=== PATIENT | male | born 1965 | race Caucasian/White ===

== ENCOUNTER 2019-08-13 11:27 | Outpatient (CLI) | payer BC, SELFPAY ==
[2019-08-13 12:07] LABS: Influenza Control Positive
== END 2019-08-13 11:28 | disposition home or self-care (01) ==
PROVIDERS: PCP Physician Assistant; Visit Provider Physician Assistant
DX: R68.89 Other general symptoms and signs (principal)
CPT/HCPCS: 87804

== ENCOUNTER 2019-10-12 09:08 | Outpatient (CLI) | payer BC, SELFPAY ==
--- NOTE | ~2019-10-12 | CT_ITS ---
EXAMINATION: CT abdomen w con DATE: 10/12/2019 10:16 INDICATION: Unspecified abdominal pain TECHNIQUE: Computed tomography (CT) of the abdomen and pelvis was performed with 100 mL Omnipaque-350 intravenous contrast. Automated exposure control and iterative reconstruction technique were employe d. The dose-length product was 318.52 mGy-cm. COMPARISON: 09/09/2018 FINDINGS: Discoid atelectasis in the bilateral lower lobes. Heart size is normal. No pericardial or pleural eff usion. There are few tiny calcified gallstones in the dependent aspect of the otherwise normal-appear ing gallbladder. No gallbladder wall thickening or pericholecystic inflammatory change to suggest acu te cholecystitis. Liver, spleen, bilateral adrenal glands and kidneys are normal. No intra or extrahe patic biliary ductal dilation. There are several loculated peripancreatic fluid collections along the body and tail of the pancreas, the largest measuring 7.7 x 7.2 x 7.8 cm positioned along the anterio r body of the pancreas with additional 2.5 cm diameter component of the collection extending an addit ional subcentimeter along the inferior margin of the body of the stomach. There are subtle regions of increased attenuation within the fluid collection which along with the thin peripheral wall would be most consistent with walled off necrosis. There is no significant inflammatory stranding surrounding the collection to elevate suspicion for superinfection. There is homogeneous parenchymal enhancement of the pancreas. No dilation of the main pancreatic duct. The portal, splenic and superior mesenteri c veins are patent. Circumaortic left renal veins. Visualized portions of the bowels are normal. Mode rate spondylosis at the thoracolumbar junction with mild spondylosis in the more cephalad and caudal thoracic and lumbar spine respectively. IMPRESSION: 1. Multiple organized peripancreatic fluid collections, the largest with heterogeneous internal atten uation most consistent with walled off necrosis and likely sequela of gallstone pancreatitis. Cannot exclude ongoing pancreatitis and would correlate with amylase and lipase levels. 2. Cholelithiasis. Reviewed, dictated and finalized at location A. IMPRESSION: 1. Multiple organized peripancreatic fluid collections, the largest with hetero geneous internal attenuation most consistent with walled off necrosis and likel y sequela of gallstone pancreatitis. Cannot exclude ongoing pancreatitis and wo uld correlate with amylase and lipase levels. 2. Cholelithiasis.
[2019-10-12 10:06] LABS: Estimated Glomerular Filt Rate 58
== END 2019-10-12 09:09 | disposition home or self-care (01) ==
PROVIDERS: PCP Internal Medicine; Visit Provider Physician Assistant
DX: R10.9 Unspecified abdominal pain (principal); K80.20 Calculus of gallbladder without cholecystitis without obstruction; R93.5 Abnormal findings on diagnostic imaging of other abdominal regions, including retroperitoneum
CPT/HCPCS: 36415; 74160; Q9967

== ENCOUNTER 2019-10-30 16:22 | Outpatient (CLI) | payer BC, SELFPAY ==
--- NOTE | ~2019-10-30 | XR_ITS ---
EXAMINATION: XR hip BI 2V w AP pelvis EXAM DATE: 10/30/2019 17:00 INDICATION: Bilateral hip pain. TECHNIQUE: Each hip imaged independently (separate right and also left hip) crosstable lateral and ' frog-leg' and frontal projections for interpretation. Frontal projection pelvis. There is no prior study for comparison. FINDINGS: No radiographic evidence of hip avascular necrosis. There are no acute fractures or disloc ations identified. There is no subcutaneous gas. The soft tissue is unremarkable. There is mild to moderate left hip, mild right hip primary osteoarthritis. Surgical clips from bilateral inguinal he rnia repairs. Pelvis is unremarkable. IMPRESSION: Mild to moderate left, mild right hip osteoarthritis. Reviewed, dictated and finalized at location A.
--- NOTE | ~2019-10-30 | XR_ITS ---
EXAMINATION: XR knee LT 3V EXAM DATE: 10/30/2019 17:00 INDICATION: No known recent injury provided at this time. Pain of the left knee. Polyarticular joint pain. TECHNIQUE: Three projections of the left knee. There is no prior study for comparison. FINDINGS: No evidence osteochondral defect or joint body in the left knee joint. There is mild prim jasvir osteoarthritis. There are no acute fractures or dislocations identified. There is no subcutaneou s gas. The soft tissue is unremarkable. There are no radiopaque foreign bodies. No joint effusion . IMPRESSION: Mild left knee osteoarthritis. Reviewed, dictated and finalized at location A.
--- NOTE | ~2019-10-30 | XR_ITS ---
EXAMINATION: XR shoulder LT min 2V EXAM DATE: 10/30/2019 16:59 INDICATION: Left shoulder pain when lifting. No known injury. TECHNIQUE: The following left shoulder projections obtained: frontal projection with internal rotatio n, frontal projection with external rotation, Grashey, and scapular Y view (4+ views). There is no p rior study for comparison. FINDINGS: No evidence of left shoulder rotator cuff calcific tendinosis. There is mild to moderate acromioclavicular joint primary osteoarthritis. There are no acute fractures or dislocations identifi ed. There is no subcutaneous gas. The soft tissue is unremarkable. There are no radiopaque foreig n bodies. IMPRESSION: Mild to moderate left acromioclavicular joint osteoarthritis. Reviewed, dictated and finalized at location A.
--- NOTE | ~2019-10-30 | XR_ITS ---
EXAMINATION: XR knee RT 3V EXAM DATE: 10/30/2019 17:00 INDICATION: No known recent injury provided at this time. Pain of the right knee. TECHNIQUE: Three projections of the right knee. There is no prior study for comparison. FINDINGS: No evidence osteochondral defect or joint body in the right knee joint. No more than min imal right knee primary osteoarthritis. No joint effusion. There are no acute fractures or dislocatio ns identified. There is no subcutaneous gas. The soft tissue is unremarkable. There are no radiop aque foreign bodies. IMPRESSION: Minimal right hand osteoarthritis. Reviewed, dictated and finalized at location A.
--- NOTE | ~2019-10-30 | XR_ITS ---
EXAMINATION: XR shoulder RT min 2V EXAM DATE: 10/30/2019 17:00 INDICATION: No known recent injury provided at this time. Pain of the right shoulder. TECHNIQUE: The following right shoulder projections obtained: frontal projection with internal rotati on, frontal projection with external rotation, Grashey, and scapular Y view (4+ views). Correlation i s made to contralateral shoulder same date. FINDINGS: No evidence of right shoulder rotator cuff calcific tendinosis. There is mild to moderate acromioclavicular joint primary osteoarthritis. This is symmetric to the contralateral side. There are no acute fractures or dislocations identified. There is no subcutaneous gas. The soft tissue is unremarkable. There are no radiopaque foreign bodies. Unremarkable glenohumeral joint. IMPRESSION: Mild to moderate right acromioclavicular joint osteoarthritis. Reviewed, dictated and finalized at location A.
== END 2019-10-30 16:23 | disposition home or self-care (01) ==
PROVIDERS: PCP Physician Assistant; Visit Provider Physician Assistant
DX: M25.519 Pain in unspecified shoulder (principal); M25.559 Pain in unspecified hip; M25.569 Pain in unspecified knee; M16.11 Unilateral primary osteoarthritis, right hip; M17.12 Unilateral primary osteoarthritis, left knee; M19.041 Primary osteoarthritis, right hand; M19.011 Primary osteoarthritis, right shoulder; M19.012 Primary osteoarthritis, left shoulder
CPT/HCPCS: 73030; 73521; 73562

== ENCOUNTER → 2019-12-06 11:29 | Outpatient (CLI) | payer BC, SELFPAY ==
--- NOTE | ~2019-12-06 | XR_ITS ---
EXAMINATION: HAND-DOMENICO ARTHRITIS 3+VIEWS DATE: 12/06/2019 12:09 INDICATION: Unspecified osteoarthritis TECHNIQUE: Posteroanterior, lateral, and oblique views of the left and of the right hands as well as a ballcatchers view of both hands were obtained. COMPARISON: None. FINDINGS: Alignment is normal. No fracture. Polyarticular osteoarthritis which is of moderate severity at the b ilateral first interphalangeal joints and mild at the bilateral first carpal metacarpal, bilateral se cond and third metacarpophalangeal and multiple distal interphalangeal joints. No erosions to suggest an inflammatory arthritis. Soft tissues are unremarkable. IMPRESSION: 1. Polyarticular osteoarthritis, moderate severity at the bilateral first carpometacarpal joints and otherwise mild. Reviewed, dictated and finalized at location A. IMPRESSION: 1. Polyarticular osteoarthritis, moderate severity at the bilateral first carpo metacarpal joints and otherwise mild.
--- NOTE | ~2019-12-06 | XR_ITS ---
EXAMINATION: XR knee RT 3V DATE: 12/06/2019 12:09 INDICATION: Unspecified osteoarthritis, unspecified site. TECHNIQUE: 3 views of right knee were obtained. COMPARISON: Right knee radiograph 10/30/2019 FINDINGS: Bone alignment is normal. No fracture. There is mild osteoarthritis of medial and patellofe moral compartments. No knee joint effusion. IMPRESSION: 1. Mild right knee osteoarthritis. Reviewed, dictated and finalized at location A.
--- NOTE | ~2019-12-06 | XR_ITS ---
XR foot RT standing 2V DATE: 12/06/2019 12:09 INDICATION: Osteoarthritis TECHNIQUE: Weightbearing AP and lateral views of right foot COMPARISON: None FINDINGS: There is mild periarticular spurring of the distal tibia at the tibiotalar joint. There is mild osteoarthritis at the first metatarsophalangeal joint, with mild joint space narrowing and mild spurring. No fracture or dislocation, periosteal reaction or bone destruction. IMPRESSION: Osteoarthritis at the tibiotalar and first metatarsophalangeal joints Reviewed, dictated and finalized at location B. IMPRESSION: Osteoarthritis at the tibiotalar and first metatarsophalangeal join ts
--- NOTE | ~2019-12-06 | XR_ITS ---
EXAMINATION: XR knee LT 3V DATE: 12/06/2019 12:09 INDICATION: Unspecified osteoarthritis, unspecified site. TECHNIQUE: 3 views of left knee were obtained. COMPARISON: Left knee radiographs 10/30/2019 FINDINGS: Bone alignment is normal. No fracture. There is mild tricompartmental osteoarthritis. No kn ee joint effusion. IMPRESSION: 1. Mild left knee osteoarthritis. Reviewed, dictated and finalized at location A.
--- NOTE | ~2019-12-06 | XR_ITS ---
XR foot LT standing 2V DATE: 12/06/2019 12:09 INDICATION: Osteoarthritis TECHNIQUE: AP and lateral weightbearing views COMPARISON: 08/02/2016 left foot FINDINGS: There is mild osteoarthritis at the first metatarsophalangeal joint. No fracture or dislocation, periosteal reaction or bone destruction. IMPRESSION: Mild osteoarthritis at first metatarsophalangeal joint Reviewed, dictated and finalized at location B.
--- NOTE | ~2019-12-06 | XR_ITS ---
XR hip BI 2V w AP pelvis DATE: 12/06/2019 12:09 INDICATION: Bilateral hip pain TECHNIQUE: AP pelvis. AP and lateral views of each hip COMPARISON: 10/30/2019 pelvis and bilateral hips FINDINGS: Status post bilateral inguinal hernia repair. No fracture or bone destruction of the pelvis. The pubic symphysis and sacroiliac joints are intact. There is mild osteoarthritis at the hip joints, left greater than right. IMPRESSION: Mild osteoarthritis of the hip joints, left greater than right Reviewed, dictated and finalized at location B.
== END ==
PROVIDERS: PCP Physician Assistant; Visit Provider Internal Medicine
DX: M19.041 Primary osteoarthritis, right hand (principal); M19.042 Primary osteoarthritis, left hand; M16.0 Bilateral primary osteoarthritis of hip; M19.071 Primary osteoarthritis, right ankle and foot; M19.072 Primary osteoarthritis, left ankle and foot; M17.0 Bilateral primary osteoarthritis of knee
CPT/HCPCS: 73130; 73521; 73562; 73620

== ENCOUNTER 2020-02-10 15:58 | Outpatient (CLI) | payer BC, SELFPAY ==
--- NOTE | ~2020-02-10 | MR_ITS ---
EXAMINATION: MR sacroiliac jjose j wo/w con DATE: 02/10/2020 17:36 INDICATION: Unspecified osteoarthritis, unspecified site. Low back pain. Pain in the hips. TECHNIQUE: Magnetic resonance imaging (MRI) of the sacroiliac joints was performed without and with 1 7 mL MultiHance intravenous contrast. Sequences included sagittal PD-weighted FSE, coronal oblique T1 -weighted FSE, T1-weighted FS FSE, T2-weighted FS FSE, and T2-weighted FSE, axial oblique T2-weighted FS FSE, and T1-weighted FSE, and postcontrast coronal oblique and axial oblique T1-weighted FS FSE. COMPARISON: Pelvis and hip radiographs 12/06/2019, CT abdomen 10/12/2019 FINDINGS: Bone alignment is normal. No acute fracture. There is mild lumbar spondylosis. There is a c hronic right L5 pars defect. There is mild osteoarthritis of the sacroiliac joints. The prostate is m ildly enlarged. IMPRESSION: 1. Mild osteoarthritis of the sacroiliac joints. No evidence of inflammatory arthropathy. Reviewed, dictated and finalized at location A. IMPRESSION: 1. Mild osteoarthritis of the sacroiliac joints. No evidence of inflammatory ar thropathy.
--- NOTE | ~2020-02-10 | XR_ITS ---
EXAMINATION: XR chest 2V DATE: 02/10/2020 17:28 INDICATION: Dyspnea. TECHNIQUE: Frontal and lateral views of the chest were obtained. COMPARISON: Chest 2 views 09/09/2018 FINDINGS: The chest demonstrates clear lungs without pneumonia, pleural effusion, or pneumothorax. Th e heart size is normal. There is mild chronic anterior wedging of multiple lower thoracic vertebral b odies. IMPRESSION: 1. No acute cardiopulmonary disease. Reviewed, dictated and finalized at location A.
--- NOTE | ~2020-02-10 | XR_ITS ---
EXAMINATION: XR lumbar spine 2-3V DATE: 02/10/2020 17:28 INDICATION: Low back pain. TECHNIQUE: 3 views of lumbar spine were obtained. COMPARISON: CT abdomen 10/12/2019 FINDINGS: There is 9 degrees dextrocurvature of lumbar spine. There is chronic anterior wedging of T1 1 and T12 vertebral bodies. There is mildly decreased disc height at T11-T12, severely decreased disc height at T12-L1, and mildly decreased disc height at L4-L5. There is multilevel facet joint osteoar thritis, severe on the left at L5-S1. IMPRESSION: 1. Severe thoracolumbar spondylosis. Reviewed, dictated and finalized at location A.
[2020-02-10 16:30] LABS: Estimated Glomerular Filt Rate 58
== END 2020-02-10 15:59 | disposition home or self-care (01) ==
PROVIDERS: PCP Physician Assistant; Visit Provider Internal Medicine
DX: M15.9 Polyosteoarthritis, unspecified (principal); R06.00 Dyspnea, unspecified; M47.895 Other spondylosis, thoracolumbar region; M47.898 Other spondylosis, sacral and sacrococcygeal region
CPT/HCPCS: 71046; 72100; 72197; A9577

== ENCOUNTER 2020-03-13 12:35 | Outpatient (CLI) | payer BC, SELFPAY ==
--- NOTE | ~2020-03-13 | MR_ITS ---
EXAMINATION: MR thoracic spine wo con EXAM DATE: 03/13/2020 13:48 INDICATION: Thoracic pain TECHNIQUE: Multi-sequential, multiplanar MR images of the thoracic spine were obtained without contra st. Sagittal T1, T2, T2 fat saturation, axial T2 weighted images reviewed. There is no prior study for comparison. FINDINGS: There is mildly diffusely heterogeneous bone marrow signal, with scattered hemangiomas. No appreciable thoracic scoliosis. The spinal cord signal intensity and intrinsic morphology is normal. There is mild to moderate thoracic facet arthropathy. Mild scattered thoracic disc disease with sever al small protrusions not causing appreciable central canal stenosis, central canal is widely patent. Paraspinal soft tissue is unremarkable. The following levels specifically discussed: T8-9: Moderate right neural foraminal stenosis and mild left neural foraminal stenosis. T10-11: Moderate left neural foraminal stenosis. Other neural foramen have mild or no stenosis. IMPRESSION: Mild to moderate thoracic spondylosis. Reviewed, dictated and finalized at location A.
--- NOTE | ~2020-03-13 | MR_ITS ---
EXAMINATION: MR lumbar spine wo con DATE: 03/13/2020 13:48 INDICATION: Polyarticular osteoarthritis, unspecified. Low back pain. TECHNIQUE: Magnetic resonance imaging (MRI) of the lumbar spine was performed without intravenous con trast. Sequences included sagittal T2-weighted FSE, sagittal T2-weighted FS FSE, sagittal T1-weighted FSE, and axial T2-weighted FSE. COMPARISON: None FINDINGS: There is 6 degrees dextrocurvature of lumbar spine. There is mild chronic anterior wedging of T12 and L1 vertebral bodies. There is severely decreased disc height at T12-L1 and mildly decrease d disc height at L4-L5. The distal spinal cord signal intensity is normal. The conus medullaris is at T12-L1. The following disc levels are specifically discussed: T12-L1: The disc is bulging and has an annular fissure. There is mild bilateral facet joint osteoarth ritis. There is mild bilateral neural foraminal stenosis. There is mild central canal stenosis. L1-L2: The disc is bulging. There is mild bilateral facet joint osteoarthritis. There is mild bilater al neural foraminal stenosis. There is mild central canal stenosis. L2-L3: The disc does not extend beyond the endplate margin. There is severe right and moderate left f acet joint osteoarthritis. There is no neural foraminal stenosis. There is no central canal stenosis. L3-L4: The disc is mildly bulging. There is severe right and moderate left facet joint osteoarthritis . There is mild bilateral neural foraminal stenosis. There is no central canal stenosis. L4-L5: The disc is bulging and has an annular fissure. There is mild bilateral facet joint osteoarthr itis. There is moderate right and mild left neural foraminal stenosis. There is mild central canal st enosis. L5-S1: The disc does not extend beyond the endplate margin. There is moderate right and severe left f acet joint osteoarthritis. There is mild left neural foraminal stenosis. There is no central canal st enosis. IMPRESSION: 1. Severe spondylosis at T12-L1 and mild to moderate spondylosis at other levels. Reviewed, dictated and finalized at location A. IMPRESSION: 1. Severe spondylosis at T12-L1 and mild to moderate spondylosis at other level s.
== END 2020-03-13 12:36 | disposition home or self-care (01) ==
LOC: ANHIMG 12:37
PROVIDERS: PCP Internal Medicine; Visit Provider Internal Medicine
DX: M47.815 Spondylosis without myelopathy or radiculopathy, thoracolumbar region (principal); M47.817 Spondylosis without myelopathy or radiculopathy, lumbosacral region
CPT/HCPCS: 72146; 72148

== ENCOUNTER 2020-03-23 10:37 | Outpatient (CLI) | payer BC, SELFPAY ==
--- NOTE | ~2020-03-23 | NM_ITS ---
EXAMINATION: NM bone scan whole body DATE: 03/23/2020 14:12 INDICATION: Abnormal findings diagnostic imaging. TECHNIQUE: 22.28 mCi Tc-99m HDP was administered intravenously. Delayed whole-body scintigrams were obtained. COMPARISON: Thoracic and lumbar spine MR dated 03/13/2020 and chest radiograph dated 02/10/2020 FINDINGS: Band of uptake associated with severe degenerative disc disease at T12-L1 where there is prominent fi brovascular degenerative endplate changes on prior MRI. Additional likely degenerative joint centered uptake at the bilateral acromioclavicular and sternoclavicular joints as well as bilateral facet zoran nts in the mid to upper cervical spine. Additional prominent uptake associated with severe osteoarthr itis at the left L5-S1 facet joint. Mild increased uptake associated with mild costochondral hypertro phic change at the bilateral anterior first ribs. There is mild uptake along the diaphyses of the angelo ateral femurs and tibia which could be seen with hypertrophic pulmonary osteoarthropathy. No imaging for comparison. IMPRESSION: 1. Multiple foci of likely degenerative joint and disc centered uptake as detailed above. 2. Mild increased uptake along the bilateral femoral and tibial metaphyses which could be related to hypertrophic pulmonary osteoarthropathy although prior chest radiograph appeared normal. Consider rad iographs of the femur and tibia for correlation. Reviewed, dictated and finalized at location B. IMPRESSION: 1. Multiple foci of likely degenerative joint and disc centered uptake as detai led above. 2. Mild increased uptake along the bilateral femoral and tibial metaphyses whic h could be related to hypertrophic pulmonary osteoarthropathy although prior ch est radiograph appeared normal. Consider radiographs of the femur and tibia for correlation.
== END 2020-03-23 10:38 | disposition home or self-care (01) ==
PROVIDERS: PCP Physician Assistant; Visit Provider Internal Medicine
DX: R93.7 Abnormal findings on diagnostic imaging of other parts of musculoskeletal system (principal)
CPT/HCPCS: 78306; A9561

== ENCOUNTER 2020-03-24 14:02 | Outpatient (CLI) | payer SELFPAY ==
--- NOTE | ~2020-03-24 | XR_ITS ---
EXAMINATION: XR femur LT min 2V, XR femur RT min 2V, XR tibia fibula LT 2V, XR tibia fibula RT 2V DATE: 03/24/2020 14:45 INDICATION: Abnormal uptake along the bilateral femurs and tibias on prior bone scan. TECHNIQUE: 1. AP and lateral views of the left femur were obtained on overlapping proximal and distal images. 2. AP and lateral views of the left lower leg were obtained including cone-down AP view of the ankle. 3. AP and lateral views of the right femur were obtained on overlapping proximal and distal images. 4. AP and lateral views of the right lower leg were obtained including coned-down AP view of the ankl e. COMPARISON: None. FINDINGS: Normal alignment at both lower limbs from the hips through the ankles. No fracture or suspected avasc ular necrosis. No evident periosteal reaction to suggest hypertrophic pulmonary osteoarthropathy. No other suspicious lytic or blastic bone lesions. Mild nonuniform joint space narrowing at the left hip with small marginal ossified spotty femoral head consistent with mild osteoarthritis. The right hip, bilateral knee and ankle joint spaces appear relatively preserved. No knee or ankle joint effusion o n either the left or right. Postoperative changes of bilateral inguinal hernia repairs. Phlebolith in the left hemipelvis. Soft tissues are otherwise unremarkable. IMPRESSION: 1. Mild left hip osteoarthritis. No other osseous abnormality at the bilateral upper or lower legs. S pecifically no periostitis to suggest hypertrophic pulmonary osteoarthropathy. Reviewed, dictated and finalized at location B. IMPRESSION: 1. Mild left hip osteoarthritis. No other osseous abnormality at the bilateral upper or lower legs. Specifically no periostitis to suggest hypertrophic pulmon jasvir osteoarthropathy. IMPRESSION: 1. Mild left hip osteoarthritis. No other osseous abnormality at the bilateral upper or lower legs. Specifically no periostitis to suggest hypertrophic pulmon jasvir osteoarthropathy. IMPRESSION: 1. Mild left hip osteoarthritis. No other osseous abnormality at the bilateral upper or lower legs. Specifically no periostitis to suggest hypertrophic pulmon jasvir osteoarthropathy.
== END 2020-03-24 14:03 | disposition home or self-care (01) ==
PROVIDERS: PCP Physician Assistant; Visit Provider Physician Assistant
DX: R94.8 Abnormal results of function studies of other organs and systems (principal); M16.12 Unilateral primary osteoarthritis, left hip
CPT/HCPCS: 73552; 73590

== ENCOUNTER → 2020-07-20 08:46 | Outpatient (CLI) | payer OTHER, SELFPAY ==
--- NOTE | ~2020-07-20 | MR_ITS ---
EXAMINATION: MR cervical spine wo con DATE: 07/20/2020 09:42 INDICATION: Myelopathy. Neck pain. TECHNIQUE: Magnetic resonance imaging (MRI) of the cervical spine was performed without intravenous c ontrast. Sequences included sagittal T2-weighted FSE, sagittal STIR FSE, sagittal T1-weighted FSE, ax ial MERGE, and axial T2-weighted FSE. COMPARISON: None FINDINGS: There is 4 degrees levocurvature of cervicothoracic spine. There is kyphosis of cervical sp ine. Vertebral body heights are normal. There is moderately decreased disc height at C4-C5, severely decreased disc height at C5-C6, and mildly decreased disc height at C6-C7. The spinal cord signal int ensity is normal. The following disc levels are specifically discussed: C2-C3: There is a central protrusion. There is mild bilateral uncovertebral joint osteoarthritis. The re is severe bilateral facet joint osteoarthritis. There is mild bilateral neural foraminal stenosis. There is mild central canal stenosis. C3-C4: The disc does not extend beyond the endplate margin. There is mild left uncovertebral joint os teoarthritis. There is moderate right and severe left facet joint osteoarthritis. There is moderate l eft neural foraminal stenosis. There is no central canal stenosis. C4-C5: The disc is bulging. There is severe bilateral uncovertebral joint osteoarthritis. There is se gaby bilateral facet joint osteoarthritis. There is moderate bilateral neural foraminal stenosis. The re is mild central canal stenosis with ventral indentation of spinal cord. C5-C6: The disc is bulging. There is severe bilateral uncovertebral joint osteoarthritis. There is no facet joint osteoarthritis. There is moderate bilateral neural foraminal stenosis. There is mild rashard tral canal stenosis. C6-C7: There is a central protrusion. There is mild left uncovertebral joint osteoarthritis. There is severe bilateral facet joint osteoarthritis. There is mild bilateral neural foraminal stenosis. Ther e is mild central canal stenosis. C7-T1: The disc does not extend beyond the endplate margin. There is no uncovertebral joint osteoarth ritis. There is severe bilateral facet joint osteoarthritis. There is mild right neural foraminal rodolfo nosis. There is no central canal stenosis. IMPRESSION: 1. Severe cervical spondylosis. Reviewed, dictated and finalized at location A. [employer]
== END ==
PROVIDERS: PCP Physician Assistant; Visit Provider Nurse Practitioner Acute Care
DX: G95.9 Disease of spinal cord, unspecified (principal); M47.892 Other spondylosis, cervical region
CPT/HCPCS: 72141

== ENCOUNTER → 2020-07-20 09:00 | Outpatient (CLI) | payer OTHER, SELFPAY ==
--- NOTE | ~2020-07-20 | XR_ITS ---
EXAMINATION: XR shoulder LT min 2V EXAM DATE: 07/20/2020 10:00 INDICATION: No known recent injury provided at this time. Pain of the shoulders bilaterally. TECHNIQUE: The following left shoulder projections obtained: frontal projection with internal rotatio n, frontal projection with external rotation, Grashey, and axillary (4+ views). Comparison is made to prior examination from 10/30/2019. FINDINGS: No evidence of left shoulder rotator cuff calcific tendinosis. There is moderate acromio clavicular joint primary osteoarthritis. There are no acute fractures or dislocations identified. Th ere is no subcutaneous gas. The soft tissue is unremarkable. There are no radiopaque foreign bishnu s. IMPRESSION: Moderate left acromioclavicular joint osteoarthritis. Reviewed, dictated and finalized at location B. TESTER
--- NOTE | ~2020-07-20 | XR_ITS ---
EXAMINATION: XR shoulder RT min 2V EXAM DATE: 07/20/2020 10:00 INDICATION: Bilateral shoulder pain. TECHNIQUE: The following right shoulder projections obtained: frontal projection with internal rotati on, frontal projection with external rotation, Grashey, and axillary (4+ views). Comparison is made t o prior examination from 10/30/2019. FINDINGS: No evidence of right shoulder rotator cuff calcific tendinosis. There is moderate acromi oclavicular joint primary osteoarthritis. There are no acute fractures or dislocations identified. T here is no subcutaneous gas. The soft tissue is unremarkable. There are no radiopaque foreign bodi es. IMPRESSION: Moderate right acromioclavicular joint osteoarthritis. Reviewed, dictated and finalized at location B. [employer]
== END ==
PROVIDERS: PCP Physician Assistant; Visit Provider Nurse Practitioner Adult Health
DX: M19.012 Primary osteoarthritis, left shoulder (principal); M19.011 Primary osteoarthritis, right shoulder
CPT/HCPCS: 73030

== ENCOUNTER 2021-02-09 01:18 | Day surgery (SDC) | payer OTHER, SELFPAY ==
[2021-02-03 13:58] VITALS: BMI 25.4
[2021-02-09 08:11] VITALS: BP 142/105; PULSE 115; RESP 20; TEMP 36.5; O2SAT 99; BMI 24.0
[2021-02-09] MEDS: LACTATED RINGERS 1,000 ML 150 ML IV CONT (08:14)
--- NOTE | 2021-02-09 08:35 | WPDANESEPPF ---
Anes - Initial Pre Proc Eval Procedure: Operation Date: 02/09/21 09:30 Proposed Procedures p Screening Colonoscopy - Shashank Madsen MD Date/Time: 02/09/21 08:35 Surgeon: Shashank Madsen MD Pre Op Diagnosis: neoplasm screening Z12.11 Patient Data Age: 55 Gender: M Height: 1.83 m Weight: 80.3 kg Last Vital Signs Temp 97.7 F 02/09/21 08:11 Pulse 115 H 02/09/21 08:11 Resp 20 02/09/21 08:11 BP 142/105 H 02/09/21 08:11 Pulse Ox 99 02/09/21 08:11 Allergies Allergy/AdvReac Type Severity Reaction Status Date / Time amoxicillin Allergy Intermediate rash Verified 02/09/21 08:10 Penicillins Allergy Intermediate Pruritic Verified 02/09/21 08:10 rash Home Medications Medication Instructions Recorded Confirmed Type duloxetine 30 mg capsule,delayed 30 mg PO BID #60 cap 12/24/19 02/09/21 Rx release trazodone 50 mg tablet 50 mg PO .QHS PRN #90 tablet 02/27/20 02/09/21 Rx lisinopril 10 mg tablet 10 mg PO DAILY #90 tablet 07/10/20 02/09/21 Rx pantoprazole 40 mg tablet,delayed 40 mg PO QAM #90 tablet 07/10/20 02/09/21 Rx release folic acid 1 mg tablet 1 mg PO DAILY #90 tablet 08/17/20 02/09/21 Rx thiamine HCl (vitamin B1) 100 mg 100 mg PO DAILY #90 tablet 08/17/20 02/09/21 Rx tablet tizanidine 4 mg tablet See Rx Instructions PO .COMPLEX 12/21/20 02/09/21 Rx PRN #60 tablet metoprolol tartrate 25 mg PO BID 02/03/21 02/09/21 History bb-exvk-ymntz-lycopene-ginkgo 1 tablet PO DAILY 02/03/21 02/09/21 History [Daily Multiple For Men 50+] naltrexone microspheres [Vivitrol] 380 mg IM MONTHLY 02/03/21 02/09/21 History Patient hx anesthesia problems: none Family hx anesthesia problems: none PMFSH Past Medical History Medical History Acute pulmonary embolism JOSE (acute kidney injury) Angioedema (~08/2019) Bilateral hand pain Counseling on health promotion and disease prevention Dyspnea Encounter for medication management Fracture of vertebra due to osteoporosis with routine healing Generalized osteoarthritis of multiple sites GERD (gastroesophageal reflux disease) H/O blood clots H/O: HTN (hypertension) History of GI bleed Hypercholesteremia Inflammatory arthritis (~08/2019) Pancreatitis Pneumonia PUD (peptic ulcer disease) Thrombocytopenia (~08/2019) Surgical History Surgical History History of appendectomy Family History Family History Mother Hypertension Sibling Patient's brother is in good health Father Family history of pancreatic cancer Patient's father is Social History Social History Smoking packs per day: 0.5 Smoking cigarettes per day: 10.0 Years smoked: 35 Smoking pack-years: 17.50 Smoking status: Current every day smoker Tobacco type: cigarettes Second hand tobacco smoke exposure: No Alcohol intake: current Drinks per week: 1 Alcohol use details: SHOT Substance use: current Substance use type: marijuana Other substance usage details: MEDICAL CARD-DAILY FOR BACK PAIN Living arrangements: with family Additional occupation/education comments: [employer] Gender identity (if verbalized by the patient): Male Spiritual care concerns: No Anes - Eval Final PreProcedure Day of Procedure 02/09/21 08:35 Patient weight: normal Heart: regular rate and rhythm Lungs: clear to auscultation Airway: Mallampati scale class II Neurological: alert and oriented Last oral intake: >/= 8 hours ASA classification: III Emergent: no Anesthetic plan: proceed Anesthesia type and monitoring: general GIVS and standard monitoring Informed Consent: The patient's anesthetic plan and its attendant risks and benefits were discussed with the patient/family/POA. Questions wer
--- NOTE | 2021-02-09 08:58 | PM.HPGS ---
History of Present Illness History of Present Illness Consent: Risks, benefits, and alternatives have been discussed and questions answered. Patient agrees to proceed with procedure. Chief complaint: neoplasm screening Z12.11 Narrative: Garrison Norman is a 55 year old male here for first screening colonoscopy Review of Systems Constitutional: Constitutional: Denies headache(s) and Denies weakness Eyes: Eyes: Denies blurry vision ENT: Reports Normal hearing present, Denies headache(s) and Denies neck pain Cardiovascular: Cardiovascular: Denies chest pain and Denies dyspnea Respiratory: Respiratory: Denies dyspnea Gastrointestinal: Gastrointestinal: Reports no additional gastrointestinal complaints Genitourinary: Genitourinary: Denies dysuria Musculoskeletal: Musculoskeletal: Denies neck pain Integumentary/Breasts: Skin/Breast: Denies dry skin Neurologic: Reports Normal hearing present, Denies headache(s) and Denies weakness Psychiatric: Psychiatric: Denies anxiety Endocrine: Endocrine: Denies change in body appearance Hematologic/Lymphatic: Hematologic/Lymphatic: Denies easy bleeding Allergic/Immunologic: Allergic/Immunologic: Denies urticaria PMF Past Medical History Medical History (Updated 02/09/21 @ 08:59 by Shashank Madsen MD) Acute pulmonary embolism JOSE (acute kidney injury) Angioedema (~08/2019) Bilateral hand pain Colon cancer screening Counseling on health promotion and disease prevention Dyspnea Encounter for medication management Fracture of vertebra due to osteoporosis with routine healing Generalized osteoarthritis of multiple sites GERD (gastroesophageal reflux disease) H/O blood clots H/O: HTN (hypertension) History of GI bleed Hypercholesteremia Inflammatory arthritis (~08/2019) Pancreatitis Pneumonia PUD (peptic ulcer disease) Thrombocytopenia (~08/2019) Surgical History Surgical History History of appendectomy Family History Family History Mother Hypertension Sibling Patient's brother is in good health Father Family history of pancreatic cancer Patient's father is Social History Social History Smoking packs per day: 0.5 Smoking cigarettes per day: 10.0 Years smoked: 35 Smoking pack-years: 17.50 Smoking status: Current every day smoker Tobacco type: cigarettes Second hand tobacco smoke exposure: No Alcohol intake: current Drinks per week: 1 Alcohol use details: SHOT Substance use: current Substance use type: marijuana Other substance usage details: MEDICAL CARD-DAILY FOR BACK PAIN Living arrangements: with family Additional occupation/education comments: [employer] Gender identity (if verbalized by the patient): Male Spiritual care concerns: No Meds Home Medications and Allergies Home Medications Medication Instructions Recorded Confirmed Type duloxetine 30 mg capsule,delayed 30 mg PO BID #60 cap 12/24/19 02/09/21 Rx release trazodone 50 mg tablet 50 mg PO .QHS PRN #90 tablet 02/27/20 02/09/21 Rx lisinopril 10 mg tablet 10 mg PO DAILY #90 tablet 07/10/20 02/09/21 Rx pantoprazole 40 mg tablet,delayed 40 mg PO QAM #90 tablet 07/10/20 02/09/21 Rx release folic acid 1 mg tablet 1 mg PO DAILY #90 tablet 08/17/20 02/09/21 Rx thiamine HCl (vitamin B1) 100 mg 100 mg PO DAILY #90 tablet 08/17/20 02/09/21 Rx tablet tizanidine 4 mg tablet See Rx Instructions PO .COMPLEX 12/21/20 02/09/21 Rx PRN #60 tablet metoprolol tartrate 25 mg PO BID 02/03/21 02/09/21 History xe-qpyl-eikvv-lycopene-ginkgo 1 tablet PO DAILY 02/03/21 02/09/21 History [Daily Multiple For Men 50+] naltrexone microspheres [Vivitrol] 380 mg IM MONTHLY 02/03/21 02/09/21 History Allergies Allergy/AdvReac Type Severity Reaction Status D
[2021-02-09 09:37] VITALS: BP 113/89; PULSE 91; RESP 18; O2SAT 95
[2021-02-09 09:47] VITALS: BP 116/89; PULSE 79; RESP 18; O2SAT 95
[2021-02-09 09:57] VITALS: BP 134/102; PULSE 74; RESP 15; O2SAT 99
== END 2021-02-09 10:12 | disposition home or self-care (01) ==
PROVIDERS: PCP Physician Assistant; Visit Provider Internal Medicine Gastroenterology
PROC: 0DJD8ZZ Inspection of Lower Intestinal Tract, Via Natural or Artificial Opening Endoscopic (ICD-10-PCS; CPT 45378; principal; 2021-02-09 09:30)
DX: Z12.11 Encounter for screening for malignant neoplasm of colon (principal); D12.3 Benign neoplasm of transverse colon; K63.5 Polyp of colon; K64.8 Other hemorrhoids; K21.9 Gastro-esophageal reflux disease without esophagitis; I10 Essential (primary) hypertension; M19.90 Unspecified osteoarthritis, unspecified site; E78.00 Pure hypercholesterolemia, unspecified; Z87.11 Personal history of peptic ulcer disease; Z86.711 Personal history of pulmonary embolism; D69.6 Thrombocytopenia, unspecified; Z87.448 Personal history of other diseases of urinary system; Z86.718 Personal history of other venous thrombosis and embolism; F12.90 Cannabis use, unspecified, uncomplicated; Z87.891 Personal history of nicotine dependence
CPT/HCPCS: 45385; 88305; J2704; J7120

== ENCOUNTER 2021-10-20 07:55 | Outpatient (CLI) | payer OTHER, SELFPAY | END 2021-10-20 07:56 | disposition home or self-care (01) | LOC: ANHAUDASC 08:08 | PROVIDERS: PCP Physician Assistant; Visit Provider Otolaryngology | DX: H90.3 Sensorineural hearing loss, bilateral (principal) | CPT/HCPCS: 92557; 92567 ==

== ENCOUNTER 2021-11-19 01:53 | Day surgery (SDC) | payer OTHER, SELFPAY ==
[2021-11-17 10:11] VITALS: BMI 24.4
--- NOTE | 2021-11-17 10:23 | SUR.PREOP ---
Report to the Outpatient Waiting Room, entrance under the green pavilion located off [facility], at time 0800 on date 11/19/21. OR Time: 1000. - You and your visitor will be asked a series of questions to screen for COVID 19 for your protection. - Only one visitor is allowed at this time. - The patient visitor is requested to leave or wait in car when not with patient. - A mask is required within the hospital. Patients may have clear liquids (water, carbonated beverages, clear teas, apple juice) until 3 hours prior to surgery with a maximum of 20 ounces. - No food from midnight until time of surgery no clear liquids after 0700 - Infants may have breast milk until 4 hours before surgery, infant formula 6 hours prior to surgery. - Children will be allowed to drink immediately following surgery. If applicable, please bring a bottle or sippy cup to assist with drinking. Juice, water, soda, and popsicles are readily available. For infants on formula, please bring formula the day of surgery. Pacifiers are allowed. Take the following medications with a SIP of water the morning of surgery: hold morning meds Medications to discontinue per physician DR douglas called in regards to meloxicam Date to take last dose Please no make-up, nail italian, hairspray, perfume, deodorant, or body powder the day of surgery. No jewelry (including any body piercings) or valuables the day of surgery, leave them at home. Please take a shower or bath the night before, or the morning of, surgery with an antibacterial soap. Wear comfortable, loose fitting clothing. Children are encouraged to wear pajamas. - Jewelry must be removed prior to entering the operating room. Rings and piercings that are not removed may be cut off. - The hospital will not accept responsibility for valuables. - Please leave all valuables, including medications, at home the day of surgery. If you are going home after surgery, a licensed commercial trailer truck driver must drive you home. - NO public transportation without another adult. - We recommend that an adult stay with you for 24 hours following discharge. - We also recommend that you do not drive, make important decision, drink alcoholic beverages, or take any drugs that were not prescribed by your health care provider for at least 24 hours after your discharge time. For Pediatric surgeries, we recommend two adults accompany the child home (only one inside the building at this time). Follow any additional instructions given to you from your surgeon. If you or anyone in your household have experienced Covid symptoms in the past week, please notify your surgeon or the nurse liaison at the phone number below for possible testing. Telephone instructions given to patient and pt's Doris and asked if any additional questions and then verbalized understanding. Patient advised to call surgeon office or pre surgery nurse liaison [phone] if any additional questions.
--- NOTE | 2021-11-18 17:23 | PM.IMHP ---
H&P: HPI History of Present Illness Date/Time: 11/18/21 17:23 Chief Complaint: Septal deviation nasal obstruction nasal congestion turbinate hypertrophy Narrative: patient presents for planned surgical procedure no change in symptoms no change in history Review of Systems Review of Systems: All systems reviewed & are unremarkable except as noted in HPI and below PMFSH Past Medical History Medical History Acute pulmonary embolism JOSE (acute kidney injury) Angioedema (~08/2019) Bilateral hand pain Colon cancer screening Counseling on health promotion and disease prevention Dyspnea Encounter for medication management Fracture of vertebra due to osteoporosis with routine healing Generalized osteoarthritis of multiple sites GERD (gastroesophageal reflux disease) H/O blood clots H/O: HTN (hypertension) History of GI bleed Hypercholesteremia Inflammatory arthritis (~08/2019) Pancreatitis Pneumonia PUD (peptic ulcer disease) Thrombocytopenia (~08/2019) Surgical History Surgical History History of appendectomy Family History Family History Mother Hypertension Sibling Patient's brother is in good health Father Family history of pancreatic cancer Patient's father is Social History Social History Smoking packs per day: 1 Smoking cigarettes per day: 20.0 Years smoked: 35 Smoking pack-years: 35.00 Smoking status: Current every day smoker Tobacco type: cigarettes Second hand tobacco smoke exposure: No Alcohol intake: former Drinks per week: 1 Alcohol use details: SHOT Substance use: current Substance use type: marijuana Other substance usage details: MEDICAL CARD-DAILY FOR BACK PAIN Living arrangements: with family Additional occupation/education comments: [employer] Gender identity (if verbalized by the patient): Male Spiritual care concerns: No Meds Home Medications and Allergies Home Medications Medication Instructions Recorded Confirmed Type thiamine HCl (vitamin B1) 100 mg 100 mg PO DAILY #90 tabs 08/17/20 11/17/21 Rx tablet ciotxcha-eblw-wpnzc acid 400 1 tablet PO DAILY 02/03/21 11/17/21 History mcg-lycopene 600 mcg-ginkgo 120 mg tablet naltrexone microspheres 380 mg 380 mg IM MONTHLY 02/03/21 11/17/21 History intramuscular suspension,extended release (Vivitrol) lipase 10,500-protease 1 cap PO TID #90 caps 04/27/21 11/17/21 Rx 35,500-amylase 61,500 unit capsule,delayed rel (Pancreaze) duloxetine 30 mg capsule,delayed 30 mg PO BID #60 caps 08/18/21 11/17/21 Rx release (Cymbalta) pantoprazole 40 mg tablet,delayed 40 mg PO QAM #90 tabs 09/06/21 11/17/21 Rx release trazodone 50 mg tablet 50 mg PO .QHS PRN insomnia #90 tabs 09/06/21 11/17/21 Rx fenofibric acid (choline) 135 mg 135 mg PO DAILY #90 caps 09/13/21 11/17/21 Rx capsule,delayed release lisinopril 10 mg tablet 10 mg PO DAILY #90 tabs 09/15/21 11/17/21 Rx azelastine 137 mcg (0.1 %) nasal 1 spray intranasal Q12H #30 mL 10/06/21 11/17/21 Rx spray aerosol fluticasone propionate 50 1 - 2 spray intranasal BID #16 mL 10/06/21 11/17/21 Rx mcg/actuation nasal spray,suspension (Flonase Allergy Relief) meloxicam 7.5 mg tablet 7.5 mg PO DAILY 10/06/21 11/17/21 History folic acid 1 mg tablet See Rx Instructions .Route 10/28/21 11/17/21 Rx .COMPLEX #90 tabs tizanidine 4 mg tablet See Rx Instructions PO .COMPLEX 11/01/21 11/17/21 Rx PRN muscle spasticity #60 tabs Allergies Allergy/AdvReac Type Severity Reaction Status Date / Time amoxicillin Allergy Intermediate rash Verified 11/03/21 07:37 Penicillins Allergy Intermediate Pruritic Verified 11/03/21 07:37 rash Exam Narrative: normally ENT ex
[2021-11-19] VITALS (12 sets, daily range): BP systolic 120–165; BP diastolic 84–107; PULSE 68–90; RESP 11–16; TEMP 36.1–36.2; O2SAT 95–100
--- NOTE | 2021-11-19 06:23 | ECG_ITS ---
Measurements Intervals [place] Rate: 76 P: 25 UT: 150 QRS: -22 QRSD: 91 T: 29 QT: 384 QTc: 433 Interpretive Statements SINUS RHYTHM WITH SINUS ARRHYTHMIA BORDERLINE LEFT AXIS DEVIATION [QRS AXIS < -20] COMPARED TO ECG 09/09/2018 09:01:32 HEART RATE IS REDUCED PEAK TO T-WAVE ABNORMALITY IS IMPROVED Electronically Signed On 11-19-2021 16:44:41 CDT by Jack Lopes M.D.
--- NOTE | 2021-11-19 07:22 | WPDHPUPDATE1 ---
History and Physical Update Update Date/Time: 11/19/21 07:22 History and Physical has been reviewed, including an updated exam of the patient. There are NO changes in the patient's condition. Risks, benefits, and alternatives have been discussed and questions answered. Patient agrees to proceed with procedure.
[2021-11-19] MEDS: ACETAMINOPHEN 500 MG TABLET 1000 MG PO (07:54)
[2021-11-19] MEDS: LACTATED RINGERS 1,000 ML 30 ML IV CONT ×2 (08:02→11:35)
--- NOTE | 2021-11-19 08:09 | WPDANESEPPF ---
Anes - Initial Pre Proc Eval Procedure: Operation Date: 11/19/21 09:00 Proposed Procedures p Bilateral Inferior Turbinectomy with Outfracture, - Andrade Schwarz MD s Septoplasty - Andrade Schwarz MD Date/Time: 11/19/21 08:09 Surgeon: Andrade Schwarz MD Pre Op Diagnosis: septal deviation, turbinate hypertrophy Patient Data Age: 56 Gender: M Height: 1.83 m Weight: 83.18 kg Last Vital Signs Temp 36.1 C L 11/19/21 07:25 Pulse 71 11/19/21 07:25 Resp 16 11/19/21 07:25 BP 120/84 11/19/21 07:25 Pulse Ox 100 11/19/21 07:25 O2 Del Method Room Air 11/19/21 07:25 Allergies Allergy/AdvReac Type Severity Reaction Status Date / Time amoxicillin Allergy Intermediate rash Verified 11/19/21 07:48 Penicillins Allergy Intermediate Pruritic Verified 11/19/21 07:48 rash Home Medications Medication Instructions Recorded Confirmed Type thiamine HCl (vitamin B1) 100 mg 100 mg PO DAILY #90 tabs 08/17/20 11/19/21 Rx tablet lvtlydtk-edgi-kysoj acid 400 1 tablet PO DAILY 02/03/21 11/19/21 History mcg-lycopene 600 mcg-ginkgo 120 mg tablet naltrexone microspheres 380 mg 380 mg IM MONTHLY 02/03/21 11/19/21 History intramuscular suspension,extended release (Vivitrol) lipase 10,500-protease 1 cap PO TID #90 caps 04/27/21 11/19/21 Rx 35,500-amylase 61,500 unit capsule,delayed rel (Pancreaze) duloxetine 30 mg capsule,delayed 30 mg PO BID #60 caps 08/18/21 11/19/21 Rx release (Cymbalta) pantoprazole 40 mg tablet,delayed 40 mg PO QAM #90 tabs 09/06/21 11/19/21 Rx release trazodone 50 mg tablet 50 mg PO .QHS PRN insomnia #90 tabs 09/06/21 11/19/21 Rx fenofibric acid (choline) 135 mg 135 mg PO DAILY #90 caps 09/13/21 11/19/21 Rx capsule,delayed release lisinopril 10 mg tablet 10 mg PO DAILY #90 tabs 09/15/21 11/19/21 Rx azelastine 137 mcg (0.1 %) nasal 1 spray intranasal Q12H #30 mL 10/06/21 11/19/21 Rx spray aerosol fluticasone propionate 50 1 - 2 spray intranasal BID #16 mL 10/06/21 11/19/21 Rx mcg/actuation nasal spray,suspension (Flonase Allergy Relief) meloxicam 7.5 mg tablet 7.5 mg PO DAILY 10/06/21 11/19/21 History folic acid 1 mg tablet See Rx Instructions .Route 10/28/21 11/17/21 Rx .COMPLEX #90 tabs tizanidine 4 mg tablet See Rx Instructions PO .COMPLEX 11/01/21 11/19/21 Rx PRN muscle spasticity #60 tabs Patient hx anesthesia problems: none Family hx anesthesia problems: none Results Review: All pre-operative results and documents have been reviewed as part of the pre-operative evaluation. [facility] Past Medical History Medical History Acute pulmonary embolism JOSE (acute kidney injury) Angioedema (~08/2019) Bilateral hand pain Colon cancer screening Counseling on health promotion and disease prevention Dyspnea Encounter for medication management Fracture of vertebra due to osteoporosis with routine healing Generalized osteoarthritis of multiple sites GERD (gastroesophageal reflux disease) H/O blood clots H/O: HTN (hypertension) History of GI bleed Hypercholesteremia Inflammatory arthritis (~08/2019) Pancreatitis Pneumonia PUD (peptic ulcer disease) Thrombocytopenia (~08/2019) Surgical History Surgical History History of appendectomy Family History Family History Mother Hypertension Sibling Patient's brother is in good health Father Family history of pancreatic cancer Patient's father is Social History Social History Smoking packs per day: 1 Smoking cigarettes per day: 20.0 Years smoked: 35 Smoking pack-years: 35.00 Smoking status: Current every day smoker Tobacco type: cigarettes Second hand tobacco smoke exposure: No Alcohol intake: former Drinks per week: 1 Alcohol use de
[2021-11-19] MEDS: ceFAZolin 2 GM/D5W 50 ML 2 GM/50 ML BAG IVPB (09:41)
[2021-11-19] MEDS: OXYMETAZOLINE HCL 0.05% NAS 15 ML BTL (*BKC) 1 SPRAY NASAL (09:51)
[2021-11-19] MEDS: LIDO 1%/EPINEPHRINE/PF 1:200,000 30 ML VIAL 10 ML XX (10:55)
[2021-11-19] MEDS: MUPIROCIN 2% OINT 22 GM TUBE 1 APPLIC EACH NARE (11:00)
[2021-11-19] MEDS: fentaNYL CITRATE INJ (*CRX) 100 MCG/2 ML VIAL 25 MCG IV PUSH ×8 (11:23→12:00)
[2021-11-19] MEDS: ONDANSETRON INJ 4 MG/2 ML VIAL IV PUSH (11:33)
--- NOTE | 2021-11-19 11:39 | W.PM.PROC2 ---
Procedure Note - Detailed Date of Procedure 11/19/21 Pre-op Diagnosis septal deviation, turbinate hypertrophy, nasal obstruction, nasal congestion Post-op Diagnosis Same Procedure Performed Endoscopic assisted septoplasty turbinate reduction with outfracture Surgeon Andrade Schwarz MD Anesthesia General Indications See above Findings Severely deviated leftward septum duplicated the patient still has normal cartilage following procedure. Turbinates hypertrophied largely bony outfractured mulberry tips as well burned back. Description of Procedure Patient identified consent verified. Patient brought operating room. Time-out performed. General anesthesia induced. Endotracheal tube secured and patient is very taped left lower lip. Patient prepped and draped for for mentioned procedure. Second time-out performed. Afrin-soaked pledgets placed let sit for 5 minutes then removed. 0 degree endoscope utilized tylor Naik 10 cc 1% lidocaine 1 100,000 parts epinephrine injected into the submucoperichondrial plane the bilateral septum was all anterior heads of inferior turbinates. Left-sided [place] incision made with 15 blade. Left mucoperichondrial flap septal flap elevated with 7 [place] suction. Osteotome utilized to cross over to the right side at this point was noted that the patient had [place] septum which was straight and duplicated cartilage likely from fractures deviated to the left. Duplication removed with osteotome. Nasal passage much more straight. Jimmy incision closed with 2 interrupted 5 0 fast gut sutures. Turbinates reduced in the submucoperichondrial plane bilaterally with middle microdebrider with 2 mm turbinate blade. Then outfractured with Richardson elevator. [place] tips cauterized with suction Bovie electrocautery at a setting of 10. Bilateral nasal passages suction to the posterior choana. Jesus splints placed sutured anteriorly using a 3-0 mattressed nylon suture. I performed all dictated portions of the procedure blood loss about 10 cc. No complications. Care the patient given Anesthesiology. Taken to PACU. Estimated Blood Loss 10 Drains No Packing No Pathology None sent Complications No immediate complications Condition Stable Disposition PACU
[2021-11-19] MEDS: HYDROmorphone HCL INJ (*CRX) 1 MG/ML SYR 0.5 MG IV PUSH ×4 (12:21→13:34)
== END 2021-11-19 13:50 | disposition home or self-care (01) ==
PROVIDERS: PCP Physician Assistant; Visit Provider Otolaryngology
PROC: (CPT 30520; principal; 2021-11-19 09:00)
PROC: (CPT 30520; 2021-11-19 09:00)
DX: J34.2 Deviated nasal septum (principal); J34.3 Hypertrophy of nasal turbinates; R09.81 Nasal congestion; J34.89 Other specified disorders of nose and nasal sinuses; I10 Essential (primary) hypertension; K21.9 Gastro-esophageal reflux disease without esophagitis; E78.00 Pure hypercholesterolemia, unspecified; K27.9 Peptic ulcer, site unspecified, unspecified as acute or chronic, without hemorrhage or perforation; F17.210 Nicotine dependence, cigarettes, uncomplicated; F12.90 Cannabis use, unspecified, uncomplicated
CPT/HCPCS: 30520; 30140; 93005; A9270; J0330; J0690; J1100; J1170; J2250; J2405; J2704; J3010; J7120

== ENCOUNTER 2022-05-21 12:05 | Emergency (ER) | payer OTHER, SELFPAY ==
[2022-05-21 12:13] VITALS: BP 107/74; PULSE 124; RESP 16; TEMP 36.9; O2SAT 99
--- NOTE | 2022-05-21 13:12 | ED.URI ---
HPI - URI/Sore Throat General Chief Complaint: Upper Respiratory Infection Stated Complaint: Cough/Sinus Time Seen by Provider: 05/21/22 13:12 Source: patient, RN notes reviewed and old records reviewed Mode of arrival: ambulatory Limitations: no limitations History of Present Illness HPI Narrative: 56-year-old male presents to the [facility] with complaints of cough and sinus pain and pressure for the last 2-3 weeks. Had been using Mucinex without relief. Worse over the last couple of days cough has now become productive. Denies fevers, chest pain, abdominal pain Related Data Home Medications Medication Instructions Recorded Confirmed dkptnbnp-[id number] acid 400 1 tablet PO DAILY 02/03/21 11/23/21 mcg-lycopene 600 mcg-ginkgo 120 mg tablet naltrexone microspheres 380 mg 380 mg IM MONTHLY 02/03/21 11/23/21 intramuscular suspension,extended release (Vivitrol) meloxicam 7.5 mg tablet 7.5 mg PO DAILY 10/06/21 11/23/21 Allergies Allergy/AdvReac Type Severity Reaction Status Date / Time amoxicillin Allergy Intermediate rash Verified 05/21/22 13:40 Penicillins Allergy Intermediate Pruritic Verified 05/21/22 13:40 rash Review of Systems Review of Systems: All systems reviewed & are unremarkable except as noted in HPI and below Constitutional: Constitutional: Reports no additional constitutional complaints Eyes: Eyes: Reports no additional eye complaints ENT: Reports as per HPI and Reports nasal congestion Cardiovascular: Cardiovascular: Reports no additional cardiovascular complaints, Denies chest pain and Denies dyspnea Respiratory: Respiratory: Reports as per HPI, Denies chest congestion, Reports cough and Denies dyspnea Gastrointestinal: Gastrointestinal: Reports no additional gastrointestinal complaints, Denies abdominal pain, Denies nausea and Denies vomiting Musculoskeletal: Musculoskeletal: Reports no additional musculoskeletal complaints Integumentary/Breasts: Skin/Breast: Reports system reviewed and no additional complaints, except as docu Neurologic: Reports system reviewed and no additional complaints, except as documented Psychiatric: Psychiatric: Reports no additional psychiatric complaints Allergic/Immunologic: Allergic/Immunologic: Reports no additional allergic/immunologic complaints PMFSH Past Medical History Medical History Acute pulmonary embolism JOSE (acute kidney injury) Angioedema (~08/2019) Bilateral hand pain Colon cancer screening Counseling on health promotion and disease prevention Dyspnea Encounter for medication management Fracture of vertebra due to osteoporosis with routine healing Generalized osteoarthritis of multiple sites GERD (gastroesophageal reflux disease) H/O blood clots H/O: HTN (hypertension) History of GI bleed Hypercholesteremia Inflammatory arthritis (~08/2019) Pancreatitis Pneumonia PUD (peptic ulcer disease) Thrombocytopenia (~08/2019) Surgical History Surgical History History of appendectomy Family History Family History Mother Hypertension Sibling Patient's brother is in good health Father Family history of pancreatic cancer Patient's father is Social History Social History Smoking packs per day: 1 Smoking cigarettes per day: 20.0 Years smoked: 35 Smoking pack-years: 35.00 Smoking status: Current every day smoker Tobacco type: cigarettes Second hand tobacco smoke exposure: No Alcohol intake: former Drinks per week: 1 Alcohol use details: SHOT Substance use: current Substance use type: marijuana Other substance usage details: MEDICAL CARD-DAILY FOR BACK PAIN Additional occupation/education comments: [employer] Gender identity (if verbalized by the patient)
== END 2022-05-21 13:28 | disposition home or self-care (01) ==
PROVIDERS: Emergency Provider Nurse Practitioner; PCP Physician Assistant
DX: J32.9 Chronic sinusitis, unspecified (principal); J40 Bronchitis, not specified as acute or chronic; F17.210 Nicotine dependence, cigarettes, uncomplicated; Z86.711 Personal history of pulmonary embolism; K21.9 Gastro-esophageal reflux disease without esophagitis; I10 Essential (primary) hypertension; E78.00 Pure hypercholesterolemia, unspecified; M13.80 Other specified arthritis, unspecified site; Z86.2 Personal history of diseases of the blood and blood-forming organs and certain disorders involving the immune mechanism
CPT/HCPCS: 99213; G0463

== ENCOUNTER 2022-07-13 14:29 | Outpatient (CLI) | payer OTHER, SELFPAY ==
--- NOTE | ~2022-07-13 | XR_ITS ---
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 . COMPARISON: 07/20/2020. FINDINGS: Normal mineralization. No fracture or dislocation. No lytic or blastic lesion. Moderate AC joint hypertrophy. No erosion or periosteal change. Soft tissues within normal limits. IMPRESSION: Moderate right acromioclavicular joint osteoarthritis. Reviewed, dictated and finalized at location [facility]
== END 2022-07-13 14:30 ==
LOC: MICIMG 14:31
PROVIDERS: PCP Physician Assistant; Visit Provider Physician Assistant
DX: Q74.0 Other congenital malformations of upper limb(s), including shoulder girdle (principal); M19.011 Primary osteoarthritis, right shoulder
CPT/HCPCS: 73000

== ENCOUNTER 2022-09-02 16:30 | Outpatient (CLI) | payer MEDICARE, SELFPAY ==
--- NOTE | ~2022-09-02 | MR_ITS ---
MRI of the lumbar spine Clinical History: Radiculopathy Technique: Axial T2-weighted images, and sagittal T1-weighted, T2-weighted, and T2 fat-sat images wer e acquired. Findings: No fracture or subluxation of the lumbar spine seen. Vertebral bodies maintain normal heigh t and alignment. No bone marrow signal abnormality evident. At L1-L2, there is mild facet arthropathy. No significant disc bulge or herniation. No spinal canal s tenosis or definite neural foraminal narrowing. At L2-L3, there is facet arthropathy without disc bulge or herniation. No spinal canal stenosis or ne ural foraminal narrowing. At L3-L4, there is facet arthropathy without definite disc bulge or herniation. No spinal canal steno sis. No definite neural foraminal narrowing. At L4-L5, there is minimal disc bulge with minimal facet joint degenerative change. No spinal canal s tenosis. There is moderate to advanced right neural foraminal narrowing and minimal left neural caitie inal narrowing. At L5-S1, there is facet arthropathy. No disc bulge or herniation. No spinal canal stenosis or neural foraminal narrowing. Paravertebral soft tissues are unremarkable. Impression: Mild degenerative spondylosis, as detailed above, probably worst at L4-L5. Reviewed, dictated and finalized at [facility]. Impression: Mild degenerative spondylosis, as detailed above, probably worst at L4-L5.
== END 2022-09-02 16:31 ==
LOC: MICIMG 16:31
PROVIDERS: PCP Internal Medicine; Visit Provider Nurse Practitioner Family
DX: M47.26 Other spondylosis with radiculopathy, lumbar region (principal)
CPT/HCPCS: 72148

== ENCOUNTER 2022-09-13 08:49 | Outpatient (CLI) | payer MEDICARE, SELFPAY ==
--- NOTE | ~2022-09-13 | MR_ITS ---
MRI of the cervical spine Clinical History: Cervicalgia Technique: Axial T2-weighted and gradient images, and sagittal T1-weighted, T2-weighted, and STIR olamide ges were acquired. Findings: There is reversal of the normal cervical lordosis. No fracture or subluxation evident. No s uspicious bone marrow signal abnormality seen. At C2-C3, there is minimal central disc protrusion. There is mild facet arthropathy bilaterally. No s laura canal stenosis, cord compression, or neural foraminal narrowing. At C3-C4, there is no significant disc bulge or herniation. There is facet arthropathy bilaterally, l eft worse than right. There is left neural foraminal narrowing. Right neural foramen preserved. No ce ntral canal stenosis or cord compression. At C4-C5, there is mild disc osteophyte complex. There is mild canal stenosis but no nicole cord compr ession. There is probable bilateral neural foraminal narrowing, right worse than left. At C5-C6, there is minimal disc osteophyte complex. No nicole spinal canal stenosis or cord compressio n. There is probable bilateral neural foraminal narrowing. At C6-C7, there is no disc bulge or herniation. No spinal canal stenosis, cord compression, or neural foraminal narrowing. No abnormal signal seen in the spinal cord. Paravertebral soft tissues are unremarkable. Impression: Mild degenerative spondylosis overall. There are areas of neural foraminal narrowing and mild canal s tenosis, as detailed above. Reviewed, dictated and finalized at [facility]. Impression: Mild degenerative spondylosis overall. There are areas of neural foraminal narr owing and mild canal stenosis, as detailed above.
== END 2022-09-13 08:50 ==
LOC: MICIMG 08:50
PROVIDERS: PCP Nurse Practitioner Family; Visit Provider Nurse Practitioner Family
DX: M47.892 Other spondylosis, cervical region (principal)
CPT/HCPCS: 72141

== ENCOUNTER 2022-11-09 08:28 | Outpatient (CLI) | payer MEDICARE, SELFPAY ==
--- NOTE | ~2022-11-09 | XR_ITS ---
Right Knee Technique: AP, lateral, and sunrise views were obtained. Clinical History: Pain Findings: No fracture or dislocation is seen. Osseous alignment is anatomic. Joint spaces are preserv ed without degenerative or erosive change. Soft tissues are unremarkable. No joint effusion is seen. Impression: Unremarkable right knee radiographs. Reviewed, dictated and finalized at location . Impression: Unremarkable right knee radiographs.
--- NOTE | ~2022-11-09 | XR_ITS ---
Left Knee Technique: AP, lateral, and sunrise views were obtained. Clinical History: Pain Findings: No fracture or dislocation is seen. Osseous alignment is anatomic. Joint spaces are preserv ed without degenerative or erosive change. Probable small joint effusion is seen. Impression: Probable small joint effusion. No fracture or dislocation. Reviewed, dictated and finalized at [facility]. Impression: Probable small joint effusion. No fracture or dislocation.
== END 2022-11-09 08:29 ==
LOC: MICIMG 11-10 08:31
PROVIDERS: PCP Pain Medicine Pain Medicine; Visit Provider Pain Medicine Pain Medicine
DX: M25.561 Pain in right knee (principal); M25.562 Pain in left knee
CPT/HCPCS: 73562

== ENCOUNTER 2024-06-20 20:08 | Emergency (ER) | payer MEDICARE, SELFPAY ==
--- NOTE | ~2024-06-20 | CT_ITS ---
CT of the Abdomen and Pelvis: Indication: Abdominal pain Technique: 2.5 mm axial scans were obtained through the abdomen and pelvis following intravenous adm inistration of 100 cc of Omnipaque 350. Dose reduction technique was used on this scan by utilizing a utomated exposure control and iterative reconstruction technique. The dose-length product (DLP) was 4 63.26 mGy-cm. Findings: Scans through the lung bases are unremarkable. There is minimal prominence of the central intrahepatic biliary ducts. The spleen, gallbladder, adren als and kidneys are within normal limits. There is focal coarse calcification in the pancreatic head. There is mild dilatation of the pancreatic duct of the pancreatic head and neck. No evidence of aort ic aneurysm. No lymphadenopathy. No bowel obstruction or bowel wall thickening. There is no evidence to suggest acute appendicitis. Images through the pelvis were performed. Urinary bladder unremarkable. No pelvic mass seen. No ascit es. Impression: Mild dilatation of the main pancreatic duct may be related to sequela of chronic pancreatitis. No dis tinct evidence for acute pancreatitis. Distended gallbladder without definite evidence for acute cholecystitis. Reviewed, dictated and finalized at [facility]. OGRAPHY ASSISTANT Impression: Mild dilatation of the main pancreatic duct may be related to sequela of chroni c pancreatitis. No distinct evidence for acute pancreatitis. Distended gallbladder without definite evidence for acute cholecystitis.
[2024-06-20 20:11] VITALS: BP 144/91; PULSE 86; RESP 20; TEMP 36.3; O2SAT 100
--- NOTE | 2024-06-21 00:20 | PC.NURSE ---
Patient states he drank this morning a couple 99 shooters. When asked how much he drinks in a day, patient states it's hard to tell bu too much . Patient reports frequent pancreatitis due to alcoholism. Patient states he has been hospitalized numerous times for the condition, but has been going through life stressors which he had been coping by using alcohol. Patient states his GI doctor is Dr. Loya through [facility].
[2024-06-21] MEDS: SODIUM CHLORIDE 0.9% IV 1,000 ML 999 ML IV CONT ×2 (00:54→02:13)
[2024-06-21] MEDS: THIAMINE HCL 200 MG/2 ML VIAL 100 MG IV PUSH (00:54)
[2024-06-21 01:07] LABS: Basophils Percent Auto 0.5 % (0.2-1.2); Eosinophils Percent Auto 0.2 % (0-4.4); Hematocrit 39.8 % (42.0-52.0); Hemoglobin 13.5 g/dL (14.0-18.0); Immature Granulocyte Absolute 0.14 K/mm3 (0.00-0.031); Immature Granulocyte Percent A 1.7 % (0-0.5); Lymphocytes Absolute Auto 1.35 K/mm3 (0.9-3.2); Lymphocytes Percent Auto 16.2 % (18.3-44.2); Mean Corpuscular HGB Conc 33.9 g/dl (32-36); Mean Corpuscular Hemoglobin 30.3 pg (26-34); Mean Corpuscular Volume 89.2 fl (80-100); Mean Platelet Volume 9.2 fl (7.4-10.4); Monocytes Absolute Auto 1.1 K/mm3 (0.1-0.6); Monocytes Percent Auto 12.9 % (2.6-8.5); Neutrophils Absolute Auto 5.7 K/mm3 (1.3-6.7); Neutrophils Percent Auto 68.5 % (45.5-73.1); Platelet Count Result 350 k/mm3 (150-375); Red Blood Count 4.46 M/mm3 (4.6-6.20); Red Cell Distribution Width 14.2 % (11.5-14.5); White Blood Count 8.4 K/mm3 (4.5-10.0)
[2024-06-21 01:11] LABS: Ethanol < 10 mg/dL (<10)
[2024-06-21 01:12] LABS: Alanine Aminotransferase 39 U/L (6-50); Albumin Level 4.7 g/dL (3.5-5.1); Alkaline Phosphatase 166 U/L (38-126); Anion Gap 15 mmol/L (4-12); Aspartate Amino Transferase 53 U/L (17-59); Bilirubin,Total 0.6 mg/dL (0.2-1.3); Blood Urea Nitrogen 15 mg/dL (9-20); Calcium 9.3 mg/dL (8.4-10.2); Carbon Dioxide 25 mmol/L (22-30); Chloride 102 mmol/L (98-107); Estimated CRCL calculation 121 ml/min; Estimated Glomerular Filt Rate > 60; Glucose 92 mg/dL (65-110); Lactic Acid Reflex 0.9 mmol/L (0.7-2.0); Lipase 21 U/L (23-300); Magnesium 1.9 mg/dL (1.6-2.3); Potassium 3.7 mmol/L (3.4-5.0); Sodium 142 mmol/L (137-145)
[2024-06-21 01:14] LABS: Partial Thromboplastin Time 32.6 Seconds (22.3-36.8)
--- NOTE | 2024-06-21 01:23 | ECG_ITS ---
Test Date: 2024-06-21 02:25:28 Measurements Intervals [place] Rate: 85 P: 53 VT: 155 QRS: -22 QRSD: 91 T: 16 QT: 399 QTc: 476 Interpretive Statements SINUS RHYTHM BORDERLINE LEFT AXIS DEVIATION [QRS AXIS < -20] No previous ECG available for comparison Electronically Signed On 06-21-2024 11:56:04 COST CLERK by Neyda Samuel
[2024-06-21] MEDS: MORPHINE SULFATE (*CRX) 4 MG/ML INJ IV PUSH (02:12)
[2024-06-21] MEDS: ONDANSETRON INJ 4 MG/2 ML VIAL IV PUSH (02:12)
[2024-06-21] MEDS: LORazepam INJ (*CRX) 2 MG/ML VIAL 1 MG IV PUSH (02:13)
[2024-06-21 02:15] VITALS: BP 146/102; PULSE 95; RESP 19; O2SAT 99
--- NOTE | 2024-06-21 02:49 | ED.ABDPAIN ---
HPI - Abdominal Pain General Chief Complaint: Abdominal Pain <RUSS Fam Last Filed: 06/21/24 17:06> Stated Complaint: abd pain, possible etoh withdrawl <RUSS Fam Last Filed: 06/21/24 17:06> Time Seen by Provider: 06/21/24 00:21 <RUSS Fam Last Filed: 06/21/24 17:06> Source: patient <RUSS Fam Last Filed: 06/21/24 17:06> Mode of arrival: ambulatory <RUSS Fam Last Filed: 06/21/24 17:06> Limitations: no limitations <RUSS Fam Last Filed: 06/21/24 17:06> History of Present Illness HPI narrative: Patient is a 58-year-old male who presents the ED with multiple complaints. Patient is concerned he is going through alcohol withdrawal. He does have along history of alcoholism. Reports he is currently going through a divorce and has been drinking daily over past 3 months. Typically drinks anywhere from 10-15 airplane bottles of liquor per day. Last drank 2 bottles this morning. Does admit to WD sx's when he goes w/o drinking and feels very weak and shaky currently. Also c/o CLEMENS, upper abdominal pain, nausea with dry heaving. He is concerned for pancreatitis. States he has history of chronic pancreatitis. Has not taken anything for pain today. States he has not eaten in the last 2 days. Pain does slightly radiate into his chest. Denies fevers, shortness of breath, diarrhea, constipation, urinary complaints. <RUSS Fam Last Filed: 06/21/24 17:06> Related Data Home Medications: Home Medications ?Medication ?Instructions ?Recorded ?Confirmed ?Last Taken ?Type lgjkflwr-vnfq-omloz acid 400 1 tablet PO DAILY 02/03/21 05/14/24 11/18/21 History mcg-lycopene 600 mcg-ginkgo 120 mg tablet lidocaine 5 % topical patch 1 patch topical DAILY 06/01/22 05/14/24 Unknown History melatonin 10 mg capsule 10 mg PO QHS 06/01/22 05/14/24 Unknown History potassium gluconate 595 mg (99 mg) 595 mg PO DAILY 04/25/23 05/14/24 Unknown History tablet psyllium husk 0.4 gram capsule 0.4 g PO DAILY 04/25/23 05/14/24 Unknown History (Metamucil) losartan 25 mg tablet 25 mg PO DAILY 06/28/23 05/14/24 Unknown History <Shiela Ruggiero PA-C - Last Filed: 06/21/24 17:06> Allergies/Adverse Reactions: Allergies Allergy/AdvReac Type Severity Reaction Status Date / Time amoxicillin Allergy Intermediate rash Verified 06/20/24 20:18 Penicillins Allergy Intermediate Pruritic Verified 06/20/24 20:18 rash <Shiela Ruggiero PA-C - Last Filed: 06/21/24 17:06> Review of Systems Review of Systems: All systems reviewed & are unremarkable except as noted in HPI. <Shiela Ruggiero PA-C - Last Filed: 06/21/24 17:06> All systems reviewed & are unremarkable except as noted in HPI and below <Shiela Ruggiero PA-C - Last Filed: 06/21/24 17:06> [facility] Past Medical History Medical History: Medical History Screening for prostate cancer Elevated PSA JOSE (acute kidney injury) Vomiting, unspecified Viral syndrome Plantar fasciitis of left foot Paresthesia Memory loss Gastroesophageal reflux disease without esophagitis Gastritis and duodenitis Flu-like symptoms Essential hypertension Enthesopathy of elbow Dizziness Diarrhea, unspecified Cough Alcoholism Colon cancer screening Fracture of vertebra due to osteoporosis with routine healing Bilateral hand pain Dyspnea Generalized osteoarthritis of multiple sites Encounter for medication management Counseling on health promotion and disease prevention Inflammatory arthritis (~08/2019) H/O blood clots History of pancreatitis History of pulmonary embolism (~08/2019) JOSE (acute kidney injury) Pneumonia Angioedema (~08/2019) Acute pulmonary embolism Thrombocytopenia (~08/2019) PUD (peptic ulcer disease) History of GI bleed Pancreatitis H/O: HTN (hypertension) Hypercholesteremia GERD (gastroesophageal reflux disease) <Shiela Ruggiero PA-C - Last Filed: 06/21/24 17:06> Surgical History Surgical History: Surgical History History of appendectomy <Shiela Ruggiero PA-C - Last Filed: 06/21/24 17:06> Family History Family History: Family History Mother Hypertension Sibling Patient's brother is in good health Father Family history of pancreatic cancer <Shiela Rugigero PA-C - Last Filed: 06/21/24 17:06> Social History Social History: Social History Smoking packs per day: 0.5 Smoking cigarettes per day: 10.0 Years smoked: 35 Smoking pack-years: 17.50 Smoking status: Current every day smoker Tobacco type: cigarettes Second hand tobacco smoke exposure: No Alcohol intake: current Drinks per week: 1 Alcohol use details: SHOT Substance use: current Substance use type: marijuana Other substance usage details: MEDICAL CARD-DAILY FOR BACK PAIN Do You Feel Safe in your Home?: Yes Lack of Transportation: No Lack of Food: Never True Current Housing: I Have Housing Concerned About Future Housing: No Difficulty Paying Gas/Electric Bills: No Difficulty Paying for Meds: No Currently Unemployed: Decline to Answer Education: Decline to Answer Difficulty w/ Childcare or Family Care: No Living arrangements: with family Occupation/Education: retired Additional occupation/education comments: chronic pancreatitis Gender identity (if verbalized by the patient): Male Spiritual care concerns: No <Shiela Ruggiero PA-C - Last Filed: 06/21/24 17:06> Exam Narrative: GENERAL: Mildly ill-appearing appearing, well-nourished, non-toxic, in no acute distress. HEAD: Normocephalic, atraumatic. RESPIRATORY: Airway patent, respirations nonlabored. Clear to auscultation bilaterally, no rales, rhonchi, wheezing. CARDIOVASCULAR: Regular rate and rhythm without murmurs, rubs, or gallops. ABDOMINAL: Soft, diffuse tenderness in multiple locations in abdomen, worse throughout epigastric region/upper abdomen. No rebound. Nondistended. Normoactive BS. MUSCULOSKELETAL: Moves all extremities. No gross deformities. SKIN: Warm, dry, normal color. NEURO: A&O X3. Speech clear. Cranial nerves II-XII grossly intact. Steady gait. Diffusely tremulous throughout extremities. No focal deficits. PSYCHIATRIC: Appropriate mood and affect. Normal interaction. <Shiela Ruggiero PA-C - Last Filed: 06/21/24 17:06> Course DATA MANAGEMENT/PA Physician Supervision For this patient encounter, I reviewed the DATA MANAGEMENT or PA documentation, treatment plan, and medical decision making and had [id number] time with this patient. I performed all aspects of the MDM as documented. <Minna Hampton MD - Last Filed: 06/21/24 03:42> Vital Signs Vital signs: Vital Signs Temperature 97.3 F L 06/20/24 20:11 Pulse Rate 86 06/20/24 20:11 Respiratory Rate 20 06/20/24 20:11 Blood Pressure 144/91 H 06/20/24 20:11 Pulse Oximetry 100 06/20/24 20:11 Oxygen Delivery Room Air 06/20/24 20:11 Temperature 97.3 F L 06/20/24 20:11 Pulse Rate 89 06/21/24 03:58 Respiratory Rate 06/21/24 03:58 Blood Pressure 140/82 06/21/24 03:58 Pulse Oximetry 99 06/21/24 03:58 Oxygen Delivery Room Air 06/20/24 20:11 <Shiela Ruggiero PA-C - Last Filed: 06/21/24 17:06> Vital Signs Temperature 97.3 F L 06/20/24 20:11 Pulse Rate 86 06/20/24 20:11 Respiratory Rate 20 06/20/24 20:11 Blood Pressure 144/91 H 06/20/24 20:11 Pulse Oximetry 100 06/20/24 20:11 Oxygen Delivery Room Air 06/20/24 20:11 Temperature 97.3 F L 06/20/24 20:11 Pulse Rate 89 06/21/24 03:58 Respiratory Rate 17 06/21/24 03:58 Blood Pressure 140/82 06/21/24 03:58 Pulse Oximetry 99 06/21/24 03:58 Oxygen Delivery Room Air 06/20/24 20:11 <Minna Hampton MD - Last Filed: 06/21/24 03:42> MDM - Abdominal Pain MDM Narrative Medical decision making narrative: Patient presented to ED with multiple complaints, alcohol withdrawal, headache, abdominal pain, nausea with dry heaving. Vital signs are stable upon arrival. Patient is mildly ill appearing. Initial CIWA score was 17. Given Ativan. CIWA protocol, thiamine, fluids initiated. Laboratory studies without leukocytosis. Stable H& H. CMP with anion gap of 15. Otherwise stable electrolytes. Lactic acid within normal range. Magnesium within normal range. Normal LFTs. Alk-phos is mildly elevated to 166. Lipase is normal at 21. Alcohol level here is negative. EKG is without concerning ST changes. No STEMI. Troponin undetectable. CT scan of abd/pelvis obtained and pending. Patient is feeling improved thus far with supportive therapy. Pain resolved. Shakiness significantly improved. No evidence of severe alcohol WD. Patient reports he no longer wants to drink. He has tolerated librium before. I feel comfortable prescribing short course of this for home if patient is able to be discharged. Care signed out to Dr. Hampton at shift change pending stat rad CT results. Memo: Patient was signed out to me pending CT abdomen and pelvis with IV contrast. CT was obtained revealing dilation of the pancreatic duct measuring up to 8 mm, this is noted to be new in comparison to CT from October 12, 2019. There is additional common ductal dilation measuring up to 1 cm and mild intrahepatic biliary dilation is also noted. Recommending MRCP if there is concern for obstruction. Patient's liver enzymes, biliary enzymes and lipase were all noted to be within normal limits. Patient was informed of these findings at bedside and he can follow-up with GI as an outpatient. Patient was also prescribed Librium to help with any alcohol withdrawal symptoms as he states that he no longer wants to drink alcohol. Patient was provided with strict return precautions and instructed to return to the emergency department if any new or worsening symptoms develop. He was also instructed to follow up with his primary care physician within the next 3-5 days. He was discharged in stable condition. <Shiela Ruggiero PA-C - Last Filed: 06/21/24 17:06> Patient presented to ED with multiple complaints, alcohol withdrawal, headache, abdominal pain, nausea with dry heaving. Vital signs are stable upon arrival. Patient is mildly ill appearing. Initial CIWA score was 17. Given Ativan. CIWA protocol, thiamine, fluids initiated. Laboratory studies without leukocytosis. Stable H& H. CMP with anion gap of 15. Otherwise stable electrolytes. Lactic acid within normal range. Magnesium within normal range. Normal LFTs. Alk-phos is mildly elevated to 166. Lipase is normal at 21. Alcohol level here is negative. EKG is without concerning ST changes. No STEMI. Troponin undetectable. CT scan of abd/pelvis obtained and pending. Patient is feeling improved thus far with supportive therapy. Care signed out to Dr. Hampton at shift change pending stat rad CT results. Memo: Patient was signed out to me pending CT abdomen and pelvis with IV contrast. CT was obtained revealing dilation of the pancreatic duct measuring up to 8 mm, this is noted to be new in comparison to CT from October 12, 2019. There is additional common ductal dilation measuring up to 1 cm and mild intrahepatic biliary dilation is also noted. Recommending MRCP if there is concern for obstruction. Patient's liver enzymes, biliary enzymes and lipase were all noted to be within normal limits. Patient was informed of these findings at bedside and he can follow-up with GI as an outpatient. Patient was also prescribed Librium to help with any alcohol withdrawal symptoms as he states that he no longer wants to drink alcohol. Patient was provided with strict return precautions and instructed to return to the emergency department if any new or worsening symptoms develop. He was also instructed to follow up with his primary care physician within the next 3-5 days. He was discharged in stable condition. <Minna Hampton MD - Last Filed: 06/21/24 03:42> Medical Records Attestation: I reviewed the patient's medical records. <Shiela Ruggiero PA-C - Last Filed: 06/21/24 17:06> Lab Data Attestation: I reviewed the patient's lab results. <Shiela Ruggiero PA-C - Last Filed: 06/21/24 17:06> Result diagrams: 06/21/24 00:56 06/21/24 00:56 <Shiela Ruggiero PA-C - Last Filed: 06/21/24 17:06> Labs: Lab Results 06/21/24 Range/Units 00:56 WBC 8.4 (4.5-10.0) K/mm3 RBC 4.46 L (4.6-6.20) M/mm3 Hgb 13.5 L (14.0-18.0) g/dL Hct 39.8 L (42.0-52.0) % MCV 89.2 (80-100) fl MCH 30.3 (26-34) pg MCHC 33.9 (32-36) g/dl RDW 14.2 (11.5-14.5) % Plt Count 350 (150-375) k/mm3 MPV 9.2 (7.4-10.4) fl Immature Gran % (Auto) 1.7 H (0-0.5) % Neut % (Auto) 68.5 (45.5-73.1) % Lymph % (Auto) 16.2 L (18.3-44.2) % Archule[place] % (Auto) 12.9 H (2.6-8.5) % Eos % (Auto) 0.2 (0-4.4) % Baso % (Auto) 0.5 (0.2-1.2) % Lymph # (Auto) 1.35 (0.9-3.2) K/mm3 [place] # (Auto) 1.1 H (0.1-0.6) K/mm3 Eos # (Auto) 0.0 (0-0.3) K/mm3 Baso # (Auto) 0.0 (0.0-0.1) K/mm3 Abs Immat Gran (auto) 0.14 H (0.00-0.031) K/mm3 Absolute Neuts (auto) 5.7 (1.3-6.7) K/mm3 Absolute Nucleated RBC 0.000 (0.0-0.012) K/mm3 Nucleated RBC % 0.0 (0.0-0.2) % PT 13.0 (11.1-14.7) Seconds INR 1.0 APTT 32.6 (22.3-36.8) Seconds Sodium 142 (137-145) mmol/L Potassium 3.7 (3.4-5.0) mmol/L Chloride 102 (98-107) mmol/L Carbon Dioxide 25 (22-30) mmol/L Anion Gap 15 H (4-12) mmol/L BUN 15 D (9-20) mg/dL Creatinine 0.64 L (0.7-1.3) mg/dL Estim Creat Clear Calc 121 ml/min Estimated GFR > 60 (59 - ) Glucose 92 (65-110) mg/dL Lactic Acid 0.9 (0.7-2.0) mmol/L Calcium 9.3 (8.4-10.2) mg/dL Magnesium 1.9 (1.6-2.3) mg/dL Total Bilirubin 0.6 (0.2-1.3) mg/dL AST 53 (17-59) U/L ALT 39 (6-50) U/L Alkaline Phosphatase 166 H (38-126) U/L Troponin I < 0.012 (0.000-0.034) ng/mL Total Protein 8.0 (6.3-8.2) g/dL Albumin 4.7 (3.5-5.1) g/dL Lipase 21 L (23-300) U/L Ethyl Alcohol < 10 (<10) mg/dL <Shiela Ruggiero PA-C - Last Filed: 06/21/24 17:06> Lab Results 06/21/24 Range/Units 00:56 WBC 8.4 (4.5-10.0) K/mm3 RBC 4.46 L (4.6-6.20) M/mm3 Hgb 13.5 L (14.0-18.0) g/dL Hct 39.8 L (42.0-52.0) % MCV 89.2 (80-100) fl MCH 30.3 (26-34) pg MCHC 33.9 (32-36) g/dl RDW 14.2 (11.5-14.5) % Plt Count 350 (150-375) k/mm3 MPV 9.2 (7.4-10.4) fl Immature Gran % (Auto) 1.7 H (0-0.5) % Neut % (Auto) 68.5 (45.5-73.1) % Lymph % (Auto) 16.2 L (18.3-44.2) % [place] % (Auto) 12.9 H (2.6-8.5) % Eos % (Auto) 0.2 (0-4.4) % Baso % (Auto) 0.5 (0.2-1.2) % Lymph # (Auto) 1.35 (0.9-3.2) K/mm3 [place] # (Auto) 1.1 H (0.1-0.6) K/mm3 Eos # (Auto) 0.0 (0-0.3) K/mm3 Baso # (Auto) 0.0 (0.0-0.1) K/mm3 Abs Immat Gran (auto) 0.14 H (0.00-0.031) K/mm3 Absolute Neuts (auto) 5.7 (1.3-6.7) K/mm3 Absolute Nucleated RBC 0.000 (0.0-0.012) K/mm3 Nucleated RBC % 0.0 (0.0-0.2) % PT 13.0 (11.1-14.7) Seconds INR 1.0 APTT 32.6 (22.3-36.8) Seconds Sodium 142 (137-145) mmol/L Potassium 3.7 (3.4-5.0) mmol/L Chloride 102 (98-107) mmol/L Carbon Dioxide 25 (22-30) mmol/L Anion Gap 15 H (4-12) mmol/L BUN 15 D (9-20) mg/dL Creatinine 0.64 L (0.7-1.3) mg/dL Estim Creat Clear Calc 121 ml/min Estimated GFR > 60 (59 - ) Glucose 92 (65-110) mg/dL Lactic Acid 0.9 (0.7-2.0) mmol/L Calcium 9.3 (8.4-10.2) mg/dL Magnesium 1.9 (1.6-2.3) mg/dL Total Bilirubin 0.6 (0.2-1.3) mg/dL AST 53 (17-59) U/L ALT 39 (6-50) U/L Alkaline Phosphatase 166 H (38-126) U/L Troponin I < 0.012 (0.000-0.034) ng/mL Total Protein 8.0 (6.3-8.2) g/dL Albumin 4.7 (3.5-5.1) g/dL Lipase 21 L (23-300) U/L Ethyl Alcohol < 10 (<10) mg/dL <Minna Hampton MD - Last Filed: 06/21/24 03:42> Imaging Data Attestation: I personally reviewed and interpreted this imaging study as follows: <Shiela Ruggiero PA-C - Last Filed: 06/21/24 17:06> Radiologist's impression: ITS Impressions Abdomen/Pelvis CT 06/21/24 05:32 Impression: Mild dilatation of the main pancreatic duct may be related to sequela of chronic pancreatitis. No distinct evidence for acute pancreatitis. Distended gallbladder without definite evidence for acute cholecystitis. <Shiela Ruggiero PA-C - Last Filed: 06/21/24 17:06> ITS Impressions Abdomen/Pelvis CT 06/21/24 05:32 Impression: Mild dilatation of the main pancreatic duct may be related to sequela of chronic pancreatitis. No distinct evidence for acute pancreatitis. Distended gallbladder without definite evidence for acute cholecystitis. <Minna Hampton MD - Last Filed: 06/21/24 03:42> ECG Data EKG #1: Attestation: I personally reviewed and interpreted this ECG as follows: <Shiela Ruggiero PA-C - Last Filed: 06/21/24 17:06> ECG completion date: 06/21/24 <Shiela Ruggiero PA-C - Last Filed: 06/21/24 17:06> ECG completion time: 02:25 <Shiela Ruggiero PA-C - Last Filed: 06/21/24 17:06> normal rate (85), sinus rhythm and non-specific ST changes <RUSS Fam Last Filed: 06/21/24 17:06> Discharge Plan Discharge Clinical Impression: Alcohol abuse, Intermittent upper abdominal pain Nausea and vomiting Qualifiers: Vomiting type: unspecified Qualified Code(s): R11.2 - Nausea with vomiting, unspecified <RUSS Fam Last Filed: 06/21/24 17:06> Patient Disposition: Home, Self-Care <RUSS Fam Last Filed: 06/21/24 17:06> Condition: Stable <RUSS Fam Last Filed: 06/21/24 17:06> Instructions: Antibiotic Form, Clear Liquid Diet (ED), Alcohol Withdrawal (ED), Abdominal Pain (ED) <RUSS Fam Last Filed: 06/21/24 17:06> Additional Instructions: Avoid further alcohol use. Utilize Librium as needed for alcohol withdrawal symptoms. Utilize zofran as needed for further nausea. Recommend plenty of fluid intake. Recommend electrolyte rich fluids, Gatorade/pedialyte/body armour. Recommend clear liquids or bland diet until symptoms improve. Utilize Tylenol as needed for further abdominal pain. Continue your home Protonix. Follow-up closely with your primary care doctor for further evaluation. Return to the ED if you experience worsening or severe symptoms, severe alcohol withdrawal, severe pain, unable to keep down food or drink, persistent fevers, chest pain, difficulty breathing, or any other symptoms of concern. You were provided with a GI referral as well instructed to call to set up a follow-up appointment as you CT showed some pancreatic duct dilation, however, your pancreatic enzyme your lipase was noted to be within normal limits. <RUSS Fam Last Filed: 06/21/24 17:06> Patient Language: Grenadian <RUSS Fam Last Filed: 06/21/24 17:06> Prescriptions: New ondansetron 4 mg tablet,disintegrating 4 mg PO Q8H PRN (Reason: nausea and vomiting) Qty: 15 0RF chlordiazepoxide HCl 25 mg capsule 25 mg PO TID PRN (Reason: alcohol withdrawal) Qty: 15 0RF No Action fluticasone propionate [Flonase Allergy Relief] 50 mcg/actuation spray,suspension 2 spray intranasal DAILY Qty: 16 0RF Rx Instructions: administer into each nostril fenofibrate 160 mg tablet 160 mg PO DAILY Qty: 90 1RF folic acid 1 mg tablet See Rx Instructions .ROUTE .COMPLEX Qty: 90 1RF Dose Instruction: TAKE 1 TABLET BY MOUTH DAILY Rx Instructions: TAKE 1 TABLET BY MOUTH DAILY pantoprazole 40 mg tablet,delayed release (DR/EC) See Rx Instructions .ROUTE .COMPLEX Qty: 90 1RF Dose Instruction: TAKE 1 TABLET BY MOUTH EVERY MORNING Rx Instructions: TAKE 1 TABLET BY MOUTH EVERY MORNING meloxicam 7.5 mg tablet 7.5 mg PO BID PRN (Reason: joint pain) Qty: 60 5RF duloxetine [Cymbalta] 30 mg capsule,delayed release(DR/EC) 90 mg PO .COMPLEX Qty: 90 5RF Rx Instructions: 90 mg orally Take 2 capsules in AM and then 1 capsule in the evening.; melatonin 10 mg capsule 10 mg PO QHS lidocaine 5 % adhesive patch,medicated 1 patch topical DAILY psyllium husk [Metamucil] 0.4 gram capsule 0.4 g PO DAILY potassium gluconate 595 mg (99 mg) tablet 595 mg PO DAILY ondansetron 4 mg tablet,disintegrating 4 mg PO Q8H PRN (Reason: nausea and vomiting) Qty: 30 0RF losartan 25 mg tablet 25 mg PO DAILY tobramycin 0.3 % drops 1 drp LEFT EYE Q4H Qty: 5 0RF ql-ejzd-iozgf-lycopene-ginkgo 400-600-120 mcg-mcg-mg Tablet 1 tablet PO DAILY sildenafil 100 mg tablet 100 mg PO DAILY PRN (Reason: sexual activity) Qty: 8 3RF Rx Instructions: administer 30 minutes to 4 hours before activity Creon 12,000-38,000 -60,000 unit capsule,delayed release(DR/EC) 1 cap PO TID Qty: 90 5RF Rx Instructions: administer with meals and/or snacks tadalafil 20 mg tablet See Rx Instructions .ROUTE .COMPLEX Qty: 8 4RF Dose Instruction: TAKE 1 TABLET BY MOUTH DAILY SEXUAL ACTIVITY AND 30 MINUTES BEFORE SEXUAL ACTIVITY NEEDED. DO NOT USE MORE THAN 1 DOSE PER 24 HOURS Rx Instructions: TAKE 1 TABLET BY MOUTH DAILY SEXUAL ACTIVITY AND 30 MINUTES BEFORE SEXUAL ACTIVITY NEEDED. DO NOT USE MORE THAN 1 DOSE PER 24 HOURS gabapentin 300 mg capsule 300 mg PO Q8H Qty: 270 1RF trazodone 50 mg tablet 100 mg PO .QHS PRN (Reason: insomnia) Qty: 180 1RF tizanidine 4 mg tablet See Rx Instructions .ROUTE .COMPLEX Qty: 60 2RF Dose Instruction: TAKE 1 TO 2 TABLETS BY MOUTH EVERY NIGHT AT BEDTIME NEEDED FOR MUSCLE SPASMS Rx Instructions: TAKE 1 TO 2 TABLETS BY MOUTH EVERY NIGHT AT BEDTIME NEEDED FOR MUSCLE SPASMS amlodipine 10 mg tablet 10 mg PO DAILY Qty: 90 1RF <Shiela Ruggiero PA-C - Last Filed: 06/21/24 17:06> Follow-up/Referrals: Ronnell Escobar APRN [Primary Care Provider] - 1 Week Brando Mark MD [Physician] - 3 Days <Shiela Ruggiero PA-C - Last Filed: 06/21/24 17:06> Time of Disposition: 03:40 <Shiela Ruggiero PA-C - Last Filed: 06/21/24 17:06> 03:40 <Minna Hampton MD - Last Filed: 06/21/24 03:42>
[2024-06-21 03:20] LABS: Troponin I < 0.012 ng/mL (0.000-0.034)
[2024-06-21 03:58] VITALS: BP 140/82; PULSE 89; RESP 17; O2SAT 99
== END 2024-06-21 03:59 | disposition home or self-care (01) ==
PROVIDERS: Physician Assistant; Emergency Provider Emergency Medicine; PCP Nurse Practitioner
DX: R10.10 Upper abdominal pain, unspecified (principal); F10.10 Alcohol abuse, uncomplicated; R11.2 Nausea with vomiting, unspecified; K21.9 Gastro-esophageal reflux disease without esophagitis; I10 Essential (primary) hypertension; Z86.711 Personal history of pulmonary embolism; E78.00 Pure hypercholesterolemia, unspecified; F17.210 Nicotine dependence, cigarettes, uncomplicated
CPT/HCPCS: 36415; 74177; 80053; 82077; 83605; 83690; 83735; 84484; 85025; 85610; 85730; 93005; 96361; 96374; 96375; 99284; J2060; J2270; J2405; J3411; J7030; Q9967

== ENCOUNTER 2024-06-23 07:03 | Inpatient (IN) | payer MEDICARE, SELFPAY ==
[2024-06-23] VITALS (40 sets, daily range): BP systolic 75–153; BP diastolic 44–97; PULSE 65–122; RESP 13–31; TEMP 36.3–38.3; O2SAT 92–100; BMI 24.4
--- NOTE | ~2024-06-23 | NM_ITS ---
EXAMINATION: NM hepatobiliary w pharm DATE: 06/24/2024 11:07 INDICATION: Cholecystitis COMPARISON: None. TECHNIQUE: 1.1 mCi Tc-99m mebrofenin (Choletec) was administered intravenously. Scintigraphic images of the abdomen were obtained for one hour. 2110 point 2 mg morphine was administered by slow intrave nous infusion, and imaging was continued for 30 minutes. Gallbladder ejection fraction was calculated by the technologist. FINDINGS: There is normal clearance of radiotracer from the blood pool. There is homogeneous tracer uptake by t he liver. Activity progresses to the common bile duct by 12 minutes with activity seen in the duoden um by 29 minutes with progressive accumulation and the bowels. The gallbladder is not visualized with in the initial 49 minutes of imaging but begins to fill with activity 11 minutes following morphine i njection. IMPRESSION: 1. Delayed accumulation of activity in the gallbladder likely due to the dilated state of the gallbl adder evident on prior imaging both accumulation of activity in the gallbladder following morphine ad ministration which argues against acute cholecystitis. Reviewed, dictated and finalized at location [facility]. OPE TECHNOLOGIST IMPRESSION: 1. Delayed accumulation of activity in the gallbladder likely due to the dilat ed state of the gallbladder evident on prior imaging both accumulation of activ ity in the gallbladder following morphine administration which argues against a cute cholecystitis.
--- NOTE | ~2024-06-23 | XR_ITS ---
Portable chest x-ray Comparison: 02/10/2020 Clinical History: Chest pain Findings: Lungs are clear, without focal consolidation or pleural effusion. Cardiomediastinal silho uette is stable. Bones and soft tissues are unremarkable. Impression: Normal chest. Reviewed, dictated and finalized at [facility]. MAKER Impression: Normal chest.
--- NOTE | ~2024-06-23 | CT_ITS ---
CT of the Abdomen and Pelvis: Indication: Abdominal pain Technique: 2.5 mm axial scans were obtained through the abdomen and pelvis following intravenous adm inistration of 100 cc of Omnipaque 350. Dose reduction technique was used on this scan by utilizing a utomated exposure control and iterative reconstruction technique. The dose-length product (DLP) was 3 71.85 mGy-cm. COMPARISON: 06/21/2024 Findings: Scans through the lung bases are unremarkable. The spleen, adrenals and kidneys are within normal limits. Gallbladder is distended, possible minimal wall thickening. There is minimal prominence of the central intrahepatic biliary ducts. No hepatic p arenchymal abnormality seen otherwise. There are calcifications of the pancreatic head, which could r eflect chronic pancreatitis changes versus possibly stones in the common bile duct. There is mild per ipancreatic inflammatory stranding and dilatation of the proximal main pancreatic duct up to 8 mm. No evidence of aortic aneurysm. No lymphadenopathy. No bowel obstruction or bowel wall thickening. There is no evidence to suggest acute appendicitis. Images through the pelvis were performed. Urinary bladder unremarkable. No pelvic mass seen. No ascit es. Impression: Possible calcified stone in the distal common bile duct versus sequelae of chronic pancreatitis. Cons ider MRCP to further evaluate and better confirmed common duct stone. Probable mild acute pancreatitis. Duct dilatation on an pancreatic duct, which could be related to stone disease versus sequela of global account executive rafaela pancreatitis. Distended gallbladder with possible mild wall thickening. This may be related to distal common duct s tone as noted above. Correlate clinically for acute cholecystitis. Consider HIDA scan or ultrasound a s indicated. Reviewed, dictated and finalized at [facility]. LY REQUIREMENTS OFFICER Impression: Possible calcified stone in the distal common bile duct versus sequelae of global account executive rafaela pancreatitis. Consider MRCP to further evaluate and better confirmed common duct stone. Probable mild acute pancreatitis. Duct dilatation on an pancreatic duct, which could be related to stone disease versus sequela of chronic pancreatitis. Distended gallbladder with possible mild wall thickening. This may be related t o distal common duct stone as noted above. Correlate clinically for acute ladonna cystitis. Consider HIDA scan or ultrasound as indicated.
--- NOTE | ~2024-06-23 | MR_ITS ---
EXAMINATION: MR MRCP wo/w con/w 3D wo ind DATE: 06/24/2024 09:19 INDICATION: Biliary pathology TECHNIQUE: Magnetic resonance imaging (MRI) of the abdomen was performed without and with 18 mL Multi tomasz intravenous contrast. Sequences included coronal T2-weighted SS-FSE, coronal T2-weighted FS SS- FSE, coronal T2-weighted FS FIESTA, axial T2-weighted FS FIESTA, axial T2-weighted FIESTA, sagittal T 2-weighted SS-FSE, axial T1-weighted dual-echo FSPGR, axial T2-weighted SS-FSE, axial T1-weighted LAV A, axial T2-weighted STIR FSE. Thick-slab T2-weighted FRFSE-XL images were obtained for magnetic reso nance cholangiopancreatography (MRCP). Rotating maximum intensity projection 3-D reconstructions of t he volumetric data were created by the technologist. Postcontrast sequences included a time course of axial T1-weighted LAVA. COMPARISON: None. FINDINGS: ABDOMEN MRI: Size is normal. Linear discoid atelectasis/scarring in the bilateral lower lobes. No per icardial or pleural effusion. Liver, spleen and bilateral adrenal glands are normal. Gallbladder larisa ins mildly dilated to 5 cm maximal diameter. There is however no abnormal wall thickening or perichol ecystic fluid or inflammatory stranding to suggest acute cholecystitis. There is prominent peripancre atic edema about the body and tail of the pancreas which has progressed since the prior study consist ent with progression of acute interstitial pancreatitis. There swelling and more prominent T2 hyperin tense edema at the tail of the pancreas which surrounds a 2.6 x 1.1 cm dumbbell shaped nonenhancing r egion consistent with necrosis. There are low signal intensity dystrophic calcification at the head o f the pancreas which are better appreciated on the prior CT and are consistent with sequela of chroni c pancreatitis. There is prominent dilation of the main pancreatic duct in the head and body the panc reas bladder measuring up to 9 mm in maximal diameter. There are also multiple mildly dilated pancrea tic ductal side branches. There is a 1.8 x 1.5 x 0.8 cm loculated acute peripancreatic fluid collecti on situated between the tail of the pancreas and the bifurcation of the celiac axis. Bilateral adrena l glands and kidneys are normal aside from increasing bilateral pararenal stranding likely related to the acute pancreatitis. Visualized portions of bowels are unremarkable with no obstruction. No patho logically enlarged abdominal or upper pelvic lymphadenopathy. Mild lumbar dextrocurvature with modera te spondylosis. T1 hyperintense and fat saturating T9 hemangioma. Chronic mild likely physiologic ant erior wedging at T11 and T12. Fibrofatty degenerative endplate changes at a few levels in the lumbar spine most prominent at T12-L1. ABDOMEN MRCP: No intrahepatic biliary ductal dilation. The common hepatic duct is dilated to 8 mm in maximal diameter. There is a low-lying confluence of the common hepatic and cystic ducts which occurs near the ampulla. The short common bile duct measures approximately 5 mm at the confluence of the co mmon hepatic and cystic ducts and tapers distally. There is a 3-4 mm low signal intensity likely gall stone in the common bile duct near the ampulla best appreciated on the axial and sagittal T2-weighted images. IMPRESSION: 1. Interval progression of acute on chronic, now necrotic pancreatitis with 2.6 x 1.1 cm region of ne crosis at the tail the pancreas and 1.8 x 1.5 x 0.8 cm acute peripancreatic fluid collection. 2. Dilation the gallbladder and mild dilation the common hepatic duct which could be related to appar ent 3-4 mm low signal intensity stone at the distal common bile duct. No intrahepatic biliary ductal dilation and no gallbladder wall thickening or surrounding inflammatory changes to suggest acute chol ecystitis. Reviewed, dictated and finalized at location B. GATHERER IMPRESSION: 1. Interval progression of acute on chronic, now necrotic pancreatitis with 2.6 x 1.1 cm region of necrosis at the tail the pancreas and 1.8 x 1.5 x 0.8 cm ac drake peripancreatic fluid collection. 2. Dilation the gallbladder and mild dilation the common hepatic duct which cou ld be related to apparent 3-4 mm low signal intensity stone at the distal commo n bile duct. No intrahepatic biliary ductal dilation and no gallbladder wall th ickening or surrounding inflammatory changes to suggest acute cholecystitis.
--- OUTSIDE RECORDS SUMMARY | 2024-06-23 07:06 | XMS_ITS | Encounter Summary ---
Author Organization [facility] Healthcare Address [address] [place] [id number] Care Team Providers Care Supervisor Home Economics Name Role Phone Don Walton Primary Care Provider Encounter Details Date Type Department Care Team (Late st Contact Info) Description 01/25/2022 Orders Only [facility] [address] [place] [phone] Jordana Chambers MD [address] [place] [id number] Social History Tobacco Use Types Packs/Day Years Used Date Smoking Tobacco: Every Day Cigarettes Smokeless Tobacco: Never Alcohol Use Standard Drinks/Week Comments Yes 0 (1 standard drink = 0.6 oz pur e alcohol) Social Connection and Isolat ion Panel [NHANES] Answer Date Recorded In a typical week, how many times do you talk on the phone with family, friends, or neighbors? More than three times a week 01/27/2022 How often do you get togethe r with friends or relatives? More than three times a week 01/27/2022 How often do you attend chur ch or restorationist services? 1 to 4 times per year 01/27/2022 Do you belong to any clubs o r organizations such as mosque groups, unions, fraternal or athletic groups, or school groups? No 01/27/2022 How often do you attend meet ings of the clubs or organizations you belong to? Never 01/27/2022 Are you , , di vorced, , never , or living with a partner? 01/27/2022 AUDIT-C Answer Date Recorded Q1: How often do you have a drink containing alc ohol? Never 08/30/2021 Q2: How many drinks containi ng alcohol do you have on a typical day when you are drinking? 3 or 4 08/30/2021 Q3: How often do you have six or more drinks on one occasion? Never 08/30/2021 Overall Financial Resource Strain (CARDIA) Answe r Date Recorded How hard is it for you to pa y for the very basics like food, housing, medical care, and heating? Not very hard 01/27/2022 Hunger Vital Sign Answer Date Recorded Within the past 12 months, y ou worried that your food would run out before you got the money to buy more. Never true 01/28/20 22 Within the past 12 months, t he food you bought just didn't last and you didn't have money to get more. Never true 01/27/2022 PRAPARE - Transportation Answer Date Re corded In the past 12 months, has l ack of transportation kept you from medical appointments or from getting medications? No 05/2021 In the past 12 months, has l ack of transportation kept you from meetings, work, or from getting things needed for daily living? No 01/27/2022 Housing Stability Vital Sign Answer Dangelo e Recorded In the last 12 months, was t here a time when you were not able to pay the mortgage or rent on time? No 01/27/2022 In the last 12 months, how many places have you lived? 1 01/27/2022 In the last 12 months, was t here a time when you did not have a steady place to sleep or slept in a senior living (including now)? 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 Gender Identity Not on file Sexual Orientation Not on file Occupation Industry Job Start Date Job End Date disability Not on file Not on file Not on file documented as of this encounter Plan of Treatment Not on file documented as of this encounter Visit Diagnoses Not on filedocumented in this encounter Administered Medications Active Administered Medications - up to 3 most recent administrations Medication Order MAR Action Action Date Dose Rate Site acetaminophen (TYLENOL) 32 mg/mL oral solution 650 mg 650 mg, feeding tube, Every 4 hours PRN, 1st line for pain, fever, Starting on Mon02/01/22 at 1750, Administer if patient receiving meds per tube., Indications: Fever, PainIndications:Fever,Pain acetaminophen (TYLENOL) suppository 650 mg 650 mg, rectal, Every 4 hours PRN, 1st line for pain, fever, Starting on Mon02/01/22 at 1750, Administer if patient cannot tolerate enteral route., Indications: Fever, PainIndications:Fever,Pain acetaminophen (TYLENOL) tablet 650 mg 650 mg, oral, Every 4 hours PRN, 1st line for pain, fever, Starting on Mon02/01/22 at 1750, Administer if patient can swallow tablets., Indications: Fever, PainIndications:Fever,Pain bisacodyL (DULCOLAX) suppository 10 mg 10 mg, rectal, Daily PRN, constipation, If no results 24 hours after polyethylene glycol (MIRALAX). May give bisacodyl tablet if tolerating PO., Starting on Mon02/01/22 at 1750, Indications: constipationIndications:constipation bisacodyl EC (DULCOLAX EC) tablet 10 mg 10 mg, oral, Daily PRN, constipation, If no results 24 hours after polyethylene glycol (MIRALAX). May give bisacodyl supp if not tolerating PO), Starting on Mon02/01/22 at 1750, Do not crush, chew, cut, dissolve, open or otherwise manipulate tablet/capsule., Indications: constipationIndications:constipation Carrier Fluids for Secondary Infusion - 0.9% Sodium Chloride 30 mL, intravenous, As needed, For priming tubing and/or flushing, Starting on Mon02/01/22 at 1750, 0-250 ml/hr to flush line after IV infusions when no maintenance IV ordered. Infuse 30mL at the same rate as the secondary infusion. Run as primary IV, not intended for KVO. ondansetron (ZOFRAN) injection 4 mg 4 mg, intravenous, Administer over 2 Minutes, Every 6 hours PRN, nausea, vomiting, if not tolerating PO, Starting on Mon02/01/22 at 1750, Indications: Nausea and VomitingIndications:Nausea and Vomiting ondansetron ODT (ZOFRAN-ODT) disintegrating tablet 4 mg 4 mg, oral, Every 6 hours PRN, nausea, vomiting, Starting on Mon02/01/22 at 1750, Indications: Nausea and VomitingIndications:Nausea and Vomiting polyethylene glycol (MIRALAX) packet 17 g 17 g, oral, Daily PRN, constipation, Starting on Mon02/01/22 at 1750, Indications: constipationIndications:constipation sodium chloride 0.9% flush 0.5-20 mL 0.5-20 mL, intra-catheter, Every 8 hours scheduled, First dose on Mon02/01/22 at 2200, Flush volume based on line type and size. sodium chloride 0.9% flush 0.5-20 mL 0.5-20 mL, intra-catheter, As needed, line care, Starting on Mon02/01/22 at 1750, Flush volume based on line type and size. Flush before and after each use. documented in this encounter Orders Medications Ordered That Jonathan ht Not Have Been Administered Count Last Ordered Date First Ordered Date acetaminophen (TYLENOL) 32 m g/mL oral solution 650 mg 1 02/01/2022 acetaminophen (TYLENOL) suppository 650 mg 1 02/01/2022 acetaminophen (TYLENOL) tablet 650 mg 1 10/2021 bisacodyL (DULCOLAX) suppository 10 mg 1 bisacodyl EC (DULCOLAX EC) tablet 10 mg 1 0 02/01/2022 Carrier Fluids for Secondary Infusion - 0.9% Sodium Chloride 1 02/01/2022 ondansetron (ZOFRAN) injection 4 mg 1 02/01 ondansetron ODT (ZOFRAN-ODT) disintegrating tablet 4 mg 1 02/01/2022 polyethylene glycol (MIRALAX) packet 17 g 1 02/01/2022 sodium chloride 0.9% flush 0.5-20 mL 2 10/2021 Nursing Count Last Ordered Date First Orde red Date ACTIVITY 1 02/01/2022 MAINTAIN IV ACCESS 1 02/01/2022 NOTIFY PROVIDER (SPECIFY) 1 02/01/[address] PL[address] SEQUENTIAL COMPRESSION DEVICE 1 02/01 VITAL SIGNS 1 02/01/2022 WEIGH PATIENT 1 02/01/2022 OT Count Last Ordered Date First Orde red Date OT EVALUATE AND TREAT 1 02/01/2022 PT Count Last Ordered Date First Orde red Date PT EVALUATE AND TREAT 1 02/01/2022 IV Count Last Ordered Date First Orde red Date INSERT PERIPHERAL IV 1 02/01/2022 Admission Count Last Ordered Date First Orde red Date ADMIT TO INPATIENT 1 02/01/2022 CORE MEASURES Count Last Ordered Date First Ord ered Date REASON FOR NO VTE PROPHYLAXI S - HOSPITAL ADMISSION - MEDICATIONS 1 02/01/2022 documented in this encounter Additional Health Concerns Infection Onset Date Last Indicated Resolved Time COVID: Suspected 06/06/2023 06/06/2023 06/06/2023 9:39 PM 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
--- OUTSIDE RECORDS SUMMARY | 2024-06-23 07:06 | XMS_ITS | Clinical Summary ---
Author Organization [facility] Address [address] [place] [address] Care Team Providers Care Auction Assistant Name Role Phone Don Walton Primary Care Provider Allergies Active Allergy Reactions Criticality Noted Date Comments Ciprofloxacin Hives Medium 06/02/2023 Patient stated he has previously tolerated PO. 06/02/23 had redness and hives after IV dose. Penicillins Rash Medium 05/08/2019 Vtehspeomcrb-Folnwcnzlu-Ncn trs Angioedema High 09/17/[address] (PROTONIX) 40 mg EC tabletIndications: Stress Ulcer Prophylaxis Take 1 tablet (40 mg total) by mouth daily 08/23/[address] (CYMBALTA) 30 mg capsule Take 1 capsule (30 mg total) by mouth 2 (two) times a day 03/03/20 20 Active folic acid (FOLVITE) 1 mg tablet Take 1 tablet (1,000 mcg total) by mouth daily 03/29/20 21 Active melatonin 10 mg tablet Take 1 tablet (10 mg total) by mouth nightly as needed 1st line Active senna-docusate (PERICOLACE) 8.6-50 mg Take 2 tablets by mouth 2 (two) times a day as needed for constipation 60 tablet 07/13/19 22 Active nicotine (NICODERM CQ) [address] 1 patch on the skin daily 30 patch 01/12/20 22 Active multivit zspwmrhx-lpff-IG-c alcium (THERA-M) 9 mg iron-400 mcg tabletIndications: Vitamin Deficiency Prevention Take 1 tablet by mouth daily Active aspirin 81 mg enteric coated tablet Take 1 tablet (81 mg total) by mouth daily Started at rehab Active polyethylene glycol (MIRALAX) 17 gram packetIndications: constipation Take 1 packet (17 g total) by mouth 3 (three) times a day 60 packet 02/05/20 22 Active traZODone (DESYREL) 50 mg tablet 03/14/20 22 Active gabapentin (NEURONTIN) 300 mg capsule Take by mouth 3 (three) times a day 03/21/20 22 Active Creon 12,000-38,000 -60,000 unit capsule 3 (three) times a day with meals 08/31/19 23 Active diphenhydrAMINE (BENADRYL) 50 mg capsule Take 1 capsule (50 mg total) by mouth daily Active losartan (COZAAR) 25 mg tablet Take 1 tablet (25 mg total) by mouth daily 05/11/20 23 Active tiZANidine (ZANAFLEX) 4 mg tablet TAKE 1 TO 2 TABLETS BY MOUTH EVERY NIGHT AT BEDTIME NEEDED FOR MUSCLE SPASMS 05/07/20 23 Active fenofibrate (TRIGLIDE) 160 mg tablet Take 1 tablet (160 mg total) by mouth daily Active ondansetron ODT (ZOFRAN-ODT) 4 mg disintegrating tablet Take 1 tablet (4 mg total) by mouth every 8 (eight) hours as needed for nausea or vomiting 20 tablet 06/13/19 24 Active acetaminophen (TYLENOL) 325 mg tabletIndications: Fever,Pain Take 2 tablets (650 mg total) by mouth every 4 (four) hours as needed for pain 10/01/19 24 Active amLODIPine (NORVASC) 10 mg tablet Take 1 tablet (10 mg total) by mouth daily 01/01/20 24 Active traMADoL (ULTRAM) 50 mg tablet Take 1 tablet (50 mg total) by mouth every 6 (six) hours for 10 doses 10 tablet 01/10/20 24 Active Active Problems Problem Noted Date Diagnosed Date Thrombocytosis 09/30/2023 Acute pancreatitis without n ecrosis or infection, unspecified 09/20/2023 Constipation 06/10/2023 Assessment & Plan (06/12/2023 2:18 PM TRAVEL CLERK): Patient reports feeling constipated, gassy and bloated. CT a/p on 06/10 showed similar findings as before with actue interstitial pancreatitis and severe narrowing at the protal splenic confluence and superior mesenteric vein, but noted stool throughout colon. Likely constipation contributing to pain, as patient reports that he was able to have several BM's after mag citrate and enema. -continue bowel regimen -mag citrate, enema again if needed. Hypokalemia 06/08/2023 Assessment & Plan (06/09/2023 1:55 PM TRAVEL CLERK): Resolved. 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 Increased pain following ERCP with new stents placed on Monday. Still drinking intermittently which is probably contributing as well. LFT's normal, no concern for cholangitis on imaging and no infectious symptoms so will defer antibiotics. - improved, start clears today - dec IVF to 100 cc/hr - cont pain control Chest pain 06/04/2023 Assessment & Plan (06/05/2023 12:48 PM TRAVEL CLERK): Likely from pancreatitis. Also tender to palpation initially so may be a musculoskeletal component from dry heaving. Trops negative. EKG no ischemic changes. He reports hx of MN in the past, unclear circumstances. He had an exercise stress test in spring at an outside facility that he says was normal. Cont ASA. Gram-negative bacteremia 04/11/2023 Assessment & Plan (04/13/2023 7:02 PM TRAVEL CLERK): - due to cholangitis - BCx + for E coli and K. Pneumoniae - repeat BCx drawn 04/11, ngtd - pansensitive organisms - d/c home today with flagyl/cipro Cholangitis 04/10/2023 Assessment & Plan (04/12/2023 6:21 PM TRAVEL CLERK): - Improving - 04/10 ERCP - removal of two migrates stents with biliary obstruction and replaced with 2 new stents in biliary stricture - PRN analgesics and antiemetics Assessment & Plan (04/10/2023 2:40 AM TRAVEL CLERK): -meets [place] criteria for acute cholangitis based on WBC count >10, -Tbili >2, AST/ALT/Alk phos >1.5x ULN and radiographic evidence of biliary obstruction -likely etiology of N/V, abdominal pain and low grade fever in ED -suspect related to migrated biliary stent -does not meet sepsis criteria -continue IV cipro/metronidazole -will likely need ERCP and biliary stent exchange on Mon; less likely MRCP------> GI consult ordered in Epic -NPO x sips, ice chips -IVFs overnight -PRN analgesics and antiemetics -repeat CBC, BMP, HFP in AM 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 Suspect still secondary to prior pancreatitis episode. He endorses following clear liquid diet at home and no recent alcohol use. CT noted interval worsening of acute uncomplicated interstitial pancreatitis resulting in new severe narrowing of the portosplenic confluence and the superior mesenteric vein. No evidence of fluid collection or necrosis. Unchanged pancreatitic duct stricture in the head. CXR with new linear atelectasis in left lower lobe. No consolidation, effusions, edema. Patient reported feeling better and diet was advanced. On 06/10 patient noted worsening pain with po intake. Labs with slight increase to lipase and WBC. Patient made NPO again. CT a/p was done which showed stable pancreatitis, but noted worsening constipation, likely contributing to his pain. Patient was given mag citrate and enema and he had numerous BMs, noting improvement in pain today. -Supportive care with pain control, and antiemetics. Now tolerating low fat diet - Pain control with scheduled Tylenol 1000 mg q8 hr, toradol 15 mg q6 hr, Oxycodone 10 mg q4 hr PRN. Stopped dilaudid 06/13. Patient reports that heating pads help. - tolerating low fat diet; continue Creon - continue with scheduled gasX, miralax BID and pericolace BID, hold for diarrhea. If needed can try mag citrate or enema again. 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 Ongoing issue with multiple hospitalizations and follows with Biliary here. Complicated by PD obstruction, pseudocyst. He has undergone multiple EUS and ERCPs, he actually had an ERCP planned for next week for stent exchange. He has noted biliary and pancreatic strictures. Continue mild LUQ abdominal pain, tolerated regular diet this am without n/v, non toxic appearing, vitals stable, s/p ERCP with biliary team will follow up in 3 months for repeat eval. - Pain control with po scheduled acetaminophen, prn oxycodone will need follow up with pmd for ongoing pain vs pain management referral. 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 Ongoing issue with multiple hospitalizations and follows with Biliary here. Complicated by PD obstruction, pseudocyst. He has undergone multiple EUS and ERCPs, he actually had an ERCP planned for next week for stent exchange. He has noted biliary and pancreatic strictures. Today continue mild LUQ abdominal pain, tolerated regular dietn this am without n/v, non toxic appearing, vitals stable, s/p ERCP with biliary team will follow up in 3 months for repeat eval. - Pain control with po oxycodone and ketorolac with IV dilaudid for breakthrough, need regimen planning for home. Elevated liver enzymes 01/04/2022 Overview (01/05/2022): Added automatically from request for surgery [id number] Assessment & Plan (04/11/2023 3:57 PM TRAVEL CLERK): - improving -2/2 stent migration and resultant biliary obstruction Assessment & Plan (04/10/2023 2:27 AM TRAVEL CLERK): -2/2 stent migration and resultant biliary obstruction -mgmt as above -repeat HFP in AM 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 Overview (11/30/2021): Added automatically from request for surgery [id number] Encounter for replacement of biliary stent 11/30 Overview (11/30/2021): Added automatically from request for surgery [id number] Alcohol-induced chronic pancreatitis (CMS/HCC) 0 07/26/2021 Pancreatic pseudocyst 07/26/2021 Severe sepsis 07/08/2021 Assessment & Plan (07/13/2021 9:43 AM TRAVEL CLERK): Pt elevated temp on 2 overnight 38.1 max, hypotensive with normal lactate but new JOSE, transferred to Stepdown, aggressive IVF, BCx, empirical meropenem initiated. Fluid responsive no vasopressor support needed, BCx NGTD, UA was negative on admission without urinary sx Lungs noted rales on physical exam with linear atelectasis on cxr and CT abd/pelvis CT scan abd/pelvis: No new peripancreatic fluid collections are seen. No fluid collection within the abdomen or pelvis to suggest an abscess. Sepsis resolved will finish 7 day course of Levaquin for possible GI and aspiration sources of possible infection Assessment & Plan (07/12/2021 9:40 AM TRAVEL CLERK): Pt elevated temp on 2 overnight 38.1 max, hypotensive with normal lactate but new JOSE, transferred to Stepdown, aggressive IVF, BCx, empirical meropenem initiated. Fluid responsive no vasopressor support needed, BCx NGTD, UA was negative on admission without urinary sx Lungs noted rales on physical exam with linear atelectasis on cxr and CT abd/pelvis CT scan abd/pelvis: No new peripancreatic fluid collections are seen. No fluid collection within the abdomen or pelvis to suggest an abscess. Sepsis resolved will finish 7 day course of Levaquin for possible GI and aspiration sources of possible infection Assessment & Plan (07/11/2021 10:55 AM TRAVEL CLERK): Pt elevated temp on 2 overnight 38.1 max, hypotensive with normal lactate but new JOSE, transferred to Stepdown, aggressive IVF, BCx, empirical meropenem initiated. Fluid responsive no vasopressor support needed, BCx NGTD, UA was negative on admission without urinary sx Lungs noted rales on physical exam with linear atelectasis on cxr and CT abd/pelvis CT scan abd/pelvis: No new peripancreatic fluid collections are seen. No fluid collection within the abdomen or pelvis to suggest an abscess. Sepsis resolved. Stopped IVF, transitioned IV abx to PO levaquin (coverage of abd and respiratory sources) for total 7 days course, continue IS, encourage out of bed Assessment & Plan (07/10/2021 9:10 AM TRAVEL CLERK): Pt elevated temp on 2 overnight 38.1 max, hypotensive with normal lactate but new JOSE, transferred to Stepdown, aggressive IVF, BC, empirical meropenem initiated. Fluid responsive no vasopressor support needed, BC NGTD, UA was negative on admission without urinary sx Lungs noted rales on physical exam with linear atelectasis on cxr and CT abd/pelvis CT scan abd/pelvis: No new peripancreatic fluid collections are seen. No fluid collection within the abdomen or pelvis to suggest an abscess. Sepsis resolved. Stop IVF, transition IV abx to PO levaquin (coverage of abd and respiratory sources) for total 7 days course, continue IS, encourage out of bed Cbc/bmp daily Assessment & Plan (07/09/2021 2:23 PM TRAVEL CLERK): Pt elevated temp on 2 overnight 38.1 max, hypotensive with normal lactate but new JOSE, transferred to Stepdown, aggressive IVF, BC, empirical abx initiated. Fluid responsive no further vasopressor support needed, BC NGTD, UA was negative on admission without urinary sx Lungs noted rales on physical exam with linear atelectasis on cxr and A/P CT CT scan AB/pelvis eval for loculated fluid collect, results : No new peripancreatic fluid collections are seen. No fluid collection within the abdomen or pelvis to suggest an abscess. Plan continue IVF, transition IV abx to PO abx for total 7 days course, continue IS, encourage out of bed Cbc/bmp daily Assessment & Plan (07/08/2021 1:53 PM TRAVEL CLERK): Pt elevated temp overnight 38.1 max, hypotensive with normal lactate but new JOSE, transferred to Stepdown, aggressive IVF, BC, empirical abx initiated. Fluid responsive no further vasopressor support needed Today BC NGTD, UA was negative on admission without urinary sx Lungs noted rales on physical exam with atelectasis on cxr and A/P CT CT scan AB/pelvis eval for loculated fluid collect, results : No new peripancreatic fluid collections are seen. No fluid collection within the abdomen or pelvis to suggest an abscess. Plan continue IVF, antipyretic, VSS, Stepdown status, empiric abx, start IS, CBC, BMP, Severe malnutrition 07/07/2021 Assessment & Plan (07/13/2021 9:43 AM TRAVEL CLERK): Dobbhoff placed 2/10, tube feeding to initiated Osmolite 1.5 at 55mL/hr over 24h via NJ tube continuous via pump. Flush with 150mL water q4h. Now at goal of 55cc/hr. Can cycle at home as instructed. Will continue TF until follow up with GI as outpatient Assessment & Plan (07/12/2021 9:39 AM TRAVEL CLERK): Dobbhoff placed 2/10, tube feeding to initiated Osmolite 1.5 at 55mL/hr over 24h via NJ tube continuous via pump. Flush with 150mL water q4h. Now at goal of 55cc/hr. Can cycle at home as instructed. Will continue TF until follow up with GI as outpatient Assessment & Plan (07/11/2021 10:55 AM TRAVEL CLERK): Dobbhoff placed 2/10, tube feeding to initiated TF recommendations: Goal: Osmolite 1.5 at 55mL/hr over 24h via NJ tube continuous via pump. Flush with 150mL water q4h. Initiate TF at 10mL/hr and increase by 10mL q4h until goal rate is reached Pt at goal feeding 55 ml/hr and tolerating without event Continue TF feeding Monitor BMP, Mag, Phos Assessment & Plan (07/10/2021 9:08 AM TRAVEL CLERK): Dilshaddusty placed 07/08, tube feeding to initiated TF recommendations: Goal: Osmolite 1.5 at 55mL/hr over 24h via NJ tube continuous via pump. Flush with 150mL water q4h. Initiate TF at 10mL/hr and increase by 10mL q4h until goal rate is reached Pt at goal feeding 55 ml/hr and tolerating without event Continue TF feeding Monitor BMP, Mag, Phos Assessment & Plan (07/09/2021 2:25 PM TRAVEL CLERK): Familiahoff placed 07/08, tube feeding to initiated TF recommendations: Goal: Osmolite 1.5 at 55mL/hr over 24h via NJ tube continuous via pump. Flush with 150mL water q4h. Initiate TF at 10mL/hr and increase by 10mL q4h until goal rate is reached Pt at goal feeding 55 ml/hr and tolerating without event Continue TF feeding Obtain mag and phos as they have been trending down replete prn Assessment & Plan (07/08/2021 1:11 PM TRAVEL CLERK): Cherelle placed 07/08, tube feeding to initiate TF recommendations: Goal: Osmolite 1.5 at 55mL/hr over 24h via NJ tube continuous via pump. Flush with 150mL water q4h. Initiate TF at 10mL/hr and increase by 10mL q4h until goal rate is reached Chronic pancreatitis, unspecified pancreatitis t ype 07/06/2021 Assessment & Plan (07/13/2021 9:42 AM TRAVEL CLERK): Ongoing acute episode of (developing) chronic pancreatitis. Just discharged from the hospital for the same complaints 06/29 (7 days ago). He notes being able to eat low fat solids until 3 days ago when he noted his typical abdominal pain recurred. He ran out of his oxycodone prior to admission. He stopped eating and only able to drink small amounts of clear liquids. On arrival back to the ED repeat A/P CT scan shows Slight interval improvement in acute interstitial edematous pancreatitis with persistent pancreatic ductal dilatation and small peripancreatic fluid collections. He received IV pain medications in the ED with improvement in pain. Biliary GI recs full pancreatic rest with enteral feedings. GI consult pt dilshadff placed 2/[address] c/s tube feeding plan initiated and now at goal feeding and tolerating well. Will wean from IV pain meds to oxycodone for discharge to home Assessment & Plan (07/12/2021 9:38 AM TRAVEL CLERK): Ongoing acute episode of (developing) chronic pancreatitis. Just discharged from the hospital for the same complaints 06/29 (7 days ago). He notes being able to eat low fat solids until 3 days ago when he noted his typical abdominal pain recurred. He ran out of his oxycodone prior to admission. He stopped eating and only able to drink small amounts of clear liquids. On arrival back to the ED repeat A/P CT scan shows Slight interval improvement in acute interstitial edematous pancreatitis with persistent pancreatic ductal dilatation and small peripancreatic fluid collections. He received IV pain medications in the ED with improvement in pain. Biliary GI recs full pancreatic rest with enteral feedings. GI consult pt dobbhoff placed 2/[address] c/s tube feeding plan initiated and now at goal feeding and tolerating well. Will wean from IV pain meds to oxycodone for discharge tomorrow 07/13 Assessment & Plan (07/11/2021 10:53 AM TRAVEL CLERK): Ongoing acute episode of (developing) chronic pancreatitis. Just discharged from the hospital for the same complaints 06/29 (7 days ago). He notes being able to eat low fat solids until 3 days ago when he noted his typical abdominal pain recurred. He ran out of his oxycodone prior to admission. He stopped eating and only able to drink small amounts of clear liquids. On arrival back to the ED repeat A/P CT scan shows Slight interval improvement in acute interstitial edematous pancreatitis with persistent pancreatic ductal dilatation and small peripancreatic fluid collections. He has received IV pain medications in the ED with improvement in pain. Biliary GI recs full pancreatic rest with enteral feedings. GI consult pt dobbhoff placed 2/10 for pancreatic rest. Continue conservative treatment (IVF, analgesic, antiemetics) RD c/s tube feeding plan initiated and now at goal feeding and tolerating well Goal to decrease narcotic pain med use Scheduled acetaminophen and Ketorolac CTM Likely home Monday with home tube feedings. Encouraged use of PO pain medications today in preparation for discharge Assessment & Plan (07/10/2021 9:07 AM TRAVEL CLERK): Ongoing acute episode of developing chronic pancreatitis. Just discharged from the hospital for the same complaints 06/29 (7 days ago). He notes being able to eat low fat solids until 3 days ago when he noted his typical abdominal pain recurred. He ran out of his oxycodone prior to admission. He stopped eating and only able to drink small amounts of clear liquids. On arrival back to the ED repeat A/P CT scan shows Slight interval improvement in acute interstitial edematous pancreatitis with persistent pancreatic ductal dilatation and small peripancreatic fluid collections. He has received IV pain medications in the ED with improvement in pain. In speaking with the biliary team, plans to recommend full pancreatic rest enteral feedings. GI consult pt dobbhoff placed 2/10 for pancreatic rest. Continue conservative treatment (IVF, analgesic, antiemetics) RD c/s tube feeding plan initiated and now at goal feeding and tolerating well Goal to decrease narcotic pain med use Scheduled acetaminophen and Ketorolac CTM Likely home Monday with home tube feedings Assessment & Plan (07/09/2021 2:30 PM TRAVEL CLERK): Ongoing acute episode of chronic pancreatitis. Just discharged from the hospital for the same complaints 06/29 (7 days ago). He notes being able to eat low fat solids until 3 days ago when he noted his typical abdominal pain recurred. He ran out of his oxycodone yesterday. He stopped eating and only able to drink small amounts of clear liquids. On arrival back to the ED repeat A/P CT scan shows Slight interval improvement in acute interstitial edematous pancreatitis with persistent pancreatic ductal dilatation and small peripancreatic fluid collections. He has received IV pain medications in the ED with improvement in pain. In speaking with the biliary team plans to recommend full pancreatic rest enteral feedings. GI consult pt dobbhoff placed 2/10 for pancreatic rest. Continue conservative treatment (IVF, analgesic, antiemetics) RD c/s tube feeding plan initiated and now at goal feeding and tolerating well Goal to decrease narcotic pain med use Scheduled acetaminophen and Ketorolac CTM Assessment & Plan (07/08/2021 1:49 PM TRAVEL CLERK): Ongoing acute episode of chronic pancreatitis. Just discharged from the hospital for the same complaints 06/29 (7 days ago). He notes being able to eat low fat solids until 3 days ago when he noted his typical abdominal pain recurred. He ran out of his oxycodone yesterday. He stopped eating and only able to drink small amounts of clear liquids. On arrival back to the ED repeat A/P CT scan shows Slight interval improvement in acute interstitial edematous pancreatitis with persistent pancreatic ductal dilatation and small peripancreatic fluid collections. He has received IV pain medications in the ED with improvement in pain. In speaking with the biliary team plans to recommend full pancreatic rest enteral feedings. GI consult pt cherelle mccartney 07/08 for pancreatic rest. Continue conservative treatment (IVF, analgesic, antiemetics) RD c/s for tube feeding plan Assessment & Plan (07/07/2021 11:22 AM TRAVEL CLERK): Ongoing acute episode of chronic pancreatitis. Just discharged from the hospital for the same complaints 06/29 (7 days ago). He notes being able to eat low fat solids until 3 days ago when he noted his typical abdominal pain recurred. He ran out of his oxycodone yesterday. He stopped eating and only able to drink small amounts of clear liquids. On arrival back to the ED repeat A/P CT scan shows Slight interval improvement in acute interstitial edematous pancreatitis with persistent pancreatic ductal dilatation and small peripancreatic fluid collections. He has received IV pain medications in the ED with improvement in pain. In speaking with the biliary team plans to recommend full pancreatic rest with placement of G-J tube for enteral feedings. Speaking with the patient he is not entirely sure he is on board for tube placement. Will keep NPO Formally consult GI Continue conservative treatment (IVF, analgesic, antiemetics) RD c/s for low fat diet plan Assessment & Plan (07/06/2021 5:30 PM TRAVEL CLERK): Ongoing acute episode of chronic pancreatitis. Just discharged from the hospital for the same complaints 06/29 (7 days ago). He notes being able to eat low fat solids until 3 days ago when he noted his typical abdominal pain recurred. He ran out of his oxycodone yesterday. He stopped eating and only able to drink small amounts of clear liquids. On arrival back to the ED repeat A/P CT scan shows Slight interval improvement in acute interstitial edematous pancreatitis with persistent pancreatic ductal dilatation and small peripancreatic fluid collections. He has received IV pain medications in the ED with improvement in pain. In speaking with the biliary team plans to recommend full pancreatic rest with placement of G-J tube for enteral feedings. Speaking with the patient he is not entirely sure he is on board for tube placement. Will keep NPO Formally consult GI Continue conservative treatment JOSE (acute kidney injury) 07/06/2021 Assessment & Plan (07/13/2021 9:42 AM TRAVEL CLERK): Likely ATN related to hypotensive episode. Cr peaked at Cr at 2.31, now back to baseline after aggressive IVF and now tolerating TF. Assessment & Plan (07/12/2021 9:36 AM TRAVEL CLERK): Likely ATN related to hypotensive episode. Cr peaked at Cr at 2.31, now back to baseline after aggressive IVF and now tolerating TF. Assessment & Plan (07/11/2021 10:54 AM TRAVEL CLERK): Likely ATN related to hypotensive episode. Cr peaked at Cr at 2.31, now back to baseline after aggressive IVF, continue to monitor bmp, continue fluids Assessment & Plan (07/10/2021 9:08 AM TRAVEL CLERK): Likely ATN related to hypotensive episode. Cr peaked at Cr at 2.31, now back to baseline after aggressive IVF, continue to monitor bmp, continue fluids Assessment & Plan (07/09/2021 2:29 PM TRAVEL CLERK): Cr at baseline after aggressive IVF, continue to monitor bmp, continue fluids Assessment & Plan (07/08/2021 1:10 PM TRAVEL CLERK): Cr baseline 0.8 now up to 1.3 on arrival due to po intolerance Aggressive IVF will monitor urine output Today net fluid intake 191 Cr trended up to 2.31 continue aggressive fluids Daily bmp Continue IVF Assessment & Plan (07/07/2021 11:19 AM TRAVEL CLERK): Cr baseline 0.8 now up to 1.3 on arrival due to po intolerance Aggressive IVF will monitor urine output Today net fluid intake 191 Cr 1.05 improving with fluids Daily bmp Continue IVF Assessment & Plan (07/06/2021 5:39 PM TRAVEL CLERK): Cr baseline 0.8 now up to 1.3 on arrival due to po intolerance Aggressive IVF will monitor urine output Alcohol dependence 06/25/2021 Assessment & Plan (06/07/2023 5:01 AM TRAVEL CLERK): Last drink on Grisel and he reports being motivated to remain abstinent as he knows this helps his pancreatitis Assessment & Plan (01/11/2022 11:23 AM CDT): Long history of dependence. States decreased intake since May but recent binge this past weekend after a in family. Had been on vivitrol injections outpatient. -s/p precedex gtt, now on valium 5mg po TID with taper plan, was decrease to bid 01/10. Plan to decrease daily for 2 days then stop. Pt will follow up with PCP, Psychiatry for continue management dependence, depression. Pt states he has AA resources for discharge. Assessment & Plan (01/10/2022 11:40 AM CDT): Long history of dependence. States decreased intake since May but recent binge this past weekend after a in family. Had been on vivitrol injections outpatient. -s/p precedex gtt, now on valium 5mg po TID with taper plan, will decrease to bid 01/10. -recommend outpt follow up psychiatry, AA program Assessment & Plan (07/13/2021 9:42 AM TRAVEL CLERK): Has a long history of alcohol use with dependence. He states he has not had a drink since before his ERCP 06/22/2021 and has been on Vivitrol injections. His ethanol level on arrival to the ED is negative Plan to continue EtOH cessation and support with outpatient naltrexone therapy and follow up with mental health provider for talk therapy/AA/Support Group Assessment & Plan (07/12/2021 9:36 AM TRAVEL CLERK): Has a long history of alcohol use with dependence. He states he has not had a drink since before his ERCP 06/22/2021 and has been on Vivitrol injections. His ethanol level on arrival to the ED is negative Plan to continue EtOH cessation and support with outpatient naltrexone therapy and follow up with mental health provider for talk therapy/AA/Support Group Assessment & Plan (07/11/2021 10:54 AM TRAVEL CLERK): Has a long history of alcohol use with dependence. He states he has not had a drink since before his ERCP 06/22/2021 and has been on Vivitrol injections. His ethanol level on arrival to the ED is negative Plan to continue EtOH cessation and support with outpatient naltrexone therapy and follow up with mental health provider for talk therapy/AA/Support Group Assessment & Plan (07/10/2021 9:05 AM TRAVEL CLERK): Has a long history of alcohol use with dependence. He states he has not had a drink since before his ERCP 06/22/2021 and has been on Vivitrol injections. His ethanol level on arrival to the ED is negative Plan to continue EtOH cessation and support with outpatient naltrexone therapy and follow up with mental health provider for talk therapy/AA/Support Group Assessment & Plan (07/09/2021 2:33 PM TRAVEL CLERK): Has a long history of alcohol use with dependence. He states he has not had a drink since before his ERCP 06/22/2021 and has been on Vivitrol injections. His ethanol level on arrival to the ED is negative Plan to continue EtOH cessation and support with outpatient naltrexone therapy and follow up with mental health provider for talk therapy/AA/Support Group Assessment & Plan (07/08/2021 1:06 PM TRAVEL CLERK): Has a long history of alcohol use with dependence. He states he has not had a drink since before his ERCP 06/22/2021 and has been on Vivitrol injections. His ethanol level on arrival to the ED is negative Plan to continue EtOH cessation and support with outpatient naltrexone therapy. Assessment & Plan (07/07/2021 11:13 AM TRAVEL CLERK): Has a long history of alcohol use with dependence. He states he has not had a drink since before his ERCP 06/22/2021 and has been on Vivitrol injections. His ethanol level on arrival to the ED is negative Plan to continue EtOH cessation and support with outpatient naltrexone therapy. Assessment & Plan (07/06/2021 5:22 PM TRAVEL CLERK): Has a long history of alcohol use with dependence. He states he has not had a drink since before his ERCP 06/22/2021 and has been on Vivitrol injections. His ethanol level on arrival to the ED is negative Plan to continue EtOH cessation and support with outpatient naltrexone therapy Assessment & Plan (06/28/2021 11:39 AM TRAVEL CLERK): Long standing hx of alcohol dependence with hx of short term remission. Last drink was 1/. States he usually drinks hard liquor shot. Denies hx of seizure or delirium. On vivitrol but did not receive this month's shot due to being on analgesic for post ERCP pain control. -thiamine -folate -MVI -ciwa protocol - PRN Ativan, has not needed Assessment & Plan (06/27/2021 11:47 AM TRAVEL CLERK): Long standing hx of alcohol dependence with hx of short term remission. Last drink was 1/20. States he usually drinks hard liquor shot. Denies hx of seizure or delirium. On vivitrol but did not receive this month's shot due to being on analgesic for post ERCP pain control. -thiamine -folate -MVI -ciwa protocol - PRN Ativan, has not needed Assessment & Plan (06/26/2021 11:59 AM TRAVEL CLERK): Long standing hx of alcohol dependence with hx of short term remission. Last drink was 1/20. States he usually drinks hard liquor shot. Denies hx of seizure or delirium. On vivitrol but did not receive this month's shot due to being on analgesic for post ERCP pain control. -thiamine -folate -MVI -ciwa protocol - Ativan Hypertension 06/25/2021 Assessment & Plan (06/07/2023 5:06 AM TRAVEL CLERK): Markedly hypertensive on ED arrival in the setting of pain -Continue home Amlodipine 10 mg qday and losartan 25 mg qday Assessment & Plan (06/05/2023 12:47 PM TRAVEL CLERK): Hypertensive initially from pain. Improved today. Cont home meds. Assessment & Plan (04/12/2023 6:21 PM TRAVEL CLERK): -continue norvasc Assessment & Plan (04/10/2023 2:31 AM TRAVEL CLERK): -resume norvasc in AM Assessment & Plan (01/11/2022 11:23 AM CDT): Continue norvasc Assessment & Plan (01/10/2022 11:40 AM CDT): Continue norvasc Assessment & Plan (07/13/2021 9:43 AM TRAVEL CLERK): Continue to hold home lisinopril on account of recent hypotension/JOSE. With low normotensive BP will discontinue lisinopril. Follow up with PCP in 2-4 weeks to re evaluate restarting if needed Assessment & Plan (07/12/2021 9:38 AM TRAVEL CLERK): Continue to hold home lisinopril on account of recent hypotension/JOSE. BP normal, may not require lisinopril on discharge. Assessment & Plan (07/11/2021 10:54 AM TRAVEL CLERK): Continue to hold home lisinopril on account of recent hypotension/JOSE. BP normal, may not require lisinopril on discharge. Assessment & Plan (07/10/2021 9:06 AM TRAVEL CLERK): Continue to hold home lisinopril on account of recent hypotension Assessment & Plan (07/09/2021 2:32 PM TRAVEL CLERK): Continue to hold home lisinopril until more stable BP Assessment & Plan (07/08/2021 1:06 PM TRAVEL CLERK): BP hypotensive overnight hold antihypertensives at this time. Assessment & Plan (07/07/2021 11:15 AM TRAVEL CLERK): BP on remain normotensive Continue lisinopril and pain control Assessment & Plan (07/06/2021 5:30 PM TRAVEL CLERK): BP on arrival normotensive Continue lisinopril and pain control Assessment & Plan (06/28/2021 11:39 AM TRAVEL CLERK): Continue home lisinopril 40 mg -Monitor BP -BP stable Assessment & Plan (06/27/2021 11:48 AM TRAVEL CLERK): Continue home lisinopril 40 mg -Monitor BP/Cr -BP stable Assessment & Plan (06/25/2021 4:55 PM TRAVEL CLERK): Continue home lisinopril 40 mg -Monitor BP/Cr -Daily BMP Tobacco abuse 06/25/2021 Major depressive disorder 06/25/2021 Assessment & Plan (06/07/2023 5:07 AM TRAVEL CLERK): Continue home duloxetine 30 mg BID and trazodone 50 mg qhs Assessment & Plan (06/04/2023 11:58 AM TRAVEL CLERK): Cont home meds Assessment & Plan (01/11/2022 11:23 AM CDT): Continue duloxetine scheduled and trazodone prn Assessment & Plan (01/10/2022 11:40 AM CDT): Continue duloxetine scheduled and trazodone prn Assessment & Plan (07/13/2021 9:43 AM TRAVEL CLERK): Most certainly contributing to his long standing alcohol use. Continue home meds duloxetine and trazodone Assessment & Plan (07/12/2021 9:38 AM TRAVEL CLERK): Most certainly contributing to his long standing alcohol use. Continue home meds duloxetine and trazodone Assessment & Plan (07/11/2021 10:54 AM TRAVEL CLERK): Most certainly contributing to his long standing alcohol use. Continue home meds duloxetine and trazodone Assessment & Plan (07/10/2021 9:06 AM TRAVEL CLERK): Most certainly contributing to his long standing alcohol use. Continue home meds duloxetine and trazodone Assessment & Plan (07/09/2021 2:30 PM TRAVEL CLERK): Most certainly contributing to his long standing alcohol use now with cessation Continue home meds duloxetine and trazodone Assessment & Plan (07/08/2021 1:09 PM TRAVEL CLERK): Most certainly contributing to his long standing alcohol use now with cessation Continue home meds duloxetine and trazodone Assessment & Plan (07/07/2021 11:16 AM TRAVEL CLERK): Most certainly contributing to his long standing alcohol use now with cessation Continue home meds duloxetine and trazodone Assessment & Plan (07/06/2021 5:32 PM TRAVEL CLERK): Most certainly contributing to his long standing alcohol use now with cessation Continue home meds duloxetine and trazodone Assessment & Plan (06/28/2021 11:39 AM TRAVEL CLERK): Continue home Trazodone 50 mg, Cymbalta 30 mg Resume Biofeedback at discharge Assessment & Plan (06/27/2021 11:48 AM TRAVEL CLERK): Continue home Trazodone 50 mg, Cymbalta 30 mg Resume Biofeedback at discharge Assessment & Plan (06/25/2021 4:57 PM TRAVEL CLERK): Continue home Trazodone 50 mg, Cymbalta 30 mg Resume Biofeedback at discharge Pancreatic duct obstruction 06/11/2021 Overview (06/11/2021): Added automatically from request for surgery [id number] Abdominal pain 06/11/2021 Overview (06/11/2021): Added automatically from request for surgery [id number] Necrotizing pancreatitis 10/21/2019 Therapeutic opioid induced constipation 10/21/19 20 Assessment & Plan (07/13/2021 9:44 AM TRAVEL CLERK): Continue bowel regimen Assessment & Plan (07/12/2021 9:41 AM TRAVEL CLERK): Bowel regimen ordered without BM. Will titrate bowel regimen Assessment & Plan (07/11/2021 10:58 AM TRAVEL CLERK): Bowel regimen ordered Assessment & Plan (06/28/2021 11:39 AM TRAVEL CLERK): Pt states no BM for the past week. Likely due to decrease intake and vomiting, possible contribution from opioids -daily bowel regimen, had BM Monday Assessment & Plan (06/27/2021 11:48 AM TRAVEL CLERK): Pt states no BM for the past week. Likely due to decrease intake and vomiting, possible contribution from opioids -daily bowel regimen Assessment & Plan (06/26/2021 12:00 PM TRAVEL CLERK): Pt states no BM for the past week. Likely due to decrease intake and vomiting, possibly contribution from opioids -daily bowel regimen -clear liquid diet Acute pancreatitis 05/08/2019 Assessment & Plan (06/28/2021 11:38 AM TRAVEL CLERK): Hx of chronic pancreatis starting 3 years ago, worsening over the past one year 2/2 etoh abuse/dependency. Pt is followed by GI Dr. Loya. EUS 06/18 with enlarged lymph node in gastrohepatic ligament (scant fragments of benign pancreatic parenchyma and fibrosis), mass like enlargement of the pancreatic head likely due to pancreatitis resulting in PD obstruction, suggestion of a stricture in the lower third of the main bile duct, s/p celiac plexus ran,. ERCP with pancreas divisum vs pseudo-divisum due to pancreatitis, obstruction of the dorsal PD due to pancreatitis with findings of chronic pancreatitis in the opacified area, walter moderate biliary stricture s/p biliary sphincterotomy and plastic stent placed. Lipase today 772 concerning for post-ERCP acute pancreatitis. -advance to low fat diet today -dilaudid, oxycodone prn and ketorolac scheduled for pain control - PPI -continue home compazine prn, zofran prn -If tolerating diet tomorrow consider discharge home -GI consult -Advised complete alcohol cessation. Also needs to stop smoking, but alcohol cessation should be prioritized. ?? Assessment & Plan (06/27/2021 11:46 AM TRAVEL CLERK): Hx of chronic pancreatis starting 3 years ago, worsening over the past one year 2/2 etoh abuse/dependency. Pt is followed by GI Dr. Loya. EUS 06/18 with enlarged lymph node in gastrohepatic ligament (scant fragments of benign pancreatic parenchyma and fibrosis), mass like enlargement of the pancreatic head likely due to pancreatitis resulting in PD obstruction, suggestion of a stricture in the lower third of the main bile duct, s/p celiac plexus ran,. ERCP with pancreas divisum vs pseudo-divisum due to pancreatitis, obstruction of the dorsal PD due to pancreatitis with findings of chronic pancreatitis in the opacified area, walter moderate biliary stricture s/p biliary sphincterotomy and plastic stent placed. Lipase today 772 concerning for post-ERCP acute pancreatitis. -advance to ful liquid diet -dilaudid, oxycodone prn and ketorolac scheduled for pain control - PPI -continue home compazine prn, zofran prn -reassess diet on Monday -GI consult -Advised complete alcohol cessation. Also needs to stop smoking, but alcohol cessation should be prioritized. ?? Assessment & Plan (06/26/2021 11:59 AM TRAVEL CLERK): Hx of chronic pancreatis starting 3 years ago, worsening over the past one year 2/2 etoh abuse/dependency. Pt is followed by GI Dr. Loya. EUS 06/18 with enlarged lymph node in gastrohepatic ligament (scant fragments of benign pancreatic parenchyma and fibrosis), mass like enlargement of the pancreatic head likely due to pancreatitis resulting in PD obstruction, suggestion of a stricture in the lower third of the main bile duct, s/p celiac plexus ran,. ERCP with pancreas divisum vs pseudo-divisum due to pancreatitis, obstruction of the dorsal PD due to pancreatitis with findings of chronic pancreatitis in the opacified area, walter moderate biliary stricture s/p biliary sphincterotomy and plastic stent placed. Lipase today 772 concerning for post-ERCP acute pancreatitis. -clear liquid diet -dilaudid, oxycodone prn and ketorolac scheduled for pain control - PPI -continue home compazine prn, zofran prn -reassess diet on Monday -GI consult -Advised complete alcohol cessation. Also needs to stop smoking, but alcohol cessation should be prioritized. ?? Resolved Problems Problem Noted Date Diagnosed Date Resolved Date Common bile duct obstruction secondary to biliary stent 04/09/2023 04/11/2023 Assessment & Plan (04/10/2023 2:38 AM TRAVEL CLERK): -migrated stent likely etiology of presenting symptoms and lab, CT findings -will likely need ERCP for stent exchange on Monday Metabolic acidosis, increased anion gap (IAG) 06/25/1907/09/2021 Assessment & Plan (07/09/2021 2:31 PM TRAVEL CLERK): Dobbhoff placed 07/08, to start tube feeding TF recommendations: Goal: Osmolite 1.5 at 55mL/hr over 24h via [place] tube continuous via pump. Flush with 150mL water q4h. Initiate TF at 10mL/hr and increase by 10mL q4h until goal rate is reached Assessment & Plan (07/08/2021 1:49 PM TRAVEL CLERK): Due to starvation in the setting of intolerance to PO for the last 3-4 days. Will provide aggressive IVF Dobbhoff placed 07/08, to start tube feeding TF recommendations: Goal: Osmolite 1.5 at 55mL/hr over 24h via NJ tube continuous via pump. Flush with 150mL water q4h. Initiate TF at 10mL/hr and increase by 10mL q4h until goal rate is reached Assessment & Plan (07/07/2021 11:16 AM TRAVEL CLERK): Due to starvation in the setting of intolerance to PO for the last 3-4 days. Will provide aggressive IVF Continue to discuss enteral feedings with the patient going forward, currently pt is refusing, GI will readdress with pt today with goal for placement today should pt agree. Change IVF to D5LR Assessment & Plan (07/06/2021 5:38 PM TRAVEL CLERK): Due to starvation in the setting of intolerance to PO for the last 3-4 days. Will provide aggressive IVF Continue to discuss enteral feedings with the patient going forward Assessment & Plan (06/28/2021 11:39 AM TRAVEL CLERK): Likely dehydration from pancreatitis, n/v and poor intake. Heme concentrated hgb 14.9 (baseline 8-9), wbc 14.4 no source of infection likely heme concentrated, anion gap 20, UA ketone +1. Resolved with IVF Assessment & Plan (06/27/2021 11:47 AM TRAVEL CLERK): Likely dehydration from pancreatitis, n/v and poor intake. Heme concentrated hgb 14.9 (baseline 8-9), wbc 14.4 no source of infection likely heme concentrated, anion gap 20, UA ketone +1. Resolved with IVF Assessment & Plan (06/26/2021 12:00 PM TRAVEL CLERK): Likely dehydration from pancreatitis, n/v and poor intake. Heme concentrated hgb 14.9 (baseline 8-9), wbc 14.4 no source of infection likely heme concentrated, anion gap 20, UA ketone +1 -IVF -Clear liquid diet -Daily bmp Immunizations Name Administration Dates Next Due Flucelvax Influenza Quad 03/03/2019 Influenza, Quadrivalent, Spl it, Preservative Free, Intramuscular 03/08/2021,02/05/2018 Td, adsorbed 07/01/1998 Surgical History Surgery Date Site/Laterality Comments APPENDECTOMY HERNIA REPAIR UPPER GASTROINTESTINAL ENDOSCOPY ERCP Medical History Medical History Date Comments Tobacco use Gastric reflux History of transfusion Hypertension Pulmonary embolism (HCC) 2019 Peptic ulceration Alcoholic pancreatitis 08/2019 SIRS, pne umonia, bacteremia, JOSE, intubation Recurrent pancreatitis 05/31/2021 Hyperlipidemia GERD (gastroesophageal reflux disease) Metabolic acidosis, increase d anion gap (IAG) 06/25/2021 Depression Bronchitis Anxiety Osteoarthritis Family History Medical History Relation Name Comments Cancer Father Heart disease Father Pancreatic cancer Father Heart disease Mother Colon cancer Neg Hx Relation Name Status Comments Father Mother Social History Tobacco Use Types Packs/Day Years Used Date Smoking Tobacco: Every Day Cigarettes Smokeless Tobacco: Never Tobacco Cessation:Ready to Q uit: Not Asked; Counseling Given: Not Answered Alcohol Use Standard Drinks/Week Comments Yes 0 (1 standard drink = 0.6 oz pur e alcohol) [facility] Utilities Answer Date Recorded In the past 12 months has th e [employer], gas, oil, or water [employer] threatened to shut off services in your home? No 09/21/2023 Social Connection and Isolat ion Panel [NHANES] Answer Date Recorded In a typical week, how many times do you talk on the phone with family, friends, or neighbors? More than three times a week 09/21/2023 How often do you get togethe r with friends or relatives? More than three times a week 09/21/2023 How often do you attend chur ch or druze services? 1 to 4 times per year 09/21/2023 Do you belong to any clubs o r organizations such as pentecostalism groups, unions, fraternal or athletic groups, or school groups? No 09/21/2023 How often do you attend meet ings of the clubs or organizations you belong to? Never 09/21/2023 Are you , , di vorced, , never , or living with a partner? 09/21/2023 AUDIT-C Answer Date Recorded Q1: How often do you have a drink containing alc ohol? Monthly or less 01/10/2024 Q2: How many drinks containi ng alcohol do you have on a typical day when you are drinking? 1 or 2 01/10/2024 Frequency of Binge Drinking Not on file 12/27 Overall Financial Resource Strain (CARDIA) Answe r Date Recorded How hard is it for you to pa y for the very basics like food, housing, medical care, and heating? Not very hard 09/21/2023 Hunger Vital Sign Answer Date Recorded Within the past 12 months, y ou worried that your food would run out before you got the money to buy more. Never true 09/21/19 24 Within the past 12 months, t he food you bought just didn't last and you didn't have money to get more. Never true 09/21/2023 PRAPARE - Transportation Answer Date Re corded In the past 12 months, has l ack of transportation kept you from medical appointments or from getting medications? No 08/28 In the past 12 months, has l ack of transportation kept you from meetings, work, or from getting things needed for daily living? No 09/21/2023 Housing Stability Vital Sign Answer Dangelo e Recorded In the last 12 months, was t here a time when you were not able to pay the mortgage or rent on time? No 09/21/2023 In the last 12 months, how many places have you lived? 1 09/21/2023 In the last 12 months, was t here a time when you did not have a steady place to sleep or slept in a retirement (including now)? No 09/21/2023 Personal Safety Answer Date Recorded Have you ever been in or are you currently in a harmful physical or emotional relationship or is someone making you feel afraid or unsafe? Denies 01/10/2024 Sex and Gender Information Value Date Recorded Sex Assigned at Not on file Legal Sex Male 1:58 AM TRAVEL CLERK Gender Identity Not on file Sexual Orientation Not on file Occupation Industry Job Start Date Job End Date disability Not on file Not on file Not on file Obstetrics History Last Filed Vital Signs Vital Sign Reading Time Taken Comments Blood Pressure 121/81 02/15/2024 3:03 PM CDT Pulse 87 02/15/2024 3:03 PM CDT Temperature 36.5 ??C (97.7 ??F) 01/10/2024 10:35 AM C DT Respiratory Rate 11 01/10/2024 11:55 AM CDT Oxygen Saturation 99% 02/15/2024 3:03 PM CDT Inhaled Oxygen Concentration - - Weight 87.8 kg (193 lb 9.6 oz) 02/15/2024 3:03 P M CDT Height 185.4 cm (6' 1) 02/15/2024 3:03 PM CDT Body Mass Index 25.54 02/15/2024 3:03 PM CDT Plan of Treatment Health Maintenance Due Date Last Done Comments Colon Cancer Screening-Colonoscopy 1967 Depression Screening 1967 Hepatitis C Screening 1967 Prostate Cancer Screening-PSA 1967 Pneumococcal vaccine <65 (1 of 2 - PCV) 10/16/1973 Hepatitis B Screening 10/16/1985 Regular Well Visit/Exam 18-64 10/16/1985 DTaP/Tdap/Td Vaccine (1 - Tdap) 07/02/1998 9 Zoster Vaccine (1 of 2) 10/16/2017 Covid-19 Vaccine (3 - 2023-2 5 season) 2024 08/18/2020, 07/28/2020 Influenza Vaccine (#1) 2024 , 03/03/2019, 03/03/2019, Additional history exists Medical Devices Implanted Type Area Cloth Spreader Device Identifier Shelf Expiration Date Model / Serial / Lot [employer] 8.5 Fr Nasal Biliary Catheter [id number] - [id number] Implanted:Qty: 1 on 01/26/2022 by Kenneth Loya MD at [facility] Catheter [employer] 06/22/2024 [id number] / / [id number] [employer] 10fr 5cm Biliary Double Pigtail Stent [id number] - [id number] Implanted:Qty: 1 on 09/21/2023 by Kenneth Loya MD at [facility] Stent N/A: Bile Duct [employer] 08/14/2025 [id number] / / [id number] [employer] 10fr 5cm Biliary Stent [id number] - [id number] Implanted:Qty: 1 on 09/21/2023 by Kenneth Loya MD at [facility] Stent N/A: Bile Duct [employer] 07/03/2025 [id number] / / [id number] [employer] 10fr 5cm Biliary Double Pigtail Stent [id number] - [id number] Implanted:Qty: 1 on 09/21/2023 by Kenneth Loya MD at [facility] Stent N/A: Bile Duct [employer] 08/23/2025 [id number] / / [id number] [employer] 10fr 5cm Biliary Double Pigtail Stent [id number] - [id number] Implanted:Qty: 1 on 09/21/2023 by Kenneth Loya MD at [facility] Stent N/A: Bile Duct [employer] 08/23/2025 [id number] / / [id number] [employer] 10fr 5cm Biliary Double Pigtail Stent [id number] - [id number] Implanted:Qty: 1 on 09/21/2023 by Kenneth Loya MD at [facility] Stent N/A: Bile Duct [employer] 08/14/2025 [id number] / / [id number] [employer] 10fr 7cm Biliary Stent [id number] - [id number] Implanted:Qty: 1 on 04/10/2023 by John De Anda MD at [facility] [employer] [id number] 12/13/2024 [id number] / / [id number] [employer] 10fr 7cm Biliary Stent [id number] - [id number] Implanted:Qty: 1 on 04/10/2023 by John De Anda MD at [facility] [employer] [id number] 02/07/2025 [id number] / / [id number] Explanted Type Area Cloth Spreader Device Identifier Shelf Expiration Date Model / Serial / Lot [employer] [id number] Cotton-Young 10fr 7cm Taper Tip Guidewire Proximal Distal Flap - [id number] Implanted:Qty: 1 on 08/04/2021 by Kenneth Loya MD at [facility] Explanted:Qty: 1 on 08/30/2021 at [facility] Stent N/A: Bile Duct [employer] 01/28/2024 [id number] / / [id number] Axios 10 X 10 Stent Delivery System [id number] - [id number] Implanted:Qty: 1 on 08/04/2021 by Kenneth Loya MD at [facility] Explanted:Qty: 1 on 08/30/2021 at [facility] Stent N/A: Bile Duct [employer] 10/13/2022 [id number] / / [id number] [employer] Geenen 7fr 7cm Positioning Sleeve Push Catheter Guidewire [id number] - [id number] Implanted:Qty: 1 on 08/30/2021 at [facility] Explanted:Qty: 1 on 11/01/2021 by Kenneth Loya MD at [facility] Stent N/A: Pancreas [employer] 11/06/2023 [id number] / / [id number] [employer] 10fr 5cm Biliary Stent [id number] - [id number] Implanted:Qty: 1 on 01/26/2022 by Kenneth Loya MD at [facility] Explanted:Qty: 1 on 04/06/2022 by Kenneth Loya MD at [facility] Stent [employer] 11/16/2023 [id number] / / [id number] [employer] Advanix Naviflex 7fr 9cm Radiopaque [place]ipton Endo Marker Color Coded [id number] - [id number] Implanted:Qty: 1 on 01/26/2022 by Kneneth Loya MD at [facility] Explanted:Qty: 1 on 04/06/2022 at [facility] Stent [employer] 04/16/2023 [id number] / / [id number] [employer] Advanix 8.5fr 7cm Rapid Exchange Temporary [place] Stent [id number] - [id number] Implanted:Qty: 1 on 04/06/2022 by Kenneth Loya MD at [facility] Explanted:Qty: 1 on 07/06/2022 by Kenneth Loya MD at [facility] Stent N/A: Pancreas [employer] 10/26/2023 [id number] / / [id number] [employer] Advanix 8.5fr 7cm Rapid Exchange Temporary [place] Stent [id number] - [id number] Implanted:Qty: 1 on 04/06/2022 by Kenneth Loya MD at [facility] Explanted:Qty: 1 on 07/06/2022 by Kenneth Loya MD at [facility] Stent N/A: Pancreas [employer] 10/26/2023 [id number] / / [id number] [employer] 10fr 5cm Biliary Stent [id number] - [id number] Implanted:Qty: 1 on 09/08/2022 by Kenneth Loya MD at [facility] Explanted:Qty: 1 on 11/03/2022 by Kenneth Loya MD at [facility] Stent N/A: Bile Duct [employer] 08/07/2024 [id number] / / [id number] [employer] 10fr 5cm Biliary Stent [id number] - [id number] Implanted:Qty: 1 on 09/08/2022 by Kenneth Loya MD at [facility] Explanted:Qty: 1 on 11/03/2022 by Kenneth Loya MD at [facility] Stent N/A: Bile Duct [employer] 05/04/2024 [id number] / / [id number] [employer] Cartwright Flexi-Stent 7fr 7cm Small Pigtail Flexible .035in Stent 6574 - [id number] Implanted:Qty: 1 on 09/08/2022 by Kenneth Loya MD at [facility] Explanted:Qty: 1 on 11/03/2022 by Kenneth Loya MD at [facility] Stent N/A: Bile Duct [employer] 05/28/2027 [id number] / / [id number] [employer] Geenen 8.5fr 9cm Drain Obstructed Positioning Sleeve Pushing [id number] - [id number] Implanted:Qty: 1 on 04/06/2022 by Kenneth Loya MD at [facility] Explanted:Qty: 1 on 01/05/2023 by Kenneth Loya MD at [facility] Stent N/A: Pancreas [employer] 05/03/2024 [id number] / / [id number] [facility] Cartwright Flexi-Stent 7fr 7cm Small Pigtail Flexible .035in Stent 6574 - [id number] Implanted:Qty: 1 on 11/03/2022 by Kenneth Loya MD at [facility] Explanted:Qty: 1 on 01/05/2023 by Kenneth Loya MD at [facility] Stent N/A: Pancreas [employer] 05/28/2027 6574 / / [id number] [employer] 10fr 5cm Biliary Stent [id number] - [id number] Implanted:Qty: 1 on 11/03/2022 by Kenneth Loya MD at [facility] Explanted:Qty: 1 on 01/05/2023 at [facility] Stent N/A: Bile Duct [employer] 08/15/2024 [id number] / / [id number] [employer] Cotton-Young 10fr 5cm Taper Tip Soft Proximal Distal Flap Gentle [id number] - [id number] Implanted:Qty: 1 on 11/03/2022 by Kenneth Loya MD at [facility] Explanted:Qty: 1 on 01/05/2023 by Kenneth Loya MD at [facility] Stent N/A: Bile Duct [employer] 08/10/2025 [id number] / / [id number] [facility] Cartwright Flexi-Stent 4fr 7cm Small Pigtail Flexible .025in Stent 6544 - [id number] Implanted:Qty: 1 on 01/05/2023 by Kenneth Loya MD at [facility] Explanted:Qty: 1 on 06/02/2023 at [facility] Stent N/A: Pancreas [employer] 07/27/2027 [id number] / / [id number] Description:Not present on t his procedure [employer] 10fr 7cm Biliary Stent [id number] - [id number] Implanted:Qty: 1 on 01/05/2023 by Kenneth Loya MD at [facility] Explanted:Qty: 1 on 06/02/2023 by Jero Soto MD at [facility] Stent N/A: Bile Duct [employer] 12/13/2024 [id number] / / [id number] [employer] 10fr 7cm Biliary Stent [id number] - [id number] Implanted:Qty: 1 on 01/05/2023 by Kenneth Loya MD at [facility] Explanted:Qty: 1 on 06/02/2023 by Jero Soto MD at [facility] Stent N/A: Bile Duct [employer] 12/13/2024 [id number] / / [id number] [employer] 10fr 5cm Biliary Double Pigtail Stent [id number] - [id number] Implanted:Qty: 1 on 06/02/2023 by Kenneth Loya MD at [facility] Explanted:Qty: 1 on 09/21/2023 by Kenneth Loya MD at [facility] Stent N/A: Bile Duct [employer] 04/30/2025 [id number] / / [id number] [employer] 10fr 5cm Biliary Double Pigtail Stent [id number] - [id number] Implanted:Qty: 1 on 06/02/2023 by Kenneth Loya MD at [facility] Explanted:Qty: 1 on 09/21/2023 by Kenneth Loya MD at [facility] Stent N/A: Bile Duct [employer] 04/30/2025 [id number] / / [id number] [employer] 10fr 5cm Biliary Stent [id number] - [id number] Implanted:Qty: 1 on 06/02/2023 by Kenneth Loya MD at [facility] Explanted:Qty: 1 on 09/21/2023 by Kenneth Loya MD at [facility] Stent N/A: Bile Duct [employer] 02/28/2025 [id number] / / [id number] [employer] 10fr 5cm Biliary Double Pigtail Stent [id number] - [id number] Implanted:Qty: 1 on 06/02/2023 by Kenneth Loya MD at [facility] Explanted:Qty: 1 on 09/21/2023 by Kenneth Loya MD at [facility] Stent N/A: Bile Duct [employer] 04/30/2025 [id number] / / [id number] [employer] [id number] Advanix 10fr 5cm Rapid Exchange Temporary [place] Stent - [id number] Implanted:Qty: 1 on 06/18/2021 by Kenneth Loya MD at [facility] Explanted:Qty: 1 on 08/30/2021 at [facility] [employer] 06/30/2022 [id number] / / [id number] Description:Removed prior [employer] Advanix Od10 Fr L7 Cm 1; Temporary Duodenal Bend Stent Biliary Pl [id number] - [id number] Implanted:Qty: 1 on 08/30/2021 at [facility] Explanted:Qty: 1 on 11/01/2021 by Kenneth Loya MD at [facility] N/A: Bile Duct [employer] 06/25/2022 [id number] / / [id number] [employer] Advanix Naviflex 10fr 9cm Lead Joana Radiopaque Flexible [id number] - [id number] Implanted:Qty: 1 on 11/01/2021 by Kenneth Loya MD at [facility] Explanted:Qty: 1 on 01/05/2022 by Contreras Girard MD at [facility] N/A: Pancreas [employer] 07/18/2022 [id number] / / [id number] 10fr 5cm Biliary Stent [id number] - [id number] Implanted:Qty: 1 on 11/01/2021 by Kenneth Loya MD at [facility] Explanted:Qty: 1 on 01/05/2022 at [facility] N/A: Bile Duct [employer] 08/12/2023 [id number] / / [id number] 10fr 7cm Biliary Stent [id number] - [id number] Implanted:Qty: 1 on 11/01/2021 by Kenneth Loya MD at [facility] Explanted:Qty: 1 on 01/05/2022 by Contreras Girard MD at [facility] N/A: Bile Duct [employer] 08/23/2023 [id number] / / [id number] [employer] Cotton-Young 10fr 5cm Taper Tip Soft Proximal Distal Flap Gentle [id number] - [id number] Implanted:Qty: 1 on 01/05/2022 by Contreras Girard MD at [facility] Explanted:Qty: 1 on 01/26/2022 at [facility] N/A: Bile Duct [employer] 05/07/2022 [id number] / / [id number] [employer] Advanix 7fr 7cm Lead Joana Radiopaque [place]ipton Endo Marker Drainage [id number] - [id number] Implanted:Qty: 1 on 07/06/2022 by Kenneth Loya MD at [facility] Explanted:Qty: 1 on 09/08/2022 by Kenneth Loya MD at [facility] N/A: Pancreas [employer] 05/03/2023 [id number] / / [id number] [employer] 10fr 5cm Biliary Stent [id number] - [id number] Implanted:Qty: 1 on 07/06/2022 by Kenneth Loya MD at [facility] Explanted:Qty: 1 on 09/08/2022 by Kenneth Loya MD at [facility] N/A: Bile Duct [employer] 12/24/2022 [id number] / / [id number] [employer] 10fr 5cm Biliary Stent [id number] - [id number] Implanted:Qty: 1 on 07/06/2022 by Kenneth Loya MD at [facility] Explanted:Qty: 1 on 09/08/2022 by Kenneth Loya MD at [facility] N/A: Bile Duct [employer] 11/16/2023 [id number] / / [id number] [employer] 10fr 7cm Biliary Stent [id number] - [id number] Explanted:Qty: 1 on 04/10/2023 by John De Anda MD at [facility] [employer] [id number] 12/13/2024 [id number] / / [id number] Description:Unable to place despite multiple attempts Insurance MEDICARE [facility] Address: [address] [address] [place] [address] CIGNA CIGNA MEDICARE [facility] MEDICARE Address: [facility] [address] [place] [address] Advance Directives For more information, please contact: [phone] * Full Code (Latest Code Status on File) Date Activated Date Inactivated Comments 01/10/2024 8:34 AM 01/10/2024 4:10 PM * Full Code Date Activated Date Inactivated Comments 09/20/2023 8:13 PM 10/01/2023 6:14 PM * Full Code Date Activated Date Inactivated Comments 06/07/2023 4:45 AM 06/13/2023 8:44 PM * Full Code Date Activated Date Inactivated Comments 06/04/2023 11:25 AM 06/05/2023 8:22 PM * Full Code Date Activated Date Inactivated Comments 06/02/2023 7:36 AM 06/02/2023 3:26 PM Care Teams Auction Assistant Relationship Specialty Start Date End Date Don Walton PA [address] [address] PCP - General Physician Motor Checker 12/28/21
--- OUTSIDE RECORDS SUMMARY | 2024-06-23 07:06 | XMS_ITS | Encounter Summary ---
Author Organization [facility] Address [address] [place] [address] Phone Care Team Providers Care Print Binding Worker Name Role Phone Unknown, Notinfile Primary Care Provider Unavail able Lamberto Barker MD Primary Care Provider [phone] Don Walton Primary Care Provider Encounter Details Date Type Department Care Team (Late st Contact Info) Description 12/18/2019 Orders Only [facility] Scanning, Provider Social History Tobacco Use Types Packs/Day Years Used Date Smoking Tobacco: Every Day Alcohol Use Standard Drinks/Week Comments Yes 0 (1 standard drink = 0.6 oz pur e alcohol) Sex and Gender Information Value Date Recorded Sex Assigned at Not on file 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 Gender Identity Not on file Sexual Orientation Not on file documented as of this encounter Plan of Treatment Not on file documented as of this encounter Procedures Procedure Name Priority Date/Time Associated Diagnosis Comments SCAN - LABS 12/18/2019 documented in this encounter Results * SCAN - LABS (12/18/2019) us Provider Scanning Final Result documented in this encounter Visit Diagnoses Not on filedocumented in this encounter Additional Health Concerns Infection Onset Date Last Indicated Resolved Time COVID: Suspected 06/06/2023 06/06/2023 06/06/2023 9:39 PM 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
--- OUTSIDE RECORDS SUMMARY | 2024-06-23 07:06 | XMS_ITS | Encounter Summary ---
Author Organization [facility] Address [address] [place] [address]. [place], [place] [address] [place] [address] Care Team Providers Care Family Intervention Specialist Name Role Phone Lamberto Barker MD Primary Care Provider [phone] Encounter Details Date Type Department Care Team (Late st Contact Info) Description 01/05/2021 Hospital Follow-up Call [facility] [place] [address] Heather Aadmes, RN Social History Tobacco Use Types Packs/Day Years Used Date Smoking Tobacco: Every Day Cigarettes Smokeless Tobacco: Former Alcohol Use Standard Drinks/Week Comments Yes 0 (1 standard drink = 0.6 oz pur e alcohol) WHISKEY 1/2 PINT/DAY Humiliation, Afraid, Rape, and Kick questionnair e Answer Date Recorded Within the last year, have y ou been afraid of your partner or ex-partner? No 12/25/2020 Within the last year, have y ou been humiliated or emotionally abused in other ways by your partner or ex-partner? No Within the last year, have y ou been kicked, hit, slapped, or otherwise physically hurt by your partner or ex-partner? No 12/25/2020 Within the last year, have y ou been raped or forced to have any kind of sexual activity by your partner or ex-partner? No 12/25/2020 Social Connection and Isolat ion Panel [NHANES] Answer Date Recorded In a typical week, how many times do you talk on the phone with family, friends, or neighbors? More than three times a week 12/25/2020 How often do you get togethe r with friends or relatives? More than three times a week 12/25/2020 How often do you attend chur ch or voodoo services? Never 12/25/2020 Do you belong to any clubs o r organizations such as pentecostal groups, unions, fraternal or athletic groups, or school groups? No 12/25/2020 How often do you attend meet ings of the clubs or organizations you belong to? Never 12/25/2020 Are you , , di vorced, , never , or living with a partner? 12/25/2020 AUDIT-C Answer Date Recorded Q1: How often do you have a drink containing alcohol? 4 or more times a week 12/25/2020 Q2: How many drinks containi ng alcohol do you have on a typical day when you are drinking? 5 or 6 Q3: How often do you have si x or more drinks on one occasion? Daily or almost daily 12/25/2020 Overall Financial Resource Strain (CARDIA) Answe r Date Recorded How hard is it for you to pa y for the very basics like food, housing, medical care, and heating? Not very hard 12/25/2020 PHQ-2 Answer Date Recorded PHQ-2 Score - If the patient scores above 3, please move on to questions 3-9 2 12/25/2020 [facility] - Occupational Stress Questionnaire Answer Date Recorded Do you feel stress - tense, restless, nervous, or anxious, or unable to sleep at night because your mind is troubled all the time - these days? Only a little 12/25/2020 Exercise Vital Sign Answer Date Recorde d On average, how many days pe r week do you engage in moderate to strenuous exercise (like a brisk walk)? 5 days 12/25/2020 On average, how many minutes do you engage in exercise at this level? 60 min 12/25/2020 Hunger Vital Sign Answer Date Recorded Within the past 12 months, y ou worried that your food would run out before you got the money to buy more. Never true 12/26/19 21 Within the past 12 months, t he food you bought just didn't last and you didn't have money to get more. Never true 12/25/2020 PRAPARE - Transportation Answer Date Re corded In the past 12 months, has l ack of transportation kept you from medical appointments or from getting medications? No 11/28 In the past 12 months, has l ack of transportation kept you from meetings, work, or from getting things needed for daily living? No 12/25/2020 Housing Stability Vital Sign Answer Dangelo e Recorded In the last 12 months, was t here a time when you were not able to pay the mortgage or rent on time? No 12/25/2020 In the last 12 months, how many places have you lived? 2 12/25/2020 In the last 12 months, was t here a time when you did not have a steady place to sleep or slept in a intermediate (including now)? No 12/25/2020 Sex and Gender Information Value Date Recorded Sex Assigned at Male 12/25/2020 2:35 AM CDT Legal Sex Male 7:50 PM CDT Gender Identity Male 12/25/2020 2:35 AM CDT Sexual Orientation Straight 12/25/2020 2: 35 AM CDT COVID-19 Exposure Response Date Recorded In the last month, have you been in contact with someone who was confirmed or suspected to have Coronavirus / COVID-19? No / Unsure 12/28/2020 7:06 PM CDT documented as of this encounter Functional Status * RETIRED Are you deaf or do you have serious difficulty hearing Answer Date of Assessment Author Status No 12/29/2020 4:17 PM CDT Activ e * RETIRED Are you blind or do you have serious difficulty seeing, even when wearing glasses? Answer Date of Assessment Author Status No 12/29/2020 4:17 PM CDT Activ e * Do you have serious difficulty walking or climbing stairs? Answer Date of Assessment Author Status No 12/29/2020 4:17 PM CDT Chelsey Mcdermott RN Active * Do you have difficulty dressing or bathing? Answer Date of Assessment Author Status No 12/29/2020 4:17 PM CDT Chelsey Mcdermott RN Active * Because of a physical, mental, or emotional condition, do you have difficulty doing errands alone such as visiting a doctor's office or shopping? Answer Date of Assessment Author Status No 12/29/2020 4:17 PM CDT Chelsey Mcdermott, RN Active documented as of this encounter Mental Status * Because of a physical, mental, or emotional condition, do you have serious difficulty concentrating, remembering, or making decisions? Answer Entry Date Author Status No 12/29/2020 4:17 PM CDT Chelsey Mcdermott, RN Active documented in this encounter Plan of Treatment Upcoming Encounters Date Type Department Care Team (Late st Contact Info) Description 06/26/2024 1:00 PM CRNP Office Visit [facility], [address] [place], [place] [id number] Francy Lemon FNP [address] [facility] [address] [place], [place] [id number] Matt Moore MD [facility] [address] [place], [place] [id number] documented as of this encounter Goals Goal Patient Goal Type Associated Problems Recent Progress Patient-Stated? Author Family - family caregiver with be involved in care transitions and discharge planning General No Velma Tejada, RN Monitor - able to maintain pain control General No Nancy Matthews RN Safety ? Patient/family will have appropriate support at home upon discharge General No Liliane Erwin RN Patient will return to prior living situation and remain independent in ADLs upon discharge from hospital General No Elba Chavira RN Reduce alcohol intake Lifestyle No Lali Cody RN documented as of this encounter Visit Diagnoses Not on filedocumented in this encounter Additional Health Concerns Infection Onset Date Last Indicated Resolved Time COVID-19 Rule Out 10/20/2021 10/20/2021 10/20/2021 12:56 PM CDT Assessment Noted Time PHQ-9 Depression Total Score: 5 12/26/19 21 2:18 AM CDT documented as of this encounter Care Teams Family Intervention Specialist Relationship Specialty Start Date End Date Lamberto Barker MD [address] [place] [address] [facility] [address] [place] [address] PCP - General INTERNAL MEDICINE 05/08/19 documented as of this encounter
--- OUTSIDE RECORDS SUMMARY | 2024-06-23 07:06 | XMS_ITS | Encounter Summary ---
Author Organization [facility] Address [address] [place] [address] Phone Care Team Providers Care Blasting Entry Specialist Name Role Phone Unknown, Notinfile Primary Care Provider Unavail able Lamberto Barker MD Primary Care Provider [phone] Don Walton Primary Care Provider Encounter Details Date Type Department Care Team (Late st Contact Info) Description 10/22/2019 Orders Only [facility] Scanning, Provider Social History Tobacco Use Types Packs/Day Years Used Date Smoking Tobacco: Every Day Alcohol Use Standard Drinks/Week Comments Yes 0 (1 standard drink = 0.6 oz pur e alcohol) Sex and Gender Information Value Date Recorded Sex Assigned at Not on file Legal Sex Male 1:58 AM [employer] Gender Identity Not on file Sexual Orientation Not on file documented as of this encounter Plan of Treatment Not on file documented as of this encounter Procedures Procedure Name Priority Date/Time Associated Diagnosis Comments SCAN - LABS 10/22/2019 documented in this encounter Results * SCAN - LABS (10/22/2019) us Provider Scanning Final Result documented in this encounter Visit Diagnoses Not on filedocumented in this encounter Additional Health Concerns Infection Onset Date Last Indicated Resolved Time COVID: Suspected 06/06/2023 06/06/2023 06/06/2023 9:39 PM [employer]AR[employer] D[employer] documented as of this encounter Care Teams Blasting Entry Specialist Relationship Specialty Start Date End Date Unknown, Dulce PCP - General 10/01/19 04/26/20 Lamberto Barker MD [address] [facility] [address] [place] [address] PCP - General Internal Medicine 04/27/20 12/27/21 Don Walton PA [address] [facility] [address] [place] [address] PCP - General Physician Trimmer Climber 12/28/21 documented as of this encounter
--- OUTSIDE RECORDS SUMMARY | 2024-06-23 07:06 | XMS_ITS | Referral Summary ---
Author Organization [facility] Address [address] [place] [address] Care Team Providers Care Timber Cruiser Name Role Phone Don Walton Primary Care Provider Allergies Active Allergy Reactions Criticality Noted Date Comments Ciprofloxacin Hives Medium 06/02/2023 Patient stated he has previously tolerated PO. 06/02/23 had redness and hives after IV dose. Penicillins Rash Medium 05/08/2019 Hbnaqeaqczqr-Cjxhguclmt-Meh trs Angioedema High 09/17/[address] [...] daily 30 patch 01/12/20 22 Active multivit pboxkdyr-rqal-DG-c alcium (THERA-M) 9 mg iron-400 mcg tabletIndications: [...] 06/10/2023 Assessment & Plan (06/12/2023 2:18 PM CAR KNOCKER): Patient reports feeling constipated, gassy and bloated. [...] 06/08/2023 Assessment & Plan (06/09/2023 1:55 PM CAR KNOCKER): Resolved. Acute pancreatitis, unspecif ied complication status, unspecified pancreatitis type 06/04/2023 Assessment & Plan (06/05/2023 12:45 PM CAR KNOCKER): Longstanding bouts of pancreatitis originally from EtOH [...] 06/04/2023 Assessment & Plan (06/05/2023 12:48 PM CAR KNOCKER): Likely from pancreatitis. Also tender to palpation initially so may be a musculoskeletal component from dry heaving. Trops negative. EKG no ischemic changes. He reports hx of VT in the past, unclear circumstances. He had an exercise stress test in spring at an outside facility that he says was normal. Cont ASA. Gram-negative bacteremia 04/11/2023 Assessment & Plan (04/13/2023 7:02 PM CAR KNOCKER): - due to cholangitis - BCx + for E coli and K. Pneumoniae - repeat BCx drawn 04/11, ngtd - pansensitive organisms - d/c home today with flagyl/cipro Cholangitis 04/10/2023 Assessment & Plan (04/12/2023 6:21 PM CAR KNOCKER): - Improving - 04/10 ERCP - removal of two migrates stents with biliary obstruction and replaced with 2 new stents in biliary stricture - PRN analgesics and antiemetics Assessment & Plan (04/10/2023 2:40 AM CAR KNOCKER): -meets [place] criteria for acute cholangitis based [...] 01/04/2022 Assessment & Plan (06/13/2023 2:35 PM CAR KNOCKER): Recently admitted from 06/04-06/05/23 after ERCP on [...] (01/05/2022): Added automatically from request for surgery [id number] Assessment & Plan (04/11/2023 3:57 PM CAR KNOCKER): - improving -2/2 stent migration and resultant biliary obstruction Assessment & Plan (04/10/2023 2:27 AM CAR KNOCKER): -2/2 stent migration and resultant biliary obstruction -mgmt as above -repeat HFP in AM 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 Overview (11/30/2021): Added automatically from request for surgery [id number] Encounter for replacement of biliary stent 11/30 Overview (11/30/2021): Added automatically from request for surgery [id number] Alcohol-induced chronic pancreatitis (CMS/HCC) 0 07/26/2021 Pancreatic pseudocyst 07/26/2021 Severe sepsis 07/08/2021 Assessment & Plan (07/13/2021 9:43 AM CAR KNOCKER): Pt elevated temp on 2 overnight 38.1 [...] infection Assessment & Plan (07/12/2021 9:40 AM CAR KNOCKER): Pt elevated temp on 2 overnight 38.1 [...] infection Assessment & Plan (07/11/2021 10:55 AM CAR KNOCKER): Pt elevated temp on 2 overnight 38.1 [...] bed Assessment & Plan (07/10/2021 9:10 AM CAR KNOCKER): Pt elevated temp on 2 overnight 38.1 [...] daily Assessment & Plan (07/09/2021 2:23 PM CAR KNOCKER): Pt elevated temp on 2 overnight 38.1 [...] daily Assessment & Plan (07/08/2021 1:53 PM CAR KNOCKER): Pt elevated temp overnight 38.1 max, hypotensive [...] 07/07/2021 Assessment & Plan (07/13/2021 9:43 AM CAR KNOCKER): Dobbhoff placed 2/10, tube feeding to initiated Osmolite 1.5 at 55mL/hr over 24h via [place] tube continuous via pump. Flush with 150mL water q4h. Now at goal of 55cc/hr. Can cycle at home as instructed. Will continue TF until follow up with GI as outpatient Assessment & Plan (07/12/2021 9:39 AM CAR KNOCKER): Dobbhoff placed 2/10, tube feeding to initiated Osmolite 1.5 at 55mL/hr over 24h via [place] tube continuous via pump. Flush with 150mL water q4h. Now at goal of 55cc/hr. Can cycle at home as instructed. Will continue TF until follow up with GI as outpatient Assessment & Plan (07/11/2021 10:55 AM CAR KNOCKER): Dobbhoff placed 2/10, tube feeding to initiated [...] Phos Assessment & Plan (07/10/2021 9:08 AM CAR KNOCKER): Dilshaddusty placed 07/08, tube feeding to initiated [...] Phos Assessment & Plan (07/09/2021 2:25 PM CAR KNOCKER): Familiahoff placed 07/08, tube feeding to initiated [...] prn Assessment & Plan (07/08/2021 1:11 PM CAR KNOCKER): Cherelle placed 07/08, tube feeding to initiate TF recommendations: Goal: Osmolite 1.5 at 55mL/hr over 24h via [place] tube continuous via pump. Flush with 150mL water q4h. Initiate TF at 10mL/hr and increase by 10mL q4h until goal rate is reached Chronic pancreatitis, unspecified pancreatitis t ype 07/06/2021 Assessment & Plan (07/13/2021 9:42 AM CAR KNOCKER): Ongoing acute episode of (developing) chronic pancreatitis. [...] home Assessment & Plan (07/12/2021 9:38 AM CAR KNOCKER): Ongoing acute episode of (developing) chronic pancreatitis. [...] 07/13 Assessment & Plan (07/11/2021 10:53 AM CAR KNOCKER): Ongoing acute episode of (developing) chronic pancreatitis. [...] discharge Assessment & Plan (07/10/2021 9:07 AM CAR KNOCKER): Ongoing acute episode of developing chronic pancreatitis. [...] feedings Assessment & Plan (07/09/2021 2:30 PM CAR KNOCKER): Ongoing acute episode of chronic pancreatitis. Just [...] CTM Assessment & Plan (07/08/2021 1:49 PM CAR KNOCKER): Ongoing acute episode of chronic pancreatitis. Just [...] plan Assessment & Plan (07/07/2021 11:22 AM CAR KNOCKER): Ongoing acute episode of chronic pancreatitis. Just [...] plan Assessment & Plan (07/06/2021 5:30 PM CAR KNOCKER): Ongoing acute episode of chronic pancreatitis. Just [...] 07/06/2021 Assessment & Plan (07/13/2021 9:42 AM CAR KNOCKER): Likely ATN related to hypotensive episode. Cr peaked at Cr at 2.31, now back to baseline after aggressive IVF and now tolerating TF. Assessment & Plan (07/12/2021 9:36 AM CAR KNOCKER): Likely ATN related to hypotensive episode. Cr peaked at Cr at 2.31, now back to baseline after aggressive IVF and now tolerating TF. Assessment & Plan (07/11/2021 10:54 AM CAR KNOCKER): Likely ATN related to hypotensive episode. Cr peaked at Cr at 2.31, now back to baseline after aggressive IVF, continue to monitor bmp, continue fluids Assessment & Plan (07/10/2021 9:08 AM CAR KNOCKER): Likely ATN related to hypotensive episode. Cr peaked at Cr at 2.31, now back to baseline after aggressive IVF, continue to monitor bmp, continue fluids Assessment & Plan (07/09/2021 2:29 PM CAR KNOCKER): Cr at baseline after aggressive IVF, continue to monitor bmp, continue fluids Assessment & Plan (07/08/2021 1:10 PM CAR KNOCKER): Cr baseline 0.8 now up to 1.3 on arrival due to po intolerance Aggressive IVF will monitor urine output Today net fluid intake 191 Cr trended up to 2.31 continue aggressive fluids Daily bmp Continue IVF Assessment & Plan (07/07/2021 11:19 AM CAR KNOCKER): Cr baseline 0.8 now up to 1.3 on arrival due to po intolerance Aggressive IVF will monitor urine output Today net fluid intake 191 Cr 1.05 improving with fluids Daily bmp Continue IVF Assessment & Plan (07/06/2021 5:39 PM CAR KNOCKER): Cr baseline 0.8 now up to 1.3 on arrival due to po intolerance Aggressive IVF will monitor urine output Alcohol dependence 06/25/2021 Assessment & Plan (06/07/2023 5:01 AM CAR KNOCKER): Last drink on Grisel and he reports [...] program Assessment & Plan (07/13/2021 9:42 AM CAR KNOCKER): Has a long history of alcohol use [...] Group Assessment & Plan (07/12/2021 9:36 AM CAR KNOCKER): Has a long history of alcohol use [...] Group Assessment & Plan (07/11/2021 10:54 AM CAR KNOCKER): Has a long history of alcohol use [...] Group Assessment & Plan (07/10/2021 9:05 AM CAR KNOCKER): Has a long history of alcohol use [...] Group Assessment & Plan (07/09/2021 2:33 PM CAR KNOCKER): Has a long history of alcohol use [...] Group Assessment & Plan (07/08/2021 1:06 PM CAR KNOCKER): Has a long history of alcohol use with dependence. He states he has not had a drink since before his ERCP 06/22/2021 and has been on Vivitrol injections. His ethanol level on arrival to the ED is negative Plan to continue EtOH cessation and support with outpatient naltrexone therapy. Assessment & Plan (07/07/2021 11:13 AM CAR KNOCKER): Has a long history of alcohol use with dependence. He states he has not had a drink since before his ERCP 06/22/2021 and has been on Vivitrol injections. His ethanol level on arrival to the ED is negative Plan to continue EtOH cessation and support with outpatient naltrexone therapy. Assessment & Plan (07/06/2021 5:22 PM CAR KNOCKER): Has a long history of alcohol use with dependence. He states he has not had a drink since before his ERCP 06/22/2021 and has been on Vivitrol injections. His ethanol level on arrival to the ED is negative Plan to continue EtOH cessation and support with outpatient naltrexone therapy Assessment & Plan (06/28/2021 11:39 AM CAR KNOCKER): Long standing hx of alcohol dependence with [...] needed Assessment & Plan (06/27/2021 11:47 AM CAR KNOCKER): Long standing hx of alcohol dependence with [...] needed Assessment & Plan (06/26/2021 11:59 AM CAR KNOCKER): Long standing hx of alcohol dependence with hx of short term remission. Last drink was 1/20. States he usually drinks hard liquor shot. Denies hx of seizure or delirium. On vivitrol but did not receive this month's shot due to being on analgesic for post ERCP pain control. -thiamine -folate -MVI -ciwa protocol - Ativan Hypertension 06/25/2021 Assessment & Plan (06/07/2023 5:06 AM CAR KNOCKER): Markedly hypertensive on ED arrival in the setting of pain -Continue home Amlodipine 10 mg qday and losartan 25 mg qday Assessment & Plan (06/05/2023 12:47 PM CAR KNOCKER): Hypertensive initially from pain. Improved today. Cont home meds. Assessment & Plan (04/12/2023 6:21 PM CAR KNOCKER): -continue norvasc Assessment & Plan (04/10/2023 2:31 AM CAR KNOCKER): -resume norvasc in AM Assessment & Plan (01/11/2022 11:23 AM CDT): Continue norvasc Assessment & Plan (01/10/2022 11:40 AM CDT): Continue norvasc Assessment & Plan (07/13/2021 9:43 AM CAR KNOCKER): Continue to hold home lisinopril on account of recent hypotension/JOSE. With low normotensive BP will discontinue lisinopril. Follow up with PCP in 2-4 weeks to re evaluate restarting if needed Assessment & Plan (07/12/2021 9:38 AM CAR KNOCKER): Continue to hold home lisinopril on account of recent hypotension/JOSE. BP normal, may not require lisinopril on discharge. Assessment & Plan (07/11/2021 10:54 AM CAR KNOCKER): Continue to hold home lisinopril on account of recent hypotension/JOSE. BP normal, may not require lisinopril on discharge. Assessment & Plan (07/10/2021 9:06 AM CAR KNOCKER): Continue to hold home lisinopril on account of recent hypotension Assessment & Plan (07/09/2021 2:32 PM CAR KNOCKER): Continue to hold home lisinopril until more stable BP Assessment & Plan (07/08/2021 1:06 PM CAR KNOCKER): BP hypotensive overnight hold antihypertensives at this time. Assessment & Plan (07/07/2021 11:15 AM CAR KNOCKER): BP on remain normotensive Continue lisinopril and pain control Assessment & Plan (07/06/2021 5:30 PM CAR KNOCKER): BP on arrival normotensive Continue lisinopril and pain control Assessment & Plan (06/28/2021 11:39 AM CAR KNOCKER): Continue home lisinopril 40 mg -Monitor BP -BP stable Assessment & Plan (06/27/2021 11:48 AM CAR KNOCKER): Continue home lisinopril 40 mg -Monitor BP/Cr -BP stable Assessment & Plan (06/25/2021 4:55 PM CAR KNOCKER): Continue home lisinopril 40 mg -Monitor BP/Cr -Daily BMP Tobacco abuse 06/25/2021 Major depressive disorder 06/25/2021 Assessment & Plan (06/07/2023 5:07 AM CAR KNOCKER): Continue home duloxetine 30 mg BID and trazodone 50 mg qhs Assessment & Plan (06/04/2023 11:58 AM CAR KNOCKER): Cont home meds Assessment & Plan (01/11/2022 11:23 AM CDT): Continue duloxetine scheduled and trazodone prn Assessment & Plan (01/10/2022 11:40 AM CDT): Continue duloxetine scheduled and trazodone prn Assessment & Plan (07/13/2021 9:43 AM CAR KNOCKER): Most certainly contributing to his long standing alcohol use. Continue home meds duloxetine and trazodone Assessment & Plan (07/12/2021 9:38 AM CAR KNOCKER): Most certainly contributing to his long standing alcohol use. Continue home meds duloxetine and trazodone Assessment & Plan (07/11/2021 10:54 AM CAR KNOCKER): Most certainly contributing to his long standing alcohol use. Continue home meds duloxetine and trazodone Assessment & Plan (07/10/2021 9:06 AM CAR KNOCKER): Most certainly contributing to his long standing alcohol use. Continue home meds duloxetine and trazodone Assessment & Plan (07/09/2021 2:30 PM CAR KNOCKER): Most certainly contributing to his long standing alcohol use now with cessation Continue home meds duloxetine and trazodone Assessment & Plan (07/08/2021 1:09 PM CAR KNOCKER): Most certainly contributing to his long standing alcohol use now with cessation Continue home meds duloxetine and trazodone Assessment & Plan (07/07/2021 11:16 AM CAR KNOCKER): Most certainly contributing to his long standing alcohol use now with cessation Continue home meds duloxetine and trazodone Assessment & Plan (07/06/2021 5:32 PM CAR KNOCKER): Most certainly contributing to his long standing alcohol use now with cessation Continue home meds duloxetine and trazodone Assessment & Plan (06/28/2021 11:39 AM CAR KNOCKER): Continue home Trazodone 50 mg, Cymbalta 30 mg Resume Biofeedback at discharge Assessment & Plan (06/27/2021 11:48 AM CAR KNOCKER): Continue home Trazodone 50 mg, Cymbalta 30 mg Resume Biofeedback at discharge Assessment & Plan (06/25/2021 4:57 PM CAR KNOCKER): Continue home Trazodone 50 mg, Cymbalta 30 mg Resume Biofeedback at discharge Pancreatic duct obstruction 06/11/2021 Overview (06/11/2021): Added automatically from request for surgery [id number] Abdominal pain 06/11/2021 Overview (06/11/2021): Added automatically from request for surgery [id number] Necrotizing pancreatitis 10/21/2019 Therapeutic opioid induced constipation 10/21/19 20 Assessment & Plan (07/13/2021 9:44 AM CAR KNOCKER): Continue bowel regimen Assessment & Plan (07/12/2021 9:41 AM CAR KNOCKER): Bowel regimen ordered without BM. Will titrate bowel regimen Assessment & Plan (07/11/2021 10:58 AM CAR KNOCKER): Bowel regimen ordered Assessment & Plan (06/28/2021 11:39 AM CAR KNOCKER): Pt states no BM for the past week. Likely due to decrease intake and vomiting, possible contribution from opioids -daily bowel regimen, had BM Monday Assessment & Plan (06/27/2021 11:48 AM CAR KNOCKER): Pt states no BM for the past week. Likely due to decrease intake and vomiting, possible contribution from opioids -daily bowel regimen Assessment & Plan (06/26/2021 12:00 PM CAR KNOCKER): Pt states no BM for the past week. Likely due to decrease intake and vomiting, possibly contribution from opioids -daily bowel regimen -clear liquid diet Acute pancreatitis 05/08/2019 Assessment & Plan (06/28/2021 11:38 AM CAR KNOCKER): Hx of chronic pancreatis starting 3 years [...] ?? Assessment & Plan (06/27/2021 11:46 AM CAR KNOCKER): Hx of chronic pancreatis starting 3 years [...] ?? Assessment & Plan (06/26/2021 11:59 AM CAR KNOCKER): Hx of chronic pancreatis starting 3 years [...] 04/11/2023 Assessment & Plan (04/10/2023 2:38 AM CAR KNOCKER): -migrated stent likely etiology of presenting symptoms and lab, CT findings -will likely need ERCP for stent exchange on Monday Metabolic acidosis, increased anion gap (IAG) 06/25/1907/09/2021 Assessment & Plan (07/09/2021 2:31 PM CAR KNOCKER): Dobbhoff placed 07/08, to start tube feeding TF recommendations: Goal: Osmolite 1.5 at 55mL/hr over 24h via [place] tube continuous via pump. Flush with 150mL water q4h. Initiate TF at 10mL/hr and increase by 10mL q4h until goal rate is reached Assessment & Plan (07/08/2021 1:49 PM CAR KNOCKER): Due to starvation in the setting of [...] reached Assessment & Plan (07/07/2021 11:16 AM CAR KNOCKER): Due to starvation in the setting of intolerance to PO for the last 3-4 days. Will provide aggressive IVF Continue to discuss enteral feedings with the patient going forward, currently pt is refusing, GI will readdress with pt today with goal for placement today should pt agree. Change IVF to D5LR Assessment & Plan (07/06/2021 5:38 PM CAR KNOCKER): Due to starvation in the setting of intolerance to PO for the last 3-4 days. Will provide aggressive IVF Continue to discuss enteral feedings with the patient going forward Assessment & Plan (06/28/2021 11:39 AM CAR KNOCKER): Likely dehydration from pancreatitis, n/v and poor intake. Heme concentrated hgb 14.9 (baseline 8-9), wbc 14.4 no source of infection likely heme concentrated, anion gap 20, UA ketone +1. Resolved with IVF Assessment & Plan (06/27/2021 11:47 AM CAR KNOCKER): Likely dehydration from pancreatitis, n/v and poor intake. Heme concentrated hgb 14.9 (baseline 8-9), wbc 14.4 no source of infection likely heme concentrated, anion gap 20, UA ketone +1. Resolved with IVF Assessment & Plan (06/26/2021 12:00 PM CAR KNOCKER): Likely dehydration from pancreatitis, n/v and poor intake. Heme concentrated hgb 14.9 (baseline 8-9), wbc 14.4 no source of infection likely heme concentrated, anion gap 20, UA ketone +1 -IVF -Clear liquid diet -Daily bmp Immunizations Name Administration Dates Next Due Flucelvax Influenza Quad 03/03/2019 Influenza, Quadrivalent, Spl it, Preservative Free, Intramuscular 03/08/2021,02/05/2018 Td, adsorbed 07/01/1998 Social History Tobacco Use Types Packs/Day Years Used Date Smoking Tobacco: Every Day Cigarettes Smokeless Tobacco: Never Tobacco Cessation:Ready to Q uit: Not Asked; Counseling Given: Not Answered Alcohol Use Standard Drinks/Week Comments Yes 0 (1 standard drink = 0.6 oz pur e alcohol) [facility] Utilities Answer Date Recorded In the past 12 months has th e electric, gas, oil, or water company threatened to shut off services in your [...] often do you attend chur ch or sabianist services? 1 to 4 times per year 09/21/2023 Do you belong to any clubs o r organizations such as catholic groups, unions, fraternal or athletic groups, or [...] place to sleep or slept in a mcfp (including now)? No 09/21/2023 Personal Safety Answer Date Recorded Have you ever been in or are you currently in a harmful physical or emotional relationship or is someone making you feel afraid or unsafe? Denies 01/10/2024 Sex and Gender Information Value Date Recorded Sex Assigned at Not on file Legal Sex Male 1:58 AM CAR KNOCKER Gender Identity Not on file Sexual Orientation Not on file Occupation Industry Job Start Date Job End Date disability Not on file Not on file Not on file Last Filed Vital Signs Vital Sign Reading [...] 02/15/2024 3:03 PM CDT Plan of Treatment Not on file Medical Devices Implanted Type Area Promotion Manager Device Identifier Shelf Expiration Date Model / Serial / Lot [employer] 8.5 Fr Nasal Biliary Catheter [id number] - [id number] Implanted:Qty: 1 on 01/26/2022 by Kenneth Loay MD at [facility] Catheter [employer] 06/22/2024 [id number] / / [id number] [employer] 10fr 5cm Biliary Double Pigtail Stent [id number] - [id number] Implanted:Qty: 1 on 09/21/2023 by Kenneth Loya MD at [facility] Stent N/A: Bile Duct [employer] 08/14/2025 [id number] / / [id number] [employer] 10fr 5cm Biliary Stent [id number] - [id number] Implanted:Qty: 1 on 09/21/2023 by Kenneth Loya MD at [facility] Stent N/A: Bile Duct [employer] 07/03/2025 [id number] / / [id number] [employer] 10fr 5cm Biliary Double Pigtail Stent [id number] - [id number] Implanted:Qty: 1 on 09/21/2023 by Kenneth Loya MD at [facility] Stent N/A: Bile Duct [employer] 08/23/2025 [id number] / / [id number] [employer] 10fr 5cm Biliary Double Pigtail Stent [id number] - [id number] Implanted:Qty: 1 on 09/21/2023 by Kenneth Loya MD at [facility] Stent N/A: Bile Duct [employer] 08/23/2025 [id number] / / [id number] [employer] 10fr 5cm Biliary Double Pigtail Stent [id number] - [id number] Implanted:Qty: 1 on 09/21/2023 by Kenneth Loya MD at [facility] Stent N/A: Bile Duct [employer] 08/14/2025 [id number] / / [id number] [employer] 10fr 7cm Biliary Stent [id number] - [id number] Implanted:Qty: 1 on 04/10/2023 by John De Anda MD at [facility] [employer] [id number] 12/13/2024 [id number] / / [id number] [employer] 10fr 7cm Biliary Stent [id number] - [id number] Implanted:Qty: 1 on 04/10/2023 by John De Anda MD at [facility] [employer] [id number] 02/07/2025 [id number] / / [id number] Explanted Type Area Promotion Manager Device Identifier Shelf Expiration Date Model / Serial / Lot [employer] [id number] Cotton-Young 10fr 7cm Taper Tip Guidewire Proximal Distal Flap - [id number] Implanted:Qty: 1 on 08/04/2021 by Kenneth Loya MD at [facility] Explanted:Qty: 1 on 08/30/2021 at [facility] Stent N/A: Bile Duct [employer] 01/28/2024 [id number] / / [id number] Axios 10 X 10 Stent Delivery System [id number] - [id number] Implanted:Qty: 1 on 08/04/2021 by Kenneth Loya MD at [facility] Explanted:Qty: 1 on 08/30/2021 at [facility] Stent N/A: Bile Duct [employer] 10/13/2022 [id number] / / [id number] [employer] Geenen 7fr 7cm Positioning Sleeve Push Catheter Guidewire [id number] - [id number] Implanted:Qty: 1 on 08/30/2021 at [facility] Explanted:Qty: 1 on 11/01/2021 by Kenneth Loya MD at [facility] Stent N/A: Pancreas [employer] 11/06/2023 [id number] / / [id number] [employer] 10fr 5cm Biliary Stent [id number] - [id number] Implanted:Qty: 1 on 01/26/2022 by Kenneth Loya MD at [facility] Explanted:Qty: 1 on 04/06/2022 by Kenneth Loya MD at [facility] Stent [employer] 11/16/2023 [id number] / / [id number] [employer] Advanix Naviflex 7fr 9cm Radiopaque [place] Endo Marker Color Coded [id number] - [id number] Implanted:Qty: 1 on 01/26/2022 by Kenneth Loya MD at [facility] Explanted:Qty: 1 on 04/06/2022 at [facility] Stent [employer] 04/16/2023 [id number] / / [id number] [employer] Advanix 8.5fr 7cm Rapid Exchange Temporary [place] Stent [id number] - [id number] Implanted:Qty: 1 on 04/06/2022 by Kenneth Loya MD at [facility] Explanted:Qty: 1 on 07/06/2022 by Kenneth Loya MD at [facility] Stent N/A: Pancreas [employer] 10/26/2023 [id number] / / [id number] [employer] Advanix 8.5fr 7cm Rapid Exchange Temporary [facility] Stent [id number] - [id number] Implanted:Qty: 1 on 04/06/2022 by Kenneth Loya MD at [facility] Explanted:Qty: 1 on 07/06/2022 by Kenneth Loya MD at [facility] Stent N/A: Pancreas [employer] 10/26/2023 [id number] / / [id number] [employer] 10fr 5cm Biliary Stent [id number] - [id number] Implanted:Qty: 1 on 09/08/2022 by Kenneth Loya MD at [facility] Explanted:Qty: 1 on 11/03/2022 by Kenneth Loya MD at [facility] Stent N/A: Bile Duct [employer] 08/07/2024 [id number] / / [id number] [employer] 10fr 5cm Biliary Stent [id number] - [id number] Implanted:Qty: 1 on 09/08/2022 by Kenneth Loya MD at [facility] Explanted:Qty: 1 on 11/03/2022 by Kenneth Loya MD at [facility] Stent N/A: Bile Duct [employer] 05/04/2024 [id number] / / [id number] [employer] [place] Flexi-Stent 7fr 7cm Small Pigtail Flexible .035in Stent [id number] - [id number] Implanted:Qty: 1 on 09/08/2022 by Kenneth Loya MD at [facility] [facility]:Qty: 1 on 11/03/2022 by Kenneth Loya MD at [facility] Stent N/A: Bile Duct [employer] 05/28/2027 [id number] / / [id number] [employer] Geenen 8.5fr 9cm Drain Obstructed Positioning Sleeve Pushing [id number] - [id number] Implanted:Qty: 1 on 04/06/2022 by Kenneth Loya MD at [facility] Explanted:Qty: 1 on 01/05/2023 by Kenneth Loya MD at [facility] Stent N/A: Pancreas [employer] 05/03/2024 [id number] / / [id number] [employer] Cartwright Flexi-Stent 7fr 7cm Small Pigtail Flexible .035in Stent 6574 - [id number] Implanted:Qty: 1 on 11/03/2022 by Kenneth Loya MD at [facility] Explanted:Qty: 1 on 01/05/2023 by Kenneth Loya MD at [facility] Stent N/A: Pancreas [employer] 05/28/2027 [id number] / / [id number] [employer] Kemal 10fr 5cm Biliary Stent [id number] - [id number] Implanted:Qty: 1 on 11/03/2022 by Kenneth Loya MD at [facility] Explanted:Qty: 1 on 01/05/2023 at [facility] Stent N/A: Bile Duct [employer] 08/15/2024 [id number] / / [id number] [employer] Cotton-Young 10fr 5cm Taper Tip Soft Proximal Distal Flap Gentle [id number] - [id number] Implanted:Qty: 1 on 11/03/2022 by Kenneth Loya MD at [facility] Explanted:Qty: 1 on 01/05/2023 by Kenneth Loay MD at [facility] Stent N/A: Bile Duct [employer] 08/10/2025 [id number] / / [id number] [employer] Cartwright Flexi-Stent 4fr 7cm Small Pigtail Flexible .025in Stent 6544 - [id number] Implanted:Qty: 1 on 01/05/2023 by Kenneth Loya MD at [facility] Explanted:Qty: 1 on 06/02/2023 at [facility] Stent N/A: Pancreas [employer] 07/27/2027 [id number] / / [id number] Description:Not present on t his procedure [employer] Kemal 10fr 7cm Biliary Stent [id number] - [id number] Implanted:Qty: 1 on 01/05/2023 by Kenneth Loya MD at [facility] Explanted:Qty: 1 on 06/02/2023 by Jero Soto MD at [facility] Stent N/A: Bile Duct [employer] 12/13/2024 [id number] / / [id number] [employer] 10fr 7cm Biliary Stent [id number] - [id number] Implanted:Qty: 1 on 01/05/2023 by Kenneth Loya MD at [facility] Explanted:Qty: 1 on 06/02/2023 by DhaJero lee MD at [facility] Stent N/A: Bile Duct [employer] 12/13/2024 [id number] / / [id number] [employer] 10fr 5cm Biliary Double Pigtail Stent [id number] - [id number] Implanted:Qty: 1 on 06/02/2023 by Kenneth Loya MD at [facility] Explanted:Qty: 1 on 09/21/2023 by Kenneth Loya MD at [facility] Stent N/A: Bile Duct [employer] 04/30/2025 [id number] / / [id number] [employer] 10fr 5cm Biliary Double Pigtail Stent [id number] - [id number] Implanted:Qty: 1 on 06/02/2023 by Kenneth Loya MD at [facility] Explanted:Qty: 1 on 09/21/2023 by Kenneth Loya MD at [facility] Stent N/A: Bile Duct [employer] 04/30/2025 [id number] / / [id number] [employer] 10fr 5cm Biliary Stent [id number] - [id number] Implanted:Qty: 1 on 06/02/2023 by Kenneth Loya MD at [facility] Explanted:Qty: 1 on 09/21/2023 by Kenneth Loya MD at [facility] Stent N/A: Bile Duct [employer] 02/28/2025 [id number] / / [id number] [employer] 10fr 5cm Biliary Double Pigtail Stent [id number] - [id number] Implanted:Qty: 1 on 06/02/2023 by Kenneth Loya MD at [facility] Explanted:Qty: 1 on 09/21/2023 by Kenneth Loya MD at [facility] Stent N/A: Bile Duct [employer] 04/30/2025 [id number] / / [id number] [employer] [id number] Advanix 10fr 5cm Rapid Exchange Temporary [place] Stent - [id number] Implanted:Qty: 1 on 06/18/2021 by Kenneth Loya MD at [facility] Explanted:Qty: 1 on 08/30/2021 at [facility] [employer] 06/30/2022 [id number] / / [id number] Description:Removed prior [employer] Advanix Od10 Fr L7 Cm 1; Temporary Duodenal Bend Stent Biliary Pl [id number] - [id number] Implanted:Qty: 1 on 08/30/2021 at [facility] Explanted:Qty: 1 on 11/01/2021 by Kenneth Loya MD at [facility] N/A: Bile Duct [employer] 06/25/2022 [id number] / / [id number] [employer] Advanix Naviflex 10fr 9cm Lead Joana Radiopaque Flexible [id number] - [id number] Implanted:Qty: 1 on 11/01/2021 by Kenneth Loya MD at [facility] Explanted:Qty: 1 on 01/05/2022 by Contreras Girard MD at [facility] N/A: Pancreas [employer] 07/18/2022 [id number] / / [id number] 10fr 5cm Biliary Stent [id number] - [id number] Implanted:Qty: 1 on 11/01/2021 by Kenneth Loya MD at [facility] Explanted:Qty: 1 on 01/05/2022 at [facility] N/A: Bile Duct [employer] 08/12/2023 [id number] / / [id number] 10fr 7cm Biliary Stent [id number] - [id number] Implanted:Qty: 1 on 11/01/2021 by Kenneth Loya MD at [facility] Explanted:Qty: 1 on 01/05/2022 by Contreras Girard MD at [facility] N/A: Bile Duct [employer] 08/23/2023 [id number] / / [id number] [employer] Cotton-Young 10fr 5cm Taper Tip Soft Proximal Distal Flap Gentle [id number] - [id number] Implanted:Qty: 1 on 01/05/2022 by Contreras Girard MD at [facility] Explanted:Qty: 1 on 01/26/2022 at [facility] N/A: Bile Duct [employer] 05/07/2022 [id number] / / [id number] [employer] Advanix 7fr 7cm Lead Joana Radiopaque Olney Endo Marker Drainage [id number] - [id number] Implanted:Qty: 1 on 07/06/2022 by Kenneth Loya MD at [facility] Explanted:Qty: 1 on 09/08/2022 by Kenneth Loya MD at [facility] N/A: Pancreas [employer] 05/03/2023 [id number] / / [id number] [employer] 10fr 5cm Biliary Stent [id number] - [id number] Implanted:Qty: 1 on 07/06/2022 by Kenneth Loya MD at [facility] Explanted:Qty: 1 on 09/08/2022 by Kenneth Loya MD at [facility] N/A: Bile Duct [employer] 12/24/2022 [id number] / / [id number] [employer] 10fr 5cm Biliary Stent [id number] - [id number] Implanted:Qty: 1 on 07/06/2022 by Kenneth Loya MD at [facility] Explanted:Qty: 1 on 09/08/2022 by Kenneth Loya MD at [facility] N/A: Bile Duct [employer] 11/16/2023 [id number] / / [id number] [employer] Kemal 10fr 7cm Biliary Stent [id number] - [id number] Explanted:Qty: 1 on 04/10/2023 by John De Anda MD at [facility] [employer] [id number] 12/13/2024 [id number] / / [id number] Description:Unable to place despite multiple attempts Insurance [employer] [facility] Address: [address] [address] [place] [address] [facility] [employer] Advance Directives For more information, please contact: [phone] * Full Code (Latest Code Status on [...] 7:36 AM 06/02/2023 3:26 PM Care Teams Timber Cruiser Relationship Specialty Start Date End Date Don Walton PA [address] [address] PCP - General Physician Loan Teller 12/28/21
--- OUTSIDE RECORDS SUMMARY | 2024-06-23 07:06 | XMS_ITS | Encounter Summary ---
Author Organization [facility] Address [address] [place] [address]. [place], [place] [address] [place] [address] Care Team Providers Care Puppy Sitter Name Role Phone Lamberto Braker MD Primary Care Provider [phone] Encounter Details Date Type Department Care Team (Late st Contact Info) Description 10/21/2022 LegalSherpa Message Enc [facility] [address] [address] Mychart, [facility] Provider Stress test Social History Tobacco Use Types Packs/Day Years Used Date Smoking Tobacco: Every Day Cigarettes 0.5 30 Smokeless Tobacco: Former Chew Quit: 2012 Alcohol Use Standard Drinks/Week Comments Yes 0 [...] 12/25/2020 How often do you attend chur or anglican services? Never 12/25/2020 Do you belong to any clubs o r organizations such as latter-day groups, unions, fraternal or athletic groups, or [...] move on to questions 3-9 2 12/25/2020 [facility] - Occupational Stress Questionnaire Answer Date Recorded [...] place to sleep or slept in a chcf (including now)? No 12/25/2020 Sex and Gender Information Value Date Recorded Sex Assigned at Male 12/25/2020 2:35 AM CDT Legal Sex Male 7:50 PM CDT Gender Identity Male 12/25/2020 2:35 AM CDT Sexual Orientation Straight 12/25/2020 2: 35 AM CDT COVID-19 Exposure Response Date Recorded In the last 10 days, have yo u been in contact with someone who was confirmed or suspected to have Coronavirus/COVID-19? No / Unsure 10/20/2022 7:24 AM CDT documented as of this encounter Functional Status * RETIRED Are you deaf or do you have serious difficulty hearing Answer Date of Assessment Author Status No 06/20/2021 1:29 AM ZIGZAGGER Activ e * RETIRED Are you blind or do you have serious difficulty seeing, even when wearing glasses? Answer Date of Assessment Author Status No 06/20/2021 1:29 AM ZIGZAGGER Activ e * Do you have serious difficulty walking or climbing stairs? Answer Date of Assessment Author Status No 06/20/2021 1:29 AM Keri Whaley RN Active * Do you have difficulty dressing or bathing? Answer Date of Assessment Author Status No 06/20/2021 1:29 AM Keri Whaley RN Active * Because of a physical, mental, or emotional condition, do you have difficulty doing errands alone such as visiting a doctor's office or shopping? Answer Date of Assessment Author Status No 06/20/2021 1:29 AM ZIGZAGGER Keri Schwab RN Active documented as of this encounter Mental Status * Because of a physical, mental, or emotional condition, do you have serious difficulty concentrating, remembering, or making decisions? Answer Entry Date Author Status No 06/20/2021 1:29 AM Keri Whaley RN Active documented in this encounter Plan of Treatment Upcoming Encounters Date Type Department Care Team (Late st Contact Info) Description 06/26/2024 1:00 PM ZIGZAGGER Office Visit [facility], [address] [place], [place] [id number] Francy Lemon FNP [address] [facility] [address] [place], [place] [id number] Matt Moore MD Three [facility] [address] [place], [place] [id number] documented as of this encounter Goals Goal Patient Goal Type Associated Problems Recent Progress Patient-Stated? Author Family - family caregiver with be involved in care transitions and discharge planning General No Velma Tejada, DALE Monitor - able to maintain pain control General No Nancy Matthews RN Safety ? Patient/family will have appropriate support at home upon discharge General No Liliane Erwin RN Patient will return to prior living situation and remain independent in ADLs upon discharge from hospital General No Elba Chavira RN Reduce alcohol intake Lifestyle No Lali Cody RN Reduce alcohol intake Lifestyle No Nancy Matthews, RN documented as of this encounter Visit Diagnoses Not on filedocumented in this encounter Additional Health Concerns Assessment Noted Time PHQ-9 Depression Total Score: 5 12/25/ 21 2:18 AM CDT documented as of this encounter Care Teams Puppy Sitter Relationship Specialty Start Date End Date Lamberto Barker MD [address] [place], [place] [id number] PCP - General INTERNAL MEDICINE 05/08/19 documented as of this encounter
--- OUTSIDE RECORDS SUMMARY | 2024-06-23 07:06 | XMS_ITS | Encounter Summary ---
Author Organization [facility] Address [address] [place] [address]. [place], [place] [address] [place] [address] Care Team Providers Care Costing Analyst Name Role Phone Lamberto Barker MD Primary Care Provider Encounter Details Date Type Department Care Team (Late st Contact Info) Description 11/07/2022 [place] Message Enc [facility] [address] [address] [place], [facility] Provider Echocardiogram Social History Tobacco Use Types Packs/Day Years Used Date Smoking Tobacco: Every Day Cigarettes 0.5 30 Smokeless Tobacco: Former Chew Quit: 2011 Comments:Vaping CBD/THC Alcohol Use Standard Drinks/Week Comments Yes 0 (1 standard drink = 0.6 oz pure alcohol) 5 drinks a week cut down from 1/2 pint whiskey daily Humiliation, Afraid, Rape, and Kick questionnair e [...] often do you attend chur ch or protestant services? Never 12/25/2020 Do you belong to any clubs o r organizations such as denominational groups, unions, fraternal or athletic groups, or [...] move on to questions 3-9 2 12/25/2020 [facility] - [facility]ational Stress Questionnaire Answer Date Recorded [...] place to sleep or slept in a mcc (including now)? No 12/25/2020 Sex and Gender [...] suspected to have Coronavirus/COVID-19? No / Unsure 11/04/2022 12:59 PM CDT documented as of this encounter Functional Status * RETIRED Are you deaf or do you have serious difficulty hearing Answer Date of Assessment Author Status No 06/20/2021 1:29 AM FLOORMAN Activ e * RETIRED Are you blind or do you have serious difficulty seeing, even when wearing glasses? Answer Date of Assessment Author Status No 06/20/2021 1:29 AM FLOORMAN Activ e * Do you have serious [...] Assessment Author Status No 06/20/2021 1:29 AM FLOORMAN Keri Schwab RN Active documented as of [...] st Contact Info) Description 06/26/2024 1:00 PM FLOORMAN Office Visit [facility], [address] [place], [place] [phone] Francy Lemon FNP [address] [facility] [address] [place], [place] [phone] Matt Moore MD Three [facility] [address] [place], [place] [id number] documented as of this encounter Goals Goal [...] RN Reduce alcohol intake Lifestyle No Nancy Matthews RN documented as of this encounter Visit Diagnoses Not on filedocumented in this encounter Additional Health Concerns Assessment Noted Time PHQ-9 Depression Total Score: 5 12/26/19 21 2:18 AM CDT documented as of this encounter Care Teams Costing Analyst Relationship Specialty Start Date End Date Lamberto Barker MD [address] [place] [address] PCP - General INTERNAL MEDICINE 05/08/19 documented as of this encounter
--- OUTSIDE RECORDS SUMMARY | 2024-06-23 07:06 | XMS_ITS | Continuity of Care Document ---
Author Organization [facility] Address [address] [place] [address] [address] [place] [address] Phone Care Team Providers Care Ui Programmer Name Role Phone Glenn Maciel Unavailable Unavailable Procedures Procedure Date Therapeutic Activities Manual Therapy Neuromuscular Re-Ed Therapeutic Exercise Therapeutic Activities Neuromuscular Re-Ed Manual Therapy Manual Therapy Therapeutic Activities Neuromuscular Re-Ed Therapeutic Activities Neuromuscular Re-Ed Therapeutic Exercise Manual Therapy Therapeutic Activities Neuromuscular Re-Ed Therapeutic Exercise Manual Therapy Therapeutic Activities Neuromuscular Re-Ed Therapeutic Activities Neuromuscular Re-Ed Therapeutic Exercise Manual Therapy Neuromuscular Re-Ed Therapeutic Exercise Therapeutic Activities Manual Therapy Therapeutic Activities Neuromuscular Re-Ed Therapeutic Exercise Manual Therapy Therapeutic Activities Neuromuscular Re-Ed Therapeutic Exercise Therapeutic Exercise Neuromuscular Re-Ed Therapeutic Activities Therapeutic Exercise Therapeutic Activities Neuromuscular Re-Ed Therapeutic Activities Therapeutic Exercise Neuromuscular Re-Ed Therapeutic Activities Therapeutic Exercise Neuromuscular Re-Ed Therapeutic Activities Neuromuscular Re-Ed Therapeutic Exercise Therapeutic Activities Neuromuscular Re-Ed Therapeutic Exercise Therapeutic Activities Neuromuscular Re-Ed Therapeutic Exercise Therapeutic Activities Neuromuscular Re-Ed Therapeutic Exercise Manual Therapy Therapeutic Activities Neuromuscular Re-Ed Therapeutic Exercise Manual Therapy Therapeutic Activities Therapeutic Exercise Manual Therapy Neuromuscular Re-Ed Progress Note Therapeutic Activities Neuromuscular Re-Ed Therapeutic Exercise Manual Therapy Neuromuscular Re-Ed Therapeutic Exercise Therapeutic Activities Neuromuscular Re-Ed Therapeutic Activities Therapeutic Exercise Therapeutic Activities Neuromuscular Re-Ed Therapeutic Exercise Therapeutic Activities Neuromuscular Re-Ed Therapeutic Exercise Neuromuscular Re-Ed Therapeutic Exercise Therapeutic Activities Therapeutic Exercise Neuromuscular Re-Ed Therapeutic Activities Therapeutic Activities Neuromuscular Re-Ed Therapeutic Exercise Therapeutic Activities Therapeutic Exercise Neuromuscular Re-Ed Therapeutic Activities Therapeutic Exercise Neuromuscular Re-Ed Neuromuscular Re-Ed Therapeutic Activities Therapeutic Exercise PT Re-evaluation Neuromuscular Re-Ed Therapeutic Exercise Therapeutic Activities Therapeutic Activities Therapeutic Exercise Neuromuscular Re-Ed Therapeutic Activities Neuromuscular Re-Ed Therapeutic Exercise Therapeutic Activities Neuromuscular Re-Ed Therapeutic Exercise Neuromuscular Re-Ed Therapeutic Activities Therapeutic Exercise Therapeutic Activities Neuromuscular Re-Ed Therapeutic Exercise Therapeutic Activities Therapeutic Exercise Neuromuscular Re-Ed Therapeutic Exercise Therapeutic Activities Neuromuscular Re-Ed Neuromuscular Re-Ed Therapeutic Activities Therapeutic Exercise Therapeutic Exercise Neuromuscular Re-Ed Therapeutic Activities Neuromuscular Re-Ed Therapeutic Activities Therapeutic Exercise Therapeutic Activities Neuromuscular Re-Ed Therapeutic Exercise Therapeutic Activities Neuromuscular Re-Ed Therapeutic Exercise Neuromuscular Re-Ed Therapeutic Activities Therapeutic Exercise Therapeutic Activities Therapeutic Exercise Neuromuscular Re-Ed Therapeutic Activities Therapeutic Exercise Neuromuscular Re-Ed Therapeutic Activities Therapeutic Exercise Neuromuscular Re-Ed Therapeutic Activities Therapeutic Exercise Neuromuscular Re-Ed PT Evaluation High Complexity 0 Therapeutic Activities Neuromuscular Re-Ed Therapeutic Exercise Advance Directives Directive Yes / No Effective Date File Name No Information Encounters Encounter Description Practice Location Reason(s) For Visit Diagnoses Date Provider Providers Copied on Encounter [facility], [address] [address], [place], [place], [address], [place] tel:[phone] [place] No Information Oct-0 9-202 0 Muehl Glenn. [address] [facility], [address], [place], [facility], [place]. tel:[phone] [address], [place], [place], [address], [place] tel:[phone] [place] No Information Oct-0 8-202 0 Muehl Glenn. [address] [facility], [address], [place], [facility], [place]. tel:[phone] Referring Provider: Don Walton [facility] [address] [facility] 21, [place], [place], [facility]. tel:[phone] [place] [address] [address], [place], [place], [address], tel:[phone] [place] No Information Oct-0 6-202 0 Lehnen Velma. . Referring Provider: Don Walton [address] [place] [address] 162 [facility] 21, [place], [facility]. tel:[phone], [place], [place], [address], tel:[phone] [place] No Information Oct-0 2-202 0 Lehnen Velma. . Referring Provider: Don Walton [address] [place] [address] 162 [facility] 21, [place], [facility]. tel:[phone], [place], [place], [address], [place] tel:[phone] [place] No Information Oct-0 1-202 0 Muehl Glenn. [address] [facility], [address], [place], [address], [place]. tel:[phone] Referring Provider: Don Walton [address] [place] [address] [address], [place], [facility]. tel:[phone] [address], [place], [address], [place] tel:[phone] [place] No Information Sep-2 9-202 0 Muehl Glenn. [address] [facility], [address], [place], [facility], [place]. tel:[phone] Referring Provider: Don Walton [address] [place] [address], [address]. tel:[phone], [place], [place], [address], [place] tel:[phone] [place] No Information Sep-2 - 0 Muehl Glenn. [address] [facility], [address], [place], [facility], [place]. tel:[phone] Referring Provider: Don Walton [address] [place] [address] [address], [facility]. tel:[phone] [address], [place], [place], [address], [place] tel:[phone] [place] No Information Sep-2 2- 0 Muehl Glenn. [address] [place] [address], [address], [place], [facility], [place]. tel:[phone] Referring Provider: Yeni Siegel [facility] [address], [place], [address]. tel:[phone] [address], [place], [place], [address], [place] tel:[phone] [place] No Information Sep-1 8- 0 Muehl Glenn. [address] [place] [address], [address], [place], [facility], [place]. tel:[phone] Referring Provider: Don Walton [facility] State [facility] 162 [facility] [address], [place], [address]. tel:[phone], [place], [place], [address], [place] tel:[phone] [place] No Information Sep-1 5- 0 Muehl Glenn. [address] [facility], [address], [place], [facility], [place]. tel:[phone] Referring Provider: Don Walton, [address] [place] [address] 162 [facility] 21, [place], [address]. tel:[phone] [place], [place] [address]e [address], [place], [place], [address], tel:[phone] [place] No Information Sep-1 1-202 0 Darío Cervantes. . Referring Provider: Don Walton, [address] [place] [address] 162 [facility] 21, [place], [address]. tel:[phone] [address], [place], [place], [address], [place] tel:[phone] [place] No Information Sep-1 0-202 0 Muehl Glenn. [address] [place] [address], [address], [place], [facility], . tel:[phone] Referring Provider: Don Walton [address] [place] [address], [place], [address]. tel:[phone] [place] [address] [place], [place] [address], [place], [place], [address], [place] tel:[phone] [place] No Information Sep-0 8-202 0 Muehl Glenn. [address] [place] [address], [address], [place], [facility], . tel:[phone] Referring Provider: Don Walton [address] [place] [address] 162 [facility] 21, [place], [address]. tel:[phone] [address], [place], [place], [address], [place] tel:[phone] [place] No Information Sep-0 4-202 0 Muehl Glenn. [address] [facility], [address], [place], [facility], . tel:[phone] Referring Provider: Don Walton [address] [place] [address] 162 [facility] 21, [place], [address]. tel:[phone] [facility] [address] [place], [place] [address], [place], [place], [address], tel:[phone] [place] No Information Sep-0 3-202 0 Muehl Glenn. [address] [facility], [address], [place] [address], . tel:[phone] Referring Provider: Don Walton [facility] [address], [place], [facility]. tel:[phone] [address], [place], [place], [address], tel:[phone] [place] No Information Sep-0 1-202 0 Muehl Glenn. [address] [place] [address], [address], [address] [address], . tel:[phone] Referring Provider: Don Walton [address] [place] [address] [address], [place], [facility]. tel:[phone] [place] [address] [address], [place], [place], [address], tel:[phone] [place] No Information Aug-2 8-202 0 Threlkeld Shanell. . Referring Provider: Don Walton [address] [place] [address] [address], [place], [facility]. tel:[phone] [address], [place], [place], [address], tel:[phone] [place] No Information Aug-2 7-202 0 Muehl Glenn. [address] [place] [address], [address], [place], [facility], . tel:[phone] Referring Provider: Don Walton [facility] [address], [place], [facility]. tel:[phone] [place], [place] [address], [place], [place], [address], tel:[phone] [place] No Information Aug-2 5-202 0 Muehl Glenn. [address] [place] [address], [address], [place], [facility], . tel:[phone] Referring Provider: Don Walton [address], [place], [address]. tel:[phone] [address], [place], [place], [address], tel:[phone] [place] No Information Dec-2 1- 0 Muehl Glenn. [address] [facility], [address], [place], [facility], [place]. tel:[phone] Referring Provider: Don Walton [facility] [address], [place], [address]. tel:[phone] [address], [place], [address], [place] tel:[phone] [place] No Information Dec-2 0-202 0 Muehl Glenn. [address] [facility], [address], [place], [facility], [place]. tel:[phone] Referring Provider: Don Walton [facility] [address], [place], [address]. tel:[phone] [place] [address], [address], tel:[phone] [place] No Information 8 0 Muehl Glenn. [address] [facility], [address], [place], [facility], [place]. tel:[phone] Referring Provider: Don Walton [facility] [address], [place], [address]. tel:[phone] [address], [place], [address], [place] tel:[phone] [place] No Information 3-202 0 Muehl Glenn. [address] [facility], [address], [place], [facility], [place]. tel:[phone] Referring Provider: Don Walton [facility] [address], [place], [address]. tel:[phone] [facility] [address], [place], [place], [address], [place] tel:[phone] [place] No Information 0 Donl Glenn. [address] [facility], [address], [place], [facility], [place]. tel:[phone] Referring Provider: Don Walton [facility] [address], [place], [facility]. tel:[phone] [place] [address] [address], [place], [place], [address], [place] tel:[phone] [place] No Information 0 7- 0 Niederhoffer Helen. . Referring Provider: Delvin Siegel[address] [place] [address] 162 [facility] 21, [place], [facility]. tel:[phone] [place], [place] [address], [place], [place], [address], tel:[phone] [place] No Information 0 6202 0 Niederhoffer Helen. . Referring Provider: Don Walton [address] [place] [address] 162 [facility] 21, [place], [facility]. tel:[phone] [place] [address] [place], [place] [address], [place], [place], [address], tel:[phone] [place] No Information 0 0 Jessa Carreon. . Referring Provider: Don Walton [address] [place] [address] [address], [place], [facility]. tel:[phone], [place], [place], [address], tel:[phone] [place] No Information 0 Donl Glenn. [address] [facility], [address], [place], [facility], [place]. tel:[phone] Referring Provider: Delvin Siegel [address], [place], [address]. tel:[phone] [facility] [address], [place], [place], [address], [place] tel:[phone] [place] No Information Nov-3 0-202 0 Muehl Glenn. [address] [place] [address], [address], [place], [facility], . tel:[phone] Referring Provider: Don Walton, [address] [place] [address] [address] [facility], [place], [address]. tel:[phone] [facility] [address] [facility], [place], [address], [place] tel:[phone] [place] No Information 8-202 0 Muehl Glenn. [address] [place] [address], [address], [place], [facility], [place]. tel:[phone] Referring Provider: Don Walton [address] [place] [address] [address], [place], [facility]. tel:[phone] [facility] [address] [place], [place] [address], [place], [place], [address], [place] tel:[phone] [place] No Information 4-202 0 Muehl Glenn. [address] [place] [address], [address], [place], [facility], [place]. tel:[phone] Referring Provider: Don Walton [facility] [address], [place], [address]. tel:[phone] [facility] [address] [facility], [place], [address], [place] tel:[phone] [place] No Information 3-202 0 Muehl Glenn. [address] [place] [address], [address], [place], [facility], [place]. tel:[phone] Referring Provider: Don Walton [facility] [address], [place], [address]. tel:[phone] [address], [place], [place], [address], [place] tel:[phone] [place] No Information 1-202 0 Muehl Glenn. [address] [place] [address], [address], [place], [facility], . tel:[phone] Referring Provider: Don Walton [facility] [address], [place], [address]. tel:[phone], [place], [place], [address], tel:[phone] [place] No Information 6-202 0 Muehl Glenn. [address] [place] [address], [address], [place], [facility], [place]. tel:[phone] Referring Provider: Don Walton [facility] State [facility] [address] [place] [address], [address]. tel:[phone] [address], [place], [place], [address], tel:[phone] [place] No Information 4-202 0 Muehl Glenn. [address] [place] [address], [address], [place], [facility], [place]. tel:[phone] Referring Provider: Don Walton [facility] State [facility] [address], [place], [address]. tel:[phone], [place], [place], [address], tel:[phone] [place] No Information 0-202 0 Muehl Glenn. [address] [place] [address], [address], [place], [facility], [place]. tel:[phone] Referring Provider: Don Walton [facility] [address], [address]. tel:[phone] [address], [place], [place], [address], tel:[phone] [place] No Information 0 9-202 0 Muehl Glenn. [address] [place] [address], [address], [place], [facility], . tel:[phone] Referring Provider: Don Walton [facility] [address] [facility], [place], [facility]. tel:[phone] [address], [place], [place], [address], tel:[phone] [place] No Information [place]-0 7-202 0 Muehl Glenn. [address] [place] [address], [address], [place], [facility], [place]. tel:[phone] Referring Provider: Don Walton [facility] [address], [place], [facility]. tel:[phone] [address], [place], [place], [address], tel:[phone] [place] No Information Nov-0 2-202 0 Muehl Glenn. [address] [place] [address], [address], [place], [facility], [place]. tel:[phone] Referring Provider: Delvin Siegel [facility] [address], [place], [address]. tel:[phone] [place] [address]e [address], [place], [place], [address], tel:[phone] [place] No Information Robert-3 0-202 0 Muehl Glenn. [address] [place] [address], [address], [place], [facility], [place]. tel:[phone] Referring Provider: Don Walton [facility] [address], [place], [address]. tel:[phone], [place], [address], tel:[phone] [place] No Information Robert-2 9-202 0 Muehl Glenn. [address] [place] [address], [address], [place], [facility], . tel:[phone] Referring Provider: Don Walton [facility] [address], [place], [address]. tel:[phone] [place] [address] 300, [place], [place], [address], tel:[phone] [place] No Information Robert-2 6-202 0 Muehl Glenn. [address] [facility], [address], [place], [facility], [place]. tel:[phone] Referring Provider: Don Walton, [facility] [address], [place], [address]. tel:[phone] [place] [address] 300, [place], [place], [address], tel:[phone] [place] No Information Robert-2 5-202 0 Lehnen Velma. . Referring Provider: Don Walton [address] [place] [address] 162 [facility] 21, [place], [address]. tel:[phone] [place] [address] 300, [place], [address], [place] tel:[phone] [place] No Information Robert-2 3-202 0 Muehl Glenn. [address] [facility], [address], [place], [facility], [place]. tel:[phone] Referring Provider: Don Walton [address] [place] [address] [address], [place], [address]. tel:[phone], [place], [address], [place] tel:[phone] [place] No Information Robert-1 9-202 0 Muehl Glenn. [address] [facility], [address], [place], [facility], [place]. tel:[phone] Referring Provider: Don Walton, [facility] [address], [place], [address]. tel:[phone], [place], [place], [address], [place] tel:[phone] [place] No Information Oct- 8-202 0 Muehl Glenn. [address] [place] [address], [address], [place], [facility], [place]. tel:[phone] Referring Provider: Don Walton [address] [place] [address], [address]. tel:[phone] [address], [place], [place], [address], tel:[phone] [place] No Information Oct- 6-202 0 Muehl Glenn. [address] [place] [address], [address], [place], [facility], [place]. tel:[phone] Referring Provider: Don Walton [address] [place] [address], [address]. tel:[phone], [address], tel:[phone] [place] No Information Oct- 2-202 0 Muehl Glenn. [address] [place] [address], [address], [place], [facility], [place]. tel:[phone] Referring Provider: Delvin Siegel[address] [place] [address] 162 [facility] [address], [place], [address]. tel:[phone] [address], [place], [address], [place] tel:[phone] [place] No Information Oct- 1-202 0 Muehl Glenn. [address] [place] [address], [address], [place], [address], [place]. tel:[phone] Referring Provider: Delvin Siegel [address] [facility] [address], [place], [address]. tel:[phone] [address], [place], [place], [address], tel:[phone] [place] No Information Robert-0 9-202 0 Muehl Glenn. [address] [place] [address], [address], [place], [address], . tel:[phone] Referring Provider: Don Walton [address], [place], [address]. tel:[phone] [facility], [address] [facility] 300, [place], [place], [address], [place] tel:[phone] [place] No Information Robert-0 5-202 0 Teresa Elizabeth. [address] [facility], [address], [place], [address], . tel:[phone] Referring Provider: Don Walton [address], [place], [address]. tel:[phone] Family History Family Member Type Diagnosis Age At Onset No Information Payers Payer name Insurance type Covered constitution party ID Authorboris valdivia(s) [facility] [id number] Social History Type Description Quantity Date Captured Comments Sex Male Smoking Status No Information Chief Complaint And Reason For Visit No Information Reason For Referral Reason For Referral No Information History Of Present Illness Encounter Date Complaint History Of Prese nt Illness No Information Functional Status Date Functional Assessmen t No Information Instructions Date Instruction Additional Infor mation No Information Assessments Type Assessment Date No Information Patient Care Teams Name Effective Dates (start - stop) Status Members No Information
--- OUTSIDE RECORDS SUMMARY | 2024-06-23 07:06 | XMS_ITS | Encounter Summary ---
Author Organization [facility] Address [address] [place] [address] Phone Care Team Providers Care Tank Riveter Name Role Phone Unknown, Notinfile Primary Care Provider Unavail able Lamberto Barker MD Primary Care Provider [phone] Don Walton Primary Care Provider Encounter Details Date Type Department Care Team (Late st Contact Info) Description 10/12/2019 Orders Only [facility] Scanning, Provider Social History Tobacco Use Types Packs/Day Years Used Date Smoking Tobacco: Every Day Alcohol Use Standard Drinks/Week Comments Yes 0 (1 standard drink = 0.6 oz pur e alcohol) Sex and Gender Information Value Date Recorded Sex Assigned at Not on file 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 Gender Identity Not on file Sexual Orientation Not on file documented as of this encounter Plan of Treatment Not on file documented as of this encounter Procedures Procedure Name Priority Date/Time Associated Diagnosis Comments SCAN - RADIOLOGY/IMAGING 10/12/2019 documented in this encounter Results * SCAN - RADIOLOGY/IMAGING (10/12/2019) Anatomical Region Laterality Modality Other us Provider Scanning Final Result documented in this encounter Visit Diagnoses Not on filedocumented in this encounter Additional Health Concerns Infection Onset Date Last Indicated Resolved Time COVID: Suspected 06/06/2023 06/06/2023 06/06/2023 9:39 PM 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
--- OUTSIDE RECORDS SUMMARY | 2024-06-23 07:06 | XMS_ITS | Clinical Summary ---
Author Organization [facility] Address [address] [place] [address]. [place], [place] [id number] [place] [address] Care Team Providers Care Nascar Pit Crew Person Name Role Phone Lamberto Barker MD Primary Care Provider Allergies Active Allergy Reactions Criticality Noted Date Comments Amoxicillin Unknown High 04/18/2020 Ciprofloxacin Hives Medium 06/02/2023 Patient stated he had reaction to oral cipro. 06/02/23 had redness and hives after IV dose. Penicillins Rash,Angioedema High 05/08/2019 Piperacillin Sod-Tazobactam So Angioedema High 09/17/2019 Medications DULoxetine 30 MG capsule Take 1 capsule (30 mg total) by mouth 2 (two) times daily. 04/09/20 20 Active folic acid 1 MG tablet Take 1 tablet (1 mg total) by mouth daily. Active multi vitamin/minerals tablet Take 1 tablet by mouth daily. 30 tablet 12/28/19 21 Active tiZANidine 4 MG tablet Take 1 tablet (4 mg total) by mouth every 8 (eight) hours as needed (muscle splasms). 02/17/20 21 Active pantoprazole EC 40 MG tablet Take 1 tablet (40 mg total) by mouth daily. Active traZODone 50 MG tablet Take 1-2 tablets (50-100 mg total) by mouth nightly as needed for Sleep. Active acetaminophen 500 MG tablet Take 1 tablet (500 mg total) by mouth every 6 (six) hours as needed for Pain. Active ondansetron 4 MG disintegrating tabletIndications: Acute pancreatitis (HHS/HCC) Take 1 tablet (4 mg total) by mouth every 8 (eight) hours as needed for Nausea. 20 tablet 06/23/19 Active amLODIPine (NORVASC) 10 MG tablet Take 1 tablet (10 mg total) by mouth daily. 01/13/20 22 Active gabapentin (NEURONTIN) 300 MG capsule Take 1 capsule (300 mg total) by mouth 3 (three) times daily. 03/21/20 22 Active melatonin 10 MG tablet Take 1 tablet (10 mg total) by mouth nightly as needed for Sleep. Active polyethylene glycol (GLYCOLAX) 17 GM/SCOOP powder Take 17 g by mouth as needed. 02/05/20 22 Active meloxicam (MOBIC) 7.5 MG tablet Take 1 tablet (7.5 mg total) by mouth 2 (two) times daily as needed for Pain. 08/28/19 23 Active fluticasone propionate (FLONASE) 50 MCG/ACT nasal spray 2 sprays by Each Nostril route as needed. SHAKE LIQUID 05/21/20 Active tadalafil (CIALIS) 20 MG tablet Take 1 tablet (20 mg total) by mouth daily as needed for Erectile Dysfunction . 10/21/19 23 Active fenofibrate 160 MG tablet Take 1 tablet (160 mg total) by mouth daily. 10/18/19 23 Active CREON 23330-49039 units CAPSULE ENTERIC COATED PARTICLES Take 1 capsule (12,000 units of lipase total) by mouth 3 (three) times daily with meals. 07/13/19 24 Active sildenafil (VIAGRA) 100 MG tablet TAKE 1 TABLET BY MOUTH ONCE DAILY 30 MINUTES-4 HOURS PRIOR TO SEXUAL ACTIVITY 10/25/19 24 Active losartan (COZAAR) 25 MG tablet TAKE 1 TABLET(25 MG) BY MOUTH DAILY 90 tablet 06/21/19 25 Active losartan (COZAAR) 25 MG tablet TAKE 1 TABLET(25 MG) BY MOUTH DAILY 90 tablet 1 01/05/20 24 025 Discontinued Active Problems Problem Noted Date Diagnosed Date Chest pain 06/04/2023 Overview (06/16/2023): Last Assessment & Plan: Likely from pancreatitis. Also tender to palpation initially so may be a musculoskeletal component from dry heaving. Trops negative. EKG no ischemic changes. He reports hx of MT in the past, unclear circumstances. He had an exercise stress test in spring at an outside facility that he says was normal. Cont ASA. Pancreatic pseudocyst ([facility]) 07/26/2021 Severe sepsis ([facility]) 07/08/2021 Overview (11/04/2022): Last Assessment & Plan: Pt elevated temp on 07/07 overnight 38.1 max, hypotensive with normal lactate [...] GI and aspiration sources of possible infection Alcohol dependence with unsp ecified alcohol-induced disorder ([facility]) 06/25/2021 Overview (11/04/2022): Last Assessment & Plan: Long history of dependence. States decreased intake [...] states he has AA resources for discharge. Acute pancreatitis ([facility]) 06/20/2021 Pancreatitis ([facility]) 05/08/2019 Hypertension Tobacco abuse Resolved Problems Problem Noted Date Diagnosed Date Resolved Date Acute pancreatitis ([facility]) 12/28/2020 06/01/2021 Hypokalemia 06/20/2020 12/25/2020 Acute pancreatitis ([facility]) 06/19/2020 12/25/2020 Necrotizing pancreatitis ([facility]) 10/21/2019 12/25/2020 Other constipation 10/21/2019 Immunizations Name Administration Dates Next Due Flucelvax 6 Months+ (Prefilled Syringe) 03/03/20 Fluzone 6 Months+ Quad (0.5 mL Prefilled Syringe ) 03/08/2021 Influenza Adult (Generic) 02/05/2018 PFIZER COVID-19 (ORIGINAL FO RMULATION, PURPLE CAP) mRNA, LNP-S, PF, 30 MCG/0.3 ML DOSE 08/18/2020,07/28/2020 Td (TDVAX) 07/01/1998 Family History Medical History Relation Comments Cancer Father pancreatic Heart Attack Father Open Heart Father Heart Attack Maternal Grandfather Heart Attack Mother Stent Cardiac Mother Relation Status Comments Brother Alive Father (Age 72) Maternal Grandfather (Age 59) Maternal Grandmother (Age 63) Mother Alive Paternal Grandfather (Age 93) Paternal Grandmother (Age 88) Social History Tobacco Use Types Packs/Day Years Used Date Smoking Tobacco: Every Day Cigarettes 0.5 30 Smokeless Tobacco: Former Chew Quit: 2011 Tobacco Cessation:Ready to Q uit: Not Asked; Counseling Given: Not Answered Comments:Vaping CBD/THC Alcohol Use Standard Drinks/Week Comments Yes 0 (1 standard drink = 0.6 oz pure alcohol) 1-2 drinks a month. Down from 1 pint of whiskey. states cut back intake drastically. Humiliation, Afraid, Rape, and Kick questionnair e [...] often do you attend chur ch or mormon services? Never 12/25/2020 Do you belong to any clubs o r organizations such as protestant groups, unions, fraternal or athletic groups, or [...] move on to questions 3-9 2 12/25/2020 [facility] - Occupational Stress [...] place to sleep or slept in a halfway (including now)? No 12/25/2020 Sex and Gender Information Value Date Recorded Sex Assigned at Male 12/25/2020 2:35 AM CDT Legal Sex Male 7:50 PM CDT Gender Identity Male 12/25/2020 2:35 AM CDT Sexual Orientation Straight 12/25/2020 2: 35 AM CDT Last Filed Vital Signs Vital Sign Reading Time Taken Comments Blood Pressure 104/68 12/20/2023 10:55 AM CDT Pulse 109 12/20/2023 10:55 AM CDT Temperature 35.8 ??C (96.4 ??F) 09/19/2023 6:08 PM CD T Respiratory Rate 26 09/20/2023 7:00 PM CDT Oxygen Saturation 92% 12/20/2023 10:55 AM CDT Inhaled Oxygen Concentration - - Weight 92.5 kg (204 lb) 12/20/2023 10:55 AM CDT Height 182.9 cm (6') 12/20/2023 10:55 AM CDT Body Mass Index 27.67 12/20/2023 10:55 AM CDT Plan of Treatment Upcoming Encounters Date Type Department Care Team (Late st Contact Info) Description 06/26/2024 1:00 PM CALCULATION CLERK Office Visit [facility] [place] [address] Francy Lemon, ASSISTANT MEDIA PLANNER [address] [facility] [address] [place], [place] [address] Matt Moore MD [facility] [address] [place], [place] [id number] Health Maintenance Due Date Last Done Comments Colorectal Cancer Screening Colonoscopy (10 Years) 1967 Annual Physical 10/16/1970 Pneumococcal Vaccine: Pediatrics (0 to 5 Years) and At-Risk Patients (6 to 64 Years) (1 of 2 - PCV) 10/16/1973 PHQ-2 (Physician [place]) 1979 Hepatitis C 10/16/1985 Hepatitis B Vaccines (1 of 3 - 19+ 3-dose series) 10/16/1986 DTaP, Tdap and Td Vaccines ( 1 - Tdap) 07/02/1998 07/01/1998 Zoster Vaccines (1 of 2) 10/16/2017 COVID-19 Vaccine (3 - 2023-2 5 season) 2024 08/18/2020, 07/28/2020 Influenza Adult (#1) 2024 03/08/2021, 03/03/2019, 02/05/2018 PHQ-2 (Physician [place]) 05/29/2024 Colorectal Cancer Screening FIT/FOBT (1 Year) Discontinued 09/15/2019 Meningococcal B Vaccine Aged Out No l onger eligible based on patient's age to complete this topic Meningococcal Vaccine Aged Out No ibrahima charles eligible based on patient's age to complete this topic RSV Immunizations Under 20 Months Aged Out No longer eligible based on patient's age to complete this topic Goals Goal Patient Goal Type Associated Problems Recent Progress Patient-Stated? Author Family - family caregiver with be involved in care transitions and discharge planning General No Velma Tejada RN Monitor - able to maintain pain control General No Nancy Matthews RN Safety ? Patient/family will have appropriate support at home upon discharge General No Liliane Erwin RN Patient will return to prior living situation and remain independent in ADLs upon discharge from hospital General No Elba Chavira, RN Reduce alcohol intake Lifestyle No Lali Cody RN Reduce alcohol intake Lifestyle No Nancy Matthews pet trainer Procedure Name Priority Date/Time Associated Diagnosis Comments OCCULT BLOOD, FECES Routine 09/15/2019 4 :49 PM CDT from Last 3 Months or Most Recently Relevant to Health Maintenance Results * OCCULT BLOOD, FECES (09/15/2019 4:49 PM CDT) OCCULT BLOOD FECAL NEGATIVE 09/15/2019 5:56 PM CDT [facility] STOOL SPECIMEN / Unknown 09/15/2019 4:49 PM CDT González Morataya PA-C BODY FLUIDS AND STOOLS ORDERAB LES Final Result [facility] [address] [place] [address], from Last 3 Months or Most Recently Relevant to Health Maintenance Insurance Advance Directives * Full Code (Latest Code Status on File) Date Activated Date Inactivated Comments 09/19/2023 11:57 PM 09/20/2023 9:39 PM * Full Code Date Activated Date Inactivated Comments 06/20/2021 12:25 AM 06/23/2021 2:53 PM * Full Code Date Activated Date Inactivated Comments 03/05/2021 10:33 PM 03/11/2021 1:58 PM * Full Code Date Activated Date Inactivated Comments 12/28/2020 11:59 PM 01/01/2021 3:58 PM * Full Code Date Activated Date Inactivated Comments 12/24/2020 11:31 PM 12/26/2020 7:51 PM Care Teams Nascar Pit Crew Person Relationship Specialty Start Date End Date Lamebrto Barker MD [address] [place] [address] PCP - General INTERNAL MEDICINE 05/08/19
--- NOTE | 2024-06-23 07:09 | ECG_ITS ---
Test Date: 2024-06-23 07:22:51 Measurements Intervals [place] Rate: 68 P: 57 MT: 154 QRS: -14 QRSD: 100 T: 1 QT: 456 QTc: 486 Interpretive Statements SINUS RHYTHM PROLONGED QT INTERVAL Compared to ECG 06/21/2024 02:25:28 Prolonged QT interval now present Electronically Signed On 06-23-2024 22:09:12 SNUFF CONTAINER INSPECTOR by Marques Florence M.D.
[2024-06-23 07:25] LABS: Basophils Percent Auto 0.2 % (0.2-1.2); Eosinophils Percent Auto 0.3 % (0-4.4); Hematocrit 38.1 % (42.0-52.0); Hemoglobin 12.9 g/dL (14.0-18.0); Immature Granulocyte Absolute 0.05 K/mm3 (0.00-0.031); Immature Granulocyte Percent A 0.5 % (0-0.5); Lymphocytes Absolute Auto 1.24 K/mm3 (0.9-3.2); Lymphocytes Percent Auto 11.3 % (18.3-44.2); Mean Corpuscular HGB Conc 33.9 g/dl (32-36); Mean Corpuscular Hemoglobin 30.3 pg (26-34); Mean Corpuscular Volume 89.4 fl (80-100); Mean Platelet Volume 9.4 fl (7.4-10.4); Monocytes Absolute Auto 0.7 K/mm3 (0.1-0.6); Monocytes Percent Auto 6.6 % (2.6-8.5); Neutrophils Absolute Auto 8.9 K/mm3 (1.3-6.7); Neutrophils Percent Auto 81.1 % (45.5-73.1); Platelet Count Result 356 k/mm3 (150-375); Red Blood Count 4.26 M/mm3 (4.6-6.20); Red Cell Distribution Width 13.9 % (11.5-14.5); White Blood Count 10.9 K/mm3 (4.5-10.0)
[2024-06-23] MEDS: LACTATED RINGERS 1,000 ML 999 ML IV CONT ×3 (07:28→07:29)
[2024-06-23] MEDS: FAMOTIDINE 20 MG/2 ML VIAL IV PUSH (07:42)
[2024-06-23] MEDS: MAG HYDROX/AL HYDROX/SIMETH 30 ML UDC PO (07:42)
[2024-06-23 07:45] LABS: Alanine Aminotransferase 21 U/L (6-50); Albumin Level 4.2 g/dL (3.5-5.1); Alkaline Phosphatase 121 U/L (38-126); Anion Gap 16 mmol/L (4-12); Aspartate Amino Transferase 22 U/L (17-59); Bilirubin,Total 0.5 mg/dL (0.2-1.3); Blood Urea Nitrogen 10 mg/dL (9-20); Calcium 9.3 mg/dL (8.4-10.2); Carbon Dioxide 17 mmol/L (22-30); Chloride 102 mmol/L (98-107); Estimated CRCL calculation 62 ml/min; Estimated Glomerular Filt Rate 57; Glucose 173 mg/dL (65-110); Potassium 3.2 mmol/L (3.4-5.0); Sodium 135 mmol/L (137-145)
[2024-06-23 07:47] LABS: Troponin I < 0.012 ng/mL (0.000-0.034)
[2024-06-23] MEDS: THIAMINE 500 MG/NS 100 ML 500 MG/100 ML BAG 200 MG IVPB (07:52)
[2024-06-23 08:07] LABS: Add Urine Microscopic? YES; Appearance Urine Clear (Clear); Bacteria Urine None Seen /hpf; Bilirubin Urine Negative (Negative); Blood Urine Negative (Negative); Color Urine Yellow (Yellow); Glucose Urine UA Negative (Negative); Ketones Urine Negative (Negative); Leukocyte Esterase Ur Negative LEU/UL (Negative); Need Manual Microscopic Reviewed; Nitrate Urine Negative (Negative); Protein Urine Trace mg/dL (Negative); RBC Urine 0-2 /hpf (0-2); Specific Grav Ur 1.012 (1.001-1.035); Squamous Epithelial Cell Urine None Seen /hpf (Few); Urobilinogen Urine 0.2 mg/dL (<2.0); WBC Urine 0-5 /hpf (0-3); pH Urine 5.5 (5.0-9.0)
[2024-06-23 08:07] LABS: Lipase 2106 U/L (23-300)
[2024-06-23 08:30] LABS: Ethanol 134 mg/dL (<10)
[2024-06-23] MEDS: ONDANSETRON INJ 4 MG/2 ML VIAL IV PUSH ×3 (08:32→20:58)
[2024-06-23] MEDS: HYDROmorphone HCL INJ (*CRX) 1 MG/ML SYR IV PUSH (08:32)
--- NOTE | 2024-06-23 08:41 | ED_ITS ---
HPI - General Adult General Chief complaint: Abdominal Pain Stated complaint: chest pain and abdominal pain Time Seen by Provider: 06/23/24 07:13 History of Present Illness HPI narrative: This is a 58-year-old male history of alcohol abuse presenting for nausea vomiting and abdominal pain. Patient has recently undergone a worsen drinks heavily every night. He has already been drinking this morning when he developed pain in his epigastric area chest associated with nausea vomiting. He says this feels similar to episodes of pancreatitis he has had in the past. Patient is denying fevers chills difficulty breathing or urinary symptoms. He would like to stop drinking. Related Data Home Medications ?Medication ?Instructions ?Recorded ?Confirmed ?Last Taken ?Type azaxhfbw-ngpd-tekzt acid 400 1 tablet PO DAILY 02/03/21 05/14/24 11/18/21 History mcg-lycopene 600 mcg-ginkgo 120 mg tablet lidocaine 5 % topical patch 1 patch topical DAILY 06/01/22 05/14/24 Unknown History melatonin 10 mg capsule 10 mg PO QHS 06/01/22 05/14/24 Unknown History potassium gluconate 595 mg (99 mg) 595 mg PO DAILY 04/25/23 05/14/24 Unknown History tablet psyllium husk 0.4 gram capsule 0.4 g PO DAILY 04/25/23 05/14/24 Unknown History (Metamucil) losartan 25 mg tablet 25 mg PO DAILY 06/28/23 05/14/24 Unknown History Allergies Allergy/AdvReac Type Severity Reaction Status Date / Time amoxicillin Allergy Intermediate rash Verified 06/23/24 07:16 Penicillins Allergy Intermediate Pruritic Verified 06/23/24 07:16 rash PMFSH Past Medical History Medical History Screening for prostate cancer Elevated PSA JOSE (acute kidney injury) Vomiting, unspecified Viral syndrome Plantar fasciitis of left foot Paresthesia Memory loss Gastroesophageal reflux disease without esophagitis Gastritis and duodenitis Flu-like symptoms Essential hypertension Enthesopathy of elbow Dizziness Diarrhea, unspecified Cough Alcoholism Colon cancer screening Fracture of vertebra due to osteoporosis with routine healing Bilateral hand pain Dyspnea Generalized osteoarthritis of multiple sites Encounter for medication management Counseling on health promotion and disease prevention Inflammatory arthritis (~08/2019) H/O blood clots History of pancreatitis History of pulmonary embolism (~08/2019) JOSE (acute kidney injury) Pneumonia Angioedema (~08/2019) Acute pulmonary embolism Thrombocytopenia (~08/2019) PUD (peptic ulcer disease) History of GI bleed Pancreatitis H/O: HTN (hypertension) Hypercholesteremia GERD (gastroesophageal reflux disease) Surgical History Surgical History History of appendectomy Family History Family History Mother Hypertension Sibling Patient's brother is in good health Father Family history of pancreatic cancer Social History Social History Smoking packs per day: 0.5 Smoking cigarettes per day: 10.0 Years smoked: 35 Smoking pack-years: 17.50 Smoking status: Current every day smoker Tobacco type: cigarettes Second hand tobacco smoke exposure: No Alcohol intake: current Drinks per week: 1 Alcohol use details: SHOT Substance use: current Substance use type: marijuana Other substance usage details: MEDICAL CARD-DAILY FOR BACK PAIN Do You Feel Safe in your Home?: Yes Lack of Transportation: No Lack of Food: Never True Current Housing: I Have Housing Concerned About Future Housing: No Difficulty Paying Gas/Electric Bills: No Difficulty Paying for Meds: No Currently Unemployed: Decline to Answer Education: Decline to Answer Difficulty w/ Childcare or Family Care: No Living arrangements: with family Occupation/Education: retired Additional occupation/education comments: chronic pancreatitis Gender identity (if verbalized by the patient): Male Spiritual care concerns: No Exam 2 Narrative: APPEARANCE: Patient appears older than his stated age Head: atraumatic. EYES: EOMI, NOSE: Atraumatic NECK: Trachea midline RESPIRATORY: No increased rate of breathing clear to auscultation CARDIOVASCULAR: RRR, peripheral edema ABDOMINAL: Diffusely tender in the epigastric region with voluntary guarding MUSCULOSKELETAl: No obvious deformities NEURO: Alert. Moving 4/4 extremities SKIN:: Warm, dry. Normal color PSYCHIATRIC: Normal affect Course Vital Signs Vital signs: Vital Signs Temperature 97.4 F L 06/23/24 07:04 Pulse Rate 65 06/23/24 07:04 Respiratory Rate 16 06/23/24 07:04 Blood Pressure 75/44 L 06/23/24 07:04 Pulse Oximetry 97 06/23/24 07:04 Temperature 97.4 F L 06/23/24 07:04 Pulse Rate 94 06/23/24 08:43 Respiratory Rate 17 06/23/24 08:43 Blood Pressure 121/85 06/23/24 08:43 Pulse Oximetry 100 06/23/24 08:43 Medical Decision Making MDM Narrative Medical decision making narrative: -Course: 58-year-old male alcohol use disorder presenting for epigastric pain and vomiting. Patient initially hypotensive but responded well to 3 L of lactated Ringer's. Given 500 mg thiamine, pain control, and antiemetics. Potassium repleted. Lipase elevated. CT showed calcifications in the pancreas with biliary dilation and gallbladder wall thickening. No elevations in T bili or liver enzymes. This could be due to a stone versus calcifications from chronic pancreatitis. Case was discussed with Dr. Osullivan since this time he would like an MRCP performed to further evaluate. Alcohol level 134. Patient is high risk for alcohol withdrawal. CIWA protocol placed. Patient will be admitted hospital for further management -DDX includes but is not limited to: Pancreatitis, alcoholic gastritis, alcoholic ketoacidosis, alcoholic ketoacidosis -Independent interpretation of studies: Independent EKG interpretation: Rhythm [sinus], Rate [68], [place] -[normal], [place] -[normal], QRS [narrow], QTC [normal], T waves -[negative for concerning inversions], ST Segments - [Negative for concerning elevations] Final interpretations: [Normal Sinus Rhythm] -Discussion of Management/Consultants: Clem Osullivan -Shared decision making / Disposition:admitted. Vital Signs Vital Signs: Vital Signs Temperature 97.4 F L 06/23/24 07:04 Pulse Rate 65 06/23/24 07:04 Respiratory Rate 16 06/23/24 07:04 Blood Pressure 75/44 L 06/23/24 07:04 Pulse Oximetry 97 06/23/24 07:04 Temperature 97.4 F L 06/23/24 07:04 Pulse Rate 94 06/23/24 08:43 Respiratory Rate 17 06/23/24 08:43 Blood Pressure 121/85 06/23/24 08:43 Pulse Oximetry 100 06/23/24 08:43 Lab Data 06/23/24 07:17 06/23/24 07:17 Labs: Lab Results 06/23/24 06/23/24 06/23/24 Range/Units 07:17 07:50 08:45 WBC 10.9 H (4.5-10.0) K/mm3 RBC 4.26 L (4.6-6.20) M/mm3 Hgb 12.9 L (14.0-18.0) g/dL Hct 38.1 L (42.0-52.0) % MCV 89.4 (80-100) fl MCH 30.3 (26-34) pg MCHC 33.9 (32-36) g/dl RDW 13.9 (11.5-14.5) % Plt Count 356 (150-375) k/mm3 MPV 9.4 (7.4-10.4) fl Immature Gran % (Auto) 0.5 (0-0.5) % Neut % (Auto) 81.1 H (45.5-73.1) % Lymph % (Auto) 11.3 L (18.3-44.2) % [place] % (Auto) 6.6 (2.6-8.5) % Eos % (Auto) 0.3 (0-4.4) % Baso % (Auto) 0.2 (0.2-1.2) % Lymph # (Auto) 1.24 (0.9-3.2) K/mm3 [place] # (Auto) 0.7 H (0.1-0.6) K/mm3 Eos # (Auto) 0.0 (0-0.3) K/mm3 Baso # (Auto) 0.0 (0.0-0.1) K/mm3 Abs Immat Gran (auto) 0.05 H (0.00-0.031) K/mm3 Absolute Neuts (auto) 8.9 H (1.3-6.7) K/mm3 Absolute Nucleated RBC 0.000 (0.0-0.012) K/mm3 Nucleated RBC % 0.0 (0.0-0.2) % Sodium 135 L (137-145) mmol/L Potassium 3.2 L (3.4-5.0) mmol/L Chloride 102 (98-107) mmol/L Carbon Dioxide 17 L (22-30) mmol/L Anion Gap 16 H (4-12) mmol/L BUN 10 D (9-20) mg/dL Creatinine 1.30 (0.7-1.3) mg/dL Estim Creat Clear Calc 62 ml/min Estimated GFR 57 L (59 - ) Glucose 173 H (65-110) mg/dL POC Capillary Glucose 136 H (65-105) mg/dl Calcium 9.3 (8.4-10.2) mg/dL Total Bilirubin 0.5 (0.2-1.3) mg/dL AST 22 (17-59) U/L ALT 21 (6-50) U/L Alkaline Phosphatase 121 (38-126) U/L Troponin I < 0.012 (0.000-0.034) ng/mL Total Protein 7.0 (6.3-8.2) g/dL Albumin 4.2 (3.5-5.1) g/dL Lipase 2106 H (23-300) U/L Urine Color Yellow (Yellow) Urine Appearance Clear (Clear) Urine pH 5.5 (5.0-9.0) Ur Specific [place] 1.012 (1.001-1.035) Urine Protein Trace (Negative) mg/dL Urine Glucose (UA) Negative (Negative) mg/dL Urine Ketones Negative (Negative) mg/dL Ur Blood (Man) Negative (Negative) Urine Nitrate Negative (Negative) Urine Bilirubin Negative (Negative) Urine Urobilinogen 0.2 (<2.0) mg/dL Add Ur Microanalysis Reviewed Leukocyte Esterase Rfl Negative (Negative) KRISTOFER/UL Urine RBC 0-2 (0-2) /hpf Urine WBC 0-5 (0-3) /hpf Ur Squamous Epith Cells None seen (Few) /hpf Urine Bacteria None seen /hpf Urine Casts 3-5 Urine Opiates Screen Negative (Negative) Urine Methadone Screen Negative (Negative) Ur Barbiturates Screen Negative (Negative) Ur Phencyclidine Scrn Negative (Negative) Ur Amphetamine Screen Negative (Negative) U Benzodiazepines Scrn Negative (Negative) Urine Cocaine Screen Negative (Negative) U Cannabinoids Screen Positive A (Negative) Ethyl Alcohol 134 (<10) mg/dL Critical Care Time Critical Care Time Critical Care Time: Yes Total Critical Care Time: 45 Discharge Plan Discharge Clinical Impression: Alcohol abuse, Pancreatitis, Dilation of biliary tract Instructions: Antibiotic Form Patient Language: Vietnamese Prescriptions: No Action fluticasone propionate [Flonase Allergy Relief] 50 mcg/actuation spray,suspension 2 spray intranasal DAILY Qty: 16 0RF Rx Instructions: administer into each nostril fenofibrate 160 mg tablet 160 mg PO DAILY Qty: 90 1RF folic acid 1 mg tablet See Rx Instructions .ROUTE .COMPLEX Qty: 90 1RF Dose Instruction: TAKE 1 TABLET BY MOUTH DAILY Rx Instructions: TAKE 1 TABLET BY MOUTH DAILY pantoprazole 40 mg tablet,delayed release (DR/EC) See Rx Instructions .ROUTE .COMPLEX Qty: 90 1RF Dose Instruction: TAKE 1 TABLET BY MOUTH EVERY MORNING Rx Instructions: TAKE 1 TABLET BY MOUTH EVERY MORNING meloxicam 7.5 mg tablet 7.5 mg PO BID PRN (Reason: joint pain) Qty: 60 5RF duloxetine [Cymbalta] 30 mg capsule,delayed release(DR/EC) 90 mg PO .COMPLEX Qty: 90 5RF Rx Instructions: 90 mg orally Take 2 capsules in AM and then 1 capsule in the evening.; melatonin 10 mg capsule 10 mg PO QHS lidocaine 5 % adhesive patch,medicated 1 patch topical DAILY psyllium husk [Metamucil] 0.4 gram capsule 0.4 g PO DAILY potassium gluconate 595 mg (99 mg) tablet 595 mg PO DAILY ondansetron 4 mg tablet,disintegrating 4 mg PO Q8H PRN (Reason: nausea and vomiting) Qty: 30 0RF losartan 25 mg tablet 25 mg PO DAILY tobramycin 0.3 % drops 1 drp LEFT EYE Q4H Qty: 5 0RF ondansetron 4 mg tablet,disintegrating 4 mg PO Q8H PRN (Reason: nausea and vomiting) Qty: 15 0RF chlordiazepoxide HCl 25 mg capsule 25 mg PO TID PRN (Reason: alcohol withdrawal) Qty: 15 0RF eu-vqwh-ktobp-lycopene-ginkgo 400-600-120 mcg-mcg-mg Tablet 1 tablet PO DAILY sildenafil 100 mg tablet 100 mg PO DAILY PRN (Reason: sexual activity) Qty: 8 3RF Rx Instructions: administer 30 minutes to 4 hours before activity Creon 12,000-38,000 -60,000 unit capsule,delayed release(DR/EC) 1 cap PO TID Qty: 90 5RF Rx Instructions: administer with meals and/or snacks tadalafil 20 mg tablet See Rx Instructions .ROUTE .COMPLEX Qty: 8 4RF Dose Instruction: TAKE 1 TABLET BY MOUTH DAILY SEXUAL ACTIVITY AND 30 MINUTES BEFORE SEXUAL ACTIVITY NEEDED. DO NOT USE MORE THAN 1 DOSE PER 24 HOURS Rx Instructions: TAKE 1 TABLET BY MOUTH DAILY SEXUAL ACTIVITY AND 30 MINUTES BEFORE SEXUAL ACTIVITY NEEDED. DO NOT USE MORE THAN 1 DOSE PER 24 HOURS gabapentin 300 mg capsule 300 mg PO Q8H Qty: 270 1RF trazodone 50 mg tablet 100 mg PO .QHS PRN (Reason: insomnia) Qty: 180 1RF tizanidine 4 mg tablet See Rx Instructions .ROUTE .COMPLEX Qty: 60 2RF Dose Instruction: TAKE 1 TO 2 TABLETS BY MOUTH EVERY NIGHT AT BEDTIME NEEDED FOR MUSCLE SPASMS Rx Instructions: TAKE 1 TO 2 TABLETS BY MOUTH EVERY NIGHT AT BEDTIME NEEDED FOR MUSCLE SPASMS amlodipine 10 mg tablet 10 mg PO DAILY Qty: 90 1RF Follow-up/Referrals: Ronnell Escobar APRN [Primary Care Provider] -
[2024-06-23 08:43] LABS: Amphetamine Screen Urine Negative (Negative); Barbiturate Screen Urine Negative (Negative); Benzodiazepines Screen Urine Negative (Negative); Cannabinoid Screen Urine Positive (Negative); Cocaine Screen Urine Negative (Negative); Methadone Screen Urine Negative (Negative); Opiate Screen Urine Negative (Negative); Phencyclidine Screen Urine Negative (Negative)
[2024-06-23 08:49] LABS: Glucose Point of Care 136 mg/dl (65-105)
[2024-06-23] MEDS: METOCLOPRAMIDE HCL INJ 10 MG/2 ML VIAL IV PUSH (09:24)
--- NOTE | 2024-06-23 10:00 | ECG_ITS ---
Test Date: 2024-06-23 10:04:45 Measurements Intervals [place] Rate: 87 P: 55 OR: 151 QRS: -14 QRSD: 90 T: 22 QT: 385 QTc: 466 Interpretive Statements SINUS RHYTHM Compared to ECG 06/23/2024 07:22:51 Prolonged QT interval no longer present Electronically Signed On 06-23-2024 22:05:51 BUN PANNER by Marques Florence M.D.
[2024-06-23] MEDS: POTASSIUM CHLORIDE INJ 40 MEQ in SODIUM CHLORIDE 0.9% IV 500 ML 130 MEQ IVPB (10:15)
[2024-06-23] MEDS: DEXTROSE 5%/0.45% SOD CHL 1,000 ML 125 ML IV CONT (10:27)
[2024-06-23 10:43] LABS: Troponin I < 0.012 ng/mL (0.000-0.034)
[2024-06-23] MEDS: chlordiazePOXIDE (*CRX) 25 MG CAPSULE 50 MG PO ×3 (11:31→23:06)
[2024-06-23] MEDS: LORazepam INJ (*CRX) 2 MG/ML VIAL IV PUSH ×5 (11:35→20:58)
--- NOTE | 2024-06-23 11:53 | ADMGEN ---
This patient, Garrison Norman, was admitted to [facility]. Patient/family oriented to hospital policies and general routines including ID bracelet, bed and alarms, visiting hours, pain management, procedures, bathroom and other care routines, personal items, smoking policy, room service/diet, and visiting hours. Information on how to activate the Rapid Response Team has been discussed. Patient/Family are encouraged to report perceived risks to care and to ask questions if they do not understand what they are told or what they should do.
[2024-06-23 12:05] LABS: Glucose Point of Care 156 mg/dl (65-105)
[2024-06-23] MEDS: HYDROmorphone HCL INJ (*CRX) 1 MG/ML SYR 0.5 MG IV PUSH ×3 (12:46→23:08)
--- NOTE | 2024-06-23 12:53 | P.HP_ITS ---
H&P: HPI History of Present Illness Date/Time: 06/23/24 12:53 Chief Complaint: Abdominal pain Narrative: 52 yo old male past medical history of hypertension, chronic pancreatitis who presented to the ER because of abdominal pain. Patient is a poor historian reported he has been having abdominal pain the past 3 days the per the original radiated to the back described as sharp 10/10 in intensity. prior diagnosis of chronic pancreatitis from alcohol consumption however continues drinking 12 drinks per day. Smokes about a packet daily, smokes marijuana. Otherwise denies any chest pain, shortness her breath no diarrhea no dysuria no focal symptoms. ER evaluation notable for temperature 97.4?, pulse rate 65, respiratory 16, saturating 97% on room blood pressure 75/44. Labs notable WBC 10.9, Hb 12.9, K 3.2, Cr 1.3, Lipase 2106. CT AP showed possible calcified stone in the distal common bile duct versus sequelae of chronic pancreatitis, Distended gallbladder with possible mild wall thickening. GI was consulted prior to admission. Review of Systems Review of Systems: All other systems were reviewed and negative except as noted in the HPI above [facility] Past Medical History Medical History Screening for prostate cancer Elevated PSA JOSE (acute kidney injury) Vomiting, unspecified Viral syndrome Plantar fasciitis of left foot Paresthesia Memory loss Gastroesophageal reflux disease without esophagitis Gastritis and duodenitis Flu-like symptoms Essential hypertension Enthesopathy of elbow Dizziness Diarrhea, unspecified Cough Alcoholism Colon cancer screening Fracture of vertebra due to osteoporosis with routine healing Bilateral hand pain Dyspnea Generalized osteoarthritis of multiple sites Encounter for medication management Counseling on health promotion and disease prevention Inflammatory arthritis (~08/2019) H/O blood clots History of pancreatitis History of pulmonary embolism (~08/2019) JOSE (acute kidney injury) Pneumonia Angioedema (~08/2019) Acute pulmonary embolism Thrombocytopenia (~08/2019) PUD (peptic ulcer disease) History of GI bleed Pancreatitis H/O: HTN (hypertension) Hypercholesteremia GERD (gastroesophageal reflux disease) Surgical History Surgical History History of appendectomy Family History Family History Mother Hypertension Sibling Patient's brother is in good health Father Family history of pancreatic cancer Social History Social History Smoking packs per day: 0.5 Smoking cigarettes per day: 10.0 Years smoked: 35 Smoking pack-years: 17.50 Smoking status: Current every day smoker Tobacco type: cigarettes Second hand tobacco smoke exposure: No Alcohol intake: current Drinks per week: 50 Alcohol use details: SHOT Substance use: current Substance use type: marijuana Other substance usage details: MEDICAL CARD-DAILY FOR BACK PAIN Do You Feel Safe in your Home?: Yes Lack of Transportation: No Lack of Food: Never True Current Housing: I Do Not Have Housing Concerned About Future Housing: No Difficulty Paying Gas/Electric Bills: No Difficulty Paying for Meds: No Currently Unemployed: No Education: Don't Know Difficulty w/ Childcare or Family Care: No Living arrangements: with family Occupation/Education: retired Additional occupation/education comments: chronic pancreatitis Gender identity (if verbalized by the patient): Male Spiritual care concerns: No Meds Home Medications and Allergies Home Medications ?Medication ?Instructions ?Recorded ?Confirmed ?Type livnnzso-oayt-jcuaw acid 400 1 tablet PO DAILY 02/03/21 05/14/24 History mcg-lycopene 600 mcg-ginkgo 120 mg tablet fluticasone propionate 50 2 spray intranasal DAILY #16 grams 05/21/22 05/14/24 Rx mcg/actuation nasal spray,suspension (Flonase Allergy Relief) lidocaine 5 % topical patch 1 patch topical DAILY 06/01/22 05/14/24 History melatonin 10 mg capsule 10 mg PO QHS 06/01/22 05/14/24 History sildenafil 100 mg tablet 100 mg PO DAILY PRN sexual 12/12/22 05/14/24 Rx activity #8 tabs ondansetron 4 mg disintegrating 4 mg PO Q8H PRN nausea and 04/25/23 05/14/24 Rx tablet vomiting #30 tabs potassium gluconate 595 mg (99 mg) 595 mg PO DAILY 04/25/23 05/14/24 History tablet psyllium husk 0.4 gram capsule 0.4 g PO DAILY 04/25/23 05/14/24 History (Metamucil) losartan 25 mg tablet 25 mg PO DAILY 06/28/23 05/14/24 History aemzrn-tyhhkwcp-jvbsedm 1 cap PO TID #90 caps 07/13/23 05/14/24 Rx 12,000-38,000-60,000 unit capsule,delayed rel (Creon) tadalafil 20 mg tablet See Rx Instructions .Route 12/06/23 05/14/24 Rx .COMPLEX #8 tabs fenofibrate 160 mg tablet 160 mg PO DAILY #90 tabs 01/23/24 05/14/24 Rx folic acid 1 mg tablet See Rx Instructions .Route 01/23/24 05/14/24 Rx .COMPLEX #90 tabs pantoprazole 40 mg tablet,delayed See Rx Instructions .Route 01/23/24 05/14/24 Rx release .COMPLEX #90 tabs duloxetine 30 mg capsule,delayed 90 mg (3 x 30 mg) PO .COMPLEX #90 04/02/24 05/14/24 Rx release (Cymbalta) caps meloxicam 7.5 mg tablet 7.5 mg PO BID PRN joint pain #60 04/02/24 05/14/24 Rx tabs gabapentin 300 mg capsule 300 mg PO Q8H #270 caps 05/01/24 05/14/24 Rx trazodone 50 mg tablet 100 mg (2 x 50 mg) PO .QHS PRN 05/09/24 05/14/24 Rx insomnia #180 tabs tobramycin 0.3 % eye drops 1 drp LEFT EYE Q4H #5 mL 05/14/24 05/14/24 Rx tizanidine 4 mg tablet See Rx Instructions .Route 05/17/24 Rx .COMPLEX #60 tabs amlodipine 10 mg tablet 10 mg PO DAILY #90 tabs 06/17/24 Rx chlordiazepoxide HCl 25 mg capsule 25 mg PO TID PRN alcohol 06/21/24 Rx withdrawal #15 caps ondansetron 4 mg disintegrating 4 mg PO Q8H PRN nausea and 06/21/24 Rx tablet vomiting #15 tabs Allergies Allergy/AdvReac Type Severity Reaction Status Date / Time amoxicillin Allergy Intermediate rash Verified 06/23/24 07:16 Penicillins Allergy Intermediate Pruritic Verified 06/23/24 07:16 rash Vital Signs Vital Signs - 24 hr 06/23/24 07:04 06/23/24 07:23 06/23/24 07:31 Temperature 97.4 F L Pulse Rate 65 69 69 Pulse Rate [Monitor] Respiratory Rate 16 21 H 16 Blood Pressure 75/44 L 81/55 L Pulse Oximetry 97 97 99 06/23/24 07:42 06/23/24 07:45 06/23/24 07:46 Temperature Pulse Rate 82 80 77 Pulse Rate [Monitor] Respiratory Rate 21 H 15 15 Blood Pressure 87/74 L Pulse Oximetry 94 100 100 06/23/24 08:25 06/23/24 08:27 06/23/24 08:30 Temperature Pulse Rate 96 98 102 H Pulse Rate [Monitor] Respiratory Rate 13 17 16 Blood Pressure 126/92 H Pulse Oximetry 100 100 100 06/23/24 08:43 06/23/24 08:44 06/23/24 08:45 Temperature Pulse Rate 94 94 91 Pulse Rate [Monitor] Respiratory Rate 17 15 20 Blood Pressure 121/85 121/85 Pulse Oximetry 100 100 100 06/23/24 08:46 06/23/24 09:00 06/23/24 09:15 Temperature Pulse Rate 94 86 86 Pulse Rate [Monitor] Respiratory Rate 20 17 16 Blood Pressure 129/90 Pulse Oximetry 100 100 100 06/23/24 09:30 06/23/24 09:31 06/23/24 09:58 Temperature Pulse Rate 91 85 114 H Pulse Rate [Monitor] Respiratory Rate 22 H 18 31 H Blood Pressure 129/85 Pulse Oximetry 98 98 92 06/23/24 10:00 06/23/24 10:15 06/23/24 10:18 Temperature Pulse Rate 94 94 95 Pulse Rate [Monitor] Respiratory Rate 17 22 H 16 Blood Pressure 137/97 H Pulse Oximetry 100 98 100 06/23/24 10:36 06/23/24 10:49 06/23/24 11:00 Temperature Pulse Rate 104 H 112 H 109 H Pulse Rate [Monitor] Respiratory Rate 14 21 H 25 H Blood Pressure Pulse Oximetry 100 99 99 06/23/24 11:01 06/23/24 11:53 06/23/24 11:58 Temperature 98.2 F Pulse Rate 105 H 92 Pulse Rate [Monitor] 106 H Respiratory Rate 27 H 16 Blood Pressure 143/96 H 131/77 Pulse Oximetry 97 100 06/23/24 12:10 Temperature Pulse Rate Pulse Rate [Monitor] 98 Respiratory Rate Blood Pressure Pulse Oximetry Exam Narrative: General: alert and comfortable Eyes: EOMI, PERRLA ENNT External ears normal, Neck is supple, no masses, Respiratory systems: Clear to auscultation Cardiovascular S1, S2, normal rhythm, no murmur, rub, or gallop; no thrill or palpable murmurs on palpation. Gastrointestinal: soft, epigastric tenderness, and non-distended abdomen with no masses; BS present Skin: no rash, lesions, ulcerations, subcutaneous nodules or induration Musculoskeletal: no abnormality and no tenderness, normal ROM Neurologic: Alert and oriented x3, non focal H&P: Results Labs Labs: Short CBC 06/23/24 Range/Units 07:17 WBC 10.9 H (4.5-10.0) K/mm3 Hgb 12.9 L (14.0-18.0) g/dL Hct 38.1 L (42.0-52.0) % Plt Count 356 (150-375) k/mm3 BMP 06/23/24 07:17 Sodium 135 L Potassium 3.2 L Chloride 102 Carbon Dioxide 17 L BUN 10 D Creatinine 1.30 Glucose 173 H Calcium 9.3 Cardiac Enzymes 06/23/24 06/23/24 Range/Units 07:17 10:11 Troponin I < 0.012 < 0.012 (0.000-0.034) ng/mL Liver Function 06/23/24 Range/Units 07:17 Total Bilirubin 0.5 (0.2-1.3) mg/dL AST 22 (17-59) U/L ALT 21 (6-50) U/L Alkaline Phosphatase 121 (38-126) U/L Albumin 4.2 (3.5-5.1) g/dL Urine 06/23/24 Range/Units 07:50 Urine Color Yellow (Yellow) Urine Appearance Clear (Clear) Urine pH 5.5 (5.0-9.0) Ur Specific [place] 1.012 (1.001-1.035) Urine Protein Trace (Negative) mg/dL Urine Glucose (UA) Negative (Negative) mg/dL Assessment and Plan Assessment and plan (1) Chronic pancreatitis: Qualifiers: Pancreatitis type: alcohol induced Qualified Code(s): K86.0 - Alcohol- induced chronic pancreatitis Code(s): K86.1 - Other chronic pancreatitis Status: Acute (2) Alcohol-induced pancreatitis: Qualifiers: Chronicity: acute Acute pancreatitis complication: infected necrosis Qualified Code(s): K85.22 - Alcohol induced acute pancreatitis with infected necrosis Code(s): K85.20 - Alcohol induced acute pancreatitis without necrosis or infection Status: Acute (3) Dilation of biliary tract: Code(s): K83.8 - Other specified diseases of biliary tract Status: Acute Plan Acute on chronic pancreatitis From alcoholism patient still drinking alcohol 12 drinks per day NPO, IVF, PRN pain control Lipase 2104 monitor Possible stone in distal common bile duct pancreatic duct dilation CT AP reviewed MRCP ordered GI consulted Distended gall bladder with possibel wall thickening HIDA scan ordered Blood culture and Abx monitor Alcohol abuse counseled about cessation CIWA protocol monitor Tobacco use Counseled about cessation HTN titrate home meds with clinical course DVT prophylaxis on Sq Lovenox
--- NOTE | 2024-06-23 14:06 | PC.NURSE ---
Pt transferred from to .
[2024-06-23 14:14] LABS: Troponin I < 0.012 ng/mL (0.000-0.034)
[2024-06-23] MEDS: SODIUM CHLORIDE 0.9% IV 1,000 ML 100 ML IV CONT (14:50)
[2024-06-23] MEDS: metroNIDAZOLE 500 MG/ISO 100ML 500 MG/100 ML BAG 100 MG IVPB ×2 (14:50→20:52)
[2024-06-23] MEDS: levoFLOXacin 750 MG/D5W 150 ML 750 MG/150 ML BAG 100 MG IVPB (14:51)
[2024-06-23 18:04] LABS: Glucose Point of Care 130 mg/dl (65-105)
[2024-06-23] MEDS: ACETAMINOPHEN 325 MG TABLET 650 MG PO (20:49)
[2024-06-23 23:14] LABS: Glucose Point of Care 120 mg/dl (65-105)
[2024-06-24] VITALS (17 sets, daily range): BP systolic 126–143; BP diastolic 81–90; PULSE 97–118; RESP 14–18; TEMP 36.6–38.1; O2SAT 95–100
[2024-06-24] MEDS: SODIUM CHLORIDE 0.9% IV 1,000 ML 100 ML IV CONT ×2 (01:09→14:16)
[2024-06-24] MEDS: LORazepam INJ (*CRX) 2 MG/ML VIAL IV PUSH ×5 (02:40→21:06)
[2024-06-24] MEDS: HYDROmorphone HCL INJ (*CRX) 1 MG/ML SYR 0.5 MG IV PUSH ×4 (04:08→21:05)
[2024-06-24 05:12] LABS: Lactic Acid Reflex 0.7 mmol/L (0.7-2.0)
[2024-06-24 05:18] LABS: Alanine Aminotransferase 32 U/L (6-50); Albumin Level 3.8 g/dL (3.5-5.1); Alkaline Phosphatase 122 U/L (38-126); Anion Gap 10 mmol/L (4-12); Aspartate Amino Transferase 61 U/L (17-59); Bilirubin,Total 0.6 mg/dL (0.2-1.3); Blood Urea Nitrogen 8 mg/dL (9-20); Calcium 8.6 mg/dL (8.4-10.2); Carbon Dioxide 24 mmol/L (22-30); Chloride 101 mmol/L (98-107); Estimated CRCL calculation 119 ml/min; Estimated Glomerular Filt Rate > 60; Glucose 112 mg/dL (65-110); Magnesium 1.4 mg/dL (1.6-2.3); Potassium 3.5 mmol/L (3.4-5.0); Sodium 135 mmol/L (137-145)
[2024-06-24 05:22] LABS: Basophils Percent Auto 0.2 % (0.2-1.2); Eosinophils Percent Auto 0.1 % (0-4.4); Hematocrit 37.4 % (42.0-52.0); Hemoglobin 12.6 g/dL (14.0-18.0); Immature Granulocyte Absolute 0.03 K/mm3 (0.00-0.031); Immature Granulocyte Percent A 0.2 % (0-0.5); Lymphocytes Absolute Auto 0.89 K/mm3 (0.9-3.2); Lymphocytes Percent Auto 6.6 % (18.3-44.2); Mean Corpuscular HGB Conc 33.7 g/dl (32-36); Mean Corpuscular Hemoglobin 29.8 pg (26-34); Mean Corpuscular Volume 88.4 fl (80-100); Mean Platelet Volume 9.8 fl (7.4-10.4); Monocytes Absolute Auto 1.1 K/mm3 (0.1-0.6); Monocytes Percent Auto 7.8 % (2.6-8.5); Neutrophils Absolute Auto 11.4 K/mm3 (1.3-6.7); Neutrophils Percent Auto 85.1 % (45.5-73.1); Platelet Count Result 283 k/mm3 (150-375); Red Blood Count 4.23 M/mm3 (4.6-6.20); Red Cell Distribution Width 13.8 % (11.5-14.5); White Blood Count 13.4 K/mm3 (4.5-10.0)
[2024-06-24] MEDS: metroNIDAZOLE 500 MG/ISO 100ML 500 MG/100 ML BAG 100 MG IVPB ×3 (06:07→21:03)
[2024-06-24] MEDS: chlordiazePOXIDE (*CRX) 25 MG CAPSULE 50 MG PO ×4 (06:07→23:35)
[2024-06-24] MEDS: ONDANSETRON INJ 4 MG/2 ML VIAL IV PUSH (06:12)
--- NOTE | 2024-06-24 08:58 | P.CONGI_ITS ---
<Statement entered by Shashank Madsen MD - 06/24/24 15:21> I, Shashank Madsen MD, have provided a substantive portion of the care of this patient and discussed the patient with my Nurse Practitioner. I have reviewed any new relevant radiographic and laboratory results including medications. I agree with her documentation as noted below.?I personally performed the medical decision making and much of the history and exam for this encounter. briefly, he has alcoholic chronic pancreatitis for which he underwent several ERCP with stenting by Dr Loya at [facility], apparently last time 08/2023 (noted abnormal duodenum from previous pancreatitis and mild dilated bile duct). He is still drinking alcohol, ~ 12 drinks daily and here with worsening abdominal pain, MRCP noted worsening pancreatitis with necrosis at tail of pancreas, also fluid collection 1.8cm, can not rule out small stone in bile duct. He is at risk of withdrawal and currently in CIWA protocol. Recommend to transfer to his regular GI doctor to decide if may benefit from another ERCP +/- EUS to evaluate fluid collection Assessment and Plan Assessment and plan (1) Alcohol-induced pancreatitis: Qualifiers: Acute pancreatitis complication: infected necrosis Chronicity: acute Q ualified Code(s): K85.22 - Alcohol induced acute pancreatitis with infected necrosis Code(s): K85.20 - Alcohol induced acute pancreatitis without necrosis or infection Status: Acute (2) Chronic pancreatitis: Qualifiers: Pancreatitis type: alcohol induced Qualified Code(s): K86.0 - Alcohol- induced chronic pancreatitis Code(s): K86.1 - Other chronic pancreatitis Status: Acute (3) Dilation of biliary tract: Code(s): K83.8 - Other specified diseases of biliary tract Status: Acute (4) Alcohol abuse: Code(s): F10.10 - Alcohol abuse, uncomplicated Status: Acute (5) Epigastric pain: Code(s): R10.13 - Epigastric pain Status: Acute Plan 1. Acute on chronic pancreatitis/ETOH abuse/epigastric pain: Patient with extensive history and has had multiple ERCPs since 2018 for chronic pancreatitis and history of severe necrotizing pancreatitis , multiple stenting, and multiple sphincterotomies. He presented to the emergency room on the with complaints of abdominal pain, nausea and vomiting. patient was admitted to [facility] in August of 2023 and transfer was recommended at that time to his primary GI doctor Dr. Loya at [place]. According to records the patient's last ERCP performed by Dr. Loya was done in August of 2023 and stent replacement was recommended for November of 2023, patient was unable to say if he had a known other ERCP since then but states that he does not have any stents in place. ERCP in August showed duodenal deformity secondary to recurrent pancreatitis, single mild biliary stricture found in the lower 3rd of the main bile duct which was fibrotic and dilated. Five hundred ten [place] stents were placed at that time. Patient complains of epigastric pain that has improved but not resolved since admission. He otherwise denies any other GI complaints other than constipation given his decreased p.o. intake. MRCP performed today show interval progression of acute on chronic, now necrotic pancreatitis with 2.6 x 1.1 cm region of necrosis at the tail of the pancreas and 1.8 x 1.5 x 0.8 cm acute peripancreatic fluid collection. He is also noted to have dilation of the gallbladder with mild dilation of the common hepatic duct which could be related to apparent 3-4 mm low signal intensity stone at the distal common bile duct. There was no intrahepatic biliary ductal dilation or gallbladder wall thickening to suggest acute cholecystitis. patient with a history of EtOH abuse and was previously drinking 12 drinks per day but denies any alcohol use for almost 1 week but ETOH level was 134 on admission. Labs today showed WBC 13, HGB 13, HCT 37, MCV 88, platelets 283. LFTs normal except mildly elevated AST at 61. Lactic acid 0.7, calcium 8.6, magnesium 1.4 and albumin 3.4. HIDA scan showed delayed accumulation of activity in the gallbladder likely due to the dilated state of the gallbladder. * patient with progressing pancreatitis now showing necrotic area on MRCP, recommend transfer to [place] as Dr. Loya is familiar with the patient and his extensive medical history and procedural history * it does not appear that the patient has stents in place on recent imaging but we have no endoscopy records to show that the patient followed up in December of 2023 for stent removal * continue supportive care with pain management and antiemetics * continue CIWA precautions Thank you very much for allowing me to share in the care this patient GI Consult Note Consult date/time: 06/24/24 08:58 Reason for consult: Pancreatitis HPI: This is a 58 year old male with PMSH of HTN, chronic pancreatitis secondary to ETOH, Hx of severe necrotizing pancreatitis, ETOH abuse, memory loss, GERD, Hx of PE, PUD with Hx of GI bleed and appendectomy. He presented to the ER with complaints of abdominal pain. Patient is a poor historian so obtaining subjective information was somewhat limited. The patient complains of epigastric pain that he states has improved but not resolved since admission. Patient states that his last bowel movement was last Monday and was formed. Patient states that he has been under significant stress as he is currently going through a divorce he denies any alcohol use since the day prior to his ER visit for alcohol level on admission was 134. He denies nausea, vomiting, odynophagia, dysphagia, reflux, regurgitation, appetite loss, unexplained weight loss, hematochezia or melena. Patient with a history of 12 drinks nightly but denies any alcohol use prior to admission, 1 pack per day smoker and uses marijuana regularly. Family history negative for CRC or IBD. ENDOSCOPY: ERCP: 09/21/[address] Loya for benign CBD stricture, pancreatic duct stricture and chronic pancreatitis Findings: duodenal deformity due to pancreatitis Four partially occluded stents from the biliary tree were seen in the major papilla. Removed. Prior biliary sphincterotomy appeared open A single mild biliary stricture was found in the lower 3rd of the main bile duct. The stricture was fibrotic. Improved. Dilated to 10 mm, 510 [place] stents placed Choledocholithiasis found. Complete removal was accomplished by balloon extraction 4 month stent exchange recommended ERCP: 06/02/[address] Loya for benign CBD stricture, pancreatic duct stricture and chronic pancreatitis Findings: 2 stents from the common bile duct were seen in the major papilla. These were removed. Primary biliary sphincterotomy appeared open Fibrotic distal bile duct stricture was found in the distal common bile duct with upstream dilation of the entire bile duct. Brushed for cytology. Dilated to 10 mm, 410 [place] stents placed Cells for cytology obtained with brushing of the common bile duct stricture MRCP in 2 months Repeat ERCP in 4 months for stent change Bx Results: 06/02/2023 Distal common bile duct stricture, brushing: Negative for malignancy ERCP: 01/05/[address] Loya for benign CBD stricture, pancreatic duct stricture and chronic pancreatitis Findings: Three stents were seen in the major papilla, removed Prior biliary and pancreatic sphincterotomy appeared open A single moderate biliary stricture was found in the lower 3rd of the main bile duct. The stricture was fibrotic. Improved not resolved. Two hundred ten [place]i stents were placed Chronic pancreatitis. Resolved pancreatic duct stricture. Migratory pancreatic stent placed The biliary tree was swept and sludge was found 3 month repeat recommended for stent exchange ERCP: 11/03/[address] Loya for benign CBD stricture, pancreatic duct stricture and chronic pancreatitis Findings: 3 stents were seen in the major papilla, removed Prior biliary and pancreatic sphincterotomy appeared open Prior pancreatic sphincterotomy appeared open A single moderate biliary stricture was found in the lower 3rd of the main bile duct. The stricture was fibrotic and improving. Two stents were replaced Chronic pancreatitis with resolving stricture. Stent placed The biliary tree was swept and sludge was found 2 month repeat was recommended for stent exchange ERCP: 09/08/[address] Loya for benign CBD stricture, pancreatic duct stricture and chronic pancreatitis Findings: 3 stents were seen in the major papilla. Removed Prior biliary and pancreatic sphincterotomy appeared open A single moderate biliary stricture was found in the lower 3rd of the main bile duct. The stricture was fibrotic, due to chronic pancreatitis, slowly improving. Two stents replaced A pancreatic duct stricture was found in setting of chronic pancreatitis, slowly improving. Stent replaced. The biliary tree was swept and sludge was found two-month repeat recommended for stent exchange ERCP: 07/06/[address] Loya for benign CBD stricture, pancreatic duct stricture and chronic pancreatitis Findings: Prior biliary and pancreatic sphincterotomy appeared open Prior pancreatic sphincterotomy appeared open Partially occluded prior stent removed Chronic pancreatitis, slowly improving stricture, stent replaced Improving distal biliary stricture. Two plastic stents replaced Biliary tree was swept and sludge was removed Repeat ERCP 2-3 months for stent exchange COLONOSCOPY: 02/09/[address] Osullivan for CRC screening Findings: there was 3 5 mm to 12 mm polyps observed in the ascending colon. The 2 polyps removed using cold snare polypectomies. Largest polyp removed using hot snare polypectomy. The polyps were completely excised. One resolution clip was placed to prevent bleeding There were 3 4 mm to 6 mm polyps observed in the transverse colon. Multiple cold snare polypectomies were performed. The polyps were completely excised A few small size internal hemorrhoids were seen in the rectum. The hemorrhoids were not actively bleeding LABS AND STOOL STUDIES: Labs 06/24/2024: Sodium 135, potassium 3.5, BUN 8, creatinine 0.65, GFR > 60 WBC is 13, HGB 13, HCT 37, MCV 88, platelets 283. Total bilirubin 0.6, AST 61, ALT 32, alkaline phosphatase 122, albumin 3.8 Lactic acid 0.7, calcium 8.6, magnesium 1.4, ETOH level 134 IMAGING: HIDA scan 06/24/2024 FINDINGS: There is normal clearance of radiotracer from the blood pool. There is homogeneous tracer uptake by the liver. Activity progresses to the common bile duct by 12 minutes with activity seen in the duodenum by 29 minutes with progressive accumulation and the bowels. The gallbladder is not visualized within the initial 49 minutes of imaging but begins to fill with activity 11 minutes following morphine injection. IMPRESSION: 1. Delayed accumulation of activity in the gallbladder likely due to the dilated state of the gallbladder evident on prior imaging both accumulation of activity in the gallbladder following morphine administration which argues against acute cholecystitis. MRCP 06/24/2024 FINDINGS: ABDOMEN MRI: Size is normal. Linear discoid atelectasis/scarring in the bilateral lower lobes. No pericardial or pleural effusion. Liver, spleen and bilateral adrenal glands are normal. Gallbladder remains mildly dilated to 5 cm maximal diameter. There is however no abnormal wall thickening or pericholecystic fluid or inflammatory stranding to suggest acute cholecystitis. There is prominent peripancreatic edema about the body and tail of the pancreas which has progressed since the prior study consistent with progression of acute interstitial pancreatitis. There swelling and more prominent T2 hyperintense edema at the tail of the pancreas which surrounds a 2.6 x 1.1 cm dumbbell shaped nonenhancing region consistent with necrosis. There are low signal intensity dystrophic calcification at the head of the pancreas which are better appreciated on the prior CT and are consistent with sequela of chronic pancreatitis. There is prominent dilation of the main pancreatic duct in the head and body the pancreas bladder measuring up to 9 mm in maximal diameter. There are also multiple mildly dilated pancreatic ductal side branches. There is a 1.8 x 1.5 x 0.8 cm loculated acute peripancreatic fluid collection situated between the tail of the pancreas and the bifurcation of the celiac axis. Bilateral adrenal glands and kidneys are normal aside from increasing bilateral pararenal stranding likely related to the acute pancreatitis. Visualized portions of bowels are unremarkable with no obstruction. No pathologically enlarged abdominal or upper pelvic lymphadenopathy. Mild lumbar dextrocurvature with moderate spondylosis. T1 hyperintense and fat saturating T9 hemangioma. Chronic mild likely physiologic anterior wedging at T11 and T12. Fibrofatty degenerative endplate changes at a few levels in the lumbar spine most prominent at T12-L1. ABDOMEN MRCP: No intrahepatic biliary ductal dilation. The common hepatic duct is dilated to 8 mm in maximal diameter. There is a low-lying confluence of the common hepatic and cystic ducts which occurs near the ampulla. The short common bile duct measures approximately 5 mm at the confluence of the common hepatic and cystic ducts and tapers distally. There is a 3-4 mm low signal intensity likely gallstone in the common bile duct near the ampulla best appreciated on the axial and sagittal T2-weighted images. IMPRESSION: 1. Interval progression of acute on chronic, now necrotic pancreatitis with 2.6 x 1.1 cm region of necrosis at the tail the pancreas and 1.8 x 1.5 x 0.8 cm acute peripancreatic fluid collection. 2. Dilation the gallbladder and mild dilation the common hepatic duct which could be related to apparent 3-4 mm low signal intensity stone at the distal common bile duct. No intrahepatic biliary ductal dilation and no gallbladder wall thickening or surrounding inflammatory changes to suggest acute cholecystitis. CT abd/pelvis w/contrast 06/23/2024 Impression: Possible calcified stone in the distal common bile duct versus sequelae of chronic pancreatitis. Consider MRCP to further evaluate and better confirmed common duct stone. Probable mild acute pancreatitis. Duct dilatation on an pancreatic duct, which could be related to stone disease versus sequela of chronic pancreatitis. Distended gallbladder with possible mild wall thickening. This may be related to distal common duct stone as noted above. Correlate clinically for acute cholecystitis. Consider HIDA scan or ultrasound as indicated. Chest Xray 06/23/2024: Impression: Normal chest. CT abd/pelivs w/contrst 06/21/2024 Impression: Mild dilatation of the main pancreatic duct may be related to sequela of chronic pancreatitis. No distinct evidence for acute pancreatitis. Distended gallbladder without definite evidence for acute cholecystitis. Review of Systems 2 Constitutional: Constitutional: Reports as per HPI ENT: Reports as per HPI Cardiovascular: Cardiovascular: Reports as per HPI, Denies chest pain and Denies dyspnea Respiratory: Respiratory: Denies cough and Denies dyspnea Gastrointestinal: Gastrointestinal: Reports as per HPI Musculoskeletal: Musculoskeletal: Reports as per HPI Integumentary/Breasts: Skin/Breast: Reports as per HPI Psychiatric: Psychiatric: Reports as per HPI Endocrine: Endocrine: Reports no additional endocrine complaints Hematologic/Lymphatic: Hematologic/Lymphatic: Reports no additional hematologic/lymphatic complaints [facility] Past Medical History Medical History Screening for prostate cancer Elevated PSA JOSE (acute kidney injury) Vomiting, unspecified Viral syndrome Plantar fasciitis of left foot Paresthesia Memory loss Gastroesophageal reflux disease without esophagitis Gastritis and duodenitis Flu-like symptoms Essential hypertension Enthesopathy of elbow Dizziness Diarrhea, unspecified Cough Alcoholism Colon cancer screening Fracture of vertebra due to osteoporosis with routine healing Bilateral hand pain Dyspnea Generalized osteoarthritis of multiple sites Encounter for medication management Counseling on health promotion and disease prevention Inflammatory arthritis (~08/2019) H/O blood clots History of pancreatitis History of pulmonary embolism (~08/2019) JOSE (acute kidney injury) Pneumonia Angioedema (~08/2019) Acute pulmonary embolism Thrombocytopenia (~08/2019) PUD (peptic ulcer disease) History of GI bleed Pancreatitis H/O: HTN (hypertension) Hypercholesteremia GERD (gastroesophageal reflux disease) Surgical History Surgical History History of appendectomy Family History Family History Mother Hypertension Sibling Patient's brother is in good health Father Family history of pancreatic cancer Social History Social History Smoking packs per day: 1.5 Smoking cigarettes per day: 30.0 Years smoked: 35 Smoking pack-years: 52.50 Smoking status: Current every day smoker Tobacco type: cigarettes Second hand tobacco smoke exposure: No Alcohol intake: current Drinks per week: 50 Alcohol use details: SHOT Substance use: current Substance use type: marijuana Other substance usage details: MEDICAL CARD-DAILY FOR BACK PAIN Do You Feel Safe in your Home?: Yes Lack of Transportation: No Lack of Food: Never True Current Housing: I Do Not Have Housing Concerned About Future Housing: No Difficulty Paying Gas/Electric Bills: No Difficulty Paying for Meds: No Currently Unemployed: No Education: Don't Know Difficulty w/ Childcare or Family Care: No Living arrangements: with family Occupation/Education: retired Additional occupation/education comments: chronic pancreatitis Gender identity (if verbalized by the patient): Male Spiritual care concerns: No Meds Home Medications and Allergies Home Medications ?Medication ?Instructions ?Recorded ?Confirmed ?Type gxvckxhm-ycvm-npeuf acid 400 1 tablet PO DAILY 02/03/21 06/23/24 History mcg-lycopene 600 mcg-ginkgo 120 mg tablet fluticasone propionate 50 2 spray intranasal DAILY #16 grams 05/21/22 06/23/24 Rx mcg/actuation nasal spray,suspension (Flonase Allergy Relief) lidocaine 5 % topical patch 1 patch topical DAILY 06/01/22 06/23/24 History melatonin 10 mg capsule 10 mg PO QHS 06/01/22 06/23/24 History sildenafil 100 mg tablet 100 mg PO DAILY PRN sexual 12/12/22 06/23/24 Rx activity #8 tabs ondansetron 4 mg disintegrating 4 mg PO Q8H PRN nausea and 04/25/23 06/23/24 Rx tablet vomiting #30 tabs potassium gluconate 595 mg (99 mg) 595 mg PO DAILY 04/25/23 06/23/24 History tablet psyllium husk 0.4 gram capsule 0.4 g PO DAILY 04/25/23 06/23/24 History (Metamucil) losartan 25 mg tablet 25 mg PO DAILY 06/28/23 06/23/24 History avbeuj-tuwwysrh-fdcjxsv 1 cap PO TID #90 caps 07/13/23 06/23/24 Rx 12,000-38,000-60,000 unit capsule,delayed rel (Creon) tadalafil 20 mg tablet See Rx Instructions .Route 12/06/23 06/23/24 Rx .COMPLEX #8 tabs fenofibrate 160 mg tablet 160 mg PO DAILY #90 tabs 01/23/24 06/23/24 Rx folic acid 1 mg tablet See Rx Instructions .Route 01/23/24 06/23/24 Rx .COMPLEX #90 tabs pantoprazole 40 mg tablet,delayed See Rx Instructions .Route 01/23/24 06/23/24 Rx release .COMPLEX #90 tabs duloxetine 30 mg capsule,delayed 90 mg (3 x 30 mg) PO .COMPLEX #90 04/02/24 06/23/24 Rx release (Cymbalta) caps meloxicam 7.5 mg tablet 7.5 mg PO BID PRN joint pain #60 04/02/24 06/23/24 Rx tabs gabapentin 300 mg capsule 300 mg PO Q8H #270 caps 05/01/24 06/23/24 Rx trazodone 50 mg tablet 100 mg (2 x 50 mg) PO .QHS PRN 05/09/24 06/23/24 Rx insomnia #180 tabs tobramycin 0.3 % eye drops 1 drp LEFT EYE Q4H #5 mL 05/14/24 06/23/24 Rx tizanidine 4 mg tablet See Rx Instructions .Route 05/17/24 06/23/24 Rx .COMPLEX #60 tabs amlodipine 10 mg tablet 10 mg PO DAILY #90 tabs 06/17/24 06/23/24 Rx chlordiazepoxide HCl 25 mg capsule 25 mg PO TID PRN alcohol 06/21/24 06/23/24 Rx withdrawal #15 caps ondansetron 4 mg disintegrating 4 mg PO Q8H PRN nausea and 06/21/24 06/23/24 Rx tablet vomiting #15 tabs Allergies Allergy/AdvReac Type Severity Reaction Status Date / Time amoxicillin Allergy Intermediate rash Verified 06/23/24 07:16 Penicillins Allergy Intermediate Pruritic Verified 06/23/24 07:16 rash Vital Signs Vital Signs - 24 hr 06/23/24 09:00 06/23/24 09:15 06/23/24 09:30 Temperature Pulse Rate 86 86 91 Pulse Rate [Monitor] Respiratory Rate 17 16 22 H Blood Pressure Pulse Oximetry 100 100 98 Oxygen Delivery 06/23/24 09:31 06/23/24 09:58 06/23/24 10:00 Temperature Pulse Rate 85 114 H 94 Pulse Rate [Monitor] Respiratory Rate 18 31 H 17 Blood Pressure 129/85 Pulse Oximetry 98 92 100 Oxygen Delivery 06/23/24 10:15 06/23/24 10:18 06/23/24 10:36 Temperature Pulse Rate 94 95 104 H Pulse Rate [Monitor] Respiratory Rate 22 H 16 14 Blood Pressure 137/97 H Pulse Oximetry 98 100 100 Oxygen Delivery 06/23/24 10:49 06/23/24 11:00 06/23/24 11:01 Temperature Pulse Rate 112 H 109 H 105 H Pulse Rate [Monitor] Respiratory Rate 21 H 25 H 27 H Blood Pressure 143/96 H Pulse Oximetry 99 99 97 Oxygen Delivery 06/23/24 11:53 06/23/24 11:58 06/23/24 12:00 Temperature 98.2 F Pulse Rate 92 Pulse Rate [Monitor] 106 H Respiratory Rate 16 Blood Pressure 131/77 Pulse Oximetry 100 Oxygen Delivery Room Air 06/23/24 12:00 06/23/24 12:10 06/23/24 14:00 Temperature Pulse Rate 92 104 H Pulse Rate [Monitor] 98 Respiratory Rate Blood Pressure Pulse Oximetry Oxygen Delivery 06/23/24 14:56 06/23/24 16:00 06/23/24 16:00 Temperature 98.6 F Pulse Rate 117 H 109 H Pulse Rate [Monitor] 106 H Respiratory Rate 20 Blood Pressure 153/87 H Pulse Oximetry 97 Oxygen Delivery 06/23/24 16:00 06/23/24 16:00 06/23/24 18:00 Temperature Pulse Rate 119 H Pulse Rate [Monitor] 104 H Respiratory Rate Blood Pressure Pulse Oximetry Oxygen Delivery Room Air 06/23/24 19:13 06/23/24 20:00 06/23/24 20:00 Temperature 100.9 F H Pulse Rate 119 H Pulse Rate [Monitor] 118 H Respiratory Rate 18 Blood Pressure 146/83 H Pulse Oximetry 93 Oxygen Delivery Room Air 06/23/24 20:00 06/23/24 20:49 06/23/24 20:54 Temperature 100.9 F H Pulse Rate 121 H Pulse Rate [Monitor] 120 H Respiratory Rate Blood Pressure Pulse Oximetry Oxygen Delivery 06/23/24 21:49 06/23/24 22:00 06/23/24 23:22 Temperature 100.5 F H 99.3 F Pulse Rate 121 H 122 H Pulse Rate [Monitor] Respiratory Rate 20 Blood Pressure 140/84 Pulse Oximetry 95 Oxygen Delivery 06/24/24 00:00 06/24/24 00:00 06/24/24 00:00 Temperature Pulse Rate 115 H Pulse Rate [Monitor] 115 H Respiratory Rate Blood Pressure Pulse Oximetry Oxygen Delivery Room Air 06/24/24 02:00 06/24/24 03:59 06/24/24 04:00 Temperature 100.5 F H Pulse Rate 107 H 106 H Pulse Rate [Monitor] 107 H Respiratory Rate 16 Blood Pressure 143/83 H Pulse Oximetry 97 Oxygen Delivery 06/24/24 04:00 06/24/24 04:00 06/24/24 06:00 Temperature Pulse Rate 107 H 110 H Pulse Rate [Monitor] Respiratory Rate Blood Pressure Pulse Oximetry Oxygen Delivery Room Air 06/24/24 07:46 06/24/24 08:00 Temperature 98.7 F Pulse Rate 112 H Pulse Rate [Monitor] 116 H Respiratory Rate 16 Blood Pressure 126/85 Pulse Oximetry 95 Oxygen Delivery Exam 2 Const: General: cooperative, comfortable, no acute distress and well developed Orientation/consciousness: oriented to person, oriented to place, oriented to time and patient oriented x3 HENMT: Head: normal to inspection, normocephalic and atraumatic Mouth: Yes Normal oral and palatal mucosa present and Yes moist mucous membranes Eyes: General: appearance normal, both eyes and all related structures C onjunctivae: conjunctivae normal Sclera: sclerae normal Pupils: Equal, round and reactive pupils present Neck: Neck: normal visual inspection Chest: Chest palpation & inspection: normal inspection of the chest Resp: Effort & Inspection: normal respiratory effort and able to speak in complete sentences Auscultation: clear to auscultation bilaterally Cardio: Jugular venous distension: no JVD Rate: regular rate Rhythm: r egular rhythm Heart sounds: S1 normal heart sound present and S2 normal heart sound present GI: Inspection: normal to inspection GI Palp: Yes Soft to palpation, Yes Tenderness to palpation present (GI) (epigastric ) and Yes No hepatosplenomegaly present Auscultation: normal bowel sounds Rectal Exam: deferred Skin: General skin exam: normal color and no rashes or lesions noted Neuro: General: oriented to person, oriented to place, oriented to time and patient oriented x3 Cranial nerves: Yes Equal, round and reactive pupils present Speech: normal speech Extrem: General: normal to inspection and no clubbing, cyanosis or edema Psych: Appearance: grossly normal and well kempt Affect: normal affect Results Labs 06/24/24 04:35 06/24/24 04:35 Labs: Short CBC 06/24/24 Range/Units 04:35 WBC 13.4 H (4.5-10.0) K/mm3 Hgb 12.6 L (14.0-18.0) g/dL Hct 37.4 L (42.0-52.0) % Plt Count 283 (150-375) k/mm3 BMP 06/24/24 04:35 Sodium 135 L Potassium 3.5 Chloride 101 Carbon Dioxide 24 BUN 8 L Creatinine 0.65 L Glucose 112 H Calcium 8.6 Cardiac Enzymes 06/23/24 06/23/24 Range/Units 10:11 13:30 Troponin I < 0.012 < 0.012 (0.000-0.034) ng/mL Liver Function 06/24/24 Range/Units 04:35 Total Bilirubin 0.6 (0.2-1.3) mg/dL AST 61 H (17-59) U/L ALT 32 (6-50) U/L Alkaline Phosphatase 122 (38-126) U/L Albumin 3.8 (3.5-5.1) g/dL
--- NOTE | 2024-06-24 09:26 | PC.NURSE ---
Off unit for MRI and Nuclear med scans @ 0815. Appropriate documentation sent with patient.
[2024-06-24] MEDS: MORPHINE SULFATE (*CRX) 2 MG/ML INJ IV PUSH (10:22)
[2024-06-24] MEDS: THIAMINE HCL 200 MG/2 ML VIAL 100 MG IV PUSH (11:10)
[2024-06-24] MEDS: ENOXAPARIN 40 MG/0.4 ML SYRINGE SUB-Q (11:10)
--- NOTE | 2024-06-24 11:15 | PC.NURSE ---
Returned from MRI/Nuclear Med from diagnostics @ 111. Settled into bed and meds given.
[2024-06-24 12:20] LABS: Glucose Point of Care 114 mg/dl (65-105)
[2024-06-24] MEDS: cefTRIAXone 2 GM/NS 100 ML 2 GM/100 ML BAG IVPB (13:32)
--- NOTE | 2024-06-24 14:57 | P.PNIM_ITS ---
Progress Note: A&P Assessment and Plan (1) Chronic pancreatitis: Qualifiers: Pancreatitis type: alcohol induced Qualified Code(s): K86.0 - Alcohol- induced chronic pancreatitis Code(s): K86.1 - Other chronic pancreatitis Status: Acute (2) Alcohol-induced pancreatitis: Qualifiers: Chronicity: acute Acute pancreatitis complication: infected necrosis Qualified Code(s): K85.22 - Alcohol induced acute pancreatitis with infected necrosis Code(s): K85.20 - Alcohol induced acute pancreatitis without necrosis or infection Status: Acute (3) Dilation of biliary tract: Code(s): K83.8 - Other specified diseases of biliary tract Status: Acute Plan Acute on chronic, necrotizing pancreatitis From alcoholism s/p MRCP which showed worsening acute on chronic with necrotizing pancreatitis NPO, IVF, PRN pain control Continue Rocephin and Flagyl Transfer to [facility] per GI recs for higher level of care monitor Distal common bile duct MRCP reviewed Continue transfer to [facility] for higher level of care GI following Distended gall bladder with possible wall thickening HIDA scan done ruled out Acute cholecystitis monitor Alcohol abuse counseled about cessation CIWA protocol monitor Tobacco use Counseled about cessation HTN titrate home meds with clinical course DVT prophylaxis on Sq Lovenox Initiated transfer to [facility] Subjective Date/time seen: 06/24/24 14:57 Interval history: Patient comfortable at bedside However MRCP showed worsening acte on chronic, now with necrotic pancreatitis Transfer to [facility] per GI recs Review of Systems Review of Systems: All other systems were reviewed and negative except as noted in the HPI above Exam Narrative: General: alert and comfortable Eyes: EOMI, PERRLA ENNT External ears normal, Neck is supple, no masses, Respiratory systems: Clear to auscultation Cardiovascular S1, S2, normal rhythm, no murmur, rub, or gallop; no thrill or palpable murmurs on palpation. Gastrointestinal: soft, epigastric tenderness, and non-distended abdomen with no masses; BS present Skin: no rash, lesions, ulcerations, subcutaneous nodules or induration Musculoskeletal: no abnormality and no tenderness, normal ROM Neurologic: Alert and oriented x3, non focal Objective Data Vital Signs Vital Signs: Vital Signs - 24 hr 06/23/24 16:00 06/23/24 16:00 06/23/24 16:00 Temperature 98.6 F Pulse Rate 117 H 109 H Pulse Rate [Monitor] 104 H Respiratory Rate 20 Blood Pressure 153/87 H Pulse Oximetry 97 Oxygen Delivery 06/23/24 16:00 06/23/24 18:00 06/23/24 19:13 Temperature Pulse Rate 119 H Pulse Rate [Monitor] 118 H Respiratory Rate Blood Pressure Pulse Oximetry Oxygen Delivery Room Air 06/23/24 20:00 06/23/24 20:00 06/23/24 20:00 Temperature 100.9 F H Pulse Rate 119 H 121 H Pulse Rate [Monitor] Respiratory Rate 18 Blood Pressure 146/83 H Pulse Oximetry 93 Oxygen Delivery Room Air 06/23/24 20:49 06/23/24 20:54 06/23/24 21:49 Temperature 100.9 F H 100.5 F H Pulse Rate Pulse Rate [Monitor] 120 H Respiratory Rate Blood Pressure Pulse Oximetry Oxygen Delivery 06/23/24 22:00 06/23/24 23:22 06/24/24 00:00 Temperature 99.3 F Pulse Rate 121 H 122 H Pulse Rate [Monitor] Respiratory Rate 20 Blood Pressure 140/84 Pulse Oximetry 95 Oxygen Delivery Room Air 06/24/24 00:00 06/24/24 00:00 06/24/24 02:00 Temperature Pulse Rate 115 H 107 H Pulse Rate [Monitor] 115 H Respiratory Rate Blood Pressure Pulse Oximetry Oxygen Delivery 06/24/24 03:59 06/24/24 04:00 06/24/24 04:00 Temperature 100.5 F H Pulse Rate 106 H Pulse Rate [Monitor] 107 H Respiratory Rate 16 Blood Pressure 143/83 H Pulse Oximetry 97 Oxygen Delivery Room Air 06/24/24 04:00 06/24/24 06:00 06/24/24 07:46 Temperature 98.7 F Pulse Rate 107 H 110 H 112 H Pulse Rate [Monitor] Respiratory Rate 16 Blood Pressure 126/85 Pulse Oximetry 95 Oxygen Delivery 06/24/24 08:00 06/24/24 08:00 06/24/24 11:30 Temperature Pulse Rate 116 H Pulse Rate [Monitor] 116 H 109 H Respiratory Rate Blood Pressure Pulse Oximetry Oxygen Delivery 06/24/24 11:50 Temperature 98.5 F Pulse Rate 110 H Pulse Rate [Monitor] Respiratory Rate 18 Blood Pressure 137/90 Pulse Oximetry 96 Oxygen Delivery Intake/Output Intake/Output: Intake & Output 06/21/24 06/22/24 06/23/24/27/25 23:59 23:59 23:59 23:59 Intake Total 3903.3 1325.0 Output Total 950 700 Balance 2953.3 625.0 Meds/Results Medications: Active Medications Generic Name Dose Route Start Last Admin Trade Name Freq PRN Reason Stop Dose Admin Acetaminophen 650 mg 06/23/24 20:25 06/23/24 20:49 Acetaminophen 325 Mg Tablet PO 650 mg Q4H PRN Administration Pain or Fever Chlordiazepoxide HCl 50 mg 06/23/24 12:00 06/24/24 11:10 Chlordiazepoxide (*Crx) 25 Mg Capsule PO 50 mg Q6HR DIAMOND Administration Enoxaparin Sodium 40 mg 06/24/24 09:00 06/24/24 11:10 Enoxaparin 40 Mg/0.4 Ml Syringe SUB-Q 40 mg DAILY DIAMOND Administration Hydromorphone HCl 0.5 mg 06/23/24 09:39 06/24/24 11:11 Hydromorphone Hcl Inj (*Crx) 1 Mg/Ml Syr IV PUSH 0.5 mg Q4H PRN Administration Pain Rated 7-10 Sodium Chloride 1,000 mls @ 125 mls/hr 06/23/24 12:55 06/24/24 14:16 Normal Saline Iv IV CONT 100 mls/hr .Q8H DIAMOND Administration Metronidazole 500 mg in 100 mls @ 100 mls/hr 06/23/24 14:00 06/24/24 14:16 Flagyl 500 Mg/Iso Soln 100 Ml IVPB 100 mls/hr Q8H DIAMOND Administration Ceftriaxone Sodium 2 gm in 100 mls @ 200 mls/hr 06/24/24 14:00 06/24/24 13:32 Rocephin 2 Gm/Ns 100 Ml IVPB 200 mls/hr Q24H DIAMOND Administration Lorazepam 2 mg 06/23/24 09:30 06/24/24 02:40 Lorazepam Inj (*Crx) 2 Mg/Ml Vial IV PUSH 2 mg Q2H PRN Administration CIWA > 15 Lorazepam 2 mg 06/23/24 09:30 06/24/24 11:13 Lorazepam Inj (*Crx) 2 Mg/Ml Vial IV PUSH 2 mg Q4H PRN Administration CIWA 8-15 Lorazepam 2 mg 06/23/24 12:53 Lorazepam Inj (*Crx) 2 Mg/Ml Vial IV PUSH Q2H PRN CIWA > 15 Ondansetron HCl 4 mg 06/23/24 09:30 06/24/24 06:12 Ondansetron Inj 4 Mg/2 Ml Vial IV PUSH 4 mg Q6H PRN Administration Nausea And Vomiting Thiamine HCl 100 mg 06/24/24 09:00 06/24/24 11:10 Thiamine Hcl 200 Mg/2 Ml Vial IV PUSH 100 mg QAM DIAMOND Administration Radiology Results: ITS Impressions Chest X-Ray 06/23/24 08:35 Impression: Normal chest. Abdomen/Pelvis CT 06/23/24 08:37 Impression: Possible calcified stone in the distal common bile duct versus sequelae of chronic pancreatitis. Consider MRCP to further evaluate and better confirmed common duct stone. Probable mild acute pancreatitis. Duct dilatation on an pancreatic duct, which could be related to stone disease versus sequela of chronic pancreatitis. Distended gallbladder with possible mild wall thickening. This may be related to distal common duct stone as noted above. Correlate clinically for acute cholecystitis. Consider HIDA scan or ultrasound as indicated. MRCP 06/24/24 09:29 IMPRESSION: 1. Interval progression of acute on chronic, now necrotic pancreatitis with 2.6 x 1.1 cm region of necrosis at the tail the pancreas and 1.8 x 1.5 x 0.8 cm acute peripancreatic fluid collection. 2. Dilation the gallbladder and mild dilation the common hepatic duct which could be related to apparent 3-4 mm low signal intensity stone at the distal common bile duct. No intrahepatic biliary ductal dilation and no gallbladder wall thickening or surrounding inflammatory changes to suggest acute cholecystitis. Hepatobiliary Scan Nuclear Medicine 06/24/24 11:15 IMPRESSION: 1. Delayed accumulation of activity in the gallbladder likely due to the dilated state of the gallbladder evident on prior imaging both accumulation of activity in the gallbladder following morphine administration which argues against acute cholecystitis. Labs Labs: Laboratory Results - last 24 hr 06/23/24 06/23/24 06/24/24 17:55 23:05 04:35 WBC 13.4 H RBC 4.23 L Hgb 12.6 L Hct 37.4 L MCV 88.4 MCH 29.8 MCHC 33.7 RDW 13.8 Plt Count 283 MPV 9.8 Immature Gran % (Auto) 0.2 Neut % (Auto) 85.1 H Lymph % (Auto) 6.6 L [place] % (Auto) 7.8 Eos % (Auto) 0.1 Baso % (Auto) 0.2 Lymph # (Auto) 0.89 L [place] # (Auto) 1.1 H Eos # (Auto) 0.0 Baso # (Auto) 0.0 Abs Immat Gran (auto) 0.03 Absolute Neuts (auto) 11.4 H Absolute Nucleated RBC 0.000 Nucleated RBC % 0.0 Sodium 135 L Potassium 3.5 Chloride 101 Carbon Dioxide 24 Anion Gap 10 BUN 8 L Creatinine 0.65 L Estim Creat Clear Calc 119 Estimated GFR > 60 Glucose 112 H POC Capillary Glucose 130 H 120 H Lactic Acid 0.7 Calcium 8.6 Magnesium 1.4 L Total Bilirubin 0.6 AST 61 H ALT 32 Alkaline Phosphatase 122 Total Protein 7.0 Albumin 3.8 06/24/24 11:51 WBC RBC Hgb Hct MCV MCH MCHC RDW Plt Count MPV Immature Gran % (Auto) Neut % (Auto) Lymph % (Auto) [place] % (Auto) Eos % (Auto) Baso % (Auto) Lymph # (Auto) [place] # (Auto) Eos # (Auto) Baso # (Auto) Abs Immat Gran (auto) Absolute Neuts (auto) Absolute Nucleated RBC Nucleated RBC % Sodium Potassium Chloride Carbon Dioxide Anion Gap BUN Creatinine Estim Creat Clear Calc Estimated GFR Glucose POC Capillary Glucose 114 H Lactic Acid Calcium Magnesium Total Bilirubin AST ALT Alkaline Phosphatase Total Protein Albumin
[2024-06-24 16:26] LABS: Glucose Point of Care 125 mg/dl (65-105)
--- NOTE | 2024-06-24 16:39 | PC.NURSE ---
Accepted to [facility]. Serena from [facility] transfer line updated on latest vitals and IV access. Awaiting bed assignment.
[2024-06-24 18:08] LABS: Glucose Point of Care 110 mg/dl (65-105)
[2024-06-24] MEDS: SODIUM CHLORIDE 0.9% IV 1,000 ML 150 ML IV CONT (23:34)
[2024-06-25] VITALS (19 sets, daily range): BP systolic 123–146; BP diastolic 77–95; PULSE 90–118; RESP 16–20; TEMP 36.3–37.1; O2SAT 95–98; BMI 24.6
[2024-06-25] MEDS: LORazepam INJ (*CRX) 2 MG/ML VIAL IV PUSH ×5 (00:36→20:58)
[2024-06-25 00:49] LABS: Glucose Point of Care 123 mg/dl (65-105)
[2024-06-25] MEDS: HYDROmorphone HCL INJ (*CRX) 1 MG/ML SYR 0.5 MG IV PUSH ×4 (03:18→21:00)
[2024-06-25 04:46] LABS: Basophils Percent Auto 0.1 % (0.2-1.2); Eosinophils Absolute Auto 0.1 K/mm3 (0-0.3); Eosinophils Percent Auto 0.5 % (0-4.4); Hematocrit 32.9 % (42.0-52.0); Hemoglobin 10.9 g/dL (14.0-18.0); Immature Granulocyte Absolute 0.07 K/mm3 (0.00-0.031); Immature Granulocyte Percent A 0.5 % (0-0.5); Lymphocytes Absolute Auto 1.28 K/mm3 (0.9-3.2); Lymphocytes Percent Auto 9.6 % (18.3-44.2); Mean Corpuscular HGB Conc 33.1 g/dl (32-36); Mean Corpuscular Hemoglobin 30.4 pg (26-34); Mean Corpuscular Volume 91.9 fl (80-100); Mean Platelet Volume 9.7 fl (7.4-10.4); Monocytes Absolute Auto 1.1 K/mm3 (0.1-0.6); Monocytes Percent Auto 7.9 % (2.6-8.5); Neutrophils Absolute Auto 10.9 K/mm3 (1.3-6.7); Neutrophils Percent Auto 81.4 % (45.5-73.1); Platelet Count Result 266 k/mm3 (150-375); Red Blood Count 3.58 M/mm3 (4.6-6.20); Red Cell Distribution Width 13.8 % (11.5-14.5); White Blood Count 13.3 K/mm3 (4.5-10.0)
[2024-06-25 05:01] LABS: Alanine Aminotransferase 24 U/L (6-50); Albumin Level 3.4 g/dL (3.5-5.1); Alkaline Phosphatase 111 U/L (38-126); Anion Gap 8 mmol/L (4-12); Aspartate Amino Transferase 26 U/L (17-59); Bilirubin,Total 0.7 mg/dL (0.2-1.3); Blood Urea Nitrogen 9 mg/dL (9-20); Calcium 8.6 mg/dL (8.4-10.2); Carbon Dioxide 24 mmol/L (22-30); Chloride 100 mmol/L (98-107); Estimated CRCL calculation 110 ml/min; Estimated Glomerular Filt Rate > 60; Glucose 96 mg/dL (65-110); Potassium 3.5 mmol/L (3.4-5.0); Sodium 132 mmol/L (137-145)
[2024-06-25] MEDS: metroNIDAZOLE 500 MG/ISO 100ML 500 MG/100 ML BAG 100 MG IVPB ×3 (05:59→21:00)
[2024-06-25] MEDS: chlordiazePOXIDE (*CRX) 25 MG CAPSULE 50 MG PO ×3 (06:00→17:20)
[2024-06-25] MEDS: SODIUM CHLORIDE 0.9% IV 1,000 ML 150 ML IV CONT ×3 (06:00→20:11)
--- NOTE | 2024-06-25 07:56 | PM.IMPN ---
Progress Note: A&P Assessment and Plan (1) Chronic pancreatitis: Qualifiers: Pancreatitis type: alcohol induced Qualified Code(s): K86.0 - Alcohol-induced chronic pancreatitis Code(s): K86.1 - Other chronic pancreatitis Status: Acute (2) Alcohol-induced pancreatitis: Qualifiers: Acute pancreatitis complication: infected necrosis Chronicity: acute Qualified Code(s): K85.22 - Alcohol induced acute pancreatitis with infected necrosis Code(s): K85.20 - Alcohol induced acute pancreatitis without necrosis or infection Status: Acute (3) Dilation of biliary tract: Code(s): K83.8 - Other specified diseases of biliary tract Status: Acute Plan Acute on chronic, necrotizing pancreatitis From alcoholism s/p MRCP which showed worsening acute on chronic with necrotizing pancreatitis NPO, IVF, PRN pain control Continue Rocephin and Flagyl Transfer to [facility] per GI recs for higher level of care monitor Distal common bile duct MRCP reviewed Continue transfer to [facility] for higher level of care GI following Distended gall bladder with possible wall thickening HIDA scan done ruled out Acute cholecystitis monitor Alcohol abuse counseled about cessation CIWA protocol monitor Tobacco use Counseled about cessation HTN titrate home meds with clinical course DVT prophylaxis on Sq Lovenox Initiated transfer to [facility] Subjective Date/time seen: 06/25/24 07:56 Interval history: Pending transferred to [facility] for acute on chronic pancreatitis.Patiet had liquid diet this morning and complains of mild abdominal pain Review of Systems Review of Systems: All other systems were reviewed and negative except as noted in the HPI above Exam Narrative: General: alert and comfortable Eyes: EOMI, PERRLA ENNT External ears normal, Neck is supple, no masses, Respiratory systems: Clear to auscultation Cardiovascular S1, S2, normal rhythm, no murmur, rub, or gallop; no thrill or palpable murmurs on palpation. Gastrointestinal: soft, epigastric tenderness, and non-distended abdomen with no masses; BS present Skin: no rash, lesions, ulcerations, subcutaneous nodules or induration Musculoskeletal: no abnormality and no tenderness, normal ROM Neurologic: Alert and oriented x3, non focal Objective Data Vital Signs Vital Signs: Vital Signs - 24 hr 06/24/24 08:00 06/24/24 08:00 06/24/24 10:00 Temperature Pulse Rate 116 H 101 H Pulse Rate [Bilateral Radial] Pulse Rate [Monitor] 116 H Respiratory Rate Blood Pressure Pulse Oximetry Oxygen Delivery 06/24/24 11:30 06/24/24 11:50 06/24/24 12:00 Temperature 98.5 F Pulse Rate 110 H Pulse Rate [Bilateral Radial] Pulse Rate [Monitor] 109 H Respiratory Rate 18 Blood Pressure 137/90 Pulse Oximetry 96 Oxygen Delivery Room Air 06/24/24 12:00 06/24/24 14:00 06/24/24 15:39 Temperature Pulse Rate 104 H 98 Pulse Rate [Bilateral Radial] 114 H Pulse Rate [Monitor] 114 H Respiratory Rate Blood Pressure Pulse Oximetry Oxygen Delivery 06/24/24 16:00 06/24/24 16:00 06/24/24 16:00 Temperature 97.9 F Pulse Rate 101 H 101 H Pulse Rate [Bilateral Radial] Pulse Rate [Monitor] Respiratory Rate 14 Blood Pressure 135/87 Pulse Oximetry 98 Oxygen Delivery Room Air 06/24/24 18:00 06/24/24 20:00 06/24/24 20:00 Temperature 98.0 F Pulse Rate 97 118 H Pulse Rate [Bilateral Radial] Pulse Rate [Monitor] Respiratory Rate 18 Blood Pressure 132/81 Pulse Oximetry 100 Oxygen Delivery Room Air 06/24/24 20:00 06/24/24 22:00 06/25/24 00:00 Temperature Pulse Rate 111 H 104 H Pulse Rate [Bilateral Radial] Pulse Rate [Monitor] Respiratory Rate Blood Pressure Pulse Oximetry Oxygen Delivery Room Air 06/25/24 00:00 06/25/24 00:00 06/25/24 02:00 Temperature 97.3 F L Pulse Rate 110 H 112 H 118 H Pulse Rate [Bilateral Radial] Pulse Rate [Monitor] Respiratory Rate 16 Blood Pressure 129/81 Pulse Oximetry 96 Oxygen Delivery 06/25/24 04:00 06/25/24 04:00 06/25/24 04:00 Temperature 98.7 F Pulse Rate 107 H 102 H Pulse Rate [Bilateral Radial] Pulse Rate [Monitor] Respiratory Rate 18 Blood Pressure 123/77 Pulse Oximetry 97 Oxygen Delivery Room Air 06/25/24 06:00 Temperature Pulse Rate 106 H Pulse Rate [Bilateral Radial] Pulse Rate [Monitor] Respiratory Rate Blood Pressure Pulse Oximetry Oxygen Delivery Intake/Output Intake/Output: Intake & Output 06/22/24 06/23/24 06/24/24 06/25/24 23:59 23:59 23:59 23:59 Intake Total 3903.3 2525.0 2425 Output Total 950 1575 525 Balance 2953.3 950.0 1900 Meds/Results Medications: Active Medications Generic Name Dose Route Start Last Admin Trade Name Freq PRN Reason Stop Dose Admin Acetaminophen 650 mg 06/23/24 20:25 06/23/24 20:49 Acetaminophen 325 Mg Tablet PO 650 mg Q4H PRN Administration Pain or Fever Chlordiazepoxide HCl 50 mg 06/23/24 12:00 06/25/24 06:00 Chlordiazepoxide (*Crx) 25 Mg Capsule PO 50 mg Q6HR DIAMOND Administration Enoxaparin Sodium 40 mg 06/24/24 09:00 06/24/24 11:10 Enoxaparin 40 Mg/0.4 Ml Syringe SUB-Q 40 mg DAILY DIAMOND Administration Hydromorphone HCl 0.5 mg 06/23/24 09:39 06/25/24 03:18 Hydromorphone Hcl Inj (*Crx) 1 Mg/Ml Syr IV PUSH 0.5 mg Q4H PRN Administration Pain Rated 7-10 Sodium Chloride 1,000 mls @ 150 mls/hr 06/23/24 12:55 06/25/24 06:00 Normal Saline Iv IV CONT 150 mls/hr .Q6H40M DIAMOND Administration Metronidazole 500 mg in 100 mls @ 100 mls/hr 06/23/24 14:00 06/25/24 05:59 Flagyl 500 Mg/Iso Soln 100 Ml IVPB 100 mls/hr Q8H DIAMOND Administration Ceftriaxone Sodium 2 gm in 100 mls @ 200 mls/hr 06/24/24 14:00 06/24/24 13:32 Rocephin 2 Gm/Ns 100 Ml IVPB 200 mls/hr Q24H DIAMOND Administration Lorazepam 2 mg 06/23/24 09:30 06/25/24 06:01 Lorazepam Inj (*Crx) 2 Mg/Ml Vial IV PUSH 2 mg Q2H PRN Administration CIWA > 15 Lorazepam 2 mg 06/23/24 09:30 06/25/24 00:36 Lorazepam Inj (*Crx) 2 Mg/Ml Vial IV PUSH 2 mg Q4H PRN Administration CIWA 8-15 Lorazepam 2 mg 06/23/24 12:53 Lorazepam Inj (*Crx) 2 Mg/Ml Vial IV PUSH Q2H PRN CIWA > 15 Ondansetron HCl 4 mg 06/23/24 09:30 06/24/24 06:12 Ondansetron Inj 4 Mg/2 Ml Vial IV PUSH 4 mg Q6H PRN Administration Nausea And Vomiting Thiamine HCl 100 mg 06/24/24 09:00 06/24/24 11:10 Thiamine Hcl 200 Mg/2 Ml Vial IV PUSH 100 mg QAM DIAMOND Administration Radiology Results: ITS Impressions Chest X-Ray 06/23/24 08:35 Impression: Normal chest. Abdomen/Pelvis CT 06/23/24 08:37 Impression: Possible calcified stone in the distal common bile duct versus sequelae of chronic pancreatitis. Consider MRCP to further evaluate and better confirmed common duct stone. Probable mild acute pancreatitis. Duct dilatation on an pancreatic duct, which could be related to stone disease versus sequela of chronic pancreatitis. Distended gallbladder with possible mild wall thickening. This may be related to distal common duct stone as noted above. Correlate clinically for acute cholecystitis. Consider HIDA scan or ultrasound as indicated. MRCP 06/24/24 09:29 IMPRESSION: 1. Interval progression of acute on chronic, now necrotic pancreatitis with 2.6 x 1.1 cm region of necrosis at the tail the pancreas and 1.8 x 1.5 x 0.8 cm acute peripancreatic fluid collection. 2. Dilation the gallbladder and mild dilation the common hepatic duct which could be related to apparent 3-4 mm low signal intensity stone at the distal common bile duct. No intrahepatic biliary ductal dilation and no gallbladder wall thickening or surrounding inflammatory changes to suggest acute cholecystitis. Hepatobiliary Scan Nuclear Medicine 06/24/24 11:15 IMPRESSION: 1. Delayed accumulation of activity in the gallbladder likely due to the dilated state of the gallbladder evident on prior imaging both accumulation of activity in the gallbladder following morphine administration which argues against acute cholecystitis. Labs Labs: Laboratory Results - last 24 hr 06/24/24 06/24/24 06/24/24 11:51 16:12 18:04 WBC RBC Hgb Hct MCV MCH MCHC RDW Plt Count MPV Immature Gran % (Auto) Neut % (Auto) Lymph % (Auto) [place] % (Auto) Eos % (Auto) Baso % (Auto) Lymph # (Auto) [place] # (Auto) Eos # (Auto) Baso # (Auto) Abs Immat Gran (auto) Absolute Neuts (auto) Absolute Nucleated RBC Nucleated RBC % Sodium Potassium Chloride Carbon Dioxide Anion Gap BUN Creatinine Estim Creat Clear Calc Estimated GFR Glucose POC Capillary Glucose 114 H 125 H 110 H Lactic Acid Calcium Total Bilirubin AST ALT Alkaline Phosphatase Total Protein Albumin 06/25/24 06/25/24 00:42 04:23 WBC 13.3 H RBC 3.58 L Hgb 10.9 L Hct 32.9 L MCV 91.9 MCH 30.4 MCHC 33.1 RDW 13.8 Plt Count 266 MPV 9.7 Immature Gran % (Auto) 0.5 Neut % (Auto) 81.4 H Lymph % (Auto) 9.6 L [place] % (Auto) 7.9 Eos % (Auto) 0.5 Baso % (Auto) 0.1 L Lymph # (Auto) 1.28 [place] # (Auto) 1.1 H Eos # (Auto) 0.1 Baso # (Auto) 0.0 Abs Immat Gran (auto) 0.07 H Absolute Neuts (auto) 10.9 H Absolute Nucleated RBC 0.000 Nucleated RBC % 0.0 Sodium 132 L Potassium 3.5 Chloride 100 Carbon Dioxide 24 Anion Gap 8 BUN 9 Creatinine 0.71 Estim Creat Clear Calc 110 Estimated GFR > 60 Glucose 96 POC Capillary Glucose 123 H Lactic Acid 1.0 Calcium 8.6 Total Bilirubin 0.7 AST 26 ALT 24 Alkaline Phosphatase 111 Total Protein 6.0 L Albumin 3.4 L Hospitalist MIPS Advance Care Plan I have confirmed that the patient's Advanced Care Plan is present, code status is documented, or surrogate decision maker is listed in patient medical record.: Yes Medication Reconciliation I have utilized all available resources to obtain, update and review the patients current medications (includes all prescriptions, OTC, herbals, cannabis, and nutritional supplements).: Yes
[2024-06-25] MEDS: THIAMINE HCL 200 MG/2 ML VIAL 100 MG IV PUSH (09:45)
[2024-06-25] MEDS: ENOXAPARIN 40 MG/0.4 ML SYRINGE SUB-Q (09:45)
[2024-06-25] MEDS: NICOTINE (*PBKC) 7 MG PATCH 1 PATCH TRANSDERM (10:32)
--- NOTE | 2024-06-25 11:00 | PC.NURSE ---
Updated DALE Russell from [facility] transfer center. No bed available at this time.
[2024-06-25 11:53] LABS: Glucose Point of Care 151 mg/dl (65-105)
[2024-06-25] MEDS: cefTRIAXone 2 GM/NS 100 ML 2 GM/100 ML BAG IVPB (13:31)
--- NOTE | 2024-06-25 13:49 | WPDGIPROGNO ---
Progress Note: A&P Assessment and Plan (1) Necrotizing pancreatitis: Code(s): K85.91 - Acute pancreatitis with uninfected necrosis, unspecified Status: Acute Assessment and Plan: mrcp reviewed, necrotizing pancreatitis with also fluid collection patient had multiple ERCP at another facility, given complex case and new findings in pancreas I recommend transfer to his GI physician and evaluate if would benefit from endoscopic intervention he should quit drinking alcohol altogether risk for alcohol withdrawal, he is more lethargic, sitter at bedside he is still in pain normal liver enzymes (2) Alcohol-induced pancreatitis: Qualifiers: Chronicity: acute Acute pancreatitis complication: infected necrosis Qualified Code(s): K85.22 - Alcohol induced acute pancreatitis with infected necrosis Code(s): K85.20 - Alcohol induced acute pancreatitis without necrosis or infection Status: Acute (3) Dilation of biliary tract: Code(s): K83.8 - Other specified diseases of biliary tract Status: Acute (4) Alcohol abuse: Code(s): F10.10 - Alcohol abuse, uncomplicated Status: Acute (5) Alcohol withdrawal: Code(s): F10.939 - Alcohol use, unspecified with withdrawal, unspecified Status: Acute Subjective Date/time seen: 06/25/24 13:49 Interval history: it seems confused, sitter at bedside still with upper abdominal pain Review of Systems Review of Systems: All systems reviewed & are unremarkable except as noted in HPI and below Exam Const: Other: awake but drowsy HENMT: Face/Nose/Sinus: Normal nares present Eyes: Sclera: sclerae normal Neck: Neck: supple Resp: Effort & Inspection: normal respiratory effort Cardio: Rate: regular rate GI: Inspection: distended GI Palp: Yes Soft to palpation and Yes Tenderness to palpation present (GI) (upper abdominal pain, no rebound) Skin: General skin exam: normal color Neuro: Speech: normal speech Other: confused Extrem: General: normal to inspection Psych: Affect: Anxious affect present Objective Data Vital Signs Vital Signs: Vital Signs - 24 hr 06/24/24 14:00 06/24/24 15:39 06/24/24 16:00 Temperature 97.9 F Pulse Rate 98 101 H Pulse Rate [Bilateral Radial] 114 H Pulse Rate [Monitor] 114 H Respiratory Rate 14 Blood Pressure 135/87 Pulse Oximetry 98 Oxygen Delivery 06/24/24 16:00 06/24/24 16:00 06/24/24 18:00 Temperature Pulse Rate 101 H 97 Pulse Rate [Bilateral Radial] Pulse Rate [Monitor] Respiratory Rate Blood Pressure Pulse Oximetry Oxygen Delivery Room Air 06/24/24 20:00 06/24/24 20:00 06/24/24 20:00 Temperature 98.0 F Pulse Rate 118 H 111 H Pulse Rate [Bilateral Radial] Pulse Rate [Monitor] Respiratory Rate 18 Blood Pressure 132/81 Pulse Oximetry 100 Oxygen Delivery Room Air 06/24/24 22:00 06/25/24 00:00 06/25/24 00:00 Temperature 97.3 F L Pulse Rate 104 H 110 H Pulse Rate [Bilateral Radial] Pulse Rate [Monitor] Respiratory Rate 16 Blood Pressure 129/81 Pulse Oximetry 96 Oxygen Delivery Room Air 06/25/24 00:00 06/25/24 02:00 06/25/24 04:00 Temperature Pulse Rate 112 H 118 H Pulse Rate [Bilateral Radial] Pulse Rate [Monitor] Respiratory Rate Blood Pressure Pulse Oximetry Oxygen Delivery Room Air 06/25/24 04:00 06/25/24 04:00 06/25/24 06:00 Temperature 98.7 F Pulse Rate 107 H 102 H 106 H Pulse Rate [Bilateral Radial] Pulse Rate [Monitor] Respiratory Rate 18 Blood Pressure 123/77 Pulse Oximetry 97 Oxygen Delivery 06/25/24 07:25 06/25/24 08:00 06/25/24 08:00 Temperature 98.6 F Pulse Rate 93 Pulse Rate [Bilateral Radial] Pulse Rate [Monitor] 114 H Respiratory Rate 20 Blood Pressure 133/84 Pulse Oximetry 95 Oxygen Delivery Room Air 06/25/24 08:00 06/25/24 10:00 06/25/24 11:53 Temperature 98 F Pulse Rate 91 102 H 99 Pulse Rate [Bilateral Radial] Pulse Rate [Monitor] Respiratory Rate 20 Blood Pressure 127/78 Pulse Oximetry 97 Oxygen Delivery 06/25/24 11:59 06/25/24 12:00 Temperature Pulse Rate Pulse Rate [Bilateral Radial] Pulse Rate [Monitor] 93 Respiratory Rate Blood Pressure Pulse Oximetry Oxygen Delivery Room Air Intake/Output Intake/Output: Intake & Output 06/22/24 06/23/24 06/24/24 06/25/24 23:59 23:59 23:59 23:59 Intake Total 3903.3 2625.0 3645 Output Total 950 1575 1025 Balance 2953.3 1050.0 2620 Meds/Results Medications: Active Medications Generic Name Dose Route Start Last Admin Trade Name Freq PRN Reason Stop Dose Admin Acetaminophen 650 mg 06/23/24 20:25 06/23/24 20:49 Acetaminophen 325 Mg Tablet PO 650 mg Q4H PRN Administration Pain or Fever Chlordiazepoxide HCl 50 mg 06/23/24 12:00 06/25/24 11:43 Chlordiazepoxide (*Crx) 25 Mg Capsule PO 50 mg Q6HR DIAMOND Administration Enoxaparin Sodium 40 mg 06/24/24 09:00 06/25/24 09:45 Enoxaparin 40 Mg/0.4 Ml Syringe SUB-Q 40 mg DAILY DIAMOND Administration Hydromorphone HCl 0.5 mg 06/23/24 09:39 06/25/24 10:32 Hydromorphone Hcl Inj (*Crx) 1 Mg/Ml Syr IV PUSH 0.5 mg Q4H PRN Administration Pain Rated 7-10 Sodium Chloride 1,000 mls @ 150 mls/hr 06/23/24 12:55 06/25/24 13:30 Normal Saline Iv IV CONT 150 mls/hr .Q6H40M DIAMOND Administration Metronidazole 500 mg in 100 mls @ 100 mls/hr 06/23/24 14:00 06/25/24 13:31 Flagyl 500 Mg/Iso Soln 100 Ml IVPB 100 mls/hr Q8H DIAMOND Administration Ceftriaxone Sodium 2 gm in 100 mls @ 200 mls/hr 06/24/24 14:00 06/25/24 13:31 Rocephin 2 Gm/Ns 100 Ml IVPB 200 mls/hr Q24H DIAMOND Administration Lorazepam 2 mg 06/23/24 09:30 06/25/24 06:01 Lorazepam Inj (*Crx) 2 Mg/Ml Vial IV PUSH 2 mg Q2H PRN Administration CIWA > 15 Lorazepam 2 mg 06/23/24 09:30 06/25/24 00:36 Lorazepam Inj (*Crx) 2 Mg/Ml Vial IV PUSH 2 mg Q4H PRN Administration CIWA 8-15 Lorazepam 2 mg 06/23/24 12:53 Lorazepam Inj (*Crx) 2 Mg/Ml Vial IV PUSH Q2H PRN CIWA > 15 Nicotine 1 patch 06/25/24 10:20 06/25/24 10:32 Nicotine (*Pbkc) 7 Mg Patch TRANSDERM 1 patch DAILY DIAMOND Administration Ondansetron HCl 4 mg 06/23/24 09:30 06/24/24 06:12 Ondansetron Inj 4 Mg/2 Ml Vial IV PUSH 4 mg Q6H PRN Administration Nausea And Vomiting Thiamine HCl 100 mg 06/24/24 09:00 06/25/24 09:45 Thiamine Hcl 200 Mg/2 Ml Vial IV PUSH 100 mg QAM DIAMOND Administration Radiology Results: ITS Impressions Chest X-Ray 06/23/24 08:35 Impression: Normal chest. Abdomen/Pelvis CT 06/23/24 08:37 Impression: Possible calcified stone in the distal common bile duct versus sequelae of chronic pancreatitis. Consider MRCP to further evaluate and better confirmed common duct stone. Probable mild acute pancreatitis. Duct dilatation on an pancreatic duct, which could be related to stone disease versus sequela of chronic pancreatitis. Distended gallbladder with possible mild wall thickening. This may be related to distal common duct stone as noted above. Correlate clinically for acute cholecystitis. Consider HIDA scan or ultrasound as indicated. MRCP 06/24/24 09:29 IMPRESSION: 1. Interval progression of acute on chronic, now necrotic pancreatitis with 2.6 x 1.1 cm region of necrosis at the tail the pancreas and 1.8 x 1.5 x 0.8 cm acute peripancreatic fluid collection. 2. Dilation the gallbladder and mild dilation the common hepatic duct which could be related to apparent 3-4 mm low signal intensity stone at the distal common bile duct. No intrahepatic biliary ductal dilation and no gallbladder wall thickening or surrounding inflammatory changes to suggest acute cholecystitis. Hepatobiliary Scan Nuclear Medicine 06/24/24 11:15 IMPRESSION: 1. Delayed accumulation of activity in the gallbladder likely due to the dilated state of the gallbladder evident on prior imaging both accumulation of activity in the gallbladder following morphine administration which argues against acute cholecystitis. Labs Labs: Laboratory Results - last 24 hr 06/24/24 06/24/24 06/25/24 16:12 18:04 00:42 WBC RBC Hgb Hct MCV MCH MCHC RDW Plt Count MPV Immature Gran % (Auto) Neut % (Auto) Lymph % (Auto) [place] % (Auto) Eos % (Auto) Baso % (Auto) Lymph # (Auto) [place] # (Auto) Eos # (Auto) Baso # (Auto) Abs Immat Gran (auto) Absolute Neuts (auto) Absolute Nucleated RBC Nucleated RBC % Sodium Potassium Chloride Carbon Dioxide Anion Gap BUN Creatinine Estim Creat Clear Calc Estimated GFR Glucose POC Capillary Glucose 125 H 110 H 123 H Lactic Acid Calcium Total Bilirubin AST ALT Alkaline Phosphatase Total Protein Albumin 06/25/24 06/25/24 04:23 11:49 WBC 13.3 H RBC 3.58 L Hgb 10.9 L Hct 32.9 L MCV 91.9 MCH 30.4 MCHC 33.1 RDW 13.8 Plt Count 266 MPV 9.7 Immature Gran % (Auto) 0.5 Neut % (Auto) 81.4 H Lymph % (Auto) 9.6 L [place] % (Auto) 7.9 Eos % (Auto) 0.5 Baso % (Auto) 0.1 L Lymph # (Auto) 1.28 [place] # (Auto) 1.1 H Eos # (Auto) 0.1 Baso # (Auto) 0.0 Abs Immat Gran (auto) 0.07 H Absolute Neuts (auto) 10.9 H Absolute Nucleated RBC 0.000 Nucleated RBC % 0.0 Sodium 132 L Potassium 3.5 Chloride 100 Carbon Dioxide 24 Anion Gap 8 BUN 9 Creatinine 0.71 Estim Creat Clear Calc 110 Estimated GFR > 60 Glucose 96 POC Capillary Glucose 151 H Lactic Acid 1.0 Calcium 8.6 Total Bilirubin 0.7 AST 26 ALT 24 Alkaline Phosphatase 111 Total Protein 6.0 L Albumin 3.4 L
[2024-06-25 18:44] LABS: Glucose Point of Care 150 mg/dl (65-105)
--- NOTE | 2024-06-25 23:43 | P.PNCROSS_ITS ---
Event Note Event Note Event Note: I was called to patient's room after patient threatened with leaving against me dical advise. Upon assessing patient's decision making capacity it was determined that patient has decision-making capacity. Patient stated that he just did not want to be here
--- NOTE | 2024-06-26 00:15 | PC.NURSE ---
This RN was notified by the PCT that the patient was requesting to leave AMA. This RN called the provider to come to bedside, and she verified she would come up. This RN called the son to see if he could come pickup the patient, which he was unable to due to not having a vehicle. The son was upset that the patient was requesting to leave AMA and requested to speak to the patient. This RN, Landon HUNTER, and Dr. Meredith reported to bedside. Patient was able to answer all orientation questions appropriately, and was educated on the risks of leaving. The provider deemed the patient was able to make his own decision to leave. The patient was still requesting to leave, so the AMA paperwork was signed. The IV and telemetry were removed. The patient put on clothing and was placed into a wheelchair. The patient stated I do not have a ride home, I am going to walk to the [facility] in [place]. The patient was wheeled to the ED parking lot and was let out of the wheelchair. While attempting to stand from the wheelchair the patient dropped all of his belongings and fell forward but was caught by faculty before falling. counter supervisor met this RN, PCT, and 3 security guards in the parking lot. Isaías, house father, was concerned and stated we cannot let the patient walk, because if he gets hurt it can fall back onto us. This RN then returned the patient to the building and contacted the son. The patient was left in the family services room in the ED with security waiting for the son.
== END 2024-06-25 23:40 | disposition left against medical advice (07) | DRG 440 ==
LOC: ANHED 07:34 → ANHIMU 18:44
PROVIDERS: Internal Medicine; Student in an Organized Health Care Education/Training Program; Admitting Provider Internal Medicine; Emergency Provider Emergency Medicine; PCP Nurse Practitioner; Visit Provider Internal Medicine
DX: K85.22 Alcohol induced acute pancreatitis with infected necrosis (principal); K86.0 Alcohol-induced chronic pancreatitis; F10.20 Alcohol dependence, uncomplicated; K83.8 Other specified diseases of biliary tract; K21.9 Gastro-esophageal reflux disease without esophagitis; I10 Essential (primary) hypertension; E78.00 Pure hypercholesterolemia, unspecified; M15.9 Polyosteoarthritis, unspecified; R41.3 Other amnesia; F17.210 Nicotine dependence, cigarettes, uncomplicated; F12.90 Cannabis use, unspecified, uncomplicated; Z87.11 Personal history of peptic ulcer disease; Z86.711 Personal history of pulmonary embolism
CPT/HCPCS: 36415; 71045; 74177; 74183; 76376; 78227; 80053; 80307; 81001; 82077; 82948; 83605; 83690; 83735; 84484; 85025; 85610; 85730; 87040; 93005; 96361; 96365; 96374; 96375; 96376; 99284; 99285; A9270; A9537; A9577; J0696; J1171; J1650; J1836; J1956; J2060; J2270; J2405; J2765; J3411; J3480; J7030; J7040; J7120; Q9967

== ENCOUNTER 2024-07-02 01:48 | Emergency (ER) | payer MEDICARE, SELFPAY ==
[2024-07-02 01:56] VITALS: BP 131/105; PULSE 93; RESP 19; TEMP 36.6; O2SAT 97
[2024-07-02 02:58] LABS: Basophils Absolute Auto 0.1 K/mm3 (0.0-0.1); Eosinophils Absolute Auto 0.1 K/mm3 (0-0.3); Eosinophils Percent Auto 1.2 % (0-4.4); Hematocrit 38.9 % (42.0-52.0); Hemoglobin 12.9 g/dL (14.0-18.0); Immature Granulocyte Absolute 0.05 K/mm3 (0.00-0.031); Immature Granulocyte Percent A 0.7 % (0-0.5); Lymphocytes Percent Auto 29.3 % (18.3-44.2); Mean Corpuscular HGB Conc 33.2 g/dl (32-36); Mean Corpuscular Hemoglobin 30.1 pg (26-34); Mean Corpuscular Volume 90.7 fl (80-100); Mean Platelet Volume 8.5 fl (7.4-10.4); Monocytes Absolute Auto 0.7 K/mm3 (0.1-0.6); Monocytes Percent Auto 10.8 % (2.6-8.5); Neutrophils Absolute Auto 3.9 K/mm3 (1.3-6.7); Platelet Count Result 703 k/mm3 (150-375); Red Blood Count 4.29 M/mm3 (4.6-6.20); Red Cell Distribution Width 15.2 % (11.5-14.5); White Blood Count 6.8 K/mm3 (4.5-10.0)
[2024-07-02 03:10] LABS: Alanine Aminotransferase 24 U/L (6-50); Albumin Level 4.4 g/dL (3.5-5.1); Alkaline Phosphatase 103 U/L (38-126); Anion Gap 17 mmol/L (4-12); Aspartate Amino Transferase 56 U/L (17-59); Bilirubin,Total 0.4 mg/dL (0.2-1.3); Blood Urea Nitrogen 10 mg/dL (9-20); Calcium 9.2 mg/dL (8.4-10.2); Carbon Dioxide 23 mmol/L (22-30); Chloride 111 mmol/L (98-107); Estimated CRCL calculation 111 ml/min; Estimated Glomerular Filt Rate > 60; Glucose 112 mg/dL (65-110); Potassium 3.6 mmol/L (3.4-5.0); Sodium 151 mmol/L (137-145)
--- NOTE | 2024-07-02 03:21 | ED.GENADULT ---
HPI - General Adult General Chief complaint: Alcohol Stated complaint: to drunk to stand up Time Seen by Provider: 07/02/24 02:35 History of Present Illness HPI narrative: The is a 58-year-old gentleman presents emergency department with chief complaint of alcohol intoxication. Patient was a local drinking establishment and proceeded to drink a large amount of alcohol and was unable to get up off of the chair at the [place] police were called the EMS were called and the patient was transported to the emergency department the patient has no complaints other than he is drunk and wants to go home Related Data Home Medications ?Medication ?Instructions ?Recorded ?Confirmed ?Last Taken ?Type mvejnqhy-zjhi-zukri acid 400 1 tablet PO DAILY 02/03/21 06/23/24 11/18/21 History mcg-lycopene 600 mcg-ginkgo 120 mg tablet lidocaine 5 % topical patch 1 patch topical DAILY 06/01/22 06/23/24 Unknown History melatonin 10 mg capsule 10 mg PO QHS 06/01/22 06/23/24 Unknown History potassium gluconate 595 mg (99 mg) 595 mg PO DAILY 04/25/23 06/23/24 Unknown History tablet psyllium husk 0.4 gram capsule 0.4 g PO DAILY 04/25/23 06/23/24 Unknown History (Metamucil) losartan 25 mg tablet 25 mg PO DAILY 06/28/23 06/23/24 Unknown History Allergies Allergy/AdvReac Type Severity Reaction Status Date / Time amoxicillin Allergy Intermediate rash Verified 06/23/24 07:16 Penicillins Allergy Intermediate Pruritic Verified 06/23/24 07:16 rash Review of Systems Review of Systems: A 10 system review of systems was completed on the patient and is negative except for what is stated in the HPI. Nursing and ancillary documentation was reviewed. [facility] Past Medical History Medical History Alcohol withdrawal Necrotizing pancreatitis Screening for prostate cancer Elevated PSA JOSE (acute kidney injury) Vomiting, unspecified Viral syndrome Plantar fasciitis of left foot Paresthesia Memory loss Gastroesophageal reflux disease without esophagitis Gastritis and duodenitis Flu-like symptoms Essential hypertension Enthesopathy of elbow Dizziness Diarrhea, unspecified Cough Alcoholism Colon cancer screening Fracture of vertebra due to osteoporosis with routine healing Bilateral hand pain Dyspnea Generalized osteoarthritis of multiple sites Encounter for medication management Counseling on health promotion and disease prevention Inflammatory arthritis (~08/2019) H/O blood clots History of pancreatitis History of pulmonary embolism (~08/2019) JOSE (acute kidney injury) Pneumonia Angioedema (~08/2019) Acute pulmonary embolism Thrombocytopenia (~08/2019) PUD (peptic ulcer disease) History of GI bleed Pancreatitis H/O: HTN (hypertension) Hypercholesteremia GERD (gastroesophageal reflux disease) Surgical History Surgical History History of appendectomy Family History Family History Mother Hypertension Sibling Patient's brother is in good health Father Family history of pancreatic cancer Social History Social History Smoking packs per day: 1.5 Smoking cigarettes per day: 30.0 Years smoked: 35 Smoking pack-years: 52.50 Smoking status: Current every day smoker Tobacco type: cigarettes Second hand tobacco smoke exposure: No Alcohol intake: current Drinks per week: 50 Alcohol use details: SHOT Substance use: current Substance use type: marijuana Other substance usage details: MEDICAL CARD-DAILY FOR BACK PAIN Do You Feel Safe in your Home?: Yes Lack of Transportation: No Lack of Food: Never True Current Housing: I Do Not Have Housing Concerned About Future Housing: No Difficulty Paying Gas/Electric Bills: No Difficulty Paying for Meds: No Currently Unemployed: No Education: Don't Know Difficulty w/ Childcare or Family Care: No Living arrangements: with family Occupation/Education: retired Additional occupation/education comments: chronic pancreatitis Gender identity (if verbalized by the patient): Male Spiritual care concerns: No Exam Narrative: GENERAL: Well-appearing, well-nourished, and in no acute distress. HEAD: Normocephalic, atraumatic. EYES: PERRLA and EOMI. ENT: Nares clear, no rhinorrhea or epistaxis. Mucous membranes moist. NECK: Supple. CHEST: Clear to auscultation. No respiratory distress. HEART: Regular rate and rhythm. No murmur heard. Normal peripheral pulses. ABDOMEN: Soft, nontender, nondistended, normal active bowel sounds. EXTREMITIES: Normal range of motion. No edema. SKIN: Warm, dry, no rash. NEURO: No focal deficits. Alert and oriented x3. PSYCH: Normal mood and affect. Course Vital Signs Vital signs: Vital Signs Temperature 36.6 C 07/02/24 01:56 Pulse Rate 93 07/02/24 01:56 Respiratory Rate 19 07/02/24 01:56 Blood Pressure 131/105 H 07/02/24 01:56 Pulse Oximetry 97 07/02/24 01:56 Oxygen Delivery Room Air 07/02/24 01:56 Temperature 36.6 C 07/02/24 01:56 Pulse Rate 93 07/02/24 01:56 Respiratory Rate 19 07/02/24 01:56 Blood Pressure 131/105 H 07/02/24 01:56 Pulse Oximetry 97 07/02/24 01:56 Oxygen Delivery Room Air 07/02/24 01:56 Medical Decision Making MDM Narrative Medical decision making narrative: Differential diagnosis includes alcohol intoxication, Patient was alert oriented able ambulate with a steady gait as he proceeded to walk out of the emergency department and polite is IV Vital Signs Vital Signs: Vital Signs Temperature 36.6 C 07/02/24 01:56 Pulse Rate 93 07/02/24 01:56 Respiratory Rate 19 07/02/24 01:56 Blood Pressure 131/105 H 07/02/24 01:56 Pulse Oximetry 97 07/02/24 01:56 Oxygen Delivery Room Air 07/02/24 01:56 Temperature 36.6 C 07/02/24 01:56 Pulse Rate 93 07/02/24 01:56 Respiratory Rate 19 07/02/24 01:56 Blood Pressure 131/105 H 07/02/24 01:56 Pulse Oximetry 97 07/02/24 01:56 Oxygen Delivery Room Air 07/02/24 01:56 Lab Data 07/02/24 02:53 07/02/24 02:53 Labs: Lab Results 07/02/24 Range/Units 02:53 WBC 6.8 (4.5-10.0) K/mm3 RBC 4.29 L (4.6-6.20) M/mm3 Hgb 12.9 L (14.0-18.0) g/dL Hct 38.9 L (42.0-52.0) % MCV 90.7 (80-100) fl MCH 30.1 (26-34) pg MCHC 33.2 (32-36) g/dl RDW 15.2 H (11.5-14.5) % Plt Count 703 H D (150-375) k/mm3 MPV 8.5 (7.4-10.4) fl Immature Gran % (Auto) 0.7 H (0-0.5) % Neut % (Auto) 57.0 (45.5-73.1) % Lymph % (Auto) 29.3 (18.3-44.2) % [place] % (Auto) 10.8 H (2.6-8.5) % Eos % (Auto) 1.2 (0-4.4) % Baso % (Auto) 1.0 (0.2-1.2) % Lymph # (Auto) 2.00 (0.9-3.2) K/mm3 [place] # (Auto) 0.7 H (0.1-0.6) K/mm3 Eos # (Auto) 0.1 (0-0.3) K/mm3 Baso # (Auto) 0.1 (0.0-0.1) K/mm3 Abs Immat Gran (auto) 0.05 H (0.00-0.031) K/mm3 Absolute Neuts (auto) 3.9 (1.3-6.7) K/mm3 Absolute Nucleated RBC 0.000 (0.0-0.012) K/mm3 Nucleated RBC % 0.0 (0.0-0.2) % Sodium 151 H (137-145) mmol/L Potassium 3.6 (3.4-5.0) mmol/L Chloride 111 H (98-107) mmol/L Carbon Dioxide 23 (22-30) mmol/L Anion Gap 17 H (4-12) mmol/L BUN 10 (9-20) mg/dL Creatinine 0.70 (0.7-1.3) mg/dL Estim Creat Clear Calc 111 ml/min Estimated GFR > 60 (59 - ) Glucose 112 H (65-110) mg/dL Calcium 9.2 (8.4-10.2) mg/dL Total Bilirubin 0.4 (0.2-1.3) mg/dL AST 56 (17-59) U/L ALT 24 (6-50) U/L Alkaline Phosphatase 103 (38-126) U/L Total Protein 8.0 (6.3-8.2) g/dL Albumin 4.4 (3.5-5.1) g/dL Ethyl Alcohol Pending Discharge Plan Discharge Clinical Impression: Alcohol intoxication Patient Disposition: Elopement After Seen by Prov Condition: Stable Patient Language: [place] Citizen Prescriptions: No Action fluticasone propionate [Flonase Allergy Relief] 50 mcg/actuation spray,suspension 2 spray intranasal DAILY Qty: 16 0RF Rx Instructions: administer into each nostril fenofibrate 160 mg tablet 160 mg PO DAILY Qty: 90 1RF folic acid 1 mg tablet See Rx Instructions .ROUTE .COMPLEX Qty: 90 1RF Dose Instruction: TAKE 1 TABLET BY MOUTH DAILY Rx Instructions: TAKE 1 TABLET BY MOUTH DAILY pantoprazole 40 mg tablet,delayed release (DR/EC) See Rx Instructions .ROUTE .COMPLEX Qty: 90 1RF Dose Instruction: TAKE 1 TABLET BY MOUTH EVERY MORNING Rx Instructions: TAKE 1 TABLET BY MOUTH EVERY MORNING meloxicam 7.5 mg tablet 7.5 mg PO BID PRN (Reason: joint pain) Qty: 60 5RF duloxetine [Cymbalta] 30 mg capsule,delayed release(DR/EC) 90 mg PO .COMPLEX Qty: 90 5RF Rx Instructions: 90 mg orally Take 2 capsules in AM and then 1 capsule in the evening.; melatonin 10 mg capsule 10 mg PO QHS lidocaine 5 % adhesive patch,medicated 1 patch topical DAILY Patient Comments: On right shoulder psyllium husk [Metamucil] 0.4 gram capsule 0.4 g PO DAILY potassium gluconate 595 mg (99 mg) tablet 595 mg PO DAILY ondansetron 4 mg tablet,disintegrating 4 mg PO Q8H PRN (Reason: nausea and vomiting) Qty: 30 0RF losartan 25 mg tablet 25 mg PO DAILY tobramycin 0.3 % drops 1 drp LEFT EYE Q4H Qty: 5 0RF ondansetron 4 mg tablet,disintegrating 4 mg PO Q8H PRN (Reason: nausea and vomiting) Qty: 15 0RF chlordiazepoxide HCl 25 mg capsule 25 mg PO TID PRN (Reason: alcohol withdrawal) Qty: 15 0RF dh-odin-awszd-lycopene-ginkgo 400-600-120 mcg-mcg-mg Tablet 1 tablet PO DAILY sildenafil 100 mg tablet 100 mg PO DAILY PRN (Reason: sexual activity) Qty: 8 3RF Rx Instructions: administer 30 minutes to 4 hours before activity Creon 12,000-38,000 -60,000 unit capsule,delayed release(DR/EC) 1 cap PO TID Qty: 90 5RF Rx Instructions: administer with meals and/or snacks tadalafil 20 mg tablet See Rx Instructions .ROUTE .COMPLEX Qty: 8 4RF Dose Instruction: TAKE 1 TABLET BY MOUTH DAILY SEXUAL ACTIVITY AND 30 MINUTES BEFORE SEXUAL ACTIVITY NEEDED. DO NOT USE MORE THAN 1 DOSE PER 24 HOURS Rx Instructions: TAKE 1 TABLET BY MOUTH DAILY SEXUAL ACTIVITY AND 30 MINUTES BEFORE SEXUAL ACTIVITY NEEDED. DO NOT USE MORE THAN 1 DOSE PER 24 HOURS gabapentin 300 mg capsule 300 mg PO Q8H Qty: 270 1RF trazodone 50 mg tablet 100 mg PO .QHS PRN (Reason: insomnia) Qty: 180 1RF tizanidine 4 mg tablet See Rx Instructions .ROUTE .COMPLEX Qty: 60 2RF Dose Instruction: TAKE 1 TO 2 TABLETS BY MOUTH EVERY NIGHT AT BEDTIME NEEDED FOR MUSCLE SPASMS Rx Instructions: TAKE 1 TO 2 TABLETS BY MOUTH EVERY NIGHT AT BEDTIME NEEDED FOR MUSCLE SPASMS amlodipine 10 mg tablet 10 mg PO DAILY Qty: 90 1RF Follow-up/Referrals: Ronnell Escobar APRN [Primary Care Provider] -
--- NOTE | 2024-07-02 03:22 | PC.NURSE ---
Another nurse happened to look down the hughes and found the patient out of the department through the EMS doors. Patient was oriented and adamant that he was leaving. Arms were checked to make sure he did not have an IV, which he did not, IV catheter found on counter in room. Patient would not come back inside. Had a steady gait and was oriented x4 in parking lot.
[2024-07-02 03:33] LABS: Ethanol 324 mg/dL (<10)
--- OUTSIDE RECORDS SUMMARY | 2024-07-02 03:47 | XMS_ITS | Encounter Summary ---
Author Organization [facility] Address [address] [place] [address]. [place], [place] [id number] [place] [id number] Care Team Providers Care Muff Winder Name Role Phone Lamberto Barker MD Primary Care Provider Encounter Details Date Type Department Care Team (Late st Contact Info) Description 01/05/2021 Hospital Follow-up Call [facility] [place] [address] Heather Adames, RN Social History Tobacco Use Types Packs/Day [...] move on to questions 3-9 2 12/25/2020 [facility] - Occupational Stress [...] place to sleep or slept in a custodial (including now)? No 12/25/2020 Sex and Gender [...] 4:17 PM CDT Chelsey Mcdermott RN Active documented as of this encounter Mental Status * Because of a physical, mental, or emotional condition, do you have serious difficulty concentrating, remembering, or making decisions? Answer Entry Date Author Status No 12/29/2020 4:17 PM CDT Chelsey Mcdermott RN Active documented in this encounter Plan of Treatment Not on file documented as of this encounter Goals Goal [...] documented as of this encounter Care Teams Muff Winder Relationship Specialty Start Date End Date Lamberto Barker MD [address] [place] [address] [place] [address] PCP - General INTERNAL MEDICINE 05/08/19 documented as of this encounter
--- OUTSIDE RECORDS SUMMARY | 2024-07-02 03:47 | XMS_ITS | Encounter Summary ---
Author Organization [facility] Address [address] [place] [address]. [place], [place] [address] [place] [address] Care Team Providers Care Pe Manager Name Role Phone Lamberto Barker MD Primary Care Provider [phone] Encounter Details Date Type Department Care Team (Late st Contact Info) Description 11/07/2022 MYOMO Message Enc [facility] on [address] [address] [place], [facility] Provider Echocardiogram Social History Tobacco Use Types [...] often do you attend chur ch or jew services? Never 12/25/2020 Do you belong to any clubs o r organizations such as confucianism groups, unions, fraternal or athletic groups, or [...] move on to questions 3-9 2 12/25/2020 [facility] - Occupational Stress Questionnaire Answer Date [...] place to sleep or slept in a penitentiary (including now)? 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 Answer Date of Assessment Author Status No 06/20/2021 1:29 AM RADIOISOTOPE TECHNOLOGIST Activ e * Do you have serious [...] 1:29 AM Keri Whaley RN Active documented as of this encounter [...] documented as of this encounter Care Teams Pe Manager Relationship Specialty Start Date End Date Lamberto Barker MD [address] [place] [address] PCP - General INTERNAL MEDICINE 05/08/19 documented as of this encounter
--- OUTSIDE RECORDS SUMMARY | 2024-07-02 03:47 | XMS_ITS | Encounter Summary ---
Author Organization [facility] Address [address] [place] [address]. [place], [place] [address] [place] [address] Care Team Providers Care Primer Charger Name Role Phone Lamberto Barker MD Primary Care Provider [phone] Encounter Details Date Type Department Care Team (Late st Contact Info) Description 10/21/2022 Local Voice Media Message Enc [facility] [address] [address] Mychart, [facility] Provider Stress test Social History Tobacco Use [...] How often do you attend chur or jewish services? Never 12/25/2020 Do you belong to any clubs o r organizations such as mandaeism groups, unions, fraternal or athletic groups, or [...] move on to questions 3-9 2 12/25/2020 [facility] - Occupational Stress Questionnaire Answer Date [...] slept in a retirement (including now)? No 12/25/2020 Sex and Gender [...] Assessment Author Status No 06/20/2021 1:29 AM INFORMATION TECHNOLOGY ADVISOR Activ e * RETIRED Are you blind or do you have serious difficulty seeing, even when wearing glasses? Answer Date of Assessment Author Status No 06/20/2021 1:29 AM INFORMATION TECHNOLOGY ADVISOR Activ e * Do you have serious [...] documented as of this encounter Care Teams Primer Charger Relationship Specialty Start Date End Date Lamberto Barker MD [address] [place] [address] PCP - General INTERNAL MEDICINE 05/08/19 documented as of this encounter
--- OUTSIDE RECORDS SUMMARY | 2024-07-02 03:47 | XMS_ITS | Clinical Summary ---
Author Organization [facility] Address [address] [place] [address]. [place], [place] [address] [place] [address] Care Team Providers Care Cna Caregiver Name Role Phone Lamberto Barker MD Primary Care Provider [phone] Allergies Active Allergy Reactions Criticality Noted Date [...] by mouth daily. 10/18/19 23 Active CREON 22699-52485 units CAPSULE ENTERIC COATED PARTICLES Take 1 [...] no ischemic changes. He reports hx of SD in the past, unclear circumstances. He had an exercise stress test in spring at an outside facility that he says was normal. Cont ASA. Pancreatic pseudocyst ([facility]) 07/26/2021 Severe sepsis ([facility]) 07/08/2021 Overview (11/04/2022): Last Assessment & Plan: [...] Alcohol dependence with unsp ecified alcohol-induced disorder ([facility]) 06/25/2021 Overview (11/04/2022): Last Assessment & Plan: [...] has AA resources for discharge. Acute pancreatitis ([facility]) 06/20/2021 Pancreatitis ([facility]) 05/08/2019 Hypertension Tobacco abuse Resolved Problems Problem Noted Date Diagnosed Date Resolved Date Acute pancreatitis ([facility]) 12/28/2020 06/01/2021 Hypokalemia 06/20/2020 12/25/2020 Acute pancreatitis ([facility]) 06/19/2020 12/25/2020 Necrotizing pancreatitis ([facility]) 10/21/2019 12/25/2020 Other constipation 10/21/2019 Immunizations Name [...] often do you attend chur ch or restorationism services? Never 12/25/2020 Do you belong to any clubs o r organizations such as sabianism groups, unions, fraternal or athletic groups, or [...] move on to questions 3-9 2 12/25/2020 [facility] of Occupat ional Health [...] in a senior living (including now)? No 12/25/2020 Sex and Gender [...] 12/20/2023 10:55 AM CDT Plan of Treatment Health Maintenance Due Date Last Done Comments Colorectal Cancer Screening Colonoscopy (10 Years) 1967 Annual Physical 10/16/1970 Pneumococcal Vaccine: Pediatrics (0 to 5 Years) and At-Risk Patients (6 to 64 Years) (1 of 2 - PCV) 10/16/1973 Hepatitis C 10/16/1985 Hepatitis B Vaccines (1 of 3 - 19+ 3-dose series) 10/16/1986 DTaP, Tdap and Td Vaccines ( 1 - Tdap) 07/02/1998 07/01/1998 Zoster Vaccines (1 of 2) 10/16/2017 COVID-19 Vaccine (3 - 2023-2 5 season) 2024 08/18/2020, 07/28/2020 Influenza Adult (#1) 2024 03/08/2021, 03/03/2019, 02/05/2018 PHQ-2 (Physician [place]) 05/29/2024 Colorectal Cancer Screening FIT/FOBT (1 Year) [...] alcohol intake Lifestyle No Nancy Matthews RN Procedures Procedure Name Priority Date/Time Associated Diagnosis Comments OCCULT BLOOD, FECES Routine 09/15/2019 4 :49 PM CDT from Last 3 Months or Most Recently Relevant to Health Maintenance Results * OCCULT BLOOD, FECES (09/15/2019 4:49 PM CDT) OCCULT BLOOD FECAL NEGATIVE 09/15/2019 5:56 PM CDT [facility] STOOL SPECIMEN / Unknown 09/15/2019 4:49 PM CDT us González Morataya PA-C BODY FLUIDS AND STOOLS ORDERAB LES Final Result [facility] [address] [place] [address], from Last 3 Months or Most Recently Relevant to Health Maintenance [place] [address] [place] [address] Advance Directives * Full Code (Latest Code [...] 11:31 PM 12/26/2020 7:51 PM Care Teams Cna Caregiver Relationship Specialty Start Date End Date Lamberto Barker MD [address] [place] [address] PCP - General INTERNAL MEDICINE 05/08/19
== END 2024-07-02 03:48 | disposition left against medical advice (07) ==
LOC: ANHED 03:45
PROVIDERS: Emergency Provider Emergency Medicine; PCP Nurse Practitioner
DX: F10.129 Alcohol abuse with intoxication, unspecified (principal); F17.210 Nicotine dependence, cigarettes, uncomplicated; K21.9 Gastro-esophageal reflux disease without esophagitis; I10 Essential (primary) hypertension; M19.90 Unspecified osteoarthritis, unspecified site; E78.5 Hyperlipidemia, unspecified
CPT/HCPCS: 36415; 80053; 82077; 85025; 96365; 99284

== ENCOUNTER 2024-07-22 12:33 | Emergency (ER) | payer MEDICARE, SELFPAY ==
[2024-07-22 12:41] VITALS: BP 118/76; PULSE 88; RESP 20; TEMP 36.6; O2SAT 99
--- NOTE | 2024-07-22 13:12 | ED_ITS ---
HPI - General Adult General Chief complaint: Alcohol Stated complaint: ETOH Time Seen by Provider: 07/22/24 12:45 History of Present Illness HPI narrative: Patient 58-year-old gentleman who presents emergency department with chief complaint of alcohol intoxication. Patient has prior history of alcoholism and has been in multiple emergency departments over the last several days rarely the patient called EMS today patient currently has no complaints other than Related Data Home Medications ?Medication ?Instructions ?Recorded ?Confirmed ?Last Taken ?Type ehccdadb-wqqy-ksigl acid 400 1 tablet PO DAILY 02/03/21 06/23/24 11/18/21 History mcg-lycopene 600 mcg-ginkgo 120 mg tablet lidocaine 5 % topical patch 1 patch topical DAILY 06/01/22 06/23/24 Unknown History melatonin 10 mg capsule 10 mg PO QHS 06/01/22 06/23/24 Unknown History potassium gluconate 595 mg (99 mg) 595 mg PO DAILY 04/25/23 06/23/24 Unknown History tablet psyllium husk 0.4 gram capsule 0.4 g PO DAILY 04/25/23 06/23/24 Unknown History (Metamucil) losartan 25 mg tablet 25 mg PO DAILY 06/28/23 06/23/24 Unknown History Allergies Allergy/AdvReac Type Severity Reaction Status Date / Time amoxicillin Allergy Intermediate rash Verified 06/23/24 07:16 Penicillins Allergy Intermediate Pruritic Verified 06/23/24 07:16 rash Review of Systems 2 Review of Systems: A 10 system review of systems was completed on the patient and is negative except for what is stated in the HPI. Nursing and ancillary documentation was reviewed. [facility] Past Medical History Medical History Alcohol withdrawal Necrotizing pancreatitis Screening for prostate cancer Elevated PSA JOSE (acute kidney injury) Vomiting, unspecified Viral syndrome Plantar fasciitis of left foot Paresthesia Memory loss Gastroesophageal reflux disease without esophagitis Gastritis and duodenitis Flu-like symptoms Essential hypertension Enthesopathy of elbow Dizziness Diarrhea, unspecified Cough Alcoholism Colon cancer screening Fracture of vertebra due to osteoporosis with routine healing Bilateral hand pain Dyspnea Generalized osteoarthritis of multiple sites Encounter for medication management Counseling on health promotion and disease prevention Inflammatory arthritis (~08/2019) H/O blood clots History of pancreatitis History of pulmonary embolism (~08/2019) JOSE (acute kidney injury) Pneumonia Angioedema (~08/2019) Acute pulmonary embolism Thrombocytopenia (~08/2019) PUD (peptic ulcer disease) History of GI bleed Pancreatitis H/O: HTN (hypertension) Hypercholesteremia GERD (gastroesophageal reflux disease) Surgical History Surgical History History of appendectomy Family History Family History Mother Hypertension Sibling Patient's brother is in good health Father Family history of pancreatic cancer Social History Social History Smoking packs per day: 1.5 Smoking cigarettes per day: 30.0 Years smoked: 35 Smoking pack-years: 52.50 Smoking status: Current every day smoker Tobacco type: cigarettes Second hand tobacco smoke exposure: No Alcohol intake: current Drinks per week: 50 Alcohol use details: SHOT Substance use: current Substance use type: marijuana Other substance usage details: MEDICAL CARD-DAILY FOR BACK PAIN Do You Feel Safe in your Home?: Yes Lack of Transportation: No Lack of Food: Never True Current Housing: I Do Not Have Housing Concerned About Future Housing: No Difficulty Paying Gas/Electric Bills: No Difficulty Paying for Meds: No Currently Unemployed: No Education: Don't Know Difficulty w/ Childcare or Family Care: No Living arrangements: with family Occupation/Education: retired Additional occupation/education comments: chronic pancreatitis Gender identity (if verbalized by the patient): Male Spiritual care concerns: No Exam 2 Narrative: GENERAL: Well-appearing, well-nourished, and in no acute distress. HEAD: Normocephalic, atraumatic. EYES: PERRLA and EOMI. ENT: Nares clear, no rhinorrhea or epistaxis. Mucous membranes moist. NECK: Supple. CHEST: Clear to auscultation. No respiratory distress. HEART: Regular rate and rhythm. No murmur heard. Normal peripheral pulses. ABDOMEN: Soft, nontender, nondistended, normal active bowel sounds. EXTREMITIES: Normal range of motion. No edema. SKIN: Warm, dry, no rash. NEURO: No focal deficits. Alert and oriented x3. PSYCH: Normal mood and affect. Course Vital Signs Vital signs: Vital Signs Temperature 36.6 C 07/22/24 12:41 Pulse Rate 88 07/22/24 12:41 Respiratory Rate 20 07/22/24 12:41 Blood Pressure 118/76 07/22/24 12:41 Pulse Oximetry 99 07/22/24 12:41 Oxygen Delivery Room Air 07/22/24 12:41 Temperature 36.6 C 07/22/24 12:41 Pulse Rate 76 07/22/24 14:44 Respiratory Rate 20 07/22/24 14:44 Blood Pressure 110/78 07/22/24 14:44 Pulse Oximetry 100 07/22/24 14:44 Oxygen Delivery Room Air 07/22/24 12:41 Medical Decision Making MDM Narrative Medical decision making narrative: Differential diagnosis includes alcohol intoxication, electrolyte abnormality Patient's blood alcohol level is 449 The patient was observed in the emergency department patient is now able ambulate in a steady gait the patient will over back home Patient showing no signs of acute intoxication at this point Vital Signs Vital Signs: Vital Signs Temperature 36.6 C 07/22/24 12:41 Pulse Rate 88 07/22/24 12:41 Respiratory Rate 20 07/22/24 12:41 Blood Pressure 118/76 07/22/24 12:41 Pulse Oximetry 99 07/22/24 12:41 Oxygen Delivery Room Air 07/22/24 12:41 Temperature 36.6 C 07/22/24 12:41 Pulse Rate 76 07/22/24 14:44 Respiratory Rate 20 07/22/24 14:44 Blood Pressure 110/78 07/22/24 14:44 Pulse Oximetry 100 07/22/24 14:44 Oxygen Delivery Room Air 07/22/24 12:41 Lab Data 07/22/24 13:11 07/22/24 13:11 Labs: Lab Results 07/22/24 07/22/24 Range/Units 13:10 13:11 WBC 5.1 (4.5-10.0) K/mm3 RBC 4.05 L (4.6-6.20) M/mm3 Hgb 12.4 L (14.0-18.0) g/dL Hct 36.9 L (42.0-52.0) % MCV 91.1 (80-100) fl MCH 30.6 (26-34) pg MCHC 33.6 (32-36) g/dl RDW 16.2 H (11.5-14.5) % Plt Count 421 H (150-375) k/mm3 MPV 8.9 (7.4-10.4) fl Immature Gran % (Auto) 0.4 (0-0.5) % Neut % (Auto) 49.0 (45.5-73.1) % Lymph % (Auto) 31.4 (18.3-44.2) % Villalba % (Auto) 16.6 H (2.6-8.5) % Eos % (Auto) 0.8 (0-4.4) % Baso % (Auto) 1.8 H (0.2-1.2) % Lymph # (Auto) 1.59 (0.9-3.2) K/mm3 Villalba # (Auto) 0.8 H (0.1-0.6) K/mm3 Eos # (Auto) 0.0 (0-0.3) K/mm3 Baso # (Auto) 0.1 (0.0-0.1) K/mm3 Abs Immat Gran (auto) 0.02 (0.00-0.031) K/mm3 Absolute Neuts (auto) 2.5 (1.3-6.7) K/mm3 Absolute Nucleated RBC 0.000 (0.0-0.012) K/mm3 Nucleated RBC % 0.0 (0.0-0.2) % Sodium 140 (137-145) mmol/L Potassium 3.3 L (3.4-5.0) mmol/L Chloride 103 (98-107) mmol/L Carbon Dioxide 19 L (22-30) mmol/L Anion Gap 18 H (4-12) mmol/L BUN 8 L (9-20) mg/dL Creatinine 0.58 L (0.7-1.3) mg/dL Estim Creat Clear Calc 124 ml/min Estimated GFR > 60 (59 - ) Glucose 145 H (65-110) mg/dL Calcium 8.8 (8.4-10.2) mg/dL Magnesium 2.0 (1.6-2.3) mg/dL Total Bilirubin 0.3 (0.2-1.3) mg/dL AST 92 H (17-59) U/L ALT 44 (6-50) U/L Alkaline Phosphatase 504 H (38-126) U/L Total Protein 7.0 (6.3-8.2) g/dL Albumin 3.7 (3.5-5.1) g/dL Lipase 65 (23-300) U/L Ethyl Alcohol 449 H* (<10) mg/dL Discharge Plan Discharge Clinical Impression: Alcohol abuse, Acute alcohol intoxication Patient Disposition: Home, Self-Care Condition: Stable Instructions: Antibiotic Form, Abuse of Alcohol (ED) Patient Language: Amharic Prescriptions: No Action fluticasone propionate [Flonase Allergy Relief] 50 mcg/actuation spray,suspension 2 spray intranasal DAILY Qty: 16 0RF Rx Instructions: administer into each nostril fenofibrate 160 mg tablet 160 mg PO DAILY Qty: 90 1RF folic acid 1 mg tablet See Rx Instructions .ROUTE .COMPLEX Qty: 90 1RF Dose Instruction: TAKE 1 TABLET BY MOUTH DAILY Rx Instructions: TAKE 1 TABLET BY MOUTH DAILY pantoprazole 40 mg tablet,delayed release (DR/EC) See Rx Instructions .ROUTE .COMPLEX Qty: 90 1RF Dose Instruction: TAKE 1 TABLET BY MOUTH EVERY MORNING Rx Instructions: TAKE 1 TABLET BY MOUTH EVERY MORNING meloxicam 7.5 mg tablet 7.5 mg PO BID PRN (Reason: joint pain) Qty: 60 5RF duloxetine [Cymbalta] 30 mg capsule,delayed release(DR/EC) 90 mg PO .COMPLEX Qty: 90 5RF Rx Instructions: 90 mg orally Take 2 capsules in AM and then 1 capsule in the evening.; melatonin 10 mg capsule 10 mg PO QHS lidocaine 5 % adhesive patch,medicated 1 patch topical DAILY Patient Comments: On right shoulder psyllium husk [Metamucil] 0.4 gram capsule 0.4 g PO DAILY potassium gluconate 595 mg (99 mg) tablet 595 mg PO DAILY ondansetron 4 mg tablet,disintegrating 4 mg PO Q8H PRN (Reason: nausea and vomiting) Qty: 30 0RF losartan 25 mg tablet 25 mg PO DAILY tobramycin 0.3 % drops 1 drp LEFT EYE Q4H Qty: 5 0RF ondansetron 4 mg tablet,disintegrating 4 mg PO Q8H PRN (Reason: nausea and vomiting) Qty: 15 0RF chlordiazepoxide HCl 25 mg capsule 25 mg PO TID PRN (Reason: alcohol withdrawal) Qty: 15 0RF aj-unbo-gsrfs-lycopene-ginkgo 400-600-120 mcg-mcg-mg Tablet 1 tablet PO DAILY sildenafil 100 mg tablet 100 mg PO DAILY PRN (Reason: sexual activity) Qty: 8 3RF Rx Instructions: administer 30 minutes to 4 hours before activity Creon 12,000-38,000 -60,000 unit capsule,delayed release(DR/EC) 1 cap PO TID Qty: 90 5RF Rx Instructions: administer with meals and/or snacks tadalafil 20 mg tablet See Rx Instructions .ROUTE .COMPLEX Qty: 8 4RF Dose Instruction: TAKE 1 TABLET BY MOUTH DAILY SEXUAL ACTIVITY AND 30 MINUTES BEFORE SEXUAL ACTIVITY NEEDED. DO NOT USE MORE THAN 1 DOSE PER 24 HOURS Rx Instructions: TAKE 1 TABLET BY MOUTH DAILY SEXUAL ACTIVITY AND 30 MINUTES BEFORE SEXUAL ACTIVITY NEEDED. DO NOT USE MORE THAN 1 DOSE PER 24 HOURS gabapentin 300 mg capsule 300 mg PO Q8H Qty: 270 1RF trazodone 50 mg tablet 100 mg PO .QHS PRN (Reason: insomnia) Qty: 180 1RF tizanidine 4 mg tablet See Rx Instructions .ROUTE .COMPLEX Qty: 60 2RF Dose Instruction: TAKE 1 TO 2 TABLETS BY MOUTH EVERY NIGHT AT BEDTIME NEEDED FOR MUSCLE SPASMS Rx Instructions: TAKE 1 TO 2 TABLETS BY MOUTH EVERY NIGHT AT BEDTIME NEEDED FOR MUSCLE SPASMS amlodipine 10 mg tablet 10 mg PO DAILY Qty: 90 1RF Follow-up/Referrals: Ronnell Escobar APRN [Primary Care Provider] - Time of Disposition: 16:58
[2024-07-22 13:19] LABS: Basophils Absolute Auto 0.1 K/mm3 (0.0-0.1); Basophils Percent Auto 1.8 % (0.2-1.2); Eosinophils Percent Auto 0.8 % (0-4.4); Hematocrit 36.9 % (42.0-52.0); Hemoglobin 12.4 g/dL (14.0-18.0); Immature Granulocyte Absolute 0.02 K/mm3 (0.00-0.031); Immature Granulocyte Percent A 0.4 % (0-0.5); Lymphocytes Absolute Auto 1.59 K/mm3 (0.9-3.2); Lymphocytes Percent Auto 31.4 % (18.3-44.2); Mean Corpuscular HGB Conc 33.6 g/dl (32-36); Mean Corpuscular Hemoglobin 30.6 pg (26-34); Mean Corpuscular Volume 91.1 fl (80-100); Mean Platelet Volume 8.9 fl (7.4-10.4); Monocytes Absolute Auto 0.8 K/mm3 (0.1-0.6); Monocytes Percent Auto 16.6 % (2.6-8.5); Neutrophils Absolute Auto 2.5 K/mm3 (1.3-6.7); Platelet Count Result 421 k/mm3 (150-375); Red Blood Count 4.05 M/mm3 (4.6-6.20); Red Cell Distribution Width 16.2 % (11.5-14.5); White Blood Count 5.1 K/mm3 (4.5-10.0)
[2024-07-22 13:31] LABS: Alanine Aminotransferase 44 U/L (6-50); Albumin Level 3.7 g/dL (3.5-5.1); Alkaline Phosphatase 504 U/L (38-126); Anion Gap 18 mmol/L (4-12); Aspartate Amino Transferase 92 U/L (17-59); Bilirubin,Total 0.3 mg/dL (0.2-1.3); Blood Urea Nitrogen 8 mg/dL (9-20); Calcium 8.8 mg/dL (8.4-10.2); Carbon Dioxide 19 mmol/L (22-30); Chloride 103 mmol/L (98-107); Estimated CRCL calculation 124 ml/min; Estimated Glomerular Filt Rate > 60; Glucose 145 mg/dL (65-110); Potassium 3.3 mmol/L (3.4-5.0); Sodium 140 mmol/L (137-145)
[2024-07-22] MEDS: DEXTROSE 5%/0.9% SOD CHL 1,000 ML 150 ML IV CONT (13:32)
--- OUTSIDE RECORDS SUMMARY | 2024-07-22 14:36 | XMS_ITS | Encounter Summary ---
Author Organization [facility] Address [address] [place] [address] Care Team Providers Care Health Information Administrator Name Role Phone Don Walton Primary Care Provider Encounter Details Date Type Department Care Team (Late st Contact Info) Description 01/25/2022 Orders Only [facility] [address] [place] [phone] Jordana Chambers MD [address] [place] [address] Social History Tobacco Use Types Packs/Day Years [...] often do you attend chur ch or temple services? 1 to 4 times per year [...] place to sleep or slept in a fpc (including now)? No 01/27/2022 Sex and Gender Information Value Date Recorded Sex Assigned at Not on file Legal Sex Male 1:58 AM EVALUATION ASSISTANT Gender Identity Not on file Sexual Orientation [...] COVID: Suspected 06/06/2023 06/06/2023 06/06/2023 9:39 PM EVALUATION ASSISTANT documented as of this encounter Care Teams Health Information Administrator Relationship Specialty Start Date End Date Don Walton PA [address] [facility] [address] [place] [address] PCP - General Physician Mold Worker 12/28/21 documented as of this encounter
--- OUTSIDE RECORDS SUMMARY | 2024-07-22 14:36 | XMS_ITS | Encounter Summary ---
Author Organization [facility] Address [address] [place] [address] Care Team Providers Care Business Process Lead Name Role Phone Lamberto Barker MD Primary Care Provider [phone] Encounter Details Date Type Department Care Team (Late st Contact Info) Description 10/21/2022 [employer] Message Enc [facility] [place], [address] [address] [employer], [facility] Provider Stress test Social History Tobacco Use Types Packs/Day Years Used Date Smoking Tobacco: Every Day Cigarettes 0.5 30 Smokeless Tobacco: Former Chew Quit: 2011 Alcohol Use Standard Drinks/Week Comments Yes 0 [...] often do you attend chur ch or alevism services? Never 12/25/2020 Do you belong to any clubs o r organizations such as taoist groups, unions, fraternal or athletic groups, or [...] move on to questions 3-9 2 12/25/2020 [facility] of Occupat ional Health - Occupational Stress [...] place to sleep or slept in a correction (including now)? No 12/25/2020 Sex and Gender [...] Assessment Author Status No 06/20/2021 1:29 AM CONVEYOR MAINTENANCE MECHANIC Activ e * RETIRED Are you blind or do you have serious difficulty seeing, even when wearing glasses? Answer Date of Assessment Author Status No 06/20/2021 1:29 AM CONVEYOR MAINTENANCE MECHANIC Activ e * Do you have serious [...] control General No Nancy Matthews RN Safety Patient/family will have appropriate support at home [...] documented as of this encounter Care Teams Business Process Lead Relationship Specialty Start Date End Date Lamberto Barker MD [address] [place] [address] PCP - General INTERNAL MEDICINE 05/08/19 documented as of this encounter
--- OUTSIDE RECORDS SUMMARY | 2024-07-22 14:36 | XMS_ITS | Encounter Summary ---
Author Organization [facility] Address [address] [place] [address] Care Team Providers Care Beef Skinner Name Role Phone Lamberto Barker MD Primary Care Provider [phone] Encounter Details Date Type Department Care Team (Late st Contact Info) Description 11/07/2022 [employer] Message Enc [facility] [address] [address] [place], [facility] Provider Echocardiogram Social History Tobacco Use Types [...] often do you attend chur ch or roman catholic services? Never 12/25/2020 Do you belong to any clubs o r organizations such as nondenominational groups, unions, fraternal or athletic groups, or [...] move on to questions 3-9 2 12/25/2020 [facility] of Occupat ional [facility] - Occupational Stress Questionnaire Answer Date [...] Assessment Author Status No 06/20/2021 1:29 AM BIOLOGIST AIDE Activ e * RETIRED Are you blind or do you have serious difficulty seeing, even when wearing glasses? Answer Date of Assessment Author Status No 06/20/2021 1:29 AM BIOLOGIST AIDE Activ e * Do you have serious [...] documented as of this encounter Care Teams Beef Skinner Relationship Specialty Start Date End Date Lamberto Barker MD [address] [place] [address] PCP - General INTERNAL MEDICINE 05/08/19 documented as of this encounter
--- OUTSIDE RECORDS SUMMARY | 2024-07-22 14:36 | XMS_ITS | Encounter Summary ---
Author Organization [facility] Address [address] [place] [address] Care Team Providers Care Operations Lead Name Role Phone Lamberto Barker MD Primary Care Provider [phone] Encounter Details Date Type Department Care Team (Late st Contact Info) Description 01/05/2021 Hospital Follow-up Call [facility] Tele[place] [address] Heather Adames, RN Social History Tobacco Use [...] How often do you attend chur or zoroastrian services? Never 12/25/2020 Do you belong to any clubs o r organizations such as restoration groups, unions, fraternal or athletic groups, or [...] move on to questions 3-9 2 12/25/2020 [facility] - Occupational Stress Questionnaire Answer Date [...] documented as of this encounter Care Teams Operations Lead Relationship Specialty Start Date End Date Lamberto Barker MD [address] [place] [address] PCP - General INTERNAL MEDICINE 05/08/19 documented as of this encounter
--- OUTSIDE RECORDS SUMMARY | 2024-07-22 14:36 | XMS_ITS | Encounter Summary ---
Author Organization [facility] Address [address] [place] [address] Phone Care Team Providers Care Professional Fee Coder Name Role Phone Unknown, Notinfile Primary Care Provider Unavail able Lamberto Barker MD Primary Care Provider [phone] Don Walton Primary Care Provider Encounter Details [...] on file Legal Sex Male 1:58 AM TYPE INSPECTOR Gender Identity Not on file Sexual Orientation [...] COVID: Suspected 06/06/2023 06/06/2023 06/06/2023 9:39 PM TYPE INSPECTOR documented as of this encounter Care Teams Professional Fee Coder Relationship Specialty Start Date End Date Unknown, Dulce PCP - General 10/01/19 04/26/20 Lamberto Barker MD [address] [place] [address] PCP - General Internal Medicine 04/27/20 12/27/21 Don Walton PA [address] [place] [address] PCP - General Physician School Bus Operator 12/28/21 documented as of this encounter
--- OUTSIDE RECORDS SUMMARY | 2024-07-22 14:36 | XMS_ITS | Clinical Summary ---
Author Organization [facility] Address [address], [facility] [address] [place] [address] Phone Care Team Providers Care Top Waddy Name Role Phone Lamberto Barker Nasra RUCKER Primary Care Provider [phone] Social History Tobacco Use Types Packs/Day Years Used Date Smoking Tobacco: Never Assessed Sex and Gender Information Value Date Recorded Sex Assigned at Not on file Legal Sex Male 8:46 AM CDT Gender Identity Not on file Sexual Orientation Not on file Plan of Treatment Not on file Insurance [facility] MEDICARE C [employer] Care Teams Top Waddy Relationship Specialty Start Date End Date Lamberto Barker DO [id number] [place] [address] PCP - General Internal Medicine 09/18/19
--- OUTSIDE RECORDS SUMMARY | 2024-07-22 14:36 | XMS_ITS | Referral Summary ---
Author Organization [facility] Address [address] [place] [address] Care Team Providers Care Foil Wrapper Name Role Phone Don Walton Primary Care Provider Allergies Active Allergy Reactions Criticality Noted Date Comments Ciprofloxacin Hives Medium 06/02/2023 Patient stated he has previously tolerated PO. 06/02/23 had redness and hives after IV dose. Penicillins Rash Medium 05/08/2019 Kwzqfshblzqd-Xngvhnyqif-Ynt trs Angioedema High 09/17/[address] [...] daily 30 patch 01/12/20 22 Active multivit pytpvnwi-zjqq-EY-c alcium (THERA-M) 9 mg iron-400 mcg tabletIndications: [...] 06/10/2023 Assessment & Plan (06/12/2023 2:18 PM COLLEGE PRESIDENT): Patient reports feeling constipated, gassy and bloated. [...] 06/08/2023 Assessment & Plan (06/09/2023 1:55 PM COLLEGE PRESIDENT): Resolved. Acute pancreatitis, unspecif ied complication status, unspecified pancreatitis type 06/04/2023 Assessment & Plan (06/05/2023 12:45 PM COLLEGE PRESIDENT): Longstanding bouts of pancreatitis originally from EtOH [...] 06/04/2023 Assessment & Plan (06/05/2023 12:48 PM COLLEGE PRESIDENT): Likely from pancreatitis. Also tender to palpation initially so may be a musculoskeletal component from dry heaving. Trops negative. EKG no ischemic changes. He reports hx of [place] in the past, unclear circumstances. He had an exercise stress test in spring at an outside facility that he says was normal. Cont ASA. Gram-negative bacteremia 04/11/2023 Assessment & Plan (04/13/2023 7:02 PM COLLEGE PRESIDENT): - due to cholangitis - BCx + for E coli and K. Pneumoniae - repeat BCx drawn 04/11, ngtd - pansensitive organisms - d/c home today with flagyl/cipro Cholangitis 04/10/2023 Assessment & Plan (04/12/2023 6:21 PM COLLEGE PRESIDENT): - Improving - 04/10 ERCP - removal of two migrates stents with biliary obstruction and replaced with 2 new stents in biliary stricture - PRN analgesics and antiemetics Assessment & Plan (04/10/2023 2:40 AM COLLEGE PRESIDENT): -meets [place] criteria for acute cholangitis based [...] 01/04/2022 Assessment & Plan (06/13/2023 2:35 PM COLLEGE PRESIDENT): Recently admitted from 06/04-06/05/23 after ERCP on [...] (01/05/2022): Added automatically from request for surgery [id number] Assessment & Plan (04/11/2023 3:57 PM COLLEGE PRESIDENT): - improving -2/2 stent migration and resultant biliary obstruction Assessment & Plan (04/10/2023 2:27 AM COLLEGE PRESIDENT): -2/2 stent migration and resultant biliary obstruction -mgmt as above -repeat HFP in AM 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 Overview (11/30/2021): Added automatically from request for surgery [id number] Encounter for replacement of biliary stent 11/30 Overview (11/30/2021): Added automatically from request for surgery [id number] Alcohol-induced chronic pancreatitis (CMS/HCC) 0 07/26/2021 Pancreatic pseudocyst 07/26/2021 Severe sepsis 07/08/2021 Assessment & Plan (07/13/2021 9:43 AM COLLEGE PRESIDENT): Pt elevated temp on 07/07 overnight 38.1 [...] infection Assessment & Plan (07/12/2021 9:40 AM COLLEGE PRESIDENT): Pt elevated temp on 07/07 overnight 38.1 [...] infection Assessment & Plan (07/11/2021 10:55 AM COLLEGE PRESIDENT): Pt elevated temp on 2 overnight 38.1 [...] bed Assessment & Plan (07/10/2021 9:10 AM COLLEGE PRESIDENT): Pt elevated temp on 07/07 overnight 38.1 [...] daily Assessment & Plan (07/09/2021 2:23 PM COLLEGE PRESIDENT): Pt elevated temp on 2 overnight 38.1 [...] daily Assessment & Plan (07/08/2021 1:53 PM COLLEGE PRESIDENT): Pt elevated temp overnight 38.1 max, hypotensive [...] 07/07/2021 Assessment & Plan (07/13/2021 9:43 AM COLLEGE PRESIDENT): Dobbhoff placed 2/10, tube feeding to initiated Osmolite 1.5 at 55mL/hr over 24h via [place] tube continuous via pump. Flush with 150mL water q4h. Now at goal of 55cc/hr. Can cycle at home as instructed. Will continue TF until follow up with GI as outpatient Assessment & Plan (07/12/2021 9:39 AM COLLEGE PRESIDENT): Dobbhoff placed 2/10, tube feeding to initiated Osmolite 1.5 at 55mL/hr over 24h via [place] tube continuous via pump. Flush with 150mL water q4h. Now at goal of 55cc/hr. Can cycle at home as instructed. Will continue TF until follow up with GI as outpatient Assessment & Plan (07/11/2021 10:55 AM COLLEGE PRESIDENT): Dobbhoff placed 2/10, tube feeding to initiated [...] Phos Assessment & Plan (07/10/2021 9:08 AM COLLEGE PRESIDENT): Dobbhoff placed 07/08, tube feeding to initiated TF recommendations: Goal: Osmolite 1.5 at 55mL/hr over 24h via [place] tube continuous via pump. Flush with 150mL water q4h. Initiate TF at 10mL/hr and increase by 10mL q4h until goal rate is reached Pt at goal feeding 55 ml/hr and tolerating without event Continue TF feeding Monitor BMP, Mag, Phos Assessment & Plan (07/09/2021 2:25 PM COLLEGE PRESIDENT): Dobbhoff placed 07/08, tube feeding to initiated TF [...] prn Assessment & Plan (07/08/2021 1:11 PM COLLEGE PRESIDENT): Dobbhoff placed 07/08, tube feeding to initiate TF recommendations: Goal: Osmolite 1.5 at 55mL/hr over 24h via [place] tube continuous via pump. Flush with 150mL water q4h. Initiate TF at 10mL/hr and increase by 10mL q4h until goal rate is reached Chronic pancreatitis, unspecified pancreatitis t ype 07/06/2021 Assessment & Plan (07/13/2021 9:42 AM COLLEGE PRESIDENT): Ongoing acute episode of (developing) chronic pancreatitis. [...] home Assessment & Plan (07/12/2021 9:38 AM COLLEGE PRESIDENT): Ongoing acute episode of (developing) chronic pancreatitis. [...] 07/13 Assessment & Plan (07/11/2021 10:53 AM COLLEGE PRESIDENT): Ongoing acute episode of (developing) chronic pancreatitis. [...] discharge Assessment & Plan (07/10/2021 9:07 AM COLLEGE PRESIDENT): Ongoing acute episode of developing chronic pancreatitis. [...] feedings Assessment & Plan (07/09/2021 2:30 PM COLLEGE PRESIDENT): Ongoing acute episode of chronic pancreatitis. Just [...] CTM Assessment & Plan (07/08/2021 1:49 PM COLLEGE PRESIDENT): Ongoing acute episode of chronic pancreatitis. Just [...] pancreatic rest enteral feedings. GI consult pt elida placed 07/08 for pancreatic rest. Continue conservative treatment (IVF, analgesic, antiemetics) RD c/s for tube feeding plan Assessment & Plan (07/07/2021 11:22 AM COLLEGE PRESIDENT): Ongoing acute episode of chronic pancreatitis. Just [...] plan Assessment & Plan (07/06/2021 5:30 PM COLLEGE PRESIDENT): Ongoing acute episode of chronic pancreatitis. Just [...] 07/06/2021 Assessment & Plan (07/13/2021 9:42 AM COLLEGE PRESIDENT): Likely ATN related to hypotensive episode. Cr peaked at Cr at 2.31, now back to baseline after aggressive IVF and now tolerating TF. Assessment & Plan (07/12/2021 9:36 AM COLLEGE PRESIDENT): Likely ATN related to hypotensive episode. Cr peaked at Cr at 2.31, now back to baseline after aggressive IVF and now tolerating TF. Assessment & Plan (07/11/2021 10:54 AM COLLEGE PRESIDENT): Likely ATN related to hypotensive episode. Cr peaked at Cr at 2.31, now back to baseline after aggressive IVF, continue to monitor bmp, continue fluids Assessment & Plan (07/10/2021 9:08 AM COLLEGE PRESIDENT): Likely ATN related to hypotensive episode. Cr peaked at Cr at 2.31, now back to baseline after aggressive IVF, continue to monitor bmp, continue fluids Assessment & Plan (07/09/2021 2:29 PM COLLEGE PRESIDENT): Cr at baseline after aggressive IVF, continue to monitor bmp, continue fluids Assessment & Plan (07/08/2021 1:10 PM COLLEGE PRESIDENT): Cr baseline 0.8 now up to 1.3 on arrival due to po intolerance Aggressive IVF will monitor urine output Today net fluid intake 191 Cr trended up to 2.31 continue aggressive fluids Daily bmp Continue IVF Assessment & Plan (07/07/2021 11:19 AM COLLEGE PRESIDENT): Cr baseline 0.8 now up to 1.3 on arrival due to po intolerance Aggressive IVF will monitor urine output Today net fluid intake 191 Cr 1.05 improving with fluids Daily bmp Continue IVF Assessment & Plan (07/06/2021 5:39 PM COLLEGE PRESIDENT): Cr baseline 0.8 now up to 1.3 on arrival due to po intolerance Aggressive IVF will monitor urine output Alcohol dependence 06/25/2021 Assessment & Plan (06/07/2023 5:01 AM COLLEGE PRESIDENT): Last drink on [place] and he reports being motivated to remain [...] program Assessment & Plan (07/13/2021 9:42 AM COLLEGE PRESIDENT): Has a long history of alcohol use [...] Group Assessment & Plan (07/12/2021 9:36 AM COLLEGE PRESIDENT): Has a long history of alcohol use [...] Group Assessment & Plan (07/11/2021 10:54 AM COLLEGE PRESIDENT): Has a long history of alcohol use [...] Group Assessment & Plan (07/10/2021 9:05 AM COLLEGE PRESIDENT): Has a long history of alcohol use [...] Group Assessment & Plan (07/09/2021 2:33 PM COLLEGE PRESIDENT): Has a long history of alcohol use [...] Group Assessment & Plan (07/08/2021 1:06 PM COLLEGE PRESIDENT): Has a long history of alcohol use with dependence. He states he has not had a drink since before his ERCP 06/22/2021 and has been on Vivitrol injections. His ethanol level on arrival to the ED is negative Plan to continue EtOH cessation and support with outpatient naltrexone therapy. Assessment & Plan (07/07/2021 11:13 AM COLLEGE PRESIDENT): Has a long history of alcohol use with dependence. He states he has not had a drink since before his ERCP 06/22/2021 and has been on Vivitrol injections. His ethanol level on arrival to the ED is negative Plan to continue EtOH cessation and support with outpatient naltrexone therapy. Assessment & Plan (07/06/2021 5:22 PM COLLEGE PRESIDENT): Has a long history of alcohol use with dependence. He states he has not had a drink since before his ERCP 06/22/2021 and has been on Vivitrol injections. His ethanol level on arrival to the ED is negative Plan to continue EtOH cessation and support with outpatient naltrexone therapy Assessment & Plan (06/28/2021 11:39 AM COLLEGE PRESIDENT): Long standing hx of alcohol dependence with hx of short term remission. Last drink was 06/17. States he usually drinks hard liquor shot . Denies hx of seizure or delirium. On vivitrol but did not receive this month's shot due to being on analgesic for post ERCP pain control. -thiamine -folate -MVI -ciwa protocol - PRN Ativan, has not needed Assessment & Plan (06/27/2021 11:47 AM COLLEGE PRESIDENT): Long standing hx of alcohol dependence with hx of short term remission. Last drink was 06/17. States he usually drinks hard liquor shot . Denies hx of seizure or delirium. On vivitrol but did not receive this month's shot due to being on analgesic for post ERCP pain control. -thiamine -folate -MVI -ciwa protocol - PRN Ativan, has not needed Assessment & Plan (06/26/2021 11:59 AM COLLEGE PRESIDENT): Long standing hx of alcohol dependence with hx of short term remission. Last drink was 1/20. States he usually drinks hard liquor shot . Denies hx of seizure or delirium. On vivitrol but did not receive this month's shot due to being on analgesic for post ERCP pain control. -thiamine -folate -MVI -ciwa protocol - Ativan Hypertension 06/25/2021 Assessment & Plan (06/07/2023 5:06 AM COLLEGE PRESIDENT): Markedly hypertensive on ED arrival in the setting of pain -Continue home Amlodipine 10 mg qday and losartan 25 mg qday Assessment & Plan (06/05/2023 12:47 PM COLLEGE PRESIDENT): Hypertensive initially from pain. Improved today. Cont home meds. Assessment & Plan (04/12/2023 6:21 PM COLLEGE PRESIDENT): -continue norvasc Assessment & Plan (04/10/2023 2:31 AM COLLEGE PRESIDENT): -resume norvasc in AM Assessment & Plan (01/11/2022 11:23 AM CDT): Continue norvasc Assessment & Plan (01/10/2022 11:40 AM CDT): Continue norvasc Assessment & Plan (07/13/2021 9:43 AM COLLEGE PRESIDENT): Continue to hold home lisinopril on account of recent hypotension/JOSE. With low normotensive BP will discontinue lisinopril. Follow up with PCP in 2-4 weeks to re evaluate restarting if needed Assessment & Plan (07/12/2021 9:38 AM COLLEGE PRESIDENT): Continue to hold home lisinopril on account of recent hypotension/JOSE. BP normal, may not require lisinopril on discharge. Assessment & Plan (07/11/2021 10:54 AM COLLEGE PRESIDENT): Continue to hold home lisinopril on account of recent hypotension/JOSE. BP normal, may not require lisinopril on discharge. Assessment & Plan (07/10/2021 9:06 AM COLLEGE PRESIDENT): Continue to hold home lisinopril on account of recent hypotension Assessment & Plan (07/09/2021 2:32 PM COLLEGE PRESIDENT): Continue to hold home lisinopril until more stable BP Assessment & Plan (07/08/2021 1:06 PM COLLEGE PRESIDENT): BP hypotensive overnight hold antihypertensives at this time. Assessment & Plan (07/07/2021 11:15 AM COLLEGE PRESIDENT): BP on remain normotensive Continue lisinopril and pain control Assessment & Plan (07/06/2021 5:30 PM COLLEGE PRESIDENT): BP on arrival normotensive Continue lisinopril and pain control Assessment & Plan (06/28/2021 11:39 AM COLLEGE PRESIDENT): Continue home lisinopril 40 mg -Monitor BP -BP stable Assessment & Plan (06/27/2021 11:48 AM COLLEGE PRESIDENT): Continue home lisinopril 40 mg -Monitor BP/Cr -BP stable Assessment & Plan (06/25/2021 4:55 PM COLLEGE PRESIDENT): Continue home lisinopril 40 mg -Monitor BP/Cr -Daily BMP Tobacco abuse 06/25/2021 Major depressive disorder 06/25/2021 Assessment & Plan (06/07/2023 5:07 AM COLLEGE PRESIDENT): Continue home duloxetine 30 mg BID and trazodone 50 mg qhs Assessment & Plan (06/04/2023 11:58 AM COLLEGE PRESIDENT): Cont home meds Assessment & Plan (01/11/2022 11:23 AM CDT): Continue duloxetine scheduled and trazodone prn Assessment & Plan (01/10/2022 11:40 AM CDT): Continue duloxetine scheduled and trazodone prn Assessment & Plan (07/13/2021 9:43 AM COLLEGE PRESIDENT): Most certainly contributing to his long standing alcohol use. Continue home meds duloxetine and trazodone Assessment & Plan (07/12/2021 9:38 AM COLLEGE PRESIDENT): Most certainly contributing to his long standing alcohol use. Continue home meds duloxetine and trazodone Assessment & Plan (07/11/2021 10:54 AM COLLEGE PRESIDENT): Most certainly contributing to his long standing alcohol use. Continue home meds duloxetine and trazodone Assessment & Plan (07/10/2021 9:06 AM COLLEGE PRESIDENT): Most certainly contributing to his long standing alcohol use. Continue home meds duloxetine and trazodone Assessment & Plan (07/09/2021 2:30 PM COLLEGE PRESIDENT): Most certainly contributing to his long standing alcohol use now with cessation Continue home meds duloxetine and trazodone Assessment & Plan (07/08/2021 1:09 PM COLLEGE PRESIDENT): Most certainly contributing to his long standing alcohol use now with cessation Continue home meds duloxetine and trazodone Assessment & Plan (07/07/2021 11:16 AM COLLEGE PRESIDENT): Most certainly contributing to his long standing alcohol use now with cessation Continue home meds duloxetine and trazodone Assessment & Plan (07/06/2021 5:32 PM COLLEGE PRESIDENT): Most certainly contributing to his long standing alcohol use now with cessation Continue home meds duloxetine and trazodone Assessment & Plan (06/28/2021 11:39 AM COLLEGE PRESIDENT): Continue home Trazodone 50 mg, Cymbalta 30 mg Resume Biofeedback at discharge Assessment & Plan (06/27/2021 11:48 AM COLLEGE PRESIDENT): Continue home Trazodone 50 mg, Cymbalta 30 mg Resume Biofeedback at discharge Assessment & Plan (06/25/2021 4:57 PM COLLEGE PRESIDENT): Continue home Trazodone 50 mg, Cymbalta 30 mg Resume Biofeedback at discharge Pancreatic duct obstruction 06/11/2021 Overview (06/11/2021): Added automatically from request for surgery [id number] Abdominal pain 06/11/2021 Overview (06/11/2021): Added automatically from request for surgery [id number] Necrotizing pancreatitis 10/21/2019 Therapeutic opioid induced constipation 10/21/19 20 Assessment & Plan (07/13/2021 9:44 AM COLLEGE PRESIDENT): Continue bowel regimen Assessment & Plan (07/12/2021 9:41 AM COLLEGE PRESIDENT): Bowel regimen ordered without BM. Will titrate bowel regimen Assessment & Plan (07/11/2021 10:58 AM COLLEGE PRESIDENT): Bowel regimen ordered Assessment & Plan (06/28/2021 11:39 AM COLLEGE PRESIDENT): Pt states no BM for the past week. Likely due to decrease intake and vomiting, possible contribution from opioids -daily bowel regimen, had BM Monday Assessment & Plan (06/27/2021 11:48 AM COLLEGE PRESIDENT): Pt states no BM for the past week. Likely due to decrease intake and vomiting, possible contribution from opioids -daily bowel regimen Assessment & Plan (06/26/2021 12:00 PM COLLEGE PRESIDENT): Pt states no BM for the past week. Likely due to decrease intake and vomiting, possibly contribution from opioids -daily bowel regimen -clear liquid diet Acute pancreatitis 05/08/2019 Assessment & Plan (06/28/2021 11:38 AM COLLEGE PRESIDENT): Hx of chronic pancreatis starting 3 years [...] smoking, but alcohol cessation should be prioritized. Assessment & Plan (06/27/2021 11:46 AM COLLEGE PRESIDENT): Hx of chronic pancreatis starting 3 years [...] smoking, but alcohol cessation should be prioritized. Assessment & Plan (06/26/2021 11:59 AM COLLEGE PRESIDENT): Hx of chronic pancreatis starting 3 years [...] smoking, but alcohol cessation should be prioritized. Resolved Problems Problem Noted Date Diagnosed Date Resolved Date Common bile duct obstruction secondary to biliary stent 04/09/2023 04/11/2023 Assessment & Plan (04/10/2023 2:38 AM COLLEGE PRESIDENT): -migrated stent likely etiology of presenting symptoms and lab, CT findings -will likely need ERCP for stent exchange on Monday Metabolic acidosis, increased anion gap (IAG) 06/25/1907/09/2021 Assessment & Plan (07/09/2021 2:31 PM COLLEGE PRESIDENT): Dobbhoff placed 07/08, to start tube feeding TF recommendations: Goal: Osmolite 1.5 at 55mL/hr over 24h via [place] tube continuous via pump. Flush with 150mL water q4h. Initiate TF at 10mL/hr and increase by 10mL q4h until goal rate is reached Assessment & Plan (07/08/2021 1:49 PM COLLEGE PRESIDENT): Due to starvation in the setting of [...] reached Assessment & Plan (07/07/2021 11:16 AM COLLEGE PRESIDENT): Due to starvation in the setting of intolerance to PO for the last 3-4 days. Will provide aggressive IVF Continue to discuss enteral feedings with the patient going forward, currently pt is refusing, GI will readdress with pt today with goal for placement today should pt agree. Change IVF to D5LR Assessment & Plan (07/06/2021 5:38 PM COLLEGE PRESIDENT): Due to starvation in the setting of intolerance to PO for the last 3-4 days. Will provide aggressive IVF Continue to discuss enteral feedings with the patient going forward Assessment & Plan (06/28/2021 11:39 AM COLLEGE PRESIDENT): Likely dehydration from pancreatitis, n/v and poor intake. Heme concentrated hgb 14.9 (baseline 8-9), wbc 14.4 no source of infection likely heme concentrated, anion gap 20, UA ketone +1. Resolved with IVF Assessment & Plan (06/27/2021 11:47 AM COLLEGE PRESIDENT): Likely dehydration from pancreatitis, n/v and poor intake. Heme concentrated hgb 14.9 (baseline 8-9), wbc 14.4 no source of infection likely heme concentrated, anion gap 20, UA ketone +1. Resolved with IVF Assessment & Plan (06/26/2021 12:00 PM COLLEGE PRESIDENT): Likely dehydration from pancreatitis, n/v and poor intake. Heme concentrated hgb 14.9 (baseline 8-9), wbc 14.4 no source of infection likely heme concentrated, anion gap 20, UA ketone +1 -IVF -Clear liquid diet -Daily bmp Immunizations Immunization Administration Dates Next Due Flucelvax Influenza Quad 03/03/2019 Influenza, Quadrivalent, Spl it, Preservative Free, Intramuscular 03/08/2021,02/05/2018 Td, adsorbed 07/01/1998 Social History Tobacco Use Types Packs/Day Years Used Date Smoking Tobacco: Every Day Cigarettes Smokeless Tobacco: Never Tobacco Cessation:Ready to Q uit: Not Asked; Counseling Given: Not Answered Alcohol Use Standard Drinks/Week Comments Yes 0 (1 standard drink = 0.6 oz pur e alcohol) [facility] Utilities Answer Date Recorded In the past [...] you attend chur ch or alevism services? 1 to 4 times per year [...] place to sleep or slept in a usp (including now)? No 09/21/2023 Personal Safety Answer Date Recorded Have you ever been in or are you currently in a harmful physical or emotional relationship or is someone making you feel afraid or unsafe? Denies 01/10/2024 Sex and Gender Information Value Date Recorded Sex Assigned at Not on file Legal Sex Male 1:58 AM COLLEGE PRESIDENT Gender Identity Not on file Sexual Orientation Not on file Occupation Industry Job Start Date Job End Date disability Not on file Not on file Not on file Last Filed Vital Signs Vital Sign Reading Time Taken Comments Blood Pressure 121/81 02/15/2024 3:03 PM CDT Pulse 87 02/15/2024 3:03 PM CDT Temperature 36.5 C (97.7 F) 01/10/2024 10:35 AM CDT Respiratory Rate 11 01/10/2024 11:55 AM CDT Oxygen Saturation 99% 02/15/2024 3:03 PM CDT Inhaled Oxygen Concentration - - Weight 87.8 kg (193 lb 9.6 oz) 02/15/2024 3:03 P M CDT Height 185.4 cm (6' 1 ) 02/15/2024 3:03 PM CDT Body Mass Index 25.54 02/15/2024 3:03 PM CDT Plan of Treatment Not on file Medical Devices Implanted Type Area Wet Washer Machine Device Identifier Shelf Expiration Date Model / Serial / Lot [employer] 8.5 Fr Nasal Biliary Catheter [id number] - [id number] Implanted:Qty: 1 on 01/26/2022 by Kenneth Loya MD at [facility] Catheter [employer] 06/22/2024 [id number] / / [id number] [employer] 10fr 5cm Biliary Double Pigtail Stent [id number] - [id number] Implanted:Qty: 1 on 09/21/2023 by Kenneth Loya MD at [facility] Stent N/A: Bile Duct [employer] 08/14/2025 [id number] / / [id number] [employer] 10fr 5cm Biliary Stent [id number] - [id number] Implanted:Qty: 1 on 09/21/2023 by Kenneth Loya MD at [facility] Stent N/A: Bile Duct [employer] 07/03/2025 [id number] / / [id number] [employer] 10fr 5cm Biliary Double Pigtail Stent [id number] - [id number] Implanted:Qty: 1 on 09/21/2023 by Kenneth Loya MD at [facility] Stent N/A: Bile Duct [employer] 08/23/2025 [id number] / / [id number] [employer] 10fr 5cm Biliary Double Pigtail Stent [id number] - [id number] Implanted:Qty: 1 on 09/21/2023 by Kenneth Loya MD at [facility] Stent N/A: Bile Duct [employer] 08/23/2025 [id number] / / [id number] [employer] 10fr 5cm Biliary Double Pigtail Stent [id number] - [id number] Implanted:Qty: 1 on 09/21/2023 by Kenneth Loya MD at [facility] Stent N/A: Bile Duct [employer] 08/14/2025 [id number] / / [id number] [employer] 10fr 7cm Biliary Stent [id number] - [id number] Implanted:Qty: 1 on 04/10/2023 by John De Anda MD at [facility] [employer] [id number] 12/13/2024 [id number] / / [id number] [employer] 10fr 7cm Biliary Stent [id number] - [id number] Implanted:Qty: 1 on 04/10/2023 by John De Anda MD at [facility] [employer] [id number] 02/07/2025 [id number] / / [id number] Explanted Type Area Wet Washer Machine Device Identifier Shelf Expiration Date Model / Serial / Lot [employer] [id number] [employer] 10fr 7cm Taper Tip Guidewire Proximal Distal Flap - [id number] Implanted:Qty: 1 on 08/04/2021 by Kenneth Loya MD at [facility] Explanted:Qty: 1 on 08/30/2021 at [facility] Stent N/A: Bile Duct [employer] 01/28/2024 [id number] / / [id number] [employer] 10 X 10 Stent Delivery System [id number] - [id number] Implanted:Qty: 1 on 08/04/2021 by Kenneth Loya MD at [facility] Explanted:Qty: 1 on 08/30/2021 at [facility] Stent N/A: Bile Duct [employer] 10/13/2022 [id number] / / [id number] [employer] Geenen 7fr 7cm Positioning Sleeve Push Catheter Guide[employer] [id number] - [id number] Implanted:Qty: 1 on 08/30/2021 at [facility] Explanted:Qty: 1 on 11/01/2021 by Kenneth Loya MD at [facility] Stent N/A: Pancreas [employer] 11/06/2023 [id number] / / [id number] [place] [employer] 10fr 5cm Biliary Stent [id number] - [id number] Implanted:Qty: 1 on 01/26/2022 by Kenneth Loya MD at [facility] Explanted:Qty: 1 on 04/06/2022 by Kenneth Loya MD at [facility] Stent [place] [employer] 11/16/2023 [id number] / / [id number] [place] [employer] Advanix Naviflex 7fr 9cm Radiopaque [place] Endo Marker Color Coded [id number] - [id number] Implanted:Qty: 1 on 01/26/2022 by Kenneth Loya MD at [facility] Explanted:Qty: 1 on 04/06/2022 at [facility] Stent [place] [employer] 04/16/2023 [id number] / / [id number] [place] [employer] Advanix 8.5fr 7cm Rapid Exchange Temporary [place] Stent [id number] - [id number] Implanted:Qty: 1 on 04/06/2022 by Kenneth Loya MD at [facility] Explanted:Qty: 1 on 07/06/2022 by Kenneth Loya MD at [facility] Stent N/A: Pancreas [place] [employer] 10/26/2023 [id number] / / [id number] [place] [employer] Advanix 8.5fr 7cm Rapid Exchange Temporary [place] Stent [id number] - [id number] Implanted:Qty: 1 on 04/06/2022 by Kenneth Loya MD at [facility] Explanted:Qty: 1 on 07/06/2022 by Kenneth Loya MD at [facility] Stent N/A: Pancreas [place] [employer] 10/26/2023 [id number] / / [id number] [place] [employer] 10fr 5cm Biliary Stent [id number] - [id number] Implanted:Qty: 1 on 09/08/2022 by Kenneth Loya MD at [facility] Explanted:Qty: 1 on 11/03/2022 by Kenneth Loya MD at [facility] Stent N/A: Bile Duct [place] [employer] 08/07/2024 [id number] / / [id number] [place] [employer] 10fr 5cm Biliary Stent [id number] - [id number] Implanted:Qty: 1 on 09/08/2022 by Kenneth Loya MD at [facility] Explanted:Qty: 1 on 11/03/2022 by Kenneth Loya MD at [facility] Stent N/A: Bile Duct [place] [employer] 05/04/2024 [id number] / / [id number] [employer] [place] Flexi-Stent 7fr 7cm Small Pigtail Flexible .035in Stent 6574 - [id number] Implanted:Qty: 1 on 09/08/2022 by Kenneth Loya MD at [facility] Explanted:Qty: 1 on 11/03/2022 by Kenneth Loya MD at [facility] Stent N/A: Bile Duct [employer] 05/28/2027 6574 / / [id number] [employer] [place] 8.5fr 9cm Drain Obstructed Positioning Sleeve Pushing [id number] - [id number] Implanted:Qty: 1 on 04/06/2022 by Kenneth Loya MD at [facility] Explanted:Qty: 1 on 01/05/2023 by Kenneth Loya MD at [facility] Stent N/A: Pancreas [employer] 05/03/2024 [id number] / / [id number] [employer] [place] Flexi-Stent 7fr 7cm Small Pig[place] Flexible .035in Stent 6574 - [id number] Implanted:Qty: 1 on 11/03/2022 by Kenneth Loya MD at [facility] Explanted:Qty: 1 on 01/05/2023 by Kenneth Loya MD at [facility] Stent N/A: Pancreas [employer] 05/28/2027 6574 / / [id number] [place] [employer] 10fr 5cm Biliary Stent [id number] - [id number] Implanted:Qty: 1 on 11/03/2022 by Kenneth Loya MD at [facility] Explanted:Qty: 1 on 01/05/2023 at [facility] Stent N/A: Bile Duct [place] [employer] 08/15/2024 [id number] / / [id number] [employer] Cotton-Young 10fr 5cm Taper Tip Soft Proximal Distal Flap Gentle [id number] - [id number] Implanted:Qty: 1 on 11/03/2022 by Kenneth Loya MD at [facility] Explanted:Qty: 1 on 01/05/2023 by Kenneth Loya MD at [facility] Stent N/A: Bile Duct [employer] 08/10/2025 [id number] / / [id number] [employer] [place] Flexi-Stent 4fr 7cm Small Pigtail Flexible .025in Stent 6544 - [id number] Implanted:Qty: 1 on 01/05/2023 by Kenneth Loya MD at [facility] Explanted:Qty: 1 on 06/02/[address] [facility] Stent N/A: Pancreas [employer] 07/27/2027 6544 / / [id number] Description:Not present on t his procedure [place] [employer] 10fr 7cm Biliary Stent [id number] - [id number] Implanted:Qty: 1 on 01/05/2023 by Kenneth Loya MD at [facility] Explanted:Qty: 1 on 06/02/2023 by Jero Soto MD at [facility] Stent N/A: Bile Duct [place] [employer] 12/13/2024 [id number] / / [id number] [place] [employer] 10fr 7cm Biliary Stent [id number] - [id number] Implanted:Qty: 1 on 01/05/2023 by Kenneth Loya MD at [facility] Explanted:Qty: 1 on 06/02/2023 by Jero Soto MD at [facility] Stent N/A: Bile Duct [place] [employer] 12/13/2024 [id number] / / [id number] [place] [employer] 10fr 5cm Biliary Double Pigtail Stent [id number] - [id number] Implanted:Qty: 1 on 06/02/2023 by Kenneth Loya MD at [facility] Explanted:Qty: 1 on 09/21/2023 by Kenneth Loya MD at [facility] Stent N/A: Bile Duct [place] [employer] 04/30/2025 [id number] / / [id number] [place] [employer] 10fr 5cm Biliary Double Pigtail Stent [id number] - [id number] Implanted:Qty: 1 on 06/02/2023 by Kennteh Loya MD at [facility] Explanted:Qty: 1 on 09/21/2023 by Kenneth Loya MD at [facility] Stent N/A: Bile Duct [place] [employer] 04/30/2025 [id number] / / [id number] [place] [employer] 10fr 5cm Biliary Stent [id number] - [id number] Implanted:Qty: 1 on 06/02/2023 by Kenneth Loya MD at [facility] Explanted:Qty: 1 on 09/21/2023 by Kenneth Loya MD at [facility] Stent N/A: Bile Duct [place] [employer] 02/28/2025 [id number] / / [id number] [place] [employer] 10fr 5cm Biliary Double Pigtail Stent [id number] - [id number] Implanted:Qty: 1 on 06/02/2023 by Kenneth Loya MD at [facility] Explanted:Qty: 1 on 09/21/2023 by Kenneth Loya MD at [facility] Stent N/A: Bile Duct [place] [employer] 04/30/2025 [id number] / / [id number] [place] [employer] [id number] Advanix 10fr 5cm Rapid Exchange Temporary [place] Stent - [id number] Implanted:Qty: 1 on 06/18/2021 by Kenneth Loya MD at [facility] Explanted:Qty: 1 on 08/30/2021 at [facility] [place] [employer] 06/30/2022 [id number] / / [id number] Description:Removed prior [place] [employer] Advanix Od10 Fr L7 Cm 1; Temporary [place] Stent Biliary Pl [id number] - [id number] Implanted:Qty: 1 on 08/30/2021 at [facility] Explanted:Qty: 1 on 11/01/2021 by Kenneth Loya MD at [facility] N/A: Bile Duct [place] [employer] 06/25/2022 [id number] / / [id number] [place] [employer] Advanix Naviflex 10fr 9cm Lead [place] Radiopaque Flexible [id number] - [id number] Implanted:Qty: 1 on 11/01/2021 by Kenneth Loya MD at [facility] Explanted:Qty: 1 on 01/05/2022 by Contreras Girard MD at [facility] N/A: Pancreas [place] [employer] 07/18/2022 [id number] / / [id number] 10fr 5cm Biliary Stent [id number] - [id number] Implanted:Qty: 1 on 11/01/2021 by Kenneth Loya MD at [facility] Explanted:Qty: 1 on 01/05/2022 at [facility] N/A: Bile Duct [place] [employer] 08/12/2023 [id number] / / [id number] 10fr 7cm Biliary Stent [id number] - [id number] Implanted:Qty: 1 on 11/01/2021 by Kenneth Loya MD at [facility] Explanted:Qty: 1 on 01/05/2022 by Contreras Girard MD at [facility] N/A: Bile Duct [place] [employer] 08/23/2023 [id number] / / [id number] [employer] Cotton-Young 10fr 5cm Taper Tip Soft Proximal Distal Flap Gentle P53092 - [id number] Implanted:Qty: 1 on 01/05/2022 by Contreras Girard MD at [facility] Explanted:Qty: 1 on 01/26/2022 at [facility] N/A: Bile Duct [employer] 05/07/2022 [id number] / / [id number] [place] [employer] Advanix 7fr 7cm Lead [place] Radiopaque [place] Endo Marker Drainage [id number] - [id number] Implanted:Qty: 1 on 07/06/2022 by Kenneth Loya MD at [facility] Explanted:Qty: 1 on 09/08/2022 by Kenneth Loya MD at [facility] N/A: Pancreas [place] [employer] 05/03/2023 [id number] / / 7 [id number] [place] [employer] 10fr 5cm Biliary Stent [id number] - [id number] Implanted:Qty: 1 on 07/06/2022 by Kenneth Loya MD at [facility] Explanted:Qty: 1 on 09/08/2022 by Kenneth Loya MD at [facility] N/A: Bile Duct [place] [employer] 12/24/2022 [id number] / / [id number] [place] [employer] 10fr 5cm Biliary Stent [id number] - [id number] Implanted:Qty: 1 on 07/06/2022 by Kenneth Loya MD at [facility] Explanted:Qty: 1 on 09/08/2022 by Kenneth Loya MD at [facility] N/A: Bile Duct [place] [employer] 11/16/2023 [id number] / / [id number] [place] [employer] 10fr 7cm Biliary Stent [id number] - [id number] Explanted:Qty: 1 on 04/10/2023 by John De Anda MD at [facility] CLARED [id number] 12/13/2024 [id number] / / [id number] Description:Unable to place despite multiple attempts Insurance [employer] [employer] [facility] [employer] Advance Directives For more information, please contact: [phone] * Full Code (Latest Code Status on [...] 7:36 AM 06/02/2023 3:26 PM Care Teams Foil Wrapper Relationship Specialty Start Date End Date Don Walton PA [address] [facility] [address] [place] [address] PCP - General Physician [employer] 12/28/21
--- OUTSIDE RECORDS SUMMARY | 2024-07-22 14:36 | XMS_ITS | Clinical Summary ---
Author Organization [facility] Address [address] [place] [address] Care Team Providers Care Sleeve Setter Name Role Phone Lamberto Barker MD Primary Care Provider [phone] Allergies Active Allergy Reactions Criticality Noted Date Comments Amoxicillin Unknown High 04/18/2020 Ciprofloxacin Hives Medium 06/02/2023 Patient stated he had reaction to oral cipro. 06/02/23 had redness and hives after IV dose. Penicillins Rash,Angioedema High 05/08/2019 Piperacillin Sod-Tazobactam So Angioedema High 09/17/2019 Medications DULoxetine 30 MG capsule Take 1 capsule (30 mg total) by mouth 2 (two) times daily. 0 Active folic acid 1 MG tablet Take 1 tablet (1 mg total) by mouth daily. Active multi vitamin/minerals tablet Take 1 tablet by mouth daily. 30 tablet 1 Active tiZANidine 4 MG tablet Take 1 tablet (4 mg total) by mouth every 8 (eight) hours as needed (muscle splasms). 1 Active pantoprazole EC 40 MG tablet Take 1 tablet (40 mg total) by mouth daily. Active traZODone 50 MG tablet Take 1-2 tablets (50-100 mg total) by mouth nightly as needed for Sleep. Active acetaminophen 500 MG tablet Take 1 tablet (500 mg total) by mouth every 6 (six) hours as needed for Pain. Active ondansetron 4 MG disintegrating tabletIndications:A cute pancreatitis (HHS/HCC) Take 1 tablet (4 mg total) by mouth every 8 (eight) hours as needed for Nausea. 20 tablet 2 Active amLODIPine (NORVASC) 10 MG tablet Take 1 tablet (10 mg total) by mouth daily. 2 Active gabapentin (NEURONTIN) 300 MG capsule Take 1 capsule (300 mg total) by mouth 3 (three) times daily. 2 Active melatonin 10 MG tablet Take 1 tablet (10 mg total) by mouth nightly as needed for Sleep. Active polyethylene glycol (GLYCOLAX) 17 GM/SCOOP powder Take 17 g by mouth as needed. 2 Active meloxicam (MOBIC) 7.5 MG tablet Take 1 tablet (7.5 mg total) by mouth 2 (two) times daily as needed for Pain. 3 Active fluticasone propionate (FLONASE) 50 MCG/ACT nasal spray 2 sprays by Each Nostril route as needed. SHAKE LIQUID 2 Active tadalafil (CIALIS) 20 MG tablet Take 1 tablet (20 mg total) by mouth daily as needed for Erectile Dysfunction. 3 Active fenofibrate 160 MG tablet Take 1 tablet (160 mg total) by mouth daily. 3 Active CREON 69032-11870 units CAPSULE ENTERIC COATED PARTICLES Take 1 capsule (12,000 units of lipase total) by mouth 3 (three) times daily with meals. 4 Active sildenafil (VIAGRA) 100 MG tablet TAKE 1 TABLET BY MOUTH ONCE DAILY 30 MINUTES-4 HOURS PRIOR TO SEXUAL ACTIVITY 4 Active losartan (COZAAR) 25 MG tablet TAKE 1 TABLET(25 MG) BY MOUTH DAILY 90 tablet 5 Active chlordiazePOXIDE (LIBRIUM) 5 MG capsuleIndications: Alcohol use disorder Take 1 capsule (5 mg total) by mouth 3 (three) times daily as needed (Withdrawal symptoms). 20 capsule 5 08/06/19 25 Active Active Problems Problem Noted Date Diagnosed Date Chest pain 06/04/2023 Overview (06/16/2023): Last Assessment & Plan: Likely from pancreatitis. Also tender to palpation initially so may be a musculoskeletal component from dry heaving. Trops negative. EKG no ischemic changes. He reports hx of AR in the past, unclear circumstances. He had an exercise stress test in spring at an outside facility that he says was normal. Cont ASA. Pancreatic pseudocyst ([facility]) 07/26/2021 Severe sepsis ([facility]) 07/08/2021 Overview (11/04/2022): Last Assessment & [...] Alcohol dependence with unsp ecified alcohol-induced disorder ([facility]) 06/25/2021 Overview (11/04/2022): Last Assessment & [...] has AA resources for discharge. Acute pancreatitis ([facility]) 06/20/2021 Pancreatitis ([facility]) 05/08/2019 Hypertension Tobacco abuse Resolved Problems Problem Noted Date Diagnosed Date Resolved Date Acute pancreatitis ([facility]) 12/28/2020 06/01/2021 Hypokalemia 06/20/2020 12/25/2020 Acute pancreatitis ([facility]) 06/19/2020 12/25/2020 Necrotizing pancreatitis ([facility]) 10/21/2019 12/25/2020 Other constipation 10/21/2019 Encounters Date Type Department Care Team Description 07/20/2024 2:13 PM VICE PRESIDENT OF HUMAN RESOURCES - 07/20/2024 4:18 PM [facility] Emergency [facility] [place] [address] [place] [place] [address] Lizette Shah MD Alcohol Intoxication Discharge Disposition: Left Against Medical Advice 07/20/2024 Travel 07/19/2024 11:53 AM [employer]ICE PRESIDENT [employer] HUMAN [employer]OURCES - 07/19/2024 1:27 PM [facility] Emergency [facility] [place] [place] [address] Lizette Shah MD Alcohol Intoxication Discharge Disposition: Left Against Medical Advice 07/19/2024 Travel 07/06/2024 2:36 AM [employer] - 07/06/2024 6:29 AM [facility] Emergency [facility] [place] [address] [place] [place] [address] Daniel Hitchcock MD Withdrawal- Alcohol Discharge Disposition: Home or Self Care (Routine Discharge) 07/06/2024 Travel from Last 3 Months Immunizations Name Administration Dates Next Due Flucelvax [...] drink = 0.6 oz pur e alcohol) 12 shooters a day Humiliation, Afraid, Rape, and Kick questionnair e [...] How often do you attend chur or judaism services? Never 12/25/2020 Do you belong to any clubs o r organizations such as anglican groups, unions, fraternal or athletic groups, or [...] on to questions 3-9 2 12/25/2020 [facility] - [...] place to sleep or slept in a fci (including now)? No 12/25/2020 Sex and Gender Information Value Date Recorded Sex Assigned at Male 12/25/2020 2:35 AM CDT Legal Sex Male 7:50 PM CDT Gender Identity Male 12/25/2020 2:35 AM CDT Sexual Orientation Straight 12/25/2020 2: 35 AM CDT Last Filed Vital Signs Vital Sign Reading Time Taken Comments Blood Pressure 99/62 07/20/2024 3:00 PM [employer] Pulse 98 07/20/2024 3:00 PM [employer] Temperature 37.1 C (98.8 F) 07/20/2024 2:33 PM [employer] Respiratory Rate 18 07/20/2024 3:00 PM [employer] Oxygen Saturation 93% 07/20/2024 3:00 PM [employer] Inhaled Oxygen Concentration - - Weight 79.2 kg (174 lb 9.7 oz) 07/20/2024 2:15 P M [employer] Height 182.9 cm (6') 07/20/2024 2:15 PM [employer] Body Mass Index 23.68 07/20/2024 2:15 PM [employer] Plan of Treatment Health Maintenance Due Date [...] Vaccines (1 of 2) 10/16/2017 COVID-19 Vaccine ( - 2023-2 5 season) 2024 08/18/2020, 07/28/2020 Influenza Adult (#1) 2024 03/08/2021, 03/03/2019, 02/05/2018 PHQ-2 (Physician [place]) 05/29/2024 Colorectal Cancer Screening FIT/FOBT (1 Year) [...] to maintain pain control General No Nancy Matthews, RN Safety Patient/family will have appropriate support at home upon discharge General No Liliane Erwin, RN Patient will return to prior living situation and remain independent in ADLs upon discharge from hospital General No Elba Chavira, RN Reduce alcohol intake Lifestyle No Lali Cody RN Reduce alcohol intake Lifestyle No Nancy Matthews 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 Procedure Name Priority Date/Time Associated Diagnosis Comments LIPASE STAT 07/20/2024 2:44 PM [employer]ICE [employer]IDENT [employer] MAGNESIUM STAT 07/20/2024 2:44 PM [employer]ICE [employer]IDENT [employer]OURCES COMPREHENSIVE METABOLIC PANEL STAT 07/20/2024 2:44 PM [employer] CBC W/DIFF AUTOMATED STAT 07/20/2024 2:44 PM [employer]ICE [employer]IDENT [employer]AN [employer]OURCES LIPASE STAT 07/19/2024 12:38 PM [employer]ICE [employer]AN [employer] MAGNESIUM STAT 07/19/2024 12:38 PM [employer]ICE [employer]OURCES COMPREHENSIVE METABOLIC PANEL STAT 07/19/2024 12:38 PM [employer] CBC W/DIFF AUTOMATED STAT 07/19/2024 12:38 PM VICE PRES[employer] CT HEAD WO CON STAT 07/06/2024 3:15 AM VICE PRESIDENT [employer] HUMAN [employer]OURCES LIPASE STAT 07/06/2024 3:00 AM [employer]ICE [employer] ETHANOL STAT 07/06/2024 3:00 AM [employer]ICE [employer]OURCES MAGNESIUM STAT 07/06/2024 3:00 AM [employer] TROPONIN, QUANT STAT 07/06/2024 3:00 AM [employer]ICE [employer] HUMAN [employer]OURCES COMPREHENSIVE METABOLIC PANEL STAT 07/06/2024 3:00 AM [employer] CBC W/DIFF AUTOMATED STAT 07/06/2024 3:00 AM [employer]ICE [employer]IDENT [employer] OCCULT BLOOD, FECES Routine 09/15/2019 4 :49 PM CDT from Last 3 Months or Most Recently Relevant to Health Maintenance Results * (ABNORMAL) COMPREHENSIVE METABOLIC PANEL (07/20/2024 2:44 PM [employer]ICE [employer]IDENT [employer]) Only the most recent of3 resultswithin the time period is included. [facility] Signature GLUCOSE 115(H) 70 - 99 MG/DL 07/20/2024 3:19 PM [facility] BUN 7 7 - 18 MG/DL 07/20/2024 3:19 PM [facility] CREATININE S/P/B 0.62(L) 0.7 - 1.3 MG/DL 07/20/2024 3:19 PM [facility] SODIUM S/P/B 139 136 - 145 MMOL/L 07/20/2024 3:19 PM [facility] POTASSIUM S/P/B 3.6 3.5 - 5.1 MMOL/L 07/20/2024 3:19 PM [facility] CHLORIDE S/P/B 106 97 - 115 MMOL/L 07/20/2024 3:19 PM [facility] CO2 24.0 21 - 32 MMOL/L 07/20/2024 3:19 PM [facility] CALCIUM S/P/B 8.8 8.5 - 10.1 MG/DL 07/20/2024 3:19 PM [facility] BILIRUBIN TOTAL S/P/B 0.2 0.2 - 1.2 MG/DL 07/20/2024 3:19 PM [facility] Comment: THIS ASSAY IS NOT RECOMMENDED FOR PATIENTS UNDERGOING TREATMENT WITH ELTROMBOPAG DUE TO THE POTENTIAL FOR FALSELY ELEVATED RESULTS. TOTAL PROTEIN S/P/B 6.9 6.4 - 8.2 G/DL 07/20/2024 3:19 PM [facility] ALBUMIN S/P/B 2.9(L) 3.4 - 5.0 G/DL 07/20/2024 3:19 PM [facility] AST 50(H) 15 - 37 U/L 07/20/2024 3:19 PM [facility] ALT 34 16 - 60 U/L 07/20/2024 3:19 PM [facility] ALKALINE PHOSPHATASE S/P/B 496(H) 50 - 136 U/L 07/20/2024 3:19 PM [facility] ANION GAP 9.0 2 - 10 MMOL/L 07/20/2024 3:19 PM [facility] BUN CREATININE RATIO 11.2 6 - 26 07/20/2024 3:19 PM [facility] A/G RATIO 0.7(L) 1.0 - 2.0 RATIO 07/20/2024 3:19 PM [facility] GFR ESTIMATE >90 >90 ML/MIN/1.7 3 M2 07/20/2024 3:19 PM [facility] Comment: NOTE: eGFR is not calculated for patients <18 years of age or gender unknown. This is an estimated GFR calculation using the new CKD EPI creatinine equation without race and so does not require a correction factor for race. This estimated GFR should not be used for calculating drug doses. 07/20/2024 2:44 PM [employer]ICE PRESIDENT [employer] H[employer]AN RESOURCES us Lizette Shah MD LABORATORY Final Result [facility] [address] [place] [address], [place] [phone] * (ABNORMAL) CBC W/DIFF AUTOMATED (07/20/2024 2:44 PM VICE PRESIDENT [employer] HUMAN [employer]OURCES) Only the most recent of3 resultswithin the time period is included. WBC 6.16 4.5 - 11.0 x10'3/uL 07/20/2024 2:52 PM [facility] RBC 3.76(L) 4.70 - 6.10 x10'6/uL 07/20/2024 2:52 PM [facility] HGB 11.4(L) 14.0 - 18.0 G/DL 07/20/2024 2:52 PM [facility] HCT 34.8(L) 43.0 - 54.0 % 07/20/2024 2:52 PM [facility] MCV 92.6 80.0 - 94.0 FL 07/20/2024 2:52 PM [facility] MCH 30.3 27.0 - 31.0 PG 07/20/2024 2:52 PM [facility] MCHC 32.8 32.0 - 36.0 G/DL 07/20/2024 2:52 PM [facility] RDW 16.5(H) 11.5 - 14.5 % 07/20/2024 2:52 PM [facility] PLT 433(H) 130 - 400 x10'3/uL 07/20/2024 2:52 PM [facility] MPV 8.8(L) 9.3 - 12.2 FL 07/20/2024 2:52 PM [facility] DIFFERENTIAL TYPE AUTOMATED DIFFERENTIAL 07/20/2024 2:52 PM [facility] NEUTROPHILS % 54.6 % 07/20/2024 2:52 PM [facility] LYMPHOCYTES % 31.2 % 07/20/2024 2:52 PM [facility] MONOCYTES % 12.0 % 07/20/2024 2:52 PM [facility] EOSINOPHILS 0.3 % 07/20/2024 2:52 PM [facility] BASOPHILS 1.6 % 07/20/2024 2:52 PM [facility]ICE [employer] [facility] IMMATURE GRANS % 0.3 % 07/20/19 2:52 PM [employer]ICE [employer] [facility] ABS. NEUTROPHILS 3.36 1.80 - 7.70 x10'3/uL 07/20/2024 2:52 PM [employer]ICE [employer] [facility] ABS. LYMPHOCYTES 1.92 1.00 - 4.80 x10'3/uL 07/20/2024 2:52 PM VICE PRES[employer] [facility] ABS. MONOCYTES 0.74 0.30 - 0.82 x10'3/uL 07/20/2024 2:52 PM VICE PRES[employer] [facility] ABS. EOSINOPHILS 0.02(L) 0.04 - 0.54 x10'3/uL 07/20/2024 2:52 PM VICE PRESIDENT [employer] [facility] ABS. BASOPHILS 0.10(H) 0.01 - 0.08 x10'3/uL 07/20/2024 2:52 PM VICE [employer] [facility] ABS. IMMATURE GRANULOCYTES 0.02 0.00 - 0.49 x10'3/uL 07/20/2024 2:52 PM [employer]ICE [employer] [facility] 07/20/2024 2:44 PM [employer]ICE PRES[employer]OURCES us Lizette Shah MD LABORATORY Final Result [facility] [address] [place] [address], * MAGNESIUM (07/20/2024 2:44 PM [employer]ICE [employer]) Only the most recent of3 resultswithin the time period is included. MAGNESIUM 2.2 1.8 - 2.4 MG/DL 07/20/2024 3:19 PM [employer]ICE [employer]IDENT [employer] [facility] 07/20/2024 2:44 PM [employer]ICE [employer] us Lizette Shah MD LABORATORY Final Result [facility] [address] [place] [address], [place] [phone] * LIPASE (07/20/2024 2:44 PM [employer]) Only the most recent of3 resultswithin the time period is included. LIPASE 17 13 - 75 UNITS/L 07/20/2024 3:19 PM [employer]ICE [employer] [facility] 07/20/2024 2:44 PM [employer]ICE PRES[employer] us Lizette Shah MD LABORATORY Final Result Performing Organization Address [facility] de Phone Number [facility] [address] [place] [address], [place] [phone] * CT HEAD WO CON (07/06/2024 3:15 AM VICE PRESIDENT OF HUMAN RESOURCES) Anatomical Region Laterality Modality Head Computed Tomogra phy 07/06/2024 3:13 AM [employer]ICE [employer]OURCES Impressions 07/06/2024 3:16 AM [employer]ICE [employer]IDENT [employer]AN [employer]OURCES IMPRESSION: 1. No acute intracranial abnormality. 2. Mild nonspecific chronic periventricular and deep cerebral white matter microvascular disease and bilateral deep cerebral white matter. This CT exam was performed using one or more of the following dose reduction techniques: automated exposure control, adjustment of the mA and/or kV according to patient size, and/or use of iterative reconstruction technique. Referred By: Interpreted By: Sparkle Monaco MD, 07/06/2024 3:13 AM Narrative 07/06/2024 3:16 AM [employer]ICE PRESIDENT OF HUMAN RESOURCES [facility] [address] [place], [place] [address] EXAMINATION: CT Head without Contrast, Axial Imaging with 2-D Coronal and Sagittal Reconstruction. INDICATION: Fall, detoxification from alcohol. COMPARISON: CT head without contrast 06/02/2021. FINDINGS: No mass, midline shift, intracranial hemorrhage, areas of acute macrovascular ischemia, or acute osseous abnormality. No extra-axial fluid collections. Ventricles and sulci are normal for age. Mild nonspecific patchy hypodensity in the periventricular and deep cerebral white matter in bilateral cerebral hemispheres without edema or mass effect, likely mild nonspecific chronic white matter microvascular disease. Visualized orbits are unremarkable. Anterior nasal septum is deviated to the left with narrowing of the left anterior nasal cavity. Minimal pneumatization of the left middle turbinate. Tiny osteoma in the lateral left frontal sinus and in the anterior upper right frontal sinus. No significant disease in the partially visualized paranasal sinuses or mastoid air cells. Procedure Note Sparkle Monaco MD - 07/06/2024 [facility] [address] [place] [address] EXAMINATION: CT Head without Contrast, Axial Imaging with 2-D Coronal andSagittal Reconstruction. INDICATION: Fall, detoxification from alcohol. COMPARISON: CT head without contrast 06/02/2021. FINDINGS: No mass, midline shift, intracranial hemorrhage, areas of acutemacrovascular ischemia, or acute osseous abnormality. No extra-axial fluidcollections. Ventricles and sulci are normal for age. Mild nonspecificpatchy hypodensity in the periventricular and deep cerebral white matterin bilateral cerebral hemispheres without edema or mass effect, likelymild nonspecific chronic white matter microvascular disease. Visualizedorbits are unremarkable. Anterior nasal septum is deviated to the leftwith narrowing of the left anterior nasal cavity. Minimal pneumatizationof the left middle turbinate. Tiny osteoma in the lateral left frontalsinus and in the anterior upper right frontal sinus. No significantdisease in the partially visualized paranasal sinuses or mastoid aircells. IMPRESSION: 1. No acute intracranial abnormality. 2. Mild nonspecific chronic periventricular and deep cerebral whitematter microvascular disease and bilateral deep cerebral white matter. This CT exam was performed using one or more of the following dosereduction techniques: automated exposure control, adjustment of the mAand/or kV according to patient size, and/or use of iterativereconstruction technique. Referred By: Interpreted By: Sparkle Monaco MD, 07/06/2024 3:13 AM us Daniel Hitchcock MD CT Final Resul t * TROPONIN, QUANT (07/06/2024 3:00 AM VICE PRESIDENT OF HUMAN RESOURCES) [facility] TROPONIN I HIGH SENSITIVITY 9 <79 ng/L 07/06/2024 3:58 AM [employer]ICE [employer]IDENT [employer] HUM[employer] [facility] Comment: HIGH DOSES OF BIOTIN, TROPONIN-SPECIFIC AUTOANTIBODIES, AND ANTIBODY THERAPY CONTAINING HAMA MAY INTERFERE WITH THIS TEST RESULT. CORRELATION TO CLINICAL HISTORY AND PRESENTATION RECOMMENDED. 07/06/2024 3:00 AM VICE PRESIDENT OF HUMAN RESOURCES us Daniel Hitchcock MD LABORATORY Final Resul t Performing Organization Address City/[facility]/ZIP Co de Phone Number [facility] [address] [place] [address], * (ABNORMAL) ETHANOL (07/06/2024 3:00 AM VICE PRESIDENT OF HUMAN RESOURCES) [facility] ALCOHOL S/P/B 0.158(H) <0.003 G/DL 07/06/2024 3:58 AM VICE [employer]IDENT [employer]UM[employer] [facility] 07/06/2024 3:00 AM [employer]ICE PRESIDENT [employer] HUMAN [employer]OURCES us Daniel Hitchcock MD LABORATORY Final Resul t [facility] [address] [place] [address], [place] [phone] * OCCULT BLOOD, FECES (09/15/2019 4:49 PM CDT) [facility] OCCULT BLOOD FECAL NEGATIVE 09/15/2019 5:56 PM CDT [facility] STOOL SPECIMEN / Unknown 09/15/2019 4:49 PM CDT González Morataya PA-C BODY FLUIDS AND STOOLS ORDERAB LES Final Result [facility] [address] [place] [address], from Last 3 Months or Most Recently [...] 11:31 PM 12/26/2020 7:51 PM Care Teams Sleeve Setter Relationship Specialty Start Date End Date Lamberto Barker MD [address] [place] [address] PCP - General INTERNAL MEDICINE 05/08/19
--- OUTSIDE RECORDS SUMMARY | 2024-07-22 14:36 | XMS_ITS | Encounter Summary ---
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
--- OUTSIDE RECORDS SUMMARY | 2024-07-22 14:36 | XMS_ITS | Clinical Summary ---
Author Organization [facility] Address [address] [place] [address] Care Team Providers Care Electromedical Equipment Repairer Name Role Phone Don Walton Primary Care Provider Allergies Active Allergy Reactions Criticality Noted Date Comments Ciprofloxacin Hives Medium 06/02/2023 Patient stated he has previously tolerated PO. 06/02/23 had redness and hives after IV dose. Penicillins Rash Medium 05/08/2019 Vnwpsovyqeqw-Xzijzcdiif-Shy trs Angioedema High 09/17/[address] [...] daily 30 patch 01/12/20 22 Active multivit xyuivege-fwpr-TY-c alcium (THERA-M) 9 mg iron-400 mcg tabletIndications: [...] 06/10/2023 Assessment & Plan (06/12/2023 2:18 PM LEAD CONSULTANT): Patient reports feeling constipated, gassy and bloated. [...] 06/08/2023 Assessment & Plan (06/09/2023 1:55 PM LEAD CONSULTANT): Resolved. Acute pancreatitis, unspecif ied complication status, unspecified pancreatitis type 06/04/2023 Assessment & Plan (06/05/2023 12:45 PM LEAD CONSULTANT): Longstanding bouts of pancreatitis originally from EtOH [...] 06/04/2023 Assessment & Plan (06/05/2023 12:48 PM LEAD CONSULTANT): Likely from pancreatitis. Also tender to palpation initially so may be a musculoskeletal component from dry heaving. Trops negative. EKG no ischemic changes. He reports hx of [place] in the past, unclear circumstances. He had an exercise stress test in spring at an outside facility that he says was normal. Cont ASA. Gram-negative bacteremia 04/11/2023 Assessment & Plan (04/13/2023 7:02 PM LEAD CONSULTANT): - due to cholangitis - BCx + for E coli and K. Pneumoniae - repeat BCx drawn 04/11, ngtd - pansensitive organisms - d/c home today with flagyl/cipro Cholangitis 04/10/2023 Assessment & Plan (04/12/2023 6:21 PM LEAD CONSULTANT): - Improving - 04/10 ERCP - removal of two migrates stents with biliary obstruction and replaced with 2 new stents in biliary stricture - PRN analgesics and antiemetics Assessment & Plan (04/10/2023 2:40 AM LEAD CONSULTANT): -meets [place] criteria for acute cholangitis based [...] 01/04/2022 Assessment & Plan (06/13/2023 2:35 PM LEAD CONSULTANT): Recently admitted from 06/04-06/05/23 after ERCP on [...] (01/05/2022): Added automatically from request for surgery [id number] Assessment & Plan (04/11/2023 3:57 PM LEAD CONSULTANT): - improving -2/2 stent migration and resultant biliary obstruction Assessment & Plan (04/10/2023 2:27 AM LEAD CONSULTANT): -2/2 stent migration and resultant biliary obstruction -mgmt as above -repeat HFP in AM 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 Overview (11/30/2021): Added automatically from request for surgery [id number] Encounter for replacement of biliary stent 11/30 Overview (11/30/2021): Added automatically from request for surgery [id number] Alcohol-induced chronic pancreatitis (CMS/HCC) 0 07/26/2021 Pancreatic pseudocyst 07/26/2021 Severe sepsis 07/08/2021 Assessment & Plan (07/13/2021 9:43 AM LEAD CONSULTANT): Pt elevated temp on 07/07 overnight 38.1 [...] infection Assessment & Plan (07/12/2021 9:40 AM LEAD CONSULTANT): Pt elevated temp on 07/07 overnight 38.1 [...] infection Assessment & Plan (07/11/2021 10:55 AM LEAD CONSULTANT): Pt elevated temp on 2 overnight 38.1 [...] bed Assessment & Plan (07/10/2021 9:10 AM LEAD CONSULTANT): Pt elevated temp on 07/07 overnight 38.1 [...] daily Assessment & Plan (07/09/2021 2:23 PM LEAD CONSULTANT): Pt elevated temp on 2 overnight 38.1 [...] daily Assessment & Plan (07/08/2021 1:53 PM LEAD CONSULTANT): Pt elevated temp overnight 38.1 max, hypotensive [...] 07/07/2021 Assessment & Plan (07/13/2021 9:43 AM LEAD CONSULTANT): Dobbhoff placed 2/10, tube feeding to initiated Osmolite 1.5 at 55mL/hr over 24h via [place] tube continuous via pump. Flush with 150mL water q4h. Now at goal of 55cc/hr. Can cycle at home as instructed. Will continue TF until follow up with GI as outpatient Assessment & Plan (07/12/2021 9:39 AM LEAD CONSULTANT): Dobbhoff placed 2/10, tube feeding to initiated Osmolite 1.5 at 55mL/hr over 24h via [place] tube continuous via pump. Flush with 150mL water q4h. Now at goal of 55cc/hr. Can cycle at home as instructed. Will continue TF until follow up with GI as outpatient Assessment & Plan (07/11/2021 10:55 AM LEAD CONSULTANT): Dobbhoff placed 2/10, tube feeding to initiated [...] Phos Assessment & Plan (07/10/2021 9:08 AM LEAD CONSULTANT): Dobbhoff placed 07/08, tube feeding to initiated [...] Phos Assessment & Plan (07/09/2021 2:25 PM LEAD CONSULTANT): Dobbhoff placed 07/08, tube feeding to initiated [...] prn Assessment & Plan (07/08/2021 1:11 PM LEAD CONSULTANT): Dobbhoff placed 07/08, tube feeding to initiate TF recommendations: Goal: Osmolite 1.5 at 55mL/hr over 24h via [place] tube continuous via pump. Flush with 150mL water q4h. Initiate TF at 10mL/hr and increase by 10mL q4h until goal rate is reached Chronic pancreatitis, unspecified pancreatitis t ype 07/06/2021 Assessment & Plan (07/13/2021 9:42 AM LEAD CONSULTANT): Ongoing acute episode of (developing) chronic pancreatitis. [...] home Assessment & Plan (07/12/2021 9:38 AM LEAD CONSULTANT): Ongoing acute episode of (developing) chronic pancreatitis. [...] 07/13 Assessment & Plan (07/11/2021 10:53 AM LEAD CONSULTANT): Ongoing acute episode of (developing) chronic pancreatitis. [...] discharge Assessment & Plan (07/10/2021 9:07 AM LEAD CONSULTANT): Ongoing acute episode of developing chronic pancreatitis. [...] feedings Assessment & Plan (07/09/2021 2:30 PM LEAD CONSULTANT): Ongoing acute episode of chronic pancreatitis. Just [...] CTM Assessment & Plan (07/08/2021 1:49 PM LEAD CONSULTANT): Ongoing acute episode of chronic pancreatitis. Just [...] plan Assessment & Plan (07/07/2021 11:22 AM LEAD CONSULTANT): Ongoing acute episode of chronic pancreatitis. Just [...] plan Assessment & Plan (07/06/2021 5:30 PM LEAD CONSULTANT): Ongoing acute episode of chronic pancreatitis. Just [...] 07/06/2021 Assessment & Plan (07/13/2021 9:42 AM LEAD CONSULTANT): Likely ATN related to hypotensive episode. Cr peaked at Cr at 2.31, now back to baseline after aggressive IVF and now tolerating TF. Assessment & Plan (07/12/2021 9:36 AM LEAD CONSULTANT): Likely ATN related to hypotensive episode. Cr peaked at Cr at 2.31, now back to baseline after aggressive IVF and now tolerating TF. Assessment & Plan (07/11/2021 10:54 AM LEAD CONSULTANT): Likely ATN related to hypotensive episode. Cr peaked at Cr at 2.31, now back to baseline after aggressive IVF, continue to monitor bmp, continue fluids Assessment & Plan (07/10/2021 9:08 AM LEAD CONSULTANT): Likely ATN related to hypotensive episode. Cr peaked at Cr at 2.31, now back to baseline after aggressive IVF, continue to monitor bmp, continue fluids Assessment & Plan (07/09/2021 2:29 PM LEAD CONSULTANT): Cr at baseline after aggressive IVF, continue to monitor bmp, continue fluids Assessment & Plan (07/08/2021 1:10 PM LEAD CONSULTANT): Cr baseline 0.8 now up to 1.3 on arrival due to po intolerance Aggressive IVF will monitor urine output Today net fluid intake 191 Cr trended up to 2.31 continue aggressive fluids Daily bmp Continue IVF Assessment & Plan (07/07/2021 11:19 AM LEAD CONSULTANT): Cr baseline 0.8 now up to 1.3 on arrival due to po intolerance Aggressive IVF will monitor urine output Today net fluid intake 191 Cr 1.05 improving with fluids Daily bmp Continue IVF Assessment & Plan (07/06/2021 5:39 PM LEAD CONSULTANT): Cr baseline 0.8 now up to 1.3 on arrival due to po intolerance Aggressive IVF will monitor urine output Alcohol dependence 06/25/2021 Assessment & Plan (06/07/2023 5:01 AM LEAD CONSULTANT): Last drink on [place] and he reports being motivated to remain [...] program Assessment & Plan (07/13/2021 9:42 AM LEAD CONSULTANT): Has a long history of alcohol use [...] Group Assessment & Plan (07/12/2021 9:36 AM LEAD CONSULTANT): Has a long history of alcohol use [...] Group Assessment & Plan (07/11/2021 10:54 AM LEAD CONSULTANT): Has a long history of alcohol use [...] Group Assessment & Plan (07/10/2021 9:05 AM LEAD CONSULTANT): Has a long history of alcohol use [...] Group Assessment & Plan (07/09/2021 2:33 PM LEAD CONSULTANT): Has a long history of alcohol use [...] Group Assessment & Plan (07/08/2021 1:06 PM LEAD CONSULTANT): Has a long history of alcohol use with dependence. He states he has not had a drink since before his ERCP 06/22/2021 and has been on Vivitrol injections. His ethanol level on arrival to the ED is negative Plan to continue EtOH cessation and support with outpatient naltrexone therapy. Assessment & Plan (07/07/2021 11:13 AM LEAD CONSULTANT): Has a long history of alcohol use with dependence. He states he has not had a drink since before his ERCP 06/22/2021 and has been on Vivitrol injections. His ethanol level on arrival to the ED is negative Plan to continue EtOH cessation and support with outpatient naltrexone therapy. Assessment & Plan (07/06/2021 5:22 PM LEAD CONSULTANT): Has a long history of alcohol use with dependence. He states he has not had a drink since before his ERCP 06/22/2021 and has been on Vivitrol injections. His ethanol level on arrival to the ED is negative Plan to continue EtOH cessation and support with outpatient naltrexone therapy Assessment & Plan (06/28/2021 11:39 AM LEAD CONSULTANT): Long standing hx of alcohol dependence with [...] needed Assessment & Plan (06/27/2021 11:47 AM LEAD CONSULTANT): Long standing hx of alcohol dependence with [...] needed Assessment & Plan (06/26/2021 11:59 AM LEAD CONSULTANT): Long standing hx of alcohol dependence with [...] 06/25/2021 Assessment & Plan (06/07/2023 5:06 AM LEAD CONSULTANT): Markedly hypertensive on ED arrival in the setting of pain -Continue home Amlodipine 10 mg qday and losartan 25 mg qday Assessment & Plan (06/05/2023 12:47 PM LEAD CONSULTANT): Hypertensive initially from pain. Improved today. Cont home meds. Assessment & Plan (04/12/2023 6:21 PM LEAD CONSULTANT): -continue norvasc Assessment & Plan (04/10/2023 2:31 AM LEAD CONSULTANT): -resume norvasc in AM Assessment & Plan (01/11/2022 11:23 AM CDT): Continue norvasc Assessment & Plan (01/10/2022 11:40 AM CDT): Continue norvasc Assessment & Plan (07/13/2021 9:43 AM LEAD CONSULTANT): Continue to hold home lisinopril on account of recent hypotension/JOSE. With low normotensive BP will discontinue lisinopril. Follow up with PCP in 2-4 weeks to re evaluate restarting if needed Assessment & Plan (07/12/2021 9:38 AM LEAD CONSULTANT): Continue to hold home lisinopril on account of recent hypotension/JOSE. BP normal, may not require lisinopril on discharge. Assessment & Plan (07/11/2021 10:54 AM LEAD CONSULTANT): Continue to hold home lisinopril on account of recent hypotension/JOSE. BP normal, may not require lisinopril on discharge. Assessment & Plan (07/10/2021 9:06 AM LEAD CONSULTANT): Continue to hold home lisinopril on account of recent hypotension Assessment & Plan (07/09/2021 2:32 PM LEAD CONSULTANT): Continue to hold home lisinopril until more stable BP Assessment & Plan (07/08/2021 1:06 PM LEAD CONSULTANT): BP hypotensive overnight hold antihypertensives at this time. Assessment & Plan (07/07/2021 11:15 AM LEAD CONSULTANT): BP on remain normotensive Continue lisinopril and pain control Assessment & Plan (07/06/2021 5:30 PM LEAD CONSULTANT): BP on arrival normotensive Continue lisinopril and pain control Assessment & Plan (06/28/2021 11:39 AM LEAD CONSULTANT): Continue home lisinopril 40 mg -Monitor BP -BP stable Assessment & Plan (06/27/2021 11:48 AM LEAD CONSULTANT): Continue home lisinopril 40 mg -Monitor BP/Cr -BP stable Assessment & Plan (06/25/2021 4:55 PM LEAD CONSULTANT): Continue home lisinopril 40 mg -Monitor BP/Cr -Daily BMP Tobacco abuse 06/25/2021 Major depressive disorder 06/25/2021 Assessment & Plan (06/07/2023 5:07 AM LEAD CONSULTANT): Continue home duloxetine 30 mg BID and trazodone 50 mg qhs Assessment & Plan (06/04/2023 11:58 AM LEAD CONSULTANT): Cont home meds Assessment & Plan (01/11/2022 11:23 AM CDT): Continue duloxetine scheduled and trazodone prn Assessment & Plan (01/10/2022 11:40 AM CDT): Continue duloxetine scheduled and trazodone prn Assessment & Plan (07/13/2021 9:43 AM LEAD CONSULTANT): Most certainly contributing to his long standing alcohol use. Continue home meds duloxetine and trazodone Assessment & Plan (07/12/2021 9:38 AM LEAD CONSULTANT): Most certainly contributing to his long standing alcohol use. Continue home meds duloxetine and trazodone Assessment & Plan (07/11/2021 10:54 AM LEAD CONSULTANT): Most certainly contributing to his long standing alcohol use. Continue home meds duloxetine and trazodone Assessment & Plan (07/10/2021 9:06 AM LEAD CONSULTANT): Most certainly contributing to his long standing alcohol use. Continue home meds duloxetine and trazodone Assessment & Plan (07/09/2021 2:30 PM LEAD CONSULTANT): Most certainly contributing to his long standing alcohol use now with cessation Continue home meds duloxetine and trazodone Assessment & Plan (07/08/2021 1:09 PM LEAD CONSULTANT): Most certainly contributing to his long standing alcohol use now with cessation Continue home meds duloxetine and trazodone Assessment & Plan (07/07/2021 11:16 AM LEAD CONSULTANT): Most certainly contributing to his long standing alcohol use now with cessation Continue home meds duloxetine and trazodone Assessment & Plan (07/06/2021 5:32 PM LEAD CONSULTANT): Most certainly contributing to his long standing alcohol use now with cessation Continue home meds duloxetine and trazodone Assessment & Plan (06/28/2021 11:39 AM LEAD CONSULTANT): Continue home Trazodone 50 mg, Cymbalta 30 mg Resume Biofeedback at discharge Assessment & Plan (06/27/2021 11:48 AM LEAD CONSULTANT): Continue home Trazodone 50 mg, Cymbalta 30 mg Resume Biofeedback at discharge Assessment & Plan (06/25/2021 4:57 PM LEAD CONSULTANT): Continue home Trazodone 50 mg, Cymbalta 30 mg Resume Biofeedback at discharge Pancreatic duct obstruction 06/11/2021 Overview (06/11/2021): Added automatically from request for surgery [id number] Abdominal pain 06/11/2021 Overview (06/11/2021): Added automatically from request for surgery [id number] Necrotizing pancreatitis 10/21/2019 Therapeutic opioid induced constipation 10/21/19 20 Assessment & Plan (07/13/2021 9:44 AM LEAD CONSULTANT): Continue bowel regimen Assessment & Plan (07/12/2021 9:41 AM LEAD CONSULTANT): Bowel regimen ordered without BM. Will titrate bowel regimen Assessment & Plan (07/11/2021 10:58 AM LEAD CONSULTANT): Bowel regimen ordered Assessment & Plan (06/28/2021 11:39 AM LEAD CONSULTANT): Pt states no BM for the past week. Likely due to decrease intake and vomiting, possible contribution from opioids -daily bowel regimen, had BM Monday Assessment & Plan (06/27/2021 11:48 AM LEAD CONSULTANT): Pt states no BM for the past week. Likely due to decrease intake and vomiting, possible contribution from opioids -daily bowel regimen Assessment & Plan (06/26/2021 12:00 PM LEAD CONSULTANT): Pt states no BM for the past week. Likely due to decrease intake and vomiting, possibly contribution from opioids -daily bowel regimen -clear liquid diet Acute pancreatitis 05/08/2019 Assessment & Plan (06/28/2021 11:38 AM LEAD CONSULTANT): Hx of chronic pancreatis starting 3 years [...] prioritized. Assessment & Plan (06/27/2021 11:46 AM LEAD CONSULTANT): Hx of chronic pancreatis starting 3 years [...] prioritized. Assessment & Plan (06/26/2021 11:59 AM LEAD CONSULTANT): Hx of chronic pancreatis starting 3 years [...] 04/11/2023 Assessment & Plan (04/10/2023 2:38 AM LEAD CONSULTANT): -migrated stent likely etiology of presenting symptoms and lab, CT findings -will likely need ERCP for stent exchange on Monday Metabolic acidosis, increased anion gap (IAG) 06/25/1907/09/2021 Assessment & Plan (07/09/2021 2:31 PM LEAD CONSULTANT): Dobbhoff placed 07/08, to start tube feeding TF recommendations: Goal: Osmolite 1.5 at 55mL/hr over 24h via [place] tube continuous via pump. Flush with 150mL water q4h. Initiate TF at 10mL/hr and increase by 10mL q4h until goal rate is reached Assessment & Plan (07/08/2021 1:49 PM LEAD CONSULTANT): Due to starvation in the setting of [...] reached Assessment & Plan (07/07/2021 11:16 AM LEAD CONSULTANT): Due to starvation in the setting of intolerance to PO for the last 3-4 days. Will provide aggressive IVF Continue to discuss enteral feedings with the patient going forward, currently pt is refusing, GI will readdress with pt today with goal for placement today should pt agree. Change IVF to D5LR Assessment & Plan (07/06/2021 5:38 PM LEAD CONSULTANT): Due to starvation in the setting of intolerance to PO for the last 3-4 days. Will provide aggressive IVF Continue to discuss enteral feedings with the patient going forward Assessment & Plan (06/28/2021 11:39 AM LEAD CONSULTANT): Likely dehydration from pancreatitis, n/v and poor intake. Heme concentrated hgb 14.9 (baseline 8-9), wbc 14.4 no source of infection likely heme concentrated, anion gap 20, UA ketone +1. Resolved with IVF Assessment & Plan (06/27/2021 11:47 AM LEAD CONSULTANT): Likely dehydration from pancreatitis, n/v and poor intake. Heme concentrated hgb 14.9 (baseline 8-9), wbc 14.4 no source of infection likely heme concentrated, anion gap 20, UA ketone +1. Resolved with IVF Assessment & Plan (06/26/2021 12:00 PM LEAD CONSULTANT): Likely dehydration from pancreatitis, n/v and poor [...] drink = 0.6 oz pur e alcohol) [facility] Utilities Answer Date Recorded In the past 12 months has th e [employer], gas, oil, or water [employer] threatened to shut off services in your [...] week 09/21/2023 How often do you attend [facility] or mandaen services? 1 to 4 times per year 09/21/2023 Do you belong to any clubs o r organizations such as advent groups, unions, fraternal or athletic groups, or [...] place to sleep or slept in a prison (including now)? No 09/21/2023 Personal Safety Answer Date Recorded Have you ever been in or are you currently in a harmful physical or emotional relationship or is someone making you feel afraid or unsafe? Denies 01/10/2024 Sex and Gender Information Value Date Recorded Sex Assigned at Not on file Legal Sex Male 1:58 AM LEAD CONSULTANT Gender Identity Not on file Sexual Orientation [...] C Screening 1965 Prostate Cancer Screening-PSA 1965 Hepatitis B Screening 10/16/1985 Regular Well Visit/Exam 18-64 10/16/1985 Pneumococcal vaccine <65 (1 of 2 - PCV) 10/16/1986 DTaP/Tdap/Td Vaccine (1 - Tdap) 07/02/1998 9 Zoster Vaccine (1 of 2) 10/16/2017 Covid-19 Vaccine (3 - 2023-2 5 season) 2024 08/18/2020, 07/28/2020 Influenza Vaccine (#1) 2024 , 03/03/2019, 03/03/2019, Additional history exists Medical Devices Implanted Type Area Conference Assistant Device Identifier Shelf Expiration Date Model / Serial / Lot [employer] Kemal 8.5 Fr Nasal Biliary Catheter [id number] - [id number] Implanted:Qty: 1 on 01/26/2022 by Kenneth Loya MD at [facility] Catheter [employer] Kemal 06/22/2024 [id number] / / [id number] [employer] Kemal 10fr 5cm Biliary Double Pigtail Stent [id number] - [id number] Implanted:Qty: 1 on 09/21/2023 by Kenneth Loya MD at [facility] Stent N/A: Bile Duct [employer] Kemal 08/14/2025 [id number] / / [id number] [employer] Kemal 10fr 5cm Biliary Stent [id number] - [id number] Implanted:Qty: 1 on 09/21/2023 by Kenneth Loya MD at [facility] Stent N/A: Bile Duct [employer] Kemal 07/03/2025 [id number] / / [id number] [employer] Kemal 10fr 5cm Biliary Double Pigtail Stent [id number] - [id number] Implanted:Qty: 1 on 09/21/2023 by Kenneth Loya MD at [facility] Stent N/A: Bile Duct [employer] Kemal 08/23/2025 [id number] / / [id number] [employer] Kemal 10fr 5cm Biliary Double Pigtail Stent [id number] - [id number] Implanted:Qty: 1 on 09/21/2023 by Kenneth Loya MD at [facility] Stent N/A: Bile Duct [employer] Kemal 08/23/2025 [id number] / / [id number] [employer] Kemal 10fr 5cm Biliary Double Pigtail Stent [id number] - [id number] Implanted:Qty: 1 on 09/21/2023 by Kenneth Loya MD at [facility] Stent N/A: Bile Duct [employer] Kem[employer] 08/14/2025 [id number] / / [id number] [employer] Kemal 10fr 7cm Biliary Stent [id number] - [id number] Implanted:Qty: 1 on 04/10/2023 by John De Anda MD at [facility] [employer] Kem[employer] [id number] 12/13/2024 [id number] / / [id number] [employer] Kemal 10fr 7cm Biliary Stent [id number] - [id number] Implanted:Qty: 1 on 04/10/2023 by John De Anda MD at [facility] [employer] Kemal [id number] 02/07/2025 [id number] / / [id number] Explanted Type Area Conference Assistant Device Identifier Shelf Expiration Date Model / Serial / Lot [employer] [id number] Cotton-Young 10fr 7cm Taper Tip Guidewire Proximal Distal Flap - [id number] Implanted:Qty: 1 on 08/04/2021 by Kenneth Loya MD at [facility] Explanted:Qty: 1 on 08/30/2021 at [facility] Stent N/A: Bile Duct [employer] 01/28/2024 [id number] / / [id number] Axios 10 X 10 Stent Delivery System [id number] - [id number] Implanted:Qty: 1 on 08/04/2021 by Kenneth Loya MD at [facility] Explanted:Qty: 1 on 08/30/2021 at [facility] Stent N/A: Bile Duct [employer] Kemal 10/13/2022 [id number] / / [id number] [employer] Geenen 7fr 7cm Positioning Sleeve Push Catheter Guidewire [id number] - [id number] Implanted:Qty: 1 on 08/30/2021 at [facility] Explanted:Qty: 1 on 11/01/2021 by Kenneth Loya MD at [facility] Stent N/A: Pancreas [employer] 11/06/2023 [id number] / / [id number] [employer] Kemal 10fr 5cm Biliary Stent [id number] - [id number] Implanted:Qty: 1 on 01/26/2022 by Kenneth Loya MD at [facility] Explanted:Qty: 1 on 04/06/2022 by Kenneth Loya MD at [facility] Stent [employer] 11/16/2023 [id number] / / [id number] [employer] Advanix Naviflex 7fr 9cm Radiopaque [place] Endo Marker Color Coded [id number] - [id number] Implanted:Qty: 1 on 01/26/2022 by Kenneth Loya MD at [facility] Explanted:Qty: 1 on 04/06/2022 at [facility] Stent [employer] 04/16/2023 [id number] / / [id number] [employer] Advanix 8.5fr 7cm Rapid Exchange Temporary [place] Stent [id number] - [id number] Implanted:Qty: 1 on 04/06/2022 by Kenneth Loya MD at [facility] Explanted:Qty: 1 on 07/06/2022 by Kenneth Loya MD at [facility] Stent N/A: Pancreas [employer] 10/26/2023 [id number] / / [id number] [employer] Advanix 8.5fr 7cm Rapid Exchange Temporary [place] Stent [id number] - [id number] Implanted:Qty: 1 on 04/06/2022 by Kenneth Loya MD at [facility] Explanted:Qty: 1 on 07/06/2022 by Kenneth Loya MD at [facility] Stent N/A: Pancreas [employer] 10/26/2023 [id number] / / [id number] [employer] 10fr 5cm Biliary Stent [id number] - [id number] Implanted:Qty: 1 on 09/08/2022 by Kenneth Loya MD at [facility] Explanted:Qty: 1 on 11/03/2022 by Kenneth Loya MD at [facility] Stent N/A: Bile Duct [employer] 08/07/2024 [id number] / / [id number] [employer] 10fr 5cm Biliary Stent [id number] - [id number] Implanted:Qty: 1 on 09/08/2022 by Kenneth Loya MD at [facility] Explanted:Qty: 1 on 11/03/2022 by Kenneth Loya MD at [facility] Stent N/A: Bile Duct [employer] 05/04/2024 [id number] / / [id number] [employer] [place] Flexi-Stent 7fr 7cm Small Pigtail Flexible .035in Stent [id number] - [id number] Implanted:Qty: 1 on 09/08/2022 by Kenneth Loya MD at [facility] Explanted:Qty: 1 on 11/03/2022 by Kenneth Loya MD at [facility] Stent N/A: Bile Duct [employer] 05/28/2027 [id number] / / [id number] [employer] Geenen 8.5fr 9cm Drain Obstructed Positioning Sleeve Pushing [id number] - [id number] Implanted:Qty: 1 on 04/06/2022 by Kenneth Loya MD at [facility] Explanted:Qty: 1 on 01/05/2023 by Kenneth Loya MD at [facility] Stent N/A: Pancreas [employer] 05/03/2024 [id number] / / [id number] [place] [facility] Flexi-Stent 7fr 7cm Small Pigtail Flexible .035in Stent [id number] - [id number] Implanted:Qty: 1 on 11/03/2022 by Kenneth Loya MD at [facility] Explanted:Qty: 1 on 01/05/2023 by Kenneth Loya MD at [facility] Stent N/A: Pancreas [employer] 05/28/2027 [id number] / / [id number] [employer] Kemal 10fr 5cm Biliary Stent [id number] - [id number] Implanted:Qty: 1 on 11/03/2022 by Kenneth Loya MD at [facility] Explanted:Qty: 1 on 01/05/2023 at [facility] Stent N/A: Bile Duct [employer] Kemal 08/15/2024 [id number] / / [id number] [employer] Cotton-Young 10fr 5cm Taper Tip Soft Proximal Distal Flap Gentle [id number] - [id number] Implanted:Qty: 1 on 11/03/2022 by Kenneth Loya MD at [facility] Explanted:Qty: 1 on 01/05/2023 by Kenneth Loya MD at [facility] Stent N/A: Bile Duct [employer] 08/10/2025 [id number] / / [id number] [employer] [facility] [place] Flexi-Stent 4fr 7cm Small Pigtail Flexible .025in Stent [id number] - [id number] Implanted:Qty: 1 on 01/05/2023 by Kenneth Loya MD at [facility] Explanted:Qty: 1 on 06/02/2023 at [facility] Stent N/A: Pancreas [employer] 07/27/2027 [id number] / / [id number] Description:Not present on t his procedure [employer] Kemal 10fr 7cm Biliary Stent [id number] - [id number] Implanted:Qty: 1 on 01/05/2023 by Kenneth Loya MD at [facility] Explanted:Qty: 1 on 06/02/2023 by Jero Soto MD at [facility] Stent N/A: Bile Duct [employer] 12/13/2024 [id number] / / [id number] [employer] Kemal 10fr 7cm Biliary Stent [id number] - [id number] Implanted:Qty: 1 on 01/05/2023 by Kenneth Loya MD at [facility] Explanted:Qty: 1 on 06/02/2023 by Jero Soto MD at [facility] Stent N/A: Bile Duct [employer] 12/13/2024 [id number] / / [id number] [employer] Kemal 10fr 5cm Biliary Double Pigtail Stent [id number] - [id number] Implanted:Qty: 1 on 06/02/2023 by Kenneth Loya MD at [facility] Explanted:Qty: 1 on 09/21/2023 by Kenneth Loya MD at [facility] Stent N/A: Bile Duct [employer] 04/30/2025 [id number] / / [id number] [employer] Kemal 10fr 5cm Biliary Double Pigtail Stent [id number] - [id number] Implanted:Qty: 1 on 06/02/2023 by Kenneth Loya MD at [facility] Explanted:Qty: 1 on 09/21/2023 by Kenneth Loya MD at [facility] Stent N/A: Bile Duct [employer] 04/30/2025 [id number] / / [id number] [employer] 10fr 5cm Biliary Stent [id number] - [id number] Implanted:Qty: 1 on 06/02/2023 by Kenneth Loya MD at [facility] Explanted:Qty: 1 on 09/21/2023 by Kenneth Loya MD at [facility] Stent N/A: Bile Duct [employer] 02/28/2025 [id number] / / [id number] [employer] Kem[employer] 10fr 5cm Biliary Double Pigtail Stent [id number] - [id number] Implanted:Qty: 1 on 06/02/2023 by Kenneth Loya MD at [facility] Explanted:Qty: 1 on 09/21/2023 by Kenneth Loya MD at [facility] Stent N/A: Bile Duct [employer] 04/30/2025 [id number] / / [id number] [employer] [id number] Advanix 10fr 5cm Rapid Exchange Temporary [place] Stent - [id number] Implanted:Qty: 1 on 06/18/2021 by Kenneth Loya MD at [facility] Explanted:Qty: 1 on 08/30/2021 at [facility] [employer] 06/30/2022 [id number] / / [id number] Description:Removed prior [employer] Advanix Od10 Fr L7 Cm 1; Temporary Duodenal Bend Stent Biliary Pl [id number] - [id number] Implanted:Qty: 1 on 08/30/2021 at [facility] Explanted:Qty: 1 on 11/01/2021 by Kenneth Loya MD at [facility] N/A: Bile Duct [employer] 06/25/2022 [id number] / / [id number] [employer] Advanix Naviflex 10fr 9cm Lead Joana Radiopaque Flexible [id number] - [id number] Implanted:Qty: 1 on 11/01/2021 by Kenneth Loya MD at [facility] Explanted:Qty: 1 on 01/05/2022 by Contreras Girard MD at [facility] N/A: Pancreas [employer] 07/18/2022 [id number] / / [id number] 10fr 5cm Biliary Stent [id number] - [id number] Implanted:Qty: 1 on 11/01/2021 by Kenneth Loya MD at [facility] Explanted:Qty: 1 on 01/05/2022 at [facility] N/A: Bile Duct [employer] 08/12/2023 [id number] / / [id number] 10fr 7cm Biliary Stent [id number] - [id number] Implanted:Qty: 1 on 11/01/2021 by Kenneth Loya MD at [facility] Explanted:Qty: 1 on 01/05/2022 by Contreras Girard MD at [facility] N/A: Bile Duct [employer] 08/23/2023 [id number] / / [id number] [employer] Cotton-Young 10fr 5cm Taper Tip Soft Proximal Distal Flap Gentle [id number] - [id number] Implanted:Qty: 1 on 01/05/2022 by Contreras Girard MD at [facility] Explanted:Qty: 1 on 01/26/2022 at [facility] N/A: Bile Duct [employer] 05/07/2022 [id number] / / [id number] [employer] Advanix 7fr 7cm Lead Joana Radiopaque [place] Endo Marker Drainage [id number] - [id number] Implanted:Qty: 1 on 07/06/2022 by Kenneth Loya MD at [facility] Explanted:Qty: 1 on 09/08/2022 by Kenneth Loya MD at [facility] N/A: Pancreas [employer] 05/03/2023 [id number] / / [id number] [employer] 10fr 5cm Biliary Stent [id number] - [id number] Implanted:Qty: 1 on 07/06/2022 by Kenneth Loya MD at [facility] Explanted:Qty: 1 on 09/08/2022 by Kenneth Loya MD at [facility] N/A: Bile Duct [employer] 12/24/2022 [id number] / / [id number] [employer] 10fr 5cm Biliary Stent [id number] - [id number] Implanted:Qty: 1 on 07/06/2022 by Kenneth Loya MD at [facility] Explanted:Qty: 1 on 09/08/2022 by Kenneth Loya MD at [facility] N/A: Bile Duct [employer] 11/16/2023 [id number] / / [id number] [employer] 10fr 7cm Biliary Stent [id number] - [id number] Explanted:Qty: 1 on 04/10/2023 by John De Anda MD at [facility] [employer] [id number] 12/13/2024 [id number] / / [id number] Description:Unable to place despite multiple attempts Insurance [facility] Address: [address] [address] [place] [address] [facility] [id number] Address: [address] [place] [id number] Advance Directives For more information, please contact: [phone] * Full Code (Latest Code Status on [...] 7:36 AM 06/02/2023 3:26 PM Care Teams Electromedical Equipment Repairer Relationship Specialty Start Date End Date Don Walton PA [address] [facility] [address] [place] [address] PCP - General Physician Statistical Engineer 12/28/21
--- OUTSIDE RECORDS SUMMARY | 2024-07-22 14:36 | XMS_ITS | Encounter Summary ---
Author Organization 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
[2024-07-22 14:37] LABS: Lipase 65 U/L (23-300)
[2024-07-22] MEDS: THIAMINE 500 MG/NS 100 ML 500 MG/100 ML BAG 200 MG IVPB (14:40)
[2024-07-22 14:44] VITALS: BP 110/78; PULSE 76; RESP 20; O2SAT 100
[2024-07-22 14:55] LABS: Ethanol 449 mg/dL (<10)
== END 2024-07-22 17:17 | disposition home or self-care (01) ==
PROVIDERS: Emergency Provider Emergency Medicine; PCP Nurse Practitioner
DX: F10.129 Alcohol abuse with intoxication, unspecified (principal); Y90.8 Blood alcohol level of 240 mg/100 ml or more; K21.9 Gastro-esophageal reflux disease without esophagitis; I10 Essential (primary) hypertension; Z86.711 Personal history of pulmonary embolism; E78.00 Pure hypercholesterolemia, unspecified; Z87.891 Personal history of nicotine dependence
CPT/HCPCS: 36415; 80053; 82077; 83690; 83735; 85025; 96361; 96365; 99284; J3411; J7042

== ENCOUNTER 2024-07-25 20:18 | Emergency (ER) | payer MEDICARE, SELFPAY ==
[2024-07-25 20:25] VITALS: BP 108/56; PULSE 109; RESP 20; O2SAT 100
[2024-07-25 21:00] LABS: Basophils Absolute Auto 0.1 K/mm3 (0.0-0.1); Basophils Percent Auto 1.1 % (0.2-1.2); Eosinophils Percent Auto 0.4 % (0-4.4); Hematocrit 42.1 % (42.0-52.0); Hemoglobin 14.2 g/dL (14.0-18.0); Immature Granulocyte Absolute 0.02 K/mm3 (0.00-0.031); Immature Granulocyte Percent A 0.3 % (0-0.5); Lymphocytes Absolute Auto 1.77 K/mm3 (0.9-3.2); Lymphocytes Percent Auto 25.4 % (18.3-44.2); Mean Corpuscular HGB Conc 33.7 g/dl (32-36); Mean Corpuscular Hemoglobin 30.4 pg (26-34); Mean Corpuscular Volume 90.1 fl (80-100); Mean Platelet Volume 9.1 fl (7.4-10.4); Monocytes Absolute Auto 0.6 K/mm3 (0.1-0.6); Monocytes Percent Auto 8.9 % (2.6-8.5); Neutrophils Absolute Auto 4.5 K/mm3 (1.3-6.7); Neutrophils Percent Auto 63.9 % (45.5-73.1); Platelet Count Result 415 k/mm3 (150-375); Red Blood Count 4.67 M/mm3 (4.6-6.20); Red Cell Distribution Width 16.5 % (11.5-14.5)
[2024-07-25 21:09] LABS: Alanine Aminotransferase 106 U/L (6-50); Albumin Level 4.1 g/dL (3.5-5.1); Alkaline Phosphatase 441 U/L (38-126); Anion Gap 20 mmol/L (4-12); Aspartate Amino Transferase 216 U/L (17-59); Bilirubin,Total 0.4 mg/dL (0.2-1.3); Blood Urea Nitrogen 4 mg/dL (9-20); Calcium 9.4 mg/dL (8.4-10.2); Carbon Dioxide 19 mmol/L (22-30); Chloride 103 mmol/L (98-107); Estimated CRCL calculation 118 ml/min; Estimated Glomerular Filt Rate > 60; Glucose 149 mg/dL (65-110); Lipase 42 U/L (23-300); Potassium 2.9 mmol/L (3.4-5.0); Sodium 142 mmol/L (137-145)
[2024-07-25] MEDS: SODIUM CHLORIDE 0.9% IV 1,000 ML 999 ML IV CONT (21:11)
--- NOTE | 2024-07-25 21:25 | ED.GENADULT ---
HPI - General Adult General Chief complaint: Abdominal Pain <Mert Reynoso MD - Last Filed: 07/25/24 21:27> Stated complaint: abd pain, chest pain <Mert Reynoso MD - Last Filed: 07/25/24 21:27> Time Seen by Provider: 07/25/24 20:59 <Mert Reynoso MD - Last Filed: 07/25/24 21:27> History of Present Illness HPI narrative: Patient 58-year-old gentleman who presents emergency department chief complaint of nausea abdominal pain patient has history of alcoholism and drinks around a 5th per day the patient has history of chronic pancreatitis and reports that his stomach hurts. <Mert Reynoso MD - Last Filed: 07/25/24 21:27> Related Data Home medications: Home Medications ?Medication ?Instructions ?Recorded ?Confirmed ?Last Taken ?Type fdnfqsvn-lwze-jkjhf acid 400 1 tablet PO DAILY 02/03/21 06/23/24 11/18/21 History mcg-lycopene 600 mcg-ginkgo 120 mg tablet lidocaine 5 % topical patch 1 patch topical DAILY 06/01/22 06/23/24 Unknown History melatonin 10 mg capsule 10 mg PO QHS 06/01/22 06/23/24 Unknown History potassium gluconate 595 mg (99 mg) 595 mg PO DAILY 04/25/23 06/23/24 Unknown History tablet psyllium husk 0.4 gram capsule 0.4 g PO DAILY 04/25/23 06/23/24 Unknown History (Metamucil) losartan 25 mg tablet 25 mg PO DAILY 06/28/23 06/23/24 Unknown History <Mert Reynoso MD - Last Filed: 07/25/24 21:27> Allergies/adverse reactions: Allergies Allergy/AdvReac Type Severity Reaction Status Date / Time amoxicillin Allergy Intermediate rash Verified 06/23/24 07:16 Penicillins Allergy Intermediate Pruritic Verified 06/23/24 07:16 rash <Mert Reynoso MD - Last Filed: 07/25/24 21:27> Review of Systems Review of Systems: A 10 system review of systems was completed on the patient and is negative except for what is stated in the HPI. Nursing and ancillary documentation was reviewed. <Mert Reynoso MD - Last Filed: 07/25/24 21:27> [facility] Past Medical History Medical History: Medical History Alcohol withdrawal Necrotizing pancreatitis Screening for prostate cancer Elevated PSA JOSE (acute kidney injury) Vomiting, unspecified Viral syndrome Plantar fasciitis of left foot Paresthesia Memory loss Gastroesophageal reflux disease without esophagitis Gastritis and duodenitis Flu-like symptoms Essential hypertension Enthesopathy of elbow Dizziness Diarrhea, unspecified Cough Alcoholism Colon cancer screening Fracture of vertebra due to osteoporosis with routine healing Bilateral hand pain Dyspnea Generalized osteoarthritis of multiple sites Encounter for medication management Counseling on health promotion and disease prevention Inflammatory arthritis (~08/2019) H/O blood clots History of pancreatitis History of pulmonary embolism (~08/2019) JOSE (acute kidney injury) Pneumonia Angioedema (~08/2019) Acute pulmonary embolism Thrombocytopenia (~08/2019) PUD (peptic ulcer disease) History of GI bleed Pancreatitis H/O: HTN (hypertension) Hypercholesteremia GERD (gastroesophageal reflux disease) <Mert Reynoso MD - Last Filed: 07/25/24 21:27> Surgical History Surgical History: Surgical History History of appendectomy <Mert Reynoso MD - Last Filed: 07/25/24 21:27> Family History Family History: Family History Mother Hypertension Sibling Patient's brother is in good health Father Family history of pancreatic cancer <Mert Reynoso MD - Last Filed: 07/25/24 21:27> Social History Social History: Social History Smoking packs per day: 1.5 Smoking cigarettes per day: 30.0 Years smoked: 35 Smoking pack-years: 52.50 Smoking status: Current every day smoker Tobacco type: cigarettes Second hand tobacco smoke exposure: No Alcohol intake: current Drinks per week: 50 Alcohol use details: SHOT Substance use: current Substance use type: marijuana Other substance usage details: MEDICAL CARD-DAILY FOR BACK PAIN Do You Feel Safe in your Home?: Yes Lack of Transportation: No Lack of Food: Never True Current Housing: I Do Not Have Housing Concerned About Future Housing: No Difficulty Paying Gas/Electric Bills: No Difficulty Paying for Meds: No Currently Unemployed: No Education: Don't Know Difficulty w/ Childcare or Family Care: No Living arrangements: with family Occupation/Education: retired Additional occupation/education comments: chronic pancreatitis Gender identity (if verbalized by the patient): Male Spiritual care concerns: No <Mert Reynoso MD - Last Filed: 07/25/24 21:27> Exam Narrative: GENERAL: Well-appearing, well-nourished, and in no acute distress. Appears to be acutely intoxicated HEAD: Normocephalic, atraumatic. EYES: PERRLA and EOMI. ENT: Nares clear, no rhinorrhea or epistaxis. Mucous membranes moist. NECK: Supple. CHEST: Clear to auscultation. No respiratory distress. HEART: Regular rate and rhythm. No murmur heard. Normal peripheral pulses. ABDOMEN: Soft, nontender, nondistended, normal active bowel sounds. EXTREMITIES: Normal range of motion. No edema. SKIN: Warm, dry, no rash. NEURO: No focal deficits. Alert and oriented x3. PSYCH: Normal mood and affect. <Mert Reynoso MD - Last Filed: 07/25/24 21:27> Course Course Emergency Course: Patient signed out to me by previous ED physician at 7:[address] scan of the abdomen pelvis and discharge home after completion of workup. Patient's workup reveals no leukocytosis or anemia. Normal platelet level. Negative lipase. Normal renal function, normal glucose. LFTs at similar level from prior study. CT scan shows fatty liver disease, pancreatitis. Patient has normal vital signs here, has no pain on reassessments. Patient is tolerating oral intake at bedside without any nausea, vomiting or increased pain. Given patient's hemodynamic stability, inability to tolerate oral intake, no acute concerning findings on scan he can be safely discharged home at this time with return precautions. <Deandre Matamoros MD - Last Filed: 07/26/24 01:47> Vital Signs Vital signs: Vital Signs Pulse Rate 109 H 07/25/24 20:25 Respiratory Rate 20 07/25/24 20:25 Blood Pressure 108/56 L 07/25/24 20:25 Pulse Oximetry 100 07/25/24 20:25 Pulse Rate 92 07/26/24 00:39 Respiratory Rate 15 07/26/24 00:39 Blood Pressure 110/68 07/26/24 00:39 Pulse Oximetry 98 07/26/24 00:39 <Mert Reynoso MD - Last Filed: 07/25/24 21:27> Vital Signs Pulse Rate 109 H 07/25/24 20:25 Respiratory Rate 20 07/25/24 20:25 Blood Pressure 108/56 L 07/25/24 20:25 Pulse Oximetry 100 07/25/24 20:25 Pulse Rate 92 07/26/24 00:39 Respiratory Rate 15 07/26/24 00:39 Blood Pressure 110/68 07/26/24 00:39 Pulse Oximetry 98 07/26/24 00:39 <Deandre Matamoros MD - Last Filed: 07/26/24 01:47> Medical Decision Making Vital Signs Vital Signs: Vital Signs Pulse Rate 109 H 07/25/24 20:25 Respiratory Rate 20 07/25/24 20:25 Blood Pressure 108/56 L 07/25/24 20:25 Pulse Oximetry 100 07/25/24 20:25 Pulse Rate 92 07/26/24 00:39 Respiratory Rate 15 07/26/24 00:39 Blood Pressure 110/68 07/26/24 00:39 Pulse Oximetry 98 07/26/24 00:39 <Mert Reynoso MD - Last Filed: 07/25/24 21:27> Vital Signs Pulse Rate 109 H 07/25/24 20:25 Respiratory Rate 20 07/25/24 20:25 Blood Pressure 108/56 L 07/25/24 20:25 Pulse Oximetry 100 07/25/24 20:25 Pulse Rate 92 07/26/24 00:39 Respiratory Rate 15 07/26/24 00:39 Blood Pressure 110/68 07/26/24 00:39 Pulse Oximetry 98 07/26/24 00:39 <Deandre Matamoros MD - Last Filed: 07/26/24 01:47> Lab Data Result diagrams: 07/25/24 20:54 07/25/24 20:54 <Mert Reynoso MD - Last Filed: 07/25/24 21:27> Labs: Lab Results 07/25/24 07/25/24 Range/Units 20:54 23:00 WBC 7.0 (4.5-10.0) K/mm3 RBC 4.67 (4.6-6.20) M/mm3 Hgb 14.2 (14.0-18.0) g/dL Hct 42.1 (42.0-52.0) % MCV 90.1 (80-100) fl MCH 30.4 (26-34) pg MCHC 33.7 (32-36) g/dl RDW 16.5 H (11.5-14.5) % Plt Count 415 H (150-375) k/mm3 MPV 9.1 (7.4-10.4) fl Immature Gran % (Auto) 0.3 (0-0.5) % Neut % (Auto) 63.9 (45.5-73.1) % Lymph % (Auto) 25.4 (18.3-44.2) % Bell % (Auto) 8.9 H (2.6-8.5) % Eos % (Auto) 0.4 (0-4.4) % Baso % (Auto) 1.1 (0.2-1.2) % Lymph # (Auto) 1.77 (0.9-3.2) K/mm3 Bell # (Auto) 0.6 (0.1-0.6) K/mm3 Eos # (Auto) 0.0 (0-0.3) K/mm3 Baso # (Auto) 0.1 (0.0-0.1) K/mm3 Abs Immat Gran (auto) 0.02 (0.00-0.031) K/mm3 Absolute Neuts (auto) 4.5 (1.3-6.7) K/mm3 Absolute Nucleated RBC 0.000 (0.0-0.012) K/mm3 Nucleated RBC % 0.0 (0.0-0.2) % Sodium 142 (137-145) mmol/L Potassium 2.9 L (3.4-5.0) mmol/L Chloride 103 (98-107) mmol/L Carbon Dioxide 19 L (22-30) mmol/L Anion Gap 20 H (4-12) mmol/L BUN 4 L (9-20) mg/dL Creatinine 0.66 L (0.7-1.3) mg/dL Estim Creat Clear Calc 118 ml/min Estimated GFR > 60 (59 - ) Glucose 149 H (65-110) mg/dL Calcium 9.4 (8.4-10.2) mg/dL Total Bilirubin 0.4 (0.2-1.3) mg/dL AST 216 H (17-59) U/L ALT 106 H (6-50) U/L Alkaline Phosphatase 441 H (38-126) U/L Total Protein 8.0 (6.3-8.2) g/dL Albumin 4.1 (3.5-5.1) g/dL Lipase 42 (23-300) U/L Urine Color Yellow (Yellow) Urine Appearance Clear (Clear) Urine pH 7.5 (5.0-9.0) Ur Specific [place] 1.037 H (1.001-1.035) Urine Protein Negative (Negative) mg/dL Urine Glucose (UA) Negative (Negative) mg/dL Urine Ketones Negative (Negative) mg/dL Ur Blood (Man) Negative (Negative) Urine Nitrate Negative (Negative) Urine Bilirubin Negative (Negative) Urine Urobilinogen 0.2 (<2.0) mg/dL Leukocyte Esterase Rfl Negative (Negative) KRISTOFER/UL <Mert Reynoso MD - Last Filed: 07/25/24 21:27> Lab Results 07/25/24 07/25/24 Range/Units 20:54 23:00 WBC 7.0 (4.5-10.0) K/mm3 RBC 4.67 (4.6-6.20) M/mm3 Hgb 14.2 (14.0-18.0) g/dL Hct 42.1 (42.0-52.0) % MCV 90.1 (80-100) fl MCH 30.4 (26-34) pg MCHC 33.7 (32-36) g/dl RDW 16.5 H (11.5-14.5) % Plt Count 415 H (150-375) k/mm3 MPV 9.1 (7.4-10.4) fl Immature Gran % (Auto) 0.3 (0-0.5) % Neut % (Auto) 63.9 (45.5-73.1) % Lymph % (Auto) 25.4 (18.3-44.2) % Bell % (Auto) 8.9 H (2.6-8.5) % Eos % (Auto) 0.4 (0-4.4) % Baso % (Auto) 1.1 (0.2-1.2) % Lymph # (Auto) 1.77 (0.9-3.2) K/mm3 Bell # (Auto) 0.6 (0.1-0.6) K/mm3 Eos # (Auto) 0.0 (0-0.3) K/mm3 Baso # (Auto) 0.1 (0.0-0.1) K/mm3 Abs Immat Gran (auto) 0.02 (0.00-0.031) K/mm3 Absolute Neuts (auto) 4.5 (1.3-6.7) K/mm3 Absolute Nucleated RBC 0.000 (0.0-0.012) K/mm3 Nucleated RBC % 0.0 (0.0-0.2) % Sodium 142 (137-145) mmol/L Potassium 2.9 L (3.4-5.0) mmol/L Chloride 103 (98-107) mmol/L Carbon Dioxide 19 L (22-30) mmol/L Anion Gap 20 H (4-12) mmol/L BUN 4 L (9-20) mg/dL Creatinine 0.66 L (0.7-1.3) mg/dL Estim Creat Clear Calc 118 ml/min Estimated GFR > 60 (59 - ) Glucose 149 H (65-110) mg/dL Calcium 9.4 (8.4-10.2) mg/dL Total Bilirubin 0.4 (0.2-1.3) mg/dL AST 216 H (17-59) U/L ALT 106 H (6-50) U/L Alkaline Phosphatase 441 H (38-126) U/L Total Protein 8.0 (6.3-8.2) g/dL Albumin 4.1 (3.5-5.1) g/dL Lipase 42 (23-300) U/L Urine Color Yellow (Yellow) Urine Appearance Clear (Clear) Urine pH 7.5 (5.0-9.0) Ur Specific [place] 1.037 H (1.001-1.035) Urine Protein Negative (Negative) mg/dL Urine Glucose (UA) Negative (Negative) mg/dL Urine Ketones Negative (Negative) mg/dL Ur Blood (Man) Negative (Negative) Urine Nitrate Negative (Negative) Urine Bilirubin Negative (Negative) Urine Urobilinogen 0.2 (<2.0) mg/dL Leukocyte Esterase Rfl Negative (Negative) KRISTOFER/UL <Deandre Matamoros MD - Last Filed: 07/26/24 01:47> Discharge Plan Discharge Clinical Impression: Acute on chronic pancreatitis, History of ETOH abuse <Mert Reynoso MD - Last Filed: 07/25/24 21:27> Patient Disposition: Home, Self-Care <Mert Reynoso MD - Last Filed: 07/25/24 21:27> Condition: Stable <Mert Reynoso MD - Last Filed: 07/25/24 21:27> Instructions: Antibiotic Form, Pancreatitis (ED) <Mert Reynoso MD - Last Filed: 07/25/24 21:27> Additional Instructions: Refrain from drinking alcohol, follow-up with regular doctor. If you have any worsening pain, intractable nausea vomiting, any other concerns seek medical attention or return to the ER. <Mert Reynoso MD - Last Filed: 07/25/24 21:27> Patient Language: Bahamian <Mert Reynoso MD - Last Filed: 07/25/24 21:27> Prescriptions: No Action fluticasone propionate [Flonase Allergy Relief] 50 mcg/actuation spray,suspension 2 spray intranasal DAILY Qty: 16 0RF Rx Instructions: administer into each nostril fenofibrate 160 mg tablet 160 mg PO DAILY Qty: 90 1RF folic acid 1 mg tablet See Rx Instructions .ROUTE .COMPLEX Qty: 90 1RF Dose Instruction: TAKE 1 TABLET BY MOUTH DAILY Rx Instructions: TAKE 1 TABLET BY MOUTH DAILY pantoprazole 40 mg tablet,delayed release (DR/EC) See Rx Instructions .ROUTE .COMPLEX Qty: 90 1RF Dose Instruction: TAKE 1 TABLET BY MOUTH EVERY MORNING Rx Instructions: TAKE 1 TABLET BY MOUTH EVERY MORNING meloxicam 7.5 mg tablet 7.5 mg PO BID PRN (Reason: joint pain) Qty: 60 5RF duloxetine [Cymbalta] 30 mg capsule,delayed release(DR/EC) 90 mg PO .COMPLEX Qty: 90 5RF Rx Instructions: 90 mg orally Take 2 capsules in AM and then 1 capsule in the evening.; melatonin 10 mg capsule 10 mg PO QHS lidocaine 5 % adhesive patch,medicated 1 patch topical DAILY Patient Comments: On right shoulder psyllium husk [Metamucil] 0.4 gram capsule 0.4 g PO DAILY potassium gluconate 595 mg (99 mg) tablet 595 mg PO DAILY ondansetron 4 mg tablet,disintegrating 4 mg PO Q8H PRN (Reason: nausea and vomiting) Qty: 30 0RF losartan 25 mg tablet 25 mg PO DAILY tobramycin 0.3 % drops 1 drp LEFT EYE Q4H Qty: 5 0RF ondansetron 4 mg tablet,disintegrating 4 mg PO Q8H PRN (Reason: nausea and vomiting) Qty: 15 0RF chlordiazepoxide HCl 25 mg capsule 25 mg PO TID PRN (Reason: alcohol withdrawal) Qty: 15 0RF lh-szte-snnfr-lycopene-ginkgo 400-600-120 mcg-mcg-mg Tablet 1 tablet PO DAILY sildenafil 100 mg tablet 100 mg PO DAILY PRN (Reason: sexual activity) Qty: 8 3RF Rx Instructions: administer 30 minutes to 4 hours before activity Creon 12,000-38,000 -60,000 unit capsule,delayed release(DR/EC) 1 cap PO TID Qty: 90 5RF Rx Instructions: administer with meals and/or snacks tadalafil 20 mg tablet See Rx Instructions .ROUTE .COMPLEX Qty: 8 4RF Dose Instruction: TAKE 1 TABLET BY MOUTH DAILY SEXUAL ACTIVITY AND 30 MINUTES BEFORE SEXUAL ACTIVITY NEEDED. DO NOT USE MORE THAN 1 DOSE PER 24 HOURS Rx Instructions: TAKE 1 TABLET BY MOUTH DAILY SEXUAL ACTIVITY AND 30 MINUTES BEFORE SEXUAL ACTIVITY NEEDED. DO NOT USE MORE THAN 1 DOSE PER 24 HOURS gabapentin 300 mg capsule 300 mg PO Q8H Qty: 270 1RF trazodone 50 mg tablet 100 mg PO .QHS PRN (Reason: insomnia) Qty: 180 1RF tizanidine 4 mg tablet See Rx Instructions .ROUTE .COMPLEX Qty: 60 2RF Dose Instruction: TAKE 1 TO 2 TABLETS BY MOUTH EVERY NIGHT AT BEDTIME NEEDED FOR MUSCLE SPASMS Rx Instructions: TAKE 1 TO 2 TABLETS BY MOUTH EVERY NIGHT AT BEDTIME NEEDED FOR MUSCLE SPASMS amlodipine 10 mg tablet 10 mg PO DAILY Qty: 90 1RF <Mert Reynoso MD - Last Filed: 07/25/24 21:27> Follow-up/Referrals: Ronnell Escobar, [employer]CER [Primary Care Provider] - <Mert Reynoso MD - Last Filed: 07/25/24 21:27> Time of Disposition: 01:46 <Mert Reynoso MD - Last Filed: 07/25/24 21:27> 01:46 <Deandre Matamoros MD - Last Filed: 07/26/24 01:47>
[2024-07-25] MEDS: THIAMINE 500 MG/NS 100 ML 500 MG/100 ML BAG 200 MG IVPB (21:42)
[2024-07-25] MEDS: KCL 20 MEQ/SW 100 ML 100 ML 50 MEQ IVPB (22:05)
[2024-07-25] MEDS: SODIUM CHLORIDE 0.9% IV 500 ML 999 ML (22:06)
[2024-07-25 22:29] VITALS: BP 90/53; PULSE 94; RESP 15; O2SAT 99
[2024-07-25 23:08] LABS: Add Urine Microscopic? NO; Appearance Urine Clear (Clear); Bilirubin Urine Negative (Negative); Blood Urine Negative (Negative); Color Urine Yellow (Yellow); Glucose Urine UA Negative (Negative); Ketones Urine Negative (Negative); Leukocyte Esterase Ur Negative LEU/UL (Negative); Nitrate Urine Negative (Negative); Protein Urine Negative (Negative); Specific Grav Ur 1.037 (1.001-1.035); Urobilinogen Urine 0.2 mg/dL (<2.0); pH Urine 7.5 (5.0-9.0)
[2024-07-26 00:39] VITALS: BP 110/68; PULSE 92; RESP 15; O2SAT 98
--- NOTE | 2024-07-26 02:08 | PC.NURSE ---
Patient angry with staff that he is being sent home without being admitted for alcoholism. Patient educated that the doctor does not see it necessary for him to be hospitalized and offered for the physician to come answer any more questions. Patient states fuck that. This is bullshit. Everyone doesn't understand. This RN offered to call brother or taxi cab for him. Patient adamant about the RN leaving him alone and letting him leave. Patient educated on resources for alcohol abuse; but patient refused them and his discharge paperwork. Patient ambulates to the waiting room without incident yelling fuck this place.
[2024-07-26 02:12] VITALS: BP 112/74; PULSE 89; RESP 16; O2SAT 100
== END 2024-07-26 02:13 | disposition home or self-care (01) ==
PROVIDERS: Student in an Organized Health Care Education/Training Program; Emergency Provider Emergency Medicine; PCP Nurse Practitioner
DX: K85.90 Acute pancreatitis without necrosis or infection, unspecified (principal); K86.1 Other chronic pancreatitis; I10 Essential (primary) hypertension; E78.00 Pure hypercholesterolemia, unspecified; M19.90 Unspecified osteoarthritis, unspecified site; K21.9 Gastro-esophageal reflux disease without esophagitis; F10.20 Alcohol dependence, uncomplicated; F17.210 Nicotine dependence, cigarettes, uncomplicated; Z86.711 Personal history of pulmonary embolism; Z87.01 Personal history of pneumonia (recurrent)
CPT/HCPCS: 36415; 74177; 80053; 81003; 83690; 85025; 96361; 96365; 96366; 96367; 99284; J3411; J3480; J7030; J7040; Q9967

== ENCOUNTER 2024-07-31 17:48 | Inpatient (IN) | payer MEDICARE, SELFPAY ==
[2024-07-31] VITALS (16 sets, daily range): BP systolic 101–148; BP diastolic 70–92; PULSE 89–111; RESP 16–20; TEMP 36.4; O2SAT 98–100
--- NOTE | ~2024-07-31 | CT_ITS ---
CLINICAL INDICATION: Epigastric pain with a history of pancreatitis COMPARISON: 07/25/2024. TECHNIQUE: Multiple contiguous axial images of the abdomen and pelvis were performed following the ad ministration of with 100 mL Omnipaque-350 intravenous contrast The dose-length product (DLP) was 380.01 mGy-cm. Automated exposure control and iterative reconstruction technique were employed. FINDINGS/OBSERVATIONS: Visualized lower thorax: The bilateral lung bases are clear. The heart is of normal size, without pericardial effusion. Small hiatal hernia is present. Liver: The liver demonstrates homogeneous enhancement and diffuse fatty infiltration and is enlarged measuri ng 22 cm in longitudinal dimension. Gallbladder and biliary system: The gallbladder is only minimally distended, and otherwise unremarkable. Pancreas: The pancreas is enlarged and edematous with loss of fatty infiltration. Significant surrounding inflammatory change is present. Redemonstration of multiple punctate calcifications within the head of the pancreas consistent with c hronic pancreatitis. Redemonstration of atrophy of the pancreatic tail. The main pancreatic duct is increased in size from prior measuring 10.5 mm, compared to the 8 mm on t he prior exam, performed approximately 1 week earlier. The pancreas enhances in its entirety without suggestion of necrosis. No evidence of hemorrhagic pancreatitis. Spleen: The spleen enhances homogeneously and is not enlarged measuring 9 cm in longitudinal dimension. Kidneys: The bilateral kidneys enhance symmetrically without hydronephrosis or renal calculi. Adrenal glands: Unremarkable. Gastrointestinal tract: Colonic diverticulosis without surrounding inflammatory change. Retained gastric contents within the stomach. Appendix: The appendix is not definitively visualized. However, no pericecal inflammatory change is identified suggest the presence of acute appendicitis. Vasculature: Unremarkable. Retroaortic left renal vein is incidentally noted Lymph nodes: No pathologically enlarged or morphologically suspicious lymph nodes within the retroperitoneum or at the root of the mesentery. Pelvic structures: The bladder is only minimally distended, and otherwise unremarkable. The prostate gland is not enlarged. Body wall and musculoskeletal: Small fat-containing umbilical hernia. Degenerative disease is identified at the level of T12/L1 with osteophyte formation, disc space narro wing, endplate changes and vacuum phenomena. The remainder of the lumbosacral spine is unremarkable. IMPRESSION: Acute on chronic pancreatitis, as detailed above. Reviewed, dictated and finalized at location A. ER [facility]
--- OUTSIDE RECORDS SUMMARY | 2024-07-31 18:03 | XMS_ITS | Clinical Summary ---
Author Organization [facility] Address [address] [place] [address] Care Team Providers Care Adobe Layer Helper Name Role Phone Lamberto Barker MD Primary Care Provider [phone] Allergies Active Allergy Reactions Criticality Noted Date [...] total) by mouth daily. 3 Active CREON 04896-56503 units CAPSULE ENTERIC COATED PARTICLES Take 1 [...] no ischemic changes. He reports hx of OR in the past, unclear circumstances. He had an exercise stress test in spring at an outside facility that he says was normal. Cont ASA. Pancreatic pseudocyst ([facility]) 07/26/2021 Severe sepsis ([facility]) 07/08/2021 Overview (11/04/2022): Last Assessment & Plan: [...] Alcohol dependence with unsp ecified alcohol-induced disorder ([facility]) 06/25/2021 Overview (11/04/2022): Last Assessment & Plan: [...] has AA resources for discharge. Acute pancreatitis ([facility]) 06/20/2021 Pancreatitis ([facility]) 05/08/2019 Hypertension Tobacco abuse Resolved Problems Problem Noted Date Diagnosed Date Resolved Date Acute pancreatitis ([facility]) 12/28/2020 06/01/2021 Hypokalemia 06/20/2020 12/25/2020 Acute pancreatitis ([facility]) 06/19/2020 12/25/2020 Necrotizing pancreatitis ([facility]) 10/21/2019 12/25/2020 Other constipation 10/21/2019 Encounters Date Type Department Care Team Description 07/20/2024 2:13 PM RESIZER OPERATOR - 07/20/2024 4:18 PM [facility] Emergency [facility] [place] [address] Lizette Shah MD Alcohol Intoxication Discharge Disposition: Left Against Medical Advice 07/20/2024 Travel 07/19/2024 11:53 AM RESIZER OPERATOR - 07/19/2024 1:27 PM [facility] Emergency [facility] [place] [address] Lizette Shah MD Alcohol Intoxication Discharge Disposition: Left Against Medical Advice 07/19/2024 Travel 07/06/2024 2:36 AM RESIZER OPERATOR - 07/06/2024 6:29 AM [facility] Emergency [facility] [place] [address] Daniel Hitchcock MD Withdrawal- Alcohol Discharge Disposition: [...] How often do you attend chur or lutheran services? Never 12/25/2020 Do you belong to [...] move on to questions 3-9 2 12/25/2020 [facility] - [...] Comments Blood Pressure 99/62 07/20/2024 3:00 PM RESIZER OPERATOR Pulse 98 07/20/2024 3:00 PM RESIZER OPERATOR Temperature 37.1 C (98.8 F) 07/20/2024 2:33 PM RESIZER OPERATOR Respiratory Rate 18 07/20/2024 3:00 PM RESIZER OPERATOR Oxygen Saturation 93% 07/20/2024 3:00 PM RESIZER OPERATOR Inhaled Oxygen Concentration - - Weight 79.2 kg (174 lb 9.7 oz) 07/20/2024 2:15 P M RESIZER OPERATOR Height 182.9 cm (6') 07/20/2024 2:15 PM RESIZER OPERATOR Body Mass Index 23.68 07/20/2024 2:15 PM RESIZER OPERATOR Plan of Treatment Health Maintenance Due Date [...] (#1) 2024 03/08/2021, 03/03/2019, 02/05/2018 PHQ-2 (Physician [place]) 05/29/2024 Colorectal Cancer Screening FIT/FOBT (1 Year) [...] Reduce alcohol intake Lifestyle No Nancy Matthews production quality analyst Procedure Name Priority Date/Time Associated Diagnosis Comments LIPASE STAT 07/20/2024 2:44 PM RESIZER OPERATOR MAGNESIUM STAT 07/20/2024 2:44 PM RESIZER OPERATOR COMPREHENSIVE METABOLIC PANEL STAT 07/20/2024 2:44 PM RESIZER OPERATOR CBC W/DIFF AUTOMATED STAT 07/20/2024 2:44 PM RESIZER OPERATOR LIPASE STAT 07/19/2024 12:38 PM RESIZER OPERATOR MAGNESIUM STAT 07/19/2024 12:38 PM RESIZER OPERATOR COMPREHENSIVE METABOLIC PANEL STAT 07/19/2024 12:38 PM RESIZER OPERATOR CBC W/DIFF AUTOMATED STAT 07/19/2024 12:[address] HEAD WO CON STAT 07/06/2024 3:15 AM RESIZER OPERATOR LIPASE STAT 07/06/2024 3:00 AM RESIZER OPERATOR ETHANOL STAT 07/06/2024 3:00 AM RESIZER OPERATOR MAGNESIUM STAT 07/06/2024 3:00 AM RESIZER OPERATOR TROPONIN, QUANT STAT 07/06/2024 3:00 AM RESIZER OPERATOR COMPREHENSIVE METABOLIC PANEL STAT 07/06/2024 3:00 AM RESIZER OPERATOR CBC W/DIFF AUTOMATED STAT 07/06/2024 3:00 AM RESIZER OPERATOR OCCULT BLOOD, FECES Routine 09/15/2019 4 :49 PM CDT from Last 3 Months or Most Recently Relevant to Health Maintenance Results * (ABNORMAL) COMPREHENSIVE METABOLIC PANEL (07/20/2024 2:44 PM RESIZER OPERATOR) Only the most recent of3 resultswithin the time period is included. [facility] Signature GLUCOSE 115(H) 70 - 99 MG/DL 07/20/2024 3:19 PM [facility] BUN 7 7 - 18 MG/DL 07/20/2024 3:19 PM [facility] CREATININE S/P/B 0.62(L) 0.7 - 1.3 MG/DL 07/20/2024 3:19 PM [facility] SODIUM S/P/B 139 136 - 145 MMOL/L 07/20/2024 3:19 PM [facility] POTASSIUM S/P/B 3.6 3.5 - 5.1 MMOL/L 07/20/2024 3:19 PM [facility] CHLORIDE S/P/B 106 97 - 115 MMOL/L 07/20/2024 3:19 PM [facility] CO2 24.0 21 - 32 MMOL/L 07/20/2024 3:19 PM [facility] CALCIUM S/P/B 8.8 8.5 - 10.1 MG/DL 07/20/2024 3:19 PM [facility] BILIRUBIN TOTAL S/P/B 0.2 0.2 - 1.2 MG/DL 07/20/2024 3:19 PM [facility] Comment: THIS ASSAY IS NOT RECOMMENDED FOR PATIENTS UNDERGOING TREATMENT WITH ELTROMBOPAG DUE TO THE POTENTIAL FOR FALSELY ELEVATED RESULTS. TOTAL PROTEIN S/P/B 6.9 6.4 - 8.2 G/DL 07/20/2024 3:19 PM [facility] ALBUMIN S/P/B 2.9(L) 3.4 - 5.0 G/DL 07/20/2024 3:19 PM [facility] AST 50(H) 15 - 37 U/L 07/20/2024 3:19 PM [facility] ALT 34 16 - 60 U/L 07/20/2024 3:19 PM [facility] ALKALINE PHOSPHATASE S/P/B 496(H) 50 - 136 U/L 07/20/2024 3:19 PM [facility] ANION GAP 9.0 2 - 10 MMOL/L 07/20/2024 3:19 PM [facility] BUN CREATININE RATIO 11.2 6 - 26 07/20/2024 3:19 PM [facility] A/G RATIO 0.7(L) 1.0 - 2.0 RATIO 07/20/2024 3:19 PM [facility] GFR ESTIMATE >90 >90 ML/MIN/1.7 3 M2 07/20/2024 3:19 PM [facility] Comment: NOTE: eGFR is not calculated for patients <18 years of age or gender unknown. This is an estimated GFR calculation using the new CKD EPI creatinine equation without race and so does not require a correction factor for race. This estimated GFR should not be used for calculating drug doses. 07/20/2024 2:44 PM RESIZER OPERATOR us Lizette Shah MD LABORATORY Final Result [facility] [address] [place] [address], [place] [phone] * (ABNORMAL) CBC W/DIFF AUTOMATED (07/20/2024 2:44 PM RESIZER OPERATOR) Only the most recent of3 resultswithin the time period is included. WBC 6.16 4.5 - 11.0 x10'3/uL 07/20/2024 2:52 PM [facility] RBC 3.76(L) 4.70 - 6.10 x10'6/uL 07/20/2024 2:52 PM [facility] HGB 11.4(L) 14.0 - 18.0 G/DL 07/20/2024 2:52 PM [facility] HCT 34.8(L) 43.0 - 54.0 % 07/20/2024 2:52 PM [facility] MCV 92.6 80.0 - 94.0 FL 07/20/2024 2:52 PM [facility] MCH 30.3 27.0 - 31.0 PG 07/20/2024 2:52 PM [facility] MCHC 32.8 32.0 - 36.0 G/DL 07/20/2024 2:52 PM [facility] RDW 16.5(H) 11.5 - 14.5 % 07/20/2024 2:52 PM [facility] PLT 433(H) 130 - 400 x10'3/uL 07/20/2024 2:52 PM [facility] MPV 8.8(L) 9.3 - 12.2 FL 07/20/2024 2:52 PM [facility] DIFFERENTIAL TYPE AUTOMATED DIFFERENTIAL 07/20/2024 2:52 PM [facility] NEUTROPHILS % 54.6 % 07/20/2024 2:52 PM [facility] LYMPHOCYTES % 31.2 % 07/20/2024 2:52 PM [facility] MONOCYTES % 12.0 % 07/20/2024 2:52 PM [facility] EOSINOPHILS 0.3 % 07/20/2024 2:52 PM [facility] BASOPHILS 1.6 % 07/20/2024 2:52 PM RESIZER OPERATOR [facility] IMMATURE GRANS % 0.3 % 07/20/19 2:52 PM RESIZER OPERATOR [facility] ABS. NEUTROPHILS 3.36 1.80 - 7.70 x10'3/uL 07/20/2024 2:52 PM RESIZER OPERATOR [facility] ABS. LYMPHOCYTES 1.92 1.00 - 4.80 x10'3/uL 07/20/2024 2:52 PM RESIZER OPERATOR [facility] ABS. MONOCYTES 0.74 0.30 - 0.82 x10'3/uL 07/20/2024 2:52 PM RESIZER OPERATOR [facility] ABS. EOSINOPHILS 0.02(L) 0.04 - 0.54 x10'3/uL 07/20/2024 2:52 PM RESIZER OPERATOR [facility] ABS. BASOPHILS 0.10(H) 0.01 - 0.08 x10'3/uL 07/20/2024 2:52 PM RESIZER OPERATOR [facility] ABS. IMMATURE GRANULOCYTES 0.02 0.00 - 0.49 x10'3/uL 07/20/2024 2:52 PM RESIZER OPERATOR [facility] 07/20/2024 2:44 PM RESIZER OPERATOR us Lizette Shah MD LABORATORY Final Result [facility] [address] [place] [address], * MAGNESIUM (07/20/2024 2:44 PM RESIZER OPERATOR) Only the most recent of3 resultswithin the time period is included. MAGNESIUM 2.2 1.8 - 2.4 MG/DL 07/20/2024 3:19 PM RESIZER OPERATOR [facility] 07/20/2024 2:44 PM RESIZER OPERATOR us Lizette Shah MD LABORATORY Final Result [facility] [address] [place] [address], [place] [phone] * LIPASE (07/20/2024 2:44 PM RESIZER OPERATOR) Only the most recent of3 resultswithin the time period is included. LIPASE 17 13 - 75 UNITS/L 07/20/2024 3:19 PM RESIZER OPERATOR [facility] 07/20/2024 2:44 PM RESIZER OPERATOR us Lizette Shah MD LABORATORY Final Result Performing Organization Address [facility] de Phone Number [facility] [address] [place] [address], [place] [phone] * CT HEAD WO CON (07/06/2024 3:15 AM RESIZER OPERATOR) Anatomical Region Laterality Modality Head Computed Tomogra phy 07/06/2024 3:13 AM RESIZER OPERATOR Impressions 07/06/2024 3:16 AM RESIZER OPERATOR IMPRESSION: 1. No acute intracranial abnormality. 2. [...] 07/06/2024 3:13 AM Narrative 07/06/2024 3:16 AM RESIZER OPERATOR [facility] [address] [place], [place] [address] EXAMINATION: CT Head without Contrast, Axial Imaging [...] Procedure Note Sparkle Monaco MD - 07/06/2024 [facility] [address] [place] [address] EXAMINATION: CT Head without Contrast, Axial Imaging [...] t * TROPONIN, QUANT (07/06/2024 3:00 AM RESIZER OPERATOR) [facility] TROPONIN I HIGH SENSITIVITY 9 <79 ng/L 07/06/2024 3:58 AM RESIZER OPERATOR [facility] Comment: HIGH DOSES OF BIOTIN, TROPONIN-SPECIFIC AUTOANTIBODIES, AND ANTIBODY THERAPY CONTAINING HAMA MAY INTERFERE WITH THIS TEST RESULT. CORRELATION TO CLINICAL HISTORY AND PRESENTATION RECOMMENDED. 07/06/2024 3:00 AM RESIZER OPERATOR us Daniel Hitchcock MD LABORATORY Final Resul t Performing Organization Address City/[facility]/ZIP Co de Phone Number [facility] [address] [place] [address], * (ABNORMAL) ETHANOL (07/06/2024 3:00 AM RESIZER OPERATOR) [facility] ALCOHOL S/P/B 0.158(H) <0.003 G/DL 07/06/2024 3:58 AM RESIZER OPERATOR [facility] 07/06/2024 3:00 AM RESIZER OPERATOR us Daniel Hitchcock MD LABORATORY Final Resul t [facility] [address] [place] [address], [place] [phone] * OCCULT BLOOD, FECES (09/15/2019 4:49 PM CDT) [facility] OCCULT BLOOD FECAL NEGATIVE 09/15/2019 5:56 PM CDT [facility] STOOL SPECIMEN / Unknown 09/15/2019 4:49 PM CDT González Morataya PA-C BODY FLUIDS AND STOOLS ORDERAB LES Final Result [facility] [address] [place] [address], from Last 3 Months or Most Recently [...] 11:31 PM 12/26/2020 7:51 PM Care Teams Adobe Layer Helper Relationship Specialty Start Date End Date Lamberto Barker MD [address] [place] [address] PCP - General INTERNAL MEDICINE 05/08/19
--- OUTSIDE RECORDS SUMMARY | 2024-07-31 18:03 | XMS_ITS | Encounter Summary ---
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
--- OUTSIDE RECORDS SUMMARY | 2024-07-31 18:03 | XMS_ITS | Encounter Summary ---
Author Organization [facility] Address [address] [place] [address] Care Team Providers Care Golf Course Starter Name Role Phone Don Walton Primary Care Provider Encounter Details Date Type Department Care Team (Late st Contact Info) Description 01/25/2022 Orders Only [facility] [address] [place] [phone] Jordana Chambers MD [address] [place] [address] Social History Tobacco Use Types Packs/Day Years [...] often do you attend chur ch or buddhist services? 1 to 4 times per year 01/27/2022 Do you belong to any clubs o r organizations such as roman catholic groups, unions, fraternal or athletic groups, [...] on file Legal Sex Male 1:58 AM SPECIAL EFFECTS TECHNICIAN Gender Identity Not on file Sexual Orientation [...] COVID: Suspected 06/06/2023 06/06/2023 06/06/2023 9:39 PM SPECIAL EFFECTS TECHNICIAN documented as of this encounter Care Teams Golf Course Starter Relationship Specialty Start Date End Date Don Walton PA [address] [facility] [address] [facility] [address] [place] [address] PCP - General Physician Wilton Weaver 12/28/21 documented as of this encounter
--- OUTSIDE RECORDS SUMMARY | 2024-07-31 18:03 | XMS_ITS | Clinical Summary ---
Author Organization [facility] Address [address], [facility] [address] [place] [address] Phone Care Team Providers Care Senior Oracle Database Administrator Name Role Phone Lamberto Barker Nasra RUCKER Primary Care Provider [phone] Social History Tobacco Use Types Packs/Day Years Used Date Smoking Tobacco: Never Assessed Sex and Gender Information Value Date Recorded Sex Assigned at Not on file Legal Sex Male 8:46 AM CDT Gender Identity Not on file Sexual Orientation Not on file Plan of Treatment Not on file Insurance [employer] C [employer] Care Teams Senior Oracle Database Administrator Relationship Specialty Start Date End Date Lamberto Barker DO [address] [place] [address] PCP - General Internal Medicine 09/18/19
--- OUTSIDE RECORDS SUMMARY | 2024-07-31 18:03 | XMS_ITS | Encounter Summary ---
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
--- OUTSIDE RECORDS SUMMARY | 2024-07-31 18:03 | XMS_ITS | Encounter Summary ---
Author Organization [facility] Address [address] [place] [address] Care Team Providers Care Deputy Sheriff Custody Name Role Phone Lamberto Barker MD Primary Care Provider [phone] Encounter Details Date Type Department Care Team (Late st Contact Info) Description 10/21/2022 Na[facility] Message Enc [facility], [address] [address] [employer], [facility] Provider Stress test Social History [...] often do you attend chur ch or advent services? Never 12/25/2020 Do you belong to any clubs o r organizations such as islam groups, unions, fraternal or athletic groups, or [...] to questions 3-9 2 12/25/2020 [facility] - Occupational [...] place to sleep or slept in a nursing home (including now)? No 12/25/2020 Sex and Gender [...] Assessment Author Status No 06/20/2021 1:29 AM WORKDAY SENIOR ASSOCIATE Activ e * RETIRED Are you blind or do you have serious difficulty seeing, even when wearing glasses? Answer Date of Assessment Author Status No 06/20/2021 1:29 AM WORKDAY SENIOR ASSOCIATE Activ e * Do you have serious [...] documented as of this encounter Care Teams Deputy Sheriff Custody Relationship Specialty Start Date End Date Lamberto Barker MD [address] [place] [address] [place] [address] PCP - General INTERNAL MEDICINE 05/08/19 documented as of this encounter
--- OUTSIDE RECORDS SUMMARY | 2024-07-31 18:03 | XMS_ITS | Clinical Summary ---
Author Organization [facility] the [facility] Office Center Address [address] [place] [address] Care Team Providers Care Lead Level Designer Name Role Phone Don Walton Primary Care Provider Allergies Active Allergy Reactions Criticality Noted Date Comments Ciprofloxacin Hives Medium 06/02/2023 Patient stated he has previously tolerated PO. 06/02/23 had redness and hives after IV dose. Penicillins Rash Medium 05/08/2019 Hvqfkhntmrcg-Wqxspahzbe-Ste trs Angioedema High 09/17/[address] [...] daily 30 patch 01/12/20 22 Active multivit kclbiogc-mswc-ZW-c alcium (THERA-M) 9 mg iron-400 mcg tabletIndications: [...] 06/10/2023 Assessment & Plan (06/12/2023 2:18 PM POLITICAL CONSULTANT): Patient reports feeling constipated, gassy and [...] 06/08/2023 Assessment & Plan (06/09/2023 1:55 PM POLITICAL CONSULTANT): Resolved. Acute pancreatitis, unspecif ied complication status, unspecified pancreatitis type 06/04/2023 Assessment & Plan (06/05/2023 12:45 PM POLITICAL CONSULTANT): Longstanding bouts of pancreatitis originally from [...] 06/04/2023 Assessment & Plan (06/05/2023 12:48 PM POLITICAL CONSULTANT): Likely from pancreatitis. Also tender to palpation initially so may be a musculoskeletal component from dry heaving. Trops negative. EKG no ischemic changes. He reports hx of [place] in the past, unclear circumstances. He had an exercise stress test in spring at an outside facility that he says was normal. Cont ASA. Gram-negative bacteremia 04/11/2023 Assessment & Plan (04/13/2023 7:02 PM POLITICAL CONSULTANT): - due to cholangitis - BCx + for E coli and K. Pneumoniae - repeat BCx drawn 04/11, ngtd - pansensitive organisms - d/c home today with flagyl/cipro Cholangitis 04/10/2023 Assessment & Plan (04/12/2023 6:21 PM POLITICAL CONSULTANT): - Improving - 04/10 ERCP - removal of two migrates stents with biliary obstruction and replaced with 2 new stents in biliary stricture - PRN analgesics and antiemetics Assessment & Plan (04/10/2023 2:40 AM POLITICAL CONSULTANT): -meets [place] criteria for acute cholangitis [...] 01/04/2022 Assessment & Plan (06/13/2023 2:35 PM POLITICAL CONSULTANT): Recently admitted from 06/04-06/05/23 after ERCP [...] (01/05/2022): Added automatically from request for surgery [id number] Assessment & Plan (04/11/2023 3:57 PM POLITICAL CONSULTANT): - improving -2/2 stent migration and resultant biliary obstruction Assessment & Plan (04/10/2023 2:27 AM POLITICAL CONSULTANT): -2/2 stent migration and resultant biliary obstruction -mgmt as above -repeat HFP in AM 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 Overview (11/30/2021): Added automatically from request for surgery [id number] Encounter for replacement of biliary stent 11/30 Overview (11/30/2021): Added automatically from request for surgery [id number] 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 Pancreatic pseudocyst 07/26/2021 Severe sepsis 07/08/2021 Assessment & Plan (07/13/2021 9:43 AM POLITICAL CONSULTANT): Pt elevated temp on 2 overnight [...] infection Assessment & Plan (07/12/2021 9:40 AM POLITICAL CONSULTANT): Pt elevated temp on 2 overnight [...] infection Assessment & Plan (07/11/2021 10:55 AM POLITICAL CONSULTANT): Pt elevated temp on 2 overnight [...] bed Assessment & Plan (07/10/2021 9:10 AM POLITICAL CONSULTANT): Pt elevated temp on 2 overnight 38.1 max, hypotensive with normal lactate but new JOSE, [facility] IVF, BC, empirical meropenem initiated. Fluid [...] daily Assessment & Plan (07/09/2021 2:23 PM POLITICAL CONSULTANT): Pt elevated temp on 2 overnight 38.1 max, hypotensive with normal lactate but new JOSE, [facility] aggressive IVF, BC, empirical abx initiated. Fluid [...] daily Assessment & Plan (07/08/2021 1:53 PM POLITICAL CONSULTANT): Pt elevated temp overnight 38.1 max, [...] 07/07/2021 Assessment & Plan (07/13/2021 9:43 AM POLITICAL CONSULTANT): Dobbhoff placed 2/10, tube feeding to initiated Osmolite 1.5 at 55mL/hr over 24h via [place] tube continuous via pump. Flush with 150mL water q4h. Now at goal of 55cc/hr. Can cycle at home as instructed. Will continue TF until follow up with GI as outpatient Assessment & Plan (07/12/2021 9:39 AM POLITICAL CONSULTANT): Dobbhoff placed 2/10, tube feeding to initiated Osmolite 1.5 at 55mL/hr over 24h via NJ tube continuous via pump. Flush with 150mL water q4h. Now at goal of 55cc/hr. Can cycle at home as instructed. Will continue TF until follow up with GI as outpatient Assessment & Plan (07/11/2021 10:55 AM POLITICAL CONSULTANT): Dobbhoff placed 2/10, tube feeding to [...] Phos Assessment & Plan (07/10/2021 9:08 AM POLITICAL CONSULTANT): Cherelle placed 07/08, tube feeding to initiated TF recommendations: Goal: Osmolite 1.5 at 55mL/hr over 24h via [place] tube continuous via pump. Flush with 150mL water q4h. Initiate TF at 10mL/hr and increase by 10mL q4h until goal rate is reached Pt at goal feeding 55 ml/hr and tolerating without event Continue TF feeding Monitor BMP, Mag, Phos Assessment & Plan (07/09/2021 2:25 PM POLITICAL CONSULTANT): Cherelle placed 07/08, tube feeding to initiated TF [...] prn Assessment & Plan (07/08/2021 1:11 PM POLITICAL CONSULTANT): Cherelle placed 07/08, tube feeding to initiate TF recommendations: Goal: Osmolite 1.5 at 55mL/hr over 24h via [place] tube continuous via pump. Flush with 150mL water q4h. Initiate TF at 10mL/hr and increase by 10mL q4h until goal rate is reached Chronic pancreatitis, unspecified pancreatitis t ype 07/06/2021 Assessment & Plan (07/13/2021 9:42 AM POLITICAL CONSULTANT): Ongoing acute episode of (developing) chronic [...] rest with enteral feedings. GI consult pt cherelle placed 2/[address] c/s tube feeding plan initiated and now at goal feeding and tolerating well. Will wean from IV pain meds to oxycodone for discharge to home Assessment & Plan (07/12/2021 9:38 AM POLITICAL CONSULTANT): Ongoing acute episode of (developing) chronic [...] 07/13 Assessment & Plan (07/11/2021 10:53 AM POLITICAL CONSULTANT): Ongoing acute episode of (developing) chronic [...] discharge Assessment & Plan (07/10/2021 9:07 AM POLITICAL CONSULTANT): Ongoing acute episode of developing chronic [...] feedings Assessment & Plan (07/09/2021 2:30 PM POLITICAL CONSULTANT): Ongoing acute episode of chronic pancreatitis. [...] CTM Assessment & Plan (07/08/2021 1:49 PM POLITICAL CONSULTANT): Ongoing acute episode of chronic pancreatitis. [...] plan Assessment & Plan (07/07/2021 11:22 AM POLITICAL CONSULTANT): Ongoing acute episode of chronic pancreatitis. [...] plan Assessment & Plan (07/06/2021 5:30 PM POLITICAL CONSULTANT): Ongoing acute episode of chronic pancreatitis. [...] 07/06/2021 Assessment & Plan (07/13/2021 9:42 AM POLITICAL CONSULTANT): Likely ATN related to hypotensive episode. Cr peaked at Cr at 2.31, now back to baseline after aggressive IVF and now tolerating TF. Assessment & Plan (07/12/2021 9:36 AM POLITICAL CONSULTANT): Likely ATN related to hypotensive episode. Cr peaked at Cr at 2.31, now back to baseline after aggressive IVF and now tolerating TF. Assessment & Plan (07/11/2021 10:54 AM POLITICAL CONSULTANT): Likely ATN related to hypotensive episode. Cr peaked at Cr at 2.31, now back to baseline after aggressive IVF, continue to monitor bmp, continue fluids Assessment & Plan (07/10/2021 9:08 AM POLITICAL CONSULTANT): Likely ATN related to hypotensive episode. Cr peaked at Cr at 2.31, now back to baseline after aggressive IVF, continue to monitor bmp, continue fluids Assessment & Plan (07/09/2021 2:29 PM POLITICAL CONSULTANT): Cr at baseline after aggressive IVF, continue to monitor bmp, continue fluids Assessment & Plan (07/08/2021 1:10 PM POLITICAL CONSULTANT): Cr baseline 0.8 now up to 1.3 on arrival due to po intolerance Aggressive IVF will monitor urine output Today net fluid intake 191 Cr trended up to 2.31 continue aggressive fluids Daily bmp Continue IVF Assessment & Plan (07/07/2021 11:19 AM POLITICAL CONSULTANT): Cr baseline 0.8 now up to 1.3 on arrival due to po intolerance Aggressive IVF will monitor urine output Today net fluid intake 191 Cr 1.05 improving with fluids Daily bmp Continue IVF Assessment & Plan (07/06/2021 5:39 PM POLITICAL CONSULTANT): Cr baseline 0.8 now up to 1.3 on arrival due to po intolerance Aggressive IVF will monitor urine output Alcohol dependence 06/25/2021 Assessment & Plan (06/07/2023 5:01 AM POLITICAL CONSULTANT): Last drink on [place] and he reports being motivated to remain [...] program Assessment & Plan (07/13/2021 9:42 AM POLITICAL CONSULTANT): Has a long history of alcohol [...] Group Assessment & Plan (07/12/2021 9:36 AM POLITICAL CONSULTANT): Has a long history of alcohol [...] Group Assessment & Plan (07/11/2021 10:54 AM POLITICAL CONSULTANT): Has a long history of alcohol [...] Group Assessment & Plan (07/10/2021 9:05 AM POLITICAL CONSULTANT): Has a long history of alcohol [...] Group Assessment & Plan (07/09/2021 2:33 PM POLITICAL CONSULTANT): Has a long history of alcohol [...] Group Assessment & Plan (07/08/2021 1:06 PM POLITICAL CONSULTANT): Has a long history of alcohol use with dependence. He states he has not had a drink since before his ERCP 06/22/2021 and has been on Vivitrol injections. His ethanol level on arrival to the ED is negative Plan to continue EtOH cessation and support with outpatient naltrexone therapy. Assessment & Plan (07/07/2021 11:13 AM POLITICAL CONSULTANT): Has a long history of alcohol use with dependence. He states he has not had a drink since before his ERCP 06/22/2021 and has been on Vivitrol injections. His ethanol level on arrival to the ED is negative Plan to continue EtOH cessation and support with outpatient naltrexone therapy. Assessment & Plan (07/06/2021 5:22 PM POLITICAL CONSULTANT): Has a long history of alcohol use with dependence. He states he has not had a drink since before his ERCP 06/22/2021 and has been on Vivitrol injections. His ethanol level on arrival to the ED is negative Plan to continue EtOH cessation and support with outpatient naltrexone therapy Assessment & Plan (06/28/2021 11:39 AM POLITICAL CONSULTANT): Long standing hx of alcohol dependence with hx of short term remission. Last drink was 1/. States he usually drinks hard liquor shot . Denies hx of seizure or delirium. On vivitrol but did not receive this month's shot due to being on analgesic for post ERCP pain control. -thiamine -folate -MVI -ciwa protocol - PRN Ativan, has not needed Assessment & Plan (06/27/2021 11:47 AM POLITICAL CONSULTANT): Long standing hx of alcohol dependence [...] needed Assessment & Plan (06/26/2021 11:59 AM POLITICAL CONSULTANT): Long standing hx of alcohol dependence [...] 06/25/2021 Assessment & Plan (06/07/2023 5:06 AM POLITICAL CONSULTANT): Markedly hypertensive on ED arrival in the setting of pain -Continue home Amlodipine 10 mg qday and losartan 25 mg qday Assessment & Plan (06/05/2023 12:47 PM POLITICAL CONSULTANT): Hypertensive initially from pain. Improved today. Cont home meds. Assessment & Plan (04/12/2023 6:21 PM POLITICAL CONSULTANT): -continue norvasc Assessment & Plan (04/10/2023 2:31 AM POLITICAL CONSULTANT): -resume norvasc in AM Assessment & Plan (01/11/2022 11:23 AM CDT): Continue norvasc Assessment & Plan (01/10/2022 11:40 AM CDT): Continue norvasc Assessment & Plan (07/13/2021 9:43 AM POLITICAL CONSULTANT): Continue to hold home lisinopril on account of recent hypotension/JOSE. With low normotensive BP will discontinue lisinopril. Follow up with PCP in 2-4 weeks to re evaluate restarting if needed Assessment & Plan (07/12/2021 9:38 AM POLITICAL CONSULTANT): Continue to hold home lisinopril on account of recent hypotension/JOSE. BP normal, may not require lisinopril on discharge. Assessment & Plan (07/11/2021 10:54 AM POLITICAL CONSULTANT): Continue to hold home lisinopril on account of recent hypotension/JOSE. BP normal, may not require lisinopril on discharge. Assessment & Plan (07/10/2021 9:06 AM POLITICAL CONSULTANT): Continue to hold home lisinopril on account of recent hypotension Assessment & Plan (07/09/2021 2:32 PM POLITICAL CONSULTANT): Continue to hold home lisinopril until more stable BP Assessment & Plan (07/08/2021 1:06 PM POLITICAL CONSULTANT): BP hypotensive overnight hold antihypertensives at this time. Assessment & Plan (07/07/2021 11:15 AM POLITICAL CONSULTANT): BP on remain normotensive Continue lisinopril and pain control Assessment & Plan (07/06/2021 5:30 PM POLITICAL CONSULTANT): BP on arrival normotensive Continue lisinopril and pain control Assessment & Plan (06/28/2021 11:39 AM POLITICAL CONSULTANT): Continue home lisinopril 40 mg -Monitor BP -BP stable Assessment & Plan (06/27/2021 11:48 AM POLITICAL CONSULTANT): Continue home lisinopril 40 mg -Monitor BP/Cr -BP stable Assessment & Plan (06/25/2021 4:55 PM POLITICAL CONSULTANT): Continue home lisinopril 40 mg -Monitor BP/Cr -Daily BMP Tobacco abuse 06/25/2021 Major depressive disorder 06/25/2021 Assessment & Plan (06/07/2023 5:07 AM POLITICAL CONSULTANT): Continue home duloxetine 30 mg BID and trazodone 50 mg qhs Assessment & Plan (06/04/2023 11:58 AM POLITICAL CONSULTANT): Cont home meds Assessment & Plan (01/11/2022 11:23 AM CDT): Continue duloxetine scheduled and trazodone prn Assessment & Plan (01/10/2022 11:40 AM CDT): Continue duloxetine scheduled and trazodone prn Assessment & Plan (07/13/2021 9:43 AM POLITICAL CONSULTANT): Most certainly contributing to his long standing alcohol use. Continue home meds duloxetine and trazodone Assessment & Plan (07/12/2021 9:38 AM POLITICAL CONSULTANT): Most certainly contributing to his long standing alcohol use. Continue home meds duloxetine and trazodone Assessment & Plan (07/11/2021 10:54 AM POLITICAL CONSULTANT): Most certainly contributing to his long standing alcohol use. Continue home meds duloxetine and trazodone Assessment & Plan (07/10/2021 9:06 AM POLITICAL CONSULTANT): Most certainly contributing to his long standing alcohol use. Continue home meds duloxetine and trazodone Assessment & Plan (07/09/2021 2:30 PM POLITICAL CONSULTANT): Most certainly contributing to his long standing alcohol use now with cessation Continue home meds duloxetine and trazodone Assessment & Plan (07/08/2021 1:09 PM POLITICAL CONSULTANT): Most certainly contributing to his long standing alcohol use now with cessation Continue home meds duloxetine and trazodone Assessment & Plan (07/07/2021 11:16 AM POLITICAL CONSULTANT): Most certainly contributing to his long standing alcohol use now with cessation Continue home meds duloxetine and trazodone Assessment & Plan (07/06/2021 5:32 PM POLITICAL CONSULTANT): Most certainly contributing to his long standing alcohol use now with cessation Continue home meds duloxetine and trazodone Assessment & Plan (06/28/2021 11:39 AM POLITICAL CONSULTANT): Continue home Trazodone 50 mg, Cymbalta 30 mg Resume Biofeedback at discharge Assessment & Plan (06/27/2021 11:48 AM POLITICAL CONSULTANT): Continue home Trazodone 50 mg, Cymbalta 30 mg Resume Biofeedback at discharge Assessment & Plan (06/25/2021 4:57 PM POLITICAL CONSULTANT): Continue home Trazodone 50 mg, Cymbalta 30 mg Resume Biofeedback at discharge Pancreatic duct obstruction 06/11/2021 Overview (06/11/2021): Added automatically from request for surgery [id number] Abdominal pain 06/11/2021 Overview (06/11/2021): Added automatically from request for surgery [id number] Necrotizing pancreatitis 10/21/2019 Therapeutic opioid induced constipation 10/21/19 20 Assessment & Plan (07/13/2021 9:44 AM POLITICAL CONSULTANT): Continue bowel regimen Assessment & Plan (07/12/2021 9:41 AM POLITICAL CONSULTANT): Bowel regimen ordered without BM. Will titrate bowel regimen Assessment & Plan (07/11/2021 10:58 AM POLITICAL CONSULTANT): Bowel regimen ordered Assessment & Plan (06/28/2021 11:39 AM POLITICAL CONSULTANT): Pt states no BM for the past week. Likely due to decrease intake and vomiting, possible contribution from opioids -daily bowel regimen, had BM Monday Assessment & Plan (06/27/2021 11:48 AM POLITICAL CONSULTANT): Pt states no BM for the past week. Likely due to decrease intake and vomiting, possible contribution from opioids -daily bowel regimen Assessment & Plan (06/26/2021 12:00 PM POLITICAL CONSULTANT): Pt states no BM for the past week. Likely due to decrease intake and vomiting, possibly contribution from opioids -daily bowel regimen -clear liquid diet Acute pancreatitis 05/08/2019 Assessment & Plan (06/28/2021 11:38 AM POLITICAL CONSULTANT): Hx of chronic pancreatis starting 3 [...] prioritized. Assessment & Plan (06/27/2021 11:46 AM POLITICAL CONSULTANT): Hx of chronic pancreatis starting 3 [...] prioritized. Assessment & Plan (06/26/2021 11:59 AM POLITICAL CONSULTANT): Hx of chronic pancreatis starting 3 [...] 04/11/2023 Assessment & Plan (04/10/2023 2:38 AM POLITICAL CONSULTANT): -migrated stent likely etiology of presenting symptoms and lab, CT findings -will likely need ERCP for stent exchange on Monday Metabolic acidosis, increased anion gap (IAG) 06/25/1907/09/2021 Assessment & Plan (07/09/2021 2:31 PM POLITICAL CONSULTANT): Dobbhoff placed 07/08, to start tube feeding TF recommendations: Goal: Osmolite 1.5 at 55mL/hr over 24h via [place] tube continuous via pump. Flush with 150mL water q4h. Initiate TF at 10mL/hr and increase by 10mL q4h until goal rate is reached Assessment & Plan (07/08/2021 1:49 PM POLITICAL CONSULTANT): Due to starvation in the setting [...] reached Assessment & Plan (07/07/2021 11:16 AM POLITICAL CONSULTANT): Due to starvation in the setting of intolerance to PO for the last 3-4 days. Will provide aggressive IVF Continue to discuss enteral feedings with the patient going forward, currently pt is refusing, GI will readdress with pt today with goal for placement today should pt agree. Change IVF to D5LR Assessment & Plan (07/06/2021 5:38 PM POLITICAL CONSULTANT): Due to starvation in the setting of intolerance to PO for the last 3-4 days. Will provide aggressive IVF Continue to discuss enteral feedings with the patient going forward Assessment & Plan (06/28/2021 11:39 AM POLITICAL CONSULTANT): Likely dehydration from pancreatitis, n/v and poor intake. Heme concentrated hgb 14.9 (baseline 8-9), wbc 14.4 no source of infection likely heme concentrated, anion gap 20, UA ketone +1. Resolved with IVF Assessment & Plan (06/27/2021 11:47 AM POLITICAL CONSULTANT): Likely dehydration from pancreatitis, n/v and poor intake. Heme concentrated hgb 14.9 (baseline 8-9), wbc 14.4 no source of infection likely heme concentrated, anion gap 20, UA ketone +1. Resolved with IVF Assessment & Plan (06/26/2021 12:00 PM POLITICAL CONSULTANT): Likely dehydration from pancreatitis, n/v and poor intake. Heme concentrated hgb 14.9 (baseline 8-9), wbc 14.4 no source of infection likely heme concentrated, anion gap 20, UA ketone +1 -IVF -Clear liquid diet -Daily bmp Encounters Date Type Department Care Team Description 07/23/2024 10:42 AM POLITICAL CONSULTANT - 07/23/2024 3:32 PM POLITICAL CONSULTANT Emergency [facility] Emergency Department [address] [place] [address] Discharge Disposition: Left without being seen from Last 3 Months Immunizations Immunization Administration Dates Next Due Flucelvax [...] drink = 0.6 oz pur e alcohol) [facility] [employer] Answer Date Recorded In the past 12 months has e electric, gas, oil, or water company [...] often do you attend chur ch or synagogue services? 1 to 4 times per year [...] place to sleep or slept in a group home (including now)? No 09/21/2023 Personal Safety Answer Date Recorded Have you ever been in or are you currently in a harmful physical or emotional relationship or is someone making you feel afraid or unsafe? Denies 07/23/2024 Sex and Gender Information Value Date Recorded Sex Assigned at Not on file Legal Sex Male 1:58 AM POLITICAL CONSULTANT Gender Identity Not on file Sexual Orientation Not on file Occupation Industry Job Start Date Job End Date disability Not on file Not on file Not on file Obstetrics History Last Filed Vital Signs Vital Sign Reading Time Taken Comments Blood Pressure 125/77 07/23/2024 10:51 AM POLITICAL CONSULTANT Pulse 100 07/23/2024 10:51 AM POLITICAL CONSULTANT Temperature 36.4 C (97.6 F) 07/23/2024 10:51 AM POLITICAL CONSULTANT Respiratory Rate 16 07/23/2024 10:51 AM POLITICAL CONSULTANT Oxygen Saturation 99% 07/23/2024 10:51 AM POLITICAL CONSULTANT Inhaled Oxygen Concentration - - Weight 86.2 kg (190 lb) 07/23/2024 10:51 AM POLITICAL CONSULTANT Height 182.9 cm (6') 07/23/2024 10:51 AM POLITICAL CONSULTANT Body Mass Index 25.77 07/23/2024 10:51 AM POLITICAL CONSULTANT Plan of Treatment Health Maintenance Due Date Last Done Comments Colon Cancer Screening-Colonoscopy 1967 Depression Screening 1967 Hepatitis C Screening 1967 Prostate Cancer Screening-PSA 1967 Hepatitis B Screening 10/16/1985 Regular Well Visit/Exam 18-64 10/16/1985 Pneumococcal vaccine <65 (1 of 2 - PCV) 10/16/1986 DTaP/Tdap/Td Vaccine (1 - Tdap) 07/02/1998 9 Zoster Vaccine (1 of 2) 10/16/2017 Covid-19 Vaccine (3 - 2023- season) 2024, 07/28/2020 Influenza Vaccine (#1) 2024 , 03/03/2019, 02/05/2018 Medical Devices Implanted Type Area Photovoltaic Fabrication Technician Device Identifier Shelf Expiration Date Model / Serial / Lot [employer] Kemal 8.5 Fr Nasal Biliary Catheter [id number] - [id number] Implanted:Qty: 1 on 01/26/2022 by Kenneth Loya MD at [facility] Catheter [employer] 06/22/2024 [id number] / / [id number] [employer] Kemal 10fr 5cm Biliary Double Pigtail Stent [id number] - [id number] Implanted:Qty: 1 on 09/21/2023 by Kenneth Loya MD at [facility] Stent N/A: Bile Duct [employer]al 08/14/2025 [id number] / / [id number] [employer] Kem[employer] 10fr 5cm Biliary Stent [id number] - [id number] Implanted:Qty: 1 on 09/21/2023 by Kenneth Loya MD at [facility] Stent N/A: Bile Duct [employer] Kemal 07/03/2025 [id number] / / [id number] [employer] Kemal 10fr 5cm Biliary Double Pigtail Stent [id number] - [id number] Implanted:Qty: 1 on 09/21/2023 by Kenneth Loya MD at [facility] Stent N/A: Bile Duct [employer] 08/23/2025 [id number] / / [id number] [employer] 10fr 5cm Biliary Double Pigtail Stent [id number] - [id number] Implanted:Qty: 1 on 09/21/2023 by Kenneth Loya MD at [facility] Stent N/A: Bile Duct [employer] Kemal 08/23/2025 [id number] / / [id number] [employer] Kem[employer] 10fr 5cm Biliary Double Pigtail Stent [id number] - [id number] Implanted:Qty: 1 on 09/21/2023 by Kenneth Loya MD at [facility] Stent N/A: Bile Duct [employer] 08/14/2025 [id number] / / [id number] [employer] 10fr 7cm Biliary Stent [id number] - [id number] Implanted:Qty: 1 on 04/10/2023 by John De Anda MD at [facility] [employer] [id number] 12/13/2024 [id number] / / [id number] [employer] 10fr 7cm Biliary Stent [id number] - [id number] Implanted:Qty: 1 on 04/10/2023 by John De Anda MD at [facility] [employer] [id number] 02/07/2025 [id number] / / [id number] Explanted Type Area Photovoltaic Fabrication Technician Device Identifier Shelf Expiration Date Model / Serial / Lot [employer] [id number] Cotton-Young 10fr 7cm Taper Tip Guidewire Proximal Distal Flap - [id number] Implanted:Qty: 1 on 08/04/2021 by Kenneth Loya MD at [facility] Explanted:Qty: 1 on 08/30/2021 at [facility] Stent N/A: Bile Duct [employer] 01/28/2024 [id number] / / [id number] [employer] 10 X 10 Stent Delivery System [id number] - [id number] Implanted:Qty: 1 on 08/04/2021 by Kenneth Loya MD at [facility] Explanted:Qty: 1 on 08/30/2021 at [facility] Stent N/A: Bile Duct [employer] Kem[employer] 10/13/2022 [id number] / / [id number] [employer] Geenen 7fr 7cm Positioning Sleeve Push Catheter Guidewire [id number] - [id number] Implanted:Qty: 1 on 08/30/2021 at [facility] Explanted:Qty: 1 on 11/01/2021 by Kennteh Loya MD at [facility] Stent N/A: Pancreas [employer] 11/06/2023 [id number] / / [id number] [employer] 10fr 5cm Biliary Stent [id number] - [id number] Implanted:Qty: 1 on 01/26/2022 by Kenneth Loya MD at [facility] Explanted:Qty: 1 on 04/06/2022 by Kenneth Loya MD at [facility] Stent [employer] 11/16/2023 [id number] / / [id number] [employer] Advanix Naviflex 7fr 9cm Radiopaque Corona Endo Marker Color Coded [id number] - [id number] Implanted:Qty: 1 on 01/26/2022 by Kenneth Loya MD at [facility] Explanted:Qty: 1 on 04/06/2022 at [facility] Stent [employer] 04/16/2023 [id number] / / [id number] [employer] Advanix 8.5fr 7cm Rapid Exchange Temporary [place] Stent [id number] - [id number] Implanted:Qty: 1 on 04/06/2022 by Kenneth Loya MD at [facility] Explanted:Qty: 1 on 07/06/2022 by Kenneth Loya MD at [facility] Stent N/A: Pancreas [employer] 10/26/2023 [id number] / / [id number] [employer] Advanix 8.5fr 7cm Rapid Exchange Temporary [place] Stent [id number] - [id number] Implanted:Qty: 1 on 04/06/2022 by Kenneth Loya MD at [facility] Explanted:Qty: 1 on 07/06/2022 by Kenneth Loya MD at [facility] Stent N/A: Pancreas [employer] 10/26/2023 [id number] / / [id number] [employer] 10fr 5cm Biliary Stent [id number] - [id number] Implanted:Qty: 1 on 09/08/2022 by Kenneth Loya MD at [facility] Explanted:Qty: 1 on 11/03/2022 by Kenneth Loya MD at [facility] Stent N/A: Bile Duct [employer] 08/07/2024 [id number] / / [id number] [employer] 10fr 5cm Biliary Stent [id number] - [id number] Implanted:Qty: 1 on 09/08/2022 by Kenneth Loya MD at [facility] Explanted:Qty: 1 on 11/03/2022 by Kenneth Loya MD at [facility] Stent N/A: Bile Duct [employer] 05/04/2024 [id number] / / [id number] [employer] Cartwright Flexi-Stent 7fr 7cm Small Pigtail Flexible .035in Stent 6574 - [id number] Implanted:Qty: 1 on 09/08/2022 by Kenneth Loya MD at [facility] Explanted:Qty: 1 on 11/03/2022 by Kenneth Loya MD at [facility] Stent N/A: Bile Duct [employer] 05/28/2027 [id number] / / [id number] [employer] Geenen 8.5fr 9cm Drain Obstructed Positioning Sleeve Pushing [id number] - [id number] Implanted:Qty: 1 on 04/06/2022 by Kenneth Loya MD at [facility] Explanted:Qty: 1 on 01/05/2023 by Kenneth Loya MD at [facility] Stent N/A: Pancreas [employer] 05/03/2024 [id number] / / [id number] [employer] Cartwright Flexi-Stent 7fr 7cm Small Pigtail Flexible .035in Stent 6574 - [id number] Implanted:Qty: 1 on 11/03/2022 by Kenneth Loya MD at [facility] Explanted:Qty: 1 on 01/05/2023 by Kenneth Loya MD at [facility] Stent N/A: Pancreas [employer] 05/28/2027 6574 / / [id number] [employer] 10fr 5cm Biliary Stent [id number] - [id number] Implanted:Qty: 1 on 11/03/2022 by Kenneth Loya MD at [facility] Explanted:Qty: 1 on 01/05/2023 at [facility] Stent N/A: Bile Duct [employer] 08/15/2024 [id number] / / [id number] [employer] Cotton-Young 10fr 5cm Taper Tip Soft Proximal Distal Flap Gentle [id number] - [id number] Implanted:Qty: 1 on 11/03/2022 by Kenneth Loya MD at [facility] Explanted:Qty: 1 on 01/05/2023 by Kenneth Loya MD at [facility] Stent N/A: Bile Duct [employer] 08/10/2025 [id number] / / [id number] [employer] Cartwright Flexi-Stent 4fr 7cm Small Pigtail Flexible .025in Stent 6544 - [id number] Implanted:Qty: 1 on 01/05/2023 by Kenneth Loya MD at [facility] Explanted:Qty: 1 on 06/02/2023 at [facility] Stent N/A: Pancreas [employer] 07/27/2027 [id number] / / [id number] Description:Not present on t his procedure [employer] 10fr 7cm Biliary Stent [id number] - [id number] Implanted:Qty: 1 on 01/05/2023 by Kenneth Loya MD at [facility] Explanted:Qty: 1 on 06/02/2023 by Jero Soto MD at [facility] Stent N/A: Bile Duct [employer] 12/13/2024 [id number] / / [id number] [employer] 10fr 7cm Biliary Stent [id number] - [id number] Implanted:Qty: 1 on 01/05/2023 by Kenneth Loya MD at [facility] Explanted:Qty: 1 on 06/02/2023 by Jero Soto MD at [facility] Stent N/A: Bile Duct [employer] 12/13/2024 [id number] / / [id number] [employer] 10fr 5cm Biliary Double Pigtail Stent [id number] - [id number] Implanted:Qty: 1 on 06/02/2023 by Kenneth Loya MD at [facility] Explanted:Qty: 1 on 09/21/2023 by Kenneth Loya MD at [facility] Stent N/A: Bile Duct [employer] 04/30/2025 [id number] / / [id number] [employer] 10fr 5cm Biliary Double Pigtail Stent [id number] - [id number] Implanted:Qty: 1 on 06/02/2023 by Kenneth Loya MD at [facility] Explanted:Qty: 1 on 09/21/2023 by Kenneth Loya MD at [facility] Stent N/A: Bile Duct [employer] 04/30/2025 [id number] / / [id number] [employer] 10fr 5cm Biliary Stent [id number] - [id number] Implanted:Qty: 1 on 06/02/2023 by Kenneth Loya MD at [facility] Explanted:Qty: 1 on 09/21/2023 by Kenneth Loya MD at [facility] Stent N/A: Bile Duct [employer] 02/28/2025 [id number] / / [id number] [employer] 10fr 5cm Biliary Double Pigtail Stent [id number] - [id number] Implanted:Qty: 1 on 06/02/2023 by Kenneth Loya MD at [facility] Explanted:Qty: 1 on 09/21/2023 by Kenneth Loya MD at [facility] Stent N/A: Bile Duct [employer] 04/30/2025 [id number] / / [id number] [employer] [id number] Advanix 10fr 5cm Rapid Exchange Temporary [place] Stent - [id number] Implanted:Qty: 1 on 06/18/2021 by Kenneth Loya MD at [facility] Explanted:Qty: 1 on 08/30/2021 at [facility] [employer] 06/30/2022 [id number] / / [id number] Description:Removed prior [employer] Advanix Od10 Fr L7 Cm 1; Temporary Duodenal Bend Stent Biliary Pl [id number] - [id number] Implanted:Qty: 1 on 08/30/2021 at [facility] Explanted:Qty: 1 on 11/01/2021 by Kenneth Loya MD at [facility] N/A: Bile Duct [employer] 06/25/2022 [id number] / / [id number] [employer] Advanix Naviflex 10fr 9cm Lead Joana Radiopaque Flexible [id number] - [id number] Implanted:Qty: 1 on 11/01/2021 by Kenneth Loya MD at [facility] Explanted:Qty: 1 on 01/05/2022 by Contreras Girard MD at [facility] N/A: Pancreas [employer] 07/18/2022 [id number] / / [id number] 10fr 5cm Biliary Stent [id number] - [id number] Implanted:Qty: 1 on 11/01/2021 by Kenneth Loya MD at [facility] Explanted:Qty: 1 on 01/05/2022 at [facility] N/A: Bile Duct [employer] 08/12/2023 [id number] / / [id number] 10fr 7cm Biliary Stent [id number] - [id number] Implanted:Qty: 1 on 11/01/2021 by Kenneth Loya MD at [facility] Explanted:Qty: 1 on 01/05/2022 by Contreras Girard MD at [facility] N/A: Bile Duct [employer] 08/23/2023 [id number] / / [id number] [employer] Cotton-Young 10fr 5cm Taper Tip Soft Proximal Distal Flap Gentle [id number] - [id number] Implanted:Qty: 1 on 01/05/2022 by Contreras Girard MD at [facility] Explanted:Qty: 1 on 01/26/2022 at [facility] N/A: Bile Duct [employer] 05/07/2022 [id number] / / [id number] [employer] Advanix 7fr 7cm Lead Joana Radiopaque Corona Endo Marker Drainage [id number] - [id number] Implanted:Qty: 1 on 07/06/2022 by Kenneth Loya MD at [facility] Explanted:Qty: 1 on 09/08/2022 by Kenneth Loya MD at [facility] N/A: Pancreas [employer] 05/03/2023 [id number] / / [id number] [employer] 10fr 5cm Biliary Stent [id number] - [id number] Implanted:Qty: 1 on 07/06/2022 by Kenneth Loya MD at [facility] Explanted:Qty: 1 on 09/08/2022 by Kenneth Loya MD at [facility] N/A: Bile Duct [employer] 12/24/2022 [id number] / / [id number] [employer] 10fr 5cm Biliary Stent [id number] - [id number] Implanted:Qty: 1 on 07/06/2022 by Kenneth Loya MD at [facility] Explanted:Qty: 1 on 09/08/2022 by Kenneth Loya MD at [facility] N/A: Bile Duct [employer] 11/16/2023 [id number] / / [id number] [employer] 10fr 7cm Biliary Stent [id number] - [id number] Explanted:Qty: 1 on 04/10/2023 by John De Anda MD at [facility] [employer] [id number] 12/13/2024 [id number] / / [id number] Description:Unable to place despite multiple attempts Procedures Procedure Name Priority Date/Time Associated Diagnosis Comments EGFR STAT 07/23/2024 11:01 AM POLITICAL CONSULTANT DIFFERENTIAL AUTO STAT 07/23/2024 11: 01 AM POLITICAL CONSULTANT ETHANOL STAT 07/23/2024 11:01 AM POLITICAL CONSULTANT CBC WITH AUTO DIFFERENTIAL STAT 07/23/2024 11:01 AM POLITICAL CONSULTANT COMPREHENSIVE METABOLIC PANEL STAT 07/23/2024 11:01 AM POLITICAL CONSULTANT from Last 3 Months Results * eGFR (07/23/2024 11:01 AM POLITICAL CONSULTANT) eGFR >90 >=60 mL/min/1. 73 m2 Comment: Interpretive Data Reference Interval Normal >/= 90 mL/min/1.73m2 Mildly decreased* 60 - 89 mL/min/1.73m2 Mildly to moderately decreased 45 - 59 mL/min/1.73m2 Moderately to severely decreased 30 - 44 mL/min/1.73m2 Severely decreased 15 - 29 mL/min/1.73m2 Kidney Failure < 15 mL/min/1.73m2 *Relative to young adult level Estimated glomerular filtration rate is determined by the 2020 CKD-EPI equation recommended by the National Kidney Foundation (A Unifying Approach to GFR Estimation: Recommendations of the NKF-ASK Task Force on Reassessing the Inclusion of Race in Diagnosing Kidney Disease, JASN 2020). The CKD-EPI equation should not be used for patients with unstable renal function and has not been validated in children and those over 70. Current interpretive data was last reviewed 2021. Blood 07/23/2024 11:0 1 AM POLITICAL CONSULTANT 07/23/2024 11:03 AM POLITICAL CONSULTANT Jonny Parada MD LAB BLOOD ORDERABLES Final Res ult [facility] 1 [facility] Department [place] [address] * Differential, auto (07/23/2024 11:01 AM POLITICAL CONSULTANT) Neutrophil abs 1.7 1.5 - 6.5 K/cumm Imm gran abs 0.0 0.0 - 0.1 K/cumm [facility] ([place] Lymphocyte abs 1.5 0.8 - 3.3 K/cumm [facility] ([place] Monocyte abs 0.6 0.2 - 0.8 K/cumm [facility] Eosinophil abs 0.0 0.0 - 0.5 K/cumm [facility] ([place] Basophil abs 0.1 0.0 - 0.1 K/cumm [facility] ([place] Neutrophil pct 42.8 % [facility] Comment: Interpretive Data Percent cell count reference ranges are not reported, since discordance with absolute values may lead to misinterpretation of CBC data. Current Interpretive Data was last revised on 2017. Imm gran pct 0.3 % [facility] ([place] Comment: Interpretive Data Percent cell count reference ranges are not reported, since discordance with absolute values may lead to misinterpretation of CBC data. Current Interpretive Data was last revised on 2017. Lymphocyte pct 38.1 % [facility] Comment: Interpretive Data Percent cell count reference ranges are not reported, since discordance with absolute values may lead to misinterpretation of CBC data. Current Interpretive Data was last revised on 2017. Monocyte pct 16.0 % [facility] ([place] Comment: Interpretive Data Percent cell count reference ranges are not reported, since discordance with absolute values may lead to misinterpretation of CBC data. Current Interpretive Data was last revised on 2017. Eosinophil pct 1.0 % [facility] ([place] Comment: Interpretive Data Percent cell count reference ranges are not reported, since discordance with absolute values may lead to misinterpretation of CBC data. Current Interpretive Data was last revised on 2017. Basophil pct 1.8 % [facility] ([place] Comment: Interpretive Data Percent cell count reference ranges are not reported, since discordance with absolute values may lead to misinterpretation of CBC data. Current Interpretive Data was last revised on 2017. Blood 07/23/2024 11:0 1 AM POLITICAL CONSULTANT 07/23/2024 11:03 AM POLITICAL CONSULTANT us Jonny Parada MD LAB BLOOD ORDERABLES Final Res ult [facility] 1 [facility] Department [place] [address] * (ABNORMAL) CBC with auto differential (07/23/2024 11:01 AM POLITICAL CONSULTANT) Pathologist [facility] [place] WBC 3.9 3.8 - 9.9 K/cumm Hgb 13.7 13.0 - 17.5 g/dL [facility] Hct 40.3 38.9 - 50.3 % [facility] Plt 485(H) 150 - 400 K/cumm [facility] MPV 8.8(L) 9.1 - 12.3 fL [facility] RBC 4.47 4.30 - 5.80 M/cumm [facility] MCV 90.2 81.3 - 96.4 fL [facility] MCH 30.6 27.1 - 33.3 pg [facility] MCHC 34.0 32.3 - 35.7 g/dL [facility] RDW CV 16.7(H) 11.1 - 14.9 % [facility] RDW SD 54.8(H) 35.7 - 48.1 fL [facility] NRBC abs 0.00 0.00 - 0.01 K/cumm [facility] Blood 07/23/2024 11:0 1 AM POLITICAL CONSULTANT 07/23/2024 11:03 AM POLITICAL CONSULTANT us Jonny Parada MD LAB BLOOD ORDERABLES Final Res ult [facility] ([place] 1 [facility] Department [place] [address] * (ABNORMAL) Ethanol (07/23/2024 11:01 AM POLITICAL CONSULTANT) Pathologist [facility] [place] Ethanol 314(C) <=10 mg/dL Comment: Critical Result called by [email or web address] at 2024-07-23 11:26:12. Result Read Back by Marine Quan ED Interpretive Data Legal limit of intoxication > or = 80 mg/dL Levels > or = 400 mg/dL are potentially TOXIC. Current interpretive data was last revised on 2018. Blood 07/23/2024 11:0 1 AM POLITICAL CONSULTANT 07/23/2024 11:03 AM POLITICAL CONSULTANT us Jonny Parada MD LAB BLOOD ORDERABLES Final Res ult [facility] ([place] 1 [facility] Department [place] [address] * (ABNORMAL) Comprehensive metabolic panel (07/23/2024 11:01 AM POLITICAL CONSULTANT) Sodium 144 135 - 145 mmol/L Potassium, pl 3.5 3.3 - 4.9 mmol/L [facility] Chloride 105 97 - 110 mmol/L [facility] CO2 23 22 - 32 mmol/L [facility] Anion gap 16(H) 2 - 15 mmol/L [facility] BUN 5(L) 6 - 25 mg/dL [facility] Creatinine 0.64(L) 0.80 - 1.30 mg/dL [facility] Glucose 133 70 - 199 mg/dL [facility] Comment: Interpretive Data Fasting glucose >/= 126 mg/dl is diagnostic for diabetes. Fasting is defined as no caloric intake for at least 8 hours. Fasting glucose between 100 mg/dl to 125 mg/dl is diagnostic of prediabetes. In a patient with classic symptoms of hyperglycemia or hyperglycemic crisis, a random glucose >/= 200 mg/dl is diagnostic for diabetes. In the absence of unequivocal hyperglycemia, results should be confirmed by repeat testing. The classification and Diagnosis of Diabetes Diabetes Care 202; 46: S19-S40. Current interpretive data was last revised 2022. Calcium 9.1 8.5 - 10.3 mg/dL [facility] Bilirubin, total <0.2 0.1 - 1.2 mg/dL [facility] ([place] Protein, pl 7.5 6.5 - 8.5 g/dL [facility] Albumin 4.0 3.5 - 5.0 g/dL [facility] Alk phos 558(H) 40 - 130 Units/L [facility] ALT 47 7 - 55 Units/L [facility] AST 98(H) 10 - 50 Units/L [facility] Blood 07/23/2024 11:0 1 AM POLITICAL CONSULTANT 07/23/2024 11:03 AM POLITICAL CONSULTANT Jonny Parada MD LAB BLOOD ORDERABLES Final Res ult [facility] ([place] 1 [facility] Department [place] [address] from Last 3 Months Insurance [employer] Advance Directives For more information, please contact: [phone] * Full Code (Latest Code Status on [...] 7:36 AM 06/02/2023 3:26 PM Care Teams Lead Level Designer Relationship Specialty Start Date End Date Don Walton PA [address] [address] PCP - General Physician Senior Supplier Quality Engineer 12/28/21
--- OUTSIDE RECORDS SUMMARY | 2024-07-31 18:03 | XMS_ITS | Encounter Summary ---
Author Organization [facility] Address [address] [place] [id number] Care Team Providers Care Human Development Professor Name Role Phone Lamberto Barker MD Primary Care Provider [phone] Encounter Details Date Type Department Care Team (Late st Contact Info) Description 01/05/2021 Hospital Follow-up Call [facility] [place] [address] Heather Adames, RN Social History Tobacco Use [...] any clubs o r organizations such as methodist groups, unions, fraternal or athletic groups, or [...] move on to questions 3-9 2 12/25/2020 [facility] - Occupational Stress Questionnaire Answer Date [...] place to sleep or slept in a long-term (including now)? No 12/25/2020 Sex and Gender [...] documented as of this encounter Care Teams Human Development Professor Relationship Specialty Start Date End Date Lamberto Barker MD [address] [place] [address] PCP - General INTERNAL MEDICINE 05/08/19 documented as of this encounter
--- OUTSIDE RECORDS SUMMARY | 2024-07-31 18:03 | XMS_ITS | Continuity of Care Document ---
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 Name Role Phone Glenn Maciel Unavailable Unavailable Procedures Procedure Date Therapeutic Activities Therapeutic Exercise Neuromuscular Re-Ed Manual Therapy Therapeutic Activities Neuromuscular Re-Ed Manual Therapy Manual [...] Activities Therapeutic Exercise Neuromuscular Re-Ed Therapeutic Exercise Neuromuscular Re-Ed Therapeutic Activities Therapeutic Activities Neuromuscular Re-Ed Therapeutic Exercise Therapeutic Activities Therapeutic Exercise Neuromuscular Re-Ed Therapeutic Activities Neuromuscular Re-Ed Therapeutic Exercise Neuromuscular Re-Ed Therapeutic Activities Therapeutic Exercise Therapeutic Activities Therapeutic Exercise Neuromuscular Re-Ed Therapeutic Activities Neuromuscular Re-Ed Therapeutic Exercise Manual Therapy Therapeutic Activities Neuromuscular Re-Ed Therapeutic Exercise Manual Therapy Therapeutic Activities Manual Therapy Therapeutic Exercise Neuromuscular Re-Ed Therapeutic Activities Progress Note Neuromuscular Re-Ed Therapeutic Exercise Manual Therapy Therapeutic Exercise Therapeutic Activities Neuromuscular Re-Ed Neuromuscular [...] Re-Ed Neuromuscular Re-Ed Therapeutic Activities Therapeutic Exercise Neuromuscular Re-Ed Therapeutic Activities Therapeutic Exercise Therapeutic Activities Neuromuscular Re-Ed Therapeutic Exercise Therapeutic Activities Therapeutic Exercise Neuromuscular Re-Ed Neuromuscular Re-Ed Therapeutic Exercise Therapeutic Activities Neuromuscular Re-Ed Therapeutic Activities Therapeutic Exercise Therapeutic Exercise Therapeutic Activities Neuromuscular Re-Ed Neuromuscular Re-Ed Therapeutic Activities Therapeutic Exercise Therapeutic Activities Neuromuscular Re-Ed Therapeutic Exercise Therapeutic Activities Therapeutic Exercise Neuromuscular Re-Ed Neuromuscular Re-Ed Therapeutic Activities Therapeutic Exercise Therapeutic Activities Therapeutic Exercise Neuromuscular Re-Ed Therapeutic Activities Neuromuscular Re-Ed Therapeutic Exercise Therapeutic Activities Neuromuscular Re-Ed Therapeutic Exercise Therapeutic Activities Neuromuscular Re-Ed Therapeutic Exercise PT Evaluation High Complexity 0 Therapeutic Activities Neuromuscular Re-Ed Therapeutic Exercise Advance Directives Directive Yes / No Effective Date File Name No Information Encounters Encounter Description Practice Location Reason(s) For Visit Diagnoses Date Provider Providers Copied on Encounter [facility] [place], [address] [address], [place], [place], [id number], [place] tel:[phone] [place] No Information Oct-0 9-202 0 Muehl Glenn. [address] [place] [address], [address], [place], [address], [place]. tel:[phone] [place], [place] [address], [place], [place], [address], [place] tel:[phone] [place] No Information Oct-0 8-202 0 Muehl Glenn. [address] [place] [address], [address], [place], [address], [place]. tel:[phone] [place] [address] [address], [place], [address], [place] tel:[phone] [place] No Information Oct-0 6-202 0 Lehnen Velma. . [facility] [address] [place], [place] [address], [place], [address], [place] tel:[phone] [place] No Information Oct-0 2-202 0 Lehnen Velma. . [facility] [address] [place], [place] [address], [place], [place], [address], [place] tel:[phone] [place] No Information Oct-0 1-202 0 Muehl Glenn. [address] [place] [address], [address], [place], [address], [place]. tel:[phone] [place], [place] [address], [place], [address], [place] tel:[phone] [place] No Information Sep-2 9-202 0 Muehl Glenn. [address] [place] [address], [address], [place], [address], [place]. tel:[phone] [place], [place] [address], [place], [address], [place] tel:[phone] [place] No Information Sep-2 4-202 0 Muehl Glenn. [address] [place] [address], [address], [place], [address], [place]. tel:[phone] [place], [place] [address], [place], [address], tel:[phone] [place] No Information Sep-2 2-202 0 Muehl Glenn. [address] [place] [address], [facility] [address], [place], [facility], [place]. tel:[phone] [place], [place] [address], [place], [place], [address], tel:[phone] [place] No Information Sep-1 8-202 0 Muehl Glenn. [address] [place] [address], [address], [place], [facility], [place]. tel:[phone] [place], [place] [address], [place], [place], [address], tel:[phone] [place] No Information Sep-1 5-202 0 Muehl Glenn. [address] [place] [address], [facility] [address], [place], [facility], [place]. tel:[phone] [place] [address], [place], [place], [address], [place] tel:[phone] [place] No Information Sep-1 1-202 0 Darío Cervantes. . [address], [place], [address], [place] tel:[phone] [place] No Information Sep-1 0-202 0 Muehl Glenn. [address] [place] [address], [facility] [address], [place], [facility], [place]. tel:[phone] [place], [place] [address], [place], [address], [place] tel:[phone] [place] No Information Sep-0 8-202 0 Muehl Glenn. [address] [place] [address], [facility] [address], [place], [facility], [place]. tel:[phone] [place] [address] [address], [place], [address], [place] tel:[phone] [place] No Information Sep-0 4-202 0 Muehl Glenn. [address] [place] [address] [address], [place], [address], [place]. tel:[phone] [place], [place] [address], [place], [address], [place] tel:[phone] [place] No Information Sep-0 3-202 0 Muehl Glenn. [address] [place] [address], [address], [place], [address], [place]. tel:[phone] [place], [place] [address], [place], [address], [place] tel:[phone] [place] No Information Sep-0 1-202 0 Muehl Glenn. [address] [place] [address], [address], [place], [address], [place]. tel:[phone] [place] [address] [address], [place], [place], [address], [place] tel:[phone] [place] No Information Aug-2 8-202 0 Threlkeld Shanell. . [address], [place], [address], [place] tel:[phone] [place] No Information Aug-2 7- 0 Muehl Glenn. [address] [place] [address], [address], [place], [address], [place]. tel:[phone] [place] [address] [address], [place], [place], [address], [place] tel:[phone] [place] No Information Aug-2 5-202 0 Muehl Glenn. [address] [place] [address], [address], [place], [address], [place]. tel:[phone] [place], [place] [address], [place], [address], [place] tel:[phone] [place] No Information Aug-2 1-202 0 Muehl Glenn. [address] [place] [address], [address], [place], [address], [place]. tel:[phone] [place] [address] [address], [place], [address], [place] tel:[phone] [place] No Information Aug-2 0-202 0 Muehl Glenn. [address] [place] [address], [address], [place], [place], [facility], [place]. tel:[phone] [place] [address] [place] [address], [place], [address], [place] tel:[phone] [place] No Information Aug-1 8-202 0 Muehl Glenn. [address] [place] [address], [address], [place], [address], [place]. tel:[phone] [place] [address] [address], [place], [address], [place] tel:[phone] [place] No Information Dec-1 3-202 0 Muehl Glenn. [address] [place] [address], [address], [place], [facility], [place]. tel:[phone] [place], [place] [address] [place] [address], [place], [address], [place] tel:[phone] [place] No Information Dec-1 1- 0 Muehl Glenn. [address] [place] [address], [address], [place], [facility], [place]. tel:[phone] [place], [place] [address] [place] [address], [place], [address], [place] tel:[phone] [place] No Information Aug-0 7-202 0 Niederhoffer Helen. . [facility], [place], [place], [address], [place] tel:[phone] [place] No Information Aug-0 6-202 0 Niederhoffer Helen. . [facility], [place], [place], [address], [place] tel:[phone] [place] No Information Aug-0 5-202 0 Jessa Carreon. . [facility], [place], [address], [place] tel:[phone] [place] No Information Nov-3 1-202 0 Muehl Glenn. [address] [place] [address], [address], [place], [address], [place]. tel:[phone] [place] [address] [address], [place], [place], [address], [place] tel:[phone] [place] No Information Nov-3 0-202 0 Muehl Glenn. [address] [place] [address], [address], [place], [address], [place]. tel:[phone] [place] [address] [address], [place], [address], [place] tel:[phone] [place] No Information Nov- 8-202 0 Muehl Glenn. [address] [place] [address], [address], [place], [address], [place]. tel:[phone] [place] [address] [address], [place], [address], [place] tel:[phone] [place] No Information 2 4-202 0 Muehl Glenn. [address] [place] [address], [address], [place], [address], [place]. tel:[phone] [place] [address] [address], [place], [place], [address], [place] tel:[phone] [place] No Information Nov-2 3-202 0 Muehl Glenn. [address] [place] [address], [address], [place], [address], [place]. tel:[phone] [place] [address] [address], [place], [address], [place] tel:[phone] [place] No Information Nov-2 1-202 0 Muehl Glenn. [address] [place] [address], [address], [place], [address], [place]. tel:[phone] [place] [address] [address], [place], [place], [address], [place] tel:[phone] [place] No Information Nov-1 6-202 0 Muehl Glenn. [address] [place] [address], [address], [place], [place], [facility], [place]. tel:[phone] [place] [address] [address], [place], [address], [place] tel:[phone] [place] No Information Nov-1 4-202 0 Muehl Glenn. [address] [place] [address], [address], [place], [facility], [place]. tel:[phone] [place] [address] [address], [place], [address], [place] tel:[phone] [place] No Information Nov-1 0-202 0 Muehl Glenn. [address] [place] [address], [address], [place], [place], [facility], [place]. tel:[phone] [place] [address] [address], [place], [address], [place] tel:[phone] [place] No Information Nov-0 9-202 0 Muehl Glenn. [address] [place] [address], [address], [place], [facility], [place]. tel:[phone] [place] [address] [address], [place], [place], [address], [place] tel:[phone] [place] No Information Nov-0 7-202 0 Muehl Glenn. [address] [place] [address], [address], [place], [facility], [place]. tel:[phone] [place] [address] [address], [place], [place], [address], [place] tel:[phone] [place] No Information Nov-0 2-202 0 Muehl Glenn. [address] [place] [address], [address], [place], [facility], [place]. tel:[phone] [place] [address] [address], [place], [address], [place] tel:[phone] [place] No Information Robert-3 0-202 0 Muehl Glenn. [address] [place] [address], [address], [place], [facility], [place]. tel:[phone] [place], [place] [address], [place], [address], tel:[phone] [place] No Information Robert-2 9-202 0 Muehl Glenn. [address] [place] [address], [address], [place], [facility], [place]. tel:[phone] [place], [place] [address], [place], [address], [place] tel:[phone] [place] No Information Robert-2 6-202 0 Muehl Glenn. [address] [place] [address], [address], [place], [facility], [place]. tel:[phone] [place] [address], [place], [address], [place] tel:[phone] [place] No Information Robert-2 5-202 0 Lehnen Velma. . [address], [place], [place], [address], [place] tel:[phone] [place] No Information Robert-2 3-202 0 Muehl Glenn. [address] [place] [address], [address], [place], [facility], [place]. tel:[phone] [place] [address] [address], [place], [address], [place] tel:[phone] [place] No Information Robert-1 9-202 0 Muehl Glenn. [address] [place] [address], [address], [place], [facility], [place]. tel:[phone] [place] [address] [address], [place], [place], [address], tel:[phone] [place] No Information Robert-1 8-202 0 Muehl Glenn. [address] [place] [address], [address], [place], [facility], [place]. tel:[phone] [place] [address] 300, [place], [place], [address], tel:[phone] [place] No Information Oct-1 6-202 0 Muehl Glenn. [address] [place] [address], [address], [place], [facility], . tel:[phone] [place] [address] 300, [place], [place], [address], tel:[phone] [place] No Information 1 2-202 0 Muehl Glenn. [address] [place] [address], [address], [place] [address], . tel:[phone] [place] [address] 300, [place], [place], [address], tel:[phone] [place] No Information 1-202 0 Muehl Glenn. [address] [place] [address], [address], [place], [facility], . tel:[phone] [place] [address] 300, [place], [place], [address], tel:[phone] [place] No Information Robert-0 9-202 0 Muehl Glenn. [address] [place] [address], [address], [place] [address], . tel:[phone] [place] [address], [place], [address], tel:[phone] [place] No Information Robert-0 5-202 0 Muehl Glenn. [address] [place] [address], [address] [address], . tel:[phone] Family History Family Member Type Diagnosis Age At Onset No Information Payers Payer name Insurance type Covered green party ID Authormarychuya skip(s) [facility] [id number] Social History Type Description Quantity Date Captured [...]
--- OUTSIDE RECORDS SUMMARY | 2024-07-31 18:03 | XMS_ITS | Encounter Summary ---
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
--- OUTSIDE RECORDS SUMMARY | 2024-07-31 18:03 | XMS_ITS | Referral Summary ---
Author Organization [facility] Address [address] [place] [address] Care Team Providers Care Peel Oven Tender Name Role Phone Don Walton Primary Care Provider Encounters Date Type Department Care Team Description 07/23/2024 10:42 AM PLATE GRINDER - 07/23/2024 3:32 PM [facility] Emergency [facility] Emergency Department [address] [place] [address] Discharge Disposition: Left without being seen from Last 3 Months Allergies Active Allergy Reactions Criticality Noted Date Comments Ciprofloxacin Hives Medium 06/02/2023 Patient stated he has previously tolerated PO. 06/02/23 had redness and hives after IV dose. Penicillins Rash Medium 05/08/2019 Pwqazytejqzh-Jmhsdbrggu-Vri trs Angioedema High 09/17/[address] [...] daily 30 patch 01/12/20 22 Active multivit djstutsx-fusd-HG-c alcium (THERA-M) 9 mg iron-400 mcg tabletIndications: [...] 06/10/2023 Assessment & Plan (06/12/2023 2:18 PM PLATE GRINDER): Patient reports feeling constipated, gassy and bloated. [...] 06/08/2023 Assessment & Plan (06/09/2023 1:55 PM PLATE GRINDER): Resolved. Acute pancreatitis, unspecif ied complication status, unspecified pancreatitis type 06/04/2023 Assessment & Plan (06/05/2023 12:45 PM PLATE GRINDER): Longstanding bouts of pancreatitis originally from EtOH [...] 06/04/2023 Assessment & Plan (06/05/2023 12:48 PM PLATE GRINDER): Likely from pancreatitis. Also tender to palpation initially so may be a musculoskeletal component from dry heaving. Trops negative. EKG no ischemic changes. He reports hx of DE in the past, unclear circumstances. He had an exercise stress test in spring at an outside facility that he says was normal. Cont ASA. Gram-negative bacteremia 04/11/2023 Assessment & Plan (04/13/2023 7:02 PM PLATE GRINDER): - due to cholangitis - BCx + for E coli and K. Pneumoniae - repeat BCx drawn 04/11, ngtd - pansensitive organisms - d/c home today with flagyl/cipro Cholangitis 04/10/2023 Assessment & Plan (04/12/2023 6:21 PM PLATE GRINDER): - Improving - 04/10 ERCP - removal of two migrates stents with biliary obstruction and replaced with 2 new stents in biliary stricture - PRN analgesics and antiemetics Assessment & Plan (04/10/2023 2:40 AM PLATE GRINDER): -meets [place] criteria for acute cholangitis based [...] less likely MRCP------> GI consult ordered in [facility] -NPO x sips, ice chips -IVFs overnight -PRN analgesics and antiemetics -repeat CBC, BMP, HFP in AM 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 Encounter for removal of biliary stent 3 Acute recurrent pancreatitis 01/26/2022 Post-ERCP acute pancreatitis 01/04/2022 Assessment & Plan (06/13/2023 2:35 PM PLATE GRINDER): Recently admitted from 06/04-06/05/23 after ERCP on [...] (01/05/2022): Added automatically from request for surgery [id number] Assessment & Plan (04/11/2023 3:57 PM PLATE GRINDER): - improving -2/2 stent migration and resultant biliary obstruction Assessment & Plan (04/10/2023 2:27 AM PLATE GRINDER): -2/2 stent migration and resultant biliary obstruction -mgmt as above -repeat HFP in AM 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 Overview (11/30/2021): Added automatically from request for surgery [id number] Encounter for replacement of biliary stent 11/30 Overview (11/30/2021): Added automatically from request for surgery [id number] 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 Pancreatic pseudocyst 07/26/2021 Severe sepsis 07/08/2021 Assessment & Plan (07/13/2021 9:43 AM PLATE GRINDER): Pt elevated temp on 07/07 overnight 38.1 [...] infection Assessment & Plan (07/12/2021 9:40 AM PLATE GRINDER): Pt elevated temp on 2 overnight 38.1 [...] infection Assessment & Plan (07/11/2021 10:55 AM PLATE GRINDER): Pt elevated temp on 2 overnight 38.1 [...] bed Assessment & Plan (07/10/2021 9:10 AM PLATE GRINDER): Pt elevated temp on 07/07 overnight 38.1 [...] daily Assessment & Plan (07/09/2021 2:23 PM PLATE GRINDER): Pt elevated temp on 2 overnight 38.1 [...] daily Assessment & Plan (07/08/2021 1:53 PM PLATE GRINDER): Pt elevated temp overnight 38.1 max, hypotensive [...] 07/07/2021 Assessment & Plan (07/13/2021 9:43 AM PLATE GRINDER): Dobbhoff placed 2/10, tube feeding to initiated Osmolite 1.5 at 55mL/hr over 24h via NJ tube continuous via pump. Flush with 150mL water q4h. Now at goal of 55cc/hr. Can cycle at home as instructed. Will continue TF until follow up with GI as outpatient Assessment & Plan (07/12/2021 9:39 AM PLATE GRINDER): Dobbhoff placed 2/10, tube feeding to initiated Osmolite 1.5 at 55mL/hr over 24h via NJ tube continuous via pump. Flush with 150mL water q4h. Now at goal of 55cc/hr. Can cycle at home as instructed. Will continue TF until follow up with GI as outpatient Assessment & Plan (07/11/2021 10:55 AM PLATE GRINDER): Dobbhoff placed 2/10, tube feeding to initiated [...] Phos Assessment & Plan (07/10/2021 9:08 AM PLATE GRINDER): Dobbhoff placed 07/08, tube feeding to initiated [...] Phos Assessment & Plan (07/09/2021 2:25 PM PLATE GRINDER): Dobbhoff placed 07/08, tube feeding to initiated [...] prn Assessment & Plan (07/08/2021 1:11 PM PLATE GRINDER): Dobbhoff placed 07/08, tube feeding to initiate TF recommendations: Goal: Osmolite 1.5 at 55mL/hr over 24h via NJ tube continuous via pump. Flush with 150mL water q4h. Initiate TF at 10mL/hr and increase by 10mL q4h until goal rate is reached Chronic pancreatitis, unspecified pancreatitis t ype 07/06/2021 Assessment & Plan (07/13/2021 9:42 AM PLATE GRINDER): Ongoing acute episode of (developing) chronic pancreatitis. [...] rest with enteral feedings. GI consult pt dobbdeenaff placed 2/[address] c/s tube feeding plan initiated and now at goal feeding and tolerating well. Will wean from IV pain meds to oxycodone for discharge to home Assessment & Plan (07/12/2021 9:38 AM PLATE GRINDER): Ongoing acute episode of (developing) chronic pancreatitis. [...] rest with enteral feedings. GI consult pt elida placed 2/[address] c/s tube feeding plan initiated and now at goal feeding and tolerating well. Will wean from IV pain meds to oxycodone for discharge tomorrow 07/13 Assessment & Plan (07/11/2021 10:53 AM PLATE GRINDER): Ongoing acute episode of (developing) chronic pancreatitis. [...] discharge Assessment & Plan (07/10/2021 9:07 AM PLATE GRINDER): Ongoing acute episode of developing chronic pancreatitis. [...] feedings Assessment & Plan (07/09/2021 2:30 PM PLATE GRINDER): Ongoing acute episode of chronic pancreatitis. Just [...] CTM Assessment & Plan (07/08/2021 1:49 PM PLATE GRINDER): Ongoing acute episode of chronic pancreatitis. Just [...] enteral feedings. GI consult pt dobbhoff placed 07/08 for pancreatic rest. Continue conservative treatment (IVF, analgesic, antiemetics) RD c/s for tube feeding plan Assessment & Plan (07/07/2021 11:22 AM PLATE GRINDER): Ongoing acute episode of chronic pancreatitis. Just [...] plan Assessment & Plan (07/06/2021 5:30 PM PLATE GRINDER): Ongoing acute episode of chronic pancreatitis. Just [...] 07/06/2021 Assessment & Plan (07/13/2021 9:42 AM PLATE GRINDER): Likely ATN related to hypotensive episode. Cr peaked at Cr at 2.31, now back to baseline after aggressive IVF and now tolerating TF. Assessment & Plan (07/12/2021 9:36 AM PLATE GRINDER): Likely ATN related to hypotensive episode. Cr peaked at Cr at 2.31, now back to baseline after aggressive IVF and now tolerating TF. Assessment & Plan (07/11/2021 10:54 AM PLATE GRINDER): Likely ATN related to hypotensive episode. Cr peaked at Cr at 2.31, now back to baseline after aggressive IVF, continue to monitor bmp, continue fluids Assessment & Plan (07/10/2021 9:08 AM PLATE GRINDER): Likely ATN related to hypotensive episode. Cr peaked at Cr at 2.31, now back to baseline after aggressive IVF, continue to monitor bmp, continue fluids Assessment & Plan (07/09/2021 2:29 PM PLATE GRINDER): Cr at baseline after aggressive IVF, continue to monitor bmp, continue fluids Assessment & Plan (07/08/2021 1:10 PM PLATE GRINDER): Cr baseline 0.8 now up to 1.3 on arrival due to po intolerance Aggressive IVF will monitor urine output Today net fluid intake 191 Cr trended up to 2.31 continue aggressive fluids Daily bmp Continue IVF Assessment & Plan (07/07/2021 11:19 AM PLATE GRINDER): Cr baseline 0.8 now up to 1.3 on arrival due to po intolerance Aggressive IVF will monitor urine output Today net fluid intake 191 Cr 1.05 improving with fluids Daily bmp Continue IVF Assessment & Plan (07/06/2021 5:39 PM PLATE GRINDER): Cr baseline 0.8 now up to 1.3 on arrival due to po intolerance Aggressive IVF will monitor urine output Alcohol dependence 06/25/2021 Assessment & Plan (06/07/2023 5:01 AM PLATE GRINDER): Last drink on and he reports being motivated to remain abstinent as he knows this helps his pancreatitis Assessment & Plan (01/11/2022 11:23 AM CDT): Long history of dependence. States decreased intake since May but recent binge this past weekend after a in family. Had been on vivitrol injections outpatient. -s/p precedex gtt, now on valium 5mg po TID with taper plan, was decrease to bid 8/15. Plan to decrease daily for 2 days [...] with taper plan, will decrease to bid 8/15. -recommend outpt follow up psychiatry, AA program Assessment & Plan (07/13/2021 9:42 AM PLATE GRINDER): Has a long history of alcohol use [...] Group Assessment & Plan (07/12/2021 9:36 AM PLATE GRINDER): Has a long history of alcohol use [...] Group Assessment & Plan (07/11/2021 10:54 AM PLATE GRINDER): Has a long history of alcohol use [...] Group Assessment & Plan (07/10/2021 9:05 AM PLATE GRINDER): Has a long history of alcohol use [...] Group Assessment & Plan (07/09/2021 2:33 PM PLATE GRINDER): Has a long history of alcohol use [...] Group Assessment & Plan (07/08/2021 1:06 PM PLATE GRINDER): Has a long history of alcohol use with dependence. He states he has not had a drink since before his ERCP 06/22/2021 and has been on Vivitrol injections. His ethanol level on arrival to the ED is negative Plan to continue EtOH cessation and support with outpatient naltrexone therapy. Assessment & Plan (07/07/2021 11:13 AM PLATE GRINDER): Has a long history of alcohol use with dependence. He states he has not had a drink since before his ERCP 06/22/2021 and has been on Vivitrol injections. His ethanol level on arrival to the ED is negative Plan to continue EtOH cessation and support with outpatient naltrexone therapy. Assessment & Plan (07/06/2021 5:22 PM PLATE GRINDER): Has a long history of alcohol use with dependence. He states he has not had a drink since before his ERCP 06/22/2021 and has been on Vivitrol injections. His ethanol level on arrival to the ED is negative Plan to continue EtOH cessation and support with outpatient naltrexone therapy Assessment & Plan (06/28/2021 11:39 AM PLATE GRINDER): Long standing hx of alcohol dependence with [...] needed Assessment & Plan (06/27/2021 11:47 AM PLATE GRINDER): Long standing hx of alcohol dependence with [...] needed Assessment & Plan (06/26/2021 11:59 AM PLATE GRINDER): Long standing hx of alcohol dependence with [...] 06/25/2021 Assessment & Plan (06/07/2023 5:06 AM PLATE GRINDER): Markedly hypertensive on ED arrival in the setting of pain -Continue home Amlodipine 10 mg qday and losartan 25 mg qday Assessment & Plan (06/05/2023 12:47 PM PLATE GRINDER): Hypertensive initially from pain. Improved today. Cont home meds. Assessment & Plan (04/12/2023 6:21 PM PLATE GRINDER): -continue norvasc Assessment & Plan (04/10/2023 2:31 AM PLATE GRINDER): -resume norvasc in AM Assessment & Plan (01/11/2022 11:23 AM CDT): Continue norvasc Assessment & Plan (01/10/2022 11:40 AM CDT): Continue norvasc Assessment & Plan (07/13/2021 9:43 AM PLATE GRINDER): Continue to hold home lisinopril on account of recent hypotension/JOSE. With low normotensive BP will discontinue lisinopril. Follow up with PCP in 2-4 weeks to re evaluate restarting if needed Assessment & Plan (07/12/2021 9:38 AM PLATE GRINDER): Continue to hold home lisinopril on account of recent hypotension/JOSE. BP normal, may not require lisinopril on discharge. Assessment & Plan (07/11/2021 10:54 AM PLATE GRINDER): Continue to hold home lisinopril on account of recent hypotension/JOSE. BP normal, may not require lisinopril on discharge. Assessment & Plan (07/10/2021 9:06 AM PLATE GRINDER): Continue to hold home lisinopril on account of recent hypotension Assessment & Plan (07/09/2021 2:32 PM PLATE GRINDER): Continue to hold home lisinopril until more stable BP Assessment & Plan (07/08/2021 1:06 PM PLATE GRINDER): BP hypotensive overnight hold antihypertensives at this time. Assessment & Plan (07/07/2021 11:15 AM PLATE GRINDER): BP on remain normotensive Continue lisinopril and pain control Assessment & Plan (07/06/2021 5:30 PM PLATE GRINDER): BP on arrival normotensive Continue lisinopril and pain control Assessment & Plan (06/28/2021 11:39 AM PLATE GRINDER): Continue home lisinopril 40 mg -Monitor BP -BP stable Assessment & Plan (06/27/2021 11:48 AM PLATE GRINDER): Continue home lisinopril 40 mg -Monitor BP/Cr -BP stable Assessment & Plan (06/25/2021 4:55 PM PLATE GRINDER): Continue home lisinopril 40 mg -Monitor BP/Cr -Daily BMP Tobacco abuse 06/25/2021 Major depressive disorder 06/25/2021 Assessment & Plan (06/07/2023 5:07 AM PLATE GRINDER): Continue home duloxetine 30 mg BID and trazodone 50 mg qhs Assessment & Plan (06/04/2023 11:58 AM PLATE GRINDER): Cont home meds Assessment & Plan (01/11/2022 11:23 AM CDT): Continue duloxetine scheduled and trazodone prn Assessment & Plan (01/10/2022 11:40 AM CDT): Continue duloxetine scheduled and trazodone prn Assessment & Plan (07/13/2021 9:43 AM PLATE GRINDER): Most certainly contributing to his long standing alcohol use. Continue home meds duloxetine and trazodone Assessment & Plan (07/12/2021 9:38 AM PLATE GRINDER): Most certainly contributing to his long standing alcohol use. Continue home meds duloxetine and trazodone Assessment & Plan (07/11/2021 10:54 AM PLATE GRINDER): Most certainly contributing to his long standing alcohol use. Continue home meds duloxetine and trazodone Assessment & Plan (07/10/2021 9:06 AM PLATE GRINDER): Most certainly contributing to his long standing alcohol use. Continue home meds duloxetine and trazodone Assessment & Plan (07/09/2021 2:30 PM PLATE GRINDER): Most certainly contributing to his long standing alcohol use now with cessation Continue home meds duloxetine and trazodone Assessment & Plan (07/08/2021 1:09 PM PLATE GRINDER): Most certainly contributing to his long standing alcohol use now with cessation Continue home meds duloxetine and trazodone Assessment & Plan (07/07/2021 11:16 AM PLATE GRINDER): Most certainly contributing to his long standing alcohol use now with cessation Continue home meds duloxetine and trazodone Assessment & Plan (07/06/2021 5:32 PM PLATE GRINDER): Most certainly contributing to his long standing alcohol use now with cessation Continue home meds duloxetine and trazodone Assessment & Plan (06/28/2021 11:39 AM PLATE GRINDER): Continue home Trazodone 50 mg, Cymbalta 30 mg Resume Biofeedback at discharge Assessment & Plan (06/27/2021 11:48 AM PLATE GRINDER): Continue home Trazodone 50 mg, Cymbalta 30 mg Resume Biofeedback at discharge Assessment & Plan (06/25/2021 4:57 PM PLATE GRINDER): Continue home Trazodone 50 mg, Cymbalta 30 mg Resume Biofeedback at discharge Pancreatic duct obstruction 06/11/2021 Overview (06/11/2021): Added automatically from request for surgery [id number] Abdominal pain 06/11/2021 Overview (06/11/2021): Added automatically from request for surgery [id number] Necrotizing pancreatitis 10/21/2019 Therapeutic opioid induced constipation 10/21/19 20 Assessment & Plan (07/13/2021 9:44 AM PLATE GRINDER): Continue bowel regimen Assessment & Plan (07/12/2021 9:41 AM PLATE GRINDER): Bowel regimen ordered without BM. Will titrate bowel regimen Assessment & Plan (07/11/2021 10:58 AM PLATE GRINDER): Bowel regimen ordered Assessment & Plan (06/28/2021 11:39 AM PLATE GRINDER): Pt states no BM for the past week. Likely due to decrease intake and vomiting, possible contribution from opioids -daily bowel regimen, had BM Monday Assessment & Plan (06/27/2021 11:48 AM PLATE GRINDER): Pt states no BM for the past week. Likely due to decrease intake and vomiting, possible contribution from opioids -daily bowel regimen Assessment & Plan (06/26/2021 12:00 PM PLATE GRINDER): Pt states no BM for the past week. Likely due to decrease intake and vomiting, possibly contribution from opioids -daily bowel regimen -clear liquid diet Acute pancreatitis 05/08/2019 Assessment & Plan (06/28/2021 11:38 AM PLATE GRINDER): Hx of chronic pancreatis starting 3 years [...] prioritized. Assessment & Plan (06/27/2021 11:46 AM PLATE GRINDER): Hx of chronic pancreatis starting 3 years [...] prioritized. Assessment & Plan (06/26/2021 11:59 AM PLATE GRINDER): Hx of chronic pancreatis starting 3 years [...] 04/11/2023 Assessment & Plan (04/10/2023 2:38 AM PLATE GRINDER): -migrated stent likely etiology of presenting symptoms and lab, CT findings -will likely need ERCP for stent exchange on Monday Metabolic acidosis, increased anion gap (IAG) 06/25/19 22 07/09/2021 Assessment & Plan (07/09/2021 2:31 PM PLATE GRINDER): Dobbhoff placed 07/08, to start tube feeding TF recommendations: Goal: Osmolite 1.5 at 55mL/hr over 24h via [place] tube continuous via pump. Flush with 150mL water q4h. Initiate TF at 10mL/hr and increase by 10mL q4h until goal rate is reached Assessment & Plan (07/08/2021 1:49 PM PLATE GRINDER): Due to starvation in the setting of [...] reached Assessment & Plan (07/07/2021 11:16 AM PLATE GRINDER): Due to starvation in the setting of intolerance to PO for the last 3-4 days. Will provide aggressive IVF Continue to discuss enteral feedings with the patient going forward, currently pt is refusing, GI will readdress with pt today with goal for placement today should pt agree. Change IVF to D5LR Assessment & Plan (07/06/2021 5:38 PM PLATE GRINDER): Due to starvation in the setting of intolerance to PO for the last 3-4 days. Will provide aggressive IVF Continue to discuss enteral feedings with the patient going forward Assessment & Plan (06/28/2021 11:39 AM PLATE GRINDER): Likely dehydration from pancreatitis, n/v and poor intake. Heme concentrated hgb 14.9 (baseline 8-9), wbc 14.4 no source of infection likely heme concentrated, anion gap 20, UA ketone +1. Resolved with IVF Assessment & Plan (06/27/2021 11:47 AM PLATE GRINDER): Likely dehydration from pancreatitis, n/v and poor intake. Heme concentrated hgb 14.9 (baseline 8-9), wbc 14.4 no source of infection likely heme concentrated, anion gap 20, UA ketone +1. Resolved with IVF Assessment & Plan (06/26/2021 12:00 PM PLATE GRINDER): Likely dehydration from pancreatitis, n/v and poor [...] drink = 0.6 oz pur e alcohol) [facility] Utilities Answer Date Recorded In the past [...] you attend chur ch or restorationism services? 1 to 4 times per year 09/21/2023 Do you belong to any clubs o r organizations such as alevism groups, unions, fraternal or athletic groups, or [...] on file Legal Sex Male 1:58 AM PLATE GRINDER Gender Identity Not on file Sexual Orientation Not on file Occupation Industry Job Start Date Job End Date disability Not on file Not on file Not on file Last Filed Vital Signs Vital Sign Reading Time Taken Comments Blood Pressure 125/77 07/23/2024 10:51 AM PLATE GRINDER Pulse 100 07/23/2024 10:51 AM PLATE GRINDER Temperature 36.4 C (97.6 F) 07/23/2024 10:51 AM PLATE GRINDER Respiratory Rate 16 07/23/2024 10:51 AM PLATE GRINDER Oxygen Saturation 99% 07/23/2024 10:51 AM PLATE GRINDER Inhaled Oxygen Concentration - - Weight 86.2 kg (190 lb) 07/23/2024 10:51 AM PLATE GRINDER Height 182.9 cm (6') 07/23/2024 10:51 AM PLATE GRINDER Body Mass Index 25.77 07/23/2024 10:51 AM PLATE GRINDER Plan of Treatment Not on file Medical Devices Implanted Type Area Disk Sharpener Device Identifier Shelf Expiration Date Model / Serial / Lot [employer] Kemal 8.5 Fr Nasal Biliary Catheter [id number] - [id number] Implanted:Qty: 1 on 01/26/2022 by Kenneth Loya MD at [facility] Catheter [employer] 06/22/2024 [id number] / / [id number] [employer] Kem[employer] 10fr 5cm Biliary Double Pigtail Stent [id number] - [id number] Implanted:Qty: 1 on 09/21/2023 by Kenneth Loya MD at [facility] Stent N/A: Bile Duct [employer] 08/14/2025 [id number] / / [id number] [employer] Kem[employer] 10fr 5cm Biliary Stent [id number] - [id number] Implanted:Qty: 1 on 09/21/2023 by Kenneth Loya MD at [facility] Stent N/A: Bile Duct [employer] 07/03/2025 [id number] / / [id number] [employer] 10fr 5cm Biliary Double Pigtail Stent [id number] - [id number] Implanted:Qty: 1 on 09/21/2023 by Kenneth Loya MD at [facility] Stent N/A: Bile Duct [employer] 08/23/2025 [id number] / / [id number] [employer] 10fr 5cm Biliary Double Pigtail Stent [id number] - [id number] Implanted:Qty: 1 on 09/21/2023 by Kenneth Loya MD at [facility] Stent N/A: Bile Duct [employer] 08/23/2025 [id number] / / [id number] [employer] 10fr 5cm Biliary Double Pigtail Stent [id number] - [id number] Implanted:Qty: 1 on 09/21/2023 by Kenneth Loya MD at [facility] Stent N/A: Bile Duct [employer] 08/14/2025 [id number] / / [id number] [employer] 10fr 7cm Biliary Stent [id number] - [id number] Implanted:Qty: 1 on 04/10/2023 by John De Anda MD at [facility] [employer] [id number] 12/13/2024 [id number] / / [id number] [employer] 10fr 7cm Biliary Stent [id number] - [id number] Implanted:Qty: 1 on 04/10/2023 by John De Anda MD at [facility] [employer] [id number] 02/07/2025 [id number] / / [id number] Explanted Type Area Disk Sharpener Device Identifier Shelf Expiration Date Model / Serial / Lot [employer] [id number] Cotton-Young 10fr 7cm Taper Tip Guidewire Proximal Distal Flap - [id number] Implanted:Qty: 1 on 08/04/2021 by Kenneth Loya MD at [facility] Explanted:Qty: 1 on 08/30/2021 at [facility] Stent N/A: Bile Duct [employer] 01/28/2024 [id number] / / [id number] Axios 10 X 10 Stent Delivery System [id number] - [id number] Implanted:Qty: 1 on 08/04/2021 by Kenneth Loya MD at [facility] Explanted:Qty: 1 on 08/30/2021 at [facility] Stent N/A: Bile Duct [employer] 10/13/2022 [id number] / / [id number] [employer] Geenen 7fr 7cm Positioning Sleeve Push Catheter Guidewire [id number] - [id number] Implanted:Qty: 1 on 08/30/2021 at [facility] Explanted:Qty: 1 on 11/01/2021 by Kenneth Loya MD at [facility] Stent N/A: Pancreas [employer] 11/06/2023 [id number] / / [id number] [employer] 10fr 5cm Biliary Stent [id number] - [id number] Implanted:Qty: 1 on 01/26/2022 by Kenneth Loya MD at [facility] Explanted:Qty: 1 on 04/06/2022 by Kenneth Loya MD at [facility] Stent [employer] 11/16/2023 [id number] / / [id number] [employer] Advanix Naviflex 7fr 9cm Radiopaque [place] Endo Marker Color Coded [id number] - [id number] Implanted:Qty: 1 on 01/26/2022 by Kenneth Loya MD at [facility] Explanted:Qty: 1 on 04/06/2022 at [facility] Stent [employer] 04/16/2023 [id number] / / [id number] [employer] Advanix 8.5fr 7cm Rapid Exchange Temporary [place] Stent [id number] - [id number] Implanted:Qty: 1 on 04/06/2022 by Kenneth Loya MD at [facility] Explanted:Qty: 1 on 07/06/2022 by Kenneth Loya MD at [facility] Stent N/A: Pancreas [employer] 10/26/2023 [id number] / / [id number] [employer] Advanix 8.5fr 7cm Rapid Exchange Temporary [place]ent [id number] - [id number] Implanted:Qty: 1 on 04/06/2022 by Kenneth Loya MD at [facility] Explanted:Qty: 1 on 07/06/2022 by Kenneth Loya MD at [facility] Stent N/A: Pancreas [employer] 10/26/2023 [id number] / / [id number] [employer] 10fr 5cm Biliary Stent [id number] - [id number] Implanted:Qty: 1 on 09/08/2022 by Kenneth Loya MD at [facility] Explanted:Qty: 1 on 11/03/2022 by Kenneth Loya MD at [facility] Stent N/A: Bile Duct [employer] 08/07/2024 [id number] / / [id number] [employer] 10fr 5cm Biliary Stent [id number] - [id number] Implanted:Qty: 1 on 09/08/2022 by Kenneth Loya MD at [facility] Explanted:Qty: 1 on 11/03/2022 by Kenneth Loya MD at [facility] Stent N/A: Bile Duct [employer] 05/04/2024 [id number] / / [id number] [employer] [place] Flexi-Stent 7fr 7cm Small Pigtail Flexible .035in Stent 6574 - [id number] Implanted:Qty: 1 on 09/08/2022 by Kenneth Loya MD at [facility] Explanted:Qty: 1 on 11/03/2022 by Kenneth Loya MD at [facility] Stent N/A: Bile Duct [employer] 05/28/2027 [id number] / / [id number] [employer] Geenen 8.5fr 9cm Drain Obstructed Positioning Sleeve Pushing [id number] - [id number] Implanted:Qty: 1 on 04/06/2022 by Kenneth Loya MD at [facility] Explanted:Qty: 1 on 01/05/2023 by Kenneth Loya MD at [facility] Stent N/A: Pancreas [employer] 05/03/2024 [id number] / / [id number] [employer]wright Flexi-Stent 7fr 7cm Small Pigtail Flexible .035in Stent 6574 - [id number] Implanted:Qty: 1 on 11/03/2022 by Kenneth Loya MD at [facility] Explanted:Qty: 1 on 01/05/2023 by Kenneth Loya MD at [facility] Stent N/A: Pancreas [employer] 05/28/2027 [id number] / / [id number] [employer] 10fr 5cm Biliary Stent [id number] - [id number] Implanted:Qty: 1 on 11/03/2022 by Kenneth Loya MD at [facility] Explanted:Qty: 1 on 01/05/2023 at [facility] Stent N/A: Bile Duct [employer] 08/15/2024 [id number] / / [id number] [employer] Cotton-Young 10fr 5cm Taper Tip Soft Proximal Distal Flap Gentle [id number] - [id number] Implanted:Qty: 1 on 11/03/2022 by Kenneth Loya MD at [facility] Explanted:Qty: 1 on 01/05/2023 by Kenneth Loya MD at [facility] Stent N/A: Bile Duct [employer] 08/10/2025 [id number] / / [id number] [employer] [facility] Cartwright Flexi-Stent 4fr 7cm Small Pigtail Flexible .025in Stent 6544 - [id number] Implanted:Qty: 1 on 01/05/2023 by Kenneth Loya MD at [facility] Explanted:Qty: 1 on 06/02/2023 at [facility] Stent N/A: Pancreas [employer] 07/27/2027 [id number] / / [id number] Description:Not present on t his procedure [employer] 10fr 7cm Biliary Stent [id number] - [id number] Implanted:Qty: 1 on 01/05/2023 by Kenneth Loya MD at [facility] Explanted:Qty: 1 on 06/02/2023 by Jero Soto MD at [facility] Stent N/A: Bile Duct [employer] 12/13/2024 [id number] / / [id number] [employer] 10fr 7cm Biliary Stent [id number] - [id number] Implanted:Qty: 1 on 01/05/2023 by Kenneth Loya MD at [facility] Explanted:Qty: 1 on 06/02/2023 by Jero Soto MD at [facility] Stent N/A: Bile Duct [employer] 12/13/2024 [id number] / / [id number] [employer] 10fr 5cm Biliary Double Pigtail Stent [id number] - [id number] Implanted:Qty: 1 on 06/02/2023 by Kenneht Loya MD at [facility] Explanted:Qty: 1 on 09/21/2023 by Kenneth Loya MD at [facility] Stent N/A: Bile Duct [employer] 04/30/2025 [id number] / / [id number] [employer] 10fr 5cm Biliary Double Pigtail Stent [id number] - [id number] Implanted:Qty: 1 on 06/02/2023 by Kenneth Loya MD at [facility] Explanted:Qty: 1 on 09/21/2023 by Kenneth Loya MD at [facility] Stent N/A: Bile Duct [employer] 04/30/2025 [id number] / / [id number] [employer] 10fr 5cm Biliary Stent [id number] - [id number] Implanted:Qty: 1 on 06/02/2023 by Kenneth Loya MD at [facility] Explanted:Qty: 1 on 09/21/2023 by Kenneth Loya MD at [facility] Stent N/A: Bile Duct [employer] 02/28/2025 [id number] / / [id number] [employer] 10fr 5cm Biliary Double Pigtail Stent [id number] - [id number] Implanted:Qty: 1 on 06/02/2023 by Kenneth Loya MD at [facility] Explanted:Qty: 1 on 09/21/2023 by Kenneth Loya MD at [facility] Stent N/A: Bile Duct [employer] 04/30/2025 [id number] / / [id number] [employer] [id number] Advanix 10fr 5cm Rapid Exchange Temporary [place] Stent - [id number] Implanted:Qty: 1 on 06/18/2021 by Kenneth Loya MD at [facility] Explanted:Qty: 1 on 08/30/2021 at [facility] [employer] 06/30/2022 [id number] / / [id number] Description:Removed prior [employer] Advanix Od10 Fr L7 Cm 1; Temporary Duodenal [place] Stent Biliary Pl [id number] - [id number] Implanted:Qty: 1 on 08/30/2021 at [facility] Explanted:Qty: 1 on 11/01/2021 by Kenneth Loya MD at [facility] N/A: Bile Duct [employer] 06/25/2022 [id number] / / [id number] [employer] Advanix Naviflex 10fr 9cm Lead Joana Radiopaque Flexible [id number] - [id number] Implanted:Qty: 1 on 11/01/2021 by Kenneth Loya MD at [facility] Explanted:Qty: 1 on 01/05/2022 by Contreras Girard MD at [facility] N/A: Pancreas [employer] 07/18/2022 [id number] / / [id number] 10fr 5cm Biliary Stent [id number] - [id number] Implanted:Qty: 1 on 11/01/2021 by Kenneth Loya MD at [facility] Explanted:Qty: 1 on 01/05/2022 at [facility] N/A: Bile Duct [employer] 08/12/2023 [id number] / / [id number] 10fr 7cm Biliary Stent [id number] - [id number] Implanted:Qty: 1 on 11/01/2021 by Kenneth Loya MD at [facility] Explanted:Qty: 1 on 01/05/2022 by Contreras Girard MD at [facility] N/A: Bile Duct [employer] 08/23/2023 [id number] / / [id number] [employer] Cotton-Young 10fr 5cm Taper Tip Soft Proximal Distal Flap Gentle [id number] - [id number] Implanted:Qty: 1 on 01/05/2022 by Contreras Girard MD at [facility] Explanted:Qty: 1 on 01/26/2022 at [facility] N/A: Bile Duct [employer] 05/07/2022 [id number] / / [id number] [employer] Advanix 7fr 7cm Lead Joana Radiopaque Hobart Endo Marker Drainage [id number] - [id number] Implanted:Qty: 1 on 07/06/2022 by Kenneth Loya MD at [facility] Explanted:Qty: 1 on 09/08/2022 by Kenneth Loya MD at [facility] N/A: Pancreas [employer] 05/03/2023 [id number] / / [id number] [employer] 10fr 5cm Biliary Stent [id number] - [id number] Implanted:Qty: 1 on 07/06/2022 by Kenneth Loya MD at [facility] Explanted:Qty: 1 on 09/08/2022 by Kenneth Loya MD at [facility] N/A: Bile Duct [employer] 12/24/2022 [id number] / / [id number] [employer] 10fr 5cm Biliary Stent [id number] - [id number] Implanted:Qty: 1 on 07/06/2022 by Kenneth Loya MD at [facility] Explanted:Qty: 1 on 09/08/2022 by Kenneth Loya MD at [facility] N/A: Bile Duct [employer] 11/16/2023 [id number] / / [id number] [employer] 10fr 7cm Biliary Stent [id number] - [id number] Explanted:Qty: 1 on 04/10/2023 by John De Anda MD at [facility] [employer] [id number] 12/13/2024 [id number] / / [id number] Description:Unable to place despite multiple attempts Procedures Procedure Name Priority Date/Time Associated Diagnosis Comments EGFR STAT 07/23/2024 11:01 AM PLATE GRINDER DIFFERENTIAL AUTO STAT 07/23/2024 11: 01 AM PLATE GRINDER ETHANOL STAT 07/23/2024 11:01 AM PLATE GRINDER CBC WITH AUTO DIFFERENTIAL STAT 07/23/2024 11:01 AM PLATE GRINDER COMPREHENSIVE METABOLIC PANEL STAT 07/23/2024 11:01 AM PLATE GRINDER from Last 3 Months Results * eGFR (07/23/2024 11:01 AM PLATE GRINDER) eGFR >90 >=60 mL/min/1. 73 m2 Comment: [...] reviewed 2021. Blood 07/23/2024 11:0 1 AM PLATE GRINDER 07/23/2024 11:03 AM PLATE GRINDER us Jonny Parada MD LAB BLOOD ORDERABLES Final Res ult [facility] 1 [facility] Department [place] [address] * Differential, auto (07/23/2024 11:01 AM PLATE GRINDER) Neutrophil abs 1.7 1.5 - 6.5 K/cumm Imm gran abs 0.0 0.0 - 0.1 K/cumm [facility] ([place]) Lymphocyte abs 1.5 0.8 - [...] on 2017. Blood 07/23/2024 11:0 1 AM PLATE GRINDER 07/23/2024 11:03 AM PLATE GRINDER us Jonny Parada MD LAB BLOOD ORDERABLES Final Res ult [facility] ([place]) 1 [facility] Department [place] [address] * (ABNORMAL) CBC with auto differential (07/23/2024 11:01 AM PLATE GRINDER) WBC 3.9 3.8 - 9.9 K/cumm Hgb 13.7 13.0 - 17.5 g/dL [facility] ([place]) Hct 40.3 38.9 - 50.3 [...] RDW SD 54.8(H) 35.7 - 48.1 fL [facility] ([place]) NRBC abs 0.00 0.00 - 0.01 K/cumm [facility] ([place]) Blood 07/23/2024 11:0 1 AM PLATE GRINDER 07/23/2024 11:03 AM PLATE GRINDER Jonny Parada MD LAB BLOOD ORDERABLES Final Res ult [facility] ([place]) 1 [facility] [place] [address] * (ABNORMAL) Ethanol (07/23/2024 11:01 AM PLATE GRINDER) Ethanol 314(C) <=10 mg/dL Comment: Critical Result called by [email or web address] at 2024-07-23 11:26:12. Result Read Back by Marine Quan ED Interpretive Data Legal limit of intoxication > or = 80 mg/dL Levels > or = 400 mg/dL are potentially TOXIC. Current interpretive data was last revised on 2018. Blood 07/23/2024 11:0 1 AM PLATE GRINDER 07/23/2024 11:03 AM PLATE GRINDER Jonny Parada MD LAB BLOOD ORDERABLES Final Res ult [facility] ([place]) 1 [facility] [place] [address] * (ABNORMAL) Comprehensive metabolic panel (07/23/2024 11:01 AM PLATE GRINDER) Sodium 144 135 - 145 mmol/L Potassium, pl 3.5 3.3 - 4.9 mmol/L [facility] ([place]) Chloride 105 97 - 110 mmol/L [facility] ([place]) CO2 23 22 - 32 mmol/L [facility] ([place]) Anion gap 16(H) 2 - 15 mmol/L [facility] ([place]) BUN 5(L) 6 - 25 mg/dL [facility] ([place]) Creatinine 0.64(L) 0.80 - 1.30 mg/dL [facility] ([place]) Glucose 133 70 - 199 mg/dL [facility] ([place]) Comment: Interpretive Data Fasting glucose >/= [...] classification and Diagnosis of Diabetes Diabetes Care 2021; 46: S19-S40. Current interpretive data was last [...] [facility] Blood 07/23/2024 11:0 1 AM PLATE GRINDER 07/23/2024 11:03 AM PLATE GRINDER Jonny Parada MD LAB BLOOD ORDERABLES Final Res ult [facility] ([place]) 1 [facility] Department [place] [address] from Last 3 Months Insurance [employer] [facility] [facility] Address: [address] [address] [place] [address] [facility] MEDICARE [employer] [facility] Address: [address] [address] [place] [address] Advance Directives For more information, please contact: [phone] * Full Code (Latest Code Status on [...] 7:36 AM 06/02/2023 3:26 PM Care Teams Peel Oven Tender Relationship Specialty Start Date End Date Don Walton PA [address] [address] PCP - General Physician Jewelry Manager 12/28/21
--- OUTSIDE RECORDS SUMMARY | 2024-07-31 18:03 | XMS_ITS | Encounter Summary ---
Author Organization [facility] Address [address] [place] [address] Care Team Providers Care Calliope Player Name Role Phone Lamberto Barker MD Primary Care Provider Encounter Details Date Type Department Care Team (Late st Contact Info) Description 11/07/2022 [employer] Message Enc [facility] on [address] [address] [place], [facility] Provider Echocardiogram Social History Tobacco Use Types [...] often do you attend chur ch or worship services? 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 Answer Date of Assessment Author Status No 06/20/2021 1:29 AM EXTRUDING MACHINE OPERATOR Activ e * Do you have serious [...] documented as of this encounter Care Teams Calliope Player Relationship Specialty Start Date End Date Lamberto Barker MD [address] [place] [address] PCP - General INTERNAL MEDICINE 05/08/19 documented as of this encounter
--- OUTSIDE RECORDS SUMMARY | 2024-07-31 18:32 | XMS_ITS | Encounter Summary ---
Author Organization [facility] Address [address] [place] [address] Care Team Providers Care Quantometer Operator Name Role Phone Lamberto Barker MD Primary Care Provider [phone] Encounter Details Date Type Department Care Team (Late st Contact Info) Description 01/05/2021 Hospital Follow-up Call [facility] [place] [address] Heather Adames, RN Social History Tobacco Use [...] How often do you attend chur or mu-ism services? Never 12/25/2020 Do you belong to [...] move on to questions 3-9 2 12/25/2020 [facility] - Occupational Stress Questionnaire Answer [...] documented as of this encounter Care Teams Quantometer Operator Relationship Specialty Start Date End Date Lamberto Barker MD [address] [place] [address] PCP - General INTERNAL MEDICINE 05/08/19 documented as of this encounter
--- OUTSIDE RECORDS SUMMARY | 2024-07-31 18:32 | XMS_ITS | Encounter Summary ---
Author Organization [facility] Address [address] [place] [address] Care Team Providers Care Defense Analyst Name Role Phone Lamberto Barker MD Primary Care Provider [phone] Encounter Details Date Type Department Care Team (Late st Contact Info) Description 11/07/2022 [employer] Message Enc [facility] on [address] [address] [place], [facility] Provider Echocardiogram Social History Tobacco [...] any clubs o r organizations such as confucianist groups, unions, fraternal or athletic groups, or [...] move on to questions 3-9 2 12/25/2020 [facility] of Occupat ional [facility] - Occupational Stress Questionnaire Answer [...] place to sleep or slept in a alf (including now)? 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 Answer Date of Assessment Author Status No 06/20/2021 1:29 AM STUDENT UNION CONSULTANT Activ e * Do you have serious [...] documented as of this encounter Care Teams Defense Analyst Relationship Specialty Start Date End Date Lamberto Barker MD [address] [place] [address] PCP - General INTERNAL MEDICINE 05/08/19 documented as of this encounter
--- OUTSIDE RECORDS SUMMARY | 2024-07-31 18:32 | XMS_ITS | Clinical Summary ---
Author Organization [facility] Office Center Address [address] [place] [address] Care Team Providers Care Hims Coder Name Role Phone Don Walton Primary Care Provider Allergies Active Allergy Reactions Criticality Noted Date Comments Ciprofloxacin Hives Medium 06/02/2023 Patient stated he has previously tolerated PO. 06/02/23 had redness and hives after IV dose. Penicillins Rash Medium 05/08/2019 Kfvvetrxlmqw-Ivjeznludc-Ofq trs Angioedema High 09/17/[address] [...] daily 30 patch 01/12/20 22 Active multivit ujesuvfh-qyiq-EG-c alcium (THERA-M) 9 mg iron-400 mcg tabletIndications: [...] 06/10/2023 Assessment & Plan (06/12/2023 2:18 PM JOURNEYMAN OPERATOR ASSISTANT): Patient reports feeling constipated, gassy and bloated. [...] 06/08/2023 Assessment & Plan (06/09/2023 1:55 PM JOURNEYMAN OPERATOR ASSISTANT): Resolved. Acute pancreatitis, unspecif ied complication status, unspecified pancreatitis type 06/04/2023 Assessment & Plan (06/05/2023 12:45 PM JOURNEYMAN OPERATOR ASSISTANT): Longstanding bouts of pancreatitis originally from EtOH [...] 06/04/2023 Assessment & Plan (06/05/2023 12:48 PM JOURNEYMAN OPERATOR ASSISTANT): Likely from pancreatitis. Also tender to palpation initially so may be a musculoskeletal component from dry heaving. Trops negative. EKG no ischemic changes. He reports hx of IA in the past, unclear circumstances. He had an exercise stress test in spring at an outside facility that he says was normal. Cont ASA. Gram-negative bacteremia 04/11/2023 Assessment & Plan (04/13/2023 7:02 PM JOURNEYMAN OPERATOR ASSISTANT): - due to cholangitis - BCx + for E coli and K. Pneumoniae - repeat BCx drawn 04/11, ngtd - pansensitive organisms - d/c home today with flagyl/cipro Cholangitis 04/10/2023 Assessment & Plan (04/12/2023 6:21 PM JOURNEYMAN OPERATOR ASSISTANT): - Improving - 04/10 ERCP - removal of two migrates stents with biliary obstruction and replaced with 2 new stents in biliary stricture - PRN analgesics and antiemetics Assessment & Plan (04/10/2023 2:40 AM JOURNEYMAN OPERATOR ASSISTANT): -meets [place] criteria for acute cholangitis based [...] 01/04/2022 Assessment & Plan (06/13/2023 2:35 PM JOURNEYMAN OPERATOR ASSISTANT): Recently admitted from 06/04-06/05/23 after ERCP on [...] (01/05/2022): Added automatically from request for surgery [id number] Assessment & Plan (04/11/2023 3:57 PM JOURNEYMAN OPERATOR ASSISTANT): - improving -2/2 stent migration and resultant biliary obstruction Assessment & Plan (04/10/2023 2:27 AM JOURNEYMAN OPERATOR ASSISTANT): -2/2 stent migration and resultant biliary obstruction -mgmt as above -repeat HFP in AM 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 Overview (11/30/2021): Added automatically from request for surgery [id number] Encounter for replacement of biliary stent 11/30 Overview (11/30/2021): Added automatically from request for surgery [id number] 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 Pancreatic pseudocyst 07/26/2021 Severe sepsis 07/08/2021 Assessment & Plan (07/13/2021 9:43 AM JOURNEYMAN OPERATOR ASSISTANT): Pt elevated temp on 2 overnight 38.1 [...] infection Assessment & Plan (07/12/2021 9:40 AM JOURNEYMAN OPERATOR ASSISTANT): Pt elevated temp on 2 overnight 38.1 [...] infection Assessment & Plan (07/11/2021 10:55 AM JOURNEYMAN OPERATOR ASSISTANT): Pt elevated temp on 2 overnight 38.1 [...] bed Assessment & Plan (07/10/2021 9:10 AM JOURNEYMAN OPERATOR ASSISTANT): Pt elevated temp on 2 overnight 38.1 max, hypotensive with normal lactate but new JOSE, transferred to [facility], aggressive IVF, BC, empirical meropenem initiated. Fluid [...] daily Assessment & Plan (07/09/2021 2:23 PM JOURNEYMAN OPERATOR ASSISTANT): Pt elevated temp on 2 overnight 38.1 max, hypotensive with normal lactate but new JOSE, transferred to [facility], aggressive IVF, BC, empirical abx initiated. Fluid [...] daily Assessment & Plan (07/08/2021 1:53 PM JOURNEYMAN OPERATOR ASSISTANT): Pt elevated temp overnight 38.1 max, hypotensive [...] 07/07/2021 Assessment & Plan (07/13/2021 9:43 AM JOURNEYMAN OPERATOR ASSISTANT): Dobbhoff placed 2/10, tube feeding to initiated Osmolite 1.5 at 55mL/hr over 24h via NJ tube continuous via pump. Flush with 150mL water q4h. Now at goal of 55cc/hr. Can cycle at home as instructed. Will continue TF until follow up with GI as outpatient Assessment & Plan (07/12/2021 9:39 AM JOURNEYMAN OPERATOR ASSISTANT): Dobbhoff placed 2/10, tube feeding to initiated Osmolite 1.5 at 55mL/hr over 24h via NJ tube continuous via pump. Flush with 150mL water q4h. Now at goal of 55cc/hr. Can cycle at home as instructed. Will continue TF until follow up with GI as outpatient Assessment & Plan (07/11/2021 10:55 AM JOURNEYMAN OPERATOR ASSISTANT): Dobbhoff placed 2/10, tube feeding to initiated [...] Phos Assessment & Plan (07/10/2021 9:08 AM JOURNEYMAN OPERATOR ASSISTANT): Cherelle placed 07/08, tube feeding to initiated [...] Phos Assessment & Plan (07/09/2021 2:25 PM JOURNEYMAN OPERATOR ASSISTANT): Cherelle placed 07/08, tube feeding to initiated [...] prn Assessment & Plan (07/08/2021 1:11 PM JOURNEYMAN OPERATOR ASSISTANT): Cherelle placed 07/08, tube feeding to initiate TF recommendations: Goal: Osmolite 1.5 at 55mL/hr over 24h via [place] tube continuous via pump. Flush with 150mL water q4h. Initiate TF at 10mL/hr and increase by 10mL q4h until goal rate is reached Chronic pancreatitis, unspecified pancreatitis t ype 07/06/2021 Assessment & Plan (07/13/2021 9:42 AM JOURNEYMAN OPERATOR ASSISTANT): Ongoing acute episode of (developing) chronic pancreatitis. [...] home Assessment & Plan (07/12/2021 9:38 AM JOURNEYMAN OPERATOR ASSISTANT): Ongoing acute episode of (developing) chronic pancreatitis. [...] 07/13 Assessment & Plan (07/11/2021 10:53 AM JOURNEYMAN OPERATOR ASSISTANT): Ongoing acute episode of (developing) chronic pancreatitis. [...] discharge Assessment & Plan (07/10/2021 9:07 AM JOURNEYMAN OPERATOR ASSISTANT): Ongoing acute episode of developing chronic pancreatitis. [...] feedings Assessment & Plan (07/09/2021 2:30 PM JOURNEYMAN OPERATOR ASSISTANT): Ongoing acute episode of chronic pancreatitis. Just [...] CTM Assessment & Plan (07/08/2021 1:49 PM JOURNEYMAN OPERATOR ASSISTANT): Ongoing acute episode of chronic pancreatitis. Just [...] plan Assessment & Plan (07/07/2021 11:22 AM JOURNEYMAN OPERATOR ASSISTANT): Ongoing acute episode of chronic pancreatitis. Just [...] plan Assessment & Plan (07/06/2021 5:30 PM JOURNEYMAN OPERATOR ASSISTANT): Ongoing acute episode of chronic pancreatitis. Just [...] 07/06/2021 Assessment & Plan (07/13/2021 9:42 AM JOURNEYMAN OPERATOR ASSISTANT): Likely ATN related to hypotensive episode. Cr peaked at Cr at 2.31, now back to baseline after aggressive IVF and now tolerating TF. Assessment & Plan (07/12/2021 9:36 AM JOURNEYMAN OPERATOR ASSISTANT): Likely ATN related to hypotensive episode. Cr peaked at Cr at 2.31, now back to baseline after aggressive IVF and now tolerating TF. Assessment & Plan (07/11/2021 10:54 AM JOURNEYMAN OPERATOR ASSISTANT): Likely ATN related to hypotensive episode. Cr peaked at Cr at 2.31, now back to baseline after aggressive IVF, continue to monitor bmp, continue fluids Assessment & Plan (07/10/2021 9:08 AM JOURNEYMAN OPERATOR ASSISTANT): Likely ATN related to hypotensive episode. Cr peaked at Cr at 2.31, now back to baseline after aggressive IVF, continue to monitor bmp, continue fluids Assessment & Plan (07/09/2021 2:29 PM JOURNEYMAN OPERATOR ASSISTANT): Cr at baseline after aggressive IVF, continue to monitor bmp, continue fluids Assessment & Plan (07/08/2021 1:10 PM JOURNEYMAN OPERATOR ASSISTANT): Cr baseline 0.8 now up to 1.3 on arrival due to po intolerance Aggressive IVF will monitor urine output Today net fluid intake 191 Cr trended up to 2.31 continue aggressive fluids Daily bmp Continue IVF Assessment & Plan (07/07/2021 11:19 AM JOURNEYMAN OPERATOR ASSISTANT): Cr baseline 0.8 now up to 1.3 on arrival due to po intolerance Aggressive IVF will monitor urine output Today net fluid intake 191 Cr 1.05 improving with fluids Daily bmp Continue IVF Assessment & Plan (07/06/2021 5:39 PM JOURNEYMAN OPERATOR ASSISTANT): Cr baseline 0.8 now up to 1.3 on arrival due to po intolerance Aggressive IVF will monitor urine output Alcohol dependence 06/25/2021 Assessment & Plan (06/07/2023 5:01 AM JOURNEYMAN OPERATOR ASSISTANT): Last drink on [place] and he reports being motivated to remain [...] program Assessment & Plan (07/13/2021 9:42 AM JOURNEYMAN OPERATOR ASSISTANT): Has a long history of alcohol use [...] Group Assessment & Plan (07/12/2021 9:36 AM JOURNEYMAN OPERATOR ASSISTANT): Has a long history of alcohol use [...] Group Assessment & Plan (07/11/2021 10:54 AM JOURNEYMAN OPERATOR ASSISTANT): Has a long history of alcohol use [...] Group Assessment & Plan (07/10/2021 9:05 AM JOURNEYMAN OPERATOR ASSISTANT): Has a long history of alcohol use [...] Group Assessment & Plan (07/09/2021 2:33 PM JOURNEYMAN OPERATOR ASSISTANT): Has a long history of alcohol use [...] Group Assessment & Plan (07/08/2021 1:06 PM JOURNEYMAN OPERATOR ASSISTANT): Has a long history of alcohol use with dependence. He states he has not had a drink since before his ERCP 06/22/2021 and has been on Vivitrol injections. His ethanol level on arrival to the ED is negative Plan to continue EtOH cessation and support with outpatient naltrexone therapy. Assessment & Plan (07/07/2021 11:13 AM JOURNEYMAN OPERATOR ASSISTANT): Has a long history of alcohol use with dependence. He states he has not had a drink since before his ERCP 06/22/2021 and has been on Vivitrol injections. His ethanol level on arrival to the ED is negative Plan to continue EtOH cessation and support with outpatient naltrexone therapy. Assessment & Plan (07/06/2021 5:22 PM JOURNEYMAN OPERATOR ASSISTANT): Has a long history of alcohol use with dependence. He states he has not had a drink since before his ERCP 06/22/2021 and has been on Vivitrol injections. His ethanol level on arrival to the ED is negative Plan to continue EtOH cessation and support with outpatient naltrexone therapy Assessment & Plan (06/28/2021 11:39 AM JOURNEYMAN OPERATOR ASSISTANT): Long standing hx of alcohol dependence with [...] needed Assessment & Plan (06/27/2021 11:47 AM JOURNEYMAN OPERATOR ASSISTANT): Long standing hx of alcohol dependence with [...] needed Assessment & Plan (06/26/2021 11:59 AM JOURNEYMAN OPERATOR ASSISTANT): Long standing hx of alcohol dependence with [...] 06/25/2021 Assessment & Plan (06/07/2023 5:06 AM JOURNEYMAN OPERATOR ASSISTANT): Markedly hypertensive on ED arrival in the setting of pain -Continue home Amlodipine 10 mg qday and losartan 25 mg qday Assessment & Plan (06/05/2023 12:47 PM JOURNEYMAN OPERATOR ASSISTANT): Hypertensive initially from pain. Improved today. Cont home meds. Assessment & Plan (04/12/2023 6:21 PM JOURNEYMAN OPERATOR ASSISTANT): -continue norvasc Assessment & Plan (04/10/2023 2:31 AM JOURNEYMAN OPERATOR ASSISTANT): -resume norvasc in AM Assessment & Plan (01/11/2022 11:23 AM CDT): Continue norvasc Assessment & Plan (01/10/2022 11:40 AM CDT): Continue norvasc Assessment & Plan (07/13/2021 9:43 AM JOURNEYMAN OPERATOR ASSISTANT): Continue to hold home lisinopril on account of recent hypotension/JOSE. With low normotensive BP will discontinue lisinopril. Follow up with PCP in 2-4 weeks to re evaluate restarting if needed Assessment & Plan (07/12/2021 9:38 AM JOURNEYMAN OPERATOR ASSISTANT): Continue to hold home lisinopril on account of recent hypotension/JOSE. BP normal, may not require lisinopril on discharge. Assessment & Plan (07/11/2021 10:54 AM JOURNEYMAN OPERATOR ASSISTANT): Continue to hold home lisinopril on account of recent hypotension/JOSE. BP normal, may not require lisinopril on discharge. Assessment & Plan (07/10/2021 9:06 AM JOURNEYMAN OPERATOR ASSISTANT): Continue to hold home lisinopril on account of recent hypotension Assessment & Plan (07/09/2021 2:32 PM JOURNEYMAN OPERATOR ASSISTANT): Continue to hold home lisinopril until more stable BP Assessment & Plan (07/08/2021 1:06 PM JOURNEYMAN OPERATOR ASSISTANT): BP hypotensive overnight hold antihypertensives at this time. Assessment & Plan (07/07/2021 11:15 AM JOURNEYMAN OPERATOR ASSISTANT): BP on remain normotensive Continue lisinopril and pain control Assessment & Plan (07/06/2021 5:30 PM JOURNEYMAN OPERATOR ASSISTANT): BP on arrival normotensive Continue lisinopril and pain control Assessment & Plan (06/28/2021 11:39 AM JOURNEYMAN OPERATOR ASSISTANT): Continue home lisinopril 40 mg -Monitor BP -BP stable Assessment & Plan (06/27/2021 11:48 AM JOURNEYMAN OPERATOR ASSISTANT): Continue home lisinopril 40 mg -Monitor BP/Cr -BP stable Assessment & Plan (06/25/2021 4:55 PM JOURNEYMAN OPERATOR ASSISTANT): Continue home lisinopril 40 mg -Monitor BP/Cr -Daily BMP Tobacco abuse 06/25/2021 Major depressive disorder 06/25/2021 Assessment & Plan (06/07/2023 5:07 AM JOURNEYMAN OPERATOR ASSISTANT): Continue home duloxetine 30 mg BID and trazodone 50 mg qhs Assessment & Plan (06/04/2023 11:58 AM JOURNEYMAN OPERATOR ASSISTANT): Cont home meds Assessment & Plan (01/11/2022 11:23 AM CDT): Continue duloxetine scheduled and trazodone prn Assessment & Plan (01/10/2022 11:40 AM CDT): Continue duloxetine scheduled and trazodone prn Assessment & Plan (07/13/2021 9:43 AM JOURNEYMAN OPERATOR ASSISTANT): Most certainly contributing to his long standing alcohol use. Continue home meds duloxetine and trazodone Assessment & Plan (07/12/2021 9:38 AM JOURNEYMAN OPERATOR ASSISTANT): Most certainly contributing to his long standing alcohol use. Continue home meds duloxetine and trazodone Assessment & Plan (07/11/2021 10:54 AM JOURNEYMAN OPERATOR ASSISTANT): Most certainly contributing to his long standing alcohol use. Continue home meds duloxetine and trazodone Assessment & Plan (07/10/2021 9:06 AM JOURNEYMAN OPERATOR ASSISTANT): Most certainly contributing to his long standing alcohol use. Continue home meds duloxetine and trazodone Assessment & Plan (07/09/2021 2:30 PM JOURNEYMAN OPERATOR ASSISTANT): Most certainly contributing to his long standing alcohol use now with cessation Continue home meds duloxetine and trazodone Assessment & Plan (07/08/2021 1:09 PM JOURNEYMAN OPERATOR ASSISTANT): Most certainly contributing to his long standing alcohol use now with cessation Continue home meds duloxetine and trazodone Assessment & Plan (07/07/2021 11:16 AM JOURNEYMAN OPERATOR ASSISTANT): Most certainly contributing to his long standing alcohol use now with cessation Continue home meds duloxetine and trazodone Assessment & Plan (07/06/2021 5:32 PM JOURNEYMAN OPERATOR ASSISTANT): Most certainly contributing to his long standing alcohol use now with cessation Continue home meds duloxetine and trazodone Assessment & Plan (06/28/2021 11:39 AM JOURNEYMAN OPERATOR ASSISTANT): Continue home Trazodone 50 mg, Cymbalta 30 mg Resume Biofeedback at discharge Assessment & Plan (06/27/2021 11:48 AM JOURNEYMAN OPERATOR ASSISTANT): Continue home Trazodone 50 mg, Cymbalta 30 mg Resume Biofeedback at discharge Assessment & Plan (06/25/2021 4:57 PM JOURNEYMAN OPERATOR ASSISTANT): Continue home Trazodone 50 mg, Cymbalta 30 mg Resume Biofeedback at discharge Pancreatic duct obstruction 06/11/2021 Overview (06/11/2021): Added automatically from request for surgery [id number] Abdominal pain 06/11/2021 Overview (06/11/2021): Added automatically from request for surgery [id number] Necrotizing pancreatitis 10/21/2019 Therapeutic opioid induced constipation 10/21/19 20 Assessment & Plan (07/13/2021 9:44 AM JOURNEYMAN OPERATOR ASSISTANT): Continue bowel regimen Assessment & Plan (07/12/2021 9:41 AM JOURNEYMAN OPERATOR ASSISTANT): Bowel regimen ordered without BM. Will titrate bowel regimen Assessment & Plan (07/11/2021 10:58 AM JOURNEYMAN OPERATOR ASSISTANT): Bowel regimen ordered Assessment & Plan (06/28/2021 11:39 AM JOURNEYMAN OPERATOR ASSISTANT): Pt states no BM for the past week. Likely due to decrease intake and vomiting, possible contribution from opioids -daily bowel regimen, had BM Monday Assessment & Plan (06/27/2021 11:48 AM JOURNEYMAN OPERATOR ASSISTANT): Pt states no BM for the past week. Likely due to decrease intake and vomiting, possible contribution from opioids -daily bowel regimen Assessment & Plan (06/26/2021 12:00 PM JOURNEYMAN OPERATOR ASSISTANT): Pt states no BM for the past week. Likely due to decrease intake and vomiting, possibly contribution from opioids -daily bowel regimen -clear liquid diet Acute pancreatitis 05/08/2019 Assessment & Plan (06/28/2021 11:38 AM JOURNEYMAN OPERATOR ASSISTANT): Hx of chronic pancreatis starting 3 years [...] prioritized. Assessment & Plan (06/27/2021 11:46 AM JOURNEYMAN OPERATOR ASSISTANT): Hx of chronic pancreatis starting 3 years [...] prioritized. Assessment & Plan (06/26/2021 11:59 AM JOURNEYMAN OPERATOR ASSISTANT): Hx of chronic pancreatis starting 3 years ago, worsening over the past one year 2/2 etoh abuse/dependency. Pt is followed by GI Dr. Lyoa. EUS 06/18 with enlarged lymph node in [...] 04/11/2023 Assessment & Plan (04/10/2023 2:38 AM JOURNEYMAN OPERATOR ASSISTANT): -migrated stent likely etiology of presenting symptoms and lab, CT findings -will likely need ERCP for stent exchange on Monday Metabolic acidosis, increased anion gap (IAG) 06/25/1907/09/2021 Assessment & Plan (07/09/2021 2:31 PM JOURNEYMAN OPERATOR ASSISTANT): Dobbhoff placed 07/08, to start tube feeding TF recommendations: Goal: Osmolite 1.5 at 55mL/hr over 24h via [place] tube continuous via pump. Flush with 150mL water q4h. Initiate TF at 10mL/hr and increase by 10mL q4h until goal rate is reached Assessment & Plan (07/08/2021 1:49 PM JOURNEYMAN OPERATOR ASSISTANT): Due to starvation in the setting of [...] reached Assessment & Plan (07/07/2021 11:16 AM JOURNEYMAN OPERATOR ASSISTANT): Due to starvation in the setting of intolerance to PO for the last 3-4 days. Will provide aggressive IVF Continue to discuss enteral feedings with the patient going forward, currently pt is refusing, GI will readdress with pt today with goal for placement today should pt agree. Change IVF to D5LR Assessment & Plan (07/06/2021 5:38 PM JOURNEYMAN OPERATOR ASSISTANT): Due to starvation in the setting of intolerance to PO for the last 3-4 days. Will provide aggressive IVF Continue to discuss enteral feedings with the patient going forward Assessment & Plan (06/28/2021 11:39 AM JOURNEYMAN OPERATOR ASSISTANT): Likely dehydration from pancreatitis, n/v and poor intake. Heme concentrated hgb 14.9 (baseline 8-9), wbc 14.4 no source of infection likely heme concentrated, anion gap 20, UA ketone +1. Resolved with IVF Assessment & Plan (06/27/2021 11:47 AM JOURNEYMAN OPERATOR ASSISTANT): Likely dehydration from pancreatitis, n/v and poor intake. Heme concentrated hgb 14.9 (baseline 8-9), wbc 14.4 no source of infection likely heme concentrated, anion gap 20, UA ketone +1. Resolved with IVF Assessment & Plan (06/26/2021 12:00 PM JOURNEYMAN OPERATOR ASSISTANT): Likely dehydration from pancreatitis, n/v and poor intake. Heme concentrated hgb 14.9 (baseline 8-9), wbc 14.4 no source of infection likely heme concentrated, anion gap 20, UA ketone +1 -IVF -Clear liquid diet -Daily bmp Encounters Date Type Department Care Team Description 07/23/2024 10:42 AM JOURNEYMAN OPERATOR ASSISTANT - 07/23/2024 3:32 PM JOURNEYMAN OPERATOR ASSISTANT Emergency [facility] Emergency Department [address] [place] [address] Discharge Disposition: Left without being seen from [...] drink = 0.6 oz pur e alcohol) [facility] [employer] Answer Date Recorded In the past 12 [...] often do you attend chur ch or sikh services? 1 to 4 times per year [...] slept in a alf (including now)? No 09/21/2023 Personal Safety Answer Date Recorded Have you ever been in or are you currently in a harmful physical or emotional relationship or is someone making you feel afraid or unsafe? Denies 07/23/2024 Sex and Gender Information Value Date Recorded Sex Assigned at Not on file Legal Sex Male 1:58 AM JOURNEYMAN OPERATOR ASSISTANT Gender Identity Not on file Sexual Orientation Not on file Occupation Industry Job Start Date Job End Date disability Not on file Not on file Not on file Obstetrics History Last Filed Vital Signs Vital Sign Reading Time Taken Comments Blood Pressure 125/77 07/23/2024 10:51 AM JOURNEYMAN OPERATOR ASSISTANT Pulse 100 07/23/2024 10:51 AM JOURNEYMAN OPERATOR ASSISTANT Temperature 36.4 C (97.6 F) 07/23/2024 10:51 AM JOURNEYMAN OPERATOR ASSISTANT Respiratory Rate 16 07/23/2024 10:51 AM JOURNEYMAN OPERATOR ASSISTANT Oxygen Saturation 99% 07/23/2024 10:51 AM JOURNEYMAN OPERATOR ASSISTANT Inhaled Oxygen Concentration - - Weight 86.2 kg (190 lb) 07/23/2024 10:51 AM JOURNEYMAN OPERATOR ASSISTANT Height 182.9 cm (6') 07/23/2024 10:51 AM JOURNEYMAN OPERATOR ASSISTANT Body Mass Index 25.77 07/23/2024 10:51 AM JOURNEYMAN OPERATOR ASSISTANT Plan of Treatment Health Maintenance Due Date [...] 03/03/2019, 02/05/2018 Medical Devices Implanted Type Area Forensic Anthropologist Device Identifier Shelf Expiration Date Model / Serial / Lot [employer] 8.5 Fr Nasal Biliary Catheter [id number] - [id number] Implanted:Qty: 1 on 01/26/2022 by Kenneth Loya MD at [facility] Catheter [employer] 06/22/2024 [id number] / / [id number] [employer] 10fr 5cm Biliary Double Pigtail Stent [id number] - [id number] Implanted:Qty: 1 on 09/21/2023 by Kenneth Loya MD at [facility] Stent N/A: Bile Duct [employer] 08/14/2025 [id number] / / [id number] [employer] 10fr 5cm Biliary Stent [id number] - [id number] Implanted:Qty: 1 on 09/21/2023 by Kenneth Loya MD at [facility] Stent N/A: Bile Duct [employer] 07/03/2025 [id number] / / [id number] [employer] 10fr 5cm Biliary Double Pigtail Stent [id number] - [id number] Implanted:Qty: 1 on 09/21/2023 by Kenneth Loya MD at [facility] Stent N/A: Bile Duct [employer] 08/23/2025 [id number] / / [id number] [employer] 10fr 5cm Biliary Double Pigtail Stent [id number] - [id number] Implanted:Qty: 1 on 09/21/2023 by Kenneth Loya MD at [facility] Stent N/A: Bile Duct [employer] 08/23/2025 [id number] / / [id number] [employer] 10fr 5cm Biliary Double Pigtail Stent [id number] - [id number] Implanted:Qty: 1 on 09/21/2023 by Kenneth Loya MD at [facility] Stent N/A: Bile Duct [employer] 08/14/2025 [id number] / / [id number] [employer] 10fr 7cm Biliary Stent [id number] - [id number] Implanted:Qty: 1 on 04/10/2023 by John De Anda MD at [facility] [employer] [id number] 12/13/2024 [id number] / / [id number] [employer] 10fr 7cm Biliary Stent [id number] - [id number] Implanted:Qty: 1 on 04/10/2023 by John De Anda MD at [facility] [employer] [id number] 02/07/2025 [id number] / / [id number] Explanted Type Area Forensic Anthropologist Device Identifier Shelf Expiration Date Model / Serial / Lot [employer] [id number] Cotton-Young 10fr 7cm Taper Tip Guidewire Proximal Distal Flap - [id number] Implanted:Qty: 1 on 08/04/2021 by Kenneth Loya MD at [facility] Explanted:Qty: 1 on 08/30/2021 at [facility] Stent N/A: Bile Duct [employer] 01/28/2024 [id number] / / [id number] [employer] 10 X 10 Stent Delivery System [id number] - [id number] Implanted:Qty: 1 on 08/04/2021 by Kenneth Loya MD at [facility] Explanted:Qty: 1 on 08/30/2021 at [facility] Stent N/A: Bile Duct [employer] 10/13/2022 [id number] / / [id number] [employer] Geenen 7fr 7cm Positioning Sleeve Push Catheter Guidewire [id number] - [id number] Implanted:Qty: 1 on 08/30/2021 at [facility] Explanted:Qty: 1 on 11/01/2021 by Kenneth Loya MD at [facility] Stent N/A: Pancreas [employer] 11/06/2023 [id number] / / [id number] [employer] 10fr 5cm Biliary Stent [id number] - [id number] Implanted:Qty: 1 on 01/26/2022 by Kenneth Loya MD at [facility] Explanted:Qty: 1 on 04/06/2022 by Kenneth Loya MD at [facility] Stent [employer] 11/16/2023 [id number] / / [id number] [employer] Advanix Naviflex 7fr 9cm Radiopaque Dike Endo Marker Color Coded [id number] - [id number] Implanted:Qty: 1 on 01/26/2022 by Kenneth Loya MD at [facility] Explanted:Qty: 1 on 04/06/2022 at [facility] Stent [employer] 04/16/2023 [id number] / / [id number] [employer] Advanix 8.5fr 7cm Rapid Exchange Temporary [place] Stent [id number] - [id number] Implanted:Qty: 1 on 04/06/2022 by Kenneth Loya MD at [facility] Explanted:Qty: 1 on 07/06/2022 by Kenneth Loya MD at [facility] Stent N/A: Pancreas [employer] 10/26/2023 [id number] / / [id number] [employer] Advanix 8.5fr 7cm Rapid Exchange Temporary [place] Stent [id number] - [id number] Implanted:Qty: 1 on 04/06/2022 by Kenneth Loya MD at [facility] Explanted:Qty: 1 on 07/06/2022 by Kenneth Loya MD at [facility] Stent N/A: Pancreas [employer] 10/26/2023 [id number] / / [id number] [employer] 10fr 5cm Biliary Stent [id number] - [id number] Implanted:Qty: 1 on 09/08/2022 by Kenneth Loya MD at [facility] Explanted:Qty: 1 on 11/03/2022 by Kenneth Loya MD at [facility] Stent N/A: Bile Duct [employer] 08/07/2024 [id number] / / [id number] [employer] 10fr 5cm Biliary Stent [id number] - [id number] Implanted:Qty: 1 on 09/08/2022 by Kenneth Loya MD at [facility] Explanted:Qty: 1 on 11/03/2022 by Kenneth Loya MD at [facility] Stent N/A: Bile Duct [employer] 05/04/2024 [id number] / / [id number] [employer] Cartwright Flexi-Stent 7fr 7cm Small Pigtail Flexible .035in Stent 6574 - [id number] Implanted:Qty: 1 on 09/08/2022 by Kenneth Loya MD at [facility] Explanted:Qty: 1 on 11/03/2022 by Kenneth Loya MD at [facility] Stent N/A: Bile Duct [employer] 05/28/2027 [id number] / / [id number] [employer] Geenen 8.5fr 9cm Drain Obstructed Positioning Sleeve Pushing [id number] - [id number] Implanted:Qty: 1 on 04/06/2022 by Kenneth Loya MD at [facility] Explanted:Qty: 1 on 01/05/2023 by Kenneth Loya MD at [facility] Stent N/A: Pancreas [employer] 05/03/2024 [id number] / / [id number] [employer] Cartwright Flexi-Stent 7fr 7cm Small Pigtail Flexible .035in Stent 6574 - [id number] Implanted:Qty: 1 on 11/03/2022 by Kenneth Loya MD at [facility] Explanted:Qty: 1 on 01/05/2023 by Kenneth Loya MD at [facility] Stent N/A: Pancreas [employer] 05/28/2027 6574 / / [id number] [employer] 10fr 5cm Biliary Stent [id number] - [id number] Implanted:Qty: 1 on 11/03/2022 by Kenneth Loya MD at [facility] Explanted:Qty: 1 on 01/05/2023 at [facility] Stent N/A: Bile Duct [employer] 08/15/2024 [id number] / / [id number] [employer] Cotton-Young 10fr 5cm Taper Tip Soft Proximal Distal Flap Gentle [id number] - [id number] Implanted:Qty: 1 on 11/03/2022 by Kenneth Loya MD at [facility] Explanted:Qty: 1 on 01/05/2023 by Kenneth Loya MD at [facility] Stent N/A: Bile Duct [employer] 08/10/2025 [id number] / / [id number] [employer] Cartwright Flexi-Stent 4fr 7cm Small Pigtail Flexible .025in Stent 6544 - [id number] Implanted:Qty: 1 on 01/05/2023 by Kenneth Loya MD at [facility] Explanted:Qty: 1 on 06/02/2023 at [facility] Stent N/A: Pancreas [employer] 07/27/2027 [id number] / / [id number] Description:Not present on t his procedure [employer] 10fr 7cm Biliary Stent [id number] - [id number] Implanted:Qty: 1 on 01/05/2023 by Kenneth Loya MD at [facility] Explanted:Qty: 1 on 06/02/2023 by Jero Soto MD at [facility] Stent N/A: Bile Duct [employer] 12/13/2024 [id number] / / [id number] [employer] 10fr 7cm Biliary Stent [id number] - [id number] Implanted:Qty: 1 on 01/05/2023 by Kenneth Loya MD at [facility] Explanted:Qty: 1 on 06/02/2023 by Jero Soto MD at [facility] Stent N/A: Bile Duct [employer] 12/13/2024 [id number] / / [id number] [employer] 10fr 5cm Biliary Double Pigtail Stent [id number] - [id number] Implanted:Qty: 1 on 06/02/2023 by Kenneth Loya MD at [facility] Explanted:Qty: 1 on 09/21/2023 by Kenneth Loya MD at [facility] Stent N/A: Bile Duct [employer] 04/30/2025 [id number] / / [id number] [employer] 10fr 5cm Biliary Double Pigtail Stent [id number] - [id number] Implanted:Qty: 1 on 06/02/2023 by Kenneth Loya MD at [facility] Explanted:Qty: 1 on 09/21/2023 by Kenneth Loya MD at [facility] Stent N/A: Bile Duct [employer] 04/30/2025 [id number] / / [id number] [employer] 10fr 5cm Biliary Stent [id number] - [id number] Implanted:Qty: 1 on 06/02/2023 by Kenneth Loya MD at [facility] Explanted:Qty: 1 on 09/21/2023 by Kenneth Loya MD at [facility] Stent N/A: Bile Duct [employer] 02/28/2025 [id number] / / [id number] [employer] 10fr 5cm Biliary Double Pigtail Stent [id number] - [id number] Implanted:Qty: 1 on 06/02/2023 by Kenneth Loya MD at [facility] Explanted:Qty: 1 on 09/21/2023 by Kenneth Loya MD at [facility] Stent N/A: Bile Duct [employer] 04/30/2025 [id number] / / [id number] [employer] [id number] Advanix 10fr 5cm Rapid Exchange Temporary [place] Stent - [id number] Implanted:Qty: 1 on 06/18/2021 by Kenneth Loya MD at [facility] Explanted:Qty: 1 on 08/30/2021 at [facility] [employer] 06/30/2022 [id number] / / [id number] Description:Removed prior [employer] Advanix Od10 Fr L7 Cm 1; Temporary Duodenal Bend Stent Biliary Pl [id number] - [id number] Implanted:Qty: 1 on 08/30/2021 at [facility] Explanted:Qty: 1 on 11/01/2021 by Kenneth Loya MD at [facility] N/A: Bile Duct [employer] 06/25/2022 [id number] / / [id number] [employer] Advanix Naviflex 10fr 9cm Lead Joana Radiopaque Flexible [id number] - [id number] Implanted:Qty: 1 on 11/01/2021 by Kenneth Loya MD at [facility] Explanted:Qty: 1 on 01/05/2022 by Contreras Girard MD at [facility] N/A: Pancreas [employer] 07/18/2022 [id number] / / [id number] 10fr 5cm Biliary Stent [id number] - [id number] Implanted:Qty: 1 on 11/01/2021 by Kenneth Loya MD at [facility] Explanted:Qty: 1 on 01/05/2022 at [facility] N/A: Bile Duct [employer] 08/12/2023 [id number] / / [id number] 10fr 7cm Biliary Stent [id number] - [id number] Implanted:Qty: 1 on 11/01/2021 by Kenneth Loya MD at [facility] Explanted:Qty: 1 on 01/05/2022 by Contreras Girard MD at [facility] N/A: Bile Duct [employer] 08/23/2023 [id number] / / [id number] [employer] Cotton-Young 10fr 5cm Taper Tip Soft Proximal Distal Flap Gentle [id number] - [id number] Implanted:Qty: 1 on 01/05/2022 by Contreras Girard MD at [facility] Explanted:Qty: 1 on 01/26/2022 at [facility] N/A: Bile Duct [employer] 05/07/2022 [id number] / / [id number] [employer] Advanix 7fr 7cm Lead Joana Radiopaque Dike Endo Marker Drainage [id number] - [id number] Implanted:Qty: 1 on 07/06/2022 by Kenneth Loya MD at [facility] Explanted:Qty: 1 on 09/08/2022 by Kenneth Loya MD at [facility] N/A: Pancreas [employer] 05/03/2023 [id number] / / [id number] [employer] 10fr 5cm Biliary Stent [id number] - [id number] Implanted:Qty: 1 on 07/06/2022 by Kenneth Loya MD at [facility] Explanted:Qty: 1 on 09/08/2022 by Kenneth Loya MD at [facility] N/A: Bile Duct [employer] 12/24/2022 [id number] / / [id number] [employer] 10fr 5cm Biliary Stent [id number] - [id number] Implanted:Qty: 1 on 07/06/2022 by Kenneth Loya MD at [facility] Explanted:Qty: 1 on 09/08/2022 by Kenneth oLya MD at [facility] N/A: Bile Duct [employer] 11/16/2023 [id number] / / [id number] [employer] 10fr 7cm Biliary Stent [id number] - [id number] Explanted:Qty: 1 on 04/10/2023 by John De Anda MD at [facility] [employer] [id number] 12/13/2024 [id number] / / [id number] Description:Unable to place despite multiple attempts Procedures Procedure Name Priority Date/Time Associated Diagnosis Comments EGFR STAT 07/23/2024 11:01 AM JOURNEYMAN OPERATOR ASSISTANT DIFFERENTIAL AUTO STAT 07/23/2024 11: 01 AM JOURNEYMAN OPERATOR ASSISTANT ETHANOL STAT 07/23/2024 11:01 AM JOURNEYMAN OPERATOR ASSISTANT CBC WITH AUTO DIFFERENTIAL STAT 07/23/2024 11:01 AM JOURNEYMAN OPERATOR ASSISTANT COMPREHENSIVE METABOLIC PANEL STAT 07/23/2024 11:01 AM JOURNEYMAN OPERATOR ASSISTANT from Last 3 Months Results * eGFR (07/23/2024 11:01 AM JOURNEYMAN OPERATOR ASSISTANT) eGFR >90 >=60 mL/min/1. 73 m2 Comment: [...] reviewed 2021. Blood 07/23/2024 11:0 1 AM JOURNEYMAN OPERATOR ASSISTANT 07/23/2024 11:03 AM JOURNEYMAN OPERATOR ASSISTANT Jonny Parada MD LAB BLOOD ORDERABLES Final Res ult [facility] [address] [facility] Department [place] [address] * Differential, auto (07/23/2024 11:01 AM JOURNEYMAN OPERATOR ASSISTANT) Neutrophil abs 1.7 1.5 - 6.5 K/cumm [...] on 2017. Blood 07/23/2024 11:0 1 AM JOURNEYMAN OPERATOR ASSISTANT 07/23/2024 11:03 AM JOURNEYMAN OPERATOR ASSISTANT us Jonny Parada MD LAB BLOOD ORDERABLES Final Res ult [facility] ([place] [address] [facility] Department [place] [address] * (ABNORMAL) CBC with auto differential (07/23/2024 11:01 AM JOURNEYMAN OPERATOR ASSISTANT) Pathologist [facility] WBC 3.9 3.8 - 9.9 K/cumm Hgb 13.7 13.0 - 17.5 g/dL [facility] Hct 40.3 38.9 - 50.3 [...] RDW SD 54.8(H) 35.7 - 48.1 fL [facility] NRBC abs 0.00 0.00 - 0.01 K/cumm [facility] Blood 07/23/2024 11:0 1 AM JOURNEYMAN OPERATOR ASSISTANT 07/23/2024 11:03 AM JOURNEYMAN OPERATOR ASSISTANT us Jonny Parada MD LAB BLOOD ORDERABLES Final Res ult [facility] ([place]) [address] [facility] Department [place] [address] * (ABNORMAL) Ethanol (07/23/2024 11:01 AM JOURNEYMAN OPERATOR ASSISTANT) Pathologist [facility] Ethanol 314(C) <=10 mg/dL Comment: Critical Result called by [email or web address] at 2024-07-23 11:26:12. Result Read Back by Marine Quan ED Interpretive Data Legal limit of intoxication > or = 80 mg/dL Levels > or = 400 mg/dL are potentially TOXIC. Current interpretive data was last revised on 2018. Blood 07/23/2024 11:0 1 AM JOURNEYMAN OPERATOR ASSISTANT 07/23/2024 11:03 AM JOURNEYMAN OPERATOR ASSISTANT us Jonny Parada MD LAB BLOOD ORDERABLES Final Res ult [facility] ([place] [address] [facility] Department [place] [address] * (ABNORMAL) Comprehensive metabolic panel (07/23/2024 11:01 AM JOURNEYMAN OPERATOR ASSISTANT) Sodium 144 135 - 145 mmol/L Potassium, [...] [facility]) Blood 07/23/2024 11:0 1 AM JOURNEYMAN OPERATOR ASSISTANT 07/23/2024 11:03 AM JOURNEYMAN OPERATOR ASSISTANT Jonny Parada MD LAB BLOOD ORDERABLES Final Res ult [facility] ([place] [address] [facility] [place] [address] from Last 3 Months Insurance [place] [address] [employer] Business Plan [employer] Advance Directives For more information, please contact: [phone] * Full Code (Latest Code Status on [...] 7:36 AM 06/02/2023 3:26 PM Care Teams Hims Coder Relationship Specialty Start Date End Date Don Walton PA [address] [address] PCP - General Physician Guest Relations Officer 12/28/21
--- OUTSIDE RECORDS SUMMARY | 2024-07-31 18:32 | XMS_ITS | Encounter Summary ---
Author Organization [facility] Address [address] [place] [address] Care Team Providers Care Junior High Math Teacher Name Role Phone Lamberto Barker MD Primary Care Provider [phone] Encounter Details Date Type Department Care Team (Late st Contact Info) Description 10/21/2022 [place] Message [facility], [address] [address] [facility], [facility] Provider Stress test Social History Tobacco [...] often do you attend chur ch or episcopalian services? Never 12/25/2020 Do you belong to any clubs o r organizations such as spiritism groups, unions, fraternal or athletic groups, or [...] move on to questions 3-9 2 12/25/2020 [facility] [...] Assessment Author Status No 06/20/2021 1:29 AM EDITOR HOUSE ORGAN Activ e * RETIRED Are you blind or do you have serious difficulty seeing, even when wearing glasses? Answer Date of Assessment Author Status No 06/20/2021 1:29 AM EDITOR HOUSE ORGAN Activ e * Do you have serious [...] documented as of this encounter Care Teams Junior High Math Teacher Relationship Specialty Start Date End Date Lamberto Barker MD [address] [place] [address] PCP - General INTERNAL MEDICINE 05/08/19 documented as of this encounter
--- OUTSIDE RECORDS SUMMARY | 2024-07-31 18:32 | XMS_ITS | Continuity of Care Document ---
Author Organization [employer] [place] Address [address] [place] [address] [address] [place] [address] Phone Care Team Providers Care Stores Assistant Name Role Phone Glenn Maciel Unavailable Unavailable Procedures Procedure Date Therapeutic Activities Manual Therapy Neuromuscular Re-Ed Therapeutic Exercise Therapeutic Activities Neuromuscular Re-Ed Manual Therapy Neuromuscular Re-Ed Manual Therapy Therapeutic Activities Therapeutic Activities Therapeutic Exercise Neuromuscular Re-Ed Manual Therapy Therapeutic Activities Neuromuscular Re-Ed Therapeutic Exercise Manual Therapy Therapeutic Activities Neuromuscular Re-Ed Therapeutic Activities Neuromuscular Re-Ed Therapeutic Exercise Manual Therapy Neuromuscular Re-Ed Therapeutic Exercise Therapeutic Activities Manual Therapy Therapeutic Activities Neuromuscular Re-Ed Therapeutic Exercise Manual Therapy Neuromuscular Re-Ed Therapeutic Activities Therapeutic Exercise Therapeutic [...] Activities Manual Therapy Therapeutic Exercise Neuromuscular Re-Ed Progress Note Therapeutic Activities Neuromuscular [...] Re-Ed Therapeutic Activities Neuromuscular Re-Ed Therapeutic Exercise PT Re-evaluation Therapeutic Exercise Therapeutic Activities Neuromuscular Re-Ed Therapeutic Exercise Neuromuscular Re-Ed Therapeutic Activities Therapeutic Activities Neuromuscular Re-Ed Therapeutic Exercise Therapeutic Exercise Neuromuscular Re-Ed Therapeutic Activities Therapeutic Exercise Therapeutic Activities Neuromuscular Re-Ed Therapeutic Activities Neuromuscular Re-Ed Therapeutic Exercise Therapeutic Activities Therapeutic Exercise Neuromuscular Re-Ed Therapeutic Activities Neuromuscular Re-Ed Therapeutic Exercise Neuromuscular Re-Ed Therapeutic Activities Therapeutic Exercise Therapeutic Exercise Neuromuscular Re-Ed Therapeutic Activities Therapeutic Activities Neuromuscular Re-Ed Therapeutic Exercise Neuromuscular Re-Ed Therapeutic Exercise Therapeutic Activities Therapeutic Activities Neuromuscular Re-Ed Therapeutic Exercise Neuromuscular [...] Date Provider Providers Copied on Encounter [facility] [place], [address] [address], [place], [place], [id number], [place] tel:[phone] [place] No Information Oct-0 9-202 0 Muehl Glenn. [address] [place] [address], [address], [place], [address], [place]. tel:[phone] [place], [place] [address], [place], [place], [address], [place] tel:[phone] [place] No Information Oct-0 8-202 0 Muehl Glenn. [address] [place] [address], [address], [place], [address], [place]. tel:[phone] [place] [address] [address], [place], [place], [address], [place] tel:[phone] [place] No Information Oct-0 6-202 0 Lehnen Velma. . [facility] [address] [place], [place] [address], [place], [id number], [place] tel:[phone] [place] No Information Oct-0 2-202 0 Lehnen Velma. . [facility] [address] [place], [place] [address], [place], [id number], [place] tel:[phone] [place] No Information Oct-0 1-202 0 Muehl Glenn. [address] [place] [address], [address], [place], [address], [place]. tel:[phone] [place], [place] [address], [place], [address], [place] tel:[phone] [place] No Information Sep-2 9-202 0 Muehl Glenn. [address] [place] [address], [address], [place], [address], [place]. tel:[phone] [place], [place] [address], [place], [address], [place] tel:[phone] [place] No Information Sep-2 4-202 0 Muehl Glenn. [address] [place] [address], [address], [place], [address], [place]. tel:[phone] [place], [place] [address], [place], [address], tel:[phone] [place] No Information Sep-2 2-202 0 Muehl Glenn. [address] [place] [address], [facility] [address], [place], [facility], [place]. tel:[phone] [place] [address], [place], [place], [address], tel:[phone] [place] No Information Sep-1 8-202 0 Muehl Glenn. [address] [place] [address], [address], [place], [facility], [place]. tel:[phone] [place] [address], [place], [address], tel:[phone] [place] No Information Sep-1 5-202 0 Muehl Glenn. [address] [place] [address], [facility] 105, [place], [facility], [place]. tel:[phone] [place] [address], [place], [address], [place] tel:[phone] [place] No Information Sep-1 1-202 0 Darío Cervantes. . [address], [place], [address], [place] tel:[phone] [place] No Information Sep-1 0-202 0 Muehl Glenn. [address] [place] [address], [facility] 105, [place], [facility], [place]. tel:[phone] [place] [address], [place], [address], [place] tel:[phone] [place] No Information Sep-0 8-202 0 Muehl Glenn. [address] [place] [address], [facility] 105, [place], [facility], [place]. tel:[phone] [place] [address], [place], [address], [place] tel:[phone] [place] No Information Sep-0 4-202 0 Muehl Glenn. [address] [place] [address] [address], [place], [address], [place]. tel:[phone] [place] [address], [place], [address], [place] tel:[phone] [place] No Information Sep-0 3-202 0 Muehl Glenn. [address] [place] [address], [address], [place], [address], [place]. tel:[phone] [place] [address], [place], [address], [place] tel:[phone] [place] No Information Sep-0 1-202 0 Muehl Glenn. [address] [place] [address], [address], [place], [address], [place]. tel:[phone] [place] [address], [place], [address], [place] tel:[phone] [place] No Information Aug-2 8-202 0 Threlkeld Shanell. . [address], [place], [address], [place] tel:[phone] [place] No Information Aug-2 7- 0 Muehl Glenn. [address] [place] [address], [address], [place], [address], [place]. tel:[phone] [place] [address], [place], [address], [place] tel:[phone] [place] No Information Aug-2 5-202 0 Muehl Glenn. [address] [place] [address], [address], [place], [address], [place]. tel:[phone] [place], [place] [address], [place], [address], [place] tel:[phone] [place] No Information Aug-2 1-202 0 Muehl Glenn. [address] [place] [address], [address], [place], [address], [place]. tel:[phone] [place] [address] [address], [place], [address], [place] tel:[phone] [place] No Information Aug-2 0-202 0 Muehl Glenn. [address] [place] [address], [address], [place], [facility], [place]. tel:[phone] [place] [address] [place] [address], [place], [address], [place] tel:[phone] [place] No Information Aug-1 8-202 0 Muehl Glenn. [address] [place] [address], [address], [place], [address], [place]. tel:[phone] [place] [address] [address], [place], [address], [place] tel:[phone] [place] No Information Dec-1 3-202 0 Muehl Glenn. [address] [place] [address], [address], [place], [facility], [place]. tel:[phone] [place], [place] [address] [place] [address], [place], [address], [place] tel:[phone] [place] No Information Dec-1 1- 0 Muehl Glenn. [address] [place] [address], [address], [place], [facility], [place]. tel:[phone] [place], [place] [address] [address] [address], [place], [address], [place] tel:[phone] [place] No Information Aug-0 7-202 0 Niederhoffer Helen. . [facility], [place], [address], [place] tel:[phone] [place] No Information Aug-0 6-202 0 Niederhoffer Helen. . [facility], [place], [address], [place] tel:[phone] [place] No Information Aug-0 5-202 0 Jessa Carreon. . [facility], [place], [place], [address], [place] tel:[phone] [place] No Information Nov-3 1-202 0 Muehl Glenn. [address] [place] [address], [address], [place], [address], [place]. tel:[phone] [place] [address] [address], [place], [address], [place] tel:[phone] [place] No Information Nov-3 0-202 0 Muehl Glenn. [address] [place] [address], [address], [place], [address], [place]. tel:[phone] [place] [address] [address], [place], [address], [place] tel:[phone] [place] No Information Nov- 8-202 0 Muehl Glenn. [address] [place] [address], [address], [place], [address], [place]. tel:[phone] [place] [address] [address], [place], [address], [place] tel:[phone] [place] No Information 2 4-202 0 Muehl Glenn. [address] [place] [address], [address], [place], [address], [place]. tel:[phone] [place] [address] [address], [place], [address], [place] tel:[phone] [place] No Information Nov-2 3-202 0 Muehl Glenn. [address] [place] [address], [address], [place], [address], [place]. tel:[phone] [place] [address] [address], [place], [place], [address], [place] tel:[phone] [place] No Information Nov-2 1-202 0 Muehl Glenn. [address] [place] [address], [address], [place], [address], [place]. tel:[phone] [place] [address] [address], [place], [address], [place] tel:[phone] [place] No Information Nov-1 6-202 0 Muehl Glenn. [address] [place] [address], [address], [place], [facility], [place]. tel:[phone] [place] [address] [address], [place], [address], [place] tel:[phone] [place] No Information Nov-1 4-202 0 Muehl Glenn. [address] [place] [address], [address], [place], [facility], [place]. tel:[phone] [place] [address] [address], [place], [address], [place] tel:[phone] [place] No Information Nov-1 0-202 0 Muehl Glenn. [address] [place] [address], [address], [place], [facility], [place]. tel:[phone] [place] [address] [address], [place], [address], [place] tel:[phone] [place] No Information Nov-0 9-202 0 Muehl Glenn. [address] [place] [address], [address], [place], [facility], [place]. tel:[phone] [place] [address] [address], [place], [address], [place] tel:[phone] [place] No Information Nov-0 7-202 0 Muehl Glenn. [address] [place] [address], [address], [place], [facility], [place]. tel:[phone] [place] [address] [address], [place], [address], [place] tel:[phone] [place] No Information Nov-0 2-202 0 Muehl Glenn. [address] [place] [address], [address], [place], [facility], [place]. tel:[phone] [place] [address] [address], [place], [address], [place] tel:[phone] [place] No Information Robert-3 0-202 0 Muehl Glenn. [address] [place] [address], [address], [place], [facility], [place]. tel:[phone] [place] [address], [place], [address], tel:[phone] [place] No Information Robert-2 9-202 0 Muehl Glenn. [address] [place] [address], [address], [place], [facility], [place]. tel:[phone] [place] [address], [place], [address], [place] tel:[phone] [place] No Information Robert-2 6-202 0 Muehl Glenn. [address] [place] [address], [address], [place], [facility], [place]. tel:[phone] [place] [address], [place], [address], [place] tel:[phone] [place] No Information Robert-2 5-202 0 Lehnen Velma. . [address], [place], [address], [place] tel:[phone] [place] No Information Robert-2 3-202 0 Muehl Glenn. [address] [place] [address], [address], [place], [facility], [place]. tel:[phone] [place] [address], [place], [address], [place] tel:[phone] [place] No Information Robert-1 9-202 0 Muehl Glenn. [address] [place] [address], [address], [place], [facility], [place]. tel:[phone] [place] [address] [address], [place], [address], tel:[phone] [place] No Information Robert-1 8-202 0 Muehl Glenn. [address] [place] [address], [address], [place], [facility], [place]. tel:[phone] [place] [address] 300, [place], [address], tel:[phone] [place] No Information Oct-1 6-202 0 Muehl Glenn. [address] [place] [address], [address], [place], [facility], . tel:[phone] [place] [address] 300, [place], [address], tel:[phone] [place] No Information 1 2-202 0 Muehl Glenn. [address] [place] [address], [address], [place] [address], . tel:[phone] [place] [address] 300, [place], [address], tel:[phone] [place] No Information 1-202 0 Muehl Glenn. [address] [place] [address], [address], [place], [facility], . tel:[phone] [place] [address] 300, [place], [address], tel:[phone] [place] No Information Robert-0 9-202 0 Muehl Glenn. [address] [place] [address], [address], [place] [address], . tel:[phone] [address] [place] [address], [place], [address], tel:[phone] [place] No Information Robert-0 5-202 0 Muehl Glenn. [address] [place] [address], [address] [place] [address], . tel:[phone] Family History Family Member Type Diagnosis Age At Onset No Information Payers Payer name Insurance type Covered alliance party ID [id number] skip(s) [facility] [id number] Social History Type Description Quantity Date Captured [...]
--- OUTSIDE RECORDS SUMMARY | 2024-07-31 18:32 | XMS_ITS | Encounter Summary ---
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
--- OUTSIDE RECORDS SUMMARY | 2024-07-31 18:32 | XMS_ITS | Encounter Summary ---
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
--- OUTSIDE RECORDS SUMMARY | 2024-07-31 18:32 | XMS_ITS | Encounter Summary ---
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
--- OUTSIDE RECORDS SUMMARY | 2024-07-31 18:32 | XMS_ITS | Clinical Summary ---
Author Organization [facility] Address [address] [place] [address] Care Team Providers Care Watch Dial Maker Name Role Phone Lamberto Barker MD Primary Care Provider [phone] Allergies Active Allergy Reactions Criticality Noted Date [...] total) by mouth daily. 3 Active CREON 65405-54250 units CAPSULE ENTERIC COATED PARTICLES Take 1 [...] no ischemic changes. He reports hx of [place] in the past, unclear circumstances. He had an exercise stress test in spring at an outside facility that he says was normal. Cont ASA. Pancreatic pseudocyst ([facility]) 07/26/2021 Severe sepsis ([facility]) 07/08/2021 Overview (11/04/2022): Last Assessment & [...] Alcohol dependence with unsp ecified alcohol-induced disorder ([facility]) 06/25/2021 Overview (11/04/2022): Last Assessment & [...] has AA resources for discharge. Acute pancreatitis ([facility]) 06/20/2021 Pancreatitis ([facility]) 05/08/2019 Hypertension Tobacco abuse Resolved Problems Problem Noted Date Diagnosed Date Resolved Date Acute pancreatitis ([facility]) 12/28/2020 06/01/2021 Hypokalemia 06/20/2020 12/25/2020 Acute pancreatitis ([facility]) 06/19/2020 12/25/2020 Necrotizing pancreatitis ([facility]) 10/21/2019 12/25/2020 Other constipation 10/21/2019 Encounters Date Type Department Care Team Description 07/20/2024 2:13 PM PEELED POTATO INSPECTOR - 07/20/2024 4:18 PM [facility] Emergency [facility] [place] [address] Lizette Shah MD Alcohol Intoxication Discharge Disposition: Left Against Medical Advice 07/20/2024 Travel 07/19/2024 11:53 AM PEELED POTATO INSPECTOR - 07/19/2024 1:27 PM [facility] Emergency [facility] [place] [address] Lizette Shah MD Alcohol Intoxication Discharge Disposition: Left Against Medical Advice 07/19/2024 Travel 07/06/2024 2:36 AM PEELED POTATO INSPECTOR - 07/06/2024 6:29 AM [facility] Emergency [facility] [place] [address] Daniel Hitchcock MD Withdrawal- Alcohol Discharge Disposition: [...] How often do you attend chur or confucianism services? Never 12/25/2020 Do you belong to any clubs o r organizations such as gnosticism groups, unions, fraternal or athletic groups, or [...] move on to questions 3-9 2 12/25/2020 [facility] - Occupational [...] No 12/25/2020 Housing Stability Vital Sign Answer Dangeol e Recorded In the last 12 months, [...] place to sleep or slept in a residential (including now)? No 12/25/2020 Sex and Gender Information Value Date Recorded Sex Assigned at Male 12/25/2020 2:35 AM CDT Legal Sex Male 7:50 PM CDT Gender Identity Male 12/25/2020 2:35 AM CDT Sexual Orientation Straight 12/25/2020 2: 35 AM CDT Last Filed Vital Signs Vital Sign Reading Time Taken Comments Blood Pressure 99/62 07/20/2024 3:00 PM [employer]ED POTATO INSPECTOR Pulse 98 07/20/2024 3:00 PM [employer] POTATO INSPECTOR Temperature 37.1 C (98.8 F) 07/20/2024 2:33 PM PE[employer]ED POTATO INSPECTOR Respiratory Rate 18 07/20/2024 3:00 PM PEELED POTATO INSPECTOR Oxygen Saturation 93% 07/20/2024 3:00 PM PEELED POTATO INSPECTOR Inhaled Oxygen Concentration - - Weight 79.2 kg (174 lb 9.7 oz) 07/20/2024 2:15 P M PEELED POTATO INSPECTOR Height 182.9 cm (6') 07/20/2024 2:15 PM PEELED POTATO INSPECTOR Body Mass Index 23.68 07/20/2024 2:15 PM PEELED POTATO INSPECTOR Plan of Treatment Health Maintenance Due Date [...] (#1) 2024 03/08/2021, 03/03/2019, 02/05/2018 PHQ-2 (Physician [place]) 05/29/2024 Colorectal Cancer Screening FIT/FOBT (1 Year) [...] Reduce alcohol intake Lifestyle No Nancy Matthews radiology technologist Procedure Name Priority Date/Time Associated Diagnosis Comments LIPASE STAT 07/20/2024 2:44 PM PEELED POTATO INSPECTOR MAGNESIUM STAT 07/20/2024 2:44 PM PEELED POTATO INSPECTOR COMPREHENSIVE METABOLIC PANEL STAT 07/20/2024 2:44 PM PEELED POTATO INSPECTOR CBC W/DIFF AUTOMATED STAT 07/20/2024 2:44 PM PEELED POTATO INSPECTOR LIPASE STAT 07/19/2024 12:38 PM PEELED POTATO INSPECTOR MAGNESIUM STAT 07/19/2024 12:38 PM PEELED POTATO INSPECTOR COMPREHENSIVE METABOLIC PANEL STAT 07/19/2024 12:38 PM PEELED POTATO INSPECTOR CBC W/DIFF AUTOMATED STAT 07/19/2024 12:38 PM PEELED POTATO INSPECTOR CT HEAD WO CON STAT 07/06/2024 3:15 AM PEELED POTATO INSPECTOR LIPASE STAT 07/06/2024 3:00 AM PEELED POTATO INSPECTOR ETHANOL STAT 07/06/2024 3:00 AM PEELED POTATO INSPECTOR MAGNESIUM STAT 07/06/2024 3:00 AM PEELED POTATO INSPECTOR TROPONIN, QUANT STAT 07/06/2024 3:00 AM PEELED POTATO INSPECTOR COMPREHENSIVE METABOLIC PANEL STAT 07/06/2024 3:00 AM PEELED POTATO INSPECTOR CBC W/DIFF AUTOMATED STAT 07/06/2024 3:00 AM PEELED POTATO INSPECTOR OCCULT BLOOD, FECES Routine 09/15/2019 4 :49 PM CDT from Last 3 Months or Most Recently Relevant to Health Maintenance Results * (ABNORMAL) COMPREHENSIVE METABOLIC PANEL (07/20/2024 2:44 PM PEELED POTATO INSPECTOR) Only the most recent of3 resultswithin the time period is included. [facility] Signature GLUCOSE 115(H) 70 - 99 MG/DL 07/20/2024 3:19 PM [facility] BUN 7 7 - 18 MG/DL 07/20/2024 3:19 PM [facility] CREATININE S/P/B 0.62(L) 0.7 - 1.3 MG/DL 07/20/2024 3:19 PM [facility] SODIUM S/P/B 139 136 - 145 MMOL/L 07/20/2024 3:19 PM [facility] POTASSIUM S/P/B 3.6 3.5 - 5.1 MMOL/L 07/20/2024 3:19 PM [facility] CHLORIDE S/P/B 106 97 - 115 MMOL/L 07/20/2024 3:19 PM [facility] CO2 24.0 21 - 32 MMOL/L 07/20/2024 3:19 PM [facility] CALCIUM S/P/B 8.8 8.5 - 10.1 MG/DL 07/20/2024 3:19 PM [facility] BILIRUBIN TOTAL S/P/B 0.2 0.2 - 1.2 MG/DL 07/20/2024 3:19 PM [facility] Comment: THIS ASSAY IS NOT RECOMMENDED FOR PATIENTS UNDERGOING TREATMENT WITH ELTROMBOPAG DUE TO THE POTENTIAL FOR FALSELY ELEVATED RESULTS. TOTAL PROTEIN S/P/B 6.9 6.4 - 8.2 G/DL 07/20/2024 3:19 PM [facility] ALBUMIN S/P/B 2.9(L) 3.4 - 5.0 G/DL 07/20/2024 3:19 PM [facility] AST 50(H) 15 - 37 U/L 07/20/2024 3:19 PM [facility] ALT 34 16 - 60 U/L 07/20/2024 3:19 PM [facility] ALKALINE PHOSPHATASE S/P/B 496(H) 50 - 136 U/L 07/20/2024 3:19 PM [facility] ANION GAP 9.0 2 - 10 MMOL/L 07/20/2024 3:19 PM [facility] BUN CREATININE RATIO 11.2 6 - 26 07/20/2024 3:19 PM [facility] A/G RATIO 0.7(L) 1.0 - 2.0 RATIO 07/20/2024 3:19 PM [facility] GFR ESTIMATE >90 >90 ML/MIN/1.7 3 M2 07/20/2024 3:19 PM [facility] Comment: NOTE: eGFR is not calculated for patients <18 years of age or gender unknown. This is an estimated GFR calculation using the new CKD EPI creatinine equation without race and so does not require a correction factor for race. This estimated GFR should not be used for calculating drug doses. 07/20/2024 2:44 PM PEELED POTATO INSPECTOR us Lizette Shah MD LABORATORY Final Result [facility] [address] [place] [address], [place] [phone] * (ABNORMAL) CBC W/DIFF AUTOMATED (07/20/2024 2:44 PM PEELED POTATO INSPECTOR) Only the most recent of3 resultswithin the time period is included. WBC 6.16 4.5 - 11.0 x10'3/uL 07/20/2024 2:52 PM [facility] RBC 3.76(L) 4.70 - 6.10 x10'6/uL 07/20/2024 2:52 PM [facility] HGB 11.4(L) 14.0 - 18.0 G/DL 07/20/2024 2:52 PM [facility] HCT 34.8(L) 43.0 - 54.0 % 07/20/2024 2:52 PM [facility] MCV 92.6 80.0 - 94.0 FL 07/20/2024 2:52 PM [facility] MCH 30.3 27.0 - 31.0 PG 07/20/2024 2:52 PM [facility] MCHC 32.8 32.0 - 36.0 G/DL 07/20/2024 2:52 PM [facility] RDW 16.5(H) 11.5 - 14.5 % 07/20/2024 2:52 PM [facility] PLT 433(H) 130 - 400 x10'3/uL 07/20/2024 2:52 PM [facility] MPV 8.8(L) 9.3 - 12.2 FL 07/20/2024 2:52 PM [facility] DIFFERENTIAL TYPE AUTOMATED DIFFERENTIAL 07/20/2024 2:52 PM [facility] NEUTROPHILS % 54.6 % 07/20/2024 2:52 PM [facility] LYMPHOCYTES % 31.2 % 07/20/2024 2:52 PM [facility] MONOCYTES % 12.0 % 07/20/2024 2:52 PM [facility] EOSINOPHILS 0.3 % 07/20/2024 2:52 PM [facility] BASOPHILS 1.6 % 07/20/2024 2:52 PM PEELED POTATO INSPECTOR [facility] IMMATURE GRANS % 0.3 % 07/20/19 2:52 PM PEELED POTATO INSPECTOR [facility] ABS. NEUTROPHILS 3.36 1.80 - 7.70 x10'3/uL 07/20/2024 2:52 PM PEELED POTATO INSPECTOR [facility] ABS. LYMPHOCYTES 1.92 1.00 - 4.80 x10'3/uL 07/20/2024 2:52 PM PEELED POTATO INSPECTOR [facility] ABS. MONOCYTES 0.74 0.30 - 0.82 x10'3/uL 07/20/2024 2:52 PM PEELED POTATO INSPECTOR [facility] ABS. EOSINOPHILS 0.02(L) 0.04 - 0.54 x10'3/uL 07/20/2024 2:52 PM PEELED POTATO INSPECTOR [facility] ABS. BASOPHILS 0.10(H) 0.01 - 0.08 x10'3/uL 07/20/2024 2:52 PM PEELED POTATO INSPECTOR [facility] ABS. IMMATURE GRANULOCYTES 0.02 0.00 - 0.49 x10'3/uL 07/20/2024 2:52 PM PEELED POTATO INSPECTOR [facility] 07/20/2024 2:44 PM PEELED POTATO INSPECTOR us Lizette Shah MD LABORATORY Final Result [facility] [address] [place] [address], * MAGNESIUM (07/20/2024 2:44 PM PEELED POTATO INSPECTOR) Only the most recent of3 resultswithin the time period is included. MAGNESIUM 2.2 1.8 - 2.4 MG/DL 07/20/2024 3:19 PM PEELED POTATO INSPECTOR [facility] 07/20/2024 2:44 PM PEELED POTATO INSPECTOR us Lizette Shah MD LABORATORY Final Result [facility] [address] [place] [address], [place] [phone] * LIPASE (07/20/2024 2:44 PM PEELED POTATO INSPECTOR) Only the most recent of3 resultswithin the time period is included. LIPASE 17 13 - 75 UNITS/L 07/20/2024 3:19 PM PEELED POTATO INSPECTOR [facility] 07/20/2024 2:44 PM PEELED POTATO INSPECTOR us Lizette Shah MD LABORATORY Final Result Performing Organization Address [facility] de Phone Number [facility] [address] [place] [id number], [place] [phone] * CT HEAD WO CON (07/06/2024 3:15 AM PEELED POTATO INSPECTOR) Anatomical Region Laterality Modality Head Computed Tomogra phy 07/06/2024 3:13 AM PEELED POTATO INSPECTOR Impressions 07/06/2024 3:16 AM PEELED POTATO INSPECTOR IMPRESSION: 1. No acute intracranial abnormality. 2. [...] 07/06/2024 3:13 AM Narrative 07/06/2024 3:16 AM PEELED POTATO INSPECTOR [facility] [address], [place] [address] EXAMINATION: CT Head without Contrast, Axial Imaging [...] Procedure Note Sparkle Monaco MD - 07/06/2024 [facility] [address] [place] [address] EXAMINATION: CT Head without Contrast, Axial Imaging [...] t * TROPONIN, QUANT (07/06/2024 3:00 AM PEELED POTATO INSPECTOR) [facility] TROPONIN I HIGH SENSITIVITY 9 <79 ng/L 07/06/2024 3:58 AM PEELED POTATO INSPECTOR [facility] Comment: HIGH DOSES OF BIOTIN, TROPONIN-SPECIFIC AUTOANTIBODIES, AND ANTIBODY THERAPY CONTAINING HAMA MAY INTERFERE WITH THIS TEST RESULT. CORRELATION TO CLINICAL HISTORY AND PRESENTATION RECOMMENDED. 07/06/2024 3:00 AM PEELED POTATO INSPECTOR us Daniel Hitchcock MD LABORATORY Final Resul t Performing Organization Address City/[facility]/ZIP Co de Phone Number [facility] [address] [place] [id number], * (ABNORMAL) ETHANOL (07/06/2024 3:00 AM PEELED POTATO INSPECTOR) [facility] ALCOHOL S/P/B 0.158(H) <0.003 G/DL 07/06/2024 3:58 AM PEELED POTATO INSPECTOR [facility] 07/06/2024 3:00 AM PEELED POTATO INSPECTOR us Daniel Hitchcock MD LABORATORY Final Resul t [facility] [address] [place] [id number], [place] [phone] * OCCULT BLOOD, FECES (09/15/2019 4:49 PM CDT) [facility] OCCULT BLOOD FECAL NEGATIVE 09/15/2019 5:56 PM CDT [facility] STOOL SPECIMEN / Unknown 09/15/2019 4:49 PM CDT González Morataya PA-C BODY FLUIDS AND STOOLS ORDERAB LES Final Result [facility] [address] [place] [address], from Last 3 Months or Most Recently [...] 11:31 PM 12/26/2020 7:51 PM Care Teams Watch Dial Maker Relationship Specialty Start Date End Date Lamberto Barker MD [address] [place] [address] PCP - General INTERNAL MEDICINE 05/08/19
--- OUTSIDE RECORDS SUMMARY | 2024-07-31 18:33 | XMS_ITS | Referral Summary ---
Author Organization [facility] Address [address] [place] [address] Care Team Providers Care Paper Tube Machine Operator Name Role Phone Don Walton Primary Care Provider Encounters Date Type Department Care Team Description 07/23/2024 10:42 AM CLINICAL LABORATORY DIRECTOR - 07/23/2024 3:32 PM [facility] Emergency [facility] Emergency Department [address] [place] [address] Discharge Disposition: Left without being seen from Last 3 Months Allergies Active Allergy Reactions Criticality Noted Date Comments Ciprofloxacin Hives Medium 06/02/2023 Patient stated he has previously tolerated PO. 06/02/23 had redness and hives after IV dose. Penicillins Rash Medium 05/08/2019 Kotopfaqwagi-Hnitljufig-Znq trs Angioedema High 09/17/[address] [...] daily 30 patch 01/12/20 22 Active multivit fgdwzfle-angk-CJ-c alcium (THERA-M) 9 mg iron-400 mcg tabletIndications: [...] 06/10/2023 Assessment & Plan (06/12/2023 2:18 PM CLINICAL LABORATORY DIRECTOR): Patient reports feeling constipated, gassy and bloated. [...] 06/08/2023 Assessment & Plan (06/09/2023 1:55 PM CLINICAL LABORATORY DIRECTOR): Resolved. Acute pancreatitis, unspecif ied complication status, unspecified pancreatitis type 06/04/2023 Assessment & Plan (06/05/2023 12:45 PM CLINICAL LABORATORY DIRECTOR): Longstanding bouts of pancreatitis originally from EtOH [...] 06/04/2023 Assessment & Plan (06/05/2023 12:48 PM CLINICAL LABORATORY DIRECTOR): Likely from pancreatitis. Also tender to palpation initially so may be a musculoskeletal component from dry heaving. Trops negative. EKG no ischemic changes. He reports hx of CT in the past, unclear circumstances. He had an exercise stress test in spring at an outside facility that he says was normal. Cont ASA. Gram-negative bacteremia 04/11/2023 Assessment & Plan (04/13/2023 7:02 PM CLINICAL LABORATORY DIRECTOR): - due to cholangitis - BCx + for E coli and K. Pneumoniae - repeat BCx drawn 04/11, ngtd - pansensitive organisms - d/c home today with flagyl/cipro Cholangitis 04/10/2023 Assessment & Plan (04/12/2023 6:21 PM CLINICAL LABORATORY DIRECTOR): - Improving - 04/10 ERCP - removal of two migrates stents with biliary obstruction and replaced with 2 new stents in biliary stricture - PRN analgesics and antiemetics Assessment & Plan (04/10/2023 2:40 AM CLINICAL LABORATORY DIRECTOR): -meets [place] criteria for acute cholangitis based [...] less likely MRCP------> GI consult ordered in [facility] -NPO x sips, ice chips -IVFs overnight -PRN analgesics and antiemetics -repeat CBC, BMP, HFP in AM 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 Encounter for removal of biliary stent 3 Acute recurrent pancreatitis 01/26/2022 Post-ERCP acute pancreatitis 01/04/2022 Assessment & Plan (06/13/2023 2:35 PM CLINICAL LABORATORY DIRECTOR): Recently admitted from 06/04-06/05/23 after ERCP on [...] (01/05/2022): Added automatically from request for surgery [id number] Assessment & Plan (04/11/2023 3:57 PM CLINICAL LABORATORY DIRECTOR): - improving -2/2 stent migration and resultant biliary obstruction Assessment & Plan (04/10/2023 2:27 AM CLINICAL LABORATORY DIRECTOR): -2/2 stent migration and resultant biliary obstruction -mgmt as above -repeat HFP in AM 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 Overview (11/30/2021): Added automatically from request for surgery [id number] Encounter for replacement of biliary stent 11/30 Overview (11/30/2021): Added automatically from request for surgery [id number] 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 Pancreatic pseudocyst 07/26/2021 Severe sepsis 07/08/2021 Assessment & Plan (07/13/2021 9:43 AM CLINICAL LABORATORY DIRECTOR): Pt elevated temp on 07/07 overnight 38.1 [...] infection Assessment & Plan (07/12/2021 9:40 AM CLINICAL LABORATORY DIRECTOR): Pt elevated temp on 2 overnight 38.1 max, hypotensive with normal lactate but new OJSE, transferred to Stepdown, aggressive IVF, BCx, empirical [...] infection Assessment & Plan (07/11/2021 10:55 AM CLINICAL LABORATORY DIRECTOR): Pt elevated temp on 2 overnight 38.1 [...] bed Assessment & Plan (07/10/2021 9:10 AM CLINICAL LABORATORY DIRECTOR): Pt elevated temp on 07/07 overnight 38.1 [...] daily Assessment & Plan (07/09/2021 2:23 PM CLINICAL LABORATORY DIRECTOR): Pt elevated temp on 2 overnight 38.1 [...] daily Assessment & Plan (07/08/2021 1:53 PM CLINICAL LABORATORY DIRECTOR): Pt elevated temp overnight 38.1 max, hypotensive with normal lactate but new JOES, transferred to Stepdown, aggressive IVF, BC, empirical [...] 07/07/2021 Assessment & Plan (07/13/2021 9:43 AM CLINICAL LABORATORY DIRECTOR): Dobbhoff placed 2/10, tube feeding to initiated Osmolite 1.5 at 55mL/hr over 24h via NJ tube continuous via pump. Flush with 150mL water q4h. Now at goal of 55cc/hr. Can cycle at home as instructed. Will continue TF until follow up with GI as outpatient Assessment & Plan (07/12/2021 9:39 AM CLINICAL LABORATORY DIRECTOR): Dobbhoff placed 2/10, tube feeding to initiated Osmolite 1.5 at 55mL/hr over 24h via [place] tube continuous via pump. Flush with 150mL water q4h. Now at goal of 55cc/hr. Can cycle at home as instructed. Will continue TF until follow up with GI as outpatient Assessment & Plan (07/11/2021 10:55 AM CLINICAL LABORATORY DIRECTOR): Dobbhoff placed 2/10, tube feeding to initiated [...] Phos Assessment & Plan (07/10/2021 9:08 AM CLINICAL LABORATORY DIRECTOR): Dobbhoff placed 07/08, tube feeding to initiated [...] Phos Assessment & Plan (07/09/2021 2:25 PM CLINICAL LABORATORY DIRECTOR): Dobbhoff placed 07/08, tube feeding to initiated [...] prn Assessment & Plan (07/08/2021 1:11 PM CLINICAL LABORATORY DIRECTOR): Dobbhoff placed 07/08, tube feeding to initiate TF recommendations: Goal: Osmolite 1.5 at 55mL/hr over 24h via NJ tube continuous via pump. Flush with 150mL water q4h. Initiate TF at 10mL/hr and increase by 10mL q4h until goal rate is reached Chronic pancreatitis, unspecified pancreatitis t ype 07/06/2021 Assessment & Plan (07/13/2021 9:42 AM CLINICAL LABORATORY DIRECTOR): Ongoing acute episode of (developing) chronic pancreatitis. [...] home Assessment & Plan (07/12/2021 9:38 AM CLINICAL LABORATORY DIRECTOR): Ongoing acute episode of (developing) chronic pancreatitis. [...] 07/13 Assessment & Plan (07/11/2021 10:53 AM CLINICAL LABORATORY DIRECTOR): Ongoing acute episode of (developing) chronic pancreatitis. [...] discharge Assessment & Plan (07/10/2021 9:07 AM CLINICAL LABORATORY DIRECTOR): Ongoing acute episode of developing chronic pancreatitis. [...] feedings Assessment & Plan (07/09/2021 2:30 PM CLINICAL LABORATORY DIRECTOR): Ongoing acute episode of chronic pancreatitis. Just [...] CTM Assessment & Plan (07/08/2021 1:49 PM CLINICAL LABORATORY DIRECTOR): Ongoing acute episode of chronic pancreatitis. Just [...] plan Assessment & Plan (07/07/2021 11:22 AM CLINICAL LABORATORY DIRECTOR): Ongoing acute episode of chronic pancreatitis. Just [...] plan Assessment & Plan (07/06/2021 5:30 PM CLINICAL LABORATORY DIRECTOR): Ongoing acute episode of chronic pancreatitis. Just [...] 07/06/2021 Assessment & Plan (07/13/2021 9:42 AM CLINICAL LABORATORY DIRECTOR): Likely ATN related to hypotensive episode. Cr peaked at Cr at 2.31, now back to baseline after aggressive IVF and now tolerating TF. Assessment & Plan (07/12/2021 9:36 AM CLINICAL LABORATORY DIRECTOR): Likely ATN related to hypotensive episode. Cr peaked at Cr at 2.31, now back to baseline after aggressive IVF and now tolerating TF. Assessment & Plan (07/11/2021 10:54 AM CLINICAL LABORATORY DIRECTOR): Likely ATN related to hypotensive episode. Cr peaked at Cr at 2.31, now back to baseline after aggressive IVF, continue to monitor bmp, continue fluids Assessment & Plan (07/10/2021 9:08 AM CLINICAL LABORATORY DIRECTOR): Likely ATN related to hypotensive episode. Cr peaked at Cr at 2.31, now back to baseline after aggressive IVF, continue to monitor bmp, continue fluids Assessment & Plan (07/09/2021 2:29 PM CLINICAL LABORATORY DIRECTOR): Cr at baseline after aggressive IVF, continue to monitor bmp, continue fluids Assessment & Plan (07/08/2021 1:10 PM CLINICAL LABORATORY DIRECTOR): Cr baseline 0.8 now up to 1.3 on arrival due to po intolerance Aggressive IVF will monitor urine output Today net fluid intake 191 Cr trended up to 2.31 continue aggressive fluids Daily bmp Continue IVF Assessment & Plan (07/07/2021 11:19 AM CLINICAL LABORATORY DIRECTOR): Cr baseline 0.8 now up to 1.3 on arrival due to po intolerance Aggressive IVF will monitor urine output Today net fluid intake 191 Cr 1.05 improving with fluids Daily bmp Continue IVF Assessment & Plan (07/06/2021 5:39 PM CLINICAL LABORATORY DIRECTOR): Cr baseline 0.8 now up to 1.3 on arrival due to po intolerance Aggressive IVF will monitor urine output Alcohol dependence 06/25/2021 Assessment & Plan (06/07/2023 5:01 AM CLINICAL LABORATORY DIRECTOR): Last drink on and he reports being [...] program Assessment & Plan (07/13/2021 9:42 AM CLINICAL LABORATORY DIRECTOR): Has a long history of alcohol use [...] Group Assessment & Plan (07/12/2021 9:36 AM CLINICAL LABORATORY DIRECTOR): Has a long history of alcohol use [...] Group Assessment & Plan (07/11/2021 10:54 AM CLINICAL LABORATORY DIRECTOR): Has a long history of alcohol use [...] Group Assessment & Plan (07/10/2021 9:05 AM CLINICAL LABORATORY DIRECTOR): Has a long history of alcohol use [...] Group Assessment & Plan (07/09/2021 2:33 PM CLINICAL LABORATORY DIRECTOR): Has a long history of alcohol use [...] Group Assessment & Plan (07/08/2021 1:06 PM CLINICAL LABORATORY DIRECTOR): Has a long history of alcohol use with dependence. He states he has not had a drink since before his ERCP 06/22/2021 and has been on Vivitrol injections. His ethanol level on arrival to the ED is negative Plan to continue EtOH cessation and support with outpatient naltrexone therapy. Assessment & Plan (07/07/2021 11:13 AM CLINICAL LABORATORY DIRECTOR): Has a long history of alcohol use with dependence. He states he has not had a drink since before his ERCP 06/22/2021 and has been on Vivitrol injections. His ethanol level on arrival to the ED is negative Plan to continue EtOH cessation and support with outpatient naltrexone therapy. Assessment & Plan (07/06/2021 5:22 PM CLINICAL LABORATORY DIRECTOR): Has a long history of alcohol use with dependence. He states he has not had a drink since before his ERCP 06/22/2021 and has been on Vivitrol injections. His ethanol level on arrival to the ED is negative Plan to continue EtOH cessation and support with outpatient naltrexone therapy Assessment & Plan (06/28/2021 11:39 AM CLINICAL LABORATORY DIRECTOR): Long standing hx of alcohol dependence with [...] needed Assessment & Plan (06/27/2021 11:47 AM CLINICAL LABORATORY DIRECTOR): Long standing hx of alcohol dependence with [...] needed Assessment & Plan (06/26/2021 11:59 AM CLINICAL LABORATORY DIRECTOR): Long standing hx of alcohol dependence with [...] 06/25/2021 Assessment & Plan (06/07/2023 5:06 AM CLINICAL LABORATORY DIRECTOR): Markedly hypertensive on ED arrival in the setting of pain -Continue home Amlodipine 10 mg qday and losartan 25 mg qday Assessment & Plan (06/05/2023 12:47 PM CLINICAL LABORATORY DIRECTOR): Hypertensive initially from pain. Improved today. Cont home meds. Assessment & Plan (04/12/2023 6:21 PM CLINICAL LABORATORY DIRECTOR): -continue norvasc Assessment & Plan (04/10/2023 2:31 AM CLINICAL LABORATORY DIRECTOR): -resume norvasc in AM Assessment & Plan (01/11/2022 11:23 AM CDT): Continue norvasc Assessment & Plan (01/10/2022 11:40 AM CDT): Continue norvasc Assessment & Plan (07/13/2021 9:43 AM CLINICAL LABORATORY DIRECTOR): Continue to hold home lisinopril on account of recent hypotension/JOSE. With low normotensive BP will discontinue lisinopril. Follow up with PCP in 2-4 weeks to re evaluate restarting if needed Assessment & Plan (07/12/2021 9:38 AM CLINICAL LABORATORY DIRECTOR): Continue to hold home lisinopril on account of recent hypotension/JOSE. BP normal, may not require lisinopril on discharge. Assessment & Plan (07/11/2021 10:54 AM CLINICAL LABORATORY DIRECTOR): Continue to hold home lisinopril on account of recent hypotension/JOSE. BP normal, may not require lisinopril on discharge. Assessment & Plan (07/10/2021 9:06 AM CLINICAL LABORATORY DIRECTOR): Continue to hold home lisinopril on account of recent hypotension Assessment & Plan (07/09/2021 2:32 PM CLINICAL LABORATORY DIRECTOR): Continue to hold home lisinopril until more stable BP Assessment & Plan (07/08/2021 1:06 PM CLINICAL LABORATORY DIRECTOR): BP hypotensive overnight hold antihypertensives at this time. Assessment & Plan (07/07/2021 11:15 AM CLINICAL LABORATORY DIRECTOR): BP on remain normotensive Continue lisinopril and pain control Assessment & Plan (07/06/2021 5:30 PM CLINICAL LABORATORY DIRECTOR): BP on arrival normotensive Continue lisinopril and pain control Assessment & Plan (06/28/2021 11:39 AM CLINICAL LABORATORY DIRECTOR): Continue home lisinopril 40 mg -Monitor BP -BP stable Assessment & Plan (06/27/2021 11:48 AM CLINICAL LABORATORY DIRECTOR): Continue home lisinopril 40 mg -Monitor BP/Cr -BP stable Assessment & Plan (06/25/2021 4:55 PM CLINICAL LABORATORY DIRECTOR): Continue home lisinopril 40 mg -Monitor BP/Cr -Daily BMP Tobacco abuse 06/25/2021 Major depressive disorder 06/25/2021 Assessment & Plan (06/07/2023 5:07 AM CLINICAL LABORATORY DIRECTOR): Continue home duloxetine 30 mg BID and trazodone 50 mg qhs Assessment & Plan (06/04/2023 11:58 AM CLINICAL LABORATORY DIRECTOR): Cont home meds Assessment & Plan (01/11/2022 11:23 AM CDT): Continue duloxetine scheduled and trazodone prn Assessment & Plan (01/10/2022 11:40 AM CDT): Continue duloxetine scheduled and trazodone prn Assessment & Plan (07/13/2021 9:43 AM CLINICAL LABORATORY DIRECTOR): Most certainly contributing to his long standing alcohol use. Continue home meds duloxetine and trazodone Assessment & Plan (07/12/2021 9:38 AM CLINICAL LABORATORY DIRECTOR): Most certainly contributing to his long standing alcohol use. Continue home meds duloxetine and trazodone Assessment & Plan (07/11/2021 10:54 AM CLINICAL LABORATORY DIRECTOR): Most certainly contributing to his long standing alcohol use. Continue home meds duloxetine and trazodone Assessment & Plan (07/10/2021 9:06 AM CLINICAL LABORATORY DIRECTOR): Most certainly contributing to his long standing alcohol use. Continue home meds duloxetine and trazodone Assessment & Plan (07/09/2021 2:30 PM CLINICAL LABORATORY DIRECTOR): Most certainly contributing to his long standing alcohol use now with cessation Continue home meds duloxetine and trazodone Assessment & Plan (07/08/2021 1:09 PM CLINICAL LABORATORY DIRECTOR): Most certainly contributing to his long standing alcohol use now with cessation Continue home meds duloxetine and trazodone Assessment & Plan (07/07/2021 11:16 AM CLINICAL LABORATORY DIRECTOR): Most certainly contributing to his long standing alcohol use now with cessation Continue home meds duloxetine and trazodone Assessment & Plan (07/06/2021 5:32 PM CLINICAL LABORATORY DIRECTOR): Most certainly contributing to his long standing alcohol use now with cessation Continue home meds duloxetine and trazodone Assessment & Plan (06/28/2021 11:39 AM CLINICAL LABORATORY DIRECTOR): Continue home Trazodone 50 mg, Cymbalta 30 mg Resume Biofeedback at discharge Assessment & Plan (06/27/2021 11:48 AM CLINICAL LABORATORY DIRECTOR): Continue home Trazodone 50 mg, Cymbalta 30 mg Resume Biofeedback at discharge Assessment & Plan (06/25/2021 4:57 PM CLINICAL LABORATORY DIRECTOR): Continue home Trazodone 50 mg, Cymbalta 30 mg Resume Biofeedback at discharge Pancreatic duct obstruction 06/11/2021 Overview (06/11/2021): Added automatically from request for surgery [id number] Abdominal pain 06/11/2021 Overview (06/11/2021): Added automatically from request for surgery [id number] Necrotizing pancreatitis 10/21/2019 Therapeutic opioid induced constipation 10/21/19 20 Assessment & Plan (07/13/2021 9:44 AM CLINICAL LABORATORY DIRECTOR): Continue bowel regimen Assessment & Plan (07/12/2021 9:41 AM CLINICAL LABORATORY DIRECTOR): Bowel regimen ordered without BM. Will titrate bowel regimen Assessment & Plan (07/11/2021 10:58 AM CLINICAL LABORATORY DIRECTOR): Bowel regimen ordered Assessment & Plan (06/28/2021 11:39 AM CLINICAL LABORATORY DIRECTOR): Pt states no BM for the past week. Likely due to decrease intake and vomiting, possible contribution from opioids -daily bowel regimen, had BM Monday Assessment & Plan (06/27/2021 11:48 AM CLINICAL LABORATORY DIRECTOR): Pt states no BM for the past week. Likely due to decrease intake and vomiting, possible contribution from opioids -daily bowel regimen Assessment & Plan (06/26/2021 12:00 PM CLINICAL LABORATORY DIRECTOR): Pt states no BM for the past week. Likely due to decrease intake and vomiting, possibly contribution from opioids -daily bowel regimen -clear liquid diet Acute pancreatitis 05/08/2019 Assessment & Plan (06/28/2021 11:38 AM CLINICAL LABORATORY DIRECTOR): Hx of chronic pancreatis starting 3 years [...] prioritized. Assessment & Plan (06/27/2021 11:46 AM CLINICAL LABORATORY DIRECTOR): Hx of chronic pancreatis starting 3 years [...] prioritized. Assessment & Plan (06/26/2021 11:59 AM CLINICAL LABORATORY DIRECTOR): Hx of chronic pancreatis starting 3 years [...] 04/11/2023 Assessment & Plan (04/10/2023 2:38 AM CLINICAL LABORATORY DIRECTOR): -migrated stent likely etiology of presenting symptoms and lab, CT findings -will likely need ERCP for stent exchange on Monday Metabolic acidosis, increased anion gap (IAG) 06/25/19 22 07/09/2021 Assessment & Plan (07/09/2021 2:31 PM CLINICAL LABORATORY DIRECTOR): Dobbhoff placed 07/08, to start tube feeding TF recommendations: Goal: Osmolite 1.5 at 55mL/hr over 24h via [place] tube continuous via pump. Flush with 150mL water q4h. Initiate TF at 10mL/hr and increase by 10mL q4h until goal rate is reached Assessment & Plan (07/08/2021 1:49 PM CLINICAL LABORATORY DIRECTOR): Due to starvation in the setting of [...] reached Assessment & Plan (07/07/2021 11:16 AM CLINICAL LABORATORY DIRECTOR): Due to starvation in the setting of intolerance to PO for the last 3-4 days. Will provide aggressive IVF Continue to discuss enteral feedings with the patient going forward, currently pt is refusing, GI will readdress with pt today with goal for placement today should pt agree. Change IVF to D5LR Assessment & Plan (07/06/2021 5:38 PM CLINICAL LABORATORY DIRECTOR): Due to starvation in the setting of intolerance to PO for the last 3-4 days. Will provide aggressive IVF Continue to discuss enteral feedings with the patient going forward Assessment & Plan (06/28/2021 11:39 AM CLINICAL LABORATORY DIRECTOR): Likely dehydration from pancreatitis, n/v and poor intake. Heme concentrated hgb 14.9 (baseline 8-9), wbc 14.4 no source of infection likely heme concentrated, anion gap 20, UA ketone +1. Resolved with IVF Assessment & Plan (06/27/2021 11:47 AM CLINICAL LABORATORY DIRECTOR): Likely dehydration from pancreatitis, n/v and poor intake. Heme concentrated hgb 14.9 (baseline 8-9), wbc 14.4 no source of infection likely heme concentrated, anion gap 20, UA ketone +1. Resolved with IVF Assessment & Plan (06/26/2021 12:00 PM CLINICAL LABORATORY DIRECTOR): Likely dehydration from pancreatitis, n/v and poor [...] 0.6 oz pur e alcohol) [facility] Utilities Answer Date Recorded In the [...] often do you attend chur ch or yazdanism services? 1 to 4 times per year [...] on file Legal Sex Male 1:58 AM CLINICAL LABORATORY DIRECTOR Gender Identity Not on file Sexual Orientation Not on file Occupation Industry Job Start Date Job End Date disability Not on file Not on file Not on file Last Filed Vital Signs Vital Sign Reading Time Taken Comments Blood Pressure 125/77 07/23/2024 10:51 AM CLINICAL LABORATORY DIRECTOR Pulse 100 07/23/2024 10:51 AM CLINICAL LABORATORY DIRECTOR Temperature 36.4 C (97.6 F) 07/23/2024 10:51 AM CLINICAL LABORATORY DIRECTOR Respiratory Rate 16 07/23/2024 10:51 AM CLINICAL LABORATORY DIRECTOR Oxygen Saturation 99% 07/23/2024 10:51 AM CLINICAL LABORATORY DIRECTOR Inhaled Oxygen Concentration - - Weight 86.2 kg (190 lb) 07/23/2024 10:51 AM CLINICAL LABORATORY DIRECTOR Height 182.9 cm (6') 07/23/2024 10:51 AM CLINICAL LABORATORY DIRECTOR Body Mass Index 25.77 07/23/2024 10:51 AM CLINICAL LABORATORY DIRECTOR Plan of Treatment Not on file Medical Devices Implanted Type Area Collar Folder Operator Device Identifier Shelf Expiration Date Model / Serial / Lot [employer] 8.5 Fr Nasal Biliary Catheter [id number] - [id number] Implanted:Qty: 1 on 01/26/2022 by Kenneth Loya MD at [facility] Catheter [employer] 06/22/2024 [id number] / / [id number] [employer] 10fr 5cm Biliary Double Pigtail Stent [id number] - [id number] Implanted:Qty: 1 on 09/21/2023 by Kenneth Loya MD at [facility] Stent N/A: Bile Duct [employer] 08/14/2025 [id number] / / [id number] [employer] 10fr 5cm Biliary Stent [id number] - [id number] Implanted:Qty: 1 on 09/21/2023 by Kenneth Loya MD at [facility] Stent N/A: Bile Duct [employer] 07/03/2025 [id number] / / [id number] [employer] 10fr 5cm Biliary Double Pigtail Stent [id number] - [id number] Implanted:Qty: 1 on 09/21/2023 by Kenneth Loya MD at [facility] Stent N/A: Bile Duct [employer] 08/23/2025 [id number] / / [id number] [employer] 10fr 5cm Biliary Double Pigtail Stent [id number] - [id number] Implanted:Qty: 1 on 09/21/2023 by Kenneth Loya MD at [facility] Stent N/A: Bile Duct [employer] 08/23/2025 [id number] / / [id number] [employer] 10fr 5cm Biliary Double Pigtail Stent [id number] - [id number] Implanted:Qty: 1 on 09/21/2023 by Kenneth Loya MD at [facility] Stent N/A: Bile Duct [employer] 08/14/2025 [id number] / / [id number] [employer] 10fr 7cm Biliary Stent [id number] - [id number] Implanted:Qty: 1 on 04/10/2023 by John De Anda MD at [facility] [employer] [id number] 12/13/2024 [id number] / / [id number] [employer] 10fr 7cm Biliary Stent [id number] - [id number] Implanted:Qty: 1 on 04/10/2023 by John De Anda MD at [facility] [employer] [id number] 02/07/2025 [id number] / / [id number] Explanted Type Area Collar Folder Operator Device Identifier Shelf Expiration Date Model / Serial / Lot [employer] [id number] Cotton-Young 10fr 7cm Taper Tip Guidewire Proximal Distal Flap - [id number] Implanted:Qty: 1 on 08/04/2021 by Kenneth Loya MD at [facility] Explanted:Qty: 1 on 08/30/2021 at [facility] Stent N/A: Bile Duct [employer] 01/28/2024 [id number] / / [id number] [employer] 10 X 10 Stent Delivery System [id number] - [id number] Implanted:Qty: 1 on 08/04/2021 by Kenneth Loya MD at [facility] Explanted:Qty: 1 on 08/30/2021 at [facility] Stent N/A: Bile Duct [employer] 10/13/2022 [id number] / / [id number] [employer] Geenen 7fr 7cm Positioning Sleeve Push Catheter Guidewire [id number] - [id number] Implanted:Qty: 1 on 08/30/2021 at [facility] Explanted:Qty: 1 on 11/01/2021 by Kenneth Loya MD at [facility] Stent N/A: Pancreas [employer] 11/06/2023 [id number] / / [id number] [employer] 10fr 5cm Biliary Stent [id number] - [id number] Implanted:Qty: 1 on 01/26/2022 by Kenneth Loya MD at [facility] Explanted:Qty: 1 on 04/06/2022 by Kenneth Loya MD at [facility] Stent [employer] 11/16/2023 [id number] / / [id number] [employer] Advanix Naviflex 7fr 9cm Radiopaque [place] Endo Marker Color Coded [id number] - [id number] Implanted:Qty: 1 on 01/26/2022 by Kenneth Loya MD at [facility] Explanted:Qty: 1 on 04/06/2022 at [facility] Stent [employer] [employer] 04/16/2023 [id number] / / [id number] [employer] Advanix 8.5fr 7cm Rapid Exchange Temporary [place] Stent [id number] - [id number] Implanted:Qty: 1 on 04/06/2022 by Kenneth Loya MD at [facility] Explanted:Qty: 1 on 07/06/2022 by Kenneth Loya MD at [facility] Stent N/A: Pancreas [employer] 10/26/2023 [id number] / / [id number] [employer] Advanix 8.5fr 7cm Rapid Exchange Temporary [place] Stent [id number] - [id number] Implanted:Qty: 1 on 04/06/2022 by Kenneth Loya MD at [facility] Explanted:Qty: 1 on 07/06/2022 by Kenneth Loya MD at [facility] Stent N/A: Pancreas [employer] 10/26/2023 [id number] / / [id number] [employer] 10fr 5cm Biliary Stent [id number] - [id number] Implanted:Qty: 1 on 09/08/2022 by Kenneth Loya MD at [facility] Explanted:Qty: 1 on 11/03/2022 by Kenneth Loya MD at [facility] Stent N/A: Bile Duct [employer] 08/07/2024 [id number] / / [id number] [employer] 10fr 5cm Biliary Stent [id number] - [id number] Implanted:Qty: 1 on 09/08/2022 by Kenneth Loya MD at [facility] Explanted:Qty: 1 on 11/03/2022 by Kenneth Loya MD at [facility] Stent N/A: Bile Duct [employer] 05/04/2024 [id number] / / [id number] [employer] Flexi-Stent 7fr 7cm Small Pigtail Flexible .035in Stent 6574 - [id number] Implanted:Qty: 1 on 09/08/2022 by Kenneth Loya MD at [facility] Explanted:Qty: 1 on 11/03/2022 by Kenneth Loya MD at [facility] Stent N/A: Bile Duct [employer] 05/28/2027 [id number] / / [id number] [employer] Geenen 8.5fr 9cm Drain Obstructed Positioning Sleeve Pushing [id number] - [id number] Implanted:Qty: 1 on 04/06/2022 by Kenneth Loya MD at [facility] Explanted:Qty: 1 on 01/05/2023 by Kenneth Loya MD at [facility] Stent N/A: Pancreas [employer] 05/03/2024 [id number] / / [id number] [employer] Flexi-Stent 7fr 7cm Small Pigtail Flexible .035in Stent 6574 - [id number] Implanted:Qty: 1 on 11/03/2022 by Kenneth Loya MD at [facility] Explanted:Qty: 1 on 01/05/2023 by Kenneth Loya MD at [facility] Stent N/A: Pancreas [employer] 05/28/2027 6574 / / [id number] [employer] 10fr 5cm Biliary Stent [id number] - [id number] Implanted:Qty: 1 on 11/03/2022 by Kenneth Loya MD at [facility] Explanted:Qty: 1 on 01/05/2023 at [facility] Stent N/A: Bile Duct [employer] 08/15/2024 [id number] / / [id number] [employer] Cotton-Young 10fr 5cm Taper Tip Soft Proximal Distal Flap Gentle [id number] - [id number] Implanted:Qty: 1 on 11/03/2022 by Kenneth Loya MD at [facility] Explanted:Qty: 1 on 01/05/2023 by Kenneth Loya MD at [facility] Stent N/A: Bile Duct [employer] 08/10/2025 [id number] / / [id number] [employer] [facility] Cartwright Flexi-Stent 4fr 7cm Small Pigtail Flexible .025in Stent 6544 - [id number] Implanted:Qty: 1 on 01/05/2023 by Kenneth Loya MD at [facility] Explanted:Qty: 1 on 06/02/2023 at [facility] Stent N/A: Pancreas [employer] 07/27/2027 [id number] / / [id number] Description:Not present on t his procedure [employer] 10fr 7cm Biliary Stent [id number] - [id number] Implanted:Qty: 1 on 01/05/2023 by Kenneth Loya MD at [facility] Explanted:Qty: 1 on 06/02/2023 by Jero Soto MD at [facility] Stent N/A: Bile Duct [employer] 12/13/2024 [id number] / / [id number] [employer] 10fr 7cm Biliary Stent [id number] - [id number] Implanted:Qty: 1 on 01/05/2023 by Kenneth Loya MD at [facility] Explanted:Qty: 1 on 06/02/2023 by Jero Soto MD at [facility] Stent N/A: Bile Duct [employer] 12/13/2024 [id number] / / [id number] [employer] 10fr 5cm Biliary Double Pigtail Stent [id number] - [id number] Implanted:Qty: 1 on 06/02/2023 by Kenneth Loya MD at [facility] Explanted:Qty: 1 on 09/21/2023 by Kenneth Loya MD at [facility] Stent N/A: Bile Duct [employer] 04/30/2025 [id number] / / [id number] [employer] 10fr 5cm Biliary Double Pigtail Stent [id number] - [id number] Implanted:Qty: 1 on 06/02/2023 by Kenneth Loya MD at [facility] Explanted:Qty: 1 on 09/21/2023 by Kenneth Loya MD at [facility] Stent N/A: Bile Duct [employer] 04/30/2025 [id number] / / [id number] [employer] 10fr 5cm Biliary Stent [id number] - [id number] Implanted:Qty: 1 on 06/02/2023 by Kenneth Loya MD at [facility] Explanted:Qty: 1 on 09/21/2023 by Kenneth Loya MD at [facility] Stent N/A: Bile Duct [employer] 02/28/2025 [id number] / / [id number] [employer] 10fr 5cm Biliary Double Pigtail Stent [id number] - [id number] Implanted:Qty: 1 on 06/02/2023 by Kenneth Loya MD at [facility] Explanted:Qty: 1 on 09/21/2023 by Kenneth Loya MD at [facility] Stent N/A: Bile Duct [employer] 04/30/2025 [id number] / / [id number] [employer] [id number] Advanix 10fr 5cm Rapid Exchange Temporary [place] Stent - [id number] Implanted:Qty: 1 on 06/18/2021 by Kenneth Loya MD at [facility] Explanted:Qty: 1 on 08/30/2021 at [facility] [employer] 06/30/2022 [id number] / / [id number] Description:Removed prior [employer] Advanix Od10 Fr L7 Cm 1; Temporary Duodenal Bend Stent Biliary Pl [id number] - [id number] Implanted:Qty: 1 on 08/30/2021 at [facility] Explanted:Qty: 1 on 11/01/2021 by Kenneth Loya MD at [facility] N/A: Bile Duct [employer] 06/25/2022 [id number] / / [id number] [employer] Advanix Naviflex 10fr 9cm Lead Joana Radiopaque Flexible [id number] - [id number] Implanted:Qty: 1 on 11/01/2021 by Kenneth Loya MD at [facility] Explanted:Qty: 1 on 01/05/2022 by Contreras Girard MD at [facility] N/A: Pancreas [employer] 07/18/2022 [id number] / / [id number] 10fr 5cm Biliary Stent [id number] - [id number] Implanted:Qty: 1 on 11/01/2021 by Kenneth Loya MD at [facility] Explanted:Qty: 1 on 01/05/2022 at [facility] N/A: Bile Duct [employer] 08/12/2023 [id number] / / [id number] 10fr 7cm Biliary Stent [id number] - [id number] Implanted:Qty: 1 on 11/01/2021 by Kenneth Loya MD at [facility] Explanted:Qty: 1 on 01/05/2022 by Contreras Girard MD at [facility] N/A: Bile Duct [employer] 08/23/2023 [id number] / / [id number] [employer] Cotton-Young 10fr 5cm Taper Tip Soft Proximal Distal Flap Gentle [id number] - [id number] Implanted:Qty: 1 on 01/05/2022 by Contreras Girard MD at [facility] Explanted:Qty: 1 on 01/26/2022 at [facility] N/A: Bile Duct [employer] 05/07/2022 [id number] / / [id number] [employer] Advanix 7fr 7cm Lead Joana Radiopaque Hammond Endo Marker Drainage [id number] - [id number] Implanted:Qty: 1 on 07/06/2022 by Kenneth Loya MD at [facility] Explanted:Qty: 1 on 09/08/2022 by Kenneth Loya MD at [facility] N/A: Pancreas [employer] 05/03/2023 [id number] / / [id number] [employer] 10fr 5cm Biliary Stent [id number] - [id number] Implanted:Qty: 1 on 07/06/2022 by Kenneth Loya MD at [facility] Explanted:Qty: 1 on 09/08/2022 by Kenneth Loya MD at [facility] N/A: Bile Duct [employer] 12/24/2022 [id number] / / [id number] [employer] 10fr 5cm Biliary Stent [id number] - [id number] Implanted:Qty: 1 on 07/06/2022 by Kenneth Loya MD at [facility] Explanted:Qty: 1 on 09/08/2022 by Kenneth Loya MD at [facility] N/A: Bile Duct [employer] 11/16/2023 [id number] / / [id number] [employer] 10fr 7cm Biliary Stent [id number] - [id number] Explanted:Qty: 1 on 04/10/2023 by John De Anda MD at [facility] [employer] [id number] 12/13/2024 [id number] / / [id number] Description:Unable to place despite multiple attempts Procedures Procedure Name Priority Date/Time Associated Diagnosis Comments EGFR STAT 07/23/2024 11:01 AM CLINICAL LABORATORY DIRECTOR DIFFERENTIAL AUTO STAT 07/23/2024 11: 01 AM CLINICAL LABORATORY DIRECTOR ETHANOL STAT 07/23/2024 11:01 AM CLINICAL LABORATORY DIRECTOR CBC WITH AUTO DIFFERENTIAL STAT 07/23/2024 11:01 AM CLINICAL LABORATORY DIRECTOR COMPREHENSIVE METABOLIC PANEL STAT 07/23/2024 11:01 AM CLINICAL LABORATORY DIRECTOR from Last 3 Months Results * eGFR (07/23/2024 11:01 AM CLINICAL LABORATORY DIRECTOR) eGFR >90 >=60 mL/min/1. 73 m2 Comment: [...] reviewed 2021. Blood 07/23/2024 11:0 1 AM CLINICAL LABORATORY DIRECTOR 07/23/2024 11:03 AM CLINICAL LABORATORY DIRECTOR us Jonny Parada MD LAB BLOOD ORDERABLES Final Res ult [facility] ([place]) 1 [facility] Department [place] [address] * Differential, auto (07/23/2024 11:01 AM CLINICAL LABORATORY DIRECTOR) Neutrophil abs 1.7 1.5 - 6.5 K/cumm [...] on 2017. Blood 07/23/2024 11:0 1 AM CLINICAL LABORATORY DIRECTOR 07/23/2024 11:03 AM CLINICAL LABORATORY DIRECTOR us Jonny Parada MD LAB BLOOD ORDERABLES Final Res ult [facility] ([place]) 1 [facility] Department [place] [address] * (ABNORMAL) CBC with auto differential (07/23/2024 11:01 AM CLINICAL LABORATORY DIRECTOR) WBC 3.9 3.8 - 9.9 K/cumm Hgb [...] [facility] ([place]) Blood 07/23/2024 11:0 1 AM CLINICAL LABORATORY DIRECTOR 07/23/2024 11:03 AM CLINICAL LABORATORY DIRECTOR Jonny Parada MD LAB BLOOD ORDERABLES Final Res ult [facility] ([place]) 1 [facility] [place] [address] * (ABNORMAL) Ethanol (07/23/2024 11:01 AM CLINICAL LABORATORY DIRECTOR) Ethanol 314(C) <=10 mg/dL Comment: Critical Result called by [email or web address] at 2024-07-23 11:26:12. Result Read Back by Marine Quan ED Interpretive Data Legal limit of intoxication > or = 80 mg/dL Levels > or = 400 mg/dL are potentially TOXIC. Current interpretive data was last revised on 2018. Blood 07/23/2024 11:0 1 AM CLINICAL LABORATORY DIRECTOR 07/23/2024 11:03 AM CLINICAL LABORATORY DIRECTOR Jonny Parada MD LAB BLOOD ORDERABLES Final Res ult [facility] ([place]) 1 [facility] [place] [address] * (ABNORMAL) Comprehensive metabolic panel (07/23/2024 11:01 AM CLINICAL LABORATORY DIRECTOR) Sodium 144 135 - 145 mmol/L Potassium, pl 3.5 3.3 - 4.9 mmol/L [facility] ([place]) Chloride 105 97 - 110 mmol/L [facility] ([place]) CO2 23 22 - 32 mmol/L [facility] ([place]) Anion gap 16(H) 2 - 15 mmol/L [facility] ([place]) BUN 5(L) 6 - 25 mg/dL [facility] ([place]) Creatinine 0.64(L) 0.80 - 1.30 mg/dL [facility] ([place]) Glucose 133 70 - 199 mg/dL [facility] ([place]) Comment: Interpretive Data Fasting glucose >/= [...] [facility] ([place]) Blood 07/23/2024 11:0 1 AM CLINICAL LABORATORY DIRECTOR 07/23/2024 11:03 AM CLINICAL LABORATORY DIRECTOR Jonny Parada MD LAB BLOOD ORDERABLES Final Res ult [facility] ([place]) 1 [facility] Department [place] [address] from Last 3 Months Insurance [facility]IC[facility] SOL[employer] [employer] Advance Directives For more information, please contact: [phone] * Full Code (Latest Code Status on [...] 7:36 AM 06/02/2023 3:26 PM Care Teams Paper Tube Machine Operator Relationship Specialty Start Date End Date Don Walton PA [address] [address] PCP - General Physician Loans Officer 12/28/21
--- OUTSIDE RECORDS SUMMARY | 2024-07-31 18:33 | XMS_ITS | Encounter Summary ---
Author Organization [facility] Healthcare Address [address] [place] [address] Care Team Providers Care Manager Flight Name Role Phone Don Walton Primary Care Provider Encounter Details Date Type Department Care Team (Late st Contact Info) Description 01/25/2022 Orders Only [facility] [address] [place] [id number] Jordana Chambers MD [address] [place] [id number] Social History Tobacco Use Types Packs/Day Years [...] often do you attend chur ch or jain services? 1 to 4 times per year 01/27/2022 Do you belong to any clubs o r organizations such as cheondoism groups, unions, fraternal or athletic groups, or [...] place to sleep or slept in a fdc (including now)? No 01/27/2022 Sex and Gender Information Value Date Recorded Sex Assigned at Not on file Legal Sex Male 1:58 AM RIM TURNING FINISHER Gender Identity Not on file Sexual Orientation [...] COVID: Suspected 06/06/2023 06/06/2023 06/06/2023 9:39 PM RIM TURNING FINISHER documented as of this encounter Care Teams Manager Flight Relationship Specialty Start Date End Date Don Walton PA [address] [facility] [address] [facility] [address] [place] [address] PCP - General Physician Feather Curling Machine Operator 12/28/21 documented as of this encounter
--- OUTSIDE RECORDS SUMMARY | 2024-07-31 18:33 | XMS_ITS | Clinical Summary ---
Author Organization [facility] Address [address], [facility] [address] [place] [address] Phone Care Team Providers Care Backend Python Developer Name Role Phone Lamberto Barker Nasra RUCKER Primary Care Provider [phone] Social History Tobacco Use Types Packs/Day Years Used Date Smoking Tobacco: Never Assessed Sex and Gender Information Value Date Recorded Sex Assigned at Not on file Legal Sex Male 8:46 AM CDT Gender Identity Not on file Sexual Orientation Not on file Plan of Treatment Not on file Insurance [facility] MEDICARE C [employer] Care Teams Backend Python Developer Relationship Specialty Start Date End Date Lamberto Barker DO [address] [place] [address] PCP - General Internal Medicine 09/18/19
--- NOTE | 2024-07-31 18:52 | PC.NURSE ---
asked pt if he could prove a urine sample, pt states I'll probably need a whole bag of fluids before I can do that . left urinal at bedside and informed pt to use it if he has to urinate and press his call light if he does. Mady HUNTER aware.
[2024-07-31 19:09] LABS: Basophils Percent Auto 0.2 % (0.2-1.2); Eosinophils Absolute Auto 0.1 K/mm3 (0-0.3); Eosinophils Percent Auto 0.5 % (0-4.4); Hematocrit 40.6 % (42.0-52.0); Hemoglobin 13.4 g/dL (14.0-18.0); Immature Granulocyte Absolute 0.09 K/mm3 (0.00-0.031); Immature Granulocyte Percent A 0.6 % (0-0.5); Lymphocytes Percent Auto 6.4 % (18.3-44.2); Mean Corpuscular Hemoglobin 30.6 pg (26-34); Mean Corpuscular Volume 92.7 fl (80-100); Mean Platelet Volume 10.5 fl (7.4-10.4); Monocytes Absolute Auto 0.4 K/mm3 (0.1-0.6); Monocytes Percent Auto 3.1 % (2.6-8.5); Neutrophils Absolute Auto 12.5 K/mm3 (1.3-6.7); Neutrophils Percent Auto 89.2 % (45.5-73.1); Platelet Count Result 221 k/mm3 (150-375); Red Blood Count 4.38 M/mm3 (4.6-6.20)
[2024-07-31 19:19] LABS: Alanine Aminotransferase 71 U/L (6-50); Albumin Level 3.8 g/dL (3.5-5.1); Alkaline Phosphatase 302 U/L (38-126); Anion Gap 8 mmol/L (4-12); Aspartate Amino Transferase 71 U/L (17-59); Bilirubin,Total 0.7 mg/dL (0.2-1.3); Blood Urea Nitrogen 14 mg/dL (9-20); Calcium 9.6 mg/dL (8.4-10.2); Carbon Dioxide 28 mmol/L (22-30); Chloride 98 mmol/L (98-107); Estimated CRCL calculation 92 ml/min; Estimated Glomerular Filt Rate > 60; Glucose 135 mg/dL (65-110); Sodium 134 mmol/L (137-145)
[2024-07-31 19:25] LABS: Ethanol < 10 mg/dL (<10)
--- NOTE | 2024-07-31 19:26 | ED.ABDPAIN ---
HPI - Abdominal Pain General Chief Complaint: Abdominal Pain Stated Complaint: abd pain Time Seen by Provider: 07/31/24 18:26 Source: patient Mode of arrival: ambulatory Limitations: no limitations History of Present Illness HPI narrative: This is a 58 year old male that presents to the ER for abdominal pain. Ongoing since this morning. Reports nausea, vomiting, pain radiating to the back. Reports history of alcohol abuse and pancreatitis. Related Data Home Medications ?Medication ?Instructions ?Recorded ?Confirmed ?Last Taken ?Type uhxlzwjx-lqbj-zkqsk acid 400 1 tablet PO DAILY 02/03/21 06/23/24 11/18/21 History mcg-lycopene 600 mcg-ginkgo 120 mg tablet lidocaine 5 % topical patch 1 patch topical DAILY 06/01/22 06/23/24 Unknown History melatonin 10 mg capsule 10 mg PO QHS 06/01/22 06/23/24 Unknown History potassium gluconate 595 mg (99 mg) 595 mg PO DAILY 04/25/23 06/23/24 Unknown History tablet psyllium husk 0.4 gram capsule 0.4 g PO DAILY 04/25/23 06/23/24 Unknown History (Metamucil) losartan 25 mg tablet 25 mg PO DAILY 06/28/23 06/23/24 Unknown History Allergies Allergy/AdvReac Type Severity Reaction Status Date / Time amoxicillin Allergy Intermediate rash Verified 07/31/24 18:17 Penicillins Allergy Intermediate Pruritic Verified 07/31/24 18:17 rash Review of Systems Review of Systems: CONSTITUTIONAL: Denies fever GASTROINTESTINAL: Reports abdominal pain, nausea, vomiting All systems reviewed & are unremarkable except as noted in HPI and below PMFSH Past Medical History Medical History (Updated 07/31/24 @ 23:36 by Lolis Soto PA-C) Peptic ulcer Gastroesophageal reflux disease Tobacco dependence Necrotizing pancreatitis Elevated PSA Memory loss Gastritis and duodenitis Essential hypertension Alcoholism Fracture of vertebra due to osteoporosis with routine healing Generalized osteoarthritis of multiple sites Inflammatory arthritis (08/2019) Angioedema (08/2019) Acute pulmonary embolism (08/2019) Pancreatitis Hypercholesteremia Surgical History Surgical History History of appendectomy Family History Family History Mother Hypertension Sibling Patient's brother is in good health Father Family history of pancreatic cancer Social History Social History Smoking packs per day: 1.5 Smoking cigarettes per day: 30.0 Years smoked: 35 Smoking pack-years: 52.50 Smoking status: Current every day smoker Tobacco type: cigarettes Second hand tobacco smoke exposure: No Alcohol intake: current Drinks per week: 50 Alcohol use details: SHOT Substance use: current Substance use type: marijuana Other substance usage details: MEDICAL CARD-DAILY FOR BACK PAIN Do You Feel Safe in your Home?: Yes Lack of Transportation: No Lack of Food: Never True Current Housing: I Do Not Have Housing Concerned About Future Housing: No Difficulty Paying Gas/Electric Bills: No Difficulty Paying for Meds: No Currently Unemployed: No Education: Don't Know Difficulty w/ Childcare or Family Care: No Living arrangements: with family Occupation/Education: retired Additional occupation/education comments: chronic pancreatitis Gender identity (if verbalized by the patient): Male Spiritual care concerns: No Exam Narrative: GENERAL: Well-appearing, well-nourished, and in no acute distress. HEAD: Normocephalic, atraumatic. EYES: EOMI. ENT: Nares clear, no rhinorrhea or epistaxis. Mucous membranes moist. Oropharynx without tonsillar hypertrophy exudate or other lesions. CHEST: Clear to auscultation. No respiratory distress. No wheezes rales or rhonchi HEART: Regular rate and rhythm. No murmur heard. Normal peripheral pulses. ABDOMEN: Soft, nondistended, normal active bowel sounds. Tender to palpation in the epigastrium, without guarding EXTREMITIES: Normal range of motion. No edema. SKIN: Warm, dry, no rash. NEURO: No focal deficits. Alert and oriented x3. PSYCH: Normal mood and affect Course Course Emergency Course: patient updated on his workup and agrees with plan of care Consultations Consultation #1: spoke with hospitalist about patient and workup who accepts admission Date: 07/31/24 Vital Signs Vital signs: Vital Signs Temperature 97.5 F L 07/31/24 17:49 Pulse Rate 108 H 07/31/24 17:49 Respiratory Rate 18 07/31/24 17:49 Blood Pressure 148/86 H 07/31/24 17:49 Pulse Oximetry 100 07/31/24 17:49 Temperature 97.5 F L 07/31/24 17:49 Pulse Rate 99 07/31/24 22:00 Respiratory Rate 16 07/31/24 22:00 Blood Pressure 113/81 07/31/24 22:46 Pulse Oximetry 100 07/31/24 22:46 MDM - Abdominal Pain MDM Narrative Medical decision making narrative: Patient presents the emergency department for epigastric abdominal pain. History of alcohol abuse and pancreatitis. He is afebrile and nontoxic appearing. Tachycardic upon arrival, this is IV fluids. CBC with leukocytosis to 14. Metabolic panel with mild transaminitis. Lipase is 2716. Urine without evidence of infection. CT abdomen and pelvis shows acute on chronic pancreatitis. patient updated on his workup and agrees with plan of care. spoke with hospitalist about patient and workup who accepts admission Differential Diagnosis Differential diagnosis: Likely calculus of kidney, gastroenteritis, pancreatitis and other (biliary colic) Lab Data Attestation: I reviewed the patient's lab results. 07/31/24 18:44 07/31/24 18:44 Labs: Lab Results 07/31/24 07/31/24 07/31/24 Range/Units 18:44 18:49 22:01 WBC 14.0 H (4.5-10.0) K/mm3 RBC 4.38 L (4.6-6.20) M/mm3 Hgb 13.4 L (14.0-18.0) g/dL Hct 40.6 L (42.0-52.0) % MCV 92.7 (80-100) fl MCH 30.6 (26-34) pg MCHC 33.0 (32-36) g/dl RDW 17.0 H (11.5-14.5) % Plt Count 221 (150-375) k/mm3 MPV 10.5 H (7.4-10.4) fl Immature Gran % (Auto) 0.6 H (0-0.5) % Neut % (Auto) 89.2 H (45.5-73.1) % Lymph % (Auto) 6.4 L (18.3-44.2) % [place] % (Auto) 3.1 (2.6-8.5) % Eos % (Auto) 0.5 (0-4.4) % Baso % (Auto) 0.2 (0.2-1.2) % Lymph # (Auto) 0.90 (0.9-3.2) K/mm3 [place] # (Auto) 0.4 (0.1-0.6) K/mm3 Eos # (Auto) 0.1 (0-0.3) K/mm3 Baso # (Auto) 0.0 (0.0-0.1) K/mm3 Abs Immat Gran (auto) 0.09 H (0.00-0.031) K/mm3 Absolute Neuts (auto) 12.5 H (1.3-6.7) K/mm3 Absolute Nucleated RBC 0.000 (0.0-0.012) K/mm3 Nucleated RBC % 0.0 (0.0-0.2) % PT 11.2 (11.1-14.7) Seconds INR 0.8 APTT 25.3 (22.3-36.8) Seconds Sodium 134 L (137-145) mmol/L Potassium 4.0 (3.4-5.0) mmol/L Chloride 98 (98-107) mmol/L Carbon Dioxide 28 (22-30) mmol/L Anion Gap 8 (4-12) mmol/L BUN 14 D (9-20) mg/dL Creatinine 0.72 (0.7-1.3) mg/dL Estim Creat Clear Calc 92 ml/min Estimated GFR > 60 (59 - ) Glucose 135 H (65-110) mg/dL Calcium 9.6 (8.4-10.2) mg/dL Total Bilirubin 0.7 (0.2-1.3) mg/dL AST 71 H (17-59) U/L ALT 71 H (6-50) U/L Alkaline Phosphatase 302 H (38-126) U/L Total Protein 7.0 (6.3-8.2) g/dL Albumin 3.8 (3.5-5.1) g/dL Lipase 2716 H (23-300) U/L Urine Color Yellow (Yellow) Urine Appearance Clear (Clear) Urine pH 7.5 (5.0-9.0) Ur Specific [place] > 1.045 H (1.001-1.035) Urine Protein Negative (Negative) mg/dL Urine Glucose (UA) Negative (Negative) mg/dL Urine Ketones Negative (Negative) mg/dL Ur Blood (Man) Negative (Negative) Urine Nitrate Negative (Negative) Urine Bilirubin Negative (Negative) Urine Urobilinogen 1.0 (<2.0) mg/dL Leukocyte Esterase Rfl Negative (Negative) KRISTOFER/UL Ethyl Alcohol < 10 (<10) mg/dL Imaging Data Radiologist's impression: ITS Impressions Abdomen/Pelvis CT 07/31/24 20:03 IMPRESSION: Acute on chronic pancreatitis, as detailed above. Critical Care Time Critical Care Time Critical Care Time: No Discharge Plan Discharge Clinical Impression: Pancreatitis Qualifiers: Chronicity: acute Pancreatitis type: unspecified pancreatitis type Acute pancreatitis complication: no infection or necrosis Qualified Code(s): K85.90 - Acute pancreatitis without necrosis or infection, unspecified Patient Disposition: Still a Patient Condition: Stable Instructions: Antibiotic Form Patient Language: Nigerian Prescriptions: No Action fluticasone propionate [Flonase Allergy Relief] 50 mcg/actuation spray,suspension 2 spray intranasal DAILY Qty: 16 0RF Rx Instructions: administer into each nostril fenofibrate 160 mg tablet 160 mg PO DAILY Qty: 90 1RF folic acid 1 mg tablet See Rx Instructions .ROUTE .COMPLEX Qty: 90 1RF Dose Instruction: TAKE 1 TABLET BY MOUTH DAILY Rx Instructions: TAKE 1 TABLET BY MOUTH DAILY pantoprazole 40 mg tablet,delayed release (DR/EC) See Rx Instructions .ROUTE .COMPLEX Qty: 90 1RF Dose Instruction: TAKE 1 TABLET BY MOUTH EVERY MORNING Rx Instructions: TAKE 1 TABLET BY MOUTH EVERY MORNING meloxicam 7.5 mg tablet 7.5 mg PO BID PRN (Reason: joint pain) Qty: 60 5RF duloxetine [Cymbalta] 30 mg capsule,delayed release(DR/EC) 90 mg PO .COMPLEX Qty: 90 5RF Rx Instructions: 90 mg orally Take 2 capsules in AM and then 1 capsule in the evening.; melatonin 10 mg capsule 10 mg PO QHS lidocaine 5 % adhesive patch,medicated 1 patch topical DAILY Patient Comments: On right shoulder psyllium husk [Metamucil] 0.4 gram capsule 0.4 g PO DAILY potassium gluconate 595 mg (99 mg) tablet 595 mg PO DAILY ondansetron 4 mg tablet,disintegrating 4 mg PO Q8H PRN (Reason: nausea and vomiting) Qty: 30 0RF losartan 25 mg tablet 25 mg PO DAILY tobramycin 0.3 % drops 1 drp LEFT EYE Q4H Qty: 5 0RF ondansetron 4 mg tablet,disintegrating 4 mg PO Q8H PRN (Reason: nausea and vomiting) Qty: 15 0RF chlordiazepoxide HCl 25 mg capsule 25 mg PO TID PRN (Reason: alcohol withdrawal) Qty: 15 0RF oy-legx-zhlcj-lycopene-ginkgo 400-600-120 mcg-mcg-mg Tablet 1 tablet PO DAILY sildenafil 100 mg tablet 100 mg PO DAILY PRN (Reason: sexual activity) Qty: 8 3RF Rx Instructions: administer 30 minutes to 4 hours before activity Creon 12,000-38,000 -60,000 unit capsule,delayed release(DR/EC) 1 cap PO TID Qty: 90 5RF Rx Instructions: administer with meals and/or snacks tadalafil 20 mg tablet See Rx Instructions .ROUTE .COMPLEX Qty: 8 4RF Dose Instruction: TAKE 1 TABLET BY MOUTH DAILY SEXUAL ACTIVITY AND 30 MINUTES BEFORE SEXUAL ACTIVITY NEEDED. DO NOT USE MORE THAN 1 DOSE PER 24 HOURS Rx Instructions: TAKE 1 TABLET BY MOUTH DAILY SEXUAL ACTIVITY AND 30 MINUTES BEFORE SEXUAL ACTIVITY NEEDED. DO NOT USE MORE THAN 1 DOSE PER 24 HOURS gabapentin 300 mg capsule 300 mg PO Q8H Qty: 270 1RF trazodone 50 mg tablet 100 mg PO .QHS PRN (Reason: insomnia) Qty: 180 1RF tizanidine 4 mg tablet See Rx Instructions .ROUTE .COMPLEX Qty: 60 2RF Dose Instruction: TAKE 1 TO 2 TABLETS BY MOUTH EVERY NIGHT AT BEDTIME NEEDED FOR MUSCLE SPASMS Rx Instructions: TAKE 1 TO 2 TABLETS BY MOUTH EVERY NIGHT AT BEDTIME NEEDED FOR MUSCLE SPASMS amlodipine 10 mg tablet 10 mg PO DAILY Qty: 90 1RF Follow-up/Referrals: Ronnell Escobar, [employer] [Primary Care Provider] -
[2024-07-31 19:29] LABS: Lipase 2716 U/L (23-300)
[2024-07-31 19:29] LABS: INR 0.8; Prothrombin Time 11.2 Seconds (11.1-14.7)
[2024-07-31 19:30] LABS: Partial Thromboplastin Time 25.3 Seconds (22.3-36.8)
[2024-07-31] MEDS: PANTOPRAZOLE SODIUM IV 40 MG VIAL IV PUSH (19:59)
[2024-07-31] MEDS: KETOROLAC 15 MG/ML VIAL (*BKC) IV PUSH (19:59)
[2024-07-31] MEDS: ONDANSETRON INJ 4 MG/2 ML VIAL IV PUSH (19:59)
--- NOTE | 2024-07-31 19:59 | PC.NURSE ---
As this rn is pushing Ketorolac pt verbalized ' that isnt going to do shit. The only thing that works for me is the one that starts with the José Manuel Suárez.
[2024-07-31] MEDS: SODIUM CHLORIDE 0.9% IV 1,000 ML 999 ML IV CONT ×2 (20:00→20:42)
[2024-07-31] MEDS: MORPHINE SULFATE (*CRX) 4 MG/ML INJ IV PUSH (20:42)
--- NOTE | 2024-07-31 20:45 | PC.NURSE ---
Pt continues to ask for the pain medication that starts with the D It is the only thing that works for me.
--- NOTE | 2024-07-31 21:11 | PC.NURSE ---
Elsa @ [place] [phone] with any update.
[2024-07-31] MEDS: diphenhydrAMINE HCl INJ 50 MG/ML VIAL 25 MG IV PUSH (21:29)
--- NOTE | 2024-07-31 21:29 | PC.NURSE ---
pt reporting infiltrated iv this rn to bedside and found 4 hives above iv area. EDP Charles to bedside and will plan to give benadryl and reglan.
[2024-07-31] MEDS: SODIUM CHLORIDE 0.9% IV 200 ML 100 ML (21:30)
[2024-07-31] MEDS: METOCLOPRAMIDE HCL INJ 10 MG/2 ML VIAL IV PUSH (21:30)
--- NOTE | 2024-07-31 21:33 | PC.NURSE ---
Pt again requesting Dilaudid morphine and that toradol didnt do shit for the pain. Dilaudid is the only thing that is going to work for me. EDP Notified again about pt specifically requesting Dilaudid.
--- NOTE | 2024-07-31 21:52 | PC.NURSE ---
pt currently sleeping in a ball on the bed. will hold medication currently.
[2024-07-31 22:08] LABS: Add Urine Microscopic? NO; Appearance Urine Clear (Clear); Bilirubin Urine Negative (Negative); Blood Urine Negative (Negative); Color Urine Yellow (Yellow); Glucose Urine UA Negative (Negative); Ketones Urine Negative (Negative); Leukocyte Esterase Ur Negative LEU/UL (Negative); Nitrate Urine Negative (Negative); Protein Urine Negative (Negative); Specific Grav Ur > 1.045 (1.001-1.035); pH Urine 7.5 (5.0-9.0)
--- NOTE | 2024-07-31 22:10 | PM.IMHP ---
H&P: HPI History of Present Illness Date/Time: 07/31/24 22:10 Chief Complaint: Abdominal pain. Narrative: This is a 58-year-old male smoker with history of alcohol abuse, chronic pancreatitis, and hypertension who presented to the emergency department from [facility] for evaluation. The patient provides the following history. He is currently at [facility] for detox and reports he has not had alcohol in the past 2 days in seems to be doing well in regards to that on scheduled Librium. This morning he developed severe, sharp and shooting upper abdominal pain radiating through to the back associated with nausea and nonbloody and nonbilious emesis. The symptoms are similar to those which he has experienced with prior pancreatitis. He denies fever, chest pain, shortness of breath, diarrhea, bloating, belching, melena, dysuria, hallucinations, and significant tremors. In the ED: Vital signs on arrival include a temperature of 97.5?, blood pressure 148/86, pulse 108, respiratory rate 18, SpO2 100% on room air. Labs are significant for WBC count of 14.0, hemoglobin 13.9, hematocrit 40.6%, total bilirubin 0.7, AST 71, ALT 71, alkaline phosphatase 302, lipase 2716. CT of the abdomen and pelvis shows acute on chronic pancreatitis and he is being admitted in this setting for further treatment. He was given hydromorphone, ketorolac, and ondansetron with some improvement. Review of Systems Review of Systems: 12 systems were reviewed and are negative except for as per HPI. [facility] Past Medical History Medical History Peptic ulcer Gastroesophageal reflux disease Tobacco dependence Necrotizing pancreatitis Elevated PSA Memory loss Gastritis and duodenitis Essential hypertension Alcoholism Fracture of vertebra due to osteoporosis with routine healing Generalized osteoarthritis of multiple sites Inflammatory arthritis (08/2019) Angioedema (08/2019) Acute pulmonary embolism (08/2019) Pancreatitis Hypercholesteremia Surgical History Surgical History History of appendectomy Family History Family History Mother Hypertension Sibling Patient's brother is in good health Father Family history of pancreatic cancer Social History Social History (Updated 08/01/24 @ 00:34 by Ani Rosario PA-C) Social History: Surrogate medical decision maker: Doris Norman, ex-. Code status: Full code. Smoking packs per day: 1.5 Smoking cigarettes per day: 30.0 Years smoked: 35 Smoking pack-years: 52.50 Smoking status: Current every day smoker Tobacco type: cigarettes Second hand tobacco smoke exposure: No Alcohol intake: current Drinks per week: 50 Alcohol use details: SHOT Substance use: current Substance use type: marijuana Other substance usage details: MEDICAL CARD-DAILY FOR BACK PAIN Do You Feel Safe in your Home?: Yes Lack of Transportation: No Lack of Food: Never True Current Housing: I Do Not Have Housing Concerned About Future Housing: No Difficulty Paying Gas/Electric Bills: No Difficulty Paying for Meds: No Currently Unemployed: No Education: Don't Know Difficulty w/ Childcare or Family Care: No Living arrangements: with family Occupation/Education: retired Spiritual care concerns: No Meds Home Medications and Allergies Home Medications ?Medication ?Instructions ?Recorded ?Confirmed ?Type juzhgyau-emgv-zqmhz acid 400 1 tablet PO DAILY 02/03/21 06/23/24 History mcg-lycopene 600 mcg-ginkgo 120 mg tablet fluticasone propionate 50 2 spray intranasal DAILY #16 grams 05/21/22 06/23/24 Rx mcg/actuation nasal spray,suspension (Flonase Allergy Relief) lidocaine 5 % topical patch 1 patch topical DAILY 06/01/22 06/23/24 History melatonin 10 mg capsule 10 mg PO QHS 06/01/22 06/23/24 History sildenafil 100 mg tablet 100 mg PO DAILY PRN sexual 12/12/22 06/23/24 Rx activity #8 tabs ondansetron 4 mg disintegrating 4 mg PO Q8H PRN nausea and 04/25/23 06/23/24 Rx tablet vomiting #30 tabs potassium gluconate 595 mg (99 mg) 595 mg PO DAILY 04/25/23 06/23/24 History tablet psyllium husk 0.4 gram capsule 0.4 g PO DAILY 04/25/23 06/23/24 History (Metamucil) losartan 25 mg tablet 25 mg PO DAILY 06/28/23 06/23/24 History iqkowz-hpgvzrff-gmliwge 1 cap PO TID #90 caps 07/13/23 06/23/24 Rx 12,000-38,000-60,000 unit capsule,delayed rel (Creon) tadalafil 20 mg tablet See Rx Instructions .Route 12/06/23 06/23/24 Rx .COMPLEX #8 tabs fenofibrate 160 mg tablet 160 mg PO DAILY #90 tabs 01/23/24 06/23/24 Rx folic acid 1 mg tablet See Rx Instructions .Route 01/23/24 06/23/24 Rx .COMPLEX #90 tabs pantoprazole 40 mg tablet,delayed See Rx Instructions .Route 01/23/24 06/23/24 Rx release .COMPLEX #90 tabs duloxetine 30 mg capsule,delayed 90 mg (3 x 30 mg) PO .COMPLEX #90 04/02/24 06/23/24 Rx release (Cymbalta) caps meloxicam 7.5 mg tablet 7.5 mg PO BID PRN joint pain #60 04/02/24 06/23/24 Rx tabs gabapentin 300 mg capsule 300 mg PO Q8H #270 caps 05/01/24 06/23/24 Rx trazodone 50 mg tablet 100 mg (2 x 50 mg) PO .QHS PRN 05/09/24 06/23/24 Rx insomnia #180 tabs tobramycin 0.3 % eye drops 1 drp LEFT EYE Q4H #5 mL 05/14/24 06/23/24 Rx tizanidine 4 mg tablet See Rx Instructions .Route 05/17/24 06/23/24 Rx .COMPLEX #60 tabs amlodipine 10 mg tablet 10 mg PO DAILY #90 tabs 06/17/24 06/23/24 Rx chlordiazepoxide HCl 25 mg capsule 25 mg PO TID PRN alcohol 06/21/24 06/23/24 Rx withdrawal #15 caps ondansetron 4 mg disintegrating 4 mg PO Q8H PRN nausea and 06/21/24 06/23/24 Rx tablet vomiting #15 tabs Allergies Allergy/AdvReac Type Severity Reaction Status Date / Time amoxicillin Allergy Intermediate rash Verified 07/31/24 18:17 Penicillins Allergy Intermediate Pruritic Verified 07/31/24 18:17 rash Vital Signs Vital Signs - 24 hr 07/31/24 17:49 07/31/24 18:29 Temperature 97.5 F L Pulse Rate 108 H 106 H Respiratory Rate 18 20 Blood Pressure 148/86 H 114/83 Pulse Oximetry 100 100 Exam Narrative: General: Moderately ill-appearing male in the semi-Teresa position in bed. He is in distress due to pain. Weight: 73 kg. BMI: 25.2. HEENT: Normocephalic, atraumatic. PERRL, EOMI. Sclera anicteric. Dry mucous membranes. Neck: Supple. Respiratory: Lungs are clear to auscultation bilaterally. Cardiovascular: Regular rate and rhythm with S1-S2. Gastrointestinal: Abdomen is soft and nondistended with positive bowel sounds. He is tender to palpation throughout the upper abdomen with voluntary guarding but no rebound tenderness. Skin: Warm and dry. Extremities: No cyanosis, clubbing, or edema. Radial and pedal pulses intact. Neurological: Alert. Cranial nerves 2-12 are grossly intact. Faint tremors of the hands. No gross focal deficits to casual conversation. Psychiatric: Cooperative with appropriate mood and flat affect. Slightly anxious. H&P: Results Labs Labs: Short CBC 07/31/24 Range/Units 18:44 WBC 14.0 H (4.5-10.0) K/mm3 Hgb 13.4 L (14.0-18.0) g/dL Hct 40.6 L (42.0-52.0) % Plt Count 221 (150-375) k/mm3 BMP 07/31/24 18:44 Sodium 134 L Potassium 4.0 Chloride 98 Carbon Dioxide 28 BUN 14 D Creatinine 0.72 Glucose 135 H Calcium 9.6 Liver Function 07/31/24 Range/Units 18:44 Total Bilirubin 0.7 (0.2-1.3) mg/dL AST 71 H (17-59) U/L ALT 71 H (6-50) U/L Alkaline Phosphatase 302 H (38-126) U/L Albumin 3.8 (3.5-5.1) g/dL Imaging Abdomen/Pelvis CT 07/31/24 20:03 IMPRESSION: Acute on chronic pancreatitis, as detailed above. Assessment and Plan Assessment and plan (1) Acute on chronic pancreatitis: Code(s): K85.90 - Acute pancreatitis without necrosis or infection, unspecified; K86.1 - Other chronic pancreatitis Status: Inactive (2) Alcohol withdrawal: Code(s): F10.939 - Alcohol use, unspecified with withdrawal, unspecified Status: Acute (3) Hypertension: Qualifiers: Hypertension type: primary hypertension Qualified Code(s): I10 - Essential (primary) hypertension Code(s): I10 - Essential (primary) hypertension Status: Acute (4) Tobacco dependence: Code(s): F17.200 - Nicotine dependence, unspecified, uncomplicated Status: Acute Plan The patient presented to the emergency department for evaluation of upper abdominal pain as detailed in HPI. His history and findings are consistent with acute on chronic pancreatitis. Continue supportive care including IV fluid rehydration at 1.5 mL/kg/hr and bowel rest. Antiemetics and analgesics are available as needed. Blood pressures have been running a bit high, likely due to pain, and will be monitored closely. He has not drink for 2 days and will be monitored closely for alcohol withdrawal. He has been started on scheduled Librium. Initiate CIWA protocol and start folic acid and thiamine supplementation. His home medications will be reviewed and resumed as appropriate. Findings and treatment plan were discussed with the patient. Questions were solicited and answered to satisfaction. The patient's medical management will be taken over by the hospitalist team in a.m. Quality VTE Prophylaxis VTE prophylaxis: pharmacologic ordered Hospitalist [facility] Advance Care Plan I have confirmed that the patient's Advanced Care Plan is present, code status is documented, or surrogate decision maker is listed in patient medical record.: Yes Medication Reconciliation I have utilized all available resources to obtain, update and review the patients current medications (includes all prescriptions, OTC, herbals, cannabis, and nutritional supplements).: Yes
[2024-07-31] MEDS: NICOTINE (*PBKC) 21 MG PATCH 1 PATCH TRANSDERM (22:57)
[2024-07-31] MEDS: chlordiazePOXIDE (*CRX) 25 MG CAPSULE PO (22:57)
[2024-07-31] MEDS: LACTATED RINGERS 1,000 ML 125 ML IV CONT (22:57)
[2024-07-31] MEDS: HYDROmorphone HCL INJ (*CRX) 1 MG/ML SYR 0.5 MG IV PUSH (22:58)
[2024-08-01] VITALS (13 sets, daily range): BP systolic 103–121; BP diastolic 63–82; PULSE 68–130; RESP 16–18; TEMP 36.4–36.8; O2SAT 97–99; BMI 22.7
--- NOTE | 2024-08-01 00:51 | ADMGEN ---
This patient, Garrison Norman, was admitted to Medical Room 340-01. Patient/family oriented to hospital policies and general routines including ID bracelet, bed and alarms, visiting hours, pain management, procedures, bathroom and other care routines, personal items, smoking policy, room service/diet, and visiting hours. Information on how to activate the Rapid Response Team has been discussed. Patient/Family are encouraged to report perceived risks to care and to ask questions if they do not understand what they are told or what they should do.
[2024-08-01] MEDS: LORazepam INJ (*CRX) 2 MG/ML VIAL IV PUSH (01:11)
[2024-08-01] MEDS: HYDROmorphone HCL INJ (*CRX) 1 MG/ML SYR IV PUSH ×3 (01:12→13:08)
[2024-08-01] MEDS: METOCLOPRAMIDE HCL INJ 10 MG/2 ML VIAL IV PUSH (05:16)
[2024-08-01] MEDS: chlordiazePOXIDE (*CRX) 25 MG CAPSULE PO ×3 (05:16→21:00)
[2024-08-01] MEDS: GABAPENTIN 300 MG CAPSULE PO ×3 (05:16→20:59)
[2024-08-01] MEDS: LACTATED RINGERS 1,000 ML 125 ML IV CONT ×3 (06:23→23:48)
[2024-08-01 07:09] LABS: Alanine Aminotransferase 64 U/L (6-50); Alkaline Phosphatase 213 U/L (38-126); Anion Gap 7 mmol/L (4-12); Aspartate Amino Transferase 81 U/L (17-59); Blood Urea Nitrogen 11 mg/dL (9-20); Calcium 8.4 mg/dL (8.4-10.2); Carbon Dioxide 20 mmol/L (22-30); Chloride 106 mmol/L (98-107); Estimated CRCL calculation 140 ml/min; Estimated Glomerular Filt Rate > 60; Glucose 104 mg/dL (65-110); Lipase 545 U/L (23-300); Magnesium 1.7 mg/dL (1.6-2.3); Potassium 3.8 mmol/L (3.4-5.0); Sodium 133 mmol/L (137-145); Triglycerides 53 mg/dL (<150)
[2024-08-01 07:13] LABS: Basophils Percent Auto 0.2 % (0.2-1.2); Eosinophils Percent Auto 0.4 % (0-4.4); Hematocrit 32.3 % (42.0-52.0); Hemoglobin 10.5 g/dL (14.0-18.0); Immature Granulocyte Absolute 0.05 K/mm3 (0.00-0.031); Immature Granulocyte Percent A 0.6 % (0-0.5); Lymphocytes Absolute Auto 0.99 K/mm3 (0.9-3.2); Lymphocytes Percent Auto 11.6 % (18.3-44.2); Mean Corpuscular HGB Conc 32.5 g/dl (32-36); Mean Corpuscular Hemoglobin 30.2 pg (26-34); Mean Corpuscular Volume 92.8 fl (80-100); Mean Platelet Volume 11.2 fl (7.4-10.4); Monocytes Absolute Auto 0.7 K/mm3 (0.1-0.6); Monocytes Percent Auto 7.9 % (2.6-8.5); Neutrophils Absolute Auto 6.8 K/mm3 (1.3-6.7); Neutrophils Percent Auto 79.3 % (45.5-73.1); Platelet Count Result 167 k/mm3 (150-375); Red Blood Count 3.48 M/mm3 (4.6-6.20); Red Cell Distribution Width 17.1 % (11.5-14.5); White Blood Count 8.5 K/mm3 (4.5-10.0)
--- NOTE | 2024-08-01 07:55 | P.PNIM_ITS ---
Progress Note: A&P Assessment and Plan (1) Acute on chronic pancreatitis: Code(s): K85.90 - Acute pancreatitis without necrosis or infection, unspecified; K86.1 - Other chronic pancreatitis Status: Acute (2) Alcohol withdrawal: Code(s): F10.939 - Alcohol use, unspecified with withdrawal, unspecified Status: Acute (3) Elevated LFTs: Code(s): R79.89 - Other specified abnormal findings of blood chemistry Status: Acute (4) Hypertension: Qualifiers: Hypertension type: primary hypertension Qualified Code(s): I10 - Essential (primary) hypertension Code(s): I10 - Essential (primary) hypertension Status: Acute (5) Tobacco dependence: Code(s): F17.200 - Nicotine dependence, unspecified, uncomplicated Status: Acute Plan Acute or Principle Conditions 1. Acute on Chronic Pancreatitis * From alcoholism * CT Abd/Pelvis Impression: Acute on chronic pancreatitis, without evidence of necrosis * Started on 1.5 mL/kg/hr IV fluid rehydation, continue * Antiemetics/Antipyretics as needed. Denies any nausea/vomiting today * 08/01: Lipase = 2716>545 2. ETOH Withdrawal * Day 3 * Continued Librium upon admission * [facility] protocol initiated: continue Folic acid and thiamine supplementation 3. Elevated LFTs * Alcohol induced * AST: 71>81 * ALT:71>64 * monitor Chronic Conditions 1. Essential Hypertension * Current BP: 113/79 * Continue Amlodipine and Losartan 2. Tobacco Dependence * counseled about cessation Time Spent With Patient Time: - Subjective Date/time seen: 08/01/24 07:55 Interval history: Patient is a 58 year old male with a PMHx of ETOH abuse, currently on 2 day of detox on Librium, chronic pancreatitis, and HTN who presented to the emergency department from [place] for severe upper abdominal pain and n/v. 08/01/2024 Patient states that his pain has subsided significantly since yesterday. Still endorses slight epigastric pain with generalized abdominal discomfort on palpation. He expressed desire to eat food. Will continue to monitor pain and nausea levels throughout the day and with food. Will continue to hydrate via IVF. Review of Systems Review of Systems: 12 systems were reviewed and are negativ e except for as per HPI. Exam Narrative: General: Moderately ill-appearing male in the semi-Teresa position in bed. He is in no acute distress. Weight: 73 kg. BMI: 25.2. HEENT: Normocephalic, atraumatic. PERRL, EOMI. Sclera anicteric. Moist mucous membranes. Neck: Supple. Respiratory: Lungs are clear to auscultation bilaterally. Cardiovascular: Regular rate and rhythm with S1-S2. Gastrointestinal: Abdomen is soft and nondistended with positive bowel sounds. He is tender to palpation throughout the upper abdomen with voluntary guarding but no rebound tenderness. Skin: Warm and dry. Extremities: No cyanosis, clubbing, or edema. Radial and pedal pulses intact. Neurological: Alert. Cranial nerves 2-12 are grossly intact. Faint tremors of the hands. No gross focal deficits to casual conversation. Psychiatric: Cooperative with appropriate mood and flat affect. Objective Data Vital Signs Vital Signs: Vital Signs - 24 hr 07/31/24 17:49 07/31/24 18:29 07/31/24 19:00 Temperature 97.5 F L Pulse Rate 108 H 106 H 93 Respiratory Rate 18 20 Blood Pressure 148/86 H 114/83 128/81 Pulse Oximetry 100 100 Oxygen Delivery 07/31/24 20:00 07/31/24 21:00 07/31/24 22:00 Temperature Pulse Rate 111 H 89 99 Respiratory Rate 16 16 16 Blood Pressure 125/92 H 125/87 102/70 Pulse Oximetry 100 100 99 Oxygen Delivery 07/31/24 22:29 07/31/24 22:30 07/31/24 22:31 Temperature Pulse Rate Respiratory Rate Blood Pressure 119/79 Pulse Oximetry 98 99 100 Oxygen Delivery 07/31/24 22:45 07/31/24 22:46 07/31/24 22:47 Temperature Pulse Rate Respiratory Rate Blood Pressure 113/81 Pulse Oximetry 100 100 99 Oxygen Delivery 07/31/24 23:01 07/31/24 23:16 07/31/24 23:31 Temperature Pulse Rate Respiratory Rate Blood Pressure 116/79 120/87 112/78 Pulse Oximetry 100 Oxygen Delivery 07/31/24 23:46 08/01/24 00:01 08/01/24 00:16 Temperature Pulse Rate Respiratory Rate Blood Pressure 101/78 103/78 109/78 Pulse Oximetry Oxygen Delivery 08/01/24 00:20 08/01/24 01:00 08/01/24 01:30 Temperature 97.9 F Pulse Rate 68 98 Respiratory Rate 16 18 Blood Pressure 109/78 112/82 Pulse Oximetry 98 99 Oxygen Delivery Room Air 08/01/24 04:00 08/01/24 04:00 Temperature 97.5 F L Pulse Rate 102 H 101 H Respiratory Rate 18 Blood Pressure 113/79 Pulse Oximetry 97 Oxygen Delivery Intake/Output Intake/Output: Intake & Output 07/29/24 07/30/24 07/31/24 08/01/24 23:59 23:59 23:59 23:59 Intake Total 2200 1000 Balance 2200 1000 Meds/Results Medications: Active Medications Generic Name Dose Route Start Last Admin Trade Name Freq PRN Reason Stop Dose Admin Lipase/Protease/Amylase 1 cap 08/01/24 09:00 Lipase/Amylase/Protease 12,000 Units Cap PO TID DIAMOND Carbamazepine 200 mg 08/01/24 09:00 Carbamazepine 200 Mg Tablet PO Q12HR [facility] Chlordiazepoxide HCl 25 mg 07/31/24 22:35 08/01/24 05:16 Chlordiazepoxide (*Crx) 25 Mg Capsule PO 25 mg Q8HR [facility] Administration Duloxetine HCl 60 mg 08/01/24 09:00 Duloxetine Hcl 30 Mg Capsule. PO QAM [facility] Duloxetine HCl 30 mg 08/01/24 21:00 Duloxetine Hcl 30 Mg Capsule. PO HS [facility] Enoxaparin Sodium 40 mg 08/01/24 09:00 Enoxaparin 40 Mg/0.4 Ml Syringe SUB-Q DAILY [facility] Fenofibrate 160 mg 08/01/24 09:00 Fenofibrate 160 Mg Tablet PO DAILY [facility] Folic Acid 1 mg 08/01/24 09:00 Folic Acid 1 Mg Tablet PO DAILY [facility] Gabapentin 300 mg 08/01/24 06:00 08/01/24 05:16 Gabapentin 300 Mg Capsule PO 300 mg Q8HR DIAMOND Administration Hydromorphone HCl 0.5 mg 07/31/24 22:33 Hydromorphone Hcl Inj (*Crx) 2 Mg/Ml Vial IV PUSH Q3H PRN Pain Rated 4-6 Hydromorphone HCl 1 mg 07/31/24 22:33 08/01/24 04:37 Hydromorphone Hcl Inj (*Crx) 1 Mg/Ml Syr IV PUSH 1 mg Q3H PRN Administration Pain Rated 7-10 Lactated Ringer's 1,000 mls @ 125 mls/hr 08/01/24 05:45 08/01/24 06:23 Lr - Lactated Ringers Iv IV CONT 125 mls/hr .Q8H DIAMOND Administration Lorazepam 2 mg 07/31/24 22:35 08/01/24 01:11 Lorazepam Inj (*Crx) 2 Mg/Ml Vial IV PUSH 2 mg Q2H PRN Administration CIWA 8-15 Lorazepam 4 mg 07/31/24 22:35 Lorazepam (*Crx) 1 Mg Tablet PO Q2H PRN CIWA > 15 Lorazepam 4 mg 07/31/24 22:35 Lorazepam Inj (*Crx) 2 Mg/Ml Vial IV PUSH Q2H PRN CIWA > 15 Magnesium Oxide 400 mg 08/01/24 09:00 Magnesium Oxide 400 Mg Tablet PO DAILY DIAMOND Nicotine 1 patch 07/31/24 22:35 07/31/24 22:57 Nicotine (*Pbkc) 21 Mg Patch TRANSDERM 1 patch DAILY DIAMOND Administration Pantoprazole Sodium 40 mg 08/01/24 09:00 Pantoprazole 40 Mg Tablet BY MOUTH DAILY [facility] Thiamine HCl 100 mg 08/01/24 09:00 Thiamine Hcl 200 Mg/2 Ml Vial IV PUSH QAM [facility] Radiology Results: ITS Impressions Abdomen/Pelvis CT 07/31/24 20:03 IMPRESSION: Acute on chronic pancreatitis, as detailed above. Labs Labs: Laboratory Results - last 24 hr 07/31/24 07/31/24 07/31/24 18:44 18:49 22:01 WBC 14.0 H RBC 4.38 L Hgb 13.4 L Hct 40.6 L MCV 92.7 MCH 30.6 MCHC 33.0 RDW 17.0 H Plt Count 221 MPV 10.5 H Immature Gran % (Auto) 0.6 H Neut % (Auto) 89.2 H Lymph % (Auto) 6.4 L Castro % (Auto) 3.1 Eos % (Auto) 0.5 Baso % (Auto) 0.2 Lymph # (Auto) 0.90 Castro # (Auto) 0.4 Eos # (Auto) 0.1 Baso # (Auto) 0.0 Abs Immat Gran (auto) 0.09 H Absolute Neuts (auto) 12.5 H Absolute Nucleated RBC 0.000 Nucleated RBC % 0.0 PT 11.2 INR 0.8 APTT 25.3 Sodium 134 L Potassium 4.0 Chloride 98 Carbon Dioxide 28 Anion Gap 8 BUN 14 D Creatinine 0.72 Estim Creat Clear Calc 92 Estimated GFR > 60 Glucose 135 H Calcium 9.6 Magnesium Total Bilirubin 0.7 AST 71 H ALT 71 H Alkaline Phosphatase 302 H Total Protein 7.0 Albumin 3.8 Triglycerides Lipase 2716 H Urine Color Yellow Urine Appearance Clear Urine pH 7.5 Ur Specific [place] > 1.045 H Urine Protein Negative Urine Glucose (UA) Negative Urine Ketones Negative Ur Blood (Man) Negative Urine Nitrate Negative Urine Bilirubin Negative Urine Urobilinogen 1.0 Leukocyte Esterase Rfl Negative Ethyl Alcohol < 10 08/01/24 06:16 WBC 8.5 RBC 3.48 L Hgb 10.5 L Hct 32.3 L MCV 92.8 MCH 30.2 MCHC 32.5 RDW 17.1 H Plt Count 167 MPV 11.2 H Immature Gran % (Auto) 0.6 H Neut % (Auto) 79.3 H Lymph % (Auto) 11.6 L Castro % (Auto) 7.9 Eos % (Auto) 0.4 Baso % (Auto) 0.2 Lymph # (Auto) 0.99 Castro # (Auto) 0.7 H Eos # (Auto) 0.0 Baso # (Auto) 0.0 Abs Immat Gran (auto) 0.05 H Absolute Neuts (auto) 6.8 H Absolute Nucleated RBC 0.000 Nucleated RBC % 0.0 PT INR APTT Sodium 133 L Potassium 3.8 Chloride 106 Carbon Dioxide 20 L Anion Gap 7 BUN 11 Creatinine 0.53 L Estim Creat Clear Calc 140 Estimated GFR > 60 Glucose 104 Calcium 8.4 Magnesium 1.7 Total Bilirubin 1.0 AST 81 H ALT 64 H Alkaline Phosphatase 213 H Total Protein 6.0 L Albumin 3.0 L Triglycerides 53 Lipase 545 H Urine Color Urine Appearance Urine pH Ur Specific [place] Urine Protein Urine Glucose (UA) Urine Ketones Ur Blood (Man) Urine Nitrate Urine Bilirubin Urine Urobilinogen Leukocyte Esterase Rfl Ethyl Alcohol Quality VTE Prophylaxis VTE prophylaxis: pharmacologic ordered Hospitalist MIPS Advance Care Plan I have confirmed that the patient's Advanced Care Plan is present, code status is documented, or surrogate decision maker is listed in patient medical record.: Yes Medication Reconciliation I have utilized all available resources to obtain, update and review the patients current medications (includes all prescriptions, OTC, herbals, cannabis, and nutritional supplements).: Yes
[2024-08-01] MEDS: DULoxetine HCL 30 MG CAPSULE.DR 60 MG PO (08:42)
[2024-08-01] MEDS: PANTOPRAZOLE 40 MG TABLET BY MOUTH (08:42)
[2024-08-01] MEDS: LIPASE/AMYLASE/PROTEASE 12,000 UNITS CAP 1 CAP PO ×3 (08:42→17:07)
[2024-08-01] MEDS: carBAMazepine 200 MG TABLET PO ×2 (08:43→20:59)
[2024-08-01] MEDS: FOLIC ACID 1 MG TABLET PO (08:43)
[2024-08-01] MEDS: ENOXAPARIN 40 MG/0.4 ML SYRINGE SUB-Q (08:43)
[2024-08-01] MEDS: FENOFIBRATE 160 MG TABLET PO (08:43)
[2024-08-01] MEDS: MAGNESIUM OXIDE 400 MG TABLET PO (08:43)
[2024-08-01] MEDS: NICOTINE (*PBKC) 21 MG PATCH 1 PATCH TRANSDERM (08:44)
[2024-08-01] MEDS: LOSARTAN POTASSIUM 25 MG TABLET PO (08:50)
[2024-08-01] MEDS: ASCORBIC ACID 500 MG TABLET PO (08:50)
[2024-08-01] MEDS: amLODIPine BESYLATE 10 MG TABLET PO (08:50)
[2024-08-01] MEDS: ACETAMINOPHEN 325 MG TABLET 650 MG PO ×2 (10:08→17:08)
[2024-08-01] MEDS: THIAMINE HCL 200 MG/2 ML VIAL 100 MG IV PUSH (10:08)
[2024-08-01] MEDS: MELOXICAM 7.5 MG TABLET PO (17:07)
[2024-08-01] MEDS: HYDROmorphone HCL INJ (*CRX) 2 MG/ML VIAL 0.5 MG IV PUSH (17:18)
[2024-08-01] MEDS: DULoxetine HCL 30 MG CAPSULE.DR PO (21:03)
[2024-08-01] MEDS: traZODone HCL 50 MG TABLET 100 MG PO (22:01)
[2024-08-02] VITALS: BP 119/81; PULSE 100; PULSE 109; RESP 18; TEMP 37.1; O2SAT 98
[2024-08-02] MEDS: LORazepam INJ (*CRX) 2 MG/ML VIAL IV PUSH (02:01)
[2024-08-02 04:00] VITALS: BP 126/85; PULSE 107; PULSE 93; RESP 18; TEMP 36.6; O2SAT 98
[2024-08-02] MEDS: chlordiazePOXIDE (*CRX) 25 MG CAPSULE PO (06:27)
[2024-08-02] MEDS: GABAPENTIN 300 MG CAPSULE PO ×2 (06:27→13:49)
--- NOTE | 2024-08-02 07:06 | P.CDI_ITS ---
CDI Query Clarification Request BMI: 22.7 Nutritional Diagnostic Statement: Please refer to the comprehensive nutrition assessment for further information. If you agree with diagnosis of Moderate protein calorie malnutrition related to chronic alcohol abuse as evidenced by weight loss 8%/2 months; moderate muscle wasting and fat loss. Please specify severity if known: * Mild * Moderate * Severe * Other/Unknown <Amanda Jerry RN - Last Filed: 08/02/24 07:07> Clarified Diagnosis Clarified Diagnosis: Moderate protein calorie malnutrition <Shine Johnson PA-C - Last Filed: 08/02/24 07:44>
--- NOTE | 2024-08-02 07:45 | P.PNIM_ITS ---
Progress Note: A&P Assessment and Plan (1) Acute on chronic pancreatitis: Code(s): K85.90 - Acute pancreatitis without necrosis or infection, unspecified; K86.1 - Other chronic pancreatitis Status: Acute (2) Alcohol withdrawal: Code(s): F10.939 - Alcohol use, unspecified with withdrawal, unspecified Status: Acute (3) Elevated LFTs: Code(s): R79.89 - Other specified abnormal findings of blood chemistry Status: Acute (4) Hypertension: Qualifiers: Hypertension type: primary hypertension Qualified Code(s): I10 - Essential (primary) hypertension Code(s): I10 - Essential (primary) hypertension Status: Acute (5) Tobacco dependence: Code(s): F17.200 - Nicotine dependence, unspecified, uncomplicated Status: Acute Plan Acute or Principle Conditions 1. Acute on Chronic Pancreatitis * From alcoholism * CT Abd/Pelvis Impression: Acute on chronic pancreatitis, without evidence of necrosis * Started on 1.5 mL/kg/hr IV fluid rehydation, continue * Antiemetics/Antipyretics as needed. Denies any nausea/vomiting today * 08/01: Lipase = 2716>545 2. ETOH Withdrawal * Day 4 * Continued Librium upon admission * [facility] protocol initiated: continue Folic acid and thiamine supplementation 3. Elevated LFTs * Alcohol induced * AST: 71>81 * ALT:71>64 * monitor Chronic Conditions 1. Essential Hypertension * Current BP: 126/85 * Continue Amlodipine and Losartan 2. Tobacco Dependence * counseled about cessation Subjective Date/time seen: 08/02/24 07:45 Interval history: Patient is a 58 year old male with a PMHx of ETOH abuse, currently on 2 day of detox on Librium, chronic pancreatitis, and HTN who presented to the emergency department from [place] for severe upper abdominal pain and n/v. 08/02/2024 Review of Systems Review of Systems: 12 systems were reviewed and are negativ e except for as per HPI. Exam Narrative: General: Moderately ill-appearing male in the semi-Teresa position in bed. He is in no acute distress. Weight: 73 kg. BMI: 25.2. HEENT: Normocephalic, atraumatic. PERRL, EOMI. Sclera anicteric. Moist mucous membranes. Neck: Supple. Respiratory: Lungs are clear to auscultation bilaterally. Cardiovascular: Regular rate and rhythm with S1-S2. Gastrointestinal: Abdomen is soft and nondistended with positive bowel sounds. He is tender to palpation throughout the upper abdomen with voluntary guarding but no rebound tenderness. Skin: Warm and dry. Extremities: No cyanosis, clubbing, or edema. Radial and pedal pulses intact. Neurological: Alert. Cranial nerves 2-12 are grossly intact. Faint tremors of the hands. No gross focal deficits to casual conversation. Psychiatric: Cooperative with appropriate mood and flat affect. Objective Data Vital Signs Vital Signs: Vital Signs - 24 hr 08/01/24 08:05 08/01/24 10:51 08/01/24 12:05 Temperature 98.3 F Pulse Rate 100 103 H 103 H Respiratory Rate 18 Blood Pressure 111/72 Pulse Oximetry 98 08/01/24 14:21 08/01/24 16:18 08/01/24 18:13 Temperature 98.0 F 97.9 F Pulse Rate 111 H 130 H 110 H Respiratory Rate 18 18 Blood Pressure 103/63 107/71 Pulse Oximetry 98 97 08/01/24 19:14 08/01/24 21:07 08/02/24 00:00 Temperature 97.7 F Pulse Rate 105 H 104 H 109 H Respiratory Rate 18 Blood Pressure 121/77 Pulse Oximetry 99 08/02/24 00:00 08/02/24 04:00 08/02/24 04:00 Temperature 98.7 F 97.8 F Pulse Rate 100 93 107 H Respiratory Rate 18 18 Blood Pressure 119/81 126/85 Pulse Oximetry 98 98 Intake/Output Intake/Output: Intake & Output 07/30/24 07/31/24 08/01/24 08/02/24 23:59 23:59 23:59 23:59 Intake Total 2200 4044.6 950 Output Total 400 Balance 2200 3644.6 950 Meds/Results Medications: Active Medications Generic Name Dose Route Start Last Admin Trade Name Freq PRN Reason Stop Dose Admin Acetaminophen 650 mg 08/01/24 09:32 08/01/24 17:08 Acetaminophen 325 Mg Tablet PO 650 mg Q4H PRN Administration Headache Amlodipine Besylate 10 mg 08/01/24 09:00 08/01/24 08:50 Amlodipine Besylate 10 Mg Tablet PO 10 mg DAILY DIAMOND Administration Lipase/Protease/Amylase 1 cap 08/01/24 09:00 08/01/24 17:07 Lipase/Amylase/Protease 12,000 Units Cap PO 1 cap TID DIAMOND Administration Ascorbic Acid 500 mg 08/01/24 09:00 08/01/24 08:50 Ascorbic Acid 500 Mg Tablet PO 500 mg DAILY DIAMOND Administration Carbamazepine 200 mg 08/01/24 09:00 08/01/24 20:59 Carbamazepine 200 Mg Tablet PO 200 mg Q12HR DI[facility]OND Administration Chlordiazepoxide HCl 25 mg 07/31/24 22:35 08/02/24 06:27 Chlordiazepoxide (*Crx) 25 Mg Capsule PO 25 mg Q8HR DI[facility]OND Administration Duloxetine HCl 60 mg 08/01/24 09:00 08/01/24 08:42 Duloxetine Hcl 30 Mg Capsule. PO 60 mg QAM DIAMOND Administration Duloxetine HCl 30 mg 08/01/24 21:00 08/01/24 21:03 Duloxetine Hcl 30 Mg Capsule. PO 30 mg HS DIAMOND Administration Enoxaparin Sodium 40 mg 08/01/24 09:00 08/01/24 08:43 Enoxaparin 40 Mg/0.4 Ml Syringe SUB-Q 40 mg DAILY DIAMOND Administration Fenofibrate 160 mg 08/01/24 09:00 08/01/24 08:43 Fenofibrate 160 Mg Tablet PO 160 mg DAILY DIAMOND Administration Folic Acid 1 mg 08/01/24 09:00 08/01/24 08:43 Folic Acid 1 Mg Tablet PO 1 mg DAILY DIAMOND Administration Gabapentin 300 mg 08/01/24 06:00 08/02/24 06:27 Gabapentin 300 Mg Capsule PO 300 mg Q8HR DIAMOND Administration Hydromorphone HCl 0.5 mg 07/31/24 22:33 08/01/24 17:18 Hydromorphone Hcl Inj (*Crx) 2 Mg/Ml Vial IV PUSH 0.5 mg Q3H PRN Administration Pain Rated 4-6 Hydromorphone HCl 1 mg 07/31/24 22:33 08/01/24 13:08 Hydromorphone Hcl Inj (*Crx) 1 Mg/Ml Syr IV PUSH 1 mg Q3H PRN Administration Pain Rated 7-10 Lactated Ringer's 1,000 mls @ 125 mls/hr 08/01/24 05:45 08/01/24 23:48 Lr - Lactated Ringers Iv IV CONT 125 mls/hr .Q8H DIAMOND Administration Lorazepam 2 mg 07/31/24 22:35 08/02/24 02:01 Lorazepam Inj (*Crx) 2 Mg/Ml Vial IV PUSH 2 mg Q2H PRN Administration CIWA 8-15 Lorazepam 4 mg 07/31/24 22:35 Lorazepam (*Crx) 1 Mg Tablet PO Q2H PRN CIWA > 15 Lorazepam 4 mg 07/31/24 22:35 Lorazepam Inj (*Crx) 2 Mg/Ml Vial IV PUSH Q2H PRN CIWA > 15 Losartan Potassium 25 mg 08/01/24 09:00 08/01/24 08:50 Losartan Potassium 25 Mg Tablet PO 25 mg DAILY DIAMOND Administration Magnesium Oxide 400 mg 08/01/24 09:00 08/01/24 08:43 Magnesium Oxide 400 Mg Tablet PO 400 mg DAILY DIAMOND Administration Meloxicam 7.5 mg 08/01/24 14:35 08/01/24 17:07 Meloxicam 7.5 Mg Tablet PO 7.5 mg BID PRN Administration joint pain Nicotine 1 patch 07/31/24 22:35 08/01/24 08:44 Nicotine (*Pbkc) 21 Mg Patch TRANSDERM 1 patch DAILY DIAMOND Administration Pantoprazole Sodium 40 mg 08/01/24 09:00 08/01/24 08:42 Pantoprazole 40 Mg Tablet BY MOUTH 40 mg DAILY DIAMOND Administration Thiamine HCl 100 mg 08/01/24 09:00 08/01/24 10:08 Thiamine Hcl 200 Mg/2 Ml Vial IV PUSH 100 mg QAM DIAMOND Administration Trazodone HCl 100 mg 08/01/24 08:37 08/01/24 22:01 Trazodone Hcl 50 Mg Tablet PO 100 mg QHS PRN Administration insomnia Radiology Results: ITS Impressions Abdomen/Pelvis CT 07/31/24 20:03 IMPRESSION: Acute on chronic pancreatitis, as detailed above. Quality VTE Prophylaxis VTE prophylaxis: pharmacologic ordered Hospitalist MIPS Advance Care Plan I have confirmed that the patient's Advanced Care Plan is present, code status is documented, or surrogate decision maker is listed in patient medical record.: Yes Medication Reconciliation I have utilized all available resources to obtain, update and review the patients current medications (includes all prescriptions, OTC, herbals, cannabis, and nutritional supplements).: Yes
[2024-08-02 08:00] VITALS: BP 114/77; PULSE 86; RESP 19; TEMP 36.2; O2SAT 99
[2024-08-02 08:04] VITALS: PULSE 91
[2024-08-02 08:13] LABS: Hemoglobin 9.7 g/dL (14.0-18.0); Mean Corpuscular HGB Conc 33.4 g/dl (32-36); Mean Corpuscular Hemoglobin 31.4 pg (26-34); Mean Corpuscular Volume 93.9 fl (80-100); Platelet Count Result 130 k/mm3 (150-375); Red Blood Count 3.09 M/mm3 (4.6-6.20); Red Cell Distribution Width 17.2 % (11.5-14.5); White Blood Count 6.1 K/mm3 (4.5-10.0)
[2024-08-02 08:41] LABS: Alanine Aminotransferase 44 U/L (6-50); Albumin Level 2.9 g/dL (3.5-5.1); Alkaline Phosphatase 210 U/L (38-126); Anion Gap 5 mmol/L (4-12); Aspartate Amino Transferase 41 U/L (17-59); Bilirubin,Total 0.4 mg/dL (0.2-1.3); Blood Urea Nitrogen 10 mg/dL (9-20); Calcium 8.8 mg/dL (8.4-10.2); Carbon Dioxide 25 mmol/L (22-30); Chloride 104 mmol/L (98-107); Estimated CRCL calculation 130 ml/min; Estimated Glomerular Filt Rate > 60; Glucose 117 mg/dL (65-110); Potassium 3.8 mmol/L (3.4-5.0); Sodium 134 mmol/L (137-145)
[2024-08-02] MEDS: NICOTINE (*PBKC) 21 MG PATCH 1 PATCH TRANSDERM (08:45)
[2024-08-02] MEDS: amLODIPine BESYLATE 10 MG TABLET PO (08:45)
[2024-08-02] MEDS: LOSARTAN POTASSIUM 25 MG TABLET PO (08:45)
[2024-08-02] MEDS: ASCORBIC ACID 500 MG TABLET PO (08:45)
[2024-08-02] MEDS: carBAMazepine 200 MG TABLET PO (08:45)
[2024-08-02] MEDS: PANTOPRAZOLE 40 MG TABLET BY MOUTH (08:45)
[2024-08-02] MEDS: DULoxetine HCL 30 MG CAPSULE.DR 60 MG PO (08:45)
[2024-08-02] MEDS: LIPASE/AMYLASE/PROTEASE 12,000 UNITS CAP 1 CAP PO ×2 (08:45→13:49)
[2024-08-02] MEDS: MAGNESIUM OXIDE 400 MG TABLET PO (08:45)
[2024-08-02] MEDS: FOLIC ACID 1 MG TABLET PO (08:45)
[2024-08-02] MEDS: FENOFIBRATE 160 MG TABLET PO (08:45)
[2024-08-02] MEDS: ENOXAPARIN 40 MG/0.4 ML SYRINGE SUB-Q (08:45)
--- NOTE | 2024-08-02 10:59 | PM.DS ---
DS: Admitting Diagnosis Discharge Date 08/02/2024 Admitting Diagnosis Acute on Chronic Pancreatitis ETOH Withdrawal Elevated LFTs Hypertension Tobacco Dependence DS: Discharge Diagnosis Discharge Diagnosis (1) Anemia: Code(s): D64.9 - Anemia, unspecified Status: Acute (2) Acute on chronic pancreatitis: Code(s): K85.90 - Acute pancreatitis without necrosis or infection, unspecified; K86.1 - Other chronic pancreatitis Status: Acute (3) Elevated LFTs: Code(s): R79.89 - Other specified abnormal findings of blood chemistry Status: Acute (4) Tobacco dependence: Code(s): F17.200 - Nicotine dependence, unspecified, uncomplicated Status: Acute (5) Alcohol withdrawal: Code(s): F10.939 - Alcohol use, unspecified with withdrawal, unspecified Status: Acute (6) Hypertension: Qualifiers: Hypertension type: primary hypertension Qualified Code(s): I10 - Essential (primary) hypertension Code(s): I10 - Essential (primary) hypertension Status: Acute DS: Summary Hospital Course Reason for hospitalization: Acute on Chronic Pancreatitis ETOH Withdrawal Elevated LFTs Hypertension Tobacco Dependence Hospital Course: This is a 58-year-old male smoker with history of alcohol abuse, chronic pancreatitis, and hypertension who presented to the emergency department from [facility] for evaluation. The patient provides the following history. He is currently at [facility] for detox and reports he has not had alcohol in the past 2 days in seems to be doing well in regards to that on scheduled Librium. This morning he developed severe, sharp and shooting upper abdominal pain radiating through to the back associated with nausea and nonbloody and nonbilious emesis. The symptoms are similar to those which he has experienced with prior pancreatitis. He denies fever, chest pain, shortness of breath, diarrhea, bloating, belching, melena, dysuria, hallucinations, and significant tremors. In the ED: Vital signs on arrival include a temperature of 97.5?, blood pressure 148/86, pulse 108, respiratory rate 18, SpO2 100% on room air. Labs are significant for WBC count of 14.0, hemoglobin 13.9, hematocrit 40.6%, total bilirubin 0.7, AST 71, ALT 71, alkaline phosphatase 302, lipase 2716. CT of the abdomen and pelvis shows acute on chronic pancreatitis and he is being admitted in this setting for further treatment. He was given hydromorphone, ketorolac, and ondansetron with some improvement. On 08/01, his symptoms improved greatly, although he still endorsed some mild abdominal discomfort upon palpation. He endorses some slight nausea, but denies any abdominal pain at rest, and denies any urinary or bowel changes. He was able to tolerate a clear liquid diet and attempted solid foods with minimal tolerance. Pain medication was also weaned into 08/02, with the patient continuing to endorse improvement of symptoms and ability to tolerate solid foods. On 08/02, his RBC, H/H, and Plts were found to be 3.09, 9.7/29 and 130 respectively, down from 3.48, 10.5/32.3 and 167 respectively. Iron studies were obtained, showed Iron level of 18, TIBC of 174 and % Sat of 10. Patient showed no clear signs of bleeding, still expresses interest in being discharge. Will discharge patient with Iron supplementation and a f/u CBC order to be obtained in 5 days and instructed to followup with his primary care physician. Status at Discharge Overall status at discharge: patient is back to baseline Time Spent with Patient Time attestation: Total time spent providing and/or coordinating discharge services:15- Exam Narrative: Gen - well appearing male in no acute respiratory distress who is nontoxic-appearing lying semi recumbent in bed HEENT - normocephalic. Atraumatic. Pupils equal round and reactive. Extraocular motions intact. Sclera clear and anicteric. Nares patent. Oropharynx was clear. No oral lesions. Moist mucous membranes. Tongue was midline. Palate ganesh symmetrically. No facial asymmetry. Neck - neck was supple. No dominant adenopathy, thyromegaly or masses. 2+ carotid upstrokes without bruits. Chest - lungs are clear to auscultation bilaterally. No wheezes or crackles. CV - heart was regular rate and rhythm. S1-S2. No murmurs gallops or rubs. Abd - abdomen was soft. Nontender. Nondistended. No guarding or rebound tenderness. Positive bowel sounds. No organomegaly or masses. Ext - no clubbing, cyanosis or edema. Neuro - patient is alert and oriented x4. Strength is 5/5 in both upper and lower extremities. Speech is clear. Psych - normal mood and affect. Patient is pleasant and cooperative. Skin - warm and dry. No rashes noted. DS: Data Data Completed and Pending Labs on day of discharge: Labs from last 24 hours 08/02/24 08:05 WBC 6.1 RBC 3.09 L Hgb 9.7 L Hct 29.0 L MCV 93.9 MCH 31.4 MCHC 33.4 RDW 17.2 H Plt Count 130 L MPV 11.0 H Sodium 134 L Potassium 3.8 Chloride 104 Carbon Dioxide 25 Anion Gap 5 BUN 10 Creatinine 0.58 L Estim Creat Clear Calc 130 Estimated GFR > 60 Glucose 117 H Calcium 8.8 Total Bilirubin 0.4 AST 41 ALT 44 Alkaline Phosphatase 210 H Total Protein 6.0 L Albumin 2.9 L Discharge Plan Discharge Attending physician on discharge: Shine Johnson Discharging Clinician: Shine Johnson Anticipated Discharge Date/Time: 08/02/24 10:52 Patient Disposition: Home, Self-Care Activity: may shower and as tolerated Diet: as tolerated Discharge Instructions: Per Care Coordination: Patient to return to [facility] in [place]. RN please call report to [phone] and have patient bring discharge instructions to facility nurse. Facility can provide transportation and will inform RN at time of report. Discharge disposition: Stable Take medications as prescribed Monitor blood pressures Take caution while standing, rising, or moving Change positions slowly taking a break between each position change If you standing feel dizzy sit back down and take a break Encouraged to continue with yearly vaccinations Return to the emergency department if he developed sudden shortness of breath, chest pain, nausea, vomiting, upset stomach, abdominal pain or intractable diarrhea Return to the emergency department if you develop fever greater than 101.5 You will be given Iron supplementation. Take these tablets as directed. You are also being given a laboratory order for a CBC. Please complete this in 5 days so that your Primary Care Physician can go over the results with you. Follow-up with the primary care physician within 1-2 weeks Thank you for [facility] for your healthcare needs Patient Instructions: Antibiotic Form Patient Language: Georgian Stand Alone Forms: General Discharge Information Follow-up/Referrals: Ronnell Escobar APRN [Primary Care Provider] - Discharge Medications: New ferrous sulfate 325 mg (65 mg iron) tablet 325 mg PO DAILY Qty: 5 0RF Continued fenofibrate 160 mg tablet 160 mg PO DAILY Qty: 90 1RF folic acid 1 mg tablet See Rx Instructions .ROUTE .COMPLEX Qty: 90 1RF Dose Instruction: TAKE 1 TABLET BY MOUTH DAILY Rx Instructions: TAKE 1 TABLET BY MOUTH DAILY pantoprazole 40 mg tablet,delayed release (DR/EC) See Rx Instructions .ROUTE .COMPLEX Qty: 90 1RF Dose Instruction: TAKE 1 TABLET BY MOUTH EVERY MORNING Rx Instructions: TAKE 1 TABLET BY MOUTH EVERY MORNING meloxicam 7.5 mg tablet 7.5 mg PO BID PRN (Reason: joint pain) Qty: 60 5RF potassium gluconate 595 mg (99 mg) tablet 595 mg PO DAILY losartan 25 mg tablet 25 mg PO DAILY carbamazepine 200 mg tablet 200 mg PO Q12H Patient Comments: for 5 days starting 07/30/24 biotin 5 mg capsule 5 mg PO DAILY magnesium 250 mg tablet 500 mg PO DAILY ascorbic acid (vitamin C) [Acerola C] 500 mg tablet,chewable 500 mg PO DAILY tizanidine 4 mg tablet 4 mg PO Q8H PRN (Reason: muscle spasticity) chlordiazepoxide HCl 25 mg capsule 25 mg PO TID PRN (Reason: alcohol withdrawal) Rx Instructions: CIWA scale, dose from 25mg-75mg tadalafil 20 mg tablet 5 mg PO DAILY duloxetine [Cymbalta] 30 mg capsule,delayed release(DR/EC) 90 mg PO BID Patient Comments: 2 capsules in AM, 1 at HS ju-dghi-uwsjj-lycopene-ginkgo 400-600-120 mcg-mcg-mg Tablet 1 tablet PO DAILY Creon 12,000-38,000 -60,000 unit capsule,delayed release(DR/EC) 1 cap PO TID Qty: 90 5RF Rx Instructions: administer with meals and/or snacks gabapentin 300 mg capsule 300 mg PO Q8H Qty: 270 1RF trazodone 50 mg tablet 100 mg PO .QHS PRN (Reason: insomnia) Qty: 180 1RF amlodipine 10 mg tablet 10 mg PO DAILY Qty: 90 1RF Other Ambulatory Orders: Complete Blood Count no Diff (Routine) Timeframe: 5 Days Location: Determined by Patient Ordered By: Shine Johnson Date of admission: 08/01/24 07:51 Primary Care Provider: Ronnell Escobar Admitting Provider: Mert Jones Attending physician on admission: Shine Johnson Condition: Stable Quality VTE Prophylaxis VTE prophylaxis: pharmacologic ordered
[2024-08-02 11:45] LABS: Iron 18 ug/dL (49-181)
[2024-08-02 11:56] LABS: Percent Iron Saturation 10 % (20-50)
[2024-08-02 12:00] VITALS: BP 128/68; PULSE 84; RESP 19; TEMP 36.4; O2SAT 98
[2024-08-02 12:05] VITALS: PULSE 96
== END 2024-08-02 14:05 | disposition home or self-care (01) | DRG 439 ==
LOC: ANHED 23:36 → ANH3MED 23:53
PROVIDERS: Physician Assistant; Admitting Provider Internal Medicine; Emergency Provider Physician Assistant; PCP Nurse Practitioner; Visit Provider Physician Assistant
DX: K85.90 Acute pancreatitis without necrosis or infection, unspecified (principal); E44.0 Moderate protein-calorie malnutrition; K86.1 Other chronic pancreatitis; I10 Essential (primary) hypertension; D64.9 Anemia, unspecified; E78.00 Pure hypercholesterolemia, unspecified; K21.9 Gastro-esophageal reflux disease without esophagitis; M15.9 Polyosteoarthritis, unspecified; M81.0 Age-related osteoporosis without current pathological fracture; F17.210 Nicotine dependence, cigarettes, uncomplicated; F10.10 Alcohol abuse, uncomplicated; Z87.11 Personal history of peptic ulcer disease; Z86.711 Personal history of pulmonary embolism; Z68.22 Body mass index [BMI] 22.0-22.9, adult
CPT/HCPCS: 36415; 74177; 80053; 81003; 82077; 83540; 83550; 83690; 83735; 84478; 85025; 85027; 85610; 85730; 96361; 96374; 96375; 96376; 99285; A9270; G0378; J1171; J1200; J1650; J1885; J2060; J2270; J2405; J2470; J2765; J3411; J7030; J7120; Q9967

== ENCOUNTER 2024-08-03 14:44 | Inpatient (IN) | payer MEDICARE, SELFPAY ==
--- NOTE | ~2024-08-03 | XR_ITS ---
EXAMINATION: XR foot LT min 3V DATE: 08/06/2024 13:27 INDICATION: Left foot wounds. TECHNIQUE: 3 views of left foot were obtained. COMPARISON: None. FINDINGS: Alignment is normal. No fracture. There is mild osteoarthritis of first metatarsophalangeal joint and talonavicular joint. IMPRESSION: 1. Mild polyarticular osteoarthritis. Reviewed, dictated and finalized at location B.
--- NOTE | ~2024-08-03 | MR_ITS ---
EXAMINATION: MR MRCP wo/w con/w 3D wo ind DATE: 08/09/2024 09:49 INDICATION: Pancreatitis. TECHNIQUE: Magnetic resonance imaging (MRI) of the abdomen was performed without and with 16 mL Multi Myles intravenous contrast. Sequences included coronal T2-weighted FS FSE, coronal T2-weighted FSE, a xial T1-weighted LAVA, coronal FS FIESTA, axial dual-echo T1-weighted SPGR, coronal lava-FLEX, sagitt al T2-weighted FSE, axial T2-weighted FSE, and axial DWI. Thick-slab T2-weighted FSE images were obta ined for magnetic resonance cholangiopancreatography (MRCP). Maximum intensity projection 3-D reconst ructions of the volumetric data were created by the technologist. Postcontrast sequences included cor onal LAVA-flex and time course of axial T1-weighted LAVA. COMPARISON: MRCP 06/23/2024, CT abdomen and pelvis 07/31/2024, 10/19/17, CT abdomen 10/12/19 FINDINGS: ABDOMEN MRI: There are trace pleural effusions. The liver demonstrates periportal edema. There is mil d intrahepatic biliary duct dilatation. The gallbladder is distended. The pancreatic duct is dilated to 8 mm. There is extensive fat stranding in the abdomen including around the pancreas. There is a 4. 2 x 1.6 cm rim-enhancing collection adjacent to the pancreas. There is a 2.9 x 2.0 cm rim-enhancing c ollection adjacent to the pancreas. The spleen, adrenal glands, and kidneys are normal. There is trac e ascites. ABDOMEN MRCP: The common hepatic duct measures 8 mm. The common bile duct is small in caliber. IMPRESSION: 1. 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 2. Stricture of the common bile duct secondary to pancreatitis with mild intrahepatic biliary duct di latation and gallbladder distention. Reviewed, dictated and finalized at location L. IMPRESSION: 1. Acute on chronic necrotic pancreatitis with worsened acute necrotic collecti ons. 2. Stricture of the common bile duct secondary to pancreatitis with mild intrah epatic biliary duct dilatation and gallbladder distention.
--- NOTE | ~2024-08-03 | XR_ITS ---
Portable chest x-ray Comparison: 06/23/2024 Clinical History: Chest pain Findings: There is discoid scarring or atelectasis left lung base. Lungs are otherwise clear. Cardi omediastinal silhouette is stable. Bones and soft tissues are unremarkable. Impression: Discoid atelectasis or scarring left lung base, otherwise clear lungs. Reviewed, dictated and finalized at location . Impression: Discoid atelectasis or scarring left lung base, otherwise clear lungs.
--- NOTE | ~2024-08-03 | XR_ITS ---
EXAMINATION: XR foot RT min 3V DATE: 08/06/2024 13:28 INDICATION: Right foot wounds. TECHNIQUE: 3 views of right foot were obtained. COMPARISON: None. FINDINGS: Alignment is normal. No fracture. There is mild osteoarthritis of first metatarsophalangeal joint and some of the interphalangeal joints. IMPRESSION: 1. Mild polyarticular osteoarthritis. Reviewed, dictated and finalized at location B.
--- OUTSIDE RECORDS SUMMARY | 2024-08-03 14:47 | XMS_ITS | Encounter Summary ---
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
--- OUTSIDE RECORDS SUMMARY | 2024-08-03 14:47 | XMS_ITS | Encounter Summary ---
Author Organization [facility] Address [address] [place] [address] Care Team Providers Care Bird Raiser Name Role Phone Lamberto Barker MD Primary Care Provider [phone] Encounter Details Date Type Department Care Team (Late st Contact Info) Description 11/07/2022 [place] Message Enc [facility] on [address] [address] [place], [facility] Provider Echocardiogram Social History Tobacco [...] often do you attend chur ch or mandaen services? 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
--- OUTSIDE RECORDS SUMMARY | 2024-08-03 14:47 | XMS_ITS | Encounter Summary ---
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
--- OUTSIDE RECORDS SUMMARY | 2024-08-03 14:47 | XMS_ITS | Encounter Summary ---
Author Organization [facility] Address [address] [place] [address] Care Team Providers Care Procurement Inspector Name Role Phone Lamberto Barker MD Primary Care Provider [phone] Encounter Details Date Type Department Care Team (Late st Contact Info) Description 01/05/2021 Hospital Follow-up Call [facility] [place] [address] Heather Adames, RN Social History Tobacco Use [...] How often do you attend chur or jainism services? Never 12/25/2020 Do you belong to any clubs o r organizations such as yarsani groups, unions, fraternal or athletic groups, or [...] move on to questions 3-9 2 12/25/2020 [facility] - Occupational Stress Questionnaire Answer [...] documented as of this encounter Care Teams Procurement Inspector Relationship Specialty Start Date End Date Lamberto Barker MD [address] [place] [address] PCP - General INTERNAL MEDICINE 05/08/19 documented as of this encounter
--- OUTSIDE RECORDS SUMMARY | 2024-08-03 14:47 | XMS_ITS | Clinical Summary ---
Author Organization [facility] Address [address] [place] [address] Care Team Providers Care Instructor Hairspring Name Role Phone Lamberto Barker MD Primary Care Provider [phone] Allergies Active Allergy Reactions Criticality Noted Date [...] total) by mouth daily. 3 Active CREON 17976-32384 units CAPSULE ENTERIC COATED PARTICLES Take 1 [...] says was normal. Cont ASA. Pancreatic pseudocyst ([facility]) 07/26/2021 Severe sepsis ([facility]) 07/08/2021 Overview (11/04/2022): Last Assessment & [...] Alcohol dependence with unsp ecified alcohol-induced disorder ([facility]) 06/25/2021 Overview (11/04/2022): Last Assessment & [...] has AA resources for discharge. Acute pancreatitis ([facility]) 06/20/2021 Pancreatitis ([facility]) 05/08/2019 Hypertension Tobacco abuse Resolved Problems Problem Noted Date Diagnosed Date Resolved Date Acute pancreatitis ([facility]) 12/28/2020 06/01/2021 Hypokalemia 06/20/2020 12/25/2020 Acute pancreatitis ([facility]) 06/19/2020 12/25/2020 Necrotizing pancreatitis ([facility]) 10/21/2019 12/25/2020 Other constipation 10/21/2019 Encounters Date Type Department Care Team Description 07/20/2024 2:13 PM HOISTING ENGINE OPERATOR - 07/20/2024 4:18 PM [facility] Emergency [facility] [place] [address] Lizette Shah MD Alcohol Intoxication Discharge Disposition: Left Against Medical Advice 07/20/2024 Travel 07/19/2024 11:53 AM HOISTING ENGINE OPERATOR - 07/19/2024 1:27 PM [facility] Emergency [facility] [place] [address] Lizette Shah MD Alcohol Intoxication Discharge Disposition: Left Against Medical Advice 07/19/2024 Travel 07/06/2024 2:36 AM HOISTING ENGINE OPERATOR - 07/06/2024 6:29 AM [facility] Emergency [facility] [place] [address] Daniel Hitchcock MD Withdrawal- Alcohol Discharge Disposition: [...] How often do you attend chur or mandaeism services? Never 12/25/2020 Do you belong to [...] move on to questions 3-9 2 12/25/2020 [facility] - [...] Comments Blood Pressure 99/62 07/20/2024 3:00 PM HOISTING ENGINE OPERATOR Pulse 98 07/20/2024 3:00 PM HOISTING ENGINE OPERATOR Temperature 37.1 C (98.8 F) 07/20/2024 2:33 PM HOISTING ENGINE OPERATOR Respiratory Rate 18 07/20/2024 3:00 PM HOISTING ENGINE OPERATOR Oxygen Saturation 93% 07/20/2024 3:00 PM HOISTING ENGINE OPERATOR Inhaled Oxygen Concentration - - Weight 79.2 kg (174 lb 9.7 oz) 07/20/2024 2:15 P M HOISTING ENGINE OPERATOR Height 182.9 cm (6') 07/20/2024 2:15 PM HOISTING ENGINE OPERATOR Body Mass Index 23.68 07/20/2024 2:15 PM HOISTING ENGINE OPERATOR Plan of Treatment Health Maintenance Due [...] (#1) 2024 03/08/2021, 03/03/2019, 02/05/2018 PHQ-2 (Physician [place]) 05/29/2024 Colorectal Cancer Screening FIT/FOBT (1 Year) [...] Reduce alcohol intake Lifestyle No Nancy Matthews awning hanger Procedure Name Priority Date/Time Associated Diagnosis Comments LIPASE STAT 07/20/2024 2:44 PM HOISTING ENGINE OPERATOR MAGNESIUM STAT 07/20/2024 2:44 PM HOISTING ENGINE OPERATOR COMPREHENSIVE METABOLIC PANEL STAT 07/20/2024 2:44 PM HOISTING ENGINE OPERATOR CBC W/DIFF AUTOMATED STAT 07/20/2024 2:44 PM HOISTING ENGINE OPERATOR LIPASE STAT 07/19/2024 12:38 PM HOISTING ENGINE OPERATOR MAGNESIUM STAT 07/19/2024 12:38 PM HOISTING ENGINE OPERATOR COMPREHENSIVE METABOLIC PANEL STAT 07/19/2024 12:38 PM HOISTING ENGINE OPERATOR CBC W/DIFF AUTOMATED STAT 07/19/2024 12:38 PM HOISTING ENGINE OPERATOR CT HEAD WO CON STAT 07/06/2024 3:15 AM HOISTING ENGINE OPERATOR LIPASE STAT 07/06/2024 3:00 AM HOISTING ENGINE OPERATOR ETHANOL STAT 07/06/2024 3:00 AM HOISTING ENGINE OPERATOR MAGNESIUM STAT 07/06/2024 3:00 AM HOISTING ENGINE OPERATOR TROPONIN, QUANT STAT 07/06/2024 3:00 AM HOISTING ENGINE OPERATOR COMPREHENSIVE METABOLIC PANEL STAT 07/06/2024 3:00 AM HOISTING ENGINE OPERATOR CBC W/DIFF AUTOMATED STAT 07/06/2024 3:00 AM HOISTING ENGINE OPERATOR OCCULT BLOOD, FECES Routine 09/15/2019 4 :49 PM CDT from Last 3 Months or Most Recently Relevant to Health Maintenance Results * (ABNORMAL) COMPREHENSIVE METABOLIC PANEL (07/20/2024 2:44 PM HOISTING ENGINE OPERATOR) Only the most recent of3 resultswithin the time period is included. [facility] Signature GLUCOSE 115(H) 70 - 99 MG/DL 07/20/2024 3:19 PM [facility] BUN 7 7 - 18 MG/DL 07/20/2024 3:19 PM [facility] CREATININE S/P/B 0.62(L) 0.7 - 1.3 MG/DL 07/20/2024 3:19 PM [facility] SODIUM S/P/B 139 136 - 145 MMOL/L 07/20/2024 3:19 PM [facility] POTASSIUM S/P/B 3.6 3.5 - 5.1 MMOL/L 07/20/2024 3:19 PM [facility] CHLORIDE S/P/B 106 97 - 115 MMOL/L 07/20/2024 3:19 PM [facility] CO2 24.0 21 - 32 MMOL/L 07/20/2024 3:19 PM [facility] CALCIUM S/P/B 8.8 8.5 - 10.1 MG/DL 07/20/2024 3:19 PM [facility] BILIRUBIN TOTAL S/P/B 0.2 0.2 - 1.2 MG/DL 07/20/2024 3:19 PM [facility] Comment: THIS ASSAY IS NOT RECOMMENDED FOR PATIENTS UNDERGOING TREATMENT WITH ELTROMBOPAG DUE TO THE POTENTIAL FOR FALSELY ELEVATED RESULTS. TOTAL PROTEIN S/P/B 6.9 6.4 - 8.2 G/DL 07/20/2024 3:19 PM [facility] ALBUMIN S/P/B 2.9(L) 3.4 - 5.0 G/DL 07/20/2024 3:19 PM [facility] AST 50(H) 15 - 37 U/L 07/20/2024 3:19 PM [facility] ALT 34 16 - 60 U/L 07/20/2024 3:19 PM [facility] ALKALINE PHOSPHATASE S/P/B 496(H) 50 - 136 U/L 07/20/2024 3:19 PM [facility] ANION GAP 9.0 2 - 10 MMOL/L 07/20/2024 3:19 PM [facility] BUN CREATININE RATIO 11.2 6 - 26 07/20/2024 3:19 PM [facility] A/G RATIO 0.7(L) 1.0 - 2.0 RATIO 07/20/2024 3:19 PM [facility] GFR ESTIMATE >90 >90 ML/MIN/1.7 3 M2 07/20/2024 3:19 PM [facility] Comment: NOTE: eGFR is not calculated for patients <18 years of age or gender unknown. This is an estimated GFR calculation using the new CKD EPI creatinine equation without race and so does not require a correction factor for race. This estimated GFR should not be used for calculating drug doses. 07/20/2024 2:44 PM HOISTING ENGINE OPERATOR us Lizette Shah MD LABORATORY Final Result [facility] [address] [place] [address], [place] [phone] * (ABNORMAL) CBC W/DIFF AUTOMATED (07/20/2024 2:44 PM HOISTING ENGINE OPERATOR) Only the most recent of3 resultswithin the time period is included. WBC 6.16 4.5 - 11.0 x10'3/uL 07/20/2024 2:52 PM [facility] RBC 3.76(L) 4.70 - 6.10 x10'6/uL 07/20/2024 2:52 PM [facility] HGB 11.4(L) 14.0 - 18.0 G/DL 07/20/2024 2:52 PM [facility] HCT 34.8(L) 43.0 - 54.0 % 07/20/2024 2:52 PM [facility] MCV 92.6 80.0 - 94.0 FL 07/20/2024 2:52 PM [facility] MCH 30.3 27.0 - 31.0 PG 07/20/2024 2:52 PM [facility] MCHC 32.8 32.0 - 36.0 G/DL 07/20/2024 2:52 PM [facility] RDW 16.5(H) 11.5 - 14.5 % 07/20/2024 2:52 PM [facility] PLT 433(H) 130 - 400 x10'3/uL 07/20/2024 2:52 PM [facility] MPV 8.8(L) 9.3 - 12.2 FL 07/20/2024 2:52 PM [facility] DIFFERENTIAL TYPE AUTOMATED DIFFERENTIAL 07/20/2024 2:52 PM [facility] NEUTROPHILS % 54.6 % 07/20/2024 2:52 PM [facility] LYMPHOCYTES % 31.2 % 07/20/2024 2:52 PM [facility] MONOCYTES % 12.0 % 07/20/2024 2:52 PM [facility] EOSINOPHILS 0.3 % 07/20/2024 2:52 PM [facility] BASOPHILS 1.6 % 07/20/2024 2:52 PM HOISTING ENGINE OPERATOR [facility] IMMATURE GRANS % 0.3 % 07/20/19 2:52 PM HOISTING ENGINE OPERATOR [facility] ABS. NEUTROPHILS 3.36 1.80 - 7.70 x10'3/uL 07/20/2024 2:52 PM HOISTING ENGINE OPERATOR [facility] ABS. LYMPHOCYTES 1.92 1.00 - 4.80 x10'3/uL 07/20/2024 2:52 PM HOISTING ENGINE OPERATOR [facility] ABS. MONOCYTES 0.74 0.30 - 0.82 x10'3/uL 07/20/2024 2:52 PM HOISTING ENGINE OPERATOR [facility] ABS. EOSINOPHILS 0.02(L) 0.04 - 0.54 x10'3/uL 07/20/2024 2:52 PM HOISTING ENGINE OPERATOR [facility] ABS. BASOPHILS 0.10(H) 0.01 - 0.08 x10'3/uL 07/20/2024 2:52 PM HOISTING ENGINE OPERATOR [facility] ABS. IMMATURE GRANULOCYTES 0.02 0.00 - 0.49 x10'3/uL 07/20/2024 2:52 PM HOISTING ENGINE OPERATOR [facility] 07/20/2024 2:44 PM HOISTING ENGINE OPERATOR us Lizette Shah MD LABORATORY Final Result [facility] [address] [place] [address], * MAGNESIUM (07/20/2024 2:44 PM HOISTING ENGINE OPERATOR) Only the most recent of3 resultswithin the time period is included. MAGNESIUM 2.2 1.8 - 2.4 MG/DL 07/20/2024 3:19 PM HOISTING ENGINE OPERATOR [facility] 07/20/2024 2:44 PM HOISTING ENGINE OPERATOR us Lizette Shah MD LABORATORY Final Result [facility] [address] [place] [address], [place] [phone] * LIPASE (07/20/2024 2:44 PM HOISTING ENGINE OPERATOR) Only the most recent of3 resultswithin the time period is included. LIPASE 17 13 - 75 UNITS/L 07/20/2024 3:19 PM HOISTING ENGINE OPERATOR [facility] 07/20/2024 2:44 PM HOISTING ENGINE OPERATOR us Lizette Shah MD LABORATORY Final Result Performing Organization Address [facility] de Phone Number [facility] [address] [place] [id number], [place] [phone] * CT HEAD WO CON (07/06/2024 3:15 AM HOISTING ENGINE OPERATOR) Anatomical Region Laterality Modality Head Computed Tomogra phy 07/06/2024 3:13 AM HOISTING ENGINE OPERATOR Impressions 07/06/2024 3:16 AM HOISTING ENGINE OPERATOR IMPRESSION: 1. No acute intracranial abnormality. [...] 07/06/2024 3:13 AM Narrative 07/06/2024 3:16 AM HOISTING ENGINE OPERATOR [facility] [address] [place], [place] [address] EXAMINATION: CT Head without Contrast, Axial Imaging [...] Procedure Note Sparkle Monaco MD - 07/06/2024 [facility] [address] [place] [address] EXAMINATION: CT Head without Contrast, Axial Imaging [...] t * TROPONIN, QUANT (07/06/2024 3:00 AM HOISTING ENGINE OPERATOR) [facility] TROPONIN I HIGH SENSITIVITY 9 <79 ng/L 07/06/2024 3:58 AM HOISTING ENGINE OPERATOR [facility] Comment: HIGH DOSES OF BIOTIN, TROPONIN-SPECIFIC AUTOANTIBODIES, AND ANTIBODY THERAPY CONTAINING HAMA MAY INTERFERE WITH THIS TEST RESULT. CORRELATION TO CLINICAL HISTORY AND PRESENTATION RECOMMENDED. 07/06/2024 3:00 AM HOISTING ENGINE OPERATOR us Daniel Hitchcock MD LABORATORY Final Resul t Performing Organization Address City/[facility]/ZIP Co de Phone Number [facility] [address] [place] [id number], * (ABNORMAL) ETHANOL (07/06/2024 3:00 AM HOISTING ENGINE OPERATOR) [facility] ALCOHOL S/P/B 0.158(H) <0.003 G/DL 07/06/2024 3:58 AM HOISTING ENGINE OPERATOR [facility] 07/06/2024 3:00 AM HOISTING ENGINE OPERATOR us Daniel Hitchcock MD LABORATORY Final Resul t [facility] [address] [place] [address], [place] [phone] * OCCULT BLOOD, FECES (09/15/2019 4:49 PM CDT) [facility] OCCULT BLOOD FECAL NEGATIVE 09/15/2019 5:56 PM CDT [facility] STOOL SPECIMEN / Unknown 09/15/2019 4:49 PM CDT González Morataya PA-C BODY FLUIDS AND STOOLS ORDERAB LES Final Result [facility] [address] [place] [address], from Last 3 Months or Most Recently [...] 11:31 PM 12/26/2020 7:51 PM Care Teams Instructor Hairspring Relationship Specialty Start Date End Date Lamberto Barker MD [address] [place] [address] PCP - General INTERNAL MEDICINE 05/08/19
--- OUTSIDE RECORDS SUMMARY | 2024-08-03 14:47 | XMS_ITS | Clinical Summary ---
Author Organization [facility] Address [address] [place] [address] Care Team Providers Care Running Rigger Name Role Phone Don Walton Primary Care Provider Allergies Active Allergy Reactions Criticality Noted Date Comments Ciprofloxacin Hives Medium 06/02/2023 Patient stated he has previously tolerated PO. 06/02/23 had redness and hives after IV dose. Penicillins Rash Medium 05/08/2019 Mfyrhivrtdcl-Fchoplbiek-Tnr trs Angioedema High 09/17/[address] [...] daily 30 patch 01/12/20 22 Active multivit fgmhftek-yjos-NP-c alcium (THERA-M) 9 mg iron-400 mcg tabletIndications: [...] 06/10/2023 Assessment & Plan (06/12/2023 2:18 PM MOLD SHOP SUPERVISOR): Patient reports feeling constipated, gassy and bloated. [...] 06/08/2023 Assessment & Plan (06/09/2023 1:55 PM MOLD SHOP SUPERVISOR): Resolved. Acute pancreatitis, unspecif ied complication status, unspecified pancreatitis type 06/04/2023 Assessment & Plan (06/05/2023 12:45 PM MOLD SHOP SUPERVISOR): Longstanding bouts of pancreatitis originally from EtOH [...] 06/04/2023 Assessment & Plan (06/05/2023 12:48 PM MOLD SHOP SUPERVISOR): Likely from pancreatitis. Also tender to palpation initially so may be a musculoskeletal component from dry heaving. Trops negative. EKG no ischemic changes. He reports hx of NH in the past, unclear circumstances. He had an exercise stress test in spring at an outside facility that he says was normal. Cont ASA. Gram-negative bacteremia 04/11/2023 Assessment & Plan (04/13/2023 7:02 PM MOLD SHOP SUPERVISOR): - due to cholangitis - BCx + for E coli and K. Pneumoniae - repeat BCx drawn 04/11, ngtd - pansensitive organisms - d/c home today with flagyl/cipro Cholangitis 04/10/2023 Assessment & Plan (04/12/2023 6:21 PM MOLD SHOP SUPERVISOR): - Improving - 04/10 ERCP - removal of two migrates stents with biliary obstruction and replaced with 2 new stents in biliary stricture - PRN analgesics and antiemetics Assessment & Plan (04/10/2023 2:40 AM MOLD SHOP SUPERVISOR): -meets [place] criteria for acute cholangitis based [...] 01/04/2022 Assessment & Plan (06/13/2023 2:35 PM MOLD SHOP SUPERVISOR): Recently admitted from 06/04-06/05/23 after ERCP on [...] (01/05/2022): Added automatically from request for surgery [id number] Assessment & Plan (04/11/2023 3:57 PM MOLD SHOP SUPERVISOR): - improving -2/2 stent migration and resultant biliary obstruction Assessment & Plan (04/10/2023 2:27 AM MOLD SHOP SUPERVISOR): -2/2 stent migration and resultant biliary obstruction -mgmt as above -repeat HFP in AM 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 Overview (11/30/2021): Added automatically from request for surgery [id number] Encounter for replacement of biliary stent 11/30 Overview (11/30/2021): Added automatically from request for surgery [id number] 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 Pancreatic pseudocyst 07/26/2021 Severe sepsis 07/08/2021 Assessment & Plan (07/13/2021 9:43 AM MOLD SHOP SUPERVISOR): Pt elevated temp on 2 overnight 38.1 [...] infection Assessment & Plan (07/12/2021 9:40 AM MOLD SHOP SUPERVISOR): Pt elevated temp on 2 overnight 38.1 [...] infection Assessment & Plan (07/11/2021 10:55 AM MOLD SHOP SUPERVISOR): Pt elevated temp on 2 overnight 38.1 [...] bed Assessment & Plan (07/10/2021 9:10 AM MOLD SHOP SUPERVISOR): Pt elevated temp on 2 overnight 38.1 max, hypotensive with normal lactate but new JOSE, transferred to [facility], aggressive IVF, BC, empirical meropenem initiated. Fluid [...] daily Assessment & Plan (07/09/2021 2:23 PM MOLD SHOP SUPERVISOR): Pt elevated temp on 2 overnight 38.1 max, hypotensive with normal lactate but new JOSE, transferred to [facility], aggressive IVF, BC, empirical abx initiated. Fluid [...] daily Assessment & Plan (07/08/2021 1:53 PM MOLD SHOP SUPERVISOR): Pt elevated temp overnight 38.1 max, hypotensive [...] 07/07/2021 Assessment & Plan (07/13/2021 9:43 AM MOLD SHOP SUPERVISOR): Dobbhoff placed 2/10, tube feeding to initiated Osmolite 1.5 at 55mL/hr over 24h via NJ tube continuous via pump. Flush with 150mL water q4h. Now at goal of 55cc/hr. Can cycle at home as instructed. Will continue TF until follow up with GI as outpatient Assessment & Plan (07/12/2021 9:39 AM MOLD SHOP SUPERVISOR): Dobbhoff placed 2/10, tube feeding to initiated Osmolite 1.5 at 55mL/hr over 24h via NJ tube continuous via pump. Flush with 150mL water q4h. Now at goal of 55cc/hr. Can cycle at home as instructed. Will continue TF until follow up with GI as outpatient Assessment & Plan (07/11/2021 10:55 AM MOLD SHOP SUPERVISOR): Dobbhoff placed 2/10, tube feeding to initiated [...] Phos Assessment & Plan (07/10/2021 9:08 AM MOLD SHOP SUPERVISOR): Cherelle placed 07/08, tube feeding to initiated [...] Phos Assessment & Plan (07/09/2021 2:25 PM MOLD SHOP SUPERVISOR): Cherelle placed 07/08, tube feeding to initiated [...] prn Assessment & Plan (07/08/2021 1:11 PM MOLD SHOP SUPERVISOR): Cherelle placed 07/08, tube feeding to initiate TF recommendations: Goal: Osmolite 1.5 at 55mL/hr over 24h via [place] tube continuous via pump. Flush with 150mL water q4h. Initiate TF at 10mL/hr and increase by 10mL q4h until goal rate is reached Chronic pancreatitis, unspecified pancreatitis t ype 07/06/2021 Assessment & Plan (07/13/2021 9:42 AM MOLD SHOP SUPERVISOR): Ongoing acute episode of (developing) chronic pancreatitis. [...] home Assessment & Plan (07/12/2021 9:38 AM MOLD SHOP SUPERVISOR): Ongoing acute episode of (developing) chronic pancreatitis. [...] 07/13 Assessment & Plan (07/11/2021 10:53 AM MOLD SHOP SUPERVISOR): Ongoing acute episode of (developing) chronic pancreatitis. [...] discharge Assessment & Plan (07/10/2021 9:07 AM MOLD SHOP SUPERVISOR): Ongoing acute episode of developing chronic pancreatitis. [...] feedings Assessment & Plan (07/09/2021 2:30 PM MOLD SHOP SUPERVISOR): Ongoing acute episode of chronic pancreatitis. Just [...] CTM Assessment & Plan (07/08/2021 1:49 PM MOLD SHOP SUPERVISOR): Ongoing acute episode of chronic pancreatitis. Just [...] plan Assessment & Plan (07/07/2021 11:22 AM MOLD SHOP SUPERVISOR): Ongoing acute episode of chronic pancreatitis. Just [...] plan Assessment & Plan (07/06/2021 5:30 PM MOLD SHOP SUPERVISOR): Ongoing acute episode of chronic pancreatitis. Just [...] 07/06/2021 Assessment & Plan (07/13/2021 9:42 AM MOLD SHOP SUPERVISOR): Likely ATN related to hypotensive episode. Cr peaked at Cr at 2.31, now back to baseline after aggressive IVF and now tolerating TF. Assessment & Plan (07/12/2021 9:36 AM MOLD SHOP SUPERVISOR): Likely ATN related to hypotensive episode. Cr peaked at Cr at 2.31, now back to baseline after aggressive IVF and now tolerating TF. Assessment & Plan (07/11/2021 10:54 AM MOLD SHOP SUPERVISOR): Likely ATN related to hypotensive episode. Cr peaked at Cr at 2.31, now back to baseline after aggressive IVF, continue to monitor bmp, continue fluids Assessment & Plan (07/10/2021 9:08 AM MOLD SHOP SUPERVISOR): Likely ATN related to hypotensive episode. Cr peaked at Cr at 2.31, now back to baseline after aggressive IVF, continue to monitor bmp, continue fluids Assessment & Plan (07/09/2021 2:29 PM MOLD SHOP SUPERVISOR): Cr at baseline after aggressive IVF, continue to monitor bmp, continue fluids Assessment & Plan (07/08/2021 1:10 PM MOLD SHOP SUPERVISOR): Cr baseline 0.8 now up to 1.3 on arrival due to po intolerance Aggressive IVF will monitor urine output Today net fluid intake 191 Cr trended up to 2.31 continue aggressive fluids Daily bmp Continue IVF Assessment & Plan (07/07/2021 11:19 AM MOLD SHOP SUPERVISOR): Cr baseline 0.8 now up to 1.3 on arrival due to po intolerance Aggressive IVF will monitor urine output Today net fluid intake 191 Cr 1.05 improving with fluids Daily bmp Continue IVF Assessment & Plan (07/06/2021 5:39 PM MOLD SHOP SUPERVISOR): Cr baseline 0.8 now up to 1.3 on arrival due to po intolerance Aggressive IVF will monitor urine output Alcohol dependence 06/25/2021 Assessment & Plan (06/07/2023 5:01 AM MOLD SHOP SUPERVISOR): Last drink on [place] and he reports being motivated to remain [...] program Assessment & Plan (07/13/2021 9:42 AM MOLD SHOP SUPERVISOR): Has a long history of alcohol use [...] Group Assessment & Plan (07/12/2021 9:36 AM MOLD SHOP SUPERVISOR): Has a long history of alcohol use [...] Group Assessment & Plan (07/11/2021 10:54 AM MOLD SHOP SUPERVISOR): Has a long history of alcohol use [...] Group Assessment & Plan (07/10/2021 9:05 AM MOLD SHOP SUPERVISOR): Has a long history of alcohol use [...] Group Assessment & Plan (07/09/2021 2:33 PM MOLD SHOP SUPERVISOR): Has a long history of alcohol use [...] Group Assessment & Plan (07/08/2021 1:06 PM MOLD SHOP SUPERVISOR): Has a long history of alcohol use with dependence. He states he has not had a drink since before his ERCP 06/22/2021 and has been on Vivitrol injections. His ethanol level on arrival to the ED is negative Plan to continue EtOH cessation and support with outpatient naltrexone therapy. Assessment & Plan (07/07/2021 11:13 AM MOLD SHOP SUPERVISOR): Has a long history of alcohol use with dependence. He states he has not had a drink since before his ERCP 06/22/2021 and has been on Vivitrol injections. His ethanol level on arrival to the ED is negative Plan to continue EtOH cessation and support with outpatient naltrexone therapy. Assessment & Plan (07/06/2021 5:22 PM MOLD SHOP SUPERVISOR): Has a long history of alcohol use with dependence. He states he has not had a drink since before his ERCP 06/22/2021 and has been on Vivitrol injections. His ethanol level on arrival to the ED is negative Plan to continue EtOH cessation and support with outpatient naltrexone therapy Assessment & Plan (06/28/2021 11:39 AM MOLD SHOP SUPERVISOR): Long standing hx of alcohol dependence with [...] needed Assessment & Plan (06/27/2021 11:47 AM MOLD SHOP SUPERVISOR): Long standing hx of alcohol dependence with [...] needed Assessment & Plan (06/26/2021 11:59 AM MOLD SHOP SUPERVISOR): Long standing hx of alcohol dependence with [...] 06/25/2021 Assessment & Plan (06/07/2023 5:06 AM MOLD SHOP SUPERVISOR): Markedly hypertensive on ED arrival in the setting of pain -Continue home Amlodipine 10 mg qday and losartan 25 mg qday Assessment & Plan (06/05/2023 12:47 PM MOLD SHOP SUPERVISOR): Hypertensive initially from pain. Improved today. Cont home meds. Assessment & Plan (04/12/2023 6:21 PM MOLD SHOP SUPERVISOR): -continue norvasc Assessment & Plan (04/10/2023 2:31 AM MOLD SHOP SUPERVISOR): -resume norvasc in AM Assessment & Plan (01/11/2022 11:23 AM CDT): Continue norvasc Assessment & Plan (01/10/2022 11:40 AM CDT): Continue norvasc Assessment & Plan (07/13/2021 9:43 AM MOLD SHOP SUPERVISOR): Continue to hold home lisinopril on account of recent hypotension/JOSE. With low normotensive BP will discontinue lisinopril. Follow up with PCP in 2-4 weeks to re evaluate restarting if needed Assessment & Plan (07/12/2021 9:38 AM MOLD SHOP SUPERVISOR): Continue to hold home lisinopril on account of recent hypotension/JOSE. BP normal, may not require lisinopril on discharge. Assessment & Plan (07/11/2021 10:54 AM MOLD SHOP SUPERVISOR): Continue to hold home lisinopril on account of recent hypotension/JOSE. BP normal, may not require lisinopril on discharge. Assessment & Plan (07/10/2021 9:06 AM MOLD SHOP SUPERVISOR): Continue to hold home lisinopril on account of recent hypotension Assessment & Plan (07/09/2021 2:32 PM MOLD SHOP SUPERVISOR): Continue to hold home lisinopril until more stable BP Assessment & Plan (07/08/2021 1:06 PM MOLD SHOP SUPERVISOR): BP hypotensive overnight hold antihypertensives at this time. Assessment & Plan (07/07/2021 11:15 AM MOLD SHOP SUPERVISOR): BP on remain normotensive Continue lisinopril and pain control Assessment & Plan (07/06/2021 5:30 PM MOLD SHOP SUPERVISOR): BP on arrival normotensive Continue lisinopril and pain control Assessment & Plan (06/28/2021 11:39 AM MOLD SHOP SUPERVISOR): Continue home lisinopril 40 mg -Monitor BP -BP stable Assessment & Plan (06/27/2021 11:48 AM MOLD SHOP SUPERVISOR): Continue home lisinopril 40 mg -Monitor BP/Cr -BP stable Assessment & Plan (06/25/2021 4:55 PM MOLD SHOP SUPERVISOR): Continue home lisinopril 40 mg -Monitor BP/Cr -Daily BMP Tobacco abuse 06/25/2021 Major depressive disorder 06/25/2021 Assessment & Plan (06/07/2023 5:07 AM MOLD SHOP SUPERVISOR): Continue home duloxetine 30 mg BID and trazodone 50 mg qhs Assessment & Plan (06/04/2023 11:58 AM MOLD SHOP SUPERVISOR): Cont home meds Assessment & Plan (01/11/2022 11:23 AM CDT): Continue duloxetine scheduled and trazodone prn Assessment & Plan (01/10/2022 11:40 AM CDT): Continue duloxetine scheduled and trazodone prn Assessment & Plan (07/13/2021 9:43 AM MOLD SHOP SUPERVISOR): Most certainly contributing to his long standing alcohol use. Continue home meds duloxetine and trazodone Assessment & Plan (07/12/2021 9:38 AM MOLD SHOP SUPERVISOR): Most certainly contributing to his long standing alcohol use. Continue home meds duloxetine and trazodone Assessment & Plan (07/11/2021 10:54 AM MOLD SHOP SUPERVISOR): Most certainly contributing to his long standing alcohol use. Continue home meds duloxetine and trazodone Assessment & Plan (07/10/2021 9:06 AM MOLD SHOP SUPERVISOR): Most certainly contributing to his long standing alcohol use. Continue home meds duloxetine and trazodone Assessment & Plan (07/09/2021 2:30 PM MOLD SHOP SUPERVISOR): Most certainly contributing to his long standing alcohol use now with cessation Continue home meds duloxetine and trazodone Assessment & Plan (07/08/2021 1:09 PM MOLD SHOP SUPERVISOR): Most certainly contributing to his long standing alcohol use now with cessation Continue home meds duloxetine and trazodone Assessment & Plan (07/07/2021 11:16 AM MOLD SHOP SUPERVISOR): Most certainly contributing to his long standing alcohol use now with cessation Continue home meds duloxetine and trazodone Assessment & Plan (07/06/2021 5:32 PM MOLD SHOP SUPERVISOR): Most certainly contributing to his long standing alcohol use now with cessation Continue home meds duloxetine and trazodone Assessment & Plan (06/28/2021 11:39 AM MOLD SHOP SUPERVISOR): Continue home Trazodone 50 mg, Cymbalta 30 mg Resume Biofeedback at discharge Assessment & Plan (06/27/2021 11:48 AM MOLD SHOP SUPERVISOR): Continue home Trazodone 50 mg, Cymbalta 30 mg Resume Biofeedback at discharge Assessment & Plan (06/25/2021 4:57 PM MOLD SHOP SUPERVISOR): Continue home Trazodone 50 mg, Cymbalta 30 mg Resume Biofeedback at discharge Pancreatic duct obstruction 06/11/2021 Overview (06/11/2021): Added automatically from request for surgery [id number] Abdominal pain 06/11/2021 Overview (06/11/2021): Added automatically from request for surgery [id number] Necrotizing pancreatitis 10/21/2019 Therapeutic opioid induced constipation 10/21/19 20 Assessment & Plan (07/13/2021 9:44 AM MOLD SHOP SUPERVISOR): Continue bowel regimen Assessment & Plan (07/12/2021 9:41 AM MOLD SHOP SUPERVISOR): Bowel regimen ordered without BM. Will titrate bowel regimen Assessment & Plan (07/11/2021 10:58 AM MOLD SHOP SUPERVISOR): Bowel regimen ordered Assessment & Plan (06/28/2021 11:39 AM MOLD SHOP SUPERVISOR): Pt states no BM for the past week. Likely due to decrease intake and vomiting, possible contribution from opioids -daily bowel regimen, had BM Monday Assessment & Plan (06/27/2021 11:48 AM MOLD SHOP SUPERVISOR): Pt states no BM for the past week. Likely due to decrease intake and vomiting, possible contribution from opioids -daily bowel regimen Assessment & Plan (06/26/2021 12:00 PM MOLD SHOP SUPERVISOR): Pt states no BM for the past week. Likely due to decrease intake and vomiting, possibly contribution from opioids -daily bowel regimen -clear liquid diet Acute pancreatitis 05/08/2019 Assessment & Plan (06/28/2021 11:38 AM MOLD SHOP SUPERVISOR): Hx of chronic pancreatis starting 3 years [...] prioritized. Assessment & Plan (06/27/2021 11:46 AM MOLD SHOP SUPERVISOR): Hx of chronic pancreatis starting 3 years [...] prioritized. Assessment & Plan (06/26/2021 11:59 AM MOLD SHOP SUPERVISOR): Hx of chronic pancreatis starting 3 years [...] 04/11/2023 Assessment & Plan (04/10/2023 2:38 AM MOLD SHOP SUPERVISOR): -migrated stent likely etiology of presenting symptoms and lab, CT findings -will likely need ERCP for stent exchange on Monday Metabolic acidosis, increased anion gap (IAG) 06/25/1907/09/2021 Assessment & Plan (07/09/2021 2:31 PM MOLD SHOP SUPERVISOR): Dobbhoff placed 07/08, to start tube feeding TF recommendations: Goal: Osmolite 1.5 at 55mL/hr over 24h via [place] tube continuous via pump. Flush with 150mL water q4h. Initiate TF at 10mL/hr and increase by 10mL q4h until goal rate is reached Assessment & Plan (07/08/2021 1:49 PM MOLD SHOP SUPERVISOR): Due to starvation in the setting of [...] reached Assessment & Plan (07/07/2021 11:16 AM MOLD SHOP SUPERVISOR): Due to starvation in the setting of intolerance to PO for the last 3-4 days. Will provide aggressive IVF Continue to discuss enteral feedings with the patient going forward, currently pt is refusing, GI will readdress with pt today with goal for placement today should pt agree. Change IVF to D5LR Assessment & Plan (07/06/2021 5:38 PM MOLD SHOP SUPERVISOR): Due to starvation in the setting of intolerance to PO for the last 3-4 days. Will provide aggressive IVF Continue to discuss enteral feedings with the patient going forward Assessment & Plan (06/28/2021 11:39 AM MOLD SHOP SUPERVISOR): Likely dehydration from pancreatitis, n/v and poor intake. Heme concentrated hgb 14.9 (baseline 8-9), wbc 14.4 no source of infection likely heme concentrated, anion gap 20, UA ketone +1. Resolved with IVF Assessment & Plan (06/27/2021 11:47 AM MOLD SHOP SUPERVISOR): Likely dehydration from pancreatitis, n/v and poor intake. Heme concentrated hgb 14.9 (baseline 8-9), wbc 14.4 no source of infection likely heme concentrated, anion gap 20, UA ketone +1. Resolved with IVF Assessment & Plan (06/26/2021 12:00 PM MOLD SHOP SUPERVISOR): Likely dehydration from pancreatitis, n/v and poor intake. Heme concentrated hgb 14.9 (baseline 8-9), wbc 14.4 no source of infection likely heme concentrated, anion gap 20, UA ketone +1 -IVF -Clear liquid diet -Daily bmp Encounters Date Type Department Care Team Description 07/23/2024 10:42 AM MOLD SHOP SUPERVISOR - 07/23/2024 3:32 PM MOLD SHOP SUPERVISOR [facility] Department [address] [place] [address] Discharge Disposition: Left without being seen from [...] drink = 0.6 oz pur e alcohol) [facility] Emulisities Answer Date Recorded In the past 12 [...] often do you attend chur ch or yazidi services? 1 to 4 times per year [...] slept in a custodial (including now)? No 09/21/2023 Personal Safety Answer Date Recorded Have you ever been in or are you currently in a harmful physical or emotional relationship or is someone making you feel afraid or unsafe? Denies 07/23/2024 Sex and Gender Information Value Date Recorded Sex Assigned at Not on file Legal Sex Male 1:58 AM MOLD SHOP SUPERVISOR Gender Identity Not on file Sexual Orientation Not on file Occupation Industry Job Start Date Job End Date disability Not on file Not on file Not on file Obstetrics History Last Filed Vital Signs Vital Sign Reading Time Taken Comments Blood Pressure 125/77 07/23/2024 10:51 AM MOLD SHOP SUPERVISOR Pulse 100 07/23/2024 10:51 AM MOLD SHOP SUPERVISOR Temperature 36.4 C (97.6 F) 07/23/2024 10:51 AM MOLD SHOP SUPERVISOR Respiratory Rate 16 07/23/2024 10:51 AM MOLD SHOP SUPERVISOR Oxygen Saturation 99% 07/23/2024 10:51 AM MOLD SHOP SUPERVISOR Inhaled Oxygen Concentration - - Weight 86.2 kg (190 lb) 07/23/2024 10:51 AM MOLD SHOP SUPERVISOR Height 182.9 cm (6') 07/23/2024 10:51 AM MOLD SHOP SUPERVISOR Body Mass Index 25.77 07/23/2024 10:51 AM MOLD SHOP SUPERVISOR Plan of Treatment Health Maintenance Due Date [...] 03/03/2019, 02/05/2018 Medical Devices Implanted Type Area Quality Control Chemist Device Identifier Shelf Expiration Date Model / Serial / Lot [employer] 8.5 Fr Nasal Biliary Catheter [id number] - [id number] Implanted:Qty: 1 on 01/26/2022 by Kenneth Loya MD at [facility] Catheter [employer] 06/22/2024 [id number] / / [id number] [employer] 10fr 5cm Biliary Double Pigtail Stent [id number] - [id number] Implanted:Qty: 1 on 09/21/2023 by Kenneth Loya MD at [facility] Stent N/A: Bile Duct [employer] 08/14/2025 [id number] / / [id number] [employer] 10fr 5cm Biliary Stent [id number] - [id number] Implanted:Qty: 1 on 09/21/2023 by Kenneth Loya MD at [facility] Stent N/A: Bile Duct [employer] 07/03/2025 [id number] / / [id number] [employer] 10fr 5cm Biliary Double Pigtail Stent [id number] - [id number] Implanted:Qty: 1 on 09/21/2023 by Kenneth Loya MD at [facility] Stent N/A: Bile Duct [employer] 08/23/2025 [id number] / / [id number] [employer] 10fr 5cm Biliary Double Pigtail Stent [id number] - [id number] Implanted:Qty: 1 on 09/21/2023 by Kenneth Loya MD at [facility] Stent N/A: Bile Duct [employer] 08/23/2025 [id number] / / [id number] [employer] 10fr 5cm Biliary Double Pigtail Stent [id number] - [id number] Implanted:Qty: 1 on 09/21/2023 by Kenneth Loya MD at [facility] Stent N/A: Bile Duct [employer] 08/14/2025 [id number] / / [id number] [employer] 10fr 7cm Biliary Stent [id number] - [id number] Implanted:Qty: 1 on 04/10/2023 by John De Anda MD at [facility] [employer] [id number] 12/13/2024 [id number] / / [id number] [employer] 10fr 7cm Biliary Stent [id number] - [id number] Implanted:Qty: 1 on 04/10/2023 by John De Anda MD at [facility] [employer] [id number] 02/07/2025 [id number] / / [id number] Explanted Type Area Quality Control Chemist Device Identifier Shelf Expiration Date Model / Serial / Lot [employer] [id number] Cotton-Young 10fr 7cm Taper Tip Guidewire Proximal Distal Flap - [id number] Implanted:Qty: 1 on 08/04/2021 by Kenneth Loya MD at [facility] Explanted:Qty: 1 on 08/30/2021 at [facility] Stent N/A: Bile Duct [employer] 01/28/2024 [id number] / / [id number] A[employer] 10 X 10 Stent Delivery System [id number] - [id number] Implanted:Qty: 1 on 08/04/2021 by Kenneth Loya MD at [facility] Explanted:Qty: 1 on 08/30/2021 at [facility] Stent N/A: Bile Duct [employer] 10/13/2022 [id number] / / [id number] [employer] Geenen 7fr 7cm Positioning Sleeve Push Catheter Guide[employer] [id number] - [id number] Implanted:Qty: 1 on 08/30/2021 at [facility] Explanted:Qty: 1 on 11/01/2021 by Kenneth Loya MD at [facility] Stent N/A: Pancreas [employer] 11/06/2023 [id number] / / [id number] [employer] 10fr 5cm Biliary Stent [id number] - [id number] Implanted:Qty: 1 on 01/26/2022 by Kenneth Loya MD at [facility] Explanted:Qty: 1 on 04/06/2022 by Kenneth Loya MD at [facility] Stent [employer] 11/16/2023 [id number] / / [id number] [employer] Advanix Naviflex 7fr 9cm Radiopaque Grey Eagle Endo Marker Color Coded [id number] - [id number] Implanted:Qty: 1 on 01/26/2022 by Kenneth Loya MD at [facility] Explanted:Qty: 1 on 04/06/2022 at [facility] Stent [employer] 04/16/2023 [id number] / / [id number] [employer] Advanix 8.5fr 7cm Rapid Exchange Temporary [place] Stent [id number] - [id number] Implanted:Qty: 1 on 04/06/2022 by Kenneth Loya MD at [facility] Explanted:Qty: 1 on 07/06/2022 by Kenneth Loya MD at [facility] Stent N/A: Pancreas [employer] 10/26/2023 [id number] / / [id number] [employer] Advanix 8.5fr 7cm Rapid Exchange Temporary [place] Stent [id number] - [id number] Implanted:Qty: 1 on 04/06/2022 by Kenneth Loya MD at [facility] Explanted:Qty: 1 on 07/06/2022 by Kenneth Loya MD at [facility] Stent N/A: Pancreas [employer] 10/26/2023 [id number] / / [id number] [employer] 10fr 5cm Biliary Stent [id number] - [id number] Implanted:Qty: 1 on 09/08/2022 by Kenneth Loya MD at [facility] Explanted:Qty: 1 on 11/03/2022 by Kenneth Loya MD at [facility] Stent N/A: Bile Duct [employer] 08/07/2024 [id number] / / [id number] [employer] 10fr 5cm Biliary Stent [id number] - [id number] Implanted:Qty: 1 on 09/08/2022 by Kenneth Loya MD at [facility] Explanted:Qty: 1 on 11/03/2022 by Kenneth Loya MD at [facility] Stent N/A: Bile Duct [employer] 05/04/2024 [id number] / / [id number] [employer] [place]wright Flexi-Stent 7fr 7cm Small Pigtail Flexible .035in Stent 6574 - [id number] Implanted:Qty: 1 on 09/08/2022 by Kenneth Loya MD at [facility] Explanted:Qty: 1 on 11/03/2022 by Kenneth Loya MD at [facility] Stent N/A: Bile Duct [employer] 05/28/2027 [id number] / / [id number] [employer] Geenen 8.5fr 9cm Drain Obstructed Positioning Sleeve Pushing [id number] - [id number] Implanted:Qty: 1 on 04/06/2022 by Kenneth Loya MD at [facility] Explanted:Qty: 1 on 01/05/2023 by Kenneth Loya MD at [facility] Stent N/A: Pancreas [employer] 05/03/2024 [id number] / / [id number] [employer] Cartwright Flexi-Stent 7fr 7cm Small Pigtail Flexible .035in Stent 6574 - [id number] Implanted:Qty: 1 on 11/03/2022 by Kenneth Loya MD at [facility] Explanted:Qty: 1 on 01/05/2023 by Kenneth Loya MD at [facility] Stent N/A: Pancreas [employer] 05/28/2027 6574 / / [id number] [employer] 10fr 5cm Biliary Stent [id number] - [id number] Implanted:Qty: 1 on 11/03/2022 by Kenneth Loya MD at [facility] Explanted:Qty: 1 on 01/05/2023 at [facility] Stent N/A: Bile Duct [employer] 08/15/2024 [id number] / / [id number] [employer] Cotton-Young 10fr 5cm Taper Tip Soft Proximal Distal Flap Gentle [id number] - [id number] Implanted:Qty: 1 on 11/03/2022 by Kenneth Loya MD at [facility] Explanted:Qty: 1 on 01/05/2023 by Kenneth Loya MD at [facility] Stent N/A: Bile Duct [employer] 08/10/2025 [id number] / / [id number] [employer] [place]wright Flexi-Stent 4fr 7cm Small Pigtail Flexible .025in Stent 6544 - [id number] Implanted:Qty: 1 on 01/05/2023 by Kenneth Loya MD at [facility] Explanted:Qty: 1 on 06/02/2023 at [facility] Stent N/A: Pancreas [employer] 07/27/2027 [id number] / / [id number] Description:Not present on t his procedure [employer] 10fr 7cm Biliary Stent [id number] - [id number] Implanted:Qty: 1 on 01/05/2023 by Kenneth Loya MD at [facility] Explanted:Qty: 1 on 06/02/2023 by Jero Soto MD at [facility] Stent N/A: Bile Duct [employer] 12/13/2024 [id number] / / [id number] [employer] 10fr 7cm Biliary Stent [id number] - [id number] Implanted:Qty: 1 on 01/05/2023 by Kenneth Loya MD at [facility] Explanted:Qty: 1 on 06/02/2023 by Jero Soto MD at [facility] Stent N/A: Bile Duct [employer] 12/13/2024 [id number] / / [id number] [employer] 10fr 5cm Biliary Double Pigtail Stent [id number] - [id number] Implanted:Qty: 1 on 06/02/2023 by Kenneth Loya MD at [facility] Explanted:Qty: 1 on 09/21/2023 by Kenneth Loya MD at [facility] Stent N/A: Bile Duct [employer] 04/30/2025 [id number] / / [id number] [employer] 10fr 5cm Biliary Double Pigtail Stent [id number] - [id number] Implanted:Qty: 1 on 06/02/2023 by Kenneth Loya MD at [facility] Explanted:Qty: 1 on 09/21/2023 by Kenneth Loya MD at [facility] Stent N/A: Bile Duct [employer] 04/30/2025 [id number] / / [id number] [employer] 10fr 5cm Biliary Stent [id number] - [id number] Implanted:Qty: 1 on 06/02/2023 by Kenneth Loya MD at [facility] Explanted:Qty: 1 on 09/21/2023 by Kenneth Loya MD at [facility] Stent N/A: Bile Duct [employer] 02/28/2025 [id number] / / [id number] [employer] 10fr 5cm Biliary Double Pigtail Stent [id number] - [id number] Implanted:Qty: 1 on 06/02/2023 by Kenneth Loya MD at [facility] Explanted:Qty: 1 on 09/21/2023 by Kenneth Loya MD at [facility] Stent N/A: Bile Duct [employer] 04/30/2025 [id number] / / [id number] [employer] [id number] Advanix 10fr 5cm Rapid Exchange Temporary [place] Stent - [id number] Implanted:Qty: 1 on 06/18/2021 by Kenneth Loya MD at [facility] Explanted:Qty: 1 on 08/30/2021 at [facility] [employer] 06/30/2022 [id number] / / [id number] Description:Removed prior [employer] Advanix Od10 Fr L7 Cm 1; Temporary Duodenal Bend Stent Biliary Pl [id number] - [id number] Implanted:Qty: 1 on 08/30/2021 at [facility] Explanted:Qty: 1 on 11/01/2021 by Kenneth Loya MD at [facility] N/A: Bile Duct [employer] 06/25/2022 [id number] / / [id number] [employer] Advanix Naviflex 10fr 9cm Lead Joaan Radiopaque Flexible [id number] - [id number] Implanted:Qty: 1 on 11/01/2021 by Kenneth Loya MD at [facility] Explanted:Qty: 1 on 01/05/2022 by Contreras Girard MD at [facility] N/A: Pancreas [employer] 07/18/2022 [id number] / / [id number] 10fr 5cm Biliary Stent [id number] - [id number] Implanted:Qty: 1 on 11/01/2021 by Kenneth Loya MD at [facility] Explanted:Qty: 1 on 01/05/2022 at [facility] N/A: Bile Duct [employer] 08/12/2023 [id number] / / [id number] 10fr 7cm Biliary Stent [id number] - [id number] Implanted:Qty: 1 on 11/01/2021 by Kenneth Loya MD at [facility] Explanted:Qty: 1 on 01/05/2022 by Contreras Girard MD at [facility] N/A: Bile Duct [employer] 08/23/2023 [id number] / / [id number] [employer] Cotton-Young 10fr 5cm Taper Tip Soft Proximal Distal Flap Gentle [id number] - [id number] Implanted:Qty: 1 on 01/05/2022 by Contreras Girard MD at [facility] Explanted:Qty: 1 on 01/26/2022 at [facility] N/A: Bile Duct [employer] 05/07/2022 [id number] / / [id number] [employer] Advanix 7fr 7cm Lead Joana Radiopaque [place] [employer] Marker Drainage [id number] - [id number] Implanted:Qty: 1 on 07/06/2022 by Kenneth Loya MD at [facility] Explanted:Qty: 1 on 09/08/2022 by Kenneth Loya MD at [facility] N/A: Pancreas [employer] 05/03/2023 [id number] / / [id number] [employer] 10fr 5cm Biliary Stent [id number] - [id number] Implanted:Qty: 1 on 07/06/2022 by Kenneth Loya MD at [facility] Explanted:Qty: 1 on 09/08/2022 by Kenneth Loya MD at [facility] N/A: Bile Duct [employer] 12/24/2022 [id number] / / [id number] [employer] 10fr 5cm Biliary Stent [id number] - [id number] Implanted:Qty: 1 on 07/06/2022 by Kenneth Loya MD at [facility] Explanted:Qty: 1 on 09/08/2022 by Kenneth Loya MD at [facility] N/A: Bile Duct [employer] 11/16/2023 [id number] / / [id number] [employer] 10fr 7cm Biliary Stent [id number] - [id number] Explanted:Qty: 1 on 04/10/2023 by John De Anda MD at [facility] [employer] [id number] 12/13/2024 [id number] / / [id number] Description:Unable to place despite multiple attempts Procedures Procedure Name Priority Date/Time Associated Diagnosis Comments EGFR STAT 07/23/2024 11:01 AM MOLD SHOP SUPERVISOR DIFFERENTIAL AUTO STAT 07/23/2024 11: 01 AM [employer] SUPERVISOR ETHANOL STAT 07/23/2024 11:01 AM [employer] SUPERVISOR CBC WITH AUTO DIFFERENTIAL STAT 07/23/2024 11:01 AM [employer] SUPERVISOR COMPREHENSIVE METABOLIC PANEL STAT 07/23/2024 11:01 AM MOLD SHOP SUPERVISOR from Last 3 Months Results * eGFR (07/23/2024 11:01 AM MOLD SHOP SUPERVISOR) eGFR >90 >=60 mL/min/1. 73 m2 Comment: [...] reviewed 2021. Blood 07/23/2024 11:0 1 AM MOLD SHOP SUPERVISOR 07/23/2024 11:03 AM MOLD SH[employer] SUPERVISOR Jonny Parada MD LAB BLOOD ORDERABLES Final Res ult [facility] Department [place] [address] * Differential, auto (07/23/2024 11:01 AM MOLD SHOP SUPERVISOR) Neutrophil abs 1.7 1.5 - 6.5 K/cumm [...] on 2017. Blood 07/23/2024 11:0 1 AM MOLD SHOP SUPERVISOR 07/23/2024 11:03 AM MOLD SHOP SUPERVISOR us Jonny Parada MD LAB BLOOD ORDERABLES Final Res ult [facility] ([place] Department [place] [address] * (ABNORMAL) CBC with auto differential (07/23/2024 11:01 AM MOLD SHOP SUPERVISOR) Pathologist [facility] [place] WBC 3.9 3.8 - 9.9 K/cumm Hgb 13.7 13.0 - 17.5 g/dL [facility] Hct 40.3 38.9 - 50.3 % [facility] ([place] Plt 485(H) 150 - 400 K/cumm [facility] ([place] MPV 8.8(L) 9.1 - 12.3 fL [facility] ([place] RBC 4.47 4.30 - 5.80 M/cumm [facility] ([place] MCV 90.2 81.3 - 96.4 fL [facility] ([place] MCH 30.6 27.1 - 33.3 pg [facility] ([place] MCHC 34.0 32.3 - 35.7 g/dL [facility] ([place] RDW CV 16.7(H) 11.1 - 14.9 % [facility] ([place] RDW SD 54.8(H) 35.7 - 48.1 fL [facility] NRBC abs 0.00 0.00 - 0.01 K/cumm [facility] Blood 07/23/2024 11:0 1 AM MOLD SHOP SUPERVISOR 07/23/2024 11:03 AM MOLD SHOP SUPERVISOR us Jonny Parada MD LAB BLOOD ORDERABLES Final Res ult [facility] ([place]) [facility] Department [place] [address] * (ABNORMAL) Ethanol (07/23/2024 11:01 AM MOLD SHOP SUPERVISOR) Pathologist [facility] [place] Ethanol 314(C) <=10 mg/dL Comment: Critical Result called by [id number] at 2024-07-23 11:26:12. Result Read Back by Marine Quan ED Interpretive Data Legal limit of intoxication > or = 80 mg/dL Levels > or = 400 mg/dL are potentially TOXIC. Current interpretive data was last revised on 2018. Blood 07/23/2024 11:0 1 AM MOLD SHOP SUPERVISOR 07/23/2024 11:03 AM MOLD SHOP SUPERVISOR us Jonny Parada MD LAB BLOOD ORDERABLES Final Res ult [facility] ([place]) [facility] Department [place] [address] * (ABNORMAL) Comprehensive metabolic panel (07/23/2024 11:01 AM MOLD SHOP SUPERVISOR) Sodium 144 135 - 145 mmol/L Potassium, [...] [facility] Blood 07/23/2024 11:0 1 AM MOLD SHOP SUPERVISOR 07/23/2024 11:03 AM MOLD SHOP SUPERVISOR Jonny Parada MD LAB BLOOD ORDERABLES Final Res ult [facility] ([place]) [facility] [place] [address] from Last 3 Months Insurance [employer] Advance Directives For more information, please contact: [phone] * Full Code (Latest Code Status on [...] 7:36 AM 06/02/2023 3:26 PM Care Teams Running Rigger Relationship Specialty Start Date End Date Don Walton PA [address] [address] PCP - General Physician Commercial Relationship Manager 12/28/21
--- OUTSIDE RECORDS SUMMARY | 2024-08-03 14:47 | XMS_ITS | Continuity of Care Document ---
Author Organization [facility] Address [address] [place] [address] [address] [place] [address] Phone Care Team Providers Care Roll Winder Name Role Phone Glenn Maciel Unavailable Unavailable Procedures Procedure Date Therapeutic Activities Neuromuscular Re-Ed Therapeutic Exercise Manual Therapy Therapeutic Activities Neuromuscular Re-Ed Manual Therapy Neuromuscular Re-Ed Manual Therapy Therapeutic Activities Therapeutic Activities Therapeutic Exercise Neuromuscular Re-Ed Manual Therapy Therapeutic Activities Neuromuscular Re-Ed Therapeutic Exercise Manual Therapy Therapeutic Activities Neuromuscular Re-Ed Therapeutic Activities Neuromuscular Re-Ed Therapeutic Exercise Manual Therapy Neuromuscular Re-Ed Therapeutic Exercise Therapeutic Activities Manual Therapy Therapeutic Activities Neuromuscular Re-Ed Therapeutic Exercise Manual Therapy Therapeutic Activities Neuromuscular Re-Ed Therapeutic Exercise Neuromuscular Re-Ed Therapeutic Activities Therapeutic Exercise Therapeutic Exercise Neuromuscular Re-Ed Therapeutic Activities Therapeutic Activities Therapeutic Exercise Neuromuscular Re-Ed Therapeutic Activities Therapeutic Exercise Neuromuscular Re-Ed Therapeutic Activities Neuromuscular Re-Ed Therapeutic Exercise Neuromuscular Re-Ed Therapeutic Activities Therapeutic Exercise Therapeutic Activities Therapeutic Exercise Neuromuscular Re-Ed Therapeutic Activities Neuromuscular Re-Ed Therapeutic Exercise Manual Therapy Therapeutic Activities Neuromuscular Re-Ed Therapeutic Exercise Manual Therapy Manual Therapy Therapeutic Activities Therapeutic Exercise Neuromuscular Re-Ed Therapeutic Activities Progress Note Neuromuscular Re-Ed Therapeutic Exercise Manual Therapy Neuromuscular [...] Re-Ed Therapeutic Activities Therapeutic Exercise PT Re-evaluation Therapeutic Exercise Neuromuscular Re-Ed Therapeutic Activities Therapeutic Activities Therapeutic Exercise Neuromuscular [...] Date Provider Providers Copied on Encounter [facility], [address] [address], [place], [place], [id number], [place] tel:[phone] [place] No Information Oct-0 9-202 0 Muehl Glenn. [address] [place] [address], [address], [place], [address], [place]. tel:[phone] [place], [place] [address], [place], [place], [id number], [place] tel:[phone] [place] No Information Oct-0 8-202 0 Muehl Glenn. [address] [place] [address], [address], [place], [address], [place]. tel:[phone] [place] [address] [address], [place], [place], [id number], [place] tel:[phone] [place] No Information Oct-0 6-202 0 Lehnen Velma. . [facility] [address] [place], [place] [address], [place], [place], [id number], [place] tel:[phone] [place] No Information Oct-0 2-202 0 Lehnen Velma. . [facility] [address] [place], [place] [address], [place], [place], [id number], [place] tel:[phone] [place] No Information Oct-0 1-202 0 Muehl Glenn. [address] [place] [address], [address], [place], [address], [place]. tel:[phone] [place], [place] [address], [place], [place], [address], [place] tel:[phone] [place] No Information Sep-2 9-202 0 Muehl Glenn. [address] [place] [address], [address], [place], [address], [place]. tel:[phone] [place], [place] [address], [place], [place], [address], [place] tel:[phone] [place] No Information Sep-2 4-202 0 Muehl Glenn. [address] [place] [address], [address], [place], [address], [place]. tel:[phone] [place], [place] [address], [place], [place], [address], tel:[phone] [place] No Information Sep-2 2-202 0 Muehl Glenn. [address] [place] [address], [facility] 105, [place], [place], [facility], [place]. tel:[phone] [place], [place] [address], [place], [place], [id number], tel:[phone] [place] No Information Sep-1 8-202 0 Muehl Glenn. [address] [place] [address], [address], [place], [facility], [place]. tel:[phone] [place], [place] [address], [place], [place], [address], tel:[phone] [place] No Information Sep-1 5-202 0 Muehl Glenn. [address] [place] [address], [facility] 105, [place], [facility], [place]. tel:[phone] [place], [place] [address], [place], [place], [address], [place] tel:[phone] [place] No Information Sep-1 1-202 0 Darío Cervantes. . [address], [place], [address], [place] tel:[phone] [place] No Information Sep-1 0-202 0 Muehl Glenn. [address] [place] [address], [facility] 105, [place], [facility], [place]. tel:[phone] [place] [address], [place], [address], [place] tel:[phone] [place] No Information Sep-0 8-202 0 Muehl Glenn. [address] [place] [address], [facility] 105, [place], [facility], [place]. tel:[phone] [place] [address], [place], [address], [place] tel:[phone] [place] No Information Sep-0 4-202 0 Muehl Glenn. [address] [place] [address] [address], [place], [address], [place]. tel:[phone] [place] [address], [place], [address], [place] tel:[phone] [place] No Information Sep-0 3-202 0 Muehl Glenn. [address] [place] [address], [address], [place], [address], [place]. tel:[phone] [place] [address], [place], [place], [address], [place] tel:[phone] [place] No Information Sep-0 1-202 0 Muehl Glenn. [address] [place] [address], [address], [place], [address], [place]. tel:[phone] [place] [address], [place], [place], [address], [place] tel:[phone] [place] No Information Aug-2 8-202 0 Threlkeld Shanell. . [address], [place], [address], [place] tel:[phone] [place] No Information Aug-2 7- 0 Muehl Glenn. [address] [place] [address], [address], [place], [address], [place]. tel:[phone] [place] [address], [place], [address], [place] tel:[phone] [place] No Information Aug-2 5-202 0 Muehl Glenn. [address] [place] [address], [address], [place], [address], [place]. tel:[phone] [place], [place] [address], [place], [address], [place] tel:[phone] [place] No Information Aug-2 1-202 0 Muehl Glenn. [address] [place] [address], [address], [place], [address], [place]. tel:[phone] [place] [address], [place], [address], [place] tel:[phone] [place] No Information Aug-2 0-202 0 Muehl Glenn. [address] [place] [address], [address], [place], [facility], [place]. tel:[phone] [place], [place] [address] [place] [address], [place], [place], [address], [place] tel:[phone] [place] No Information Aug-1 8-202 0 Muehl Glenn. [address] [place] [address], [address], [place], [address], [place]. tel:[phone] [place] [address] [address], [place], [place], [address], [place] tel:[phone] [place] No Information Dec-1 3-202 0 Muehl Glenn. [address] [place] [address], [address], [place], [facility], [place]. tel:[phone] [place], [place] [address] [place] [address], [place], [place], [address], [place] tel:[phone] [place] No Information Dec-1 1- 0 Muehl Glenn. [address] [place] [address], [address], [place], [facility], [place]. tel:[phone] [place], [place] [address] [place] [address], [place], [place], [address], [place] tel:[phone] [place] No Information Aug-0 7-202 0 Niederhoffer Helen. . [facility], [place], [place], [address], [place] tel:[phone] [place] No Information Aug-0 6-202 0 Niederhoffer Helen. . [facility], [place], [place], [address], [place] tel:[phone] [place] No Information Aug-0 5-202 0 Jessa Carreon. . [facility], [place], [place], [address], [place] tel:[phone] [place] No Information Nov-3 1-202 0 Muehl Glenn. [address] [place] [address], [address], [place], [address], [place]. tel:[phone] [place] [address] [address], [place], [address], [place] tel:[phone] [place] No Information Nov-3 0-202 0 Muehl Glenn. [address] [place] [address], [address], [place], [address], [place]. tel:[phone] [place] [address] [address], [place], [address], [place] tel:[phone] [place] No Information Nov- 8-202 0 Muehl Glenn. [address] [place] [address], [address], [place], [address], [place]. tel:[phone] [place] [address] [address], [place], [place], [address], [place] tel:[phone] [place] No Information 2 4-202 0 Muehl Glenn. [address] [place] [address], [address], [place], [address], [place]. tel:[phone] [place] [address] [address], [place], [address], [place] tel:[phone] [place] No Information Nov-2 3-202 0 Muehl Glenn. [address] [place] [address], [address], [place], [address], [place]. tel:[phone] [place] [address] [address], [place], [place], [address], [place] tel:[phone] [place] No Information Nov-2 1-202 0 Muehl Glenn. [address] [place] [address], [address], [place], [address], [place]. tel:[phone] [place] [address] [address], [place], [place], [address], [place] tel:[phone] [place] No Information Nov-1 6-202 0 Muehl Glenn. [address] [place] [address], [address], [place], [facility], [place]. tel:[phone] [place] [address] [address], [place], [address], [place] tel:[phone] [place] No Information Nov-1 4-202 0 Muehl Glenn. [address] [place] [address], [address], [place], [facility], [place]. tel:[phone] [place] [address] [address], [place], [place], [address], [place] tel:[phone] [place] No Information Nov-1 0-202 0 Muehl Glenn. [address] [place] [address], [address], [place], [facility], [place]. tel:[phone] [place] [address] [address], [place], [place], [address], [place] tel:[phone] [place] No Information Nov-0 9-202 0 Muehl Gelnn. [address] [place] [address], [address], [place], [facility], [place]. tel:[phone] [place] [address] [address], [place], [place], [address], [place] tel:[phone] [place] No Information Nov-0 7-202 0 Muehl Glenn. [address] [place] [address], [address], [place], [facility], [place]. tel:[phone] [place] [address] [address], [place], [place], [address], [place] tel:[phone] [place] No Information Nov-0 2-202 0 Muehl Glenn. [address] [place] [address], [address], [place], [facility], [place]. tel:[phone] [place] [address] [address], [place], [place], [address], [place] tel:[phone] [place] No Information Robert-3 0-202 0 Muehl Glenn. [address] [place] [address], [address], [place], [facility], [place]. tel:[phone] [place] [address], [place], [place], [address], tel:[phone] [place] No Information Robert-2 9-202 0 Muehl Glenn. [address] [place] [address], [address], [place], [facility], [place]. tel:[phone] [place] [address], [place], [address], [place] tel:[phone] [place] No Information Robert-2 6-202 0 Muehl Glenn. [address] [place] [address], [address], [place], [facility], [place]. tel:[phone] [place] [address], [place], [address], [place] tel:[phone] [place] No Information Robert-2 5-202 0 Lehnen Velma. . [address], [place], [place], [address], [place] tel:[phone] [place] No Information Robert-2 3-202 0 Muehl Glenn. [address] [place] [address], [address], [place], [facility], [place]. tel:[phone] [place] [address], [place], [place], [address], [place] tel:[phone] [place] No Information Robert-1 9-202 0 Muehl Glenn. [address] [place] [address], [address], [place], [facility], [place]. tel:[phone] [place] [address], [place], [place], [address], tel:[phone] [place] No Information Robert-1 8-202 0 Muehl Glenn. [address] [place] [address], [address], [place], [facility], [place]. tel:[phone] [place] [address] 300, [place], [place], [address], tel:[phone] [place] No Information Oct-1 6-202 0 Muehl Glenn. [address] [place] [address], [address], [place], [facility], . tel:[phone] [place] [address] 300, [place], [place], [address], tel:[phone] [place] No Information 1 2-202 0 Muehl Glenn. [address] [place] [address], [address], [place] [address], . tel:[phone] [place] [address] 300, [place], [address], tel:[phone] [place] No Information 1-202 0 Muehl Glenn. [address] [place] [address], [address], [place], [facility], . tel:[phone] [place] [address] 300, [place], [place], [address], tel:[phone] [place] No Information Robert-0 9-202 0 Muehl Glenn. [address] [place] [address], [address], [place] [address], . tel:[phone] [address] [place] [address], [place], [address], tel:[phone] [place] No Information Robert-0 5-202 0 Muehl Glenn. [address] [place] [address], [address] [address], . tel:[phone] Family History Family Member Type Diagnosis Age At Onset No Information Payers Payer name Insurance type Covered republican ID [id number] skip(s) [facility] [id number] Social History Type Description Quantity Date Captured [...]
--- OUTSIDE RECORDS SUMMARY | 2024-08-03 14:47 | XMS_ITS | Encounter Summary ---
Author Organization [facility] Address [address] [place] [address] Care Team Providers Care Manager Hair Name Role Phone Lamberto Barker MD Primary Care Provider [phone] Encounter Details Date Type Department Care Team (Late st Contact Info) Description 10/21/2022 [employer] Message Enc [facility], [address] [address] [facility], [facility] Provider Stress test Social History Tobacco [...] often do you attend chur ch or taoist services? 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 Answer Date of Assessment Author Status No 06/20/2021 1:29 AM CITY CONTROLLER Activ e * Do you have serious [...] as of this encounter Care Teams Manager Hair Relationship Specialty Start Date End Date Lamberto Barker MD [address] [place] [address] PCP - General INTERNAL MEDICINE 05/08/19 documented as of this encounter
--- OUTSIDE RECORDS SUMMARY | 2024-08-03 14:47 | XMS_ITS | Encounter Summary ---
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
--- NOTE | 2024-08-03 14:48 | ECG_ITS ---
Test Date: 2024-08-03 15:02:03 Measurements Intervals Sharon Rate: 106 P: 57 VT: 134 QRS: 23 QRSD: 80 T: 60 QT: 304 QTc: 405 Interpretive Statements SINUS TACHYCARDIA POSSIBLE LEFT ATRIAL ENLARGEMENT [-0.1mV P-WAVE IN V1/V2] NONSPECIFIC T-WAVE ABNORMALITY ABNORMAL RHYTHM ECG Compared to ECG 06/23/2024 10:04:45 NO SIGNIFICANT CHANGE Electronically Signed On 08-03-2024 16:07:25 TWISTING FRAME OPERATOR by Jack Lopes M.D.
--- OUTSIDE RECORDS SUMMARY | 2024-08-03 14:48 | XMS_ITS | Encounter Summary ---
Author Organization [facility] Address [address] [place] [address] Care Team Providers Care Observer Helper Name Role Phone Don Walton Primary Care Provider Encounter Details Date Type Department Care Team (Late st Contact Info) Description 01/25/2022 Orders Only [facility] [address] [place] [phone] Jordana Chambers MD [address] [place] [address] Social History Tobacco Use Types Packs/Day Years [...] often do you attend chur ch or bahai services? 1 to 4 times per year 01/27/2022 Do you belong to any clubs o r organizations such as congregation groups, unions, fraternal or athletic groups, or [...] slept in a residential (including now)? No 01/27/2022 Sex and Gender Information Value Date Recorded Sex Assigned at Not on file Legal Sex Male 1:58 AM SPOT REMOVER Gender Identity Not on file Sexual Orientation [...] COVID: Suspected 06/06/2023 06/06/2023 06/06/2023 9:39 PM SPOT REMOVER documented as of this encounter Care Teams Observer Helper Relationship Specialty Start Date End Date Don Walton PA [address] [facility] [address] [facility] [address] [place] [address] PCP - General Physician Service Tester 12/28/21 documented as of this encounter
--- OUTSIDE RECORDS SUMMARY | 2024-08-03 14:48 | XMS_ITS | Referral Summary ---
Author Organization [facility] Address [address] [place] [address] Care Team Providers Care Floor Mechanic Name Role Phone Don Walton Primary Care Provider Encounters Date Type Department Care Team Description 07/23/2024 10:42 AM MARKETING ADMIN - 07/23/2024 3:32 PM [facility] Emergency [facility] Department [address] [place] [address] Discharge Disposition: Left without being seen from Last 3 Months Allergies Active Allergy Reactions Criticality Noted Date Comments Ciprofloxacin Hives Medium 06/02/2023 Patient stated he has previously tolerated PO. 06/02/23 had redness and hives after IV dose. Penicillins Rash Medium 05/08/2019 Bhfrbebhpjmd-Hcqxygzjod-Anq trs Angioedema High 09/17/[address] [...] daily 30 patch 01/12/20 22 Active multivit ohrbrriv-pary-EA-c alcium (THERA-M) 9 mg iron-400 mcg tabletIndications: [...] 06/10/2023 Assessment & Plan (06/12/2023 2:18 PM MARKETING ADMIN): Patient reports feeling constipated, gassy and bloated. [...] 06/08/2023 Assessment & Plan (06/09/2023 1:55 PM MARKETING ADMIN): Resolved. Acute pancreatitis, unspecif ied complication status, unspecified pancreatitis type 06/04/2023 Assessment & Plan (06/05/2023 12:45 PM MARKETING ADMIN): Longstanding bouts of pancreatitis originally from EtOH [...] 06/04/2023 Assessment & Plan (06/05/2023 12:48 PM MARKETING ADMIN): Likely from pancreatitis. Also tender to palpation initially so may be a musculoskeletal component from dry heaving. Trops negative. EKG no ischemic changes. He reports hx of UT in the past, unclear circumstances. He had an exercise stress test in spring at an outside facility that he says was normal. Cont ASA. Gram-negative bacteremia 04/11/2023 Assessment & Plan (04/13/2023 7:02 PM MARKETING ADMIN): - due to cholangitis - BCx + for E coli and K. Pneumoniae - repeat BCx drawn 04/11, ngtd - pansensitive organisms - d/c home today with flagyl/cipro Cholangitis 04/10/2023 Assessment & Plan (04/12/2023 6:21 PM MARKETING ADMIN): - Improving - 04/10 ERCP - removal of two migrates stents with biliary obstruction and replaced with 2 new stents in biliary stricture - PRN analgesics and antiemetics Assessment & Plan (04/10/2023 2:40 AM MARKETING ADMIN): -meets [place] criteria for acute cholangitis based [...] less likely MRCP------> GI consult ordered in [facility] -NPO x sips, ice chips -IVFs overnight -PRN analgesics and antiemetics -repeat CBC, BMP, HFP in AM 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 Encounter for removal of biliary stent 3 Acute recurrent pancreatitis 01/26/2022 Post-ERCP acute pancreatitis 01/04/2022 Assessment & Plan (06/13/2023 2:35 PM MARKETING ADMIN): Recently admitted from 06/04-06/05/23 after ERCP on [...] (01/05/2022): Added automatically from request for surgery [id number] Assessment & Plan (04/11/2023 3:57 PM MARKETING ADMIN): - improving -2/2 stent migration and resultant biliary obstruction Assessment & Plan (04/10/2023 2:27 AM MARKETING ADMIN): -2/2 stent migration and resultant biliary obstruction -mgmt as above -repeat HFP in AM 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 Overview (11/30/2021): Added automatically from request for surgery [id number] Encounter for replacement of biliary stent 11/30 Overview (11/30/2021): Added automatically from request for surgery [id number] 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 Pancreatic pseudocyst 07/26/2021 Severe sepsis 07/08/2021 Assessment & Plan (07/13/2021 9:43 AM MARKETING ADMIN): Pt elevated temp on 07/07 overnight 38.1 [...] infection Assessment & Plan (07/12/2021 9:40 AM MARKETING ADMIN): Pt elevated temp on 2 overnight 38.1 [...] infection Assessment & Plan (07/11/2021 10:55 AM MARKETING ADMIN): Pt elevated temp on 2 overnight 38.1 [...] bed Assessment & Plan (07/10/2021 9:10 AM MARKETING ADMIN): Pt elevated temp on 07/07 overnight 38.1 [...] daily Assessment & Plan (07/09/2021 2:23 PM MARKETING ADMIN): Pt elevated temp on 2 overnight 38.1 [...] daily Assessment & Plan (07/08/2021 1:53 PM MARKETING ADMIN): Pt elevated temp overnight 38.1 max, hypotensive [...] 07/07/2021 Assessment & Plan (07/13/2021 9:43 AM MARKETING ADMIN): Dobbhoff placed 2/10, tube feeding to initiated Osmolite 1.5 at 55mL/hr over 24h via NJ tube continuous via pump. Flush with 150mL water q4h. Now at goal of 55cc/hr. Can cycle at home as instructed. Will continue TF until follow up with GI as outpatient Assessment & Plan (07/12/2021 9:39 AM MARKETING ADMIN): Dobbhoff placed 2/10, tube feeding to initiated Osmolite 1.5 at 55mL/hr over 24h via [place] tube continuous via pump. Flush with 150mL water q4h. Now at goal of 55cc/hr. Can cycle at home as instructed. Will continue TF until follow up with GI as outpatient Assessment & Plan (07/11/2021 10:55 AM MARKETING ADMIN): Dobbhoff placed 2/10, tube feeding to initiated [...] Phos Assessment & Plan (07/10/2021 9:08 AM MARKETING ADMIN): Dobbhoff placed 07/08, tube feeding to initiated [...] Phos Assessment & Plan (07/09/2021 2:25 PM MARKETING ADMIN): Dobbhoff placed 07/08, tube feeding to initiated [...] prn Assessment & Plan (07/08/2021 1:11 PM MARKETING ADMIN): Dobbhoff placed 07/08, tube feeding to initiate TF recommendations: Goal: Osmolite 1.5 at 55mL/hr over 24h via [place] tube continuous via pump. Flush with 150mL water q4h. Initiate TF at 10mL/hr and increase by 10mL q4h until goal rate is reached Chronic pancreatitis, unspecified pancreatitis t ype 07/06/2021 Assessment & Plan (07/13/2021 9:42 AM MARKETING ADMIN): Ongoing acute episode of (developing) chronic pancreatitis. [...] home Assessment & Plan (07/12/2021 9:38 AM MARKETING ADMIN): Ongoing acute episode of (developing) chronic pancreatitis. [...] 07/13 Assessment & Plan (07/11/2021 10:53 AM MARKETING ADMIN): Ongoing acute episode of (developing) chronic pancreatitis. [...] discharge Assessment & Plan (07/10/2021 9:07 AM MARKETING ADMIN): Ongoing acute episode of developing chronic pancreatitis. [...] feedings Assessment & Plan (07/09/2021 2:30 PM MARKETING ADMIN): Ongoing acute episode of chronic pancreatitis. Just [...] CTM Assessment & Plan (07/08/2021 1:49 PM MARKETING ADMIN): Ongoing acute episode of chronic pancreatitis. Just [...] plan Assessment & Plan (07/07/2021 11:22 AM MARKETING ADMIN): Ongoing acute episode of chronic pancreatitis. Just [...] plan Assessment & Plan (07/06/2021 5:30 PM MARKETING ADMIN): Ongoing acute episode of chronic pancreatitis. Just [...] 07/06/2021 Assessment & Plan (07/13/2021 9:42 AM MARKETING ADMIN): Likely ATN related to hypotensive episode. Cr peaked at Cr at 2.31, now back to baseline after aggressive IVF and now tolerating TF. Assessment & Plan (07/12/2021 9:36 AM MARKETING ADMIN): Likely ATN related to hypotensive episode. Cr peaked at Cr at 2.31, now back to baseline after aggressive IVF and now tolerating TF. Assessment & Plan (07/11/2021 10:54 AM MARKETING ADMIN): Likely ATN related to hypotensive episode. Cr peaked at Cr at 2.31, now back to baseline after aggressive IVF, continue to monitor bmp, continue fluids Assessment & Plan (07/10/2021 9:08 AM MARKETING ADMIN): Likely ATN related to hypotensive episode. Cr peaked at Cr at 2.31, now back to baseline after aggressive IVF, continue to monitor bmp, continue fluids Assessment & Plan (07/09/2021 2:29 PM MARKETING ADMIN): Cr at baseline after aggressive IVF, continue to monitor bmp, continue fluids Assessment & Plan (07/08/2021 1:10 PM MARKETING ADMIN): Cr baseline 0.8 now up to 1.3 on arrival due to po intolerance Aggressive IVF will monitor urine output Today net fluid intake 191 Cr trended up to 2.31 continue aggressive fluids Daily bmp Continue IVF Assessment & Plan (07/07/2021 11:19 AM MARKETING ADMIN): Cr baseline 0.8 now up to 1.3 on arrival due to po intolerance Aggressive IVF will monitor urine output Today net fluid intake 191 Cr 1.05 improving with fluids Daily bmp Continue IVF Assessment & Plan (07/06/2021 5:39 PM MARKETING ADMIN): Cr baseline 0.8 now up to 1.3 on arrival due to po intolerance Aggressive IVF will monitor urine output Alcohol dependence 06/25/2021 Assessment & Plan (06/07/2023 5:01 AM MARKETING ADMIN): Last drink on and he reports being [...] program Assessment & Plan (07/13/2021 9:42 AM MARKETING ADMIN): Has a long history of alcohol use [...] Group Assessment & Plan (07/12/2021 9:36 AM MARKETING ADMIN): Has a long history of alcohol use [...] Group Assessment & Plan (07/11/2021 10:54 AM MARKETING ADMIN): Has a long history of alcohol use [...] Group Assessment & Plan (07/10/2021 9:05 AM MARKETING ADMIN): Has a long history of alcohol use [...] Group Assessment & Plan (07/09/2021 2:33 PM MARKETING ADMIN): Has a long history of alcohol use [...] Group Assessment & Plan (07/08/2021 1:06 PM MARKETING ADMIN): Has a long history of alcohol use with dependence. He states he has not had a drink since before his ERCP 06/22/2021 and has been on Vivitrol injections. His ethanol level on arrival to the ED is negative Plan to continue EtOH cessation and support with outpatient naltrexone therapy. Assessment & Plan (07/07/2021 11:13 AM MARKETING ADMIN): Has a long history of alcohol use with dependence. He states he has not had a drink since before his ERCP 06/22/2021 and has been on Vivitrol injections. His ethanol level on arrival to the ED is negative Plan to continue EtOH cessation and support with outpatient naltrexone therapy. Assessment & Plan (07/06/2021 5:22 PM MARKETING ADMIN): Has a long history of alcohol use with dependence. He states he has not had a drink since before his ERCP 06/22/2021 and has been on Vivitrol injections. His ethanol level on arrival to the ED is negative Plan to continue EtOH cessation and support with outpatient naltrexone therapy Assessment & Plan (06/28/2021 11:39 AM MARKETING ADMIN): Long standing hx of alcohol dependence with [...] needed Assessment & Plan (06/27/2021 11:47 AM MARKETING ADMIN): Long standing hx of alcohol dependence with [...] needed Assessment & Plan (06/26/2021 11:59 AM MARKETING ADMIN): Long standing hx of alcohol dependence with [...] 06/25/2021 Assessment & Plan (06/07/2023 5:06 AM MARKETING ADMIN): Markedly hypertensive on ED arrival in the setting of pain -Continue home Amlodipine 10 mg qday and losartan 25 mg qday Assessment & Plan (06/05/2023 12:47 PM MARKETING ADMIN): Hypertensive initially from pain. Improved today. Cont home meds. Assessment & Plan (04/12/2023 6:21 PM MARKETING ADMIN): -continue norvasc Assessment & Plan (04/10/2023 2:31 AM MARKETING ADMIN): -resume norvasc in AM Assessment & Plan (01/11/2022 11:23 AM CDT): Continue norvasc Assessment & Plan (01/10/2022 11:40 AM CDT): Continue norvasc Assessment & Plan (07/13/2021 9:43 AM MARKETING ADMIN): Continue to hold home lisinopril on account of recent hypotension/JOSE. With low normotensive BP will discontinue lisinopril. Follow up with PCP in 2-4 weeks to re evaluate restarting if needed Assessment & Plan (07/12/2021 9:38 AM MARKETING ADMIN): Continue to hold home lisinopril on account of recent hypotension/JOSE. BP normal, may not require lisinopril on discharge. Assessment & Plan (07/11/2021 10:54 AM MARKETING ADMIN): Continue to hold home lisinopril on account of recent hypotension/JOSE. BP normal, may not require lisinopril on discharge. Assessment & Plan (07/10/2021 9:06 AM MARKETING ADMIN): Continue to hold home lisinopril on account of recent hypotension Assessment & Plan (07/09/2021 2:32 PM MARKETING ADMIN): Continue to hold home lisinopril until more stable BP Assessment & Plan (07/08/2021 1:06 PM MARKETING ADMIN): BP hypotensive overnight hold antihypertensives at this time. Assessment & Plan (07/07/2021 11:15 AM MARKETING ADMIN): BP on remain normotensive Continue lisinopril and pain control Assessment & Plan (07/06/2021 5:30 PM MARKETING ADMIN): BP on arrival normotensive Continue lisinopril and pain control Assessment & Plan (06/28/2021 11:39 AM MARKETING ADMIN): Continue home lisinopril 40 mg -Monitor BP -BP stable Assessment & Plan (06/27/2021 11:48 AM MARKETING ADMIN): Continue home lisinopril 40 mg -Monitor BP/Cr -BP stable Assessment & Plan (06/25/2021 4:55 PM MARKETING ADMIN): Continue home lisinopril 40 mg -Monitor BP/Cr -Daily BMP Tobacco abuse 06/25/2021 Major depressive disorder 06/25/2021 Assessment & Plan (06/07/2023 5:07 AM MARKETING ADMIN): Continue home duloxetine 30 mg BID and trazodone 50 mg qhs Assessment & Plan (06/04/2023 11:58 AM MARKETING ADMIN): Cont home meds Assessment & Plan (01/11/2022 11:23 AM CDT): Continue duloxetine scheduled and trazodone prn Assessment & Plan (01/10/2022 11:40 AM CDT): Continue duloxetine scheduled and trazodone prn Assessment & Plan (07/13/2021 9:43 AM MARKETING ADMIN): Most certainly contributing to his long standing alcohol use. Continue home meds duloxetine and trazodone Assessment & Plan (07/12/2021 9:38 AM MARKETING ADMIN): Most certainly contributing to his long standing alcohol use. Continue home meds duloxetine and trazodone Assessment & Plan (07/11/2021 10:54 AM MARKETING ADMIN): Most certainly contributing to his long standing alcohol use. Continue home meds duloxetine and trazodone Assessment & Plan (07/10/2021 9:06 AM MARKETING ADMIN): Most certainly contributing to his long standing alcohol use. Continue home meds duloxetine and trazodone Assessment & Plan (07/09/2021 2:30 PM MARKETING ADMIN): Most certainly contributing to his long standing alcohol use now with cessation Continue home meds duloxetine and trazodone Assessment & Plan (07/08/2021 1:09 PM MARKETING ADMIN): Most certainly contributing to his long standing alcohol use now with cessation Continue home meds duloxetine and trazodone Assessment & Plan (07/07/2021 11:16 AM MARKETING ADMIN): Most certainly contributing to his long standing alcohol use now with cessation Continue home meds duloxetine and trazodone Assessment & Plan (07/06/2021 5:32 PM MARKETING ADMIN): Most certainly contributing to his long standing alcohol use now with cessation Continue home meds duloxetine and trazodone Assessment & Plan (06/28/2021 11:39 AM MARKETING ADMIN): Continue home Trazodone 50 mg, Cymbalta 30 mg Resume Biofeedback at discharge Assessment & Plan (06/27/2021 11:48 AM MARKETING ADMIN): Continue home Trazodone 50 mg, Cymbalta 30 mg Resume Biofeedback at discharge Assessment & Plan (06/25/2021 4:57 PM MARKETING ADMIN): Continue home Trazodone 50 mg, Cymbalta 30 mg Resume Biofeedback at discharge Pancreatic duct obstruction 06/11/2021 Overview (06/11/2021): Added automatically from request for surgery [id number] Abdominal pain 06/11/2021 Overview (06/11/2021): Added automatically from request for surgery [id number] Necrotizing pancreatitis 10/21/2019 Therapeutic opioid induced constipation 10/21/19 20 Assessment & Plan (07/13/2021 9:44 AM MARKETING ADMIN): Continue bowel regimen Assessment & Plan (07/12/2021 9:41 AM MARKETING ADMIN): Bowel regimen ordered without BM. Will titrate bowel regimen Assessment & Plan (07/11/2021 10:58 AM MARKETING ADMIN): Bowel regimen ordered Assessment & Plan (06/28/2021 11:39 AM MARKETING ADMIN): Pt states no BM for the past week. Likely due to decrease intake and vomiting, possible contribution from opioids -daily bowel regimen, had BM Monday Assessment & Plan (06/27/2021 11:48 AM MARKETING ADMIN): Pt states no BM for the past week. Likely due to decrease intake and vomiting, possible contribution from opioids -daily bowel regimen Assessment & Plan (06/26/2021 12:00 PM MARKETING ADMIN): Pt states no BM for the past week. Likely due to decrease intake and vomiting, possibly contribution from opioids -daily bowel regimen -clear liquid diet Acute pancreatitis 05/08/2019 Assessment & Plan (06/28/2021 11:38 AM MARKETING ADMIN): Hx of chronic pancreatis starting 3 years [...] prioritized. Assessment & Plan (06/27/2021 11:46 AM MARKETING ADMIN): Hx of chronic pancreatis starting 3 years [...] prioritized. Assessment & Plan (06/26/2021 11:59 AM MARKETING ADMIN): Hx of chronic pancreatis starting 3 years [...] 04/11/2023 Assessment & Plan (04/10/2023 2:38 AM MARKETING ADMIN): -migrated stent likely etiology of presenting symptoms and lab, CT findings -will likely need ERCP for stent exchange on Monday Metabolic acidosis, increased anion gap (IAG) 06/25/19 22 07/09/2021 Assessment & Plan (07/09/2021 2:31 PM MARKETING ADMIN): Dobbhoff placed 07/08, to start tube feeding TF recommendations: Goal: Osmolite 1.5 at 55mL/hr over 24h via [place] tube continuous via pump. Flush with 150mL water q4h. Initiate TF at 10mL/hr and increase by 10mL q4h until goal rate is reached Assessment & Plan (07/08/2021 1:49 PM MARKETING ADMIN): Due to starvation in the setting of [...] reached Assessment & Plan (07/07/2021 11:16 AM MARKETING ADMIN): Due to starvation in the setting of intolerance to PO for the last 3-4 days. Will provide aggressive IVF Continue to discuss enteral feedings with the patient going forward, currently pt is refusing, GI will readdress with pt today with goal for placement today should pt agree. Change IVF to D5LR Assessment & Plan (07/06/2021 5:38 PM MARKETING ADMIN): Due to starvation in the setting of intolerance to PO for the last 3-4 days. Will provide aggressive IVF Continue to discuss enteral feedings with the patient going forward Assessment & Plan (06/28/2021 11:39 AM MARKETING ADMIN): Likely dehydration from pancreatitis, n/v and poor intake. Heme concentrated hgb 14.9 (baseline 8-9), wbc 14.4 no source of infection likely heme concentrated, anion gap 20, UA ketone +1. Resolved with IVF Assessment & Plan (06/27/2021 11:47 AM MARKETING ADMIN): Likely dehydration from pancreatitis, n/v and poor intake. Heme concentrated hgb 14.9 (baseline 8-9), wbc 14.4 no source of infection likely heme concentrated, anion gap 20, UA ketone +1. Resolved with IVF Assessment & Plan (06/26/2021 12:00 PM MARKETING ADMIN): Likely dehydration from pancreatitis, n/v and poor [...] drink = 0.6 oz pur e alcohol) [facility] Utilities Answer Date Recorded In the [...] any clubs o r organizations such as orthodoxy groups, unions, fraternal or athletic groups, or [...] in a nursing home (including now)? No 09/21/2023 Personal Safety Answer Date Recorded Have you ever been in or are you currently in a harmful physical or emotional relationship or is someone making you feel afraid or unsafe? Denies 07/23/2024 Sex and Gender Information Value Date Recorded Sex Assigned at Not on file Legal Sex Male 1:58 AM MARKETING ADMIN Gender Identity Not on file Sexual Orientation Not on file Occupation Industry Job Start Date Job End Date disability Not on file Not on file Not on file Last Filed Vital Signs Vital Sign Reading Time Taken Comments Blood Pressure 125/77 07/23/2024 10:51 AM MARKETING ADMIN Pulse 100 07/23/2024 10:51 AM MARKETING ADMIN Temperature 36.4 C (97.6 F) 07/23/2024 10:51 AM MARKETING ADMIN Respiratory Rate 16 07/23/2024 10:51 AM MARKETING ADMIN Oxygen Saturation 99% 07/23/2024 10:51 AM MARKETING ADMIN Inhaled Oxygen Concentration - - Weight 86.2 kg (190 lb) 07/23/2024 10:51 AM MARKETING ADMIN Height 182.9 cm (6') 07/23/2024 10:51 AM MARKETING ADMIN Body Mass Index 25.77 07/23/2024 10:51 AM MARKETING ADMIN Plan of Treatment Not on file Medical Devices Implanted Type Area [employer]or Device Identifier Shelf Expiration Date Model / Serial / Lot [employer] Kemal 8.5 Fr Nasal Biliary Catheter [id number] - [id number] Implanted:Qty: 1 on 01/26/2022 by Kenneth Loya MD at [facility] Catheter [employer] 06/22/2024 [id number] / / [id number] [employer] 10fr 5cm Biliary Double Pigtail Stent [id number] - [id number] Implanted:Qty: 1 on 09/21/2023 by Kenneth Loya MD at [facility] Stent N/A: Bile Duct [employer] 08/14/2025 [id number] / / [id number] [employer] 10fr 5cm Biliary Stent [id number] - [id number] Implanted:Qty: 1 on 09/21/2023 by Kenneth Loya MD at [facility] Stent N/A: Bile Duct [employer] 07/03/2025 [id number] / / [id number] [employer] 10fr 5cm Biliary Double Pigtail Stent [id number] - [id number] Implanted:Qty: 1 on 09/21/2023 by Kenneth Loya MD at [facility] Stent N/A: Bile Duct [employer] 08/23/2025 [id number] / / [id number] [employer] 10fr 5cm Biliary Double Pigtail Stent [id number] - [id number] Implanted:Qty: 1 on 09/21/2023 by Kenneth Loya MD at [facility] Stent N/A: Bile Duct [employer] 08/23/2025 [id number] / / [id number] [employer] 10fr 5cm Biliary Double Pigtail Stent [id number] - [id number] Implanted:Qty: 1 on 09/21/2023 by Kenneth Loya MD at [facility] Stent N/A: Bile Duct [employer] 08/14/2025 [id number] / / [id number] [employer] 10fr 7cm Biliary Stent [id number] - [id number] Implanted:Qty: 1 on 04/10/2023 by John De Anda MD at [facility] [employer] [id number] 12/13/2024 [id number] / / [id number] [employer] 10fr 7cm Biliary Stent [id number] - [id number] Implanted:Qty: 1 on 04/10/2023 by John De Anda MD at [facility] [employer] [id number] 02/07/2025 [id number] / / [id number] Explanted Type Area Masonry Contractor Device Identifier Shelf Expiration Date Model / Serial / Lot [employer] [id number] Cotton-Young 10fr 7cm Taper Tip Guidewire Proximal Distal Flap - [id number] Implanted:Qty: 1 on 08/04/2021 by Kenneth Loya MD at [facility] Explanted:Qty: 1 on 08/30/2021 at [facility] Stent N/A: Bile Duct [employer] 01/28/2024 [id number] / / [id number] A[employer] 10 X 10 Stent Delivery System [id number] - [id number] Implanted:Qty: 1 on 08/04/2021 by Kenneth Loya MD at [facility] Explanted:Qty: 1 on 08/30/2021 at [facility] Stent N/A: Bile Duct [employer] 10/13/2022 [id number] / / [id number] [employer] Geenen 7fr 7cm Positioning Sleeve Push Catheter Guidewire [id number] - [id number] Implanted:Qty: 1 on 08/30/2021 at [facility] Explanted:Qty: 1 on 11/01/2021 by Kenneth Loya MD at [facility] Stent N/A: Pancreas [employer] 11/06/2023 [id number] / / [id number] [employer] 10fr 5cm Biliary Stent [id number] - [id number] Implanted:Qty: 1 on 01/26/2022 by Kenneth Loya MD at [facility] Explanted:Qty: 1 on 04/06/2022 by Kenneth Loya MD at [facility] Stent [employer] 11/16/2023 [id number] / / [id number] [employer] Advanix Naviflex 7fr 9cm Radiopaque [place] Endo Marker Color Coded [id number] - [id number] Implanted:Qty: 1 on 01/26/2022 by Kenneth Loya MD at [facility] Explanted:Qty: 1 on 04/06/2022 at [facility] Stent [employer] 04/16/2023 [id number] / / [id number] [employer] Advanix 8.5fr 7cm Rapid Exchange Temporary [place] Stent [id number] - [id number] Implanted:Qty: 1 on 04/06/2022 by Kenneth Loya MD at [facility] Explanted:Qty: 1 on 07/06/2022 by Kenneth Loya MD at [facility] Stent N/A: Pancreas [employer] 10/26/2023 [id number] / / [id number] [employer] Advanix 8.5fr 7cm Rapid Exchange Temporary [place] Stent [id number] - [id number] Implanted:Qty: 1 on 04/06/2022 by Kenneth Loya MD at [facility] Explanted:Qty: 1 on 07/06/2022 by Kenneth Loya MD at [facility] Stent N/A: Pancreas [employer] 10/26/2023 [id number] / / [id number] [employer] 10fr 5cm Biliary Stent [id number] - [id number] Implanted:Qty: 1 on 09/08/2022 by Kenneth Loya MD at [facility] Explanted:Qty: 1 on 11/03/2022 by Kenneth Loya MD at [facility] Stent N/A: Bile Duct [employer] 08/07/2024 [id number] / / [id number] [employer] 10fr 5cm Biliary Stent [id number] - [id number] Implanted:Qty: 1 on 09/08/2022 by Kenneth Loya MD at [facility] Explanted:Qty: 1 on 11/03/2022 by Kenneth Loya MD at [facility] Stent N/A: Bile Duct [employer]al 05/04/2024 [id number] / / [id number] [employer] Cartwright Flexi-Stent 7fr 7cm Small Pigtail Flexible .035in Stent 6574 - [id number] Implanted:Qty: 1 on 09/08/2022 by Kenneth Loya MD at [facility] Explanted:Qty: 1 on 11/03/2022 by Kenneth Lyoa MD at [facility] Stent N/A: Bile Duct [employer] 05/28/2027 [id number] / / [id number] [employer] Geenen 8.5fr 9cm Drain Obstructed Positioning Sleeve Pushing [id number] - [id number] Implanted:Qty: 1 on 04/06/2022 by Kenneth Loya MD at [facility] Explanted:Qty: 1 on 01/05/2023 by Kenneth Loya MD at [facility] Stent N/A: Pancreas [employer] 05/03/2024 [id number] / / [id number] [employer]wright Flexi-Stent 7fr 7cm Small Pigtail Flexible .035in Stent 6574 - [id number] Implanted:Qty: 1 on 11/03/2022 by Kenneth Loya MD at [facility] Explanted:Qty: 1 on 01/05/2023 by Kenneth Loay MD at [facility] Stent N/A: Pancreas [employer] Inc 05/28/2027 [id number] / / [id number] [employer] Kemal 10fr 5cm Biliary Stent [id number] - [id number] Implanted:Qty: 1 on 11/03/2022 by Kenneth Loya MD at [facility] Explanted:Qty: 1 on 01/05/2023 at [facility] Stent N/A: Bile Duct [employer] Kemal 08/15/2024 [id number] / / [id number] [employer] Cotton-Young 10fr 5cm Taper Tip Soft Proximal Distal Flap Gentle [id number] - [id number] Implanted:Qty: 1 on 11/03/2022 by Kenneth Loya MD at [facility] Explanted:Qty: 1 on 01/05/2023 by Kenneth Loya MD at [facility] Stent N/A: Bile Duct [employer] 08/10/2025 [id number] / / [id number] [employer] [facility] Cartwright Flexi-Stent 4fr 7cm Small Pigtail Flexible .025in Stent 6544 - [id number] Implanted:Qty: 1 on 01/05/2023 by Kenneth Loya MD at [facility] Explanted:Qty: 1 on 06/02/2023 at [facility] Stent N/A: Pancreas [employer] 07/27/2027 [id number] / / [id number] Description:Not present on t his procedure [employer] Kemal 10fr 7cm Biliary Stent [id number] - [id number] Implanted:Qty: 1 on 01/05/2023 by Kenneth Loya MD at [facility] Explanted:Qty: 1 on 06/02/2023 by Jero Soto MD at [facility] Stent N/A: Bile Duct [employer] 12/13/2024 [id number] / / [id number] [employer] 10fr 7cm Biliary Stent [id number] - [id number] Implanted:Qty: 1 on 01/05/2023 by Kenneth Loya MD at [facility] Explanted:Qty: 1 on 06/02/2023 by Jero Soto MD at [facility] Stent N/A: Bile Duct [employer] 12/13/2024 [id number] / / [id number] [employer] 10fr 5cm Biliary Double Pigtail Stent [id number] - [id number] Implanted:Qty: 1 on 06/02/2023 by Kenneth Loya MD at [facility] Explanted:Qty: 1 on 09/21/2023 by Kenneth Loya MD at [facility] Stent N/A: Bile Duct [employer] 04/30/2025 [id number] / / [id number] [employer] 10fr 5cm Biliary Double Pigtail Stent [id number] - [id number] Implanted:Qty: 1 on 06/02/2023 by Kenneth Loya MD at [facility] Explanted:Qty: 1 on 09/21/2023 by Kenneth Loya MD at [facility] Stent N/A: Bile Duct [employer] 04/30/2025 [id number] / / [id number] [employer] 10fr 5cm Biliary Stent [id number] - [id number] Implanted:Qty: 1 on 06/02/2023 by Kenneth Loya MD at [facility] Explanted:Qty: 1 on 09/21/2023 by Kenneth Loya MD at [facility] Stent N/A: Bile Duct [employer] 02/28/2025 [id number] / / [id number] [employer] 10fr 5cm Biliary Double Pigtail Stent [id number] - [id number] Implanted:Qty: 1 on 06/02/2023 by Kenneth Loya MD at [facility] Explanted:Qty: 1 on 09/21/2023 by Kenneth Loya MD at [facility] Stent N/A: Bile Duct [employer] 04/30/2025 [id number] / / [id number] [employer] [id number] Advanix 10fr 5cm Rapid Exchange Temporary [place] Stent - [id number] Implanted:Qty: 1 on 06/18/2021 by Kenneth Loya MD at [facility] Explanted:Qty: 1 on 08/30/2021 at [facility] [employer] 06/30/2022 [id number] / / [id number] Description:Removed prior [employer] Advanix Od10 Fr L7 Cm 1; Temporary Duodenal Bend Stent Biliary Pl [id number] - [id number] Implanted:Qty: 1 on 08/30/2021 at [facility] Explanted:Qty: 1 on 11/01/2021 by Kenneth Loya MD at [facility] N/A: Bile Duct [employer] 06/25/2022 [id number] / / [id number] [employer] Advanix Naviflex 10fr 9cm Lead Joana Radiopaque Flexible [id number] - [id number] Implanted:Qty: 1 on 11/01/2021 by Kenneth Loya MD at [facility] Explanted:Qty: 1 on 01/05/2022 by Contreras Girard MD at [facility] N/A: Pancreas [employer] 07/18/2022 [id number] / / [id number] 10fr 5cm Biliary Stent [id number] - [id number] Implanted:Qty: 1 on 11/01/2021 by Kenneth Loya MD at [facility] Explanted:Qty: 1 on 01/05/2022 at [facility] N/A: Bile Duct [employer] 08/12/2023 [id number] / / [id number] 10fr 7cm Biliary Stent [id number] - [id number] Implanted:Qty: 1 on 11/01/2021 by Kenneth Loya MD at [facility] Explanted:Qty: 1 on 01/05/2022 by Contreras Girard MD at [facility] N/A: Bile Duct [employer] 08/23/2023 [id number] / / [id number] [employer] Cotton-Young 10fr 5cm Taper Tip Soft Proximal Distal Flap Gentle [id number] - [id number] Implanted:Qty: 1 on 01/05/2022 by Contreras Girard MD at [facility] Explanted:Qty: 1 on 01/26/2022 at [facility] N/A: Bile Duct [employer] 05/07/2022 [id number] / / [id number] [employer] Advanix 7fr 7cm Lead Joana Radiopaque [place] Endo Marker Drainage [id number] - [id number] Implanted:Qty: 1 on 07/06/2022 by Kenneth Loya MD at [facility] Explanted:Qty: 1 on 09/08/2022 by Kenneth Loya MD at [facility] N/A: Pancreas [employer] 05/03/2023 [id number] / / [id number] [employer] 10fr 5cm Biliary Stent [id number] - [id number] Implanted:Qty: 1 on 07/06/2022 by Kenneth Loya MD at [facility] Explanted:Qty: 1 on 09/08/2022 by Kenneth Loya MD at [facility] N/A: Bile Duct [employer] 12/24/2022 [id number] / / [id number] [employer] 10fr 5cm Biliary Stent [id number] - [id number] Implanted:Qty: 1 on 07/06/2022 by Kenneth Loya MD at [facility] Explanted:Qty: 1 on 09/08/2022 by Kenneth Loya MD at [facility] N/A: Bile Duct [employer] 11/16/2023 [id number] / / [id number] [employer] 10fr 7cm Biliary Stent [id number] - [id number] Explanted:Qty: 1 on 04/10/2023 by John De Anda MD at [facility] [employer] Kemal [id number] 12/13/2024 [id number] / / [id number] Description:Unable to place despite multiple attempts Procedures Procedure Name Priority Date/Time Associated Diagnosis Comments EGFR STAT 07/23/2024 11:01 AM MARKETING ADMIN DIFFERENTIAL AUTO STAT 07/23/2024 11: 01 AM MARKETING ADMIN ETHANOL STAT 07/23/2024 11:01 AM MARKETING ADMIN CBC WITH AUTO DIFFERENTIAL STAT 07/23/2024 11:01 AM MARKETING ADMIN COMPREHENSIVE METABOLIC PANEL STAT 07/23/2024 11:01 AM MARKETING ADMIN from Last 3 Months Results * eGFR (07/23/2024 11:01 AM MARKETING ADMIN) eGFR >90 >=60 mL/min/1. 73 m2 Comment: [...] reviewed 2021. Blood 07/23/2024 11:0 1 AM MARKETING ADMIN 07/23/2024 11:03 AM MARKETING ADMIN us Jonny Parada MD LAB BLOOD ORDERABLES Final Res ult [facility] ([place] Department [place] [address] * Differential, auto (07/23/2024 11:01 AM MARKETING ADMIN) Neutrophil abs 1.7 1.5 - 6.5 K/cumm [...] on 2017. Blood 07/23/2024 11:0 1 AM MARKETING ADMIN 07/23/2024 11:03 AM MARKETING ADMIN us Jonny Parada MD LAB BLOOD ORDERABLES Final Res ult [facility] ([place]) [facility] [place] [address] * (ABNORMAL) CBC with auto differential (07/23/2024 11:01 AM MARKETING ADMIN) WBC 3.9 3.8 - 9.9 K/cumm Hgb [...] [facility] ([place]) Blood 07/23/2024 11:0 1 AM MARKETING ADMIN 07/23/2024 11:03 AM MARKETING ADMIN Jonny Parada MD LAB BLOOD ORDERABLES Final Res ult [facility] [place] [address] * (ABNORMAL) Ethanol (07/23/2024 11:01 AM MARKETING ADMIN) Ethanol 314(C) <=10 mg/dL Comment: Critical Result called by [email or web address] at 2024-07-23 11:26:12. Result Read Back by Marine Quan ED Interpretive Data Legal limit of intoxication > or = 80 mg/dL Levels > or = 400 mg/dL are potentially TOXIC. Current interpretive data was last revised on 2018. Blood 07/23/2024 11:0 1 AM MARKETING ADMIN 07/23/2024 11:03 AM MARKETING ADMIN Jonny Parada MD LAB BLOOD ORDERABLES Final Res ult [facility] ([place] [place] [address] * (ABNORMAL) Comprehensive metabolic panel (07/23/2024 11:01 AM MARKETING ADMIN) Sodium 144 135 - 145 mmol/L Potassium, pl 3.5 3.3 - 4.9 mmol/L [facility] ([place] Chloride 105 97 - 110 mmol/L [facility] CO2 23 22 - 32 mmol/L [facility] Anion gap 16(H) 2 - 15 mmol/L [facility] BUN 5(L) 6 - 25 mg/dL [facility] Creatinine 0.64(L) 0.80 - 1.30 mg/dL [facility] Glucose 133 70 - 199 mg/dL [facility] ([place] Comment: Interpretive Data Fasting glucose >/= 126 [...] [facility] Blood 07/23/2024 11:0 1 AM MARKETING ADMIN 07/23/2024 11:03 AM MARKETING ADMIN Jonny Parada MD LAB BLOOD ORDERABLES Final Res ult [facility] ([place] Department [place] [address] from Last 3 Months Insurance MEDICARE [facility] MEDICARE Address: [address] [address] [place] [address] [facility] MEDICARE [facility] [facility] MEDIC[facility] Address: [address] [place] [address] Advance Directives For more information, please contact: [phone] * Full Code (Latest Code Status on [...] 7:36 AM 06/02/2023 3:26 PM Care Teams Floor Mechanic Relationship Specialty Start Date End Date Don Walton PA [address] [address] PCP - General Physician Laborer Cutting Tool 12/28/21
--- OUTSIDE RECORDS SUMMARY | 2024-08-03 14:48 | XMS_ITS | Clinical Summary ---
Author Organization [facility] Address [address] [place] [address] Phone Care Team Providers Care Counting Machine Operator Name Role Phone Lamberto Barker Nasra RUCKER Primary Care Provider [phone] Social History Tobacco Use Types Packs/Day Years Used Date Smoking Tobacco: Never Assessed Sex and Gender Information Value Date Recorded Sex Assigned at Not on file Legal Sex Male 8:46 AM CDT Gender Identity Not on file Sexual Orientation Not on file Plan of Treatment Not on file Insurance [facility] MEDICARE C [employer] Care Teams Counting Machine Operator Relationship Specialty Start Date End Date Lamberto Barker DO [address] [place] [address] PCP - General Internal Medicine 09/18/19
[2024-08-03 14:50] VITALS: BP 115/79; PULSE 110; RESP 16; TEMP 36.8; O2SAT 100
[2024-08-03 15:25] LABS: Basophils Percent Auto 0.3 % (0.2-1.2); Eosinophils Absolute Auto 0.1 K/mm3 (0-0.3); Hematocrit 36.5 % (42.0-52.0); Hemoglobin 11.8 g/dL (14.0-18.0); Immature Granulocyte Absolute 0.02 K/mm3 (0.00-0.031); Immature Granulocyte Percent A 0.3 % (0-0.5); Lymphocytes Absolute Auto 0.92 K/mm3 (0.9-3.2); Lymphocytes Percent Auto 11.6 % (18.3-44.2); Mean Corpuscular HGB Conc 32.3 g/dl (32-36); Mean Corpuscular Hemoglobin 30.6 pg (26-34); Mean Corpuscular Volume 94.6 fl (80-100); Mean Platelet Volume 11.2 fl (7.4-10.4); Monocytes Absolute Auto 0.9 K/mm3 (0.1-0.6); Monocytes Percent Auto 10.9 % (2.6-8.5); Neutrophils Percent Auto 75.9 % (45.5-73.1); Platelet Count Result 174 k/mm3 (150-375); Red Blood Count 3.86 M/mm3 (4.6-6.20); Red Cell Distribution Width 17.3 % (11.5-14.5)
[2024-08-03 15:34] LABS: Alanine Aminotransferase 45 U/L (6-50); Alkaline Phosphatase 245 U/L (38-126); Anion Gap 11 mmol/L (4-12); Aspartate Amino Transferase 33 U/L (17-59); Bilirubin,Total 0.5 mg/dL (0.2-1.3); Blood Urea Nitrogen 8 mg/dL (9-20); Calcium 10.1 mg/dL (8.4-10.2); Carbon Dioxide 24 mmol/L (22-30); Chloride 101 mmol/L (98-107); Estimated CRCL calculation 134 ml/min; Estimated Glomerular Filt Rate > 60; Glucose 108 mg/dL (65-110); Lipase 1662 U/L (23-300); Potassium 4.5 mmol/L (3.4-5.0); Sodium 136 mmol/L (137-145)
[2024-08-03 17:48] VITALS: BP 118/93; PULSE 105; RESP 20; O2SAT 96
--- NOTE | 2024-08-03 18:00 | ED.ABDPAIN ---
HPI - Abdominal Pain General Chief Complaint: Abdominal Pain Stated Complaint: Abdominal pain-hx Pancreatitis Time Seen by Provider: 08/03/24 17:49 Source: patient, RN notes reviewed and old records reviewed Mode of arrival: wheelchair Limitations: no limitations History of Present Illness HPI narrative: This is a 58 year old male with history alcohol abuse, chronic pancreatitis who presents for evaluation of worsening abdominal pain. He was discharged from [facility] yesterday after treatment of acute on chronic pancreatitis. He states he developed worsening pain after eating dinner yesterday at [employer]. He reports he had pork loins with gravy, mash potatoes and green beans. He reports upper abdominal pain radiating to his back. He has associated nausea and vomiting. He was discharged from [facility] today. He states he was told if he left today he would not be allowed back for 30 days. He states he has not had alcohol since Monday. Related Data Home Medications ?Medication ?Instructions ?Recorded ?Confirmed ?Last Taken ?Type yrauyvbo-txub-sgmcx acid 400 1 tablet PO DAILY 02/03/21 08/01/24 07/31/24 History mcg-lycopene 600 mcg-ginkgo 120 mg tablet potassium gluconate 595 mg (99 mg) 595 mg PO DAILY 04/25/23 08/01/24 07/31/24 History tablet losartan 25 mg tablet 25 mg PO DAILY 06/28/23 08/01/24 07/31/24 History ascorbic acid (vitamin C) 500 mg 500 mg PO DAILY 08/01/24 08/01/24 07/31/24 History chewable tablet (Acerola C) biotin 5 mg capsule 5 mg PO DAILY 08/01/24 08/01/24 07/31/24 History carbamazepine 200 mg tablet 200 mg PO Q12H 08/01/24 08/01/24 07/31/24 History chlordiazepoxide HCl 25 mg capsule 25 mg PO TID PRN alcohol withdrawal 08/01/24 08/01/24 07/31/24 15:30 History duloxetine 30 mg capsule,delayed 90 mg PO BID 08/01/24 08/01/24 07/31/24 History release (Cymbalta) magnesium 250 mg tablet 500 mg PO DAILY 08/01/24 08/01/24 07/31/24 History tadalafil 20 mg tablet 5 mg PO DAILY 08/01/24 08/01/2425 History tizanidine 4 mg tablet 4 mg PO Q8H PRN muscle spasticity 08/01/24 08/01/24 Unknown History Allergies Allergy/AdvReac Type Severity Reaction Status Date / Time amoxicillin Allergy Intermediate rash Verified 08/03/24 14:45 Penicillins Allergy Intermediate Pruritic Verified 08/03/24 14:45 rash Review of Systems Gastrointestinal: Gastrointestinal: Reports abdominal pain, Reports nausea and Reports vomiting PMFSH Past Medical History Medical History Peptic ulcer Gastroesophageal reflux disease Tobacco dependence Necrotizing pancreatitis Elevated PSA Memory loss Gastritis and duodenitis Essential hypertension Alcoholism Fracture of vertebra due to osteoporosis with routine healing Generalized osteoarthritis of multiple sites Inflammatory arthritis (08/2019) Angioedema (08/2019) Acute pulmonary embolism (08/2019) Pancreatitis Hypercholesteremia Surgical History Surgical History History of appendectomy Family History Family History Mother Hypertension Sibling Patient's brother is in good health Father Family history of pancreatic cancer Social History Social History Social History: Surrogate medical decision maker: Doris Norman, ex-. Code status: Full code. Smoking packs per day: 1.5 Smoking cigarettes per day: 30.0 Years smoked: 35 Smoking pack-years: 52.50 Smoking status: Current every day smoker Tobacco type: cigarettes Second hand tobacco smoke exposure: No Alcohol intake: current Drinks per week: 50 Alcohol use details: SHOT Substance use: current Substance use type: marijuana Other substance usage details: MEDICAL CARD-DAILY FOR BACK PAIN Last use: Monday Do You Feel Safe in your Home?: Yes Lack of Transportation: No Lack of Food: Never True Current Housing: I Do Not Have Housing Concerned About Future Housing: No Difficulty Paying Gas/Electric Bills: No Difficulty Paying for Meds: No Currently Unemployed: No Education: Don't Know Difficulty w/ Childcare or Family Care: No Living arrangements: with family Occupation/Education: retired Spiritual care concerns: No Exam Const: General: no acute distress and alert Nutritional Appearance: well nourished Orientation/consciousness: patient oriented x3 HENMT: Head: normal to inspection Chest: Chest palpation & inspection: normal inspection of the chest Resp: Effort & Inspection: normal respiratory effort Auscultation: clear to auscultation bilaterally Cardio: Rate: regular rate Rhythm: regular rhythm Heart sounds: no murmurs GI: GI Palp: Yes Soft to palpation, Yes Tenderness to palpation present (GI) (diffuse), No Guarding due to palpation present (GI) and No Rigid due to palpation Auscultation: normal bowel sounds Neuro: General: patient oriented x3 and moves all extremities Cranial nerves: Yes Nystagmus not present Psych: Mental Status: mental status grossly normal Affect: normal affect Attitude: cooperative Course Reevaluation(s) Reevaluation #1: PAtient reports he feels better but has headache. I Discussed HE will be admitted for worsening lipas Date: 08/03/24 Time: 19:38 Consultations Consultation #1: I discussed case with Ani. PAtient has worsening lipase and history of withdrawal. last alcohol 5 days. She accepts to [facility] Date: 08/03/24 Time: 19:39 Vital Signs Vital signs: Vital Signs Temperature 98.2 F 08/03/24 14:50 Pulse Rate 110 H 08/03/24 14:50 Respiratory Rate 16 08/03/24 14:50 Blood Pressure 115/79 08/03/24 14:50 Pulse Oximetry 100 08/03/24 14:50 Oxygen Delivery Room Air 08/03/24 14:50 Temperature 98.2 F 08/03/24 14:50 Pulse Rate 96 08/03/24 18:34 Respiratory Rate 16 08/03/24 18:34 Blood Pressure 122/88 08/03/24 18:34 Pulse Oximetry 99 08/03/24 18:34 Oxygen Delivery Room Air 08/03/24 14:50 MDM - Abdominal Pain MDM Narrative Medical decision making narrative: Patient presents with worsening abdominal pain after eating. He does have increase in lipase consistent with acute exacerbation of pancreatitis. GIven IV fluids, zofran and Dilaudid. He also has ciwa of 14 so librium given. Differential Diagnosis Differential diagnosis: Likely abdominal pain, gastroenteritis, pancreatitis and other (alcohol withdrawal) Medical Records Attestation: I reviewed the patient's medical records. Lab Data Attestation: I reviewed the patient's lab results. 08/03/24 15:13 08/03/24 15:13 Labs: Lab Results 08/03/24 08/03/24 08/03/24 Range/Units 15:13 18:17 18:38 WBC 8.0 (4.5-10.0) K/mm3 RBC 3.86 L (4.6-6.20) M/mm3 Hgb 11.8 L (14.0-18.0) g/dL Hct 36.5 L (42.0-52.0) % MCV 94.6 (80-100) fl MCH 30.6 (26-34) pg MCHC 32.3 (32-36) g/dl RDW 17.3 H (11.5-14.5) % Plt Count 174 (150-375) k/mm3 MPV 11.2 H (7.4-10.4) fl Immature Gran % (Auto) 0.3 (0-0.5) % Neut % (Auto) 75.9 H (45.5-73.1) % Lymph % (Auto) 11.6 L (18.3-44.2) % Barrow % (Auto) 10.9 H (2.6-8.5) % Eos % (Auto) 1.0 (0-4.4) % Baso % (Auto) 0.3 (0.2-1.2) % Lymph # (Auto) 0.92 (0.9-3.2) K/mm3 Barrow # (Auto) 0.9 H (0.1-0.6) K/mm3 Eos # (Auto) 0.1 (0-0.3) K/mm3 Baso # (Auto) 0.0 (0.0-0.1) K/mm3 Abs Immat Gran (auto) 0.02 (0.00-0.031) K/mm3 Absolute Neuts (auto) 6.0 (1.3-6.7) K/mm3 Absolute Nucleated RBC 0.000 (0.0-0.012) K/mm3 Nucleated RBC % 0.0 (0.0-0.2) % Sodium 136 L (137-145) mmol/L Potassium 4.5 (3.4-5.0) mmol/L Chloride 101 (98-107) mmol/L Carbon Dioxide 24 (22-30) mmol/L Anion Gap 11 (4-12) mmol/L BUN 8 L (9-20) mg/dL Creatinine 0.57 L (0.7-1.3) mg/dL Estim Creat Clear Calc 134 ml/min Estimated GFR > 60 (59 - ) Glucose 108 (65-110) mg/dL Calcium 10.1 (8.4-10.2) mg/dL Total Bilirubin 0.5 (0.2-1.3) mg/dL AST 33 (17-59) U/L ALT 45 (6-50) U/L Alkaline Phosphatase 245 H (38-126) U/L Total Protein 8.0 (6.3-8.2) g/dL Albumin 4.0 (3.5-5.1) g/dL Lipase 1662 H (23-300) U/L Urine Color Yellow (Yellow) Urine Appearance Clear (Clear) Urine pH 7.5 (5.0-9.0) Ur Specific Suring 1.015 (1.001-1.035) Urine Protein Negative (Negative) mg/dL Urine Glucose (UA) Negative (Negative) mg/dL Urine Ketones Negative (Negative) mg/dL Ur Blood (Man) Negative (Negative) Urine Nitrate Negative (Negative) Urine Bilirubin Negative (Negative) Urine Urobilinogen 0.2 (<2.0) mg/dL Leukocyte Esterase Rfl Negative (Negative) KRISTOFER/UL Ethyl Alcohol < 10 (<10) mg/dL Critical Care Time Critical Care Time Critical Care Time: Yes Total Critical Care Time: 35 Discharge Plan Discharge Clinical Impression: Acute on chronic pancreatitis, Alcohol withdrawal Patient Disposition: Still a Patient Condition: Stable Instructions: Antibiotic Form Patient Language: Estonian Prescriptions: No Action fenofibrate 160 mg tablet 160 mg PO DAILY Qty: 90 1RF folic acid 1 mg tablet See Rx Instructions .ROUTE .COMPLEX Qty: 90 1RF Dose Instruction: TAKE 1 TABLET BY MOUTH DAILY Rx Instructions: TAKE 1 TABLET BY MOUTH DAILY pantoprazole 40 mg tablet,delayed release (DR/EC) See Rx Instructions .ROUTE .COMPLEX Qty: 90 1RF Dose Instruction: TAKE 1 TABLET BY MOUTH EVERY MORNING Rx Instructions: TAKE 1 TABLET BY MOUTH EVERY MORNING meloxicam 7.5 mg tablet 7.5 mg PO BID PRN (Reason: joint pain) Qty: 60 5RF potassium gluconate 595 mg (99 mg) tablet 595 mg PO DAILY losartan 25 mg tablet 25 mg PO DAILY carbamazepine 200 mg tablet 200 mg PO Q12H Patient Comments: for 5 days starting 07/30/24 biotin 5 mg capsule 5 mg PO DAILY magnesium 250 mg tablet 500 mg PO DAILY ascorbic acid (vitamin C) [Acerola C] 500 mg tablet,chewable 500 mg PO DAILY tizanidine 4 mg tablet 4 mg PO Q8H PRN (Reason: muscle spasticity) chlordiazepoxide HCl 25 mg capsule 25 mg PO TID PRN (Reason: alcohol withdrawal) Rx Instructions: CIWA scale, dose from 25mg-75mg tadalafil 20 mg tablet 5 mg PO DAILY duloxetine [Cymbalta] 30 mg capsule,delayed release(DR/EC) 90 mg PO BID Patient Comments: 2 capsules in AM, 1 at HS ferrous sulfate 325 mg (65 mg iron) tablet 325 mg PO DAILY Qty: 5 0RF pt-gxyd-geuqr-lycopene-ginkgo 400-600-120 mcg-mcg-mg Tablet 1 tablet PO DAILY Creon 12,000-38,000 -60,000 unit capsule,delayed release(DR/EC) 1 cap PO TID Qty: 90 5RF Rx Instructions: administer with meals and/or snacks gabapentin 300 mg capsule 300 mg PO Q8H Qty: 270 1RF trazodone 50 mg tablet 100 mg PO .QHS PRN (Reason: insomnia) Qty: 180 1RF amlodipine 10 mg tablet 10 mg PO DAILY Qty: 90 1RF Follow-up/Referrals: Ronnell Escobar, DAMION [Primary Care Provider] -
--- OUTSIDE RECORDS SUMMARY | 2024-08-03 18:03 | XMS_ITS | Clinical Summary ---
Author Organization [facility] Address [address] [place] [address] Care Team Providers Care Merchandising Manager Name Role Phone Lamberto Barker MD Primary Care Provider [phone] Allergies Active Allergy Reactions Criticality Noted Date [...] total) by mouth daily. 3 Active CREON 12987-83572 units CAPSULE ENTERIC COATED PARTICLES Take 1 [...] no ischemic changes. He reports hx of [place] in the past, unclear circumstances. He had an exercise stress test in spring at an outside facility that he says was normal. Cont ASA. Pancreatic pseudocyst ([facility]) 07/26/2021 Severe sepsis ([facility]) 07/08/2021 Overview (11/04/2022): Last Assessment & [...] Alcohol dependence with unsp ecified alcohol-induced disorder ([facility]) 06/25/2021 Overview (11/04/2022): Last Assessment & [...] has AA resources for discharge. Acute pancreatitis ([facility]) 06/20/2021 Pancreatitis ([facility]) 05/08/2019 Hypertension Tobacco abuse Resolved Problems Problem Noted Date Diagnosed Date Resolved Date Acute pancreatitis ([facility]) 12/28/2020 06/01/2021 Hypokalemia 06/20/2020 12/25/2020 Acute pancreatitis ([facility]) 06/19/2020 12/25/2020 Necrotizing pancreatitis ([facility]) 10/21/2019 12/25/2020 Other constipation 10/21/2019 Encounters Date Type Department Care Team Description 07/20/2024 2:13 PM NAPHTHA WASHING SYSTEM OPERATOR - 07/20/2024 4:18 PM [facility] Emergency [facility] [place] [address] Lizette Shah MD Alcohol Intoxication Discharge Disposition: Left Against Medical Advice 07/20/2024 Travel 07/19/2024 11:53 AM NAPHTHA WASHING SYSTEM OPERATOR - 07/19/2024 1:27 PM [facility] Emergency [facility] [place] [address] Lizette Shah MD Alcohol Intoxication Discharge Disposition: Left Against Medical Advice 07/19/2024 Travel 07/06/2024 2:36 AM NAPHTHA WASHING SYSTEM OPERATOR - 07/06/2024 6:29 AM [facility] Emergency [facility] [place] [address] Daniel Hitchcock MD Withdrawal- Alcohol Discharge Disposition: [...] How often do you attend chur or spiritism services? Never 12/25/2020 Do you belong to any clubs o r organizations such as congregational groups, unions, fraternal or athletic groups, or [...] move on to questions 3-9 2 12/25/2020 [facility] - Occupational Stress [...] Comments Blood Pressure 99/62 07/20/2024 3:00 PM NAPHTHA WASHING SYSTEM OPERATOR Pulse 98 07/20/2024 3:00 PM NAPHTHA WASHING SYSTEM OPERATOR Temperature 37.1 C (98.8 F) 07/20/2024 2:33 PM NAPHTHA WASHING SYSTEM OPERATOR Respiratory Rate 18 07/20/2024 3:00 PM NAPHTHA WASHING SYSTEM OPERATOR Oxygen Saturation 93% 07/20/2024 3:00 PM NAPHTHA WASHING SYSTEM OPERATOR Inhaled Oxygen Concentration - - Weight 79.2 kg (174 lb 9.7 oz) 07/20/2024 2:15 P M NAPHTHA WASHING SYSTEM OPERATOR Height 182.9 cm (6') 07/20/2024 2:15 PM NAPHTHA WASHING SYSTEM OPERATOR Body Mass Index 23.68 07/20/2024 2:15 PM NAPHTHA WASHING SYSTEM OPERATOR Plan of Treatment Health Maintenance Due [...] (#1) 2024 03/08/2021, 03/03/2019, 02/05/2018 PHQ-2 (Physician [place]) 05/29/2024 Colorectal Cancer Screening FIT/FOBT (1 Year) [...] Reduce alcohol intake Lifestyle No 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 Matthews 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 Procedure Name Priority Date/Time Associated Diagnosis Comments LIPASE STAT 07/20/2024 2:44 PM NAPHTHA WASHING SYSTEM OPERATOR MAGNESIUM STAT 07/20/2024 2:44 PM NAPHTHA WASHING SYSTEM OPERATOR COMPREHENSIVE METABOLIC PANEL STAT 07/20/2024 2:44 PM NAPHTHA WASHING SYSTEM OPERATOR CBC W/DIFF AUTOMATED STAT 07/20/2024 2:44 PM NAPHTHA WASHING SYSTEM OPERATOR LIPASE STAT 07/19/2024 12:38 PM NAPHTHA WASHING SYSTEM OPERATOR MAGNESIUM STAT 07/19/2024 12:38 PM NAPHTHA WASHING SYSTEM OPERATOR COMPREHENSIVE METABOLIC PANEL STAT 07/19/2024 12:38 PM NAPHTHA WASHING SYSTEM OPERATOR CBC W/DIFF AUTOMATED STAT 07/19/2024 12:38 PM NAPHTHA WASHING SYSTEM OPERATOR CT HEAD WO CON STAT 07/06/2024 3:15 AM NAPHTHA WASHING SYSTEM OPERATOR LIPASE STAT 07/06/2024 3:00 AM NAPHTHA WASHING SYSTEM OPERATOR ETHANOL STAT 07/06/2024 3:00 AM NAPHTHA WASHING SYSTEM OPERATOR MAGNESIUM STAT 07/06/2024 3:00 AM NAPHTHA WASHING SYSTEM OPERATOR TROPONIN, QUANT STAT 07/06/2024 3:00 AM NAPHTHA WASHING SYSTEM OPERATOR COMPREHENSIVE METABOLIC PANEL STAT 07/06/2024 3:00 AM NAPHTHA WASHING SYSTEM OPERATOR CBC W/DIFF AUTOMATED STAT 07/06/2024 3:00 AM NAPHTHA WASHING SYSTEM OPERATOR OCCULT BLOOD, FECES Routine 09/15/2019 4 :49 PM CDT from Last 3 Months or Most Recently Relevant to Health Maintenance Results * (ABNORMAL) COMPREHENSIVE METABOLIC PANEL (07/20/2024 2:44 PM NAPHTHA WASHING SYSTEM OPERATOR) Only the most recent of3 resultswithin the time period is included. [facility] Signature GLUCOSE 115(H) 70 - 99 MG/DL 07/20/2024 3:[address] [facility] BUN 7 7 - 18 MG/DL 07/20/2024 3:[address] [facility] CREATININE S/P/B 0.62(L) 0.7 - 1.3 MG/DL 07/20/2024 3:[address] [facility] SODIUM S/P/B 139 136 - 145 MMOL/L 07/20/2024 3:[address] [facility] POTASSIUM S/P/B 3.6 3.5 - 5.1 MMOL/L 07/20/2024 3:[address] [facility] CHLORIDE S/P/B 106 97 - 115 MMOL/L 07/20/2024 3:[address] [facility] CO2 24.0 21 - 32 MMOL/L 07/20/2024 3:[address] [facility] CALCIUM S/P/B 8.8 8.5 - 10.1 MG/DL 07/20/2024 3:[address] [facility] BILIRUBIN TOTAL S/P/B 0.2 0.2 - 1.2 MG/DL 07/20/2024 3:[address] [facility] Comment: THIS ASSAY IS NOT RECOMMENDED FOR PATIENTS UNDERGOING TREATMENT WITH ELTROMBOPAG DUE TO THE POTENTIAL FOR FALSELY ELEVATED RESULTS. TOTAL PROTEIN S/P/B 6.9 6.4 - 8.2 G/DL 07/20/2024 3:[address] [facility] ALBUMIN S/P/B 2.9(L) 3.4 - 5.0 G/DL 07/20/2024 3:[address] [facility] AST 50(H) 15 - 37 U/L 07/20/2024 3:[address] [facility] ALT 34 16 - 60 U/L 07/20/2024 3:[address] [facility] ALKALINE PHOSPHATASE S/P/B 496(H) 50 - 136 U/L 07/20/2024 3:[address] [facility] ANION GAP 9.0 2 - 10 MMOL/L 07/20/2024 3:[address] [facility] BUN CREATININE RATIO 11.2 6 - 26 07/20/2024 3:[address] [facility] A/G RATIO 0.7(L) 1.0 - 2.0 RATIO 07/20/2024 3:[address] [facility] GFR ESTIMATE >90 >90 ML/MIN/1.7 3 M2 07/20/2024 3:[address] [facility] Comment: NOTE: eGFR is not calculated for patients <18 years of age or gender unknown. This is an estimated GFR calculation using the new CKD EPI creatinine equation without race and so does not require a correction factor for race. This estimated GFR should not be used for calculating drug doses. 07/20/2024 2:44 PM NAPHTHA WASHING SYSTEM OPERATOR us Lizette Shah MD LABORATORY Final Result [facility] [address] [place] [address], [place] [phone] * (ABNORMAL) CBC W/DIFF AUTOMATED (07/20/2024 2:44 PM NAPHTHA WASHING SYSTEM OPERATOR) Only the most recent of3 resultswithin the time period is included. WBC 6.16 4.5 - 11.0 x10'3/uL 07/20/2024 2:[address] [facility] RBC 3.76(L) 4.70 - 6.10 x10'6/uL 07/20/2024 2:[address] [facility] HGB 11.4(L) 14.0 - 18.0 G/DL 07/20/2024 2:[address] [facility] HCT 34.8(L) 43.0 - 54.0 % 07/20/2024 2:[address] [facility] MCV 92.6 80.0 - 94.0 FL 07/20/2024 2:[address] [facility] MCH 30.3 27.0 - 31.0 PG 07/20/2024 2:[address] [facility] MCHC 32.8 32.0 - 36.0 G/DL 07/20/2024 2:[address] [facility] RDW 16.5(H) 11.5 - 14.5 % 07/20/2024 2:[address] [facility] PLT 433(H) 130 - 400 x10'3/uL 07/20/2024 2:[address] [facility] MPV 8.8(L) 9.3 - 12.2 FL 07/20/2024 2:[address] [facility] DIFFERENTIAL TYPE AUTOMATED DIFFERENTIAL 07/20/2024 2:[address] [facility] NEUTROPHILS % 54.6 % 07/20/2024 2:[address] [facility] LYMPHOCYTES % 31.2 % 07/20/2024 2:[address] [facility] MONOCYTES % 12.0 % 07/20/2024 2:[address] [facility] EOSINOPHILS 0.3 % 07/20/2024 2:[address] [facility] BASOPHILS 1.6 % 07/20/2024 2:52 PM NAPHTHA WASHING SYSTEM OPERATOR [facility] IMMATURE GRANS % 0.3 % 07/20/19 2:52 PM NAPHTHA WASHING SYSTEM OPERATOR [facility] ABS. NEUTROPHILS 3.36 1.80 - 7.70 x10'3/uL 07/20/2024 2:52 PM NAPHTHA WASHING SYSTEM OPERATOR [facility] ABS. LYMPHOCYTES 1.92 1.00 - 4.80 x10'3/uL 07/20/2024 2:52 PM NAPHTHA WASHING SYSTEM OPERATOR [facility] ABS. MONOCYTES 0.74 0.30 - 0.82 x10'3/uL 07/20/2024 2:52 PM NAPHTHA WASHING SYSTEM OPERATOR [facility] ABS. EOSINOPHILS 0.02(L) 0.04 - 0.54 x10'3/uL 07/20/2024 2:52 PM NAPHTHA WASHING SYSTEM OPERATOR [facility] ABS. BASOPHILS 0.10(H) 0.01 - 0.08 x10'3/uL 07/20/2024 2:52 PM NAPHTHA WASHING SYSTEM OPERATOR [facility] ABS. IMMATURE GRANULOCYTES 0.02 0.00 - 0.49 x10'3/uL 07/20/2024 2:52 PM NAPHTHA WASHING SYSTEM OPERATOR [facility] 07/20/2024 2:44 PM NAPHTHA WASHING SYSTEM OPERATOR us Lizette Shah MD LABORATORY Final Result [facility] [address] [place] [address], * MAGNESIUM (07/20/2024 2:44 PM NAPHTHA WASHING SYSTEM OPERATOR) Only the most recent of3 resultswithin the time period is included. MAGNESIUM 2.2 1.8 - 2.4 MG/DL 07/20/2024 3:19 PM NAPHTHA WASHING SYSTEM OPERATOR [facility] 07/20/2024 2:44 PM NAPHTHA WASHING SYSTEM OPERATOR us Lizette Shah MD LABORATORY Final Result [facility] [address] [place] [address], [place] [phone] * LIPASE (07/20/2024 2:44 PM NAPHTHA WASHING SYSTEM OPERATOR) Only the most recent of3 resultswithin the time period is included. LIPASE 17 13 - 75 UNITS/L 07/20/2024 3:19 PM NAPHTHA WASHING SYSTEM OPERATOR [facility] 07/20/2024 2:44 PM NAPHTHA WASHING SYSTEM OPERATOR us Lizette Shah MD LABORATORY Final Result Performing Organization Address [facility] de Phone Number [facility] [address] [place] [address], [place] [phone] * CT HEAD WO CON (07/06/2024 3:15 AM NAPHTHA WASHING SYSTEM OPERATOR) Anatomical Region Laterality Modality Head Computed Tomogra phy 07/06/2024 3:13 AM NAPHTHA WASHING SYSTEM OPERATOR Impressions 07/06/2024 3:16 AM NAPHTHA WASHING SYSTEM OPERATOR IMPRESSION: 1. No acute intracranial abnormality. [...] 07/06/2024 3:13 AM Narrative 07/06/2024 3:16 AM NAPHTHA WASHING SYSTEM OPERATOR [facility] [address] [place], [place] [address] EXAMINATION: CT Head without Contrast, Axial Imaging [...] Procedure Note Sparkle Monaco MD - 07/06/2024 [facility] [address] [place] [address] EXAMINATION: CT Head without Contrast, Axial Imaging [...] t * TROPONIN, QUANT (07/06/2024 3:00 AM NAPHTHA WASHING SYSTEM OPERATOR) [facility] TROPONIN I HIGH SENSITIVITY 9 <79 ng/L 07/06/2024 3:58 AM NAPHTHA WASHING SYSTEM OPERATOR [facility] Comment: HIGH DOSES OF BIOTIN, TROPONIN-SPECIFIC AUTOANTIBODIES, AND ANTIBODY THERAPY CONTAINING HAMA MAY INTERFERE WITH THIS TEST RESULT. CORRELATION TO CLINICAL HISTORY AND PRESENTATION RECOMMENDED. 07/06/2024 3:00 AM NAPHTHA WASHING SYSTEM OPERATOR us Daniel Hitchcock MD LABORATORY Final Resul t Performing Organization Address City/[facility]/ZIP Co de Phone Number [facility] [address] [place] [address], * (ABNORMAL) ETHANOL (07/06/2024 3:00 AM NAPHTHA WASHING SYSTEM OPERATOR) [facility] ALCOHOL S/P/B 0.158(H) <0.003 G/DL 07/06/2024 3:58 AM NAPHTHA WASHING SYSTEM OPERATOR [facility] 07/06/2024 3:00 AM NAPHTHA WASHING SYSTEM OPERATOR us Daniel Hitchcock MD LABORATORY Final Resul t [facility] [address] [place] [address], [place] [phone] * OCCULT BLOOD, FECES (09/15/2019 4:49 PM CDT) [facility] OCCULT BLOOD FECAL NEGATIVE 09/15/2019 5:56 PM CDT [facility] STOOL SPECIMEN / Unknown 09/15/2019 4:49 PM CDT González Morataya PA-C BODY FLUIDS AND STOOLS ORDERAB LES Final Result [facility] [address] [place] [address], from Last 3 Months or Most Recently [...] 11:31 PM 12/26/2020 7:51 PM Care Teams Merchandising Manager Relationship Specialty Start Date End Date Lamberto Barker MD [address] [place] [address] PCP - General INTERNAL MEDICINE 05/08/19
--- OUTSIDE RECORDS SUMMARY | 2024-08-03 18:03 | XMS_ITS | Encounter Summary ---
Author Organization [facility] Address [address] [place] [address] Phone Care Team Providers Care Weatherization Operations Manager Name Role Phone Unknown, Notinfile Primary Care Provider Unavail able Lamberto Barker MD Primary Care Provider [phone] Don Walton Primary Care Provider Encounter Details [...] on file Legal Sex Male 1:58 AM LAND USE PLANNER Gender Identity Not on file Sexual Orientation [...] COVID: Suspected 06/06/2023 06/06/2023 06/06/2023 9:39 PM LAND USE PLANNER documented as of this encounter Care Teams Weatherization Operations Manager Relationship Specialty Start Date End Date Unknown, Dulce PCP - General 10/01/19 04/26/20 Lamberto Barker MD [address] [place] [address] PCP - General Internal Medicine 04/27/20 12/27/21 Don Walton PA [address] [place] [address] PCP - General Physician Rotary Cutter Feeder 12/28/21 documented as of this encounter
--- OUTSIDE RECORDS SUMMARY | 2024-08-03 18:03 | XMS_ITS | Encounter Summary ---
Author Organization [facility] Address [address] [place] [address] Care Team Providers Care Hatchery Helper Name Role Phone Lamberto Barker MD Primary Care Provider Encounter Details Date Type Department Care Team (Late st Contact Info) Description 10/21/2022 [employer] Message Enc [facility], [address] [address] [employer], [facility] Provider Stress test Social History Tobacco [...] move on to questions 3-9 2 12/25/2020 [facility] - Occupational [...] Assessment Author Status No 06/20/2021 1:29 AM TEACHER PRIVATE Activ e * RETIRED Are you blind or do you have serious difficulty seeing, even when wearing glasses? Answer Date of Assessment Author Status No 06/20/2021 1:29 AM TEACHER PRIVATE Activ e * Do you have serious [...] documented as of this encounter Care Teams Hatchery Helper Relationship Specialty Start Date End Date Lamberto Barker MD [address] [place] [address] PCP - General INTERNAL MEDICINE 05/08/19 documented as of this encounter
--- OUTSIDE RECORDS SUMMARY | 2024-08-03 18:04 | XMS_ITS | Encounter Summary ---
Author Organization [facility] Address [address] [place] [address] Care Team Providers Care Grief Counselor Name Role Phone Don Walton Primary Care Provider Encounter Details Date Type Department Care Team (Late st Contact Info) Description 01/25/2022 Orders Only [facility] [address] [place] [phone] Jordana Chambers MD [address] [place] [address] Social History Tobacco Use Types Packs/Day Years [...] often do you attend chur ch or faith services? 1 to 4 times per year 01/27/2022 Do you belong to any clubs o r organizations such as synagogue groups, unions, fraternal or athletic groups, or [...] slept in a usp (including now)? No 01/27/2022 Sex and Gender Information Value Date Recorded Sex Assigned at Not on file Legal Sex Male 1:58 AM PROTEIN SCIENTIST Gender Identity Not on file Sexual Orientation [...] COVID: Suspected 06/06/2023 06/06/2023 06/06/2023 9:39 PM PROTEIN SCIENTIST documented as of this encounter Care Teams Grief Counselor Relationship Specialty Start Date End Date Don Walton PA [address] [facility] [address] [facility] [address] [place] [address] PCP - General Physician Administrative Personal Assistant 12/28/21 documented as of this encounter
--- OUTSIDE RECORDS SUMMARY | 2024-08-03 18:04 | XMS_ITS | Clinical Summary ---
Author Organization [facility] at the [facility] Office Center Address [address] [place] [address] Care Team Providers Care Vision Impaired Teacher Name Role Phone Don Walton Primary Care Provider Allergies Active Allergy Reactions Criticality Noted Date Comments Ciprofloxacin Hives Medium 06/02/2023 Patient stated he has previously tolerated PO. 06/02/23 had redness and hives after IV dose. Penicillins Rash Medium 05/08/2019 Tulsxzqiuwda-Zjtbodlajz-Pva trs Angioedema High 09/17/[address] [...] daily 30 patch 01/12/20 22 Active multivit rhhspnsy-wqqp-AY-c alcium (THERA-M) 9 mg iron-400 mcg tabletIndications: [...] 06/10/2023 Assessment & Plan (06/12/2023 2:18 PM JIG BOX OPERATOR): Patient reports feeling constipated, gassy and bloated. [...] 06/08/2023 Assessment & Plan (06/09/2023 1:55 PM JIG BOX OPERATOR): Resolved. Acute pancreatitis, unspecif ied complication status, unspecified pancreatitis type 06/04/2023 Assessment & Plan (06/05/2023 12:45 PM JIG BOX OPERATOR): Longstanding bouts of pancreatitis originally from EtOH [...] 06/04/2023 Assessment & Plan (06/05/2023 12:48 PM JIG BOX OPERATOR): Likely from pancreatitis. Also tender to palpation initially so may be a musculoskeletal component from dry heaving. Trops negative. EKG no ischemic changes. He reports hx of MT in the past, unclear circumstances. He had an exercise stress test in spring at an outside facility that he says was normal. Cont ASA. Gram-negative bacteremia 04/11/2023 Assessment & Plan (04/13/2023 7:02 PM JIG BOX OPERATOR): - due to cholangitis - BCx + for E coli and K. Pneumoniae - repeat BCx drawn 04/11, ngtd - pansensitive organisms - d/c home today with flagyl/cipro Cholangitis 04/10/2023 Assessment & Plan (04/12/2023 6:21 PM JIG BOX OPERATOR): - Improving - 04/10 ERCP - removal of two migrates stents with biliary obstruction and replaced with 2 new stents in biliary stricture - PRN analgesics and antiemetics Assessment & Plan (04/10/2023 2:40 AM JIG BOX OPERATOR): -meets [place] criteria for acute cholangitis based [...] 01/04/2022 Assessment & Plan (06/13/2023 2:35 PM JIG BOX OPERATOR): Recently admitted from 06/04-06/05/23 after ERCP on [...] (01/05/2022): Added automatically from request for surgery [id number] Assessment & Plan (04/11/2023 3:57 PM JIG BOX OPERATOR): - improving -2/2 stent migration and resultant biliary obstruction Assessment & Plan (04/10/2023 2:27 AM JIG BOX OPERATOR): -2/2 stent migration and resultant biliary obstruction -mgmt as above -repeat HFP in AM 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 Overview (11/30/2021): Added automatically from request for surgery [id number] Encounter for replacement of biliary stent 11/30 Overview (11/30/2021): Added automatically from request for surgery [id number] 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 Pancreatic pseudocyst 07/26/2021 Severe sepsis 07/08/2021 Assessment & Plan (07/13/2021 9:43 AM JIG BOX OPERATOR): Pt elevated temp on 2 overnight 38.1 max, hypotensive with normal lactate but new JSOE, transferred to Stepdown, aggressive IVF, BCx, empirical [...] infection Assessment & Plan (07/12/2021 9:40 AM JIG BOX OPERATOR): Pt elevated temp on 2 overnight 38.1 [...] infection Assessment & Plan (07/11/2021 10:55 AM JIG BOX OPERATOR): Pt elevated temp on 2 overnight 38.1 [...] bed Assessment & Plan (07/10/2021 9:10 AM JIG BOX OPERATOR): Pt elevated temp on 2 overnight 38.1 max, hypotensive with normal lactate but new JOSE, transferred to [facility], aggressive IVF, BC, empirical meropenem initiated. [...] daily Assessment & Plan (07/09/2021 2:23 PM JIG BOX OPERATOR): Pt elevated temp on 2 overnight 38.1 max, hypotensive with normal lactate but new JOSE, transferred to [facility], aggressive IVF, BC, empirical abx initiated. [...] daily Assessment & Plan (07/08/2021 1:53 PM JIG BOX OPERATOR): Pt elevated temp overnight 38.1 max, hypotensive [...] 07/07/2021 Assessment & Plan (07/13/2021 9:43 AM JIG BOX OPERATOR): Dobbhoff placed 2/10, tube feeding to initiated Osmolite 1.5 at 55mL/hr over 24h via NJ tube continuous via pump. Flush with 150mL water q4h. Now at goal of 55cc/hr. Can cycle at home as instructed. Will continue TF until follow up with GI as outpatient Assessment & Plan (07/12/2021 9:39 AM JIG BOX OPERATOR): Dobbhoff placed 2/10, tube feeding to initiated Osmolite 1.5 at 55mL/hr over 24h via NJ tube continuous via pump. Flush with 150mL water q4h. Now at goal of 55cc/hr. Can cycle at home as instructed. Will continue TF until follow up with GI as outpatient Assessment & Plan (07/11/2021 10:55 AM JIG BOX OPERATOR): Dobbhoff placed 2/10, tube feeding to initiated [...] Phos Assessment & Plan (07/10/2021 9:08 AM JIG BOX OPERATOR): Cherelle placed 07/08, tube feeding to initiated [...] Phos Assessment & Plan (07/09/2021 2:25 PM JIG BOX OPERATOR): Cherelle placed 07/08, tube feeding to initiated [...] prn Assessment & Plan (07/08/2021 1:11 PM JIG BOX OPERATOR): Cherelle placed 07/08, tube feeding to initiate TF recommendations: Goal: Osmolite 1.5 at 55mL/hr over 24h via [place] tube continuous via pump. Flush with 150mL water q4h. Initiate TF at 10mL/hr and increase by 10mL q4h until goal rate is reached Chronic pancreatitis, unspecified pancreatitis t ype 07/06/2021 Assessment & Plan (07/13/2021 9:42 AM JIG BOX OPERATOR): Ongoing acute episode of (developing) chronic pancreatitis. [...] home Assessment & Plan (07/12/2021 9:38 AM JIG BOX OPERATOR): Ongoing acute episode of (developing) chronic pancreatitis. [...] 07/13 Assessment & Plan (07/11/2021 10:53 AM JIG BOX OPERATOR): Ongoing acute episode of (developing) chronic pancreatitis. [...] discharge Assessment & Plan (07/10/2021 9:07 AM JIG BOX OPERATOR): Ongoing acute episode of developing chronic pancreatitis. [...] feedings Assessment & Plan (07/09/2021 2:30 PM JIG BOX OPERATOR): Ongoing acute episode of chronic pancreatitis. Just [...] CTM Assessment & Plan (07/08/2021 1:49 PM JIG BOX OPERATOR): Ongoing acute episode of chronic pancreatitis. Just [...] plan Assessment & Plan (07/07/2021 11:22 AM JIG BOX OPERATOR): Ongoing acute episode of chronic pancreatitis. Just [...] plan Assessment & Plan (07/06/2021 5:30 PM JIG BOX OPERATOR): Ongoing acute episode of chronic pancreatitis. Just [...] 07/06/2021 Assessment & Plan (07/13/2021 9:42 AM JIG BOX OPERATOR): Likely ATN related to hypotensive episode. Cr peaked at Cr at 2.31, now back to baseline after aggressive IVF and now tolerating TF. Assessment & Plan (07/12/2021 9:36 AM JIG BOX OPERATOR): Likely ATN related to hypotensive episode. Cr peaked at Cr at 2.31, now back to baseline after aggressive IVF and now tolerating TF. Assessment & Plan (07/11/2021 10:54 AM JIG BOX OPERATOR): Likely ATN related to hypotensive episode. Cr peaked at Cr at 2.31, now back to baseline after aggressive IVF, continue to monitor bmp, continue fluids Assessment & Plan (07/10/2021 9:08 AM JIG BOX OPERATOR): Likely ATN related to hypotensive episode. Cr peaked at Cr at 2.31, now back to baseline after aggressive IVF, continue to monitor bmp, continue fluids Assessment & Plan (07/09/2021 2:29 PM JIG BOX OPERATOR): Cr at baseline after aggressive IVF, continue to monitor bmp, continue fluids Assessment & Plan (07/08/2021 1:10 PM JIG BOX OPERATOR): Cr baseline 0.8 now up to 1.3 on arrival due to po intolerance Aggressive IVF will monitor urine output Today net fluid intake 191 Cr trended up to 2.31 continue aggressive fluids Daily bmp Continue IVF Assessment & Plan (07/07/2021 11:19 AM JIG BOX OPERATOR): Cr baseline 0.8 now up to 1.3 on arrival due to po intolerance Aggressive IVF will monitor urine output Today net fluid intake 191 Cr 1.05 improving with fluids Daily bmp Continue IVF Assessment & Plan (07/06/2021 5:39 PM JIG BOX OPERATOR): Cr baseline 0.8 now up to 1.3 on arrival due to po intolerance Aggressive IVF will monitor urine output Alcohol dependence 06/25/2021 Assessment & Plan (06/07/2023 5:01 AM JIG BOX OPERATOR): Last drink on [place] and he reports being motivated to remain [...] program Assessment & Plan (07/13/2021 9:42 AM JIG BOX OPERATOR): Has a long history of alcohol use [...] Group Assessment & Plan (07/12/2021 9:36 AM JIG BOX OPERATOR): Has a long history of alcohol use [...] Group Assessment & Plan (07/11/2021 10:54 AM JIG BOX OPERATOR): Has a long history of alcohol use [...] Group Assessment & Plan (07/10/2021 9:05 AM JIG BOX OPERATOR): Has a long history of alcohol use [...] Group Assessment & Plan (07/09/2021 2:33 PM JIG BOX OPERATOR): Has a long history of alcohol use [...] Group Assessment & Plan (07/08/2021 1:06 PM JIG BOX OPERATOR): Has a long history of alcohol use with dependence. He states he has not had a drink since before his ERCP 06/22/2021 and has been on Vivitrol injections. His ethanol level on arrival to the ED is negative Plan to continue EtOH cessation and support with outpatient naltrexone therapy. Assessment & Plan (07/07/2021 11:13 AM JIG BOX OPERATOR): Has a long history of alcohol use with dependence. He states he has not had a drink since before his ERCP 06/22/2021 and has been on Vivitrol injections. His ethanol level on arrival to the ED is negative Plan to continue EtOH cessation and support with outpatient naltrexone therapy. Assessment & Plan (07/06/2021 5:22 PM JIG BOX OPERATOR): Has a long history of alcohol use with dependence. He states he has not had a drink since before his ERCP 06/22/2021 and has been on Vivitrol injections. His ethanol level on arrival to the ED is negative Plan to continue EtOH cessation and support with outpatient naltrexone therapy Assessment & Plan (06/28/2021 11:39 AM JIG BOX OPERATOR): Long standing hx of alcohol dependence with [...] needed Assessment & Plan (06/27/2021 11:47 AM JIG BOX OPERATOR): Long standing hx of alcohol dependence with [...] needed Assessment & Plan (06/26/2021 11:59 AM JIG BOX OPERATOR): Long standing hx of alcohol dependence with [...] 06/25/2021 Assessment & Plan (06/07/2023 5:06 AM JIG BOX OPERATOR): Markedly hypertensive on ED arrival in the setting of pain -Continue home Amlodipine 10 mg qday and losartan 25 mg qday Assessment & Plan (06/05/2023 12:47 PM JIG BOX OPERATOR): Hypertensive initially from pain. Improved today. Cont home meds. Assessment & Plan (04/12/2023 6:21 PM JIG BOX OPERATOR): -continue norvasc Assessment & Plan (04/10/2023 2:31 AM JIG BOX OPERATOR): -resume norvasc in AM Assessment & Plan (01/11/2022 11:23 AM CDT): Continue norvasc Assessment & Plan (01/10/2022 11:40 AM CDT): Continue norvasc Assessment & Plan (07/13/2021 9:43 AM JIG BOX OPERATOR): Continue to hold home lisinopril on account of recent hypotension/JOSE. With low normotensive BP will discontinue lisinopril. Follow up with PCP in 2-4 weeks to re evaluate restarting if needed Assessment & Plan (07/12/2021 9:38 AM JIG BOX OPERATOR): Continue to hold home lisinopril on account of recent hypotension/JOSE. BP normal, may not require lisinopril on discharge. Assessment & Plan (07/11/2021 10:54 AM JIG BOX OPERATOR): Continue to hold home lisinopril on account of recent hypotension/JOSE. BP normal, may not require lisinopril on discharge. Assessment & Plan (07/10/2021 9:06 AM JIG BOX OPERATOR): Continue to hold home lisinopril on account of recent hypotension Assessment & Plan (07/09/2021 2:32 PM JIG BOX OPERATOR): Continue to hold home lisinopril until more stable BP Assessment & Plan (07/08/2021 1:06 PM JIG BOX OPERATOR): BP hypotensive overnight hold antihypertensives at this time. Assessment & Plan (07/07/2021 11:15 AM JIG BOX OPERATOR): BP on remain normotensive Continue lisinopril and pain control Assessment & Plan (07/06/2021 5:30 PM JIG BOX OPERATOR): BP on arrival normotensive Continue lisinopril and pain control Assessment & Plan (06/28/2021 11:39 AM JIG BOX OPERATOR): Continue home lisinopril 40 mg -Monitor BP -BP stable Assessment & Plan (06/27/2021 11:48 AM JIG BOX OPERATOR): Continue home lisinopril 40 mg -Monitor BP/Cr -BP stable Assessment & Plan (06/25/2021 4:55 PM JIG BOX OPERATOR): Continue home lisinopril 40 mg -Monitor BP/Cr -Daily BMP Tobacco abuse 06/25/2021 Major depressive disorder 06/25/2021 Assessment & Plan (06/07/2023 5:07 AM JIG BOX OPERATOR): Continue home duloxetine 30 mg BID and trazodone 50 mg qhs Assessment & Plan (06/04/2023 11:58 AM JIG BOX OPERATOR): Cont home meds Assessment & Plan (01/11/2022 11:23 AM CDT): Continue duloxetine scheduled and trazodone prn Assessment & Plan (01/10/2022 11:40 AM CDT): Continue duloxetine scheduled and trazodone prn Assessment & Plan (07/13/2021 9:43 AM JIG BOX OPERATOR): Most certainly contributing to his long standing alcohol use. Continue home meds duloxetine and trazodone Assessment & Plan (07/12/2021 9:38 AM JIG BOX OPERATOR): Most certainly contributing to his long standing alcohol use. Continue home meds duloxetine and trazodone Assessment & Plan (07/11/2021 10:54 AM JIG BOX OPERATOR): Most certainly contributing to his long standing alcohol use. Continue home meds duloxetine and trazodone Assessment & Plan (07/10/2021 9:06 AM JIG BOX OPERATOR): Most certainly contributing to his long standing alcohol use. Continue home meds duloxetine and trazodone Assessment & Plan (07/09/2021 2:30 PM JIG BOX OPERATOR): Most certainly contributing to his long standing alcohol use now with cessation Continue home meds duloxetine and trazodone Assessment & Plan (07/08/2021 1:09 PM JIG BOX OPERATOR): Most certainly contributing to his long standing alcohol use now with cessation Continue home meds duloxetine and trazodone Assessment & Plan (07/07/2021 11:16 AM JIG BOX OPERATOR): Most certainly contributing to his long standing alcohol use now with cessation Continue home meds duloxetine and trazodone Assessment & Plan (07/06/2021 5:32 PM JIG BOX OPERATOR): Most certainly contributing to his long standing alcohol use now with cessation Continue home meds duloxetine and trazodone Assessment & Plan (06/28/2021 11:39 AM JIG BOX OPERATOR): Continue home Trazodone 50 mg, Cymbalta 30 mg Resume Biofeedback at discharge Assessment & Plan (06/27/2021 11:48 AM JIG BOX OPERATOR): Continue home Trazodone 50 mg, Cymbalta 30 mg Resume Biofeedback at discharge Assessment & Plan (06/25/2021 4:57 PM JIG BOX OPERATOR): Continue home Trazodone 50 mg, Cymbalta 30 mg Resume Biofeedback at discharge Pancreatic duct obstruction 06/11/2021 Overview (06/11/2021): Added automatically from request for surgery [id number] Abdominal pain 06/11/2021 Overview (06/11/2021): Added automatically from request for surgery [id number] Necrotizing pancreatitis 10/21/2019 Therapeutic opioid induced constipation 10/21/19 20 Assessment & Plan (07/13/2021 9:44 AM JIG BOX OPERATOR): Continue bowel regimen Assessment & Plan (07/12/2021 9:41 AM JIG BOX OPERATOR): Bowel regimen ordered without BM. Will titrate bowel regimen Assessment & Plan (07/11/2021 10:58 AM JIG BOX OPERATOR): Bowel regimen ordered Assessment & Plan (06/28/2021 11:39 AM JIG BOX OPERATOR): Pt states no BM for the past week. Likely due to decrease intake and vomiting, possible contribution from opioids -daily bowel regimen, had BM Monday Assessment & Plan (06/27/2021 11:48 AM JIG BOX OPERATOR): Pt states no BM for the past week. Likely due to decrease intake and vomiting, possible contribution from opioids -daily bowel regimen Assessment & Plan (06/26/2021 12:00 PM JIG BOX OPERATOR): Pt states no BM for the past week. Likely due to decrease intake and vomiting, possibly contribution from opioids -daily bowel regimen -clear liquid diet Acute pancreatitis 05/08/2019 Assessment & Plan (06/28/2021 11:38 AM JIG BOX OPERATOR): Hx of chronic pancreatis starting 3 years [...] prioritized. Assessment & Plan (06/27/2021 11:46 AM JIG BOX OPERATOR): Hx of chronic pancreatis starting 3 years [...] prioritized. Assessment & Plan (06/26/2021 11:59 AM JIG BOX OPERATOR): Hx of chronic pancreatis starting 3 years [...] 04/11/2023 Assessment & Plan (04/10/2023 2:38 AM JIG BOX OPERATOR): -migrated stent likely etiology of presenting symptoms and lab, CT findings -will likely need ERCP for stent exchange on Monday Metabolic acidosis, increased anion gap (IAG) 06/25/1907/09/2021 Assessment & Plan (07/09/2021 2:31 PM JIG BOX OPERATOR): Dobbhoff placed 07/08, to start tube feeding TF recommendations: Goal: Osmolite 1.5 at 55mL/hr over 24h via [place] tube continuous via pump. Flush with 150mL water q4h. Initiate TF at 10mL/hr and increase by 10mL q4h until goal rate is reached Assessment & Plan (07/08/2021 1:49 PM JIG BOX OPERATOR): Due to starvation in the setting of [...] reached Assessment & Plan (07/07/2021 11:16 AM JIG BOX OPERATOR): Due to starvation in the setting of intolerance to PO for the last 3-4 days. Will provide aggressive IVF Continue to discuss enteral feedings with the patient going forward, currently pt is refusing, GI will readdress with pt today with goal for placement today should pt agree. Change IVF to D5LR Assessment & Plan (07/06/2021 5:38 PM JIG BOX OPERATOR): Due to starvation in the setting of intolerance to PO for the last 3-4 days. Will provide aggressive IVF Continue to discuss enteral feedings with the patient going forward Assessment & Plan (06/28/2021 11:39 AM JIG BOX OPERATOR): Likely dehydration from pancreatitis, n/v and poor intake. Heme concentrated hgb 14.9 (baseline 8-9), wbc 14.4 no source of infection likely heme concentrated, anion gap 20, UA ketone +1. Resolved with IVF Assessment & Plan (06/27/2021 11:47 AM JIG BOX OPERATOR): Likely dehydration from pancreatitis, n/v and poor intake. Heme concentrated hgb 14.9 (baseline 8-9), wbc 14.4 no source of infection likely heme concentrated, anion gap 20, UA ketone +1. Resolved with IVF Assessment & Plan (06/26/2021 12:00 PM JIG BOX OPERATOR): Likely dehydration from pancreatitis, n/v and poor intake. Heme concentrated hgb 14.9 (baseline 8-9), wbc 14.4 no source of infection likely heme concentrated, anion gap 20, UA ketone +1 -IVF -Clear liquid diet -Daily bmp Encounters Date Type Department Care Team Description 07/23/2024 10:42 AM JIG BOX OPERATOR - 07/23/2024 3:32 PM JIG BOX OPERATOR Emergency [facility] Emergency Department [address] [place] [address] Discharge Disposition: Left without being seen from [...] 0.6 oz pur e alcohol) [facility] [employer] Answer Date Recorded In the past 12 [...] often do you attend chur ch or cheondoism services? 1 to 4 times per year [...] on file Legal Sex Male 1:58 AM JIG BOX OPERATOR Gender Identity Not on file Sexual Orientation Not on file Occupation Industry Job Start Date Job End Date disability Not on file Not on file Not on file Obstetrics History Last Filed Vital Signs Vital Sign Reading Time Taken Comments Blood Pressure 125/77 07/23/2024 10:51 AM JIG BOX OPERATOR Pulse 100 07/23/2024 10:51 AM JIG BOX OPERATOR Temperature 36.4 C (97.6 F) 07/23/2024 10:51 AM JIG BOX OPERATOR Respiratory Rate 16 07/23/2024 10:51 AM JIG BOX OPERATOR Oxygen Saturation 99% 07/23/2024 10:51 AM JIG BOX OPERATOR Inhaled Oxygen Concentration - - Weight 86.2 kg (190 lb) 07/23/2024 10:51 AM JIG BOX OPERATOR Height 182.9 cm (6') 07/23/2024 10:51 AM JIG BOX OPERATOR Body Mass Index 25.77 07/23/2024 10:51 AM JIG BOX OPERATOR Plan of Treatment Health Maintenance Due [...] 03/03/2019, 02/05/2018 Medical Devices Implanted Type Area Car Trimmer Device Identifier Shelf Expiration Date Model / Serial / Lot [employer] 8.5 Fr Nasal Biliary Catheter [id number] - [id number] Implanted:Qty: 1 on 01/26/2022 by Kenneth Loya MD at [facility] Catheter [employer] 06/22/2024 [id number] / / [id number] [employer] 10fr 5cm Biliary Double Pigtail Stent [id number] - [id number] Implanted:Qty: 1 on 09/21/2023 by Kenneth Loya MD at [facility] Stent N/A: Bile Duct [employer] 08/14/2025 [id number] / / [id number] [employer] 10fr 5cm Biliary Stent [id number] - [id number] Implanted:Qty: 1 on 09/21/2023 by Kenneth Loya MD at [facility] Stent N/A: Bile Duct [employer] 07/03/2025 [id number] / / [id number] [employer] 10fr 5cm Biliary Double Pigtail Stent [id number] - [id number] Implanted:Qty: 1 on 09/21/2023 by Kenneth Loya MD at [facility] Stent N/A: Bile Duct [employer] 08/23/2025 [id number] / / [id number] [employer] 10fr 5cm Biliary Double Pigtail Stent [id number] - [id number] Implanted:Qty: 1 on 09/21/2023 by Kenneth Loya MD at [facility] Stent N/A: Bile Duct [employer] 08/23/2025 [id number] / / [id number] [employer] 10fr 5cm Biliary Double Pigtail Stent [id number] - [id number] Implanted:Qty: 1 on 09/21/2023 by Kenneth Loya MD at [facility] Stent N/A: Bile Duct [employer] 08/14/2025 [id number] / / [id number] [employer] 10fr 7cm Biliary Stent [id number] - [id number] Implanted:Qty: 1 on 04/10/2023 by John De Anda MD at [facility] [employer] [id number] 12/13/2024 [id number] / / [id number] [employer] 10fr 7cm Biliary Stent [id number] - [id number] Implanted:Qty: 1 on 04/10/2023 by John De Anda MD at [facility] [employer] [id number] 02/07/2025 [id number] / / [id number] Explanted Type Area Car Trimmer Device Identifier Shelf Expiration Date Model / Serial / Lot [employer] [id number] Cotton-Young 10fr 7cm Taper Tip Guidewire Proximal Distal Flap - [id number] Implanted:Qty: 1 on 08/04/2021 by Kenneth Loya MD at [facility] Explanted:Qty: 1 on 08/30/2021 at [facility] Stent N/A: Bile Duct [employer] 01/28/2024 [id number] / / [id number] [employer] 10 X 10 Stent Delivery System [id number] - [id number] Implanted:Qty: 1 on 08/04/2021 by Kenneth Loya MD at [facility] Explanted:Qty: 1 on 08/30/2021 at [facility] Stent N/A: Bile Duct [employer] 10/13/2022 [id number] / / [id number] [employer] Geenen 7fr 7cm Positioning Sleeve Push Catheter Guidewire [id number] - [id number] Implanted:Qty: 1 on 08/30/2021 at [facility] Explanted:Qty: 1 on 11/01/2021 by Kenneth Loya MD at [facility] Stent N/A: Pancreas [employer] 11/06/2023 [id number] / / [id number] [employer] 10fr 5cm Biliary Stent [id number] - [id number] Implanted:Qty: 1 on 01/26/2022 by Kenneth Loya MD at [facility] Explanted:Qty: 1 on 04/06/2022 by Kenneth Loya MD at [facility] Stent [employer] 11/16/2023 [id number] / / [id number] [employer] Advanix Naviflex 7fr 9cm Radiopaque [place] Endo Marker Color Coded [id number] - [id number] Implanted:Qty: 1 on 01/26/2022 by Kenneth Loya MD at [facility] Explanted:Qty: 1 on 04/06/2022 at [facility] Stent [employer] 04/16/2023 [id number] / / [id number] [employer] Advanix 8.5fr 7cm Rapid Exchange Temporary [place] Stent [id number] - [id number] Implanted:Qty: 1 on 04/06/2022 by Kenneth Loya MD at [facility] Explanted:Qty: 1 on 07/06/2022 by Kenneth Loya MD at [facility] Stent N/A: Pancreas [employer] 10/26/2023 [id number] / / [id number] [employer] Advanix 8.5fr 7cm Rapid Exchange Temporary [place] Stent [id number] - [id number] Implanted:Qty: 1 on 04/06/2022 by Kenneth Loya MD at [facility] Explanted:Qty: 1 on 07/06/2022 by Kenneth Loya MD at [facility] Stent N/A: Pancreas [employer] 10/26/2023 [id number] / / [id number] [employer] 10fr 5cm Biliary Stent [id number] - [id number] Implanted:Qty: 1 on 09/08/2022 by Kenneth Loya MD at [facility] Explanted:Qty: 1 on 11/03/2022 by Kenneth Loya MD at [facility] Stent N/A: Bile Duct [employer] [employer] 08/07/2024 [id number] / / [id number] [place] [employer] 10fr 5cm Biliary Stent [id number] - [id number] Implanted:Qty: 1 on 09/08/2022 by Kenneth Loya MD at [facility] Explanted:Qty: 1 on 11/03/2022 by Kenneth Loya MD at [facility] Stent N/A: Bile Duct [place] [employer] 05/04/2024 [id number] / / [id number] [employer] [place] Flexi-Stent 7fr 7cm Small Pigtail Flexible .035in Stent 6574 - [id number] Implanted:Qty: 1 on 09/08/2022 by Kenneth Loya MD at [facility] Explanted:Qty: 1 on 11/03/2022 by Kenneth Loya MD at [facility] Stent N/A: Bile Duct [employer] 05/28/2027 [id number] / / [id number] [employer] Geenen 8.5fr 9cm Drain Obstructed Positioning Sleeve Pushing [id number] - [id number] Implanted:Qty: 1 on 04/06/2022 by Kenneth Loya MD at [facility] Explanted:Qty: 1 on 01/05/2023 by Kenneth Loya MD at [facility] Stent N/A: Pancreas [employer] 05/03/2024 [id number] / / [id number] [employer] [place] Flexi-Stent 7fr 7cm Small Pigtail Flexible .035in Stent 6574 - [id number] Implanted:Qty: 1 on 11/03/2022 by Kenneth Loya MD at [facility] Explanted:Qty: 1 on 01/05/2023 by Kenneth Loya MD at [facility] Stent N/A: Pancreas [employer] 05/28/2027 [id number] / / [id number] [place] [employer] 10fr 5cm Biliary Stent [id number] - [id number] Implanted:Qty: 1 on 11/03/2022 by Kenneth Loya MD at [facility] Explanted:Qty: 1 on 01/05/2023 at [facility] Stent N/A: Bile Duct [place] [employer] 08/15/2024 [id number] / / [id number] [employer] Cotton-Young 10fr 5cm Taper Tip Soft Proximal Distal Flap Gentle [id number] - [id number] Implanted:Qty: 1 on 11/03/2022 by Kenneth Loya MD at [facility] Explanted:Qty: 1 on 01/05/2023 by Kenneth Loya MD at [facility] Stent N/A: Bile Duct [employer] 08/10/2025 [id number] / / [id number] [employer] [place] Flexi-Stent 4fr 7cm Small Pigtail Flexible .025in Stent 6544 - [id number] Implanted:Qty: 1 on 01/05/2023 by Kenneth Loya MD at [facility] Explanted:Qty: 1 on 06/02/2023 at [facility] Stent N/A: Pancreas [employer] 07/27/2027 [id number] / / [id number] Description:Not present on t his procedure [place] [employer] 10fr 7cm Biliary Stent [id number] - [id number] Implanted:Qty: 1 on 01/05/2023 by Kenneth Loya MD at [facility] Explanted:Qty: 1 on 06/02/2023 by Jero Soto MD at [facility] Stent N/A: Bile Duct [place] [employer] 12/13/2024 [id number] / / [id number] [place] [employer] 10fr 7cm Biliary Stent [id number] - [id number] Implanted:Qty: 1 on 01/05/2023 by Kenneth Loya MD at [facility] Explanted:Qty: 1 on 06/02/2023 by Jero Soto MD at [facility] Stent N/A: Bile Duct [place] [employer] 12/13/2024 [id number] / / [id number] [place] [employer] 10fr 5cm Biliary Double Pigtail Stent [id number] - [id number] Implanted:Qty: 1 on 06/02/2023 by Kenneth Loya MD at [facility] Explanted:Qty: 1 on 09/21/2023 by Kenneth Loya MD at [facility] Stent N/A: Bile Duct [place] [employer] 04/30/2025 [id number] / / [id number] [place] [employer] 10fr 5cm Biliary Double Pigtail Stent [id number] - [id number] Implanted:Qty: 1 on 06/02/2023 by Kenneth Loya MD at [facility] Explanted:Qty: 1 on 09/21/2023 by Kenneth Loya MD at [facility] Stent N/A: Bile Duct [place] [employer] 04/30/2025 [id number] / / [id number] [place] [employer] 10fr 5cm Biliary Stent [id number] - [id number] Implanted:Qty: 1 on 06/02/2023 by Kenneth Loya MD at [facility] Explanted:Qty: 1 on 09/21/2023 by Kenneth Loya MD at [facility] Stent N/A: Bile Duct [place] [employer] 02/28/2025 [id number] / / [id number] [place] [employer] 10fr 5cm Biliary Double Pigtail Stent [id number] - [id number] Implanted:Qty: 1 on 06/02/2023 by Kenneth Loya MD at [facility] Explanted:Qty: 1 on 09/21/2023 by Kenneth Loya MD at [facility] Stent N/A: Bile Duct [place] [employer] 04/30/2025 [id number] / / [id number] [place] [employer] [id number] Ad[employer]ix 10fr 5cm Rapid Exchange Temporary [place] Stent - [id number] Implanted:Qty: 1 on 06/18/2021 by Kenneth Loya MD at [facility] Explanted:Qty: 1 on 08/30/2021 at [facility] [place] [employer] 06/30/2022 [id number] / / [id number] Description:Removed prior [place] [employer] Advanix Od10 Fr L7 Cm 1; Temporary Duodenal Bend Stent Biliary Pl [id number] - [id number] Implanted:Qty: 1 on 08/30/2021 at [facility] Explanted:Qty: 1 on 11/01/2021 by Kenneth Loya MD at [facility] N/A: Bile Duct [place] [employer] 06/25/2022 [id number] / / [id number] [place] [employer] Advanix Naviflex 10fr 9cm Lead Joana Radiopaque Flexible [id number] - [id number] Implanted:Qty: 1 on 11/01/2021 by Kenneth Loya MD at [facility] Explanted:Qty: 1 on 01/05/2022 by Contreras Girard MD at [facility] N/A: Pancreas [place] [employer] 07/18/2022 [id number] / / [id number] 10fr 5cm Biliary Stent [id number] - [id number] Implanted:Qty: 1 on 11/01/2021 by Kenneth Loya MD at [facility] Explanted:Qty: 1 on 01/05/2022 at [facility] N/A: Bile Duct [place] [employer] 08/12/2023 [id number] / / [id number] 10fr 7cm Biliary Stent [id number] - [id number] Implanted:Qty: 1 on 11/01/2021 by Kenneth Loya MD at [facility] Explanted:Qty: 1 on 01/05/2022 by Contreras Girard MD at [facility] N/A: Bile Duct [place] [employer] 08/23/2023 [id number] / / [id number] [employer] Cotton-Young 10fr 5cm Taper Tip Soft Proximal Distal Flap Gentle [id number] - [id number] Implanted:Qty: 1 on 01/05/2022 by Contreras Girard MD at [facility] Explanted:Qty: 1 on 01/26/2022 at [facility] N/A: Bile Duct [employer] 05/07/2022 [id number] / / [id number] [place] [employer] Advanix 7fr 7cm Lead Joana Radiopaque [place] Endo Marker Drainage [id number] - [id number] Implanted:Qty: 1 on 07/06/2022 by Kenneth Loya MD at [facility] Explanted:Qty: 1 on 09/08/2022 by Kenneth Loya MD at [facility] N/A: Pancreas [place] [employer] 05/03/2023 [id number] / / [id number] [place] [employer] 10fr 5cm Biliary Stent [id number] - [id number] Implanted:Qty: 1 on 07/06/2022 by Kenneth Loya MD at [facility] Explanted:Qty: 1 on 09/08/2022 by Kenneth Loya MD at [facility] N/A: Bile Duct [place] [employer] 12/24/2022 [id number] / / [id number] [place] [employer] 10fr 5cm Biliary Stent [id number] - [id number] Implanted:Qty: 1 on 07/06/2022 by Kenneth Loya MD at [facility] Explanted:Qty: 1 on 09/08/2022 by Kenneth Loya MD at [facility] N/A: Bile Duct [place] [employer] 11/16/2023 [id number] / / [id number] [place] [employer] 10fr 7cm Biliary Stent [id number] - [id number] Explanted:Qty: 1 on 04/10/2023 by John De Anda MD at [facility] [employer] [place] [employer] [id number] 12/13/2024 [id number] / / [id number] Description:Unable to place despite multiple attempts Procedures Procedure Name Priority Date/Time Associated Diagnosis Comments EGFR STAT 07/23/2024 11:01 AM JIG BOX OPERATOR DIFFERENTIAL AUTO STAT 07/23/2024 11: 01 AM JIG BOX OPERATOR ETHANOL STAT 07/23/2024 11:01 AM JIG BOX OPERATOR CBC WITH AUTO DIFFERENTIAL STAT 07/23/2024 11:01 AM JIG BOX OPERATOR COMPREHENSIVE METABOLIC PANEL STAT 07/23/2024 11:01 AM JIG BOX OPERATOR from Last 3 Months Results * eGFR (07/23/2024 11:01 AM JIG BOX OPERATOR) eGFR >90 >=60 mL/min/1. 73 m2 Comment: [...] reviewed 2021. Blood 07/23/2024 11:0 1 AM JIG BOX OPERATOR 07/23/2024 11:03 AM JIG BOX OPERATOR Jonny Parada MD LAB BLOOD ORDERABLES Final Res ult [facility] Department [place] [address] * Differential, auto (07/23/2024 11:01 AM JIG BOX OPERATOR) Neutrophil abs 1.7 1.5 - 6.5 K/cumm [...] on 2017. Blood 07/23/2024 11:0 1 AM JIG BOX OPERATOR 07/23/2024 11:03 AM JIG BOX OPERATOR us Jonny Parada MD LAB BLOOD ORDERABLES Final Res ult [facility] ([place] 1 [facility] Department [place] [address] * (ABNORMAL) CBC with auto differential (07/23/2024 11:01 AM JIG BOX OPERATOR) Pathologist [facility] WBC 3.9 3.8 - 9.9 K/cumm Hgb [...] [facility] ([place]) Blood 07/23/2024 11:0 1 AM JIG BOX OPERATOR 07/23/2024 11:03 AM JIG BOX OPERATOR us Jonny Parada MD LAB BLOOD ORDERABLES Final Res ult [facility] ([place]) 1 [facility] Department [place] [address] * (ABNORMAL) Ethanol (07/23/2024 11:01 AM JIG BOX OPERATOR) Pathologist [facility] Ethanol 314(C) <=10 mg/dL Comment: Critical Result called by [email or web address] at 2024-07-23 11:26:12. Result Read Back by Marine Quan ED Interpretive Data Legal limit of intoxication > or = 80 mg/dL Levels > or = 400 mg/dL are potentially TOXIC. Current interpretive data was last revised on 2018. Blood 07/23/2024 11:0 1 AM JIG BOX OPERATOR 07/23/2024 11:03 AM JIG BOX OPERATOR us Jonny Parada MD LAB BLOOD ORDERABLES Final Res ult [facility] ([place] 1 [facility] Department [place] [address] * (ABNORMAL) Comprehensive metabolic panel (07/23/2024 11:01 AM JIG BOX OPERATOR) Sodium 144 135 - 145 mmol/L Potassium, [...] [facility] Blood 07/23/2024 11:0 1 AM JIG BOX OPERATOR 07/23/2024 11:03 AM JIG BOX OPERATOR Jonny Parada MD LAB BLOOD ORDERABLES Final Res ult [facility] ([place] 1 [facility] Department [place] [address] from Last 3 Months Insurance MEDICARE [employer] Advance Directives For more information, please contact: [phone] * Full Code (Latest Code Status on [...] 7:36 AM 06/02/2023 3:26 PM Care Teams Vision Impaired Teacher Relationship Specialty Start Date End Date Don Walton PA [address] [address] PCP - General Physician Oriental Rug Stretcher 12/28/21
--- OUTSIDE RECORDS SUMMARY | 2024-08-03 18:04 | XMS_ITS | Clinical Summary ---
Author Organization [facility] Address [address], [facility] [address] [place] [address] Phone Care Team Providers Care Plastic Parts Fabricator Name Role Phone Lamberto Barker Nasra RUCKER Primary Care Provider [phone] Social History Tobacco Use Types Packs/Day Years Used Date Smoking Tobacco: Never Assessed Sex and Gender Information Value Date Recorded Sex Assigned at Not on file Legal Sex Male 8:46 AM CDT Gender Identity Not on file Sexual Orientation Not on file Plan of Treatment Not on file Insurance [facility] MEDICARE C [employer] Care Teams Plastic Parts Fabricator Relationship Specialty Start Date End Date Lamberto Barker DO [address] [place] [address] PCP - General Internal Medicine 09/18/19
--- OUTSIDE RECORDS SUMMARY | 2024-08-03 18:04 | XMS_ITS | Encounter Summary ---
Author Organization [facility] Address [address] [place] [address] Care Team Providers Care Aircraft Worker Name Role Phone Lamberto Barker MD Primary Care Provider [phone] Encounter Details Date Type Department Care Team (Late st Contact Info) Description 11/07/2022 Bar & Club Stats Message Enc [facility] on [address] [address] [place], [facility] Provider Echocardiogram Social History Tobacco Use Types [...] you attend chur ch or buddhist services? 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 Answer Date of Assessment Author Status No 06/20/2021 1:29 AM SCIENTIFIC PROGRAMMER ANALYST Activ e * Do you have serious [...] documented as of this encounter Care Teams Aircraft Worker Relationship Specialty Start Date End Date Lamberto Barker MD [address] [place] [address] PCP - General INTERNAL MEDICINE 05/08/19 documented as of this encounter
--- OUTSIDE RECORDS SUMMARY | 2024-08-03 18:04 | XMS_ITS | Referral Summary ---
Author Organization [facility] Address [address] [place] [address] Care Team Providers Care Supervisor Files Name Role Phone Don Walton Primary Care Provider Encounters Date Type Department Care Team Description 07/23/2024 10:42 AM [facility] [employer] [employer] - 07/23/2024 3:32 PM [facility] Emergency [facility] Emergency Department [address] [place] [address] Discharge Disposition: Left without being seen from Last 3 Months Allergies Active Allergy Reactions Criticality Noted Date Comments Ciprofloxacin Hives Medium 06/02/2023 Patient stated he has previously tolerated PO. 06/02/23 had redness and hives after IV dose. Penicillins Rash Medium 05/08/2019 Mdxgkhbialdi-Apkhaujzvm-Ruc trs Angioedema High 09/17/[address] [...] daily 30 patch 01/12/20 22 Active multivit lonisafa-yzyd-JQ-c alcium (THERA-M) 9 mg iron-400 mcg tabletIndications: [...] 06/10/2023 Assessment & Plan (06/12/2023 2:18 PM [facility]ICE PRESIDENT [employer]): Patient reports feeling constipated, gassy and bloated. [...] 06/08/2023 Assessment & Plan (06/09/2023 1:55 PM VICE PRESIDENT [employer]): Resolved. Acute pancreatitis, unspecif ied complication status, unspecified pancreatitis type 06/04/2023 Assessment & Plan (06/05/2023 12:45 PM [employer]ICE [employer]IDENT [employer]): Longstanding bouts of pancreatitis originally from EtOH [...] 06/04/2023 Assessment & Plan (06/05/2023 12:48 PM [employer]ICE [employer]IDENT [employer]): Likely from pancreatitis. Also tender to palpation initially so may be a musculoskeletal component from dry heaving. Trops negative. EKG no ischemic changes. He reports hx of AK in the past, unclear circumstances. He had an exercise stress test in spring at an outside facility that he says was normal. Cont ASA. Gram-negative bacteremia 04/11/2023 Assessment & Plan (04/13/2023 7:02 PM [employer]ICE [employer]IDENT [employer]): - due to cholangitis - BCx + for E coli and K. Pneumoniae - repeat BCx drawn 04/11, ngtd - pansensitive organisms - d/c home today with flagyl/cipro Cholangitis 04/10/2023 Assessment & Plan (04/12/2023 6:21 PM [employer]ICE [employer]): - Improving - 04/10 ERCP - removal of two migrates stents with biliary obstruction and replaced with 2 new stents in biliary stricture - PRN analgesics and antiemetics Assessment & Plan (04/10/2023 2:40 AM [employer]ICE PRESIDENT [employer]): -meets [place] criteria for acute cholangitis based [...] less likely MRCP------> GI consult ordered in [facility] -NPO x sips, ice chips -IVFs overnight -PRN analgesics and antiemetics -repeat CBC, BMP, HFP in AM 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 Encounter for removal of biliary stent 3 Acute recurrent pancreatitis 01/26/2022 Post-ERCP acute pancreatitis 01/04/2022 Assessment & Plan (06/13/2023 2:35 PM [employer]ICE PRESIDENT [employer]): Recently admitted from 06/04-06/05/23 after ERCP on [...] (01/05/2022): Added automatically from request for surgery [id number] Assessment & Plan (04/11/2023 3:57 PM [employer]ICE [employer]IDENT [employer]): - improving -2/2 stent migration and resultant biliary obstruction Assessment & Plan (04/10/2023 2:27 AM VICE PRESIDENT [employer]): -2/2 stent migration and resultant biliary obstruction -mgmt as above -repeat HFP in AM 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 Overview (11/30/2021): Added automatically from request for surgery [id number] Encounter for replacement of biliary stent 11/30 Overview (11/30/2021): Added automatically from request for surgery [id number] 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 Pancreatic pseudocyst 07/26/2021 Severe sepsis 07/08/2021 Assessment & Plan (07/13/2021 9:43 AM VICE PRESIDENT [employer]): Pt elevated temp on 07/07 overnight 38.1 [...] infection Assessment & Plan (07/12/2021 9:40 AM VICE PRESIDENT [employer]): Pt elevated temp on 2 overnight 38.1 [...] infection Assessment & Plan (07/11/2021 10:55 AM VICE PRESIDENT [employer]): Pt elevated temp on 2 overnight 38.1 [...] bed Assessment & Plan (07/10/2021 9:10 AM VICE PRESIDENT [employer]): Pt elevated temp on 07/07 overnight 38.1 [...] daily Assessment & Plan (07/09/2021 2:23 PM [employer]ICE [employer]IDENT [employer]): Pt elevated temp on 2 overnight 38.1 [...] daily Assessment & Plan (07/08/2021 1:53 PM [employer]ICE [employer]IDENT [employer]): Pt elevated temp overnight 38.1 max, hypotensive [...] 07/07/2021 Assessment & Plan (07/13/2021 9:43 AM VICE PRESIDENT [employer]): Dobbhoff placed 2/10, tube feeding to initiated Osmolite 1.5 at 55mL/hr over 24h via [place] tube continuous via pump. Flush with 150mL water q4h. Now at goal of 55cc/hr. Can cycle at home as instructed. Will continue TF until follow up with GI as outpatient Assessment & Plan (07/12/2021 9:39 AM [employer]ICE [employer]IDENT [employer]): Dobbhoff placed 2/10, tube feeding to initiated Osmolite 1.5 at 55mL/hr over 24h via NJ tube continuous via pump. Flush with 150mL water q4h. Now at goal of 55cc/hr. Can cycle at home as instructed. Will continue TF until follow up with GI as outpatient Assessment & Plan (07/11/2021 10:55 AM [employer]IDENT [employer]): Dobbhoff placed 2/10, tube feeding to initiated [...] Phos Assessment & Plan (07/10/2021 9:08 AM VICE PRESIDENT [employer]): Dobbhoff placed 07/08, tube feeding to initiated [...] Phos Assessment & Plan (07/09/2021 2:25 PM [employer]ICE [employer]IDENT [employer]): Dobbhoff placed 07/08, tube feeding to initiated [...] prn Assessment & Plan (07/08/2021 1:11 PM [employer]ICE [employer]IDENT [employer]): Dobbhoff placed 07/08, tube feeding to initiate TF recommendations: Goal: Osmolite 1.5 at 55mL/hr over 24h via [place] tube continuous via pump. Flush with 150mL water q4h. Initiate TF at 10mL/hr and increase by 10mL q4h until goal rate is reached Chronic pancreatitis, unspecified pancreatitis t ype 07/06/2021 Assessment & Plan (07/13/2021 9:42 AM [employer]ICE [employer]IDENT [employer]): Ongoing acute episode of (developing) chronic pancreatitis. [...] home Assessment & Plan (07/12/2021 9:38 AM [employer]ICE [employer]IDENT [employer]): Ongoing acute episode of (developing) chronic pancreatitis. [...] 07/13 Assessment & Plan (07/11/2021 10:53 AM [employer]ICE [employer]IDENT [employer]): Ongoing acute episode of (developing) chronic pancreatitis. [...] discharge Assessment & Plan (07/10/2021 9:07 AM VICE PRESIDENT [employer]): Ongoing acute episode of developing chronic pancreatitis. [...] feedings Assessment & Plan (07/09/2021 2:30 PM [employer]ICE [employer]IDENT [employer]): Ongoing acute episode of chronic pancreatitis. Just [...] CTM Assessment & Plan (07/08/2021 1:49 PM [employer]ICE [employer]IDENT [employer]): Ongoing acute episode of chronic pancreatitis. Just [...] plan Assessment & Plan (07/07/2021 11:22 AM VICE PRESIDENT [employer]): Ongoing acute episode of chronic pancreatitis. Just [...] plan Assessment & Plan (07/06/2021 5:30 PM [employer]ICE PRESIDENT [employer]): Ongoing acute episode of chronic pancreatitis. Just [...] 07/06/2021 Assessment & Plan (07/13/2021 9:42 AM VICE PRESIDENT [employer]): Likely ATN related to hypotensive episode. Cr peaked at Cr at 2.31, now back to baseline after aggressive IVF and now tolerating TF. Assessment & Plan (07/12/2021 9:36 AM VICE PRESIDENT [employer]): Likely ATN related to hypotensive episode. Cr peaked at Cr at 2.31, now back to baseline after aggressive IVF and now tolerating TF. Assessment & Plan (07/11/2021 10:54 AM VICE PRESIDENT [employer]): Likely ATN related to hypotensive episode. Cr peaked at Cr at 2.31, now back to baseline after aggressive IVF, continue to monitor bmp, continue fluids Assessment & Plan (07/10/2021 9:08 AM VICE PRESIDENT [employer]): Likely ATN related to hypotensive episode. Cr peaked at Cr at 2.31, now back to baseline after aggressive IVF, continue to monitor bmp, continue fluids Assessment & Plan (07/09/2021 2:29 PM [employer]ICE [employer]IDENT [employer]): Cr at baseline after aggressive IVF, continue to monitor bmp, continue fluids Assessment & Plan (07/08/2021 1:10 PM [employer]ICE PRESIDENT [employer]): Cr baseline 0.8 now up to 1.3 on arrival due to po intolerance Aggressive IVF will monitor urine output Today net fluid intake 191 Cr trended up to 2.31 continue aggressive fluids Daily bmp Continue IVF Assessment & Plan (07/07/2021 11:19 AM VICE PRESIDENT [employer]): Cr baseline 0.8 now up to 1.3 on arrival due to po intolerance Aggressive IVF will monitor urine output Today net fluid intake 191 Cr 1.05 improving with fluids Daily bmp Continue IVF Assessment & Plan (07/06/2021 5:39 PM VICE PRESIDENT [employer]): Cr baseline 0.8 now up to 1.3 on arrival due to po intolerance Aggressive IVF will monitor urine output Alcohol dependence 06/25/2021 Assessment & Plan (06/07/2023 5:01 AM VICE PRESIDENT [employer]): Last drink on and he reports being [...] program Assessment & Plan (07/13/2021 9:42 AM VICE PRESIDENT [employer]): Has a long history of alcohol use [...] Group Assessment & Plan (07/12/2021 9:36 AM VICE PRESIDENT [employer]): Has a long history of alcohol use [...] Group Assessment & Plan (07/11/2021 10:54 AM VICE PRESIDENT [employer]): Has a long history of alcohol use [...] Group Assessment & Plan (07/10/2021 9:05 AM VICE PRESIDENT [employer]): Has a long history of alcohol use [...] Group Assessment & Plan (07/09/2021 2:33 PM VICE PRESIDENT [employer]): Has a long history of alcohol use [...] Group Assessment & Plan (07/08/2021 1:06 PM VICE PRESIDENT [employer]): Has a long history of alcohol use with dependence. He states he has not had a drink since before his ERCP 06/22/2021 and has been on Vivitrol injections. His ethanol level on arrival to the ED is negative Plan to continue EtOH cessation and support with outpatient naltrexone therapy. Assessment & Plan (07/07/2021 11:13 AM VICE PRESIDENT [employer]): Has a long history of alcohol use with dependence. He states he has not had a drink since before his ERCP 06/22/2021 and has been on Vivitrol injections. His ethanol level on arrival to the ED is negative Plan to continue EtOH cessation and support with outpatient naltrexone therapy. Assessment & Plan (07/06/2021 5:22 PM VICE PRESIDENT [employer]): Has a long history of alcohol use with dependence. He states he has not had a drink since before his ERCP 06/22/2021 and has been on Vivitrol injections. His ethanol level on arrival to the ED is negative Plan to continue EtOH cessation and support with outpatient naltrexone therapy Assessment & Plan (06/28/2021 11:39 AM VICE PRESIDENT [employer]): Long standing hx of alcohol dependence with [...] needed Assessment & Plan (06/27/2021 11:47 AM VICE PRESIDENT [employer]): Long standing hx of alcohol dependence with [...] needed Assessment & Plan (06/26/2021 11:59 AM VICE PRESIDENT [employer]): Long standing hx of alcohol dependence with [...] 06/25/2021 Assessment & Plan (06/07/2023 5:06 AM VICE PRESIDENT [employer]): Markedly hypertensive on ED arrival in the setting of pain -Continue home Amlodipine 10 mg qday and losartan 25 mg qday Assessment & Plan (06/05/2023 12:47 PM VICE PRESIDENT [employer]): Hypertensive initially from pain. Improved today. Cont home meds. Assessment & Plan (04/12/2023 6:21 PM [employer]ICE PRESIDENT [employer]): -continue norvasc Assessment & Plan (04/10/2023 2:31 AM VICE PRESIDENT [employer]): -resume norvasc in AM Assessment & Plan (01/11/2022 11:23 AM CDT): Continue norvasc Assessment & Plan (01/10/2022 11:40 AM CDT): Continue norvasc Assessment & Plan (07/13/2021 9:43 AM VICE PRESIDENT [employer]): Continue to hold home lisinopril on account of recent hypotension/JOSE. With low normotensive BP will discontinue lisinopril. Follow up with PCP in 2-4 weeks to re evaluate restarting if needed Assessment & Plan (07/12/2021 9:38 AM VICE PRESIDENT [employer]): Continue to hold home lisinopril on account of recent hypotension/JOSE. BP normal, may not require lisinopril on discharge. Assessment & Plan (07/11/2021 10:54 AM VICE PRESIDENT [employer]): Continue to hold home lisinopril on account of recent hypotension/JOSE. BP normal, may not require lisinopril on discharge. Assessment & Plan (07/10/2021 9:06 AM VICE PRESIDENT [employer]): Continue to hold home lisinopril on account of recent hypotension Assessment & Plan (07/09/2021 2:32 PM VICE PRESIDENT [employer]): Continue to hold home lisinopril until more stable BP Assessment & Plan (07/08/2021 1:06 PM VICE PRESIDENT [employer]): BP hypotensive overnight hold antihypertensives at this time. Assessment & Plan (07/07/2021 11:15 AM VICE PRESIDENT [employer]): BP on remain normotensive Continue lisinopril and pain control Assessment & Plan (07/06/2021 5:30 PM VICE PRESIDENT [employer]): BP on arrival normotensive Continue lisinopril and pain control Assessment & Plan (06/28/2021 11:39 AM VICE PRESIDENT [employer]): Continue home lisinopril 40 mg -Monitor BP -BP stable Assessment & Plan (06/27/2021 11:48 AM VICE PRESIDENT [employer]): Continue home lisinopril 40 mg -Monitor BP/Cr -BP stable Assessment & Plan (06/25/2021 4:55 PM VICE PRESIDENT [employer]): Continue home lisinopril 40 mg -Monitor BP/Cr -Daily BMP Tobacco abuse 06/25/2021 Major depressive disorder 06/25/2021 Assessment & Plan (06/07/2023 5:07 AM VICE PRESIDENT [employer]): Continue home duloxetine 30 mg BID and trazodone 50 mg qhs Assessment & Plan (06/04/2023 11:58 AM VICE PRESIDENT [employer]): Cont home meds Assessment & Plan (01/11/2022 11:23 AM CDT): Continue duloxetine scheduled and trazodone prn Assessment & Plan (01/10/2022 11:40 AM CDT): Continue duloxetine scheduled and trazodone prn Assessment & Plan (07/13/2021 9:43 AM VICE PRESIDENT [employer]): Most certainly contributing to his long standing alcohol use. Continue home meds duloxetine and trazodone Assessment & Plan (07/12/2021 9:38 AM VICE PRESIDENT [employer]): Most certainly contributing to his long standing alcohol use. Continue home meds duloxetine and trazodone Assessment & Plan (07/11/2021 10:54 AM VICE PRESIDENT [employer]): Most certainly contributing to his long standing alcohol use. Continue home meds duloxetine and trazodone Assessment & Plan (07/10/2021 9:06 AM VICE PRESIDENT [employer]): Most certainly contributing to his long standing alcohol use. Continue home meds duloxetine and trazodone Assessment & Plan (07/09/2021 2:30 PM VICE PRESIDENT [employer]): Most certainly contributing to his long standing alcohol use now with cessation Continue home meds duloxetine and trazodone Assessment & Plan (07/08/2021 1:09 PM VICE PRESIDENT [employer]): Most certainly contributing to his long standing alcohol use now with cessation Continue home meds duloxetine and trazodone Assessment & Plan (07/07/2021 11:16 AM VICE PRESIDENT [employer]): Most certainly contributing to his long standing alcohol use now with cessation Continue home meds duloxetine and trazodone Assessment & Plan (07/06/2021 5:32 PM VICE PRESIDENT [employer]): Most certainly contributing to his long standing alcohol use now with cessation Continue home meds duloxetine and trazodone Assessment & Plan (06/28/2021 11:39 AM VICE PRESIDENT [employer]): Continue home Trazodone 50 mg, Cymbalta 30 mg Resume Biofeedback at discharge Assessment & Plan (06/27/2021 11:48 AM VICE PRESIDENT [employer]): Continue home Trazodone 50 mg, Cymbalta 30 mg Resume Biofeedback at discharge Assessment & Plan (06/25/2021 4:57 PM VICE PRESIDENT [employer]): Continue home Trazodone 50 mg, Cymbalta 30 mg Resume Biofeedback at discharge Pancreatic duct obstruction 06/11/2021 Overview (06/11/2021): Added automatically from request for surgery [id number] Abdominal pain 06/11/2021 Overview (06/11/2021): Added automatically from request for surgery [id number] Necrotizing pancreatitis 10/21/2019 Therapeutic opioid induced constipation 10/21/19 20 Assessment & Plan (07/13/2021 9:44 AM VICE PRESIDENT [employer]): Continue bowel regimen Assessment & Plan (07/12/2021 9:41 AM VICE PRESIDENT [employer]): Bowel regimen ordered without BM. Will titrate bowel regimen Assessment & Plan (07/11/2021 10:58 AM VICE PRESIDENT [employer]): Bowel regimen ordered Assessment & Plan (06/28/2021 11:39 AM VICE PRESIDENT [employer]): Pt states no BM for the past week. Likely due to decrease intake and vomiting, possible contribution from opioids -daily bowel regimen, had BM Monday Assessment & Plan (06/27/2021 11:48 AM VICE PRESIDENT [employer]): Pt states no BM for the past week. Likely due to decrease intake and vomiting, possible contribution from opioids -daily bowel regimen Assessment & Plan (06/26/2021 12:00 PM VICE PRESIDENT [employer]): Pt states no BM for the past week. Likely due to decrease intake and vomiting, possibly contribution from opioids -daily bowel regimen -clear liquid diet Acute pancreatitis 05/08/2019 Assessment & Plan (06/28/2021 11:38 AM VICE PRESIDENT [employer]): Hx of chronic pancreatis starting 3 years [...] prioritized. Assessment & Plan (06/27/2021 11:46 AM VICE PRESIDENT [employer]): Hx of chronic pancreatis starting 3 years [...] prioritized. Assessment & Plan (06/26/2021 11:59 AM VICE PRESIDENT [employer]ERS[employer]): Hx of chronic pancreatis starting 3 years [...] 04/11/2023 Assessment & Plan (04/10/2023 2:38 AM VICE PRESIDENT [employer]): -migrated stent likely etiology of presenting symptoms and lab, CT findings -will likely need ERCP for stent exchange on Monday Metabolic acidosis, increased anion gap (IAG) 06/25/19 22 07/09/2021 Assessment & Plan (07/09/2021 2:31 PM VICE PRESIDENT [employer]): Dobbhoff placed 07/08, to start tube feeding TF recommendations: Goal: Osmolite 1.5 at 55mL/hr over 24h via [place] tube continuous via pump. Flush with 150mL water q4h. Initiate TF at 10mL/hr and increase by 10mL q4h until goal rate is reached Assessment & Plan (07/08/2021 1:49 PM VICE PRESIDENT [employer]): Due to starvation in the setting of [...] reached Assessment & Plan (07/07/2021 11:16 AM VICE PRESIDENT [employer]): Due to starvation in the setting of intolerance to PO for the last 3-4 days. Will provide aggressive IVF Continue to discuss enteral feedings with the patient going forward, currently pt is refusing, GI will readdress with pt today with goal for placement today should pt agree. Change IVF to D5LR Assessment & Plan (07/06/2021 5:38 PM VICE PRESIDENT [employer]): Due to starvation in the setting of intolerance to PO for the last 3-4 days. Will provide aggressive IVF Continue to discuss enteral feedings with the patient going forward Assessment & Plan (06/28/2021 11:39 AM VICE PRESIDENT [employer]ERSITY): Likely dehydration from pancreatitis, n/v and poor intake. Heme concentrated hgb 14.9 (baseline 8-9), wbc 14.4 no source of infection likely heme concentrated, anion gap 20, UA ketone +1. Resolved with IVF Assessment & Plan (06/27/2021 11:47 AM VICE PRESIDENT [employer]ERSITY): Likely dehydration from pancreatitis, n/v and poor intake. Heme concentrated hgb 14.9 (baseline 8-9), wbc 14.4 no source of infection likely heme concentrated, anion gap 20, UA ketone +1. Resolved with IVF Assessment & Plan (06/26/2021 12:00 PM VICE PRESIDENT [employer]ERS[employer]): Likely dehydration from pancreatitis, n/v and poor [...] drink = 0.6 oz pur e alcohol) [facility] Utilities Answer Date Recorded In the past [...] often do you attend chur ch or moravian services? 1 to 4 times per year [...] slept in a correction (including now)? No 09/21/2023 Personal Safety Answer Date Recorded Have you ever been in or are you currently in a harmful physical or emotional relationship or is someone making you feel afraid or unsafe? Denies 07/23/2024 Sex and Gender Information Value Date Recorded Sex Assigned at Not on file Legal Sex Male 1:58 AM VICE PRESIDENT [employer] Gender Identity Not on file Sexual Orientation Not on file Occupation Industry Job Start Date Job End Date disability Not on file Not on file Not on file Last Filed Vital Signs Vital Sign Reading Time Taken Comments Blood Pressure 125/77 07/23/2024 10:51 AM VICE PRESIDENT [employer] Pulse 100 07/23/2024 10:51 AM [employer]ICE PRESIDENT [employer] Temperature 36.4 C (97.6 F) 07/23/2024 10:51 AM [employer] Respiratory Rate 16 07/23/2024 10:51 AM [employer]ICE PRESIDENT [employer] Oxygen Saturation 99% 07/23/2024 10:51 AM [employer]ICE PRESIDENT [employer] Inhaled Oxygen Concentration - - Weight 86.2 kg (190 lb) 07/23/2024 10:51 AM [employer]ICE PRESIDENT [employer] Height 182.9 cm (6') 07/23/2024 10:51 AM [employer]ICE PRESIDENT [employer] Body Mass Index 25.77 07/23/2024 10:51 AM VICE PRESIDENT [employer] Plan of Treatment Not on file Medical Devices Implanted Type Area Purchasing Internship Device Identifier Shelf Expiration Date Model / Serial / Lot [employer] Kemal 8.5 Fr Nasal Biliary Catheter [id number] - [id number] Implanted:Qty: 1 on 01/26/2022 by Kenneth Loya MD at [facility] Catheter [employer] 06/22/2024 [id number] / / [id number] [employer] 10fr 5cm Biliary Double Pigtail Stent [id number] - [id number] Implanted:Qty: 1 on 09/21/2023 by Kenneth Loya MD at [facility] Stent N/A: Bile Duct [employer] 08/14/2025 [id number] / / [id number] [employer] 10fr 5cm Biliary Stent [id number] - [id number] Implanted:Qty: 1 on 09/21/2023 by Kenneth Loya MD at [facility] Stent N/A: Bile Duct [employer] 07/03/2025 [id number] / / [id number] [employer] 10fr 5cm Biliary Double Pigtail Stent [id number] - [id number] Implanted:Qty: 1 on 09/21/2023 by Kenneth Loya MD at [facility] Stent N/A: Bile Duct [employer] 08/23/2025 [id number] / / [id number] [employer] 10fr 5cm Biliary Double Pigtail Stent [id number] - [id number] Implanted:Qty: 1 on 09/21/2023 by Kenneth Loya MD at [facility] Stent N/A: Bile Duct [employer] 08/23/2025 [id number] / / [id number] [employer] 10fr 5cm Biliary Double Pigtail Stent [id number] - [id number] Implanted:Qty: 1 on 09/21/2023 by Kenneth Loya MD at [facility] Stent N/A: Bile Duct [employer] 08/14/2025 [id number] / / [id number] [employer] 10fr 7cm Biliary Stent [id number] - [id number] Implanted:Qty: 1 on 04/10/2023 by John De Anda MD at [facility] [employer] [id number] 12/13/2024 [id number] / / [id number] [employer] 10fr 7cm Biliary Stent [id number] - [id number] Implanted:Qty: 1 on 04/10/2023 by John De Anda MD at [facility] [employer] [id number] 02/07/2025 [id number] / / [id number] Explanted Type Area Purchasing Internship Device Identifier Shelf Expiration Date Model / Serial / Lot [employer] [id number] Cotton-Young 10fr 7cm Taper Tip Guidewire Proximal Distal Flap - [id number] Implanted:Qty: 1 on 08/04/2021 by Kenneth Loya MD at [facility] Explanted:Qty: 1 on 08/30/2021 at [facility] Stent N/A: Bile Duct [employer] 01/28/2024 [id number] / / [id number] A[employer] 10 X 10 Stent Delivery System [id number] - [id number] Implanted:Qty: 1 on 08/04/2021 by Kenneth Loya MD at [facility] Explanted:Qty: 1 on 08/30/2021 at [facility] Stent N/A: Bile Duct [employer] 10/13/2022 [id number] / / [id number] [employer] Geenen 7fr 7cm Positioning Sleeve Push Catheter Guidewire [id number] - [id number] Implanted:Qty: 1 on 08/30/2021 at [facility] Explanted:Qty: 1 on 11/01/2021 by Kenneth Loya MD at [facility] Stent N/A: Pancreas [employer] 11/06/2023 [id number] / / [id number] [employer] 10fr 5cm Biliary Stent [id number] - [id number] Implanted:Qty: 1 on 01/26/2022 by Kenneth Loya MD at [facility] Explanted:Qty: 1 on 04/06/2022 by Kenneth Loya MD at [facility] Stent [employer] 11/16/2023 [id number] / / [id number] [employer] Advanix Naviflex 7fr 9cm Radiopaque [place] Endo Marker Color Coded [id number] - [id number] Implanted:Qty: 1 on 01/26/2022 by Kenneth Loya MD at [facility] Explanted:Qty: 1 on 04/06/2022 at [facility] Stent [employer] 04/16/2023 [id number] / / [id number] [employer] Advanix 8.5fr 7cm Rapid Exchange Temporary [place] Stent [id number] - [id number] Implanted:Qty: 1 on 04/06/2022 by Kenneth Loya MD at [facility] Explanted:Qty: 1 on 07/06/2022 by Kenneth Loya MD at [facility] Stent N/A: Pancreas [employer] 10/26/2023 [id number] / / [id number] [employer] Advanix 8.5fr 7cm Rapid Exchange Temporary [place] Stent [id number] - [id number] Implanted:Qty: 1 on 04/06/2022 by Kenneth Loya MD at [facility] Explanted:Qty: 1 on 07/06/2022 by Kenneth Loya MD at [facility] Stent N/A: Pancreas [employer] 10/26/2023 [id number] / / [id number] [employer] 10fr 5cm Biliary Stent [id number] - [id number] Implanted:Qty: 1 on 09/08/2022 by Kenneth Loya MD at [facility] Explanted:Qty: 1 on 11/03/2022 by Kenneth Loya MD at [facility] Stent N/A: Bile Duct [employer] 08/07/2024 [id number] / / [id number] [employer] Ekmal 10fr 5cm Biliary Stent [id number] - [id number] Implanted:Qty: 1 on 09/08/2022 by Kenneth Loya MD at [facility] Explanted:Qty: 1 on 11/03/2022 by Kenneth Loya MD at [facility] Stent N/A: Bile Duct [employer] 05/04/2024 [id number] / / [id number] [employer] Flexi-Stent 7fr 7cm Small Pigtail Flexible .035in Stent 6574 - [id number] Implanted:Qty: 1 on 09/08/2022 by Kenneth Loya MD at [facility] Explanted:Qty: 1 on 11/03/2022 by Kenneth Loya MD at [facility] Stent N/A: Bile Duct [employer] 05/28/2027 [id number] / / [id number] [employer] Geenen 8.5fr 9cm Drain Obstructed Positioning Sleeve Pushing [id number] - [id number] Implanted:Qty: 1 on 04/06/2022 by Kenneth Loya MD at [facility] Explanted:Qty: 1 on 01/05/2023 by Kenneth Loya MD at [facility] Stent N/A: Pancreas [employer] 05/03/2024 [id number] / / [id number] [employer] Cartwright Flexi-Stent 7fr 7cm Small Pigtail Flexible .035in Stent 6574 - [id number] Implanted:Qty: 1 on 11/03/2022 by Kenneth Loya MD at [facility] Explanted:Qty: 1 on 01/05/2023 by Kenneth Loya MD at [facility] Stent N/A: Pancreas [employer] 05/28/2027 [id number] / / [id number] [employer] 10fr 5cm Biliary Stent [id number] - [id number] Implanted:Qty: 1 on 11/03/2022 by Kenneth Loya MD at [facility] Explanted:Qty: 1 on 01/05/2023 at [facility] Stent N/A: Bile Duct [employer] 08/15/2024 [id number] / / [id number] [employer] Cotton-Young 10fr 5cm Taper Tip Soft Proximal Distal Flap Gentle [id number] - [id number] Implanted:Qty: 1 on 11/03/2022 by Kenneth Loya MD at [facility] Explanted:Qty: 1 on 01/05/2023 by Kenneth Loya MD at [facility] Stent N/A: Bile Duct [employer] 08/10/2025 [id number] / / [id number] [employer] [facility] Cartwright Flexi-Stent 4fr 7cm Small Pigtail Flexible .025in Stent 6544 - [id number] Implanted:Qty: 1 on 01/05/2023 by Kenneth Loya MD at [facility] Explanted:Qty: 1 on 06/02/2023 at [facility] Stent N/A: Pancreas [employer] 07/27/2027 [id number] / / [id number] Description:Not present on t his procedure [employer] 10fr 7cm Biliary Stent [id number] - [id number] Implanted:Qty: 1 on 01/05/2023 by Kenneth Loya MD at [facility] Explanted:Qty: 1 on 06/02/2023 by Jero Soto MD at [facility] Stent N/A: Bile Duct [employer] 12/13/2024 [id number] / / [id number] [employer] 10fr 7cm Biliary Stent [id number] - [id number] Implanted:Qty: 1 on 01/05/2023 by Kenneth Loya MD at [facility] Explanted:Qty: 1 on 06/02/2023 by Jero Soto MD at [facility] Stent N/A: Bile Duct [employer] 12/13/2024 [id number] / / [id number] [employer] 10fr 5cm Biliary Double Pigtail Stent [id number] - [id number] Implanted:Qty: 1 on 06/02/2023 by Kenneth Loya MD at [facility] Explanted:Qty: 1 on 09/21/2023 by Kenneth Loya MD at [facility] Stent N/A: Bile Duct [employer] 04/30/2025 [id number] / / [id number] [employer] 10fr 5cm Biliary Double Pigtail Stent [id number] - [id number] Implanted:Qty: 1 on 06/02/2023 by Kenneth Loya MD at [facility] Explanted:Qty: 1 on 09/21/2023 by Kenneth Loya MD at [facility] Stent N/A: Bile Duct [employer] 04/30/2025 [id number] / / [id number] [employer] 10fr 5cm Biliary Stent [id number] - [id number] Implanted:Qty: 1 on 06/02/2023 by Kenneth Loya MD at [facility] Explanted:Qty: 1 on 09/21/2023 by Kenneth Loya MD at [facility] Stent N/A: Bile Duct [employer] 02/28/2025 [id number] / / [id number] [employer] 10fr 5cm Biliary Double Pigtail Stent [id number] - [id number] Implanted:Qty: 1 on 06/02/2023 by Kenneth Loya MD at [facility] Explanted:Qty: 1 on 09/21/2023 by Kenneth Loya MD at [facility] Stent N/A: Bile Duct [employer] 04/30/2025 [id number] / / [id number] [employer] [id number] Advanix 10fr 5cm Rapid Exchange Temporary [place] Stent - [id number] Implanted:Qty: 1 on 06/18/2021 by Kenneth Loya MD at [facility] Explanted:Qty: 1 on 08/30/2021 at [facility] [employer] 06/30/2022 [id number] / / [id number] Description:Removed prior [employer] Advanix Od10 Fr L7 Cm 1; Temporary Duodenal Bend Stent Biliary Pl [id number] - [id number] Implanted:Qty: 1 on 08/30/2021 at [facility] Explanted:Qty: 1 on 11/01/2021 by Kenneth Loya MD at [facility] N/A: Bile Duct [employer] 06/25/2022 [id number] / / [id number] [employer] Advanix Naviflex 10fr 9cm Lead Joana Radiopaque Flexible [id number] - [id number] Implanted:Qty: 1 on 11/01/2021 by Kenneth Loya MD at [facility] Explanted:Qty: 1 on 01/05/2022 by Contreras Girard MD at [facility] N/A: Pancreas [employer] 07/18/2022 [id number] / / [id number] 10fr 5cm Biliary Stent [id number] - [id number] Implanted:Qty: 1 on 11/01/2021 by Kenneth Loya MD at [facility] Explanted:Qty: 1 on 01/05/2022 at [facility] N/A: Bile Duct [employer] 08/12/2023 [id number] / / [id number] 10fr 7cm Biliary Stent [id number] - [id number] Implanted:Qty: 1 on 11/01/2021 by Kenneth Loya MD at [facility] Explanted:Qty: 1 on 01/05/2022 by Contreras Girard MD at [facility] N/A: Bile Duct [employer] 08/23/2023 [id number] / / [id number] [employer] Cotton-Young 10fr 5cm Taper Tip Soft Proximal Distal Flap Gentle [id number] - [id number] Implanted:Qty: 1 on 01/05/2022 by Contreras Girard MD at [facility] Explanted:Qty: 1 on 01/26/2022 at [facility] N/A: Bile Duct [employer] 05/07/2022 [id number] / / [id number] [employer] Advanix 7fr 7cm Lead Joana Radiopaque Orlando Endo Marker Drainage [id number] - [id number] Implanted:Qty: 1 on 07/06/2022 by Kenneth Loya MD at [facility] Explanted:Qty: 1 on 09/08/2022 by Kenneth Loya MD at [facility] N/A: Pancreas [employer] 05/03/2023 [id number] / / [id number] [employer] 10fr 5cm Biliary Stent [id number] - [id number] Implanted:Qty: 1 on 07/06/2022 by Kenneth Loya MD at [facility] Explanted:Qty: 1 on 09/08/2022 by Kenneth Loya MD at [facility] N/A: Bile Duct [employer] 12/24/2022 [id number] / / [id number] [employer] 10fr 5cm Biliary Stent [id number] - [id number] Implanted:Qty: 1 on 07/06/2022 by Kenneth Loya MD at [facility] Explanted:Qty: 1 on 09/08/2022 by Kenneth Loya MD at [facility] N/A: Bile Duct [employer] 11/16/2023 [id number] / / [id number] [employer] 10fr 7cm Biliary Stent [id number] - [id number] Explanted:Qty: 1 on 04/10/2023 by John De Anda MD at [facility] [employer] [id number] 12/13/2024 [id number] / / [id number] Description:Unable to place despite multiple attempts Procedures Procedure Name Priority Date/Time Associated Diagnosis Comments EGFR STAT 07/23/2024 11:01 AM VICE PRESIDENT [employer] DIFFERENTIAL AUTO STAT 07/23/2024 11: 01 AM VICE PRESIDENT [employer]ITY ETHANOL STAT 07/23/2024 11:01 AM VICE PRESIDENT [employer]ERSITY CBC WITH AUTO DIFFERENTIAL STAT 07/23/2024 11:01 AM VICE PRESIDENT [employer]ITY COMPREHENSIVE METABOLIC PANEL STAT 07/23/2024 11:01 AM VICE PRESIDENT [employer] from Last 3 Months Results * eGFR (07/23/2024 11:01 AM VICE PRESIDENT [employer]ERS[employer]) eGFR >90 >=60 mL/min/1. 73 m2 Comment: [...] reviewed 2021. Blood 07/23/2024 11:0 1 AM VICE PRESIDENT [employer]ERSITY 07/23/2024 11:03 AM VICE PRESIDENT [employer]ERSITY us Jonny Parada MD LAB BLOOD ORDERABLES Final Res ult [facility] ([place] 1 [facility] Department [place] [address] * Differential, auto (07/23/2024 11:01 AM VICE PRESIDENT DIVERSITY) Neutrophil abs 1.7 1.5 - 6.5 K/cumm [...] on 2017. Blood 07/23/2024 11:0 1 AM VICE PRESIDENT [employer]ERSITY 07/23/2024 11:03 AM VICE PRESIDENT [employer]ERSITY us Jonny Parada MD LAB BLOOD ORDERABLES Final Res ult [facility] ([place]) 1 [facility] Department [place] [address] * (ABNORMAL) CBC with auto differential (07/23/2024 11:01 AM VICE PRESIDENT [employer]ERSITY) WBC 3.9 3.8 - 9.9 K/cumm Hgb [...] [facility] ([place]) Blood 07/23/2024 11:0 1 AM VICE PRESIDENT [employer]ERSITY 07/23/2024 11:03 AM VICE PRESIDENT [employer]ERSITY Jonny Parada MD LAB BLOOD ORDERABLES Final Res ult [facility] ([place] 1 [facility] [place] [address] * (ABNORMAL) Ethanol (07/23/2024 11:01 AM VICE PRESIDENT DIVERSITY) Ethanol 314(C) <=10 mg/dL Comment: Critical Result called by [email or web address] at 2024-07-23 11:26:12. Result Read Back by Marine Quan ED Interpretive Data Legal limit of intoxication > or = 80 mg/dL Levels > or = 400 mg/dL are potentially TOXIC. Current interpretive data was last revised on 2018. Blood 07/23/2024 11:0 1 AM VICE PRESIDENT [employer]ERSITY 07/23/2024 11:03 AM VICE PRESIDENT [employer]ERSITY Jonny Parada MD LAB BLOOD ORDERABLES Final Res ult [facility] ([place] 1 [facility] [place] [address] * (ABNORMAL) Comprehensive metabolic panel (07/23/2024 11:01 AM VICE PRESIDENT [employer]ERSITY) Sodium 144 135 - 145 mmol/L Potassium, pl 3.5 3.3 - 4.9 mmol/L [facility] ([place]) Chloride 105 97 - 110 mmol/L [facility] ([place] CO2 23 22 - 32 mmol/L [facility] ([place] Anion gap 16(H) 2 - 15 mmol/L [facility] ([place] BUN 5(L) 6 - 25 mg/dL [facility] ([place] Creatinine 0.64(L) 0.80 - 1.30 mg/dL [facility] ([place] Glucose 133 70 - 199 mg/dL [facility] ([place]) Comment: Interpretive Data Fasting glucose [...] [facility] ([place]) Blood 07/23/2024 11:0 1 AM VICE PRESIDENT [employer]ERSITY 07/23/2024 11:03 AM VICE PRESIDENT [employer]ERSITY Jonny Parada MD LAB BLOOD ORDERABLES Final Res ult [facility] ([place]) 1 [facility] Department [place] [address] from Last 3 Months Insurance [facility] [employer] [facility] MEDICARE [employer] Advance Directives For more information, please contact: [phone] * Full Code (Latest Code Status on [...] 7:36 AM 06/02/2023 3:26 PM Care Teams Supervisor Files Relationship Specialty Start Date End Date Don Walton PA [address] [address] PCP - General Physician Bridge Builder 12/28/21
--- OUTSIDE RECORDS SUMMARY | 2024-08-03 18:04 | XMS_ITS | Encounter Summary ---
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
--- OUTSIDE RECORDS SUMMARY | 2024-08-03 18:04 | XMS_ITS | Encounter Summary ---
Author Organization 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
--- OUTSIDE RECORDS SUMMARY | 2024-08-03 18:04 | XMS_ITS | Encounter Summary ---
Author Organization [facility] Address [address] [place] [address] Care Team Providers Care Sdet Name Role Phone Lamberto Barker MD Primary Care Provider [phone] Encounter Details Date Type Department Care Team (Late st Contact Info) Description 01/05/2021 Hospital Follow-up Call [facility] [place] [address] Heather Adames, RN Social History Tobacco Use [...] How often do you attend chur or baptism services? Never 12/25/2020 Do you belong to [...] 12/25/2020 [facility] - Occupational Stress Questionnaire Answer Date Recorded [...] place to sleep or slept in a snf (including now)? No 12/25/2020 Sex and Gender [...] documented as of this encounter Care Teams Sdet Relationship Specialty Start Date End Date Lamberto Barker MD [address] [place] [address] PCP - General INTERNAL MEDICINE 05/08/19 documented as of this encounter
--- OUTSIDE RECORDS SUMMARY | 2024-08-03 18:04 | XMS_ITS | Continuity of Care Document ---
Author Organization [employer] [facility] [place] Address [address] [place] [address] [address] [place] [address] Phone Care Team Providers Care Dye Expert Name Role Phone Glenn Maciel Unavailable Unavailable [...] Date Provider Providers Copied on Encounter [facility], [address] [address], [place], [place], [address], [place] tel:[phone] [place] No Information Oct-0 9-202 0 Muehl Glenn. [address] [place] [address], [address], [place], [address], [place]. tel:[phone] [place], [place] [address], [place], [place], [address], [place] tel:[phone] [place] No Information Oct-0 8-202 0 Muehl Glenn. [address] [place] [address], [address], [place], [address], [place]. tel:[phone] [place] [address] [address], [place], [place], [address], [place] tel:[phone] [place] No Information Oct-0 6-202 0 Lehnen Velma. . [facility] [address] [place], [place] [address], [place], [place], [address], [place] tel:[phone] [place] No Information Oct-0 2-202 0 Lehnen Velma. . [facility] [address] [place], [place] [address], [place], [address], [place] tel:[phone] [place] No Information Oct-0 1-202 0 Muehl Glenn. [address] [place] [address], [address], [place], [address], [place]. tel:[phone] [place], [place] [address], [place], [address], [place] tel:[phone] [place] No Information Sep-2 9-202 0 Muehl Glenn. [address] [place] [address], [address], [place], [address], [place]. tel:[phone] [place], [place] [address] [address], [place], [place], [address], [place] tel:[phone] [place] No Information Sep-2 4-202 0 Muehl Glenn. [address] [place] [address], [address], [place], [address], [place]. tel:[phone] [place], [place] [address] [address], [place], [address], tel:[phone] [place] No Information Sep-2 2-202 0 Muehl Glenn. [address] [place] [address], [facility] 105, [place], [facility], [place]. tel:[phone] [place], [place] [address] [address], [place], [address], tel:[phone] [place] No Information Sep-1 8-202 0 Muehl Glenn. [address] [place] [address], [address], [place], [facility], [place]. tel:[phone] [place], [place] [address] [address], [place], [address], tel:[phone] [place] No Information Sep-1 5-202 0 Muehl Glenn. [address] [place] [address], [facility] 105, [place], [facility], [place]. tel:[phone] [place], [place] [address], [place], [place], [address], [place] tel:[phone] [place] No Information Sep-1 1-202 0 Darío Cervantes. . [address], [place], [place], [address], [place] tel:[phone] [place] No Information Sep-1 0-202 0 Muehl Glenn. [address] [place] [address], [facility] 105, [place], [facility], [place]. tel:[phone] [place], [place] [address] [address], [place], [address], [place] tel:[phone] [place] No Information Sep-0 8-202 0 Muehl Glenn. [address] [place] [address], [facility] 105, [place], [facility], [place]. tel:[phone] [place] [address], [place], [place], [address], [place] tel:[phone] [place] No Information Sep-0 4-202 0 Muehl Glenn. [address] [place] [address] [address], [place], [address], [place]. tel:[phone] [place], [place] [address] [address], [place], [address], [place] tel:[phone] [place] No Information Sep-0 3-202 0 Muehl Glenn. [address] [place] [address], [address], [place], [address], [place]. tel:[phone] [place], [place] [address], [place], [place], [address], [place] tel:[phone] [place] No Information Sep-0 1-202 0 Muehl Glenn. [address] [place] [address], [address], [place], [address], [place]. tel:[phone] [place] [address], [place], [address], [place] tel:[phone] [place] No Information Aug-2 8-202 0 Threlkeld Shanell. . [address], [place], [place], [address], [place] tel:[phone] [place] No Information Aug-2 7- 0 Muehl Glenn. [address] [place] [address], [address], [place], [address], [place]. tel:[phone] [place] [address], [place], [address], [place] tel:[phone] [place] No Information Aug-2 5-202 0 Muehl Glenn. [address] [place] [address], [address], [place], [address], [place]. tel:[phone] [place], [place] [address], [place], [place], [address], [place] tel:[phone] [place] No Information Aug-2 1-202 0 Muehl Glenn. [address] [place] [address], [address], [place], [address], [place]. tel:[phone] [place] [address] [address], [place], [address], [place] tel:[phone] [place] No Information Aug-2 0-202 0 Muehl Glenn. [address] [place] [address], [address], [place], [facility], [place]. tel:[phone] [place], [place] [id number] [place] [address], [place], [place], [address], [place] tel:[phone] [place] No Information Aug-1 8-202 0 Muehl Glenn. [address] [place] [address], [address], [place], [address], [place]. tel:[phone] [place] [address] [address], [place], [address], [place] tel:[phone] [place] No Information Dec-1 3-202 0 Muehl Glenn. [address] [place] [address], [address], [place], [facility], [place]. tel:[phone] [place], [place] [id number] [place] [address], [place], [place], [address], [place] tel:[phone] [place] No Information Dec-1 1- 0 Muehl Glenn. [address] [place] [address], [address], [place], [facility], [place]. tel:[phone] [place] [id number] [place] [address], [place], [place], [address], [place] tel:[phone] [place] No Information Aug-0 7-202 0 Niederhoffer Helen. . [facility], [place], [place], [address], [place] tel:[phone] [place] No Information Aug-0 6-202 0 Niederhoffer Helen. . [facility], [place], [place], [address], [place] tel:[phone] [place] No Information Aug-0 5-202 0 Jessa Carreon. . [facility], [place], [place], [address], [place] tel:[phone] [place] No Information Nov-3 1-202 0 Muehl Glenn. [address] [place] [address], [address], [place], [address], [place]. tel:[phone] [place] [address] [address], [place], [place], [address], [place] tel:[phone] [place] No Information Nov-3 0-202 0 Muehl Glenn. [address] [place] [address], [address], [place], [address], [place]. tel:[phone] [place] [address] [address], [place], [place], [address], [place] tel:[phone] [place] No Information Nov- 8-202 0 Muehl Glenn. [address] [place] [address], [address], [place], [address], [place]. tel:[phone] [place] [address] [address], [place], [place], [address], [place] tel:[phone] [place] No Information 2 4-202 0 Muehl Glenn. [address] [place] [address], [address], [place], [address], [place]. tel:[phone] [place] [address] [address], [place], [place], [address], [place] tel:[phone] [place] No Information Nov-2 3-202 0 Muehl Glenn. [address] [place] [address], [address], [place], [address], [place]. tel:[phone] [place] [address] [address], [place], [place], [address], [place] tel:[phone] [place] No Information Nov-2 1-202 0 Muehl Glenn. [address] [place] [address], [address], [place], [address], [place]. tel:[phone] [place] [address] [address], [place], [place], [address], [place] tel:[phone] [place] No Information Nov-1 6-202 0 Muehl Glenn. [address] [place] [address], [address], [place], [facility], [place]. tel:[phone] [place] [address] [address], [place], [place], [address], [place] tel:[phone] [place] No Information Nov-1 4-202 0 Muehl Glenn. [address] [place] [address], [address], [place], [facility], [place]. tel:[phone] [place] [address] [address], [place], [address], [place] tel:[phone] [place] No Information Nov-1 0-202 0 Muehl Glenn. [address] [place] [address], [address], [place], [facility], [place]. tel:[phone] [place] [address] [address], [place], [address], [place] tel:[phone] [place] No Information Nov-0 9-202 0 Muehl Glenn. [address] [place] [address], [address], [place], [facility], [place]. tel:[phone] [place] [address] [address], [place], [address], [place] tel:[phone] [place] No Information Nov-0 7-202 0 Muehl Glenn. [address] [place] [address], [address], [place], [facility], [place]. tel:[phone] [place] [address] [address], [place], [place], [address], [place] tel:[phone] [place] No Information Nov-0 2-202 0 Muehl Glenn. [address] [place] [address], [address], [place], [facility], [place]. tel:[phone] [place] [address] [address], [place], [place], [address], [place] tel:[phone] [place] No Information Robert-3 0-202 0 Muehl Glenn. [address] [place] [address], [address], [place], [facility], [place]. tel:[phone] [place], [place] [address], [place], [place], [address], tel:[phone] [place] No Information Robert-2 9-202 0 Muehl Glenn. [address] [place] [address], [address], [place], [facility], [place]. tel:[phone] [place], [place] [address], [place], [address], [place] tel:[phone] [place] No Information Robert-2 6-202 0 Muehl Glenn. [address] [place] [address], [address], [place], [facility], [place]. tel:[phone] [place] [address], [place], [place], [address], [place] tel:[phone] [place] No Information Robert-2 5-202 0 Lehnen Velma. . [address], [place], [place], [address], [place] tel:[phone] [place] No Information Robert-2 3-202 0 Muehl Glenn. [address] [place] [address], [address], [place], [facility], [place]. tel:[phone] [place] [address], [place], [address], [place] tel:[phone] [place] No Information Robert-1 9-202 0 Muehl Glenn. [address] [place] [address], [address], [place], [facility], [place]. tel:[phone] [place] [address], [place], [address], tel:[phone] [place] No Information Robert-1 8-202 0 Muehl Glenn. [address] [place] [address], [address], [place], [facility], [place]. tel:[phone] [place] [address] 300, [place], [place], [address], tel:[phone] [place] No Information Oct-1 6-202 0 Muehl Glenn. [address] [place] [address], [address], [place], [facility], . tel:[phone] [place] [address] 300, [place], [address], tel:[phone] [place] No Information 1 2-202 0 Muehl Glenn. [address] [place] [address], [address], [place] [address], . tel:[phone] [place] [address] 300, [place], [address], tel:[phone] [place] No Information 1-202 0 Muehl Glenn. [address] [place] [address], [address], [place], [facility], . tel:[phone] [place] [address] 300, [place], [address], tel:[phone] [place] No Information Robert-0 9-202 0 Muehl Glenn. [address] [place] [address], [address], [place] [address], . tel:[phone] [address] [place] [address], [address], tel:[phone] [place] No Information Robert-0 5-202 0 Muehl Glenn. [address] [place] [address], [address] [address], . tel:[phone] Family History Family Member Type Diagnosis Age At Onset No Information Payers Payer name Insurance type Covered republican ID Authormarychuya skip(s) [facility] [id number] Social History Type Description Quantity Date Captured [...]
[2024-08-03] MEDS: SODIUM CHLORIDE 0.9% IV 1,000 ML 999 ML IV CONT (18:21)
[2024-08-03] MEDS: ONDANSETRON INJ 4 MG/2 ML VIAL IV PUSH (18:22)
[2024-08-03] MEDS: HYDROmorphone HCL INJ (*CRX) 1 MG/ML SYR IV PUSH (18:22)
[2024-08-03] MEDS: FAMOTIDINE 20 MG/2 ML VIAL IV PUSH (18:22)
[2024-08-03 18:34] VITALS: BP 122/88; PULSE 96; RESP 16; O2SAT 99
[2024-08-03 18:43] LABS: Ethanol < 10 mg/dL (<10)
[2024-08-03 18:44] LABS: Add Urine Microscopic? NO; Appearance Urine Clear (Clear); Bilirubin Urine Negative (Negative); Blood Urine Negative (Negative); Color Urine Yellow (Yellow); Glucose Urine UA Negative (Negative); Ketones Urine Negative (Negative); Leukocyte Esterase Ur Negative LEU/UL (Negative); Nitrate Urine Negative (Negative); Protein Urine Negative (Negative); Specific Grav Ur 1.015 (1.001-1.035); Urobilinogen Urine 0.2 mg/dL (<2.0); pH Urine 7.5 (5.0-9.0)
[2024-08-03] MEDS: chlordiazePOXIDE (*CRX) 25 MG CAPSULE PO (19:29)
[2024-08-03] MEDS: SODIUM CHLORIDE 0.9% IV 1,000 ML 125 ML IV CONT (20:34)
[2024-08-03 20:45] VITALS: BP 120/88; PULSE 83; RESP 16; O2SAT 98
--- NOTE | 2024-08-03 20:55 | PM.IMHP ---
H&P: HPI History of Present Illness Date/Time: 08/03/24 20:55 Chief Complaint: Abdominal pain. Narrative: This is a 58-year-old male smoker with history of alcohol abuse, chronic pancreatitis, and hypertension who presented to the emergency department from [place] for evaluation. The patient provides the following history. He was discharged from the hospital yesterday afternoon after a 3 day stay in which he was treated for acute on chronic pancreatitis and alcohol withdrawal. His pain had improved and he was tolerating clear liquids but is mentioned in his discharge summary that he had some difficulty with solid foods. After returning back to rehab, he ate a full dinner consisting of pork loins with mashed potatoes and gravy and green beans. Not surprisingly his abdominal pain worsened significantly with reports of severe sharp, shooting upper abdominal pain radiating through to the back associated with nausea and vomiting. He reports feeling a bit anxious but has no other withdrawal symptoms. He denies fever, chills, sweats, hematemesis, chest pain, shortness of breath, diarrhea, and dysuria. In the ED: He was in sinus tachycardia with a rate of 110 on arrival. The remainder of his vital signs were stable. Labs were significant for WBC count of 8.0, hemoglobin 11.8, sodium 136, alkaline phosphatase 245, lipase 1662. Urinalysis was unremarkable and alcohol level was undetectable. He received pain medications, antiemetics, a dose of chlordiazepoxide and he is being admitted in this setting for further treatment of acute on chronic pancreatitis. Review of Systems Review of Systems: 12 systems were reviewed and are negative except for as per HPI. [facility] Past Medical History Medical History Peptic ulcer Gastroesophageal reflux disease Tobacco dependence Necrotizing pancreatitis Elevated PSA Memory loss Gastritis and duodenitis Essential hypertension Alcoholism Fracture of vertebra due to osteoporosis with routine healing Generalized osteoarthritis of multiple sites Inflammatory arthritis (08/2019) Angioedema (08/2019) Acute pulmonary embolism (08/2019) Pancreatitis Hypercholesteremia Surgical History Surgical History History of appendectomy Family History Family History Mother Hypertension Sibling Patient's brother is in good health Father Family history of pancreatic cancer Social History Social History Social History: Surrogate medical decision maker: Doris Norman, ex-. Code status: Full code. Smoking packs per day: 1.5 Smoking cigarettes per day: 30.0 Years smoked: 35 Smoking pack-years: 52.50 Smoking status: Current every day smoker Tobacco type: cigarettes Second hand tobacco smoke exposure: No Alcohol intake: current Drinks per week: 50 Alcohol use details: SHOT Substance use: current Substance use type: marijuana Other substance usage details: MEDICAL CARD-DAILY FOR BACK PAIN Last use: Monday Do You Feel Safe in your Home?: Yes Lack of Transportation: No Lack of Food: Never True Current Housing: I Do Not Have Housing Concerned About Future Housing: No Difficulty Paying Gas/Electric Bills: No Difficulty Paying for Meds: No Currently Unemployed: No Education: Don't Know Difficulty w/ Childcare or Family Care: No Living arrangements: with family Occupation/Education: retired Spiritual care concerns: No Meds Home Medications and Allergies Home Medications ?Medication ?Instructions ?Recorded ?Confirmed ?Type dybkotkz-hzfk-tuxda acid 400 1 tablet PO DAILY 02/03/21 08/03/24 History mcg-lycopene 600 mcg-ginkgo 120 mg tablet potassium gluconate 595 mg (99 mg) 99 mg PO DAILY 04/25/23 08/03/24 History tablet losartan 25 mg tablet 25 mg PO DAILY 06/28/23 08/03/24 History jzsasc-hkjjnxnk-xphfvlb 1 cap PO TID #90 caps 07/13/23 08/03/24 Rx 12,000-38,000-60,000 unit capsule,delayed rel (Creon) fenofibrate 160 mg tablet 160 mg PO DAILY #90 tabs 01/23/24 08/03/24 Rx folic acid 1 mg tablet See Rx Instructions .Route 01/23/24 08/03/24 Rx .COMPLEX #90 tabs pantoprazole 40 mg tablet,delayed See Rx Instructions .Route 01/23/24 08/03/24 Rx release .COMPLEX #90 tabs meloxicam 7.5 mg tablet 7.5 mg PO BID PRN joint pain #60 04/02/24 08/03/24 Rx tabs gabapentin 300 mg capsule 300 mg PO Q8H #270 caps 05/01/24 08/03/24 Rx amlodipine 10 mg tablet 10 mg PO DAILY #90 tabs 06/17/24 08/03/24 Rx ascorbic acid (vitamin C) 500 mg 500 mg PO DAILY 08/01/24 08/03/24 History chewable tablet (Acerola C) biotin 5 mg capsule 5 mg PO DAILY 08/01/24 08/03/24 History carbamazepine 200 mg tablet 200 mg PO Q12H 08/01/24 08/03/24 History duloxetine 30 mg capsule,delayed 30 mg PO BID 08/01/24 08/03/24 History release (Cymbalta) magnesium 250 mg tablet 500 mg PO DAILY 08/01/24 08/03/24 History tadalafil 20 mg tablet 5 mg PO DAILY 08/01/24 08/03/24 History tizanidine 4 mg tablet 4 mg PO HS muscle spasticity 08/01/24 08/03/24 History trazodone 50 mg tablet 50 mg PO HS 08/03/24 08/03/24 History Allergies Allergy/AdvReac Type Severity Reaction Status Date / Time amoxicillin Allergy Intermediate rash Verified 08/03/24 22:28 Penicillins Allergy Intermediate Pruritic Verified 08/03/24 22:28 rash Vital Signs Vital Signs - 24 hr 08/03/24 14:50 08/03/24 17:48 08/03/24 18:34 Temperature 98.2 F Pulse Rate 110 H 105 H 96 Respiratory Rate 16 20 16 Blood Pressure 115/79 118/93 H 122/88 Pulse Oximetry 100 96 99 Oxygen Delivery Room Air 08/03/24 20:45 Temperature Pulse Rate 83 Respiratory Rate 16 Blood Pressure 120/88 Pulse Oximetry 98 Oxygen Delivery Exam Narrative: General: Nontoxic appearing male in the semi-Teresa position in bed. He has just received IV Dilaudid and is somnolent and comfortable. Weight: 77.3 kg. BMI: 23.1. HEENT: Normocephalic, atraumatic. PERRL, EOMI. Sclera anicteric. Tacky mucous membranes. Neck: Supple. Respiratory: Lungs are clear to auscultation bilaterally. Cardiovascular: Regular rate and rhythm with S1-S2. Gastrointestinal: Abdomen is soft and nondistended with positive bowel sounds. He is slightly tender to palpation throughout the upper abdomen but he has just received IV pain medications. No guarding or rebound tenderness. Skin: Warm and dry. Extremities: No cyanosis, clubbing, or edema. Radial and pedal pulses intact. Neurological: Alert. Cranial nerves 2-12 are grossly intact. No tremors. No gross focal deficits to casual conversation. Psychiatric: Somnolent after receiving IV pain medications. He arouses to name and is cooperative. H&P: Results Labs Labs: Short CBC 08/03/24 Range/Units 15:13 WBC 8.0 (4.5-10.0) K/mm3 Hgb 11.8 L (14.0-18.0) g/dL Hct 36.5 L (42.0-52.0) % Plt Count 174 (150-375) k/mm3 BMP 08/03/24 15:13 Sodium 136 L Potassium 4.5 Chloride 101 Carbon Dioxide 24 BUN 8 L Creatinine 0.57 L Glucose 108 Calcium 10.1 Liver Function 08/03/24 Range/Units 15:13 Total Bilirubin 0.5 (0.2-1.3) mg/dL AST 33 (17-59) U/L ALT 45 (6-50) U/L Alkaline Phosphatase 245 H (38-126) U/L Albumin 4.0 (3.5-5.1) g/dL Urine 08/03/24 Range/Units 18:38 Urine Color Yellow (Yellow) Urine Appearance Clear (Clear) Urine pH 7.5 (5.0-9.0) Ur Specific [place] 1.015 (1.001-1.035) Urine Protein Negative (Negative) mg/dL Urine Glucose (UA) Negative (Negative) mg/dL Assessment and Plan Assessment and plan (1) Acute on chronic pancreatitis: Code(s): K85.90 - Acute pancreatitis without necrosis or infection, unspecified; K86.1 - Other chronic pancreatitis Status: Acute (2) Hypertension: Qualifiers: Hypertension type: primary hypertension Qualified Code(s): I10 - Essential (primary) hypertension Code(s): I10 - Essential (primary) hypertension Status: Acute (3) Alcohol abuse: Code(s): F10.10 - Alcohol abuse, uncomplicated Status: Acute (4) Tobacco dependence: Code(s): F17.200 - Nicotine dependence, unspecified, uncomplicated Status: Acute Plan The patient presented to the emergency department with complaints of worsening upper abdominal pain 1 day after being discharged from the hospital acute on chronic pancreatitis as detailed in HPI. Labs, imaging, EKG, and all reports were personally reviewed. He had a large, fatty meal last evening not surprisingly his abdominal pain has intensified. He was educated on a low-fat diet via he was quite somnolent after receiving pain medications and this will need to be reiterated to him during his stay. Continue bowel rest for now with IV fluids. He can have a few ice chips and sips of water with medications. Depending on his pain he can probably try clear liquids tomorrow. Analgesics and antiemetics are available as needed. He has not had alcohol in 5 days and seems to be past the worst of his withdrawal symptoms. He seems quite somnolent on his current regimen of scheduled chlordiazepoxide 25 mg and that dose will be reduced. Blood pressures are stable. Nicotine patch ordered per patient request. His home medications will be reviewed and resumed as appropriate. Findings and treatment plan were discussed with the patient. Questions were solicited and answered to satisfaction. The patient's medical management will be taken over by the hospitalist team in a.m. Quality VTE Prophylaxis VTE prophylaxis: pharmacologic ordered The patient has been admitted under observation status. Hospitalist [facility] Advance Care Plan I have confirmed that the patient's Advanced Care Plan is present, code status is documented, or surrogate decision maker is listed in patient medical record.: Yes Medication Reconciliation I have utilized all available resources to obtain, update and review the patients current medications (includes all prescriptions, OTC, herbals, cannabis, and nutritional supplements).: Yes
[2024-08-03 22:00] VITALS: BP 139/97; PULSE 77; RESP 18; TEMP 36.6; O2SAT 98
[2024-08-03 22:42] VITALS: BMI 23.1
[2024-08-03] MEDS: GABAPENTIN 300 MG CAPSULE PO (23:50)
[2024-08-03] MEDS: chlordiazePOXIDE (*CRX) 10 MG CAPSULE PO (23:50)
[2024-08-03] MEDS: carBAMazepine 200 MG TABLET PO (23:50)
[2024-08-04] VITALS (15 sets, daily range): BP systolic 134–164; BP diastolic 92–105; PULSE 11–117; RESP 18–20; TEMP 36.4–37; O2SAT 96–99
[2024-08-04] MEDS: HYDROmorphone HCL INJ (*CRX) 1 MG/ML SYR 0.5 MG IV PUSH (00:44)
--- NOTE | 2024-08-04 03:03 | PC.NURSE ---
DUE TO TIME CHANGE THERE IS NO [id number] ON 08/04/2024
[2024-08-04] MEDS: HYDROmorphone HCL INJ (*CRX) 1 MG/ML SYR IV PUSH ×4 (03:45→20:55)
[2024-08-04] MEDS: GABAPENTIN 300 MG CAPSULE PO ×3 (05:34→20:55)
[2024-08-04 05:44] LABS: Glucose Point of Care 102 mg/dl (65-105)
[2024-08-04 06:38] LABS: Alanine Aminotransferase 35 U/L (6-50); Albumin Level 3.6 g/dL (3.5-5.1); Alkaline Phosphatase 186 U/L (38-126); Anion Gap 8 mmol/L (4-12); Aspartate Amino Transferase 25 U/L (17-59); Basophils Percent Auto 0.5 % (0.2-1.2); Bilirubin,Total 0.4 mg/dL (0.2-1.3); Blood Urea Nitrogen 5 mg/dL (9-20); Calcium 9.2 mg/dL (8.4-10.2); Carbon Dioxide 24 mmol/L (22-30); Chloride 103 mmol/L (98-107); Eosinophils Absolute Auto 0.1 K/mm3 (0-0.3); Eosinophils Percent Auto 1.1 % (0-4.4); Estimated CRCL calculation 145 ml/min; Estimated Glomerular Filt Rate > 60; Glucose 96 mg/dL (65-110); Hematocrit 31.1 % (42.0-52.0); Hemoglobin 10.2 g/dL (14.0-18.0); Immature Granulocyte Absolute 0.03 K/mm3 (0.00-0.031); Immature Granulocyte Percent A 0.5 % (0-0.5); Lipase 1104 U/L (23-300); Lymphocytes Absolute Auto 1.09 K/mm3 (0.9-3.2); Lymphocytes Percent Auto 16.4 % (18.3-44.2); Magnesium 1.8 mg/dL (1.6-2.3); Mean Corpuscular HGB Conc 32.8 g/dl (32-36); Mean Corpuscular Hemoglobin 31.4 pg (26-34); Mean Corpuscular Volume 95.7 fl (80-100); Mean Platelet Volume 10.9 fl (7.4-10.4); Monocytes Absolute Auto 0.9 K/mm3 (0.1-0.6); Monocytes Percent Auto 13.7 % (2.6-8.5); Neutrophils Absolute Auto 4.5 K/mm3 (1.3-6.7); Neutrophils Percent Auto 67.8 % (45.5-73.1); Platelet Count Result 181 k/mm3 (150-375); Red Blood Count 3.25 M/mm3 (4.6-6.20); Red Cell Distribution Width 17.2 % (11.5-14.5); Sodium 135 mmol/L (137-145); White Blood Count 6.6 K/mm3 (4.5-10.0)
[2024-08-04] MEDS: SODIUM CHLORIDE 0.9% IV 1,000 ML 125 ML IV CONT ×2 (09:33→12:47)
[2024-08-04] MEDS: chlordiazePOXIDE (*CRX) 10 MG CAPSULE PO ×3 (10:20→20:55)
[2024-08-04] MEDS: ENOXAPARIN 40 MG/0.4 ML SYRINGE SUB-Q (10:21)
[2024-08-04] MEDS: DULoxetine HCL 30 MG CAPSULE.DR PO ×2 (10:21→16:26)
[2024-08-04] MEDS: MAGNESIUM OXIDE 400 MG TABLET PO (10:21)
[2024-08-04] MEDS: FENOFIBRATE 160 MG TABLET PO (10:22)
[2024-08-04] MEDS: amLODIPine BESYLATE 10 MG TABLET PO (10:22)
[2024-08-04] MEDS: carBAMazepine 200 MG TABLET PO ×2 (10:22→20:55)
[2024-08-04] MEDS: ASCORBIC ACID 500 MG TABLET PO (10:22)
[2024-08-04] MEDS: PANTOPRAZOLE 40 MG TABLET BY MOUTH (10:22)
[2024-08-04] MEDS: LOSARTAN POTASSIUM 25 MG TABLET PO (10:22)
[2024-08-04] MEDS: POTASSIUM CHLORIDE 10 MEQ ER TABLET PO (10:22)
[2024-08-04] MEDS: FOLIC ACID 1 MG TABLET BY MOUTH (10:23)
[2024-08-04] MEDS: THIAMINE HCL 100 MG TABLET PO (10:23)
[2024-08-04 11:40] LABS: Glucose Point of Care 93 mg/dl (65-105)
[2024-08-04] MEDS: LIPASE/AMYLASE/PROTEASE 12,000 UNITS CAP 1 CAP PO ×2 (12:47→16:26)
--- NOTE | 2024-08-04 12:53 | PM.IMPN ---
Progress Note: A&P Assessment and Plan (1) Acute on chronic pancreatitis: Code(s): K85.90 - Acute pancreatitis without necrosis or infection, unspecified; K86.1 - Other chronic pancreatitis Status: Acute Assessment and Plan: continue IV morphine prn continue Npo, iv fluids watch lipase levels likely secondary to alcohol (2) Hypertension: Qualifiers: Hypertension type: primary hypertension Qualified Code(s): I10 - Essential (primary) hypertension Code(s): I10 - Essential (primary) hypertension Status: Acute Assessment and Plan: Continue blood pressure medications watch bp levels (3) Alcohol abuse: Code(s): F10.10 - Alcohol abuse, uncomplicated Status: Acute Assessment and Plan: Librium scheduled CIWA protocol Thiamine Ativan prn severe agitated (4) Tobacco dependence: Code(s): F17.200 - Nicotine dependence, unspecified, uncomplicated Status: Acute Assessment and Plan: Order nicotine patch Subjective Date/time seen: 08/04/24 12:53 Interval history: 58-year-old male smoker with history of alcohol abuse, chronic pancreatitis, and hypertension who presented to the emergency department from [place] for evaluation. The patient provides the following history. He was discharged from the hospital yesterday afternoon after a 3 day stay in which he was treated for acute on chronic pancreatitis and alcohol withdrawal. His pain had improved and he was tolerating clear liquids but is mentioned in his discharge summary that he had some difficulty with solid foods. After returning back to rehab, he ate a full dinner consisting of pork loins with mashed potatoes and gravy and green beans. Pt was in [place] clinic for alcholol with drawl Admitted here for acute on chronic pancreatitis. Pt drinks 12 Vodkas a day last drink was on Monday. Pt having high CIWAs and severe abdominal pains. Receiving IV pain medications today Review of Systems Review of Systems: Severe abdominal pains Exam Narrative: General: Chronically ill Respiratory: Lungs are clear to auscultation bilaterally. Cardiovascular: Regular rate and rhythm with S1-S2. Gastrointestinal: TTP over RUQ area Skin: Warm and dry. Extremities: No cyanosis, clubbing, or edema. Radial and pedal pulses intact. Neurological: Alert. Cranial nerves 2-12 are grossly intact. No tremors. No gross focal deficits to casual conversation. Psychiatric: Somnolent Objective Data Vital Signs Vital Signs: Vital Signs - 24 hr 08/03/24 14:50 08/03/24 17:48 08/03/24 18:34 Temperature 36.8 C Pulse Rate 110 H 105 H 96 Pulse Rate [Apical Monitor] Respiratory Rate 16 20 16 Blood Pressure 115/79 118/93 H 122/88 Pulse Oximetry 100 96 99 Oxygen Delivery Room Air 08/03/24 20:45 08/03/24 22:00 08/04/24 00:00 Temperature 36.6 C Pulse Rate 83 77 85 Pulse Rate [Apical Monitor] Respiratory Rate 16 18 Blood Pressure 120/88 139/97 H Pulse Oximetry 98 98 Oxygen Delivery 08/04/24 03:31 08/04/24 04:00 08/04/24 05:56 Temperature 36.4 C Pulse Rate 102 H 98 Pulse Rate [Apical Monitor] Respiratory Rate 18 Blood Pressure 134/92 H Pulse Oximetry 96 Oxygen Delivery Room Air 08/04/24 09:30 08/04/24 09:39 Temperature Pulse Rate Pulse Rate [Apical Monitor] 99 Respiratory Rate Blood Pressure 144/94 H Pulse Oximetry Oxygen Delivery Room Air Intake/Output Intake/Output: Intake & Output 08/01/24 08/02/24 08/03/24 08/05/24 23:59 23:59 23:59 00:59 Intake Total 1000 1404.2 Output Total 1700 Balance 1000 -295.8 Meds/Results Medications: Active Medications Generic Name Dose Route Start Last Admin Trade Name Freq PRN Reason Stop Dose Admin Amlodipine Besylate 10 mg 08/04/24 09:00 08/04/24 10:22 Amlodipine Besylate 10 Mg Tablet PO 10 mg DAILY DIAMOND Administration Lipase/Protease/Amylase 1 cap 08/04/24 08:00 08/04/24 12:47 Lipase/Amylase/Protease 12,000 Units Cap PO 1 cap TIDWM DIAMOND Administration Ascorbic Acid 500 mg 08/04/24 09:00 08/04/24 10:22 Ascorbic Acid 500 Mg Tablet PO 500 mg DAILY DIAMOND Administration Carbamazepine 200 mg 08/03/24 23:10 08/04/24 10:22 Carbamazepine 200 Mg Tablet PO 200 mg Q12HR DIAMOND Administration Chlordiazepoxide HCl 10 mg 08/03/24 23:08 08/04/24 10:20 Chlordiazepoxide (*Crx) 10 Mg Capsule PO 10 mg Q8H PRN Administration withdrawal symptoms & CIWA < 8 Duloxetine HCl 30 mg 08/04/24 09:00 08/04/24 10:21 Duloxetine Hcl 30 Mg Capsule.Dr PO 30 mg BID DIAMOND Administration Enoxaparin Sodium 40 mg 08/04/24 09:00 08/04/24 10:21 Enoxaparin 40 Mg/0.4 Ml Syringe SUB-Q 40 mg DAILY DIAMOND Administration Fenofibrate 160 mg 08/04/24 09:00 08/04/24 10:22 Fenofibrate 160 Mg Tablet PO 160 mg DAILY DIAMOND Administration Folic Acid 1 mg 08/04/24 09:00 08/04/24 10:23 Folic Acid 1 Mg Tablet BY MOUTH 1 mg DAILY DIAMOND Administration Gabapentin 300 mg 08/03/24 23:10 08/04/24 05:34 Gabapentin 300 Mg Capsule PO 300 mg Q8HR DIAMOND Administration Hydromorphone HCl 0.5 mg 08/04/24 03:34 Hydromorphone Hcl Inj (*Crx) 1 Mg/Ml Syr IV PUSH Q3H PRN Pain Rated 4-6 Hydromorphone HCl 1 mg 08/04/24 03:34 08/04/24 10:19 Hydromorphone Hcl Inj (*Crx) 1 Mg/Ml Syr IV PUSH 1 mg Q3H PRN Administration Pain Rated 7-10 Sodium Chloride 1,000 mls @ 125 mls/hr 08/03/24 19:40 08/04/24 12:47 Normal Saline Iv IV CONT 125 mls/hr .Q8H DIAMOND Administration Losartan Potassium 25 mg 08/04/24 09:00 08/04/24 10:22 Losartan Potassium 25 Mg Tablet PO 25 mg DAILY DIAMOND Administration Magnesium Oxide 400 mg 08/04/24 09:00 08/04/24 10:21 Magnesium Oxide 400 Mg Tablet PO 400 mg DAILY DIAMOND Administration Meloxicam 7.5 mg 08/03/24 23:10 Meloxicam 7.5 Mg Tablet PO BID PRN joint pain Ondansetron HCl 4 mg 08/03/24 19:36 Ondansetron Inj 4 Mg/2 Ml Vial IV PUSH Q4H PRN Nausea Pantoprazole Sodium 40 mg 08/04/24 09:00 08/04/24 10:22 Pantoprazole 40 Mg Tablet BY MOUTH 40 mg DAILY DIAMOND Administration Potassium Chloride 10 meq 08/04/24 08:00 08/04/24 10:22 Potassium Chloride 10 Meq Er Tablet PO 10 meq DAILY@0800 [facility] Administration Thiamine HCl 100 mg 08/04/24 09:00 08/04/24 10:23 Thiamine Hcl 100 Mg Tablet PO 100 mg QAM DIAMOND Administration Trazodone HCl 50 mg 08/04/24 01:05 08/04/24 03:04 Trazodone Hcl 50 Mg Tablet PO Not Given HS [facility] Labs Labs: Laboratory Results - last 24 hr 08/03/24 08/03/24 08/03/24 15:13 18:17 18:38 WBC 8.0 RBC 3.86 L Hgb 11.8 L Hct 36.5 L MCV 94.6 MCH 30.6 MCHC 32.3 RDW 17.3 H Plt Count 174 MPV 11.2 H Immature Gran % (Auto) 0.3 Neut % (Auto) 75.9 H Lymph % (Auto) 11.6 L [place] % (Auto) 10.9 H Eos % (Auto) 1.0 Baso % (Auto) 0.3 Lymph # (Auto) 0.92 [place] # (Auto) 0.9 H Eos # (Auto) 0.1 Baso # (Auto) 0.0 Abs Immat Gran (auto) 0.02 Absolute Neuts (auto) 6.0 Absolute Nucleated RBC 0.000 Nucleated RBC % 0.0 Sodium 136 L Potassium 4.5 Chloride 101 Carbon Dioxide 24 Anion Gap 11 BUN 8 L Creatinine 0.57 L Estim Creat Clear Calc 134 Estimated GFR > 60 Glucose 108 POC Capillary Glucose Calcium 10.1 Magnesium Total Bilirubin 0.5 AST 33 ALT 45 Alkaline Phosphatase 245 H Total Protein 8.0 Albumin 4.0 Lipase 1662 H Urine Color Yellow Urine Appearance Clear Urine pH 7.5 Ur Specific [place] 1.015 Urine Protein Negative Urine Glucose (UA) Negative Urine Ketones Negative Ur Blood (Man) Negative Urine Nitrate Negative Urine Bilirubin Negative Urine Urobilinogen 0.2 Leukocyte Esterase Rfl Negative Ethyl Alcohol < 10 08/04/24 08/04/24 08/04/24 05:40 05:47 11:35 WBC 6.6 RBC 3.25 L Hgb 10.2 L Hct 31.1 L MCV 95.7 MCH 31.4 MCHC 32.8 RDW 17.2 H Plt Count 181 MPV 10.9 H Immature Gran % (Auto) 0.5 Neut % (Auto) 67.8 Lymph % (Auto) 16.4 L [place] % (Auto) 13.7 H Eos % (Auto) 1.1 Baso % (Auto) 0.5 Lymph # (Auto) 1.09 [place] # (Auto) 0.9 H Eos # (Auto) 0.1 Baso # (Auto) 0.0 Abs Immat Gran (auto) 0.03 Absolute Neuts (auto) 4.5 Absolute Nucleated RBC 0.000 Nucleated RBC % 0.0 Sodium 135 L Potassium 4.0 Chloride 103 Carbon Dioxide 24 Anion Gap 8 BUN 5 L Creatinine 0.52 L Estim Creat Clear Calc 145 Estimated GFR > 60 Glucose 96 POC Capillary Glucose 102 93 Calcium 9.2 Magnesium 1.8 Total Bilirubin 0.4 AST 25 ALT 35 Alkaline Phosphatase 186 H Total Protein 7.0 Albumin 3.6 Lipase 1104 H Urine Color Urine Appearance Urine pH Ur Specific [place] Urine Protein Urine Glucose (UA) Urine Ketones Ur Blood (Man) Urine Nitrate Urine Bilirubin Urine Urobilinogen Leukocyte Esterase Rfl Ethyl Alcohol
[2024-08-04] MEDS: MULTIVITAMINS-12 INJ VIAL 1 5 ML, MULTIVITAMINS-12 INJ VIAL 2 5 ML in SODIUM CHLORIDE 0... 100 ML IV CONT (13:55)
[2024-08-04] MEDS: NICOTINE (*PBKC) 14 MG PATCH 1 PATCH TRANSDERM (14:36)
[2024-08-04] MEDS: HYDROcodone/acetaminophen (*CRX) 5-325 MG TABLET 1 TAB PO (16:26)
[2024-08-04] MEDS: ONDANSETRON INJ 4 MG/2 ML VIAL IV PUSH (17:21)
[2024-08-04] MEDS: traZODone HCL 50 MG TABLET PO (20:55)
[2024-08-04] MEDS: LORazepam INJ (*CRX) 2 MG/ML VIAL IV PUSH ×2 (21:11→23:45)
[2024-08-05] VITALS (10 sets, daily range): BP systolic 127–155; BP diastolic 66–95; PULSE 105–130; RESP 18–22; TEMP 36.6–36.8; O2SAT 92–100; BMI 23.0
[2024-08-05 00:46] LABS: Glucose Point of Care 77 mg/dl (65-105)
[2024-08-05] MEDS: HYDROmorphone HCL INJ (*CRX) 1 MG/ML SYR IV PUSH ×5 (01:23→20:16)
--- NOTE | 2024-08-05 02:13 | ECG_ITS ---
Test Date: 2024-08-05 02:37:24 Measurements Intervals [place] Rate: 121 P: 47 TN: 142 QRS: -34 QRSD: 103 T: 21 QT: 300 QTc: 426 Interpretive Statements SINUS TACHYCARDIA LEFT AXIS DEVIATION [QRS AXIS < -30] LOW QRS VOLTAGE IN PRECORDIAL LEADS [QRS DEFLECTION < 1.0 mV IN CHEST LEADS] Compared to ECG 08/03/2024 15:02:03 Left-axis deviation now present Low QRS voltage now present T-wave abnormality no longer present Electronically Signed On 08-05-2024 11:35:00 CDT by Agapito Lara M.D.
[2024-08-05] MEDS: LORazepam INJ (*CRX) 2 MG/ML VIAL IV PUSH (02:15)
[2024-08-05] MEDS: DEXTROSE 5%/0.9% SOD CHL 1,000 ML 100 ML IV CONT ×2 (02:17→11:57)
[2024-08-05 03:13] LABS: Troponin I < 0.012 ng/mL (0.000-0.034)
--- NOTE | 2024-08-05 03:20 | P.PNCROSS_ITS ---
Event Note Event Note Event Note: Patient reporting chest pain . Orders placed for chest x-ray, troponin, and EK G. Chest x-ray appears to be unchanged from previous x-rays in the past. Troponin less than 0.012. EKG showing sinus tachycardia with left axis deviation with a rate of 121, QTC 426 which appears to be unchanged from previous. Nursing called and stated that his heart rate is still in the 120s to 130s. He is on CIWA protocol and has been receiving Ativan every 2 hours. According to the nurse the patient drinks 12 double shots of hard liquor every night. We will go ahead and start him on Librium 25 mg q.6 hour as well as give him a dose of 5 mg IV push Haldol for tonight. He is already getting multi vitamin and will increase his thiamin to 300 mg daily. We will continue to monitor.
[2024-08-05] MEDS: HALOPERIDOL LACTATE 5 MG/ML VIAL IV PUSH (03:39)
[2024-08-05 04:40] LABS: Glucose Point of Care 109 mg/dl (65-105)
[2024-08-05] MEDS: GABAPENTIN 300 MG CAPSULE PO ×3 (05:00→22:09)
[2024-08-05] MEDS: chlordiazePOXIDE (*CRX) 10 MG CAPSULE PO ×3 (05:00→22:09)
[2024-08-05 06:09] LABS: Hematocrit 33.1 % (42.0-52.0); Hemoglobin 10.8 g/dL (14.0-18.0); Mean Corpuscular HGB Conc 32.6 g/dl (32-36); Mean Corpuscular Hemoglobin 30.8 pg (26-34); Mean Corpuscular Volume 94.3 fl (80-100); Mean Platelet Volume 10.1 fl (7.4-10.4); Platelet Count Result 224 k/mm3 (150-375); Red Blood Count 3.51 M/mm3 (4.6-6.20); Red Cell Distribution Width 16.7 % (11.5-14.5); White Blood Count 8.3 K/mm3 (4.5-10.0)
[2024-08-05 06:21] LABS: Anion Gap 14 mmol/L (4-12); Blood Urea Nitrogen 5 mg/dL (9-20); Carbon Dioxide 20 mmol/L (22-30); Chloride 97 mmol/L (98-107); Estimated CRCL calculation 131 ml/min; Estimated Glomerular Filt Rate > 60; Glucose 120 mg/dL (65-110); Lipase 470 U/L (23-300); Potassium 4.1 mmol/L (3.4-5.0); Sodium 131 mmol/L (137-145)
[2024-08-05 06:30] LABS: Troponin I < 0.012 ng/mL (0.000-0.034)
[2024-08-05] MEDS: MELOXICAM 7.5 MG TABLET PO (09:01)
[2024-08-05 09:02] LABS: Troponin I < 0.012 ng/mL (0.000-0.034)
[2024-08-05] MEDS: ONDANSETRON INJ 4 MG/2 ML VIAL IV PUSH ×3 (09:02→16:38)
[2024-08-05] MEDS: ENOXAPARIN 40 MG/0.4 ML SYRINGE SUB-Q (09:05)
[2024-08-05] MEDS: NICOTINE (*PBKC) 14 MG PATCH 1 PATCH TRANSDERM (09:07)
[2024-08-05] MEDS: MAGNESIUM OXIDE 400 MG TABLET PO (09:09)
[2024-08-05] MEDS: POTASSIUM CHLORIDE 10 MEQ ER TABLET PO (09:09)
[2024-08-05] MEDS: LIPASE/AMYLASE/PROTEASE 12,000 UNITS CAP 1 CAP PO ×3 (09:09→16:33)
[2024-08-05] MEDS: amLODIPine BESYLATE 10 MG TABLET PO (09:09)
[2024-08-05] MEDS: FOLIC ACID 1 MG TABLET BY MOUTH (09:09)
[2024-08-05] MEDS: FENOFIBRATE 160 MG TABLET PO (09:09)
[2024-08-05] MEDS: PANTOPRAZOLE 40 MG TABLET BY MOUTH (09:09)
[2024-08-05] MEDS: THIAMINE HCL 100 MG TABLET 300 MG PO (09:10)
[2024-08-05] MEDS: DULoxetine HCL 30 MG CAPSULE.DR PO ×2 (09:10→16:33)
[2024-08-05] MEDS: LOSARTAN POTASSIUM 25 MG TABLET PO (09:11)
[2024-08-05] MEDS: ASCORBIC ACID 500 MG TABLET PO (09:11)
[2024-08-05] MEDS: carBAMazepine 200 MG TABLET PO ×2 (09:11→20:15)
--- NOTE | 2024-08-05 11:08 | P.PNIM_ITS ---
Progress Note: A&P Assessment and Plan (1) Acute on chronic pancreatitis: Code(s): K85.90 - Acute pancreatitis without necrosis or infection, unspecified; K86.1 - Other chronic pancreatitis Status: Acute Assessment and Plan: continue IV morphine prn watch lipase levels likely secondary to alcohol advance diet as tolerated (2) Hypertension: Qualifiers: Hypertension type: primary hypertension Qualified Code(s): I10 - Essential (primary) hypertension Code(s): I10 - Essential (primary) hypertension Status: Acute Assessment and Plan: Continue blood pressure medications watch bp levels (3) Alcohol abuse: Code(s): F10.10 - Alcohol abuse, uncomplicated Status: Acute Assessment and Plan: Librium scheduled CIWA protocol Thiamine Ativan prn severe agitated librium 25 mg q6 mg started overnight (4) Tobacco dependence: Code(s): F17.200 - Nicotine dependence, unspecified, uncomplicated Status: Acute Assessment and Plan: Order nicotine patch Time Spent With Patient Time with patient: 25 - 35 minutes Subjective Date/time seen: 08/05/24 11:08 Interval history: 58-year-old male smoker with history of alcohol abuse, chronic pancreatitis, and hypertension who presented to the emergency department from [place] for evaluation. The patient provides the following history. He was discharged from the hospital yesterday afternoon after a 3 day stay in which he was treated for acute on chronic pancreatitis and alcohol withdrawal. His pain had improved and he was tolerating clear liquids but is mentioned in his discharge summary that he had some difficulty with solid foods. After returning back to rehab, he ate a full dinner consisting of pork loins with mashed potatoes and gravy and green beans. Pt was in [place] clinic for alcholol with drawl Admitted here for acute on chronic pancreatitis. Pt drinks 12 Vodkas a day last drink was on Monday. Pt having high CIWAs and severe abdominal pains. Receiving IV pain medications today 08/05- had chest pain episode overnight, [id number] xray done. see crosscover note. was started on librium 25 mg q6h, received x 1 dose haldol 5 mg iv. thiamine increased to 300 mg daily he is c/o some abd pain. IV fluids running. NO BM for two days. Review of Systems Review of Systems: Severe abdominal pains Exam Narrative: General: Chronically ill Respiratory: Lungs are clear to auscultation bilaterally. Cardiovascular: Regular rate and rhythm with S1-S2. Gastrointestinal: TTP over RUQ area Skin: Warm and dry. Extremities: No cyanosis, clubbing, or edema. Radial and pedal pulses intact. Neurological: Alert. Cranial nerves 2-12 are grossly intact. No tremors. No gross focal deficits to casual conversation. Psychiatric: Somnolent Objective Data Vital Signs Vital Signs: Vital Signs - 24 hr 08/04/24 12:03 08/04/24 14:00 08/04/24 15:22 Temperature 98.6 F Pulse Rate 110 H 104 H Pulse Rate [Apical Monitor] Respiratory Rate 20 Blood Pressure 164/105 H 150/102 H Pulse Oximetry 99 Oxygen Delivery 08/04/24 16:02 08/04/24 16:32 08/04/24 17:11 Temperature Pulse Rate 117 H Pulse Rate [Apical Monitor] 107 H 110 H Respiratory Rate Blood Pressure 147/94 H Pulse Oximetry Oxygen Delivery 08/04/24 20:00 08/04/24 20:00 08/04/24 20:46 Temperature Pulse Rate 114 H Pulse Rate [Apical Monitor] 11 L Respiratory Rate Blood Pressure Pulse Oximetry Oxygen Delivery Room Air 08/04/24 22:00 08/04/24 23:48 08/05/24 00:00 Temperature 98 F 98.1 F Pulse Rate 110 H 105 H Pulse Rate [Apical Monitor] 117 H Respiratory Rate 18 18 Blood Pressure 154/98 H 149/95 H Pulse Oximetry 97 98 Oxygen Delivery 08/05/24 02:06 08/05/24 03:43 08/05/24 03:45 Temperature Pulse Rate 127 H Pulse Rate [Apical Monitor] 127 H 127 H Respiratory Rate 18 Blood Pressure 148/91 H Pulse Oximetry 100 Oxygen Delivery 08/05/24 04:00 08/05/24 05:14 08/05/24 08:00 Temperature 98.2 F 98.2 F Pulse Rate 130 H 115 H 117 H Pulse Rate [Apical Monitor] Respiratory Rate 18 22 H Blood Pressure 155/94 H 142/93 H Pulse Oximetry 99 95 Oxygen Delivery 08/05/24 08:00 Temperature Pulse Rate 127 H Pulse Rate [Apical Monitor] Respiratory Rate Blood Pressure Pulse Oximetry Oxygen Delivery Intake/Output Intake/Output: Intake & Output 08/02/24 08/03/24 08/05/24 08/05/24 23:59 23:59 00:59 23:59 Intake Total 1000 1552.1 421.3 Output Total 2150 1100 Balance 1000 -597.9 -678.7 Meds/Results Medications: Active Medications Generic Name Dose Route Start Last Admin Trade Name Freq PRN Reason Stop Dose Admin Hydrocodone Bitart/Acetaminophen 1 tab 08/04/24 13:28 08/04/24 16:26 Hydrocodone/Acetaminophen (*Crx) 5-325 Mg Tablet PO 1 tab Q4H PRN Administration Pain Rated 4-6 Amlodipine Besylate 10 mg 08/04/24 09:00 08/05/24 09:09 Amlodipine Besylate 10 Mg Tablet PO 10 mg DAILY DIAMOND Administration Lipase/Protease/Amylase 1 cap 08/04/24 08:00 08/05/24 09:09 Lipase/Amylase/Protease 12,000 Units Cap PO 1 cap TIDWM DIAMOND Administration Ascorbic Acid 500 mg 08/04/24 09:00 08/05/24 09:11 Ascorbic Acid 500 Mg Tablet PO 500 mg DAILY DIAMOND Administration Carbamazepine 200 mg 08/03/24 23:10 08/05/24 09:11 Carbamazepine 200 Mg Tablet PO 200 mg Q12HR DIAMOND Administration Chlordiazepoxide HCl 10 mg 08/04/24 13:30 08/05/24 05:00 Chlordiazepoxide (*Crx) 10 Mg Capsule PO 10 mg Q8HR DIAMOND Administration Chlordiazepoxide HCl 25 mg 08/05/24 03:30 Chlordiazepoxide (*Crx) 25 Mg Capsule PO Q6H PRN Withdrawal Duloxetine HCl 30 mg 08/04/24 09:00 08/05/24 09:10 Duloxetine Hcl 30 Mg Capsule.Dr PO 30 mg BID DIAMOND Administration Enoxaparin Sodium 40 mg 08/04/24 09:00 08/05/24 09:05 Enoxaparin 40 Mg/0.4 Ml Syringe SUB-Q 40 mg DAILY DIAMOND Administration Fenofibrate 160 mg 08/04/24 09:00 08/05/24 09:09 Fenofibrate 160 Mg Tablet PO 160 mg DAILY DIAMOND Administration Folic Acid 1 mg 08/04/24 09:00 08/05/24 09:09 Folic Acid 1 Mg Tablet BY MOUTH 1 mg DAILY DIAMOND Administration Gabapentin 300 mg 08/03/24 23:10 08/05/24 05:00 Gabapentin 300 Mg Capsule PO 300 mg Q8HR DIAMOND Administration Hydromorphone HCl 0.5 mg 08/04/24 03:34 Hydromorphone Hcl Inj (*Crx) 1 Mg/Ml Syr IV PUSH Q3H PRN Pain Rated 4-6 Hydromorphone HCl 1 mg 08/04/24 03:34 08/05/24 09:02 Hydromorphone Hcl Inj (*Crx) 1 Mg/Ml Syr IV PUSH 1 mg Q3H PRN Administration Pain Rated 7-10 Dextrose/Sodium Chloride 1,000 mls @ 100 mls/hr 08/05/24 01:55 08/05/24 02:17 Dextrose 5% Sodium Chloride 0.9% IV CONT 100 mls/hr .Q10H DIAMOND Administration Lorazepam 2 mg 08/04/24 20:52 08/05/24 02:15 Lorazepam Inj (*Crx) 2 Mg/Ml Vial IV PUSH 2 mg Q2H PRN Administration Alcohol Withdrawal Losartan Potassium 25 mg 08/04/24 09:00 08/05/24 09:11 Losartan Potassium 25 Mg Tablet PO 25 mg DAILY DIAMOND Administration Magnesium Oxide 400 mg 08/04/24 09:00 08/05/24 09:09 Magnesium Oxide 400 Mg Tablet PO 400 mg DAILY DIAMOND Administration Meloxicam 7.5 mg 08/03/24 23:10 08/05/24 09:01 Meloxicam 7.5 Mg Tablet PO 7.5 mg BID PRN Administration joint pain Nicotine 1 patch 08/04/24 09:00 08/05/24 09:07 Nicotine (*Pbkc) 14 Mg Patch TRANSDERM 1 patch DAILY DIAMOND Administration Ondansetron HCl 4 mg 08/03/24 19:36 08/05/24 09:02 Ondansetron Inj 4 Mg/2 Ml Vial IV PUSH 4 mg Q4H PRN Administration Nausea Pantoprazole Sodium 40 mg 08/04/24 09:00 08/05/24 09:09 Pantoprazole 40 Mg Tablet BY MOUTH 40 mg DAILY DIAMOND Administration Potassium Chloride 10 meq 08/04/24 08:00 08/05/24 09:09 Potassium Chloride 10 Meq Er Tablet PO 10 meq DAILY@0800 DIAMOND Administration Thiamine HCl 300 mg 08/05/24 09:00 08/05/24 09:10 Thiamine Hcl 100 Mg Tablet PO 300 mg QAM DIAMOND Administration Trazodone HCl 50 mg 08/04/24 01:05 08/04/24 20:55 Trazodone Hcl 50 Mg Tablet PO 50 mg HS DIAMOND Administration Radiology Results: ITS Impressions Chest X-Ray 08/05/24 06:18 Impression: Discoid atelectasis or scarring left lung base, otherwise clear lungs. Labs Labs: Laboratory Results - last 24 hr 08/04/24 08/05/24 08/05/24 11:35 00:36 02:45 WBC RBC Hgb Hct MCV MCH MCHC RDW Plt Count MPV Sodium Potassium Chloride Carbon Dioxide Anion Gap BUN Creatinine Estim Creat Clear Calc Estimated GFR Glucose POC Capillary Glucose 93 77 Calcium Troponin I < 0.012 Lipase 08/05/24 08/05/24 08/05/24 04:31 05:56 08:19 WBC 8.3 RBC 3.51 L Hgb 10.8 L Hct 33.1 L MCV 94.3 MCH 30.8 MCHC 32.6 RDW 16.7 H Plt Count 224 MPV 10.1 Sodium 131 L Potassium 4.1 Chloride 97 L Carbon Dioxide 20 L Anion Gap 14 H BUN 5 L Creatinine 0.58 L Estim Creat Clear Calc 131 Estimated GFR > 60 Glucose 120 H POC Capillary Glucose 109 H Calcium 9.0 Troponin I < 0.012 < 0.012 Lipase 470 H Quality VTE Prophylaxis VTE prophylaxis: pharmacologic ordered
[2024-08-05 11:36] LABS: Glucose Point of Care 148 mg/dl (65-105)
[2024-08-05] MEDS: polyethylene glycoL 3350 17 GM POWD.PACK PO (12:53)
[2024-08-05] MEDS: HYDROcodone/acetaminophen (*CRX) 5-325 MG TABLET 1 TAB PO ×2 (12:53→16:38)
[2024-08-05 17:44] LABS: Glucose Point of Care 132 mg/dl (65-105)
[2024-08-05] MEDS: traZODone HCL 50 MG TABLET PO (20:15)
[2024-08-06] VITALS (7 sets, daily range): BP systolic 106–145; BP diastolic 67–91; PULSE 79–133; RESP 16–20; TEMP 35.9–37.7; O2SAT 90–97
[2024-08-06] MEDS: HYDROcodone/acetaminophen (*CRX) 5-325 MG TABLET 1 TAB PO ×4 (00:38→17:34)
[2024-08-06 00:42] LABS: Glucose Point of Care 144 mg/dl (65-105)
[2024-08-06] MEDS: DEXTROSE 5%/0.9% SOD CHL 1,000 ML 100 ML IV CONT ×2 (00:43→15:26)
[2024-08-06] MEDS: HYDROmorphone HCL INJ (*CRX) 1 MG/ML SYR IV PUSH (02:45)
[2024-08-06] MEDS: chlordiazePOXIDE (*CRX) 10 MG CAPSULE PO ×3 (05:50→21:00)
[2024-08-06] MEDS: GABAPENTIN 300 MG CAPSULE PO ×3 (05:50→21:01)
[2024-08-06 06:04] LABS: Glucose Point of Care 134 mg/dl (65-105)
--- NOTE | 2024-08-06 08:02 | PM.IMPN ---
Progress Note: A&P Assessment and Plan (1) Acute on chronic pancreatitis: Code(s): K85.90 - Acute pancreatitis without necrosis or infection, unspecified; K86.1 - Other chronic pancreatitis Status: Acute Assessment and Plan: ## acute on chronic exacerbation --> most likely due to alcoholism. -continue IV hydration --> IV and po analgesia ordered --> trend lipase --1104-->470-->592 advance diet as tolerated (2) Hypertension: Qualifiers: Hypertension type: primary hypertension Qualified Code(s): I10 - Essential (primary) hypertension Code(s): I10 - Essential (primary) hypertension Status: Acute Assessment and Plan: -->Continue blood pressure medications monitor vital signs (3) Alcohol abuse: Code(s): F10.10 - Alcohol abuse, uncomplicated Status: Acute Assessment and Plan: ##chronic alcoholic. -->Librium scheduled -->CIWA protocol -->Thiamine as tolerated -Ativan prn severe agitated -librium 25 mg q6 mg started overnight (4) Tobacco dependence: Code(s): F17.200 - Nicotine dependence, unspecified, uncomplicated Status: Acute Assessment and Plan: ##cigarette smoker --Order nicotine patch -- discussed smoking cessation (5) Open wound of left great toe with damage to nail: Code(s): S91.202A - Unspecified open wound of left great toe with damage to nail, initial encounter Status: Acute Assessment and Plan: ##unknown cause --> consulted wound --> will start zosyn for surrounding cellulitis - trend wbc Time Spent With Patient Time with patient: Greater than 35 minutes (50 minutes) Subjective Date/time seen: 08/06/24 08:02 Interval history: 58-year-old male smoker with history of alcohol abuse, chronic pancreatitis, and hypertension who presented to the emergency department from [facility] for evaluation. The patient provides the following history. He was discharged from the hospital yesterday afternoon after a 3 day stay in which he was treated for acute on chronic pancreatitis and alcohol withdrawal. His pain had improved and he was tolerating clear liquids but is mentioned in his discharge summary that he had some difficulty with solid foods. After returning back to rehab, he ate a full dinner consisting of pork loins with mashed potatoes and gravy and green beans. Pt was in [facility] for alcohol withdrawl, however he did sign himself out, and continue to drink. Admitted here for acute on chronic pancreatitis. Pt drinks 12 Vodkas a day last drink was on Monday. Patient having high CIWAs and severe abdominal pains. Receiving IV pain medications. 08/05- had chest pain episode overnight, [id number] xray done. see crosscover note. was started on librium 25 mg q6h, received x 1 dose haldol 5 mg iv. thiamine increased to 300 mg daily he is c/o some abd pain. IV fluids running. NO BM for two days. 08/06-patient denies any chest pain, he has continued to have symptoms of alcohol withdrawal. He is continue with Ativan and Librium. Patient does continue to have abdominal discomfort. He did report that his feet were bothering him more, on inspection did note obvious signs of wounds. States that the like this for 2 weeks. He does admit that he is still reside at [facility] inpatient [facility] however he was upset and signed himself out. Patient states he has been walking and drinking a lot since he left the inpatient rehab. Under when these blisters actually began. He denies any fever, chills he denies any nausea, vomiting or diarrhea he denies any actively distress. Review of Systems Review of Systems: Severe abdominal pains bilateral toe discomfort. Exam Const: General: cooperative, no acute distress and anxious Nutritional Appearance: average body habitus Orientation/consciousness: patient oriented x3 HENMT: Head: normal to inspection and normocephalic Eyes: General: appearance normal, both eyes and all related structures Neck: Neck: normal visual inspection, full ROM, no lymphadenopathy and supple Chest: Chest palpation & inspection: normal inspection of the chest Resp: Effort & Inspection: normal respiratory effort Auscultation: clear to auscultation bilaterally Cardio: Jugular venous distension: no JVD Rate: regular rate Rhythm: regular rhythm Heart sounds: S1 normal heart sound present and S2 normal heart sound present Peripheral pulses: Peripheral pulses 2+ throughout GI: Inspection: normal to inspection GI Palp: Yes Soft to palpation Auscultation: normal bowel sounds Skin: Wounds: wounds noted left plantar 5th toe size (Circumferential distal toe including nail and pad, black and dry), malodorous and with surrounding erythema, left plantar 4th toe size (entire base of toe deep purple and tender. ) and malodorous, left plantar 2nd toe size (blister like area on the dorsal aspect of toe, tender to touch) and with surrounding erythema, right posterior 2nd toe size (blister that forms at the distal pad of toe and extends into the pad of foot. ) and with surrounding erythema Neuro: General: patient oriented x3 and moves all extremities Psych: Appearance: grossly normal Mental Status: mental status grossly normal Speech and movement: Normal speech and movement present Affect: Anxious affect present Attitude: cooperative Thought process: Normal thought process present Thought content: Yes Normal thought content present Insight: Good insight present (Psych) Judgement: Good judgement present (Psych) Objective Data Vital Signs Vital Signs: Vital Signs - 24 hr 08/05/24 12:00 08/05/24 12:00 08/05/24 16:00 Temperature 98.1 F Pulse Rate 121 H 123 H 112 H Respiratory Rate 22 H Blood Pressure 127/74 Pulse Oximetry 95 08/05/24 16:00 08/05/24 20:00 08/05/24 20:00 Temperature 97.8 F 98.2 F Pulse Rate 117 H 123 H 113 H Respiratory Rate 20 18 Blood Pressure 128/89 145/66 H Pulse Oximetry 92 97 08/06/24 00:00 08/06/24 00:00 08/06/24 04:00 Temperature 98 F Pulse Rate 117 H 133 H 124 H Respiratory Rate 18 Blood Pressure 145/91 H Pulse Oximetry 96 08/06/24 04:00 08/06/24 08:00 Temperature 98.8 F 96.7 F L Pulse Rate 79 108 H Respiratory Rate 18 18 Blood Pressure 124/75 118/81 Pulse Oximetry 90 94 Intake/Output Intake/Output: Intake & Output 08/03/24 08/05/24 08/05/24 08/06/24 23:59 00:59 23:59 23:59 Intake Total 1000 1552.1 1388.0 1000 Output Total 2150 1100 Balance 1000 -597.9 288.0 1000 Meds/Results Medications: Active Medications Generic Name Dose Route Start Last Admin Trade Name Freq PRN Reason Stop Dose Admin Hydrocodone Bitart/Acetaminophen 1 tab 08/04/24 13:28 08/06/24 06:23 Hydrocodone/Acetaminophen (*Crx) 5-325 Mg Tablet PO 1 tab Q4H PRN Administration Pain Rated 4-6 Amlodipine Besylate 10 mg 08/04/24 09:00 08/05/24 09:09 Amlodipine Besylate 10 Mg Tablet PO 10 mg DAILY DIAMOND Administration Lipase/Protease/Amylase 1 cap 08/04/24 08:00 08/05/24 16:33 Lipase/Amylase/Protease 12,000 Units Cap PO 1 cap TIDWM DIAMOND Administration Ascorbic Acid 500 mg 08/04/24 09:00 08/05/24 09:11 Ascorbic Acid 500 Mg Tablet PO 500 mg DAILY DIAMOND Administration Carbamazepine 200 mg 08/03/24 23:10 08/05/24 20:15 Carbamazepine 200 Mg Tablet PO 200 mg Q12HR DIAMOND Administration Chlordiazepoxide HCl 10 mg 08/04/24 13:30 08/06/24 05:50 Chlordiazepoxide (*Crx) 10 Mg Capsule PO 10 mg Q8HR DIAMOND Administration Chlordiazepoxide HCl 25 mg 08/05/24 03:30 Chlordiazepoxide (*Crx) 25 Mg Capsule PO Q6H PRN Withdrawal Duloxetine HCl 30 mg 08/04/24 09:00 08/05/24 16:33 Duloxetine Hcl 30 Mg Capsule.Dr PO 30 mg BID DIAMOND Administration Enoxaparin Sodium 40 mg 08/04/24 09:00 08/05/24 09:05 Enoxaparin 40 Mg/0.4 Ml Syringe SUB-Q 40 mg DAILY DIAMOND Administration Fenofibrate 160 mg 08/04/24 09:00 08/05/24 09:09 Fenofibrate 160 Mg Tablet PO 160 mg DAILY DIAMOND Administration Folic Acid 1 mg 08/04/24 09:00 08/05/24 09:09 Folic Acid 1 Mg Tablet BY MOUTH 1 mg DAILY DIAMOND Administration Gabapentin 300 mg 08/03/24 23:10 08/06/24 05:50 Gabapentin 300 Mg Capsule PO 300 mg Q8HR DIAMOND Administration Hydromorphone HCl 0.5 mg 08/04/24 03:34 Hydromorphone Hcl Inj (*Crx) 1 Mg/Ml Syr IV PUSH Q3H PRN Pain Rated 4-6 Hydromorphone HCl 1 mg 08/04/24 03:34 08/06/24 02:45 Hydromorphone Hcl Inj (*Crx) 1 Mg/Ml Syr IV PUSH 1 mg Q3H PRN Administration Pain Rated 7-10 Dextrose/Sodium Chloride 1,000 mls @ 100 mls/hr 08/05/24 01:55 08/06/24 00:43 Dextrose 5% Sodium Chloride 0.9% IV CONT 100 mls/hr .Q10H DIAMOND Administration Lorazepam 2 mg 08/04/24 20:52 08/05/24 02:15 Lorazepam Inj (*Crx) 2 Mg/Ml Vial IV PUSH 2 mg Q2H PRN Administration Alcohol Withdrawal Losartan Potassium 25 mg 08/04/24 09:00 08/05/24 09:11 Losartan Potassium 25 Mg Tablet PO 25 mg DAILY DIAMOND Administration Magnesium Oxide 400 mg 08/04/24 09:00 08/05/24 09:09 Magnesium Oxide 400 Mg Tablet PO 400 mg DAILY DIAMOND Administration Meloxicam 7.5 mg 08/03/24 23:10 08/05/24 09:01 Meloxicam 7.5 Mg Tablet PO 7.5 mg BID PRN Administration joint pain Metoclopramide HCl 10 mg 08/05/24 12:50 Metoclopramide Hcl Inj 10 Mg/2 Ml Vial IV PUSH Q6HR PRN nausea Miscellaneous Information 1 each 08/05/24 00:01 Reglan And Zofran Both Active Prn For N/V, Please Clarify When To Give Each XX 09/04/24 00:00 CLARIFY DIAMOND Nicotine 1 patch 08/04/24 09:00 08/05/24 09:07 Nicotine (*Pbkc) 14 Mg Patch TRANSDERM 1 patch DAILY DIAMOND Administration Ondansetron HCl 4 mg 08/03/24 19:36 08/05/24 16:38 Ondansetron Inj 4 Mg/2 Ml Vial IV PUSH 4 mg Q4H PRN Administration Nausea Pantoprazole Sodium 40 mg 08/04/24 09:00 08/05/24 09:09 Pantoprazole 40 Mg Tablet BY MOUTH 40 mg DAILY DIAMOND Administration Polyethylene Glycol 17 gm 08/05/24 12:46 08/05/24 12:53 Polyethylene Glycol 3350 17 Gm Powd.Pack PO 17 gm QAM PRN Administration Constipation Potassium Chloride 10 meq 08/04/24 08:00 08/05/24 09:09 Potassium Chloride 10 Meq Er Tablet PO 10 meq DAILY@0800 DIAMOND Administration Thiamine HCl 300 mg 08/05/24 09:00 08/05/24 09:10 Thiamine Hcl 100 Mg Tablet PO 300 mg QAM DIAMOND Administration Trazodone HCl 50 mg 08/04/24 01:05 08/05/24 20:15 Trazodone Hcl 50 Mg Tablet PO 50 mg HS DIAMOND Administration Radiology Results: ITS Impressions Chest X-Ray 08/05/24 06:18 Impression: Discoid atelectasis or scarring left lung base, otherwise clear lungs. Labs Labs: Laboratory Results - last 24 hr 08/05/24 08/05/24 08/05/24 08:19 11:16 17:42 POC Capillary Glucose 148 H 132 H Troponin I < 0.012 08/06/24 08/06/24 00:32 05:59 POC Capillary Glucose 144 H 134 H Troponin I Quality VTE Prophylaxis VTE prophylaxis: pharmacologic ordered Hospitalist MIPS Advance Care Plan I have confirmed that the patient's Advanced Care Plan is present, code status is documented, or surrogate decision maker is listed in patient medical record.: Yes Medication Reconciliation I have utilized all available resources to obtain, update and review the patients current medications (includes all prescriptions, OTC, herbals, cannabis, and nutritional supplements).: Yes
[2024-08-06] MEDS: NICOTINE (*PBKC) 14 MG PATCH 1 PATCH TRANSDERM (08:06)
[2024-08-06] MEDS: ONDANSETRON INJ 4 MG/2 ML VIAL IV PUSH (08:06)
[2024-08-06] MEDS: MAGNESIUM OXIDE 400 MG TABLET PO (08:07)
[2024-08-06] MEDS: amLODIPine BESYLATE 10 MG TABLET PO (08:07)
[2024-08-06] MEDS: PANTOPRAZOLE 40 MG TABLET BY MOUTH (08:07)
[2024-08-06] MEDS: THIAMINE HCL 100 MG TABLET 300 MG PO (08:07)
[2024-08-06] MEDS: FOLIC ACID 1 MG TABLET BY MOUTH (08:07)
[2024-08-06] MEDS: ASCORBIC ACID 500 MG TABLET PO (08:07)
[2024-08-06] MEDS: LIPASE/AMYLASE/PROTEASE 12,000 UNITS CAP 1 CAP PO ×3 (08:07→17:34)
[2024-08-06] MEDS: POTASSIUM CHLORIDE 10 MEQ ER TABLET PO (08:07)
[2024-08-06] MEDS: carBAMazepine 200 MG TABLET PO ×2 (08:07→21:01)
[2024-08-06] MEDS: LOSARTAN POTASSIUM 25 MG TABLET PO (08:07)
[2024-08-06] MEDS: DULoxetine HCL 30 MG CAPSULE.DR PO ×2 (08:07→17:35)
[2024-08-06] MEDS: FENOFIBRATE 160 MG TABLET PO (08:07)
[2024-08-06] MEDS: ENOXAPARIN 40 MG/0.4 ML SYRINGE SUB-Q (08:08)
[2024-08-06] MEDS: LORazepam INJ (*CRX) 2 MG/ML VIAL IV PUSH (08:23)
[2024-08-06] MEDS: MELOXICAM 7.5 MG TABLET PO (08:39)
[2024-08-06 08:47] LABS: Basophils Percent Auto 0.4 % (0.2-1.2); Eosinophils Percent Auto 0.1 % (0-4.4); Hematocrit 31.4 % (42.0-52.0); Hemoglobin 10.3 g/dL (14.0-18.0); Immature Granulocyte Absolute 0.08 K/mm3 (0.00-0.031); Lymphocytes Absolute Auto 0.83 K/mm3 (0.9-3.2); Mean Corpuscular HGB Conc 32.8 g/dl (32-36); Mean Corpuscular Hemoglobin 30.2 pg (26-34); Mean Corpuscular Volume 92.1 fl (80-100); Mean Platelet Volume 9.2 fl (7.4-10.4); Monocytes Absolute Auto 2.2 K/mm3 (0.1-0.6); Monocytes Percent Auto 25.8 % (2.6-8.5); Neutrophils Absolute Auto 5.2 K/mm3 (1.3-6.7); Neutrophils Percent Auto 62.7 % (45.5-73.1); Platelet Count Result 252 k/mm3 (150-375); Red Blood Count 3.41 M/mm3 (4.6-6.20); Red Cell Distribution Width 16.8 % (11.5-14.5); White Blood Count 8.3 K/mm3 (4.5-10.0)
[2024-08-06 09:08] LABS: Alanine Aminotransferase 53 U/L (6-50); Albumin Level 3.5 g/dL (3.5-5.1); Alkaline Phosphatase 245 U/L (38-126); Anion Gap 9 mmol/L (4-12); Aspartate Amino Transferase 61 U/L (17-59); Bilirubin,Total 0.5 mg/dL (0.2-1.3); Blood Urea Nitrogen 5 mg/dL (9-20); Calcium 8.7 mg/dL (8.4-10.2); Carbon Dioxide 24 mmol/L (22-30); Chloride 99 mmol/L (98-107); Estimated CRCL calculation 108 ml/min; Estimated Glomerular Filt Rate > 60; Glucose 132 mg/dL (65-110); Lipase 592 U/L (23-300); Sodium 132 mmol/L (137-145)
[2024-08-06 12:01] LABS: Glucose Point of Care 124 mg/dl (65-105)
[2024-08-06] MEDS: CEFEPIME 2 GM/NS 50 ML 2 GM/50 ML BAG IVPB ×2 (13:03→23:20)
[2024-08-06] MEDS: metroNIDAZOLE 500 MG TABLET PO ×2 (13:03→21:01)
[2024-08-06 17:45] LABS: Glucose Point of Care 106 mg/dl (65-105)
[2024-08-06] MEDS: traZODone HCL 50 MG TABLET PO (21:01)
[2024-08-07] VITALS (7 sets, daily range): BP systolic 110–141; BP diastolic 70–86; PULSE 74–119; RESP 18–22; TEMP 36.2–38.6; O2SAT 96–100
[2024-08-07 00:12] LABS: Glucose Point of Care 126 mg/dl (65-105)
[2024-08-07] MEDS: HYDROcodone/acetaminophen (*CRX) 5-325 MG TABLET 1 TAB PO ×4 (00:12→20:11)
[2024-08-07] MEDS: NICOTINE (*PBKC) 4 MG GUM PO ×2 (00:14→05:53)
[2024-08-07] MEDS: GABAPENTIN 300 MG CAPSULE PO ×3 (05:48→20:11)
[2024-08-07] MEDS: chlordiazePOXIDE (*CRX) 10 MG CAPSULE PO ×3 (05:48→20:12)
[2024-08-07] MEDS: metroNIDAZOLE 500 MG TABLET PO ×3 (05:50→20:13)
[2024-08-07 07:12] LABS: Alanine Aminotransferase 33 U/L (6-50); Albumin Level 3.4 g/dL (3.5-5.1); Alkaline Phosphatase 197 U/L (38-126); Anion Gap 8 mmol/L (4-12); Aspartate Amino Transferase 20 U/L (17-59); Bilirubin,Total 0.4 mg/dL (0.2-1.3); Blood Urea Nitrogen 6 mg/dL (9-20); Calcium 8.7 mg/dL (8.4-10.2); Carbon Dioxide 23 mmol/L (22-30); Chloride 99 mmol/L (98-107); Estimated CRCL calculation 107 ml/min; Estimated Glomerular Filt Rate > 60; Glucose 124 mg/dL (65-110); Potassium 3.6 mmol/L (3.4-5.0); Sodium 130 mmol/L (137-145)
[2024-08-07 07:13] LABS: Lipase 678 U/L (23-300)
[2024-08-07] MEDS: DEXTROSE 5%/0.9% SOD CHL 1,000 ML 100 ML IV CONT ×2 (09:20→23:49)
[2024-08-07] MEDS: amLODIPine BESYLATE 10 MG TABLET PO (09:22)
[2024-08-07] MEDS: POTASSIUM CHLORIDE 10 MEQ ER TABLET PO (09:22)
[2024-08-07] MEDS: FOLIC ACID 1 MG TABLET BY MOUTH (09:22)
[2024-08-07] MEDS: LOSARTAN POTASSIUM 25 MG TABLET PO (09:22)
[2024-08-07] MEDS: THIAMINE HCL 100 MG TABLET 300 MG PO (09:22)
[2024-08-07] MEDS: carBAMazepine 200 MG TABLET PO ×2 (09:22→20:12)
[2024-08-07] MEDS: MAGNESIUM OXIDE 400 MG TABLET PO (09:23)
[2024-08-07] MEDS: ASCORBIC ACID 500 MG TABLET PO (09:23)
[2024-08-07] MEDS: MELOXICAM 7.5 MG TABLET PO (09:23)
[2024-08-07] MEDS: LIPASE/AMYLASE/PROTEASE 12,000 UNITS CAP 1 CAP PO ×3 (09:23→17:27)
[2024-08-07] MEDS: PANTOPRAZOLE 40 MG TABLET BY MOUTH (09:23)
[2024-08-07] MEDS: DULoxetine HCL 30 MG CAPSULE.DR PO ×2 (09:23→17:28)
[2024-08-07] MEDS: FENOFIBRATE 160 MG TABLET PO (09:23)
[2024-08-07] MEDS: CEFEPIME 2 GM/NS 50 ML 2 GM/50 ML BAG IVPB ×2 (09:23→20:12)
[2024-08-07] MEDS: NICOTINE (*PBKC) 14 MG PATCH 1 PATCH TRANSDERM (09:24)
[2024-08-07] MEDS: ENOXAPARIN 40 MG/0.4 ML SYRINGE SUB-Q (09:24)
[2024-08-07] MEDS: polyethylene glycoL 3350 17 GM POWD.PACK PO (10:03)
[2024-08-07] MEDS: ONDANSETRON INJ 4 MG/2 ML VIAL IV PUSH (10:04)
--- NOTE | 2024-08-07 10:40 | P.PNIM_ITS ---
Progress Note: A&P Assessment and Plan (1) Acute on chronic pancreatitis: Code(s): K85.90 - Acute pancreatitis without necrosis or infection, unspecified; K86.1 - Other chronic pancreatitis Status: Acute Assessment and Plan: ## acute on chronic exacerbation --> most likely due to alcoholism. -continue IV hydration -Cefepime 2 gram IVPB q 12. --> IV and po analgesia ordered --> trend lipase --1104-->470-->592-->678 advance diet as tolerated (2) Hypertension: Qualifiers: Hypertension type: primary hypertension Qualified Code(s): I10 - Essential (primary) hypertension Code(s): I10 - Essential (primary) hypertension Status: Acute Assessment and Plan: -->Continue blood pressure medications monitor vital signs (3) Alcohol abuse: Code(s): F10.10 - Alcohol abuse, uncomplicated Status: Acute Assessment and Plan: ##chronic alcoholic. -->Librium scheduled -->CIWA protocol -->Thiamine as tolerated -Ativan prn severe agitated -librium 10 mg q8 (4) Tobacco dependence: Code(s): F17.200 - Nicotine dependence, unspecified, uncomplicated Status: Acute Assessment and Plan: ##cigarette smoker --Order nicotine patch -- discussed smoking cessation (5) Open wound of left great toe with damage to nail: Code(s): S91.A - Unspecified open wound of left great toe with damage to nail, initial encounter Status: Acute Assessment and Plan: ##unknown cause --> Wound nurse consulted- patient has dry old blood blisters on the end of several toes on both feet. All areas are dry and easily peeled off. Skin underneath is 100% closed, healed, and faye. No wound care needed at this time . - WBC- 8.4. (6) Nausea and vomiting: Qualifiers: Vomiting type: unspecified Qualified Code(s): R11.2 - Nausea with vomiting, unspecified Code(s): R11.2 - Nausea with vomiting, unspecified Status: Inactive Assessment and Plan: * Ondansetron 4 mg IVP q 4 PRN. * Eat slowly as tolerated. * D5NS @ 100 ml/hr. (7) Constipation: Code(s): K59.00 - Constipation, unspecified Status: Acute Assessment and Plan: * Miralax 17 gram PO daily PRN. * Add Docusate 100 mg PO q12 PRN. (8) Headache: Code(s): R51.9 - Headache, unspecified Status: Acute Assessment and Plan: * Hydrocodone/Acetaminophen 5-325 mg 1 tab PO q 4 PRN. Subjective Date/time seen: 08/07/24 10:40 Interval history: Patient reports pain in abdomen is a 10 , frequent, aching, and sharp at times. Patient reports episode of nausea with vomiting this morning. Patient reports having a migraine that is a 20 , constant, and aching. Patient denies chest pain, palpitations, shortness of breath, or dizziness. Review of Systems Review of Systems: All systems reviewed & are unremarkable except as noted in HPI and below Exam Const: General: no acute distress and uncomfortable Resp: Effort & Inspection: normal respiratory effort Auscultation: clear to auscultation bilaterally Cardio: Rate: regular rate Rhythm: regular rhythm Other: Telemetry- SR 99 GI: GI Palp: Yes Soft to palpation and Yes Tenderness to palpation present (GI) Auscultation: normal bowel sounds Skin: General skin exam: no rashes or lesions noted Other: Patient has dry old blood blisters on the end of several toes on both feet. Healthy closed tissue underneath. Neuro: Speech: normal speech Extrem: General: no pedal edema Psych: Mental Status: mental status grossly normal Affect: Anxious affect present Objective Data Vital Signs Vital Signs: Vital Signs - 24 hr 08/06/24 11:56 08/06/24 12:00 08/06/24 12:00 Temperature 98.5 F Pulse Rate 104 H 111 H Pulse Rate [Apical Monitor] 108 H Respiratory Rate 18 Blood Pressure 106/67 Pulse Oximetry 94 08/06/24 16:00 08/06/24 16:00 08/06/24 16:00 Temperature 98.2 F Pulse Rate 99 111 H Pulse Rate [Apical Monitor] 104 H Respiratory Rate 16 Blood Pressure 109/76 Pulse Oximetry 95 08/06/24 20:00 08/06/24 20:00 08/06/24 20:00 Temperature 99.9 F H Pulse Rate 119 H 110 H Pulse Rate [Apical Monitor] 119 H Respiratory Rate 20 Blood Pressure 125/91 H Pulse Oximetry 97 08/07/24 00:00 08/07/24 00:00 08/07/24 00:00 Temperature 101.5 F H Pulse Rate 106 H 109 H Pulse Rate [Apical Monitor] 109 H Respiratory Rate 20 Blood Pressure 137/86 Pulse Oximetry 96 08/07/24 04:00 08/07/24 04:00 Temperature 99.4 F Pulse Rate 119 H Pulse Rate [Apical Monitor] 109 H Respiratory Rate 18 Blood Pressure 127/84 Pulse Oximetry 100 Intake/Output Intake/Output: Intake & Output 08/05/24 08/05/24 08/06/24 08/07/24 00:59 23:59 23:59 23:59 Intake Total 1552.1 1388.0 2100 1240 Output Total 2150 1100 400 350 Balance -597.9 288.0 1700 890 Meds/Results Medications: Active Medications Generic Name Dose Route Start Last Admin Trade Name Freq PRN Reason Stop Dose Admin Hydrocodone Bitart/Acetaminophen 1 tab 08/04/24 13:28 08/07/24 09:22 Hydrocodone/Acetaminophen (*Crx) 5-325 Mg Tablet PO 1 tab Q4H PRN Administration Pain Rated 4-6 Amlodipine Besylate 10 mg 08/04/24 09:00 08/07/24 09:22 Amlodipine Besylate 10 Mg Tablet PO 10 mg DAILY DIAMOND Administration Lipase/Protease/Amylase 1 cap 08/04/24 08:00 08/07/24 09:23 Lipase/Amylase/Protease 12,000 Units Cap PO 1 cap TIDWM DIAMOND Administration Ascorbic Acid 500 mg 08/04/24 09:00 08/07/24 09:23 Ascorbic Acid 500 Mg Tablet PO 500 mg DAILY DIAMOND Administration Carbamazepine 200 mg 08/03/24 23:10 08/07/24 09:22 Carbamazepine 200 Mg Tablet PO 200 mg Q12HR DIAMOND Administration Chlordiazepoxide HCl 10 mg 08/04/24 13:30 08/07/24 05:48 Chlordiazepoxide (*Crx) 10 Mg Capsule PO 10 mg Q8HR DIAMOND Administration Chlordiazepoxide HCl 25 mg 08/05/24 03:30 Chlordiazepoxide (*Crx) 25 Mg Capsule PO Q6H PRN Withdrawal Duloxetine HCl 30 mg 08/04/24 09:00 08/07/24 09:23 Duloxetine Hcl 30 Mg Capsule.Dr PO 30 mg BID DIAMOND Administration Enoxaparin Sodium 40 mg 08/04/24 09:00 08/07/24 09:24 Enoxaparin 40 Mg/0.4 Ml Syringe SUB-Q 40 mg DAILY DIAMOND Administration Fenofibrate 160 mg 08/04/24 09:00 08/07/24 09:23 Fenofibrate 160 Mg Tablet PO 160 mg DAILY DIAMOND Administration Folic Acid 1 mg 08/04/24 09:00 08/07/24 09:22 Folic Acid 1 Mg Tablet BY MOUTH 1 mg DAILY DIAMOND Administration Gabapentin 300 mg 08/03/24 23:10 08/07/24 05:48 Gabapentin 300 Mg Capsule PO 300 mg Q8HR DIAMOND Administration Hydromorphone HCl 0.5 mg 08/04/24 03:34 Hydromorphone Hcl Inj (*Crx) 1 Mg/Ml Syr IV PUSH Q3H PRN Pain Rated 4-6 Hydromorphone HCl 1 mg 08/04/24 03:34 08/06/24 02:45 Hydromorphone Hcl Inj (*Crx) 1 Mg/Ml Syr IV PUSH 1 mg Q3H PRN Administration Pain Rated 7-10 Dextrose/Sodium Chloride 1,000 mls @ 100 mls/hr 08/05/24 01:55 08/07/24 09:20 Dextrose 5% Sodium Chloride 0.9% IV CONT 100 mls/hr .Q10H DIAMOND Administration Cefepime HCl 2 gm in 50 mls @ 100 mls/hr 08/06/24 13:00 08/07/24 09:23 Maxipime 2 Gm/Ns 50 Ml IVPB 100 mls/hr Q12HR DIAMOND Administration Lorazepam 2 mg 08/04/24 20:52 08/06/24 08:23 Lorazepam Inj (*Crx) 2 Mg/Ml Vial IV PUSH 2 mg Q2H PRN Administration Alcohol Withdrawal Losartan Potassium 25 mg 08/04/24 09:00 08/07/24 09:22 Losartan Potassium 25 Mg Tablet PO 25 mg DAILY DIAMOND Administration Magnesium Oxide 400 mg 08/04/24 09:00 08/07/24 09:23 Magnesium Oxide 400 Mg Tablet PO 400 mg DAILY DIAMOND Administration Meloxicam 7.5 mg 08/03/24 23:10 08/07/24 09:23 Meloxicam 7.5 Mg Tablet PO 7.5 mg BID PRN Administration joint pain Metoclopramide HCl 10 mg 08/05/24 12:50 Metoclopramide Hcl Inj 10 Mg/2 Ml Vial IV PUSH Q6HR PRN nausea Metronidazole 500 mg 08/06/24 14:00 08/07/24 05:50 Metronidazole 500 Mg Tablet PO 500 mg Q8HR DIAMOND Administration Miscellaneous Information 1 each 08/05/24 00:01 Reglan And Zofran Both Active Prn For N/V, Please Clarify When To Give Each XX 09/04/24 00:00 CLARIFY DIAMOND Nicotine 1 patch 08/04/24 09:00 08/07/24 09:24 Nicotine (*Pbkc) 14 Mg Patch TRANSDERM 1 patch DAILY DIAMOND Administration Nicotine Polacrilex 4 mg 08/06/24 23:51 08/07/24 05:53 Nicotine (*Pbkc) 4 Mg Gum PO 4 mg PRN PRN Administration Nicotine Cravings Ondansetron HCl 4 mg 08/03/24 19:36 08/07/24 10:04 Ondansetron Inj 4 Mg/2 Ml Vial IV PUSH 4 mg Q4H PRN Administration Nausea Pantoprazole Sodium 40 mg 08/04/24 09:00 08/07/24 09:23 Pantoprazole 40 Mg Tablet BY MOUTH 40 mg DAILY DIAMOND Administration Polyethylene Glycol 17 gm 08/05/24 12:46 08/07/24 10:03 Polyethylene Glycol 3350 17 Gm Powd.Pack PO 17 gm QAM PRN Administration Constipation Potassium Chloride 10 meq 08/04/24 08:00 08/07/24 09:22 Potassium Chloride 10 Meq Er Tablet PO 10 meq DAILY@0800 DIAMOND Administration Thiamine HCl 300 mg 08/05/24 09:00 08/07/24 09:22 Thiamine Hcl 100 Mg Tablet PO 300 mg QAM DIAMOND Administration Trazodone HCl 50 mg 08/04/24 01:05 08/06/24 21:01 Trazodone Hcl 50 Mg Tablet PO 50 mg HS DIAMOND Administration Radiology Results: ITS Impressions Chest X-Ray 08/05/24 06:18 Impression: Discoid atelectasis or scarring left lung base, otherwise clear lungs. Foot X-Ray 08/06/24 13:36 IMPRESSION: 1. Mild polyarticular osteoarthritis. Labs Labs: Laboratory Results - last 24 hr 08/06/24 08/06/24 08/07/24 11:58 17:43 00:09 Sodium Potassium Chloride Carbon Dioxide Anion Gap BUN Creatinine Estim Creat Clear Calc Estimated GFR Glucose POC Capillary Glucose 124 H 106 H 126 H Calcium Total Bilirubin AST ALT Alkaline Phosphatase Total Protein Albumin Lipase 08/07/24 08/07/24 06:22 06:24 Sodium 130 L Potassium 3.6 Chloride 99 Carbon Dioxide 23 Anion Gap 8 BUN 6 L Creatinine 0.71 Estim Creat Clear Calc 107 Estimated GFR > 60 Glucose 124 H POC Capillary Glucose Calcium 8.7 Total Bilirubin 0.4 AST 20 ALT 33 Alkaline Phosphatase 197 H Total Protein 7.0 Albumin 3.4 L Lipase 678 H Quality VTE Prophylaxis VTE prophylaxis: pharmacologic ordered
[2024-08-07 11:32] LABS: Basophils Percent Auto 0.4 % (0.2-1.2); Eosinophils Percent Auto 0.5 % (0-4.4); Hematocrit 29.2 % (42.0-52.0); Hemoglobin 9.5 g/dL (14.0-18.0); Immature Granulocyte Absolute 0.03 K/mm3 (0.00-0.031); Immature Granulocyte Percent A 0.4 % (0-0.5); Lymphocytes Absolute Auto 0.71 K/mm3 (0.9-3.2); Lymphocytes Percent Auto 8.4 % (18.3-44.2); Mean Corpuscular HGB Conc 32.5 g/dl (32-36); Mean Corpuscular Hemoglobin 30.2 pg (26-34); Mean Corpuscular Volume 92.7 fl (80-100); Mean Platelet Volume 9.7 fl (7.4-10.4); Monocytes Absolute Auto 1.8 K/mm3 (0.1-0.6); Monocytes Percent Auto 21.1 % (2.6-8.5); Neutrophils Absolute Auto 5.9 K/mm3 (1.3-6.7); Neutrophils Percent Auto 69.2 % (45.5-73.1); Platelet Count Result 302 k/mm3 (150-375); Red Blood Count 3.15 M/mm3 (4.6-6.20); Red Cell Distribution Width 17.3 % (11.5-14.5); White Blood Count 8.4 K/mm3 (4.5-10.0)
[2024-08-07 11:55] LABS: Glucose Point of Care 157 mg/dl (65-105)
[2024-08-07] MEDS: LORazepam INJ (*CRX) 2 MG/ML VIAL IV PUSH (13:06)
[2024-08-07 17:52] LABS: Glucose Point of Care 110 mg/dl (65-105)
[2024-08-07] MEDS: traZODone HCL 50 MG TABLET PO (20:11)
[2024-08-08] VITALS: BP 112/79; PULSE 91; RESP 20; TEMP 36.6; O2SAT 98
[2024-08-08 00:18] LABS: Glucose Point of Care 140 mg/dl (65-105)
[2024-08-08] MEDS: HYDROcodone/acetaminophen (*CRX) 5-325 MG TABLET 1 TAB PO ×2 (02:35→06:45)
[2024-08-08] MEDS: ONDANSETRON INJ 4 MG/2 ML VIAL IV PUSH ×2 (02:36→10:24)
[2024-08-08] MEDS: polyethylene glycoL 3350 17 GM POWD.PACK PO ×2 (02:43→09:27)
[2024-08-08 04:00] VITALS: BP 114/71; PULSE 93; PULSE 95; RESP 18; TEMP 36.6; O2SAT 98
[2024-08-08] MEDS: GABAPENTIN 300 MG CAPSULE PO ×3 (05:40→21:16)
[2024-08-08] MEDS: metroNIDAZOLE 500 MG TABLET PO ×3 (05:40→21:16)
[2024-08-08] MEDS: chlordiazePOXIDE (*CRX) 10 MG CAPSULE PO ×3 (05:40→21:16)
[2024-08-08 05:41] LABS: Glucose Point of Care 96 mg/dl (65-105)
[2024-08-08 07:00] LABS: Basophils Percent Auto 0.6 % (0.2-1.2); Eosinophils Absolute Auto 0.1 K/mm3 (0-0.3); Eosinophils Percent Auto 1.6 % (0-4.4); Hematocrit 29.9 % (42.0-52.0); Hemoglobin 9.7 g/dL (14.0-18.0); Immature Granulocyte Absolute 0.02 K/mm3 (0.00-0.031); Immature Granulocyte Percent A 0.3 % (0-0.5); Lymphocytes Absolute Auto 1.15 K/mm3 (0.9-3.2); Lymphocytes Percent Auto 18.2 % (18.3-44.2); Mean Corpuscular HGB Conc 32.4 g/dl (32-36); Mean Corpuscular Hemoglobin 30.3 pg (26-34); Mean Corpuscular Volume 93.4 fl (80-100); Mean Platelet Volume 9.1 fl (7.4-10.4); Monocytes Absolute Auto 0.9 K/mm3 (0.1-0.6); Monocytes Percent Auto 14.4 % (2.6-8.5); Neutrophils Absolute Auto 4.1 K/mm3 (1.3-6.7); Neutrophils Percent Auto 64.9 % (45.5-73.1); Platelet Count Result 385 k/mm3 (150-375); Red Cell Distribution Width 17.2 % (11.5-14.5); White Blood Count 6.3 K/mm3 (4.5-10.0)
[2024-08-08 07:19] LABS: Alanine Aminotransferase 28 U/L (6-50); Albumin Level 3.5 g/dL (3.5-5.1); Alkaline Phosphatase 174 U/L (38-126); Anion Gap 10 mmol/L (4-12); Aspartate Amino Transferase 27 U/L (17-59); Bilirubin,Total 0.5 mg/dL (0.2-1.3); Blood Urea Nitrogen 7 mg/dL (9-20); Carbon Dioxide 22 mmol/L (22-30); Chloride 102 mmol/L (98-107); Estimated CRCL calculation 117 ml/min; Estimated Glomerular Filt Rate > 60; Glucose 105 mg/dL (65-110); Lipase 528 U/L (23-300); Potassium 3.9 mmol/L (3.4-5.0); Sodium 134 mmol/L (137-145)
[2024-08-08 08:00] VITALS: PULSE 93
[2024-08-08] MEDS: FENOFIBRATE 160 MG TABLET PO (09:27)
[2024-08-08] MEDS: DOCUSATE SODIUM 100 MG CAPSULE PO (09:27)
[2024-08-08] MEDS: PANTOPRAZOLE 40 MG TABLET BY MOUTH (09:27)
[2024-08-08] MEDS: THIAMINE HCL 100 MG TABLET 300 MG PO (09:27)
[2024-08-08] MEDS: ASCORBIC ACID 500 MG TABLET PO (09:27)
[2024-08-08] MEDS: carBAMazepine 200 MG TABLET PO ×2 (09:27→21:16)
[2024-08-08] MEDS: LOSARTAN POTASSIUM 25 MG TABLET PO (09:27)
[2024-08-08] MEDS: MELOXICAM 7.5 MG TABLET PO (09:27)
[2024-08-08] MEDS: LIPASE/AMYLASE/PROTEASE 12,000 UNITS CAP 1 CAP PO ×3 (09:28→16:57)
[2024-08-08] MEDS: amLODIPine BESYLATE 10 MG TABLET PO (09:28)
[2024-08-08] MEDS: FOLIC ACID 1 MG TABLET BY MOUTH (09:28)
[2024-08-08] MEDS: DULoxetine HCL 30 MG CAPSULE.DR PO ×2 (09:28→16:57)
[2024-08-08] MEDS: POTASSIUM CHLORIDE 10 MEQ ER TABLET PO (09:28)
[2024-08-08] MEDS: MAGNESIUM OXIDE 400 MG TABLET PO (09:28)
[2024-08-08] MEDS: ENOXAPARIN 40 MG/0.4 ML SYRINGE SUB-Q (09:28)
[2024-08-08] MEDS: NICOTINE (*PBKC) 14 MG PATCH 1 PATCH TRANSDERM (09:28)
[2024-08-08] MEDS: CEFEPIME 2 GM/NS 50 ML 2 GM/50 ML BAG IVPB ×2 (09:30→21:17)
--- NOTE | 2024-08-08 11:02 | P.PNIM_ITS ---
Progress Note: A&P Assessment and Plan (1) Acute on chronic pancreatitis: Code(s): K85.90 - Acute pancreatitis without necrosis or infection, unspecified; K86.1 - Other chronic pancreatitis Status: Acute Assessment and Plan: ## acute on chronic exacerbation --> most likely due to alcoholism. -continue IV hydration -Cefepime 2 gram IVPB q 12. --> IV and po analgesia ordered --> trend lipase --1104-->470-->592-->678 advance diet as tolerated 08/08/24: * Continue to trend Lipase, today is 528. * Unable to advance diet today due to pt's persistent nausea. (2) Hypertension: Qualifiers: Hypertension type: primary hypertension Qualified Code(s): I10 - Essential (primary) hypertension Code(s): I10 - Essential (primary) hypertension Status: Acute Assessment and Plan: -->Continue blood pressure medications monitor vital signs 08/08/24: * Stable, continue to monitor. (3) Alcohol abuse: Code(s): F10.10 - Alcohol abuse, uncomplicated Status: Acute Assessment and Plan: ##chronic alcoholic. -->Librium scheduled -->CIWA protocol -->Thiamine as tolerated -Ativan prn severe agitated -librium 10 mg q8 08/08/24: * CIWA today is 6 at the highest. (4) Tobacco dependence: Code(s): F17.200 - Nicotine dependence, unspecified, uncomplicated Status: Acute Assessment and Plan: ##cigarette smoker --Order nicotine patch -- discussed smoking cessation (5) Open wound of left great toe with damage to nail: Code(s): S91.A - Unspecified open wound of left great toe with damage to nail, initial encounter Status: Acute Assessment and Plan: ##unknown cause --> Wound nurse consulted- patient has dry old blood blisters on the end of several toes on both feet. All areas are dry and easily peeled off. Skin underneath is 100% closed, healed, and faye. No wound care needed at this time . - WBC- 8.4. 08/08/24: * Pt was consulted on by Wound care and no treatment recommended at this time as the appearance of the toes were blood blisters only. Skin underneath was clear. (6) Nausea and vomiting: Qualifiers: Vomiting type: unspecified Qualified Code(s): R11.2 - Nausea with vomiting, unspecified Code(s): R11.2 - Nausea with vomiting, unspecified Status: Inactive Assessment and Plan: * Ondansetron 4 mg IVP q 4 PRN. * Eat slowly as tolerated. * D5NS @ 100 ml/hr. 08/08/24: * Continue liquid diet at this time as pt is continually nauseated and we are unable to progress diet at this time. (7) Constipation: Code(s): K59.00 - Constipation, unspecified Status: Acute Assessment and Plan: * Miralax 17 gram PO daily PRN. * Add Docusate 100 mg PO q12 PRN. (8) Headache: Code(s): R51.9 - Headache, unspecified Status: Acute Assessment and Plan: * Hydrocodone/Acetaminophen 5-325 mg 1 tab PO q 4 PRN. Time Spent With Patient Time with patient: 15 - 25 minutes Subjective Date/time seen: 08/08/24 11:02 Interval history: This pt was examined today in interval assessment. He continues to complain of pain and appears to be conversing and moving very slowly and in a muted manner. He also complains of constipation and will be getting a laxative today. He has no fevers, V/D but does continue to report nausea, thereby preventing the progression of his diet as of yet. No CP, dyspnea. Review of Systems Review of Systems: All systems reviewed & are unremarkable except as noted in HPI and below Exam Narrative: General: Chronically ill Respiratory: Lungs are clear to auscultation bilaterally. Cardiovascular: Regular rate and rhythm with S1-S2. Gastrointestinal: TTP over RUQ area Skin: Warm and dry. Extremities: No cyanosis, clubbing, or edema. Radial and pedal pulses intact. Neurological: Alert. Cranial nerves 2-12 are grossly intact. No tremors. No gross focal deficits to casual conversation. Psychiatric: Somnolent Objective Data Vital Signs Vital Signs: Vital Signs - 24 hr 08/07/24 11:52 08/07/24 12:00 08/07/24 12:00 Temperature 97.1 F L Pulse Rate 96 100 Pulse Rate [Apical Monitor] 100 Respiratory Rate 22 H Blood Pressure 140/84 Pulse Oximetry 08/07/24 16:00 08/07/24 16:00 08/07/24 16:00 Temperature 97.5 F L Pulse Rate 100 74 Pulse Rate [Apical Monitor] 99 Respiratory Rate 20 Blood Pressure 130/70 Pulse Oximetry 98 08/07/24 20:00 08/07/24 20:00 08/08/24 00:00 Temperature 97.8 F 97.8 F Pulse Rate 101 H 91 Pulse Rate [Apical Monitor] 101 H Respiratory Rate 18 20 Blood Pressure 110/79 112/79 Pulse Oximetry 97 98 08/08/24 00:00 08/08/24 04:00 08/08/24 04:00 Temperature Pulse Rate 93 Pulse Rate [Apical Monitor] 91 93 Respiratory Rate Blood Pressure Pulse Oximetry 08/08/24 04:00 Temperature 97.9 F Pulse Rate 95 Pulse Rate [Apical Monitor] Respiratory Rate 18 Blood Pressure 114/71 Pulse Oximetry 98 Intake/Output Intake/Output: Intake & Output 08/05/24 08/06/24 08/07/24 08/08/24 23:59 23:59 23:59 23:59 Intake Total 1388.0 2100 3320 680 Output Total 1100 400 350 Balance 288.0 1700 2970 680 Meds/Results Medications: Active Medications Generic Name Dose Route Start Last Admin Trade Name Freq PRN Reason Stop Dose Admin Hydrocodone Bitart/Acetaminophen 1 tab 08/04/24 13:28 08/08/24 06:45 Hydrocodone/Acetaminophen (*Crx) 5-325 Mg Tablet PO 1 tab Q4H PRN Administration Pain Rated 4-6 Amlodipine Besylate 10 mg 08/04/24 09:00 08/08/24 09:28 Amlodipine Besylate 10 Mg Tablet PO 10 mg DAILY DIAMOND Administration Lipase/Protease/Amylase 1 cap 08/04/24 08:00 08/08/24 09:28 Lipase/Amylase/Protease 12,000 Units Cap PO 1 cap TIDWM DIAMOND Administration Ascorbic Acid 500 mg 08/04/24 09:00 08/08/24 09:27 Ascorbic Acid 500 Mg Tablet PO 500 mg DAILY DIAMOND Administration Carbamazepine 200 mg 08/03/24 23:10 08/08/24 09:27 Carbamazepine 200 Mg Tablet PO 200 mg Q12HR DIAMOND Administration Chlordiazepoxide HCl 10 mg 08/04/24 13:30 08/08/24 05:40 Chlordiazepoxide (*Crx) 10 Mg Capsule PO 10 mg Q8HR DIAMOND Administration Chlordiazepoxide HCl 25 mg 08/05/24 03:30 Chlordiazepoxide (*Crx) 25 Mg Capsule PO Q6H PRN Withdrawal Docusate Sodium 100 mg 08/07/24 11:10 08/08/24 09:27 Docusate Sodium 100 Mg Capsule PO 100 mg Q12H PRN Administration Constipation Duloxetine HCl 30 mg 08/04/24 09:00 08/08/24 09:28 Duloxetine Hcl 30 Mg Capsule.Dr PO 30 mg BID DIAMOND Administration Enoxaparin Sodium 40 mg 08/04/24 09:00 08/08/24 09:28 Enoxaparin 40 Mg/0.4 Ml Syringe SUB-Q 40 mg DAILY DIAMOND Administration Fenofibrate 160 mg 08/04/24 09:00 08/08/24 09:27 Fenofibrate 160 Mg Tablet PO 160 mg DAILY DIAMOND Administration Folic Acid 1 mg 08/04/24 09:00 08/08/24 09:28 Folic Acid 1 Mg Tablet BY MOUTH 1 mg DAILY DIAMOND Administration Gabapentin 300 mg 08/03/24 23:10 08/08/24 05:40 Gabapentin 300 Mg Capsule PO 300 mg Q8HR DIAMOND Administration Hydromorphone HCl 0.5 mg 08/04/24 03:34 Hydromorphone Hcl Inj (*Crx) 1 Mg/Ml Syr IV PUSH Q3H PRN Pain Rated 4-6 Hydromorphone HCl 1 mg 08/04/24 03:34 08/06/24 02:45 Hydromorphone Hcl Inj (*Crx) 1 Mg/Ml Syr IV PUSH 1 mg Q3H PRN Administration Pain Rated 7-10 Dextrose/Sodium Chloride 1,000 mls @ 100 mls/hr 08/05/24 01:55 08/07/24 23:49 Dextrose 5% Sodium Chloride 0.9% IV CONT 100 mls/hr .Q10H DIAMOND Administration Cefepime HCl 2 gm in 50 mls @ 100 mls/hr 08/06/24 13:00 08/08/24 09:30 Maxipime 2 Gm/Ns 50 Ml IVPB 100 mls/hr Q12HR DIAMOND Administration Lorazepam 2 mg 08/04/24 20:52 08/07/24 13:06 Lorazepam Inj (*Crx) 2 Mg/Ml Vial IV PUSH 2 mg Q2H PRN Administration Alcohol Withdrawal Losartan Potassium 25 mg 08/04/24 09:00 08/08/24 09:27 Losartan Potassium 25 Mg Tablet PO 25 mg DAILY DIAMOND Administration Magnesium Oxide 400 mg 08/04/24 09:00 08/08/24 09:28 Magnesium Oxide 400 Mg Tablet PO 400 mg DAILY DIAMOND Administration Meloxicam 7.5 mg 08/03/24 23:10 08/08/24 09:27 Meloxicam 7.5 Mg Tablet PO 7.5 mg BID PRN Administration joint pain Metoclopramide HCl 10 mg 08/05/24 12:50 Metoclopramide Hcl Inj 10 Mg/2 Ml Vial IV PUSH Q6HR PRN nausea Metronidazole 500 mg 08/06/24 14:00 08/08/24 05:40 Metronidazole 500 Mg Tablet PO 500 mg Q8HR DIAMOND Administration Miscellaneous Information 1 each 08/05/24 00:01 Reglan And Zofran Both Active Prn For N/V, Please Clarify When To Give Each XX 09/04/24 00:00 CLARIFY DIAMOND Nicotine 1 patch 08/04/24 09:00 08/08/24 09:28 Nicotine (*Pbkc) 14 Mg Patch TRANSDERM 1 patch DAILY DIAMOND Administration Nicotine Polacrilex 4 mg 08/06/24 23:51 08/07/24 05:53 Nicotine (*Pbkc) 4 Mg Gum PO 4 mg PRN PRN Administration Nicotine Cravings Ondansetron HCl 4 mg 08/03/24 19:36 08/08/24 10:24 Ondansetron Inj 4 Mg/2 Ml Vial IV PUSH 4 mg Q4H PRN Administration Nausea Pantoprazole Sodium 40 mg 08/04/24 09:00 08/08/24 09:27 Pantoprazole 40 Mg Tablet BY MOUTH 40 mg DAILY DIAMOND Administration Polyethylene Glycol 17 gm 08/05/24 12:46 08/08/24 09:27 Polyethylene Glycol 3350 17 Gm Powd.Pack PO 17 gm QAM PRN Administration Constipation Potassium Chloride 10 meq 08/04/24 08:00 08/08/24 09:28 Potassium Chloride 10 Meq Er Tablet PO 10 meq DAILY@0800 DIAMOND Administration Thiamine HCl 300 mg 08/05/24 09:00 08/08/24 09:27 Thiamine Hcl 100 Mg Tablet PO 300 mg QAM DIAMOND Administration Trazodone HCl 50 mg 08/04/24 01:05 08/07/24 20:11 Trazodone Hcl 50 Mg Tablet PO 50 mg HS DIAMOND Administration Radiology Results: ITS Impressions Chest X-Ray 08/05/24 06:18 Impression: Discoid atelectasis or scarring left lung base, otherwise clear lungs. Foot X-Ray 08/06/24 13:36 IMPRESSION: 1. Mild polyarticular osteoarthritis. Labs Labs: Laboratory Results - last 24 hr 08/07/24 08/07/24 08/07/24 06:22 11:51 17:49 WBC 8.4 RBC 3.15 L Hgb 9.5 L Hct 29.2 L MCV 92.7 MCH 30.2 MCHC 32.5 RDW 17.3 H Plt Count 302 MPV 9.7 Immature Gran % (Auto) 0.4 Neut % (Auto) 69.2 Lymph % (Auto) 8.4 L [place] % (Auto) 21.1 H Eos % (Auto) 0.5 Baso % (Auto) 0.4 Lymph # (Auto) 0.71 L [place] # (Auto) 1.8 H Eos # (Auto) 0.0 Baso # (Auto) 0.0 Abs Immat Gran (auto) 0.03 Absolute Neuts (auto) 5.9 Absolute Nucleated RBC 0.000 Nucleated RBC % 0.0 Sodium Potassium Chloride Carbon Dioxide Anion Gap BUN Creatinine Estim Creat Clear Calc Estimated GFR Glucose POC Capillary Glucose 157 H 110 H Calcium Total Bilirubin AST ALT Alkaline Phosphatase Total Protein Albumin Lipase 08/08/24 08/08/24 08/08/24 00:15 05:32 06:53 WBC 6.3 RBC 3.20 L Hgb 9.7 L Hct 29.9 L MCV 93.4 MCH 30.3 MCHC 32.4 RDW 17.2 H Plt Count 385 H MPV 9.1 Immature Gran % (Auto) 0.3 Neut % (Auto) 64.9 Lymph % (Auto) 18.2 L [place] % (Auto) 14.4 H Eos % (Auto) 1.6 Baso % (Auto) 0.6 Lymph # (Auto) 1.15 [place] # (Auto) 0.9 H Eos # (Auto) 0.1 Baso # (Auto) 0.0 Abs Immat Gran (auto) 0.02 Absolute Neuts (auto) 4.1 Absolute Nucleated RBC 0.000 Nucleated RBC % 0.0 Sodium 134 L Potassium 3.9 Chloride 102 Carbon Dioxide 22 Anion Gap 10 BUN 7 L Creatinine 0.65 L Estim Creat Clear Calc 117 Estimated GFR > 60 Glucose 105 POC Capillary Glucose 140 H 96 Calcium 9.0 Total Bilirubin 0.5 AST 27 ALT 28 Alkaline Phosphatase 174 H Total Protein 7.0 Albumin 3.5 Lipase 528 H Quality VTE Prophylaxis VTE prophylaxis: pharmacologic ordered
[2024-08-08 11:35] LABS: Glucose Point of Care 125 mg/dl (65-105)
[2024-08-08 12:00] VITALS: BP 106/66; PULSE 101; PULSE 105; PULSE 91; RESP 18; TEMP 36.7; O2SAT 98
--- NOTE | 2024-08-08 15:37 | PCNFU ---
Nutrition Follow-Up Complete: Moderate protein calorie malnutrition related to inadequate energy intake and alcohol consumption as evidenced by poor po in take for greater than a month, -8% wt loss x 2 months and moderate subcutaneous fat loss (cheeks) and muscle wasting (shinto, clavicle). Diet order - Advanced to clear liquids. Today is day 5 combined NPO/CL Goal: Pt current nutrition is Clear liquids. 75-100% intakes Nutrition recommendation: If not able to advance diet tomorrow, recommend TPN or PPN Last recorded weight is 76.3 kg. Bowel Motility: +2 BMs 08/12 Labs Reviewed: Hgb 9.7, Hct 29.9, NA 134, BUN 7, Cre 0.65, Glu 125, Lip 528 (decreasing) Meds Noted: mag-ox,protonix, Kcl Skin: No skin issues Additional Notes: Spoke to provider Lizette king: NPO/CL day 5. She said he will likely advance diet tomorrow so will hold off until tomorrow for parenteral nutrition recommendations. Monitor for diet orders, intake, tolerance, wt, labs. Follow up in 3 days.
[2024-08-08 16:00] VITALS: PULSE 83; PULSE 86
[2024-08-08] MEDS: DEXTROSE 5%/0.9% SOD CHL 1,000 ML 100 ML IV CONT (16:55)
[2024-08-08 20:00] VITALS: BP 107/70; PULSE 91; PULSE 94; RESP 13; TEMP 36.6; O2SAT 99
[2024-08-08] MEDS: traZODone HCL 50 MG TABLET PO (21:16)
[2024-08-08 23:46] LABS: Glucose Point of Care 123 mg/dl (65-105)
[2024-08-09] VITALS (8 sets, daily range): BP systolic 108–127; BP diastolic 75–86; PULSE 81–101; RESP 14–18; TEMP 36.3–36.9; O2SAT 96–100
[2024-08-09] MEDS: metroNIDAZOLE 500 MG TABLET PO ×3 (05:23→21:06)
[2024-08-09] MEDS: chlordiazePOXIDE (*CRX) 10 MG CAPSULE PO ×3 (05:23→21:06)
[2024-08-09] MEDS: GABAPENTIN 300 MG CAPSULE PO ×3 (05:23→21:06)
[2024-08-09 05:33] LABS: Glucose Point of Care 109 mg/dl (65-105)
[2024-08-09 06:23] LABS: Basophils Absolute Auto 0.1 K/mm3 (0.0-0.1); Basophils Percent Auto 1.2 % (0.2-1.2); Eosinophils Absolute Auto 0.1 K/mm3 (0-0.3); Eosinophils Percent Auto 2.5 % (0-4.4); Hematocrit 30.5 % (42.0-52.0); Hemoglobin 9.7 g/dL (14.0-18.0); Immature Granulocyte Absolute 0.02 K/mm3 (0.00-0.031); Immature Granulocyte Percent A 0.4 % (0-0.5); Lymphocytes Absolute Auto 1.34 K/mm3 (0.9-3.2); Lymphocytes Percent Auto 26.2 % (18.3-44.2); Mean Corpuscular HGB Conc 31.8 g/dl (32-36); Mean Corpuscular Hemoglobin 30.3 pg (26-34); Mean Corpuscular Volume 95.3 fl (80-100); Mean Platelet Volume 9.3 fl (7.4-10.4); Monocytes Absolute Auto 0.7 K/mm3 (0.1-0.6); Monocytes Percent Auto 12.9 % (2.6-8.5); Neutrophils Absolute Auto 2.9 K/mm3 (1.3-6.7); Neutrophils Percent Auto 56.8 % (45.5-73.1); Platelet Count Result 474 k/mm3 (150-375); Red Cell Distribution Width 17.5 % (11.5-14.5); White Blood Count 5.1 K/mm3 (4.5-10.0)
[2024-08-09 06:29] LABS: Alanine Aminotransferase 22 U/L (6-50); Albumin Level 3.4 g/dL (3.5-5.1); Alkaline Phosphatase 176 U/L (38-126); Anion Gap 12 mmol/L (4-12); Aspartate Amino Transferase 14 U/L (17-59); Bilirubin,Total 0.2 mg/dL (0.2-1.3); Blood Urea Nitrogen 4 mg/dL (9-20); Calcium 8.9 mg/dL (8.4-10.2); Carbon Dioxide 21 mmol/L (22-30); Chloride 101 mmol/L (98-107); Estimated CRCL calculation 123 ml/min; Estimated Glomerular Filt Rate > 60; Glucose 99 mg/dL (65-110); Lipase 294 U/L (23-300); Potassium 3.6 mmol/L (3.4-5.0); Sodium 134 mmol/L (137-145)
[2024-08-09] MEDS: DEXTROSE 5%/0.9% SOD CHL 1,000 ML 100 ML IV CONT ×2 (10:00→20:11)
[2024-08-09] MEDS: CEFEPIME 2 GM/NS 50 ML 2 GM/50 ML BAG IVPB ×2 (10:02→20:05)
[2024-08-09] MEDS: NICOTINE (*PBKC) 14 MG PATCH 1 PATCH TRANSDERM (10:03)
[2024-08-09] MEDS: LIPASE/AMYLASE/PROTEASE 12,000 UNITS CAP 1 CAP PO ×3 (10:04→16:45)
[2024-08-09] MEDS: POTASSIUM CHLORIDE 10 MEQ ER TABLET PO (10:04)
[2024-08-09] MEDS: ASCORBIC ACID 500 MG TABLET PO (10:04)
[2024-08-09] MEDS: DULoxetine HCL 30 MG CAPSULE.DR PO ×2 (10:04→16:45)
[2024-08-09] MEDS: carBAMazepine 200 MG TABLET PO ×2 (10:04→20:05)
[2024-08-09] MEDS: amLODIPine BESYLATE 10 MG TABLET PO (10:04)
[2024-08-09] MEDS: LOSARTAN POTASSIUM 25 MG TABLET PO (10:05)
[2024-08-09] MEDS: THIAMINE HCL 100 MG TABLET 300 MG PO (10:05)
[2024-08-09] MEDS: FOLIC ACID 1 MG TABLET BY MOUTH (10:05)
[2024-08-09] MEDS: MAGNESIUM OXIDE 400 MG TABLET PO (10:05)
[2024-08-09] MEDS: FENOFIBRATE 160 MG TABLET PO (10:05)
[2024-08-09] MEDS: PANTOPRAZOLE 40 MG TABLET BY MOUTH (10:05)
--- NOTE | 2024-08-09 10:08 | P.CONGI_ITS ---
<Statement entered by Shashank Madsen MD - 08/09/24 17:30> I, Shashank Madsen MD, have provided a substantive portion of the care of this patient and discussed the patient with my Nurse Practitioner. I have reviewed any new relevant radiographic and laboratory results including medications. I agree with her documentation as noted below.?I personally performed the medical decision making and much of the history and exam for this encounter. briefly, he is an alcoholic with chronic necrotizing pancreatitis who had multiple ercp with stenting at [facility] by Dr Loya here again with more abdominal pain, CT scan findings with Acute on chronic necrotic pancreatitis with worsened acute necrotic collections. Stricture of the common bile duct secondary to pancreatitis with mild intrahepatic biliary duct dilatation and gallbladder distention. He is tolerating full liquid diet and is comfortable, plan is to transfer to his GI physician at [facility]. Continue pain meds as needed, alcohol cessation. Assessment and Plan Assessment and plan (1) Dilation of biliary tract: Code(s): K83.8 - Other specified diseases of biliary tract Status: Acute (2) Necrotizing pancreatitis: Code(s): K85.91 - Acute pancreatitis with uninfected necrosis, unspecified Status: Acute (3) Acute on chronic pancreatitis: Code(s): K85.90 - Acute pancreatitis without necrosis or infection, unspecified; K86.1 - Other chronic pancreatitis Status: Acute (4) Generalized abdominal pain: Code(s): R10.84 - Generalized abdominal pain Status: Acute (5) Elevated alkaline phosphatase level: Code(s): R74.8 - Abnormal levels of other serum enzymes Status: Acute (6) Anemia of chronic disease: Code(s): D63.8 - Anemia in other chronic diseases classified elsewhere Status: Acute Plan 1. Acute on chronic pancreatitis/ETOH abuse/chronic abdominal pain/AOCD/elevated Alk Phos: Patient with a history of EtOH abuse and was previously drinking 12 drinks per day. His primary GI doctor is Dr. Loya at [place]. He has an extensive history and has had multiple ERCPs since 2018 for chronic pancreatitis and history of severe necrotizing pancreatitis , multiple stenting, and multiple sphincterotomies. Patient states that during his last visit with Dr. Loya he was told that his next course of action was likely more invasive surgery but patient was unable to say what surgery was recommended. He states that the last time he drank was MondayJuly 29. But had been on a drinking spree before that because he is under lot of stress and getting a divorce . Patient with multiple recent [facility] admission for acute on chronic pancreatitis. He was admitted for 3 days and then returned the next day (August 03) from [facility] with worsening abdominal pain. Patient has been unable to advance his diet this admission secondary to persistent nausea. CT 07/31/2024 showed the pancreas is enlarged and edematous with loss of fatty infiltration. Significant surrounding inflammatory change is present. Redemonstration of multiple punctate calcifications within the head of the pancreas consistent with chronic pancreatitis. Redemonstration of atrophy of the pancreatic tail. The main pancreatic duct is increased in size from prior measuring 10.5 mm, compared to the 8 mm on the prior exam, performed approximately 1 week earlier. MRCP today shows acute on chronic necrotic pancreatitis with worsened acute necrotic collections and stricture of the common bile duct secondary to pancreatitis with mild intrahepatic biliary duct dilatation and gallbladder distention. On admission August 03 lipase was 1662 which has trended down to 294. Labs today showed WBCs 5, HGB 10, HCT 31, platelets 474. LFTs are normal except for elevated alkaline phosphatase at 176. * Again our recommendation it to transfer to [place] as Dr. Loay is familiar with the patient and his extensive medical history and procedural history and frequent hospital admissions without improvement. Patient requires a higher level of care given that he is at high risk for complications * continue supportive care with pain management and antiemetics * continue CIWA precautions Thank you very much for allowing me to share in the care of this very complicated patient. This report may have been done utilizing a voice recognition system. Attempts have been made to correct errors. However, there may be uncorrected grammatical, spelling, and recognition errors present. GI Consult Note Consult date/time: 08/09/24 10:08 Reason for consult: Acute on chronic pancreatitis HPI: This is a 58 year old male with PMSH of HTN, chronic pancreatitis secondary to ETOH, Hx of severe necrotizing pancreatitis, ETOH abuse, memory loss, GERD, Hx of PE, PUD with Hx of GI bleed and appendectomy. He presented to the ER with complaints of abdominal pain. GI was consulted for acute on chronic pancreatitis. Patient with history of multiple recent hospitalizations for chronic pancreatitis and ETOH abuse. He was discharged August 02 back to [facility] and return the next day for worsening abdominal pain and has been here since the . He was hospitalized at the end of May for the same reason and was found to have necrotizing pancreatitis on MRCP at which time a transfer to to his regular GI provider was recommended given his extensive history. Patient states that between hospitalization he will feel fine but then his symptoms return. While on a liquid diet his nausea and abdominal pain improves but when attempts are made to advance his diet the symptoms return. Patient admits to chronic abdominal pain states that the pain has been okay for the past 2 days. Last bowel movement was today which he states was loose but he denies any hematochezia or melena. Currently denies any vomiting, bloating, odynophagia, dysphagia, reflux, regurgitation, appetite loss, unexplained weight loss, or constipation. Patient with a history of 12 drinks nightly but denies any alcohol use prior to admission, 1 pack per day smoker and uses marijuana regularly. Family history negative for CRC or IBD. ENDOSCOPY: ERCP: 09/21/[address] Loya for benign CBD stricture, pancreatic duct stricture and chronic pancreatitis Findings: duodenal deformity due to pancreatitis Four partially occluded stents from the biliary tree were seen in the major papilla. Removed. Prior biliary sphincterotomy appeared open A single mild biliary stricture was found in the lower 3rd of the main bile duct. The stricture was fibrotic. Improved. Dilated to 10 mm, 510 Slovak stents placed Choledocholithiasis found. Complete removal was accomplished by balloon extraction 4 month stent exchange recommended ERCP: 06/02/[address] Loya for benign CBD stricture, pancreatic duct stricture and chronic pancreatitis Findings: 2 stents from the common bile duct were seen in the major papilla. These were removed. Primary biliary sphincterotomy appeared open Fibrotic distal bile duct stricture was found in the distal common bile duct with upstream dilation of the entire bile duct. Brushed for cytology. Dilated to 10 mm, 410 Slovak stents placed Cells for cytology obtained with brushing of the common bile duct stricture MRCP in 2 months Repeat ERCP in 4 months for stent change Bx Results: 06/02/2023 Distal common bile duct stricture, brushing: Negative for malignancy ERCP: 01/05/[address] Loya for benign CBD stricture, pancreatic duct stricture and chronic pancreatitis Findings: Three stents were seen in the major papilla, removed Prior biliary and pancreatic sphincterotomy appeared open A single moderate biliary stricture was found in the lower 3rd of the main bile duct. The stricture was fibrotic. Improved not resolved. Two hundred ten Slovak stents were placed Chronic pancreatitis. Resolved pancreatic duct stricture. Migratory pancreatic stent placed The biliary tree was swept and sludge was found 3 month repeat recommended for stent exchange ERCP: 11/03/[address] Loya for benign CBD stricture, pancreatic duct stricture and chronic pancreatitis Findings: 3 stents were seen in the major papilla, removed Prior biliary and pancreatic sphincterotomy appeared open Prior pancreatic sphincterotomy appeared open A single moderate biliary stricture was found in the lower 3rd of the main bile duct. The stricture was fibrotic and improving. Two stents were replaced Chronic pancreatitis with resolving stricture. Stent placed The biliary tree was swept and sludge was found 2 month repeat was recommended for stent exchange ERCP: 09/08/[address] Loya for benign CBD stricture, pancreatic duct stricture and chronic pancreatitis Findings: 3 stents were seen in the major papilla. Removed Prior biliary and pancreatic sphincterotomy appeared open A single moderate biliary stricture was found in the lower 3rd of the main bile duct. The stricture was fibrotic, due to chronic pancreatitis, slowly improving. Two stents replaced A pancreatic duct stricture was found in setting of chronic pancreatitis, slowly improving. Stent replaced. The biliary tree was swept and sludge was found two-month repeat recommended for stent exchange ERCP: 07/06/[address] Loya for benign CBD stricture, pancreatic duct stricture and chronic pancreatitis Findings: Prior biliary and pancreatic sphincterotomy appeared open Prior pancreatic sphincterotomy appeared open Partially occluded prior stent removed Chronic pancreatitis, slowly improving stricture, stent replaced Improving distal biliary stricture. Two plastic stents replaced Biliary tree was swept and sludge was removed Repeat ERCP 2-3 months for stent exchange COLONOSCOPY: 02/09/[address] Osullivan for CRC screening Findings: there was 3 5 mm to 12 mm polyps observed in the ascending colon. The 2 polyps removed using cold snare polypectomies. Largest polyp removed using hot snare polypectomy. The polyps were completely excised. One resolution clip was placed to prevent bleeding There were 3 4 mm to 6 mm polyps observed in the transverse colon. Multiple cold snare polypectomies were performed. The polyps were completely excised A few small size internal hemorrhoids were seen in the rectum. The hemorrhoids were not actively bleeding LABS AND STOOL STUDIES: Labs 08/09/2024: Sodium 134, potassium 3.6, BUN 4, creatinine 0.63, GFR > 60 WBC is 5, HGB 10, HCT 31, MCV 95, platelets 474 Total bilirubin 0.2, AST 14, ALT 22, alkaline phosphatase 176, albumin 3.4, lipase 294 ( lipase on admission 1662) Labs 08/02/2024: Iron 18, TIBC 174, iron saturation 10% IMAGING: MRCP 08/09/2024: IMPRESSION: 1. 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 2. Stricture of the common bile duct secondary to pancreatitis with mild intrahepatic biliary duct dilatation and gallbladder distention. CT abd/pelvis w/contrast 07/31/2024: IMPRESSION: Acute on chronic pancreatitis, as detailed above. HIDA scan 06/24/2024 FINDINGS: There is normal clearance of radiotracer from the blood pool. There is homogeneous tracer uptake by the liver. Activity progresses to the common bile duct by 12 minutes with activity seen in the duodenum by 29 minutes with progressive accumulation and the bowels. The gallbladder is not visualized within the initial 49 minutes of imaging but begins to fill with activity 11 minutes following morphine injection. IMPRESSION: 1. Delayed accumulation of activity in the gallbladder likely due to the dilated state of the gallbladder evident on prior imaging both accumulation of activity in the gallbladder following morphine administration which argues against acute cholecystitis. MRCP 06/24/2024 FINDINGS: ABDOMEN MRI: Size is normal. Linear discoid atelectasis/scarring in the bilateral lower lobes. No pericardial or pleural effusion. Liver, spleen and bilateral adrenal glands are normal. Gallbladder remains mildly dilated to 5 cm maximal diameter. There is however no abnormal wall thickening or pericholecystic fluid or inflammatory stranding to suggest acute cholecystitis. There is prominent peripancreatic edema about the body and tail of the pancreas which has progressed since the prior study consistent with progression of acute interstitial pancreatitis. There swelling and more prominent T2 hyperintense edema at the tail of the pancreas which surrounds a 2.6 x 1.1 cm dumbbell shaped nonenhancing region consistent with necrosis. There are low signal intensity dystrophic calcification at the head of the pancreas which are better appreciated on the prior CT and are consistent with sequela of chronic pancreatitis. There is prominent dilation of the main pancreatic duct in the head and body the pancreas bladder measuring up to 9 mm in maximal diameter. There are also multiple mildly dilated pancreatic ductal side branches. There is a 1.8 x 1.5 x 0.8 cm loculated acute peripancreatic fluid collection situated between the tail of the pancreas and the bifurcation of the celiac axis. Bilateral adrenal glands and kidneys are normal aside from increasing bilateral pararenal stranding likely related to the acute pancreatitis. Visualized portions of bowels are unremarkable with no obstruction. No pathologically enlarged abdominal or upper pelvic lymphadenopathy. Mild lumbar dextrocurvature with moderate spondylosis. T1 hyperintense and fat saturating T9 hemangioma. Chronic mild likely physiologic anterior wedging at T11 and T12. Fibrofatty degenerative endplate changes at a few levels in the lumbar spine most prominent at T12-L1. ABDOMEN MRCP: No intrahepatic biliary ductal dilation. The common hepatic duct is dilated to 8 mm in maximal diameter. There is a low-lying confluence of the common hepatic and cystic ducts which occurs near the ampulla. The short common bile duct measures approximately 5 mm at the confluence of the common hepatic and cystic ducts and tapers distally. There is a 3-4 mm low signal intensity likely gallstone in the common bile duct near the ampulla best appreciated on the axial and sagittal T2-weighted images. IMPRESSION: 1. Interval progression of acute on chronic, now necrotic pancreatitis with 2.6 x 1.1 cm region of necrosis at the tail the pancreas and 1.8 x 1.5 x 0.8 cm acute peripancreatic fluid collection. 2. Dilation the gallbladder and mild dilation the common hepatic duct which could be related to apparent 3-4 mm low signal intensity stone at the distal common bile duct. No intrahepatic biliary ductal dilation and no gallbladder wall thickening or surrounding inflammatory changes to suggest acute cholecystitis. Review of Systems 2 Constitutional: Constitutional: Reports as per HPI ENT: Reports as per HPI Cardiovascular: Cardiovascular: Reports as per HPI, Denies chest pain, Denies leg edema, Denies lightheadedness, Denies palpitations and Denies dyspnea Respiratory: Respiratory: Denies cough and Denies dyspnea Gastrointestinal: Gastrointestinal: Reports as per HPI Musculoskeletal: Musculoskeletal: Reports as per HPI, Denies arthralgias and Denies joint swelling Integumentary/Breasts: Skin/Breast: Reports as per HPI Psychiatric: Psychiatric: Reports as per HPI Endocrine: Endocrine: Reports no additional endocrine complaints Hematologic/Lymphatic: Hematologic/Lymphatic: Reports no additional hematologic/lymphatic complaints [facility] Past Medical History Medical History Peptic ulcer Gastroesophageal reflux disease Tobacco dependence Necrotizing pancreatitis Elevated PSA Memory loss Gastritis and duodenitis Essential hypertension Alcoholism Fracture of vertebra due to osteoporosis with routine healing Generalized osteoarthritis of multiple sites Inflammatory arthritis (08/2019) Angioedema (08/2019) Acute pulmonary embolism (08/2019) Pancreatitis Hypercholesteremia Surgical History Surgical History History of appendectomy Family History Family History Mother Hypertension Sibling Patient's brother is in good health Father Family history of pancreatic cancer Social History Social History Social History: Surrogate medical decision maker: Doris Norman, ex-. Code status: Full code. Smoking packs per day: 1 Smoking cigarettes per day: 20.0 Years smoked: 35 Smoking pack-years: 35.00 Smoking status: Current every day smoker Tobacco type: cigarettes Second hand tobacco smoke exposure: No Alcohol intake: current Drinks per week: 100 Alcohol use details: SHOT Substance use: current Substance use type: marijuana Other substance usage details: MEDICAL CARD-DAILY FOR BACK PAIN Last use: Monday Do You Feel Safe in your Home?: Yes Lack of Transportation: No Lack of Food: Never True Current Housing: I Do Not Have Housing Concerned About Future Housing: YES Difficulty Paying Gas/Electric Bills: No Difficulty Paying for Meds: No Currently Unemployed: No Education: High School Diploma/GED Difficulty w/ Childcare or Family Care: No Living arrangements: with family Occupation/Education: retired Spiritual care concerns: No Meds Home Medications and Allergies Home Medications ?Medication ?Instructions ?Recorded ?Confirmed ?Type xewmhbza-bjki-artpo acid 400 1 tablet PO DAILY 02/03/21 08/03/24 History mcg-lycopene 600 mcg-ginkgo 120 mg tablet potassium gluconate 595 mg (99 mg) 99 mg PO DAILY 04/25/23 08/03/24 History tablet losartan 25 mg tablet 25 mg PO DAILY 06/28/23 08/03/24 History jtyqlu-qyhgbajm-tbuvkxl 1 cap PO TID #90 caps 07/13/23 08/03/24 Rx 12,000-38,000-60,000 unit capsule,delayed rel (Creon) fenofibrate 160 mg tablet 160 mg PO DAILY #90 tabs 01/23/24 08/03/24 Rx folic acid 1 mg tablet See Rx Instructions .Route 01/23/24 08/03/24 Rx .COMPLEX #90 tabs pantoprazole 40 mg tablet,delayed See Rx Instructions .Route 01/23/24 08/03/24 Rx release .COMPLEX #90 tabs meloxicam 7.5 mg tablet 7.5 mg PO BID PRN joint pain #60 04/02/24 08/03/24 Rx tabs gabapentin 300 mg capsule 300 mg PO Q8H #270 caps 05/01/24 08/03/24 Rx amlodipine 10 mg tablet 10 mg PO DAILY #90 tabs 06/17/24 08/03/24 Rx ascorbic acid (vitamin C) 500 mg 500 mg PO DAILY 08/01/24 08/03/24 History chewable tablet (Acerola C) biotin 5 mg capsule 5 mg PO DAILY 08/01/24 08/03/24 History carbamazepine 200 mg tablet 200 mg PO Q12H 08/01/24 08/03/24 History duloxetine 30 mg capsule,delayed 30 mg PO BID 08/01/24 08/03/24 History release (Cymbalta) magnesium 250 mg tablet 500 mg PO DAILY 08/01/24 08/03/24 History tadalafil 20 mg tablet 5 mg PO DAILY 08/01/24 08/03/24 History tizanidine 4 mg tablet 4 mg PO HS muscle spasticity 08/01/24 08/03/24 History trazodone 50 mg tablet 50 mg PO HS 08/03/24 08/03/24 History Allergies Allergy/AdvReac Type Severity Reaction Status Date / Time amoxicillin Allergy Intermediate rash Verified 08/09/24 09:07 Penicillins Allergy Intermediate Pruritic Verified 08/09/24 09:07 rash Vital Signs Vital Signs - 24 hr 08/08/24 12:00 08/08/24 12:00 08/08/24 12:00 Temperature 98.1 F Pulse Rate 91 101 H Pulse Rate [Apical Monitor] 105 H Respiratory Rate 18 Blood Pressure 106/66 Pulse Oximetry 98 Oxygen Delivery 08/08/24 16:00 08/08/24 16:00 08/08/24 20:00 Temperature 97.9 F Pulse Rate 86 94 Pulse Rate [Apical Monitor] 83 Respiratory Rate 13 Blood Pressure 107/70 Pulse Oximetry 99 Oxygen Delivery 08/08/24 20:00 08/08/24 20:00 08/09/24 00:00 Temperature 97.4 F L Pulse Rate 91 82 Pulse Rate [Apical Monitor] Respiratory Rate 16 Blood Pressure 113/76 Pulse Oximetry 99 Oxygen Delivery Room Air 08/09/24 00:00 08/09/24 04:00 08/09/24 04:00 Temperature 98.0 F Pulse Rate 83 87 81 Pulse Rate [Apical Monitor] Respiratory Rate 14 Blood Pressure 124/80 Pulse Oximetry 100 Oxygen Delivery 08/09/24 08:00 08/09/24 08:00 Temperature 97.5 F L Pulse Rate 86 Pulse Rate [Apical Monitor] 83 Respiratory Rate 18 Blood Pressure 127/86 127/86 Pulse Oximetry 99 Oxygen Delivery Exam 2 Const: General: cooperative, healthy appearing, comfortable, no acute distress and well developed Orientation/consciousness: oriented to person, oriented to place, oriented to time and patient oriented x3 Other: argumentative HENMT: Head: normal to inspection, normocephalic and atraumatic Mouth: Yes Normal oral and palatal mucosa present and Yes moist mucous membranes Eyes: General: appearance normal, both eyes and all related structures C onjunctivae: conjunctivae normal Sclera: sclerae normal Pupils: Equal, round and reactive pupils present Neck: Neck: normal visual inspection Chest: Chest palpation & inspection: normal inspection of the chest Resp: Effort & Inspection: normal respiratory effort and able to speak in complete sentences Auscultation: clear to auscultation bilaterally Cardio: Jugular venous distension: no JVD Rate: regular rate Rhythm: r egular rhythm Heart sounds: S1 normal heart sound present and S2 normal heart sound present GI: Inspection: non-distended GI Palp: Yes Soft to palpation, Yes Tenderness to palpation present (GI) (with palpation), No Guarding due to palpation present (GI) and Yes No hepatosplenomegaly present Auscultation: n ormal bowel sounds Rectal Exam: deferred Skin: General skin exam: normal color and no rashes or lesions noted Neuro: General: oriented to person, oriented to place, oriented to time and patient oriented x3 Cranial nerves: Yes Equal, round and reactive pupils present Speech: normal speech Extrem: General: normal to inspection and no clubbing, cyanosis or edema Psych: Appearance: grossly normal and well kempt Affect: normal affect Results Labs 08/09/24 05:43 08/09/24 05:43 Labs: Short CBC 08/09/24 Range/Units 05:43 WBC 5.1 (4.5-10.0) K/mm3 Hgb 9.7 L (14.0-18.0) g/dL Hct 30.5 L (42.0-52.0) % Plt Count 474 H (150-375) k/mm3 BMP 08/09/24 05:43 Sodium 134 L Potassium 3.6 Chloride 101 Carbon Dioxide 21 L BUN 4 L Creatinine 0.63 L Glucose 99 Calcium 8.9 Liver Function 08/09/24 Range/Units 05:43 Total Bilirubin 0.2 (0.2-1.3) mg/dL AST 14 L (17-59) U/L ALT 22 (6-50) U/L Alkaline Phosphatase 176 H (38-126) U/L Albumin 3.4 L (3.5-5.1) g/dL
[2024-08-09] MEDS: ENOXAPARIN 40 MG/0.4 ML SYRINGE SUB-Q (10:12)
[2024-08-09] MEDS: chlordiazePOXIDE (*CRX) 25 MG CAPSULE PO ×2 (10:12→16:49)
[2024-08-09 12:36] LABS: Glucose Point of Care 128 mg/dl (65-105)
[2024-08-09 15:04] LABS: Glucose Point of Care 93 mg/dl (65-105)
[2024-08-09 15:04] LABS: Glucose Point of Care 88 mg/dl (65-105)
--- NOTE | 2024-08-09 16:53 | P.PNIM_ITS ---
Progress Note: A&P Assessment and Plan (1) Acute on chronic pancreatitis: Code(s): K85.90 - Acute pancreatitis without necrosis or infection, unspecified; K86.1 - Other chronic pancreatitis Status: Acute Assessment and Plan: ## acute on chronic exacerbation --> most likely due to alcoholism. -continue IV hydration -Cefepime 2 gram IVPB q 12. --> IV and po analgesia ordered --> trend lipase --1104-->470-->592-->678 advance diet as tolerated 08/08/24: * Continue to trend Lipase, today is 528. * Unable to advance diet today due to pt's persistent nausea. 08/09: MRCP1. 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 2. Stricture of the common bile duct secondary to pancreatitis with mild intrahepatic biliary duct dilatation and gallbladder distention. Will call Dr. Loya at [place] to transfer. As per patient the patient had multiple stents that was placed by Dr. Loya and was removed. (2) Hypertension: Qualifiers: Hypertension type: primary hypertension Qualified Code(s): I10 - Essential (primary) hypertension Code(s): I10 - Essential (primary) hypertension Status: Acute Assessment and Plan: -->Continue blood pressure medications monitor vital signs 08/08/24: * Stable, continue to monitor. (3) Alcohol abuse: Code(s): F10.10 - Alcohol abuse, uncomplicated Status: Acute Assessment and Plan: ##chronic alcoholic. -->Librium scheduled -->CIWA protocol -->Thiamine as tolerated -Ativan prn severe agitated -librium 10 mg q8 08/08/24: * CIWA today is 6 at the highest. (4) Tobacco dependence: Code(s): F17.200 - Nicotine dependence, unspecified, uncomplicated Status: Acute Assessment and Plan: ##cigarette smoker --Order nicotine patch -- discussed smoking cessation (5) Open wound of left great toe with damage to nail: Code(s): S91.A - Unspecified open wound of left great toe with damage to nail, initial encounter Status: Acute Assessment and Plan: ##unknown cause --> Wound nurse consulted- patient has dry old blood blisters on the end of several toes on both feet. All areas are dry and easily peeled off. Skin underneath is 100% closed, healed, and faye. No wound care needed at this time . - WBC- 8.4. 08/08/24: * Pt was consulted on by Wound care and no treatment recommended at this time as the appearance of the toes were blood blisters only. Skin underneath was clear. (6) Nausea and vomiting: Qualifiers: Vomiting type: unspecified Qualified Code(s): R11.2 - Nausea with vomiting, unspecified Code(s): R11.2 - Nausea with vomiting, unspecified Status: Inactive Assessment and Plan: * Ondansetron 4 mg IVP q 4 PRN. * Eat slowly as tolerated. * D5NS @ 100 ml/hr. 08/08/24: * Continue liquid diet at this time as pt is continually nauseated and we are unable to progress diet at this time. (7) Constipation: Code(s): K59.00 - Constipation, unspecified Status: Acute Assessment and Plan: * Miralax 17 gram PO daily PRN. * Add Docusate 100 mg PO q12 PRN. (8) Headache: Code(s): R51.9 - Headache, unspecified Status: Acute Assessment and Plan: * Hydrocodone/Acetaminophen 5-325 mg 1 tab PO q 4 PRN. Subjective Date/time seen: 08/09/24 16:53 Interval history: Order MRCP which shows Acute on chronic necrotic pancreatitis with worsened acute necrotic collections.Will call Dr. Loya at [place] to transfer. As per patient the patient had multiple stents was placed by Dr. Loya and was removed. Review of Systems Review of Systems: Severe abdominal pains bilateral toe discomfort. All systems reviewed & are unremarkable except as noted in HPI and below Exam Narrative: General: Chronically ill Respiratory: Lungs are clear to auscultation bilaterally. Cardiovascular: Regular rate and rhythm with S1-S2. Gastrointestinal: TTP over RUQ area Skin: Warm and dry. Extremities: No cyanosis, clubbing, or edema. Radial and pedal pulses intact. Neurological: Alert. Cranial nerves 2-12 are grossly intact. No tremors. No gross focal deficits to casual conversation. Psychiatric: Somnolent Const: General: cooperative, no acute distress, anxious, uncomfortable and average body habitus Nutritional Appearance: average body habitus Orientation/consciousness: patient oriented x3 HENMT: Head: normal to inspection and normocephalic Eyes: General: appearance normal, both eyes and all related structures Neck: Neck: normal visual inspection, full ROM, no lymphadenopathy and supple Chest: Chest palpation & inspection: normal inspection of the chest Resp: Effort & Inspection: normal respiratory effort Auscultation: clear to auscultation bilaterally Cardio: Jugular venous distension: no JVD Rate: regular rate Rhythm: regular rhythm Heart sounds: S1 normal heart sound present and S2 normal heart sound present Peripheral pulses: Peripheral pulses 2+ throughout Other: Telemetry- SR 99 GI: Inspection: normal to inspection Auscultation: normal bowel sounds Skin: General skin exam: no rashes or lesions noted and wounds noted Wounds: wounds noted left plantar 5th toe size (Circumferential distal toe including nail and pad, black and dry), malodorous and with surrounding erythema, left plantar 4th toe size (entire base of toe deep purple and tender. ) and malodorous, left plantar 2nd toe size (blister like area on the dorsal aspect of toe, tender to touch) and with surrounding erythema, right posterior 2nd toe size (blister that forms at the distal pad of toe and extends into the pad of foot. ) and with surrounding erythema Other: Patient has dry old blood blisters on the end of several toes on both feet. Healthy closed tissue underneath. Neuro: General: patient oriented x3 and moves all extremities Speech: normal speech Extrem: General: no pedal edema Psych: Appearance: grossly normal Mental Status: mental status grossly normal Speech and movement: Normal speech and movement present Affect: Anxious affect present Attitude: cooperative Thought process: Normal thought process present Insight: Good insight present (Psych) Judgement: Good judgement present (Psych) Objective Data Vital Signs Vital Signs: Vital Signs - 24 hr 08/08/24 20:00 08/08/24 20:00 08/08/24 20:00 Temperature 97.9 F Pulse Rate 94 91 Pulse Rate [Apical Monitor] Respiratory Rate 13 Blood Pressure 107/70 Pulse Oximetry 99 Oxygen Delivery Room Air 08/09/24 00:00 08/09/24 00:00 08/09/24 04:00 Temperature 97.4 F L 98.0 F Pulse Rate 82 83 87 Pulse Rate [Apical Monitor] Respiratory Rate 16 14 Blood Pressure 113/76 124/80 Pulse Oximetry 99 100 Oxygen Delivery 08/09/24 04:00 08/09/24 08:00 08/09/24 08:00 Temperature 97.5 F L Pulse Rate 81 86 Pulse Rate [Apical Monitor] 83 Respiratory Rate 18 Blood Pressure 127/86 127/86 Pulse Oximetry 99 Oxygen Delivery 08/09/24 08:00 08/09/24 08:00 08/09/24 12:00 Temperature 97.8 F Pulse Rate 83 81 Pulse Rate [Apical Monitor] Respiratory Rate 18 Blood Pressure 115/78 Pulse Oximetry 99 Oxygen Delivery Room Air 08/09/24 12:00 08/09/24 16:00 Temperature Pulse Rate 101 H 81 Pulse Rate [Apical Monitor] Respiratory Rate Blood Pressure Pulse Oximetry Oxygen Delivery Intake/Output Intake/Output: Intake & Output 08/06/24 08/07/24 08/08/24 08/09/24 23:59 23:59 23:59 23:59 Intake Total 2100 3320 2420 3250 Output Total 400 350 Balance 1700 2970 2420 3250 Meds/Results Medications: Active Medications Generic Name Dose Route Start Last Admin Trade Name Freq PRN Reason Stop Dose Admin Hydrocodone Bitart/Acetaminophen 1 tab 08/04/24 13:28 08/08/24 06:45 Hydrocodone/Acetaminophen (*Crx) 5-325 Mg Tablet PO 1 tab Q4H PRN Administration Pain Rated 4-6 Amlodipine Besylate 10 mg 08/04/24 09:00 08/09/24 10:04 Amlodipine Besylate 10 Mg Tablet PO 10 mg DAILY DIAMOND Administration Lipase/Protease/Amylase 1 cap 08/04/24 08:00 08/09/24 16:45 Lipase/Amylase/Protease 12,000 Units Cap PO 1 cap TIDWM DIAMOND Administration Ascorbic Acid 500 mg 08/04/24 09:00 08/09/24 10:04 Ascorbic Acid 500 Mg Tablet PO 500 mg DAILY DIAMOND Administration Carbamazepine 200 mg 08/03/24 23:10 08/09/24 10:04 Carbamazepine 200 Mg Tablet PO 200 mg Q12HR DIAMOND Administration Chlordiazepoxide HCl 10 mg 08/04/24 13:30 08/09/24 13:52 Chlordiazepoxide (*Crx) 10 Mg Capsule PO 10 mg Q8HR DIAMOND Administration Chlordiazepoxide HCl 25 mg 08/05/24 03:30 08/09/24 16:49 Chlordiazepoxide (*Crx) 25 Mg Capsule PO 25 mg Q6H PRN Administration Withdrawal Docusate Sodium 100 mg 08/07/24 11:10 08/08/24 09:27 Docusate Sodium 100 Mg Capsule PO 100 mg Q12H PRN Administration Constipation Duloxetine HCl 30 mg 08/04/24 09:00 08/09/24 16:45 Duloxetine Hcl 30 Mg Capsule.Dr PO 30 mg BID DIAMOND Administration Enoxaparin Sodium 40 mg 08/04/24 09:00 08/09/24 10:12 Enoxaparin 40 Mg/0.4 Ml Syringe SUB-Q 40 mg DAILY DIAMOND Administration Fenofibrate 160 mg 08/04/24 09:00 08/09/24 10:05 Fenofibrate 160 Mg Tablet PO 160 mg DAILY DIAMOND Administration Folic Acid 1 mg 08/04/24 09:00 08/09/24 10:05 Folic Acid 1 Mg Tablet BY MOUTH 1 mg DAILY DIAMOND Administration Gabapentin 300 mg 08/03/24 23:10 08/09/24 13:52 Gabapentin 300 Mg Capsule PO 300 mg Q8HR DIAMOND Administration Hydromorphone HCl 0.5 mg 08/04/24 03:34 Hydromorphone Hcl Inj (*Crx) 1 Mg/Ml Syr IV PUSH Q3H PRN Pain Rated 4-6 Hydromorphone HCl 1 mg 08/04/24 03:34 08/06/24 02:45 Hydromorphone Hcl Inj (*Crx) 1 Mg/Ml Syr IV PUSH 1 mg Q3H PRN Administration Pain Rated 7-10 Dextrose/Sodium Chloride 1,000 mls @ 100 mls/hr 08/05/24 01:55 08/09/24 10:00 Dextrose 5% Sodium Chloride 0.9% IV CONT 100 mls/hr .Q10H DIAMOND Administration Cefepime HCl 2 gm in 50 mls @ 100 mls/hr 08/06/24 13:00 08/09/24 10:02 Maxipime 2 Gm/Ns 50 Ml IVPB 100 mls/hr Q12HR DIAMOND Administration Lorazepam 2 mg 08/04/24 20:52 08/07/24 13:06 Lorazepam Inj (*Crx) 2 Mg/Ml Vial IV PUSH 2 mg Q2H PRN Administration Alcohol Withdrawal Losartan Potassium 25 mg 08/04/24 09:00 08/09/24 10:05 Losartan Potassium 25 Mg Tablet PO 25 mg DAILY DIAMOND Administration Magnesium Oxide 400 mg 08/04/24 09:00 08/09/24 10:05 Magnesium Oxide 400 Mg Tablet PO 400 mg DAILY DIAMOND Administration Meloxicam 7.5 mg 08/03/24 23:10 08/08/24 09:27 Meloxicam 7.5 Mg Tablet PO 7.5 mg BID PRN Administration joint pain Metoclopramide HCl 10 mg 08/05/24 12:50 Metoclopramide Hcl Inj 10 Mg/2 Ml Vial IV PUSH Q6HR PRN nausea Metronidazole 500 mg 08/06/24 14:00 08/09/24 13:52 Metronidazole 500 Mg Tablet PO 500 mg Q8HR DIAMOND Administration Miscellaneous Information 1 each 08/05/24 00:01 Reglan And Zofran Both Active Prn For N/V, Please Clarify When To Give Each XX 09/04/24 00:00 CLARIFY DIAMOND Nicotine 1 patch 08/04/24 09:00 08/09/24 10:03 Nicotine (*Pbkc) 14 Mg Patch TRANSDERM 1 patch DAILY DIAMOND Administration Nicotine Polacrilex 4 mg 08/06/24 23:51 08/07/24 05:53 Nicotine (*Pbkc) 4 Mg Gum PO 4 mg PRN PRN Administration Nicotine Cravings Ondansetron HCl 4 mg 08/03/24 19:36 08/08/24 10:24 Ondansetron Inj 4 Mg/2 Ml Vial IV PUSH 4 mg Q4H PRN Administration Nausea Pantoprazole Sodium 40 mg 08/04/24 09:00 08/09/24 10:05 Pantoprazole 40 Mg Tablet BY MOUTH 40 mg DAILY DIAMOND Administration Polyethylene Glycol 17 gm 08/05/24 12:46 08/08/24 09:27 Polyethylene Glycol 3350 17 Gm Powd.Pack PO 17 gm QAM PRN Administration Constipation Potassium Chloride 10 meq 08/04/24 08:00 08/09/24 10:04 Potassium Chloride 10 Meq Er Tablet PO 10 meq DAILY@0800 DIAMOND Administration Thiamine HCl 300 mg 08/05/24 09:00 08/09/24 10:05 Thiamine Hcl 100 Mg Tablet PO 300 mg QAM DIAMOND Administration Trazodone HCl 50 mg 08/04/24 01:05 08/08/24 21:16 Trazodone Hcl 50 Mg Tablet PO 50 mg HS DIAMOND Administration Radiology Results: ITS Impressions Chest X-Ray 08/05/24 06:18 Impression: Discoid atelectasis or scarring left lung base, otherwise clear lungs. Foot X-Ray 08/06/24 13:36 IMPRESSION: 1. Mild polyarticular osteoarthritis. MRCP 08/09/24 09:53 IMPRESSION: 1. 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 2. Stricture of the common bile duct secondary to pancreatitis with mild intrahepatic biliary duct dilatation and gallbladder distention. Labs Labs: Laboratory Results - last 24 hr 08/04/24 08/04/24 08/08/24 00:12 18:13 23:43 WBC RBC Hgb Hct MCV MCH MCHC RDW Plt Count MPV Immature Gran % (Auto) Neut % (Auto) Lymph % (Auto) [place] % (Auto) Eos % (Auto) Baso % (Auto) Lymph # (Auto) [place] # (Auto) Eos # (Auto) Baso # (Auto) Abs Immat Gran (auto) Absolute Neuts (auto) Absolute Nucleated RBC Nucleated RBC % Sodium Potassium Chloride Carbon Dioxide Anion Gap BUN Creatinine Estim Creat Clear Calc Estimated GFR Glucose POC Capillary Glucose 93 88 123 H Calcium Total Bilirubin AST ALT Alkaline Phosphatase Total Protein Albumin Lipase 08/09/24 08/09/24 08/09/24 05:27 05:43 12:32 WBC 5.1 RBC 3.20 L Hgb 9.7 L Hct 30.5 L MCV 95.3 MCH 30.3 MCHC 31.8 L RDW 17.5 H Plt Count 474 H MPV 9.3 Immature Gran % (Auto) 0.4 Neut % (Auto) 56.8 Lymph % (Auto) 26.2 [place] % (Auto) 12.9 H Eos % (Auto) 2.5 Baso % (Auto) 1.2 Lymph # (Auto) 1.34 [place] # (Auto) 0.7 H Eos # (Auto) 0.1 Baso # (Auto) 0.1 Abs Immat Gran (auto) 0.02 Absolute Neuts (auto) 2.9 Absolute Nucleated RBC 0.000 Nucleated RBC % 0.0 Sodium 134 L Potassium 3.6 Chloride 101 Carbon Dioxide 21 L Anion Gap 12 BUN 4 L Creatinine 0.63 L Estim Creat Clear Calc 123 Estimated GFR > 60 Glucose 99 POC Capillary Glucose 109 H 128 H Calcium 8.9 Total Bilirubin 0.2 AST 14 L ALT 22 Alkaline Phosphatase 176 H Total Protein 7.0 Albumin 3.4 L Lipase 294 Quality VTE Prophylaxis VTE prophylaxis: pharmacologic ordered Hospitalist MIPS Advance Care Plan I have confirmed that the patient's Advanced Care Plan is present, code status is documented, or surrogate decision maker is listed in patient medical record.: Yes Medication Reconciliation I have utilized all available resources to obtain, update and review the patients current medications (includes all prescriptions, OTC, herbals, cannabis, and nutritional supplements).: Yes
[2024-08-09 16:58] LABS: Glucose Point of Care 125 mg/dl (65-105)
[2024-08-09] MEDS: HYDROcodone/acetaminophen (*CRX) 5-325 MG TABLET 1 TAB PO (20:05)
[2024-08-09] MEDS: traZODone HCL 50 MG TABLET PO (20:05)
[2024-08-09 20:22] LABS: MRSA (PCR) NOT DETECTED (NOT DETECTE)
[2024-08-09] MEDS: CALCIUM CARBONATE (TUMS) 500 MG (200 MG ELEMENTAL) PO (23:08)
[2024-08-10] VITALS (12 sets, daily range): BP systolic 103–137; BP diastolic 78–91; PULSE 73–921; RESP 16–18; TEMP 36.2–36.9; O2SAT 92–100
[2024-08-10 00:06] LABS: Glucose Point of Care 146 mg/dl (65-105)
[2024-08-10] MEDS: HYDROcodone/acetaminophen (*CRX) 5-325 MG TABLET 1 TAB PO ×4 (03:49→18:40)
[2024-08-10 04:59] LABS: Glucose Point of Care 103 mg/dl (65-105)
[2024-08-10] MEDS: GABAPENTIN 300 MG CAPSULE PO ×3 (05:00→22:22)
[2024-08-10] MEDS: chlordiazePOXIDE (*CRX) 10 MG CAPSULE PO ×3 (05:00→22:22)
[2024-08-10] MEDS: metroNIDAZOLE 500 MG TABLET PO ×3 (05:00→22:21)
[2024-08-10] MEDS: CALCIUM CARBONATE (TUMS) 500 MG (200 MG ELEMENTAL) PO ×2 (05:00→09:46)
[2024-08-10] MEDS: DEXTROSE 5%/0.9% SOD CHL 1,000 ML 100 ML IV CONT (05:56)
[2024-08-10 06:20] LABS: Basophils Absolute Auto 0.1 K/mm3 (0.0-0.1); Basophils Percent Auto 1.3 % (0.2-1.2); Eosinophils Absolute Auto 0.2 K/mm3 (0-0.3); Eosinophils Percent Auto 2.7 % (0-4.4); Hematocrit 29.7 % (42.0-52.0); Hemoglobin 9.3 g/dL (14.0-18.0); Immature Granulocyte Absolute 0.02 K/mm3 (0.00-0.031); Immature Granulocyte Percent A 0.3 % (0-0.5); Lymphocytes Absolute Auto 1.58 K/mm3 (0.9-3.2); Lymphocytes Percent Auto 26.6 % (18.3-44.2); Mean Corpuscular HGB Conc 31.3 g/dl (32-36); Mean Corpuscular Hemoglobin 29.5 pg (26-34); Mean Corpuscular Volume 94.3 fl (80-100); Monocytes Absolute Auto 0.8 K/mm3 (0.1-0.6); Monocytes Percent Auto 13.2 % (2.6-8.5); Neutrophils Absolute Auto 3.3 K/mm3 (1.3-6.7); Neutrophils Percent Auto 55.9 % (45.5-73.1); Platelet Count Result 560 k/mm3 (150-375); Red Blood Count 3.15 M/mm3 (4.6-6.20); Red Cell Distribution Width 17.6 % (11.5-14.5); White Blood Count 5.9 K/mm3 (4.5-10.0)
[2024-08-10 06:41] LABS: Alanine Aminotransferase 18 U/L (6-50); Albumin Level 3.3 g/dL (3.5-5.1); Alkaline Phosphatase 142 U/L (38-126); Anion Gap 8 mmol/L (4-12); Aspartate Amino Transferase 17 U/L (17-59); Bilirubin,Total 0.2 mg/dL (0.2-1.3); Blood Urea Nitrogen 2 mg/dL (9-20); Carbon Dioxide 23 mmol/L (22-30); Chloride 104 mmol/L (98-107); Estimated CRCL calculation 121 ml/min; Estimated Glomerular Filt Rate > 60; Glucose 115 mg/dL (65-110); Lipase 305 U/L (23-300); Potassium 3.9 mmol/L (3.4-5.0); Sodium 135 mmol/L (137-145)
[2024-08-10] MEDS: ASCORBIC ACID 500 MG TABLET PO (07:58)
[2024-08-10] MEDS: FOLIC ACID 1 MG TABLET BY MOUTH (07:58)
[2024-08-10] MEDS: carBAMazepine 200 MG TABLET PO ×2 (07:58→22:22)
[2024-08-10] MEDS: LOSARTAN POTASSIUM 25 MG TABLET PO (07:59)
[2024-08-10] MEDS: DULoxetine HCL 30 MG CAPSULE.DR PO ×2 (07:59→17:22)
[2024-08-10] MEDS: amLODIPine BESYLATE 10 MG TABLET PO (07:59)
[2024-08-10] MEDS: FENOFIBRATE 160 MG TABLET PO (07:59)
[2024-08-10] MEDS: POTASSIUM CHLORIDE 10 MEQ ER TABLET PO (07:59)
[2024-08-10] MEDS: LIPASE/AMYLASE/PROTEASE 12,000 UNITS CAP 1 CAP PO ×3 (07:59→17:21)
[2024-08-10] MEDS: CEFEPIME 2 GM/NS 50 ML 2 GM/50 ML BAG IVPB ×2 (07:59→22:22)
[2024-08-10] MEDS: ENOXAPARIN 40 MG/0.4 ML SYRINGE SUB-Q (08:02)
[2024-08-10] MEDS: THIAMINE HCL 100 MG TABLET 300 MG PO (08:02)
[2024-08-10] MEDS: MAGNESIUM OXIDE 400 MG TABLET PO (08:02)
[2024-08-10] MEDS: PANTOPRAZOLE 40 MG TABLET BY MOUTH (08:02)
[2024-08-10] MEDS: NICOTINE (*PBKC) 14 MG PATCH 1 PATCH TRANSDERM (08:11)
--- NOTE | 2024-08-10 09:28 | P.PNIM_ITS ---
Progress Note: A&P Assessment and Plan (1) Acute on chronic pancreatitis: Code(s): K85.90 - Acute pancreatitis without necrosis or infection, unspecified; K86.1 - Other chronic pancreatitis Status: Acute Assessment and Plan: ## acute on chronic exacerbation --> most likely due to alcoholism. -continue IV hydration -Cefepime 2 gram IVPB q 12. --> IV and po analgesia ordered --> trend lipase --1104-->470-->592-->678 advance diet as tolerated 08/08/24: * Continue to trend Lipase, today is 528. * Unable to advance diet today due to pt's persistent nausea. 08/09: MRCP1. 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 2. Stricture of the common bile duct secondary to pancreatitis with mild intrahepatic biliary duct dilatation and gallbladder distention. Will call Dr. Loya at [facility] to transfer. As per patient the patient had multiple stents that was placed by Dr. Loya and was removed. 08/10/2024:Patient is accepted at [facility]. Accepting physician is (2) Hypertension: Qualifiers: Hypertension type: primary hypertension Qualified Code(s): I10 - Essential (primary) hypertension Code(s): I10 - Essential (primary) hypertension Status: Acute Assessment and Plan: -->Continue blood pressure medications monitor vital signs 08/08/24: * Stable, continue to monitor. (3) Alcohol abuse: Code(s): F10.10 - Alcohol abuse, uncomplicated Status: Acute Assessment and Plan: ##chronic alcoholic. -->Librium scheduled -->CIWA protocol -->Thiamine as tolerated -Ativan prn severe agitated -librium 10 mg q8 (4) Tobacco dependence: Code(s): F17.200 - Nicotine dependence, unspecified, uncomplicated Status: Acute Assessment and Plan: ##cigarette smoker --Order nicotine patch -- discussed smoking cessation (5) Open wound of left great toe with damage to nail: Code(s): S91. - Unspecified open wound of left great toe with damage to nail, initial encounter Status: Acute Assessment and Plan: ##unknown cause --> Wound nurse consulted- patient has dry old blood blisters on the end of several toes on both feet. All areas are dry and easily peeled off. Skin underneath is 100% closed, healed, and faye. No wound care needed at this time . - WBC- 8.4. 08/08/24: * Pt was consulted on by Wound care and no treatment recommended at this time as the appearance of the toes were blood blisters only. Skin underneath was clear. (6) Nausea and vomiting: Qualifiers: Vomiting type: unspecified Qualified Code(s): R11.2 - Nausea with vomiting, unspecified Code(s): R11.2 - Nausea with vomiting, unspecified Status: Inactive Assessment and Plan: * Ondansetron 4 mg IVP q 4 PRN. * Eat slowly as tolerated. * D5NS @ 100 ml/hr. 08/08/24: * Continue liquid diet at this time as pt is continually nauseated and we are unable to progress diet at this time. 08/10: Able to tolerate clear liquid diet (7) Constipation: Code(s): K59.00 - Constipation, unspecified Status: Acute Assessment and Plan: * Miralax 17 gram PO daily PRN. * Add Docusate 100 mg PO q12 PRN. (8) Headache: Code(s): R51.9 - Headache, unspecified Status: Acute Assessment and Plan: * Hydrocodone/Acetaminophen 5-325 mg 1 tab PO q 4 PRN. Subjective Date/time seen: 08/10/24 09:28 Interval history: Interval Hx:58-year-old male smoker with history of alcohol abuse, chronic pancreatitis, and hypertension who presented to the emergency department from [place] for evaluation. The patient provides the following history. He was discharged from the hospital on 08/02 afternoon after a 3 day stay in which he was treated for acute on chronic pancreatitis and alcohol withdrawal. His pain had improved and he was tolerating clear liquids but is mentioned in his discharge summary that he had some difficulty with solid foods. After returning back to rehab, he ate a full dinner consisting of pork loins with mashed potatoes and gravy and green beans. Not surprisingly his abdominal pain worsened significantly with reports of severe sharp, shooting upper abdominal pain radiating through to the back associated with nausea and vomiting.He was admitted on 08/02. I assumed care on 08/09 ordered MRCP which shows worsening acute on chronic pancreatitis compared to MRCP performed on 06/24. 08/10: Able to tolerate a clear liquid diet. Patient is accepted at [facility]. Accepting physician is Review of Systems Review of Systems: Severe abdominal pains bilateral toe discomfort. All systems reviewed & are unremarkable except as noted in HPI and below Exam Narrative: General: Chronically ill Respiratory: Lungs are clear to auscultation bilaterally. Cardiovascular: Regular rate and rhythm with S1-S2. Gastrointestinal: TTP over RUQ area Skin: Warm and dry. Extremities: No cyanosis, clubbing, or edema. Radial and pedal pulses intact. Neurological: Alert. Cranial nerves 2-12 are grossly intact. No tremors. No gross focal deficits to casual conversation. Psychiatric: Somnolent Const: General: cooperative, no acute distress, anxious, uncomfortable and average body habitus Nutritional Appearance: average body habitus Orientation/consciousness: patient oriented x3 HENMT: Head: normal to inspection and normocephalic Eyes: General: appearance normal, both eyes and all related structures Neck: Neck: normal visual inspection, full ROM, no lymphadenopathy and supple Chest: Chest palpation & inspection: normal inspection of the chest Resp: Effort & Inspection: normal respiratory effort Auscultation: clear to auscultation bilaterally Cardio: Jugular venous distension: no JVD Rate: regular rate Rhythm: regular rhythm Heart sounds: S1 normal heart sound present and S2 normal heart sound present Peripheral pulses: Peripheral pulses 2+ throughout Other: Telemetry- SR 99 GI: Inspection: normal to inspection Auscultation: normal bowel sounds Skin: General skin exam: no rashes or lesions noted and wounds noted Wounds: wounds noted left plantar 5th toe size (Circumferential distal toe including nail and pad, black and dry), malodorous and with surrounding erythema, left plantar 4th toe size (entire base of toe deep purple and tender. ) and malodorous, left plantar 2nd toe size (blister like area on the dorsal aspect of toe, tender to touch) and with surrounding erythema, right posterior 2nd toe size (blister that forms at the distal pad of toe and extends into the pad of foot. ) and with surrounding erythema Other: Patient has dry old blood blisters on the end of several toes on both feet. Healthy closed tissue underneath. Neuro: General: patient oriented x3 and moves all extremities Speech: normal speech Extrem: General: no pedal edema Psych: Appearance: grossly normal Mental Status: mental status grossly normal Speech and movement: Normal speech and movement present Affect: Anxious affect present Attitude: cooperative Thought process: Normal th ought process present Insight: Good insight present (Psych) Judgement: Good judgement present (Psych) Objective Data Vital Signs Vital Signs: Vital Signs - 24 hr 08/09/24 12:00 08/09/24 12:00 08/09/24 16:00 Temperature 97.8 F Pulse Rate 81 101 H 81 Pulse Rate [Apical Monitor] Respiratory Rate 18 Blood Pressure 115/78 Pulse Oximetry 99 Oxygen Delivery 08/09/24 16:00 08/09/24 20:00 08/09/24 20:00 Temperature Pulse Rate 81 93 Pulse Rate [Apical Monitor] 83 Respiratory Rate 18 16 Blood Pressure 108/75 110/77 Pulse Oximetry 96 98 Oxygen Delivery Room Air 08/09/24 20:02 08/09/24 20:05 08/10/24 00:00 Temperature 98.4 F Pulse Rate 91 93 Pulse Rate [Apical Monitor] 91 Respiratory Rate 16 Blood Pressure 110/77 Pulse Oximetry 98 Oxygen Delivery 08/10/24 00:02 08/10/24 00:16 08/10/24 04:00 Temperature 97.9 F Pulse Rate 89 82 Pulse Rate [Apical Monitor] 88 Respiratory Rate 16 Blood Pressure 137/88 Pulse Oximetry Oxygen Delivery 08/10/24 04:02 08/10/24 04:53 08/10/24 08:00 Temperature 97.2 F L 98.4 F Pulse Rate 88 73 83 Pulse Rate [Apical Monitor] Respiratory Rate 16 18 Blood Pressure 103/78 116/83 Pulse Oximetry 97 100 Oxygen Delivery Intake/Output Intake/Output: Intake & Output 08/07/24 08/08/24 08/09/24 08/10/24 23:59 23:59 23:59 23:59 Intake Total 3320 2420 4590 1550 Output Total 350 Balance 2970 2420 4590 1550 Meds/Results Medications: Active Medications Generic Name Dose Route Start Last Admin Trade Name Freq PRN Reason Stop Dose Admin Hydrocodone Bitart/Acetaminophen 1 tab 08/04/24 13:28 08/10/24 03:49 Hydrocodone/Acetaminophen (*Crx) 5-325 Mg Tablet PO 1 tab Q4H PRN Administration Pain Rated 4-6 Amlodipine Besylate 10 mg 08/04/24 09:00 08/10/24 07:59 Amlodipine Besylate 10 Mg Tablet PO 10 mg DAILY DIAMOND Administration Lipase/Protease/Amylase 1 cap 08/04/24 08:00 08/10/24 07:59 Lipase/Amylase/Protease 12,000 Units Cap PO 1 cap TIDWM DIAMOND Administration Ascorbic Acid 500 mg 08/04/24 09:00 08/10/24 07:58 Ascorbic Acid 500 Mg Tablet PO 500 mg DAILY DIAMOND Administration Calcium Carbonate 200 mg 08/09/24 22:47 08/10/24 05:00 Calcium Carbonate (Tums) 500 Mg (200 Mg Elemental) PO 200 mg Q6H PRN Administration Indigestion Carbamazepine 200 mg 08/03/24 23:10 08/10/24 07:58 Carbamazepine 200 Mg Tablet PO 200 mg Q12HR DIAMOND Administration Chlordiazepoxide HCl 10 mg 08/04/24 13:30 08/10/24 05:00 Chlordiazepoxide (*Crx) 10 Mg Capsule PO 10 mg Q8HR DIAMOND Administration Chlordiazepoxide HCl 25 mg 08/05/24 03:30 08/09/24 16:49 Chlordiazepoxide (*Crx) 25 Mg Capsule PO 25 mg Q6H PRN Administration Withdrawal Docusate Sodium 100 mg 08/07/24 11:10 08/08/24 09:27 Docusate Sodium 100 Mg Capsule PO 100 mg Q12H PRN Administration Constipation Duloxetine HCl 30 mg 08/04/24 09:00 08/10/24 07:59 Duloxetine Hcl 30 Mg Capsule.Dr PO 30 mg BID DIAMOND Administration Enoxaparin Sodium 40 mg 08/04/24 09:00 08/10/24 08:02 Enoxaparin 40 Mg/0.4 Ml Syringe SUB-Q 40 mg DAILY DIAMOND Administration Fenofibrate 160 mg 08/04/24 09:00 08/10/24 07:59 Fenofibrate 160 Mg Tablet PO 160 mg DAILY DIAMOND Administration Folic Acid 1 mg 08/04/24 09:00 08/10/24 07:58 Folic Acid 1 Mg Tablet BY MOUTH 1 mg DAILY DIAMOND Administration Gabapentin 300 mg 08/03/24 23:10 08/10/24 05:00 Gabapentin 300 Mg Capsule PO 300 mg Q8HR DIAMOND Administration Hydromorphone HCl 0.5 mg 08/04/24 03:34 Hydromorphone Hcl Inj (*Crx) 1 Mg/Ml Syr IV PUSH Q3H PRN Pain Rated 4-6 Hydromorphone HCl 1 mg 08/04/24 03:34 08/06/24 02:45 Hydromorphone Hcl Inj (*Crx) 1 Mg/Ml Syr IV PUSH 1 mg Q3H PRN Administration Pain Rated 7-10 Dextrose/Sodium Chloride 1,000 mls @ 100 mls/hr 08/05/24 01:55 08/10/24 05:56 Dextrose 5% Sodium Chloride 0.9% IV CONT 100 mls/hr .Q10H DIAMOND Administration Cefepime HCl 2 gm in 50 mls @ 100 mls/hr 08/06/24 13:00 08/10/24 07:59 Maxipime 2 Gm/Ns 50 Ml IVPB 100 mls/hr Q12HR DIAMOND Administration Lorazepam 2 mg 08/04/24 20:52 08/07/24 13:06 Lorazepam Inj (*Crx) 2 Mg/Ml Vial IV PUSH 2 mg Q2H PRN Administration Alcohol Withdrawal Losartan Potassium 25 mg 08/04/24 09:00 08/10/24 07:59 Losartan Potassium 25 Mg Tablet PO 25 mg DAILY DIAMOND Administration Magnesium Oxide 400 mg 08/04/24 09:00 08/10/24 08:02 Magnesium Oxide 400 Mg Tablet PO 400 mg DAILY DIAMOND Administration Meloxicam 7.5 mg 08/03/24 23:10 08/08/24 09:27 Meloxicam 7.5 Mg Tablet PO 7.5 mg BID PRN Administration joint pain Metoclopramide HCl 10 mg 08/05/24 12:50 Metoclopramide Hcl Inj 10 Mg/2 Ml Vial IV PUSH Q6HR PRN nausea Metronidazole 500 mg 08/06/24 14:00 08/10/24 05:00 Metronidazole 500 Mg Tablet PO 500 mg Q8HR DIAMOND Administration Miscellaneous Information 1 each 08/05/24 00:01 Reglan And Zofran Both Active Prn For N/V, Please Clarify When To Give Each XX 09/04/24 00:00 CLARIFY DIAMOND Nicotine 1 patch 08/04/24 09:00 08/10/24 08:11 Nicotine (*Pbkc) 14 Mg Patch TRANSDERM 1 patch DAILY DIAMOND Administration Nicotine Polacrilex 4 mg 08/06/24 23:51 08/07/24 05:53 Nicotine (*Pbkc) 4 Mg Gum PO 4 mg PRN PRN Administration Nicotine Cravings Ondansetron HCl 4 mg 08/03/24 19:36 08/08/24 10:24 Ondansetron Inj 4 Mg/2 Ml Vial IV PUSH 4 mg Q4H PRN Administration Nausea Pantoprazole Sodium 40 mg 08/04/24 09:00 08/10/24 08:02 Pantoprazole 40 Mg Tablet BY MOUTH 40 mg DAILY DIAMOND Administration Polyethylene Glycol 17 gm 08/05/24 12:46 08/08/24 09:27 Polyethylene Glycol 3350 17 Gm Powd.Pack PO 17 gm QAM PRN Administration Constipation Potassium Chloride 10 meq 08/04/24 08:00 08/10/24 07:59 Potassium Chloride 10 Meq Er Tablet PO 10 meq DAILY@0800 DIAMOND Administration Thiamine HCl 300 mg 08/05/24 09:00 08/10/24 08:02 Thiamine Hcl 100 Mg Tablet PO 300 mg QAM DIAMOND Administration Trazodone HCl 50 mg 08/04/24 01:05 08/09/24 20:05 Trazodone Hcl 50 Mg Tablet PO 50 mg HS DIAMOND Administration Radiology Results: ITS Impressions Chest X-Ray 08/05/24 06:18 Impression: Discoid atelectasis or scarring left lung base, otherwise clear lungs. Foot X-Ray 08/06/24 13:36 IMPRESSION: 1. Mild polyarticular osteoarthritis. MRCP 08/09/24 09:53 IMPRESSION: 1. 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 2. Stricture of the common bile duct secondary to pancreatitis with mild intrahepatic biliary duct dilatation and gallbladder distention. Labs Labs: Laboratory Results - last 24 hr 08/04/24 08/04/24 08/09/24 00:12 18:13 12:32 WBC RBC Hgb Hct MCV MCH MCHC RDW Plt Count MPV Immature Gran % (Auto) Neut % (Auto) Lymph % (Auto) [place] % (Auto) Eos % (Auto) Baso % (Auto) Lymph # (Auto) [place] # (Auto) Eos # (Auto) Baso # (Auto) Abs Immat Gran (auto) Absolute Neuts (auto) Absolute Nucleated RBC Nucleated RBC % Sodium Potassium Chloride Carbon Dioxide Anion Gap BUN Creatinine Estim Creat Clear Calc Estimated GFR Glucose POC Capillary Glucose 93 88 128 H Calcium Total Bilirubin AST ALT Alkaline Phosphatase Total Protein Albumin Lipase Nasal MRSA (PCR) 08/09/24 08/09/24 08/09/24 16:53 18:56 23:10 WBC RBC Hgb Hct MCV MCH MCHC RDW Plt Count MPV Immature Gran % (Auto) Neut % (Auto) Lymph % (Auto) [place] % (Auto) Eos % (Auto) Baso % (Auto) Lymph # (Auto) [place] # (Auto) Eos # (Auto) Baso # (Auto) Abs Immat Gran (auto) Absolute Neuts (auto) Absolute Nucleated RBC Nucleated RBC % Sodium Potassium Chloride Carbon Dioxide Anion Gap BUN Creatinine Estim Creat Clear Calc Estimated GFR Glucose POC Capillary Glucose 125 H 146 H Calcium Total Bilirubin AST ALT Alkaline Phosphatase Total Protein Albumin Lipase Nasal MRSA (PCR) Not detected 08/10/24 08/10/24 04:55 05:57 WBC 5.9 RBC 3.15 L Hgb 9.3 L Hct 29.7 L MCV 94.3 MCH 29.5 MCHC 31.3 L RDW 17.6 H Plt Count 560 H MPV 9.0 Immature Gran % (Auto) 0.3 Neut % (Auto) 55.9 Lymph % (Auto) 26.6 [place] % (Auto) 13.2 H Eos % (Auto) 2.7 Baso % (Auto) 1.3 H Lymph # (Auto) 1.58 [place] # (Auto) 0.8 H Eos # (Auto) 0.2 Baso # (Auto) 0.1 Abs Immat Gran (auto) 0.02 Absolute Neuts (auto) 3.3 Absolute Nucleated RBC 0.000 Nucleated RBC % 0.0 Sodium 135 L Potassium 3.9 Chloride 104 Carbon Dioxide 23 Anion Gap 8 BUN 2 L Creatinine 0.64 L Estim Creat Clear Calc 121 Estimated GFR > 60 Glucose 115 H POC Capillary Glucose 103 Calcium 9.0 Total Bilirubin 0.2 AST 17 ALT 18 Alkaline Phosphatase 142 H Total Protein 6.0 L Albumin 3.3 L Lipase 305 H Nasal MRSA (PCR) Quality VTE Prophylaxis VTE prophylaxis: pharmacologic ordered Hospitalist MIPS Advance Care Plan I have confirmed that the patient's Advanced Care Plan is present, code status is documented, or surrogate decision maker is listed in patient medical record.: Yes Medication Reconciliation I have utilized all available resources to obtain, update and review the patients current medications (includes all prescriptions, OTC, herbals, cannabis, and nutritional supplements).: Yes
[2024-08-10] MEDS: chlordiazePOXIDE (*CRX) 25 MG CAPSULE PO ×2 (09:45→18:40)
[2024-08-10 12:03] LABS: Glucose Point of Care 113 mg/dl (65-105)
--- NOTE | 2024-08-10 12:26 | WPDGIPROGNO ---
Progress Note: A&P Assessment and Plan (1) Necrotizing pancreatitis: Code(s): K85.91 - Acute pancreatitis with uninfected necrosis, unspecified Status: Acute Assessment and Plan: patient had multiple ERCP at another facility, given complex case and new findings in pancreas I recommend transfer to his GI physician and evaluate if would benefit from endoscopic intervention he should quit drinking alcohol altogether he is comfortable and ciwa protocol pain right now is mostly chronic, ok to advance to low fat diet only mild elevated AP it should be ok to discontinue abx (2) Dilation of biliary tract: Code(s): K83.8 - Other specified diseases of biliary tract Status: Acute (3) Alcohol abuse: Code(s): F10.10 - Alcohol abuse, uncomplicated Status: Acute (4) Alcohol withdrawal: Code(s): F10.939 - Alcohol use, unspecified with withdrawal, unspecified Status: Acute (5) Elevated LFTs: Code(s): R79.89 - Other specified abnormal findings of blood chemistry Status: Acute (6) Epigastric pain: Code(s): R10.13 - Epigastric pain Status: Acute Subjective Date/time seen: 08/10/24 12:26 Interval history: he says that current pain is similar to his chronic daily abdominal pain, he is hungry and also would like to advance diet he is comfortable otherwise Review of Systems Review of Systems: All systems reviewed & are unremarkable except as noted in HPI and below Exam Const: General: cooperative, no acute distress, anxious, uncomfortable and average body habitus Nutritional Appearance: average body habitus Orientation/consciousness: patient oriented x3 HENMT: Head: normal to inspection and normocephalic Eyes: General: appearance normal, both eyes and all related structures Neck: Neck: supple Chest: Chest palpation & inspection: normal inspection of the chest Resp: Effort & Inspection: normal respiratory effort Auscultation: clear to auscultation bilaterally Cardio: Jugular venous distension: no JVD Rate: regular rate Rhythm: regular rhythm GI: GI Palp: Yes Soft to palpation and No Guarding due to palpation present (GI) Auscultation: normal bowel sounds Skin: General skin exam: no rashes or lesions noted and wounds noted Neuro: General: patient oriented x3 and moves all extremities Speech: normal speech Extrem: General: no pedal edema Psych: Appearance: grossly normal Mental Status: mental status grossly normal Speech and movement: Normal speech and movement present Affect: Anxious affect present Attitude: cooperative Thought process: Normal thought process present Objective Data Vital Signs Vital Signs: Vital Signs - 24 hr 08/09/24 16:00 08/09/24 16:00 08/09/24 20:00 Temperature Pulse Rate 81 81 Pulse Rate [Apical Monitor] 83 Respiratory Rate 18 Blood Pressure 108/75 110/77 Pulse Oximetry 96 Oxygen Delivery 08/09/24 20:00 08/09/24 20:02 08/09/24 20:05 Temperature 98.4 F Pulse Rate 93 91 93 Pulse Rate [Apical Monitor] Respiratory Rate 16 16 Blood Pressure 110/77 Pulse Oximetry 98 98 Oxygen Delivery Room Air 08/10/24 00:00 08/10/24 00:02 08/10/24 00:16 Temperature 97.9 F Pulse Rate 89 82 Pulse Rate [Apical Monitor] 91 Respiratory Rate 16 Blood Pressure 137/88 Pulse Oximetry Oxygen Delivery 08/10/24 04:00 08/10/24 04:02 08/10/24 04:53 Temperature 97.2 F L Pulse Rate 88 73 Pulse Rate [Apical Monitor] 88 Respiratory Rate 16 Blood Pressure 103/78 Pulse Oximetry 97 Oxygen Delivery 08/10/24 08:00 08/10/24 12:00 Temperature 98.4 F 97.7 F Pulse Rate 83 88 Pulse Rate [Apical Monitor] Respiratory Rate 18 18 Blood Pressure 116/83 118/79 Pulse Oximetry 100 98 Oxygen Delivery Intake/Output Intake/Output: Intake & Output 08/07/24 08/08/24 08/09/24 08/10/24 23:59 23:59 23:59 23:59 Intake Total 3320 2420 4590 1790 Output Total 350 Balance 2970 2420 4590 1790 Meds/Results Medications: Active Medications Generic Name Dose Route Start Last Admin Trade Name Freq PRN Reason Stop Dose Admin Hydrocodone Bitart/Acetaminophen 1 tab 08/04/24 13:28 08/10/24 09:44 Hydrocodone/Acetaminophen (*Crx) 5-325 Mg Tablet PO 1 tab Q4H PRN Administration Pain Rated 4-6 Amlodipine Besylate 10 mg 08/04/24 09:00 08/10/24 07:59 Amlodipine Besylate 10 Mg Tablet PO 10 mg DAILY DIAMOND Administration Lipase/Protease/Amylase 1 cap 08/04/24 08:00 08/10/24 07:59 Lipase/Amylase/Protease 12,000 Units Cap PO 1 cap TIDWM DIAMOND Administration Ascorbic Acid 500 mg 08/04/24 09:00 08/10/24 07:58 Ascorbic Acid 500 Mg Tablet PO 500 mg DAILY DIAMOND Administration Calcium Carbonate 200 mg 08/09/24 22:47 08/10/24 09:46 Calcium Carbonate (Tums) 500 Mg (200 Mg Elemental) PO 200 mg Q6H PRN Administration Indigestion Carbamazepine 200 mg 08/03/24 23:10 08/10/24 07:58 Carbamazepine 200 Mg Tablet PO 200 mg Q12HR DIAMOND Administration Chlordiazepoxide HCl 10 mg 08/04/24 13:30 08/10/24 05:00 Chlordiazepoxide (*Crx) 10 Mg Capsule PO 10 mg Q8HR DIAMOND Administration Chlordiazepoxide HCl 25 mg 08/05/24 03:30 08/10/24 09:45 Chlordiazepoxide (*Crx) 25 Mg Capsule PO 25 mg Q6H PRN Administration Withdrawal Docusate Sodium 100 mg 08/07/24 11:10 08/08/24 09:27 Docusate Sodium 100 Mg Capsule PO 100 mg Q12H PRN Administration Constipation Duloxetine HCl 30 mg 08/04/24 09:00 08/10/24 07:59 Duloxetine Hcl 30 Mg Capsule.Dr PO 30 mg BID DIAMOND Administration Enoxaparin Sodium 40 mg 08/04/24 09:00 08/10/24 08:02 Enoxaparin 40 Mg/0.4 Ml Syringe SUB-Q 40 mg DAILY DIAMOND Administration Fenofibrate 160 mg 08/04/24 09:00 08/10/24 07:59 Fenofibrate 160 Mg Tablet PO 160 mg DAILY DIAMOND Administration Folic Acid 1 mg 08/04/24 09:00 08/10/24 07:58 Folic Acid 1 Mg Tablet BY MOUTH 1 mg DAILY DIAMOND Administration Gabapentin 300 mg 08/03/24 23:10 08/10/24 05:00 Gabapentin 300 Mg Capsule PO 300 mg Q8HR DIAMOND Administration Hydromorphone HCl 0.5 mg 08/04/24 03:34 Hydromorphone Hcl Inj (*Crx) 1 Mg/Ml Syr IV PUSH Q3H PRN Pain Rated 4-6 Hydromorphone HCl 1 mg 08/04/24 03:34 08/06/24 02:45 Hydromorphone Hcl Inj (*Crx) 1 Mg/Ml Syr IV PUSH 1 mg Q3H PRN Administration Pain Rated 7-10 Dextrose/Sodium Chloride 1,000 mls @ 100 mls/hr 08/05/24 01:55 08/10/24 05:56 Dextrose 5% Sodium Chloride 0.9% IV CONT 100 mls/hr .Q10H DIAMOND Administration Cefepime HCl 2 gm in 50 mls @ 100 mls/hr 08/06/24 13:00 08/10/24 07:59 Maxipime 2 Gm/Ns 50 Ml IVPB 100 mls/hr Q12HR DIAMOND Administration Lorazepam 2 mg 08/04/24 20:52 08/07/24 13:06 Lorazepam Inj (*Crx) 2 Mg/Ml Vial IV PUSH 2 mg Q2H PRN Administration Alcohol Withdrawal Losartan Potassium 25 mg 08/04/24 09:00 08/10/24 07:59 Losartan Potassium 25 Mg Tablet PO 25 mg DAILY DIAMOND Administration Magnesium Oxide 400 mg 08/04/24 09:00 08/10/24 08:02 Magnesium Oxide 400 Mg Tablet PO 400 mg DAILY DIAMOND Administration Meloxicam 7.5 mg 08/03/24 23:10 08/08/24 09:27 Meloxicam 7.5 Mg Tablet PO 7.5 mg BID PRN Administration joint pain Metoclopramide HCl 10 mg 08/05/24 12:50 Metoclopramide Hcl Inj 10 Mg/2 Ml Vial IV PUSH Q6HR PRN nausea Metronidazole 500 mg 08/06/24 14:00 08/10/24 05:00 Metronidazole 500 Mg Tablet PO 500 mg Q8HR DIAMOND Administration Miscellaneous Information 1 each 08/05/24 00:01 Reglan And Zofran Both Active Prn For N/V, Please Clarify When To Give Each XX 09/04/24 00:00 CLARIFY DIAMOND Nicotine 1 patch 08/04/24 09:00 08/10/24 08:11 Nicotine (*Pbkc) 14 Mg Patch TRANSDERM 1 patch DAILY DIAMOND Administration Nicotine Polacrilex 4 mg 08/06/24 23:51 08/07/24 05:53 Nicotine (*Pbkc) 4 Mg Gum PO 4 mg PRN PRN Administration Nicotine Cravings Ondansetron HCl 4 mg 08/03/24 19:36 08/08/24 10:24 Ondansetron Inj 4 Mg/2 Ml Vial IV PUSH 4 mg Q4H PRN Administration Nausea Pantoprazole Sodium 40 mg 08/04/24 09:00 08/10/24 08:02 Pantoprazole 40 Mg Tablet BY MOUTH 40 mg DAILY DIAMOND Administration Polyethylene Glycol 17 gm 08/05/24 12:46 08/08/24 09:27 Polyethylene Glycol 3350 17 Gm Powd.Pack PO 17 gm QAM PRN Administration Constipation Potassium Chloride 10 meq 08/04/24 08:00 08/10/24 07:59 Potassium Chloride 10 Meq Er Tablet PO 10 meq DAILY@0800 DIAMOND Administration Thiamine HCl 300 mg 08/05/24 09:00 08/10/24 08:02 Thiamine Hcl 100 Mg Tablet PO 300 mg QAM DIAMOND Administration Trazodone HCl 50 mg 08/04/24 01:05 08/09/24 20:05 Trazodone Hcl 50 Mg Tablet PO 50 mg HS DIAMOND Administration Radiology Results: ITS Impressions Chest X-Ray 08/05/24 06:18 Impression: Discoid atelectasis or scarring left lung base, otherwise clear lungs. Foot X-Ray 08/06/24 13:36 IMPRESSION: 1. Mild polyarticular osteoarthritis. MRCP 08/09/24 09:53 IMPRESSION: 1. 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 2. Stricture of the common bile duct secondary to pancreatitis with mild intrahepatic biliary duct dilatation and gallbladder distention. Labs Labs: Laboratory Results - last 24 hr 08/04/24 08/04/24 08/09/24 00:12 18:13 12:32 WBC RBC Hgb Hct MCV MCH MCHC RDW Plt Count MPV Immature Gran % (Auto) Neut % (Auto) Lymph % (Auto) [place] % (Auto) Eos % (Auto) Baso % (Auto) Lymph # (Auto) [place] # (Auto) Eos # (Auto) Baso # (Auto) Abs Immat Gran (auto) Absolute Neuts (auto) Absolute Nucleated RBC Nucleated RBC % Sodium Potassium Chloride Carbon Dioxide Anion Gap BUN Creatinine Estim Creat Clear Calc Estimated GFR Glucose POC Capillary Glucose 93 88 128 H Calcium Total Bilirubin AST ALT Alkaline Phosphatase Total Protein Albumin Lipase Nasal MRSA (PCR) 08/09/24 08/09/24 08/09/24 16:53 18:56 23:10 WBC RBC Hgb Hct MCV MCH MCHC RDW Plt Count MPV Immature Gran % (Auto) Neut % (Auto) Lymph % (Auto) [place] % (Auto) Eos % (Auto) Baso % (Auto) Lymph # (Auto) [place] # (Auto) Eos # (Auto) Baso # (Auto) Abs Immat Gran (auto) Absolute Neuts (auto) Absolute Nucleated RBC Nucleated RBC % Sodium Potassium Chloride Carbon Dioxide Anion Gap BUN Creatinine Estim Creat Clear Calc Estimated GFR Glucose POC Capillary Glucose 125 H 146 H Calcium Total Bilirubin AST ALT Alkaline Phosphatase Total Protein Albumin Lipase Nasal MRSA (PCR) Not detected 08/10/24 08/10/24 08/10/24 04:55 05:57 11:59 WBC 5.9 RBC 3.15 L Hgb 9.3 L Hct 29.7 L MCV 94.3 MCH 29.5 MCHC 31.3 L RDW 17.6 H Plt Count 560 H MPV 9.0 Immature Gran % (Auto) 0.3 Neut % (Auto) 55.9 Lymph % (Auto) 26.6 [place] % (Auto) 13.2 H Eos % (Auto) 2.7 Baso % (Auto) 1.3 H Lymph # (Auto) 1.58 [place] # (Auto) 0.8 H Eos # (Auto) 0.2 Baso # (Auto) 0.1 Abs Immat Gran (auto) 0.02 Absolute Neuts (auto) 3.3 Absolute Nucleated RBC 0.000 Nucleated RBC % 0.0 Sodium 135 L Potassium 3.9 Chloride 104 Carbon Dioxide 23 Anion Gap 8 BUN 2 L Creatinine 0.64 L Estim Creat Clear Calc 121 Estimated GFR > 60 Glucose 115 H POC Capillary Glucose 103 113 H Calcium 9.0 Total Bilirubin 0.2 AST 17 ALT 18 Alkaline Phosphatase 142 H Total Protein 6.0 L Albumin 3.3 L Lipase 305 H Nasal MRSA (PCR)
[2024-08-10] MEDS: HYDROmorphone HCL INJ (*CRX) 1 MG/ML SYR IV PUSH ×2 (18:17→22:22)
[2024-08-10] MEDS: MELOXICAM 7.5 MG TABLET PO (18:17)
[2024-08-10] MEDS: METOCLOPRAMIDE HCL INJ 10 MG/2 ML VIAL IV PUSH (18:18)
[2024-08-10] MEDS: ONDANSETRON INJ 4 MG/2 ML VIAL IV PUSH ×2 (18:40→22:29)
[2024-08-10] MEDS: DOCUSATE SODIUM 100 MG CAPSULE PO (18:41)
[2024-08-10] MEDS: polyethylene glycoL 3350 17 GM POWD.PACK PO (18:41)
[2024-08-10] MEDS: traZODone HCL 50 MG TABLET PO (22:22)
[2024-08-11] VITALS (7 sets, daily range): BP systolic 109–146; BP diastolic 81–97; PULSE 84–109; RESP 14–18; TEMP 36.6–37.1; O2SAT 95–100
[2024-08-11] MEDS: chlordiazePOXIDE (*CRX) 10 MG CAPSULE PO ×3 (05:06→20:42)
[2024-08-11] MEDS: GABAPENTIN 300 MG CAPSULE PO ×3 (05:07→20:44)
[2024-08-11] MEDS: metroNIDAZOLE 500 MG TABLET PO ×3 (05:07→20:42)
[2024-08-11] MEDS: CALCIUM CARBONATE (TUMS) 500 MG (200 MG ELEMENTAL) PO ×3 (06:34→22:09)
[2024-08-11] MEDS: HYDROmorphone HCL INJ (*CRX) 1 MG/ML SYR IV PUSH ×5 (06:40→22:10)
--- NOTE | 2024-08-11 08:22 | PM.IMPN ---
Progress Note: A&P Assessment and Plan (1) Acute on chronic pancreatitis: Code(s): K85.90 - Acute pancreatitis without necrosis or infection, unspecified; K86.1 - Other chronic pancreatitis Status: Acute Assessment and Plan: ## acute on chronic exacerbation --> most likely due to alcoholism. -continue IV hydration -Cefepime 2 gram IVPB q 12. --> IV and po analgesia ordered --> trend lipase --1104-->470-->592-->678 advance diet as tolerated 08/08/24: Continue to trend Lipase, today is 528. Unable to advance diet today due to pt's persistent nausea. 08/09: MRCP1. 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 2. Stricture of the common bile duct secondary to pancreatitis with mild intrahepatic biliary duct dilatation and gallbladder distention. Will call Dr. Loya at [facility] to transfer. As per patient the patient had multiple stents that was placed by Dr. Loya and was removed. 08/10/2024:Patient is accepted at [facility]. Accepting physician is (2) Hypertension: Qualifiers: Hypertension type: primary hypertension Qualified Code(s): I10 - Essential (primary) hypertension Code(s): I10 - Essential (primary) hypertension Status: Acute Assessment and Plan: -->Continue blood pressure medications monitor vital signs 08/08/24: Stable, continue to monitor. (3) Alcohol abuse: Code(s): F10.10 - Alcohol abuse, uncomplicated Status: Acute Assessment and Plan: ##chronic alcoholic. -->Librium scheduled -->CIWA protocol -->Thiamine as tolerated -Ativan prn severe agitated -librium 10 mg q8 (4) Tobacco dependence: Code(s): F17.200 - Nicotine dependence, unspecified, uncomplicated Status: Acute Assessment and Plan: ##cigarette smoker --Order nicotine patch -- discussed smoking cessation (5) Open wound of left great toe with damage to nail: Code(s): S91.A - Unspecified open wound of left great toe with damage to nail, initial encounter Status: Acute Assessment and Plan: ##unknown cause --> Wound nurse consulted- patient has dry old blood blisters on the end of several toes on both feet. All areas are dry and easily peeled off. Skin underneath is 100% closed, healed, and faye. No wound care needed at this time . - WBC- 8.4. 08/08/24: Pt was consulted on by Wound care and no treatment recommended at this time as the appearance of the toes were blood blisters only. Skin underneath was clear. (6) Nausea and vomiting: Qualifiers: Vomiting type: unspecified Qualified Code(s): R11.2 - Nausea with vomiting, unspecified Code(s): R11.2 - Nausea with vomiting, unspecified Status: Inactive Assessment and Plan: Ondansetron 4 mg IVP q 4 PRN. Eat slowly as tolerated. D5NS @ 100 ml/hr. 08/08/24: Continue liquid diet at this time as pt is continually nauseated and we are unable to progress diet at this time. 08/10: Able to tolerate clear liquid diet (7) Constipation: Code(s): K59.00 - Constipation, unspecified Status: Acute Assessment and Plan: Miralax 17 gram PO daily PRN. Add Docusate 100 mg PO q12 PRN. (8) Headache: Code(s): R51.9 - Headache, unspecified Status: Acute Assessment and Plan: Hydrocodone/Acetaminophen 5-325 mg 1 tab PO q 4 PRN. Subjective Date/time seen: 08/11/24 08:22 Interval history: Interval Hx:58-year-old male smoker with history of alcohol abuse, chronic pancreatitis, and hypertension who presented to the emergency department from [place] for evaluation. The patient provides the following history. He was discharged from the hospital on 08/02 afternoon after a 3 day stay in which he was treated for acute on chronic pancreatitis and alcohol withdrawal. His pain had improved and he was tolerating clear liquids but is mentioned in his discharge summary that he had some difficulty with solid foods. After returning back to rehab, he ate a full dinner consisting of pork loins with mashed potatoes and gravy and green beans. Not surprisingly his abdominal pain worsened significantly with reports of severe sharp, shooting upper abdominal pain radiating through to the back associated with nausea and vomiting.He was admitted on 08/02. I assumed care on 08/09 ordered MRCP which shows worsening acute on chronic pancreatitis compared to MRCP performed on 06/24. Patient is accepted at [facility]. Accepting physician is 08/11: Patient had some episode of intolerance of food. He was given clear liquid in the morning and switched back to low-fat diet. Review of Systems Review of Systems: Severe abdominal pains bilateral toe discomfort. All systems reviewed & are unremarkable except as noted in HPI and below Exam Narrative: General: Chronically ill Respiratory: Lungs are clear to auscultation bilaterally. Cardiovascular: Regular rate and rhythm with S1-S2. Gastrointestinal: TTP over RUQ area Skin: Warm and dry. Extremities: No cyanosis, clubbing, or edema. Radial and pedal pulses intact. Neurological: Alert. Cranial nerves 2-12 are grossly intact. No tremors. No gross focal deficits to casual conversation. Psychiatric: Somnolent Const: General: cooperative, no acute distress, anxious, uncomfortable and average body habitus Nutritional Appearance: average body habitus Orientation/consciousness: patient oriented x3 HENMT: Head: normal to inspection and normocephalic Eyes: General: appearance normal, both eyes and all related structures Neck: Neck: normal visual inspection, full ROM, no lymphadenopathy and supple Chest: Chest palpation & inspection: normal inspection of the chest Resp: Effort & Inspection: normal respiratory effort Auscultation: clear to auscultation bilaterally Cardio: Jugular venous distension: no JVD Rate: regular rate Rhythm: regular rhythm Heart sounds: S1 normal heart sound present and S2 normal heart sound present Peripheral pulses: Peripheral pulses 2+ throughout Other: Telemetry- SR 99 GI: Inspection: normal to inspection Auscultation: normal bowel sounds Skin: General skin exam: no rashes or lesions noted and wounds noted Wounds: wounds noted left plantar 5th toe size (Circumferential distal toe including nail and pad, black and dry), malodorous and with surrounding erythema, left plantar 4th toe size (entire base of toe deep purple and tender. ) and malodorous, left plantar 2nd toe size (blister like area on the dorsal aspect of toe, tender to touch) and with surrounding erythema, right posterior 2nd toe size (blister that forms at the distal pad of toe and extends into the pad of foot. ) and with surrounding erythema Other: Patient has dry old blood blisters on the end of several toes on both feet. Healthy closed tissue underneath. Neuro: General: patient oriented x3 and moves all extremities Speech: normal speech Extrem: General: no pedal edema Psych: Appearance: grossly normal Mental Status: mental status grossly normal Speech and movement: Normal speech and movement present Affect: Anxious affect present Attitude: cooperative Thought process: Normal thought process present Insight: Good insight present (Psych) Judgement: Good judgement present (Psych) Objective Data Vital Signs Vital Signs: Vital Signs - 24 hr 08/10/24 12:00 08/10/24 12:00 08/10/24 12:00 Temperature 97.7 F Pulse Rate 88 98 Pulse Rate [Apical Monitor] 88 Respiratory Rate 18 Blood Pressure 118/79 118/79 Pulse Oximetry 98 Oxygen Delivery 08/10/24 15:59 08/10/24 16:00 08/10/24 16:00 Temperature 97.6 F Pulse Rate 92 921 H Pulse Rate [Apical Monitor] 88 Respiratory Rate 18 Blood Pressure 123/91 H 123/91 H Pulse Oximetry 100 Oxygen Delivery 08/10/24 19:58 08/10/24 20:00 08/10/24 20:00 Temperature 97.6 F Pulse Rate 89 107 H Pulse Rate [Apical Monitor] Respiratory Rate 16 Blood Pressure 121/90 Pulse Oximetry 92 Oxygen Delivery Room Air 08/11/24 00:00 08/11/24 00:00 08/11/24 04:00 Temperature 98.8 F Pulse Rate 96 94 87 Pulse Rate [Apical Monitor] Respiratory Rate 14 Blood Pressure 146/95 H Pulse Oximetry 95 Oxygen Delivery 08/11/24 04:47 Temperature 98.0 F Pulse Rate 88 Pulse Rate [Apical Monitor] Respiratory Rate 18 Blood Pressure 137/97 H Pulse Oximetry 98 Oxygen Delivery Intake/Output Intake/Output: Intake & Output 08/08/24 08/09/24 08/10/24 08/11/24 23:59 23:59 23:59 23:59 Intake Total 2420 4590 2080 550 Balance 2420 4590 2080 550 Meds/Results Medications: Active Medications Generic Name Dose Route Start Last Admin Trade Name Freq PRN Reason Stop Dose Admin Hydrocodone Bitart/Acetaminophen 1 tab 08/04/24 13:28 08/10/24 18:40 Hydrocodone/Acetaminophen (*Crx) 5-325 Mg Tablet PO 1 tab Q4H PRN Administration Pain Rated 4-6 Amlodipine Besylate 10 mg 08/04/24 09:00 08/10/24 07:59 Amlodipine Besylate 10 Mg Tablet PO 10 mg DAILY DI[facility]OND Administration Lipase/Protease/Amylase 1 cap 08/04/24 08:00 08/10/24 17:21 Lipase/Amylase/Protease 12,000 Units Cap PO 1 cap TIDWM DIAMOND Administration Ascorbic Acid 500 mg 08/04/24 09:00 08/10/24 07:58 Ascorbic Acid 500 Mg Tablet PO 500 mg DAILY DI[facility] Administration Calcium Carbonate 200 mg 08/09/24 22:47 08/11/24 06:34 Calcium Carbonate (Tums) 500 Mg (200 Mg Elemental) PO 200 mg Q6H PRN Administration Indigestion Carbamazepine 200 mg 08/03/24 23:10 08/10/24 22:22 Carbamazepine 200 Mg Tablet PO 200 mg Q12HR [facility] Administration Chlordiazepoxide HCl 10 mg 08/04/24 13:30 08/11/24 05:06 Chlordiazepoxide (*Crx) 10 Mg Capsule PO 10 mg Q8HR [facility] Administration Chlordiazepoxide HCl 25 mg 08/05/24 03:30 08/10/24 18:40 Chlordiazepoxide (*Crx) 25 Mg Capsule PO 25 mg Q6H PRN Administration Withdrawal Docusate Sodium 100 mg 08/07/24 11:10 08/10/24 18:41 Docusate Sodium 100 Mg Capsule PO 100 mg Q12H PRN Administration Constipation Duloxetine HCl 30 mg 08/04/24 09:00 08/10/24 17:22 Duloxetine Hcl 30 Mg Capsule.Dr PO 30 mg BID DI[facility] Administration Enoxaparin Sodium 40 mg 08/04/24 09:00 08/10/24 08:02 Enoxaparin 40 Mg/0.4 Ml Syringe SUB-Q 40 mg DAILY DI[facility]OND Administration Fenofibrate 160 mg 08/04/24 09:00 08/10/24 07:59 Fenofibrate 160 Mg Tablet PO 160 mg DAILY [facility] Administration Folic Acid 1 mg 08/04/24 09:00 08/10/24 07:58 Folic Acid 1 Mg Tablet BY MOUTH 1 mg DAILY [facility] Administration Gabapentin 300 mg 08/03/24 23:10 08/11/24 05:07 Gabapentin 300 Mg Capsule PO 300 mg Q8HR [facility] Administration Hydromorphone HCl 0.5 mg 08/04/24 03:34 Hydromorphone Hcl Inj (*Crx) 1 Mg/Ml Syr IV PUSH Q3H PRN Pain Rated 4-6 Hydromorphone HCl 1 mg 08/04/24 03:34 08/11/24 06:40 Hydromorphone Hcl Inj (*Crx) 1 Mg/Ml Syr IV PUSH 1 mg Q3H PRN Administration Pain Rated 7-10 Cefepime HCl 2 gm in 50 mls @ 100 mls/hr 08/06/24 13:00 08/10/24 22:22 Maxipime 2 Gm/Ns 50 Ml IVPB 100 mls/hr Q12HR [facility] Administration Lorazepam 2 mg 08/04/24 20:52 08/07/24 13:06 Lorazepam Inj (*Crx) 2 Mg/Ml Vial IV PUSH 2 mg Q2H PRN Administration Alcohol Withdrawal Losartan Potassium 25 mg 08/04/24 09:00 08/10/24 07:59 Losartan Potassium 25 Mg Tablet PO 25 mg DAILY [facility] Administration Magnesium Oxide 400 mg 08/04/24 09:00 08/10/24 08:02 Magnesium Oxide 400 Mg Tablet PO 400 mg DAILY [facility] Administration Meloxicam 7.5 mg 08/03/24 23:10 08/10/24 18:17 Meloxicam 7.5 Mg Tablet PO 7.5 mg BID PRN Administration joint pain Metoclopramide HCl 10 mg 08/05/24 12:50 08/10/24 18:18 Metoclopramide Hcl Inj 10 Mg/2 Ml Vial IV PUSH 10 mg Q6HR PRN Administration nausea Metronidazole 500 mg 08/06/24 14:00 08/11/24 05:07 Metronidazole 500 Mg Tablet PO 500 mg Q8HR [facility] Administration Miscellaneous Information 1 each 08/05/24 00:01 Reglan And Zofran Both Active Prn For N/V, Please Clarify When To Give Each XX 09/04/24 00:00 CLARIFY DIAMOND Nicotine 1 patch 08/04/24 09:00 08/10/24 08:11 Nicotine (*Pbkc) 14 Mg Patch TRANSDERM 1 patch DAILY [facility] Administration Nicotine Polacrilex 4 mg 08/06/24 23:51 08/07/24 05:53 Nicotine (*Pbkc) 4 Mg Gum PO 4 mg PRN PRN Administration Nicotine Cravings Ondansetron HCl 4 mg 08/03/24 19:36 08/10/24 22:29 Ondansetron Inj 4 Mg/2 Ml Vial IV PUSH 4 mg Q4H PRN Administration Nausea Pantoprazole Sodium 40 mg 08/04/24 09:00 08/10/24 08:02 Pantoprazole 40 Mg Tablet BY MOUTH 40 mg DAILY [facility] Administration Polyethylene Glycol 17 gm 08/05/24 12:46 08/10/24 18:41 Polyethylene Glycol 3350 17 Gm Powd.Pack PO 17 gm QAM PRN Administration Constipation Potassium Chloride 10 meq 08/04/24 08:00 08/10/24 07:59 Potassium Chloride 10 Meq Er Tablet PO 10 meq DAILY@0800 [facility] Administration Thiamine HCl 300 mg 08/05/24 09:00 08/10/24 08:02 Thiamine Hcl 100 Mg Tablet PO 300 mg QAM [facility] Administration Trazodone HCl 50 mg 08/04/24 01:05 08/10/24 22:22 Trazodone Hcl 50 Mg Tablet PO 50 mg HS DI[facility]OND Administration Radiology Results: ITS Impressions Chest X-Ray 08/05/24 06:18 Impression: Discoid atelectasis or scarring left lung base, otherwise clear lungs. Foot X-Ray 08/06/24 13:36 IMPRESSION: 1. Mild polyarticular osteoarthritis. MRCP 08/09/24 09:53 IMPRESSION: 1. 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 2. Stricture of the common bile duct secondary to pancreatitis with mild intrahepatic biliary duct dilatation and gallbladder distention. Labs Labs: Laboratory Results - last 24 hr 08/10/24 11:59 POC Capillary Glucose 113 H Quality VTE Prophylaxis VTE prophylaxis: pharmacologic ordered Hospitalist [facility] Advance Care Plan I have confirmed that the patient's Advanced Care Plan is present, code status is documented, or surrogate decision maker is listed in patient medical record.: Yes Medication Reconciliation I have utilized all available resources to obtain, update and review the patients current medications (includes all prescriptions, OTC, herbals, cannabis, and nutritional supplements).: Yes
[2024-08-11 08:56] LABS: Hematocrit 34.2 % (42.0-52.0); Hemoglobin 10.9 g/dL (14.0-18.0); Mean Corpuscular HGB Conc 31.9 g/dl (32-36); Mean Corpuscular Hemoglobin 30.1 pg (26-34); Mean Corpuscular Volume 94.5 fl (80-100); Mean Platelet Volume 8.8 fl (7.4-10.4); Platelet Count Result 728 k/mm3 (150-375); Red Blood Count 3.62 M/mm3 (4.6-6.20); Red Cell Distribution Width 17.4 % (11.5-14.5); White Blood Count 9.1 K/mm3 (4.5-10.0)
[2024-08-11 09:09] LABS: Phosphorus 3.6 mg/dL (2.5-4.5)
[2024-08-11] MEDS: CEFEPIME 2 GM/NS 50 ML 2 GM/50 ML BAG IVPB ×2 (09:09→20:44)
[2024-08-11] MEDS: MAGNESIUM OXIDE 400 MG TABLET PO (09:09)
[2024-08-11] MEDS: chlordiazePOXIDE (*CRX) 25 MG CAPSULE PO ×2 (09:09→16:25)
[2024-08-11] MEDS: LIPASE/AMYLASE/PROTEASE 12,000 UNITS CAP 1 CAP PO ×3 (09:09→16:25)
[2024-08-11] MEDS: THIAMINE HCL 100 MG TABLET 300 MG PO (09:09)
[2024-08-11] MEDS: ASCORBIC ACID 500 MG TABLET PO (09:10)
[2024-08-11] MEDS: FENOFIBRATE 160 MG TABLET PO (09:10)
[2024-08-11] MEDS: carBAMazepine 200 MG TABLET PO ×2 (09:10→20:41)
[2024-08-11] MEDS: DULoxetine HCL 30 MG CAPSULE.DR PO ×2 (09:10→16:25)
[2024-08-11] MEDS: DOCUSATE SODIUM 100 MG CAPSULE PO ×2 (09:10→20:42)
[2024-08-11] MEDS: PANTOPRAZOLE 40 MG TABLET BY MOUTH (09:10)
[2024-08-11] MEDS: NICOTINE (*PBKC) 14 MG PATCH 1 PATCH TRANSDERM (09:10)
[2024-08-11] MEDS: POTASSIUM CHLORIDE 10 MEQ ER TABLET PO (09:10)
[2024-08-11] MEDS: ONDANSETRON INJ 4 MG/2 ML VIAL IV PUSH (09:10)
[2024-08-11] MEDS: polyethylene glycoL 3350 17 GM POWD.PACK PO ×2 (09:10→20:43)
[2024-08-11] MEDS: FOLIC ACID 1 MG TABLET BY MOUTH (09:10)
[2024-08-11 09:11] LABS: Alanine Aminotransferase 19 U/L (6-50); Albumin Level 3.9 g/dL (3.5-5.1); Alkaline Phosphatase 166 U/L (38-126); Anion Gap 12 mmol/L (4-12); Aspartate Amino Transferase 20 U/L (17-59); Bilirubin,Total 0.3 mg/dL (0.2-1.3); Blood Urea Nitrogen 5 mg/dL (9-20); Calcium 9.9 mg/dL (8.4-10.2); Carbon Dioxide 27 mmol/L (22-30); Chloride 99 mmol/L (98-107); Estimated CRCL calculation 99 ml/min; Estimated Glomerular Filt Rate > 60; Glucose 114 mg/dL (65-110); Potassium 4.3 mmol/L (3.4-5.0); Sodium 138 mmol/L (137-145)
[2024-08-11] MEDS: MELOXICAM 7.5 MG TABLET PO ×2 (09:11→16:25)
[2024-08-11] MEDS: amLODIPine BESYLATE 10 MG TABLET PO (09:11)
[2024-08-11] MEDS: LOSARTAN POTASSIUM 25 MG TABLET PO (09:11)
[2024-08-11] MEDS: HYDROcodone/acetaminophen (*CRX) 5-325 MG TABLET 1 TAB PO (09:25)
[2024-08-11] MEDS: LORazepam INJ (*CRX) 2 MG/ML VIAL 0.5 MG IV PUSH (16:20)
--- NOTE | 2024-08-11 16:54 | WPDGIPROGNO ---
Progress Note: A&P Assessment and Plan (1) Necrotizing pancreatitis: Code(s): K85.91 - Acute pancreatitis with uninfected necrosis, unspecified Status: Acute Assessment and Plan: patient had multiple ERCP at another facility, given complex case I recommend transfer to [facility] and evaluate if would benefit from endoscopic intervention but overall he is doing better, another possibility is to go home with pain meds as needed and then he can be evaluated again by his GI doctor he should quit drinking alcohol altogether pain right now is mostly chronic and tolerating low fat diet only mild elevated AP- stable ok to discontinue abx (2) Dilation of biliary tract: Code(s): K83.8 - Other specified diseases of biliary tract Status: Acute (3) Alcohol abuse: Code(s): F10.10 - Alcohol abuse, uncomplicated Status: Acute (4) Alcohol withdrawal: Code(s): F10.939 - Alcohol use, unspecified with withdrawal, unspecified Status: Acute (5) Elevated LFTs: Code(s): R79.89 - Other specified abnormal findings of blood chemistry Status: Acute Assessment and Plan: no changes (6) Epigastric pain: Code(s): R10.13 - Epigastric pain Status: Acute Assessment and Plan: chronic Subjective Date/time seen: 08/11/24 16:54 Interval history: he is comfortable, similar abdominal pain able to tolerate diet Review of Systems Review of Systems: All systems reviewed & are unremarkable except as noted in HPI and below Exam Const: General: cooperative, no acute distress, anxious and average body habitus Nutritional Appearance: average body habitus Orientation/consciousness: patient oriented x3 HENMT: Head: normal to inspection and normocephalic Eyes: General: appearance normal, both eyes and all related structures Neck: Neck: supple Chest: Chest palpation & inspection: normal inspection of the chest Resp: Effort & Inspection: normal respiratory effort Auscultation: clear to auscultation bilaterally Cardio: Rate: regular rate Rhythm: regular rhythm GI: GI Palp: Yes Soft to palpation and No Guarding due to palpation present (GI) Auscultation: normal bowel sounds Skin: General skin exam: no rashes or lesions noted and wounds noted Neuro: General: patient oriented x3 and moves all extremities Speech: normal speech Extrem: General: no pedal edema Psych: Appearance: grossly normal Mental Status: mental status grossly normal Speech and movement: Normal speech and movement present Affect: Anxious affect present Attitude: cooperative Thought process: Normal thought process present Objective Data Vital Signs Vital Signs: Vital Signs - 24 hr 08/10/24 19:58 08/10/24 20:00 08/10/24 20:00 Temperature 97.6 F Pulse Rate 89 107 H Pulse Rate [Apical Monitor] Respiratory Rate 16 Blood Pressure 121/90 Pulse Oximetry 92 Oxygen Delivery Room Air 08/11/24 00:00 08/11/24 00:00 08/11/24 04:00 Temperature 98.8 F Pulse Rate 96 94 87 Pulse Rate [Apical Monitor] Respiratory Rate 14 Blood Pressure 146/95 H Pulse Oximetry 95 Oxygen Delivery 08/11/24 04:47 08/11/24 08:00 08/11/24 08:00 Temperature 98.0 F 97.9 F Pulse Rate 88 109 H Pulse Rate [Apical Monitor] 88 Respiratory Rate 18 18 Blood Pressure 137/97 H 120/82 136/81 Pulse Oximetry 98 99 Oxygen Delivery 08/11/24 08:00 08/11/24 08:00 08/11/24 12:00 Temperature 97.9 F Pulse Rate 93 106 H 93 Pulse Rate [Apical Monitor] Respiratory Rate 18 18 Blood Pressure 136/81 Pulse Oximetry 98 98 Oxygen Delivery Room Air 08/11/24 12:00 08/11/24 16:00 Temperature 98.6 F Pulse Rate 107 H 97 Pulse Rate [Apical Monitor] Respiratory Rate 18 Blood Pressure 109/86 Pulse Oximetry 100 Oxygen Delivery Intake/Output Intake/Output: Intake & Output 08/08/24 08/09/24 08/10/24 08/11/24 23:59 23:59 23:59 23:59 Intake Total 2420 4590 2130 1030 Balance 2420 4590 2130 1030 Meds/Results Medications: Active Medications Generic Name Dose Route Start Last Admin Trade Name Freq PRN Reason Stop Dose Admin Hydrocodone Bitart/Acetaminophen 1 tab 08/04/24 13:28 08/11/24 09:25 Hydrocodone/Acetaminophen (*Crx) 5-325 Mg Tablet PO 1 tab Q4H PRN Administration Pain Rated 4-6 Amlodipine Besylate 10 mg 08/04/24 09:00 08/11/24 09:11 Amlodipine Besylate 10 Mg Tablet PO 10 mg DAILY [facility] Administration Lipase/Protease/Amylase 1 cap 08/04/24 08:00 08/11/24 16:25 Lipase/Amylase/Protease 12,000 Units Cap PO 1 cap TIDWM DIAMOND Administration Ascorbic Acid 500 mg 08/04/24 09:00 08/11/24 09:10 Ascorbic Acid 500 Mg Tablet PO 500 mg DAILY [facility] Administration Calcium Carbonate 200 mg 08/09/24 22:47 08/11/24 11:48 Calcium Carbonate (Tums) 500 Mg (200 Mg Elemental) PO 200 mg Q6H PRN Administration Indigestion Carbamazepine 200 mg 08/03/24 23:10 08/11/24 09:10 Carbamazepine 200 Mg Tablet PO 200 mg Q12HR [facility] Administration Chlordiazepoxide HCl 10 mg 08/04/24 13:30 08/11/24 15:00 Chlordiazepoxide (*Crx) 10 Mg Capsule PO 10 mg Q8HR [facility] Administration Chlordiazepoxide HCl 25 mg 08/05/24 03:30 08/11/24 16:25 Chlordiazepoxide (*Crx) 25 Mg Capsule PO 25 mg Q6H PRN Administration Withdrawal Docusate Sodium 100 mg 08/11/24 21:00 Docusate Sodium 100 Mg Capsule PO Q12H [facility] Duloxetine HCl 30 mg 08/04/24 09:00 08/11/24 16:25 Duloxetine Hcl 30 Mg Capsule.Dr PO 30 mg BID [facility] Administration Enoxaparin Sodium 40 mg 08/04/24 09:00 08/11/24 09:11 Enoxaparin 40 Mg/0.4 Ml Syringe SUB-Q Not Given DAILY [facility] Fenofibrate 160 mg 08/04/24 09:00 08/11/24 09:10 Fenofibrate 160 Mg Tablet PO 160 mg DAILY [facility] Administration Folic Acid 1 mg 08/04/24 09:00 08/11/24 09:10 Folic Acid 1 Mg Tablet BY MOUTH 1 mg DAILY [facility] Administration Gabapentin 300 mg 08/03/24 23:10 08/11/24 15:01 Gabapentin 300 Mg Capsule PO 300 mg Q8HR [facility] Administration Hydromorphone HCl 0.5 mg 08/04/24 03:34 Hydromorphone Hcl Inj (*Crx) 1 Mg/Ml Syr IV PUSH Q3H PRN Pain Rated 4-6 Hydromorphone HCl 1 mg 08/04/24 03:34 08/11/24 15:03 Hydromorphone Hcl Inj (*Crx) 1 Mg/Ml Syr IV PUSH 1 mg Q3H PRN Administration Pain Rated 7-10 Cefepime HCl 2 gm in 50 mls @ 100 mls/hr 08/06/24 13:00 08/11/24 09:09 Maxipime 2 Gm/Ns 50 Ml IVPB 100 mls/hr Q12HR [facility] Administration Losartan Potassium 25 mg 08/04/24 09:00 08/11/24 09:11 Losartan Potassium 25 Mg Tablet PO 25 mg DAILY [facility] Administration Magnesium Oxide 400 mg 08/04/24 09:00 08/11/24 09:09 Magnesium Oxide 400 Mg Tablet PO 400 mg DAILY [facility] Administration Meloxicam 7.5 mg 08/03/24 23:10 08/11/24 16:25 Meloxicam 7.5 Mg Tablet PO 7.5 mg BID PRN Administration joint pain Metoclopramide HCl 10 mg 08/05/24 12:50 08/10/24 18:18 Metoclopramide Hcl Inj 10 Mg/2 Ml Vial IV PUSH 10 mg Q6HR PRN Administration nausea Metronidazole 500 mg 08/06/24 14:00 08/11/24 15:00 Metronidazole 500 Mg Tablet PO 500 mg Q8HR [facility] Administration Miscellaneous Information 1 each 08/05/24 00:01 Reglan And Zofran Both Active Prn For N/V, Please Clarify When To Give Each XX 09/04/24 00:00 CLARIFY DIAMOND Nicotine 1 patch 08/04/24 09:00 08/11/24 09:10 Nicotine (*Pbkc) 14 Mg Patch TRANSDERM 1 patch DAILY [facility] Administration Nicotine Polacrilex 4 mg 08/06/24 23:51 08/07/24 05:53 Nicotine (*Pbkc) 4 Mg Gum PO 4 mg PRN PRN Administration Nicotine Cravings Ondansetron HCl 4 mg 08/03/24 19:36 08/11/24 09:10 Ondansetron Inj 4 Mg/2 Ml Vial IV PUSH 4 mg Q4H PRN Administration Nausea Pantoprazole Sodium 40 mg 08/04/24 09:00 08/11/24 09:10 Pantoprazole 40 Mg Tablet BY MOUTH 40 mg DAILY [facility] Administration Polyethylene Glycol 17 gm 08/11/24 21:00 Polyethylene Glycol 3350 17 Gm Powd.Pack PO BID [facility] Potassium Chloride 10 meq 08/04/24 08:00 08/11/24 09:10 Potassium Chloride 10 Meq Er Tablet PO 10 meq DAILY@0800 [facility] Administration Senna 8.6 mg 08/11/24 16:28 Sennosides 8.6 Mg Tablet PO DAILY PRN Constipation Thiamine HCl 300 mg 08/05/24 09:00 08/11/24 09:09 Thiamine Hcl 100 Mg Tablet PO 300 mg QAM [facility] Administration Trazodone HCl 50 mg 08/04/24 01:05 08/10/24 22:22 Trazodone Hcl 50 Mg Tablet PO 50 mg HS DI[facility]OND Administration Radiology Results: ITS Impressions Chest X-Ray 08/05/24 06:18 Impression: Discoid atelectasis or scarring left lung base, otherwise clear lungs. Foot X-Ray 08/06/24 13:36 IMPRESSION: 1. Mild polyarticular osteoarthritis. MRCP 08/09/24 09:53 IMPRESSION: 1. 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 2. Stricture of the common bile duct secondary to pancreatitis with mild intrahepatic biliary duct dilatation and gallbladder distention. Labs Labs: Laboratory Results - last 24 hr 08/11/24 08:33 WBC 9.1 RBC 3.62 L Hgb 10.9 L Hct 34.2 L MCV 94.5 MCH 30.1 MCHC 31.9 L RDW 17.4 H Plt Count 728 H MPV 8.8 Sodium 138 Potassium 4.3 Chloride 99 Carbon Dioxide 27 Anion Gap 12 BUN 5 L Creatinine 0.76 Estim Creat Clear Calc 99 Estimated GFR > 60 Glucose 114 H Calcium 9.9 Phosphorus 3.6 Magnesium 2.0 Total Bilirubin 0.3 AST 20 ALT 19 Alkaline Phosphatase 166 H Total Protein 7.0 Albumin 3.9
[2024-08-11] MEDS: traZODone HCL 50 MG TABLET PO (20:42)
[2024-08-12] VITALS (8 sets, daily range): BP systolic 104–131; BP diastolic 67–95; PULSE 82–113; RESP 16–18; TEMP 36.6–36.8; O2SAT 96–100
[2024-08-12] MEDS: HYDROmorphone HCL INJ (*CRX) 1 MG/ML SYR IV PUSH ×4 (02:30→18:03)
[2024-08-12] MEDS: ONDANSETRON INJ 4 MG/2 ML VIAL IV PUSH ×3 (02:30→18:11)
[2024-08-12] MEDS: CALCIUM CARBONATE (TUMS) 500 MG (200 MG ELEMENTAL) PO ×2 (04:38→21:12)
[2024-08-12 05:36] LABS: Hematocrit 35.6 % (42.0-52.0); Mean Corpuscular HGB Conc 30.9 g/dl (32-36); Mean Corpuscular Hemoglobin 30.3 pg (26-34); Mean Corpuscular Volume 98.1 fl (80-100); Mean Platelet Volume 8.7 fl (7.4-10.4); Platelet Count Result 873 k/mm3 (150-375); Red Blood Count 3.63 M/mm3 (4.6-6.20); Red Cell Distribution Width 17.9 % (11.5-14.5); White Blood Count 11.6 K/mm3 (4.5-10.0)
[2024-08-12] MEDS: chlordiazePOXIDE (*CRX) 10 MG CAPSULE PO ×3 (05:44→21:12)
[2024-08-12] MEDS: GABAPENTIN 300 MG CAPSULE PO ×3 (05:44→21:12)
[2024-08-12] MEDS: metroNIDAZOLE 500 MG TABLET PO (05:44)
[2024-08-12 07:31] LABS: Alanine Aminotransferase 19 U/L (6-50); Alkaline Phosphatase 185 U/L (38-126); Anion Gap 12 mmol/L (4-12); Aspartate Amino Transferase 21 U/L (17-59); Bilirubin,Total 0.2 mg/dL (0.2-1.3); Blood Urea Nitrogen 8 mg/dL (9-20); Calcium 10.3 mg/dL (8.4-10.2); Carbon Dioxide 25 mmol/L (22-30); Chloride 102 mmol/L (98-107); Estimated CRCL calculation 92 ml/min; Estimated Glomerular Filt Rate > 60; Glucose 108 mg/dL (65-110); Sodium 139 mmol/L (137-145)
[2024-08-12] MEDS: LOSARTAN POTASSIUM 25 MG TABLET PO (09:10)
[2024-08-12] MEDS: MAGNESIUM OXIDE 400 MG TABLET PO (09:10)
[2024-08-12] MEDS: LIPASE/AMYLASE/PROTEASE 12,000 UNITS CAP 1 CAP PO ×3 (09:10→18:03)
[2024-08-12] MEDS: amLODIPine BESYLATE 10 MG TABLET PO (09:10)
[2024-08-12] MEDS: ASCORBIC ACID 500 MG TABLET PO (09:10)
[2024-08-12] MEDS: POTASSIUM CHLORIDE 10 MEQ ER TABLET PO (09:10)
[2024-08-12] MEDS: THIAMINE HCL 100 MG TABLET 300 MG PO (09:10)
[2024-08-12] MEDS: FENOFIBRATE 160 MG TABLET PO (09:10)
[2024-08-12] MEDS: FOLIC ACID 1 MG TABLET BY MOUTH (09:10)
[2024-08-12] MEDS: polyethylene glycoL 3350 17 GM POWD.PACK PO ×2 (09:10→18:03)
[2024-08-12] MEDS: PANTOPRAZOLE 40 MG TABLET BY MOUTH (09:10)
[2024-08-12] MEDS: DULoxetine HCL 30 MG CAPSULE.DR PO ×2 (09:10→18:03)
[2024-08-12] MEDS: carBAMazepine 200 MG TABLET PO ×2 (09:11→21:12)
[2024-08-12] MEDS: CEFEPIME 2 GM/NS 50 ML 2 GM/50 ML BAG IVPB (09:11)
[2024-08-12] MEDS: HYDROmorphone HCL INJ (*CRX) 1 MG/ML SYR 0.5 MG IV PUSH (09:11)
[2024-08-12] MEDS: DOCUSATE SODIUM 100 MG CAPSULE PO ×2 (09:11→21:11)
[2024-08-12] MEDS: ENOXAPARIN 40 MG/0.4 ML SYRINGE SUB-Q (09:16)
[2024-08-12] MEDS: NICOTINE (*PBKC) 14 MG PATCH 1 PATCH TRANSDERM (09:16)
--- NOTE | 2024-08-12 09:57 | PCNFU ---
Nutrition Follow-Up Complete: Moderate protein calorie malnutrition related to inadequate energy intake and alcohol consumption as evidenced by poor po in take for greater than a month, -8% wt loss x 2 months and moderate subcutaneous fat loss (cheeks) and muscle wasting (pentecostal, clavicle). Goal:Diet order Pt meeting goal. New goal for adequate intake to continue Pt current nutrition is Low fat diet. Nutrition recommendation: encourage po intake Last recorded weight is 74.6 kg. Bowel Motility: +BM 08/12 Labs Reviewed: BUN:8, HCT:35.4, Hgb:11 Meds Noted: protonix Skin: WNL Additional Notes: Pt advanced to a low fat diet, intake 75-100%, tolerating well. Agree with orders. Monitor for diet orders, intake, tolerance, wt, labs. Follow up in 7 days.
[2024-08-12] MEDS: SENNOSIDES 8.6 MG TABLET PO (13:45)
--- NOTE | 2024-08-12 15:54 | P.PNIM_ITS ---
Progress Note: A&P Assessment and Plan (1) Acute on chronic pancreatitis: Code(s): K85.90 - Acute pancreatitis without necrosis or infection, unspecified; K86.1 - Other chronic pancreatitis Status: Acute Assessment and Plan: ## acute on chronic exacerbation --> most likely due to alcoholism. -continue IV hydration -Cefepime 2 gram IVPB q 12. --> IV and po analgesia ordered --> trend lipase --1104-->470-->592-->678 advance diet as tolerated 08/08/24: * Continue to trend Lipase, today is 528. * Unable to advance diet today due to pt's persistent nausea. 08/09: MRCP1. 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 2. Stricture of the common bile duct secondary to pancreatitis with mild intrahepatic biliary duct dilatation and gallbladder distention. Will call Dr. Loya at [facility] to transfer. As per patient the patient had multiple stents that was placed by Dr. Loya and was removed. 08/10/2024:Patient is accepted at [facility]. Accepting physician is 08/12 awaiting bed in [place] (2) Hypertension: Qualifiers: Hypertension type: primary hypertension Qualified Code(s): I10 - Essential (primary) hypertension Code(s): I10 - Essential (primary) hypertension Status: Acute Assessment and Plan: -->Continue blood pressure medications monitor vital signs (3) Alcohol abuse: Code(s): F10.10 - Alcohol abuse, uncomplicated Status: Acute Assessment and Plan: ##chronic alcoholic. -->Librium scheduled -->CIWA protocol -->Thiamine as tolerated -Ativan prn severe agitated -librium 10 mg q8 (4) Tobacco dependence: Code(s): F17.200 - Nicotine dependence, unspecified, uncomplicated Status: Acute Assessment and Plan: ##cigarette smoker --Order nicotine patch -- discussed smoking cessation (5) Open wound of left great toe with damage to nail: Code(s): S91.A - Unspecified open wound of left great toe with damage to nail, initial encounter Status: Acute Assessment and Plan: ##unknown cause --> Wound nurse consulted- patient has dry old blood blisters on the end of several toes on both feet. All areas are dry and easily peeled off. Skin underneath is 100% closed, healed, and faye. No wound care needed at this time . - WBC- 8.4. stable wound care rounding (6) Nausea and vomiting: Qualifiers: Vomiting type: unspecified Qualified Code(s): R11.2 - Nausea with vomi ting, unspecified Code(s): R11.2 - Nausea with vomiting, unspecified Status: Inactive Assessment and Plan: * Ondansetron 4 mg IVP q 4 PRN. * Eat slowly as tolerated. * D5NS @ 100 ml/hr. some intolerance to low fat diet (7) Constipation: Code(s): K59.00 - Constipation, unspecified Status: Acute Assessment and Plan: * Miralax 17 gram PO daily PRN. * Add Docusate 100 mg PO q12 PRN. (8) Headache: Code(s): R51.9 - Headache, unspecified Status: Acute Assessment and Plan: * Hydrocodone/Acetaminophen 5-325 mg 1 tab PO q 4 PRN. Subjective Date/time seen: 08/12/24 15:54 Interval history: Interval Hx:58-year-old male smoker with history of alcohol abuse, chronic pancreatitis, and hypertension who presented to the emergency department from [facility] for evaluation. The patient provides the following history. He was dis charged from the hospital on 08/02 afternoon after a 3 day stay in which he was treated for acute on chronic pancreatitis and alcohol withdrawal. His pain had improved and he was tolerating clear liquids but is mentioned in his discharge summary that he had some difficulty with solid foods. After returning back to rehab, he ate a full dinner consisting of pork loins with mashed potatoes and gravy and green beans. Not surprisingly his abdominal pain worsened significantly with reports of severe sharp, shooting upper abdominal pain radiating through to the back associated with nausea and vomiting.He was admitted on 08/02. I assumed care on 08/09 ordered MRCP which shows worsening acute on chronic pancreatitis compared to MRCP performed on 06/24. Patient is accepted at [facility]. Accepting physician is Pt nauseated with low fat diet likely transfer when tolerating diet awaiting bed in [place] Exam Narrative: General: Chronically ill Respiratory: Lungs are clear to auscultation bilaterally. Cardiovascular: Regular rate and rhythm with S1-S2. Gastrointestinal: soft non tender Skin: Warm and dry. Extremities: No cyanosis, clubbing, or edema. Radial and pedal pulses intact. Neurological: Alert. Cranial nerves 2-12 are grossly intact. No tremors. No gross focal deficits to casual conversation. Psychiatric: Somnolent Objective Data Vital Signs Vital Signs: Vital Signs - 24 hr 08/11/24 16:00 08/11/24 16:00 08/11/24 20:00 Temperature 37.0 C 36.6 C Pulse Rate 97 97 84 Respiratory Rate 18 18 Blood Pressure 109/86 121/86 Pulse Oximetry 100 99 Oxygen Delivery 08/11/24 20:00 08/11/24 20:00 08/12/24 00:00 Temperature 36.7 C Pulse Rate 88 82 Respiratory Rate 18 Blood Pressure 122/84 Pulse Oximetry 100 Oxygen Delivery Room Air 08/12/24 00:00 08/12/24 04:00 08/12/24 04:00 Temperature 36.8 C Pulse Rate 89 87 87 Respiratory Rate 18 Blood Pressure 131/95 H Pulse Oximetry 99 Oxygen Delivery 08/12/24 07:55 08/12/24 08:00 08/12/24 09:10 Temperature 36.6 C Pulse Rate 96 102 H Respiratory Rate 16 Blood Pressure 105/79 Pulse Oximetry 96 Oxygen Delivery Room Air 08/12/24 12:00 08/12/24 12:00 Temperature 36.7 C Pulse Rate 112 H 97 Respiratory Rate 16 Blood Pressure 108/77 Pulse Oximetry 96 Oxygen Delivery Intake/Output Intake/Output: Intake & Output 08/09/24 08/10/24 08/11/24 08/12/24 23:59 23:59 23:59 23:59 Intake Total 4590 2130 1250 680 Balance 4590 2130 1250 680 Meds/Results Medications: Active Medications Generic Name Dose Route Start Last Admin Trade Name Freq PRN Reason Stop Dose Admin Hydrocodone Bitart/Acetaminophen 1 tab 08/04/24 13:28 08/11/24 09:25 Hydrocodone/Acetaminophen (*Crx) 5-325 Mg Tablet PO 1 tab Q4H PRN Administration Pain Rated 4-6 Amlodipine Besylate 10 mg 08/04/24 09:00 08/12/24 09:10 Amlodipine Besylate 10 Mg Tablet PO 10 mg DAILY DIAMOND Administration Lipase/Protease/Amylase 1 cap 08/04/24 08:00 08/12/24 12:04 Lipase/Amylase/Protease 12,000 Units Cap PO 1 cap TIDWM DIAMOND Administration Ascorbic Acid 500 mg 08/04/24 09:00 08/12/24 09:10 Ascorbic Acid 500 Mg Tablet PO 500 mg DAILY DIAMOND Administration Calcium Carbonate 200 mg 08/09/24 22:47 08/12/24 04:38 Calcium Carbonate (Tums) 500 Mg (200 Mg Elemental) PO 200 mg Q6H PRN Administration Indigestion Carbamazepine 200 mg 08/03/24 23:10 08/12/24 09:11 Carbamazepine 200 Mg Tablet PO 200 mg Q12HR DIAMOND Administration Chlordiazepoxide HCl 10 mg 08/04/24 13:30 08/12/24 13:44 Chlordiazepoxide (*Crx) 10 Mg Capsule PO 10 mg Q8HR DIAMOND Administration Chlordiazepoxide HCl 25 mg 08/05/24 03:30 08/11/24 16:25 Chlordiazepoxide (*Crx) 25 Mg Capsule PO 25 mg Q6H PRN Administration Withdrawal Docusate Sodium 100 mg 08/11/24 21:00 08/12/24 09:11 Docusate Sodium 100 Mg Capsule PO 100 mg Q12H DIAMOND Administration Duloxetine HCl 30 mg 08/04/24 09:00 08/12/24 09:10 Duloxetine Hcl 30 Mg Capsule.Dr PO 30 mg BID DIAMOND Administration Enoxaparin Sodium 40 mg 08/04/24 09:00 08/12/24 09:16 Enoxaparin 40 Mg/0.4 Ml Syringe SUB-Q 40 mg DAILY DIAMOND Administration Fenofibrate 160 mg 08/04/24 09:00 08/12/24 09:10 Fenofibrate 160 Mg Tablet PO 160 mg DAILY DIAMOND Administration Folic Acid 1 mg 08/04/24 09:00 08/12/24 09:10 Folic Acid 1 Mg Tablet BY MOUTH 1 mg DAILY DIAMOND Administration Gabapentin 300 mg 08/03/24 23:10 08/12/24 13:44 Gabapentin 300 Mg Capsule PO 300 mg Q8HR DIAMOND Administration Hydromorphone HCl 0.5 mg 08/04/24 03:34 08/12/24 09:11 Hydromorphone Hcl Inj (*Crx) 1 Mg/Ml Syr IV PUSH 0.5 mg Q3H PRN Administration Pain Rated 4-6 Hydromorphone HCl 1 mg 08/04/24 03:34 08/12/24 13:51 Hydromorphone Hcl Inj (*Crx) 1 Mg/Ml Syr IV PUSH 1 mg Q3H PRN Administration Pain Rated 7-10 Losartan Potassium 25 mg 08/04/24 09:00 08/12/24 09:10 Losartan Potassium 25 Mg Tablet PO 25 mg DAILY DIAMOND Administration Magnesium Oxide 400 mg 08/04/24 09:00 08/12/24 09:10 Magnesium Oxide 400 Mg Tablet PO 400 mg DAILY DIAMOND Administration Meloxicam 7.5 mg 08/03/24 23:10 08/11/24 16:25 Meloxicam 7.5 Mg Tablet PO 7.5 mg BID PRN Administration joint pain Metoclopramide HCl 10 mg 08/05/24 12:50 08/10/24 18:18 Metoclopramide Hcl Inj 10 Mg/2 Ml Vial IV PUSH 10 mg Q6HR PRN Administration nausea Miscellaneous Information 1 each 08/05/24 00:01 Reglan And Zofran Both Active Prn For N/V, Please Clarify When To Give Each XX 09/04/24 00:00 CLARIFY DIAMOND Nicotine 1 patch 08/04/24 09:00 08/12/24 09:16 Nicotine (*Pbkc) 14 Mg Patch TRANSDERM 1 patch DAILY DIAMOND Administration Nicotine Polacrilex 4 mg 08/06/24 23:51 08/07/24 05:53 Nicotine (*Pbkc) 4 Mg Gum PO 4 mg PRN PRN Administration Nicotine Cravings Ondansetron HCl 4 mg 08/03/24 19:36 08/12/24 09:16 Ondansetron Inj 4 Mg/2 Ml Vial IV PUSH 4 mg Q4H PRN Administration Nausea Pantoprazole Sodium 40 mg 08/04/24 09:00 08/12/24 09:10 Pantoprazole 40 Mg Tablet BY MOUTH 40 mg DAILY DIAMOND Administration Polyethylene Glycol 17 gm 08/11/24 21:00 08/12/24 09:10 Polyethylene Glycol 3350 17 Gm Powd.Pack PO 17 gm BID DIAMOND Administration Potassium Chloride 10 meq 08/04/24 08:00 08/12/24 09:10 Potassium Chloride 10 Meq Er Tablet PO 10 meq DAILY@0800 DIAMOND Administration Senna 8.6 mg 08/11/24 16:28 08/12/24 13:45 Sennosides 8.6 Mg Tablet PO 8.6 mg DAILY PRN Administration Constipation Thiamine HCl 300 mg 08/05/24 09:00 08/12/24 09:10 Thiamine Hcl 100 Mg Tablet PO 300 mg QAM DIAMOND Administration Trazodone HCl 50 mg 08/04/24 01:05 08/11/24 20:42 Trazodone Hcl 50 Mg Tablet PO 50 mg HS DIAMOND Administration Radiology Results: ITS Impressions Chest X-Ray 08/05/24 06:18 Impression: Discoid atelectasis or scarring left lung base, otherwise clear lungs. Foot X-Ray 08/06/24 13:36 IMPRESSION: 1. Mild polyarticular osteoarthritis. MRCP 08/09/24 09:53 IMPRESSION: 1. 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 2. Stricture of the common bile duct secondary to pancreatitis with mild intrahepatic biliary duct dilatation and gallbladder distention. Labs Labs: Laboratory Results - last 24 hr 08/12/24 05:28 WBC 11.6 H RBC 3.63 L Hgb 11.0 L Hct 35.6 L MCV 98.1 MCH 30.3 MCHC 30.9 L RDW 17.9 H Plt Count 873 H MPV 8.7 Sodium 139 Potassium 5.0 Chloride 102 Carbon Dioxide 25 Anion Gap 12 BUN 8 L Creatinine 0.83 Estim Creat Clear Calc 92 Estimated GFR > 60 Glucose 108 Calcium 10.3 H Total Bilirubin 0.2 AST 21 ALT 19 Alkaline Phosphatase 185 H Total Protein 7.0 Albumin 4.0
--- NOTE | 2024-08-12 16:09 | P.PNGI_ITS ---
Progress Note: A&P Assessment and Plan (1) Necrotizing pancreatitis: Code(s): K85.91 - Acute pancreatitis with uninfected necrosis, unspecified Status: Acute Assessment and Plan: patient had multiple ERCP at another facility- complex case and MRCP revieweed he is doing better with stable chronic pain and tolerating diet given improvement probably he can go home and then follow-up with his GI doctor at [facility] (he is on the transfer list but bed is not available) he should quit drinking alcohol altogether pain right now is mostly chronic and tolerating low fat diet only mild elevated AP- stable abx discontinued will follow only as needed (2) Dilation of biliary tract: Code(s): K83.8 - Other specified diseases of biliary tract Status: Acute Assessment and Plan: stable from chronic pancreatitis, had multiple ercp at [facility] (3) Alcohol abuse: Code(s): F10.10 - Alcohol abuse, uncomplicated Status: Acute (4) Alcohol withdrawal: Code(s): F10.939 - Alcohol use, unspecified with withdrawal, unspecified Status: Acute (5) Elevated LFTs: Code(s): R79.89 - Other specified abnormal findings of blood chemistry Status: Acute Assessment and Plan: no changes Subjective Date/time seen: 08/12/24 16:09 Interval history: no changes, chronic abdominal pain unchanged and tolerating diet, he is comfortable and walking around the [place] Review of Systems Review of Systems: All systems reviewed & are unremarkable except as noted in HPI and below Exam Const: General: cooperative, no acute distress, anxious and average body habitus Nutritional Appearance: average body habitus Orientation/consciousness: patient oriented x3 HENMT: Head: normal to inspection and normocephalic Eyes: General: appearance normal, both eyes and all related structures Neck: Neck: supple Chest: Chest palpation & inspection: normal inspection of the chest Resp: Effort & Inspection: normal respiratory effort Auscultation: clear to auscultation bilaterally Cardio: Rate: regular rate Rhythm: regular rhythm GI: GI Palp: Yes Soft to palpation and No Guarding due to palpation present (GI) Auscultation: normal bowel sounds Skin: General skin exam: no rashes or lesions noted and wounds noted Neuro: General: patient oriented x3 and moves all extremities Speech: normal speech Extrem: General: no pedal edema Psych: Appearance: grossly normal Mental Status: mental status grossly normal Speech and movement: Normal speech and movement present Affect: Anxious affect present Attitude: cooperative Thought process: Normal thought process present Objective Data Vital Signs Vital Signs: Vital Signs - 24 hr 08/11/24 20:00 08/11/24 20:00 08/11/24 20:00 Temperature 98 F Pulse Rate 84 88 Respiratory Rate 18 Blood Pressure 121/86 Pulse Oximetry 99 Oxygen Delivery Room Air 08/12/24 00:00 08/12/24 00:00 08/12/24 04:00 Temperature 98.1 F Pulse Rate 82 89 87 Respiratory Rate 18 Blood Pressure 122/84 Pulse Oximetry 100 Oxygen Delivery 08/12/24 04:00 08/12/24 07:55 08/12/24 08:00 Temperature 98.2 F 98 F Pulse Rate 87 96 102 H Respiratory Rate 18 16 Blood Pressure 131/95 H 105/79 Pulse Oximetry 99 96 Oxygen Delivery 08/12/24 09:10 08/12/24 12:00 08/12/24 12:00 Temperature 98.1 F Pulse Rate 112 H 97 Respiratory Rate 16 Blood Pressure 108/77 Pulse Oximetry 96 Oxygen Delivery Room Air Intake/Output Intake/Output: Intake & Output 08/09/24 08/10/24 08/11/24 08/12/24 23:59 23:59 23:59 23:59 Intake Total 4590 2130 1250 680 Balance 4590 2130 1250 680 Meds/Results Medications: Active Medications Generic Name Dose Route Start Last Admin Trade Name Freq PRN Reason Stop Dose Admin Hydrocodone Bitart/Acetaminophen 1 tab 08/04/24 13:28 08/11/24 09:25 Hydrocodone/Acetaminophen (*Crx) 5-325 Mg Tablet PO 1 tab Q4H PRN Administration Pain Rated 4-6 Amlodipine Besylate 10 mg 08/04/24 09:00 08/12/24 09:10 Amlodipine Besylate 10 Mg Tablet PO 10 mg DAILY DIAMOND Administration Lipase/Protease/Amylase 1 cap 08/04/24 08:00 08/12/24 12:04 Lipase/Amylase/Protease 12,000 Units Cap PO 1 cap TIDWM DIAMOND Administration Ascorbic Acid 500 mg 08/04/24 09:00 08/12/24 09:10 Ascorbic Acid 500 Mg Tablet PO 500 mg DAILY DIAMOND Administration Calcium Carbonate 200 mg 08/09/24 22:47 08/12/24 04:38 Calcium Carbonate (Tums) 500 Mg (200 Mg Elemental) PO 200 mg Q6H PRN Administration Indigestion Carbamazepine 200 mg 08/03/24 23:10 08/12/24 09:11 Carbamazepine 200 Mg Tablet PO 200 mg Q12HR DIAMOND Administration Chlordiazepoxide HCl 10 mg 08/04/24 13:30 08/12/24 13:44 Chlordiazepoxide (*Crx) 10 Mg Capsule PO 10 mg Q8HR DIAMOND Administration Chlordiazepoxide HCl 25 mg 08/05/24 03:30 08/11/24 16:25 Chlordiazepoxide (*Crx) 25 Mg Capsule PO 25 mg Q6H PRN Administration Withdrawal Docusate Sodium 100 mg 08/11/24 21:00 08/12/24 09:11 Docusate Sodium 100 Mg Capsule PO 100 mg Q12H DIAMOND Administration Duloxetine HCl 30 mg 08/04/24 09:00 08/12/24 09:10 Duloxetine Hcl 30 Mg Capsule.Dr PO 30 mg BID DIAMOND Administration Enoxaparin Sodium 40 mg 08/04/24 09:00 08/12/24 09:16 Enoxaparin 40 Mg/0.4 Ml Syringe SUB-Q 40 mg DAILY DIAMOND Administration Fenofibrate 160 mg 08/04/24 09:00 08/12/24 09:10 Fenofibrate 160 Mg Tablet PO 160 mg DAILY DIAMOND Administration Folic Acid 1 mg 08/04/24 09:00 08/12/24 09:10 Folic Acid 1 Mg Tablet BY MOUTH 1 mg DAILY DIAMOND Administration Gabapentin 300 mg 08/03/24 23:10 08/12/24 13:44 Gabapentin 300 Mg Capsule PO 300 mg Q8HR DIAMOND Administration Hydromorphone HCl 0.5 mg 08/04/24 03:34 08/12/24 09:11 Hydromorphone Hcl Inj (*Crx) 1 Mg/Ml Syr IV PUSH 0.5 mg Q3H PRN Administration Pain Rated 4-6 Hydromorphone HCl 1 mg 08/04/24 03:34 08/12/24 13:51 Hydromorphone Hcl Inj (*Crx) 1 Mg/Ml Syr IV PUSH 1 mg Q3H PRN Administration Pain Rated 7-10 Losartan Potassium 25 mg 08/04/24 09:00 08/12/24 09:10 Losartan Potassium 25 Mg Tablet PO 25 mg DAILY DIAMOND Administration Magnesium Oxide 400 mg 08/04/24 09:00 08/12/24 09:10 Magnesium Oxide 400 Mg Tablet PO 400 mg DAILY DIAMOND Administration Meloxicam 7.5 mg 08/03/24 23:10 08/11/24 16:25 Meloxicam 7.5 Mg Tablet PO 7.5 mg BID PRN Administration joint pain Metoclopramide HCl 10 mg 08/05/24 12:50 08/10/24 18:18 Metoclopramide Hcl Inj 10 Mg/2 Ml Vial IV PUSH 10 mg Q6HR PRN Administration nausea Miscellaneous Information 1 each 08/05/24 00:01 Reglan And Zofran Both Active Prn For N/V, Please Clarify When To Give Each XX 09/04/24 00:00 CLARIFY DIAMOND Nicotine 1 patch 08/04/24 09:00 08/12/24 09:16 Nicotine (*Pbkc) 14 Mg Patch TRANSDERM 1 patch DAILY DIAMOND Administration Nicotine Polacrilex 4 mg 08/06/24 23:51 08/07/24 05:53 Nicotine (*Pbkc) 4 Mg Gum PO 4 mg PRN PRN Administration Nicotine Cravings Ondansetron HCl 4 mg 08/03/24 19:36 08/12/24 09:16 Ondansetron Inj 4 Mg/2 Ml Vial IV PUSH 4 mg Q4H PRN Administration Nausea Pantoprazole Sodium 40 mg 08/04/24 09:00 08/12/24 09:10 Pantoprazole 40 Mg Tablet BY MOUTH 40 mg DAILY DIAMOND Administration Polyethylene Glycol 17 gm 08/11/24 21:00 08/12/24 09:10 Polyethylene Glycol 3350 17 Gm Powd.Pack PO 17 gm BID DIAMOND Administration Potassium Chloride 10 meq 08/04/24 08:00 08/12/24 09:10 Potassium Chloride 10 Meq Er Tablet PO 10 meq DAILY@0800 DIAMOND Administration Senna 8.6 mg 08/11/24 16:28 08/12/24 13:45 Sennosides 8.6 Mg Tablet PO 8.6 mg DAILY PRN Administration Constipation Thiamine HCl 300 mg 08/05/24 09:00 08/12/24 09:10 Thiamine Hcl 100 Mg Tablet PO 300 mg QAM DIAMOND Administration Trazodone HCl 50 mg 08/04/24 01:05 08/11/24 20:42 Trazodone Hcl 50 Mg Tablet PO 50 mg HS DIAMOND Administration Radiology Results: ITS Impressions Chest X-Ray 08/05/24 06:18 Impression: Discoid atelectasis or scarring left lung base, otherwise clear lungs. Foot X-Ray 08/06/24 13:36 IMPRESSION: 1. Mild polyarticular osteoarthritis. MRCP 08/09/24 09:53 IMPRESSION: 1. 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 2. Stricture of the common bile duct secondary to pancreatitis with mild intrahepatic biliary duct dilatation and gallbladder distention. Labs Labs: Laboratory Results - last 24 hr 08/12/24 05:28 WBC 11.6 H RBC 3.63 L Hgb 11.0 L Hct 35.6 L MCV 98.1 MCH 30.3 MCHC 30.9 L RDW 17.9 H Plt Count 873 H MPV 8.7 Sodium 139 Potassium 5.0 Chloride 102 Carbon Dioxide 25 Anion Gap 12 BUN 8 L Creatinine 0.83 Estim Creat Clear Calc 92 Estimated GFR > 60 Glucose 108 Calcium 10.3 H Total Bilirubin 0.2 AST 21 ALT 19 Alkaline Phosphatase 185 H Total Protein 7.0 Albumin 4.0
[2024-08-12] MEDS: MELOXICAM 7.5 MG TABLET PO (18:10)
[2024-08-12] MEDS: traZODone HCL 50 MG TABLET PO (21:12)
[2024-08-13] VITALS (10 sets, daily range): BP systolic 92–136; BP diastolic 60–81; PULSE 77–117; RESP 16–19; TEMP 36.3–36.7; O2SAT 94–99
[2024-08-13] MEDS: ONDANSETRON INJ 4 MG/2 ML VIAL IV PUSH ×4 (05:14→23:18)
[2024-08-13] MEDS: GABAPENTIN 300 MG CAPSULE PO ×3 (05:15→21:22)
[2024-08-13] MEDS: HYDROmorphone HCL INJ (*CRX) 1 MG/ML SYR IV PUSH ×5 (05:15→23:18)
[2024-08-13] MEDS: chlordiazePOXIDE (*CRX) 10 MG CAPSULE PO ×3 (05:15→23:17)
[2024-08-13] MEDS: CALCIUM CARBONATE (TUMS) 500 MG (200 MG ELEMENTAL) PO (06:17)
[2024-08-13 07:54] LABS: Lipase 1370 U/L (23-300)
[2024-08-13] MEDS: polyethylene glycoL 3350 17 GM POWD.PACK PO (09:03)
[2024-08-13] MEDS: DULoxetine HCL 30 MG CAPSULE.DR PO ×2 (09:03→18:28)
[2024-08-13] MEDS: ENOXAPARIN 40 MG/0.4 ML SYRINGE SUB-Q (09:04)
[2024-08-13] MEDS: ASCORBIC ACID 500 MG TABLET PO (09:04)
[2024-08-13] MEDS: NICOTINE (*PBKC) 14 MG PATCH 1 PATCH TRANSDERM (09:04)
[2024-08-13] MEDS: FENOFIBRATE 160 MG TABLET PO (09:04)
[2024-08-13] MEDS: PANTOPRAZOLE 40 MG TABLET BY MOUTH (09:04)
[2024-08-13] MEDS: carBAMazepine 200 MG TABLET PO ×2 (09:04→21:22)
[2024-08-13] MEDS: LIPASE/AMYLASE/PROTEASE 12,000 UNITS CAP 1 CAP PO ×3 (09:04→18:28)
[2024-08-13] MEDS: THIAMINE HCL 100 MG TABLET 300 MG PO (09:04)
[2024-08-13] MEDS: amLODIPine BESYLATE 10 MG TABLET PO (09:05)
[2024-08-13] MEDS: LOSARTAN POTASSIUM 25 MG TABLET PO (09:05)
[2024-08-13] MEDS: DOCUSATE SODIUM 100 MG CAPSULE PO ×2 (09:05→21:23)
[2024-08-13] MEDS: SENNOSIDES 8.6 MG TABLET PO (09:05)
[2024-08-13] MEDS: MAGNESIUM OXIDE 400 MG TABLET PO (09:05)
[2024-08-13] MEDS: FOLIC ACID 1 MG TABLET BY MOUTH (09:05)
[2024-08-13] MEDS: oxyCODONE HCL (*CRX) 5 MG TAB IR PO (12:07)
[2024-08-13] MEDS: busPIRone HCL 5 MG TABLET PO ×2 (12:08→21:23)
--- NOTE | 2024-08-13 14:09 | PM.IMPN ---
Progress Note: A&P Assessment and Plan (1) Acute on chronic pancreatitis: Code(s): K85.90 - Acute pancreatitis without necrosis or infection, unspecified; K86.1 - Other chronic pancreatitis Status: Acute Assessment and Plan: ## acute on chronic exacerbation --> most likely due to alcoholism. -continue IV hydration -Cefepime 2 gram IVPB q 12. --> IV and po analgesia ordered --> trend lipase --1104-->470-->592-->678 advance diet as tolerated 08/08/24: Continue to trend Lipase, today is 528. Unable to advance diet today due to pt's persistent nausea. 08/09: MRCP1. 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 2. Stricture of the common bile duct secondary to pancreatitis with mild intrahepatic biliary duct dilatation and gallbladder distention. Will call Dr. Loya at [facility] to transfer. As per patient the patient had multiple stents that was placed by Dr. Loya and was removed. 08/10/2024:Patient is accepted at [facility]. Accepting physician is 08/12 awaiting bed in [place] (2) Hypertension: Qualifiers: Hypertension type: primary hypertension Qualified Code(s): I10 - Essential (primary) hypertension Code(s): I10 - Essential (primary) hypertension Status: Acute Assessment and Plan: -->Continue blood pressure medications monitor vital signs (3) Alcohol abuse: Code(s): F10.10 - Alcohol abuse, uncomplicated Status: Acute Assessment and Plan: ##chronic alcoholic. -->Librium scheduled -->CIWA protocol -->Thiamine as tolerated -Ativan prn severe agitated -librium 10 mg q8 (4) Tobacco dependence: Code(s): F17.200 - Nicotine dependence, unspecified, uncomplicated Status: Acute Assessment and Plan: ##cigarette smoker --Order nicotine patch -- discussed smoking cessation (5) Open wound of left great toe with damage to nail: Code(s): S91. - Unspecified open wound of left great toe with damage to nail, initial encounter Status: Acute Assessment and Plan: ##unknown cause --> Wound nurse consulted- patient has dry old blood blisters on the end of several toes on both feet. All areas are dry and easily peeled off. Skin underneath is 100% closed, healed, and faye. No wound care needed at this time . - WBC- 8.4. stable wound care rounding (6) Nausea and vomiting: Qualifiers: Vomiting type: unspecified Qualified Code(s): R11.2 - Nausea with vomiting, unspecified Code(s): R11.2 - Nausea with vomiting, unspecified Status: Inactive Assessment and Plan: Ondansetron 4 mg IVP q 4 PRN. Eat slowly as tolerated. D5NS @ 100 ml/hr. some intolerance to low fat diet (7) Constipation: Code(s): K59.00 - Constipation, unspecified Status: Acute Assessment and Plan: Miralax 17 gram PO daily PRN. Add Docusate 100 mg PO q12 PRN. (8) Headache: Code(s): R51.9 - Headache, unspecified Status: Acute Assessment and Plan: Hydrocodone/Acetaminophen 5-325 mg 1 tab PO q 4 PRN. Plan Constipation Dulcolax suppository monitor Subjective Date/time seen: 08/13/24 14:09 Interval history: Comfortable at bedside noted he has not had any bowel movement since 4 days Dulcolax suppository ordered Review of Systems Review of Systems: Severe abdominal pains bilateral toe discomfort. All systems reviewed & are unremarkable except as noted in HPI and below Exam Narrative: General: Chronically ill Respiratory: Lungs are clear to auscultation bilaterally. Cardiovascular: Regular rate and rhythm with S1-S2. Gastrointestinal: soft non tender Skin: Warm and dry. Extremities: No cyanosis, clubbing, or edema. Radial and pedal pulses intact. Neurological: Alert. Cranial nerves 2-12 are grossly intact. No tremors. No gross focal deficits to casual conversation. Psychiatric: Somnolent Const: General: cooperative, no acute distress, anxious, uncomfortable and average body habitus Nutritional Appearance: average body habitus Orientation/consciousness: patient oriented x3 HENMT: Head: normal to inspection and normocephalic Eyes: General: appearance normal, both eyes and all related structures Neck: Neck: normal visual inspection, full ROM, no lymphadenopathy and supple Chest: Chest palpation & inspection: normal inspection of the chest Resp: Effort & Inspection: normal respiratory effort Auscultation: clear to auscultation bilaterally Cardio: Jugular venous distension: no JVD Rate: regular rate Rhythm: regular rhythm Heart sounds: S1 normal heart sound present and S2 normal heart sound present Peripheral pulses: Peripheral pulses 2+ throughout Other: Telemetry- SR 99 GI: Inspection: normal to inspection Auscultation: normal bowel sounds Skin: General skin exam: no rashes or lesions noted and wounds noted Wounds: wounds noted left plantar 5th toe size (Circumferential distal toe including nail and pad, black and dry), malodorous and with surrounding erythema, left plantar 4th toe size (entire base of toe deep purple and tender. ) and malodorous, left plantar 2nd toe size (blister like area on the dorsal aspect of toe, tender to touch) and with surrounding erythema, right posterior 2nd toe size (blister that forms at the distal pad of toe and extends into the pad of foot. ) and with surrounding erythema Other: Patient has dry old blood blisters on the end of several toes on both feet. Healthy closed tissue underneath. Neuro: General: patient oriented x3 and moves all extremities Speech: normal speech Extrem: General: no pedal edema Psych: Appearance: grossly normal Mental Status: mental status grossly normal Speech and movement: Normal speech and movement present Affect: Anxious affect present Attitude: cooperative Thought process: Normal thought process present Insight: Good insight present (Psych) Judgement: Good judgement present (Psych) Objective Data Vital Signs Vital Signs: Vital Signs - 24 hr 08/12/24 16:00 08/12/24 16:00 08/12/24 20:00 Temperature 98.1 F Pulse Rate 94 113 H 102 H Respiratory Rate 16 16 Blood Pressure 104/67 Pulse Oximetry 96 96 Oxygen Delivery Room Air 08/12/24 20:00 08/12/24 21:18 08/13/24 00:00 Temperature 98.0 F Pulse Rate 96 102 H 86 Respiratory Rate 16 Blood Pressure 105/75 Pulse Oximetry 96 Oxygen Delivery 08/13/24 04:00 08/13/24 05:28 08/13/24 08:39 Temperature 97.3 F L Pulse Rate 84 88 Respiratory Rate 16 Blood Pressure 112/78 Pulse Oximetry 96 99 Oxygen Delivery Room Air Intake/Output Intake/Output: Intake & Output 08/10/24 08/11/24 08/12/24 08/13/24 23:59 23:59 23:59 23:59 Intake Total 2130 1250 920 690 Balance 2130 1250 920 690 Meds/Results Medications: Active Medications Generic Name Dose Route Start Last Admin Trade Name Freq PRN Reason Stop Dose Admin Amlodipine Besylate 10 mg 08/04/24 09:00 08/13/24 09:05 Amlodipine Besylate 10 Mg Tablet PO 10 mg DAILY DIAMOND Administration Lipase/Protease/Amylase 1 cap 08/04/24 08:00 08/13/24 12:07 Lipase/Amylase/Protease 12,000 Units Cap PO 1 cap TIDWM DIAMOND Administration Ascorbic Acid 500 mg 08/04/24 09:00 08/13/24 09:04 Ascorbic Acid 500 Mg Tablet PO 500 mg DAILY DIAMOND Administration Buspirone HCl 5 mg 08/13/24 10:30 08/13/24 12:08 Buspirone Hcl 5 Mg Tablet PO 5 mg Q12HR DIAMOND Administration Calcium Carbonate 200 mg 08/09/24 22:47 08/13/24 06:17 Calcium Carbonate (Tums) 500 Mg (200 Mg Elemental) PO 200 mg Q6H PRN Administration Indigestion Carbamazepine 200 mg 08/03/24 23:10 08/13/24 09:04 Carbamazepine 200 Mg Tablet PO 200 mg Q12HR DIAMOND Administration Chlordiazepoxide HCl 10 mg 08/04/24 13:30 08/13/24 05:15 Chlordiazepoxide (*Crx) 10 Mg Capsule PO 10 mg Q8HR DIAMOND Administration Chlordiazepoxide HCl 25 mg 08/05/24 03:30 08/11/24 16:25 Chlordiazepoxide (*Crx) 25 Mg Capsule PO 25 mg Q6H PRN Administration Withdrawal Docusate Sodium 100 mg 08/11/24 21:00 08/13/24 09:05 Docusate Sodium 100 Mg Capsule PO 100 mg Q12H DIAMOND Administration Duloxetine HCl 30 mg 08/04/24 09:00 08/13/24 09:03 Duloxetine Hcl 30 Mg Capsule.Dr PO 30 mg BID DIAMOND Administration Enoxaparin Sodium 40 mg 08/04/24 09:00 08/13/24 09:04 Enoxaparin 40 Mg/0.4 Ml Syringe SUB-Q 40 mg DAILY DIAMOND Administration Fenofibrate 160 mg 08/04/24 09:00 08/13/24 09:04 Fenofibrate 160 Mg Tablet PO 160 mg DAILY DIAMOND Administration Folic Acid 1 mg 08/04/24 09:00 08/13/24 09:05 Folic Acid 1 Mg Tablet BY MOUTH 1 mg DAILY DIAMOND Administration Gabapentin 300 mg 08/03/24 23:10 08/13/24 05:15 Gabapentin 300 Mg Capsule PO 300 mg Q8HR DIAMOND Administration Hydromorphone HCl 1 mg 08/04/24 03:34 08/13/24 09:09 Hydromorphone Hcl Inj (*Crx) 1 Mg/Ml Syr IV PUSH 1 mg Q3H PRN Administration Pain Rated 7-10 Losartan Potassium 25 mg 08/04/24 09:00 08/13/24 09:05 Losartan Potassium 25 Mg Tablet PO 25 mg DAILY DIAMOND Administration Magnesium Oxide 400 mg 08/04/24 09:00 08/13/24 09:05 Magnesium Oxide 400 Mg Tablet PO 400 mg DAILY DIAMOND Administration Meloxicam 7.5 mg 08/03/24 23:10 08/12/24 18:10 Meloxicam 7.5 Mg Tablet PO 7.5 mg BID PRN Administration joint pain Metoclopramide HCl 10 mg 08/05/24 12:50 08/10/24 18:18 Metoclopramide Hcl Inj 10 Mg/2 Ml Vial IV PUSH 10 mg Q6HR PRN Administration nausea Miscellaneous Information 1 each 08/05/24 00:01 Reglan And Zofran Both Active Prn For N/V, Please Clarify When To Give Each XX 09/04/24 00:00 CLARIFY [facility] Miscellaneous Information 1 each 08/13/24 00:01 Chlorodiazepoxide Will Be Stopped 3-19 If Not Renewed XX 09/12/24 00:00 CLARIFY [facility] Nicotine 1 patch 08/04/24 09:00 08/13/24 09:04 Nicotine (*Pbkc) 14 Mg Patch TRANSDERM 1 patch DAILY DIAMOND Administration Nicotine Polacrilex 4 mg 08/06/24 23:51 08/07/24 05:53 Nicotine (*Pbkc) 4 Mg Gum PO 4 mg PRN PRN Administration Nicotine Cravings Ondansetron HCl 4 mg 08/03/24 19:36 08/13/24 09:10 Ondansetron Inj 4 Mg/2 Ml Vial IV PUSH 4 mg Q4H PRN Administration Nausea Oxycodone HCl 5 mg 08/13/24 10:29 08/13/24 12:07 Oxycodone Hcl (*Crx) 5 Mg Tab Ir PO 5 mg Q4H PRN Administration Pain Rated 4-6 Pantoprazole Sodium 40 mg 08/04/24 09:00 08/13/24 09:04 Pantoprazole 40 Mg Tablet BY MOUTH 40 mg DAILY DIAMOND Administration Polyethylene Glycol 17 gm 08/11/24 21:00 08/13/24 09:03 Polyethylene Glycol 3350 17 Gm Powd.Pack PO 17 gm BID DIAMOND Administration Potassium Chloride 10 meq 08/04/24 08:00 08/13/24 09:03 Potassium Chloride 10 Meq Er Tablet PO Not Given DAILY@0800 DIAMOND Senna 8.6 mg 08/11/24 16:28 08/13/24 09:05 Sennosides 8.6 Mg Tablet PO 8.6 mg DAILY PRN Administration Constipation Thiamine HCl 300 mg 08/05/24 09:00 08/13/24 09:04 Thiamine Hcl 100 Mg Tablet PO 300 mg QAM DIAMOND Administration Trazodone HCl 50 mg 08/04/24 01:05 08/12/24 21:12 Trazodone Hcl 50 Mg Tablet PO 50 mg HS DIAMOND Administration Radiology Results: ITS Impressions Chest X-Ray 08/05/24 06:18 Impression: Discoid atelectasis or scarring left lung base, otherwise clear lungs. Foot X-Ray 08/06/24 13:36 IMPRESSION: 1. Mild polyarticular osteoarthritis. MRCP 08/09/24 09:53 IMPRESSION: 1. 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 2. Stricture of the common bile duct secondary to pancreatitis with mild intrahepatic biliary duct dilatation and gallbladder distention. Labs Labs: Laboratory Results - last 24 hr 08/13/24 06:28 Lipase 1370 H Quality VTE Prophylaxis VTE prophylaxis: pharmacologic ordered
[2024-08-13] MEDS: BISACODYL 10 MG SUPPOSITORY RECTAL (14:19)
[2024-08-13] MEDS: METOCLOPRAMIDE HCL INJ 10 MG/2 ML VIAL IV PUSH (18:28)
[2024-08-13] MEDS: traZODone HCL 50 MG TABLET PO (21:23)
[2024-08-14] VITALS (8 sets, daily range): BP systolic 94–115; BP diastolic 58–82; PULSE 70–89; RESP 14–20; TEMP 36.3–36.6; O2SAT 96–99
[2024-08-14] MEDS: GABAPENTIN 300 MG CAPSULE PO ×3 (05:09→21:26)
[2024-08-14] MEDS: HYDROmorphone HCL INJ (*CRX) 1 MG/ML SYR IV PUSH ×5 (05:10→21:38)
[2024-08-14] MEDS: CALCIUM CARBONATE (TUMS) 500 MG (200 MG ELEMENTAL) PO ×3 (06:24→23:07)
[2024-08-14 06:36] LABS: Basophils Absolute Auto 0.1 K/mm3 (0.0-0.1); Basophils Percent Auto 1.4 % (0.2-1.2); Eosinophils Absolute Auto 0.4 K/mm3 (0-0.3); Eosinophils Percent Auto 3.9 % (0-4.4); Hematocrit 32.3 % (42.0-52.0); Hemoglobin 10.1 g/dL (14.0-18.0); Immature Granulocyte Absolute 0.14 K/mm3 (0.00-0.031); Immature Granulocyte Percent A 1.5 % (0-0.5); Lymphocytes Absolute Auto 2.46 K/mm3 (0.9-3.2); Lymphocytes Percent Auto 26.9 % (18.3-44.2); Mean Corpuscular HGB Conc 31.3 g/dl (32-36); Mean Corpuscular Hemoglobin 29.6 pg (26-34); Mean Corpuscular Volume 94.7 fl (80-100); Mean Platelet Volume 8.5 fl (7.4-10.4); Monocytes Absolute Auto 1.1 K/mm3 (0.1-0.6); Monocytes Percent Auto 11.6 % (2.6-8.5); Neutrophils Percent Auto 54.7 % (45.5-73.1); Platelet Count Result 861 k/mm3 (150-375); Red Blood Count 3.41 M/mm3 (4.6-6.20); Red Cell Distribution Width 17.9 % (11.5-14.5); White Blood Count 9.1 K/mm3 (4.5-10.0)
[2024-08-14 06:49] LABS: Alanine Aminotransferase 15 U/L (6-50); Albumin Level 3.6 g/dL (3.5-5.1); Alkaline Phosphatase 130 U/L (38-126); Anion Gap 8 mmol/L (4-12); Aspartate Amino Transferase 20 U/L (17-59); Bilirubin,Total 0.1 mg/dL (0.2-1.3); Blood Urea Nitrogen 11 mg/dL (9-20); Calcium 9.2 mg/dL (8.4-10.2); Carbon Dioxide 28 mmol/L (22-30); Chloride 97 mmol/L (98-107); Estimated CRCL calculation 65 ml/min; Estimated Glomerular Filt Rate > 60; Glucose 90 mg/dL (65-110); Magnesium 2.1 mg/dL (1.6-2.3); Potassium 4.1 mmol/L (3.4-5.0); Sodium 133 mmol/L (137-145)
[2024-08-14 08:25] LABS: Iron 30 ug/dL (49-181)
[2024-08-14 08:38] LABS: Percent Iron Saturation 13 % (20-50)
[2024-08-14] MEDS: NICOTINE (*PBKC) 14 MG PATCH 1 PATCH TRANSDERM (09:35)
[2024-08-14] MEDS: MELOXICAM 7.5 MG TABLET PO ×2 (09:35→16:47)
[2024-08-14] MEDS: ENOXAPARIN 40 MG/0.4 ML SYRINGE SUB-Q (09:35)
[2024-08-14] MEDS: LOSARTAN POTASSIUM 25 MG TABLET PO (09:36)
[2024-08-14] MEDS: amLODIPine BESYLATE 10 MG TABLET PO (09:36)
[2024-08-14] MEDS: chlordiazePOXIDE (*CRX) 10 MG CAPSULE PO ×2 (09:36→21:27)
[2024-08-14] MEDS: ASCORBIC ACID 500 MG TABLET PO (09:36)
[2024-08-14] MEDS: polyethylene glycoL 3350 17 GM POWD.PACK PO ×2 (09:36→16:46)
[2024-08-14] MEDS: DOCUSATE SODIUM 100 MG CAPSULE PO ×2 (09:38→21:26)
[2024-08-14] MEDS: DULoxetine HCL 30 MG CAPSULE.DR PO ×2 (09:38→16:47)
[2024-08-14] MEDS: busPIRone HCL 5 MG TABLET PO ×2 (09:38→21:26)
[2024-08-14] MEDS: POTASSIUM CHLORIDE 10 MEQ ER TABLET PO (09:38)
[2024-08-14] MEDS: carBAMazepine 200 MG TABLET PO ×2 (09:38→21:26)
[2024-08-14] MEDS: FENOFIBRATE 160 MG TABLET PO (09:38)
[2024-08-14] MEDS: MAGNESIUM OXIDE 400 MG TABLET PO (09:38)
[2024-08-14] MEDS: LIPASE/AMYLASE/PROTEASE 12,000 UNITS CAP 1 CAP PO ×3 (09:38→16:47)
[2024-08-14] MEDS: THIAMINE HCL 100 MG TABLET 300 MG PO (09:39)
[2024-08-14] MEDS: PANTOPRAZOLE 40 MG TABLET BY MOUTH (09:39)
[2024-08-14] MEDS: FOLIC ACID 1 MG TABLET BY MOUTH (09:39)
[2024-08-14] MEDS: ONDANSETRON INJ 4 MG/2 ML VIAL IV PUSH ×3 (09:51→21:38)
--- NOTE | 2024-08-14 10:37 | P.PNIM_ITS ---
Progress Note: A&P Assessment and Plan (1) Acute on chronic pancreatitis: Code(s): K85.90 - Acute pancreatitis without necrosis or infection, unspecified; K86.1 - Other chronic pancreatitis Status: Acute Assessment and Plan: ## acute on chronic exacerbation --> most likely due to alcoholism. -continue IV hydration -Cefepime 2 gram IVPB q 12. --> IV and po analgesia ordered --> trend lipase --1104-->470-->592-->678 advance diet as tolerated 08/08/24: * Continue to trend Lipase, today is 528. * Unable to advance diet today due to pt's persistent nausea. 08/09: MRCP1. 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 2. Stricture of the common bile duct secondary to pancreatitis with mild intrahepatic biliary duct dilatation and gallbladder distention. Will call Dr. Loya at [facility] to transfer. As per patient the patient had multiple stents that was placed by Dr. Loya and was removed. 08/10/2024:Patient is accepted at [facility]. Accepting physician is 08/12 awaiting bed in [place] (2) Hypertension: Qualifiers: Hypertension type: primary hypertension Qualified Code(s): I10 - Essential (primary) hypertension Code(s): I10 - Essential (primary) hypertension Status: Acute Assessment and Plan: -->Continue blood pressure medications monitor vital signs (3) Alcohol abuse: Code(s): F10.10 - Alcohol abuse, uncomplicated Status: Acute Assessment and Plan: ##chronic alcoholic. -->Librium scheduled -->CIWA protocol -->Thiamine as tolerated -Ativan prn severe agitated -librium 10 mg q8 (4) Tobacco dependence: Code(s): F17.200 - Nicotine dependence, unspecified, uncomplicated Status: Acute Assessment and Plan: ##cigarette smoker --Order nicotine patch -- discussed smoking cessation (5) Open wound of left great toe with damage to nail: Code(s): S91.A - Unspecified open wound of left great toe with damage to nail, initial encounter Status: Acute Assessment and Plan: ##unknown cause --> Wound nurse consulted- patient has dry old blood blisters on the end of several toes on both feet. All areas are dry and easily peeled off. Skin underneath is 100% closed, healed, and faye. No wound care needed at this time . - WBC- 8.4. stable wound care rounding (6) Nausea and vomiting: Qualifiers: Vomiting type: unspecified Qualified Code(s): R11.2 - Nausea with vomi ting, unspecified Code(s): R11.2 - Nausea with vomiting, unspecified Status: Inactive Assessment and Plan: * Ondansetron 4 mg IVP q 4 PRN. * Eat slowly as tolerated. * D5NS @ 100 ml/hr. some intolerance to low fat diet (7) Constipation: Code(s): K59.00 - Constipation, unspecified Status: Acute Assessment and Plan: * Miralax 17 gram PO daily PRN. * Add Docusate 100 mg PO q12 PRN. * s/p Dulcolax suppository (8) Headache: Code(s): R51.9 - Headache, unspecified Status: Acute Assessment and Plan: * Hydrocodone/Acetaminophen 5-325 mg 1 tab PO q 4 PRN. Plan Anemia likely Iron deficiency Hb 10.1 and iron panel pending Plts 861 monitor h and h DVT prophylaxis on Sq Lovenox Subjective Date/time seen: 08/14/24 10:37 Interval history: Comfortable at bedside Hb 10.1 adn plts 861, awaiting iron panel Review of Systems Review of Systems: Severe abdominal pains bilateral toe discomfort. All systems reviewed & are unremarkable except as noted in HPI and below Exam Narrative: General: Chronically ill Respiratory: Lungs are clear to auscultation bilaterally. Cardiovascular: Regular rate and rhythm with S1-S2. Gastrointestinal: soft non tender Skin: Warm and dry. Extremities: No cyanosis, clubbing, or edema. Radial and pedal pulses intact. Neurological: Alert. Cranial nerves 2-12 are grossly intact. No tremors. No gross focal deficits to casual conversation. Psychiatric: Somnolent Const: General: cooperative, no acute distress, anxious, uncomfortable and average body habitus Nutritional Appearance: average body habitus Orientation/consciousness: patient oriented x3 HENMT: Head: normal to inspection and normocephalic Eyes: General: appearance normal, both eyes and all related structures Neck: Neck: normal visual inspection, full ROM, no lymphadenopathy and supple Chest: Chest palpation & inspection: normal inspection of the chest Resp: Effort & Inspection: normal respiratory effort Auscultation: clear to auscultation bilaterally Cardio: Jugular venous distension: no JVD Rate: regular rate Rhythm: regular rhythm Heart sounds: S1 normal heart sound present and S2 normal heart sound present Peripheral pulses: Peripheral pulses 2+ throughout Other: Telemetry- SR 99 GI: Inspection: normal to inspection Auscultation: normal bowel sounds Skin: General skin exam: no rashes or lesions noted and wounds noted Wounds: wounds noted left plantar 5th toe size (Circumferential distal toe including nail and pad, black and dry), malodorous and with surrounding erythema, left plantar 4th toe size (entire base of toe deep purple and tender. ) and malodorous, left plantar 2nd toe size (blister like area on the dorsal aspect of toe, tender to touch) and with surrounding erythema, right posterior 2nd toe size (blister that forms at the distal pad of toe and extends into the pad of foot. ) and with surrounding erythema Other: Patient has dry old blood blisters on the end of several toes on both feet. Healthy closed tissue underneath. Neuro: General: patient oriented x3 and moves all extremities Speech: normal speech Extrem: General: no pedal edema Psych: Appearance: grossly normal Mental Status: mental status grossly normal Speech and movement: Normal speech and movement present Affect: Anxious affect present Attitude: cooperative Thought process: Normal thought process present Insight: Good insight present (Psych) Judgement: Good judgement present (Psych) Objective Data Vital Signs Vital Signs: Vital Signs - 24 hr 08/13/24 12:00 08/13/24 14:00 08/13/24 16:00 Temperature 97.6 F Pulse Rate 117 H 97 106 H Respiratory Rate 16 Blood Pressure 136/81 Pulse Oximetry 99 Oxygen Delivery 08/13/24 20:00 08/13/24 20:00 08/13/24 21:39 Temperature 98.0 F Pulse Rate 94 77 Respiratory Rate 19 Blood Pressure 92/60 L Pulse Oximetry 94 Oxygen Delivery Room Air 08/14/24 00:00 08/14/24 04:00 08/14/24 06:00 Temperature 97.4 F L Pulse Rate 86 77 88 Respiratory Rate 20 Blood Pressure 94/65 L Pulse Oximetry 96 Oxygen Delivery Intake/Output Intake/Output: Intake & Output 08/11/24 08/12/24 08/13/2425 23:59 23:59 23:59 23:59 Intake Total 1247 190 9815 1500 Balance 9148 490 3180 1500 Meds/Results Medications: Active Medications Generic Name Dose Route Start Last Admin Trade Name Freq PRN Reason Stop Dose Admin Amlodipine Besylate 10 mg 08/04/24 09:00 08/14/24 09:36 Amlodipine Besylate 10 Mg Tablet PO 10 mg DAILY DIAMOND Administration Lipase/Protease/Amylase 1 cap 08/04/24 08:00 08/14/24 09:38 Lipase/Amylase/Protease 12,000 Units Cap PO 1 cap TIDWM DIAMOND Administration Ascorbic Acid 500 mg 08/04/24 09:00 08/14/24 09:36 Ascorbic Acid 500 Mg Tablet PO 500 mg DAILY DIAMOND Administration Buspirone HCl 5 mg 08/13/24 10:30 08/14/24 09:38 Buspirone Hcl 5 Mg Tablet PO 5 mg Q12HR DIAMOND Administration Calcium Carbonate 200 mg 08/09/24 22:47 08/14/24 06:24 Calcium Carbonate (Tums) 500 Mg (200 Mg Elemental) PO 200 mg Q6H PRN Administration Indigestion Carbamazepine 200 mg 08/03/24 23:10 08/14/24 09:38 Carbamazepine 200 Mg Tablet PO 200 mg Q12HR DIAMOND Administration Chlordiazepoxide HCl 10 mg 08/14/24 00:00 08/14/24 09:36 Chlordiazepoxide (*Crx) 10 Mg Capsule PO 10 mg Q12HR DIAMOND Administration Docusate Sodium 100 mg 08/11/24 21:00 08/14/24 09:38 Docusate Sodium 100 Mg Capsule PO 100 mg Q12H DIAMOND Administration Duloxetine HCl 30 mg 08/04/24 09:00 08/14/24 09:38 Duloxetine Hcl 30 Mg Capsule.Dr PO 30 mg BID DIAMOND Administration Enoxaparin Sodium 40 mg 08/04/24 09:00 08/14/24 09:35 Enoxaparin 40 Mg/0.4 Ml Syringe SUB-Q 40 mg DAILY DIAMOND Administration Fenofibrate 160 mg 08/04/24 09:00 08/14/24 09:38 Fenofibrate 160 Mg Tablet PO 160 mg DAILY DIAMOND Administration Folic Acid 1 mg 08/04/24 09:00 08/14/24 09:39 Folic Acid 1 Mg Tablet BY MOUTH 1 mg DAILY DIAMOND Administration Gabapentin 300 mg 08/03/24 23:10 08/14/24 05:09 Gabapentin 300 Mg Capsule PO 300 mg Q8HR DIAMOND Administration Hydromorphone HCl 1 mg 08/04/24 03:34 08/14/24 09:35 Hydromorphone Hcl Inj (*Crx) 1 Mg/Ml Syr IV PUSH 1 mg Q3H PRN Administration Pain Rated 7-10 Losartan Potassium 25 mg 08/04/24 09:00 08/14/24 09:36 Losartan Potassium 25 Mg Tablet PO 25 mg DAILY DIAMOND Administration Magnesium Oxide 400 mg 08/04/24 09:00 08/14/24 09:38 Magnesium Oxide 400 Mg Tablet PO 400 mg DAILY DIAMOND Administration Meloxicam 7.5 mg 08/03/24 23:10 08/14/24 09:35 Meloxicam 7.5 Mg Tablet PO 7.5 mg BID PRN Administration joint pain Metoclopramide HCl 10 mg 08/05/24 12:50 08/13/24 18:28 Metoclopramide Hcl Inj 10 Mg/2 Ml Vial IV PUSH 10 mg Q6HR PRN Administration nausea Miscellaneous Information 1 each 08/05/24 00:01 Reglan And Zofran Both Active Prn For N/V, Please Clarify When To Give Each XX 09/04/24 00:00 CLARIFY DIAMOND Nicotine 1 patch 08/04/24 09:00 08/14/24 09:35 Nicotine (*Pbkc) 14 Mg Patch TRANSDERM 1 patch DAILY DIAMOND Administration Nicotine Polacrilex 4 mg 08/06/24 23:51 08/07/24 05:53 Nicotine (*Pbkc) 4 Mg Gum PO 4 mg PRN PRN Administration Nicotine Cravings Ondansetron HCl 4 mg 08/03/24 19:36 08/14/24 09:51 Ondansetron Inj 4 Mg/2 Ml Vial IV PUSH 4 mg Q4H PRN Administration Nausea Oxycodone HCl 5 mg 08/13/24 10:29 08/13/24 12:07 Oxycodone Hcl (*Crx) 5 Mg Tab Ir PO 5 mg Q4H PRN Administration Pain Rated 4-6 Pantoprazole Sodium 40 mg 08/04/24 09:00 08/14/24 09:39 Pantoprazole 40 Mg Tablet BY MOUTH 40 mg DAILY DIAMOND Administration Polyethylene Glycol 17 gm 08/11/24 21:00 08/14/24 09:36 Polyethylene Glycol 3350 17 Gm Powd.Pack PO 17 gm BID DIAMOND Administration Potassium Chloride 10 meq 08/04/24 08:00 08/14/24 09:38 Potassium Chloride 10 Meq Er Tablet PO 10 meq DAILY@0800 DIAMOND Administration Senna 8.6 mg 08/11/24 16:28 08/13/24 09:05 Sennosides 8.6 Mg Tablet PO 8.6 mg DAILY PRN Administration Constipation Thiamine HCl 300 mg 08/05/24 09:00 08/14/24 09:39 Thiamine Hcl 100 Mg Tablet PO 300 mg QAM DIAMOND Administration Trazodone HCl 50 mg 08/04/24 01:05 08/13/24 21:23 Trazodone Hcl 50 Mg Tablet PO 50 mg HS DIAMOND Administration Radiology Results: ITS Impressions Chest X-Ray 08/05/24 06:18 Impression: Discoid atelectasis or scarring left lung base, otherwise clear lungs. Foot X-Ray 08/06/24 13:36 IMPRESSION: 1. Mild polyarticular osteoarthritis. MRCP 08/09/24 09:53 IMPRESSION: 1. 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 2. Stricture of the common bile duct secondary to pancreatitis with mild intrahepatic biliary duct dilatation and gallbladder distention. Labs Labs: Laboratory Results - last 24 hr 08/14/24 08/14/24 06:08 06:09 WBC 9.1 RBC 3.41 L Hgb 10.1 L Hct 32.3 L MCV 94.7 MCH 29.6 MCHC 31.3 L RDW 17.9 H Plt Count 861 H MPV 8.5 Immature Gran % (Auto) 1.5 H Neut % (Auto) 54.7 Lymph % (Auto) 26.9 Dane % (Auto) 11.6 H Eos % (Auto) 3.9 Baso % (Auto) 1.4 H Lymph # (Auto) 2.46 Dane # (Auto) 1.1 H Eos # (Auto) 0.4 H Baso # (Auto) 0.1 Abs Immat Gran (auto) 0.14 H Absolute Neuts (auto) 5.0 Absolute Nucleated RBC 0.000 Nucleated RBC % 0.0 Sodium 133 L Potassium 4.1 Chloride 97 L Carbon Dioxide 28 Anion Gap 8 BUN 11 Creatinine 1.23 Estim Creat Clear Calc 65 Estimated GFR > 60 Glucose 90 Calcium 9.2 Magnesium 2.1 Iron 30 L TIBC 237 L Ferritin 128.00 Total Bilirubin 0.1 L AST 20 ALT 15 Alkaline Phosphatase 130 H Total Protein 7.0 Albumin 3.6 Quality VTE Prophylaxis VTE prophylaxis: pharmacologic ordered
[2024-08-14] MEDS: traZODone HCL 50 MG TABLET PO (21:26)
[2024-08-14] MEDS: oxyCODONE HCL (*CRX) 5 MG TAB IR PO (23:03)
[2024-08-15] VITALS (7 sets, daily range): BP systolic 103–105; BP diastolic 72–75; PULSE 92–111; RESP 16–18; TEMP 36.9–37; O2SAT 96–98
[2024-08-15] MEDS: HYDROmorphone HCL INJ (*CRX) 1 MG/ML SYR IV PUSH ×6 (01:19→20:04)
[2024-08-15] MEDS: ONDANSETRON INJ 4 MG/2 ML VIAL IV PUSH ×3 (01:26→16:50)
[2024-08-15] MEDS: METOCLOPRAMIDE HCL INJ 10 MG/2 ML VIAL IV PUSH (03:49)
[2024-08-15] MEDS: GABAPENTIN 300 MG CAPSULE PO ×3 (06:07→20:05)
[2024-08-15 06:27] LABS: Basophils Absolute Auto 0.1 K/mm3 (0.0-0.1); Basophils Percent Auto 0.7 % (0.2-1.2); Eosinophils Absolute Auto 0.2 K/mm3 (0-0.3); Eosinophils Percent Auto 1.8 % (0-4.4); Hematocrit 30.2 % (42.0-52.0); Hemoglobin 9.7 g/dL (14.0-18.0); Immature Granulocyte Absolute 0.07 K/mm3 (0.00-0.031); Immature Granulocyte Percent A 0.5 % (0-0.5); Lymphocytes Absolute Auto 0.98 K/mm3 (0.9-3.2); Lymphocytes Percent Auto 7.7 % (18.3-44.2); Mean Corpuscular HGB Conc 32.1 g/dl (32-36); Mean Corpuscular Hemoglobin 29.8 pg (26-34); Mean Corpuscular Volume 92.6 fl (80-100); Mean Platelet Volume 8.5 fl (7.4-10.4); Monocytes Absolute Auto 1.1 K/mm3 (0.1-0.6); Monocytes Percent Auto 8.8 % (2.6-8.5); Neutrophils Absolute Auto 10.3 K/mm3 (1.3-6.7); Neutrophils Percent Auto 80.5 % (45.5-73.1); Platelet Count Result 868 k/mm3 (150-375); Red Blood Count 3.26 M/mm3 (4.6-6.20); Red Cell Distribution Width 17.5 % (11.5-14.5); White Blood Count 12.8 K/mm3 (4.5-10.0)
[2024-08-15 06:32] LABS: Alanine Aminotransferase 15 U/L (6-50); Albumin Level 3.8 g/dL (3.5-5.1); Alkaline Phosphatase 138 U/L (38-126); Anion Gap 8 mmol/L (4-12); Aspartate Amino Transferase 22 U/L (17-59); Bilirubin,Total 0.1 mg/dL (0.2-1.3); Blood Urea Nitrogen 9 mg/dL (9-20); Calcium 9.2 mg/dL (8.4-10.2); Carbon Dioxide 29 mmol/L (22-30); Chloride 99 mmol/L (98-107); Estimated CRCL calculation 78 ml/min; Estimated Glomerular Filt Rate > 60; Glucose 117 mg/dL (65-110); Potassium 4.2 mmol/L (3.4-5.0); Sodium 136 mmol/L (137-145)
[2024-08-15 07:11] LABS: Lactic Acid Reflex < 0.5 mmol/L (0.7-2.0)
[2024-08-15] MEDS: MELOXICAM 7.5 MG TABLET PO ×2 (09:29→16:51)
[2024-08-15] MEDS: NICOTINE (*PBKC) 14 MG PATCH 1 PATCH TRANSDERM (09:29)
[2024-08-15] MEDS: amLODIPine BESYLATE 10 MG TABLET PO (09:30)
[2024-08-15] MEDS: DULoxetine HCL 30 MG CAPSULE.DR PO ×2 (09:30→16:51)
[2024-08-15] MEDS: ENOXAPARIN 40 MG/0.4 ML SYRINGE SUB-Q (09:30)
[2024-08-15] MEDS: LIPASE/AMYLASE/PROTEASE 12,000 UNITS CAP 1 CAP PO ×3 (09:30→16:51)
[2024-08-15] MEDS: FENOFIBRATE 160 MG TABLET PO (09:31)
[2024-08-15] MEDS: carBAMazepine 200 MG TABLET PO ×2 (09:31→20:05)
[2024-08-15] MEDS: FOLIC ACID 1 MG TABLET BY MOUTH (09:31)
[2024-08-15] MEDS: MAGNESIUM OXIDE 400 MG TABLET PO (09:31)
[2024-08-15] MEDS: POTASSIUM CHLORIDE 10 MEQ ER TABLET PO (09:31)
[2024-08-15] MEDS: PANTOPRAZOLE 40 MG TABLET BY MOUTH (09:31)
[2024-08-15] MEDS: THIAMINE HCL 100 MG TABLET 300 MG PO (09:31)
[2024-08-15] MEDS: busPIRone HCL 5 MG TABLET PO ×2 (09:31→20:05)
[2024-08-15] MEDS: chlordiazePOXIDE (*CRX) 10 MG CAPSULE PO (09:31)
[2024-08-15] MEDS: ASCORBIC ACID 500 MG TABLET PO (09:31)
[2024-08-15] MEDS: LOSARTAN POTASSIUM 25 MG TABLET PO (09:35)
[2024-08-15] MEDS: IRON SUCROSE COMPLEX 400 MG, IRON SUCROSE COMPLEX 100 MG in SODIUM CHLORIDE 0.9% IV 250 ML 78.57 MG IVPB (11:12)
[2024-08-15] MEDS: oxyCODONE HCL (*CRX) 5 MG TAB IR PO (11:22)
[2024-08-15] MEDS: CALCIUM CARBONATE (TUMS) 500 MG (200 MG ELEMENTAL) PO (16:50)
--- NOTE | 2024-08-15 16:54 | PM.IMPN ---
Progress Note: A&P Assessment and Plan (1) Acute on chronic pancreatitis: Code(s): K85.90 - Acute pancreatitis without necrosis or infection, unspecified; K86.1 - Other chronic pancreatitis Status: Acute Assessment and Plan: ## acute on chronic exacerbation --> most likely due to alcoholism. -continue IV hydration -Cefepime 2 gram IVPB q 12. --> IV and po analgesia ordered --> trend lipase --1104-->470-->592-->678 advance diet as tolerated 08/08/24: Continue to trend Lipase, today is 528. Unable to advance diet today due to pt's persistent nausea. 08/09: MRCP1. 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 2. Stricture of the common bile duct secondary to pancreatitis with mild intrahepatic biliary duct dilatation and gallbladder distention. Patient is accepted at [facility]. Accepting physician is awaiting bed in [place] (2) Hypertension: Qualifiers: Hypertension type: primary hypertension Qualified Code(s): I10 - Essential (primary) hypertension Code(s): I10 - Essential (primary) hypertension Status: Acute Assessment and Plan: -->Continue blood pressure medications monitor vital signs (3) Alcohol abuse: Code(s): F10.10 - Alcohol abuse, uncomplicated Status: Acute Assessment and Plan: ##chronic alcoholic. -->Librium scheduled -->CIWA protocol -->Thiamine as tolerated -Ativan prn severe agitated -tapering off Librium, now on daily (4) Tobacco dependence: Code(s): F17.200 - Nicotine dependence, unspecified, uncomplicated Status: Acute Assessment and Plan: ##cigarette smoker --Order nicotine patch -- discussed smoking cessation (5) Open wound of left great toe with damage to nail: Code(s): S91.202A - Unspecified open wound of left great toe with damage to nail, initial encounter Status: Acute Assessment and Plan: ##unknown cause --> Wound nurse consulted- patient has dry old blood blisters on the end of several toes on both feet. All areas are dry and easily peeled off. Skin underneath is 100% closed, healed, and faye. No wound care needed at this time . - WBC- 8.4. stable wound care rounding (6) Nausea and vomiting: Qualifiers: Vomiting type: unspecified Qualified Code(s): R11.2 - Nausea with vomiting, unspecified Code(s): R11.2 - Nausea with vomiting, unspecified Status: Inactive Assessment and Plan: Ondansetron 4 mg IVP q 4 PRN. Eat slowly as tolerated. monitor some intolerance to low fat diet (7) Constipation: Code(s): K59.00 - Constipation, unspecified Status: Acute Assessment and Plan: Miralax 17 gram PO daily PRN. Add Docusate 100 mg PO q12 PRN. s/p Dulcolax suppository (8) Headache: Code(s): R51.9 - Headache, unspecified Status: Acute Assessment and Plan: Hydrocodone/Acetaminophen 5-325 mg 1 tab PO q 4 PRN. Plan Iron deficiency anemia Hb 9.7 and Isat 13 Plts 861 IV iron 500/1000 monitor h and h DVT prophylaxis on Sq Lovenox Subjective Date/time seen: 08/15/24 16:54 Interval history: Comfortable at bedside started on IV iron Review of Systems Review of Systems: Severe abdominal pains bilateral toe discomfort. All systems reviewed & are unremarkable except as noted in HPI and below Exam Narrative: General: Chronically ill Respiratory: Lungs are clear to auscultation bilaterally. Cardiovascular: Regular rate and rhythm with S1-S2. Gastrointestinal: soft non tender Skin: Warm and dry. Extremities: No cyanosis, clubbing, or edema. Radial and pedal pulses intact. Neurological: Alert. Cranial nerves 2-12 are grossly intact. No tremors. No gross focal deficits to casual conversation. Psychiatric: Somnolent Const: General: cooperative, no acute distress, anxious, uncomfortable and average body habitus Nutritional Appearance: average body habitus Orientation/consciousness: patient oriented x3 HENMT: Head: normal to inspection and normocephalic Eyes: General: appearance normal, both eyes and all related structures Neck: Neck: normal visual inspection, full ROM, no lymphadenopathy and supple Chest: Chest palpation & inspection: normal inspection of the chest Resp: Effort & Inspection: normal respiratory effort Auscultation: clear to auscultation bilaterally Cardio: Jugular venous distension: no JVD Rate: regular rate Rhythm: regular rhythm Heart sounds: S1 normal heart sound present and S2 normal heart sound present Peripheral pulses: Peripheral pulses 2+ throughout Other: Telemetry- SR 99 GI: Inspection: normal to inspection Auscultation: normal bowel sounds Skin: General skin exam: no rashes or lesions noted and wounds noted Wounds: wounds noted left plantar 5th toe size (Circumferential distal toe including nail and pad, black and dry), malodorous and with surrounding erythema, left plantar 4th toe size (entire base of toe deep purple and tender. ) and malodorous, left plantar 2nd toe size (blister like area on the dorsal aspect of toe, tender to touch) and with surrounding erythema, right posterior 2nd toe size (blister that forms at the distal pad of toe and extends into the pad of foot. ) and with surrounding erythema Other: Patient has dry old blood blisters on the end of several toes on both feet. Healthy closed tissue underneath. Neuro: General: patient oriented x3 and moves all extremities Speech: normal speech Extrem: General: no pedal edema Psych: Appearance: grossly normal Mental Status: mental status grossly normal Speech and movement: Normal speech and movement present Affect: Anxious affect present Attitude: cooperative Thought process: Normal thought process present Insight: Good insight present (Psych) Judgement: Good judgement present (Psych) Objective Data Vital Signs Vital Signs: Vital Signs - 24 hr 08/14/24 21:11 08/14/24 21:18 08/14/24 21:48 Temperature 97.8 F Pulse Rate 83 84 Respiratory Rate 16 Blood Pressure 100/58 L Pulse Oximetry 99 Oxygen Delivery Room Air 08/15/24 00:00 08/15/24 04:00 08/15/24 04:39 Temperature 98.4 F Pulse Rate 109 H 111 H 98 Respiratory Rate 16 Blood Pressure 103/75 Pulse Oximetry 98 Oxygen Delivery 08/15/24 08:00 08/15/24 14:00 Temperature 98.6 F Pulse Rate 99 Respiratory Rate 18 Blood Pressure 105/72 Pulse Oximetry 96 Oxygen Delivery Room Air Intake/Output Intake/Output: Intake & Output 08/12/24 08/13/24 08/14/24 08/15/24 23:59 23:59 23:59 23:59 Intake Total 920 1170 1740 610 Balance 920 1170 1740 610 Meds/Results Medications: Active Medications Generic Name Dose Route Start Last Admin Trade Name Freq PRN Reason Stop Dose Admin Amlodipine Besylate 10 mg 08/04/24 09:00 08/15/24 09:30 Amlodipine Besylate 10 Mg Tablet PO 10 mg DAILY DIAMOND Administration Lipase/Protease/Amylase 1 cap 08/04/24 08:00 08/15/24 16:51 Lipase/Amylase/Protease 12,000 Units Cap PO 1 cap TIDWM DIAMOND Administration Ascorbic Acid 500 mg 08/04/24 09:00 08/15/24 09:31 Ascorbic Acid 500 Mg Tablet PO 500 mg DAILY DIAMOND Administration Buspirone HCl 5 mg 08/13/24 10:30 08/15/24 09:31 Buspirone Hcl 5 Mg Tablet PO 5 mg Q12HR DIAMOND Administration Calcium Carbonate 200 mg 08/09/24 22:47 08/15/24 16:50 Calcium Carbonate (Tums) 500 Mg (200 Mg Elemental) PO 200 mg Q6H PRN Administration Indigestion Carbamazepine 200 mg 08/03/24 23:10 08/15/24 09:31 Carbamazepine 200 Mg Tablet PO 200 mg Q12HR DIAMOND Administration Chlordiazepoxide HCl 10 mg 08/15/24 09:45 08/15/24 10:29 Chlordiazepoxide (*Crx) 10 Mg Capsule PO Not Given DAILY [facility] Docusate Sodium 100 mg 08/11/24 21:00 08/15/24 09:32 Docusate Sodium 100 Mg Capsule PO Not Given Q12H [facility] Duloxetine HCl 30 mg 08/04/24 09:00 08/15/24 16:51 Duloxetine Hcl 30 Mg Capsule.Dr PO 30 mg BID DIAMOND Administration Enoxaparin Sodium 40 mg 08/04/24 09:00 08/15/24 09:30 Enoxaparin 40 Mg/0.4 Ml Syringe SUB-Q 40 mg DAILY DIAMOND Administration Fenofibrate 160 mg 08/04/24 09:00 08/15/24 09:31 Fenofibrate 160 Mg Tablet PO 160 mg DAILY DIAMOND Administration Folic Acid 1 mg 08/04/24 09:00 08/15/24 09:31 Folic Acid 1 Mg Tablet BY MOUTH 1 mg DAILY DIAMOND Administration Gabapentin 300 mg 08/03/24 23:10 08/15/24 13:49 Gabapentin 300 Mg Capsule PO 300 mg Q8HR DIAMOND Administration Hydromorphone HCl 1 mg 08/04/24 03:34 08/15/24 16:51 Hydromorphone Hcl Inj (*Crx) 1 Mg/Ml Syr IV PUSH 1 mg Q3H PRN Administration Pain Rated 7-10 Losartan Potassium 25 mg 08/04/24 09:00 08/15/24 09:35 Losartan Potassium 25 Mg Tablet PO 25 mg DAILY DIAMOND Administration Magnesium Oxide 400 mg 08/04/24 09:00 08/15/24 09:31 Magnesium Oxide 400 Mg Tablet PO 400 mg DAILY DIAMOND Administration Meloxicam 7.5 mg 08/03/24 23:10 08/15/24 16:51 Meloxicam 7.5 Mg Tablet PO 7.5 mg BID PRN Administration joint pain Metoclopramide HCl 10 mg 08/05/24 12:50 08/15/24 03:49 Metoclopramide Hcl Inj 10 Mg/2 Ml Vial IV PUSH 10 mg Q6HR PRN Administration nausea Miscellaneous Information 1 each 08/05/24 00:01 Reglan And Zofran Both Active Prn For N/V, Please Clarify When To Give Each XX 09/04/24 00:00 CLARIFY DIAMOND Nicotine 1 patch 08/04/24 09:00 08/15/24 09:29 Nicotine (*Pbkc) 14 Mg Patch TRANSDERM 1 patch DAILY DIAMOND Administration Nicotine Polacrilex 4 mg 08/06/24 23:51 08/07/24 05:53 Nicotine (*Pbkc) 4 Mg Gum PO 4 mg PRN PRN Administration Nicotine Cravings Ondansetron HCl 4 mg 08/03/24 19:36 08/15/24 16:50 Ondansetron Inj 4 Mg/2 Ml Vial IV PUSH 4 mg Q4H PRN Administration Nausea Oxycodone HCl 5 mg 08/13/24 10:29 08/15/24 11:22 Oxycodone Hcl (*Crx) 5 Mg Tab Ir PO 5 mg Q4H PRN Administration Pain Rated 4-6 Pantoprazole Sodium 40 mg 08/04/24 09:00 08/15/24 09:31 Pantoprazole 40 Mg Tablet BY MOUTH 40 mg DAILY DIAMOND Administration Polyethylene Glycol 17 gm 08/11/24 21:00 08/15/24 16:52 Polyethylene Glycol 3350 17 Gm Powd.Pack PO Not Given BID DIAMOND Potassium Chloride 10 meq 08/04/24 08:00 08/15/24 09:31 Potassium Chloride 10 Meq Er Tablet PO 10 meq DAILY@0800 DIAMOND Administration Senna 8.6 mg 08/11/24 16:28 08/13/24 09:05 Sennosides 8.6 Mg Tablet PO 8.6 mg DAILY PRN Administration Constipation Thiamine HCl 300 mg 08/05/24 09:00 08/15/24 09:31 Thiamine Hcl 100 Mg Tablet PO 300 mg QAM DIAMOND Administration Trazodone HCl 50 mg 08/04/24 01:05 08/14/24 21:26 Trazodone Hcl 50 Mg Tablet PO 50 mg HS DIAMOND Administration Radiology Results: ITS Impressions Chest X-Ray 08/05/24 06:18 Impression: Discoid atelectasis or scarring left lung base, otherwise clear lungs. Foot X-Ray 08/06/24 13:36 IMPRESSION: 1. Mild polyarticular osteoarthritis. MRCP 08/09/24 09:53 IMPRESSION: 1. 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 2. Stricture of the common bile duct secondary to pancreatitis with mild intrahepatic biliary duct dilatation and gallbladder distention. Labs Labs: Laboratory Results - last 24 hr 08/15/24 06:04 WBC 12.8 H RBC 3.26 L Hgb 9.7 L Hct 30.2 L MCV 92.6 MCH 29.8 MCHC 32.1 RDW 17.5 H Plt Count 868 H MPV 8.5 Immature Gran % (Auto) 0.5 Neut % (Auto) 80.5 H Lymph % (Auto) 7.7 L [place] % (Auto) 8.8 H Eos % (Auto) 1.8 Baso % (Auto) 0.7 Lymph # (Auto) 0.98 [place] # (Auto) 1.1 H Eos # (Auto) 0.2 Baso # (Auto) 0.1 Abs Immat Gran (auto) 0.07 H Absolute Neuts (auto) 10.3 H Absolute Nucleated RBC 0.000 Nucleated RBC % 0.0 Sodium 136 L Potassium 4.2 Chloride 99 Carbon Dioxide 29 Anion Gap 8 BUN 9 Creatinine 1.02 Estim Creat Clear Calc 78 Estimated GFR > 60 Glucose 117 H Lactic Acid < 0.5 L Calcium 9.2 Magnesium 2.0 Total Bilirubin 0.1 L AST 22 ALT 15 Alkaline Phosphatase 138 H Total Protein 7.0 Albumin 3.8 Quality VTE Prophylaxis VTE prophylaxis: pharmacologic ordered
[2024-08-15] MEDS: traZODone HCL 50 MG TABLET PO (20:05)
--- NOTE | 2024-08-16 12:57 | P.TS_ITS ---
Transfer Discharge Sum: Prov Provider Date of admission: 08/04/24 08:06 Primary care physician: Ronnell Escobar APRN Admitting clinician: Greg Nj MD Consults: 08/06/24 Wound/ET Consult Routine Reason for Consult:: Bilateral feet, multiple toes black DS: Admitting Diagnosis Discharge Date 08/15/24 Admitting Diagnosis abd pain DS: Discharge Diagnosis Discharge Diagnosis (1) Necrotizing pancreatitis: Code(s): K85.91 - Acute pancreatitis with uninfected necrosis, unspecified Status: Acute Transfer Discharge Sum: Med Medications Active and Home Medications: Home Medications tuumkgxf-vktg-dluhs acid 400 mcg-lycopene 600 mcg-ginkgo 120 mg tablet 1 tablet PO DAILY 02/03/21 [History Confirmed 08/03/24] potassium gluconate 595 mg (99 mg) tablet 99 mg PO DAILY 04/25/23 [History Confirmed 08/03/24] losartan 25 mg tablet 25 mg PO DAILY 06/28/23 [History Confirmed 08/03/24] nayiqa-etdfjnte-kodwjjs 12,000-38,000-60,000 unit capsule,delayed rel (Creon) 1 cap PO TID #90 caps 07/13/23 [Rx Confirmed 08/03/24] fenofibrate 160 mg tablet 160 mg PO DAILY #90 tabs 01/23/24 [Rx Confirmed 08/03/24] pantoprazole 40 mg tablet,delayed release See Rx Instructions .Route .COMPLEX #90 tabs 01/23/24 [Rx Confirmed 08/03/24] meloxicam 7.5 mg tablet 7.5 mg PO BID PRN joint pain #60 tabs 04/02/24 [Rx Confirmed 08/03/24] gabapentin 300 mg capsule 300 mg PO Q8H #270 caps 05/01/24 [Rx Confirmed 08/03/24] amlodipine 10 mg tablet 10 mg PO DAILY #90 tabs 06/17/24 [Rx Confirmed 08/03/24] ascorbic acid (vitamin C) 500 mg chewable tablet (Acerola C) 500 mg PO DAILY 08/01/24 [History Confirmed 08/03/24] biotin 5 mg capsule 5 mg PO DAILY 08/01/24 [History Confirmed 08/03/24] carbamazepine 200 mg tablet 200 mg PO Q12H 08/01/24 [History Confirmed 08/03/24] duloxetine 30 mg capsule,delayed release (Cymbalta) 30 mg PO BID 08/01/24 [History Confirmed 08/03/24] magnesium 250 mg tablet 500 mg PO DAILY 08/01/24 [History Confirmed 08/03/24] tadalafil 20 mg tablet 5 mg PO DAILY 08/01/24 [History Confirmed 08/03/24] tizanidine 4 mg tablet 4 mg PO HS muscle spasticity 08/01/24 [History Confirmed 08/03/24] trazodone 50 mg tablet 50 mg PO HS 08/03/24 [History Confirmed 08/03/24] folic acid 1 mg tablet See Rx Instructions .Route .COMPLEX #90 tabs 08/15/24 [Rx] Transfer Discharge Sum: Hosp Hospital Course Hospital course: Garrison Norman is a 58-year-old male smoker with history of alcohol abuse, chronic pancreatitis, and hypertension who presented to the emergency department from [place] for evaluation. The patient provides the following history. He was discharged from the hospital yesterday afternoon after a 3 day stay in which he was treated for acute on chronic pancreatitis and alcohol withdrawal. His pain had improved and he was tolerating clear liquids but is mentioned in his discharge summary that he had some difficulty with solid foods. After returning back to rehab, he ate a full dinner consisting of pork loins with mashed potatoes and gravy and green beans. Not surprisingly his abdominal pain worsened significantly with reports of severe sharp, shooting upper abdominal pain radiating through to the back associated with nausea and vomiting. He reports feeling a bit anxious but has no other withdrawal symptoms. He denies fever, chills, sweats, hematemesis, chest pain, shortness of breath, diarrhea, and dysuria. In the ED: He was in sinus tachycardia with a rate of 110 on arrival. The remainder of his vital signs were stable. Labs were significant for WBC count of 8.0, hemoglobin 11.8, sodium 136, alkaline phosphatase 245, lipase 1662. Urinalysis was unremarkable and alcohol level was undetectable. He received pain medications, antiemetics, a dose of chlordiazepoxide and he is being admitted in this setting for further treatment of acute on chronic pancreatitis. GI was consulted adn patient was startedon Antibiotics, initially NPO, MRCP showed acute on chronic pancreatitis with worsened acute necrotic collections, stricture of the CBD noted. GI recommended transfer to higher level of care. Patient later tolerated diet althoutgh with tolerated pain and pain control. Also managed for iron deficiency anemia, received 500mg IV iron. Isat 13 and ferritin 128. Patient transferred to higher level of care to [facility]. Patient was stable on discharge Time Spent with Patient Time attestation: Total time spent providing and/or coordinating transfer services:
== END 2024-08-15 20:40 | disposition short-term general hospital (02) | DRG 439 ==
LOC: ANHED 19:41 → ANH3MEDSUR 20:25
PROVIDERS: Emergency Medicine; Family Medicine; General Practice; Internal Medicine; Nurse Practitioner Acute Care; Nurse Practitioner Family; Physician Assistant; Admitting Provider Internal Medicine; Emergency Provider General Practice; PCP Nurse Practitioner; Visit Provider Nurse Practitioner Adult Health
DX: K85.91 Acute pancreatitis with uninfected necrosis, unspecified (principal); F10.239 Alcohol dependence with withdrawal, unspecified; K86.1 Other chronic pancreatitis; Z88.0 Allergy status to penicillin; K21.9 Gastro-esophageal reflux disease without esophagitis; S90.425D Blister (nonthermal), left lesser toe(s), subsequent encounter; S90.424D Blister (nonthermal), right lesser toe(s), subsequent encounter; D63.8 Anemia in other chronic diseases classified elsewhere; E78.5 Hyperlipidemia, unspecified; F17.210 Nicotine dependence, cigarettes, uncomplicated; I10 Essential (primary) hypertension; K59.00 Constipation, unspecified; K83.8 Other specified diseases of biliary tract; M15.9 Polyosteoarthritis, unspecified; R07.9 Chest pain, unspecified; R51.9 Headache, unspecified; Z86.711 Personal history of pulmonary embolism; Z90.49 Acquired absence of other specified parts of digestive tract
CPT/HCPCS: 36415; 71045; 73630; 74183; 76376; 80048; 80053; 81003; 82077; 82728; 82948; 83540; 83550; 83605; 83690; 83735; 84100; 84484; 85025; 85027; 87641; 93005; 96361; 96374; 96375; 96376; 99285; A9270; A9577; G0378; J0692; J1171; J1630; J1650; J1756; J2060; J2405; J2765; J7030; J7042; J7050

== ENCOUNTER 2024-09-08 22:50 | Emergency (ER) | payer MEDICARE, SELFPAY ==
[2024-09-08] VITALS (7 sets, daily range): BP systolic 93–106; BP diastolic 69–80; PULSE 93–99; RESP 10–18; TEMP 36.8; O2SAT 98–100
--- NOTE | ~2024-09-08 | CT_ITS ---
CT of the Abdomen and Pelvis: Indication: Abdominal pain Technique: 2.5 mm axial scans were obtained through the abdomen and pelvis following intravenous adm inistration of 100 cc of Omnipaque 350. Dose reduction technique was used on this scan by utilizing a utomated exposure control and iterative reconstruction technique. The dose-length product (DLP) was 3 67.29 mGy-cm. COMPARISON: 07/31/2024 Findings: Scans through the lung bases are unremarkable. The liver, spleen, gallbladder, adrenals and kidneys are within normal limits. Suspected acute on chr onic pancreatitis with absence of the pancreatic tail. There is inflammatory change about the pancrea tic head extending to the aileen hepatis region. 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 No evidence of aortic aneurysm. No lymphadenopathy. No bowel obstruction or bowel wall thickening. There is no evidence to suggest acute appendicitis. Images through the pelvis were performed. Urinary bladder unremarkable. No pelvic mass seen. No pelvi c ascites. Impression: Acute on chronic pancreatitis with atrophy or absence of the pancreatic tail. 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 Reviewed, dictated and finalized at [facility]. Impression: Acute on chronic pancreatitis with atrophy or absence of the pancreatic tail. 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
[2024-09-09] VITALS (13 sets, daily range): BP systolic 104–112; BP diastolic 74–86; PULSE 88–103; RESP 9–17; O2SAT 97–100
--- OUTSIDE RECORDS SUMMARY | 2024-09-09 00:28 | XMS_ITS | Encounter Summary ---
Author Organization [facility] Address [address] [place] [id number] Care Team Providers Care Ribbon Weaver Name Role Phone Lamberto Barker MD Primary Care Provider [phone] Ronnell Escobar NP Primary Care Provider [phone] Encounter Details Date Type Department Care Team (Late st Contact Info) Description 01/05/2021 Hospital Follow-up Call [facility] [place] [address] Heather Adames RN Social History Tobacco Use Types Packs/Day [...] often do you attend chur ch or yarsani services? Never 12/25/2020 Do you belong to any clubs o r organizations such as sikh groups, unions, fraternal or athletic groups, or [...] documented as of this encounter Care Teams Ribbon Weaver Relationship Specialty Start Date End Date Lamberto Barker MD [address] [place] [address] PCP - General INTERNAL MEDICINE 05/08/19 08/28/24 Ronnell Escobar NP [address] [facility] [address] [place] [address] PCP - General NURSE PRACTITIONER 08/29/24 documented as of this encounter
--- OUTSIDE RECORDS SUMMARY | 2024-09-09 00:28 | XMS_ITS | Clinical Summary ---
Author Organization [facility] Address [address] [place] [address] Care Team Providers Care Drop Hammer Setter Up Name Role Phone Ronnell Escobar NP Primary Care Provider + [phone] Allergies Active Allergy Reactions Criticality Noted Date Comments Ciprofloxacin Hives Medium 06/02/2023 Patient stated he has previously tolerated PO. 06/02/23 had redness and hives after IV dose. Penicillins Rash Medium 05/08/2019 Zbxcxtyvjoex-Xpyapddzcm-Jyi trs Angioedema High 09/17/[address] (PROTONIX) 40 mg EC tablet Take 1 tablet (40 mg total) [...] daily 30 patch 01/12/20 22 Active multivit zpadbswz-gixb-[place] lcium (THERA-M) 9 mg iron-400 mcg tablet Take 1 tablet by mouth daily Active aspirin 81 mg enteric coated tablet Take 1 tablet (81 mg total) by mouth daily Started at rehab Active polyethylene glycol (MIRALAX) 17 gram packet Take 1 packet (17 g total) by mouth 3 (three) times a day 60 packet 02/05/20 22 Active diphenhydrAMINE (BENADRYL) 50 mg capsule Take 1 capsule (50 mg total) by mouth daily Active losartan (COZAAR) 25 mg tablet Take 1 tablet (25 mg total) by mouth daily 05/11/20 23 Active ondansetron ODT (ZOFRAN-ODT) 4 mg disintegrating tablet Take 1 tablet (4 mg total) by mouth every 8 (eight) hours as needed for nausea or vomiting 20 tablet 06/13/19 24 Active acetaminophen (TYLENOL) 325 mg tablet Take 2 tablets (650 mg total) by mouth every 4 (four) hours as needed for pain 10/01/19 24 Active amLODIPine (NORVASC) 10 mg tablet Take 1 tablet (10 mg total) by mouth daily 01/01/20 24 Active pancrelipase (Creon) 12,000 units of lipase capsule Take 1 capsule (12,000 units of lipase total) by mouth 3 (three) times a day with meals 90 capsule 2 08/22/19 25 2024 Active fenofibrate nanocrystallized (TRICOR) 145 mg tablet Take 1 tablet (145 mg total) by mouth daily 30 tablet 11 08/23/19 25 2025 Active gabapentin (NEURONTIN) 600 mg tablet Take 1 tablet (600 mg total) by mouth 3 (three) times a day 270 tablet 3 08/22/19 25 2025 Active loperamide (IMODIUM) 2 mg capsule Take 1 capsule (2 mg total) by mouth 3 (three) times a day as needed for diarrhea 30 capsule 08/22/19 25 Active tiZANidine (ZANAFLEX) 4 mg tablet Take 1 tablet (4 mg total) by mouth nightly as needed for muscle spasms 30 tablet 08/22/19 25 2024 Active traZODone (DESYREL) 50 mg tablet 03/14/20 22 2024 Discontin ued(Stop Taking at Discharge ) gabapentin (NEURONTIN) 300 mg capsule Take by mouth 3 (three) times a day 03/21/20 22 2024 Discontin ued(Stop Taking at Discharge ) Creon 12,000-38,000 -60,000 unit capsule 3 (three) times a day with meals 08/31/192024 Discontin ued(Stop Taking at Discharge ) tiZANidine (ZANAFLEX) 4 mg tablet TAKE 1 TO 2 TABLETS BY MOUTH EVERY NIGHT AT BEDTIME NEEDED FOR MUSCLE SPASMS 05/07/202024 Discontin ued(Stop Taking at Discharge ) fenofibrate (TRIGLIDE) 160 mg tablet Take 1 tablet (160 mg total) by mouth daily 2024 Discontin ued(Stop Taking at Discharge ) traMADoL (ULTRAM) 50 mg tablet Take 1 tablet (50 mg total) by mouth every 6 (six) hours for 10 doses 10 tablet 01/10/20 24 2024 Discontin ued(Stop Taking at Discharge ) oxyCODONE (ROXICODONE) 10 mg tabletIndications:P ain Take 1 tablet (10 mg total) by mouth every 6 (six) hours as needed for pain for up to 5 days 20 tablet 08/22/19 25 2024 Active Problems Problem Noted Date Diagnosed Date Moderate protein-calorie malnutrition 08/16/2024 Acute on chronic pancreatitis 08/15/2024 Thrombocytosis 09/30/2023 Acute pancreatitis without n ecrosis or infection, unspecified 09/20/2023 Constipation 06/10/2023 Assessment & Plan (06/12/2023 2:18 PM BURLING AND JOINING SUPERVISOR): Patient reports feeling constipated, gassy and [...] 06/08/2023 Assessment & Plan (06/09/2023 1:55 PM BURLING AND JOINING SUPERVISOR): Resolved. Acute pancreatitis, unspecif ied complication status, unspecified pancreatitis type 06/04/2023 Assessment & Plan (06/05/2023 12:45 PM BURLING AND JOINING SUPERVISOR): Longstanding bouts of pancreatitis originally from [...] 06/04/2023 Assessment & Plan (06/05/2023 12:48 PM BURLING AND JOINING SUPERVISOR): Likely from pancreatitis. Also tender to palpation initially so may be a musculoskeletal component from dry heaving. Trops negative. EKG no ischemic changes. He reports hx of [place] in the past, unclear circumstances. He had an exercise stress test in spring at an outside facility that he says was normal. Cont ASA. Gram-negative bacteremia 04/11/2023 Assessment & Plan (04/13/2023 7:02 PM BURLING AND JOINING SUPERVISOR): - due to cholangitis - BCx + for E coli and K. Pneumoniae - repeat BCx drawn 04/11, ngtd - pansensitive organisms - d/c home today with flagyl/cipro Cholangitis 04/10/2023 Assessment & Plan (04/12/2023 6:21 PM BURLING AND JOINING SUPERVISOR): - Improving - 04/10 ERCP - removal of two migrates stents with biliary obstruction and replaced with 2 new stents in biliary stricture - PRN analgesics and antiemetics Assessment & Plan (04/10/2023 2:40 AM BURLING AND JOINING SUPERVISOR): -meets [place] criteria for acute cholangitis [...] less likely MRCP------> GI consult ordered in [facility] -NPO x sips, ice chips -IVFs overnight -PRN analgesics and antiemetics -repeat CBC, BMP, HFP in AM 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 Encounter for removal of biliary stent 3 Acute recurrent pancreatitis 01/26/2022 Post-ERCP acute pancreatitis 01/04/2022 Assessment & Plan (06/13/2023 2:35 PM BURLING AND JOINING SUPERVISOR): Recently admitted from 06/04-06/05/23 after ERCP [...] (01/05/2022): Added automatically from request for surgery [id number] Assessment & Plan (04/11/2023 3:57 PM BURLING AND JOINING SUPERVISOR): - improving -2/2 stent migration and resultant biliary obstruction Assessment & Plan (04/10/2023 2:27 AM BURLING AND JOINING SUPERVISOR): -2/2 stent migration and resultant biliary obstruction -mgmt as above -repeat HFP in AM 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 Overview (11/30/2021): Added automatically from request for surgery [id number] Encounter for replacement of biliary stent 11/30 Overview (11/30/2021): Added automatically from request for surgery [id number] 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 Pancreatic pseudocyst 07/26/2021 Severe sepsis 07/08/2021 Assessment & Plan (07/13/2021 9:43 AM BURLING AND JOINING SUPERVISOR): Pt elevated temp on 2 overnight [...] infection Assessment & Plan (07/12/2021 9:40 AM BURLING AND JOINING SUPERVISOR): Pt elevated temp on 209 overnight 38.1 max, hypotensive with normal lactate [...] infection Assessment & Plan (07/11/2021 10:55 AM BURLING AND JOINING SUPERVISOR): Pt elevated temp on 209 overnight 38.1 max, hypotensive with normal lactate [...] bed Assessment & Plan (07/10/2021 9:10 AM BURLING AND JOINING SUPERVISOR): Pt elevated temp on 07/07 overnight 38.1 [...] daily Assessment & Plan (07/09/2021 2:23 PM BURLING AND JOINING SUPERVISOR): Pt elevated temp on 07/07 overnight 38.1 [...] daily Assessment & Plan (07/08/2021 1:53 PM BURLING AND JOINING SUPERVISOR): Pt elevated temp overnight 38.1 max, [...] 07/07/2021 Assessment & Plan (07/13/2021 9:43 AM BURLING AND JOINING SUPERVISOR): Domosesff placed 07/08, tube feeding to initiated Osmolite 1.5 at 55mL/hr over 24h via NJ tube continuous via pump. Flush with 150mL water q4h. Now at goal of 55cc/hr. Can cycle at home as instructed. Will continue TF until follow up with GI as outpatient Assessment & Plan (07/12/2021 9:39 AM BURLING AND JOINING SUPERVISOR): Doalkahoff placed 07/08, tube feeding to initiated Osmolite 1.5 at 55mL/hr over 24h via NJ tube continuous via pump. Flush with 150mL water q4h. Now at goal of 55cc/hr. Can cycle at home as instructed. Will continue TF until follow up with GI as outpatient Assessment & Plan (07/11/2021 10:55 AM BURLING AND JOINING SUPERVISOR): Dolakahodusty placed 07/08, tube feeding to initiated TF recommendations: Goal: Osmolite 1.5 at 55mL/hr over 24h via NJ tube continuous via pump. Flush with 150mL water q4h. Initiate TF at 10mL/hr and increase by 10mL q4h until goal rate is reached Pt at goal feeding 55 ml/hr and tolerating without event Continue TF feeding Monitor BMP, Mag, Phos Assessment & Plan (07/10/2021 9:08 AM BURLING AND JOINING SUPERVISOR): Familiahodusty placed 07/08, tube feeding to initiated TF recommendations: Goal: Osmolite 1.5 at 55mL/hr over 24h via NJ tube continuous via pump. Flush with 150mL water q4h. Initiate TF at 10mL/hr and increase by 10mL q4h until goal rate is reached Pt at goal feeding 55 ml/hr and tolerating without event Continue TF feeding Monitor BMP, Mag, Phos Assessment & Plan (07/09/2021 2:25 PM BURLING AND JOINING SUPERVISOR): Cherelle placed 2, tube feeding to initiated TF recommendations: Goal: [...] prn Assessment & Plan (07/08/2021 1:11 PM BURLING AND JOINING SUPERVISOR): Dobbhoff placed 07/08, tube feeding to initiate TF recommendations: Goal: Osmolite 1.5 at 55mL/hr over 24h via NJ tube continuous via pump. Flush with 150mL water q4h. Initiate TF at 10mL/hr and increase by 10mL q4h until goal rate is reached Chronic pancreatitis, unspecified pancreatitis t ype 07/06/2021 Assessment & Plan (07/13/2021 9:42 AM BURLING AND JOINING SUPERVISOR): Ongoing acute episode of (developing) chronic [...] enteral feedings. GI consult pt cherelle placed 07/[address] c/s tube feeding plan initiated and now at goal feeding and tolerating well. Will wean from IV pain meds to oxycodone for discharge to home Assessment & Plan (07/12/2021 9:38 AM BURLING AND JOINING SUPERVISOR): Ongoing acute episode of (developing) chronic [...] 07/13 Assessment & Plan (07/11/2021 10:53 AM BURLING AND JOINING SUPERVISOR): Ongoing acute episode of (developing) chronic [...] discharge Assessment & Plan (07/10/2021 9:07 AM BURLING AND JOINING SUPERVISOR): Ongoing acute episode of developing chronic [...] feedings Assessment & Plan (07/09/2021 2:30 PM BURLING AND JOINING SUPERVISOR): Ongoing acute episode of chronic pancreatitis. [...] CTM Assessment & Plan (07/08/2021 1:49 PM BURLING AND JOINING SUPERVISOR): Ongoing acute episode of chronic pancreatitis. [...] plan Assessment & Plan (07/07/2021 11:22 AM BURLING AND JOINING SUPERVISOR): Ongoing acute episode of chronic pancreatitis. [...] plan Assessment & Plan (07/06/2021 5:30 PM BURLING AND JOINING SUPERVISOR): Ongoing acute episode of chronic pancreatitis. [...] 07/06/2021 Assessment & Plan (07/13/2021 9:42 AM BURLING AND JOINING SUPERVISOR): Likely ATN related to hypotensive episode. Cr peaked at Cr at 2.31, now back to baseline after aggressive IVF and now tolerating TF. Assessment & Plan (07/12/2021 9:36 AM BURLING AND JOINING SUPERVISOR): Likely ATN related to hypotensive episode. Cr peaked at Cr at 2.31, now back to baseline after aggressive IVF and now tolerating TF. Assessment & Plan (07/11/2021 10:54 AM BURLING AND JOINING SUPERVISOR): Likely ATN related to hypotensive episode. Cr peaked at Cr at 2.31, now back to baseline after aggressive IVF, continue to monitor bmp, continue fluids Assessment & Plan (07/10/2021 9:08 AM BURLING AND JOINING SUPERVISOR): Likely ATN related to hypotensive episode. Cr peaked at Cr at 2.31, now back to baseline after aggressive IVF, continue to monitor bmp, continue fluids Assessment & Plan (07/09/2021 2:29 PM BURLING AND JOINING SUPERVISOR): Cr at baseline after aggressive IVF, continue to monitor bmp, continue fluids Assessment & Plan (07/08/2021 1:10 PM BURLING AND JOINING SUPERVISOR): Cr baseline 0.8 now up to 1.3 on arrival due to po intolerance Aggressive IVF will monitor urine output Today net fluid intake 191 Cr trended up to 2.31 continue aggressive fluids Daily bmp Continue IVF Assessment & Plan (07/07/2021 11:19 AM BURLING AND JOINING SUPERVISOR): Cr baseline 0.8 now up to 1.3 on arrival due to po intolerance Aggressive IVF will monitor urine output Today net fluid intake 191 Cr 1.05 improving with fluids Daily bmp Continue IVF Assessment & Plan (07/06/2021 5:39 PM BURLING AND JOINING SUPERVISOR): Cr baseline 0.8 now up to 1.3 on arrival due to po intolerance Aggressive IVF will monitor urine output Alcohol dependence 06/25/2021 Assessment & Plan (06/07/2023 5:01 AM BURLING AND JOINING SUPERVISOR): Last drink on Grisel and he reports [...] program Assessment & Plan (07/13/2021 9:42 AM BURLING AND JOINING SUPERVISOR): Has a long history of alcohol [...] Group Assessment & Plan (07/12/2021 9:36 AM BURLING AND JOINING SUPERVISOR): Has a long history of alcohol [...] Group Assessment & Plan (07/11/2021 10:54 AM BURLING AND JOINING SUPERVISOR): Has a long history of alcohol [...] Group Assessment & Plan (07/10/2021 9:05 AM BURLING AND JOINING SUPERVISOR): Has a long history of alcohol [...] Group Assessment & Plan (07/09/2021 2:33 PM BURLING AND JOINING SUPERVISOR): Has a long history of alcohol [...] Group Assessment & Plan (07/08/2021 1:06 PM BURLING AND JOINING SUPERVISOR): Has a long history of alcohol use with dependence. He states he has not had a drink since before his ERCP 06/22/2021 and has been on Vivitrol injections. His ethanol level on arrival to the ED is negative Plan to continue EtOH cessation and support with outpatient naltrexone therapy. Assessment & Plan (07/07/2021 11:13 AM BURLING AND JOINING SUPERVISOR): Has a long history of alcohol use with dependence. He states he has not had a drink since before his ERCP 06/22/2021 and has been on Vivitrol injections. His ethanol level on arrival to the ED is negative Plan to continue EtOH cessation and support with outpatient naltrexone therapy. Assessment & Plan (07/06/2021 5:22 PM BURLING AND JOINING SUPERVISOR): Has a long history of alcohol use with dependence. He states he has not had a drink since before his ERCP 06/22/2021 and has been on Vivitrol injections. His ethanol level on arrival to the ED is negative Plan to continue EtOH cessation and support with outpatient naltrexone therapy Assessment & Plan (06/28/2021 11:39 AM BURLING AND JOINING SUPERVISOR): Long standing hx of alcohol dependence [...] needed Assessment & Plan (06/27/2021 11:47 AM BURLING AND JOINING SUPERVISOR): Long standing hx of alcohol dependence [...] needed Assessment & Plan (06/26/2021 11:59 AM BURLING AND JOINING SUPERVISOR): Long standing hx of alcohol dependence [...] 06/25/2021 Assessment & Plan (06/07/2023 5:06 AM BURLING AND JOINING SUPERVISOR): Markedly hypertensive on ED arrival in the setting of pain -Continue home Amlodipine 10 mg qday and losartan 25 mg qday Assessment & Plan (06/05/2023 12:47 PM BURLING AND JOINING SUPERVISOR): Hypertensive initially from pain. Improved today. Cont home meds. Assessment & Plan (04/12/2023 6:21 PM BURLING AND JOINING SUPERVISOR): -continue norvasc Assessment & Plan (04/10/2023 2:31 AM BURLING AND JOINING SUPERVISOR): -resume norvasc in AM Assessment & Plan (01/11/2022 11:23 AM CDT): Continue norvasc Assessment & Plan (01/10/2022 11:40 AM CDT): Continue norvasc Assessment & Plan (07/13/2021 9:43 AM BURLING AND JOINING SUPERVISOR): Continue to hold home lisinopril on account of recent hypotension/JOSE. With low normotensive BP will discontinue lisinopril. Follow up with PCP in 2-4 weeks to re evaluate restarting if needed Assessment & Plan (07/12/2021 9:38 AM BURLING AND JOINING SUPERVISOR): Continue to hold home lisinopril on account of recent hypotension/JOSE. BP normal, may not require lisinopril on discharge. Assessment & Plan (07/11/2021 10:54 AM BURLING AND JOINING SUPERVISOR): Continue to hold home lisinopril on account of recent hypotension/JOSE. BP normal, may not require lisinopril on discharge. Assessment & Plan (07/10/2021 9:06 AM BURLING AND JOINING SUPERVISOR): Continue to hold home lisinopril on account of recent hypotension Assessment & Plan (07/09/2021 2:32 PM BURLING AND JOINING SUPERVISOR): Continue to hold home lisinopril until more stable BP Assessment & Plan (07/08/2021 1:06 PM BURLING AND JOINING SUPERVISOR): BP hypotensive overnight hold antihypertensives at this time. Assessment & Plan (07/07/2021 11:15 AM BURLING AND JOINING SUPERVISOR): BP on remain normotensive Continue lisinopril and pain control Assessment & Plan (07/06/2021 5:30 PM BURLING AND JOINING SUPERVISOR): BP on arrival normotensive Continue lisinopril and pain control Assessment & Plan (06/28/2021 11:39 AM BURLING AND JOINING SUPERVISOR): Continue home lisinopril 40 mg -Monitor BP -BP stable Assessment & Plan (06/27/2021 11:48 AM BURLING AND JOINING SUPERVISOR): Continue home lisinopril 40 mg -Monitor BP/Cr -BP stable Assessment & Plan (06/25/2021 4:55 PM BURLING AND JOINING SUPERVISOR): Continue home lisinopril 40 mg -Monitor BP/Cr -Daily BMP Tobacco abuse 06/25/2021 Major depressive disorder 06/25/2021 Assessment & Plan (06/07/2023 5:07 AM BURLING AND JOINING SUPERVISOR): Continue home duloxetine 30 mg BID and trazodone 50 mg qhs Assessment & Plan (06/04/2023 11:58 AM BURLING AND JOINING SUPERVISOR): Cont home meds Assessment & Plan (01/11/2022 11:23 AM CDT): Continue duloxetine scheduled and trazodone prn Assessment & Plan (01/10/2022 11:40 AM CDT): Continue duloxetine scheduled and trazodone prn Assessment & Plan (07/13/2021 9:43 AM BURLING AND JOINING SUPERVISOR): Most certainly contributing to his long standing alcohol use. Continue home meds duloxetine and trazodone Assessment & Plan (07/12/2021 9:38 AM BURLING AND JOINING SUPERVISOR): Most certainly contributing to his long standing alcohol use. Continue home meds duloxetine and trazodone Assessment & Plan (07/11/2021 10:54 AM BURLING AND JOINING SUPERVISOR): Most certainly contributing to his long standing alcohol use. Continue home meds duloxetine and trazodone Assessment & Plan (07/10/2021 9:06 AM BURLING AND JOINING SUPERVISOR): Most certainly contributing to his long standing alcohol use. Continue home meds duloxetine and trazodone Assessment & Plan (07/09/2021 2:30 PM BURLING AND JOINING SUPERVISOR): Most certainly contributing to his long standing alcohol use now with cessation Continue home meds duloxetine and trazodone Assessment & Plan (07/08/2021 1:09 PM BURLING AND JOINING SUPERVISOR): Most certainly contributing to his long standing alcohol use now with cessation Continue home meds duloxetine and trazodone Assessment & Plan (07/07/2021 11:16 AM BURLING AND JOINING SUPERVISOR): Most certainly contributing to his long standing alcohol use now with cessation Continue home meds duloxetine and trazodone Assessment & Plan (07/06/2021 5:32 PM BURLING AND JOINING SUPERVISOR): Most certainly contributing to his long standing alcohol use now with cessation Continue home meds duloxetine and trazodone Assessment & Plan (06/28/2021 11:39 AM BURLING AND JOINING SUPERVISOR): Continue home Trazodone 50 mg, Cymbalta 30 mg Resume Biofeedback at discharge Assessment & Plan (06/27/2021 11:48 AM BURLING AND JOINING SUPERVISOR): Continue home Trazodone 50 mg, Cymbalta 30 mg Resume Biofeedback at discharge Assessment & Plan (06/25/2021 4:57 PM BURLING AND JOINING SUPERVISOR): Continue home Trazodone 50 mg, Cymbalta 30 mg Resume Biofeedback at discharge Pancreatic duct obstruction 06/11/2021 Overview (06/11/2021): Added automatically from request for surgery [id number] Abdominal pain 06/11/2021 Overview (06/11/2021): Added automatically from request for surgery [id number] Necrotizing pancreatitis 10/21/2019 Therapeutic opioid induced constipation 10/21/19 20 Assessment & Plan (07/13/2021 9:44 AM BURLING AND JOINING SUPERVISOR): Continue bowel regimen Assessment & Plan (07/12/2021 9:41 AM BURLING AND JOINING SUPERVISOR): Bowel regimen ordered without BM. Will titrate bowel regimen Assessment & Plan (07/11/2021 10:58 AM BURLING AND JOINING SUPERVISOR): Bowel regimen ordered Assessment & Plan (06/28/2021 11:39 AM BURLING AND JOINING SUPERVISOR): Pt states no BM for the past week. Likely due to decrease intake and vomiting, possible contribution from opioids -daily bowel regimen, had BM Monday Assessment & Plan (06/27/2021 11:48 AM BURLING AND JOINING SUPERVISOR): Pt states no BM for the past week. Likely due to decrease intake and vomiting, possible contribution from opioids -daily bowel regimen Assessment & Plan (06/26/2021 12:00 PM BURLING AND JOINING SUPERVISOR): Pt states no BM for the past week. Likely due to decrease intake and vomiting, possibly contribution from opioids -daily bowel regimen -clear liquid diet Acute pancreatitis 05/08/2019 Assessment & Plan (06/28/2021 11:38 AM BURLING AND JOINING SUPERVISOR): Hx of chronic pancreatis starting 3 [...] prioritized. Assessment & Plan (06/27/2021 11:46 AM BURLING AND JOINING SUPERVISOR): Hx of chronic pancreatis starting 3 [...] prioritized. Assessment & Plan (06/26/2021 11:59 AM BURLING AND JOINING SUPERVISOR): Hx of chronic pancreatis starting 3 [...] 04/11/2023 Assessment & Plan (04/10/2023 2:38 AM BURLING AND JOINING SUPERVISOR): -migrated stent likely etiology of presenting symptoms and lab, CT findings -will likely need ERCP for stent exchange on Monday Metabolic acidosis, increased anion gap (IAG) 06/25/1907/09/2021 Assessment & Plan (07/09/2021 2:31 PM BURLING AND JOINING SUPERVISOR): Dobbhoff placed 07/08, to start tube feeding TF recommendations: Goal: Osmolite 1.5 at 55mL/hr over 24h via [place] tube continuous via pump. Flush with 150mL water q4h. Initiate TF at 10mL/hr and increase by 10mL q4h until goal rate is reached Assessment & Plan (07/08/2021 1:49 PM BURLING AND JOINING SUPERVISOR): Due to starvation in the setting [...] reached Assessment & Plan (07/07/2021 11:16 AM BURLING AND JOINING SUPERVISOR): Due to starvation in the setting of intolerance to PO for the last 3-4 days. Will provide aggressive IVF Continue to discuss enteral feedings with the patient going forward, currently pt is refusing, GI will readdress with pt today with goal for placement today should pt agree. Change IVF to D5LR Assessment & Plan (07/06/2021 5:38 PM BURLING AND JOINING SUPERVISOR): Due to starvation in the setting of intolerance to PO for the last 3-4 days. Will provide aggressive IVF Continue to discuss enteral feedings with the patient going forward Assessment & Plan (06/28/2021 11:39 AM BURLING AND JOINING SUPERVISOR): Likely dehydration from pancreatitis, n/v and poor intake. Heme concentrated hgb 14.9 (baseline 8-9), wbc 14.4 no source of infection likely heme concentrated, anion gap 20, UA ketone +1. Resolved with IVF Assessment & Plan (06/27/2021 11:47 AM BURLING AND JOINING SUPERVISOR): Likely dehydration from pancreatitis, n/v and poor intake. Heme concentrated hgb 14.9 (baseline 8-9), wbc 14.4 no source of infection likely heme concentrated, anion gap 20, UA ketone +1. Resolved with IVF Assessment & Plan (06/26/2021 12:00 PM BURLING AND JOINING SUPERVISOR): Likely dehydration from pancreatitis, n/v and poor intake. Heme concentrated hgb 14.9 (baseline 8-9), wbc 14.4 no source of infection likely heme concentrated, anion gap 20, UA ketone +1 -IVF -Clear liquid diet -Daily bmp Encounters Date Type Department Care Team Description 08/28/2024 Telephone [facility] [address] [facility] [address] [place] [address] [place] [address] Samson Esteban imaging due 08/28/2024 Orders Only [facility] [address] [facility] [address] [place] [address] [place] [id number] Kenneth Loya MD Necrotizing pancreatitis (Primary Dx) 08/26/2024 SHOP/CHAP Initial Outreach [facility] [address] [place] [address] Savanah Galvez RN 08/23/2024 SHOP/CHAP Initial Outreach [facility] [address] [place] [id number] Savanah Galvez RN 08/23/2024 Documentation [facility] [employer] [address] [place] [id number] Sadaf Yates RN GI f/u recs 08/22/2024 SHOP/CHAP Initial Outreach [facility] [address] [place] [address] Savanah Galvez RN 08/22/2024 SHOP/CHAP Initial Eligibility Review [facility] [address] [place], [place] [id number] Savanah Galvez RN 08/15/2024 9:03 PM CDT - 08/21/2024 4:12 PM CDT Hospital Encounter [facility] [address] [place] [address] John De Anda MD Thoelke, Mark S W., MD Discharge Disposition: Discharge to home or self care 07/23/2024 10:42 AM [employer]ING AND JOINING SUPERVISOR - 07/23/2024 3:32 PM [employer] AND JOINING SUPERVISOR Emergency [facility] Emergency Department [address] [place], [place] [id number] Discharge Disposition: Left without being seen from Last 3 Months Immunizations Immunization Administration Dates Next Due Flucelvax Influenza Quad 03/03/2019 Influenza, Quadrivalent, Spl it, Preservative Free, Intramuscular 03/08/2021,02/05/2018 Influenza, Trivalent, Preser vative Free, Intramuscular 08/16/2024,08/16/2024(Deferred: Other - already given.) Td, adsorbed 07/01/1998 Surgical History Surgery Date [...] Types Packs/Day Years Used Date Smoking Tobacco: Former Cigarettes Smokeless Tobacco: Never Tobacco Cessation:Counseling Given: Not Answered Alcohol Use Standard Drinks/Week Comments Yes 0 (1 standard drink = 0.6 oz pur e alcohol) [facility] Utilities Answer Date Recorded In the past 12 months has th e electric, gas, oil, or water company threatened to shut off services in your home? No 08/15/2024 Social Connection and Isolat ion Panel [NHANES] Answer Date Recorded In a typical week, how many times do you talk on the phone with family, friends, or neighbors? More than three times a week 08/15/2024 How often do you get togethe r with friends or relatives? More than three times a week 08/15/2024 How often do you attend chur ch or mu-ism services? 1 to 4 times per year 08/15/2024 Do you belong to any clubs o r organizations such as rastafari groups, unions, fraternal or athletic groups, or school groups? No 08/15/2024 How often do you attend meet ings of the clubs or organizations you belong to? Never 08/15/2024 Are you , , di vorced, , never , or living with a partner? 08/15/2024 AUDIT-C Answer Date Recorded Q1: How often [...] medical care, and heating? Not very hard 08/15/2024 [facility] - Occupational Stress Questionnaire Answer Date Recorded Do you feel stress - tense, restless, nervous, or anxious, or unable to sleep at night because your mind is troubled all the time - these days? Very much 08/15/2024 Exercise Vital Sign Answer Date Recorde d On average, how many days pe r week do you engage in moderate to strenuous exercise (like a brisk walk)? 7 days 08/15/2024 On average, how many minutes do you engage in exercise at this level? 90 min 08/15/2024 Hunger Vital Sign Answer Date Recorded Within the past 12 months, y ou worried that your food would run out before you got the money to buy more. Never true 08/16/19 Within the past 12 months, t he food you bought just didn't last and you didn't have money to get more. Never true 08/15/2024 PRAPARE - Transportation Answer Date Re corded In the past 12 months, has l ack of transportation kept you from medical appointments or from getting medications? Yes 07/28 In the past 12 months, has l ack of transportation kept you from meetings, work, or from getting things needed for daily living? No 08/15/2024 Housing Stability Vital Sign Answer Dangelo e [...] slept in a long-term (including now)? No 09/21/2023 Housing Stability Vital Sign Answer Dangelo e Recorded In the last 12 months, was t here a time when you were not able to pay the mortgage or rent on time? No 08/15/2024 In the past 12 months, how m any times have you moved where you were living? 0 08/15/2024 At any time in the past 12 m [facility], were you homeless or living in a long-term (including now)? No 08/15/2024 Personal Safety Answer Date Recorded Have you ever been in or are you currently in a harmful physical or emotional relationship or is someone making you feel afraid or unsafe? 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 Gender Identity Not on file Sexual Orientation Not on file Occupation Industry Job Start Date Job End Date disability Not on file Not on file Not on file Obstetrics History Last Filed Vital Signs Vital Sign Reading Time Taken Comments Blood Pressure 106/65 08/21/2024 2:00 PM CDT Pulse 83 08/21/2024 2:00 PM CDT Temperature 37 C (98.6 F) 08/21/2024 2:00 PM CDT Respiratory Rate 17 08/21/2024 2:00 PM CDT Oxygen Saturation 99% 08/21/2024 2:00 PM CDT Inhaled Oxygen Concentration - - Weight 75.2 kg (165 lb 12.6 oz) 08/21/2024 4:35 AM CDT Height 182.9 cm (6') 08/15/2024 9:18 PM CDT Body Mass Index 22.48 08/15/2024 9:18 PM CDT Plan of Treatment Health Maintenance Due Date Last Done Comments Colon Cancer Screening-Colonoscopy 1967 Depression Screening 1967 Prostate Cancer Screening-PSA 1967 Hepatitis B Screening 10/16/1985 Regular Well Visit/Exam 18-64 10/16/1985 DTaP/Tdap/Td Vaccine (1 - Tdap) 07/02/1998 07/01/1998 Zoster Vaccine (1 of 2) 10/16/2017 Covid-19 Vaccine (3 - season) 2024 08/18/2020, 07/28/2020 Hepatitis C Screening Completed 08/15/2024 Influenza Vaccine Completed 08/16/2024, , 03/03/2019, Additional history exists Pneumococcal vaccine <65 Aged Out No longer eligible based on patient's age to complete this topic Medical Devices Implanted Type Area Medical Doctor Nuclear Medicine Device Identifier Shelf Expiration Date Model / Serial / Lot [employer] Kemal 8.5 Fr Nasal Biliary Catheter [id number] - [id number] Implanted:Qty: 1 on 01/26/2022 by Kenneth Loya MD at [facility] Catheter [employer] 06/22/2024 [id number] / / [id number] [employer] Kem[employer] 10fr 5cm Biliary Double Pigtail Stent [id number] - [id number] Implanted:Qty: 1 on 09/21/2023 by Kenneth Loya MD at [facility] Stent N/A: Bile Duct [employer] 08/14/2025 [id number] / / [id number] [employer] 10fr 5cm Biliary Stent [id number] - [id number] Implanted:Qty: 1 on 09/21/2023 by Kenneth Loya MD at [facility] Stent N/A: Bile Duct [employer] 07/03/2025 [id number] / / [id number] [employer] 10fr 5cm Biliary Double Pigtail Stent [id number] - [id number] Implanted:Qty: 1 on 09/21/2023 by Kenneth Loya MD at [facility] Stent N/A: Bile Duct [employer] 08/23/2025 [id number] / / [id number] [employer] 10fr 5cm Biliary Double Pigtail Stent [id number] - [id number] Implanted:Qty: 1 on 09/21/2023 by Kenneth Loya MD at [facility] Stent N/A: Bile Duct [employer] 08/23/2025 [id number] / / [id number] [employer] 10fr 5cm Biliary Double Pigtail Stent [id number] - [id number] Implanted:Qty: 1 on 09/21/2023 by Kenneth Loya MD at [facility] Stent N/A: Bile Duct [employer] 08/14/2025 [id number] / / [id number] [employer] 10fr 7cm Biliary Stent [id number] - [id number] Implanted:Qty: 1 on 04/10/2023 by John De Anda MD at [facility] [employer] [id number] 12/13/2024 [id number] / / [id number] [employer] 10fr 7cm Biliary Stent [id number] - [id number] Implanted:Qty: 1 on 04/10/2023 by John De Anda MD at [facility] [employer] Kemal [id number] 02/07/2025 [id number] / / [id number] Explanted Type Area Medical Doctor Nuclear Medicine Device Identifier Shelf Expiration Date Model / Serial / Lot [employer] [id number] Cotton-Young 10fr 7cm Taper Tip Guidewire Proximal Distal Flap - [id number] Implanted:Qty: 1 on 08/04/2021 by Kenneth Loya MD at [facility] Explanted:Qty: 1 on 08/30/2021 at [facility] Stent N/A: Bile Duct [employer] 01/28/2024 [id number] / / [id number] Axios 10 X 10 Stent Delivery System [id number] - [id number] Implanted:Qty: 1 on 08/04/2021 by Kenneth Loya MD at [facility] Explanted:Qty: 1 on 08/30/2021 at [facility] Stent N/A: Bile Duct [employer] 10/13/2022 [id number] / / [id number] [employer] Geenen 7fr 7cm Positioning Sleeve Push Catheter Guidewire [id number] - [id number] Implanted:Qty: 1 on 08/30/2021 at [facility] Explanted:Qty: 1 on 11/01/2021 by Kenneth Loya MD at [facility] Stent N/A: Pancreas [employer] 11/06/2023 [id number] / / [id number] [employer] Kem[employer] 10fr 5cm Biliary Stent [id number] - [id number] Implanted:Qty: 1 on 01/26/2022 by Kenneth Loya MD at [facility] Explanted:Qty: 1 on 04/06/2022 by Kenneth Loya MD at [facility] Stent [employer] 11/16/2023 [id number] / / [id number] [employer] Advanix Naviflex 7fr 9cm Radiopaque [place] Endo Marker Color Coded [id number] - [id number] Implanted:Qty: 1 on 01/26/2022 by Kenneth Loya MD at [facility] Explanted:Qty: 1 on 04/06/2022 at [facility] Stent [employer] 04/16/2023 [id number] / / [id number] [employer] Advanix 8.5fr 7cm Rapid Exchange Temporary Center Bend Stent [id number] - [id number] Implanted:Qty: 1 on 04/06/2022 by Kenneth Loya MD at [facility] Explanted:Qty: 1 on 07/06/2022 by Kenneth Loya MD at [facility] Stent N/A: Pancreas [employer] 10/26/2023 [id number] / / [id number] [employer] Advanix 8.5fr 7cm Rapid Exchange Temporary [place] Stent [id number] - [id number] Implanted:Qty: 1 on 04/06/2022 by Kenneth Loya MD at [facility] Explanted:Qty: 1 on 07/06/2022 by Kenneth Loya MD at [facility] Stent N/A: Pancreas [employer] 10/26/2023 [id number] / / [id number] [employer] 10fr 5cm Biliary Stent [id number] - [id number] Implanted:Qty: 1 on 09/08/2022 by Kenneth Loya MD at [facility] Explanted:Qty: 1 on 11/03/2022 by Kenneth Loya MD at [facility] Stent N/A: Bile Duct [employer] 08/07/2024 [id number] / / [id number] [employer] 10fr 5cm Biliary Stent [id number] - [id number] Implanted:Qty: 1 on 09/08/2022 by Kenneth Loya MD at [facility] Explanted:Qty: 1 on 11/03/2022 by Kenneth Loya MD at [facility] Stent N/A: Bile Duct [employer] 05/04/2024 [id number] / / [id number] [employer] [facility] Cartwright Flexi-Stent 7fr 7cm Small Pigtail Flexible .035in Stent 6574 - [id number] Implanted:Qty: 1 on 09/08/2022 by Kenneth Loya MD at [facility] Explanted:Qty: 1 on 11/03/2022 by Kenneth Loya MD at [facility] Stent N/A: Bile Duct [employer] 05/28/2027 [id number] / / [id number] schoox Geenen 8.5fr 9cm Drain Obstructed Positioning Sleeve Pushing [id number] - [id number] Implanted:Qty: 1 on 04/06/2022 by Kenneth Loya MD at [facility] Explanted:Qty: 1 on 01/05/2023 by Kenneth Loya MD at [facility] Stent N/A: Pancreas schoox 05/03/2024 [id number] / / [id number] [employer] [place] Flexi-Stent 7fr 7cm Small Pigtail Flexible .035in Stent 6574 - [id number] Implanted:Qty: 1 on 11/03/2022 by Kenneth Loya MD at [facility] Explanted:Qty: 1 on 01/05/2023 by Kenneth Loya MD at [facility] Stent N/A: Pancreas [employer] 05/28/2027 [id number] / / [id number] [employer] 10fr 5cm Biliary Stent [id number] - [id number] Implanted:Qty: 1 on 11/03/2022 by Kenneth Loya MD at [facility] Explanted:Qty: 1 on 01/05/2023 at [facility] Stent N/A: Bile Duct [employer] 08/15/2024 [id number] / / [id number] [employer] Cotton-Young 10fr 5cm Taper Tip Soft Proximal Distal Flap Gentle [id number] - [id number] Implanted:Qty: 1 on 11/03/2022 by Kenneth Loya MD at [facility] Explanted:Qty: 1 on 01/05/2023 by Kenneth Loya MD at [facility] Stent N/A: Bile Duct [employer] 08/10/2025 [id number] / / [id number] [employer] [facility] Cartwright Flexi-Stent 4fr 7cm Small Pigtail Flexible .025in Stent 6544 - [id number] Implanted:Qty: 1 on 01/05/2023 by Kenneth Loya MD at [facility] Explanted:Qty: 1 on 06/02/2023 at [facility] Stent N/A: Pancreas [employer] 07/27/2027 [id number] / / [id number] Description:Not present on t his procedure [employer] 10fr 7cm Biliary Stent [id number] - [id number] Implanted:Qty: 1 on 01/05/2023 by Kenneth Loya MD at [facility] Explanted:Qty: 1 on 06/02/2023 by Jero Soto MD at [facility] Stent N/A: Bile Duct [employer] 12/13/2024 [id number] / / [id number] [employer] 10fr 7cm Biliary Stent [id number] - [id number] Implanted:Qty: 1 on 01/05/2023 by Kenneth Loya MD at [facility] Explanted:Qty: 1 on 06/02/2023 by Jero Soto MD at [facility] Stent N/A: Bile Duct [employer] 12/13/2024 [id number] / / [id number] [employer] 10fr 5cm Biliary Double Pigtail Stent [id number] - [id number] Implanted:Qty: 1 on 06/02/2023 by Kenneth Loya MD at [facility] Explanted:Qty: 1 on 09/21/2023 by Kenneth Loya MD at [facility] Stent N/A: Bile Duct [employer] 04/30/2025 [id number] / / [id number] [employer] 10fr 5cm Biliary Double Pigtail Stent [id number] - [id number] Implanted:Qty: 1 on 06/02/2023 by Kenneth Loya MD at [facility] Explanted:Qty: 1 on 09/21/2023 by Kenneth Loya MD at [facility] Stent N/A: Bile Duct [employer] 04/30/2025 [id number] / / [id number] [employer] Kemla 10fr 5cm Biliary Stent [id number] - [id number] Implanted:Qty: 1 on 06/02/2023 by Kenneth Loya MD at [facility] Explanted:Qty: 1 on 09/21/2023 by Kenneth Loya MD at [facility] Stent N/A: Bile Duct [employer] 02/28/2025 [id number] / / [id number] [employer] 10fr 5cm Biliary Double Pigtail Stent [id number] - [id number] Implanted:Qty: 1 on 06/02/2023 by Kenneth Loya MD at [facility] Explanted:Qty: 1 on 09/21/2023 by Kenneth Loya MD at [facility] Stent N/A: Bile Duct [employer] 04/30/2025 [id number] / / [id number] [employer] [id number] Advanix 10fr 5cm Rapid Exchange Temporary [place] Stent - [id number] Implanted:Qty: 1 on 06/18/2021 by Kenneth Loya MD at [facility] Explanted:Qty: 1 on 08/30/2021 at [facility] [employer] 06/30/2022 [id number] / / [id number] Description:Removed prior [employer] Advanix Od10 Fr L7 Cm 1; Temporary Duodenal Bend Stent Biliary Pl [id number] - [id number] Implanted:Qty: 1 on 08/30/2021 at [facility] Explanted:Qty: 1 on 11/01/2021 by Kenneth Loya MD at [facility] N/A: Bile Duct [employer] 06/25/2022 [id number] / / [id number] [employer] Advanix Naviflex 10fr 9cm Lead Joana Radiopaque Flexible [id number] - [id number] Implanted:Qty: 1 on 11/01/2021 by Kenneth Loya MD at [facility] Explanted:Qty: 1 on 01/05/2022 by Contreras Girard MD at [facility] N/A: Pancreas [employer] 07/18/2022 [id number] / / [id number] 10fr 5cm Biliary Stent [id number] - [id number] Implanted:Qty: 1 on 11/01/2021 by Kenneth Loya MD at [facility] Explanted:Qty: 1 on 01/05/2022 at [facility] N/A: Bile Duct [employer] 08/12/2023 [id number] / / [id number] 10fr 7cm Biliary Stent [id number] - [id number] Implanted:Qty: 1 on 11/01/2021 by Kenneth Loya MD at [facility] Explanted:Qty: 1 on 01/05/2022 by Contreras Girard MD at [facility] N/A: Bile Duct [employer] 08/23/2023 [id number] / / [id number] [employer] Cotton-Young 10fr 5cm Taper Tip Soft Proximal Distal Flap Gentle [id number] - [id number] Implanted:Qty: 1 on 01/05/2022 by Contreras Girard MD at [facility] Explanted:Qty: 1 on 01/26/2022 at [facility] N/A: Bile Duct [employer] 05/07/2022 [id number] / / [id number] [employer] Advanix 7fr 7cm Lead Joana Radiopaque [place] Endo Marker Drainage [id number] - [id number] Implanted:Qty: 1 on 07/06/2022 by Kenneth Loya MD at [facility] Explanted:Qty: 1 on 09/08/2022 by Kenneth Loya MD at [facility] N/A: Pancreas [employer] 05/03/2023 [id number] / / [id number] [employer] 10fr 5cm Biliary Stent [id number] - [id number] Implanted:Qty: 1 on 07/06/2022 by Kenneth Loya MD at [facility] Explanted:Qty: 1 on 09/08/2022 by Kenneth Loya MD at [facility] N/A: Bile Duct [employer] 12/24/2022 [id number] / / [id number] [employer] 10fr 5cm Biliary Stent [id number] - [id number] Implanted:Qty: 1 on 07/06/2022 by Kenneth Loya MD at [facility] Explanted:Qty: 1 on 09/08/2022 by Kenneth Loya MD at [facility] N/A: Bile Duct [employer] 11/16/2023 [id number] / / [id number] [employer] 10fr 7cm Biliary Stent [id number] - [id number] Explanted:Qty: 1 on 04/10/2023 by John De Anda MD at [facility] [employer] [id number] 12/13/2024 [id number] / / [id number] Description:Unable to place despite multiple attempts Procedures Procedure Name Priority Date/Time Associated Diagnosis Comments POCT GLUCOSE DEVICE Routine 08/21/2024 7 :30 AM CDT POCT GLUCOSE DEVICE Routine 08/21/2024 5 :37 AM CDT CP-CRE CULTURE, SURVEILLANCE Routine 08/21/2024 5:26 AM CDT INFECTION PREVENTION LANNY AURIS PCR, SURVEILLANCE Routine 08/21/2024 5:26 AM CDT EGFR Routine 08/21/2024 4:48 AM CDT DIFFERENTIAL AUTO Routine 08/21/2024 4:4 8 AM CDT PHOSPHORUS Routine 08/21/2024 4:48 AM CDT MAGNESIUM Routine 08/21/2024 4:48 AM CDT HEPATIC FUNCTION PANEL Routine 08/21/2024 4:48 AM CDT CBC WITH AUTO DIFFERENTIAL Routine 08/21/2024 4:48 AM CDT BASIC METABOLIC PANEL Routine 08/21/2024 4:48 AM CDT POCT GLUCOSE DEVICE Routine 08/20/2024 8 :23 PM CDT POCT GLUCOSE DEVICE Routine 08/20/2024 5 :21 PM CDT POCT GLUCOSE DEVICE Routine 08/20/2024 1 2:20 PM CDT POCT GLUCOSE DEVICE Routine 08/20/2024 7 :43 AM CDT EGFR Routine 08/20/2024 5:13 AM CDT DIFFERENTIAL AUTO Routine 08/20/2024 5:1 3 AM CDT PHOSPHORUS Routine 08/20/2024 5:13 AM CDT MAGNESIUM Routine 08/20/2024 5:13 AM CDT HEPATIC FUNCTION PANEL Routine 08/20/2024 5:13 AM CDT CBC WITH AUTO DIFFERENTIAL Routine 08/20/2024 5:13 AM CDT BASIC METABOLIC PANEL Routine 08/20/2024 5:13 AM CDT POCT GLUCOSE DEVICE Routine 08/20/2024 3 :12 AM CDT POCT GLUCOSE DEVICE Routine 08/20/2024 1 :38 AM CDT POCT GLUCOSE DEVICE Routine 08/19/2024 1 1:45 PM CDT POCT GLUCOSE DEVICE Routine 08/19/2024 1 0:24 PM CDT POCT GLUCOSE DEVICE Routine 08/19/2024 9 :55 PM CDT POCT GLUCOSE DEVICE Routine 08/19/2024 8 :07 PM CDT POCT GLUCOSE DEVICE Routine 08/19/2024 7 :24 PM CDT EGFR Routine 08/18/2024 10:25 PM CDT DIFFERENTIAL AUTO Routine 08/18/2024 10: 25 PM CDT PHOSPHORUS Routine 08/18/2024 10:25 PM CDT MAGNESIUM Routine 08/18/2024 10:25 PM CDT HEPATIC FUNCTION PANEL Routine 08/18/2024 10:25 PM CDT CBC WITH AUTO DIFFERENTIAL Routine 08/18/2024 10:25 PM CDT BASIC METABOLIC PANEL Routine 08/18/2024 10:25 PM CDT EGFR Routine 08/17/2024 8:00 PM CDT DIFFERENTIAL AUTO Routine 08/17/2024 8:0 0 PM CDT PHOSPHORUS Routine 08/17/2024 8:00 PM CDT MAGNESIUM Routine 08/17/2024 8:00 PM CDT HEPATIC FUNCTION PANEL Routine 08/17/2024 8:00 PM CDT CBC WITH AUTO DIFFERENTIAL Routine 08/17/2024 8:00 PM CDT BASIC METABOLIC PANEL Routine 08/17/2024 8:00 PM CDT BLOOD CULTURE Routine 08/17/2024 12:12 PM CDT BLOOD CULTURE STAT 08/17/2024 12:12 PM CDT C. DIFFICILE TESTING Routine 08/17/2024 10:50 AM CDT EGFR Routine 08/16/2024 11:14 PM CDT DIFFERENTIAL AUTO Routine 08/16/2024 11: 14 PM CDT PHOSPHORUS Routine 08/16/2024 11:14 PM CDT MAGNESIUM Routine 08/16/2024 11:14 PM CDT HEPATIC FUNCTION PANEL Routine 08/16/2024 11:14 PM CDT CBC WITH AUTO DIFFERENTIAL Routine 08/16/2024 11:14 PM CDT BASIC METABOLIC PANEL Routine 08/16/2024 11:14 PM CDT XR TRANSFER OF OUTSIDE FILMS Routine 08/16/2024 7:30 PM CDT MR BODY OUTSIDE CONSULT Routine 08/16/2024 6:03 PM CDT XR TRANSFER OF OUTSIDE FILMS Routine 08/16/2024 6:01 PM CDT XR TRANSFER OF OUTSIDE FILMS Routine 08/16/2024 6:[address] BODY OUTSIDE CONSULT Routine 08/16/2024 5:59 PM CDT INFECTION PREVENTION LANNY AURIS PCR, SURVEILLANCE Routine 08/16/2024 2:[address] CHEST ABDOMEN PELVIS W CONTRAST ED Urgent/IP Urgent 08/16/2024 11:53 AM CDT CALPROTECTIN, FECAL Routine 08/16/2024 1 0:31 AM CDT STOOL CULTURE Routine 08/16/2024 10:31 AM CDT NOROVIRUS PCR Routine 08/16/2024 10:31 AM CDT C. DIFFICILE TESTING Routine 08/16/2024 10:31 AM CDT INFECTION PREVENTION VRE CULTURE Routine 08/16/2024 10:27 AM CDT DIFFERENTIAL AUTO Routine 08/16/2024 5:1 6 AM CDT FERRITIN Timed 08/16/2024 5:16 AM CDT FOLATE Timed 08/16/2024 5:16 AM CDT VITAMIN B12 Timed 08/16/2024 5:16 AM CDT IRON PROFILE W/ IBC Timed 08/16/2024 5 :16 AM CDT HEPATIC FUNCTION PANEL Routine 08/16/2024 5:16 AM CDT PHOSPHORUS Routine 08/16/2024 5:16 AM CDT MAGNESIUM Routine 08/16/2024 5:16 AM CDT CBC WITH AUTO DIFFERENTIAL Routine 08/16/2024 5:16 AM CDT ECG 12-LEAD Routine 08/16/2024 1:04 AM CDT RESPIRATORY PATHOGEN PANEL Routine 08/16/2024 12:17 AM CDT URINALYSIS AND REFLEX TO MICROSCOPIC AND CULTURE Timed 08/16/2024 12:17 AM CDT EGFR STAT 08/15/2024 11:28 PM CDT DIFFERENTIAL AUTO STAT 08/15/2024 11: 28 PM CDT LIPASE Timed 08/15/2024 11:28 PM CDT THYROID FUNCTION CASCADE Timed 08/15/2024 11:28 PM CDT HEMOGLOBIN A1C Timed 08/15/2024 11:28 PM CDT APTT Timed 08/15/2024 11:28 PM CDT PROTIME-INR Timed 08/15/2024 11:28 PM CDT TYPE AND SCREEN Timed 08/15/2024 11:28 PM CDT CBC WITH AUTO DIFFERENTIAL STAT 08/15/2024 11:28 PM CDT LIPID PANEL STAT 08/15/2024 11:28 PM CDT PHOSPHORUS STAT 08/15/2024 11:28 PM CDT MAGNESIUM STAT 08/15/2024 11:28 PM CDT COMPREHENSIVE METABOLIC PANEL STAT 08/15/2024 11:28 PM CDT RPR Timed 08/15/2024 11:28 PM CDT HEPATITIS C ANTIBODY Timed 08/15/2024 11:28 PM CDT HEPATITIS B SURFACE ANTIGEN Timed 08/15/2024 11:28 PM CDT HIV 1/2 ANTIBODY PLUS P24 ANTIGEN Timed 08/15/2024 11:28 PM CDT EGFR STAT 07/23/2024 11:01 AM [employer] AND JOINING SUPERVISOR DIFFERENTIAL AUTO STAT 07/23/2024 11: 01 AM [employer]ING AND JOINING SUPERVISOR ETHANOL STAT 07/23/2024 11:01 AM [employer]ING AND JOINING SUPERVISOR CBC WITH AUTO DIFFERENTIAL STAT 07/23/2024 11:01 AM [employer]ING AND JOINING SUPERVISOR COMPREHENSIVE METABOLIC PANEL STAT 07/23/2024 11:01 AM B[employer]ING AND JOINING SUPERVISOR from Last 3 Months Results * (ABNORMAL) POCT glucose (08/21/2024 7:30 AM CDT) Glucose, POC 206(H) 70 - 199 mg/dL Blood 08/21/2024 7:30 AM CDT 08/21/2024 7:30 AM CDT us Arley Cheung MD LAB POCT ORDERABLES - DEVIC E Final Result [facility] Department [place] [address] * POCT glucose (08/21/2024 5:37 AM CDT) Glucose, POC 113 70 - 199 mg/dL Blood 08/21/2024 5:37 AM CDT 08/21/2024 5:37 AM CDT Arley Cheung MD LAB POCT ORDERABLES - DEVIC E Final Result Performing Organization Address [facility] de Phone Number [facility] Department [place] [address] * Infection Prevention Lanny auris PCR, surveillance Axilla/Groin (08/21/2024 5:26 AM CDT) Lanny auris DNA Not Detected Not Detected [facility] Comment: Interpretive Data Testing performed by [facility] Molecular Infectious Disease Laboratory using the [employer] johnny [id number] Lanny auris assay. This assay detects DNA from Lanny auris using Real-Time PCR. This assay is laboratory developed and is not cleared by the [facility] Food and Drug Administration. The performance characteristics have been verified by the [facility] Molecular Infectious Disease Laboratory. Axilla/Groin 08/21/2024 5:26 AM CDT 08/21/2024 6:32 AM CDT Michael Claudio MD LAB MICROBIOLOGY - GENERAL ORDER DELIO Final Result Performing Organization Address [facility] de Phone Number [facility] Department [place] [address] [facility] * CP-CRE culture, surveillance Rectal swab (08/21/2024 5:26 AM CDT) Report Final Report: Negative Rectal swab 08/21/2024 5:26 AM CDT 08/21/2024 6:39 AM CDT Narrative [facility] - 08/22/2024 11:59 AM CDT Interpretive Data The screening agar used for the detection of carbapenemase-producing Enterobacterales (CP-CRE) has not been approved by the Food and Drug Administration. The performance characteristics of this medium have been evaluated and verified by the [facility] Microbiology Laboratory. This media demonstrates highest sensitivity for KPC and NDM-1 producing isolates. This screening assay is exclusively intended for infection control and surveillance, not for patient diagnosis or treatment purposes. Current interpretive data was last revised on 2023. Michael Claudio MD LAB MICROBIOLOGY - GENERAL ORDER DEILO Final Result Performing Organization Address City/[facility]/ZIP Co de Phone Number [facility] [place] [address] * eGFR (08/21/2024 4:48 AM CDT) Pathologist [facility] eGFR >90 >=60 mL/min/1. 73 m2 Comment: [...] interpretive data was last reviewed 2021. Blood 08/21/2024 4:48 AM CDT 08/21/2024 5:47 AM CDT us Arley Cheung MD LAB BLOOD ORDERABLES Final Result Performing Organization Address City/[facility]/ZIP Co de Phone Number [facility] Department [place] [address] * Differential, auto (08/21/2024 4:48 AM CDT) Neutrophil abs 6.0 1.5 - 6.5 K/cumm Imm gran abs 0.0 0.0 - 0.1 K/cumm [facility] Lymphocyte abs 1.6 0.8 - 3.3 K/cumm [facility] Monocyte abs 0.7 0.2 - 0.8 K/cumm [facility] Eosinophil abs 0.3 0.0 - 0.5 K/cumm [facility] Basophil abs 0.1 0.0 - 0.1 K/cumm [facility] Neutrophil pct 68.4 % [facility] Comment: Interpretive Data Percent cell count reference ranges are not reported, since discordance with absolute values may lead to misinterpretation of CBC data. Current Interpretive Data was last revised on 2017. Imm gran pct 0.3 % [facility] Comment: Interpretive Data Percent cell count reference ranges are not reported, since discordance with absolute values may lead to misinterpretation of CBC data. Current Interpretive Data was last revised on 2017. Lymphocyte pct 18.6 % [facility] Comment: Interpretive Data Percent cell count reference ranges are not reported, since discordance with absolute values may lead to misinterpretation of CBC data. Current Interpretive Data was last revised on 2017. Monocyte pct 8.2 % [facility] Comment: Interpretive Data Percent cell count reference ranges are not reported, since discordance with absolute values may lead to misinterpretation of CBC data. Current Interpretive Data was last revised on 2017. Eosinophil pct 3.2 % [facility] Comment: Interpretive Data Percent cell count reference ranges are not reported, since discordance with absolute values may lead to misinterpretation of CBC data. Current Interpretive Data was last revised on 2017. Basophil pct 1.3 % [facility] Comment: Interpretive Data Percent cell count reference ranges are not reported, since discordance with absolute values may lead to misinterpretation of CBC data. Current Interpretive Data was last revised on 2017. Blood 08/21/2024 4:48 AM CDT 08/21/2024 5:47 AM CDT Arley Cheung MD LAB BLOOD ORDERABLES Final Result Performing Organization Address [facility] Co de Phone Number [facility] Department [place] [address] * (ABNORMAL) CBC with auto differential (08/21/2024 4:48 AM CDT) [facility] WBC 8.8 3.8 - 9.9 K/cumm Hgb 10.4(L) 13.0 - 17.5 g/dL [facility] Hct 31.8(L) 38.9 - 50.3 % [facility] Plt 609(H) 150 - 400 K/cumm [facility] MPV 9.3 9.1 - 12.3 fL [facility] RBC 3.53(L) 4.30 - 5.80 M/cumm [facility] MCV 90.1 81.3 - 96.4 fL [facility] MCH 29.5 27.1 - 33.3 pg [facility] MCHC 32.7 32.3 - 35.7 g/dL [facility] RDW CV 17.2(H) 11.1 - 14.9 % [facility] RDW SD 56.5(H) 35.7 - 48.1 fL [facility] NRBC abs 0.00 0.00 - 0.01 K/cumm [facility] Blood 08/21/2024 4:48 AM CDT 08/21/2024 5:47 AM CDT Arley Cheung MD LAB BLOOD ORDERABLES Final Result Performing Organization Address [facility] Co de Phone Number [facility] Department [place] [address] * Phosphorus (08/21/2024 4:48 AM CDT) Pathologist [facility] Phosphorus, pl 3.9 2.3 - 4.5 mg/dL Blood 08/21/2024 4:48 AM CDT 08/21/2024 5:47 AM CDT us Arley Cheung MD LAB BLOOD ORDERABLES Final Result [facility] Department [place] [address] * Magnesium (08/21/2024 4:48 AM CDT) [facility] Magnesium 1.9 1.4 - 2.5 mg/dL Blood 08/21/2024 4:48 AM CDT 08/21/2024 5:47 AM CDT Arley Cheung MD LAB BLOOD ORDERABLES Final Result Performing Organization Address [facility] Co de Phone Number [facility] [place] [address] * (ABNORMAL) Hepatic function panel (08/21/2024 4:48 AM CDT) [facility] Bilirubin, total <0.2 0.1 - 1.2 mg/dL Bilirubin, direct <0.2 0.1 - 0.3 mg/dL [facility] Protein, pl 6.2(L) 6.5 - 8.5 g/dL [facility] Albumin 3.1(L) 3.5 - 5.0 g/dL [facility] Alk phos 87 40 - 130 Units/L [facility] ALT 9 7 - 55 Units/L [facility] AST 18 10 - 50 Units/L [facility] Blood 08/21/2024 4:48 AM CDT 08/21/2024 5:47 AM CDT Arley Cheung MD LAB BLOOD ORDERABLES Final Result Performing Organization Address City/[facility]/ZIP Co de Phone Number [facility] [place] [address] * (ABNORMAL) Basic metabolic panel (08/21/2024 4:48 AM CDT) Sodium 139 135 - 145 mmol/L Potassium, pl 4.7 3.3 - 4.9 mmol/L [facility] Chloride 107 97 - 110 mmol/L [facility] CO2 26 22 - 32 mmol/L [facility] Anion gap 6 2 - 15 mmol/L [facility] BUN 5(L) 6 - 25 mg/dL [facility] Creatinine 0.73(L) 0.80 - 1.30 mg/dL [facility] Glucose 115 70 - 199 mg/dL [facility] Comment: Interpretive Data Fasting glucose >/= 126 [...] interpretive data was last revised 2022. Calcium 9.3 8.5 - 10.3 mg/dL [facility] Blood 08/21/2024 4:48 AM CDT 08/21/2024 5:47 AM CDT Arley Cheung MD LAB BLOOD ORDERABLES Final Result Performing Organization Address City/[facility]/ZIP Co de Phone Number [facility] Department [place] [address] * POCT glucose (08/20/2024 8:23 PM CDT) Glucose, POC 134 70 - 199 mg/dL Blood 08/20/2024 8:23 PM CDT 08/20/2024 8:23 PM CDT Arley Cheung MD LAB POCT ORDERABLES - DEVIC E Final Result Performing Organization Address [facility]/ZIP Co de Phone Number [facility] Department [place] [address] * POCT glucose (08/20/2024 5:21 PM CDT) Glucose, POC 165 70 - 199 mg/dL Blood 08/20/2024 5:21 PM CDT 08/20/2024 5:21 PM CDT Arley Cheung MD LAB POCT ORDERABLES - DEVIC E Final Result Performing Organization Address City/State/[facility] [place] [address] * POCT glucose (08/20/2024 12:20 PM CDT) Glucose, POC 74 70 - 199 mg/dL Blood 08/20/2024 12:2 0 PM CDT 08/20/2024 12:20 PM CDT Arley Cheung MD LAB POCT ORDERABLES - DEVIC E Final Result Performing Organization Address City/[facility] Co de Phone Number [facility] [place] [address] * POCT glucose (08/20/2024 7:43 AM CDT) Glucose, POC 97 70 - 199 mg/dL Blood 08/20/2024 7:43 AM CDT 08/20/2024 7:43 AM CDT us Arley Cheung MD LAB POCT ORDERABLES - DEVIC E Final Result Performing Organization Address City/[facility] [place] [address] * eGFR (08/20/2024 5:13 AM CDT) eGFR >90 >=60 mL/min/1. 73 m2 Comment: [...] interpretive data was last reviewed 2021. Blood 08/20/2024 5:13 AM CDT 08/20/2024 5:41 AM CDT us Arley Cheung MD LAB BLOOD ORDERABLES Final Result [facility] Department [place] [address] * (ABNORMAL) Differential, auto (08/20/2024 5:13 AM CDT) Pathologist [facility] Neutrophil abs 2.5 1.5 - 6.5 K/cumm Imm gran abs 0.0 0.0 - 0.1 K/cumm [facility] Lymphocyte abs 2.3 0.8 - 3.3 K/cumm [facility] Monocyte abs 0.6 0.2 - 0.8 K/cumm [facility] Eosinophil abs 0.3 0.0 - 0.5 K/cumm [facility] Basophil abs 0.2(H) 0.0 - 0.1 K/cumm [facility] Neutrophil pct 42.6 % [facility] Comment: Interpretive Data Percent cell count reference ranges are not reported, since discordance with absolute values may lead to misinterpretation of CBC data. Current Interpretive Data was last revised on 2017. Imm gran pct 0.3 % [facility] Comment: Interpretive Data Percent cell count reference ranges are not reported, since discordance with absolute values may lead to misinterpretation of CBC data. Current Interpretive Data was last revised on 2017. Lymphocyte pct 39.7 % [facility] Comment: Interpretive Data Percent cell count reference ranges are not reported, since discordance with absolute values may lead to misinterpretation of CBC data. Current Interpretive Data was last revised on 2017. Monocyte pct 9.7 % [facility] Comment: Interpretive Data Percent cell count reference ranges are not reported, since discordance with absolute values may lead to misinterpretation of CBC data. Current Interpretive Data was last revised on 2017. Eosinophil pct 5.1 % [facility] Comment: Interpretive Data Percent cell count reference ranges are not reported, since discordance with absolute values may lead to misinterpretation of CBC data. Current Interpretive Data was last revised on 2017. Basophil pct 2.6 % [facility] Comment: Interpretive Data Percent cell count reference ranges are not reported, since discordance with absolute values may lead to misinterpretation of CBC data. Current Interpretive Data was last revised on 2017. Blood 08/20/2024 5:13 AM CDT 08/20/2024 5:40 AM CDT us Arley Cheung MD LAB BLOOD ORDERABLES Final Result [facility] Department [place] [address] * (ABNORMAL) CBC with auto differential (08/20/2024 5:13 AM CDT) WBC 5.9 3.8 - 9.9 K/cumm Hgb 10.8(L) 13.0 - 17.5 g/dL [facility] Hct 32.6(L) 38.9 - 50.3 % [facility] Plt 628(H) 150 - 400 K/cumm [facility] MPV 8.8(L) 9.1 - 12.3 fL [facility] RBC 3.62(L) 4.30 - 5.80 M/cumm [facility] MCV 90.1 81.3 - 96.4 fL [facility] MCH 29.8 27.1 - 33.3 pg [facility] MCHC 33.1 32.3 - 35.7 g/dL [facility] RDW CV 17.2(H) 11.1 - 14.9 % [facility] RDW SD 57.0(H) 35.7 - 48.1 fL [facility] NRBC abs 0.00 0.00 - 0.01 K/cumm [facility] Blood 08/20/2024 5:13 AM CDT 08/20/2024 5:40 AM CDT us Arley Cheung MD LAB BLOOD ORDERABLES Final Result Performing Organization Address City/[facility]/ZIP Co de Phone Number [facility] Department [place] [address] * Phosphorus (08/20/2024 5:13 AM CDT) Phosphorus, pl 3.3 2.3 - 4.5 mg/dL Blood 08/20/2024 5:13 AM CDT 08/20/2024 5:41 AM CDT us Arley Cheung MD LAB BLOOD ORDERABLES Final Result [facility] Department [place] [address] * Magnesium (08/20/2024 5:13 AM CDT) Magnesium 2.0 1.4 - 2.5 mg/dL Blood 08/20/2024 5:13 AM CDT 08/20/2024 5:41 AM CDT us Arley Cheung MD LAB BLOOD ORDERABLES Final Result Performing Organization Address City/[facility] Co de Phone Number [facility] [place] [address] * (ABNORMAL) Hepatic function panel (08/20/2024 5:13 AM CDT) [facility] Bilirubin, total <0.2 0.1 - 1.2 mg/dL Bilirubin, direct <0.2 0.1 - 0.3 mg/dL [facility] Protein, pl 6.7 6.5 - 8.5 g/dL [facility] Albumin 3.4(L) 3.5 - 5.0 g/dL [facility] Alk phos 87 40 - 130 Units/L [facility] ALT 13 7 - 55 Units/L [facility] AST 17 10 - 50 Units/L [facility] Blood 08/20/2024 5:13 AM CDT 08/20/2024 5:41 AM CDT Arley Cheung MD LAB BLOOD ORDERABLES Final Result Performing Organization Address [facility] Co de Phone Number [facility] [place] [address] * (ABNORMAL) Basic metabolic panel (08/20/2024 5:13 AM CDT) Pathologist [facility] Sodium 141 135 - 145 mmol/L Potassium, pl 4.4 3.3 - 4.9 mmol/L [facility] Chloride 105 97 - 110 mmol/L [facility] CO2 26 22 - 32 mmol/L [facility] Anion gap 10 2 - 15 mmol/L [facility] BUN 4(L) 6 - 25 mg/dL [facility] Creatinine 0.80 0.80 - 1.30 mg/dL [facility] Glucose 98 70 - 199 mg/dL [facility] Comment: Interpretive Data Fasting glucose >/= 126 [...] interpretive data was last revised 2022. Calcium 9.5 8.5 - 10.3 mg/dL [facility] Blood 08/20/2024 5:13 AM CDT 08/20/2024 5:41 AM CDT us Arley Cheung MD LAB BLOOD ORDERABLES Final Result Performing Organization Address [facility] Co de Phone Number [facility] [place] [address] * POCT glucose (08/20/2024 3:12 AM CDT) Glucose, POC 110 70 - 199 mg/dL Blood 08/20/2024 3:12 AM CDT 08/20/2024 3:12 AM CDT us Arley Cheung MD LAB POCT ORDERABLES - DEVIC E Final Result Performing Organization Address City/[facility] Co de Phone Number [facility] Department [place] [address] * POCT glucose (08/20/2024 1:38 AM CDT) Glucose, POC 166 70 - 199 mg/dL Blood 08/20/2024 1:38 AM CDT 08/20/2024 1:38 AM CDT us Arley Cheung MD LAB POCT ORDERABLES - DEVIC E Final Result Performing Organization Address [facility] Co de Phone Number [facility] Department [place] [address] * (ABNORMAL) POCT glucose (08/19/2024 11:45 PM CDT) Glucose, POC 210(H) 70 - 199 mg/dL Blood 08/19/2024 11:4 5 PM CDT 08/19/2024 11:45 PM CDT Arley Cheung MD LAB POCT ORDERABLES - DEVIC E Final Result Performing Organization Address City/[facility] Co de Phone Number [facility] [place] [address] * POCT glucose (08/19/2024 10:24 PM CDT) Glucose, POC 112 70 - 199 mg/dL Blood 08/19/2024 10:2 4 PM CDT 08/19/2024 10:24 PM CDT Arley Cheung MD LAB POCT ORDERABLES - DEVIC E Final Result Performing Organization Address City/[facility] Co de Phone Number [facility] Department [place] [address] * POCT glucose (08/19/2024 9:55 PM CDT) Glucose, POC 100 70 - 199 mg/dL Blood 08/19/2024 9:55 PM CDT 08/19/2024 9:55 PM CDT us Arley Cheung MD LAB POCT ORDERABLES - DEVIC E Final Result Performing Organization Address City/[facility] Co de Phone Number [facility] [place] [address] * (ABNORMAL) POCT glucose (08/19/2024 8:07 PM CDT) Glucose, POC 376(H) 70 - 199 mg/dL Blood 08/19/2024 8:07 PM CDT 08/19/2024 8:07 PM CDT us Arley Cheung MD LAB POCT ORDERABLES - DEVIC E Final Result [facility] Department [place] [address] * (ABNORMAL) POCT glucose (08/19/2024 7:24 PM CDT) Glucose, POC 325(H) 70 - 199 mg/dL Blood 08/19/2024 7:24 PM CDT 08/19/2024 7:24 PM CDT Arley Cheung MD LAB POCT ORDERABLES - DEVIC E Final Result Performing Organization Address City/[facility] Co de Phone Number [facility] Department [place] [address] * eGFR (08/18/2024 10:25 PM CDT) eGFR >90 >=60 mL/min/1. 73 m2 Comment: [...] interpretive data was last reviewed 2021. Blood 08/18/2024 10:2 5 PM CDT 08/18/2024 10:47 PM CDT Arley Cheung MD LAB BLOOD ORDERABLES Final Result [facility] [place] [address] * (ABNORMAL) Differential, auto (08/18/2024 10:25 PM CDT) Neutrophil abs 3.7 1.5 - 6.5 K/cumm Imm gran abs 0.0 0.0 - 0.1 K/cumm [facility] Lymphocyte abs 2.0 0.8 - 3.3 K/cumm [facility] Monocyte abs 0.9(H) 0.2 - 0.8 K/cumm [facility] Eosinophil abs 0.3 0.0 - 0.5 K/cumm [facility] Basophil abs 0.1 0.0 - 0.1 K/cumm [facility] Neutrophil pct 52.6 % [facility] Comment: Interpretive Data Percent cell count reference ranges are not reported, since discordance with absolute values may lead to misinterpretation of CBC data. Current Interpretive Data was last revised on 2017. Imm gran pct 0.3 % [facility] Comment: Interpretive Data Percent cell count reference ranges are not reported, since discordance with absolute values may lead to misinterpretation of CBC data. Current Interpretive Data was last revised on 2017. Lymphocyte pct 29.0 % [facility] Comment: Interpretive Data Percent cell count reference ranges are not reported, since discordance with absolute values may lead to misinterpretation of CBC data. Current Interpretive Data was last revised on 2017. Monocyte pct 12.8 % [facility] Comment: Interpretive Data Percent cell count reference ranges are not reported, since discordance with absolute values may lead to misinterpretation of CBC data. Current Interpretive Data was last revised on 2017. Eosinophil pct 4.0 % [facility] Comment: Interpretive Data Percent cell count reference ranges are not reported, since discordance with absolute values may lead to misinterpretation of CBC data. Current Interpretive Data was last revised on 2017. Basophil pct 1.3 % [facility] Comment: Interpretive Data Percent cell count reference ranges are not reported, since discordance with absolute values may lead to misinterpretation of CBC data. Current Interpretive Data was last revised on 2017. Blood 08/18/2024 10:2 5 PM CDT 08/18/2024 10:49 PM CDT us Arley Cheung MD LAB BLOOD ORDERABLES Final Result [facility] Department [place] [address] * (ABNORMAL) CBC with auto differential (08/18/2024 10:25 PM CDT) WBC 6.9 3.8 - 9.9 K/cumm Hgb 10.6(L) 13.0 - 17.5 g/dL [facility] Hct 32.5(L) 38.9 - 50.3 % [facility] Plt 700(H) 150 - 400 K/cumm [facility] MPV 8.7(L) 9.1 - 12.3 fL [facility] RBC 3.60(L) 4.30 - 5.80 M/cumm [facility] MCV 90.3 81.3 - 96.4 fL [facility] MCH 29.4 27.1 - 33.3 pg [facility] MCHC 32.6 32.3 - 35.7 g/dL [facility] RDW CV 17.6(H) 11.1 - 14.9 % [facility] RDW SD 57.7(H) 35.7 - 48.1 fL [facility] NRBC abs 0.00 0.00 - 0.01 K/cumm [facility] Blood 08/18/2024 10:2 5 PM CDT 08/18/2024 10:49 PM CDT Arley Cheung MD LAB BLOOD ORDERABLES Final Result Performing Organization Address City/[facility] Co de Phone Number [facility] [place] [address] * Phosphorus (08/18/2024 10:25 PM CDT) Phosphorus, pl 3.3 2.3 - 4.5 mg/dL Blood 08/18/2024 10:2 5 PM CDT 08/18/2024 10:47 PM CDT Arley Cheung MD LAB BLOOD ORDERABLES Final Result Performing Organization Address [facility] Co de Phone Number [facility] [place] [address] * Magnesium (08/18/2024 10:25 PM CDT) Magnesium 1.9 1.4 - 2.5 mg/dL Blood 08/18/2024 10:2 5 PM CDT 08/18/2024 10:47 PM CDT Arley Cheung MD LAB BLOOD ORDERABLES Final Result Performing Organization Address [facility] Co de Phone Number [facility] [place] [address] * Hepatic function panel (08/18/2024 10:25 PM CDT) Bilirubin, total <0.2 0.1 - 1.2 mg/dL Bilirubin, direct <0.2 0.1 - 0.3 mg/dL [facility] Protein, pl 7.1 6.5 - 8.5 g/dL [facility] Albumin 3.5 3.5 - 5.0 g/dL [facility] Alk phos 98 40 - 130 Units/L [facility] ALT 12 7 - 55 Units/L [facility] AST 17 10 - 50 Units/L [facility] Blood 08/18/2024 10:2 5 PM CDT 08/18/2024 10:47 PM CDT Arley Cheung MD LAB BLOOD ORDERABLES Final Result [facility] Department [place] [address] * (ABNORMAL) Basic metabolic panel (08/18/2024 10:25 PM CDT) [facility] Sodium 144 135 - 145 mmol/L Potassium, pl 4.3 3.3 - 4.9 mmol/L [facility] Chloride 105 97 - 110 mmol/L [facility] CO2 30 22 - 32 mmol/L [facility] Anion gap 9 2 - 15 mmol/L [facility] BUN 3(L) 6 - 25 mg/dL [facility] Creatinine 0.72(L) 0.80 - 1.30 mg/dL [facility] Glucose 109 70 - 199 mg/dL [facility] Comment: Interpretive Data Fasting glucose >/= 126 [...] interpretive data was last revised 2022. Calcium 9.6 8.5 - 10.3 mg/dL [facility] [facility] Blood 08/18/2024 10:2 5 PM CDT 08/18/2024 10:47 PM CDT Arley Cheung MD LAB BLOOD ORDERABLES Final Result Performing Organization Address City/[facility]/ZIP Co de Phone Number [facility] [place] [address] * eGFR (08/17/2024 8:00 PM CDT) [facility] eGFR >90 >=60 mL/min/1. 73 m2 Comment: [...] interpretive data was last reviewed 2021. Blood 08/17/2024 8:00 PM CDT 08/17/2024 8:22 PM CDT Arley Cheung MD LAB BLOOD ORDERABLES Final Result [facility] [place] [address] * (ABNORMAL) Differential, auto (08/17/2024 8:00 PM CDT) Pathologist [facility] Neutrophil abs 6.5 1.5 - 6.5 K/cumm Imm gran abs 0.0 0.0 - 0.1 K/cumm [facility] Lymphocyte abs 1.3 0.8 - 3.3 K/cumm [facility] Monocyte abs 0.9(H) 0.2 - 0.8 K/cumm [facility] Eosinophil abs 0.2 0.0 - 0.5 K/cumm [facility] Basophil abs 0.1 0.0 - 0.1 K/cumm [facility] Neutrophil pct 71.5 % [facility] Comment: Interpretive Data Percent cell count reference ranges are not reported, since discordance with absolute values may lead to misinterpretation of CBC data. Current Interpretive Data was last revised on 2017. Imm gran pct 0.3 % [facility] Comment: Interpretive Data Percent cell count reference ranges are not reported, since discordance with absolute values may lead to misinterpretation of CBC data. Current Interpretive Data was last revised on 2017. Lymphocyte pct 14.5 % [facility] Comment: Interpretive Data Percent cell count reference ranges are not reported, since discordance with absolute values may lead to misinterpretation of CBC data. Current Interpretive Data was last revised on 2017. Monocyte pct 10.2 % [facility] Comment: Interpretive Data Percent cell count reference ranges are not reported, since discordance with absolute values may lead to misinterpretation of CBC data. Current Interpretive Data was last revised on 2017. Eosinophil pct 2.6 % [facility] Comment: Interpretive Data Percent cell count reference ranges are not reported, since discordance with absolute values may lead to misinterpretation of CBC data. Current Interpretive Data was last revised on 2017. Basophil pct 0.9 % [facility] Comment: Interpretive Data Percent cell count reference ranges are not reported, since discordance with absolute values may lead to misinterpretation of CBC data. Current Interpretive Data was last revised on 2017. Blood 08/17/2024 8:00 PM CDT 08/17/2024 8:22 PM CDT us Arley Cheung MD LAB BLOOD ORDERABLES Final Result [facility] [place] [address] * (ABNORMAL) CBC with auto differential (08/17/2024 8:00 PM CDT) WBC 9.1 3.8 - 9.9 K/cumm Hgb 9.8(L) 13.0 - 17.5 g/dL [facility] Hct 29.8(L) 38.9 - 50.3 % [facility] Plt 670(H) 150 - 400 K/cumm [facility] MPV 8.9(L) 9.1 - 12.3 fL [facility] RBC 3.32(L) 4.30 - 5.80 M/cumm [facility] MCV 89.8 81.3 - 96.4 fL [facility] MCH 29.5 27.1 - 33.3 pg [facility] MCHC 32.9 32.3 - 35.7 g/dL [facility] RDW CV 17.4(H) 11.1 - 14.9 % [facility] RDW SD 57.1(H) 35.7 - 48.1 fL [facility] NRBC abs 0.00 0.00 - 0.01 K/cumm [facility] Blood 08/17/2024 8:00 PM CDT 08/17/2024 8:22 PM CDT Arley Cheung MD LAB BLOOD ORDERABLES Final Result [facility] Department [place] [address] * (ABNORMAL) Phosphorus (08/17/2024 8:00 PM CDT) Pathologist [facility] Phosphorus, pl 2.2(L) 2.3 - 4.5 mg/dL Blood 08/17/2024 8:00 PM CDT 08/17/2024 8:22 PM CDT Arley Cheung MD LAB BLOOD ORDERABLES Final Result [facility] [place] [address] * Magnesium (08/17/2024 8:00 PM CDT) Magnesium 1.8 1.4 - 2.5 mg/dL Blood 08/17/2024 8:00 PM CDT 08/17/2024 8:22 PM CDT Arley Cheung MD LAB BLOOD ORDERABLES Final Result Performing Organization Address [facility] [place] [address] * (ABNORMAL) Hepatic function panel (08/17/2024 8:00 PM CDT) [facility] Bilirubin, total <0.2 0.1 - 1.2 mg/dL Bilirubin, direct <0.2 0.1 - 0.3 mg/dL [facility] Protein, pl 6.7 6.5 - 8.5 g/dL [facility] Albumin 3.3(L) 3.5 - 5.0 g/dL [facility] Alk phos 106 40 - 130 Units/L [facility] ALT 13 7 - 55 Units/L [facility] AST 17 10 - 50 Units/L [facility] Blood 08/17/2024 8:00 PM CDT 08/17/2024 8:22 PM CDT Arley Cheung MD LAB BLOOD ORDERABLES Final Result Performing Organization Address [facility] [place] [address] * (ABNORMAL) Basic metabolic panel (08/17/2024 8:00 PM CDT) [facility] Sodium 142 135 - 145 mmol/L Potassium, pl 3.7 3.3 - 4.9 mmol/L [facility] Chloride 106 97 - 110 mmol/L [facility] CO2 25 22 - 32 mmol/L [facility] Anion gap 11 2 - 15 mmol/L [facility] BUN 6 6 - 25 mg/dL [facility] Creatinine 0.74(L) 0.80 - 1.30 mg/dL [facility] Glucose 143 70 - 199 mg/dL [facility] Comment: Interpretive Data Fasting glucose >/= 126 [...] interpretive data was last revised 2022. Calcium 9.3 8.5 - 10.3 mg/dL [facility] Blood 08/17/2024 8:00 PM CDT 08/17/2024 8:22 PM CDT Arley Cheung MD LAB BLOOD ORDERABLES Final Result [facility] [place] [address] * Blood culture Blood (08/17/2024 12:12 PM CDT) Report Final Report: No growth Blood 08/17/2024 12:1 2 PM CDT 08/17/2024 12:29 PM CDT Narrative [facility] - 08/21/2024 4:00 PM CDT From a different site than #1. Collection->Peripheral 1. Blood cultures are incubated for 4 days on a continuously monitored blood culture system. The first report of a negative culture is issued within 24 hours of receipt of the specimen in the laboratory. 2. Positive culture results are reported as soon as they are detected. 3. The most important factor for detection of microbes in the setting of bloodstream infection is the volume of blood submitted for culture. Failure to collect an optimal blood volume can result in false negative blood cultures. 4. For pediatric patients, the recommended blood volume to collect follows a weight based strategy. See the electronic test catalog for collection instructions. 5. For positive blood cultures, a rapid molecular test may be performed for organism identification using the johnny ePlex blood culture identification panel for gram positive (BCID-GP) and gram negative (BCID-GN) organisms. This nucleic acid amplification test detects microbial DNA in positive blood culture broth. This assay has been cleared by the [place] Food and Drug Administration and its performance characteristics have been verified by the [facility] Microbiology Laboratory. For questions about this culture, contact the Microbiology Laboratory at [phone]. Interpretive data was last revised on 24. Melecio Michelle MD LAB MICROBIOLOGY - GEN ERAL ORDERABLES Final Result [facility] Department [place] [address] * Blood culture Blood (08/17/2024 12:12 PM CDT) Report Final Report: No growth Blood 08/17/2024 12:1 2 PM CDT 08/17/2024 12:29 PM CDT Narrative [facility] - 08/21/2024 4:00 PM CDT Collection->Peripheral 1. Blood cultures are incubated for 4 days on a continuously monitored blood culture system. The first report of a negative culture is issued within 24 hours of receipt of the specimen in the laboratory. 2. Positive culture results are reported as soon as they are detected. 3. The most important factor for detection of microbes in the setting of bloodstream infection is the volume of blood submitted for culture. Failure to collect an optimal blood volume can result in false negative blood cultures. 4. For pediatric patients, the recommended blood volume to collect follows a weight based strategy. See the electronic test catalog for collection instructions. 5. For positive blood cultures, a rapid molecular test may be performed for organism identification using the johnny ePlex blood culture identification panel for gram positive (BCID-GP) and gram negative (BCID-GN) organisms. This nucleic acid amplification test detects microbial DNA in positive blood culture broth. This assay has been cleared by the [place] Food and Drug Administration and its performance characteristics have been verified by the [facility] Microbiology Laboratory. For questions about this culture, contact the Microbiology Laboratory at [phone]. Interpretive data was last revised on 24. Melecio Michelle MD LAB MICROBIOLOGY - GEN ERAL ORDERABLES Final Result [facility] [place] [address] * C. difficile testing Stool (08/17/2024 10:50 AM CDT) [facility] Result Negative Negative Toxin Result Negative Negative [facility] C. diff result Negative, free toxin Negative, free toxin [facility] C. diff interp Negative for toxigenic Clostridioides (Clostridium) difficile. Analysis was performed using a glutamate dehydrogenase antigen detection assay combined with a C. difficile toxin detection assay. [facility] Stool 08/17/2024 10:5 0 AM CDT 08/17/2024 11:00 AM CDT Narrative [facility] - 08/17/2024 11:31 AM CDT Testing for C. difficile is not recommended within 4 days of a negative result, 10 days of a positive, or 24 hours after laxative administration. If this order is clinically indicated, contact the lab and enter the passcode to complete this order.->[id number] Arley Cheung MD LAB MICROBIOLOGY - GENERAL ORDERABLES Final Result Performing Organization Address [facility] Co de Phone Number [facility] Department [place] [address] * eGFR (08/16/2024 11:14 PM CDT) [facility] eGFR >90 >=60 mL/min/1. 73 m2 Comment: [...] interpretive data was last reviewed 2021. Blood 08/16/2024 11:1 4 PM CDT 08/17/2024 1:03 AM CDT us Arley Cheung MD LAB BLOOD ORDERABLES Final Result [facility] Department [place] [address] * Differential, auto (08/16/2024 11:14 PM CDT) Pathologist [facility] Neutrophil abs 2.8 1.5 - 6.5 K/cumm Imm gran abs 0.0 0.0 - 0.1 K/cumm [facility] Lymphocyte abs 1.1 0.8 - 3.3 K/cumm [facility] Monocyte abs 0.8 0.2 - 0.8 K/cumm [facility] Eosinophil abs 0.3 0.0 - 0.5 K/cumm [facility] Basophil abs 0.1 0.0 - 0.1 K/cumm [facility] Neutrophil pct 53.8 % [facility] Comment: Interpretive Data Percent cell count reference ranges are not reported, since discordance with absolute values may lead to misinterpretation of CBC data. Current Interpretive Data was last revised on 2017. Imm gran pct 0.4 % [facility] Comment: Interpretive Data Percent cell count reference ranges are not reported, since discordance with absolute values may lead to misinterpretation of CBC data. Current Interpretive Data was last revised on 2017. Lymphocyte pct 22.2 % [facility] Comment: Interpretive Data Percent cell count reference ranges are not reported, since discordance with absolute values may lead to misinterpretation of CBC data. Current Interpretive Data was last revised on 2017. Monocyte pct 15.7 % [facility] Comment: Interpretive Data Percent cell count reference ranges are not reported, since discordance with absolute values may lead to misinterpretation of CBC data. Current Interpretive Data was last revised on 2017. Eosinophil pct 5.9 % [facility] Comment: Interpretive Data Percent cell count reference ranges are not reported, since discordance with absolute values may lead to misinterpretation of CBC data. Current Interpretive Data was last revised on 2017. Basophil pct 2.0 % [facility] Comment: Interpretive Data Percent cell count reference ranges are not reported, since discordance with absolute values may lead to misinterpretation of CBC data. Current Interpretive Data was last revised on 2017. Blood 08/16/2024 11:1 4 PM CDT 08/17/2024 1:03 AM CDT Arley Cheung MD LAB BLOOD ORDERABLES Final Result [facility] [place] [address] * (ABNORMAL) CBC with auto differential (08/16/2024 11:14 PM CDT) WBC 5.1 3.8 - 9.9 K/cumm Hgb 10.0(L) 13.0 - 17.5 g/dL [facility] Hct 30.6(L) 38.9 - 50.3 % [facility] Plt 702(H) 150 - 400 K/cumm [facility] MPV 9.0(L) 9.1 - 12.3 fL [facility] RBC 3.36(L) 4.30 - 5.80 M/cumm [facility] MCV 91.1 81.3 - 96.4 fL [facility] MCH 29.8 27.1 - 33.3 pg [facility] MCHC 32.7 32.3 - 35.7 g/dL [facility] RDW CV 17.5(H) 11.1 - 14.9 % [facility] RDW SD 58.3(H) 35.7 - 48.1 fL [facility] NRBC abs 0.00 0.00 - 0.01 K/cumm [facility] Blood 08/16/2024 11:1 4 PM CDT 08/17/2024 1:03 AM CDT Arley Cheung MD LAB BLOOD ORDERABLES Final Result Performing Organization Address City/State/[facility] Co de Phone Number [facility] [place] [address] * Phosphorus (08/16/2024 11:14 PM CDT) Phosphorus, pl 2.5 2.3 - 4.5 mg/dL Blood 08/16/2024 11:1 4 PM CDT 08/17/2024 1:03 AM CDT Arley Cheung MD LAB BLOOD ORDERABLES Final Result Performing Organization Address City/[facility] Co de Phone Number [facility] [place] [address] * Magnesium (08/16/2024 11:14 PM CDT) Magnesium 2.0 1.4 - 2.5 mg/dL Blood 08/16/2024 11:1 4 PM CDT 08/17/2024 1:03 AM CDT Arley Cheung MD LAB BLOOD ORDERABLES Final Result Performing Organization Address City/[facility] Co de Phone Number [facility] [place] [address] * (ABNORMAL) Hepatic function panel (08/16/2024 11:14 PM CDT) Bilirubin, total <0.2 0.1 - 1.2 mg/dL Comment:Reviewed Bilirubin, direct <0.2 0.1 - 0.3 mg/dL [facility] Protein, pl 6.6 6.5 - 8.5 g/dL [facility] Albumin 3.2(L) 3.5 - 5.0 g/dL [facility] Alk phos 111 40 - 130 Units/L [facility] ALT 12 7 - 55 Units/L [facility] AST 28 10 - 50 Units/L [facility] Blood 08/16/2024 11:1 4 PM CDT 08/17/2024 1:03 AM CDT Arley Cheung MD LAB BLOOD ORDERABLES Final Result [facility] [place] [address] * Basic metabolic panel (08/16/2024 11:14 PM CDT) Pathologist [facility] Sodium 140 135 - 145 mmol/L Potassium, pl 3.8 3.3 - 4.9 mmol/L [facility] Chloride 106 97 - 110 mmol/L [facility] CO2 23 22 - 32 mmol/L [facility] Anion gap 11 2 - 15 mmol/L [facility] BUN 6 6 - 25 mg/dL [facility] Creatinine 0.81 0.80 - 1.30 mg/dL [facility] Glucose 188 70 - 199 mg/dL [facility] Comment: Interpretive Data Fasting glucose >/= 126 [...] interpretive data was last revised 2022. Calcium 8.9 8.5 - 10.3 mg/dL [facility] Blood 08/16/2024 11:1 4 PM CDT 08/17/2024 1:03 AM CDT Arley Cheung MD LAB BLOOD ORDERABLES Final Result Performing Organization Address City/[facility]/ZIP Co de Phone Number [facility] [place] [address] * XR Outside Reference (08/16/2024 7:30 PM CDT) Impressions [email or web address] - 08/16/2024 7:30 PM CDT These images are for Reference purposes only and have not been reviewed by [facility]. There will be no report generated by a [facility] Radiologist. Narrative [facility] - 08/16/2024 7:30 PM CDT EXAMINATION: Images For Reference Purposes Only Melecio Michelle MD IMG XR PROCEDURES Maisha l Result Performing Organization Address [facility] Co de Phone Number [email or web address] * MR Body Outside Consult (08/16/2024 6:03 PM CDT) Anatomical Region Laterality Modality Body N/A Magnetic Resonan ce 08/17/2024 1:27 PM CDT Impressions 08/17/2024 7:17 PM CDT 1. 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 Debris/stones are present throughout the dilated proximal pancreatic duct. 2. Narrowing of the mid to distal common bile duct likely secondary to underlying strictures with interval exaggeration secondary to adjacent fluid collections/inflammatory changes. 3. 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 The intrahepatic portal and hepatic veins are patent on this examination. The findings, conclusions and recommendations within this report do not replace the initial findings, conclusions and recommendations made at the facility where the study was performed based upon the imaging and clinical condition at that time. Comparison with the prior report and clinical history is necessary. The provided images may or may not represent the circle source data set and thus may contain changes that may lower the accuracy of this second-opinion interpretation. Dictated by: Garrison Jiang M.D. The radiology attending physician has personally reviewed this study, and had reviewed and/or edited this written report and agrees with it. Electronically signed by: Yumiko Wilson M.D. Narrative 08/17/2024 7:17 PM CDT EXAMINATION: RADIOLOGY CONSULTATION ON OUTSIDE IMAGING STUDY STUDY INITIALLY PERFORMED: 08/09/[address] [facility]. TYPE OF STUDY: Multiple MRI/MRCP images of the abdomen with and without intravenous contrast are provided at the time of this interpretation. CONTRAST ROUTE: Contrast was administered via the intravenous route. The protocol was adequate to address the clinical question. The outside final report was not available at the time of this second opinion interpretation. TYPE OF CONSULTATION: Consult on outside imaging study with images submitted through Outside Image Sharing Service DATE OF CONSULTATION: 08/17/2024 7:34 AM HISTORY: Necrotizing pancreatitis. 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 COMPARISON: None available. FINDINGS: Liver: Normal size and morphology. Mild diffuse steatosis. No abnormal iron deposition. - Bile ducts: Left greater than right intrahepatic ductal dilatation. Common bile duct is normal in caliber proximally with mid to distal narrowing, greatest involving the distal most aspect secondary to suspected underlying stricture with superimposed adjacent inflammatory changes and fluid collection mass effect. - Focal liver lesions: None. - Vasculature: Main portal vein is occluded extending to the portosplenic confluence. Findings of cavernous transformation. The superior mesenteric vein is markedly narrowed or occluded with distal reconstitution. The splenic vein is occluded proximally, and patent distally. The intrahepatic portal veins and hepatic veins are patent. Conventional hepatic anatomy. Gallbladder: Distended. Normal wall thickness. Pancreas: Diffuse parenchymal edema and soft tissue swelling. Pancreatic head is hypoenhancing and has intrinsic hypointensity. Multiple tubular T2 hyperintensities are present throughout the pancreas representing dilated ductal side branches. Pancreatic duct is dilated proximally measuring up to 8 mm. Prominent debris and/or stones present throughout the proximal to mid pancreatic duct within the head/neck. Diffuse peripancreatic soft tissue stranding. 4.5 cm complex peripancreatic fluid collection with peripheral hyperenhancement extends to the hepatic hilum, new/increased from prior. No discrete communication with the pancreatic duct. An additional fluid collection is present adjacent to the pancreatic tail measuring up to 2.4 cm with layering debris. Spleen: Normal. Adrenals: Left adrenal adenomatous hyperplasia. Right adrenal gland is normal. Kidneys: No hydronephrosis or solid renal mass. Simple subcentimeter left renal cyst. Other Findings: Left basilar atelectasis. Heart size is normal without pericardial effusion. The distal esophagus is normal. Stomach is normal. Mild soft tissue thickening of the proximal duodenum, likely reactive. Remainder of the small bowel and visualized colon is normal. A periumbilical hernia containing only fat is present. Subcentimeter retroperitoneal and periportal lymph nodes, likely reactive. Abdominal aorta is normal in caliber. Retroaortic left renal vein. Trace ascites. No acute osseous lesion. Multilevel spine degenerative changes. Minimal disc bulges, greatest at L1-L2 with mild effacement of the thecal sac. Procedure Note Yumiko Wilson MD - 08/17/2024 EXAMINATION: RADIOLOGY CONSULTATION ON OUTSIDE IMAGING STUDY STUDY INITIALLY PERFORMED: 08/09/[address] [facility]. TYPE OF STUDY: Multiple MRI/MRCP images of the abdomen with and without intravenous contrast are provided at the time of this interpretation. CONTRAST ROUTE: Contrast was administered via the intravenous route. The protocol was adequate to address the clinical question. The outside final report was not available at the time of this second opinion interpretation. TYPE OF CONSULTATION: Consult on outside imaging study with images submitted through Outside Image Sharing Service DATE OF CONSULTATION: 08/17/2024 7:34 AM HISTORY: Necrotizing pancreatitis. 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 COMPARISON: None available. FINDINGS: Liver: Normal size and morphology. Mild diffuse steatosis. No abnormal iron deposition. - Bile ducts: Left greater than right intrahepatic ductal dilatation. Common bile duct is normal in caliber proximally with mid to distal narrowing, greatest involving the distal most aspect secondary to suspected underlying stricture with superimposed adjacent inflammatory changes and fluid collection mass effect. - Focal liver lesions: None. - Vasculature: Main portal vein is occluded extending to the portosplenic confluence. Findings of cavernous transformation. The superior mesenteric vein is markedly narrowed or occluded with distal reconstitution. The splenic vein is occluded proximally, and patent distally. The intrahepatic portal veins and hepatic veins are patent. Conventional hepatic anatomy. Gallbladder: Distended. Normal wall thickness. Pancreas: Diffuse parenchymal edema and soft tissue swelling. Pancreatic head is hypoenhancing and has intrinsic hypointensity. Multiple tubular T2 hyperintensities are present throughout the pancreas representing dilated ductal side branches. Pancreatic duct is dilated proximally measuring up to 8 mm. Prominent debris and/or stones present throughout the proximal to mid pancreatic duct within the head/neck. Diffuse peripancreatic soft tissue stranding. 4.5 cm complex peripancreatic fluid collection with peripheral hyperenhancement extends to the hepatic hilum, new/increased from prior. No discrete communication with the pancreatic duct. An additional fluid collection is present adjacent to the pancreatic tail measuring up to 2.4 cm with layering debris. Spleen: Normal. Adrenals: Left adrenal adenomatous hyperplasia. Right adrenal gland is normal. Kidneys: No hydronephrosis or solid renal mass. Simple subcentimeter left renal cyst. Other Findings: Left basilar atelectasis. Heart size is normal without pericardial effusion. The distal esophagus is normal. Stomach is normal. Mild soft tissue thickening of the proximal duodenum, likely reactive. Remainder of the small bowel and visualized colon is normal. A periumbilical hernia containing only fat is present. Subcentimeter retroperitoneal and periportal lymph nodes, likely reactive. Abdominal aorta is normal in caliber. Retroaortic left renal vein. Trace ascites. No acute osseous lesion. Multilevel spine degenerative changes. Minimal disc bulges, greatest at L1-L2 with mild effacement of the thecal sac. IMPRESSION: 1. 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 Debris/stones are present throughout the dilated proximal pancreatic duct. 2. Narrowing of the mid to distal common bile duct likely secondary to underlying strictures with interval exaggeration secondary to adjacent fluid collections/inflammatory changes. 3. 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 The intrahepatic portal and hepatic veins are patent on this examination. The findings, conclusions and recommendations within this report do not replace the initial findings, conclusions and recommendations made at the facility where the study was performed based upon the imaging and clinical condition at that time. Comparison with the prior report and clinical history is necessary. The provided images may or may not represent the circle source data set and thus may contain changes that may lower the accuracy of this second-opinion interpretation. Dictated by: Garrison Jiang M.D. The radiology attending physician has personally reviewed this study, and had reviewed and/or edited this written report and agrees with it. Electronically signed by: Yumiko Wilson M.D. Melecio Michelle MD IMG MRI PROCEDURES Fin al Result * XR Outside Reference (08/16/2024 6:01 PM CDT) Impressions [facility] - 08/16/2024 6:01 PM CDT These images are for Reference purposes only and have not been reviewed by [facility]. There will be no report generated by a [facility] Radiologist. Narrative [facility] - 08/16/2024 6:01 PM CDT EXAMINATION: Images For Reference Purposes Only Melecio Michelle MD IMG XR PROCEDURES Maisha l Result Performing Organization Address [facility] de Phone Number [email or web address] * XR Outside Reference (08/16/2024 6:00 PM CDT) Impressions [facility] - 08/16/2024 6:00 PM CDT These images are for Reference purposes only and have not been reviewed by [facility]. There will be no report generated by a [facility] Radiologist. Narrative [facility] - 08/16/2024 6:00 PM CDT EXAMINATION: Images For Reference Purposes Only Melecio Michelle MD IMG XR PROCEDURES Maisha l Result Performing Organization Address [facility] Co de Phone Number [email or web address] * CT Body Outside Consult (08/16/2024 5:59 PM CDT) Anatomical Region Laterality Modality Body N/A Computed Tomogra phy 08/17/2024 7:15 AM CDT Impressions 08/17/2024 7:15 AM CDT This study was initially nominated as a consult on outside images via Outside Image Sharing Service. However, a consult was not performed because a more recent CT of the abdomen and pelvis is in the system and has been dictated. Accordingly, there will be no separate report of this study generated by a [facility] Radiologist. Electronically signed by: Evelin Cho M.D. Narrative 08/17/2024 7:15 AM CDT EXAMINATION: CHANGE CONSULT ON OUTSIDE IMAGES TO REFERENCE IMAGES Procedure Note Evelin Cho MD - 08/17/2024 EXAMINATION: CHANGE CONSULT ON OUTSIDE IMAGES TO REFERENCE IMAGES IMPRESSION: This study was initially nominated as a consult on outside images via Outside Image Sharing Service. However, a consult was not performed because a more recent CT of the abdomen and pelvis is in the system and has been dictated. Accordingly, there will be no separate report of this study generated by a [facility] Radiologist. Electronically signed by: Evelin Cho M.D. Melecio Michelle MD IMG CT PROCEDURES Maisha l Result * Infection Prevention Lanny auris PCR, surveillance Axilla/Groin (08/16/2024 2:02 PM CDT) Lanny auris DNA Not Detected Not Detected [facility] Comment: Interpretive Data Testing performed by [facility] using the [employer] johnny [id number] Lanny auris assay. This assay detects DNA from Lanny auris using Real-Time PCR. This assay is laboratory developed and is not cleared by the [place] Food and Drug Administration. The performance characteristics have been verified by the [facility]. Axilla/Groin 08/16/2024 2:02 PM CDT 08/16/2024 2:36 PM CDT Michael Claudio MD LAB MICROBIOLOGY - GENERAL ORDER DELIO Final Result [facility] Department [place] [address] [facility] * CT Chest Abdomen Pelvis W Contrast (08/16/2024 11:53 AM CDT) Anatomical Region Laterality Modality Body N/A Computed Tomogra phy 08/16/2024 1:01 PM CDT Impressions 08/16/2024 1:01 PM CDT 1. Acute on chronic pancreatitis with a fluid collection along the superior aspect of the head of the pancreas extending into the aileen hepatis which could represent necrotizing pancreatitis/peripancreatic fluid collection. No other loculated fluid collections elsewhere in the abdomen and pelvis. 2. Occlusion of the portal vein, portal confluence, splenic vein with marked narrowing of the superior mesenteric vein immediately distal to the portal confluence, all due to the extensive pancreatitis. 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 3. Distention of the gallbladder which is likely due to combination of satiety and inflammation of the common hepatic and common bile ducts in the setting of the local extensive inflammatory changes in the aileen hepatis. Also reactive gastric antritis and proximal pneumonitis secondary to adjacent pancreatitis. 4. 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 Narrative 08/16/2024 1:01 PM CDT EXAMINATION: Computed tomography of the chest, abdomen and pelvis with intravenous contrast HISTORY: 58-year-old man with history of fevers and necrotizing pancreatitis TECHNIQUE: Transaxial computed tomographic images of the chest, abdomen, and pelvis were obtained with intravenous contrast according to the standard protocol after the uneventful administration of 69 mL Opti-Ray 350 intravenous contrast. COMPARISON: Abdominal MRI of 02/15/[address] of 09/30/2023 FINDINGS: Chest: There is no lymphadenopathy in the chest. No cardiac mass or thrombus. No pleural or pericardial effusion or thickening. Linear subsegmental atelectasis or scarring in bilateral lower lobes noted. Remainder of the lungs are clear. Abdomen/Pelvis: There is extensive fat stranding surrounding the head, neck and proximal body of the pancreas representing known pancreatitis. There is a rim-enhancing fluid collection located immediately superior to the head of the pancreas extending towards the aileen hepatis (series 2 image 176). It measures 36 x 21 mm and is new since CT of 09/30/2023 and the MR of 02/15/2024. This is compatible with necrotizing pancreatitis or peripancreatic fluid collection due to acute on chronic pancreatitis. There is a linear extension medially extending into this collection which may represent a dilated pancreatic side duct communicating with this collection. No other loculated fluid collections within the pancreatic parenchyma or elsewhere in the abdomen and pelvis noted.. There are calcifications in the head of the pancreas located inferior to the aforementioned fluid collection which represents sequela of chronic pancreatitis. No obvious pancreatic head mass is seen. Unchanged dilation of the proximal aspect of the main pancreatic duct within the body of the pancreas similar to CT of 09/30/2023. This could be due to strictures of the pancreatic duct within the head of the pancreas. The upper superior mesenteric vein and main portal are newly occluded due to the surrounding inflammatory changes. The right and left portal veins are not well opacified but seems to be reconstituted by collateral veins. There is mild intrahepatic biliary dilation which is due to narrowing of the common bile duct secondary to the surrounding inflammatory changes of pancreatitis within the aileen hepatis. 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 Collateral veins along the greater curvature the stomach noted. The full extent of the collateral veins cannot be evaluated given the timing of imaging relative to the contrast bolus. The spleen is mildly enlarged has increased in size since the prior study which is likely due to congestion the setting of splenic vein occlusion. The spleen measures 13 cm in maximum diameter (series 2 image 166), previously measuring 9.5 cm on MR of 02/15/2024. There is mild wall thickening of the gastric antrum and diffuse wall thickening of the duodenum which is reactive to the adjacent inflammation. Remainder of the bowel appears normal. Multiple mildly enlarged retroperitoneal and mesenteric lymph nodes in the upper abdomen are also reactive to the local inflammation. The gallbladder is very distended which is likely due to combination of satiety and mild occlusion of the common hepatic and common bile duct secondary to inflammation in the aileen hepatis by the pancreatitis. Stable nodularity of the body of the left adrenal gland. The right renal and normal. The kidneys appear normal. No hydronephrosis or hydroureter. There is a trace amount ascites in the pelvis. The bladder, prostate and rectum appear normal. No inguinal lymphadenopathy. Bones: There are no lytic or blastic osseous lesions. Degenerative changes of the facet joints of the lumbar spine noted. Procedure Note Ever Alcala MD - 08/16/2024 EXAMINATION: Computed tomography of the chest, abdomen and pelvis with intravenous contrast HISTORY: 58-year-old man with history of fevers and necrotizing pancreatitis TECHNIQUE: Transaxial computed tomographic images of the chest, abdomen, and pelvis were obtained with intravenous contrast according to the standard protocol after the uneventful administration of 69 mL Opti-Ray 350 intravenous contrast. COMPARISON: Abdominal MRI of 02/15/[address] of 09/30/2023 FINDINGS: Chest: There is no lymphadenopathy in the chest. No cardiac mass or thrombus. No pleural or pericardial effusion or thickening. Linear subsegmental atelectasis or scarring in bilateral lower lobes noted. Remainder of the lungs are clear. Abdomen/Pelvis: There is extensive fat stranding surrounding the head, neck and proximal body of the pancreas representing known pancreatitis. There is a rim-enhancing fluid collection located immediately superior to the head of the pancreas extending towards the aileen hepatis (series 2 image 176). It measures 36 x 21 mm and is new since CT of 09/30/2023 and the MR of 02/15/2024. This is compatible with necrotizing pancreatitis or peripancreatic fluid collection due to acute on chronic pancreatitis. There is a linear extension medially extending into this collection which may represent a dilated pancreatic side duct communicating with this collection. No other loculated fluid collections within the pancreatic parenchyma or elsewhere in the abdomen and pelvis noted.. There are calcifications in the head of the pancreas located inferior to the aforementioned fluid collection which represents sequela of chronic pancreatitis. No obvious pancreatic head mass is seen. Unchanged dilation of the proximal aspect of the main pancreatic duct within the body of the pancreas similar to CT of 09/30/2023. This could be due to strictures of the pancreatic duct within the head of the pancreas. The upper superior mesenteric vein and main portal are newly occluded due to the surrounding inflammatory changes. The right and left portal veins are not well opacified but seems to be reconstituted by collateral veins. There is mild intrahepatic biliary dilation which is due to narrowing of the common bile duct secondary to the surrounding inflammatory changes of pancreatitis within the aileen hepatis. 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 Collateral veins along the greater curvature the stomach noted. The full extent of the collateral veins cannot be evaluated given the timing of imaging relative to the contrast bolus. The spleen is mildly enlarged has increased in size since the prior study which is likely due to congestion the setting of splenic vein occlusion. The spleen measures 13 cm in maximum diameter (series 2 image 166), previously measuring 9.5 cm on MR of 02/15/2024. There is mild wall thickening of the gastric antrum and diffuse wall thickening of the duodenum which is reactive to the adjacent inflammation. Remainder of the bowel appears normal. Multiple mildly enlarged retroperitoneal and mesenteric lymph nodes in the upper abdomen are also reactive to the local inflammation. The gallbladder is very distended which is likely due to combination of satiety and mild occlusion of the common hepatic and common bile duct secondary to inflammation in the aileen hepatis by the pancreatitis. Stable nodularity of the body of the left adrenal gland. The right renal and normal. The kidneys appear normal. No hydronephrosis or hydroureter. There is a trace amount ascites in the pelvis. The bladder, prostate and rectum appear normal. No inguinal lymphadenopathy. Bones: There are no lytic or blastic osseous lesions. Degenerative changes of the facet joints of the lumbar spine noted. IMPRESSION: 1. Acute on chronic pancreatitis with a fluid collection along the superior aspect of the head of the pancreas extending into the aileen hepatis which could represent necrotizing pancreatitis/peripancreatic fluid collection. No other loculated fluid collections elsewhere in the abdomen and pelvis. 2. Occlusion of the portal vein, portal confluence, splenic vein with marked narrowing of the superior mesenteric vein immediately distal to the portal confluence, all due to the extensive pancreatitis. 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 3. Distention of the gallbladder which is likely due to combination of satiety and inflammation of the common hepatic and common bile ducts in the setting of the local extensive inflammatory changes in the aileen hepatis. Also reactive gastric antritis and proximal pneumonitis secondary to adjacent pancreatitis. 4. 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 Arley Cheung MD IM CT PROCEDURES Final Res ult * C. difficile testing Stool (08/16/2024 10:31 AM CDT) Pathologist [facility] Result Negative Negative Toxin Result Negative Negative [facility] C. diff result Negative, free toxin Negative, free toxin [facility] C. diff interp Negative for toxigenic Clostridioides (Clostridium) difficile. Analysis was performed using a glutamate dehydrogenase antigen detection assay combined with a C. difficile toxin detection assay. [facility] Stool 08/16/2024 10:3 1 AM CDT 08/16/2024 12:41 PM CDT Arley Cheung MD LAB MICROBIOLOGY - GENERAL ORDERABLES Final Result Performing Organization Address [facility] de Phone Number [facility] [address] * Calprotectin, fecal (08/16/2024 10:31 AM CDT) [facility] Calprotectin, fecal <50.0 <50.0 (Normal) mcg/g [facility] Comment: Test Performed by: [facility] [address] [place] [address] Personal Care Attendant: Rubio Michel Ph.D.; CLIA# [id number] Stool 08/16/2024 10:3 1 AM CDT 08/16/2024 1:01 PM CDT Arley Cheung MD LAB BODY FLUIDS AND STOOLS ORDERABLES Final Result Performing Organization Address [facility] de Phone Number [facility] Department [place] [address] [facility] * Norovirus PCR Stool (08/16/2024 10:31 AM CDT) [facility] Norovirus GI RNA Not Detected Not Detected [facility] Norovirus GII RNA Not Detected Not Detected [facility] Comment: Interpretive data: Testing performed at the [facility] using the [employer] Xpert Norovirus Assay. This assay uses nucleic acid amplification to detect RNA from norovirus. This test is cleared by the [place] Food and Drug Administration for unformed stool specimens. The performance characteristics for unformed stool specimens have been verified by the performing laboratory. The performance characteristics of rectal swab specimens have also been validated and verified by the performing laboratory. Positive Xpert Norovirus results do not rule out other causes of infectious diarrhea. Assay interference may be observed in the presence of Barium sulfate and Benzalkonium chloride. Mutations or polymorphisms in primer or probe binding regions may affect detection of new or unknown norovirus variants resulting in a false negative result. Results from the Xpert Norovirus Assay should be interpreted in conjunction with other laboratory and clinical data available to the clinician. Current interpretive data was last revised on 2024. Stool 08/16/2024 10:3 1 AM CDT 08/16/2024 1:38 PM CDT Arley Cheung MD LAB MICROBIOLOGY - GENERAL ORDERABLES Final Result [facility] Department [place] [address] [facility] * Stool culture Stool Rectum (08/16/2024 10:31 AM CDT) Direct Specimen Exam Shiga Toxin Testing: Antigen detection assay for Shiga-toxin NEGATIVE for Shiga Toxin 1 and Shiga Toxin 2. Report Final Report: No growth of enteric bacterial pathogens [facility] Stool (Rectum) 08/16/2024 10 :31 AM CDT 08/16/2024 12:41 PM CDT Narrative [facility] - 08/20/2024 8:30 AM CDT Testing performed by [facility] ([phone]). Routine stool cultures include procedures to detect Salmonella, Shigella, Edwardsiella, Aeromonas, Pleisiomonas, Campylobacter, Yersinia, E. coli O157, and Shiga-like toxins. Vibrio is cultured only upon special request. If Vibrio is suspected, please call the laboratory at [phone]. Interpretive data was last updated October 03, 2016. us Arley Cheung MD LAB MICROBIOLOGY - GENERAL ORDERABLES Final Result Performing Organization Address City/[facility]/ZIP Co de Phone Number [facility] [place] [address] * Infection Prevention VRE Culture Stool (08/16/2024 10:27 AM CDT) Report Final Report: Negative Stool 08/16/2024 10:2 7 AM CDT 08/16/2024 2:55 PM CDT Narrative [facility] - 08/18/2024 6:13 PM CDT Surveillance culture for Infection Prevention purposes only; results indicate colonization, not infection requiring treatment. Testing performed by [facility] ([phone]). Arley Cheung MD LAB MICROBIOLOGY - GENERAL ORDERABLES Final Result Performing Organization Address [facility] Co de Phone Number [facility] Department [place] [address] * Differential, auto (08/16/2024 5:16 AM CDT) Neutrophil abs 4.5 1.5 - 6.5 K/cumm Imm gran abs 0.0 0.0 - 0.1 K/cumm [facility] Lymphocyte abs 1.1 0.8 - 3.3 K/cumm [facility] Monocyte abs 0.7 0.2 - 0.8 K/cumm [facility] Eosinophil abs 0.1 0.0 - 0.5 K/cumm [facility] Basophil abs 0.1 0.0 - 0.1 K/cumm [facility] Neutrophil pct 68.8 % [facility] Comment: Interpretive Data Percent cell count reference ranges are not reported, since discordance with absolute values may lead to misinterpretation of CBC data. Current Interpretive Data was last revised on 2017. Imm gran pct 0.5 % [facility] Comment: Interpretive Data Percent cell count reference ranges are not reported, since discordance with absolute values may lead to misinterpretation of CBC data. Current Interpretive Data was last revised on 2017. Lymphocyte pct 16.7 % [facility] Comment: Interpretive Data Percent cell count reference ranges are not reported, since discordance with absolute values may lead to misinterpretation of CBC data. Current Interpretive Data was last revised on 2017. Monocyte pct 10.5 % [facility] Comment: Interpretive Data Percent cell count reference ranges are not reported, since discordance with absolute values may lead to misinterpretation of CBC data. Current Interpretive Data was last revised on 2017. Eosinophil pct 1.7 % [facility] Comment: Interpretive Data Percent cell count reference ranges are not reported, since discordance with absolute values may lead to misinterpretation of CBC data. Current Interpretive Data was last revised on 2017. Basophil pct 1.8 % [facility] Comment: Interpretive Data Percent cell count reference ranges are not reported, since discordance with absolute values may lead to misinterpretation of CBC data. Current Interpretive Data was last revised on 2017. Blood 08/16/2024 5:16 AM CDT 08/16/2024 5:50 AM CDT us John De Anda MD LAB BLOOD ORDERABLES Final Result [facility] Department [place] [address] * (ABNORMAL) Iron profile w/ IBC (08/16/2024 5:16 AM CDT) Iron 41(L) 50 - 150 mcg/dL TIBC 152(L) 250 - 400 mcg/dL [facility] Transferrin saturation 27 20 - 50 % [facility] Blood 08/16/2024 5:16 AM CDT 08/16/2024 5:50 AM CDT us Arley Cheung MD LAB BLOOD ORDERABLES Final Result [facility] Department [place] [address] * (ABNORMAL) CBC with auto differential (08/16/2024 5:16 AM CDT) Pathologist [facility] WBC 6.6 3.8 - 9.9 K/cumm Hgb 10.1(L) 13.0 - 17.5 g/dL [facility] Hct 31.3(L) 38.9 - 50.3 % [facility] Plt 710(H) 150 - 400 K/cumm [facility] MPV 8.8(L) 9.1 - 12.3 fL [facility] RBC 3.44(L) 4.30 - 5.80 M/cumm [facility] MCV 91.0 81.3 - 96.4 fL [facility] MCH 29.4 27.1 - 33.3 pg [facility] MCHC 32.3 32.3 - 35.7 g/dL [facility] RDW CV 17.6(H) 11.1 - 14.9 % [facility] RDW SD 58.5(H) 35.7 - 48.1 fL [facility] NRBC abs 0.00 0.00 - 0.01 K/cumm [facility] Blood 08/16/2024 5:16 AM CDT 08/16/2024 5:50 AM CDT John De Anda MD LAB BLOOD ORDERABLES Final Result Performing Organization Address [facility] Co de Phone Number [facility] [place] [address] * Phosphorus (08/16/2024 5:16 AM CDT) Pathologist [facility] Phosphorus, pl 3.0 2.3 - 4.5 mg/dL Blood 08/16/2024 5:16 AM CDT 08/16/2024 5:50 AM CDT John De Anda MD LAB BLOOD ORDERABLES Final Result [facility] [place] [address] * Magnesium (08/16/2024 5:16 AM CDT) Pathologist [facility] Magnesium 2.1 1.4 - 2.5 mg/dL Blood 08/16/2024 5:16 AM CDT 08/16/2024 5:50 AM CDT John De Anda MD LAB BLOOD ORDERABLES Final Result Performing Organization Address City/[facility] Co de Phone Number [facility] [place] [address] * Folate (08/16/2024 5:16 AM CDT) [facility] Folic acid >20.0 >=5.0 ng/mL Blood 08/16/2024 5:16 AM CDT 08/16/2024 5:50 AM CDT Arley Cheung MD LAB BLOOD ORDERABLES Final Result Performing Organization Address [facility] Co de Phone Number [facility] [place] [address] * (ABNORMAL) Ferritin (08/16/2024 5:16 AM CDT) [facility] Ferritin 527(H) 30 - 400 ng/mL Blood 08/16/2024 5:16 AM CDT 08/16/2024 5:50 AM CDT Arley Cheung MD LAB BLOOD ORDERABLES Final Result Performing Organization Address City/[facility] [place] [address] * Vitamin B12 (08/16/2024 5:16 AM CDT) [facility] Vitamin B12 810 230 - 1,250 pg/mL Blood 08/16/2024 5:16 AM CDT 08/16/2024 5:50 AM CDT Arley Cheung MD LAB BLOOD ORDERABLES Final Result Performing Organization Address [facility] Co de Phone Number [facility] [place] [address] * (ABNORMAL) Hepatic function panel (08/16/2024 5:16 AM CDT) Pathologist [facility] Bilirubin, total 0.2 0.1 - 1.2 mg/dL Comment:Reviewed Bilirubin, direct <0.2 0.1 - 0.3 mg/dL [facility] Protein, pl 6.7 6.5 - 8.5 g/dL [facility] Albumin 3.4(L) 3.5 - 5.0 g/dL [facility] Alk phos 122 40 - 130 Units/L [facility] ALT 11 7 - 55 Units/L [facility] AST 20 10 - 50 Units/L [facility] Blood 08/16/2024 5:16 AM CDT 08/16/2024 5:50 AM CDT Arley Cheung MD LAB BLOOD ORDERABLES Final Result Performing Organization Address [facility] Phone Number [facility] [place] [address] * ECG 12 lead (08/16/2024 1:04 AM CDT) Ventricular Rate EKG/Min 104 BPM [facility] Atrial Rate 104 BPM [facility] [place]-Interval (MSEC) 156 ms [facility] QRS-Interval (MSEC) 86 ms [facility] QT-Interval (MSEC) 352 ms [facility] QTc 462 ms [facility] P [place] 49 degrees [facility] R [place] -23 degrees [facility] T [place] 31 degrees [facility] Diagnosis Sinus tachycardia Otherwise normal ECG When compared with ECG of 24-SEP-2019 19:36, No significant change was found Confirmed by Dakotah Khan MD ([id number]) on 08/21/2024 2:38:38 PM [facility] 08/16/2024 1:04 AM CDT 08/21/2024 2:38 PM CDT us John De Anda MD ECG ORDERABLES Final Resul t [facility] * Urinalysis reflex to microscopic and culture Urine (08/16/2024 12:17 AM CDT) Color, ur Yellow Yellow Clarity, ur Clear Clear [facility] Specific gravity, ur 1.018 1.003 - 1.030 [facility] pH, urine 7.0 [facility] Comment: Interpretive Data U rine pH is affected by diet, medications, systemic acid-base disturbances, and renal tubular function. pH may affect urinary stone formation. For example, urine pH below 6.0 may help reduce the tendency for calcium phosphate stones and pH greater than 6.0 may reduce the tendency for uric acid stone formation. Source: [facility] Current Interpretive Data was last revised on 2017 Protein, ur ql Negative Negative [facility] Glucose, ur ql Negative Negative [facility] Ketones, ur Negative Negative [facility] Bilirubin, ur Negative Negative [facility] Blood, ur Negative Negative [facility] Urobilinogen, ur <2.0 <2.0 mg/dL [facility] Nitrite, ur Negative Negative [facility] Leukocyte esterase, ur Negative Negative [facility] UA reflex comment Reflex conditions for microscopic UA and culture not met. [facility] Urine 08/16/2024 12:1 7 AM CDT 08/16/2024 1:21 AM CDT us John De Anda MD LAB MICROBIOLOGY - GENERAL ORDERABLES Final Result [facility] Department [place] [address] * Respiratory pathogen panel Nasopharyngeal (08/16/2024 12:17 AM CDT) Pathologist [facility] Influenza A RNA Not Detected Not Detected Influenza B RNA Not Detected Not Detected [facility] RSV RNA Not Detected Not Detected [facility] COVID-19 RNA Not Detected Not Detected [facility] Coronavirus 229E RNA Not Detected Not Detected [facility] Coronavirus HKU1 RNA Not Detected Not Detected [facility] Coronavirus NL63 RNA Not Detected Not Detected [facility] Coronavirus OC43 RNA Not Detected Not Detected [facility] Adenovirus DNA Not Detected Not Detected [facility] Metapneumovirus RNA Not Detected Not Detected [facility] Rhinovirus/Enterov irus RNA Not Detected Not Detected [facility] Parainfluenza 1 RNA Not Detected Not Detected [facility] Parainfluenza 2 RNA Not Detected Not Detected [facility] Parainfluenza 3 RNA Not Detected Not Detected [facility] Parainfluenza 4 RNA Not Detected Not Detected [facility] B. pertussis DNA Not Detected Not Detected [facility] B. parapertussis DNA Not Detected Not Detected [facility] C. pneumoniae DNA Not Detected Not Detected [facility] M. pneumoniae DNA Not Detected Not Detected [facility] Nasopharyngeal 08/16/2024 12 :17 AM CDT 08/16/2024 1:27 AM CDT Narrative [facility] - 08/16/2024 2:22 AM CDT Is the Patient experiencing symptoms consistent with COVID?->No Surveillance testing for transplant patient?->No Interpretive Data The [employer] FilmArray Respiratory Panel (RP2.1) assay is a multiplexed real-time PCR based nucleic acid test capable of simultaneous qualitative detection and identification of multiple respiratory viral and bacterial nucleic acids, including SARS Coronavirus 2 (the causative agent of COVID-19). The following bacteria, viruses and virus subtypes can be identified using the FilmArray RP2.1 assay: Bordetella pertussis, Bordetella parapertussis, Chlamydia pneumoniae, Mycoplasma pneumoniae, Adenovirus, SARS Coronavirus 2, seasonal coronaviruses (Coronavirus HKU1, Coronavirus NL63, Coronavirus 229E, and Coronavirus OC43), Influenza A, Influenza A subtype H1, Influenza A subtype H3, Influenza A subtype 2009 H1, Influenza B, Metapneumovirus, Parainfluenza 1, Parainfluenza 2, Parainfluenza 3, Parainfluenza 4, RSV, Rhinovirus/Enterovirus. Due to the genetic similarity between human Rhinovirus and Enterovirus, the FilmArray RP2.1 assay cannot reliably differentiate them. Coronavirus OC43 may cross-react with some isolates of Coronavirus HKU1. A dual positive result may be due to cross-reactivity or may indicate a co- infection. The detection and identification of specific viral and bacterial nucleic acids from individuals exhibiting signs and symptoms of a respiratory infection aids in the diagnosis of respiratory infection if used in conjunction with other clinical and epidemiological information. The results of this test should not be used as the sole basis for diagnosis, treatment, or other management decisions. Negative results in the setting of a respiratory illness may be due to infection with pathogens that are not detected by this test. Positive results do not rule out infection/co-infection with other organisms. The agent(s) detected by the FilmArray RP2.1 may not be the definite cause of disease. Additional testing (lab, imaging, etc.) may be necessary when evaluating a patient with possible respiratory tract infection. The FilmArray RP2.1 assay has FDA clearance for testing of PROTOCOL OFFICER swabs. The performance of additional specimen types has been assessed by the performing laboratory. The performance characteristics of this assay have been determined by [facility]. Current interpretive data was last revised on 22. Arley Cheung MD LAB MICROBIOLOGY - GENERAL ORDERABLES Final Result Performing Organization Address City/State/ZIP Co ks Phone Number [facility] [place] [address] * eGFR (08/15/2024 11:28 PM CDT) eGFR 87 >=60 mL/min/1. 73 m2 Comment: Interpretive Data [...] interpretive data was last reviewed 2021. Blood 08/15/2024 11:2 8 PM CDT 08/15/2024 11:32 PM CDT us John De Anda MD LAB BLOOD ORDERABLES Final Result [facility] [place] [address] * (ABNORMAL) Differential, auto (08/15/2024 11:28 PM CDT) Neutrophil abs 7.9(H) 1.5 - 6.5 K/cumm Imm gran abs 0.1 0.0 - 0.1 K/cumm [facility] Lymphocyte abs 0.6(L) 0.8 - 3.3 K/cumm [facility] Monocyte abs 0.7 0.2 - 0.8 K/cumm [facility] Eosinophil abs 0.1 0.0 - 0.5 K/cumm [facility] Basophil abs 0.1 0.0 - 0.1 K/cumm [facility] Neutrophil pct 84.3 % [facility] Comment: Interpretive Data Percent cell count reference ranges are not reported, since discordance with absolute values may lead to misinterpretation of CBC data. Current Interpretive Data was last revised on 2017. Imm gran pct 0.7 % [facility] Comment: Interpretive Data Percent cell count reference ranges are not reported, since discordance with absolute values may lead to misinterpretation of CBC data. Current Interpretive Data was last revised on 2017. Lymphocyte pct 6.1 % [facility] Comment: Interpretive Data Percent cell count reference ranges are not reported, since discordance with absolute values may lead to misinterpretation of CBC data. Current Interpretive Data was last revised on 2017. Monocyte pct 7.1 % [facility] Comment: Interpretive Data Percent cell count reference ranges are not reported, since discordance with absolute values may lead to misinterpretation of CBC data. Current Interpretive Data was last revised on 2017. Eosinophil pct 0.7 % [facility] Comment: Interpretive Data Percent cell count reference ranges are not reported, since discordance with absolute values may lead to misinterpretation of CBC data. Current Interpretive Data was last revised on 2017. Basophil pct 1.1 % [facility] Comment: Interpretive Data Percent cell count reference ranges are not reported, since discordance with absolute values may lead to misinterpretation of CBC data. Current Interpretive Data was last revised on 2017. Blood 08/15/2024 11:2 8 PM CDT 08/15/2024 11:31 PM CDT John De Anda MD LAB BLOOD ORDERABLES Final Result Performing Organization Address City/[facility]/ZIP Co de Phone Number [facility] Department [place] [address] * Thyroid Function [place] (08/15/2024 11:28 PM CDT) Pathologist [facility] TSH 0.72 0.30 - 4.20 mcIUnit/mL Blood 08/15/2024 11:2 8 PM CDT 08/15/2024 11:31 PM CDT John De Anda MD LAB BLOOD ORDERABLES Final Result [facility] [place] [address] * HIV 1/2 Antibody plus p24 Antigen Blood (08/15/2024 11:28 PM CDT) Pathologist [facility] HIV 1/2 ab + p24 ag Nonreactive Nonreactive Comment:Nonreactive for HIV- 1 antigen and HIV-1/HIV-2 antibodies. No laboratory evidence of HIV infection. If acute HIV infection is suspected, consider testing for HIV-1 RNA. Current interpretive data was last revised on 22. Blood 08/15/2024 11:2 8 PM CDT 08/15/2024 11:33 PM CDT John De Anda MD LAB MICROBIOLOGY - GENERAL ORDERABLES Final Result [facility] [place] [address] * (ABNORMAL) CBC with auto differential (08/15/2024 11:28 PM CDT) [facility] WBC 9.4 3.8 - 9.9 K/cumm Hgb 9.4(L) 13.0 - 17.5 g/dL [facility] Hct 28.3(L) 38.9 - 50.3 % [facility] Plt 654(H) 150 - 400 K/cumm [facility] MPV 8.8(L) 9.1 - 12.3 fL [facility] RBC 3.11(L) 4.30 - 5.80 M/cumm [facility] MCV 91.0 81.3 - 96.4 fL [facility] MCH 30.2 27.1 - 33.3 pg [facility] MCHC 33.2 32.3 - 35.7 g/dL [facility] RDW CV 17.7(H) 11.1 - 14.9 % [facility] RDW SD 59.1(H) 35.7 - 48.1 fL [facility] NRBC abs 0.00 0.00 - 0.01 K/cumm [facility] Blood 08/15/2024 11:2 8 PM CDT 08/15/2024 11:31 PM CDT us John De Anda MD LAB BLOOD [place] [address] * Hepatitis C antibody Blood (08/15/2024 11:28 PM CDT) Pathologist [facility] Hep C Ab Nonreactive Nonreactive Comment:Antibodies to HCV no t detected. Does NOT exclude the possibility of recent exposure to HCV. Current interpretive data was last revised on 22 Blood 08/15/2024 11:2 8 PM CDT 08/15/2024 11:33 PM CDT us John De Anda MD LAB MICROBIOLOGY - GENERAL ORDERABLES Final Result Performing Organization Address City/[facility] [place] [address] * RPR Blood (08/15/2024 11:28 PM CDT) Pathologist [facility] RPR Nonreactive Nonreactive Blood 08/15/2024 11:2 8 PM CDT 08/15/2024 11:31 PM CDT us John De Anda MD LAB MICROBIOLOGY - GENERAL ORDERABLES Final Result Performing Organization Address City/[facility]/ZIP Co de Phone Number [facility] [place] [address] * Hepatitis B Surface Antigen Blood (08/15/2024 11:28 PM CDT) Pathologist [facility] HepBsAg Nonreactive Nonreactive Blood 08/15/2024 11:2 8 PM CDT 08/15/2024 11:33 PM CDT John De Anda MD LAB MICROBIOLOGY - GENERAL ORDERABLES Final Result Performing Organization Address City/[facility]/ZIP Co de Phone Number [facility] [address] * aPTT (08/15/2024 11:28 PM CDT) aPTT 35 28 - 38 sec Comment: Interpretive Data Heparin therapeutic range: 66.0 - 100.0 seconds. Range based on correlation with therapeutic heparin activity range of 0.3 - 0.7 Units/mL. Current interpretive data was last revised on 2023. Blood 08/15/2024 11:2 8 PM CDT 08/15/2024 11:35 PM CDT John De Anda MD LAB BLOOD ORDERABLES Final Result Performing Organization Address [facility] Co de Phone Number [facility] [place] [place] [address] * Protime-INR (08/15/2024 11:28 PM CDT) PT 12.6 9.7 - 13.0 sec INR 1.16 0.90 - 1.20 [facility] Comment: Interpretive data Oral anticoagulant therapeutic ranges: Venous thromboembolism prophylaxis or treatment: 2.0-3.0 CARDIOLOGY Standard range: 2.0-3.0 High-intensity range: 2.5-3.5 Refer to indication-specific guidelines for appropriate target ranges for prosthetic heart valve replacement. Current interpretive data was last revised on 2019. Blood 08/15/2024 11:2 8 PM CDT 08/15/2024 11:35 PM CDT John De Anda MD LAB BLOOD ORDERABLES Final Result Performing Organization Address City/[facility] Co de Phone Number [facility] [employer] [place] [address] * Type and screen (08/15/2024 11:28 PM CDT) ABO Rh O Positive [place], indirect Negative [facility] Blood 08/15/2024 11:2 8 PM CDT 08/15/2024 11:36 PM CDT Narrative [facility] - 08/16/2024 12:23 AM CDT Has the patient had Daratumumab or Isatuximab in the past 6 months?->Unknown John De Anda MD LAB BLOOD BANK TEST ORDERAB LES Final Result Performing Organization Address [facility] Co de Phone Number [facility] [place] [address] * (ABNORMAL) Phosphorus (08/15/2024 11:28 PM CDT) Phosphorus, pl 2.0(L) 2.3 - 4.5 mg/dL Blood 08/15/2024 11:2 8 PM CDT 08/15/2024 11:32 PM CDT John De Anda MD LAB BLOOD ORDERABLES Final Result Performing Organization Address [facility] [place] [address] * Magnesium (08/15/2024 11:28 PM CDT) Magnesium 1.8 1.4 - 2.5 mg/dL Blood 08/15/2024 11:2 8 PM CDT 08/15/2024 11:32 PM CDT John De Anda MD LAB BLOOD ORDERABLES Final Result Performing Organization Address [facility] [place] [address] * Lipase (08/15/2024 11:28 PM CDT) Lipase 24 10 - 99 Units/L Blood 08/15/2024 11:2 8 PM CDT 08/15/2024 11:31 PM CDT John De Anda MD LAB BLOOD ORDERABLES Final Result Performing Organization Address [facility] Co de Phone Number [facility] [place] [address] * Hemoglobin A1c (08/15/2024 11:28 PM CDT) Hgb A1C 5.2 4.0 - 5.6 % Estimated Average Glucose 103 mg/dL [facility] Comment: The ADA recommends reporting an estimated Average Glucose (eAG) with all Hemoglobin A1c results using the equation derived from a study of 507 normal and diabetic adults. Minority populations were underrepresented and children were not included. (Diabetes Care 2020; 43(S1): S66-S76). The eAG is not equivalent to a fasting glucose. Blood 08/15/2024 11:2 8 PM CDT 08/15/2024 11:32 PM CDT John De Anda MD LAB BLOOD ORDERABLES Final Result Performing Organization Address [facility] de Phone Number [facility] [place] [address] * (ABNORMAL) Lipid panel (08/15/2024 11:28 PM CDT) Cholesterol 90 30 - 199 mg/dL Comment: Interpretive Data Ages < or = 19 years Acceptable: <170 mg/dL Borderline high: 170-199 mg/dL High: >or= 200 mg/dL Ages > or = 20 years Desirable: <200 mg/dL Borderline high: 200-239 mg/dL High: >or= 240 mg/dL Literature References: 1. Expert Panel on Integrated Guidelines for Cardiovascular Health and Risk Reduction in Children and Adolescents. Pediatrics 2011;128:S213 2. NCEP Expert Panel. Circulation 2004;110:227 Current Interpretive Data was last revised on 2018. Triglycerides 93 <=149 mg/dL [facility] Comment: Interpretive Data Ages < or = 9 years Acceptable: <75 mg/dL Borderline high: 75-99 mg/dL High: >or= 100 mg/dL Ages 10 to 20 years Acceptable: <90 mg/dL Borderline high: 90-129 mg/dL High: >or= 130 mg/dL Ages > or = 20 years Desirable: <150 mg/dL Borderline high: 150-199 mg/dL High: 200-499 mg/dL Very high: >or= 499 mg/dL Literature References: 1. Expert Panel on Integrated Guidelines for Cardiovascular Health and Risk Reduction in Children and Adolescents. Pediatrics 2011;128:S213 2. NCEP Expert Panel. Circulation 2004;110:227 Current Interpretive Data was last revised on 2018. HDL 27(L) >=40 mg/dL [facility] Comment: Interpretive Data Ages < or = 19 years Acceptable: >45 mg/dL Borderline low: 40-45 mg/dL Low: <40 mg/dL Ages > or = 20 years Desirable: >or= 60 mg/dL Low: <40 mg/dL Literature References: 1. Expert Panel on Integrated Guidelines for Cardiovascular Health and Risk Reduction in Children and Adolescents. Pediatrics 2011;128:S213 2. NCEP Expert Panel. Circulation 2004;110:227 Current Interpretive Data was last revised on 2018. LDL, calculated 45 <=129 mg/dL [facility] Comment: Interpretive Data Ages < or = 19 years Acceptable: <110 mg/dL Borderline high: 110-129 mg/dL High: >or= 130 mg/dL Ages > or = 20 years Optimal: <100 mg/dL Near optimal: 100-129 mg/dL Borderline high: 130-159 mg/dL High: >160 mg/dL Calculated using the Jani LDL-C estimating equation. This equation was implemented on 2024. Prior to this date LDL-C was estimated using the Friedewald equation. Literature References: 1. Expert Panel on Integrated Guidelines for Cardiovascular Health and Risk Reduction in Children and Adolescents. Pediatrics 2011;128:S213 2. NCEP Expert Panel. Circulation 2004;110:227 3. Jani Galeas al. STANISLAV Cardiol. 2020 September 26;5(5):540-548. doi: 10.1001/[email or web address] Current Interpretive Data was last revised on 2024. Non-HDL Cholesterol 63 mg/dL [facility] Comment: Interpretive Data Ages < or = 19 years Acceptable: <120 mg/dL Borderline high: 120-144 mg/dL High: >145 mg/dL Ages > or = 20 years When triglycerides are >200 mg/dL, Non-HDL cholesterol is a secondary target of therapy with treatment goals that are 30 mg/dL greater than the LDL cholesterol target. Literature References: 1. Expert Panel on Integrated Guidelines for Cardiovascular Health and Risk Reduction in Children and Adolescents. Pediatrics 2011;128:S213 2. NCEP Expert Panel. Circulation 2004;110:227 Current Interpretive Data was last revised on 2018. Chol/HDL ratio 3 [facility] Blood 08/15/2024 11:2 8 PM CDT 08/15/2024 11:32 PM CDT us John De Anda MD LAB BLOOD ORDERABLES Final Result [facility] [place] [address] * (ABNORMAL) Comprehensive metabolic panel (08/15/2024 11:28 PM CDT) Sodium 132(L) 135 - 145 mmol/L Potassium, pl 3.8 3.3 - 4.9 mmol/L [facility] Chloride 99 97 - 110 mmol/L [facility] CO2 24 22 - 32 mmol/L [facility] Anion gap 9 2 - 15 mmol/L [facility] BUN 7 6 - 25 mg/dL [facility] Creatinine 1.01 0.80 - 1.30 mg/dL [facility] [facility] Glucose 122 70 - 199 mg/dL [facility] Comment: Interpretive Data Fasting glucose >/= 126 [...] interpretive data was last revised 2022. Calcium 9.0 8.5 - 10.3 mg/dL [facility] Bilirubin, total <0.2 0.1 - 1.2 mg/dL [facility] Protein, pl 6.7 6.5 - 8.5 g/dL [facility] Albumin 3.2(L) 3.5 - 5.0 g/dL [facility] Alk phos 122 40 - 130 Units/L [facility] ALT 12 7 - 55 Units/L [facility] AST 19 10 - 50 Units/L [facility] Blood 08/15/2024 11:2 8 PM CDT 08/15/2024 11:32 PM CDT us John De Anda MD LAB BLOOD ORDERABLES Final Result [facility] [place] [address] * eGFR (07/23/2024 11:01 AM BURLING AND JOINING SUPERVISOR) eGFR >90 >=60 mL/min/1. 73 m2 [...] reviewed 2021. Blood 07/23/2024 11:0 1 AM BURLING AND JOINING SUPERVISOR 07/23/2024 11:03 AM BURLING AND JOINING SUPERVISOR us Jonny Parada MD LAB BLOOD ORDERABLES Final Res ult [facility] ([place] 1 [facility] Department [place] [address] * Differential, auto (07/23/2024 11:01 AM BURLING AND JOINING SUPERVISOR) Neutrophil abs 1.7 1.5 - 6.5 K/cumm Imm gran abs 0.0 0.0 - 0.1 K/cumm [facility] Lymphocyte abs 1.5 0.8 - 3.3 K/cumm [facility] ([place]) Monocyte abs 0.6 0.2 - 0.8 K/cumm [facility] ([place]) Eosinophil abs 0.0 0.0 - 0.5 K/cumm [facility] ([place]) Basophil abs 0.1 0.0 - 0.1 K/cumm [facility] ([place]) Neutrophil pct 42.8 % [facility] ([place]) Comment: Interpretive Data Percent cell count reference ranges are not reported, since discordance with absolute values may lead to misinterpretation of CBC data. Current Interpretive Data was last revised on 2017. Imm gran pct 0.3 % [facility] ([place]) Comment: Interpretive Data Percent cell count reference ranges are not reported, since discordance with absolute values may lead to misinterpretation of CBC data. Current Interpretive Data was last revised on 2017. Lymphocyte pct 38.1 % [facility] ([place]) Comment: Interpretive Data Percent cell count reference [...] on 2017. Blood 07/23/2024 11:0 1 AM BURLING AND JOINING SUPERVISOR 07/23/2024 11:03 AM BURLING AND JOINING SUPERVISOR Jonny Parada MD LAB BLOOD ORDERABLES Final Res ult [facility] ([place]) 1 [facility] Department [place] [address] * (ABNORMAL) CBC with auto differential (07/23/2024 11:01 AM BURLING AND JOINING SUPERVISOR) WBC 3.9 3.8 - 9.9 K/cumm Hgb [...] [facility] ([place]) Blood 07/23/2024 11:0 1 AM BURLING AND JOINING SUPERVISOR 07/23/2024 11:03 AM BURLING AND JOINING SUPERVISOR Jonny Parada MD LAB BLOOD ORDERABLES Final Res ult Performing Organization Address City/[facility]/ZIP Co de Phone Number [facility] ([place]) 1 [facility] [place] [address] * (ABNORMAL) Ethanol (07/23/2024 11:01 AM BURLING AND JOINING SUPERVISOR) Ethanol 314(C) <=10 mg/dL Comment: Critical Result called by [id number] at 2024-07-23 11:26:12. Result Read Back by Marine Quan ED Interpretive Data Legal limit of intoxication > or = 80 mg/dL Levels > or = 400 mg/dL are potentially TOXIC. Current interpretive data was last revised on 2018. Blood 07/23/2024 11:0 1 AM BURLING AND JOINING SUPERVISOR 07/23/2024 11:03 AM BURLING AND JOINING SUPERVISOR Jonny Parada MD LAB BLOOD ORDERABLES Final Res ult Performing Organization Address [facility]/ZIP Co de Phone Number [facility] ([place]) 1 [facility] [place] [address] * (ABNORMAL) Comprehensive metabolic panel (07/23/2024 11:01 AM BURLING AND JOINING SUPERVISOR) Pathologist [facility] Sodium 144 135 - 145 mmol/L Potassium, pl 3.5 3.3 - 4.9 mmol/L [facility] ([place]) Chloride 105 97 - 110 mmol/L [facility] ([place]) CO2 23 22 - 32 mmol/L [facility] ([place]) Anion gap 16(H) 2 - 15 mmol/L [facility] ([place]) BUN 5(L) 6 - 25 mg/dL [facility] ([place]) Creatinine 0.64(L) 0.80 - 1.30 mg/dL [facility] ([place]) Glucose 133 70 - 199 mg/dL [facility] ([place]) Comment: Interpretive Data Fasting glucose >/= [...] [facility] ([place]) Blood 07/23/2024 11:0 1 AM BURLING AND JOINING SUPERVISOR 07/23/2024 11:03 AM BURLING AND JOINING SUPERVISOR us Jonny Parada MD LAB BLOOD ORDERABLES Final Res ult [facility] ([place]) 1 [facility] Department [place] [address] from Last 3 Months Insurance [facility]IC[facility] Address: [facility] [address] [place] [address] CIGNA CIGNA MEDICARE ADVANTAGE [facility] Address: [address] [address] [place] [address] Advance Directives For more information, please contact: [phone] * Full Code (Latest Code Status on File) Date Activated Date Inactivated Comments 08/15/2024 9:08 PM 08/21/2024 8:18 PM * Full Code Date Activated Date Inactivated Comments 01/10/2024 8:34 AM 01/10/2024 4:10 PM * Full Code Date Activated Date Inactivated Comments 09/20/2023 8:13 PM 10/01/2023 6:14 PM * Full Code Date Activated Date Inactivated Comments 06/07/2023 4:45 AM 06/13/2023 8:44 PM * Full Code Date Activated Date Inactivated Comments 06/04/2023 11:25 AM 06/05/2023 8:22 PM Care Teams Drop Hammer Setter Up Relationship Specialty Start Date End Date Ronnell Escobar, NATHAN [address] [place] [address] PCP - General Nurse Practitioner 08/16/24
--- OUTSIDE RECORDS SUMMARY | 2024-09-09 00:28 | XMS_ITS | Encounter Summary ---
Author Organization [facility] Address [address] [place] [address] Phone Care Team Providers Care Accounting Office Manager Name Role Phone Unknown, Notinfile Primary Care Provider Unavail able Lamberto Barker MD Primary Care Provider [phone] Don Walton Primary Care Provider Ronnell Escobar NP Primary Care Provider [phone] Savanah Galvez RN Unavailable [phone] Encounter Details Date Type Department Care Team [...] on file Legal Sex Male 1:58 AM SEMI DRIVER Gender Identity Not on file Sexual Orientation [...] Last Indicated Resolved Time COVID: Suspected 06/06/2023 06/06/202306/0606/06/2023 9:39 PM SEMI DRIVER C. difficile suspected 08/16/2024 08/16/202408/16 2:48 PM CDT Norovirus suspected 08/16/2024 08/16/2024 08/17/19 3:27 PM CDT [facility] Surveillance Comment:This flag is used to identify patient who are in house who are being monitored by Infection Prevention. If the patient is discharged and a swab has not been collected, if patient returns to hospital within 7 days a surveillance swab is to be collected (Reach out to IP for order) Patient does NOT need isolation, patient can travel off the floor. C auris 5400 VIM 5400 08/16/2024 08/16/2024 08/22/2024 9:21 AM C DT C. difficile suspected 08/17/2024 08/17/202408/17 11:31 AM CDT documented as of this encounter Care Teams Accounting Office Manager Relationship Specialty Start Date End Date Unknown, Notinfile PCP - General 10/01/19 04/26/20 Lamberto Barker MD [address] [place] [address] PCP - General Internal Medicine 04/27/20 12/27/21 Don Walton PA [address] [place] [address] PCP - General Physician [employer] 12/28/21 08/15/24 Ronnell Escobar NP [address] [place] [address] PCP - General Nurse Practitioner 08/16/24 Savanah Galvez, RN [address] [facility] [address] [place] [address] [employer]OP Outpatient Construction Foreman 08/22/24 08/25/24 documented as of this encounter
--- OUTSIDE RECORDS SUMMARY | 2024-09-09 00:28 | XMS_ITS | Clinical Summary ---
Author Organization [facility] Address [address] [place] [id number] Care Team Providers Care Groundskeeping Maintenance Name Role Phone Ronnell Escobar NP Primary Care Provider [phone] Allergies Active Allergy Reactions Criticality Noted Date [...] tablet by mouth daily. 30 tablet 12/28/19 Active tiZANidine 4 MG tablet Take 1 tablet (4 mg total) by mouth every 8 (eight) hours as needed (muscle splasms). 02/17/20 Active pantoprazole EC 40 MG tablet Take [...] tablet (10 mg total) by mouth daily. 08/17/20 22 Active gabapentin (NEURONTIN) 300 MG capsule [...] Nostril route as needed. SHAKE LIQUID 05/21/20 22 Active tadalafil (CIALIS) 20 MG tablet Take 1 tablet (20 mg total) by mouth daily as needed for Erectile Dysfunction. 10/21/19 23 Active fenofibrate 160 MG tablet Take 1 tablet (160 mg total) by mouth daily. 10/18/19 23 Active CREON 17340-51161 units CAPSULE ENTERIC COATED PARTICLES Take 1 capsule (12,000 units of lipase total) by mouth 3 (three) times daily with meals. 07/13/19 24 Active sildenafil (VIAGRA) 100 MG tablet TAKE 1 TABLET BY MOUTH ONCE DAILY 30 MINUTES-4 HOURS PRIOR TO SEXUAL ACTIVITY 10/25/19 24 Active losartan (COZAAR) 25 MG tablet TAKE 1 TABLET(25 MG) BY MOUTH DAILY 90 tablet 06/21/19 25 Active naloxone (NARCAN) 4 MG/0.1ML nasal spray 1 spray by Nasal route as needed for Opioid reversal. may repeat every 2 to 3 minutes in alternating nostrils until medical assistance becomes available 1 each 08/30/19 25 026 Active HYDROcodone-acetam inophen (NORCO) 5-325 MG tabletIndications: Acute Pain < 3 Day Supply Take 1 tablet by mouth every 6 (six) hours as needed. Indications: Acute Pain < 3 Day Supply 10 tablet 08/30/19 25 025 chlordiazePOXIDE (LIBRIUM) 25 MG capsuleIndications :Alcohol withdrawal (CMS/HCC HHS/HCC) Take 1 capsule (25 mg total) by mouth 3 (three) times daily as needed (alcohol withdrawal). 5 capsule 08/30/19 025 Active Problems Problem Noted Date Diagnosed Date Chest pain 06/04/2023 Overview (06/16/2023): Last Assessment & Plan: Likely from pancreatitis. Also tender to palpation initially so may be a musculoskeletal component from dry heaving. Trops negative. EKG no ischemic changes. He reports hx of ND in the past, unclear circumstances. He had an exercise stress test in spring at an outside facility that he says was normal. Cont ASA. Pancreatic pseudocyst ([facility]) 07/26/2021 Severe sepsis ([facility]) 07/08/2021 Overview (11/04/2022): Last Assessment & Plan: [...] Alcohol dependence with unsp ecified alcohol-induced disorder ([facility]) 06/25/2021 Overview (11/04/2022): Last Assessment & Plan: [...] has AA resources for discharge. Acute pancreatitis ([facility]) 06/20/2021 Pancreatitis (HHS/HCC) 05/08/2019 Hypertension Tobacco abuse Resolved Problems Problem Noted Date Diagnosed Date Resolved Date Acute pancreatitis (HHS/HCC) 12/28/2020 06/01/2021 Hypokalemia 06/20/2020 12/25/2020 Acute pancreatitis (HHS/HCC) 06/19/2020 12/25/2020 Necrotizing pancreatitis (HHS/HCC) 10/21/2019 12/25/2020 Other constipation 10/21/2019 Encounters Date Type Department Care Team Description 08/29/2024 8:03 AM CDT - 08/29/2024 11:30 AM CDT Emergency [facility] [place] [address] Steven Cash MD Chest Pain; Neurologic Problem Discharge Disposition: Home or Self Care (Routine Discharge) 08/29/2024 Travel 07/20/2024 2:13 PM [employer] - 07/20/2024 4:18 PM [facility] Emergency [facility] [place] [address] Lizette Shah MD Alcohol Intoxication Discharge Disposition: Left Against Medical Advice 07/20/2024 Travel 07/19/2024 11:53 AM [employer] - 07/19/2024 1:27 PM [facility] Emergency [facility] [place] [address] Lizette Shah MD Alcohol Intoxication Discharge Disposition: Left Against Medical Advice 07/19/2024 Travel 07/06/2024 2:36 AM [employer] - 07/06/2024 6:29 AM [facility] Emergency [facility] [place] [address] Daniel Hitchcock MD Withdrawal- Alcohol Discharge Disposition: Home or Self Care (Routine Discharge) 07/06/2024 Travel from Last 3 Months Immunizations Immunization Administration Dates Next Due Flucelvax 6 Months+ (Prefilled Syringe) 03/03/20 19 Fluzone 6 Months+ Quad (0.5 mL Prefilled [...] week 12/25/2020 How often do you attend [facility] or roman catholic services? Never 12/25/2020 Do you belong to any clubs o r organizations such as lutheran groups, unions, fraternal or athletic groups, or [...] move on to questions 3-9 2 12/25/2020 [facility] - [...] slept in a fpc (including now)? No 12/25/2020 Sex and Gender Information Value Date Recorded Sex Assigned at Male 12/25/2020 2:35 AM CDT Legal Sex Male 7:50 PM CDT Gender Identity Male 12/25/2020 2:35 AM CDT Sexual Orientation Straight 12/25/2020 2: 35 AM CDT Last Filed Vital Signs Vital Sign Reading Time Taken Comments Blood Pressure 148/99 08/29/2024 11:00 AM CDT Pulse 81 08/29/2024 11:00 AM CDT Temperature 36.6 C (97.8 F) 08/29/2024 8:23 AM CDT Respiratory Rate 21 08/29/2024 11:00 AM CDT Oxygen Saturation 98% 08/29/2024 11:00 AM CDT Inhaled Oxygen Concentration - - Weight 79.4 kg (175 lb) 08/29/2024 8:45 AM CDT Height 182.9 cm (6') 08/29/2024 8:45 AM CDT Body Mass Index 23.73 08/29/2024 8:45 AM CDT Plan of Treatment Health Maintenance Due Date Last Done Comments Colorectal Cancer Screening Colonoscopy (10 Years) 1967 Annual Physical 10/16/1970 Pneumococcal Vaccine: Pediatrics (0 to 5 Years) and At-Risk Patients (6 to 49 Years) (1 of 2 - PCV) 10/16/1973 Hepatitis B Vaccines (1 of 3 - 19+ 3-dose series) 10/16/1986 DTaP, Tdap and Td Vaccines ( 1 - Tdap) 07/02/1998 07/01/1998 Zoster Vaccines (1 of 2) 10/16/2017 COVID-19 Vaccine (3 - 2023-2 5 season) 2024 08/18/2020, 07/28/2020 PHQ-2 (Physician [place]) 05/29/2024 Colorectal Cancer Screening FIT/FOBT (1 Year) Discontinued 09/15/2019 Hepatitis C Completed 08/15/2024 Meningococcal B Vaccine Aged Out No l [...] Reduce alcohol intake 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 Procedure Name Priority Date/Time Associated Diagnosis Comments CT ABD+PEL W CON STAT 08/29/2024 8:[address] HEAD WO CON STAT 08/29/2024 8:45 AM CDT XR CHEST PORTABLE STAT 08/29/2024 8:3 8 AM CDT MAGNESIUM STAT 08/29/2024 8:14 AM CDT LIPASE STAT 08/29/2024 8:14 AM CDT TROPONIN, QUANT STAT 08/29/2024 8:14 AM CDT COMPREHENSIVE METABOLIC PANEL STAT 08/29/2024 8:14 AM CDT PARTIAL THROMBOPLASTIN TIME,PTT STAT 08/29/2024 8:14 AM CDT PROTHROMBIN TIME, VENOUS STAT 08/29/2024 8:14 AM CDT CBC W/DIFF AUTOMATED STAT 08/29/2024 8:14 AM CDT POCT GLUCOSE - CHACON DOCKED DEVICE Routine 08/29/2024 8:05 AM CDT ECG 12-LEAD Routine 08/29/2024 8:03 AM CDT LIPASE STAT 07/20/2024 2:44 PM [employer] MAGNESIUM STAT 07/20/2024 2:44 PM [employer] COMPREHENSIVE METABOLIC PANEL STAT 07/20/2024 2:44 PM [employer] CBC W/DIFF AUTOMATED STAT 07/20/2024 2:44 PM [employer] LIPASE STAT 07/19/2024 12:38 PM [employer] MAGNESIUM STAT 07/19/2024 12:38 PM [employer] COMPREHENSIVE METABOLIC PANEL STAT 07/19/2024 12:38 PM [employer] CBC W/DIFF AUTOMATED STAT 07/19/2024 12:38 PM [employer] CT HEAD WO CON STAT 07/06/2024 3:15 AM [employer] LIPASE STAT 07/06/2024 3:00 AM [employer] ETHANOL STAT 07/06/2024 3:00 AM [employer] MAGNESIUM STAT 07/06/2024 3:00 AM [employer] TROPONIN, QUANT STAT 07/06/2024 3:00 AM [employer] COMPREHENSIVE METABOLIC PANEL STAT 07/06/2024 3:00 AM [employer] CBC W/DIFF AUTOMATED STAT 07/06/2024 3:00 AM [employer] OCCULT BLOOD, FECES Routine 09/15/2019 4 :49 PM CDT from Last 3 Months or Most Recently Relevant to Health Maintenance Results * CT HEAD WO CON (08/29/2024 8:45 AM CDT) Only the most recent of2 resultswithin the time period is included. Anatomical Region Laterality Modality Head Computed Tomogra phy 08/29/2024 9:22 AM CDT Impressions 08/29/2024 9:23 AM CDT IMPRESSION: No CT evidence of an acute intracranial abnormality. Ordered By: STEVEN CASH Interpreted By: Maycol Kurtz MD, 08/29/2024 9:22 AM Narrative 08/29/2024 9:23 AM CDT [address] [address] EXAMINATION: CT of the head without contrast EXAM DATE/TIME: 08/29/2024 8:37 AM REASON FOR EXAM: Numbness left side COMPARISON: CT head 07/06/2024 TECHNIQUE: Noncontrast CT examination of the head was performed with axial images obtained. Additional coronal and sagittal reformatted images were generated at a separate workstation. A dose lowering technique was used for this procedure, which may include, but is not limited to, dose reduction technique, automated exposure control, iterative reconstruction, ALARA (As Low As Reasonably Achievable), or Image Gently techniques. FINDINGS: There is no acute intracranial hemorrhage. There is no extra-axial fluid collection. Preserved virk-white matter differentiation. The ventricles are normal in size. The basal cisterns appear normal. Orbital contents appear normal. Paranasal sinuses and mastoid air cells are well aerated. There is no acute fracture nor destructive process of the visualized osseous structures. Procedure Note Maycol Kurtz MD - 08/29/[address] [address] EXAMINATION: CT of the head without contrast EXAM DATE/TIME: 08/29/2024 8:37 AM REASON FOR EXAM: Numbness left side COMPARISON: CT head 07/06/2024 TECHNIQUE: Noncontrast CT examination of the head was performed with axialimages obtained. Additional coronal and sagittal reformatted images weregenerated at a separate workstation. A dose lowering technique was usedfor this procedure, which may include, but is not limited to, dosereduction technique, automated exposure control, iterative reconstruction,ALARA (As Low As Reasonably Achievable), or Image Gently techniques. FINDINGS: There is no acute intracranial hemorrhage. There is noextra-axial fluid collection. Preserved virk-white matter differentiation.The ventricles are normal in size. The basal cisterns appear normal.Orbital contents appear normal. Paranasal sinuses and mastoid air cellsare well aerated. There is no acute fracture nor destructive process ofthe visualized osseous structures. IMPRESSION: No CT evidence of an acute intracranial abnormality. Ordered By: STEVEN CASH Interpreted By: Maycol Kurtz MD, 08/29/2024 9:22 AM us Steven Cash MD CT Final Result * CT ABD+PEL W IV CON ONLY (08/29/2024 8:45 AM CDT) Anatomical Region Laterality Modality Abdomen Computed Tomogra phy 08/29/2024 9:22 AM CDT Impressions 08/29/2024 9:39 AM CDT Impression: 1. Redemonstrated findings which can be seen with acute/active pancreatitis with a background of chronic bronchitis, as discussed above. No peripancreatic pseudocyst abscess or other drainable collection. 2. Interval removal of common bile duct stents. No common bile duct dilatation on the current study; mild intrahepatic biliary tree dilatation present less prominent compared to 09/19/2023. 3. Pancreatic neck ductal dilatation up to 7 mm decreased from 9 mm in the prior study; pancreatic body duct is normal in diameter. 4. 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 5. Small sliding hiatal hernia and probable reactive duodenitis. 6. Diffuse gastric wall thickening, nonspecific may represent gastritis underdistention. 7. Other nonemergent, incidental, stable and potential chronic findings as discussed in the report body above. Ordered By: STEVEN CASH Interpreted By: Ray Bear MD, 08/29/2024 9:22 AM Narrative 08/29/2024 9:39 AM CDT [address] [address] Examination: CT abdomen and pelvis with IV contrast. Exam Date/Time: 08/29/2024 8:37 AM Indication: 58 male. Left-sided chest pain, left-sided numbness down left leg. History of alcohol abuse and chronic pancreatitis history, acute kidney injury and other issues. Comparison: CT abdomen pelvis 09/19/2023 Technique: Computed tomography of the abdomen and pelvis performed following uneventful intravenous administration of 100 mL Isovue-370 contrast. A dose lowering technique was used for this procedure, which may include, but is not limited to, dose reduction technique, automated exposure control, the use of iterative reconstruction, and ALARA (As Low As Reasonably Achievable) / Image Gently techniques. CT Findings: LOWER CHEST Normal cardiac size. No pericardial or pleural effusion. Mild streaky subsegmental atelectasis at the lung bases. UPPER ABDOMEN Liver and bile ducts: Mild hepatomegaly, with left hepatic lobe hypertrophy, stable. Nonspecific. Normal size and contour. Minimal focal fat infiltration in the left lobe adjacent to the intersegmental fissure. Hepatic veins are patent. Main right and left portal veins are patent. There is new severe diffuse narrowing of the main portal vein and confluence including the proximal SMV and splenic vein without complete occlusion Increased periportal and additional collateral varices throughout the upper abdomen Mild intrahepatic biliary tree dilatation decreased the prior study. No common bile duct dilatation. Gallbladder: No calcific cholelithiasis or findings of acute cholecystitis. Extensive the venous collateral vessels a present surrounding the gallbladder. Pancreas: Extensive peripancreatic stranding redemonstrated in the region of the pancreatic head and body which can be seen with active pancreatitis The pancreatic distal body and tail are truncated, a chronic finding. Mild relative chronic hypoenhancement of the pancreatic head and neck. Sequela of chronic pancreatitis or pancreatic head macrocalcifications. There is pancreatic head and neck dilatation up to 7 mm decreased from 9 mm in the prior study. Interval removal of a to common bile duct stent since the prior study.. Normal diameter of the pancreatic duct in the region of the pancreatic body. Spleen: No splenomegaly or focal lesion. RETROPERITONEUM Adrenals: 1.9 cm left adrenal nodule, indeterminate on this single phase study. Right adrenal is normal. Kidneys: Bilateral normal size, contour and enhancement. No suspicious focal finding, collecting system obstruction or perinephric stranding. Lymph nodes: No lymphadenopathy in the abdomen or pelvis. BOWEL AND PERITONEUM Bowel: Small sliding hiatal hernia. Mild diffuse gastric wall thickening, which may represent gastritis or be on the basis of underdistention. There is a diffuse duodenal wall thickening which may represent reactive duodenitis in the setting of pancreatitis. Remainder of the bowel is normal in caliber and thickness.. Free air or fluid: Peripancreatic inflammatory fluid as discussed above. No stenosis, abscess or other localized drainable collection. A minimal amount of dependent pelvic ascites. No free air. VASCULATURE Abdominal aorta is unremarkable. No atherosclerosis or aneurysm Mesenteric and visceral branches are patent. New diffuse severe narrowing of the main portal vein, SMV splenic vein confluence and proximal splenic vein and SMV without total occlusion of a new increased extensive the collateral variceal formation in the upper abdomen PELVIS Prostate and seminal vesicles are normal. Unremarkable thin-walled urinary bladder. BONES/SOFT TISSUES Chronic changes of low abdominal wall hernia, possible bilateral inguinal hernia repair. No recurrent hernia. T11-T12 probably developmental anterior wedging. Multilevel disc and endplate degenerative change. No concerning focal lytic or blastic Procedure Note Ray Bear MD - 08/29/2024 [facility] [address] [place], [place] [address] Examination: CT abdomen and pelvis with IV contrast. Exam Date/Time: 08/29/2024 8:37 AM Indication: 58 male. Left-sided chest pain, left-sided numbness down leftleg. History of alcohol abuse and chronic pancreatitis history, acutekidney injury and other issues. Comparison: CT abdomen pelvis 09/19/2023 Technique: Computed tomography of the abdomen and pelvis performedfollowing uneventful intravenous administration of 100 mL Isovue-370contrast. A dose lowering technique was used for this procedure, which mayinclude, but is not limited to, dose reduction technique, automatedexposure control, the use of iterative reconstruction, and ALARA (As LowAs Reasonably Achievable) / Image Gently techniques. CT Findings: LOWER CHEST Normal cardiac size. No pericardial or pleural effusion. Mild streakysubsegmental atelectasis at the lung bases. UPPER ABDOMEN Liver and bile ducts: Mild hepatomegaly, with left hepatic lobehypertrophy, stable. Nonspecific. Normal size and contour. Minimal focalfat infiltration in the left lobe adjacent to the intersegmentalfissure. Hepatic veins are patent. Main right and left portal veins are patent.There is new severe diffuse narrowing of the main portal vein andconfluence including the proximal SMV and splenic vein without completeocclusion Increased periportal and additional collateral varices throughout theupper abdomen Mild intrahepatic biliary tree dilatation decreased the prior study. Nocommon bile duct dilatation. Gallbladder: No calcific cholelithiasis or findings of acutecholecystitis. Extensive the venous collateral vessels a presentsurrounding the gallbladder. Pancreas: Extensive peripancreatic stranding redemonstrated in the region of thepancreatic head and body which can be seen with active pancreatitis Thepancreatic distal body and tail are truncated, a chronic finding. Mildrelative chronic hypoenhancement of the pancreatic head and neck. Sequelaof chronic pancreatitis or pancreatic head macrocalcifications. There ispancreatic head and neck dilatation up to 7 mm decreased from 9 mm in theprior study. Interval removal of a to common bile duct stent since theprior study.. Normal diameter of the pancreatic duct in the region of the pancreaticbody. Spleen: No splenomegaly or focal lesion. RETROPERITONEUM Adrenals: 1.9 cm left adrenal nodule, indeterminate on this single phasestudy. Right adrenal is normal. Kidneys: Bilateral normal size, contour and enhancement. No suspiciousfocal finding, collecting system obstruction or perinephric stranding. Lymph nodes: No lymphadenopathy in the abdomen or pelvis. BOWEL AND PERITONEUM Bowel: Small sliding hiatal hernia. Mild diffuse gastric wall thickening,which may represent gastritis or be on the basis of underdistention. Thereis a diffuse duodenal wall thickening which may represent reactiveduodenitis in the setting of pancreatitis. Remainder of the bowel isnormal in caliber and thickness.. Free air or fluid: Peripancreatic inflammatory fluid as discussed above.No stenosis, abscess or other localized drainable collection. A minimalamount of dependent pelvic ascites. No free air. VASCULATURE Abdominal aorta is unremarkable. No atherosclerosis or aneurysm Mesentericand visceral branches are patent. New diffuse severe narrowing of the mainportal vein, SMV splenic vein confluence and proximal splenic vein and SMVwithout total occlusion of a new increased extensive the collateralvariceal formation in the upper abdomen PELVIS Prostate and seminal vesicles are normal. Unremarkable thin-walled urinarybladder. BONES/SOFT TISSUES Chronic changes of low abdominal wall hernia, possible bilateral inguinalhernia repair. No recurrent hernia. T11-T12 probably developmental anterior wedging. Multilevel disc andendplate degenerative change. No concerning focal lytic or blastic Impression: 1. Redemonstrated findings which can be seen with acute/activepancreatitis with a background of chronic bronchitis, as discussed above.No peripancreatic pseudocyst abscess or other drainable collection. 2. Interval removal of common bile duct stents. No common bile ductdilatation on the current study; mild intrahepatic biliary tree dilatationpresent less prominent compared to 09/19/2023. 3. Pancreatic neck ductal dilatation up to 7 mm decreased from 9 mm in theprior study; pancreatic body duct is normal in diameter. 4. Main portal vein, splenic SMV confluence and proximal SMV and splenicvein severe chronic narrowing without total occlusion, new from the priorstudy, with probably related to development of extensive bilateral varicesthroughout the upper abdomen. 5. Small sliding hiatal hernia and probable reactive duodenitis. 6. Diffuse gastric wall thickening, nonspecific may represent gastritisunderdistention. 7. Other nonemergent, incidental, stable and potential chronic findings asdiscussed in the report body above. Ordered By: STEVEN CASH Interpreted By: Ray Bear MD, 08/29/2024 9:22 AM Steven Cash MD CT Final Result * XR CHEST PORTABLE (08/29/2024 8:38 AM CDT) Anatomical Region Laterality Modality Chest Radiographic Lynette ging 08/29/2024 8:42 AM CDT Impressions 08/29/2024 8:43 AM CDT Impression: Left lower lobe mildly platelike subsegmental atelectasis; no other convincing acute, active cardiopulmonary radiographic finding. Ordered By: STEVEN CASH Interpreted By: Ray Bear MD, 08/29/2024 8:42 AM Narrative 08/29/2024 8:43 AM CDT [place] [address] Examination: Chest x-ray 1 view Exam date/time: 08/29/2024 8:20 AM Reason For Exam: 58 male. Left-sided chest pain Comparison: Chest x-ray 06/19/2021 Technique: Portable AP upright view of the chest Findings: Normal cardiac size. Normally positioned trachea. Hilar and mediastinal contours are within normal limits. Pulmonary vasculature is normal. Left lower lobe, horizontal linear opacity may represent platelike subsegmental atelectasis. The lung and pleural spaces are otherwise radiographically clear; no consolidation, effusion or pneumothorax. Unremarkable upper abdomen. Procedure Note Ray Bear MD - 08/29/[address] [address] Examination: Chest x-ray 1 view Exam date/time: 08/29/2024 8:20 AM Reason For Exam: 58 male. Left-sided chest pain Comparison: Chest x-ray 06/19/2021 Technique: Portable AP upright view of the chest Findings: Normal cardiac size. Normally positioned trachea. Hilar andmediastinal contours are within normal limits. Pulmonary vasculature isnormal. Left lower lobe, horizontal linear opacity may represent platelikesubsegmental atelectasis. The lung and pleural spaces are otherwiseradiographically clear; no consolidation, effusion or pneumothorax. Unremarkable upper abdomen. Impression: Left lower lobe mildly platelike subsegmental atelectasis; no otherconvincing acute, active cardiopulmonary radiographic finding. Ordered By: STEVEN CASH Interpreted By: Ray Bear MD, 08/29/2024 8:42 AM Steven Cash MD GENERAL IMAGING Final Result * PARTIAL THROMBOPLASTIN TIME,PTT (08/29/2024 8:14 AM CDT) PTT 31.6 25.1 - 36.5 SEC 08/29/2024 8:47 AM CDT [facility] 08/29/2024 8:14 AM CDT Steven Cash MD LABORATORY Final Result [facility] [address] [place] [address], [place] [phone] * (ABNORMAL) PROTIME/INR, VENOUS (08/29/2024 8:14 AM CDT) PROTIME 9.8(L) 10.2 - 12.9 SEC 08/29/2024 8:47 AM CDT [facility] INR 0.9 08/29/2024 8:47 AM CDT [facility] Comment: Recommended INR Therapeutic Goals: 2.0-3.0 Routine Therapy 2.5-3.5 Mechanical Prosthetic Valves (High Risk) 08/29/2024 8:14 AM CDT Steven Cash MD LABORATORY Final Result [facility] [address] [place] [address], [place] [phone] * (ABNORMAL) COMPREHENSIVE METABOLIC PANEL (08/29/2024 8:14 AM CDT) Only the most recent of4 resultswithin the time period is included. [facility] GLUCOSE 107(H) 70 - 99 MG/DL 08/29/2024 8:51 AM CDT [facility] BUN 11 7 - 18 MG/DL 08/29/2024 8:51 AM CDT [facility] CREATININE S/P/B 0.79 0.7 - 1.3 MG/DL 08/29/2024 8:51 AM CDT [facility] SODIUM S/P/B 140 136 - 145 MMOL/L 08/29/2024 8:51 AM CDT [facility] POTASSIUM S/P/B 3.9 3.5 - 5.1 MMOL/L 08/29/2024 8:51 AM CDT [facility] CHLORIDE S/P/B 110 97 - 115 MMOL/L 08/29/2024 8:51 AM CDT [facility] CO2 24.2 21 - 32 MMOL/L 08/29/2024 8:51 AM CDT [facility] CALCIUM S/P/B 9.4 8.5 - 10.1 MG/DL 08/29/2024 8:51 AM CDT [facility] BILIRUBIN TOTAL S/P/B 0.4 0.2 - 1.2 MG/DL 08/29/2024 8:51 AM CDT [facility] Comment: THIS ASSAY IS NOT RECOMMENDED FOR PATIENTS UNDERGOING TREATMENT WITH ELTROMBOPAG DUE TO THE POTENTIAL FOR FALSELY ELEVATED RESULTS. TOTAL PROTEIN S/P/B 7.4 6.4 - 8.2 G/DL 08/29/2024 8:51 AM CDT [facility] ALBUMIN S/P/B 3.5 3.4 - 5.0 G/DL 08/29/2024 8:51 AM CDT [facility] AST 41(H) 15 - 37 U/L 08/29/2024 8:51 AM CDT [facility] ALT 29 16 - 60 U/L 08/29/2024 8:51 AM CDT [facility] ALKALINE PHOSPHATASE S/P/B 100 50 - 136 U/L 08/29/2024 8:51 AM CDT [facility] ANION GAP 5.8 2 - 10 MMOL/L 08/29/2024 8:51 AM CDT [facility] BUN CREATININE RATIO 13.9 6 - 26 08/29/2024 8:51 AM T [facility] A/G RATIO 0.9(L) 1.0 - 2.0 RATIO 08/29/2024 8:51 AM T [facility] GFR ESTIMATE >90 >90 ML/MIN/1.7 3 M2 08/29/2024 8:51 AM T [facility] Comment: NOTE: eGFR is not calculated for patients <18 years of age or gender unknown. This is an estimated GFR calculation using the new CKD EPI creatinine equation without race and so does not require a correction factor for race. This estimated GFR should not be used for calculating drug doses. 08/29/2024 8:14 AM CDT Steven Cash MD LABORATORY Final Result [facility] [address] [place] [address], [place] [phone] * (ABNORMAL) CBC W/DIFF AUTOMATED (08/29/2024 8:14 AM CDT) Only the most recent of4 resultswithin the time period is included. [facility] Signature WBC 7.82 4.5 - 11.0 x10'3/uL 08/29/2024 8:25 AM CDT [facility] RBC 3.96(L) 4.70 - 6.10 x10'6/uL 08/29/2024 8:25 AM CDT [facility] HGB 11.7(L) 14.0 - 18.0 G/DL 08/29/2024 8:25 AM CDT [facility] HCT 35.2(L) 43.0 - 54.0 % 08/29/2024 8:25 AM CDT [facility] MCV 88.9 80.0 - 94.0 FL 08/29/2024 8:25 AM CDT [facility] MCH 29.5 27.0 - 31.0 PG 08/29/2024 8:25 AM CDT [facility] MCHC 33.2 32.0 - 36.0 G/DL 08/29/2024 8:25 AM CDT [facility] RDW 18.3(H) 11.5 - 14.5 % 08/29/2024 8:25 AM CDT [facility] PLT 325 130 - 400 x10'3/uL 08/29/2024 8:25 AM CDT [facility] MPV 9.1(L) 9.3 - 12.2 FL 08/29/2024 8:25 AM CDT [facility] DIFFERENTIAL TYPE AUTOMATED DIFFERENTIAL 08/29/2024 8:25 AM CDT [facility] NEUTROPHILS % 69.0 % 08/29/2024 8:25 AM CDT [facility] LYMPHOCYTES % 18.7 % 08/29/2024 8:25 AM CDT [facility] MONOCYTES % 7.7 % 08/29/2024 8:25 AM CDT [facility] EOSINOPHILS 3.3 % 08/29/2024 8:25 AM CDT [facility] BASOPHILS 1.0 % 08/29/2024 8:25 AM CDT [facility] IMMATURE GRANS % 0.3 % 08/30/19 8:25 AM CDT [facility] ABS. NEUTROPHILS 5.40 1.80 - 7.70 x10'3/uL 08/29/2024 8:25 AM CDT [facility] ABS. LYMPHOCYTES 1.46 1.00 - 4.80 x10'3/uL 08/29/2024 8:25 AM CDT [facility] ABS. MONOCYTES 0.60 0.30 - 0.82 x10'3/uL 08/29/2024 8:25 AM CDT [facility] ABS. EOSINOPHILS 0.26 0.04 - 0.54 x10'3/uL 08/29/2024 8:25 AM CDT [facility] ABS. BASOPHILS 0.08 0.01 - 0.08 x10'3/uL 08/29/2024 8:25 AM CDT [facility] ABS. IMMATURE GRANULOCYTES 0.02 0.00 - 0.49 x10'3/uL 08/29/2024 8:25 AM CDT [facility] 08/29/2024 8:14 AM CDT us Steven Cash MD LABORATORY Final Result [facility] [address] [place] [address], [place] [phone] * TROPONIN, QUANT (08/29/2024 8:14 AM CDT) Only the most recent of2 resultswithin the time period is included. TROPONIN I HIGH SENSITIVITY 10 <79 ng/L 08/29/2024 9:15 AM CDT [facility] Comment: HIGH DOSES OF BIOTIN, TROPONIN-SPECIFIC AUTOANTIBODIES, AND ANTIBODY THERAPY CONTAINING HAMA MAY INTERFERE WITH THIS TEST RESULT. CORRELATION TO CLINICAL HISTORY AND PRESENTATION RECOMMENDED. 08/29/2024 8:14 AM CDT Steven Cash MD LABORATORY Final Result [facility] [address] [place] [phone], * MAGNESIUM (08/29/2024 8:14 AM CDT) Only the most recent of4 resultswithin the time period is included. MAGNESIUM 1.9 1.8 - 2.4 MG/DL 08/29/2024 9:15 AM CDT [facility] 08/29/2024 8:14 AM CDT Steven Cash MD LABORATORY Final Result [facility] [address] [place] [phone], * LIPASE (08/29/2024 8:14 AM CDT) Only the most recent of4 resultswithin the time period is included. LIPASE 20 13 - 75 UNITS/L 08/29/2024 9:15 AM CDT [facility] 08/29/2024 8:14 AM CDT Steven Cash MD LABORATORY Final Result Performing Organization Address City/[facility]/ZIP Co de Phone Number [facility] [address] [place] [phone], * (ABNORMAL) POCT glucose (08/29/2024 8:05 AM CDT) GLUCOSE POC 101(H) 70 - 99 mg/dL 08/29/2024 8:07 AM CDT [facility] 08/29/2024 8:05 AM CDT Attending Physician Emergency MD POCT ORDERABLES - DEVICE Final Result Performing Organization Address City/[facility] Co de Phone Number [facility] [address] [place] [phone], * ECG 12 lead (08/29/2024 8:03 AM CDT) 08/29/2024 8:03 AM CDT Narrative [facility] ([facility]) RAD - 08/30/2024 7:41 AM CDT [address] Test Date: 2024-08-29 Pat Name: MINGO VALDES Department: 41 Room: Gender: Male Chha: [id number] : 1965 Requested By: STEVEN CASH Order Number: [id number] Reading MD: Mingo Garcia Measurements Intervals [place] Rate: 83 P: 71 CA: 138 QRS: -16 QRSD: 86 T: 24 QT: 381 QTc: 448 Interpretive Statements SINUS RHYTHM WITH SINUS ARRHYTHMIA Compared to ECG 09/19/2023 19:22:59 Ventricular premature complex(es) no longer present No ischemic changes Preliminary EKG Interpretation by BERNARDO Callejas Procedure Note Mingo Garcia MD - 08/30/[address] Test Date: 2024-08-29 Pat Name: MINGO VALDES Department: 41 Room: Gender: Male Chha: [id number] : 1965 Requested By: STEVEN CASH Order Number: [id number] Reading MD: Mingo Garcia Measurements Intervals [place] Rate: 83 P: 71 CA: 138 QRS: -16 QRSD: 86 T: 24 QT: 381 QTc: 448 Interpretive Statements SINUS RHYTHM WITH SINUS ARRHYTHMIA Compared to ECG 09/19/2023 19:22:59 Ventricular premature complex(es) no longer present No ischemic changes Preliminary EKG Interpretation by BERNARDO Callejas Steven Cash MD ECG ORDERABLES Final Result Performing Organization Address City/[facility]/ZIP Co de Phone Number [facility] ([place] * (ABNORMAL) ETHANOL (07/06/2024 3:00 AM SPRINKLER TRUCK DRIVER) [facility] ALCOHOL S/P/B 0.158(H) <0.003 G/DL 07/06/2024 3:58 AM SPRINKLER TRUCK DRIVER [facility] 07/06/2024 3:00 AM SPRINK[employer]ER TRUCK DRIVER Daniel Hitchcock MD LABORATORY Final Resul t [facility] [address] [place] [address], [place] [phone] * OCCULT BLOOD, FECES (09/15/2019 4:49 PM CDT) [facility] OCCULT BLOOD FECAL NEGATIVE 09/15/2019 5:56 PM CDT [facility] STOOL SPECIMEN / Unknown 09/15/2019 4:49 PM CDT González Morataya PA-C BODY FLUIDS AND STOOLS ORDERAB LES Final Result [facility] [address] [place] [address], from Last 3 Months or Most Recently Relevant to Health Maintenance Insurance [facility] Advance Directives * Full Code (Latest Code [...] 11:31 PM 12/26/2020 7:51 PM Care Teams Groundskeeping Maintenance Relationship Specialty Start Date End Date Ronnell Escobar NP [address] [facility] [address] [place] [address] PCP - General NURSE PRACTITIONER 08/29/24
--- OUTSIDE RECORDS SUMMARY | 2024-09-09 00:28 | XMS_ITS | Encounter Summary ---
Author Organization [facility] Address [address] [place] [address] Care Team Providers Care Pediatric Nurse Practitioner Name Role Phone Lamberto Barker MD Primary Care Provider [phone] Ronnell Escobar NP Primary Care Provider Encounter Details Date Type Department Care Team (Late st Contact Info) Description 10/21/2022 [facility] Message [facility] [address] [address] [place], [facility] Provider Stress test [...] often do you attend chur ch or confucianist services? Never 12/25/2020 Do you belong to any clubs o r organizations such as orthodox groups, unions, fraternal or athletic groups, or [...] move on to questions 3-9 2 12/25/2020 [facility] - Occupational [...] place to sleep or slept in a longterm (including now)? 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
--- OUTSIDE RECORDS SUMMARY | 2024-09-09 00:28 | XMS_ITS | Continuity of Care Document ---
Author Organization [employer] [place] Address [address] [place] [address] [address] [place] [address] Phone Care Team Providers Care Building Maintenance Technician Name Role Phone Glenn Maciel Unavailable Unavailable Procedures Procedure Date Therapeutic Activities Manual Therapy Neuromuscular Re-Ed Therapeutic Exercise Therapeutic Activities Neuromuscular Re-Ed Manual Therapy Therapeutic Activities Manual Therapy Neuromuscular Re-Ed Therapeutic Activities Neuromuscular Re-Ed Therapeutic Exercise Manual Therapy Therapeutic Activities Neuromuscular Re-Ed Therapeutic Exercise Manual Therapy Therapeutic Activities Neuromuscular Re-Ed Therapeutic Activities Neuromuscular Re-Ed Therapeutic Exercise Manual Therapy Neuromuscular Re-Ed Therapeutic Exercise Therapeutic Activities Manual Therapy Therapeutic Activities Neuromuscular Re-Ed Therapeutic Exercise Manual Therapy Therapeutic Activities Neuromuscular Re-Ed Therapeutic Exercise Therapeutic Exercise Therapeutic Activities Neuromuscular Re-Ed Therapeutic [...] Therapy Therapeutic Exercise Therapeutic Activities Neuromuscular Re-Ed Therapeutic [...] Activities Neuromuscular Re-Ed Therapeutic Exercise Therapeutic Exercise Therapeutic Activities Neuromuscular Re-Ed Therapeutic Activities Neuromuscular Re-Ed Therapeutic Exercise Therapeutic Activities Therapeutic Exercise Neuromuscular Re-Ed Therapeutic Exercise Therapeutic Activities Neuromuscular Re-Ed Neuromuscular Re-Ed Therapeutic Activities Therapeutic Exercise Therapeutic Exercise Neuromuscular Re-Ed Therapeutic Activities Neuromuscular Re-Ed Therapeutic Activities Therapeutic Exercise Neuromuscular Re-Ed Therapeutic Exercise Therapeutic Activities Therapeutic Activities Therapeutic Exercise Neuromuscular Re-Ed Neuromuscular [...] Date Provider Providers Copied on Encounter [facility] [place], [address] [address], [place], [place], [id number], [place] tel:[phone] [place] No Information Oct-0 9-202 0 Muehl Glenn. [address] [place] [address], [address], [place], [address], [place]. tel:[phone] [place], [place] [address], [place], [place], [address], [place] tel:[phone] [place] No Information Oct-0 8-202 0 Muehl Glenn. [address] [place] [address], [address], [place], [address], [place]. tel:[phone] [place] [address] [address], [place], [place], [address], [place] tel:[phone] [place] No Information Oct-0 6-202 0 Lehnen Velma. . [facility] [address] [place], [place] [address], [place], [place], [id number], [place] tel:[phone] [place] No Information Oct-0 2-202 0 Lehnen Velma. . [facility] [address] [place], [place] [address], [place], [place], [address], [place] tel:[phone] [place] No Information Oct-0 1-202 0 Muehl Glenn. [address] [place] [address], [address], [place], [address], [place]. tel:[phone] [place], [place] [address], [place], [place], [address], [place] tel:[phone] [place] No Information Sep-2 9-202 0 Muehl Glenn. [address] [place] [address], [address], [place], [address], [place]. tel:[phone] [place], [place] [address], [place], [place], [address], [place] tel:[phone] [place] No Information Sep-2 4-202 0 Muehl Glenn. [address] [place] [address], [address], [place], [address], [place]. tel:[phone] [place], [place] [address], [place], [place], [id number], tel:[phone] [place] No Information Sep-2 2-202 0 Muehl Glenn. [address] [place] [address], [facility] [address], [place], [place], [facility], [place]. tel:[phone] [place], [place] [address], [place], [place], [address], tel:[phone] [place] No Information Sep-1 8-202 0 Muehl Glenn. [address] [place] [address], [address], [place], [facility], [place]. tel:[phone] [place], [place] [address], [place], [place], [address], tel:[phone] [place] No Information Sep-1 5-202 0 Muehl Glenn. [address] [place] [address], [facility] 105, [place], [facility], [place]. tel:[phone] [place] [address], [place], [place], [address], [place] tel:[phone] [place] No Information Sep-1 1-202 0 Darío Cervantes. . [address], [place], [place], [address], [place] tel:[phone] [place] No Information Sep-1 0-202 0 Muehl Glenn. [address] [place] [address], [facility] 105, [place], [facility], [place]. tel:[phone] [place], [place] [address], [place], [place], [address], [place] tel:[phone] [place] No Information Sep-0 8-202 0 Muehl Glenn. [address] [place] [address], [facility] 105, [place], [facility], [place]. tel:[phone] [place] [address], [place], [place], [address], [place] tel:[phone] [place] No Information Sep-0 4-202 0 Muehl Glenn. [address] [place] [address] [address], [place], [address], [place]. tel:[phone] [place], [place] [address], [place], [place], [address], [place] tel:[phone] [place] No Information Sep-0 3-202 0 Muehl Glenn. [address] [place] [address], [address], [place], [address], [place]. tel:[phone] [place], [place] [address], [place], [place], [address], [place] tel:[phone] [place] No Information Sep-0 1-202 0 Muehl Glenn. [address] [place] [address], [address], [place], [address], [place]. tel:[phone] [place] [address], [place], [place], [address], [place] tel:[phone] [place] No Information Aug-2 8-202 0 Threlkeld Shanell. . [address], [place], [place], [address], [place] tel:[phone] [place] No Information Aug-2 7- 0 Muehl Glenn. [address] [place] [address], [address], [place], [address], [place]. tel:[phone] [place] [address] [address], [place], [place], [address], [place] tel:[phone] [place] No Information Aug-2 5-202 0 Muehl Glenn. [address] [place] [address], [address], [place], [address], [place]. tel:[phone] [place] [address], [place], [place], [address], [place] tel:[phone] [place] No Information Aug-2 1-202 0 Muehl Glenn. [address] [place] [address], [address], [place], [address], [place]. tel:[phone] [place] [address] [address], [place], [place], [address], [place] tel:[phone] [place] No Information Aug-2 0-202 0 Muehl Glenn. [address] [place] [address], [address], [place], [place], [facility], [place]. tel:[phone] [place] [address] [place] [address], [place], [place], [address], [place] tel:[phone] [place] No Information Aug-1 8-202 0 Muehl Glenn. [address] [place] [address], [address], [place], [address], [place]. tel:[phone] [place] [address] [address], [place], [place], [address], [place] tel:[phone] [place] No Information Dec-1 3-202 0 Muehl Glenn. [address] [place] [address], [address], [place], [facility], [place]. tel:[phone] [place], [place] [address] [place] [address], [place], [place], [address], [place] tel:[phone] [place] No Information Dec-1 1- 0 Muehl Glenn. [address] [place] [address], [address], [place], [facility], [place]. tel:[phone] [place], [place] [address] [place] [address], [place], [place], [address], [place] tel:[phone] [place] No Information Aug-0 7-202 0 Niederhoffer Helen. . [facility], [place], [place], [address], [place] tel:[phone] [place] No Information Aug-0 6-202 0 Niederhoffer Helen. . [facility], [place], [place], [address], [place] tel:[phone] [place] No Information Aug-0 5-202 0 Jessa Carreon. . [facility], [place], [place], [address], [place] tel:[phone] [place] No Information Nov-3 1-202 0 Muehl Glenn. [address] [place] [address], [address], [place], [address], [place]. tel:[phone] [place] [address] [address], [place], [place], [address], [place] tel:[phone] [place] No Information Nov-3 0-202 0 Muehl Glenn. [address] [place] [address], [address], [place], [address], [place]. tel:[phone] [place] [address] [address], [place], [place], [address], [place] tel:[phone] [place] No Information Nov- 8-202 0 Muehl Glenn. [address] [place] [address], [address], [place], [address], [place]. tel:[phone] [place] [address] [address], [place], [place], [address], [place] tel:[phone] [place] No Information 2 4-202 0 Muehl Glenn. [address] [place] [address], [address], [place], [address], [place]. tel:[phone] [place] [address] [address], [place], [place], [address], [place] tel:[phone] [place] No Information Nov-2 3-202 0 Muehl Glenn. [address] [place] [address], [address], [place], [address], [place]. tel:[phone] [place] [address] [address], [place], [place], [address], [place] tel:[phone] [place] No Information Nov-2 1-202 0 Muehl Glenn. [address] [place] [address], [address], [place], [address], [place]. tel:[phone] [place] [address] [address], [place], [place], [address], [place] tel:[phone] [place] No Information Nov-1 6-202 0 Muehl Glenn. [address] [place] [address], [address], [place], [facility], [place]. tel:[phone] [place] [address] [address], [place], [place], [address], [place] tel:[phone] [place] No Information Nov-1 4-202 0 Muehl Glenn. [address] [place] [address], [address], [place], [facility], [place]. tel:[phone] [place] [address] [address], [place], [place], [address], [place] tel:[phone] [place] No Information Nov-1 0-202 0 Muehl Glenn. [address] [place] [address], [address], [place], [facility], [place]. tel:[phone] [place] [address] [address], [place], [place], [address], [place] tel:[phone] [place] No Information Nov-0 9-202 0 Muehl Glenn. [address] [place] [address], [address], [place], [facility], [place]. tel:[phone] [place] [address] [address], [place], [place], [address], [place] tel:[phone] [place] No Information Nov-0 7-202 0 Muehl Glenn. [address] [place] [address], [address], [place], [facility], [place]. tel:[phone] [place] [address] [address], [place], [place], [address], [place] tel:[phone] [place] No Information Nov-0 2-202 0 Muehl Glenn. [address] [place] [address], [address], [place], [facility], [place]. tel:[phone] [place] [address] [address], [place], [place], [address], [place] tel:[phone] [place] No Information Robert-3 0-202 0 Muehl Glenn. [address] [place] [address], [address], [place], [facility], [place]. tel:[phone] [place], [place] [address], [place], [place], [address], tel:[phone] [place] No Information Robert-2 9-202 0 Muehl Glenn. [address] [place] [address], [address], [place], [facility], [place]. tel:[phone] [place], [place] [address], [place], [place], [address], [place] tel:[phone] [place] No Information Robert-2 6-202 0 Muehl Glenn. [address] [place] [address], [address], [place], [facility], [place]. tel:[phone] [place] [address], [place], [address], [place] tel:[phone] [place] No Information Robert-2 5-202 0 Lehnen Velma. . [address], [place], [place], [address], [place] tel:[phone] [place] No Information Robert-2 3-202 0 Muehl Glenn. [address] [place] [address], [address], [place], [facility], [place]. tel:[phone] [place] [address], [place], [place], [address], [place] tel:[phone] [place] No Information Robert-1 9-202 0 Muehl Glenn. [address] [place] [address], [address], [place], [facility], [place]. tel:[phone] [place] [address], [place], [place], [address], tel:[phone] [place] No Information Robert-1 8-202 0 Muehl Glenn. [address] [place] [address], [address], [place], [facility], [place]. tel:[phone] [place] [address] 300, [place], [place], [address], tel:[phone] [place] No Information Oct-1 6-202 0 Muehl Glenn. [address] [place] [address], [address], [place], [facility], . tel:[phone] [place] [address] 300, [place], [place], [address], tel:[phone] [place] No Information 1 2-202 0 Muehl Glenn. [address] [place] [address], [address], [place] [address], . tel:[phone] [place] [address] 300, [place], [place], [address], tel:[phone] [place] No Information 1-202 0 Muehl Glenn. [address] [place] [address], [address], [place], [facility], . tel:[phone] [place] [address] 300, [place], [place], [address], tel:[phone] [place] No Information Robert-0 9-202 0 Muehl Glenn. [address] [place] [address], [address], [place] [address], . tel:[phone] [address] [place] [address], [place], [address], tel:[phone] [place] No Information Robert-0 5-202 0 Muehl Glenn. [address] [place] [address], [address] [address], . tel:[phone] Family History Family Member Type Diagnosis Age At Onset No Information Payers Payer name Insurance type Covered constitution party ID Authormarychuya skip(s) [facility] [id number] Social History Type Description Quantity Date Captured [...]
--- OUTSIDE RECORDS SUMMARY | 2024-09-09 00:28 | XMS_ITS | Encounter Summary ---
Author Organization 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 difficile suspected 08/16/2024 08/16/202408/16 2:48 PM [...] documented as of this encounter Care Teams Director Retirement Relationship Specialty Start Date End Date Unknown, Notinfile PCP - General 10/01/19 04/26/20 Lamberto Barker MD [address] [place] [address] PCP - General Internal Medicine 04/27/20 12/27/21 Don Walton PA [address] [place] [address] PCP - General Physician Woolen Suiting Shrinker 12/28/21 08/15/24 Ronnell Escobar NP [address] [place] [address] PCP - General Nurse Practitioner 08/16/24 Savanah Galvez, RN [address] [facility] [address] [place] [address] SHOP Outpatient Director Of Emergency Nursing 08/22/24 08/25/24 documented as of this encounter
--- OUTSIDE RECORDS SUMMARY | 2024-09-09 00:28 | XMS_ITS | Encounter Summary ---
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 difficile suspected 08/16/2024 08/16/202408/16 2:48 PM [...] documented as of this encounter Care Teams Stone Layout Marker Relationship Specialty Start Date End Date Unknown, Notinfile PCP - General 10/01/19 04/26/20 Lamberto Barker MD [address] [place], [place] [address] PCP - General Internal Medicine 04/27/20 12/27/21 Don Walton PA [address] [place], [place] [address] PCP - General Physician Community Associate 12/28/21 08/15/24 Ronnell Escobar NP [address] [place] [address] PCP - General Nurse Practitioner 08/16/24 Savanah Galvez, RN [address] [facility] [address] [place] [address] SHOP Outpatient Psych Specialist 08/22/24 08/25/24 documented as of this encounter
--- OUTSIDE RECORDS SUMMARY | 2024-09-09 00:28 | XMS_ITS | Encounter Summary ---
Author Organization [facility] Address [address] [place] [address] Care Team Providers Care School Traffic Guard Name Role Phone Lamberto Barker MD Primary Care Provider [phone] Ronnell Escobar NP Primary Care Provider [phone] Encounter Details Date Type Department Care Team (Late st Contact Info) Description 11/07/2022 [facility] Message Enc [facility] on [address] [address] [place], [facility] Provider Echocardiogram Social History Tobacco Use [...] How often do you attend chur or jew services? Never 12/25/2020 Do you [...] on to questions 3-9 2 12/25/2020 [facility] - Occupational [...] place to sleep or slept in a jail (including now)? 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
--- OUTSIDE RECORDS SUMMARY | 2024-09-09 00:29 | XMS_ITS | Referral Summary ---
Author Organization [facility] Address [address] [place] [address] Care Team Providers Care Benefits Processor Name Role Phone Ronnell Escobar NP Primary Care Provider [phone] Encounters Date Type Department Care Team Description 08/28/2024 Telephone [facility] Gastroenterology [facility] Advanced Medicine 12th [place] [address] [place] [address] Samson Esteban imaging due 08/28/2024 Orders Only [facility] Gastroenterology [address] [facility] Medicine 12th [place] [address] [place] [address] Kenneth Loya MD Necrotizing pancreatitis (Primary Dx) 08/26/2024 SHOP/CHAP Initial Outreach [facility] [address] [place] [id number] Svaanah Galvez RN 08/23/2024 SHOP/CHAP Initial Outreach [facility] [address] [place] [id number] Savanah Galvez RN 08/23/2024 Documentation [facility] Gastroenterology [facility] [address], [address] [place] [address] Sadaf Yates RN GI f/u recs 08/22/2024 SHOP/CHAP Initial Outreach [facility] [address] [place] [address] Savanah Galvez RN 08/22/2024 SHOP/CHAP Initial Eligibility Review [facility] [address] [place] [address] Savanah Galvez RN 08/15/2024 9:03 PM CDT - 08/21/2024 4:12 PM CDT Hospital Encounter [facility] [address] [place] [address] John De Anda MD Thoelke, Mark S W., MD Discharge Disposition: Discharge to home or self care 07/23/2024 10:42 AM JUDICIAL CLERK - 07/23/2024 3:32 PM JUDICIAL CLERK Emergency [facility] Emergency Department [address] [place] [id number] Discharge Disposition: Left without being seen from Last 3 Months Allergies Active Allergy Reactions Criticality Noted Date Comments Ciprofloxacin Hives Medium 06/02/2023 Patient stated he has previously tolerated PO. 06/02/23 had redness and hives after IV dose. Penicillins Rash Medium 05/08/2019 Lkckaavstwdl-Lrtpoiddyg-Bvx trs Angioedema High 09/17/[address] [...] daily 30 patch 01/12/20 22 Active multivit dvpehhvl-dntm-ME-ca lcium (THERA-M) 9 mg iron-400 mcg tablet [...] by mouth 3 (three) times a day 03/21/202024 Discontin ued(Stop Taking at Discharge ) Creon [...] 06/10/2023 Assessment & Plan (06/12/2023 2:18 PM JUDICIAL CLERK): Patient reports feeling constipated, gassy and [...] 06/08/2023 Assessment & Plan (06/09/2023 1:55 PM JUDICIAL CLERK): Resolved. Acute pancreatitis, unspecif ied complication status, unspecified pancreatitis type 06/04/2023 Assessment & Plan (06/05/2023 12:45 PM JUDICIAL CLERK): Longstanding bouts of pancreatitis originally from [...] 06/04/2023 Assessment & Plan (06/05/2023 12:48 PM JUDICIAL CLERK): Likely from pancreatitis. Also tender to palpation initially so may be a musculoskeletal component from dry heaving. Trops negative. EKG no ischemic changes. He reports hx of IA in the past, unclear circumstances. He had an exercise stress test in spring at an outside facility that he says was normal. Cont ASA. Gram-negative bacteremia 04/11/2023 Assessment & Plan (04/13/2023 7:02 PM JUDICIAL CLERK): - due to cholangitis - BCx + for E coli and K. Pneumoniae - repeat BCx drawn 04/11, ngtd - pansensitive organisms - d/c home today with flagyl/cipro Cholangitis 04/10/2023 Assessment & Plan (04/12/2023 6:21 PM JUDICIAL CLERK): - Improving - 04/10 ERCP - removal of two migrates stents with biliary obstruction and replaced with 2 new stents in biliary stricture - PRN analgesics and antiemetics Assessment & Plan (04/10/2023 2:40 AM JUDICIAL CLERK): -meets [place] criteria for acute cholangitis [...] less likely MRCP------> GI consult ordered in [facility] -NPO x sips, ice chips -IVFs overnight -PRN analgesics and antiemetics -repeat CBC, BMP, HFP in AM 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 Encounter for removal of biliary stent 3 Acute recurrent pancreatitis 01/26/2022 Post-ERCP acute pancreatitis 01/04/2022 Assessment & Plan (06/13/2023 2:35 PM JUDICIAL CLERK): Recently admitted from 06/04-06/05/23 after ERCP [...] (01/05/2022): Added automatically from request for surgery [id number] Assessment & Plan (04/11/2023 3:57 PM JUDICIAL CLERK): - improving -2/2 stent migration and resultant biliary obstruction Assessment & Plan (04/10/2023 2:27 AM JUDICIAL CLERK): -2/2 stent migration and resultant biliary obstruction -mgmt as above -repeat HFP in AM 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 Overview (11/30/2021): Added automatically from request for surgery [id number] Encounter for replacement of biliary stent 11/30 Overview (11/30/2021): Added automatically from request for surgery [id number] 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 Pancreatic pseudocyst 07/26/2021 Severe sepsis 07/08/2021 Assessment & Plan (07/13/2021 9:43 AM JUDICIAL CLERK): Pt elevated temp on 2 overnight [...] infection Assessment & Plan (07/12/2021 9:40 AM JUDICIAL CLERK): Pt elevated temp on 2 overnight [...] infection Assessment & Plan (07/11/2021 10:55 AM JUDICIAL CLERK): Pt elevated temp on 2 overnight [...] bed Assessment & Plan (07/10/2021 9:10 AM JUDICIAL CLERK): Pt elevated temp on 07/07 overnight 38.1 [...] daily Assessment & Plan (07/09/2021 2:23 PM JUDICIAL CLERK): Pt elevated temp on 07/07 overnight 38.1 [...] daily Assessment & Plan (07/08/2021 1:53 PM JUDICIAL CLERK): Pt elevated temp overnight 38.1 max, [...] 07/07/2021 Assessment & Plan (07/13/2021 9:43 AM JUDICIAL CLERK): Dobbhoff placed 2/10, tube feeding to initiated Osmolite 1.5 at 55mL/hr over 24h via NJ tube continuous via pump. Flush with 150mL water q4h. Now at goal of 55cc/hr. Can cycle at home as instructed. Will continue TF until follow up with GI as outpatient Assessment & Plan (07/12/2021 9:39 AM JUDICIAL CLERK): Dobbhoff placed 210, tube feeding to initiated Osmolite 1.5 at 55mL/hr over 24h via NJ tube continuous via pump. Flush with 150mL water q4h. Now at goal of 55cc/hr. Can cycle at home as instructed. Will continue TF until follow up with GI as outpatient Assessment & Plan (07/11/2021 10:55 AM JUDICIAL CLERK): Dobbhoff placed 2, tube feeding to initiated TF recommendations: Goal: Osmolite 1.5 at 55mL/hr over 24h via NJ tube continuous via pump. Flush with 150mL water q4h. Initiate TF at 10mL/hr and increase by 10mL q4h until goal rate is reached Pt at goal feeding 55 ml/hr and tolerating without event Continue TF feeding Monitor BMP, Mag, Phos Assessment & Plan (07/10/2021 9:08 AM JUDICIAL CLERK): Dobbhoff placed 2/10, tube feeding to [...] Phos Assessment & Plan (07/09/2021 2:25 PM JUDICIAL CLERK): Dobbhoff placed 07/08, tube feeding to initiated [...] prn Assessment & Plan (07/08/2021 1:11 PM JUDICIAL CLERK): Dobbhoff placed 07/08, tube feeding to initiate TF recommendations: Goal: Osmolite 1.5 at 55mL/hr over 24h via NJ tube continuous via pump. Flush with 150mL water q4h. Initiate TF at 10mL/hr and increase by 10mL q4h until goal rate is reached Chronic pancreatitis, unspecified pancreatitis t ype 07/06/2021 Assessment & Plan (07/13/2021 9:42 AM JUDICIAL CLERK): Ongoing acute episode of (developing) chronic [...] pt elida placed 07/[address] c/s tube feeding plan initiated and now at goal feeding and tolerating well. Will wean from IV pain meds to oxycodone for discharge to home Assessment & Plan (07/12/2021 9:38 AM JUDICIAL CLERK): Ongoing acute episode of (developing) chronic [...] 07/13 Assessment & Plan (07/11/2021 10:53 AM JUDICIAL CLERK): Ongoing acute episode of (developing) chronic [...] discharge Assessment & Plan (07/10/2021 9:07 AM JUDICIAL CLERK): Ongoing acute episode of developing chronic [...] feedings Assessment & Plan (07/09/2021 2:30 PM JUDICIAL CLERK): Ongoing acute episode of chronic pancreatitis. [...] CTM Assessment & Plan (07/08/2021 1:49 PM JUDICIAL CLERK): Ongoing acute episode of chronic pancreatitis. [...] plan Assessment & Plan (07/07/2021 11:22 AM JUDICIAL CLERK): Ongoing acute episode of chronic pancreatitis. [...] plan Assessment & Plan (07/06/2021 5:30 PM JUDICIAL CLERK): Ongoing acute episode of chronic pancreatitis. [...] 07/06/2021 Assessment & Plan (07/13/2021 9:42 AM JUDICIAL CLERK): Likely ATN related to hypotensive episode. Cr peaked at Cr at 2.31, now back to baseline after aggressive IVF and now tolerating TF. Assessment & Plan (07/12/2021 9:36 AM JUDICIAL CLERK): Likely ATN related to hypotensive episode. Cr peaked at Cr at 2.31, now back to baseline after aggressive IVF and now tolerating TF. Assessment & Plan (07/11/2021 10:54 AM JUDICIAL CLERK): Likely ATN related to hypotensive episode. Cr peaked at Cr at 2.31, now back to baseline after aggressive IVF, continue to monitor bmp, continue fluids Assessment & Plan (07/10/2021 9:08 AM JUDICIAL CLERK): Likely ATN related to hypotensive episode. Cr peaked at Cr at 2.31, now back to baseline after aggressive IVF, continue to monitor bmp, continue fluids Assessment & Plan (07/09/2021 2:29 PM JUDICIAL CLERK): Cr at baseline after aggressive IVF, continue to monitor bmp, continue fluids Assessment & Plan (07/08/2021 1:10 PM JUDICIAL CLERK): Cr baseline 0.8 now up to 1.3 on arrival due to po intolerance Aggressive IVF will monitor urine output Today net fluid intake 191 Cr trended up to 2.31 continue aggressive fluids Daily bmp Continue IVF Assessment & Plan (07/07/2021 11:19 AM JUDICIAL CLERK): Cr baseline 0.8 now up to 1.3 on arrival due to po intolerance Aggressive IVF will monitor urine output Today net fluid intake 191 Cr 1.05 improving with fluids Daily bmp Continue IVF Assessment & Plan (07/06/2021 5:39 PM JUDICIAL CLERK): Cr baseline 0.8 now up to 1.3 on arrival due to po intolerance Aggressive IVF will monitor urine output Alcohol dependence 06/25/2021 Assessment & Plan (06/07/2023 5:01 AM JUDICIAL CLERK): Last drink on [place] and he reports being motivated to remain [...] program Assessment & Plan (07/13/2021 9:42 AM JUDICIAL CLERK): Has a long history of alcohol [...] Group Assessment & Plan (07/12/2021 9:36 AM JUDICIAL CLERK): Has a long history of alcohol [...] Group Assessment & Plan (07/11/2021 10:54 AM JUDICIAL CLERK): Has a long history of alcohol [...] Group Assessment & Plan (07/10/2021 9:05 AM JUDICIAL CLERK): Has a long history of alcohol [...] Group Assessment & Plan (07/09/2021 2:33 PM JUDICIAL CLERK): Has a long history of alcohol [...] Group Assessment & Plan (07/08/2021 1:06 PM JUDICIAL CLERK): Has a long history of alcohol use with dependence. He states he has not had a drink since before his ERCP 06/22/2021 and has been on Vivitrol injections. His ethanol level on arrival to the ED is negative Plan to continue EtOH cessation and support with outpatient naltrexone therapy. Assessment & Plan (07/07/2021 11:13 AM JUDICIAL CLERK): Has a long history of alcohol use with dependence. He states he has not had a drink since before his ERCP 06/22/2021 and has been on Vivitrol injections. His ethanol level on arrival to the ED is negative Plan to continue EtOH cessation and support with outpatient naltrexone therapy. Assessment & Plan (07/06/2021 5:22 PM JUDICIAL CLERK): Has a long history of alcohol use with dependence. He states he has not had a drink since before his ERCP 06/22/2021 and has been on Vivitrol injections. His ethanol level on arrival to the ED is negative Plan to continue EtOH cessation and support with outpatient naltrexone therapy Assessment & Plan (06/28/2021 11:39 AM JUDICIAL CLERK): Long standing hx of alcohol dependence with hx of short term remission. Last drink was /. States he usually drinks hard liquor shot . Denies hx of seizure or delirium. On vivitrol but did not receive this month's shot due to being on analgesic for post ERCP pain control. -thiamine -folate -MVI -ciwa protocol - PRN Ativan, has not needed Assessment & Plan (06/27/2021 11:47 AM JUDICIAL CLERK): Long standing hx of alcohol dependence [...] needed Assessment & Plan (06/26/2021 11:59 AM JUDICIAL CLERK): Long standing hx of alcohol dependence [...] 06/25/2021 Assessment & Plan (06/07/2023 5:06 AM JUDICIAL CLERK): Markedly hypertensive on ED arrival in the setting of pain -Continue home Amlodipine 10 mg qday and losartan 25 mg qday Assessment & Plan (06/05/2023 12:47 PM JUDICIAL CLERK): Hypertensive initially from pain. Improved today. Cont home meds. Assessment & Plan (04/12/2023 6:21 PM JUDICIAL CLERK): -continue norvasc Assessment & Plan (04/10/2023 2:31 AM JUDICIAL CLERK): -resume norvasc in AM Assessment & Plan (01/11/2022 11:23 AM CDT): Continue norvasc Assessment & Plan (01/10/2022 11:40 AM CDT): Continue norvasc Assessment & Plan (07/13/2021 9:43 AM JUDICIAL CLERK): Continue to hold home lisinopril on account of recent hypotension/JOSE. With low normotensive BP will discontinue lisinopril. Follow up with PCP in 2-4 weeks to re evaluate restarting if needed Assessment & Plan (07/12/2021 9:38 AM JUDICIAL CLERK): Continue to hold home lisinopril on account of recent hypotension/JOSE. BP normal, may not require lisinopril on discharge. Assessment & Plan (07/11/2021 10:54 AM JUDICIAL CLERK): Continue to hold home lisinopril on account of recent hypotension/JOSE. BP normal, may not require lisinopril on discharge. Assessment & Plan (07/10/2021 9:06 AM JUDICIAL CLERK): Continue to hold home lisinopril on account of recent hypotension Assessment & Plan (07/09/2021 2:32 PM JUDICIAL CLERK): Continue to hold home lisinopril until more stable BP Assessment & Plan (07/08/2021 1:06 PM JUDICIAL CLERK): BP hypotensive overnight hold antihypertensives at this time. Assessment & Plan (07/07/2021 11:15 AM JUDICIAL CLERK): BP on remain normotensive Continue lisinopril and pain control Assessment & Plan (07/06/2021 5:30 PM JUDICIAL CLERK): BP on arrival normotensive Continue lisinopril and pain control Assessment & Plan (06/28/2021 11:39 AM JUDICIAL CLERK): Continue home lisinopril 40 mg -Monitor BP -BP stable Assessment & Plan (06/27/2021 11:48 AM JUDICIAL CLERK): Continue home lisinopril 40 mg -Monitor BP/Cr -BP stable Assessment & Plan (06/25/2021 4:55 PM JUDICIAL CLERK): Continue home lisinopril 40 mg -Monitor BP/Cr -Daily BMP Tobacco abuse 06/25/2021 Major depressive disorder 06/25/2021 Assessment & Plan (06/07/2023 5:07 AM JUDICIAL CLERK): Continue home duloxetine 30 mg BID and trazodone 50 mg qhs Assessment & Plan (06/04/2023 11:58 AM JUDICIAL CLERK): Cont home meds Assessment & Plan (01/11/2022 11:23 AM CDT): Continue duloxetine scheduled and trazodone prn Assessment & Plan (01/10/2022 11:40 AM CDT): Continue duloxetine scheduled and trazodone prn Assessment & Plan (07/13/2021 9:43 AM JUDICIAL CLERK): Most certainly contributing to his long standing alcohol use. Continue home meds duloxetine and trazodone Assessment & Plan (07/12/2021 9:38 AM JUDICIAL CLERK): Most certainly contributing to his long standing alcohol use. Continue home meds duloxetine and trazodone Assessment & Plan (07/11/2021 10:54 AM JUDICIAL CLERK): Most certainly contributing to his long standing alcohol use. Continue home meds duloxetine and trazodone Assessment & Plan (07/10/2021 9:06 AM JUDICIAL CLERK): Most certainly contributing to his long standing alcohol use. Continue home meds duloxetine and trazodone Assessment & Plan (07/09/2021 2:30 PM JUDICIAL CLERK): Most certainly contributing to his long standing alcohol use now with cessation Continue home meds duloxetine and trazodone Assessment & Plan (07/08/2021 1:09 PM JUDICIAL CLERK): Most certainly contributing to his long standing alcohol use now with cessation Continue home meds duloxetine and trazodone Assessment & Plan (07/07/2021 11:16 AM JUDICIAL CLERK): Most certainly contributing to his long standing alcohol use now with cessation Continue home meds duloxetine and trazodone Assessment & Plan (07/06/2021 5:32 PM JUDICIAL CLERK): Most certainly contributing to his long standing alcohol use now with cessation Continue home meds duloxetine and trazodone Assessment & Plan (06/28/2021 11:39 AM JUDICIAL CLERK): Continue home Trazodone 50 mg, Cymbalta 30 mg Resume Biofeedback at discharge Assessment & Plan (06/27/2021 11:48 AM JUDICIAL CLERK): Continue home Trazodone 50 mg, Cymbalta 30 mg Resume Biofeedback at discharge Assessment & Plan (06/25/2021 4:57 PM JUDICIAL CLERK): Continue home Trazodone 50 mg, Cymbalta 30 mg Resume Biofeedback at discharge Pancreatic duct obstruction 06/11/2021 Overview (06/11/2021): Added automatically from request for surgery [id number] Abdominal pain 06/11/2021 Overview (06/11/2021): Added automatically from request for surgery [id number] Necrotizing pancreatitis 10/21/2019 Therapeutic opioid induced constipation 10/21/19 20 Assessment & Plan (07/13/2021 9:44 AM JUDICIAL CLERK): Continue bowel regimen Assessment & Plan (07/12/2021 9:41 AM JUDICIAL CLERK): Bowel regimen ordered without BM. Will titrate bowel regimen Assessment & Plan (07/11/2021 10:58 AM JUDICIAL CLERK): Bowel regimen ordered Assessment & Plan (06/28/2021 11:39 AM JUDICIAL CLERK): Pt states no BM for the past week. Likely due to decrease intake and vomiting, possible contribution from opioids -daily bowel regimen, had BM Monday Assessment & Plan (06/27/2021 11:48 AM JUDICIAL CLERK): Pt states no BM for the past week. Likely due to decrease intake and vomiting, possible contribution from opioids -daily bowel regimen Assessment & Plan (06/26/2021 12:00 PM JUDICIAL CLERK): Pt states no BM for the past week. Likely due to decrease intake and vomiting, possibly contribution from opioids -daily bowel regimen -clear liquid diet Acute pancreatitis 05/08/2019 Assessment & Plan (06/28/2021 11:38 AM JUDICIAL CLERK): Hx of chronic pancreatis starting 3 [...] prioritized. Assessment & Plan (06/27/2021 11:46 AM JUDICIAL CLERK): Hx of chronic pancreatis starting 3 [...] prioritized. Assessment & Plan (06/26/2021 11:59 AM JUDICIAL CLERK): Hx of chronic pancreatis starting 3 years ago, worsening over the past one year 2/2 etoh abuse/dependency. Pt is followed by TRENT Loya. EUS 06/18 with enlarged lymph node [...] 04/11/2023 Assessment & Plan (04/10/2023 2:38 AM JUDICIAL CLERK): -migrated stent likely etiology of presenting symptoms and lab, CT findings -will likely need ERCP for stent exchange on Monday Metabolic acidosis, increased anion gap (IAG) 06/25/1907/09/2021 Assessment & Plan (07/09/2021 2:31 PM JUDICIAL CLERK): Dobbhoff placed 07/08, to start tube feeding TF recommendations: Goal: Osmolite 1.5 at 55mL/hr over 24h via NJ tube continuous via pump. Flush with 150mL water q4h. Initiate TF at 10mL/hr and increase by 10mL q4h until goal rate is reached Assessment & Plan (07/08/2021 1:49 PM JUDICIAL CLERK): Due to starvation in the setting [...] reached Assessment & Plan (07/07/2021 11:16 AM JUDICIAL CLERK): Due to starvation in the setting of intolerance to PO for the last 3-4 days. Will provide aggressive IVF Continue to discuss enteral feedings with the patient going forward, currently pt is refusing, GI will readdress with pt today with goal for placement today should pt agree. Change IVF to D5LR Assessment & Plan (07/06/2021 5:38 PM JUDICIAL CLERK): Due to starvation in the setting of intolerance to PO for the last 3-4 days. Will provide aggressive IVF Continue to discuss enteral feedings with the patient going forward Assessment & Plan (06/28/2021 11:39 AM JUDICIAL CLERK): Likely dehydration from pancreatitis, n/v and poor intake. Heme concentrated hgb 14.9 (baseline 8-9), wbc 14.4 no source of infection likely heme concentrated, anion gap 20, UA ketone +1. Resolved with IVF Assessment & Plan (06/27/2021 11:47 AM JUDICIAL CLERK): Likely dehydration from pancreatitis, n/v and poor intake. Heme concentrated hgb 14.9 (baseline 8-9), wbc 14.4 no source of infection likely heme concentrated, anion gap 20, UA ketone +1. Resolved with IVF Assessment & Plan (06/26/2021 12:00 PM JUDICIAL CLERK): Likely dehydration from pancreatitis, n/v and [...] Other - already given.) Td, adsorbed 07/01/1998 Social History Tobacco Use Types Packs/Day Years Used Date Smoking Tobacco: Former Cigarettes Smokeless Tobacco: Never Tobacco Cessation:Counseling Given: Not Answered Alcohol Use Standard Drinks/Week Comments Yes 0 (1 standard drink = 0.6 oz pur e alcohol) [facility] Utilities Answer Date Recorded In the past 12 months has [employer], gas, oil, or water [employer] threatened to shut off services in your [...] any clubs o r organizations such as uatsdin groups, unions, fraternal or athletic groups, or [...] care, and heating? Not very hard 08/15/2024 [facility] - [facility] [...] money to buy more. Never true 08/16/19 25 Within the past 12 months, t he [...] any time in the past 12 m [facility], were you homeless or living in a long-term (including now)? No 08/15/2024 Personal Safety Answer Date Recorded Have you ever been in or are you currently in a harmful physical or emotional relationship or is someone making you feel afraid or unsafe? Denies 08/15/2024 Sex and Gender Information Value Date Recorded Sex Assigned at Not on file Legal Sex Male 1:58 AM JUDICIAL CLERK Gender Identity Not on file Sexual [...] 08/15/2024 9:18 PM CDT Plan of Treatment Not on file Medical Devices Implanted Type Area Soda Tester Device Identifier Shelf Expiration Date Model / Serial / Lot [employer] Kemal 8.5 Fr Nasal Biliary Catheter [id number] - [id number] Implanted:Qty: 1 on 01/26/2022 by Kenneth Loya MD at [facility] Catheter [employer] Kemal 06/22/2024 [id number] / / [id number] [employer] Kemal 10fr 5cm Biliary Double Pigtail Stent [id number] - [id number] Implanted:Qty: 1 on 09/21/2023 by Kenneth Loya MD at [facility] Stent N/A: Bile Duct [employer] Kemal 08/14/2025 [id number] / / [id number] [employer] Kemal 10fr 5cm Biliary Stent [id number] - [id number] Implanted:Qty: 1 on 09/21/2023 by Kenneth Loya MD at [facility] Stent N/A: Bile Duct [employer] Kemal 07/03/2025 [id number] / / [id number] [employer] Kemal 10fr 5cm Biliary Double Pigtail Stent [id number] - [id number] Implanted:Qty: 1 on 09/21/2023 by Kenneth Loya MD at [facility] Stent N/A: Bile Duct [employer] Kemal 08/23/2025 [id number] / / [id number] [employer] Kem[employer] 10fr 5cm Biliary Double Pigtail Stent [id number] - [id number] Implanted:Qty: 1 on 09/21/2023 by Kenneth Loya MD at [facility] Stent N/A: Bile Duct [employer] 08/23/2025 [id number] / / [id number] [employer] Kemal 10fr 5cm Biliary Double Pigtail Stent [id number] - [id number] Implanted:Qty: 1 on 09/21/2023 by Kenneth Loya MD at [facility] Stent N/A: Bile Duct [employer] Kem[employer] 08/14/2025 [id number] / / [id number] [employer] Kem[employer] 10fr 7cm Biliary Stent [id number] - [id number] Implanted:Qty: 1 on 04/10/2023 by John De Anda MD at [facility] [employer] [id number] 12/13/2024 [id number] / / [id number] [employer] Kem[employer] 10fr 7cm Biliary Stent [id number] - [id number] Implanted:Qty: 1 on 04/10/2023 by John De Anda MD at [facility] [employer] Kem[employer] [id number] 02/07/2025 [id number] / / [id number] Explanted Type Area Soda Tester Device Identifier Shelf Expiration Date Model / Serial / Lot [employer] [id number] [employer]-Young 10fr 7cm Taper Tip Guidewire Proximal Distal Flap - [id number] Implanted:Qty: 1 on 08/04/2021 by Kenneth Loya MD at [facility] Explanted:Qty: 1 on 08/30/2021 at [facility] Stent N/A: Bile Duct [employer] 01/28/2024 [id number] / / [id number] [employer] 10 X 10 Stent Delivery System [id number] - [id number] Implanted:Qty: 1 on 08/04/2021 by Kenneth Loya MD at [facility] Explanted:Qty: 1 on 08/30/2021 at [facility] Stent N/A: Bile Duct [employer] 10/13/2022 [id number] / / [id number] [employer] Geenen 7fr 7cm Positioning Sleeve Push Catheter Guidewire [id number] - [id number] Implanted:Qty: 1 on 08/30/2021 at [facility] Explanted:Qty: 1 on 11/01/2021 by Kenneth Loya MD at [facility] Stent N/A: Pancreas [employer] 11/06/2023 [id number] / / [id number] [employer] 10fr 5cm Biliary Stent [id number] - [id number] Implanted:Qty: 1 on 01/26/2022 by Kenneth Loya MD at [facility] Explanted:Qty: 1 on 04/06/2022 by Kenneth Loya MD at [facility] Stent [employer] 11/16/2023 [id number] / / [id number] [employer] Advanix Naviflex 7fr 9cm Radiopaque [place] Endo Marker Color Coded [id number] - [id number] Implanted:Qty: 1 on 01/26/2022 by Kenneth Loya MD at [facility] Explanted:Qty: 1 on 04/06/2022 at [facility] Stent [employer] 04/16/2023 [id number] / / [id number] [employer] Advanix 8.5fr 7cm Rapid Exchange Temporary [place] Stent [id number] - [id number] Implanted:Qty: 1 on 04/06/2022 by Kenneth Loya MD at [facility] Explanted:Qty: 1 on 07/06/2022 by Kenneth Loya MD at [facility] Stent N/A: Pancreas [employer] 10/26/2023 [id number] / / [id number] [employer] Advanix 8.5fr 7cm Rapid Exchange Temporary [place] Stent [id number] - [id number] Implanted:Qty: 1 on 04/06/2022 by Kenneth Loya MD at [facility] Explanted:Qty: 1 on 07/06/2022 by Kenneth Loya MD at [facility] Stent N/A: Pancreas [employer] 10/26/2023 [id number] / / [id number] [employer] 10fr 5cm Biliary Stent [id number] - [id number] Implanted:Qty: 1 on 09/08/2022 by Kenneth Loya MD at [facility] Explanted:Qty: 1 on 11/03/2022 by Kenneth Loya MD at [facility] Stent N/A: Bile Duct [employer] 08/07/2024 [id number] / / [id number] [employer] 10fr 5cm Biliary Stent [id number] - [id number] Implanted:Qty: 1 on 09/08/2022 by Kenneth Loya MD at [facility] Explanted:Qty: 1 on 11/03/2022 by Kenneth Loya MD at [facility] Stent N/A: Bile Duct [employer] 05/04/2024 [id number] / / [id number] [facility] [facility] Flexi-Stent 7fr 7cm Small Pigtail Flexible .035in Stent 6574 - [id number] Implanted:Qty: 1 on 09/08/2022 by Kenneth Loya MD at [facility] Explanted:Qty: 1 on 11/03/2022 by Kenneth Loya MD at [facility] Stent N/A: Bile Duct [employer] 05/28/2027 [id number] / / [id number] [employer] Geenen 8.5fr 9cm Drain Obstructed Positioning Sleeve Pushing [id number] - [id number] Implanted:Qty: 1 on 04/06/2022 by Kenneth Loya MD at [facility] Explanted:Qty: 1 on 01/05/2023 by Kenneth Loya MD at [facility] Stent N/A: Pancreas [employer] 05/03/2024 [id number] / / [id number] [employer] [place]wright Flexi-Stent 7fr 7cm Small Pigtail Flexible .035in Stent 6574 - [id number] Implanted:Qty: 1 on 11/03/2022 by Kenneth Loya MD at [facility] Explanted:Qty: 1 on 01/05/2023 by Kenneth Loya MD at [facility] Stent N/A: Pancreas [employer] 05/28/2027 [id number] / / [id number] [employer] 10fr 5cm Biliary Stent [id number] - [id number] Implanted:Qty: 1 on 11/03/2022 by Kenneth Loya MD at [facility] Explanted:Qty: 1 on 01/05/2023 at [facility] Stent N/A: Bile Duct [employer] 08/15/2024 [id number] / / [id number] [employer] Cotton-Young 10fr 5cm Taper Tip Soft Proximal Distal Flap Gentle [id number] - [id number] Implanted:Qty: 1 on 11/03/2022 by Kenneth Loya MD at [facility] Explanted:Qty: 1 on 01/05/2023 by Kenneth Loya MD at [facility] Stent N/A: Bile Duct [employer] 08/10/2025 [id number] / / [id number] [employer] [place] Flexi-Stent 4fr 7cm Small Pigtail Flexible .025in Stent 6544 - [id number] Implanted:Qty: 1 on 01/05/2023 by Kenneth Loya MD at [facility] Explanted:Qty: 1 on 06/02/2023 at [facility] Stent N/A: Pancreas [employer] 07/27/2027 [id number] / / [id number] Description:Not present on t his procedure [employer] 10fr 7cm Biliary Stent [id number] - [id number] Implanted:Qty: 1 on 01/05/2023 by Kenneth Loya MD at [facility] Explanted:Qty: 1 on 06/02/2023 by Jero Soto MD at [facility] Stent N/A: Bile Duct [employer] 12/13/2024 [id number] / / [id number] [employer] 10fr 7cm Biliary Stent [id number] - [id number] Implanted:Qty: 1 on 01/05/2023 by Kenneth Loya MD at [facility] Explanted:Qty: 1 on 06/02/2023 by Jero Soto MD at [facility] Stent N/A: Bile Duct [employer] 12/13/2024 [id number] / / [id number] [employer] 10fr 5cm Biliary Double Pigtail Stent [id number] - [id number] Implanted:Qty: 1 on 06/02/2023 by Kenneth Loya MD at [facility] Explanted:Qty: 1 on 09/21/2023 by Kenneth Loya MD at [facility] Stent N/A: Bile Duct [employer] 04/30/2025 [id number] / / [id number] [employer] 10fr 5cm Biliary Double Pigtail Stent [id number] - [id number] Implanted:Qty: 1 on 06/02/2023 by Kenneth Loya MD at [facility] Explanted:Qty: 1 on 09/21/2023 by Kenneth Loya MD at [facility] Stent N/A: Bile Duct [employer] 04/30/2025 [id number] / / [id number] [employer] 10fr 5cm Biliary Stent [id number] - [id number] Implanted:Qty: 1 on 06/02/2023 by Kenneth Loya MD at [facility] Explanted:Qty: 1 on 09/21/2023 by Kenneth Loya MD at [facility] Stent N/A: Bile Duct [employer] 02/28/2025 [id number] / / [id number] [employer] 10fr 5cm Biliary Double Pigtail Stent [id number] - [id number] Implanted:Qty: 1 on 06/02/2023 by Kenneth Loya MD at [facility] Explanted:Qty: 1 on 09/21/2023 by Kenneth Loya MD at [facility] Stent N/A: Bile Duct [employer] 04/30/2025 [id number] / / [id number] [employer] [id number] Advanix 10fr 5cm Rapid Exchange Temporary [place] Stent - [id number] Implanted:Qty: 1 on 06/18/2021 by Kenneth Loya MD at [facility] Explanted:Qty: 1 on 08/30/2021 at [facility] [employer] 06/30/2022 [id number] / / [id number] Description:Removed prior [employer] Advanix Od10 Fr L7 Cm 1; Temporary Duodenal Bend Stent Biliary Pl [id number] - [id number] Implanted:Qty: 1 on 08/30/2021 at [facility] Explanted:Qty: 1 on 11/01/2021 by Kenneth Loya MD at [facility] N/A: Bile Duct [employer] 06/25/2022 [id number] / / [id number] [employer] Advanix Naviflex 10fr 9cm Lead Joana Radiopaque Flexible [id number] - [id number] Implanted:Qty: 1 on 11/01/2021 by Kenneth Loya MD at [facility] Explanted:Qty: 1 on 01/05/2022 by Contreras Girard MD at [facility] N/A: Pancreas [employer] 07/18/2022 [id number] / / [id number] 10fr 5cm Biliary Stent [id number] - [id number] Implanted:Qty: 1 on 11/01/2021 by Kenneth Loya MD at [facility] Explanted:Qty: 1 on 01/05/2022 at [facility] N/A: Bile Duct [employer] 08/12/2023 [id number] / / [id number] 10fr 7cm Biliary Stent [id number] - [id number] Implanted:Qty: 1 on 11/01/2021 by Kenneth Loya MD at [facility] Explanted:Qty: 1 on 01/05/2022 by Contreras Girard MD at [facility] N/A: Bile Duct [employer] 08/23/2023 [id number] / / [id number] [employer] Cotton-Young 10fr 5cm Taper Tip Soft Proximal Distal Flap Gentle [id number] - [id number] Implanted:Qty: 1 on 01/05/2022 by Contrears Girard MD at [facility] Explanted:Qty: 1 on 01/26/2022 at [facility] N/A: Bile Duct [employer] 05/07/2022 [id number] / / [id number] [employer] Advanix 7fr 7cm Lead Joana Radiopaque [place] Endo Marker Drainage [id number] - [id number] Implanted:Qty: 1 on 07/06/2022 by Kenneth Loya MD at [facility] Explanted:Qty: 1 on 09/08/2022 by Kenneth Loya MD at [facility] N/A: Pancreas [employer] 05/03/2023 [id number] / / [id number] [employer] 10fr 5cm Biliary Stent [id number] - [id number] Implanted:Qty: 1 on 07/06/2022 by Kenneth Loya MD at [facility] Explanted:Qty: 1 on 09/08/2022 by Kenneth Loya MD at [facility] N/A: Bile Duct [employer] 12/24/2022 [id number] / / [id number] [employer] 10fr 5cm Biliary Stent [id number] - [id number] Implanted:Qty: 1 on 07/06/2022 by Kenneth Loya MD at [facility] Explanted:Qty: 1 on 09/08/2022 by Kenneth Loya MD at [facility] N/A: Bile Duct [employer] 11/16/2023 [id number] / / [id number] [employer] 10fr 7cm Biliary Stent [id number] - [id number] Explanted:Qty: 1 on 04/10/2023 by John De Anda MD at [facility] [employer] [id number] 12/13/2024 [id number] / / [id number] Description:Unable to place despite multiple attempts Procedures [...] PM CDT EGFR STAT 07/23/2024 11:01 AM JUDICIAL CLERK DIFFERENTIAL AUTO STAT 07/23/2024 11: 01 AM JUDICIAL CLERK ETHANOL STAT 07/23/2024 11:01 AM JUDICIAL CLERK CBC WITH AUTO DIFFERENTIAL STAT 07/23/2024 11:01 AM JUDICIAL CLERK COMPREHENSIVE METABOLIC PANEL STAT 07/23/2024 11:01 AM JUDICIAL CLERK from Last 3 Months Results * (ABNORMAL) POCT glucose (08/21/2024 7:30 AM CDT) Glucose, POC 206(H) 70 - 199 mg/dL Blood 08/21/2024 7:30 AM CDT 08/21/2024 7:30 AM CDT Arley Cheung MD LAB POCT ORDERABLES - DEVIC E Final Result [facility] [place] [address] * POCT glucose (08/21/2024 5:37 AM CDT) Glucose, POC 113 70 - 199 mg/dL Blood 08/21/2024 5:37 AM CDT 08/21/2024 5:37 AM CDT Result [facility] Arley Cheung MD LAB POCT ORDERABLES - DEVIC E Final Result Performing Organization Address City/[facility]/ZIP Co de Phone Number [facility] [place] [address] * Infection Prevention Lanny auris PCR, surveillance Axilla/Groin (08/21/2024 5:26 AM CDT) [facility] Lanny auris DNA Not Detected Not Detected [facility] Comment: Interpretive Data Testing performed by [facility] Molecular Infectious Disease Laboratory using the Emerson johnny 6800 Lanny auris assay. This assay detects DNA from Lanny auris using Real-Time PCR. This assay is laboratory developed and is not cleared by the [place] Food and Drug Administration. The performance characteristics have been verified by the [facility] Molecular Infectious Disease Laboratory. Axilla/Groin 08/21/2024 5:26 AM CDT 08/21/2024 6:32 AM CDT Michael Claudio MD LAB MICROBIOLOGY - GENERAL ORDER DELIO Final Result Performing Organization Address [facility] Co de Phone Number [place] [address] [facility] * CP-CRE culture, surveillance Rectal swab (08/21/2024 5:26 AM CDT) Report Final Report: Negative Rectal swab 08/21/2024 5:26 AM CDT 08/21/2024 6:39 AM CDT Narrative ELENANER [facility] - 08/22/2024 11:59 AM CDT Interpretive Data The screening agar used for the detection of carbapenemase-producing Enterobacterales (CP-CRE) has not been approved by the Food and Drug Administration. The performance characteristics of this medium have been evaluated and verified by the [facility] Microbiology Laboratory. This media demonstrates highest sensitivity for KPC and NDM-1 producing isolates. This screening assay is exclusively intended for infection control and surveillance, not for patient diagnosis or treatment purposes. Current interpretive data was last revised on 2023. Michael Claudio MD LAB MICROBIOLOGY - GENERAL ORDER DELIO Final Result Performing Organization Address [facility] de Phone Number [facility] [place] [address] * eGFR (08/21/2024 4:48 AM CDT) eGFR >90 >=60 mL/min/1. 73 [...] of Race in Diagnosing Kidney Disease, JASN 202). The CKD-EPI equation should not be used for patients with unstable renal function and has not been validated in children and those over 70. Current interpretive data was last reviewed 2021. Blood 08/21/2024 4:48 AM CDT 08/21/2024 5:47 AM CDT Arley Cheung MD LAB BLOOD ORDERABLES Final Result [facility] [place] [address] * Differential, auto (08/21/2024 4:48 AM CDT) Neutrophil abs 6.0 1.5 - 6.5 K/cumm Imm gran abs 0.0 0.0 - 0.1 K/cumm [facility] Lymphocyte abs 1.6 0.8 - 3.3 K/cumm [facility] Monocyte abs 0.7 0.2 - 0.8 K/cumm [facility] Eosinophil abs 0.3 0.0 - 0.5 K/cumm [facility] Basophil abs 0.1 0.0 - 0.1 K/cumm [facility] Neutrophil pct 68.4 % [facility] Comment: Interpretive Data Percent cell count reference ranges are not reported, since discordance with absolute values may lead to misinterpretation of CBC data. Current Interpretive Data was last revised on 2017. Imm gran pct 0.3 % [facility] Comment: Interpretive Data Percent cell count reference ranges are not reported, since discordance with absolute values may lead to misinterpretation of CBC data. Current Interpretive Data was last revised on 2017. Lymphocyte pct 18.6 % [facility] Comment: Interpretive Data Percent cell count reference ranges are not reported, since discordance with absolute values may lead to misinterpretation of CBC data. Current Interpretive Data was last revised on 2017. Monocyte pct 8.2 % [facility] Comment: Interpretive Data Percent cell count reference ranges are not reported, since discordance with absolute values may lead to misinterpretation of CBC data. Current Interpretive Data was last revised on 2017. Eosinophil pct 3.2 % [facility] Comment: Interpretive Data Percent cell count reference ranges are not reported, since discordance with absolute values may lead to misinterpretation of CBC data. Current Interpretive Data was last revised on 2017. Basophil pct 1.3 % [facility] Comment: Interpretive Data Percent cell count reference ranges are not reported, since discordance with absolute values may lead to misinterpretation of CBC data. Current Interpretive Data was last revised on 2017. Blood 08/21/2024 4:48 AM CDT 08/21/2024 5:47 AM CDT us Arley Cheung MD LAB BLOOD ORDERABLES Final Result [facility] [place] [address] * (ABNORMAL) CBC with auto differential (08/21/2024 4:48 AM CDT) WBC 8.8 3.8 - 9.9 K/cumm Hgb 10.4(L) 13.0 - 17.5 g/dL [facility] Hct 31.8(L) 38.9 - 50.3 % [facility] Plt 609(H) 150 - 400 K/cumm [facility] MPV 9.3 9.1 - 12.3 fL [facility] RBC 3.53(L) 4.30 - 5.80 M/cumm [facility] MCV 90.1 81.3 - 96.4 fL [facility] MCH 29.5 27.1 - 33.3 pg [facility] MCHC 32.7 32.3 - 35.7 g/dL [facility] RDW CV 17.2(H) 11.1 - 14.9 % [facility] RDW SD 56.5(H) 35.7 - 48.1 fL [facility] NRBC abs 0.00 0.00 - 0.01 K/cumm [facility] Blood 08/21/2024 4:48 AM CDT 08/21/2024 5:47 AM CDT us Arley Cheung MD LAB BLOOD ORDERABLES Final Result Performing Organization Address [facility] Co de Phone Number [facility] [place] [address] * Phosphorus (08/21/2024 4:48 AM CDT) Phosphorus, pl 3.9 2.3 - 4.5 mg/dL Blood 08/21/2024 4:48 AM CDT 08/21/2024 5:47 AM CDT us Arley Cheung MD LAB BLOOD ORDERABLES Final Result Performing Organization Address [facility] de Phone Number [facility] [place] [employer] [place] [address] * Magnesium (08/21/2024 4:48 AM CDT) Pathologist [facility] Magnesium 1.9 1.4 - 2.5 mg/dL Blood 08/21/2024 4:48 AM CDT 08/21/2024 5:47 AM CDT Arley Cheung MD LAB BLOOD ORDERABLES Final Result Performing Organization Address [facility] de Phone Number [facility] [employer] [address] * (ABNORMAL) Hepatic function panel (08/21/2024 4:48 AM CDT) Bilirubin, total <0.2 0.1 - 1.2 mg/dL Bilirubin, direct <0.2 0.1 - 0.3 mg/dL [facility] Protein, pl 6.2(L) 6.5 - 8.5 g/dL [facility] Albumin 3.1(L) 3.5 - 5.0 g/dL [facility] Alk phos 87 40 - 130 Units/L [facility] ALT 9 7 - 55 Units/L [facility] AST 18 10 - 50 Units/L [facility] Blood 08/21/2024 4:48 AM CDT 08/21/2024 5:47 AM CDT Arley Cheung MD LAB BLOOD ORDERABLES Final Result [facility] [place] [address] * (ABNORMAL) Basic metabolic panel (08/21/2024 4:48 AM CDT) Sodium 139 135 - 145 mmol/L Potassium, pl 4.7 3.3 - 4.9 mmol/L [facility] Chloride 107 97 - 110 mmol/L [facility] CO2 26 22 - 32 mmol/L [facility] Anion gap 6 2 - 15 mmol/L [facility] BUN 5(L) 6 - 25 mg/dL [facility] Creatinine 0.73(L) 0.80 - 1.30 mg/dL [facility] Glucose 115 70 - 199 mg/dL [facility] Comment: Interpretive Data Fasting glucose >/= 126 [...] 2022. Calcium 9.3 8.5 - 10.3 mg/dL [facility] Blood 08/21/2024 4:48 AM CDT 08/21/2024 5:47 AM CDT us Arley Cheung MD LAB BLOOD ORDERABLES Final Result Performing Organization Address [facility] Co de Phone Number [facility] [place] [address] * POCT glucose (08/20/2024 8:23 PM CDT) Glucose, POC 134 70 - 199 mg/dL Blood 08/20/2024 8:23 PM CDT 08/20/2024 8:23 PM CDT us Arley Cheung MD LAB POCT ORDERABLES - DEVIC E Final Result Performing Organization Address [facility] de Phone Number [facility] [place] [address] * POCT glucose (08/20/2024 5:21 PM CDT) Glucose, POC 165 70 - 199 mg/dL Blood 08/20/2024 5:21 PM CDT 08/20/2024 5:21 PM CDT us Arley Cheung MD LAB POCT ORDERABLES - DEVIC E Final Result Performing Organization Address [facility] Co de Phone Number [facility] [place] [address] * POCT glucose (08/20/2024 12:20 PM CDT) Glucose, POC 74 70 - 199 mg/dL Blood 08/20/2024 12:2 0 PM CDT 08/20/2024 12:20 PM CDT us Arley Cheung MD LAB POCT ORDERABLES - DEVIC E Final Result Performing Organization Address City/[facility] Co de Phone Number [facility] [place] [address] * POCT glucose (08/20/2024 7:43 AM CDT) Glucose, POC 97 70 - 199 mg/dL Blood 08/20/2024 7:43 AM CDT 08/20/2024 7:43 AM CDT Arley Cheung MD LAB POCT ORDERABLES - DEVIC E Final Result [facility] [place] [address] * eGFR (08/20/2024 5:13 AM CDT) Pathologist [facility] eGFR >90 >=60 mL/min/1. 73 m2 Comment: [...] MD LAB BLOOD ORDERABLES Final Result [facility] [place] [address] * (ABNORMAL) Differential, auto (08/20/2024 5:13 AM CDT) Neutrophil abs 2.5 1.5 - 6.5 K/cumm Imm gran abs 0.0 0.0 - 0.1 K/cumm [facility] Lymphocyte abs 2.3 0.8 - 3.3 K/cumm [facility] Monocyte abs 0.6 0.2 - 0.8 K/cumm [facility] Eosinophil abs 0.3 0.0 - 0.5 K/cumm [facility] Basophil abs 0.2(H) 0.0 - 0.1 K/cumm [facility] Neutrophil pct 42.6 % [facility] Comment: Interpretive Data Percent cell count reference ranges are not reported, since discordance with absolute values may lead to misinterpretation of CBC data. Current Interpretive Data was last revised on 2017. Imm gran pct 0.3 % [facility] Comment: Interpretive Data Percent cell count reference ranges are not reported, since discordance with absolute values may lead to misinterpretation of CBC data. Current Interpretive Data was last revised on 2017. Lymphocyte pct 39.7 % [facility] Comment: Interpretive Data Percent cell count reference ranges are not reported, since discordance with absolute values may lead to misinterpretation of CBC data. Current Interpretive Data was last revised on 2017. Monocyte pct 9.7 % [facility] Comment: Interpretive Data Percent cell count reference ranges are not reported, since discordance with absolute values may lead to misinterpretation of CBC data. Current Interpretive Data was last revised on 2017. Eosinophil pct 5.1 % [facility] Comment: Interpretive Data Percent cell count reference ranges are not reported, since discordance with absolute values may lead to misinterpretation of CBC data. Current Interpretive Data was last revised on 2017. Basophil pct 2.6 % [facility] Comment: Interpretive Data Percent cell count reference ranges are not reported, since discordance with absolute values may lead to misinterpretation of CBC data. Current Interpretive Data was last revised on 2017. Blood 08/20/2024 5:13 AM CDT 08/20/2024 5:40 AM CDT Arley Cheung MD LAB BLOOD ORDERABLES Final Result Performing Organization Address [facility] Co de Phone Number [facility] [place] [address] * (ABNORMAL) CBC with auto differential (08/20/2024 5:13 AM CDT) Pathologist [facility] WBC 5.9 3.8 - 9.9 K/cumm Hgb 10.8(L) 13.0 - 17.5 g/dL [facility] Hct 32.6(L) 38.9 - 50.3 % [facility] Plt 628(H) 150 - 400 K/cumm [facility] MPV 8.8(L) 9.1 - 12.3 fL [facility] RBC 3.62(L) 4.30 - 5.80 M/cumm [facility] MCV 90.1 81.3 - 96.4 fL [facility] MCH 29.8 27.1 - 33.3 pg [facility] MCHC 33.1 32.3 - 35.7 g/dL [facility] RDW CV 17.2(H) 11.1 - 14.9 % [facility] RDW SD 57.0(H) 35.7 - 48.1 fL [facility] NRBC abs 0.00 0.00 - 0.01 K/cumm [facility] Blood 08/20/2024 5:13 AM CDT 08/20/2024 5:40 AM CDT Arley Cheung MD LAB BLOOD ORDERABLES Final Result Performing Organization Address City/[facility]/ZIP Co de Phone Number [facility] [place] [address] * Phosphorus (08/20/2024 5:13 AM CDT) Pathologist [facility] Phosphorus, pl 3.3 2.3 - 4.5 mg/dL Blood 08/20/2024 5:13 AM CDT 08/20/2024 5:41 AM CDT us Arley Cheung MD LAB BLOOD ORDERABLES Final Result Performing Organization Address City/[facility] Co de Phone Number [facility] [place] [address] * Magnesium (08/20/2024 5:13 AM CDT) Magnesium 2.0 1.4 - 2.5 mg/dL Blood 08/20/2024 5:13 AM CDT 08/20/2024 5:41 AM CDT us Arley Cheung MD LAB BLOOD ORDERABLES Final Result Performing Organization Address [facility] de Phone Number [facility] [place] [employer] [place] [address] * (ABNORMAL) Hepatic function panel (08/20/2024 5:13 AM CDT) Bilirubin, total <0.2 0.1 - 1.2 mg/dL Bilirubin, direct <0.2 0.1 - 0.3 mg/dL [facility] Protein, pl 6.7 6.5 - 8.5 g/dL [facility] Albumin 3.4(L) 3.5 - 5.0 g/dL [facility] Alk phos 87 40 - 130 Units/L [facility] ALT 13 7 - 55 Units/L [facility] AST 17 10 - 50 Units/L [facility] Blood 08/20/2024 5:13 AM CDT 08/20/2024 5:41 AM CDT us Arley Cheung MD LAB BLOOD ORDERABLES Final Result Performing Organization Address City/[facility] Co de Phone Number [facility] [employer] [place] [address] * (ABNORMAL) Basic metabolic panel (08/20/2024 5:13 AM CDT) Sodium 141 135 - 145 mmol/L Potassium, pl 4.4 3.3 - 4.9 mmol/L [facility] Chloride 105 97 - 110 mmol/L [facility] CO2 26 22 - 32 mmol/L [facility] Anion gap 10 2 - 15 mmol/L [facility] BUN 4(L) 6 - 25 mg/dL [facility] Creatinine 0.80 0.80 - 1.30 mg/dL [facility] Glucose 98 70 - 199 mg/dL [facility] Comment: Interpretive Data Fasting glucose >/= 126 [...] 2022. Calcium 9.5 8.5 - 10.3 mg/dL [facility] Blood 08/20/2024 5:13 AM CDT 08/20/2024 5:41 AM CDT us Arley Cheung MD LAB BLOOD ORDERABLES Final Result [facility] [place] [address] * POCT glucose (08/20/2024 3:12 AM CDT) Glucose, POC 110 70 - 199 mg/dL Blood 08/20/2024 3:12 AM CDT 08/20/2024 3:12 AM CDT us Arley Cheung MD LAB POCT ORDERABLES - DEVIC E Final Result Performing Organization Address [facility] Co de Phone Number [facility] [place] [address] * POCT glucose (08/20/2024 1:38 AM CDT) Glucose, POC 166 70 - 199 mg/dL Blood 08/20/2024 1:38 AM CDT 08/20/2024 1:38 AM CDT us Arley Cheung MD LAB POCT ORDERABLES - DEVIC E Final Result Performing Organization Address [facility] de Phone Number [facility] [place] [address] * (ABNORMAL) POCT glucose (08/19/2024 11:45 PM CDT) Glucose, POC 210(H) 70 - 199 mg/dL Blood 08/19/2024 11:4 5 PM CDT 08/19/2024 11:45 PM CDT us Arley Cheung MD LAB POCT ORDERABLES - DEVIC E Final Result Performing Organization Address [facility] Co de Phone Number [facility] [place] [address] * POCT glucose (08/19/2024 10:24 PM CDT) Glucose, POC 112 70 - 199 mg/dL Blood 08/19/2024 10:2 4 PM CDT 08/19/2024 10:24 PM CDT us Arley Cheung MD LAB POCT ORDERABLES - DEVIC E Final Result Performing Organization Address [facility] [place] [address] * POCT glucose (08/19/2024 9:55 PM CDT) Glucose, POC 100 70 - 199 mg/dL Blood 08/19/2024 9:55 PM CDT 08/19/2024 9:55 PM CDT Arley Cheung MD LAB POCT ORDERABLES - DEVIC E Final Result Performing Organization Address [facility] [place] [address] * (ABNORMAL) POCT glucose (08/19/2024 8:07 PM CDT) Glucose, POC 376(H) 70 - 199 mg/dL Blood 08/19/2024 8:07 PM CDT 08/19/2024 8:07 PM CDT Arley Cheung MD LAB POCT ORDERABLES - DEVIC E Final Result Performing Organization Address [facility] [place] [address] * (ABNORMAL) POCT glucose (08/19/2024 7:24 PM CDT) Glucose, POC 325(H) 70 - 199 mg/dL Blood 08/19/2024 7:24 PM CDT 08/19/2024 7:24 PM CDT Arley Cheung MD LAB POCT ORDERABLES - DEVIC E Final Result Performing Organization Address [facility] [place] [address] * eGFR (08/18/2024 10:25 PM CDT) [facility] eGFR >90 >=60 mL/min/1. 73 m2 Comment: [...] 5 PM CDT 08/18/2024 10:47 PM CDT us Arley Cheung MD LAB BLOOD ORDERABLES Final Result [facility] [place] [address] * (ABNORMAL) Differential, auto (08/18/2024 10:25 PM CDT) [facility] Neutrophil abs 3.7 1.5 - 6.5 K/cumm Imm gran abs 0.0 0.0 - 0.1 K/cumm [facility] Lymphocyte abs 2.0 0.8 - 3.3 K/cumm [facility] Monocyte abs 0.9(H) 0.2 - 0.8 K/cumm [facility] Eosinophil abs 0.3 0.0 - 0.5 K/cumm [facility] Basophil abs 0.1 0.0 - 0.1 K/cumm [facility] Neutrophil pct 52.6 % [facility] Comment: Interpretive Data Percent cell count reference ranges are not reported, since discordance with absolute values may lead to misinterpretation of CBC data. Current Interpretive Data was last revised on 2017. Imm gran pct 0.3 % [facility] Comment: Interpretive Data Percent cell count reference ranges are not reported, since discordance with absolute values may lead to misinterpretation of CBC data. Current Interpretive Data was last revised on 2017. Lymphocyte pct 29.0 % [facility] Comment: Interpretive Data Percent cell count reference ranges are not reported, since discordance with absolute values may lead to misinterpretation of CBC data. Current Interpretive Data was last revised on 2017. Monocyte pct 12.8 % [facility] Comment: Interpretive Data Percent cell count reference ranges are not reported, since discordance with absolute values may lead to misinterpretation of CBC data. Current Interpretive Data was last revised on 2017. Eosinophil pct 4.0 % [facility] Comment: Interpretive Data Percent cell count reference ranges are not reported, since discordance with absolute values may lead to misinterpretation of CBC data. Current Interpretive Data was last revised on 2017. Basophil pct 1.3 % [facility] Comment: Interpretive Data Percent cell count reference ranges are not reported, since discordance with absolute values may lead to misinterpretation of CBC data. Current Interpretive Data was last revised on 2017. Blood 08/18/2024 10:2 5 PM CDT 08/18/2024 10:49 PM CDT Arley Cheung MD LAB BLOOD ORDERABLES Final Result [facility] [place] [address] * (ABNORMAL) CBC with auto differential (08/18/2024 10:25 PM CDT) WBC 6.9 3.8 - 9.9 K/cumm Hgb 10.6(L) 13.0 - 17.5 g/dL [facility] Hct 32.5(L) 38.9 - 50.3 % [facility] Plt 700(H) 150 - 400 K/cumm [facility] MPV 8.7(L) 9.1 - 12.3 fL [facility] RBC 3.60(L) 4.30 - 5.80 M/cumm [facility] MCV 90.3 81.3 - 96.4 fL [facility] MCH 29.4 27.1 - 33.3 pg [facility] MCHC 32.6 32.3 - 35.7 g/dL [facility] RDW CV 17.6(H) 11.1 - 14.9 % [facility] RDW SD 57.7(H) 35.7 - 48.1 fL [facility] NRBC abs 0.00 0.00 - 0.01 K/cumm [facility] Blood 08/18/2024 10:2 5 PM CDT 08/18/2024 10:49 PM CDT Arley Cheung MD LAB BLOOD ORDERABLES Final Result [facility] [place] [address] * Phosphorus (08/18/2024 10:25 PM CDT) Pathologist [facility] Phosphorus, pl 3.3 2.3 - 4.5 mg/dL Blood 08/18/2024 10:2 5 PM CDT 08/18/2024 10:47 PM CDT Arley Cheung MD LAB BLOOD ORDERABLES Final Result [facility] [place] [address] * Magnesium (08/18/2024 10:25 PM CDT) Pathologist [facility] Magnesium 1.9 1.4 - 2.5 mg/dL Blood 08/18/2024 10:2 5 PM CDT 08/18/2024 10:47 PM CDT Arley Cheung MD LAB BLOOD ORDERABLES Final Result Performing Organization Address [facility] Co de Phone Number [facility] [place] [address] * Hepatic function panel (08/18/2024 10:25 PM CDT) [facility] Bilirubin, total <0.2 0.1 - 1.2 mg/dL Bilirubin, direct <0.2 0.1 - 0.3 mg/dL [facility] Protein, pl 7.1 6.5 - 8.5 g/dL [facility] Albumin 3.5 3.5 - 5.0 g/dL [facility] Alk phos 98 40 - 130 Units/L [facility] ALT 12 7 - 55 Units/L [facility] AST 17 10 - 50 Units/L [facility] Blood 08/18/2024 10:2 5 PM CDT 08/18/2024 10:47 PM CDT Arley Cheung MD LAB BLOOD ORDERABLES Final Result Performing Organization Address [facility] Co de Phone Number [facility] Department [place] [address] * (ABNORMAL) Basic metabolic panel (08/18/2024 10:25 PM CDT) [facility] Sodium 144 135 - 145 mmol/L Potassium, pl 4.3 3.3 - 4.9 mmol/L [facility] Chloride 105 97 - 110 mmol/L [facility] CO2 30 22 - 32 mmol/L [facility] Anion gap 9 2 - 15 mmol/L [facility] BUN 3(L) 6 - 25 mg/dL [facility] Creatinine 0.72(L) 0.80 - 1.30 mg/dL [facility] Glucose 109 70 - 199 mg/dL [facility] Comment: Interpretive Data Fasting glucose >/= 126 [...] 2022. Calcium 9.6 8.5 - 10.3 mg/dL [facility] Blood 08/18/2024 10:2 5 PM CDT 08/18/2024 10:47 PM CDT us Arley Cheung MD LAB BLOOD ORDERABLES Final Result [facility] [place] [address] * eGFR (08/17/2024 8:00 PM CDT) eGFR >90 >=60 mL/min/1. 73 [...] MD LAB BLOOD ORDERABLES Final Result [facility] [place] [address] * (ABNORMAL) Differential, auto (08/17/2024 8:00 PM CDT) Neutrophil abs 6.5 1.5 - 6.5 K/cumm Imm gran abs 0.0 0.0 - 0.1 K/cumm [facility] Lymphocyte abs 1.3 0.8 - 3.3 K/cumm [facility] Monocyte abs 0.9(H) 0.2 - 0.8 K/cumm [facility] Eosinophil abs 0.2 0.0 - 0.5 K/cumm [facility] Basophil abs 0.1 0.0 - 0.1 K/cumm [facility] Neutrophil pct 71.5 % [facility] Comment: Interpretive Data Percent cell count reference ranges are not reported, since discordance with absolute values may lead to misinterpretation of CBC data. Current Interpretive Data was last revised on 2017. Imm gran pct 0.3 % [facility] Comment: Interpretive Data Percent cell count reference ranges are not reported, since discordance with absolute values may lead to misinterpretation of CBC data. Current Interpretive Data was last revised on 2017. Lymphocyte pct 14.5 % [facility] Comment: Interpretive Data Percent cell count reference ranges are not reported, since discordance with absolute values may lead to misinterpretation of CBC data. Current Interpretive Data was last revised on 2017. Monocyte pct 10.2 % [facility] Comment: Interpretive Data Percent cell count reference ranges are not reported, since discordance with absolute values may lead to misinterpretation of CBC data. Current Interpretive Data was last revised on 2017. Eosinophil pct 2.6 % [facility] Comment: Interpretive Data Percent cell count reference ranges are not reported, since discordance with absolute values may lead to misinterpretation of CBC data. Current Interpretive Data was last revised on 2017. Basophil pct 0.9 % [facility] Comment: Interpretive Data Percent cell count reference ranges are not reported, since discordance with absolute values may lead to misinterpretation of CBC data. Current Interpretive Data was last revised on 2017. Blood 08/17/2024 8:00 PM CDT 08/17/2024 8:22 PM CDT Arley Cheung MD LAB BLOOD ORDERABLES Final Result Performing Organization Address [facility] Co de Phone Number [facility] [place] [address] * (ABNORMAL) CBC with auto differential (08/17/2024 8:00 PM CDT) WBC 9.1 3.8 - 9.9 K/cumm Hgb 9.8(L) 13.0 - 17.5 g/dL [facility] Hct 29.8(L) 38.9 - 50.3 % [facility] Plt 670(H) 150 - 400 K/cumm [facility] MPV 8.9(L) 9.1 - 12.3 fL [facility] RBC 3.32(L) 4.30 - 5.80 M/cumm [facility] MCV 89.8 81.3 - 96.4 fL [facility] MCH 29.5 27.1 - 33.3 pg [facility] MCHC 32.9 32.3 - 35.7 g/dL [facility] RDW CV 17.4(H) 11.1 - 14.9 % [facility] RDW SD 57.1(H) 35.7 - 48.1 fL [facility] NRBC abs 0.00 0.00 - 0.01 K/cumm [facility] Blood 08/17/2024 8:00 PM CDT 08/17/2024 8:22 PM CDT Arley Cheung MD LAB BLOOD ORDERABLES Final Result Performing Organization Address [facility] Co de Phone Number [facility] [place] [address] * (ABNORMAL) Phosphorus (08/17/2024 8:00 PM CDT) Pathologist [facility] Phosphorus, pl 2.2(L) 2.3 - 4.5 mg/dL Blood 08/17/2024 8:00 PM CDT 08/17/2024 8:22 PM CDT Arley Cheung MD LAB [place] [address] * Magnesium (08/17/2024 8:00 PM CDT) [facility] Magnesium 1.8 1.4 - 2.5 mg/dL Blood 08/17/2024 8:00 PM CDT 08/17/2024 8:22 PM CDT Arley Cheung MD LAB BLOOD ORDERABLES Final Result Performing Organization Address [facility] Co de Phone Number [facility] [place] [address] * (ABNORMAL) Hepatic function panel (08/17/2024 8:00 PM CDT) [facility] Bilirubin, total <0.2 0.1 - 1.2 mg/dL Bilirubin, direct <0.2 0.1 - 0.3 mg/dL [facility] Protein, pl 6.7 6.5 - 8.5 g/dL [facility] Albumin 3.3(L) 3.5 - 5.0 g/dL [facility] Alk phos 106 40 - 130 Units/L [facility] ALT 13 7 - 55 Units/L [facility] AST 17 10 - 50 Units/L [facility] Blood 08/17/2024 8:00 PM CDT 08/17/2024 8:22 PM CDT Arley Cheung MD LAB BLOOD ORDERABLES Final Result [facility] [place] [address] * (ABNORMAL) Basic metabolic panel (08/17/2024 8:00 PM CDT) Sodium 142 135 - 145 mmol/L Potassium, pl 3.7 3.3 - 4.9 mmol/L [facility] Chloride 106 97 - 110 mmol/L [facility] CO2 25 22 - 32 mmol/L [facility] Anion gap 11 2 - 15 mmol/L [facility] BUN 6 6 - 25 mg/dL [facility] Creatinine 0.74(L) 0.80 - 1.30 mg/dL [facility] Glucose 143 70 - 199 mg/dL [facility] Comment: Interpretive Data Fasting glucose >/= 126 [...] 2022. Calcium 9.3 8.5 - 10.3 mg/dL [facility] Blood 08/17/2024 8:00 PM CDT 08/17/2024 8:22 PM CDT Arley Cheung MD LAB BLOOD ORDERABLES Final Result Performing Organization Address [facility]/ZIP Co de Phone Number [facility] [place] [address] * Blood culture Blood (08/17/2024 12:12 PM CDT) Report Final Report: No growth Blood 08/17/2024 12:1 2 PM CDT 08/17/2024 12:29 PM CDT Narrative [facility] - 08/21/2024 4:00 PM CDT From a [...] performance characteristics have been verified by the [facility] Microbiology Laboratory. For questions about this culture, contact the Microbiology Laboratory at [phone]. Interpretive data was last revised on 24. Melecio Michelle MD LAB MICROBIOLOGY - GEN ERAL ORDERABLES Final Result [facility] [place] [address] * Blood culture Blood (08/17/2024 12:12 PM CDT) Report Final Report: No growth Blood 08/17/2024 12:1 2 PM CDT 08/17/2024 12:29 PM CDT Narrative [facility] - 08/21/2024 4:00 PM CDT Collection->Peripheral 1. [...] performance characteristics have been verified by the [facility] Microbiology Laboratory. For questions about this culture, contact the Microbiology Laboratory at [phone]. Interpretive data was last revised on 24. Melecio Michelle MD LAB MICROBIOLOGY - GEN ERAL ORDERABLES Final Result [facility] [place] [address] * C. difficile testing Stool (08/17/2024 10:50 AM CDT) [facility] Result Negative Negative Toxin Result Negative Negative [facility] C. diff result Negative, free toxin Negative, free toxin [facility] C. diff interp Negative for toxigenic Clostridioides (Clostridium) difficile. Analysis was performed using a glutamate dehydrogenase antigen detection assay combined with a C. difficile toxin detection assay. [facility] Stool 08/17/2024 10:5 0 AM CDT 08/17/2024 11:00 AM CDT Narrative [facility] - 08/17/2024 11:31 AM CDT Testing for C. difficile is not recommended within 4 days of a negative result, 10 days of a positive, or 24 hours after laxative administration. If this order is clinically indicated, contact the lab and enter the passcode to complete this order.->[id number] Arley Cheung MD LAB MICROBIOLOGY - GENERAL ORDERABLES Final Result Performing Organization Address [facility] de Phone Number [facility] [place] [address] * eGFR (08/16/2024 11:14 PM CDT) Pathologist [facility] eGFR >90 >=60 mL/min/1. 73 m2 Comment: [...] BLOOD ORDERABLES Final Result Performing Organization Address City/[facility] Co de Phone Number [facility] [place] [address] * Differential, auto (08/16/2024 11:14 PM CDT) Pathologist [facility] Neutrophil abs 2.8 1.5 - 6.5 K/cumm Imm gran abs 0.0 0.0 - 0.1 K/cumm [facility] Lymphocyte abs 1.1 0.8 - 3.3 K/cumm [facility] Monocyte abs 0.8 0.2 - 0.8 K/cumm [facility] Eosinophil abs 0.3 0.0 - 0.5 K/cumm [facility] Basophil abs 0.1 0.0 - 0.1 K/cumm [facility] Neutrophil pct 53.8 % [facility] Comment: Interpretive Data Percent cell count reference ranges are not reported, since discordance with absolute values may lead to misinterpretation of CBC data. Current Interpretive Data was last revised on 2017. Imm gran pct 0.4 % [facility] Comment: Interpretive Data Percent cell count reference ranges are not reported, since discordance with absolute values may lead to misinterpretation of CBC data. Current Interpretive Data was last revised on 2017. Lymphocyte pct 22.2 % [facility] Comment: Interpretive Data Percent cell count reference ranges are not reported, since discordance with absolute values may lead to misinterpretation of CBC data. Current Interpretive Data was last revised on 2017. Monocyte pct 15.7 % [facility] Comment: Interpretive Data Percent cell count reference ranges are not reported, since discordance with absolute values may lead to misinterpretation of CBC data. Current Interpretive Data was last revised on 2017. Eosinophil pct 5.9 % [facility] Comment: Interpretive Data Percent cell count reference ranges are not reported, since discordance with absolute values may lead to misinterpretation of CBC data. Current Interpretive Data was last revised on 2017. Basophil pct 2.0 % [facility] Comment: Interpretive Data Percent cell count reference ranges are not reported, since discordance with absolute values may lead to misinterpretation of CBC data. Current Interpretive Data was last revised on 2017. Blood 08/16/2024 11:1 4 PM CDT 08/17/2024 1:03 AM CDT us Arley Cheung MD LAB BLOOD ORDERABLES Final Result [facility] [place] [address] * (ABNORMAL) CBC with auto differential (08/16/2024 11:14 PM CDT) Pathologist [facility] WBC 5.1 3.8 - 9.9 K/cumm Hgb 10.0(L) 13.0 - 17.5 g/dL [facility] Hct 30.6(L) 38.9 - 50.3 % [facility] Plt 702(H) 150 - 400 K/cumm [facility] MPV 9.0(L) 9.1 - 12.3 fL [facility] RBC 3.36(L) 4.30 - 5.80 M/cumm [facility] MCV 91.1 81.3 - 96.4 fL [facility] MCH 29.8 27.1 - 33.3 pg [facility] MCHC 32.7 32.3 - 35.7 g/dL [facility] RDW CV 17.5(H) 11.1 - 14.9 % [facility] RDW SD 58.3(H) 35.7 - 48.1 fL [facility] NRBC abs 0.00 0.00 - 0.01 K/cumm [facility] Blood 08/16/2024 11:1 4 PM CDT 08/17/2024 1:03 AM CDT Arley Cheung MD LAB BLOOD ORDERABLES Final Result Performing Organization Address City/[facility] Co de Phone Number [facility] [place] [employer] [place] [address] * Phosphorus (08/16/2024 11:14 PM CDT) Pathologist [facility] Phosphorus, pl 2.5 2.3 - 4.5 mg/dL Blood 08/16/2024 11:1 4 PM CDT 08/17/2024 1:03 AM CDT Arley Cheung MD LAB BLOOD ORDERABLES Final Result [facility] Department [place] [employer] [place] [address] * Magnesium (08/16/2024 11:14 PM CDT) [facility] Magnesium 2.0 1.4 - 2.5 mg/dL Blood 08/16/2024 11:1 4 PM CDT 08/17/2024 1:03 AM CDT Arley Cheung MD LAB BLOOD ORDERABLES Final Result [facility] [place] [address] * (ABNORMAL) Hepatic function panel (08/16/2024 11:14 PM CDT) [facility] Bilirubin, total <0.2 0.1 - 1.2 mg/dL Comment:Reviewed Bilirubin, direct <0.2 0.1 - 0.3 mg/dL [facility] Protein, pl 6.6 6.5 - 8.5 g/dL [facility] Albumin 3.2(L) 3.5 - 5.0 g/dL [facility] Alk phos 111 40 - 130 Units/L [facility] ALT 12 7 - 55 Units/L [facility] AST 28 10 - 50 Units/L [facility] Blood 08/16/2024 11:1 4 PM CDT 08/17/2024 1:03 AM CDT Arley Cheung MD LAB [place] [address] * Basic metabolic panel (08/16/2024 11:14 PM CDT) [facility] Sodium 140 135 - 145 mmol/L Potassium, pl 3.8 3.3 - 4.9 mmol/L [facility] Chloride 106 97 - 110 mmol/L [facility] CO2 23 22 - 32 mmol/L [facility] Anion gap 11 2 - 15 mmol/L [facility] BUN 6 6 - 25 mg/dL [facility] Creatinine 0.81 0.80 - 1.30 mg/dL [facility] Glucose 188 70 - 199 mg/dL [facility] Comment: Interpretive Data Fasting glucose >/= 126 [...] 2022. Calcium 8.9 8.5 - 10.3 mg/dL [facility] Blood 08/16/2024 11:1 4 PM CDT 08/17/2024 1:03 AM CDT us Arley Cheung MD LAB BLOOD ORDERABLES Final Result Performing Organization Address [facility]/ZIP Co de Phone Number [facility] [place] [address] * XR Outside Reference (08/16/2024 7:30 PM CDT) Impressions RAD_PAC_[facility] - 08/16/2024 7:30 PM CDT These images are for Reference purposes only and have not been reviewed by [facility] Radiology. There will be no report generated by a [facility] Radiologist. Narrative RAD_PACS_[facility] - 08/16/2024 7:30 PM CDT EXAMINATION: Images For Reference Purposes Only Melecio Michelle MD IMG XR PROCEDURES Maisha l Result Performing Organization Address City/[facility]/ZIP Co de Phone Number [email or web address] * MR [...] images may or may not represent the [place] data set and thus may contain [...] IMAGING STUDY STUDY INITIALLY PERFORMED: 08/09/2024 at [facility]. TYPE OF STUDY: Multiple MRI/MRCP [...] IMAGING STUDY STUDY INITIALLY PERFORMED: 08/09/2024 at [facility]. TYPE OF STUDY: Multiple MRI/MRCP [...] images may or may not represent the [place] source data set and thus may contain changes that may lower the accuracy of this second-opinion interpretation. Dictated by: Garrison Jiang M.D. The radiology attending physician has personally reviewed this study, and had reviewed and/or edited this written report and agrees with it. Electronically signed by: Yumiko Wilson M.D. Melecio Michelle MD [facility] [place] MRI PROCEDURES Fin al Result * XR Outside Reference (08/16/2024 6:01 PM CDT) Impressions [email or web address] - 08/16/2024 6:01 PM CDT These images are for Reference purposes only and have not been reviewed by [facility] Radiology. There will be no report generated by a [facility] Radiologist. Narrative [email or web address]_[facility] - 08/16/2024 6:01 PM CDT EXAMINATION: Images For Reference Purposes Only Melecio Michelle MD [facility] [place] XR PROCEDURES Maisha l Result [email or web address] * XR Outside Reference (08/16/2024 6:00 PM CDT) Impressions [email or web address] - 08/16/2024 6:00 PM CDT These images are for Reference purposes only and have not been reviewed by [facility] Radiology. There will be no report generated by a [facility] Radiologist. Narrative [facility]ACS[facility] - 08/16/2024 6:00 PM CDT EXAMINATION: Images For Reference Purposes Only Melecio Michelle MD IMG XR PROCEDURES Maisha l Result [facility] * CT Body Outside Consult (08/16/2024 [...] report of this study generated by a [facility] Radiologist. Electronically signed by: Evelin Cho M.D. [...] report of this study generated by a [facility] Radiologist. Electronically signed by: Evelin Cho M.D. Melecio Michelle MD IMG CT PROCEDURES Maisha l Result * Infection Prevention Lanny auris PCR, surveillance Axilla/Groin (08/16/2024 2:02 PM CDT) Lanny auris DNA Not Detected Not Detected [facility] Comment: Interpretive Data Testing performed by [facility] Molecular Infectious Disease Laboratory using the [employer] johnny [id number] Lanny auris assay. This assay detects DNA from Lanny auris using Real-Time PCR. This assay is laboratory developed and is not cleared by the [place] Food and Drug Administration. The performance characteristics have been verified by the [facility] Molecular Infectious Disease Laboratory. Axilla/Groin 08/16/2024 2:02 PM CDT 08/16/2024 2:36 PM CDT us Michael Claudio MD LAB MICROBIOLOGY - GENERAL ORDER DELIO Final Result [place] [facility] [place] [address] [facility] * CT Chest Abdomen Pelvis W Contrast [...] by: Ever Alcala M.D. Arley Cheung MD IMG CT PROCEDURES Final Res ult * C. difficile testing Stool (08/16/2024 10:31 AM CDT) Pathologist [facility] Result Negative Negative Toxin Result Negative Negative [facility] C. diff result Negative, free toxin Negative, free toxin [facility] C. diff interp Negative for toxigenic Clostridioides (Clostridium) difficile. Analysis was performed using a glutamate dehydrogenase antigen detection assay combined with a C. difficile toxin detection assay. [facility] Stool 08/16/2024 10:3 1 AM CDT 08/16/2024 12:41 PM CDT Arley Cheung MD LAB MICROBIOLOGY - GENERAL ORDERABLES Final Result [facility] [place] [address] * Calprotectin, fecal (08/16/2024 10:31 AM CDT) [facility] Calprotectin, fecal <50.0 <50.0 (Normal) mcg/g [facility] Comment: Test Performed by: Formerly Named [facility] [address] [place] [address] Eligibility Services Representative: Rubio Michel Ph.D.; CLIA# [id number] Stool 08/16/2024 10:3 1 AM CDT 08/16/2024 1:01 PM CDT Arley Cheung MD LAB BODY FLUIDS AND STOOLS ORDERABLES Final Result Performing Organization Address [facility] Co de Phone Number SANT[facility]AGO [facility] [place] [address] [facility] * Norovirus PCR Stool (08/16/2024 10:31 AM CDT) Pathologist [facility] Norovirus GI RNA Not Detected Not Detected [facility] Norovirus GII RNA Not Detected Not Detected [facility] Comment: Interpretive data: Testing performed at the [facility] Laboratory using the [employer] Xpert Norovirus Assay. This assay uses nucleic [...] LAB MICROBIOLOGY - GENERAL ORDERABLES Final Result [facility] [place] [address] [facility] * Stool culture Stool Rectum (08/16/2024 10:31 AM CDT) Pathologist [facility] Direct Specimen Exam Shiga Toxin Testing: Antigen detection assay for Shiga-toxin NEGATIVE for Shiga Toxin 1 and Shiga Toxin 2. Report Final Report: No growth of enteric bacterial pathogens [facility] Stool (Rectum) 08/16/2024 10 :31 AM CDT 08/16/2024 12:41 PM CDT Narrative [facility] - 08/20/2024 8:30 AM CDT Testing performed by [facility] Microbiology Laboratory ([phone]). Routine stool cultures include procedures to detect Salmonella, Shigella, Edwardsiella, Aeromonas, Pleisiomonas, Campylobacter, Yersinia, E. coli O157, and Shiga-like toxins. Vibrio is cultured only upon special request. If Vibrio is suspected, please call the laboratory at [phone]. Interpretive data was last updated October 03, 2016. Arley Cheung MD LAB MICROBIOLOGY - GENERAL ORDERABLES Final Result Performing Organization Address City/[facility]/ZIP Co de Phone Number [facility] Department [place] [employer] [place] [address] * Infection Prevention VRE Culture Stool (08/16/2024 10:27 AM CDT) Report Final Report: Negative Stool 08/16/2024 10:2 7 AM CDT 08/16/2024 2:55 PM CDT Narrative [facility] - 08/18/2024 6:13 PM CDT Surveillance culture for Infection Prevention purposes only; results indicate colonization, not infection requiring treatment. Testing performed by [facility] Microbiology Laboratory ([phone]). Arley Cheung MD LAB MICROBIOLOGY - GENERAL ORDERABLES Final Result [facility] Department [place] [employer] [place] [address] * Differential, auto (08/16/2024 5:16 AM CDT) Neutrophil abs 4.5 1.5 - 6.5 K/cumm Imm gran abs 0.0 0.0 - 0.1 K/cumm [facility] Lymphocyte abs 1.1 0.8 - 3.3 K/cumm [facility] Monocyte abs 0.7 0.2 - 0.8 K/cumm [facility] Eosinophil abs 0.1 0.0 - 0.5 K/cumm [facility] Basophil abs 0.1 0.0 - 0.1 K/cumm [facility] Neutrophil pct 68.8 % [facility] Comment: Interpretive Data Percent cell count reference ranges are not reported, since discordance with absolute values may lead to misinterpretation of CBC data. Current Interpretive Data was last revised on 2017. Imm gran pct 0.5 % [facility] Comment: Interpretive Data Percent cell count reference ranges are not reported, since discordance with absolute values may lead to misinterpretation of CBC data. Current Interpretive Data was last revised on 2017. Lymphocyte pct 16.7 % [facility] Comment: Interpretive Data Percent cell count reference ranges are not reported, since discordance with absolute values may lead to misinterpretation of CBC data. Current Interpretive Data was last revised on 2017. Monocyte pct 10.5 % [facility] Comment: Interpretive Data Percent cell count reference ranges are not reported, since discordance with absolute values may lead to misinterpretation of CBC data. Current Interpretive Data was last revised on 2017. Eosinophil pct 1.7 % [facility] Comment: Interpretive Data Percent cell count reference ranges are not reported, since discordance with absolute values may lead to misinterpretation of CBC data. Current Interpretive Data was last revised on 2017. Basophil pct 1.8 % [facility] Comment: Interpretive Data Percent cell count reference ranges are not reported, since discordance with absolute values may lead to misinterpretation of CBC data. Current Interpretive Data was last revised on 2017. Blood 08/16/2024 5:16 AM CDT 08/16/2024 5:50 AM CDT us John De Anda MD LAB BLOOD ORDERABLES Final Result [facility] [place] [address] * (ABNORMAL) Iron profile w/ IBC (08/16/2024 5:16 AM CDT) [facility] Iron 41(L) 50 - 150 mcg/dL TIBC 152(L) 250 - 400 mcg/dL [facility] Transferrin saturation 27 20 - 50 % [facility] Blood 08/16/2024 5:16 AM CDT 08/16/2024 5:50 AM CDT us Arley Cheung MD LAB BLOOD ORDERABLES Final Result [facility] [place] [address] * (ABNORMAL) CBC with auto differential (08/16/2024 5:16 AM CDT) [facility] WBC 6.6 3.8 - 9.9 K/cumm Hgb 10.1(L) 13.0 - 17.5 g/dL [facility] Hct 31.3(L) 38.9 - 50.3 % [facility] Plt 710(H) 150 - 400 K/cumm [facility] MPV 8.8(L) 9.1 - 12.3 fL [facility] RBC 3.44(L) 4.30 - 5.80 M/cumm [facility] MCV 91.0 81.3 - 96.4 fL [facility] MCH 29.4 27.1 - 33.3 pg [facility] MCHC 32.3 32.3 - 35.7 g/dL [facility] RDW CV 17.6(H) 11.1 - 14.9 % [facility] RDW SD 58.5(H) 35.7 - 48.1 fL [facility] NRBC abs 0.00 0.00 - 0.01 K/cumm [facility] Blood 08/16/2024 5:16 AM CDT 08/16/2024 5:50 AM CDT us John De Anda MD LAB BLOOD ORDERABLES Final Result [facility] [employer] [place] [address] * Phosphorus (08/16/2024 5:16 AM CDT) Phosphorus, pl 3.0 2.3 - 4.5 mg/dL Blood 08/16/2024 5:16 AM CDT 08/16/2024 5:50 AM CDT us John De Anda MD LAB BLOOD ORDERABLES Final Result Performing Organization Address City/[facility] Co de Phone Number [facility] [employer] [place] [address] * Magnesium (08/16/2024 5:16 AM CDT) Magnesium 2.1 1.4 - 2.5 mg/dL Blood 08/16/2024 5:16 AM CDT 08/16/2024 5:50 AM CDT John De Anda MD LAB BLOOD ORDERABLES Final Result Performing Organization Address City/[facility]/ZIP Co de Phone Number [facility] [place] [employer] [place] [address] * Folate (08/16/2024 5:16 AM CDT) Folic acid >20.0 >=5.0 ng/mL Blood 08/16/2024 5:16 AM CDT 08/16/2024 5:50 AM CDT us Arley Cheung MD LAB BLOOD ORDERABLES Final Result [facility] [place] [address] * (ABNORMAL) Ferritin (08/16/2024 5:16 AM CDT) Pathologist [facility] Ferritin 527(H) 30 - 400 ng/mL Blood 08/16/2024 5:16 AM CDT 08/16/2024 5:50 AM CDT us Arley Cheung MD LAB BLOOD ORDERABLES Final Result Performing Organization Address City/[facility]/ZIP Co de Phone Number [facility] [place] [address] * Vitamin B12 (08/16/2024 5:16 AM CDT) [facility] Vitamin B12 810 230 - 1,250 pg/mL Blood 08/16/2024 5:16 AM CDT 08/16/2024 5:50 AM CDT Arley Cheung MD LAB BLOOD ORDERABLES Final Result Performing Organization Address City/[facility] de Phone Number [facility] [place] [address] * (ABNORMAL) Hepatic function panel (08/16/2024 5:16 AM CDT) [facility] Bilirubin, total 0.2 0.1 - 1.2 mg/dL Comment:Reviewed Bilirubin, direct <0.2 0.1 - 0.3 mg/dL [facility] Protein, pl 6.7 6.5 - 8.5 g/dL [facility] Albumin 3.4(L) 3.5 - 5.0 g/dL [facility] Alk phos 122 40 - 130 Units/L [facility] ALT 11 7 - 55 Units/L [facility] AST 20 10 - 50 Units/L [facility] Blood 08/16/2024 5:16 AM CDT 08/16/2024 5:50 AM CDT Arley Cheung MD LAB BLOOD ORDERABLES Final Result [facility] [place] [address] * ECG 12 lead (08/16/2024 1:04 AM CDT) Ventricular Rate EKG/Min 104 BPM [facility] Atrial Rate 104 BPM [facility] VT-Interval (MSEC) 156 ms [facility] QRS-Interval (MSEC) 86 ms [facility] QT-Interval (MSEC) 352 ms [facility] QTc 462 ms [facility] P [address] 49 degrees [facility] R Lane -23 degrees [facility] T [address] 31 degrees [facility] Diagnosis Sinus tachycardia Otherwise normal ECG When compared with ECG of 24-SEP-2019 19:36, No significant change was found Confirmed by Dakotah Khan MD ([id number]) on 08/21/2024 2:38:38 PM [facility] 08/16/2024 1:04 AM CDT 08/21/2024 2:38 PM CDT us John De Anda MD ECG ORDERABLES Final Resul t Performing Organization Address [facility] Co de Phone Number [facility] * Urinalysis reflex to microscopic and culture Urine (08/16/2024 12:17 AM CDT) Color, ur Yellow Yellow Clarity, ur Clear Clear [facility] Specific gravity, ur 1.018 1.003 - 1.030 [facility] pH, urine 7.0 [facility] Comment: Interpretive Data U rine pH is affected by diet, medications, systemic acid-base disturbances, and renal tubular function. pH may affect urinary stone formation. For example, urine pH below 6.0 may help reduce the tendency for calcium phosphate stones and pH greater than 6.0 may reduce the tendency for uric acid stone formation. Source: [facility] [employer] Current Interpretive Data was last revised on 2017 Protein, ur ql Negative Negative [facility] Glucose, ur ql Negative Negative [facility] Ketones, ur Negative Negative [facility] Bilirubin, ur Negative Negative [facility] Blood, ur Negative Negative [facility] Urobilinogen, ur <2.0 <2.0 mg/dL [facility] Nitrite, ur Negative Negative [facility] Leukocyte esterase, ur Negative Negative [facility] UA reflex comment Reflex conditions for microscopic UA and culture not met. [facility] Urine 08/16/2024 12:1 7 AM CDT 08/16/2024 1:21 AM CDT us John De Anda MD LAB MICROBIOLOGY - GENERAL ORDERABLES Final Result [facility] [place] [address] * Respiratory pathogen panel Nasopharyngeal (08/16/2024 12:17 AM CDT) Pathologist [facility] Influenza A RNA Not Detected Not Detected Influenza B RNA Not Detected Not Detected [facility] RSV RNA Not Detected Not Detected [facility] COVID-19 RNA Not Detected Not Detected [facility] Coronavirus 229E RNA Not Detected Not Detected [facility] Coronavirus HKU1 RNA Not Detected Not Detected [facility] Coronavirus NL63 RNA Not Detected Not Detected [facility] Coronavirus OC43 RNA Not Detected Not Detected [facility] Adenovirus DNA Not Detected Not Detected [facility] Metapneumovirus RNA Not Detected Not Detected [facility] Rhinovirus/Enterov irus RNA Not Detected Not Detected [facility] Parainfluenza 1 RNA Not Detected Not Detected [facility] Parainfluenza 2 RNA Not Detected Not Detected [facility] Parainfluenza 3 RNA Not Detected Not Detected [facility] Parainfluenza 4 RNA Not Detected Not Detected [facility] B. pertussis DNA Not Detected Not Detected [facility] B. parapertussis DNA Not Detected Not Detected [facility] C. pneumoniae DNA Not Detected Not Detected [facility] M. pneumoniae DNA Not Detected Not Detected [facility] Nasopharyngeal 08/16/2024 12 :17 AM CDT 08/16/2024 1:27 AM CDT Narrative [facility] 08/16/2024 2:22 AM CDT Is the Patient experiencing symptoms consistent with COVID?->No Surveillance testing for transplant patient?->No Interpretive Data The [employer] Respiratory Panel (RP2.1) assay is a [...] assay has FDA clearance for testing of [employer] swabs. The performance of additional specimen types has been assessed by the performing laboratory. The performance characteristics of this assay have been determined by [facility] Molecular Infectious Disease Laboratory. Current interpretive data was last revised on 22. us Arley Cheung MD LAB MICROBIOLOGY - GENERAL ORDERABLES Final Result Performing Organization Address City/[facility] Co de Phone Number [facility] [place] [address] * eGFR (08/15/2024 11:28 PM CDT) Pathologist [facility] eGFR 87 >=60 mL/min/1. 73 m2 Comment: [...] BLOOD ORDERABLES Final Result Performing Organization Address City/[facility]/ZIP Co de Phone Number [facility] [place] [address] * (ABNORMAL) Differential, auto (08/15/2024 11:28 PM CDT) Pathologist [facility] Neutrophil abs 7.9(H) 1.5 - 6.5 K/cumm Imm gran abs 0.1 0.0 - 0.1 K/cumm [facility] Lymphocyte abs 0.6(L) 0.8 - 3.3 K/cumm [facility] Monocyte abs 0.7 0.2 - 0.8 K/cumm [facility] Eosinophil abs 0.1 0.0 - 0.5 K/cumm [facility] Basophil abs 0.1 0.0 - 0.1 K/cumm [facility] Neutrophil pct 84.3 % [facility] Comment: Interpretive Data Percent cell count reference ranges are not reported, since discordance with absolute values may lead to misinterpretation of CBC data. Current Interpretive Data was last revised on 2017. Imm gran pct 0.7 % [facility] Comment: Interpretive Data Percent cell count reference ranges are not reported, since discordance with absolute values may lead to misinterpretation of CBC data. Current Interpretive Data was last revised on 2017. Lymphocyte pct 6.1 % [facility] Comment: Interpretive Data Percent cell count reference ranges are not reported, since discordance with absolute values may lead to misinterpretation of CBC data. Current Interpretive Data was last revised on 2017. Monocyte pct 7.1 % [facility] Comment: Interpretive Data Percent cell count reference ranges are not reported, since discordance with absolute values may lead to misinterpretation of CBC data. Current Interpretive Data was last revised on 2017. Eosinophil pct 0.7 % [facility] Comment: Interpretive Data Percent cell count reference ranges are not reported, since discordance with absolute values may lead to misinterpretation of CBC data. Current Interpretive Data was last revised on 2017. Basophil pct 1.1 % [facility] Comment: Interpretive Data Percent cell count reference ranges are not reported, since discordance with absolute values may lead to misinterpretation of CBC data. Current Interpretive Data was last revised on 2017. Blood 08/15/2024 11:2 8 PM CDT 08/15/2024 11:31 PM CDT us John De Anda MD LAB BLOOD ORDERABLES Final Result [facility] [place] [address] * Thyroid Function Mason (08/15/2024 11:28 PM CDT) [facility] TSH 0.72 0.30 - 4.20 mcIUnit/mL Blood 08/15/2024 11:2 8 PM CDT 08/15/2024 11:31 PM CDT John De Anda MD LAB BLOOD ORDERABLES Final Result Performing Organization Address [facility] de Phone Number [facility] [place] [address] * HIV 1/2 Antibody plus p24 Antigen Blood (08/15/2024 11:28 PM CDT) [facility] HIV 1/2 ab + p24 ag Nonreactive [...] GENERAL ORDERABLES Final Result Performing Organization Address [facility] de Phone Number [facility] [place] [address] * (ABNORMAL) CBC with auto differential (08/15/2024 11:28 PM CDT) [facility] WBC 9.4 3.8 - 9.9 K/cumm Hgb 9.4(L) 13.0 - 17.5 g/dL [facility] Hct 28.3(L) 38.9 - 50.3 % [facility] Plt 654(H) 150 - 400 K/cumm [facility] MPV 8.8(L) 9.1 - 12.3 fL [facility] RBC 3.11(L) 4.30 - 5.80 M/cumm [facility] MCV 91.0 81.3 - 96.4 fL [facility] MCH 30.2 27.1 - 33.3 pg [facility] MCHC 33.2 32.3 - 35.7 g/dL [facility] RDW CV 17.7(H) 11.1 - 14.9 % [facility] RDW SD 59.1(H) 35.7 - 48.1 fL [facility] NRBC abs 0.00 0.00 - 0.01 K/cumm [facility] Blood 08/15/2024 11:2 8 PM CDT 08/15/2024 11:31 PM CDT John De Anda MD LAB BLOOD ORDERABLES Final Result Performing Organization Address [facility] Co de Phone Number [facility] Department [place] [employer] [place] [address] * Hepatitis C antibody Blood (08/15/2024 11:28 PM CDT) Pathologist [facility] Hep C Ab Nonreactive Nonreactive Comment:Antibodies to HCV no t detected. Does NOT exclude the possibility of recent exposure to HCV. Current interpretive data was last revised on 22 Blood 08/15/2024 11:2 8 PM CDT 08/15/2024 11:33 PM CDT John De Anda MD LAB MICROBIOLOGY - GENERAL ORDERABLES Final Result [facility] [place] [employer] [place] [address] * RPR Blood (08/15/2024 11:28 PM CDT) [facility] Nonreactive Nonreactive Blood 08/15/2024 11:2 8 PM CDT 08/15/2024 11:31 PM CDT John De Anda MD LAB MICROBIOLOGY - GENERAL ORDERABLES Final Result Performing Organization Address [facility] [place] [address] * Hepatitis B Surface Antigen Blood (08/15/2024 11:28 PM CDT) HepBsAg Nonreactive Nonreactive Blood 08/15/2024 11:2 8 PM CDT 08/15/2024 11:33 PM CDT John De Anda MD LAB MICROBIOLOGY - GENERAL ORDERABLES Final Result Performing Organization Address [facility] [place] [address] * aPTT (08/15/2024 11:28 PM CDT) aPTT [...] BLOOD ORDERABLES Final Result Performing Organization Address [facility] de Phone Number [facility] [place] [employer] [place] [address] * Protime-INR (08/15/2024 11:28 PM CDT) PT 12.6 9.7 - 13.0 sec INR 1.16 0.90 - 1.20 [facility] Comment: Interpretive data Oral anticoagulant therapeutic ranges: Venous thromboembolism prophylaxis or treatment: 2.0-3.0 CARDIOLOGY Standard range: 2.0-3.0 High-intensity range: 2.5-3.5 Refer to indication-specific guidelines for appropriate target ranges for prosthetic heart valve replacement. Current interpretive data was last revised on 2019. Blood 08/15/2024 11:2 8 PM CDT 08/15/2024 11:35 PM CDT John De Anda MD LAB BLOOD ORDERABLES Final Result Performing Organization Address City/[facility]/ZIP Co de Phone Number [facility] [place] [employer] [place] [address] * Type and screen (08/15/2024 11:28 PM CDT) Pathologist [facility] ABO Rh O Positive Prince, indirect Negative [facility] Blood 08/15/2024 11:2 8 PM CDT 08/15/2024 11:36 PM CDT Narrative [facility] - 08/16/2024 12:23 AM CDT Has the patient had Daratumumab or Isatuximab in the past 6 months?->Unknown John De Anda MD LAB BLOOD BANK TEST ORDERAB LES Final Result Performing Organization Address [facility] [place] [address] * (ABNORMAL) Phosphorus (08/15/2024 11:28 PM CDT) Pathologist [facility] Phosphorus, pl 2.0(L) 2.3 - 4.5 mg/dL Blood 08/15/2024 11:2 8 PM CDT 08/15/2024 11:32 PM CDT John De Anda MD LAB BLOOD ORDERABLES Final Result Performing Organization Address [facility] Co de Phone Number [facility] [place] [address] * Magnesium (08/15/2024 11:28 PM CDT) Pathologist [facility] Magnesium 1.8 1.4 - 2.5 mg/dL Blood 08/15/2024 11:2 8 PM CDT 08/15/2024 11:32 PM CDT Result [facility] John De Anda MD LAB BLOOD ORDERABLES Final Result Performing Organization Address [facility] de Phone Number [facility] [place] [employer] [place] [address] * Lipase (08/15/2024 11:28 PM CDT) [facility] Lipase 24 10 - 99 Units/L Blood 08/15/2024 11:2 8 PM CDT 08/15/2024 11:31 PM CDT Result [facility] John De Anda MD LAB BLOOD ORDERABLES Final Result Performing Organization Address [facility] de Phone Number [facility] [place] [place] [address] * Hemoglobin A1c (08/15/2024 11:28 PM CDT) [facility] Hgb A1C 5.2 4.0 - 5.6 % Estimated Average Glucose 103 mg/dL [facility] Comment: The ADA recommends reporting an estimated Average Glucose (eAG) with all Hemoglobin A1c results using the equation derived from a study of 507 normal and diabetic adults. Minority populations were underrepresented and children were not included. (Diabetes Care 2020; 43(S1): S66-S76). The eAG is not equivalent to a fasting glucose. Blood 08/15/2024 11:2 8 PM CDT 08/15/2024 11:32 PM CDT Result [facility] John De Anda MD LAB BLOOD ORDERABLES Final Result Performing Organization Address [facility] Co de Phone Number [facility] [place] [address] * (ABNORMAL) Lipid panel (08/15/2024 11:28 PM [...] revised on 2018. Triglycerides 93 <=149 mg/dL [facility] Comment: Interpretive Data Ages < or [...] Pediatrics 2011;128:S213 2. NCEP Expert Panel. Circulation 2003;110:227 Current Interpretive Data was last revised on 2018. HDL 27(L) >=40 mg/dL [facility] Comment: Interpretive Data Ages < or [...] on 2018. LDL, calculated 45 <=129 mg/dL [facility] Comment: Interpretive Data Ages < or [...] NCEP Expert Panel. Circulation 2004;110:227 3. Jani Wong et al. STANISLAV Cardiol. 2020 September 26;5(5):540-548. doi: 10.1001/jamacardio.2020.0013 Current Interpretive Data was last revised on 2024. Non-HDL Cholesterol 63 mg/dL [facility] Comment: Interpretive Data Ages < or [...] last revised on 2018. Chol/HDL ratio 3 [facility] Blood 08/15/2024 11:2 8 PM CDT 08/15/2024 11:32 PM CDT us John De Anda MD LAB BLOOD ORDERABLES Final Result [facility] Department [place] [address] * (ABNORMAL) Comprehensive metabolic panel (08/15/2024 11:28 PM CDT) Sodium 132(L) 135 - 145 mmol/L Potassium, pl 3.8 3.3 - 4.9 mmol/L [facility] Chloride 99 97 - 110 mmol/L [facility] CO2 24 22 - 32 mmol/L [facility] Anion gap 9 2 - 15 mmol/L [facility] BUN 7 6 - 25 mg/dL [facility] Creatinine 1.01 0.80 - 1.30 mg/dL [facility] Glucose 122 70 - 199 mg/dL [facility] Comment: Interpretive Data Fasting glucose >/= 126 [...] 2022. Calcium 9.0 8.5 - 10.3 mg/dL [facility] Bilirubin, total <0.2 0.1 - 1.2 mg/dL [facility] Protein, pl 6.7 6.5 - 8.5 g/dL [facility] Albumin 3.2(L) 3.5 - 5.0 g/dL [facility] Alk phos 122 40 - 130 Units/L [facility] ALT 12 7 - 55 Units/L [facility] AST 19 10 - 50 Units/L [facility] Blood 08/15/2024 11:2 8 PM CDT 08/15/2024 11:32 PM CDT us John De Anda MD LAB BLOOD ORDERABLES Final Result [facility] Department of Laboratories [place], [place] [id number] * eGFR (07/23/2024 11:01 AM JUDICIAL CLERK) eGFR >90 >=60 mL/min/1. 73 m2 Comment: [...] reviewed 2021. Blood 07/23/2024 11:0 1 AM JUDICIAL CLERK 07/23/2024 11:03 AM JUDICIAL CLERK us Jonny Parada MD LAB BLOOD ORDERABLES Final Res ult [facility] ([place] 1 [facility] Department [place] [address] * Differential, auto (07/23/2024 11:01 AM JUDICIAL CLERK) Neutrophil abs 1.7 1.5 - 6.5 K/cumm [...] revised on 2017. Lymphocyte pct 38.1 % [facility] ([place]) Comment: Interpretive Data Percent cell count reference ranges are not reported, since discordance with absolute values may lead to misinterpretation of CBC data. Current Interpretive Data was last revised on 2017. Monocyte pct 16.0 % [facility] ([place] Comment: Interpretive Data Percent cell [...] revised on 2017. Basophil pct 1.8 % [facility] ([place] Comment: Interpretive Data Percent cell count reference ranges are not reported, since discordance with absolute values may lead to misinterpretation of CBC data. Current Interpretive Data was last revised on 2017. Blood 07/23/2024 11:0 1 AM JUDICIAL CLERK 07/23/2024 11:03 AM JUDICIAL CLERK us Jonny Parada MD LAB BLOOD ORDERABLES Final Res ult [facility] ([place] 1 [facility] Department [place] [address] * (ABNORMAL) CBC with auto differential (07/23/2024 11:01 AM JUDICIAL CLERK) WBC 3.9 3.8 - 9.9 K/cumm Hgb 13.7 13.0 - 17.5 g/dL [facility] ([place]) Hct 40.3 38.9 - 50.3 % [facility] ([place]) Plt 485(H) 150 - 400 K/cumm [facility] ([place]) MPV 8.8(L) 9.1 - 12.3 fL [facility] ([place]) RBC 4.47 4.30 - 5.80 M/cumm [facility] ([place]) MCV 90.2 81.3 - 96.4 fL [facility] ([place]) MCH 30.6 27.1 - 33.3 pg [facility] ([place]) MCHC 34.0 32.3 - 35.7 g/dL [facility] ([place]) RDW CV 16.7(H) 11.1 - 14.9 % [facility] ([place]) RDW SD 54.8(H) 35.7 - 48.1 fL [facility] ([place]) NRBC abs 0.00 0.00 - 0.01 K/cumm [facility] ([place] Blood 07/23/2024 11:0 1 AM JUDICIAL CLERK 07/23/2024 11:03 AM JUDICIAL CLERK Jonny Parada MD LAB BLOOD ORDERABLES Final Res ult Performing Organization Address [facility] Co de Phone Number [facility] ([place] 1 [facility] [employer] [place] [place] [address] * (ABNORMAL) Ethanol (07/23/2024 11:01 AM JUDICIAL CLERK) Ethanol 314(C) <=10 mg/dL Comment: Critical Result called by [email or web address] at 2024-07-23 11:26:12. Result Read Back by Marine Quan ED Interpretive Data Legal limit of intoxication > or = 80 mg/dL Levels > or = 400 mg/dL are potentially TOXIC. Current interpretive data was last revised on 2018. Blood 07/23/2024 11:0 1 AM JUDICIAL CLERK 07/23/2024 11:03 AM JUDICIAL CLERK Jonny Parada MD LAB BLOOD ORDERABLES Final Res ult Performing Organization Address City/[facility]/ZIP Co de Phone Number [facility] [place] 1 [facility] Department [place] [employer] [place] [place] [address] * (ABNORMAL) Comprehensive metabolic panel (07/23/2024 11:01 AM JUDICIAL CLERK) Sodium 144 135 - 145 mmol/L Potassium, [...] [facility] ([place]) Blood 07/23/2024 11:0 1 AM JUDICIAL CLERK 07/23/2024 11:03 AM JUDICIAL CLERK us Jonny Parada MD LAB BLOOD ORDERABLES Final Res ult [facility] ([place] [address] [place] [address] from Last 3 Months Insurance [facility] MEDICARE ADVANTAGE CIGNA CIGNA [facility] MEDICARE ADVANTAGE Advance Directives For more information, please contact: [phone] * Full Code (Latest Code Status on [...] 11:25 AM 06/05/2023 8:22 PM Care Teams Benefits Processor Relationship Specialty Start Date End Date Ronnell Escobar NP [address] [place] [address] PCP - General Nurse Practitioner 08/16/24
--- OUTSIDE RECORDS SUMMARY | 2024-09-09 00:29 | XMS_ITS | Clinical Summary ---
Author Organization [facility] Address [address], [facility] [address] [place] [address] Phone Care Team Providers Care Miner Assistant Name Role Phone Lamberto Barker Nasra RUCKER Primary Care Provider [phone] Social History Tobacco Use Types Packs/Day Years Used Date Smoking Tobacco: Never Assessed Sex and Gender Information Value Date Recorded Sex Assigned at Not on file Legal Sex Male 8:46 AM CDT Gender Identity Not on file Sexual Orientation Not on file Plan of Treatment Not on file Insurance [facility] [email or web address] MEDICARE C [employer] Care Teams Miner Assistant Relationship Specialty Start Date End Date Lamberto Barker DO [address] [place] [address] PCP - General Internal Medicine 09/18/19
--- OUTSIDE RECORDS SUMMARY | 2024-09-09 00:29 | XMS_ITS | Encounter Summary ---
Author Organization [facility] Healthcare Address [address] [place] [address] Care Team Providers Care Intervention Specialist Name Role Phone Don Walton PA Primary Care Provider Ronnell Escobar NP Primary Care Provider [phone] Savanah Galvez RN Unavailable [phone] Encounter Details Date Type Department Care Team (Late st Contact Info) Description 01/25/2022 Orders Only [facility] [address] [place] [address] Jordana Chambers MD [address] [place] [address] Social History Tobacco Use Types Packs/Day Years [...] 01/27/2022 How often do you attend chur or restorationist services? 1 to 4 times per year 01/27/2022 Do you belong to any clubs o r organizations such as tenriism groups, unions, fraternal or athletic groups, or [...] slept in a correction (including now)? 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 difficile suspected 08/16/2024 08/16/202408/16 2:48 PM [...] documented as of this encounter Care Teams Intervention Specialist Relationship Specialty Start Date End Date Don Walton PA [address] [place] [address] PCP - General Physician Research Asst 12/28/21 08/15/24 Ronnell Escobar NP [address] [place] [address] PCP - General Nurse Practitioner 08/16/24 Savanah Galvez, RN [address] [facility] [address] [place] [address] SHOP Outpatient Electromechanical Engineer 08/22/24 08/25/24 documented as of this encounter
[2024-09-09 00:50] LABS: Basophils Absolute Auto 0.1 K/mm3 (0.0-0.1); Eosinophils Absolute Auto 0.1 K/mm3 (0-0.3); Eosinophils Percent Auto 1.1 % (0-4.4); Hematocrit 34.6 % (42.0-52.0); Hemoglobin 11.2 g/dL (14.0-18.0); Immature Granulocyte Absolute 0.02 K/mm3 (0.00-0.031); Immature Granulocyte Percent A 0.3 % (0-0.5); Lymphocytes Absolute Auto 2.28 K/mm3 (0.9-3.2); Lymphocytes Percent Auto 32.6 % (18.3-44.2); Mean Corpuscular HGB Conc 32.4 g/dl (32-36); Mean Corpuscular Hemoglobin 29.8 pg (26-34); Mean Platelet Volume 8.9 fl (7.4-10.4); Monocytes Absolute Auto 0.8 K/mm3 (0.1-0.6); Monocytes Percent Auto 11.3 % (2.6-8.5); Neutrophils Absolute Auto 3.8 K/mm3 (1.3-6.7); Neutrophils Percent Auto 53.7 % (45.5-73.1); Platelet Count Result 325 k/mm3 (150-375); Red Blood Count 3.76 M/mm3 (4.6-6.20); Red Cell Distribution Width 18.8 % (11.5-14.5)
[2024-09-09] MEDS: SODIUM CHLORIDE 0.9% IV 1,000 ML 999 ML IV CONT (00:54)
[2024-09-09] MEDS: MORPHINE SULFATE (*CRX) 4 MG/ML INJ 2 MG IV PUSH (00:55)
[2024-09-09] MEDS: ONDANSETRON INJ 4 MG/2 ML VIAL IV PUSH (00:55)
[2024-09-09 01:02] LABS: Ethanol 191 mg/dL (<10)
[2024-09-09 01:03] LABS: Alanine Aminotransferase 21 U/L (6-50); Albumin Level 4.6 g/dL (3.5-5.1); Alkaline Phosphatase 66 U/L (38-126); Anion Gap 18 mmol/L (4-12); Aspartate Amino Transferase 32 U/L (17-59); Bilirubin,Total 0.4 mg/dL (0.2-1.3); Blood Urea Nitrogen 17 mg/dL (9-20); Calcium 9.1 mg/dL (8.4-10.2); Carbon Dioxide 20 mmol/L (22-30); Chloride 106 mmol/L (98-107); Estimated CRCL calculation 11 ml/min; Estimated Glomerular Filt Rate > 60; Glucose 114 mg/dL (65-110); Lipase 18 U/L (23-300); Potassium 3.5 mmol/L (3.4-5.0); Sodium 144 mmol/L (137-145)
[2024-09-09] MEDS: THIAMINE 500 MG/NS 100 ML 500 MG/100 ML BAG 200 MG IVPB (01:07)
--- NOTE | 2024-09-09 01:59 | PC.NURSE ---
Patient taken to CT via stretcher at this time.
--- NOTE | 2024-09-09 03:22 | ED.GENADULT ---
HPI - General Adult General Chief complaint: Alcohol Stated complaint: ETOH Time Seen by Provider: 09/09/24 00:10 History of Present Illness HPI narrative: Patient 58-year-old gentleman who presents emergency department with chief complaint of alcohol intoxication and pancreatitis. The patient reports he has been nauseated and some dry heaves and diarrhea. Related Data Home Medications ?Medication ?Instructions ?Recorded ?Confirmed ?Last Taken ?Type jgicgucp-ybok-rubpl acid 400 1 tablet PO DAILY 02/03/21 08/03/24 07/31/24 History mcg-lycopene 600 mcg-ginkgo 120 mg tablet potassium gluconate 595 mg (99 mg) 99 mg PO DAILY 04/25/23 08/03/24 07/31/24 History tablet losartan 25 mg tablet 25 mg PO DAILY 06/28/23 08/03/24 07/31/24 History ascorbic acid (vitamin C) 500 mg 500 mg PO DAILY 08/01/24 08/03/24 07/31/24 History chewable tablet (Acerola C) biotin 5 mg capsule 5 mg PO DAILY 08/01/24 08/03/24 07/31/24 History carbamazepine 200 mg tablet 200 mg PO Q12H 08/01/24 08/03/24 07/31/24 History duloxetine 30 mg capsule,delayed 30 mg PO BID 08/01/24 08/03/24 07/31/24 History release (Cymbalta) magnesium 250 mg tablet 500 mg PO DAILY 08/01/24 08/03/24 07/31/24 History tadalafil 20 mg tablet 5 mg PO DAILY 08/01/24 08/03/24 07/31/24 History tizanidine 4 mg tablet 4 mg PO HS muscle spasticity 08/01/24 08/03/24 Unknown History trazodone 50 mg tablet 50 mg PO HS 08/03/24 08/03/24 Unknown History Allergies Allergy/AdvReac Type Severity Reaction Status Date / Time amoxicillin Allergy Intermediate rash Verified 09/08/24 22:54 Penicillins Allergy Intermediate Pruritic Verified 09/08/24 22:54 rash Review of Systems Review of Systems: A 10 system review of systems was completed on the patient and is negative except for what is stated in the HPI. Nursing and ancillary documentation was reviewed. [facility] Past Medical History Medical History Peptic ulcer Gastroesophageal reflux disease Tobacco dependence Necrotizing pancreatitis Elevated PSA Memory loss Gastritis and duodenitis Essential hypertension Alcoholism Fracture of vertebra due to osteoporosis with routine healing Generalized osteoarthritis of multiple sites Inflammatory arthritis (08/2019) Angioedema (08/2019) Acute pulmonary embolism (08/2019) Pancreatitis Hypercholesteremia Surgical History Surgical History History of appendectomy Family History Family History Mother Hypertension Sibling Patient's brother is in good health Father Family history of pancreatic cancer Social History Social History Social History: Surrogate medical decision maker: Doris Norman, ex-. Code status: Full code. Smoking packs per day: 1 Smoking cigarettes per day: 20.0 Years smoked: 35 Smoking pack-years: 35.00 Smoking status: Current every day smoker Tobacco type: cigarettes Second hand tobacco smoke exposure: No Alcohol intake: current Drinks per week: 100 Alcohol use details: SHOT Substance use: current Substance use type: marijuana Other substance usage details: MEDICAL CARD-DAILY FOR BACK PAIN Last use: Monday Do You Feel Safe in your Home?: Yes Lack of Transportation: No Lack of Food: Never True Current Housing: I Do Not Have Housing Concerned About Future Housing: YES Difficulty Paying Gas/Electric Bills: No Difficulty Paying for Meds: No Currently Unemployed: No Education: High School Diploma/GED Difficulty w/ Childcare or Family Care: No Living arrangements: with family Occupation/Education: retired Spiritual care concerns: No Exam Narrative: GENERAL: Well-appearing, well-nourished, and in no acute distress. HEAD: Normocephalic, atraumatic. EYES: PERRLA and EOMI. ENT: Nares clear, no rhinorrhea or epistaxis. Mucous membranes moist. NECK: Supple. CHEST: Clear to auscultation. No respiratory distress. HEART: Regular rate and rhythm. No murmur heard. Normal peripheral pulses. ABDOMEN: Soft, tenderness to palpation the epigastric region, nondistended, normal active bowel sounds. EXTREMITIES: Normal range of motion. No edema. SKIN: Warm, dry, no rash. NEURO: No focal deficits. Alert and oriented x3. PSYCH: Normal mood and affect. Course Vital Signs Vital signs: Vital Signs Temperature 36.8 C 09/08/24 22:46 Pulse Rate 98 09/08/24 22:46 Respiratory Rate 13 09/08/24 22:46 Blood Pressure 106/80 09/08/24 22:46 Pulse Oximetry 100 09/08/24 22:46 Oxygen Delivery Room Air 09/08/24 22:46 Temperature 36.8 C 09/08/24 22:46 Pulse Rate 89 09/09/24 01:45 Respiratory Rate 14 09/09/24 01:45 Blood Pressure 108/76 09/09/24 01:31 Pulse Oximetry 100 09/09/24 01:15 Oxygen Delivery Room Air 09/08/24 22:46 Medical Decision Making MDM Narrative Medical decision making narrative: Differential diagnosis pancreatitis chronic Laboratory studies showed CBC with white year electrolytes showed elevated gap at 18 CO2 was 20 glucose 114 Patient received IV the emergency department antiemetics and received medicines. Lipase [address] scan of the abdomen pelvis showed chronic pancreatitis Vital Signs Vital Signs: Vital Signs Temperature 36.8 C 09/08/24 22:46 Pulse Rate 98 09/08/24 22:46 Respiratory Rate 13 09/08/24 22:46 Blood Pressure 106/80 09/08/24 22:46 Pulse Oximetry 100 09/08/24 22:46 Oxygen Delivery Room Air 09/08/24 22:46 Temperature 36.8 C 09/08/24 22:46 Pulse Rate 89 09/09/24 01:45 Respiratory Rate 14 09/09/24 01:45 Blood Pressure 108/76 09/09/24 01:31 Pulse Oximetry 100 09/09/24 01:15 Oxygen Delivery Room Air 09/08/24 22:46 Lab Data 09/09/24 00:43 09/09/24 00:43 Labs: Lab Results 09/09/24 Range/Units 00:43 WBC 7.0 (4.5-10.0) K/mm3 RBC 3.76 L (4.6-6.20) M/mm3 Hgb 11.2 L (14.0-18.0) g/dL Hct 34.6 L (42.0-52.0) % MCV 92.0 (80-100) fl MCH 29.8 (26-34) pg MCHC 32.4 (32-36) g/dl RDW 18.8 H (11.5-14.5) % Plt Count 325 D (150-375) k/mm3 MPV 8.9 (7.4-10.4) fl Immature Gran % (Auto) 0.3 (0-0.5) % Neut % (Auto) 53.7 (45.5-73.1) % Lymph % (Auto) 32.6 (18.3-44.2) % Hardin % (Auto) 11.3 H (2.6-8.5) % Eos % (Auto) 1.1 (0-4.4) % Baso % (Auto) 1.0 (0.2-1.2) % Lymph # (Auto) 2.28 (0.9-3.2) K/mm3 Hardin # (Auto) 0.8 H (0.1-0.6) K/mm3 Eos # (Auto) 0.1 (0-0.3) K/mm3 Baso # (Auto) 0.1 (0.0-0.1) K/mm3 Abs Immat Gran (auto) 0.02 (0.00-0.031) K/mm3 Absolute Neuts (auto) 3.8 (1.3-6.7) K/mm3 Absolute Nucleated RBC 0.000 (0.0-0.012) K/mm3 Nucleated RBC % 0.0 (0.0-0.2) % Sodium 144 (137-145) mmol/L Potassium 3.5 (3.4-5.0) mmol/L Chloride 106 (98-107) mmol/L Carbon Dioxide 20 L (22-30) mmol/L Anion Gap 18 H (4-12) mmol/L BUN 17 (9-20) mg/dL Creatinine 0.70 (0.7-1.3) mg/dL Estim Creat Clear Calc 11 ml/min Estimated GFR > 60 (59 - ) Glucose 114 H (65-110) mg/dL Calcium 9.1 (8.4-10.2) mg/dL Total Bilirubin 0.4 (0.2-1.3) mg/dL AST 32 (17-59) U/L ALT 21 (6-50) U/L Alkaline Phosphatase 66 (38-126) U/L Total Protein 7.0 (6.3-8.2) g/dL Albumin 4.6 (3.5-5.1) g/dL Lipase 18 L (23-300) U/L Ethyl Alcohol 191 (<10) mg/dL Discharge Plan Discharge Clinical Impression: Chronic pancreatitis, Alcohol abuse Patient Disposition: Home Condition: Stable Instructions: Antibiotic Form, Pancreatitis (ED), Abuse of Alcohol (ED) Patient Language: Lithuanian Prescriptions: New ondansetron 4 mg tablet,disintegrating 4 mg PO Q8H PRN (Reason: nausea and vomiting) Qty: 10 0RF No Action fenofibrate 160 mg tablet 160 mg PO DAILY Qty: 90 1RF pantoprazole 40 mg tablet,delayed release (DR/EC) See Rx Instructions .ROUTE .COMPLEX Qty: 90 1RF Dose Instruction: TAKE 1 TABLET BY MOUTH EVERY MORNING Rx Instructions: TAKE 1 TABLET BY MOUTH EVERY MORNING meloxicam 7.5 mg tablet 7.5 mg PO BID PRN (Reason: joint pain) Qty: 60 5RF potassium gluconate 595 mg (99 mg) tablet 99 mg PO DAILY losartan 25 mg tablet 25 mg PO DAILY carbamazepine 200 mg tablet 200 mg PO Q12H Patient Comments: for 5 days starting 07/30/24 biotin 5 mg capsule 5 mg PO DAILY magnesium 250 mg tablet 500 mg PO DAILY ascorbic acid (vitamin C) [Acerola C] 500 mg tablet,chewable 500 mg PO DAILY tizanidine 4 mg tablet 4 mg PO HS tadalafil 20 mg tablet 5 mg PO DAILY duloxetine [Cymbalta] 30 mg capsule,delayed release(DR/EC) 30 mg PO BID Patient Comments: 2 capsules in AM, 1 at HS trazodone 50 mg tablet 50 mg PO HS go-nnrn-szcyn-lycopene-ginkgo 400-600-120 mcg-mcg-mg Tablet 1 tablet PO DAILY gabapentin 300 mg capsule 300 mg PO Q8H Qty: 270 1RF amlodipine 10 mg tablet 10 mg PO DAILY Qty: 90 1RF folic acid 1 mg tablet See Rx Instructions .ROUTE .COMPLEX Qty: 90 1RF Dose Instruction: TAKE 1 TABLET BY MOUTH DAILY Rx Instructions: TAKE 1 TABLET BY MOUTH DAILY Creon 12,000-38,000 -60,000 unit capsule,delayed release(DR/EC) See Rx Instructions .ROUTE .COMPLEX Qty: 100 5RF Dose Instruction: TAKE 1 CAPSULE BY MOUTH THREE TIMES DAILY WITH MEALS AND/OR SNACKS Rx Instructions: TAKE 1 CAPSULE BY MOUTH THREE TIMES DAILY WITH MEALS AND/OR SNACKS Follow-up/Referrals: [facility] [Outside] Ronnell Escobar APRN [Primary Care Provider] - Time of Disposition: 03:42
[2024-09-09] MEDS: MORPHINE SULFATE (*CRX) 4 MG/ML INJ IV PUSH (03:27)
== END 2024-09-09 04:00 | disposition home or self-care (01) ==
PROVIDERS: Emergency Provider Emergency Medicine; PCP Nurse Practitioner
DX: K86.1 Other chronic pancreatitis (principal); F10.129 Alcohol abuse with intoxication, unspecified; Y90.6 Blood alcohol level of 120-199 mg/100 ml; I10 Essential (primary) hypertension; E78.00 Pure hypercholesterolemia, unspecified; K21.9 Gastro-esophageal reflux disease without esophagitis; M19.90 Unspecified osteoarthritis, unspecified site; F17.210 Nicotine dependence, cigarettes, uncomplicated; Z86.711 Personal history of pulmonary embolism; Z87.11 Personal history of peptic ulcer disease
CPT/HCPCS: 36415; 74177; 80053; 82077; 83690; 85025; 96365; 96375; 96376; 99284; J2270; J2405; J3411; J7030; Q9967

== ENCOUNTER 2024-11-03 21:45 | Emergency (ER) | payer MEDICARE, SELFPAY ==
--- NOTE | ~2024-11-03 | CT_ITS ---
CT of the Abdomen and Pelvis: Indication: Epigastric pain Technique: 2.5 mm axial scans were obtained through the abdomen and pelvis following intravenous adm inistration of 100 cc of Omnipaque 350. Dose reduction technique was used on this scan by utilizing a utomated exposure control and iterative reconstruction technique. The dose-length product (DLP) was 4 64.42 mGy-cm. Findings: Scans through the lung bases are unremarkable. Probable diffuse hepatic steatosis. The spleen, gallbladder, adrenals and kidneys are within normal l imits. Focal pancreatic calcifications suggest chronic pancreatitis. No evidence of aortic aneurysm. No lymphadenopathy. 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 No bowel obstruction or bowel wall thickening. There is no evidence to suggest acute appendicitis. Images through the pelvis were performed. Urinary bladder unremarkable. No pelvic mass seen. No ascit es. Impression: No definite acute abnormality. Probable diffuse hepatic steatosis. 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 Chronic pancreatitis. Reviewed, dictated and finalized at location . Impression: No definite acute abnormality. Probable diffuse hepatic steatosis. 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 Chronic pancreatitis.
--- NOTE | ~2024-11-03 | XR_ITS ---
Clinical Indication: Epigastric pain PA view of the chest: Comparison: 08/05/2024 Findings: The lungs are clear, without evidence of focal consolidation or pleural effusion. Cardiome diastinal silhouette is within normal limits. Bones and soft tissues are unremarkable. Impression: Normal chest. Reviewed, dictated and finalized at location . Impression: Normal chest.
--- OUTSIDE RECORDS SUMMARY | 2024-11-03 21:47 | XMS_ITS | Encounter Summary ---
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 difficile suspected 08/16/2024 08/16/202408/16 2:48 PM [...] documented as of this encounter Care Teams Administrative Project Coordinator Relationship Specialty Start Date End Date Unknown, Notinfile PCP - General 10/01/19 04/26/20 Lamberto Barker MD [address] [place], [place] [id number] PCP - General Internal Medicine 04/27/20 12/27/21 Don Walton PA [address] [place], [place] [id number] PCP - General Physician Resource Paraprofessional 12/28/21 08/15/24 Ronnell Escobar NP [address] [place] [address] PCP - General Nurse Practitioner 08/16/24 Savanah Galvez, RN [address] [facility] [address] [place] [address] SHOP Outpatient Sole Tacker 08/22/24 08/25/24 documented as of this encounter
--- OUTSIDE RECORDS SUMMARY | 2024-11-03 21:47 | XMS_ITS | Encounter Summary ---
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 difficile suspected 08/16/2024 08/16/202408/16 2:48 PM [...] documented as of this encounter Care Teams Iso Coordinator Relationship Specialty Start Date End Date Unknown, Notinfile PCP - General 10/01/19 04/26/20 Lamberto Barker MD [address] [place] [address] PCP - General Internal Medicine 04/27/20 12/27/21 Don Walton PA [address] [place] [address] PCP - General Physician Agricultural Economics Professor 12/28/21 08/15/24 Ronnell Escobar NP [address] [place] [address] PCP - General Nurse Practitioner 08/16/24 Savanah Galvez, RN [address] [facility] [address] [place] [address] SHOP Outpatient Pediatric Np 08/22/24 08/25/24 documented as of this encounter
--- OUTSIDE RECORDS SUMMARY | 2024-11-03 21:47 | XMS_ITS | Encounter Summary ---
Author Organization 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 difficile suspected 08/16/2024 08/16/202408/16 2:48 PM [...] documented as of this encounter Care Teams Light Rail Transit Operator Relationship Specialty Start Date End Date Unknown, Notinfile PCP - General 10/01/19 04/26/20 Lamberto Barker MD [address] [place] [address] PCP - General Internal Medicine 04/27/20 12/27/21 Don Walton PA [address] [place] [address] PCP - General Physician Candy Cutter Hand 12/28/21 08/15/24 Ronnell Escobar NP [address] [place] [address] PCP - General Nurse Practitioner 08/16/24 Savanah Galvez, RN [address] [facility] [address] [place] [address] SHOP Outpatient Wad Compressor Operator Adjuster 08/22/24 08/25/24 documented as of this encounter
--- OUTSIDE RECORDS SUMMARY | 2024-11-03 21:48 | XMS_ITS | Clinical Summary ---
Author Organization [facility] Office Center Address [address] [place] [address] Care Team Providers Care World Language Teacher Name Role Phone Ronnell Escobar NP Primary Care Provider + [phone] Allergies Active Allergy Reactions Criticality Noted Date Comments Ciprofloxacin Hives Medium 06/02/2023 Patient stated he has previously tolerated PO. 06/02/23 had redness and hives after IV dose. Penicillins Rash Medium 05/08/2019 Oqznmbaitctn-Bldjnrqrtl-Bgy trs Angioedema High 09/17/[address] [...] for constipation 60 tablet 07/13/19 22 Active multivit cfbcgdug-jjom-LB-noe cium (THERA-M) 9 mg iron-400 mcg tablet Take 1 tablet by mouth daily Active aspirin 81 mg enteric coated tablet Take 1 tablet (81 mg total) by mouth daily Started at rehab Active diphenhydrAMINE (BENADRYL) 50 mg capsule Take 1 capsule (50 mg total) by mouth nightly as needed Active ondansetron ODT (ZOFRAN-ODT) 4 mg disintegrating tablet Take 1 tablet (4 mg total) by mouth every 8 (eight) hours as needed for nausea or vomiting 20 tablet 06/13/19 24 Active acetaminophen (TYLENOL) 325 mg tablet Take 2 tablets (650 mg total) by mouth every 4 (four) hours as needed for pain 10/01/19 24 Active pancrelipase (Creon) 12,000 units of lipase capsule Take 1 capsule (12,000 units of lipase total) by mouth 3 (three) times a day with meals 90 capsule 2 08/22/19 25 025 Active fenofibrate nanocrystallized (TRICOR) 145 mg tablet Take 1 tablet (145 mg total) by mouth daily 30 tablet 11 08/23/19 25 026 Active gabapentin (NEURONTIN) 600 mg tablet Take 1 tablet (600 mg total) by mouth 3 (three) times a day 270 tablet 3 08/22/19 25 026 Active loperamide (IMODIUM) 2 mg capsule Take 1 capsule (2 mg total) by mouth 3 (three) times a day as needed for diarrhea 30 capsule 08/22/19 25 Active tiZANidine (ZANAFLEX) 4 mg tablet Take 1 tablet (4 mg total) by mouth nightly as needed for muscle spasms 30 tablet 08/22/19 25 Active meloxicam (MOBIC) 7.5 mg tablet Take 1 tablet (7.5 mg total) by mouth 2 (two) times a day as needed for pain 08/24/19 25 Active tadalafiL (CIALIS) 5 mg tablet Take 1 tablet (5 mg total) by mouth daily 09/10/19 25 Active vitamin B-1 100 mg tablet Take 1 tablet (100 mg total) by mouth daily 09/11/19 25 Active polyethylene glycol (MIRALAX) 17 gram packetIndications:co nstipation Take 1 packet (17 g total) by mouth 2 (two) times a day as needed for constipation Active Active Problems Problem Noted Date Diagnosed Date Alcohol withdrawal syndrome without complication 09/13/2024 Moderate protein-calorie malnutrition 08/16/2024 Acute on chronic pancreatitis 08/15/2024 Thrombocytosis 09/30/2023 Acute pancreatitis without n ecrosis or infection, unspecified 09/20/2023 Constipation 06/10/2023 Assessment & Plan (06/12/2023 2:18 PM [employer]): Patient reports feeling constipated, gassy and bloated. [...] 06/08/2023 Assessment & Plan (06/09/2023 1:55 PM [employer]): Resolved. Acute pancreatitis, unspecif ied complication status, unspecified pancreatitis type 06/04/2023 Assessment & Plan (06/05/2023 12:45 PM [employer]): Longstanding bouts of pancreatitis originally from EtOH [...] 06/04/2023 Assessment & Plan (06/05/2023 12:48 PM [employer]): Likely from pancreatitis. Also tender to palpation initially so may be a musculoskeletal component from dry heaving. Trops negative. EKG no ischemic changes. He reports hx of [place] in the past, unclear circumstances. He had an exercise stress test in spring at an outside facility that he says was normal. Cont ASA. Gram-negative bacteremia 04/11/2023 Assessment & Plan (04/13/2023 7:02 PM [employer]): - due to cholangitis - BCx + for E coli and K. Pneumoniae - repeat BCx drawn 04/11, ngtd - pansensitive organisms - d/c home today with flagyl/cipro Cholangitis 04/10/2023 Assessment & Plan (04/12/2023 6:21 PM [employer]): - Improving - 04/10 ERCP - removal of two migrates stents with biliary obstruction and replaced with 2 new stents in biliary stricture - PRN analgesics and antiemetics Assessment & Plan (04/10/2023 2:40 AM [employer]): -meets [place] criteria for acute cholangitis based [...] less likely MRCP------> GI consult ordered in [facility] -NPO x sips, ice chips -IVFs overnight -PRN analgesics and antiemetics -repeat CBC, BMP, HFP in AM 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 Encounter for removal of biliary stent 3 Acute recurrent pancreatitis 01/26/2022 Post-ERCP acute pancreatitis 01/04/2022 Assessment & Plan (06/13/2023 2:35 PM [employer]): Recently admitted from 06/04-06/05/23 after ERCP on [...] (01/05/2022): Added automatically from request for surgery [id number] Assessment & Plan (04/11/2023 3:57 PM [employer]): - improving -2/2 stent migration and resultant biliary obstruction Assessment & Plan (04/10/2023 2:27 AM [employer]): -2/2 stent migration and resultant biliary obstruction -mgmt as above -repeat HFP in AM 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 Overview (11/30/2021): Added automatically from request for surgery [id number] Encounter for replacement of biliary stent 11/30 Overview (11/30/2021): Added automatically from request for surgery [id number] 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 Pancreatic pseudocyst 07/26/2021 Severe sepsis 07/08/2021 Assessment & Plan (07/13/2021 9:43 AM [employer]): Pt elevated temp on 07/07 overnight 38.1 [...] infection Assessment & Plan (07/12/2021 9:40 AM [employer]): Pt elevated temp on 07/07 overnight 38.1 [...] infection Assessment & Plan (07/11/2021 10:55 AM [employer]): Pt elevated temp on 2 overnight 38.1 [...] bed Assessment & Plan (07/10/2021 9:10 AM [employer]): Pt elevated temp on 2 overnight 38.1 [...] daily Assessment & Plan (07/09/2021 2:23 PM [employer]): Pt elevated temp on 209 overnight 38.1 [...] daily Assessment & Plan (07/08/2021 1:53 PM [employer]): Pt elevated temp overnight 38.1 max, hypotensive [...] 07/07/2021 Assessment & Plan (07/13/2021 9:43 AM [employer]): Dobbhoff placed 07/08, tube feeding to initiated Osmolite 1.5 at 55mL/hr over 24h via NJ tube continuous via pump. Flush with 150mL water q4h. Now at goal of 55cc/hr. Can cycle at home as instructed. Will continue TF until follow up with GI as outpatient Assessment & Plan (07/12/2021 9:39 AM [employer]): Dobbhoff placed /10, tube feeding to initiated Osmolite 1.5 at 55mL/hr over 24h via NJ tube continuous via pump. Flush with 150mL water q4h. Now at goal of 55cc/hr. Can cycle at home as instructed. Will continue TF until follow up with GI as outpatient Assessment & Plan (07/11/2021 10:55 AM [employer]): Dobbhoff placed 07/08, tube feeding to initiated [...] Phos Assessment & Plan (07/10/2021 9:08 AM [employer]): Dobbhoff placed 07/08, tube feeding to initiated [...] Phos Assessment & Plan (07/09/2021 2:25 PM [employer]): Dobbhoff placed 07/08, tube feeding to initiated [...] prn Assessment & Plan (07/08/2021 1:11 PM [employer]): Dobbhoff placed 07/08, tube feeding to initiate TF recommendations: Goal: Osmolite 1.5 at 55mL/hr over 24h via NJ tube continuous via pump. Flush with 150mL water q4h. Initiate TF at 10mL/hr and increase by 10mL q4h until goal rate is reached Chronic pancreatitis, unspecified pancreatitis t ype 07/06/2021 Assessment & Plan (07/13/2021 9:42 AM [employer]): Ongoing acute episode of (developing) chronic pancreatitis. [...] home Assessment & Plan (07/12/2021 9:38 AM [employer]): Ongoing acute episode of (developing) chronic pancreatitis. [...] 07/13 Assessment & Plan (07/11/2021 10:53 AM [employer]): Ongoing acute episode of (developing) chronic pancreatitis. [...] discharge Assessment & Plan (07/10/2021 9:07 AM [employer]): Ongoing acute episode of developing chronic pancreatitis. [...] enteral feedings. GI consult pt dobbhoff placed 10 for pancreatic rest. Continue conservative treatment (IVF, analgesic, antiemetics) RD c/s tube feeding plan initiated and now at goal feeding and tolerating well Goal to decrease narcotic pain med use Scheduled acetaminophen and Ketorolac CTM Likely home Monday with home tube feedings Assessment & Plan (07/09/2021 2:30 PM [employer]): Ongoing acute episode of chronic pancreatitis. Just [...] CTM Assessment & Plan (07/08/2021 1:49 PM [employer]): Ongoing acute episode of chronic pancreatitis. Just [...] plan Assessment & Plan (07/07/2021 11:22 AM [employer]): Ongoing acute episode of chronic pancreatitis. Just [...] plan Assessment & Plan (07/06/2021 5:30 PM [employer]): Ongoing acute episode of chronic pancreatitis. Just [...] 07/06/2021 Assessment & Plan (07/13/2021 9:42 AM [employer]): Likely ATN related to hypotensive episode. Cr peaked at Cr at 2.31, now back to baseline after aggressive IVF and now tolerating TF. Assessment & Plan (07/12/2021 9:36 AM [employer]): Likely ATN related to hypotensive episode. Cr peaked at Cr at 2.31, now back to baseline after aggressive IVF and now tolerating TF. Assessment & Plan (07/11/2021 10:54 AM [employer]): Likely ATN related to hypotensive episode. Cr peaked at Cr at 2.31, now back to baseline after aggressive IVF, continue to monitor bmp, continue fluids Assessment & Plan (07/10/2021 9:08 AM [employer]): Likely ATN related to hypotensive episode. Cr peaked at Cr at 2.31, now back to baseline after aggressive IVF, continue to monitor bmp, continue fluids Assessment & Plan (07/09/2021 2:29 PM [employer]): Cr at baseline after aggressive IVF, continue to monitor bmp, continue fluids Assessment & Plan (07/08/2021 1:10 PM [employer]): Cr baseline 0.8 now up to 1.3 on arrival due to po intolerance Aggressive IVF will monitor urine output Today net fluid intake 191 Cr trended up to 2.31 continue aggressive fluids Daily bmp Continue IVF Assessment & Plan (07/07/2021 11:19 AM [employer]): Cr baseline 0.8 now up to 1.3 on arrival due to po intolerance Aggressive IVF will monitor urine output Today net fluid intake 191 Cr 1.05 improving with fluids Daily bmp Continue IVF Assessment & Plan (07/06/2021 5:39 PM [employer]): Cr baseline 0.8 now up to 1.3 on arrival due to po intolerance Aggressive IVF will monitor urine output Alcohol dependence 06/25/2021 Assessment & Plan (06/07/2023 5:01 AM [employer]): Last drink on Grisel and he reports [...] program Assessment & Plan (07/13/2021 9:42 AM [employer]): Has a long history of alcohol use [...] Group Assessment & Plan (07/12/2021 9:36 AM [employer]): Has a long history of alcohol use [...] Group Assessment & Plan (07/11/2021 10:54 AM [employer]): Has a long history of alcohol use [...] Group Assessment & Plan (07/10/2021 9:05 AM [employer]): Has a long history of alcohol use [...] Group Assessment & Plan (07/09/2021 2:33 PM [employer]): Has a long history of alcohol use [...] Group Assessment & Plan (07/08/2021 1:06 PM [employer]): Has a long history of alcohol use with dependence. He states he has not had a drink since before his ERCP 06/22/2021 and has been on Vivitrol injections. His ethanol level on arrival to the ED is negative Plan to continue EtOH cessation and support with outpatient naltrexone therapy. Assessment & Plan (07/07/2021 11:13 AM [employer]): Has a long history of alcohol use with dependence. He states he has not had a drink since before his ERCP 06/22/2021 and has been on Vivitrol injections. His ethanol level on arrival to the ED is negative Plan to continue EtOH cessation and support with outpatient naltrexone therapy. Assessment & Plan (07/06/2021 5:22 PM [employer]): Has a long history of alcohol use with dependence. He states he has not had a drink since before his ERCP 06/22/2021 and has been on Vivitrol injections. His ethanol level on arrival to the ED is negative Plan to continue EtOH cessation and support with outpatient naltrexone therapy Assessment & Plan (06/28/2021 11:39 AM [employer]): Long standing hx of alcohol dependence with hx of short term remission. Last drink was 06/17. States he usually drinks hard liquor shot. Denies hx of seizure or delirium. On vivitrol but did not receive this month's shot due to being on analgesic for post ERCP pain control. -thiamine -folate -MVI -ciwa protocol - PRN Ativan, has not needed Assessment & Plan (06/27/2021 11:47 AM [employer]): Long standing hx of alcohol dependence with hx of short term remission. Last drink was 06/17. States he usually drinks hard liquor shot. Denies hx of seizure or delirium. On vivitrol but did not receive this month's shot due to being on analgesic for post ERCP pain control. -thiamine -folate -MVI -ciwa protocol - PRN Ativan, has not needed Assessment & Plan (06/26/2021 11:59 AM [employer]): Long standing hx of alcohol dependence with hx of short term remission. Last drink was 06/17. States he usually drinks hard liquor shot. Denies hx of seizure or delirium. On vivitrol but did not receive this month's shot due to being on analgesic for post ERCP pain control. -thiamine -folate -MVI -ciwa protocol - Ativan Hypertension 06/25/2021 Assessment & Plan (06/07/2023 5:06 AM [employer]): Markedly hypertensive on ED arrival in the setting of pain -Continue home Amlodipine 10 mg qday and losartan 25 mg qday Assessment & Plan (06/05/2023 12:47 PM [employer]): Hypertensive initially from pain. Improved today. Cont home meds. Assessment & Plan (04/12/2023 6:21 PM [employer]): -continue norvasc Assessment & Plan (04/10/2023 2:31 AM [employer]): -resume norvasc in AM Assessment & Plan (01/11/2022 11:23 AM CDT): Continue norvasc Assessment & Plan (01/10/2022 11:40 AM CDT): Continue norvasc Assessment & Plan (07/13/2021 9:43 AM [employer]): Continue to hold home lisinopril on account of recent hypotension/JOSE. With low normotensive BP will discontinue lisinopril. Follow up with PCP in 2-4 weeks to re evaluate restarting if needed Assessment & Plan (07/12/2021 9:38 AM [employer]): Continue to hold home lisinopril on account of recent hypotension/JOSE. BP normal, may not require lisinopril on discharge. Assessment & Plan (07/11/2021 10:54 AM [employer]): Continue to hold home lisinopril on account of recent hypotension/JOSE. BP normal, may not require lisinopril on discharge. Assessment & Plan (07/10/2021 9:06 AM [employer]): Continue to hold home lisinopril on account of recent hypotension Assessment & Plan (07/09/2021 2:32 PM [employer]): Continue to hold home lisinopril until more stable BP Assessment & Plan (07/08/2021 1:06 PM [employer]): BP hypotensive overnight hold antihypertensives at this time. Assessment & Plan (07/07/2021 11:15 AM [employer]): BP on remain normotensive Continue lisinopril and pain control Assessment & Plan (07/06/2021 5:30 PM [employer]): BP on arrival normotensive Continue lisinopril and pain control Assessment & Plan (06/28/2021 11:39 AM [employer]): Continue home lisinopril 40 mg -Monitor BP -BP stable Assessment & Plan (06/27/2021 11:48 AM [employer]): Continue home lisinopril 40 mg -Monitor BP/Cr -BP stable Assessment & Plan (06/25/2021 4:55 PM [employer]): Continue home lisinopril 40 mg -Monitor BP/Cr -Daily BMP Tobacco abuse 06/25/2021 Major depressive disorder 06/25/2021 Assessment & Plan (06/07/2023 5:07 AM [employer]): Continue home duloxetine 30 mg BID and trazodone 50 mg qhs Assessment & Plan (06/04/2023 11:58 AM [employer]): Cont home meds Assessment & Plan (01/11/2022 11:23 AM CDT): Continue duloxetine scheduled and trazodone prn Assessment & Plan (01/10/2022 11:40 AM CDT): Continue duloxetine scheduled and trazodone prn Assessment & Plan (07/13/2021 9:43 AM [employer]): Most certainly contributing to his long standing alcohol use. Continue home meds duloxetine and trazodone Assessment & Plan (07/12/2021 9:38 AM [employer]): Most certainly contributing to his long standing alcohol use. Continue home meds duloxetine and trazodone Assessment & Plan (07/11/2021 10:54 AM [employer]): Most certainly contributing to his long standing alcohol use. Continue home meds duloxetine and trazodone Assessment & Plan (07/10/2021 9:06 AM [employer]): Most certainly contributing to his long standing alcohol use. Continue home meds duloxetine and trazodone Assessment & Plan (07/09/2021 2:30 PM [employer]): Most certainly contributing to his long standing alcohol use now with cessation Continue home meds duloxetine and trazodone Assessment & Plan (07/08/2021 1:09 PM [employer]): Most certainly contributing to his long standing alcohol use now with cessation Continue home meds duloxetine and trazodone Assessment & Plan (07/07/2021 11:16 AM [employer]): Most certainly contributing to his long standing alcohol use now with cessation Continue home meds duloxetine and trazodone Assessment & Plan (07/06/2021 5:32 PM [employer]): Most certainly contributing to his long standing alcohol use now with cessation Continue home meds duloxetine and trazodone Assessment & Plan (06/28/2021 11:39 AM [employer]): Continue home Trazodone 50 mg, Cymbalta 30 mg Resume Biofeedback at discharge Assessment & Plan (06/27/2021 11:48 AM [employer]): Continue home Trazodone 50 mg, Cymbalta 30 mg Resume Biofeedback at discharge Assessment & Plan (06/25/2021 4:57 PM [employer]): Continue home Trazodone 50 mg, Cymbalta 30 mg Resume Biofeedback at discharge Pancreatic duct obstruction 06/11/2021 Overview (06/11/2021): Added automatically from request for surgery [id number] Abdominal pain 06/11/2021 Overview (06/11/2021): Added automatically from request for surgery [id number] Necrotizing pancreatitis 10/21/2019 Therapeutic opioid induced constipation 10/21/19 Assessment & Plan (07/13/2021 9:44 AM [employer]): Continue bowel regimen Assessment & Plan (07/12/2021 9:41 AM [employer]): Bowel regimen ordered without BM. Will titrate bowel regimen Assessment & Plan (07/11/2021 10:58 AM [employer]): Bowel regimen ordered Assessment & Plan (06/28/2021 11:39 AM [employer]): Pt states no BM for the past week. Likely due to decrease intake and vomiting, possible contribution from opioids -daily bowel regimen, had BM Monday Assessment & Plan (06/27/2021 11:48 AM [employer]): Pt states no BM for the past week. Likely due to decrease intake and vomiting, possible contribution from opioids -daily bowel regimen Assessment & Plan (06/26/2021 12:00 PM [employer]): Pt states no BM for the past week. Likely due to decrease intake and vomiting, possibly contribution from opioids -daily bowel regimen -clear liquid diet Acute pancreatitis 05/08/2019 Assessment & Plan (06/28/2021 11:38 AM [employer]): Hx of chronic pancreatis starting 3 years [...] prioritized. Assessment & Plan (06/27/2021 11:46 AM [employer]): Hx of chronic pancreatis starting 3 years [...] prioritized. Assessment & Plan (06/26/2021 11:59 AM [employer]): Hx of chronic pancreatis starting 3 years [...] 04/11/2023 Assessment & Plan (04/10/2023 2:38 AM [employer]): -migrated stent likely etiology of presenting symptoms and lab, CT findings -will likely need ERCP for stent exchange on Monday Metabolic acidosis, increased anion gap (IAG) 06/25/19 22 07/09/2021 Assessment & Plan (07/09/2021 2:31 PM [employer]): Dobbhoff placed 07/08, to start tube feeding TF recommendations: Goal: Osmolite 1.5 at 55mL/hr over 24h via [place] tube continuous via pump. Flush with 150mL water q4h. Initiate TF at 10mL/hr and increase by 10mL q4h until goal rate is reached Assessment & Plan (07/08/2021 1:49 PM [employer]): Due to starvation in the setting of [...] reached Assessment & Plan (07/07/2021 11:16 AM [employer]): Due to starvation in the setting of intolerance to PO for the last 3-4 days. Will provide aggressive IVF Continue to discuss enteral feedings with the patient going forward, currently pt is refusing, GI will readdress with pt today with goal for placement today should pt agree. Change IVF to D5LR Assessment & Plan (07/06/2021 5:38 PM [employer]): Due to starvation in the setting of intolerance to PO for the last 3-4 days. Will provide aggressive IVF Continue to discuss enteral feedings with the patient going forward Assessment & Plan (06/28/2021 11:39 AM [employer]): Likely dehydration from pancreatitis, n/v and poor intake. Heme concentrated hgb 14.9 (baseline 8-9), wbc 14.4 no source of infection likely heme concentrated, anion gap 20, UA ketone +1. Resolved with IVF Assessment & Plan (06/27/2021 11:47 AM [employer]): Likely dehydration from pancreatitis, n/v and poor intake. Heme concentrated hgb 14.9 (baseline 8-9), wbc 14.4 no source of infection likely heme concentrated, anion gap 20, UA ketone +1. Resolved with IVF Assessment & Plan (06/26/2021 12:00 PM [employer]): Likely dehydration from pancreatitis, n/v and poor intake. Heme concentrated hgb 14.9 (baseline 8-9), wbc 14.4 no source of infection likely heme concentrated, anion gap 20, UA ketone +1 -IVF -Clear liquid diet -Daily bmp Encounters Date Type Department Care Team Description 10/31/2024 Documentation [facility] Case Management [address] [place] [address] Izabella Pérez 10/15/2024 Telephone [facility] Gastroenterology [address] [facility] [address] [place] [address] [place] [address] Samson Esteban 09/30/2024 Telephone [facility] Gastroenterology [address] [facility] [address] [address] [place] [address] [place] [address] Samson Esteban Scheduling Appointments 09/13/2024 2:28 PM CDT - 09/19/2024 12:27 PM CDT Hospital Encounter [address] [address] Melyssa Pastor MD Potluri, Sobhana Krishna, MD Alcohol withdrawal syndrome without complication (HCC) (Primary Dx); Acute on chronic pancreatitis (HCC) Discharge Disposition: Discharge to an Rehab facility 08/28/2024 Telephone [facility] Gastroenterology [address] [facility] [address] [address] [place] [address] [place] [id number] Samson Esteban imaging due 08/28/2024 Orders Only [facility] Gastroenterology [address] [facility] [address] [address] [place] [address] [place] [id number] Kenneth Loya MD Necrotizing pancreatitis (Primary Dx) 08/26/2024 SHOP/CHAP Initial Outreach [facility]NA[facility]EMENT [address] [place] [address] Savanah Galvez RN 08/23/2024 SHOP/CHAP Initial Outreach [facility] [address] [place] [address] Savanah Galvez RN 08/23/2024 Documentation [facility] G[facility]enter[facility] [facility] [address] [place] [id number] Sadaf Yates RN GI f/u recs 08/22/2024 SHOP/CHAP Initial Outreach [facility] [address] [place] [id number] Savanah Galvez RN 08/22/2024 SHOP/CHAP Initial Eligibility Review [facility] OP CASE MANAGEMENT [address] [place] [address] Savanah Galvez RN 08/15/2024 9:03 PM CDT - 08/21/2024 4:12 PM CDT Hospital Encounter [facility] [address] [place] [address] John De Anda MD Thoelke, Mark S W., MD Discharge Disposition: Discharge to home or self care from Last 3 Months Immunizations Immunization Administration [...] e alcohol) [facility] Utilities Answer Date Recorded In the past 12 months has e [employer], gas, oil, or water [employer] threatened to shut off services in your home? No 09/16/2024 Social Connection and Isolation Panel [NHANES] A nswer Date Recorded In a typical week, how many times do you talk on the phone with family, friends, or neighbors? Three times a week 04/21/20 25 How often do you get togethe r with friends or relatives? Three times a week 09/16/2024 How often do you attend chur ch or mandaen services? 1 to 4 times per year 09/16/2024 Do you belong to any clubs o r organizations such as pentecostalism groups, unions, fraternal or athletic groups, or school groups? No 09/16/2024 How often do you attend meet ings of the clubs or organizations you belong to? Never 09/16/2024 Are you , , di vorced, , never , or living with a partner? 09/16/2024 AUDIT-C Answer Date Recorded Q1: How often [...] like food, housing, medical care, and heating? Hard 09/16/2024 [facility] - [...] you got the money to buy more. Sometimes true Within the past 12 months, t he food you bought just didn't last and you didn't have money to get more. Sometimes true PRAPARE - Transportation Answer Date Re corded In the past 12 months, has l ack of transportation kept you from medical appointments or from getting medications? Yes 08/28 In the past 12 months, has l ack of transportation kept you from meetings, work, or from getting things needed for daily living? Yes 09/16/2024 Housing Stability Vital Sign Answer Dangelo e [...] in a mcfp (including now)? No 09/21/2023 Housing Stability Vital Sign Answer Dangelo e Recorded In the last 12 months, was t here a time when you were not able to pay the mortgage or rent on time? No 09/16/2024 In the past 12 months, how m any times have you moved where you were living? 1 09/16/2024 At any time in the past 12 m [facility], were you homeless or living in a mcfp (including now)? Yes 09/16/2024 Personal Safety Answer Date Recorded Have you ever been in or are you currently in a harmful physical or emotional relationship or is someone making you feel afraid or unsafe? Denies 09/13/2024 Sex and Gender Information Value Date Recorded Sex Assigned at Not on file Legal Sex Male 1:58 AM [employer] Gender Identity Not on file Sexual Orientation Not on file Occupation Industry Job Start Date Job End Date disability Not on file Not on file Not on file Obstetrics History Last Filed Vital Signs Vital Sign Reading Time Taken Comments Blood Pressure 122/90 09/19/2024 7:00 AM CDT Pulse 79 09/19/2024 7:00 AM CDT Temperature 36.5 C (97.7 F) 09/19/2024 7:00 AM CDT Respiratory Rate 18 09/19/2024 7:00 AM CDT Oxygen Saturation 98% 09/19/2024 7:00 AM CDT Inhaled Oxygen Concentration - - Weight 73.8 kg (162 lb 11.2 oz) 09/13/2024 8:02 PM CDT Height 182.9 cm (6') 09/13/2024 8:02 PM CDT Body Mass Index 22.07 09/13/2024 8:02 PM CDT Plan of Treatment Health Maintenance [...] this topic Medical Devices Implanted Type Area Insulation Cupola Operator Device Identifier Shelf Expiration Date Model / Serial / Lot [employer] Kemal 8.5 Fr Nasal Biliary Catheter [id number] - [id number] Implanted:Qty: 1 on 01/26/2022 by Kenneth Loya MD at [facility] Catheter [employer] 06/22/2024 [id number] / / [id number] [employer] 10fr 5cm Biliary Double Pigtail Stent [id number] - [id number] Implanted:Qty: 1 on 09/21/2023 by Kenneth Loya MD at [facility] Stent N/A: Bile Duct [employer] 08/14/2025 [id number] / / [id number] [employer] 10fr 5cm Biliary Stent [id number] - [id number] Implanted:Qty: 1 on 09/21/2023 by Kenneth Loya MD at [facility] Stent N/A: Bile Duct [employer] 07/03/2025 [id number] / / [id number] [employer] 10fr 5cm Biliary Double Pigtail Stent [id number] - [id number] Implanted:Qty: 1 on 09/21/2023 by Kenneth Loya MD at [facility] Stent N/A: Bile Duct [employer] 08/23/2025 [id number] / / [id number] [employer] 10fr 5cm Biliary Double Pigtail Stent [id number] - [id number] Implanted:Qty: 1 on 09/21/2023 by Kenneth Loya MD at [facility] Stent N/A: Bile Duct [employer] 08/23/2025 [id number] / / [id number] [employer] 10fr 5cm Biliary Double Pigtail Stent [id number] - [id number] Implanted:Qty: 1 on 09/21/2023 by Kenneth Loya MD at [facility] Stent N/A: Bile Duct [employer] 08/14/2025 [id number] / / [id number] [employer] 10fr 7cm Biliary Stent [id number] - [id number] Implanted:Qty: 1 on 04/10/2023 by John De Anda MD at [facility] [employer] [id number] 12/13/2024 [id number] / / [id number] [employer] 10fr 7cm Biliary Stent [id number] - [id number] Implanted:Qty: 1 on 04/10/2023 by John De Anda MD at [facility] [employer] [id number] 02/07/2025 [id number] / / [id number] Explanted Type Area Insulation Cupola Operator Device Identifier Shelf Expiration Date Model / Serial / Lot [employer] [id number] Cotton-Young 10fr 7cm Taper Tip Guidewire Proximal Distal Flap - [id number] Implanted:Qty: 1 on 08/04/2021 by Kenneth Loya MD at [facility] Explanted:Qty: 1 on 08/30/2021 at [facility] Stent N/A: Bile Duct [employer] 01/28/2024 [id number] / / [id number] Axios 10 X 10 Stent Delivery System [id number] - [id number] Implanted:Qty: 1 on 08/04/2021 by Kenneth Loya MD at [facility] Explanted:Qty: 1 on 08/30/2021 at [facility] Stent N/A: Bile Duct [employer] 10/13/2022 [id number] / / [id number] [employer] Geenen 7fr 7cm Positioning Sleeve Push Catheter Guidewire [id number] - [id number] Implanted:Qty: 1 on 08/30/2021 at [facility] Explanted:Qty: 1 on 11/01/2021 by Kenneth Loya MD at [facility] Stent N/A: Pancreas [employer] 11/06/2023 [id number] / / [id number] [employer] 10fr 5cm Biliary Stent [id number] - [id number] Implanted:Qty: 1 on 01/26/2022 by Kenneth Loya MD at [facility] Explanted:Qty: 1 on 04/06/2022 by Kenneth Loya MD at [facility] Stent [employer] 11/16/2023 [id number] / / [id number] [employer] Advanix Naviflex 7fr 9cm Radiopaque [place] Endo Marker Color Coded [id number] - [id number] Implanted:Qty: 1 on 01/26/2022 by Kenneth Loya MD at [facility] Explanted:Qty: 1 on 04/06/2022 at [facility] Stent [employer] 04/16/2023 [id number] / / [id number] [employer] Advanix 8.5fr 7cm Rapid Exchange Temporary [place] Bend Stent [id number] - [id number] Implanted:Qty: 1 on 04/06/2022 by Kenneth Loya MD at [facility] Explanted:Qty: 1 on 07/06/2022 by Kenneth Loya MD at [facility] Stent N/A: Pancreas [employer] 10/26/2023 [id number] / / [id number] [employer] Advanix 8.5fr 7cm Rapid Exchange Temporary [place] Stent [id number] - [id number] Implanted:Qty: 1 on 04/06/2022 by Kenneth Loya MD at [facility] Explanted:Qty: 1 on 07/06/2022 by Kenneth Loya MD at [facility] Stent N/A: Pancreas [employer] 10/26/2023 [id number] / / [id number] [employer] 10fr 5cm Biliary Stent [id number] - [id number] Implanted:Qty: 1 on 09/08/2022 by Kenneth Loya MD at [facility] Explanted:Qty: 1 on 11/03/2022 by Kenneth Loya MD at [facility] Stent N/A: Bile Duct [employer] 08/07/2024 [id number] / / [id number] [employer] 10fr 5cm Biliary Stent [id number] - [id number] Implanted:Qty: 1 on 09/08/2022 by Kenneth Loya MD at [facility] Explanted:Qty: 1 on 11/03/2022 by Kenneth Loya MD at [facility] Stent N/A: Bile Duct [employer] 05/04/2024 [id number] / / [id number] [employer] Cartwright Flexi-Stent 7fr 7cm Small Pigtail Flexible .035in Stent 6574 - [id number] Implanted:Qty: 1 on 09/08/2022 by Kenneth Loya MD at [facility] Explanted:Qty: 1 on 11/03/2022 by Kenneth Loya MD at [facility] Stent N/A: Bile Duct [employer] 05/28/2027 [id number] / / [id number] [employer] Geenen 8.5fr 9cm Drain Obstructed Positioning Sleeve Pushing [id number] - [id number] Implanted:Qty: 1 on 04/06/2022 by Kenneth Loya MD at [facility] Explanted:Qty: 1 on 01/05/2023 by Kenneth Loya MD at [facility] Stent N/A: Pancreas [employer] 05/03/2024 [id number] / / [id number] [employer] [facility] Cartwright Flexi-Stent 7fr 7cm Small Pigtail Flexible .035in Stent 6574 - [id number] Implanted:Qty: 1 on 11/03/2022 by Kenneth Loya MD at [facility] Explanted:Qty: 1 on 01/05/2023 by Kenneth Loya MD at [facility] Stent N/A: Pancreas [employer] 05/28/2027 [id number] / / [id number] [employer] 10fr 5cm Biliary Stent [id number] - [id number] Implanted:Qty: 1 on 11/03/2022 by Kenneth Loya MD at [facility] Explanted:Qty: 1 on 01/05/2023 at [facility] Stent N/A: Bile Duct [employer] 08/15/2024 [id number] / / [id number] [employer] Cotton-Young 10fr 5cm Taper Tip Soft Proximal Distal Flap Gentle [id number] - [id number] Implanted:Qty: 1 on 11/03/2022 by Kenneth Loya MD at [facility] Explanted:Qty: 1 on 01/05/2023 by Kenneth Loya MD at [facility] Stent N/A: Bile Duct [employer] 08/10/2025 [id number] / / [id number] [employer] Cartwright Flexi-Stent 4fr 7cm Small Pigtail Flexible .025in Stent 6544 - [id number] Implanted:Qty: 1 on 01/05/2023 by Kenneth Loya MD at [facility] Explanted:Qty: 1 on 06/02/2023 at [facility] Stent N/A: Pancreas [employer] 07/27/2027 [id number] / / [id number] Description:Not present on t his procedure [employer] 10fr 7cm Biliary Stent [id number] - [id number] Implanted:Qty: 1 on 01/05/2023 by Kenneth Loya MD at [facility] Explanted:Qty: 1 on 06/02/2023 by Jreo Soto MD at [facility] Stent N/A: Bile Duct [employer] 12/13/2024 [id number] / / [id number] [employer] 10fr 7cm Biliary Stent [id number] - [id number] Implanted:Qty: 1 on 01/05/2023 by Kenneth Loya MD at [facility] Explanted:Qty: 1 on 06/02/2023 by Jero Soto MD at [facility] Stent N/A: Bile Duct [employer] 12/13/2024 [id number] / / [id number] [employer] 10fr 5cm Biliary Double Pigtail Stent [id number] - [id number] Implanted:Qty: 1 on 06/02/2023 by Kenneth Loya MD at [facility] Explanted:Qty: 1 on 09/21/2023 by Kenneth Loya MD at [facility] Stent N/A: Bile Duct [employer] 04/30/2025 [id number] / / [id number] [employer] 10fr 5cm Biliary Double Pigtail Stent [id number] - [id number] Implanted:Qty: 1 on 06/02/2023 by Kenneth Loya MD at [facility] Explanted:Qty: 1 on 09/21/2023 by Kenneth Loya MD at [facility] Stent N/A: Bile Duct [employer] 04/30/2025 [id number] / / [id number] [employer] 10fr 5cm Biliary Stent [id number] - [id number] Implanted:Qty: 1 on 06/02/2023 by Kenneth Loya MD at [facility] Explanted:Qty: 1 on 09/21/2023 by Kenneth Loya MD at [facility] Stent N/A: Bile Duct [employer] 02/28/2025 [id number] / / [id number] [employer] 10fr 5cm Biliary Double Pigtail Stent [id number] - [id number] Implanted:Qty: 1 on 06/02/2023 by Kenneth Loya MD at [facility] Explanted:Qty: 1 on 09/21/2023 by Kenneth Loya MD at [facility] Stent N/A: Bile Duct [employer] 04/30/2025 [id number] / / [id number] [employer] [id number] Advanix 10fr 5cm Rapid Exchange Temporary [place] Stent - [id number] Implanted:Qty: 1 on 06/18/2021 by Kenneth Loya MD at [facility] Explanted:Qty: 1 on 08/30/2021 at [facility] [employer] 06/30/2022 [id number] / / [id number] Description:Removed prior [employer] Advanix Od10 Fr L7 Cm 1; Temporary Duodenal Bend Stent Biliary Pl [id number] - [id number] Implanted:Qty: 1 on 08/30/2021 at [facility] Explanted:Qty: 1 on 11/01/2021 by Kenneth Loya MD at [facility] N/A: Bile Duct [employer] 06/25/2022 [id number] / / [id number] [employer] Advanix Naviflex 10fr 9cm Lead Joana Radiopaque Flexible [id number] - [id number] Implanted:Qty: 1 on 11/01/2021 by Kenneth Loya MD at [facility] Explanted:Qty: 1 on 01/05/2022 by Contreras Girard MD at [facility] N/A: Pancreas [employer] 07/18/2022 [id number] / / [id number] 10fr 5cm Biliary Stent [id number] - [id number] Implanted:Qty: 1 on 11/01/2021 by Kenneth Loya MD at [facility] Explanted:Qty: 1 on 01/05/2022 at [facility] N/A: Bile Duct [employer] 08/12/2023 [id number] / / [id number] 10fr 7cm Biliary Stent [id number] - [id number] Implanted:Qty: 1 on 11/01/2021 by Kenneth Loya MD at [facility] Explanted:Qty: 1 on 01/05/2022 by Contreras Girard MD at [facility] N/A: Bile Duct [employer] 08/23/2023 [id number] / / [id number] [employer] Cotton-Young 10fr 5cm Taper Tip Soft Proximal Distal Flap Gentle [id number] - [id number] Implanted:Qty: 1 on 01/05/2022 by Contreras Girard MD at [facility] Explanted:Qty: 1 on 01/26/2022 at [facility] N/A: Bile Duct [employer] 05/07/2022 [id number] / / [id number] [employer] Advanix 7fr 7cm Lead Joana Radiopaque [place] Endo Marker Drainage [id number] - [id number] Implanted:Qty: 1 on 07/06/2022 by Kenneth Loya MD at [facility] Explanted:Qty: 1 on 09/08/2022 by Kenneth Loya MD at [facility] N/A: Pancreas [employer] 05/03/2023 [id number] / / [id number] [employer] 10fr 5cm Biliary Stent [id number] - [id number] Implanted:Qty: 1 on 07/06/2022 by Kenneth Loya MD at [facility] Explanted:Qty: 1 on 09/08/2022 by Kenneth Loya MD at [facility] N/A: Bile Duct [employer] 12/24/2022 [id number] / / [id number] [employer] 10fr 5cm Biliary Stent [id number] - [id number] Implanted:Qty: 1 on 07/06/2022 by Kenneth Loya MD at [facility] Explanted:Qty: 1 on 09/08/2022 by Kenneth Loya MD at [facility] N/A: Bile Duct [employer] 11/16/2023 [id number] / / [id number] [employer] 10fr 7cm Biliary Stent [id number] - [id number] Explanted:Qty: 1 on 04/10/2023 by John De Anda MD at [facility] [employer] [id number] 12/13/2024 [id number] / / [id number] Description:Unable to place despite multiple attempts Procedures Procedure Name Priority Date/Time Associated Diagnosis Comments EGFR Routine 09/14/2024 7:03 AM CDT DIFFERENTIAL AUTO Routine 09/14/2024 7:0 3 AM CDT COMPREHENSIVE METABOLIC PANEL Routine 09/14/2024 7:03 AM CDT CBC WITH AUTO DIFFERENTIAL Routine 09/14/2024 7:[address] ABDOMEN PELVIS W CONTRAST ED 09/13/2024 4:05 PM CDT DRUGS OF ABUSE SCREEN, URINE WITHOUT CONFIRMATION STAT 09/13/2024 1:26 PM CDT URINALYSIS AND REFLEX TO MICROSCOPIC AND CULTURE STAT 09/13/2024 1:26 PM CDT LIPASE STAT 09/13/2024 1:24 PM CDT EGFR STAT 09/13/2024 1:24 PM CDT DIFFERENTIAL AUTO STAT 09/13/2024 1:2 4 PM CDT ETHANOL STAT 09/13/2024 1:24 PM CDT THYROID FUNCTION CASCADE STAT 09/13/2024 1:24 PM CDT COMPREHENSIVE METABOLIC PANEL STAT 09/13/2024 1:24 PM CDT CBC WITH AUTO DIFFERENTIAL STAT 09/13/2024 1:24 PM CDT COVID-19 CORONAVIRUS RNA STAT 09/13/2024 1:24 PM CDT POCT GLUCOSE DEVICE Routine 08/21/2024 7 :30 [...] P24 ANTIGEN Timed 08/15/2024 11:28 PM CDT from Last 3 Months Results * eGFR (09/14/2024 7:03 AM CDT) Pathologist [facility] eGFR >90 >=60 mL/min/1. 73 m2 [...] interpretive data was last reviewed 2021. Blood 09/14/2024 7:03 AM CDT 09/14/2024 7:07 AM CDT Melyssa Anderson MD LAB BLOOD ORDERABLES Final Result [facility] [address] [facility] Department [place] [address] * Differential, auto (09/14/2024 7:03 AM CDT) Pathologist [facility] Neutrophil abs 2.37 1.50 - 6.50 K/cumm Imm gran abs 0.01 0.00 - 0.10 K/cumm [facility] Lymphocyte abs 1.29 0.80 - 3.30 K/cumm [facility] Monocyte abs 0.44 0.20 - 0.80 K/cumm [facility] Eosinophil abs 0.23 0.00 - 0.50 K/cumm [facility] Basophil abs 0.03 0.00 - 0.10 K/cumm [facility] Neutrophil pct 54.2 % [facility] Comment: Interpretive Data Percent cell count reference ranges are not reported, since discordance with absolute values may lead to misinterpretation of CBC data. Current Interpretive Data was last revised on 2017. Imm gran pct 0.2 % [facility] Comment: Interpretive Data Percent cell count reference ranges are not reported, since discordance with absolute values may lead to misinterpretation of CBC data. Current Interpretive Data was last revised on 2017. Lymphocyte pct 29.5 % [facility] Comment: Interpretive Data Percent cell count reference ranges are not reported, since discordance with absolute values may lead to misinterpretation of CBC data. Current Interpretive Data was last revised on 2017. Monocyte pct 10.1 % [facility] Comment: Interpretive Data Percent cell count reference ranges are not reported, since discordance with absolute values may lead to misinterpretation of CBC data. Current Interpretive Data was last revised on 2017. Eosinophil pct 5.3 % [facility] Comment: Interpretive Data Percent cell count reference ranges are not reported, since discordance with absolute values may lead to misinterpretation of CBC data. Current Interpretive Data was last revised on 2017. Basophil pct 0.7 % [facility] Comment: Interpretive Data Percent cell count reference ranges are not reported, since discordance with absolute values may lead to misinterpretation of CBC data. Current Interpretive Data was last revised on 2017. Blood 09/14/2024 7:03 AM CDT 09/14/2024 7:07 AM CDT Melyssa Anderson MD LAB BLOOD ORDERABLES Final Result [facility] [address] [facility] Department [place] [address] * (ABNORMAL) CBC with auto differential (09/14/2024 7:03 AM CDT) WBC 4.37 3.80 - 9.90 K/cumm Hgb 10.8(L) 13.0 - 17.5 g/dL [facility] Hct 33.6(L) 38.9 - 50.3 % [facility] Plt 208 150 - 400 K/cumm [facility] MPV 8.9(L) 9.1 - 12.3 fL [facility] RBC 3.66(L) 4.30 - 5.80 M/cumm [facility] MCV 91.8 81.3 - 96.4 fL [facility] MCH 29.5 27.1 - 33.3 pg [facility] MCHC 32.1(L) 32.3 - 35.7 g/dL [facility] RDW CV 17.2(H) 11.1 - 14.9 % [facility] RDW SD 58.0(H) 35.7 - 48.1 fL [facility] NRBC abs 0.00 0.00 - 0.01 K/cumm [facility] Blood 09/14/2024 7:03 AM CDT 09/14/2024 7:07 AM CDT us Melyssa Anderson MD LAB BLOOD ORDERABLES Final Result Performing Organization Address City/State/[facility] Co de Phone Number [facility] [address] [facility] Department [place] [address] * (ABNORMAL) Comprehensive metabolic panel (09/14/2024 7:03 AM CDT) Sodium 138 135 - 145 mmol/L Potassium, pl 3.3 3.3 - 4.9 mmol/L [facility] Chloride 107 97 - 110 mmol/L [facility] CO2 21(L) 22 - 32 mmol/L [facility] Anion gap 10 2 - 15 mmol/L [facility] BUN 7 6 - 25 mg/dL [facility] Creatinine 0.64(L) 0.80 - 1.30 mg/dL [facility] Glucose 99 70 - 199 mg/dL [facility] Comment: Interpretive Data Fasting glucose >/= 126 [...] 2022. Calcium 9.1 8.5 - 10.3 mg/dL [facility] Bilirubin, total 0.4 0.1 - 1.2 mg/dL [facility] Protein, pl 6.3(L) 6.5 - 8.5 g/dL [facility] Albumin 3.7 3.5 - 5.0 g/dL [facility] Alk phos 71 40 - 130 Units/L [facility] ALT 15 7 - 55 Units/L [facility] AST 18 10 - 50 Units/L [facility] Blood 09/14/2024 7:03 AM CDT 09/14/2024 7:07 AM CDT us Nilupa Jono Anderson MD LAB BLOOD ORDERABLES Final Result Performing Organization Address City/State/[facility] Co de Phone Number [facility] [address] [facility] Department [place] [address] * CT Abdomen Pelvis W Contrast (09/13/2024 4:05 PM CDT) Anatomical Region Laterality Modality Body N/A Computed Tomogra phy 09/13/2024 4:33 PM CDT Narrative 09/13/2024 4:54 PM CDT EXAM DESCRIPTION: CT ABDOMEN PELVIS W CONTRAST REASON FOR STUDY: RUQ pain, LUQ pain, history of chronic pancreatitis Pt presents requesting detox program. States to daily drinker. States to drinking at least 12 shooters daily. States to no ETOH today or yesterday. Hx: HTN, hernia repair, appendectomy TECHNIQUE: CT scan of the abdomen and pelvis performed with intravenous and without oral contrast using helical scanning technique with dynamic intravenous contrast injection. Reconstructed coronal and sagittal MPR images reviewed. All images stored on PACS. Automated exposure control was used as a dose optimization technique for this examination. CONTRAST TYPE/DOSE: 100mL of IOVERSOL 350 MG IODINE/ML INTRAVENOUS SYRINGE injected via intravenous COMPARISON: 08/16/2024, 08/09/2024, 07/31/2024, 02/15/2024. FINDINGS: LOWER CHEST: The lung bases reveal scattered atelectatic changes. No pleural or pericardial effusion. LIVER: The liver is enlarged, similar to the previous examination. There is no discrete hepatic mass. GALLBLADDER: The gallbladder is distended. Mild prominence of the gallbladder wall is similar to the previous examination. BILE DUCTS: There is intrahepatic biliary dilatation, similar to the previous study. This is secondary to underlying narrowing of the common duct associated with inflammatory changes of pancreatitis at the aileen hepatis. SPLEEN: The spleen is slightly decreased in size compared to the previous examination, measuring 11.6 cm in maximum dimension on axial image 41 compared to 13.2 cm on the prior study. No discrete splenic mass. There is narrowing of the confluence of the superior mesenteric vein and the splenic vein at the portal confluence, and narrowing of the portal vein, which is best appreciated on axial images 44-55. The portal vein is opacified with contrast on this examination. PANCREAS: There is extensive fat stranding demonstrated in the peripancreatic space, most evident about the head, neck and proximal body. Overall, the location of inflammation is similar to the most recent prior study, though the stranding has improved slightly compared to the prior examination. The previously documented 3.6 x 2.1 cm collection is not well demonstrated on this examination. A more phlegmonous appearance is noted on the current study as visualized on image number 48. There are calcifications again documented at the uncinate process of the pancreas. There is pancreatic ductal dilatation, which is similar to the prior study. No new loculated collection is noted. There is diminished enhancement of the head and neck of the pancreas in comparison to the body of the pancreas compatible with a component of pancreatic necrosis. There is no definitive mass at the head of the pancreas. The superior mesenteric vein does appear to be patent, though narrowed on this examination. Overall the appearance is slightly improved compared to the previous examination. The portal veins are patent. There is dilation of the main pancreatic duct within the body of the pancreas. There may be underlying stricture in the proximal main pancreatic duct at the head of the pancreas, not well delineated on this study, similar to previous studies. There is a calcification in the region of the pancreatic duct just proximal to the area of dilation. ADRENALS: Mild nodular thickening of the adrenal glands. KIDNEYS/URINARY TRACT: The kidneys are symmetric in size. No suspicious cystic or solid mass within either kidney. No hydronephrosis or hydroureter. The urinary bladder is unremarkable. GI: The stomach is somewhat thick walled, accentuated by decompression. There is some wall thickening and stranding persisting about the gastric antrum, pylorus and duodenal, though improved compared to the prior examination. This is likely persistent though improving reactive changes from pancreatitis. Small bowel loops are normal in caliber. There is no evidence of obstruction. There is some mild increased stool burden within portions the right hemicolon. The left hemicolon is largely decompressed, limiting evaluation. PERITONEUM: There is no free intraperitoneal air. No generalized free fluid. Scattered mesenteric nodes are mildly prominent, slightly improved from prior examination. RETROPERITONEUM: Retroperitoneal nodes are decreased in size compared to the prior examination. No new adenopathy REPRODUCTIVE: The prostate gland is grossly unremarkable. VASCULATURE: The abdominal aorta is normal in caliber. There are vascular changes associated with the underlying pancreatitis described in detail above. There are vascular collaterals demonstrated within the left upper quadrant along the lesser and greater curvatures of the stomach. There are collateral vessels at the aileen hepatis. MUSCULOSKELETAL: There is no acute osseous abnormality. Lumbar and thoracic spondylosis with degenerative disc disease. OTHER: No other abnormality. IMPRESSION: 1. Redemonstration of acute on chronic pancreatitis, with some interval improvement in appearance compared to the prior study on 08/16/2024. 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 The previously documented peripancreatic fluid collection is not discretely demonstrated on this study. There is now a more phlegmonous appearance of this region, with no new loculated fluid collection. Overall, the stranding about the pancreas, distal stomach and duodenal has improved from prior study. 2. 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 On prior study occlusion of the portal vein, portal confluence and splenic vein was noted. Collaterals in the region of the aileen hepatis as well as in the left upper quadrant are again noted. 3. Gallbladder distended, similar in appearance compared to the prior examination. Some intrahepatic biliary dilatation, most likely related to a narrowing of the common bile duct at the aileen hepatis secondary to the underlying changes of pancreatitis. Appearance is similar to the previous examination. 4. Improved splenomegaly. 5. Additional findings as above THIS IS AN ELECTRONICALLY VERIFIED FINAL REPORT 09/13/2024 4:54 PM - Electronically signed by Ale Morocho M.D. TW T: Report ID: [id number] Reading Location: [id number] Procedure Note Ale Morocho MD - 09/13/2024 EXAM DESCRIPTION: CT ABDOMEN PELVIS W CONTRAST REASON FOR STUDY: RUQ pain, LUQ pain, history of chronic pancreatitis Pt presents requesting detox program. States to daily drinker. States to drinking at least 12 shooters daily. States to no ETOH today oryesterday. Hx: HTN, hernia repair, appendectomy TECHNIQUE: CT scan of the abdomen and pelvis performed with intravenousand without oral contrast using helical scanning technique with dynamic intravenous contrast injection. Reconstructed coronal and sagittal MPRimages reviewed. All images stored on PACS. Automated exposure control was usedas a dose optimization technique for this examination. CONTRAST TYPE/DOSE: 100mL of IOVERSOL 350 MG IODINE/ML INTRAVENOUSSYRINGE injected via intravenous COMPARISON: 08/16/2024, 08/09/2024, 07/31/2024, 02/15/2024. FINDINGS: LOWER CHEST: The lung bases reveal scattered atelectaticchanges. No pleural or pericardial effusion. LIVER: The liver is enlarged, similar to the previous examination.There is no discrete hepatic mass. GALLBLADDER: The gallbladder is distended. Mild prominence of the gallbladder wall is similar to the previous examination. BILE DUCTS: There is intrahepatic biliary dilatation, similar to the previous study. This is secondary to underlying narrowing of the commonduct associated with inflammatory changes of pancreatitis at the aileen hepatis. SPLEEN: The spleen is slightly decreased in size compared to theprevious examination, measuring 11.6 cm in maximum dimension on axial image 41compared to 13.2 cm on the prior study. No discrete splenic mass. There isnarrowing of the confluence of the superior mesenteric vein and the splenic vein atthe portal confluence, and narrowing of the portal vein, which is bestappreciated on axial images 44-55. The portal vein is opacified with contrast on this examination. PANCREAS: There is extensive fat stranding demonstrated in the peripancreatic space, most evident about the head, neck and proximal body. Overall, the location of inflammation is similar to the most recent prior study, though the stranding has improved slightly compared to the prior examination. The previously documented 3.6 x 2.1 cm collection is notwell demonstrated on this examination. A more phlegmonous appearance is notedon the current study as visualized on image number 48. There arecalcifications again documented at the uncinate process of the pancreas. There ispancreatic ductal dilatation, which is similar to the prior study. No new loculated collection is noted. There is diminished enhancement of the head and neck of the pancreas in comparison to the body of the pancreas compatible with a component of pancreatic necrosis. There is no definitive mass at the head of thepancreas. The superior mesenteric vein does appear to be patent, though narrowed on this examination. Overall the appearance is slightly improved compared tothe previous examination. The portal veins are patent. There is dilation ofthe main pancreatic duct within the body of the pancreas. There may beunderlying stricture in the proximal main pancreatic duct at the head of thepancreas, not well delineated on this study, similar to previous studies. There robert calcification in the region of the pancreatic duct just proximal to thearea of dilation. ADRENALS: Mild nodular thickening of the adrenal glands. KIDNEYS/URINARY TRACT: The kidneys are symmetric in size. No suspicious cystic or solid mass within either kidney. No hydronephrosis orhydroureter. The urinary bladder is unremarkable. GI: The stomach is somewhat thick walled, accentuated by decompression. There is some wall thickening and stranding persisting about the gastric antrum, pylorus and duodenal, though improved compared to the prior examination. This is likely persistent though improving reactive changesfrom pancreatitis. Small bowel loops are normal in caliber. There is noevidence of obstruction. There is some mild increased stool burden within portionsthe right hemicolon. The left hemicolon is largely decompressed, limiting evaluation. PERITONEUM: There is no free intraperitoneal air. No generalized free fluid. Scattered mesenteric nodes are mildly prominent, slightly improved from prior examination. RETROPERITONEUM: Retroperitoneal nodes are decreased in size compared tothe prior examination. No new adenopathy REPRODUCTIVE: The prostate gland is grossly unremarkable. VASCULATURE: The abdominal aorta is normal in caliber. There arevascular changes associated with the underlying pancreatitis described in detailabove. There are vascular collaterals demonstrated within the left upperquadrant along the lesser and greater curvatures of the stomach. There arecollateral vessels at the aileen hepatis. MUSCULOSKELETAL: There is no acute osseous abnormality. Lumbar andthoracic spondylosis with degenerative disc disease. OTHER: No other abnormality. IMPRESSION: 1. Redemonstration of acute on chronic pancreatitis, with some interval improvement in appearance compared to the prior study on 08/16/2024.There is a component of pancreatic necrosis suspected involving the head and neckof the pancreas. The previously documented peripancreatic fluid collectionis not discretely demonstrated on this study. There is now a morephlegmonous appearance of this region, with no new loculated fluid collection.Overall, the stranding about the pancreas, distal stomach and duodenal has improved from prior study. 2. 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 On prior study occlusion of the portal vein, portal confluence and splenic vein was noted. Collaterals in the region of theporta hepatis as well as in the left upper quadrant are again noted. 3. Gallbladder distended, similar in appearance compared to the prior examination. Some intrahepatic biliary dilatation, most likely related toa narrowing of the common bile duct at the aileen hepatis secondary to the underlying changes of pancreatitis. Appearance is similar to the previous examination. 4. Improved splenomegaly. 5. Additional findings as above THIS IS AN ELECTRONICALLY VERIFIED FINAL REPORT 09/13/2024 4:54 PM - Electronically signed by Ale Morocho M.D. TW T: Report ID: [id number] Reading Location: [place] [address] PROCEDURES Maisha l Result * (ABNORMAL) Urinalysis reflex to microscopic and culture Urine (09/13/2024 1:26 PM CDT) Color, ur Yellow Yellow Clarity, ur Clear Clear [facility] Specific gravity, ur 1.025 1.003 - 1.030 [facility] pH, urine 6.5 [facility] Comment: Interpretive Data U rine pH is affected by diet, medications, systemic acid-base disturbances, and renal tubular function. pH may affect urinary stone formation. For example, urine pH below 6.0 may help reduce the tendency for calcium phosphate stones and pH greater than 6.0 may reduce the tendency for uric acid stone formation. Source: [facility] Current Interpretive Data was last revised on 2017 Protein, ur ql Negative Negative [facility] Glucose, ur ql Negative Negative [facility] Ketones, ur Trace Negative [facility] Bilirubin, ur Negative Negative [facility] Blood, ur Negative Negative [facility] Urobilinogen, ur 2.0(A) <2.0 mg/dL [facility] Nitrite, ur Negative Negative [facility] Leukocyte esterase, ur Negative Negative [facility] UA reflex comment Reflex conditions for microscopic UA and culture not met. [facility] Urine 09/13/2024 1:26 PM CDT 09/13/2024 1:30 PM CDT Melyssa jimenez MD LAB MICROBIOLOGY - GENERAL ORDERABLES Final Result [facility] [address] [facility] Department [place] [address] * (ABNORMAL) Drugs of Abuse Screen, Urine without Confirmation (09/13/2024 1:26 PM CDT) Pathologist [facility] Amphetamine, ur Not Detected CutOff 500ng/mL Comment: Interpretive Data - Amphetamines: Samples containing greater than 500 ng/mL d-methamphetamine or other cross-reacting amphetamine compounds are reported as positive. Amphetamine immunoassays are subject to significant false positive rates due to cross-reactivity of non-amphetamine drugs. Confirmatory testing required for definitive results. Current Interpretive Data was last reviewed 2022. Barbiturates, ur Not Detected CutOff 200ng/mL [facility] Comment: Interpretive Data - Barbiturates: Samples containing greater than 200 ng/mL secobarbital or other cross-reacting barbiturate compounds are reported as positive. False positive and false negative results are possible. Confirmatory testing required for definitive results. Current Interpretive Data was last reviewed 2022. Benzodiazepines, ur Screen Positive, presumptive (A) CutOff 100ng/mL [facility] Comment: Interpretive Data - Benzodiazepines: Samples containing greater than 100 ng/mL nordiazepam or other cross-reacting compounds are reported as positive. False positive and false negative results are possible. Confirmatory testing required for definitive results. Current Interpretive Data was last reviewed 2022. Cannabinoids, ur Screen Positive, presumptive (A) CutOff 50 ng/mL [facility] Comment: Interpretive Data - Cannabinoids: Samples containing greater than 50 ng/mL delta-9 THC -COOH or other cross- reacting compounds are reported as positive. False positive and false negative results are possible. Confirmatory testing required for definitive results. Current Interpretive Data was last reviewed 2022. Cocaine, ur Not Detected CutOff 150ng/mL [facility] Comment: Interpretive Data - Cocaine: Samples containing greater than 150 ng/mL benzoylecgonine or other cross- reacting compounds are reported as positive. False positive and false negative results are possible. Confirmatory testing required for definitive results. Current Interpretive Data was last reviewed 2022. Fentanyl, Ur Not Detected CutOff 5 ng/mL [facility] Comment: Interpretive Data - Fentanyl: Samples containing greater than 5 ng/mL norfentanyl, fentanyl, or other cross-reacting fentanyl compounds are reported as positive. False positive and false negative results are possible. Confirmatory testing required for definitive results. Current Interpretive Data was last reviewed 2023. Methadone, ur Not Detected CutOff 300ng/mL [facility] Comment: Interpretive Data - Methadone: Samples containing greater than 300 ng/mL d,l-methadone or other cross-reacting compounds are reported as positive. False positive and false negative results are possible. Confirmatory testing required for definitive results. Current Interpretive Data was last reviewed 2022. Opiates, ur Not Detected CutOff 300ng/mL [facility] Comment: Interpretive Data - Opiates: Samples containing greater than 300 ng/mL morphine or other cross-reacting compounds are reported as positive. False positive and false negative results are possible. Confirmatory testing required for definitive results. Current Interpretive Data was last reviewed 2022. Oxycodone, ur Not Detected CutOff 100ng/mL [facility] Comment: Interpretive Data - Oxycodone: Samples containing greater than 100 ng/mL oxycodone or other cross-reacting compounds are reported as positive. False positive and false negative results are possible. Confirmatory testing required for definitive results. Current Interpretive Data was last reviewed 2022. Phencyclidine, ur Not Detected CutOff 25 ng/mL [facility] Comment: Interpretive Data - Phencyclidine: Samples containing greater than 25 ng/mL phencyclidine or other cross-reacting compounds are reported as positive. False positive and false negative results are possible. Confirmatory testing required for definitive results. Current Interpretive Data was last reviewed 2022. Urine Creatinine 286 mg/dL [facility] Comment: Interpretive Data Urine Creatinine: < 10 mg/dL is extremely dilute = or > 10 but < 20 mg/dL is dilute = or > 20 mg/dL is normal Current Interpretive Data was last revised on 2017. Urine 09/13/2024 1:26 PM CDT 09/13/2024 1:30 PM CDT Narrative [facility] - 09/13/2024 1:56 PM CDT Drug of Abuse screening is performed by immunoassay for medical purposes only. This is not to be used for Pain Management purposes. Melyssa Anderson MD LAB URINE ORDERABLES Final Result [facility] [address] [facility] Department [place] [address] * COVID-19 Coronavirus RNA Nasopharyngeal (09/13/2024 1:24 PM CDT) COVID-19 RNA Negative Negative Nasopharyngeal 09/13/2024 1: 24 PM CDT 09/13/2024 1:29 PM CDT Narrative [facility] - 09/13/2024 2:05 PM CDT Is the patient experiencing any symptoms consistent with COVID (eg. Fever, cough, shortness of breath)?->No What is the reason for testing?->Screening for semi-private room placement Interpretive data Testing performed by [facility]. This test is performed using the [employer] Xpert Xpress CoV-2 plus assay. This is a real-time RT-PCR test intended for the qualitative detection of nucleic acid from the SARS-CoV-2. This assay has been cleared by the [place] Food and Drug administration. The performance characteristics have been verified by the [facility]. Results must be considered in the clinical context, and a negative result does not rule out infection. Interpretive data last revised 2023. Interpretive data Testing performed by [facility]. This test is performed using the [employer] Xpert Xpress CoV-2 plus assay. This is a real-time RT-PCR test intended for the qualitative detection of nucleic acid from the SARS-CoV-2. This assay has been cleared by the [place] Food and Drug administration. The performance characteristics have been verified by the [facility]. Results must be considered in the clinical context, and a negative result does not rule out infection. Interpretive data last revised 2023. Melyssa jimenez MD LAB MICROBIOLOGY - GENERAL ORDERABLES Final Result [facility] [address] [facility] Department [place] [address] * eGFR (09/13/2024 1:24 PM CDT) eGFR >90 >=60 mL/min/1. 73 [...] interpretive data was last reviewed 2021. Blood 09/13/2024 1:24 PM CDT 09/13/2024 1:29 PM CDT Melyssa Anderson MD LAB BLOOD ORDERABLES Final Result [facility] [address] [facility] Department [place] [address] * Differential, auto (09/13/2024 1:24 PM CDT) Neutrophil abs 4.79 1.50 - 6.50 K/cumm Imm gran abs 0.01 0.00 - 0.10 K/cumm [facility] Lymphocyte abs 1.49 0.80 - 3.30 K/cumm [facility] Monocyte abs 0.69 0.20 - 0.80 K/cumm [facility] Eosinophil abs 0.12 0.00 - 0.50 K/cumm [facility] Basophil abs 0.06 0.00 - 0.10 K/cumm [facility] Neutrophil pct 67.0 % [facility] Comment: Interpretive Data Percent cell count reference ranges are not reported, since discordance with absolute values may lead to misinterpretation of CBC data. Current Interpretive Data was last revised on 2017. Imm gran pct 0.1 % [facility] Comment: Interpretive Data Percent cell count reference ranges are not reported, since discordance with absolute values may lead to misinterpretation of CBC data. Current Interpretive Data was last revised on 2017. Lymphocyte pct 20.8 % [facility] Comment: Interpretive Data Percent cell count reference ranges are not reported, since discordance with absolute values may lead to misinterpretation of CBC data. Current Interpretive Data was last revised on 2017. Monocyte pct 9.6 % [facility] Comment: Interpretive Data Percent cell count reference ranges are not reported, since discordance with absolute values may lead to misinterpretation of CBC data. Current Interpretive Data was last revised on 2017. Eosinophil pct 1.7 % [facility] Comment: Interpretive Data Percent cell count reference ranges are not reported, since discordance with absolute values may lead to misinterpretation of CBC data. Current Interpretive Data was last revised on 2017. Basophil pct 0.8 % [facility] Comment: Interpretive Data Percent cell count reference ranges are not reported, since discordance with absolute values may lead to misinterpretation of CBC data. Current Interpretive Data was last revised on 2017. Blood 09/13/2024 1:24 PM CDT 09/13/2024 1:29 PM CDT Melyssa Anderson MD LAB BLOOD ORDERABLES Final Result Performing Organization Address [facility] de Phone Number [address] [address] * Thyroid Function Evans (09/13/2024 1:24 PM CDT) [facility] TSH 1.33 0.30 - 4.20 mcIUnit/mL Blood 09/13/2024 1:24 PM CDT 09/13/2024 1:29 PM CDT Melyssa Anderson MD LAB BLOOD ORDERABLES Final Result Performing Organization Address [facility] de Phone Number [address] [address] * (ABNORMAL) CBC with auto differential (09/13/2024 1:24 PM CDT) [facility] WBC 7.16 3.80 - 9.90 K/cumm Hgb 10.9(L) 13.0 - 17.5 g/dL [facility] Hct 33.1(L) 38.9 - 50.3 % [facility] Plt 270 150 - 400 K/cumm [facility] MPV 9.4 9.1 - 12.3 fL [facility] RBC 3.65(L) 4.30 - 5.80 M/cumm [facility] MCV 90.7 81.3 - 96.4 fL [facility] MCH 29.9 27.1 - 33.3 pg [facility] MCHC 32.9 32.3 - 35.7 g/dL [facility] RDW CV 17.2(H) 11.1 - 14.9 % [facility] RDW SD 57.1(H) 35.7 - 48.1 fL [facility] NRBC abs 0.00 0.00 - 0.01 K/cumm [facility] Blood Venous blood specimen / Unknown 09/13/2024 1:24 PM CDT 09/13/2024 1:29 PM CDT Melyssa Anderson MD LAB BLOOD ORDERABLES Final Result Performing Organization Address [facility] Co de Phone Number [address] [employer] [place] [address] * Lipase (09/13/2024 1:24 PM CDT) Pathologist [facility] Lipase 16 10 - 99 Units/L Comment:Hemolyzed; result mi ght be falsely decreased Blood 09/13/2024 1:24 PM CDT 09/13/2024 1:29 PM CDT Yuridia ROCA LAB BLOOD ORDERABLES F inal Result Performing Organization Address [facility] de Phone Number [address] [address] * Ethanol (09/13/2024 1:24 PM CDT) Pathologist [facility] Ethanol <10 <=10 mg/dL Comment: Interpretive Data Legal limit of intoxication > or = 80 mg/dL Levels > or = 400 mg/dL are potentially TOXIC. Current interpretive data was last revised on 2018. Blood 09/13/2024 1:24 PM CDT 09/13/2024 1:29 PM CDT Melyssa Anderson MD LAB BLOOD ORDERABLES Final Result Performing Organization Address [facility] Co de Phone Number [address] [employer] [place] [address] * (ABNORMAL) Comprehensive metabolic panel (09/13/2024 1:24 PM CDT) Sodium 134(L) 135 - 145 mmol/L Potassium, pl 4.4 3.3 - 4.9 mmol/L [facility] Comment:Hemolyzed; Potassium value may be falsely elevated by as much as 1.0 mmol/L. Suggest redraw and reanalysis. Chloride 101 97 - 110 mmol/L [facility] CO2 19(L) 22 - 32 mmol/L [facility] Anion gap 14 2 - 15 mmol/L [facility] BUN 9 6 - 25 mg/dL [facility] Creatinine 0.68(L) 0.80 - 1.30 mg/dL [facility] Glucose 108 70 - 199 mg/dL [facility] Comment: Interpretive Data Fasting glucose >/= 126 [...] interpretive data was last revised 2022. Calcium 9.8 8.5 - 10.3 mg/dL [facility] Bilirubin, total 0.6 0.1 - 1.2 mg/dL [facility] Protein, pl 7.6 6.5 - 8.5 g/dL [facility] Albumin 4.3 3.5 - 5.0 g/dL [facility] Alk phos 83 40 - 130 Units/L [facility] ALT See Comment 7 - 55 [facility] Comment:Credited; Hemolyzed Specimen AST See Comment 10 - 50 [facility] Comment:Credited; Hemolyzed Specimen Blood 09/13/2024 1:24 PM CDT 09/13/2024 1:29 PM CDT us Melyssa Anderson MD LAB BLOOD ORDERABLES Final Result [facility] [address] [facility] Department [place] [address] * (ABNORMAL) POCT glucose (08/21/2024 7:30 AM CDT) Glucose, POC 206(H) 70 - 199 mg/dL Blood 08/21/2024 7:30 AM CDT 08/21/2024 7:30 AM CDT Arley Cheung MD LAB POCT ORDERABLES - DEVIC E Final Result [facility] [place] [address] * POCT glucose (08/21/2024 5:37 AM CDT) Pathologist [facility] Glucose, POC 113 70 - 199 mg/dL Blood 08/21/2024 5:37 AM CDT 08/21/2024 5:37 AM CDT Arley Cheung MD LAB POCT ORDERABLES - DEVIC E Final Result Performing Organization Address City/[facility]/ZIP Co de [place] [address] * Infection Prevention Lanny auris PCR, surveillance Axilla/Groin (08/21/2024 5:26 AM CDT) [facility] Lanny auris DNA Not Detected Not Detected [facility] Comment: Interpretive Data Testing performed by [facility] using the [employer] johnny [id number] Lanny auris assay. This assay detects DNA from Lanny auris using Real-Time PCR. This assay is laboratory developed and is not cleared by the [place] Food and Drug Administration. The performance characteristics have been verified by the [facility]. Axilla/Groin 08/21/2024 5:26 AM CDT 08/21/2024 6:32 AM CDT Michael Claudio MD LAB MICROBIOLOGY - GENERAL ORDER DELIO Final Result Performing Organization Address [facility] Co de Phone Number [place] [address] [facility] * CP-CRE culture, surveillance Rectal swab (08/21/2024 5:26 AM CDT) Report Final Report: Negative Rectal swab 08/21/2024 5:26 AM CDT 08/21/2024 6:39 AM CDT Narrative [facility] - 08/22/2024 11:59 AM CDT Interpretive Data The screening agar used for the detection of carbapenemase-producing Enterobacterales (CP-CRE) has not been approved by the Food and Drug Administration. The performance characteristics of this medium have been evaluated and verified by the [facility]. This media demonstrates highest sensitivity for KPC and NDM-1 producing isolates. This screening assay is exclusively intended for infection control and surveillance, not for patient diagnosis or treatment purposes. Current interpretive data was last revised on 2023. Michael Claudio MD LAB MICROBIOLOGY - GENERAL ORDER DELIO Final Result Performing Organization Address [facility] de Phone Number [place] [facility] Department [place] [address] * eGFR (08/21/2024 4:48 AM CDT) eGFR [...] Cheung MD LAB BLOOD ORDERABLES Final Result [facility] [place] [address] * Differential, auto (08/21/2024 4:48 AM CDT) Neutrophil abs 6.0 1.5 - 6.5 K/cumm Imm gran abs 0.0 0.0 - 0.1 K/cumm [facility] Lymphocyte abs 1.6 0.8 - 3.3 K/cumm [facility] Monocyte abs 0.7 0.2 - 0.8 K/cumm [facility] Eosinophil abs 0.3 0.0 - 0.5 K/cumm [facility] Basophil abs 0.1 0.0 - 0.1 K/cumm [facility] Neutrophil pct 68.4 % [facility] Comment: Interpretive Data Percent cell count reference ranges are not reported, since discordance with absolute values may lead to misinterpretation of CBC data. Current Interpretive Data was last revised on 2017. Imm gran pct 0.3 % [facility] Comment: Interpretive Data Percent cell count reference ranges are not reported, since discordance with absolute values may lead to misinterpretation of CBC data. Current Interpretive Data was last revised on 2017. Lymphocyte pct 18.6 % [facility] Comment: Interpretive Data Percent cell count reference ranges are not reported, since discordance with absolute values may lead to misinterpretation of CBC data. Current Interpretive Data was last revised on 2017. Monocyte pct 8.2 % [facility] Comment: Interpretive Data Percent cell count reference ranges are not reported, since discordance with absolute values may lead to misinterpretation of CBC data. Current Interpretive Data was last revised on 2017. Eosinophil pct 3.2 % [facility] Comment: Interpretive Data Percent cell count reference ranges are not reported, since discordance with absolute values may lead to misinterpretation of CBC data. Current Interpretive Data was last revised on 2017. Basophil pct 1.3 % [facility] Comment: Interpretive Data Percent cell count reference ranges are not reported, since discordance with absolute values may lead to misinterpretation of CBC data. Current Interpretive Data was last revised on 2017. Blood 08/21/2024 4:48 AM CDT 08/21/2024 5:47 AM CDT us Arley Cheung MD LAB BLOOD ORDERABLES Final Result [facility] Department [place] [address] * (ABNORMAL) CBC with auto differential (08/21/2024 4:48 AM CDT) WBC 8.8 3.8 - 9.9 K/cumm Hgb 10.4(L) 13.0 - 17.5 g/dL [facility] Hct 31.8(L) 38.9 - 50.3 % [facility] Plt 609(H) 150 - 400 K/cumm [facility] MPV 9.3 9.1 - 12.3 fL [facility] RBC 3.53(L) 4.30 - 5.80 M/cumm [facility] MCV 90.1 81.3 - 96.4 fL [facility] MCH 29.5 27.1 - 33.3 pg [facility] MCHC 32.7 32.3 - 35.7 g/dL [facility] RDW CV 17.2(H) 11.1 - 14.9 % [facility] RDW SD 56.5(H) 35.7 - 48.1 fL [facility] NRBC abs 0.00 0.00 - 0.01 K/cumm [facility] Blood 08/21/2024 4:48 AM CDT 08/21/2024 5:47 AM CDT us Arley Cheung MD LAB BLOOD ORDERABLES Final Result Performing Organization Address [facility] Co de Phone Number [facility] [employer] [place] [address] * Phosphorus (08/21/2024 4:48 AM CDT) Phosphorus, pl 3.9 2.3 - 4.5 mg/dL Blood 08/21/2024 4:48 AM CDT 08/21/2024 5:47 AM CDT us Arley Cheung MD LAB BLOOD ORDERABLES Final Result Performing Organization Address [facility] Co de Phone Number [facility] [place] [employer] [place] [address] * Magnesium (08/21/2024 4:48 AM CDT) Pathologist [facility] Magnesium 1.9 1.4 - 2.5 mg/dL Blood 08/21/2024 4:48 AM CDT 08/21/2024 5:47 AM CDT us Arley hCeung MD LAB BLOOD ORDERABLES Final Result Performing Organization Address City/[facility] Co de Phone Number [facility] [employer] [place] [address] * (ABNORMAL) Hepatic function panel (08/21/2024 4:48 AM CDT) Bilirubin, total <0.2 0.1 - 1.2 mg/dL Bilirubin, direct <0.2 0.1 - 0.3 mg/dL [facility] Protein, pl 6.2(L) 6.5 - 8.5 g/dL [facility] Albumin 3.1(L) 3.5 - 5.0 g/dL [facility] Alk phos 87 40 - 130 Units/L [facility] ALT 9 7 - 55 Units/L [facility] AST 18 10 - 50 Units/L [facility] Blood 08/21/2024 4:48 AM CDT 08/21/2024 5:47 AM CDT Arley Cheung MD LAB BLOOD ORDERABLES Final Result [facility] Department [place] [address] * (ABNORMAL) Basic metabolic panel (08/21/2024 4:48 AM CDT) Sodium 139 135 - 145 mmol/L Potassium, pl 4.7 3.3 - 4.9 mmol/L [facility] Chloride 107 97 - 110 mmol/L [facility] CO2 26 22 - 32 mmol/L [facility] Anion gap 6 2 - 15 mmol/L [facility] BUN 5(L) 6 - 25 mg/dL [facility] Creatinine 0.73(L) 0.80 - 1.30 mg/dL [facility] Glucose 115 70 - 199 mg/dL [facility] Comment: Interpretive Data Fasting glucose >/= 126 [...] 2022. Calcium 9.3 8.5 - 10.3 mg/dL [facility] Blood 08/21/2024 4:48 AM CDT 08/21/2024 5:47 AM CDT us Arley Cheung MD LAB BLOOD ORDERABLES Final Result Performing Organization Address [facility] Co de Phone Number [facility] [place] [address] * POCT glucose (08/20/2024 8:23 PM CDT) Glucose, POC 134 70 - 199 mg/dL Blood 08/20/2024 8:23 PM CDT 08/20/2024 8:23 PM CDT us Arley Cheung MD LAB POCT ORDERABLES - DEVIC E Final Result Performing Organization Address [facility] de Phone Number [facility] [place] [address] * POCT glucose (08/20/2024 5:21 PM CDT) Glucose, POC 165 70 - 199 mg/dL Blood 08/20/2024 5:21 PM CDT 08/20/2024 5:21 PM CDT us Arley Cheung MD LAB POCT ORDERABLES - DEVIC E Final Result Performing Organization Address [facility] de Phone Number [facility] Department [place] [address] * POCT glucose (08/20/2024 12:20 PM CDT) Glucose, POC 74 70 - 199 mg/dL Blood 08/20/2024 12:2 0 PM CDT 08/20/2024 12:20 PM CDT us Arley Cheung MD LAB POCT ORDERABLES - DEVIC E Final Result Performing Organization Address [facility] Co de Phone Number [facility]ER [facility] [place] [address] * POCT glucose (08/20/2024 7:43 AM CDT) Pathologist [facility] Glucose, POC 97 70 - 199 mg/dL Blood 08/20/2024 7:43 AM CDT 08/20/2024 7:43 AM CDT us Arley Cheung MD LAB POCT ORDERABLES - DEVIC E Final Result Performing Organization Address City/[facility]/ZIP Co de Phone Number [facility] [place] [address] * eGFR (08/20/2024 5:13 AM CDT) [facility] eGFR >90 >=60 mL/min/1. 73 m2 Comment: [...] MD LAB BLOOD ORDERABLES Final Result [facility] [place] [address] * (ABNORMAL) Differential, auto (08/20/2024 5:13 AM [...] [facility]ERNER BJ Neutrophil pct 42.6 % [facility] Comment: Interpretive Data Percent cell count reference ranges are not reported, since discordance with absolute values may lead to misinterpretation of CBC data. Current Interpretive Data was last revised on 2017. Imm gran pct 0.3 % [facility] Comment: Interpretive Data Percent cell count reference ranges are not reported, since discordance with absolute values may lead to misinterpretation of CBC data. Current Interpretive Data was last revised on 2017. Lymphocyte pct 39.7 % [facility] Comment: Interpretive Data Percent cell count reference ranges are not reported, since discordance with absolute values may lead to misinterpretation of CBC data. Current Interpretive Data was last revised on 2017. Monocyte pct 9.7 % [facility] Comment: Interpretive Data Percent cell count reference ranges are not reported, since discordance with absolute values may lead to misinterpretation of CBC data. Current Interpretive Data was last revised on 2017. Eosinophil pct 5.1 % [facility] Comment: Interpretive Data Percent cell count reference ranges are not reported, since discordance with absolute values may lead to misinterpretation of CBC data. Current Interpretive Data was last revised on 2017. Basophil pct 2.6 % [facility] Comment: Interpretive Data Percent cell count reference ranges are not reported, since discordance with absolute values may lead to misinterpretation of CBC data. Current Interpretive Data was last revised on 2017. Blood 08/20/2024 5:13 AM CDT 08/20/2024 5:40 AM CDT Arley Cheung MD LAB BLOOD ORDERABLES Final Result Performing Organization Address [facility] Co de Phone Number [facility] Department [place] [address] * (ABNORMAL) CBC with auto differential (08/20/2024 5:13 AM CDT) Pathologist [facility] WBC 5.9 3.8 - 9.9 K/cumm Hgb 10.8(L) 13.0 - 17.5 g/dL [facility] Hct 32.6(L) 38.9 - 50.3 % [facility] Plt 628(H) 150 - 400 K/cumm [facility] MPV 8.8(L) 9.1 - 12.3 fL [facility] RBC 3.62(L) 4.30 - 5.80 M/cumm [facility] MCV 90.1 81.3 - 96.4 fL [facility] MCH 29.8 27.1 - 33.3 pg [facility] MCHC 33.1 32.3 - 35.7 g/dL [facility] RDW CV 17.2(H) 11.1 - 14.9 % [facility] RDW SD 57.0(H) 35.7 - 48.1 fL [facility] NRBC abs 0.00 0.00 - 0.01 K/cumm [facility] Blood 08/20/2024 5:13 AM CDT 08/20/2024 5:40 AM CDT Arley Cheung MD LAB BLOOD ORDERABLES Final Result Performing Organization Address City/[facility]/ZIP Co de Phone Number [facility] [place] [address] * Phosphorus (08/20/2024 5:13 AM CDT) Pathologist [facility] Phosphorus, pl 3.3 2.3 - 4.5 mg/dL Blood 08/20/2024 5:13 AM CDT 08/20/2024 5:41 AM CDT us Arley Cheung MD LAB BLOOD ORDERABLES Final Result Performing Organization Address [facility] Co de Phone Number [facility] Department [place] [address] * Magnesium (08/20/2024 5:13 AM CDT) Pathologist [facility] Magnesium 2.0 1.4 - 2.5 mg/dL Blood 08/20/2024 5:13 AM CDT 08/20/2024 5:41 AM CDT us Arley Cheung MD LAB BLOOD ORDERABLES Final Result Performing Organization Address [facility] de Phone Number [facility] Department [place] [address] * (ABNORMAL) Hepatic function panel (08/20/2024 5:13 AM CDT) [facility] Bilirubin, total <0.2 0.1 - 1.2 mg/dL Bilirubin, direct <0.2 0.1 - 0.3 mg/dL [facility] Protein, pl 6.7 6.5 - 8.5 g/dL [facility] Albumin 3.4(L) 3.5 - 5.0 g/dL [facility] Alk phos 87 40 - 130 Units/L [facility] ALT 13 7 - 55 Units/L [facility] AST 17 10 - 50 Units/L [facility] Blood 08/20/2024 5:13 AM CDT 08/20/2024 5:41 AM CDT us Arley Cheung MD LAB BLOOD ORDERABLES Final Result Performing Organization Address [facility] Co de Phone Number [facility] [place] [address] * (ABNORMAL) Basic metabolic panel (08/20/2024 5:13 AM CDT) Pathologist [facility] Sodium 141 135 - 145 mmol/L Potassium, pl 4.4 3.3 - 4.9 mmol/L [facility] Chloride 105 97 - 110 mmol/L [facility] CO2 26 22 - 32 mmol/L [facility] Anion gap 10 2 - 15 mmol/L [facility] BUN 4(L) 6 - 25 mg/dL [facility] Creatinine 0.80 0.80 - 1.30 mg/dL [facility] Glucose 98 70 - 199 mg/dL [facility] Comment: Interpretive Data Fasting glucose >/= 126 [...] 2022. Calcium 9.5 8.5 - 10.3 mg/dL [facility] Blood 08/20/2024 5:13 AM CDT 08/20/2024 5:41 AM CDT Arley Cheung MD LAB BLOOD ORDERABLES Final Result [facility] [place] [address] * POCT glucose (08/20/2024 3:12 AM CDT) Pathologist [facility] Glucose, POC 110 70 - 199 mg/dL Blood 08/20/2024 3:12 AM CDT 08/20/2024 3:12 AM CDT us Arley S W. Thoelke MD LAB POCT ORDERABLES - DEVIC E Final Result Performing Organization Address City/[facility] Co de Phone Number [facility] [place] [address] * POCT glucose (08/20/2024 1:38 AM CDT) Glucose, POC 166 70 - 199 mg/dL Blood 08/20/2024 1:38 AM CDT 08/20/2024 1:38 AM CDT us Arley Cheung MD LAB POCT ORDERABLES - DEVIC E Final Result Performing Organization Address [facility] de Phone Number [facility] [place] [address] * (ABNORMAL) POCT glucose (08/19/2024 11:45 PM CDT) Glucose, POC 210(H) 70 - 199 mg/dL Blood 08/19/2024 11:4 5 PM CDT 08/19/2024 11:45 PM CDT Result Rylan Cheung MD LAB POCT ORDERABLES - DEVIC E Final Result Performing Organization Address [facility] Co de Phone Number [facility] Department [place] [address] * POCT glucose (08/19/2024 10:24 PM CDT) Glucose, POC 112 70 - 199 mg/dL Blood 08/19/2024 10:2 4 PM CDT 08/19/2024 10:24 PM CDT us Arley Cheung MD LAB POCT ORDERABLES - DEVIC E Final Result Performing Organization Address City/[facility] Co de Phone Number [facility] [place] [address] * POCT glucose (08/19/2024 9:55 PM CDT) Glucose, POC 100 70 - 199 mg/dL Blood 08/19/2024 9:55 PM CDT 08/19/2024 9:55 PM CDT us Arley Cheung MD LAB POCT ORDERABLES - DEVIC E Final Result Performing Organization Address City/[facility] [place] [address] * (ABNORMAL) POCT glucose (08/19/2024 8:07 PM CDT) Glucose, POC 376(H) 70 - 199 mg/dL Blood 08/19/2024 8:07 PM CDT 08/19/2024 8:07 PM CDT us Arley Cheung MD LAB POCT ORDERABLES - DEVIC E Final Result Performing Organization Address City/[facility] Co de Phone Number [facility] [employer] [place] [address] * (ABNORMAL) POCT glucose (08/19/2024 7:24 PM CDT) Glucose, POC 325(H) 70 - 199 mg/dL Blood 08/19/2024 7:24 PM CDT 08/19/2024 7:24 PM CDT us Arley Cheung MD LAB POCT ORDERABLES - DEVIC E Final Result Performing Organization Address City/[facility]/ZIP Co de Phone Number [facility] [place] [address] * eGFR (08/18/2024 10:25 PM CDT) [facility] eGFR >90 >=60 mL/min/1. 73 m2 Comment: [...] Cheung MD LAB BLOOD ORDERABLES Final Result [facility] [place] [address] * (ABNORMAL) Differential, auto (08/18/2024 10:25 PM CDT) [facility] Neutrophil abs 3.7 1.5 - 6.5 K/cumm Imm gran abs 0.0 0.0 - 0.1 K/cumm [facility] Lymphocyte abs 2.0 0.8 - 3.3 K/cumm [facility] Monocyte abs 0.9(H) 0.2 - 0.8 K/cumm [facility] Eosinophil abs 0.3 0.0 - 0.5 K/cumm [facility] Basophil abs 0.1 0.0 - 0.1 K/cumm [facility] Neutrophil pct 52.6 % [facility] Comment: Interpretive Data Percent cell count reference ranges are not reported, since discordance with absolute values may lead to misinterpretation of CBC data. Current Interpretive Data was last revised on 2017. Imm gran pct 0.3 % [facility] Comment: Interpretive Data Percent cell count reference ranges are not reported, since discordance with absolute values may lead to misinterpretation of CBC data. Current Interpretive Data was last revised on 2017. Lymphocyte pct 29.0 % [facility] Comment: Interpretive Data Percent cell count reference ranges are not reported, since discordance with absolute values may lead to misinterpretation of CBC data. Current Interpretive Data was last revised on 2017. Monocyte pct 12.8 % [facility] Comment: Interpretive Data Percent cell count reference ranges are not reported, since discordance with absolute values may lead to misinterpretation of CBC data. Current Interpretive Data was last revised on 2017. Eosinophil pct 4.0 % [facility] Comment: Interpretive Data Percent cell count reference ranges are not reported, since discordance with absolute values may lead to misinterpretation of CBC data. Current Interpretive Data was last revised on 2017. Basophil pct 1.3 % [facility] Comment: Interpretive Data Percent cell count reference ranges are not reported, since discordance with absolute values may lead to misinterpretation of CBC data. Current Interpretive Data was last revised on 2017. Blood 08/18/2024 10:2 5 PM CDT 08/18/2024 10:49 PM CDT us Arley Cheung MD LAB BLOOD ORDERABLES Final Result [facility] [place] [address] * (ABNORMAL) CBC with auto differential (08/18/2024 10:25 PM CDT) WBC 6.9 3.8 - 9.9 K/cumm Hgb 10.6(L) 13.0 - 17.5 g/dL [facility] Hct 32.5(L) 38.9 - 50.3 % [facility] Plt 700(H) 150 - 400 K/cumm [facility] MPV 8.7(L) 9.1 - 12.3 fL [facility] RBC 3.60(L) 4.30 - 5.80 M/cumm [facility] MCV 90.3 81.3 - 96.4 fL [facility] MCH 29.4 27.1 - 33.3 pg [facility] MCHC 32.6 32.3 - 35.7 g/dL [facility] RDW CV 17.6(H) 11.1 - 14.9 % [facility] RDW SD 57.7(H) 35.7 - 48.1 fL [facility] NRBC abs 0.00 0.00 - 0.01 K/cumm [facility] Blood 08/18/2024 10:2 5 PM CDT 08/18/2024 10:49 PM CDT Arley Cheung MD LAB BLOOD ORDERABLES Final Result [facility] Department [place] [employer] [place] [address] * Phosphorus (08/18/2024 10:25 PM CDT) Pathologist [facility] Phosphorus, pl 3.3 2.3 - 4.5 mg/dL Blood 08/18/2024 10:2 5 PM CDT 08/18/2024 10:47 PM CDT Arley Cheung MD LAB BLOOD ORDERABLES Final Result [facility] [place] [employer] [place] [address] * Magnesium (08/18/2024 10:25 PM CDT) Pathologist [facility] Magnesium 1.9 1.4 - 2.5 mg/dL Blood 08/18/2024 10:2 5 PM CDT 08/18/2024 10:47 PM CDT Arley Cheung MD LAB BLOOD ORDERABLES Final Result Performing Organization Address [facility] Co de Phone Number [facility] [place] [address] * Hepatic function panel (08/18/2024 10:25 PM CDT) [facility] Bilirubin, total <0.2 0.1 - 1.2 mg/dL Bilirubin, direct <0.2 0.1 - 0.3 mg/dL [facility] Protein, pl 7.1 6.5 - 8.5 g/dL [facility] Albumin 3.5 3.5 - 5.0 g/dL [facility] Alk phos 98 40 - 130 Units/L [facility] ALT 12 7 - 55 Units/L [facility] AST 17 10 - 50 Units/L [facility] Blood 08/18/2024 10:2 5 PM CDT 08/18/2024 10:47 PM CDT Arley Cheung MD LAB BLOOD ORDERABLES Final Result Performing Organization Address [facility] de Phone Number [facility] Department [place] [address] * (ABNORMAL) Basic metabolic panel (08/18/2024 10:25 PM CDT) [facility] Sodium 144 135 - 145 mmol/L Potassium, pl 4.3 3.3 - 4.9 mmol/L [facility] Chloride 105 97 - 110 mmol/L [facility] CO2 30 22 - 32 mmol/L [facility] Anion gap 9 2 - 15 mmol/L [facility] BUN 3(L) 6 - 25 mg/dL [facility] Creatinine 0.72(L) 0.80 - 1.30 mg/dL [facility] Glucose 109 70 - 199 mg/dL [facility] Comment: Interpretive Data Fasting glucose >/= 126 [...] 2022. Calcium 9.6 8.5 - 10.3 mg/dL [facility] Blood 08/18/2024 10:2 5 PM CDT 08/18/2024 10:47 PM CDT us Arley Cheung MD LAB BLOOD ORDERABLES Final Result [facility] [place] [address] * eGFR (08/17/2024 8:00 PM CDT) eGFR [...] Cheung MD LAB BLOOD ORDERABLES Final Result [facility] [place] [address] * (ABNORMAL) Differential, auto (08/17/2024 8:00 PM CDT) Neutrophil abs 6.5 1.5 - 6.5 K/cumm Imm gran abs 0.0 0.0 - 0.1 K/cumm [facility] Lymphocyte abs 1.3 0.8 - 3.3 K/cumm [facility] Monocyte abs 0.9(H) 0.2 - 0.8 K/cumm [facility] Eosinophil abs 0.2 0.0 - 0.5 K/cumm [facility] Basophil abs 0.1 0.0 - 0.1 K/cumm [facility] Neutrophil pct 71.5 % [facility] Comment: Interpretive Data Percent cell count reference ranges are not reported, since discordance with absolute values may lead to misinterpretation of CBC data. Current Interpretive Data was last revised on 2017. Imm gran pct 0.3 % [facility] Comment: Interpretive Data Percent cell count reference ranges are not reported, since discordance with absolute values may lead to misinterpretation of CBC data. Current Interpretive Data was last revised on 2017. Lymphocyte pct 14.5 % [facility] Comment: Interpretive Data Percent cell count reference ranges are not reported, since discordance with absolute values may lead to misinterpretation of CBC data. Current Interpretive Data was last revised on 2017. Monocyte pct 10.2 % [facility] Comment: Interpretive Data Percent cell count reference ranges are not reported, since discordance with absolute values may lead to misinterpretation of CBC data. Current Interpretive Data was last revised on 2017. Eosinophil pct 2.6 % [facility] Comment: Interpretive Data Percent cell count reference ranges are not reported, since discordance with absolute values may lead to misinterpretation of CBC data. Current Interpretive Data was last revised on 2017. Basophil pct 0.9 % [facility] Comment: Interpretive Data Percent cell count reference ranges are not reported, since discordance with absolute values may lead to misinterpretation of CBC data. Current Interpretive Data was last revised on 2017. Blood 08/17/2024 8:00 PM CDT 08/17/2024 8:22 PM CDT Arley Cheung MD LAB BLOOD ORDERABLES Final Result Performing Organization Address City/[facility] Co de Phone Number [facility] Department [place] [address] * (ABNORMAL) CBC with auto differential (08/17/2024 8:00 PM CDT) WBC 9.1 3.8 - 9.9 K/cumm Hgb 9.8(L) 13.0 - 17.5 g/dL [facility] Hct 29.8(L) 38.9 - 50.3 % [facility] Plt 670(H) 150 - 400 K/cumm [facility] MPV 8.9(L) 9.1 - 12.3 fL [facility] RBC 3.32(L) 4.30 - 5.80 M/cumm [facility] MCV 89.8 81.3 - 96.4 fL [facility] MCH 29.5 27.1 - 33.3 pg [facility] MCHC 32.9 32.3 - 35.7 g/dL [facility] RDW CV 17.4(H) 11.1 - 14.9 % [facility] RDW SD 57.1(H) 35.7 - 48.1 fL [facility] NRBC abs 0.00 0.00 - 0.01 K/cumm [facility] Blood 08/17/2024 8:00 PM CDT 08/17/2024 8:22 PM CDT Arley Cheung MD LAB BLOOD ORDERABLES Final Result Performing Organization Address [facility]/ZIP Co de Phone Number [facility] [place] [address] * (ABNORMAL) Phosphorus (08/17/2024 8:00 PM CDT) [facility] Phosphorus, pl 2.2(L) 2.3 - 4.5 mg/dL Blood 08/17/2024 8:00 PM CDT 08/17/2024 8:22 PM CDT Arley Cheung MD LAB BLOOD ORDERABLES [place] [address] * Magnesium (08/17/2024 8:00 PM CDT) [facility] Magnesium 1.8 1.4 - 2.5 mg/dL Blood 08/17/2024 8:00 PM CDT 08/17/2024 8:22 PM CDT Arley Cheung MD LAB BLOOD ORDERABLES Final Result Performing Organization Address City/[facility] [place] [address] * (ABNORMAL) Hepatic function panel (08/17/2024 8:00 PM CDT) [facility] Bilirubin, total <0.2 0.1 - 1.2 mg/dL Bilirubin, direct <0.2 0.1 - 0.3 mg/dL [facility] Protein, pl 6.7 6.5 - 8.5 g/dL [facility] Albumin 3.3(L) 3.5 - 5.0 g/dL [facility] Alk phos 106 40 - 130 Units/L [facility] ALT 13 7 - 55 Units/L [facility] AST 17 10 - 50 Units/L [facility] Blood 08/17/2024 8:00 PM CDT 08/17/2024 8:22 PM CDT Arley Cheung MD LAB BLOOD ORDERABLES Final Result [facility] [place] [address] * (ABNORMAL) Basic metabolic panel (08/17/2024 8:00 PM CDT) [facility] Sodium 142 135 - 145 mmol/L Potassium, pl 3.7 3.3 - 4.9 mmol/L [facility] Chloride 106 97 - 110 mmol/L [facility] CO2 25 22 - 32 mmol/L [facility] Anion gap 11 2 - 15 mmol/L [facility] BUN 6 6 - 25 mg/dL [facility] Creatinine 0.74(L) 0.80 - 1.30 mg/dL [facility] Glucose 143 70 - 199 mg/dL [facility] Comment: Interpretive Data Fasting glucose >/= 126 [...] 2022. Calcium 9.3 8.5 - 10.3 mg/dL [facility] Blood 08/17/2024 8:00 PM CDT 08/17/2024 8:22 PM CDT Arley Cheung MD LAB BLOOD ORDERABLES Final Result Performing Organization Address [facility]/ZIP Co de Phone Number [facility] Department [place] [address] * Blood culture Blood (08/17/2024 12:12 PM [...] performance characteristics have been verified by the [facility]. For questions about this culture, contact the Microbiology Laboratory at [phone]. Interpretive data was last revised on 24. Melecio Michelle MD LAB MICROBIOLOGY - GEN ERAL ORDERABLES Final Result [facility] [place] [address] * Blood culture Blood (08/17/2024 12:12 PM [...] performance characteristics have been verified by the [facility]. For questions about this culture, contact the Microbiology Laboratory at [phone]. Interpretive data was last revised on 24. Melecio Michelle MD LAB MICROBIOLOGY - GEN ERAL ORDERABLES Final Result [facility] Department [place] [address] * C. difficile testing Stool (08/17/2024 10:50 AM CDT) [facility] Result Negative Negative Toxin Result Negative Negative [facility] C. diff result Negative, free toxin Negative, free toxin [facility] C. diff interp Negative for toxigenic Clostridioides (Clostridium) difficile. Analysis was performed using a glutamate dehydrogenase antigen detection assay combined with a C. difficile toxin detection assay. [facility] Stool 08/17/2024 10:5 0 AM CDT 08/17/2024 11:00 AM CDT Narrative [facility] - 08/17/2024 11:31 AM CDT Testing for C. difficile is not recommended within 4 days of a negative result, 10 days of a positive, or 24 hours after laxative administration. If this order is clinically indicated, contact the lab and enter the passcode to complete this order.->[id number] Arley Cheung MD LAB MICROBIOLOGY - GENERAL ORDERABLES Final Result Performing Organization Address City/[facility] Co de Phone Number [facility] [place] [address] * eGFR (08/16/2024 11:14 PM CDT) eGFR >90 >=60 mL/min/1. 73 [...] BLOOD ORDERABLES Final Result Performing Organization Address City/[facility]/ZIP Co de Phone Number [facility] [place] [address] * Differential, auto (08/16/2024 11:14 PM CDT) Pathologist [facility] Neutrophil abs 2.8 1.5 - 6.5 K/cumm Imm gran abs 0.0 0.0 - 0.1 K/cumm [facility] Lymphocyte abs 1.1 0.8 - 3.3 K/cumm [facility] Monocyte abs 0.8 0.2 - 0.8 K/cumm [facility] Eosinophil abs 0.3 0.0 - 0.5 K/cumm [facility] Basophil abs 0.1 0.0 - 0.1 K/cumm [facility] Neutrophil pct 53.8 % [facility] Comment: Interpretive Data Percent cell count reference ranges are not reported, since discordance with absolute values may lead to misinterpretation of CBC data. Current Interpretive Data was last revised on 2017. Imm gran pct 0.4 % [facility] Comment: Interpretive Data Percent cell count reference ranges are not reported, since discordance with absolute values may lead to misinterpretation of CBC data. Current Interpretive Data was last revised on 2017. Lymphocyte pct 22.2 % [facility] Comment: Interpretive Data Percent cell count reference ranges are not reported, since discordance with absolute values may lead to misinterpretation of CBC data. Current Interpretive Data was last revised on 2017. Monocyte pct 15.7 % [facility] Comment: Interpretive Data Percent cell count reference ranges are not reported, since discordance with absolute values may lead to misinterpretation of CBC data. Current Interpretive Data was last revised on 2017. Eosinophil pct 5.9 % [facility] Comment: Interpretive Data Percent cell count reference ranges are not reported, since discordance with absolute values may lead to misinterpretation of CBC data. Current Interpretive Data was last revised on 2017. Basophil pct 2.0 % [facility] Comment: Interpretive Data Percent cell count reference ranges are not reported, since discordance with absolute values may lead to misinterpretation of CBC data. Current Interpretive Data was last revised on 2017. Blood 08/16/2024 11:1 4 PM CDT 08/17/2024 1:03 AM CDT us Arley Cheung MD LAB BLOOD ORDERABLES Final Result [facility] [place] [address] * (ABNORMAL) CBC with auto differential (08/16/2024 11:14 PM CDT) Pathologist [facility] WBC 5.1 3.8 - 9.9 K/cumm Hgb 10.0(L) 13.0 - 17.5 g/dL [facility] Hct 30.6(L) 38.9 - 50.3 % [facility] Plt 702(H) 150 - 400 K/cumm [facility] MPV 9.0(L) 9.1 - 12.3 fL [facility] RBC 3.36(L) 4.30 - 5.80 M/cumm [facility] MCV 91.1 81.3 - 96.4 fL [facility] MCH 29.8 27.1 - 33.3 pg [facility] MCHC 32.7 32.3 - 35.7 g/dL [facility] RDW CV 17.5(H) 11.1 - 14.9 % [facility] RDW SD 58.3(H) 35.7 - 48.1 fL [facility] NRBC abs 0.00 0.00 - 0.01 K/cumm [facility] Blood 08/16/2024 11:1 4 PM CDT 08/17/2024 1:03 AM CDT Arley Cheung MD LAB BLOOD ORDERABLES Final Result Performing Organization Address City/[facility] Co de Phone Number [facility] Department [place] [employer] [place] [address] * Phosphorus (08/16/2024 11:14 PM CDT) Pathologist [facility] Phosphorus, pl 2.5 2.3 - 4.5 mg/dL Blood 08/16/2024 11:1 4 PM CDT 08/17/2024 1:03 AM CDT Arley Cheung MD LAB BLOOD ORDERABLES Final Result Performing Organization Address City/[facility]/ZIP Co de Phone Number [facility] Department [place] [address] * Magnesium (08/16/2024 11:14 PM CDT) [facility] Magnesium 2.0 1.4 - 2.5 mg/dL Blood 08/16/2024 11:1 4 PM CDT 08/17/2024 1:03 AM CDT Arley Cheung MD LAB BLOOD ORDERABLES Final Result [facility] [place] [address] * (ABNORMAL) Hepatic function panel (08/16/2024 11:14 PM CDT) [facility] Bilirubin, total <0.2 0.1 - 1.2 mg/dL Comment:Reviewed Bilirubin, direct <0.2 0.1 - 0.3 mg/dL [facility] Protein, pl 6.6 6.5 - 8.5 g/dL [facility] Albumin 3.2(L) 3.5 - 5.0 g/dL [facility] Alk phos 111 40 - 130 Units/L [facility] ALT 12 7 - 55 Units/L [facility] AST 28 10 - 50 Units/L [facility] Blood 08/16/2024 11:1 4 PM CDT 08/17/2024 1:03 AM CDT Arley Cheung MD LAB BLOOD ORDERABLES Final Result [facility] [place] [address] * Basic metabolic panel (08/16/2024 11:14 PM CDT) [facility] Sodium 140 135 - 145 mmol/L Potassium, pl 3.8 3.3 - 4.9 mmol/L [facility] Chloride 106 97 - 110 mmol/L [facility] CO2 23 22 - 32 mmol/L [facility] Anion gap 11 2 - 15 mmol/L [facility] BUN 6 6 - 25 mg/dL [facility] Creatinine 0.81 0.80 - 1.30 mg/dL [facility] Glucose 188 70 - 199 mg/dL [facility] Comment: Interpretive Data Fasting glucose >/= 126 [...] 2022. Calcium 8.9 8.5 - 10.3 mg/dL [facility] Blood 08/16/2024 11:1 4 PM CDT 08/17/2024 1:03 AM CDT us Arely Cheung MD LAB BLOOD ORDERABLES Final Result Performing Organization Address [facility]/ZIP Co de Phone Number [facility] Department [place] [address] * XR Outside Reference (08/16/2024 7:30 PM CDT) Impressions [facility] - 08/16/2024 7:30 PM CDT These images are for Reference purposes only and have not been reviewed by [facility]. There will be no report generated by a [facility] Radiologist. Narrative [facility] - 08/16/2024 7:30 PM CDT EXAMINATION: Images For Reference Purposes Only us Melecio Michelle MD IMG XR PROCEDURES Maisha l Result Performing Organization Address City/[facility]/ZIP Co de Phone Number [facility] * MR [...] images may or may not represent the [place] source data set and thus may contain [...] IMAGING STUDY STUDY INITIALLY PERFORMED: 08/09/2024 at [facility]. TYPE OF STUDY: Multiple MRI/MRCP images of [...] IMAGING STUDY STUDY INITIALLY PERFORMED: 08/09/2024 at [facility]. TYPE OF STUDY: Multiple MRI/MRCP images of [...] images may or may not represent the [place] source data set and thus may contain changes that may lower the accuracy of this second-opinion interpretation. Dictated by: Garrison Jiang M.D. The radiology attending physician has personally reviewed this study, and had reviewed and/or edited this written report and agrees with it. Electronically signed by: Yumiko Wilson M.D. Melecio Michelle MD [facility] [place] PROCEDURES Fin al Result * XR Outside Reference (08/16/2024 6:01 PM CDT) Impressions [facility] - 08/16/2024 6:01 PM CDT These images are for Reference purposes only and have not been reviewed by [facility]. There will be no report generated by a [facility] Radiologist. Narrative [facility] - 08/16/2024 6:01 PM CDT EXAMINATION: Images For Reference Purposes Only Melecio Michelle MD IM XR PROCEDURES Maisha l Result [facility] * XR Outside Reference (08/16/2024 6:00 PM CDT) Impressions [facility] - 08/16/2024 6:00 PM CDT These images are for Reference purposes only and have not been reviewed by [facility]. There will be no report generated by a [facility] Radiologist. Narrative [facility] - 08/16/2024 6:00 PM [...] report of this study generated by a [facility] Radiologist. Electronically signed by: Evelin Cho M.D. [...] report of this study generated by a [facility] Radiologist. Electronically signed by: Evelin Cho M.D. us Melecio Michelle MD IMG CT PROCEDURES Maisha l Result * Infection Prevention Lanny auris PCR, surveillance Axilla/Groin (08/16/2024 2:02 PM CDT) Lanny auris DNA Not Detected Not Detected [facility] Comment: Interpretive Data Testing performed by [facility] using the [employer] johnny [id number] Lanny auris assay. This assay detects DNA from Lanny auris using Real-Time PCR. This assay is laboratory developed and is not cleared by the [place] Food and Drug Administration. The performance characteristics have been verified by the [facility]. Axilla/Groin 08/16/2024 2:02 PM CDT 08/16/2024 2:36 PM CDT us Michael Claudio MD LAB MICROBIOLOGY - GENERAL ORDER DELIO Final Result [facility] [place] [address] [facility] * CT Chest Abdomen Pelvis W [...] flow Electronically signed by: Ever Alcala M.D. us Arley Cheung MD IMG CT PROCEDURES Final Res ult * C. difficile testing Stool (08/16/2024 10:31 AM CDT) Pathologist [facility] Result Negative Negative Toxin Result Negative Negative [facility] C. diff result Negative, free toxin Negative, free toxin [facility] C. diff interp Negative for toxigenic Clostridioides (Clostridium) difficile. Analysis was performed using a glutamate dehydrogenase antigen detection assay combined with a C. difficile toxin detection assay. [facility] Stool 08/16/2024 10:3 1 AM CDT 08/16/2024 12:41 PM CDT us Arley Cheung MD LAB MICROBIOLOGY - GENERAL ORDERABLES Final Result [facility] [place] [address] * Calprotectin, fecal (08/16/2024 10:31 AM CDT) Pathologist [facility] Calprotectin, fecal <50.0 <50.0 (Normal) mcg/g [facility] ref [facility] Comment: Test Performed by: [facility] [address] [place] [id number] [employer]ine Tank Tender: Rubio Michel Ph.D.; CLIA# [id number] Stool 08/16/2024 10:3 1 AM CDT 08/16/2024 1:01 PM CDT Arley Cheung MD LAB BODY FLUIDS AND STOOLS ORDERABLES Final Result Performing Organization Address [facility] Co de Phone Number [facility] Department [place] [address] [facility] ref [facility] * Norovirus PCR Stool (08/16/2024 10:31 AM CDT) Pathologist [facility] Norovirus GI RNA Not Detected Not Detected [facility] Norovirus GII RNA Not Detected [facility]ed [facility] Comment: Interpretive data: Testing performed at the [facility] using the [employer] Xpert Norovirus Assay. This assay uses nucleic [...] MICROBIOLOGY - GENERAL ORDERABLES Final Result [facility] [place] [address] [facility] * Stool culture Stool Rectum (08/16/2024 10:31 AM CDT) Pathologist [facility] Direct Specimen Exam Shiga Toxin Testing: Antigen detection assay for Shiga-toxin NEGATIVE for Shiga Toxin 1 and Shiga Toxin 2. Report Final Report: No growth of enteric bacterial pathogens [facility] Stool (Rectum) 08/16/2024 10 :31 AM CDT 08/16/2024 12:41 PM CDT Narrative [facility] - 08/20/2024 8:30 AM CDT Testing performed by [facility] ([phone]). Routine stool cultures include procedures to detect Salmonella, Shigella, Edwardsiella, Aeromonas, Pleisiomonas, Campylobacter, Yersinia, E. coli O157, and Shiga-like toxins. Vibrio is cultured only upon special request. If Vibrio is suspected, please call the laboratory at [phone]. Interpretive data was last updated October 03, 2016. Arley Cheung MD LAB MICROBIOLOGY - GENERAL ORDERABLES Final Result Performing Organization Address City/[facility] Co de Phone Number [facility] Department [place] [employer] [address] * Infection Prevention VRE Culture Stool (08/16/2024 10:27 AM CDT) Report Final Report: Negative Stool 08/16/2024 10:2 7 AM CDT 08/16/2024 2:55 PM CDT Narrative [facility] - 08/18/2024 6:13 PM CDT Surveillance culture for Infection Prevention purposes only; results indicate colonization, not infection requiring treatment. Testing performed by [facility] ([phone]). Arley Cheung MD LAB MICROBIOLOGY - GENERAL ORDERABLES Final Result Performing Organization Address City/[facility]/ZIP Co de Phone Number [facility] Department [place] [employer] [place] [address] * Differential, auto (08/16/2024 5:16 AM CDT) Neutrophil abs 4.5 1.5 - 6.5 K/cumm Imm gran abs 0.0 0.0 - 0.1 K/cumm [facility] Lymphocyte abs 1.1 0.8 - 3.3 K/cumm [facility] Monocyte abs 0.7 0.2 - 0.8 K/cumm [facility] Eosinophil abs 0.1 0.0 - 0.5 K/cumm [facility] Basophil abs 0.1 0.0 - 0.1 K/cumm [facility] Neutrophil pct 68.8 % [facility] Comment: Interpretive Data Percent cell count reference ranges are not reported, since discordance with absolute values may lead to misinterpretation of CBC data. Current Interpretive Data was last revised on 2017. Imm gran pct 0.5 % [facility] Comment: Interpretive Data Percent cell count reference ranges are not reported, since discordance with absolute values may lead to misinterpretation of CBC data. Current Interpretive Data was last revised on 2017. Lymphocyte pct 16.7 % [facility] Comment: Interpretive Data Percent cell count reference ranges are not reported, since discordance with absolute values may lead to misinterpretation of CBC data. Current Interpretive Data was last revised on 2017. Monocyte pct 10.5 % [facility] Comment: Interpretive Data Percent cell count reference ranges are not reported, since discordance with absolute values may lead to misinterpretation of CBC data. Current Interpretive Data was last revised on 2017. Eosinophil pct 1.7 % [facility] Comment: Interpretive Data Percent cell count reference ranges are not reported, since discordance with absolute values may lead to misinterpretation of CBC data. Current Interpretive Data was last revised on 2017. Basophil pct 1.8 % [facility] Comment: Interpretive Data Percent cell count reference ranges are not reported, since discordance with absolute values may lead to misinterpretation of CBC data. Current Interpretive Data was last revised on 2017. Blood 08/16/2024 5:16 AM CDT 08/16/2024 5:50 AM CDT us John De Anda MD LAB BLOOD ORDERABLES Final Result [facility] [place] [address] * (ABNORMAL) Iron profile w/ IBC (08/16/2024 5:16 AM CDT) [facility] Iron 41(L) 50 - 150 mcg/dL TIBC 152(L) 250 - 400 mcg/dL [facility] Transferrin saturation 27 20 - 50 % [facility] Blood 08/16/2024 5:16 AM CDT 08/16/2024 5:50 AM CDT Arley Cheung MD LAB BLOOD ORDERABLES Final Result [facility] [place] [address] * (ABNORMAL) CBC with auto differential (08/16/2024 5:16 AM CDT) [facility] WBC 6.6 3.8 - 9.9 K/cumm Hgb 10.1(L) 13.0 - 17.5 g/dL [facility] Hct 31.3(L) 38.9 - 50.3 % [facility] Plt 710(H) 150 - 400 K/cumm [facility] MPV 8.8(L) 9.1 - 12.3 fL [facility] RBC 3.44(L) 4.30 - 5.80 M/cumm [facility] MCV 91.0 81.3 - 96.4 fL [facility] MCH 29.4 27.1 - 33.3 pg [facility] MCHC 32.3 32.3 - 35.7 g/dL [facility] RDW CV 17.6(H) 11.1 - 14.9 % [facility] RDW SD 58.5(H) 35.7 - 48.1 fL [facility] NRBC abs 0.00 0.00 - 0.01 K/cumm [facility] Blood 08/16/2024 5:16 AM CDT 08/16/2024 5:50 AM CDT us John De Anda MD LAB BLOOD ORDERABLES Final Result [facility] [place] [employer] [place] [address] * Phosphorus (08/16/2024 5:16 AM CDT) Phosphorus, pl 3.0 2.3 - 4.5 mg/dL Blood 08/16/2024 5:16 AM CDT 08/16/2024 5:50 AM CDT us John De Anda MD LAB BLOOD ORDERABLES Final Result Performing Organization Address [facility] [place] [address] * Magnesium (08/16/2024 5:16 AM CDT) Magnesium 2.1 1.4 - 2.5 mg/dL Blood 08/16/2024 5:16 AM CDT 08/16/2024 5:50 AM CDT us John De Anda MD LAB BLOOD ORDERABLES Final Result Performing Organization Address City/[facility] Co de Phone Number [facility] [place] [employer] [place] [address] * Folate (08/16/2024 5:16 AM CDT) Folic acid >20.0 >=5.0 ng/mL Blood 08/16/2024 5:16 AM CDT 08/16/2024 5:50 AM CDT us Arley Cheung MD LAB BLOOD ORDERABLES Final Result [facility] [place] [employer] [place] [address] * (ABNORMAL) Ferritin (08/16/2024 5:16 AM CDT) Pathologist [facility] Ferritin 527(H) 30 - 400 ng/mL Blood 08/16/2024 5:16 AM CDT 08/16/2024 5:50 AM CDT Arley Cheung MD LAB BLOOD ORDERABLES Final Result Performing Organization Address City/[facility]/ZIP [place] [address] * Vitamin B12 (08/16/2024 5:16 AM CDT) [facility] Vitamin B12 810 230 - 1,250 pg/mL Blood 08/16/2024 5:16 AM CDT 08/16/2024 5:50 AM CDT Arley Cheung MD LAB BLOOD ORDERABLES Final Result Performing Organization Address City/[facility] [place] [address] * (ABNORMAL) Hepatic function panel (08/16/2024 5:16 AM CDT) [facility] Bilirubin, total 0.2 0.1 - 1.2 mg/dL Comment:Reviewed Bilirubin, direct <0.2 0.1 - 0.3 mg/dL [facility] Protein, pl 6.7 6.5 - 8.5 g/dL [facility] Albumin 3.4(L) 3.5 - 5.0 g/dL [facility] Alk phos 122 40 - 130 Units/L [facility] ALT 11 7 - 55 Units/L [facility] AST 20 10 - 50 Units/L [facility] Blood 08/16/2024 5:16 AM CDT 08/16/2024 5:50 AM CDT us Arley Cheung MD LAB BLOOD ORDERABLES Final Result Performing Organization Address City/[facility]/ZIP Co de Phone Number [facility] [place] [address] * ECG 12 lead (08/16/2024 1:04 AM CDT) Ventricular Rate EKG/Min 104 BPM [facility] Atrial Rate 104 BPM [facility] NE-Interval (MSEC) 156 ms [facility] QRS-Interval (MSEC) 86 ms [facility] QT-Interval (MSEC) 352 ms [facility] QTc 462 ms [facility] P [place] 49 degrees [facility] R [place] -23 degrees [facility] T [place] 31 degrees [facility] Diagnosis Sinus tachycardia Otherwise normal ECG When compared with ECG of 24-SEP-2019 19:36, No significant change was found Confirmed by Dakotah Khan MD ([id number]) on 08/21/2024 2:38:38 PM [facility] 08/16/2024 1:04 AM CDT 08/21/2024 2:38 PM CDT us John De Anda MD ECG ORDERABLES Final Resul t Performing Organization Address [facility] Co de Phone Number [facility] * Urinalysis reflex to microscopic and culture Urine (08/16/2024 12:17 AM CDT) Color, ur Yellow Yellow Clarity, ur Clear Clear [facility] Specific gravity, ur 1.018 1.003 - 1.030 [facility] pH, urine 7.0 [facility] Comment: Interpretive Data U rine pH is affected by diet, medications, systemic acid-base disturbances, and renal tubular function. pH may affect urinary stone formation. For example, urine pH below 6.0 may help reduce the tendency for calcium phosphate stones and pH greater than 6.0 may reduce the tendency for uric acid stone formation. Source: [place] [employer] Current Interpretive Data was last revised on 2017 Protein, ur ql Negative Negative [facility] Glucose, ur ql Negative Negative [facility] Ketones, ur Negative Negative [facility] Bilirubin, ur Negative Negative [facility] Blood, ur Negative Negative [facility] Urobilinogen, ur <2.0 <2.0 mg/dL [facility] Nitrite, ur Negative Negative [facility] Leukocyte esterase, ur Negative Negative [facility] UA reflex comment Reflex conditions for microscopic UA and culture not met. [facility] Urine 08/16/2024 12:1 7 AM CDT 08/16/2024 1:21 AM CDT us John De Anda MD LAB MICROBIOLOGY - GENERAL ORDERABLES Final Result [facility] Department [place] [address] * Respiratory pathogen panel Nasopharyngeal (08/16/2024 12:17 AM CDT) Pathologist [facility] Influenza A RNA Not Detected Not Detected Influenza B RNA Not Detected Not Detected [facility] RSV RNA Not Detected Not Detected [facility] COVID-19 RNA Not Detected Not Detected [facility] Coronavirus 229E RNA Not Detected Not Detected [facility] Coronavirus HKU1 RNA Not Detected Not Detected [facility] Coronavirus NL63 RNA Not Detected Not Detected [facility] Coronavirus OC43 RNA Not Detected Not Detected [facility] Adenovirus DNA Not Detected Not Detected [facility] Metapneumovirus RNA Not Detected Not Detected [facility] Rhinovirus/Enterov irus RNA Not Detected Not Detected [facility] Parainfluenza 1 RNA Not Detected Not Detected [facility] Parainfluenza 2 RNA Not Detected Not Detected [facility] Parainfluenza 3 RNA Not Detected Not Detected [facility] Parainfluenza 4 RNA Not Detected Not Detected [facility] B. pertussis DNA Not Detected Not Detected [facility] B. parapertussis DNA Not Detected Not Detected [facility] C. pneumoniae DNA Not Detected Not Detected [facility] M. pneumoniae DNA Not Detected Not Detected [facility] Nasopharyngeal 08/16/2024 12 :17 AM CDT 08/16/2024 1:27 AM CDT [facility] 08/16/2024 2:22 AM CDT Is the Patient experiencing symptoms consistent with COVID?->No Surveillance testing for transplant patient?->No Interpretive Data The Mobile Pulse FilmArray Respiratory Panel (RP2.1) assay is a [...] assay has FDA clearance for testing of TRAM OPERATOR swabs. The performance of additional specimen types has been assessed by the performing laboratory. The performance characteristics of this assay have been determined by [facility]. Current interpretive data was last revised on 22. us Arley Cheung MD LAB MICROBIOLOGY - GENERAL ORDERABLES Final Result Performing Organization Address City/[facility] Co de Phone Number [facility] [place] [address] * eGFR (08/15/2024 11:28 PM CDT) Pathologist [facility] eGFR 87 >=60 mL/min/1. 73 m2 [...] BLOOD ORDERABLES Final Result Performing Organization Address City/[facility]/ZIP Co de Phone Number [facility] Department [place] [address] * (ABNORMAL) Differential, auto (08/15/2024 11:28 PM CDT) [facility] Neutrophil abs 7.9(H) 1.5 - 6.5 K/cumm Imm gran abs 0.1 0.0 - 0.1 K/cumm [facility] Lymphocyte abs 0.6(L) 0.8 - 3.3 K/cumm [facility] Monocyte abs 0.7 0.2 - 0.8 K/cumm [facility] Eosinophil abs 0.1 0.0 - 0.5 K/cumm [facility] Basophil abs 0.1 0.0 - 0.1 K/cumm [facility] Neutrophil pct 84.3 % [facility] Comment: Interpretive Data Percent cell count reference ranges are not reported, since discordance with absolute values may lead to misinterpretation of CBC data. Current Interpretive Data was last revised on 2017. Imm gran pct 0.7 % [facility] Comment: Interpretive Data Percent cell count reference ranges are not reported, since discordance with absolute values may lead to misinterpretation of CBC data. Current Interpretive Data was last revised on 2017. Lymphocyte pct 6.1 % [facility] Comment: Interpretive Data Percent cell count reference ranges are not reported, since discordance with absolute values may lead to misinterpretation of CBC data. Current Interpretive Data was last revised on 2017. Monocyte pct 7.1 % [facility] Comment: Interpretive Data Percent cell count reference ranges are not reported, since discordance with absolute values may lead to misinterpretation of CBC data. Current Interpretive Data was last revised on 2017. Eosinophil pct 0.7 % [facility] Comment: Interpretive Data Percent cell count reference ranges are not reported, since discordance with absolute values may lead to misinterpretation of CBC data. Current Interpretive Data was last revised on 2017. Basophil pct 1.1 % [facility] Comment: Interpretive Data Percent cell count reference ranges are not reported, since discordance with absolute values may lead to misinterpretation of CBC data. Current Interpretive Data was last revised on 2017. Blood 08/15/2024 11:2 8 PM CDT 08/15/2024 11:31 PM CDT us John De Anda MD LAB BLOOD ORDERABLES Final Result [facility] [place] [address] * Thyroid Function Evans (08/15/2024 11:28 PM CDT) [facility] TSH 0.72 0.30 - 4.20 mcIUnit/mL Blood 08/15/2024 11:2 8 PM CDT 08/15/2024 11:31 PM CDT John De Anda MD LAB BLOOD ORDERABLES Final Result Performing Organization Address [facility] Co de Phone Number [facility] Department [place] [address] * HIV 1/2 Antibody plus p24 Antigen Blood (08/15/2024 11:28 PM CDT) [facility] HIV 1/2 ab + p24 ag Nonreactive [...] GENERAL ORDERABLES Final Result Performing Organization Address [facility] Co de Phone Number [facility] [place] [address] * (ABNORMAL) CBC with auto differential (08/15/2024 11:28 PM CDT) [facility] WBC 9.4 3.8 - 9.9 K/cumm Hgb 9.4(L) 13.0 - 17.5 g/dL [facility] Hct 28.3(L) 38.9 - 50.3 % [facility] Plt 654(H) 150 - 400 K/cumm [facility] MPV 8.8(L) 9.1 - 12.3 fL [facility] RBC 3.11(L) 4.30 - 5.80 M/cumm [facility] MCV 91.0 81.3 - 96.4 fL [facility] MCH 30.2 27.1 - 33.3 pg [facility] MCHC 33.2 32.3 - 35.7 g/dL [facility] RDW CV 17.7(H) 11.1 - 14.9 % [facility] RDW SD 59.1(H) 35.7 - 48.1 fL [facility] NRBC abs 0.00 0.00 - 0.01 K/cumm [facility] Blood 08/15/2024 11:2 8 PM CDT 08/15/2024 11:31 PM CDT John De Anda MD LAB BLOOD ORDERABLES Final Result Performing Organization Address [facility] Co de Phone Number [facility] Department [place] [employer] [place] [address] * Hepatitis C antibody Blood (08/15/2024 11:28 PM CDT) Pathologist [facility] Hep C Ab Nonreactive Nonreactive Comment:Antibodies to HCV no t detected. Does NOT exclude the possibility of recent exposure to HCV. Current interpretive data was last revised on 22 Blood 08/15/2024 11:2 8 PM CDT 08/15/2024 11:33 PM CDT John De Anda MD LAB MICROBIOLOGY - GENERAL ORDERABLES Final Result [facility] [employer] [place] [address] * RPR Blood (08/15/2024 11:28 PM CDT) RPR Nonreactive Nonreactive Blood 08/15/2024 11:2 8 PM CDT 08/15/2024 11:31 PM CDT us John De Anda MD LAB MICROBIOLOGY - GENERAL ORDERABLES Final Result Performing Organization Address [facility] [place] [address] * Hepatitis B Surface Antigen Blood (08/15/2024 11:28 PM CDT) HepBsAg Nonreactive Nonreactive Blood 08/15/2024 11:2 8 PM CDT 08/15/2024 11:33 PM CDT John De Anda MD LAB MICROBIOLOGY - GENERAL ORDERABLES Final Result Performing Organization Address [facility] [place] [address] * aPTT (08/15/2024 11:28 PM CDT) Pathologist [facility] aPTT 35 28 - 38 sec Comment: Interpretive Data Heparin therapeutic range: 66.0 - 100.0 seconds. Range based on correlation with therapeutic heparin activity range of 0.3 - 0.7 Units/mL. Current interpretive data was last revised on 2023. Blood 08/15/2024 11:2 8 PM CDT 08/15/2024 11:35 PM CDT John De Anda MD LAB BLOOD ORDERABLES Final Result Performing Organization Address [facility] de Phone Number [facility] [employer] [place] [address] * Protime-INR (08/15/2024 11:28 PM CDT) PT 12.6 9.7 - 13.0 sec INR 1.16 0.90 - 1.20 [facility] Comment: Interpretive data Oral anticoagulant therapeutic ranges: Venous thromboembolism prophylaxis or treatment: 2.0-3.0 CARDIOLOGY Standard range: 2.0-3.0 High-intensity range: 2.5-3.5 Refer to indication-specific guidelines for appropriate target ranges for prosthetic heart valve replacement. Current interpretive data was last revised on 2019. Blood 08/15/2024 11:2 8 PM CDT 08/15/2024 11:35 PM CDT John De Anda MD LAB BLOOD ORDERABLES Final Result Performing Organization Address City/[facility]/ZIP [place] [address] * Type and screen (08/15/2024 11:28 PM CDT) ABO Rh O Positive Prince, indirect Negative [facility] Blood 08/15/2024 11:2 8 PM CDT 08/15/2024 11:36 PM CDT Narrative [facility] - 08/16/2024 12:23 AM CDT Has the patient had Daratumumab or Isatuximab in the past 6 months?->Unknown John De Anda MD LAB BLOOD BANK TEST ORDERAB LES Final Result Performing Organization Address [facility] [place] [address] * (ABNORMAL) Phosphorus (08/15/2024 11:28 PM CDT) Pathologist [facility] Phosphorus, pl 2.0(L) 2.3 - 4.5 mg/dL Blood 08/15/2024 11:2 8 PM CDT 08/15/2024 11:32 PM CDT John De Anda MD LAB BLOOD ORDERABLES Final Result Performing Organization Address [facility] [place] [address] * Magnesium (08/15/2024 11:28 PM CDT) Pathologist [facility] Magnesium 1.8 1.4 - 2.5 mg/dL Blood 08/15/2024 11:2 8 PM CDT 08/15/2024 11:32 PM CDT Result [facility] John De Anda MD LAB BLOOD ORDERABLES Final Result Performing Organization Address [facility] de Phone Number [facility] [place] [employer] [place] [address] * Lipase (08/15/2024 11:28 PM CDT) [facility] Lipase 24 10 - 99 Units/L Blood 08/15/2024 11:2 8 PM CDT 08/15/2024 11:31 PM CDT Result [facility] John De Anda MD LAB BLOOD ORDERABLES Final Result Performing Organization Address [facility] de Phone Number [facility] [employer] [place] [address] * Hemoglobin A1c (08/15/2024 11:28 PM CDT) [facility] Hgb A1C 5.2 4.0 - 5.6 % Estimated Average Glucose 103 mg/dL [facility] Comment: The ADA recommends reporting an estimated [...] BLOOD ORDERABLES Final Result Performing Organization Address [facility] Co de Phone Number [facility] [employer] [place] [address] * (ABNORMAL) Lipid panel (08/15/2024 11:28 PM [...] revised on 2018. Triglycerides 93 <=149 mg/dL [facility] Comment: Interpretive Data Ages < or [...] revised on 2018. HDL 27(L) >=40 mg/dL [facility] Comment: Interpretive Data Ages < or [...] 2018. LDL, calculated 45 <=129 mg/dL [facility] Comment: Interpretive Data Ages < or [...] on 2024. Non-HDL Cholesterol 63 mg/dL [facility] Comment: Interpretive Data Ages < or = [...] last revised on 2018. Chol/HDL ratio 3 [facility] Blood 08/15/2024 11:2 8 PM CDT 08/15/2024 11:32 PM CDT us John De Anda MD LAB BLOOD ORDERABLES Final Result [facility] Department [place] [address] * (ABNORMAL) Comprehensive metabolic panel (08/15/2024 11:28 PM CDT) Sodium 132(L) 135 - 145 mmol/L Potassium, pl 3.8 3.3 - 4.9 mmol/L [facility] Chloride 99 97 - 110 mmol/L [facility] CO2 24 22 - 32 mmol/L [facility] Anion gap 9 2 - 15 mmol/L [facility] BUN 7 6 - 25 mg/dL [facility] Creatinine 1.01 0.80 - 1.30 mg/dL [facility] Glucose 122 70 - 199 mg/dL [facility] Comment: Interpretive Data Fasting glucose >/= 126 [...] 2022. Calcium 9.0 8.5 - 10.3 mg/dL [facility] Bilirubin, total <0.2 0.1 - 1.2 mg/dL [facility] Protein, pl 6.7 6.5 - 8.5 g/dL [facility] Albumin 3.2(L) 3.5 - 5.0 g/dL [facility] Alk phos 122 40 - 130 Units/L [facility] ALT 12 7 - 55 Units/L [facility] AST 19 10 - 50 Units/L [facility] Blood 08/15/2024 11:2 8 PM CDT 08/15/2024 11:32 PM CDT us John De Anda MD LAB BLOOD ORDERABLES Final Result [facility] Department [place] [address] from Last 3 Months Insurance [facility] MED[facility] Address: [address] [address] [place] [address] [facility] MEDIC[facility] ADVANTAGE Advance Directives For more information, please contact: [phone] * Full Code (Latest Code Status on File) Date Activated Date Inactivated Comments 09/13/2024 5:18 PM 09/19/2024 4:27 PM * Full Code Date Activated Date Inactivated Comments 08/15/2024 9:08 PM 08/21/2024 8:18 PM * Full Code Date Activated Date Inactivated Comments 01/10/2024 8:34 AM 01/10/2024 4:10 PM * Full Code Date Activated Date Inactivated Comments 09/20/2023 8:13 PM 10/01/2023 6:14 PM * Full Code Date Activated Date Inactivated Comments 06/07/2023 4:45 AM 06/13/2023 8:44 PM Care Teams World Language Teacher Relationship Specialty Start Date End Date Ronnell Escobar NP [address] [place] [id number] PCP - General Nurse Practitioner 08/16/24
--- OUTSIDE RECORDS SUMMARY | 2024-11-03 21:49 | XMS_ITS | Clinical Summary ---
Author Organization [facility] Address [address], [facility] [address] [place] [address] Phone Care Team Providers Care Department Helper Name Role Phone Lamberto Barker Nasra RUCKER Primary Care Provider [phone] Social History Tobacco Use Types Packs/Day Years Used Date Smoking Tobacco: Never Assessed Sex and Gender Information Value Date Recorded Sex Assigned at Not on file Legal Sex Male 8:46 AM CDT Gender Identity Not on file Sexual Orientation Not on file Plan of Treatment Not on file Insurance [facility] [place] [address] Care Teams Department Helper Relationship Specialty Start Date End Date Lamberto Barker DO [address] [place] [address] PCP - General Internal Medicine 09/18/19
--- OUTSIDE RECORDS SUMMARY | 2024-11-03 21:49 | XMS_ITS | Continuity of Care Document ---
Author Organization [facility] Address [address] [place] [address] [address] [place] [address] Phone Care Team Providers Care Informatica Developer Name Role Phone Glenn Maciel Unavailable Unavailable Procedures Procedure Date Therapeutic Activities Neuromuscular Re-Ed Therapeutic Exercise Manual Therapy Therapeutic Activities Neuromuscular Re-Ed Manual Therapy Therapeutic Activities Manual Therapy Neuromuscular Re-Ed Therapeutic Activities Neuromuscular Re-Ed Therapeutic Exercise Manual Therapy Therapeutic Activities Neuromuscular Re-Ed Therapeutic Exercise Manual Therapy Therapeutic Activities Neuromuscular Re-Ed Therapeutic Activities Neuromuscular Re-Ed Therapeutic Exercise Manual Therapy Therapeutic Exercise Neuromuscular Re-Ed Therapeutic Activities Manual Therapy Therapeutic Activities Neuromuscular [...] Exercise Manual Therapy Therapeutic Activities Manual Therapy Neuromuscular Re-Ed Therapeutic Exercise Progress Note Therapeutic Activities Neuromuscular Re-Ed Therapeutic Exercise Manual Therapy Therapeutic Exercise Neuromuscular Re-Ed Therapeutic Activities Neuromuscular [...] Re-Ed Therapeutic Exercise Therapeutic Activities Therapeutic Exercise Therapeutic Activities Neuromuscular Re-Ed Therapeutic Activities Neuromuscular Re-Ed Therapeutic Exercise Neuromuscular Re-Ed Therapeutic Activities Therapeutic Exercise Therapeutic Activities Neuromuscular Re-Ed Therapeutic Exercise Therapeutic Activities Neuromuscular Re-Ed Therapeutic Exercise Therapeutic Activities Therapeutic Exercise Neuromuscular Re-Ed Neuromuscular Re-Ed Therapeutic Exercise Therapeutic Activities Therapeutic [...] Date Provider Providers Copied on Encounter [facility], [address] [address], [place], [place], [id number], [place] tel:[phone] [place] No Information Oct-0 9-202 0 Muehl Glenn. [address] [place] [address], [address], [place], [address], [place]. tel:[phone] [place], [place] [address], [place], [place], [address], [place] tel:[phone] [place] No Information Oct-0 8-202 0 Muehl Glenn. [address] [place] [address], [address], [place], [address], [place]. tel:[phone] [place], [place] [address], [place], [place], [id number], [place] tel:[phone] [place] No Information Oct-0 6-202 0 Lehnen Velma. . [facility] [address] [place], [place] [address], [place], [place], [id number], [place] tel:[phone] [place] No Information Oct-0 2-202 0 Lehnen Velma. . [facility] [address] [place], [place] [address], [place], [address], [place] tel:[phone] [place] No Information Oct-0 1-202 0 Muehl Glenn. [address] [place] [address], [address], [place], [address], [place]. tel:[phone] [place], [place] [address], [place], [place], [address], [place] tel:[phone] [place] No Information Sep-2 9-202 0 Muehl Glenn. [address] [place] [address], [address], [place], [address], [place]. tel:[phone] [place], [place] [address], [place], [place], [address], [place] tel:[phone] [place] No Information Sep-2 4-202 0 Muehl Glenn. [address] [place] [address], [address], [place], [address], [place]. tel:[phone] [place], [place] [address], [place], [address], [place] tel:[phone] [place] No Information Sep-2 2-202 0 Muehl Glenn. [address] [place] [address], [address], [place], [facility], [place]. tel:[phone] [place], [place] [address], [place], [address], tel:[phone] [place] No Information Sep-1 8-202 0 Muehl Glenn. [address] [place] [address], [address], [place], [facility], [place]. tel:[phone] [place] [address] [address], [place], [place], [address], tel:[phone] [place] No Information Sep-1 5-202 0 Muehl Glenn. [address] [place] [address], [address], [place], [facility], [place]. tel:[phone] [place], [place] [address], [place], [id number], tel:[phone] [place] No Information Sep-1 1-202 0 Darío Cervantes. . [address], [place], [place], [id number], tel:[phone] [place] No Information Sep-1 0-202 0 Muehl Glenn. [address] [place] [address], [facility] [address], [place], [facility], [place]. tel:[phone] [place] [address], [place], [address], [place] tel:[phone] [place] No Information Sep-0 8-202 0 Muehl Glenn. [address] [place] [address], [facility] [address], [place], [facility], [place]. tel:[phone] [place] [address], [place], [id number], tel:[phone] [place] No Information Sep-0 4-202 0 Muehl Glenn. [address] [place] [address], [address], [place], [address], [place]. tel:[phone] [place] [address], [place], [address], [place] tel:[phone] [place] No Information Sep-0 3-202 0 Muehl Glenn. [address] [place] [address], [address], [place], [address], [place]. tel:[phone] [place] [address], [place], [address], [place] tel:[phone] [place] No Information Sep-0 1-202 0 Muehl Glenn. [address] [place] [address], [address], [place], [address], [place]. tel:[phone] [place] [address], [place], [address], [place] tel:[phone] [place] No Information Aug-2 8-202 0 Threlkeld Shanell. . [address], [place], [address], [place] tel:[phone] [place] No Information Aug-2 7-202 0 Muehl Glenn. [address] [place] [address], [address], [place], [address], [place]. tel:[phone] [place] [address], [place], [address], [place] tel:[phone] [place] No Information Aug-2 5-202 0 Muehl Glenn. [address] [place] [address], [address], [place], [address], [place]. tel:[phone] [place] [address], [place], [place], [address], [place] tel:[phone] [place] No Information Aug-2 1-202 0 Muehl Glenn. [address] [place] [address], [address], [place], [address], [place]. tel:[phone] [place] [address], [place], [place], [address], [place] tel:[phone] [place] No Information Aug-2 0-202 0 Muehl Glenn. [address] [place] [address], [address], [place], [address], [place]. tel:[phone] [place], [place] [address] [address], [place], [place], [address], [place] tel:[phone] [place] No Information Aug-1 8-202 0 Muehl Glenn. [address] [place] [address], [address], [place], [address], [place]. tel:[phone] [place], [place] [address] [address], [place], [place], [address], [place] tel:[phone] [place] No Information Dec-1 3- 0 Muehl Glenn. [address] [place] [address], [address], [place], [address], [place]. tel:[phone] [place], [place] [address] [address], [place], [place], [address], [place] tel:[phone] [place] No Information Dec-1 1- 0 Muehl Glenn. [address] [place] [address], [address], [place], [address], [place]. tel:[phone] [place], [place] [address] [address], [place], [address], [place] tel:[phone] [place] No Information Aug-0 7-202 0 Niederhoffer Helen. . [facility], [place], [place], [address], [place] tel:[phone] [place] No Information Aug-0 6-202 0 Niederhoffer Helen. . [facility], [place], [place], [address], [place] tel:[phone] [place] No Information Aug-0 5-202 0 Jessa Carreon. . [facility], [place], [address], [place] tel:[phone] [place] No Information Nov- 1-202 0 Muehl Glenn. [address] [place] [address], [address], [place], [address], [place]. tel:[phone] [place] [address] [address], [place], [place], [address], [place] tel:[phone] [place] No Information Nov-3 0-202 0 Muehl Glenn. [address] [place] [address], [address], [place], [address], [place]. tel:[phone] [place] [address] [address], [place], [address], [place] tel:[phone] [place] No Information Nov- 8-202 0 Muehl Glenn. [address] [place] [address], [address], [place], [address], [place]. tel:[phone] [place] [address] [address], [place], [address], [place] tel:[phone] [place] No Information 4-202 0 Muehl Glenn. [address] [place] [address], [address], [place], [address], [place]. tel:[phone] [place] [address] [address], [place], [address], [place] tel:[phone] [place] No Information 3-202 0 Muehl Glenn. [address] [place] [address], [address], [place], [address], [place]. tel:[phone] [place] [address] [address], [place], [place], [address], [place] tel:[phone] [place] No Information 1-202 0 Muehl Glenn. [address] [place] [address], [address], [place], [address], [place]. tel:[phone] [place] [address] [address], [place], [place], [address], [place] tel:[phone] [place] No Information Nov-1 6-202 0 Muehl Glenn. [address] [place] [address], [address], [place], [address], [place]. tel:[phone] [place] [address] [address], [place], [place], [address], [place] tel:[phone] [place] No Information Nov-1 4-202 0 Muehl Glenn. [address] [place] [address], [address], [place], [address], [place]. tel:[phone] [place] [address] [address], [place], [place], [address], [place] tel:[phone] [place] No Information Nov-1 0-202 0 Muehl Glenn. [address] [place] [address], [address], [place], [address], [place]. tel:[phone] [place] [address] [address], [place], [place], [address], [place] tel:[phone] [place] No Information Nov-0 9-202 0 Muehl Glenn. [address] [place] [address], [address], [place], [address], [place]. tel:[phone] [place] [address] [address], [place], [place], [address], [place] tel:[phone] [place] No Information Nov-0 7-202 0 Muehl Glenn. [address] [place] [address], [address], [place], [address], [place]. tel:[phone] [place] [address] [address], [place], [place], [address], [place] tel:[phone] [place] No Information [place]-0 2-202 0 Muehl Glenn. [address] [place] [address], [address], [place], [address], [place]. tel:[phone] [place] [address] [address], [place], [place], [address], [place] tel:[phone] [place] No Information Robert-3 0-202 0 Muehl Glenn. [address] [place] [address], [address], [place], [facility], [place]. tel:[phone] [place], [place] [address], [place], [place], [address], tel:[phone] [place] No Information Robert-2 9-202 0 Muehl Glenn. [address] [place] [address], [address], [place], [facility], [place]. tel:[phone] [place] [address], [place], [address], [place] tel:[phone] [place] No Information Robert-2 6-202 0 Muehl Glenn. [address] [place] [address], [address], [place], [facility], [place]. tel:[phone] [address] [place] [address] 300, [place], [place], [address], [place] tel:[phone] [place] No Information Robert-2 5-202 0 Lehnen Velma. . [address], [place], [place], [address], [place] tel:[phone] [place] No Information Robert-2 3-202 0 Muehl Glenn. [address] [place] [address], [address], [place], [facility], [place]. tel:[phone] [place] [address], [place], [address], [place] tel:[phone] [place] No Information Robert-1 9-202 0 Muehl Glenn. [address] [place] [address], [address], [place], [facility], [place]. tel:[phone] [place], [place] [address], [place], [place], [address], [place] tel:[phone] [place] No Information Robert-1 8-202 0 Muehl Glenn. [address] [place] [address], [address], [place], [facility], [place]. tel:[phone] [place] [address], [place], [address], tel:[phone] [place] No Information Oct-1 6-202 0 Muehl Glenn. [address] [place] [address], [address] [address], . tel:[phone] [place] [address], [id number], tel:[phone] [place] No Information 2-202 0 Muehl Glenn. [address] [place] [address], [address], [place] [address], . tel:[phone] [place] [address], [place], [address], tel:[phone] [place] No Information 1-202 0 Muehl Glenn. [address] [place] [address], [facility] [address], [place], [facility], . tel:[phone] [address] [place] [address], [place], [address], tel:[phone] [place] No Information Robert-0 9-202 0 Muehl Glenn. [address] [place] [address], [address] [address], . tel:[phone] [address] [place] [address], [id number], tel:[phone] [place] No Information Robert-0 5-202 0 Muehl Glenn. [address] [place] [address], [address] [address], . tel:[phone] Family History Family Member Type Diagnosis Age At Onset No Information Payers Payer name Insurance type Covered republican ID Authorboris valdivia(s) [facility] [id number] Social History Type Description Quantity Date Captured [...]
--- OUTSIDE RECORDS SUMMARY | 2024-11-03 21:49 | XMS_ITS | Encounter Summary ---
Author Organization [facility] Healthcare Address [address] [place] [address] Care Team Providers Care Baseball Winder Name Role Phone Don Walton PA Primary Care Provider Ronnell Escobar NP Primary Care Provider [phone] Savanah Galvez RN Unavailable [phone] Encounter Details Date Type Department Care Team (Late st Contact Info) Description 01/25/2022 Orders Only [facility] [address] [place] [address] Jordana Chambers MD [address] [place] [address] Social History Tobacco Use Types Packs/Day Years [...] How often do you attend chur or caodaism services? 1 to 4 times per year [...] place to sleep or slept in a half-way (including now)? No 01/27/2022 Sex and Gender Information Value Date Recorded Sex Assigned at Not on file Legal Sex Male 1:58 AM [employer] DE[employer] Gender Identity Not on file Sexual Orientation [...] COVID: Suspected 06/06/2023 06/06/2023 06/06/2023 9:39 PM TRIBAL DELEGATE C. difficile suspected 08/16/2024 08/16/202408/16 2:48 PM [...] documented as of this encounter Care Teams Baseball Winder Relationship Specialty Start Date End Date Don Walton PA [address] [place] [address] PCP - General Physician Parts Consultant 12/28/21 08/15/24 Ronnell Escobar NP [address] [place] [address] PCP - General Nurse Practitioner 08/16/24 Savanah Galvez, RN [address] [facility] [address] [place] [address] SHOP Outpatient Guest Services Manager 08/22/24 08/25/24 documented as of this encounter
--- OUTSIDE RECORDS SUMMARY | 2024-11-03 21:49 | XMS_ITS | Referral Summary ---
Author Organization [facility] Address [address] [place] [address] Care Team Providers Care Personnel Associate Name Role Phone Ronnell Escobar NP Primary Care Provider Encounters Date Type Department Care Team Description 10/31/2024 Documentation [facility] Case Management [address] [place] [id number] Izabella Pérez 10/15/2024 Telephone [facility] [address] [place] [address] Advanced Medicine [facility] [place] [address] [place] [phone] Samson Esteban 09/30/2024 Telephone [facility] Advanced Medicine [facility] [place] [address] [place] [address] Samson Esteban Scheduling Appointments 09/13/2024 2:28 PM CDT - 09/19/2024 12:27 PM CDT Hospital Encounter [address] [address] Melyssa Pastor MD Potluri, Sobhana Krishna, MD Alcohol withdrawal syndrome without complication (HCC) (Primary Dx); Acute on chronic pancreatitis (HCC) Discharge Disposition: Discharge to an Rehab facility 08/28/2024 Telephone [facility]enter[facility] Advanced Medicine 12th [place] [address] [place] [phone] Carlito, Samson imaging due 08/28/2024 Orders Only [facility]enter[facility] [address] [facility] 12th [place] [address] [place] [phone] Kenneth Loya MD Necrotizing pancreatitis (Primary Dx) 08/26/2024 SHOP/CHAP Initial Outreach [facility] [address] [place] [phone] Savanah Galvez, DALE 08/23/2024 SHOP/CHAP Initial Outreach [facility] 1 [place] [phone] Savanah Galvez RN 08/23/2024 Documentation [facility] [address] [facility] [address], [address] [place] [phone] Sadaf Yates RN GI f/u recs 08/22/2024 SHOP/CHAP Initial Outreach [facility] 1 [place] [phone] Savanah Galvez RN 08/22/2024 SHOP/CHAP Initial Eligibility Review [facility] 1 [place] [phone] Savanah Galvez RN 08/15/2024 9:03 PM CDT - 08/21/2024 4:12 PM CDT Hospital Encounter [address] [phone] John De Anda MD Thoelke, Mark S W., MD Discharge Disposition: Discharge to home or self care from Last 3 Months Allergies Active Allergy Reactions Criticality Noted Date Comments Ciprofloxacin Hives Medium 06/02/2023 Patient stated he has previously tolerated PO. 06/02/23 had redness and hives after IV dose. Penicillins Rash Medium 05/08/2019 Sjitfjhzakdv-Rqzxogexyd-Ztp trs Angioedema High 09/17/[address] [...] constipation 60 tablet 07/13/19 22 Active multivit pjrtcmms-pcos-FL-noe cium (THERA-M) 9 mg iron-400 mcg tablet [...] 06/10/2023 Assessment & Plan (06/12/2023 2:18 PM FOAM MACHINE OPERATOR): Patient reports feeling constipated, gassy and [...] 06/08/2023 Assessment & Plan (06/09/2023 1:55 PM FOAM MACHINE OPERATOR): Resolved. Acute pancreatitis, unspecif ied complication status, unspecified pancreatitis type 06/04/2023 Assessment & Plan (06/05/2023 12:45 PM FOAM MACHINE OPERATOR): Longstanding bouts of pancreatitis originally from [...] 06/04/2023 Assessment & Plan (06/05/2023 12:48 PM FOAM MACHINE OPERATOR): Likely from pancreatitis. Also tender to palpation initially so may be a musculoskeletal component from dry heaving. Trops negative. EKG no ischemic changes. He reports hx of AK in the past, unclear circumstances. He had an exercise stress test in spring at an outside facility that he says was normal. Cont ASA. Gram-negative bacteremia 04/11/2023 Assessment & Plan (04/13/2023 7:02 PM FOAM MACHINE OPERATOR): - due to cholangitis - BCx + for E coli and K. Pneumoniae - repeat BCx drawn 04/11, ngtd - pansensitive organisms - d/c home today with flagyl/cipro Cholangitis 04/10/2023 Assessment & Plan (04/12/2023 6:21 PM FOAM MACHINE OPERATOR): - Improving - 04/10 ERCP - removal of two migrates stents with biliary obstruction and replaced with 2 new stents in biliary stricture - PRN analgesics and antiemetics Assessment & Plan (04/10/2023 2:40 AM FOAM MACHINE OPERATOR): -meets [place] criteria for acute cholangitis [...] 01/04/2022 Assessment & Plan (06/13/2023 2:35 PM FOAM MACHINE OPERATOR): Recently admitted from 06/04-06/05/23 after ERCP [...] (01/05/2022): Added automatically from request for surgery [id number] Assessment & Plan (04/11/2023 3:57 PM FOAM MACHINE OPERATOR): - improving -2/2 stent migration and resultant biliary obstruction Assessment & Plan (04/10/2023 2:27 AM FOAM MACHINE OPERATOR): -2/2 stent migration and resultant biliary obstruction -mgmt as above -repeat HFP in AM 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 Overview (11/30/2021): Added automatically from request for surgery [id number] Encounter for replacement of biliary stent 11/30 Overview (11/30/2021): Added automatically from request for surgery [id number] 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 Pancreatic pseudocyst 07/26/2021 Severe sepsis 07/08/2021 Assessment & Plan (07/13/2021 9:43 AM FOAM MACHINE OPERATOR): Pt elevated temp on 07/07 overnight 38.1 [...] infection Assessment & Plan (07/12/2021 9:40 AM FOAM MACHINE OPERATOR): Pt elevated temp on 2 overnight [...] infection Assessment & Plan (07/11/2021 10:55 AM FOAM MACHINE OPERATOR): Pt elevated temp on 2 overnight [...] bed Assessment & Plan (07/10/2021 9:10 AM FOAM MACHINE OPERATOR): Pt elevated temp on 209 overnight 38.1 [...] daily Assessment & Plan (07/09/2021 2:23 PM FOAM MACHINE OPERATOR): Pt elevated temp on 07/07 overnight 38.1 [...] daily Assessment & Plan (07/08/2021 1:53 PM FOAM MACHINE OPERATOR): Pt elevated temp overnight 38.1 max, [...] 07/07/2021 Assessment & Plan (07/13/2021 9:43 AM FOAM MACHINE OPERATOR): Dobbhoff placed 07/08, tube feeding to initiated Osmolite 1.5 at 55mL/hr over 24h via NJ tube continuous via pump. Flush with 150mL water q4h. Now at goal of 55cc/hr. Can cycle at home as instructed. Will continue TF until follow up with GI as outpatient Assessment & Plan (07/12/2021 9:39 AM FOAM MACHINE OPERATOR): Cherelle placed 07/08, tube feeding to initiated Osmolite 1.5 at 55mL/hr over 24h via NJ tube continuous via pump. Flush with 150mL water q4h. Now at goal of 55cc/hr. Can cycle at home as instructed. Will continue TF until follow up with GI as outpatient Assessment & Plan (07/11/2021 10:55 AM FOAM MACHINE OPERATOR): Cherelle placed 07/08, tube feeding to [...] Phos Assessment & Plan (07/10/2021 9:08 AM FOAM MACHINE OPERATOR): Cherelle placed 07/08, tube feeding to [...] Phos Assessment & Plan (07/09/2021 2:25 PM FOAM MACHINE OPERATOR): Cherelle placed 07/08, tube feeding to [...] prn Assessment & Plan (07/08/2021 1:11 PM FOAM MACHINE OPERATOR): Cherelle placed 07/08, tube feeding to initiate TF recommendations: Goal: Osmolite 1.5 at 55mL/hr over 24h via NJ tube continuous via pump. Flush with 150mL water q4h. Initiate TF at 10mL/hr and increase by 10mL q4h until goal rate is reached Chronic pancreatitis, unspecified pancreatitis t ype 07/06/2021 Assessment & Plan (07/13/2021 9:42 AM FOAM MACHINE OPERATOR): Ongoing acute episode of (developing) chronic [...] home Assessment & Plan (07/12/2021 9:38 AM FOAM MACHINE OPERATOR): Ongoing acute episode of (developing) chronic [...] rest with enteral feedings. GI consult pt bbhoff placed 2/[address] c/s tube feeding plan initiated and now at goal feeding and tolerating well. Will wean from IV pain meds to oxycodone for discharge tomorrow 07/13 Assessment & Plan (07/11/2021 10:53 AM FOAM MACHINE OPERATOR): Ongoing acute episode of (developing) chronic [...] discharge Assessment & Plan (07/10/2021 9:07 AM FOAM MACHINE OPERATOR): Ongoing acute episode of developing chronic [...] feedings Assessment & Plan (07/09/2021 2:30 PM FOAM MACHINE OPERATOR): Ongoing acute episode of chronic pancreatitis. [...] CTM Assessment & Plan (07/08/2021 1:49 PM FOAM MACHINE OPERATOR): Ongoing acute episode of chronic pancreatitis. [...] plan Assessment & Plan (07/07/2021 11:22 AM FOAM MACHINE OPERATOR): Ongoing acute episode of chronic pancreatitis. [...] plan Assessment & Plan (07/06/2021 5:30 PM FOAM MACHINE OPERATOR): Ongoing acute episode of chronic pancreatitis. [...] 07/06/2021 Assessment & Plan (07/13/2021 9:42 AM FOAM MACHINE OPERATOR): Likely ATN related to hypotensive episode. Cr peaked at Cr at 2.31, now back to baseline after aggressive IVF and now tolerating TF. Assessment & Plan (07/12/2021 9:36 AM FOAM MACHINE OPERATOR): Likely ATN related to hypotensive episode. Cr peaked at Cr at 2.31, now back to baseline after aggressive IVF and now tolerating TF. Assessment & Plan (07/11/2021 10:54 AM FOAM MACHINE OPERATOR): Likely ATN related to hypotensive episode. Cr peaked at Cr at 2.31, now back to baseline after aggressive IVF, continue to monitor bmp, continue fluids Assessment & Plan (07/10/2021 9:08 AM FOAM MACHINE OPERATOR): Likely ATN related to hypotensive episode. Cr peaked at Cr at 2.31, now back to baseline after aggressive IVF, continue to monitor bmp, continue fluids Assessment & Plan (07/09/2021 2:29 PM FOAM MACHINE OPERATOR): Cr at baseline after aggressive IVF, continue to monitor bmp, continue fluids Assessment & Plan (07/08/2021 1:10 PM FOAM MACHINE OPERATOR): Cr baseline 0.8 now up to 1.3 on arrival due to po intolerance Aggressive IVF will monitor urine output Today net fluid intake 191 Cr trended up to 2.31 continue aggressive fluids Daily bmp Continue IVF Assessment & Plan (07/07/2021 11:19 AM FOAM MACHINE OPERATOR): Cr baseline 0.8 now up to 1.3 on arrival due to po intolerance Aggressive IVF will monitor urine output Today net fluid intake 191 Cr 1.05 improving with fluids Daily bmp Continue IVF Assessment & Plan (07/06/2021 5:39 PM FOAM MACHINE OPERATOR): Cr baseline 0.8 now up to 1.3 on arrival due to po intolerance Aggressive IVF will monitor urine output Alcohol dependence 06/25/2021 Assessment & Plan (06/07/2023 5:01 AM FOAM MACHINE OPERATOR): Last drink on and he reports being [...] program Assessment & Plan (07/13/2021 9:42 AM FOAM MACHINE OPERATOR): Has a long history of alcohol [...] Group Assessment & Plan (07/12/2021 9:36 AM FOAM MACHINE OPERATOR): Has a long history of alcohol [...] Group Assessment & Plan (07/11/2021 10:54 AM FOAM MACHINE OPERATOR): Has a long history of alcohol [...] Group Assessment & Plan (07/10/2021 9:05 AM FOAM MACHINE OPERATOR): Has a long history of alcohol [...] Group Assessment & Plan (07/09/2021 2:33 PM FOAM MACHINE OPERATOR): Has a long history of alcohol [...] Group Assessment & Plan (07/08/2021 1:06 PM FOAM MACHINE OPERATOR): Has a long history of alcohol use with dependence. He states he has not had a drink since before his ERCP 06/22/2021 and has been on Vivitrol injections. His ethanol level on arrival to the ED is negative Plan to continue EtOH cessation and support with outpatient naltrexone therapy. Assessment & Plan (07/07/2021 11:13 AM FOAM MACHINE OPERATOR): Has a long history of alcohol use with dependence. He states he has not had a drink since before his ERCP 06/22/2021 and has been on Vivitrol injections. His ethanol level on arrival to the ED is negative Plan to continue EtOH cessation and support with outpatient naltrexone therapy. Assessment & Plan (07/06/2021 5:22 PM FOAM MACHINE OPERATOR): Has a long history of alcohol use with dependence. He states he has not had a drink since before his ERCP 06/22/2021 and has been on Vivitrol injections. His ethanol level on arrival to the ED is negative Plan to continue EtOH cessation and support with outpatient naltrexone therapy Assessment & Plan (06/28/2021 11:39 AM FOAM MACHINE OPERATOR): Long standing hx of alcohol dependence [...] needed Assessment & Plan (06/27/2021 11:47 AM FOAM MACHINE OPERATOR): Long standing hx of alcohol dependence [...] needed Assessment & Plan (06/26/2021 11:59 AM FOAM MACHINE OPERATOR): Long standing hx of alcohol dependence [...] 06/25/2021 Assessment & Plan (06/07/2023 5:06 AM FOAM MACHINE OPERATOR): Markedly hypertensive on ED arrival in the setting of pain -Continue home Amlodipine 10 mg qday and losartan 25 mg qday Assessment & Plan (06/05/2023 12:47 PM FOAM MACHINE OPERATOR): Hypertensive initially from pain. Improved today. Cont home meds. Assessment & Plan (04/12/2023 6:21 PM FOAM MACHINE OPERATOR): -continue norvasc Assessment & Plan (04/10/2023 2:31 AM FOAM MACHINE OPERATOR): -resume norvasc in AM Assessment & Plan (01/11/2022 11:23 AM CDT): Continue norvasc Assessment & Plan (01/10/2022 11:40 AM CDT): Continue norvasc Assessment & Plan (07/13/2021 9:43 AM FOAM MACHINE OPERATOR): Continue to hold home lisinopril on account of recent hypotension/JOSE. With low normotensive BP will discontinue lisinopril. Follow up with PCP in 2-4 weeks to re evaluate restarting if needed Assessment & Plan (07/12/2021 9:38 AM FOAM MACHINE OPERATOR): Continue to hold home lisinopril on account of recent hypotension/JOSE. BP normal, may not require lisinopril on discharge. Assessment & Plan (07/11/2021 10:54 AM FOAM MACHINE OPERATOR): Continue to hold home lisinopril on account of recent hypotension/JOSE. BP normal, may not require lisinopril on discharge. Assessment & Plan (07/10/2021 9:06 AM FOAM MACHINE OPERATOR): Continue to hold home lisinopril on account of recent hypotension Assessment & Plan (07/09/2021 2:32 PM FOAM MACHINE OPERATOR): Continue to hold home lisinopril until more stable BP Assessment & Plan (07/08/2021 1:06 PM FOAM MACHINE OPERATOR): BP hypotensive overnight hold antihypertensives at this time. Assessment & Plan (07/07/2021 11:15 AM FOAM MACHINE OPERATOR): BP on remain normotensive Continue lisinopril and pain control Assessment & Plan (07/06/2021 5:30 PM FOAM MACHINE OPERATOR): BP on arrival normotensive Continue lisinopril and pain control Assessment & Plan (06/28/2021 11:39 AM FOAM MACHINE OPERATOR): Continue home lisinopril 40 mg -Monitor BP -BP stable Assessment & Plan (06/27/2021 11:48 AM FOAM MACHINE OPERATOR): Continue home lisinopril 40 mg -Monitor BP/Cr -BP stable Assessment & Plan (06/25/2021 4:55 PM FOAM MACHINE OPERATOR): Continue home lisinopril 40 mg -Monitor BP/Cr -Daily BMP Tobacco abuse 06/25/2021 Major depressive disorder 06/25/2021 Assessment & Plan (06/07/2023 5:07 AM FOAM MACHINE OPERATOR): Continue home duloxetine 30 mg BID and trazodone 50 mg qhs Assessment & Plan (06/04/2023 11:58 AM FOAM MACHINE OPERATOR): Cont home meds Assessment & Plan (01/11/2022 11:23 AM CDT): Continue duloxetine scheduled and trazodone prn Assessment & Plan (01/10/2022 11:40 AM CDT): Continue duloxetine scheduled and trazodone prn Assessment & Plan (07/13/2021 9:43 AM FOAM MACHINE OPERATOR): Most certainly contributing to his long standing alcohol use. Continue home meds duloxetine and trazodone Assessment & Plan (07/12/2021 9:38 AM FOAM MACHINE OPERATOR): Most certainly contributing to his long standing alcohol use. Continue home meds duloxetine and trazodone Assessment & Plan (07/11/2021 10:54 AM FOAM MACHINE OPERATOR): Most certainly contributing to his long standing alcohol use. Continue home meds duloxetine and trazodone Assessment & Plan (07/10/2021 9:06 AM FOAM MACHINE OPERATOR): Most certainly contributing to his long standing alcohol use. Continue home meds duloxetine and trazodone Assessment & Plan (07/09/2021 2:30 PM FOAM MACHINE OPERATOR): Most certainly contributing to his long standing alcohol use now with cessation Continue home meds duloxetine and trazodone Assessment & Plan (07/08/2021 1:09 PM FOAM MACHINE OPERATOR): Most certainly contributing to his long standing alcohol use now with cessation Continue home meds duloxetine and trazodone Assessment & Plan (07/07/2021 11:16 AM FOAM MACHINE OPERATOR): Most certainly contributing to his long standing alcohol use now with cessation Continue home meds duloxetine and trazodone Assessment & Plan (07/06/2021 5:32 PM FOAM MACHINE OPERATOR): Most certainly contributing to his long standing alcohol use now with cessation Continue home meds duloxetine and trazodone Assessment & Plan (06/28/2021 11:39 AM FOAM MACHINE OPERATOR): Continue home Trazodone 50 mg, Cymbalta 30 mg Resume Biofeedback at discharge Assessment & Plan (06/27/2021 11:48 AM FOAM MACHINE OPERATOR): Continue home Trazodone 50 mg, Cymbalta 30 mg Resume Biofeedback at discharge Assessment & Plan (06/25/2021 4:57 PM FOAM MACHINE OPERATOR): Continue home Trazodone 50 mg, Cymbalta 30 mg Resume Biofeedback at discharge Pancreatic duct obstruction 06/11/2021 Overview (06/11/2021): Added automatically from request for surgery [id number] Abdominal pain 06/11/2021 Overview (06/11/2021): Added automatically from request for surgery [id number] Necrotizing pancreatitis 10/21/2019 Therapeutic opioid induced constipation 10/21/19 20 Assessment & Plan (07/13/2021 9:44 AM FOAM MACHINE OPERATOR): Continue bowel regimen Assessment & Plan (07/12/2021 9:41 AM FOAM MACHINE OPERATOR): Bowel regimen ordered without BM. Will titrate bowel regimen Assessment & Plan (07/11/2021 10:58 AM FOAM MACHINE OPERATOR): Bowel regimen ordered Assessment & Plan (06/28/2021 11:39 AM FOAM MACHINE OPERATOR): Pt states no BM for the past week. Likely due to decrease intake and vomiting, possible contribution from opioids -daily bowel regimen, had BM Monday Assessment & Plan (06/27/2021 11:48 AM FOAM MACHINE OPERATOR): Pt states no BM for the past week. Likely due to decrease intake and vomiting, possible contribution from opioids -daily bowel regimen Assessment & Plan (06/26/2021 12:00 PM FOAM MACHINE OPERATOR): Pt states no BM for the past week. Likely due to decrease intake and vomiting, possibly contribution from opioids -daily bowel regimen -clear liquid diet Acute pancreatitis 05/08/2019 Assessment & Plan (06/28/2021 11:38 AM FOAM MACHINE OPERATOR): Hx of chronic pancreatis starting 3 [...] prioritized. Assessment & Plan (06/27/2021 11:46 AM FOAM MACHINE OPERATOR): Hx of chronic pancreatis starting 3 [...] prioritized. Assessment & Plan (06/26/2021 11:59 AM FOAM MACHINE OPERATOR): Hx of chronic pancreatis starting 3 [...] 04/11/2023 Assessment & Plan (04/10/2023 2:38 AM FOAM MACHINE OPERATOR): -migrated stent likely etiology of presenting symptoms and lab, CT findings -will likely need ERCP for stent exchange on Monday Metabolic acidosis, increased anion gap (IAG) 06/25/19 22 07/09/2021 Assessment & Plan (07/09/2021 2:31 PM FOAM MACHINE OPERATOR): Dobbhoff placed 07/08, to start tube feeding TF recommendations: Goal: Osmolite 1.5 at 55mL/hr over 24h via [place] tube continuous via pump. Flush with 150mL water q4h. Initiate TF at 10mL/hr and increase by 10mL q4h until goal rate is reached Assessment & Plan (07/08/2021 1:49 PM FOAM MACHINE OPERATOR): Due to starvation in the setting [...] reached Assessment & Plan (07/07/2021 11:16 AM FOAM MACHINE OPERATOR): Due to starvation in the setting of intolerance to PO for the last 3-4 days. Will provide aggressive IVF Continue to discuss enteral feedings with the patient going forward, currently pt is refusing, GI will readdress with pt today with goal for placement today should pt agree. Change IVF to D5LR Assessment & Plan (07/06/2021 5:38 PM FOAM MACHINE OPERATOR): Due to starvation in the setting of intolerance to PO for the last 3-4 days. Will provide aggressive IVF Continue to discuss enteral feedings with the patient going forward Assessment & Plan (06/28/2021 11:39 AM FOAM MACHINE OPERATOR): Likely dehydration from pancreatitis, n/v and poor intake. Heme concentrated hgb 14.9 (baseline 8-9), wbc 14.4 no source of infection likely heme concentrated, anion gap 20, UA ketone +1. Resolved with IVF Assessment & Plan (06/27/2021 11:47 AM FOAM MACHINE OPERATOR): Likely dehydration from pancreatitis, n/v and poor intake. Heme concentrated hgb 14.9 (baseline 8-9), wbc 14.4 no source of infection likely heme concentrated, anion gap 20, UA ketone +1. Resolved with IVF Assessment & Plan (06/26/2021 12:00 PM FOAM MACHINE OPERATOR): Likely dehydration from pancreatitis, n/v and [...] drink = 0.6 oz pur e alcohol) [facility] Utilities Answer Date Recorded In the past 12 months has e [employer], gas, oil, or water [employer] threatened to shut off services in your home? No 09/16/2024 Social Connection and Isolation Panel [NHANES] A nswer Date Recorded In a typical week, how many times do you talk on the phone with family, friends, or neighbors? Three times a week 09/17/19 How often do you get togethe r with friends or relatives? Three times a week 09/16/2024 How often do you attend chur ch or baptism services? 1 to 4 times per year 09/16/2024 Do you belong to any clubs o r organizations such as hindu groups, unions, fraternal or athletic groups, or [...] housing, medical care, and heating? Hard 09/16/2024 [facility] of Occupat ional Health - Occupational Stress [...] slept in a snf (including now)? No 09/21/2023 Housing Stability Vital [...] were you homeless or living in a snf (including now)? Yes 09/16/2024 Personal Safety Answer Date Recorded Have you ever been in or are you currently in a harmful physical or emotional relationship or is someone making you feel afraid or unsafe? Denies 09/13/2024 Sex and Gender Information Value Date Recorded Sex Assigned at Not on file Legal Sex Male 1:58 AM FOAM MACHINE OPERATOR Gender Identity Not on file [...] 09/13/2024 8:02 PM CDT Plan of Treatment Not on file Medical Devices Implanted Type Area Fire Production Operator Device Identifier Shelf Expiration Date Model / Serial / Lot [employer] 8.5 Fr Nasal Biliary Catheter [id number] - [id number] Implanted:Qty: 1 on 01/26/2022 by Kenneth Loya MD at [facility] Catheter [employer] 06/22/2024 [id number] / / [id number] [employer] 10fr 5cm Biliary Double Pigtail Stent [id number] - [id number] Implanted:Qty: 1 on 09/21/2023 by Kenneth Loya MD at [facility] Stent N/A: Bile Duct [employer] 08/14/2025 [id number] / / [id number] [employer] 10fr 5cm Biliary Stent [id number] - [id number] Implanted:Qty: 1 on 09/21/2023 by Kenneth Loya MD at [facility] Stent N/A: Bile Duct [employer] 07/03/2025 [id number] / / [id number] [employer] 10fr 5cm Biliary Double Pigtail Stent [id number] - [id number] Implanted:Qty: 1 on 09/21/2023 by Kenneth Loya MD at [facility] Stent N/A: Bile Duct [employer] 08/23/2025 [id number] / / [id number] [employer] 10fr 5cm Biliary Double Pigtail Stent [id number] - [id number] Implanted:Qty: 1 on 09/21/2023 by Kenneth Loya MD at [facility] Stent N/A: Bile Duct [employer] 08/23/2025 [id number] / / [id number] [employer] 10fr 5cm Biliary Double Pigtail Stent [id number] - [id number] Implanted:Qty: 1 on 09/21/2023 by Kenneth Loya MD at [facility] Stent N/A: Bile Duct [employer] 08/14/2025 [id number] / / [id number] [employer] 10fr 7cm Biliary Stent [id number] - [id number] Implanted:Qty: 1 on 04/10/2023 by John De Anda MD at [facility] [employer] [id number] 12/13/2024 [id number] / / [id number] [employer] 10fr 7cm Biliary Stent [id number] - [id number] Implanted:Qty: 1 on 04/10/2023 by John De Anda MD at [facility] [employer] [id number] 02/07/2025 [id number] / / [id number] Explanted Type Area Fire Production Operator Device Identifier Shelf Expiration Date Model / Serial / Lot [employer] [id number] Cotton-Young 10fr 7cm Taper Tip Guidewire Proximal Distal Flap - [id number] Implanted:Qty: 1 on 08/04/2021 by Kenneth Loya MD at [facility] Explanted:Qty: 1 on 08/30/2021 at [facility] Stent N/A: Bile Duct [employer] 01/28/2024 [id number] / / [id number] Axios 10 X 10 Stent Delivery System [id number] - [id number] Implanted:Qty: 1 on 08/04/2021 by Kenneth Loya MD at [facility] Explanted:Qty: 1 on 08/30/2021 at [facility] Stent N/A: Bile Duct [employer] 10/13/2022 [id number] / / [id number] [employer] Geenen 7fr 7cm Positioning Sleeve Push Catheter Guidewire [id number] - [id number] Implanted:Qty: 1 on 08/30/2021 at [facility] Explanted:Qty: 1 on 11/01/2021 by Kenneth Loya MD at [facility] Stent N/A: Pancreas [employer] 11/06/2023 [id number] / / [id number] [employer] 10fr 5cm Biliary Stent [id number] - [id number] Implanted:Qty: 1 on 01/26/2022 by Kenneth Loya MD at [facility] Explanted:Qty: 1 on 04/06/2022 by Kenneth Loya MD at [facility] Stent [employer] 11/16/2023 [id number] / / [id number] [employer] Advanix Naviflex 7fr 9cm Radiopaque Vida Endo Marker Color Coded [id number] - [id number] Implanted:Qty: 1 on 01/26/2022 by Kenneth Loya MD at [facility] Explanted:Qty: 1 on 04/06/2022 at [facility] Stent [employer] 04/16/2023 [id number] / / [id number] [employer] Advanix 8.5fr 7cm Rapid Exchange Temporary [place] Stent [id number] - [id number] Implanted:Qty: 1 on 04/06/2022 by Kenneth Loya MD at [facility] Explanted:Qty: 1 on 07/06/2022 by Kenneth Loya MD at [facility] Stent N/A: Pancreas [employer] 10/26/2023 [id number] / / [id number] [employer] Advanix 8.5fr 7cm Rapid Exchange Temporary [place] Stent [id number] - [id number] Implanted:Qty: 1 on 04/06/2022 by Kenneth Loya MD at [facility] Explanted:Qty: 1 on 07/06/2022 by Kenneth Loya MD at [facility] Stent N/A: Pancreas [employer] 10/26/2023 [id number] / / [id number] [employer] 10fr 5cm Biliary Stent [id number] - [id number] Implanted:Qty: 1 on 09/08/2022 by Kenneth Loya MD at [facility] Explanted:Qty: 1 on 11/03/2022 by Kenneth Loya MD at [facility] Stent N/A: Bile Duct [employer] 08/07/2024 [id number] / / [id number] [employer] 10fr 5cm Biliary Stent [id number] - [id number] Implanted:Qty: 1 on 09/08/2022 by Kenneth Loya MD at [facility] Explanted:Qty: 1 on 11/03/2022 by Kenneth Loya MD at [facility] Stent N/A: Bile Duct [employer] 05/04/2024 [id number] / / [id number] [employer] Cartwright Flexi-Stent 7fr 7cm Small Pigtail Flexible .035in Stent 6574 - [id number] Implanted:Qty: 1 on 09/08/2022 by Kenneth Loya MD at [facility] Explanted:Qty: 1 on 11/03/2022 by Kenneth Loya MD at [facility] Stent N/A: Bile Duct [employer] 05/28/2027 [id number] / / [id number] [employer] Geenen 8.5fr 9cm Drain Obstructed Positioning Sleeve Pushing [id number] - [id number] Implanted:Qty: 1 on 04/06/2022 by Kenneth Loya MD at [facility] Explanted:Qty: 1 on 01/05/2023 by Kenneth Loya MD at [facility] Stent N/A: Pancreas [employer] 05/03/2024 [id number] / / [id number] [employer] Cartwright Flexi-Stent 7fr 7cm Small Pigtail Flexible .035in Stent 6574 - [id number] Implanted:Qty: 1 on 11/03/2022 by Kenneth Loya MD at [facility] Explanted:Qty: 1 on 01/05/2023 by Kenneth Loya MD at [facility] Stent N/A: Pancreas [employer] 05/28/2027 6574 / / [id number] [employer] 10fr 5cm Biliary Stent [id number] - [id number] Implanted:Qty: 1 on 11/03/2022 by Kenneth Loya MD at [facility] Explanted:Qty: 1 on 01/05/2023 at [facility] Stent N/A: Bile Duct [employer] 08/15/2024 [id number] / / [id number] [employer] Cotton-Young 10fr 5cm Taper Tip Soft Proximal Distal Flap Gentle [id number] - [id number] Implanted:Qty: 1 on 11/03/2022 by Kenneth Loya MD at [facility] Explanted:Qty: 1 on 01/05/2023 by Kenneth Loya MD at [facility] Stent N/A: Bile Duct [employer] 08/10/2025 [id number] / / [id number] [employer] Cartwright Flexi-Stent 4fr 7cm Small Pigtail Flexible .025in Stent 6544 - [id number] Implanted:Qty: 1 on 01/05/2023 by Kenneth Loya MD at [facility] Explanted:Qty: 1 on 06/02/2023 at [facility] Stent N/A: Pancreas [employer] 07/27/2027 [id number] / / [id number] Description:Not present on t his procedure [employer] 10fr 7cm Biliary Stent [id number] - [id number] Implanted:Qty: 1 on 01/05/2023 by Kenneth Loya MD at [facility] Explanted:Qty: 1 on 06/02/2023 by Jero Soto MD at [facility] Stent N/A: Bile Duct [employer] 12/13/2024 [id number] / / [id number] [employer] 10fr 7cm Biliary Stent [id number] - [id number] Implanted:Qty: 1 on 01/05/2023 by Kenneth Loya MD at [facility] Explanted:Qty: 1 on 06/02/2023 by Jero Soto MD at [facility] Stent N/A: Bile Duct [employer] 12/13/2024 [id number] / / [id number] [employer] 10fr 5cm Biliary Double Pigtail Stent [id number] - [id number] Implanted:Qty: 1 on 06/02/2023 by Kenneth Loya MD at [facility] Explanted:Qty: 1 on 09/21/2023 by Kenneth Loya MD at [facility] Stent N/A: Bile Duct [employer] 04/30/2025 [id number] / / [id number] [employer] 10fr 5cm Biliary Double Pigtail Stent [id number] - [id number] Implanted:Qty: 1 on 06/02/2023 by Kenneth Loya MD at [facility] Explanted:Qty: 1 on 09/21/2023 by Kenneth Loya MD at [facility] Stent N/A: Bile Duct [employer] 04/30/2025 [id number] / / [id number] [employer] 10fr 5cm Biliary Stent [id number] - [id number] Implanted:Qty: 1 on 06/02/2023 by Kenneth Loya MD at [facility] Explanted:Qty: 1 on 09/21/2023 by Kenneth Loya MD at [facility] Stent N/A: Bile Duct [employer] 02/28/2025 [id number] / / [id number] [employer] 10fr 5cm Biliary Double Pigtail Stent [id number] - [id number] Implanted:Qty: 1 on 06/02/2023 by Kenneth Loya MD at [facility] Explanted:Qty: 1 on 09/21/2023 by Kenneth Loya MD at [facility] Stent N/A: Bile Duct [employer] 04/30/2025 [id number] / / [id number] [employer] [id number] Advanix 10fr 5cm Rapid Exchange Temporary [place] Stent - [id number] Implanted:Qty: 1 on 06/18/2021 by Kenneth Loya MD at [facility] Explanted:Qty: 1 on 08/30/2021 at [facility] [employer] 06/30/2022 [id number] / / [id number] Description:Removed prior [employer] Advanix Od10 Fr L7 Cm 1; Temporary Duodenal Bend Stent Biliary Pl [id number] - [id number] Implanted:Qty: 1 on 08/30/2021 at [facility] Explanted:Qty: 1 on 11/01/2021 by Kenneth Loya MD at [facility] N/A: Bile Duct [employer] 06/25/2022 [id number] / / [id number] [employer] Advanix Naviflex 10fr 9cm Lead Joana Radiopaque Flexible [id number] - [id number] Implanted:Qty: 1 on 11/01/2021 by Kenneth Loya MD at [facility] Explanted:Qty: 1 on 01/05/2022 by Contreras Girard MD at [facility] N/A: Pancreas [employer] 07/18/2022 [id number] / / [id number] 10fr 5cm Biliary Stent [id number] - [id number] Implanted:Qty: 1 on 11/01/2021 by Kenneth Loya MD at [facility] Explanted:Qty: 1 on 01/05/2022 at [facility] N/A: Bile Duct [employer] 08/12/2023 [id number] / / [id number] 10fr 7cm Biliary Stent [id number] - [id number] Implanted:Qty: 1 on 11/01/2021 by Kenneth Loya MD at [facility] Explanted:Qty: 1 on 01/05/2022 by Contreras Girard MD at [facility] N/A: Bile Duct [employer] 08/23/2023 [id number] / / [id number] [employer] Cotton-Young 10fr 5cm Taper Tip Soft Proximal Distal Flap Gentle [id number] - [id number] Implanted:Qty: 1 on 01/05/2022 by Contreras Girard MD at [facility] Explanted:Qty: 1 on 01/26/2022 at [facility] N/A: Bile Duct [employer] 05/07/2022 [id number] / / [id number] [employer] Advanix 7fr 7cm Lead Joana Radiopaque Vida Endo Marker Drainage [id number] - [id number] Implanted:Qty: 1 on 07/06/2022 by Kenneth Loya MD at [facility] Explanted:Qty: 1 on 09/08/2022 by Kenneth Loya MD at [facility] N/A: Pancreas [employer] 05/03/2023 [id number] / / [id number] [employer] 10fr 5cm Biliary Stent [id number] - [id number] Implanted:Qty: 1 on 07/06/2022 by Kenneth Loya MD at [facility] Explanted:Qty: 1 on 09/08/2022 by Kenneth Loya MD at [facility] N/A: Bile Duct [employer] 12/24/2022 [id number] / / [id number] [employer] 10fr 5cm Biliary Stent [id number] - [id number] Implanted:Qty: 1 on 07/06/2022 by Kenneth Loya MD at [facility] Explanted:Qty: 1 on 09/08/2022 by Kenneth Loya MD at [facility] N/A: Bile Duct [employer] 11/16/2023 [id number] / / [id number] [employer] 10fr 7cm Biliary Stent [id number] - [id number] Explanted:Qty: 1 on 04/10/2023 by John De Anda MD at [facility] [employer] [id number] 12/13/2024 [id number] / / [id number] Description:Unable to place despite multiple attempts Procedures [...] Results * eGFR (09/14/2024 7:03 AM CDT) eGFR >90 >=60 mL/min/1. 73 [...] 7:03 AM CDT 09/14/2024 7:07 AM CDT Nilupdiane Anderson MD LAB BLOOD ORDERABLES Final Result [facility] [address] [facility] Department [place] [address] * Differential, auto (09/14/2024 7:03 AM CDT) Neutrophil abs 2.37 1.50 - 6.50 K/cumm Imm gran abs 0.01 0.00 - 0.10 K/cumm [facility] Lymphocyte abs 1.29 0.80 - 3.30 K/cumm [facility] Monocyte abs 0.44 0.20 - 0.80 K/cumm [facility] Eosinophil abs 0.23 0.00 - 0.50 K/cumm [facility] Basophil abs 0.03 0.00 - 0.10 K/cumm [facility] Neutrophil pct 54.2 % [facility] Comment: Interpretive Data Percent cell count reference ranges are not reported, since discordance with absolute values may lead to misinterpretation of CBC data. Current Interpretive Data was last revised on 2017. Imm gran pct 0.2 % [facility] Comment: Interpretive Data Percent cell count reference ranges are not reported, since discordance with absolute values may lead to misinterpretation of CBC data. Current Interpretive Data was last revised on 2017. Lymphocyte pct 29.5 % [facility] Comment: Interpretive Data Percent cell count reference ranges are not reported, since discordance with absolute values may lead to misinterpretation of CBC data. Current Interpretive Data was last revised on 2017. Monocyte pct 10.1 % [facility] Comment: Interpretive Data Percent cell count reference ranges are not reported, since discordance with absolute values may lead to misinterpretation of CBC data. Current Interpretive Data was last revised on 2017. Eosinophil pct 5.3 % [facility] Comment: Interpretive Data Percent cell count reference ranges are not reported, since discordance with absolute values may lead to misinterpretation of CBC data. Current Interpretive Data was last revised on 2017. Basophil pct 0.7 % [facility] Comment: Interpretive Data Percent cell count reference ranges are not reported, since discordance with absolute values may lead to misinterpretation of CBC data. Current Interpretive Data was last revised on 2017. Blood 09/14/2024 7:03 AM CDT 09/14/2024 7:07 AM CDT Melyssa Anderson MD LAB BLOOD ORDERABLES Final Result Performing Organization Address City/[facility]/ZIP Co de Phone Number [facility] [address] [address] * (ABNORMAL) CBC with auto differential (09/14/2024 7:03 AM CDT) Pathologist [facility] WBC 4.37 3.80 - 9.90 K/cumm Hgb 10.8(L) 13.0 - 17.5 g/dL [facility] Hct 33.6(L) 38.9 - 50.3 % [facility] Plt 208 150 - 400 K/cumm [facility] MPV 8.9(L) 9.1 - 12.3 fL [facility] RBC 3.66(L) 4.30 - 5.80 M/cumm [facility] MCV 91.8 81.3 - 96.4 fL [facility] MCH 29.5 27.1 - 33.3 pg [facility] MCHC 32.1(L) 32.3 - 35.7 g/dL [facility] RDW CV 17.2(H) 11.1 - 14.9 % [facility] RDW SD 58.0(H) 35.7 - 48.1 fL [facility] NRBC abs 0.00 0.00 - 0.01 K/cumm [facility] Blood 09/14/2024 7:03 AM CDT 09/14/2024 7:07 AM CDT Melyssa Anderson MD LAB BLOOD ORDERABLES Final Result [facility] [address] [place] [address] * (ABNORMAL) Comprehensive metabolic panel (09/14/2024 7:03 AM CDT) Sodium 138 135 - 145 mmol/L Potassium, pl 3.3 3.3 - 4.9 mmol/L [facility] Chloride 107 97 - 110 mmol/L [facility] CO2 21(L) 22 - 32 mmol/L [facility] Anion gap 10 2 - 15 mmol/L [facility] BUN 7 6 - 25 mg/dL [facility] Creatinine 0.64(L) 0.80 - 1.30 mg/dL [facility] Glucose 99 70 - 199 mg/dL [facility] Comment: Interpretive Data Fasting glucose >/= [...] 2022. Calcium 9.1 8.5 - 10.3 mg/dL [facility] Bilirubin, total 0.4 0.1 - 1.2 mg/dL [facility] Protein, pl 6.3(L) 6.5 - 8.5 g/dL [facility] Albumin 3.7 3.5 - 5.0 g/dL [facility] Alk phos 71 40 - 130 Units/L [facility] ALT 15 7 - 55 Units/L [facility] AST 18 10 - 50 Units/L [facility] Blood 09/14/2024 7:03 AM CDT 09/14/2024 7:07 AM CDT us Melyssa Anderson MD LAB BLOOD ORDERABLES Final Result [facility] [address] [facility] Department of Laboratories [place], [place] [id number] * CT Abdomen Pelvis W Contrast (09/13/2024 [...] Ale Morocho M.D. TW T: Report ID: [id number] Reading Location: [id number] Procedure Note Ale Morocho MD - 09/13/2024 [...] Ale Morocho M.D. TW T: Report ID: [id number] Reading Location: [id number] us Yuridia ROCA IMG CT PROCEDURES Maisha l Result * (ABNORMAL) Urinalysis reflex to microscopic and culture Urine (09/13/2024 1:26 PM CDT) Color, ur Yellow Yellow Clarity, ur Clear Clear [facility] Specific gravity, ur 1.025 1.003 - 1.030 [facility] pH, urine 6.5 [facility] Comment: Interpretive Data U rine pH is affected by diet, medications, systemic acid-base disturbances, and renal tubular function. pH may affect urinary stone formation. For example, urine pH below 6.0 may help reduce the tendency for calcium phosphate stones and pH greater than 6.0 may reduce the tendency for uric acid stone formation. Source: [facility] Current Interpretive Data was last revised on 2017 Protein, ur ql Negative Negative [facility] Glucose, ur ql Negative Negative [facility] Ketones, ur Trace Negative [facility] Bilirubin, ur Negative Negative [facility] Blood, ur Negative Negative [facility] Urobilinogen, ur 2.0(A) <2.0 mg/dL [facility] Nitrite, ur Negative Negative [facility] Leukocyte esterase, ur Negative Negative [facility] UA reflex comment Reflex conditions for microscopic UA and culture not met. [facility] Urine 09/13/2024 1:26 PM CDT 09/13/2024 1:30 PM CDT Melyssa jimenez MD LAB MICROBIOLOGY - GENERAL ORDERABLES Final Result [facility] [address] [facility] Department [place] [address] * (ABNORMAL) Drugs of Abuse Screen, Urine without Confirmation (09/13/2024 1:26 PM CDT) Amphetamine, ur Not Detected CutOff 500ng/mL Comment: Interpretive Data - Amphetamines: Samples containing greater than 500 ng/mL d-methamphetamine or other cross-reacting amphetamine compounds are reported as positive. Amphetamine immunoassays are subject to significant false positive rates due to cross-reactivity of non-amphetamine drugs. Confirmatory testing required for definitive results. Current Interpretive Data was last reviewed 2022. Barbiturates, ur Not Detected CutOff 200ng/mL [facility] Comment: Interpretive Data - Barbiturates: Samples containing greater than 200 ng/mL secobarbital or other cross-reacting barbiturate compounds are reported as positive. False positive and false negative results are possible. Confirmatory testing required for definitive results. Current Interpretive Data was last reviewed 2022. Benzodiazepines, ur Screen Positive, presumptive (A) CutOff 100ng/mL [facility] Comment: Interpretive Data - Benzodiazepines: Samples containing greater than 100 ng/mL nordiazepam or other cross-reacting compounds are reported as positive. False positive and false negative results are possible. Confirmatory testing required for definitive results. Current Interpretive Data was last reviewed 2022. Cannabinoids, ur Screen Positive, presumptive (A) CutOff 50 ng/mL [facility] Comment: Interpretive Data - Cannabinoids: Samples containing greater than 50 ng/mL delta-9 THC -COOH or other cross- reacting compounds are reported as positive. False positive and false negative results are possible. Confirmatory testing required for definitive results. Current Interpretive Data was last reviewed 2022. Cocaine, ur Not Detected CutOff 150ng/mL [facility] Comment: Interpretive Data - Cocaine: Samples containing greater than 150 ng/mL benzoylecgonine or other cross- reacting compounds are reported as positive. False positive and false negative results are possible. Confirmatory testing required for definitive results. Current Interpretive Data was last reviewed 2022. Fentanyl, Ur Not Detected CutOff 5 ng/mL [facility] Comment: Interpretive Data - Fentanyl: Samples containing greater than 5 ng/mL norfentanyl, fentanyl, or other cross-reacting fentanyl compounds are reported as positive. False positive and false negative results are possible. Confirmatory testing required for definitive results. Current Interpretive Data was last reviewed 2023. Methadone, ur Not Detected CutOff 300ng/mL [facility] Comment: Interpretive Data - Methadone: Samples containing greater than 300 ng/mL d,l-methadone or other cross-reacting compounds are reported as positive. False positive and false negative results are possible. Confirmatory testing required for definitive results. Current Interpretive Data was last reviewed 2022. Opiates, ur Not Detected CutOff 300ng/mL [facility] Comment: Interpretive Data - Opiates: Samples containing greater than 300 ng/mL morphine or other cross-reacting compounds are reported as positive. False positive and false negative results are possible. Confirmatory testing required for definitive results. Current Interpretive Data was last reviewed 2022. Oxycodone, ur Not Detected CutOff 100ng/mL [facility] Comment: Interpretive Data - Oxycodone: Samples containing greater than 100 ng/mL oxycodone or other cross-reacting compounds are reported as positive. False positive and false negative results are possible. Confirmatory testing required for definitive results. Current Interpretive Data was last reviewed 2022. Phencyclidine, ur Not Detected CutOff 25 ng/mL [facility] Comment: Interpretive Data - Phencyclidine: Samples containing greater than 25 ng/mL phencyclidine or other cross-reacting compounds are reported as positive. False positive and false negative results are possible. Confirmatory testing required for definitive results. Current Interpretive Data was last reviewed 2022. Urine Creatinine 286 mg/dL [facility] Comment: Interpretive Data Urine Creatinine: < 10 mg/dL is extremely dilute = or > 10 but < 20 mg/dL is dilute = or > 20 mg/dL is normal Current Interpretive Data was last revised on 2017. Urine 09/13/2024 1:26 PM CDT 09/13/2024 1:30 PM CDT Narrative [facility] - 09/13/2024 1:56 PM CDT Drug of Abuse screening is performed by immunoassay for medical purposes only. This is not to be used for Pain Management purposes. Melyssa Anderson MD LAB URINE ORDERABLES Final Result [facility] [address] [facility] Department [place] [address] * COVID-19 Coronavirus RNA Nasopharyngeal (09/13/2024 1:24 PM CDT) COVID-19 RNA Negative Negative Nasopharyngeal 09/13/2024 1: 24 PM CDT 09/13/2024 1:29 PM CDT Sherrell HENDERSON - 09/13/2024 2:05 PM CDT Is the patient experiencing any symptoms consistent with COVID (eg. Fever, cough, shortness of breath)?->No What is the reason for testing?->Screening for semi-private room placement Interpretive data Testing performed by [facility]. This test is performed using the [employer] Xpert Xpress CoV-2 plus assay. This is a real-time RT-PCR test intended for the qualitative detection of nucleic acid from the SARS-CoV-2. This assay has been cleared by the [place] Food and Drug administration. The performance characteristics have been verified by the [facility]. Results must be considered in the clinical context, and a negative result does not rule out infection. Interpretive data last revised 2023. Interpretive data Testing performed by [facility]. This test is performed using the [employer] Xpert Xpress CoV-2 plus assay. This is a real-time RT-PCR test intended for the qualitative detection of nucleic acid from the SARS-CoV-2. This assay has been cleared by the [place] Food and Drug administration. The performance characteristics have been verified by the [facility]. Results must be considered in the clinical context, and a negative result does not rule out infection. Interpretive data last revised 2023. Melyssa jimenez MD LAB MICROBIOLOGY - GENERAL ORDERABLES Final Result [facility] [address] [facility] Department [place] [address] * eGFR (09/13/2024 1:24 PM CDT) Pathologist [facility] eGFR >90 [...] Anderson MD LAB BLOOD ORDERABLES Final Result [facility] [address] [facility] Department [place] [address] * Differential, auto (09/13/2024 1:24 PM CDT) Pathologist [facility] Neutrophil abs 4.79 1.50 - 6.50 K/cumm Imm gran abs 0.01 0.00 - 0.10 K/cumm [facility] Lymphocyte abs 1.49 0.80 - 3.30 K/cumm [facility] Monocyte abs 0.69 0.20 - 0.80 K/cumm [facility] Eosinophil abs 0.12 0.00 - 0.50 K/cumm [facility] Basophil abs 0.06 0.00 - 0.10 K/cumm [facility] Neutrophil pct 67.0 % [facility] Comment: Interpretive Data Percent cell count reference ranges are not reported, since discordance with absolute values may lead to misinterpretation of CBC data. Current Interpretive Data was last revised on 2017. Imm gran pct 0.1 % [facility] Comment: Interpretive Data Percent cell count reference ranges are not reported, since discordance with absolute values may lead to misinterpretation of CBC data. Current Interpretive Data was last revised on 2017. Lymphocyte pct 20.8 % [facility] Comment: Interpretive Data Percent cell count reference ranges are not reported, since discordance with absolute values may lead to misinterpretation of CBC data. Current Interpretive Data was last revised on 2017. Monocyte pct 9.6 % [facility] Comment: Interpretive Data Percent cell count reference ranges are not reported, since discordance with absolute values may lead to misinterpretation of CBC data. Current Interpretive Data was last revised on 2017. Eosinophil pct 1.7 % [facility] Comment: Interpretive Data Percent cell count reference ranges are not reported, since discordance with absolute values may lead to misinterpretation of CBC data. Current Interpretive Data was last revised on 2017. Basophil pct 0.8 % [facility] Comment: Interpretive Data Percent cell count reference ranges are not reported, since discordance with absolute values may lead to misinterpretation of CBC data. Current Interpretive Data was last revised on 2017. Blood 09/13/2024 1:24 PM CDT 09/13/2024 1:29 PM CDT Melyssa Anderson MD LAB BLOOD ORDERABLES Final Result Performing Organization Address [facility] Co de Phone Number [address] [employer] [place] [address] * Thyroid Function Willis (09/13/2024 1:24 PM CDT) TSH 1.33 0.30 - 4.20 mcIUnit/mL Blood 09/13/2024 1:24 PM CDT 09/13/2024 1:29 PM CDT Melyssa Anderson MD LAB BLOOD ORDERABLES Final Result Performing Organization Address City/[facility] Co de Phone Number [address] [employer] [place] [address] * (ABNORMAL) CBC with auto differential (09/13/2024 1:24 PM CDT) [facility] WBC 7.16 3.80 - 9.90 K/cumm Hgb 10.9(L) 13.0 - 17.5 g/dL [facility] Hct 33.1(L) 38.9 - 50.3 % [facility] Plt 270 150 - 400 K/cumm [facility] MPV 9.4 9.1 - 12.3 fL [facility] RBC 3.65(L) 4.30 - 5.80 M/cumm [facility] MCV 90.7 81.3 - 96.4 fL [facility] MCH 29.9 27.1 - 33.3 pg [facility] MCHC 32.9 32.3 - 35.7 g/dL [facility] RDW CV 17.2(H) 11.1 - 14.9 % [facility] RDW SD 57.1(H) 35.7 - 48.1 fL [facility] NRBC abs 0.00 0.00 - 0.01 K/cumm [facility] Blood Venous blood specimen / Unknown 09/13/2024 1:24 PM CDT 09/13/2024 1:29 PM CDT Melyssa Anderson MD LAB BLOOD ORDERABLES Final Result Performing Organization Address City/[facility]/ZIP Co de Phone Number [address] [place] [place] [place] [address] * Lipase (09/13/2024 1:24 PM CDT) [facility] Lipase 16 10 - 99 Units/L Comment:Hemolyzed; result mi ght be falsely decreased Blood 09/13/2024 1:24 PM CDT 09/13/2024 1:29 PM CDT Yuridia ROCA LAB BLOOD ORDERABLES F inal Result [address] [place] [place] [address] * Ethanol (09/13/2024 1:24 PM CDT) Ethanol <10 <=10 mg/dL Comment: Interpretive Data Legal limit of intoxication > or = 80 mg/dL Levels > or = 400 mg/dL are potentially TOXIC. Current interpretive data was last revised on 2018. Blood 09/13/2024 1:24 PM CDT 09/13/2024 1:29 PM CDT Melyssa Anderson MD LAB BLOOD ORDERABLES Final Result [facility] [address] [facility] Department [place] [address] * (ABNORMAL) Comprehensive metabolic panel (09/13/2024 1:24 PM CDT) Sodium 134(L) 135 - 145 mmol/L Potassium, pl 4.4 3.3 - 4.9 mmol/L [facility] Comment:Hemolyzed; Potassium value may be falsely elevated by as much as 1.0 mmol/L. Suggest redraw and reanalysis. Chloride 101 97 - 110 mmol/L [facility] CO2 19(L) 22 - 32 mmol/L [facility] Anion gap 14 2 - 15 mmol/L [facility] BUN 9 6 - 25 mg/dL [facility] Creatinine 0.68(L) 0.80 - 1.30 mg/dL [facility] Glucose 108 70 - 199 mg/dL [facility] Comment: Interpretive Data Fasting glucose >/= [...] 2022. Calcium 9.8 8.5 - 10.3 mg/dL [facility] Bilirubin, total 0.6 0.1 - 1.2 mg/dL [facility] Protein, pl 7.6 6.5 - 8.5 g/dL [facility] Albumin 4.3 3.5 - 5.0 g/dL [facility] Alk phos 83 40 - 130 Units/L [facility] ALT See Comment [facility] Comment:Credited; Hemolyzed Specimen AST See Comment [facility] Comment:Credited; Hemolyzed Specimen Blood 09/13/2024 1:24 PM CDT 09/13/2024 1:29 PM CDT Melyssa Anderson MD LAB BLOOD ORDERABLES Final Result [place] [id number] [facility] Department [place] [address] * (ABNORMAL) POCT glucose (08/21/2024 7:30 AM CDT) Glucose, POC 206(H) 70 - 199 mg/dL Blood 08/21/2024 7:30 AM CDT 08/21/2024 7:30 AM CDT Arley Cheung MD LAB POCT ORDERABLES - DEVIC E Final Result Performing Organization Address City/[facility] Co de Phone Number [facility] Department [place] [address] * POCT glucose (08/21/2024 5:37 AM CDT) Glucose, POC 113 70 - 199 mg/dL Blood 08/21/2024 5:37 AM CDT 08/21/2024 5:37 AM CDT Arley Cheung MD LAB POCT ORDERABLES - DEVIC E Final Result Performing Organization Address City/[facility] Co de Phone Number [facility] Department [place] [address] * Infection Prevention Lanny auris PCR, surveillance Axilla/Groin (08/21/2024 5:26 AM CDT) Lanny auris DNA Not Detected Not Detected [facility] Comment: Interpretive Data Testing performed by [facility] using the [employer] johnny [id number] Lanny auris assay. This assay detects DNA from Lanny auris using Real-Time PCR. This assay is laboratory developed and is not cleared by the [facility] Food and Drug Administration. The performance characteristics have been verified by the [facility]. Axilla/Groin 08/21/2024 5:26 AM CDT 08/21/2024 6:32 AM CDT us Michael Claudio MD LAB MICROBIOLOGY - GENERAL ORDER DELIO Final Result Performing Organization Address City/State/[facility] Co de Phone Number SANTIAGO [facility] Department [place] [address] [facility] * CP-CRE culture, surveillance Rectal swab (08/21/2024 5:26 AM CDT) Report Final Report: Negative Rectal swab 08/21/2024 5:26 AM CDT 08/21/2024 6:39 AM CDT Narrative ELENASTAN [facility] - 08/22/2024 11:59 AM CDT Interpretive Data The screening agar used for the detection of carbapenemase-producing Enterobacterales (CP-CRE) has not been approved by the Food and Drug Administration. The performance characteristics of this medium have been evaluated and verified by the [facility]. This media demonstrates highest sensitivity for KPC and NDM-1 producing isolates. This screening assay is exclusively intended for infection control and surveillance, not for patient diagnosis or treatment purposes. Current interpretive data was last revised on 2023. us Michael Claudio MD LAB MICROBIOLOGY - GENERAL ORDER DELIO Final Result Performing Organization Address City/State/[facility] de Phone Number [facility] Department [place] [address] * eGFR (08/21/2024 4:48 AM CDT) Pathologist [...] AM CDT 08/21/2024 5:47 AM CDT Arley Chenug MD LAB BLOOD ORDERABLES Final Result Performing Organization Address [facility] Co de Phone Number S[facility]O [facility] Department [place] [address] * Differential, auto (08/21/2024 4:48 AM CDT) Pathologist [facility] Neutrophil abs 6.0 1.5 - 6.5 K/cumm Imm gran abs 0.0 0.0 - 0.1 K/cumm [facility] Lymphocyte abs 1.6 0.8 - 3.3 K/cumm [facility] Monocyte abs 0.7 0.2 - 0.8 K/cumm [facility] Eosinophil abs 0.3 0.0 - 0.5 K/cumm [facility] Basophil abs 0.1 0.0 - 0.1 K/cumm [facility] Neutrophil pct 68.4 % [facility] Comment: Interpretive Data Percent cell count reference ranges are not reported, since discordance with absolute values may lead to misinterpretation of CBC data. Current Interpretive Data was last revised on 2017. Imm gran pct 0.3 % [facility] Comment: Interpretive Data Percent cell count reference ranges are not reported, since discordance with absolute values may lead to misinterpretation of CBC data. Current Interpretive Data was last revised on 2017. Lymphocyte pct 18.6 % [facility] Comment: Interpretive Data Percent cell count reference ranges are not reported, since discordance with absolute values may lead to misinterpretation of CBC data. Current Interpretive Data was last revised on 2017. Monocyte pct 8.2 % [facility] Comment: Interpretive Data Percent cell count reference ranges are not reported, since discordance with absolute values may lead to misinterpretation of CBC data. Current Interpretive Data was last revised on 2017. Eosinophil pct 3.2 % [facility] Comment: Interpretive Data Percent cell count reference ranges are not reported, since discordance with absolute values may lead to misinterpretation of CBC data. Current Interpretive Data was last revised on 2017. Basophil pct 1.3 % [facility] Comment: Interpretive Data Percent cell count reference ranges are not reported, since discordance with absolute values may lead to misinterpretation of CBC data. Current Interpretive Data was last revised on 2017. Blood 08/21/2024 4:48 AM CDT 08/21/2024 5:47 AM CDT us Arley Cheung MD LAB BLOOD ORDERABLES Final Result [facility]O [facility] Department [place] [address] * (ABNORMAL) CBC with auto differential (08/21/2024 4:48 AM CDT) WBC 8.8 3.8 - 9.9 K/cumm Hgb 10.4(L) 13.0 - 17.5 g/dL [facility] Hct 31.8(L) 38.9 - 50.3 % [facility] Plt 609(H) 150 - 400 K/cumm [facility] MPV 9.3 9.1 - 12.3 fL [facility] RBC 3.53(L) 4.30 - 5.80 M/cumm [facility] MCV 90.1 81.3 - 96.4 fL [facility] MCH 29.5 27.1 - 33.3 pg [facility] MCHC 32.7 32.3 - 35.7 g/dL [facility] RDW CV 17.2(H) 11.1 - 14.9 % [facility] RDW SD 56.5(H) 35.7 - 48.1 fL [facility] NRBC abs 0.00 0.00 - 0.01 K/cumm [facility] Blood 08/21/2024 4:48 AM CDT 08/21/2024 5:47 AM CDT Arley Cheung MD LAB BLOOD ORDERABLES Final Result Performing Organization Address City/[facility] Co de Phone Number [facility] Department of [employer] [place] [address] * Phosphorus (08/21/2024 4:48 AM CDT) [facility] Phosphorus, pl 3.9 2.3 - 4.5 mg/dL Blood 08/21/2024 4:48 AM CDT 08/21/2024 5:47 AM CDT Arley Cheung MD LAB BLOOD ORDERABLES Final Result [facility] Department [place] [address] * Magnesium (08/21/2024 4:48 AM CDT) [facility] Magnesium 1.9 1.4 - 2.5 mg/dL Blood 08/21/2024 4:48 AM CDT 08/21/2024 5:47 AM CDT Arley Cheung MD LAB BLOOD ORDERABLES Final Result Performing Organization Address [facility] de Phone Number [facility] [place] [address] * (ABNORMAL) Hepatic function panel (08/21/2024 4:48 AM CDT) [facility] Bilirubin, total <0.2 0.1 - 1.2 mg/dL Bilirubin, direct <0.2 0.1 - 0.3 mg/dL [facility] Protein, pl 6.2(L) 6.5 - 8.5 g/dL [facility] Albumin 3.1(L) 3.5 - 5.0 g/dL [facility] Alk phos 87 40 - 130 Units/L [facility] ALT 9 7 - 55 Units/L [facility] AST 18 10 - 50 Units/L [facility] Blood 08/21/2024 4:48 AM CDT 08/21/2024 5:47 AM CDT Arley Cheung MD LAB BLOOD ORDERABLES Final Result Performing Organization Address [facility] de Phone Number [facility] [place] [address] * (ABNORMAL) Basic metabolic panel (08/21/2024 4:48 AM CDT) [facility] Sodium 139 135 - 145 mmol/L Potassium, pl 4.7 3.3 - 4.9 mmol/L [facility] Chloride 107 97 - 110 mmol/L [facility] CO2 26 22 - 32 mmol/L [facility] Anion gap 6 2 - 15 mmol/L [facility] BUN 5(L) 6 - 25 mg/dL [facility] Creatinine 0.73(L) 0.80 - 1.30 mg/dL [facility] Glucose 115 70 - 199 mg/dL [facility] Comment: Interpretive Data Fasting glucose [...] 2022. Calcium 9.3 8.5 - 10.3 mg/dL [facility] Blood 08/21/2024 4:48 AM CDT 08/21/2024 5:47 AM CDT Arley Cheung MD LAB BLOOD ORDERABLES Final Result Performing Organization Address City/[facility]/ZIP Co de Phone Number [facility] Department of [employer] [place] [address] * POCT glucose (08/20/2024 8:23 PM CDT) Glucose, POC 134 70 - 199 mg/dL Blood 08/20/2024 8:23 PM CDT 08/20/2024 8:23 PM CDT Arley Cheung MD LAB POCT ORDERABLES - DEVIC E Final Result [facility] Department of [employer] [place] [address] * POCT glucose (08/20/2024 5:21 PM CDT) Glucose, POC 165 70 - 199 mg/dL Blood 08/20/2024 5:21 PM CDT 08/20/2024 5:21 PM CDT us Arley Cheung MD LAB POCT ORDERABLES - DEVIC E Final Result Performing Organization Address City/[facility] Co de Phone Number [facility] [employer] [place] [address] * POCT glucose (08/20/2024 12:20 PM CDT) Glucose, POC 74 70 - 199 mg/dL Blood 08/20/2024 12:2 0 PM CDT 08/20/2024 12:20 PM CDT us Arley Cheung MD LAB POCT ORDERABLES - DEVIC E Final Result Performing Organization Address [facility] de Phone Number [facility] [place] [address] * POCT glucose (08/20/2024 7:43 AM CDT) Glucose, POC 97 70 - 199 mg/dL Blood 08/20/2024 7:43 AM CDT 08/20/2024 7:43 AM CDT us Arley Cheung MD LAB POCT ORDERABLES - DEVIC E Final Result Performing Organization Address [facility] Co de Phone Number [facility] [employer] [place] [address] * eGFR (08/20/2024 5:13 AM CDT) eGFR [...] Cheung MD LAB BLOOD ORDERABLES Final Result [facility] Department [place] [address] * (ABNORMAL) Differential, auto (08/20/2024 5:13 AM CDT) Neutrophil abs 2.5 1.5 - 6.5 K/cumm Imm gran abs 0.0 0.0 - 0.1 K/cumm [facility] Lymphocyte abs 2.3 0.8 - 3.3 K/cumm [facility] Monocyte abs 0.6 0.2 - 0.8 K/cumm [facility] Eosinophil abs 0.3 0.0 - 0.5 K/cumm [facility] Basophil abs 0.2(H) 0.0 - 0.1 K/cumm [facility] Neutrophil pct 42.6 % [facility] Comment: Interpretive Data Percent cell count reference ranges are not reported, since discordance with absolute values may lead to misinterpretation of CBC data. Current Interpretive Data was last revised on 2017. Imm gran pct 0.3 % [facility] Comment: Interpretive Data Percent cell count reference ranges are not reported, since discordance with absolute values may lead to misinterpretation of CBC data. Current Interpretive Data was last revised on 2017. Lymphocyte pct 39.7 % [facility] Comment: Interpretive Data Percent cell count reference ranges are not reported, since discordance with absolute values may lead to misinterpretation of CBC data. Current Interpretive Data was last revised on 2017. Monocyte pct 9.7 % [facility] Comment: Interpretive Data Percent cell count reference ranges are not reported, since discordance with absolute values may lead to misinterpretation of CBC data. Current Interpretive Data was last revised on 2017. Eosinophil pct 5.1 % [facility] Comment: Interpretive Data Percent cell count reference ranges are not reported, since discordance with absolute values may lead to misinterpretation of CBC data. Current Interpretive Data was last revised on 2017. Basophil pct 2.6 % [facility] Comment: Interpretive Data Percent cell count reference ranges are not reported, since discordance with absolute values may lead to misinterpretation of CBC data. Current Interpretive Data was last revised on 2017. Blood 08/20/2024 5:13 AM CDT 08/20/2024 5:40 AM CDT Arley Cheung MD LAB BLOOD ORDERABLES Final Result [facility] Department [place] [address] * (ABNORMAL) CBC with auto differential (08/20/2024 5:13 AM CDT) WBC 5.9 3.8 - 9.9 K/cumm Hgb 10.8(L) 13.0 - 17.5 g/dL [facility] Hct 32.6(L) 38.9 - 50.3 % [facility] Plt 628(H) 150 - 400 K/cumm [facility] MPV 8.8(L) 9.1 - 12.3 fL [facility] RBC 3.62(L) 4.30 - 5.80 M/cumm [facility] MCV 90.1 81.3 - 96.4 fL [facility] MCH 29.8 27.1 - 33.3 pg [facility] MCHC 33.1 32.3 - 35.7 g/dL [facility] RDW CV 17.2(H) 11.1 - 14.9 % [facility] RDW SD 57.0(H) 35.7 - 48.1 fL [facility] NRBC abs 0.00 0.00 - 0.01 K/cumm [facility] Blood 08/20/2024 5:13 AM CDT 08/20/2024 5:40 AM CDT Arley Cheung MD LAB BLOOD ORDERABLES Final Result Performing Organization Address City/[facility] Co de Phone Number [facility] [place] [address] * Phosphorus (08/20/2024 5:13 AM CDT) Phosphorus, pl 3.3 2.3 - 4.5 mg/dL Blood 08/20/2024 5:13 AM CDT 08/20/2024 5:41 AM CDT Arley Cheung MD LAB BLOOD ORDERABLES Final Result Performing Organization Address City/[facility] Co de Phone Number [facility] Department [place] [address] * Magnesium (08/20/2024 5:13 AM CDT) Pathologist [facility] Magnesium 2.0 1.4 - 2.5 mg/dL Blood 08/20/2024 5:13 AM CDT 08/20/2024 5:41 AM CDT us Arley Cheung MD LAB BLOOD ORDERABLES Final Result Performing Organization Address City/[facility] Co de Phone Number [facility] [place] [address] * (ABNORMAL) Hepatic function panel (08/20/2024 5:13 AM CDT) Bilirubin, total <0.2 0.1 - 1.2 mg/dL Bilirubin, direct <0.2 0.1 - 0.3 mg/dL [facility] Protein, pl 6.7 6.5 - 8.5 g/dL [facility] Albumin 3.4(L) 3.5 - 5.0 g/dL [facility] Alk phos 87 40 - 130 Units/L [facility] ALT 13 7 - 55 Units/L [facility] AST 17 10 - 50 Units/L [facility] Blood 08/20/2024 5:13 AM CDT 08/20/2024 5:41 AM CDT Arley Cheung MD LAB BLOOD ORDERABLES Final Result [facility] Department [place] [address] * (ABNORMAL) Basic metabolic panel (08/20/2024 5:13 AM CDT) [facility] Sodium 141 135 - 145 mmol/L Potassium, pl 4.4 3.3 - 4.9 mmol/L [facility] Chloride 105 97 - 110 mmol/L [facility] CO2 26 22 - 32 mmol/L [facility] Anion gap 10 2 - 15 mmol/L [facility] BUN 4(L) 6 - 25 mg/dL [facility] Creatinine 0.80 0.80 - 1.30 mg/dL [facility] Glucose 98 70 - 199 mg/dL [facility] Comment: Interpretive Data Fasting glucose [...] 2022. Calcium 9.5 8.5 - 10.3 mg/dL [facility] Blood 08/20/2024 5:13 AM CDT 08/20/2024 5:41 AM CDT us Arley Cheung MD LAB BLOOD ORDERABLES Final Result Performing Organization Address [facility] de Phone Number [facility] [employer] [place] [address] * POCT glucose (08/20/2024 3:12 AM CDT) Glucose, POC 110 70 - 199 mg/dL Blood 08/20/2024 3:12 AM CDT 08/20/2024 3:12 AM CDT us Arley Cheung MD LAB POCT ORDERABLES - DEVIC E Final Result Performing Organization Address [facility] de Phone Number [facility] [employer] [place] [address] * POCT glucose (08/20/2024 1:38 AM CDT) Glucose, POC 166 70 - 199 mg/dL Blood 08/20/2024 1:38 AM CDT 08/20/2024 1:38 AM CDT Result Rylan Cheung MD LAB POCT ORDERABLES - DEVIC E Final Result Performing Organization Address [facility] de Phone Number [facility] [employer] [place] [address] * (ABNORMAL) POCT glucose (08/19/2024 11:45 PM CDT) Glucose, POC 210(H) 70 - 199 mg/dL Blood 08/19/2024 11:4 5 PM CDT 08/19/2024 11:45 PM CDT us Arley Cheung MD LAB POCT ORDERABLES - DEVIC E Final Result Performing Organization Address [facility] de Phone Number [facility] [place] [address] * POCT glucose (08/19/2024 10:24 PM CDT) Glucose, POC 112 70 - 199 mg/dL Blood 08/19/2024 10:2 4 PM CDT 08/19/2024 10:24 PM CDT us Arley Cheung MD LAB POCT ORDERABLES - DEVIC E Final Result Performing Organization Address [facility] de Phone Number [facility] [place] [address] * POCT glucose (08/19/2024 9:55 PM CDT) Glucose, POC 100 70 - 199 mg/dL Blood 08/19/2024 9:55 PM CDT 08/19/2024 9:55 PM CDT us Arley Cheung MD LAB POCT ORDERABLES - DEVIC E Final Result Performing Organization Address [facility] de Phone Number [facility] [place] [address] * (ABNORMAL) POCT glucose (08/19/2024 8:07 PM CDT) Glucose, POC 376(H) 70 - 199 mg/dL Blood 08/19/2024 8:07 PM CDT 08/19/2024 8:07 PM CDT us Arley Cheung MD LAB POCT ORDERABLES - DEVIC E Final Result Performing Organization Address [facility]/ZIP Co de Phone Number [facility] Department [place] [address] * (ABNORMAL) POCT glucose (08/19/2024 7:24 PM CDT) Glucose, POC 325(H) 70 - 199 mg/dL Blood 08/19/2024 7:24 PM CDT 08/19/2024 7:24 PM CDT us Arley Cheung MD LAB POCT ORDERABLES - DEVIC E Final Result Performing Organization Address [facility] Co de Phone Number [facility] [facility] [place] [address] * eGFR (08/18/2024 10:25 PM CDT) [facility] eGFR >90 >=60 mL/min/1. 73 m2 [...] BLOOD ORDERABLES Final Result [place] CAN [facility] Department [place] [address] * (ABNORMAL) Differential, auto (08/18/2024 10:25 PM CDT) Neutrophil abs 3.7 1.5 - 6.5 K/cumm Imm gran abs 0.0 0.0 - 0.1 K/cumm [facility] Lymphocyte abs 2.0 0.8 - 3.3 K/cumm [facility] Monocyte abs 0.9(H) 0.2 - 0.8 K/cumm [facility] Eosinophil abs 0.3 0.0 - 0.5 K/cumm [facility] Basophil abs 0.1 0.0 - 0.1 K/cumm [facility] Neutrophil pct 52.6 % [facility] Comment: Interpretive Data Percent cell count reference ranges are not reported, since discordance with absolute values may lead to misinterpretation of CBC data. Current Interpretive Data was last revised on 2017. Imm gran pct 0.3 % [facility] Comment: Interpretive Data Percent cell count reference ranges are not reported, since discordance with absolute values may lead to misinterpretation of CBC data. Current Interpretive Data was last revised on 2017. Lymphocyte pct 29.0 % [facility] Comment: Interpretive Data Percent cell count reference ranges are not reported, since discordance with absolute values may lead to misinterpretation of CBC data. Current Interpretive Data was last revised on 2017. Monocyte pct 12.8 % [facility] Comment: Interpretive Data Percent cell count reference ranges are not reported, since discordance with absolute values may lead to misinterpretation of CBC data. Current Interpretive Data was last revised on 2017. Eosinophil pct 4.0 % [facility] Comment: Interpretive Data Percent cell count reference ranges are not reported, since discordance with absolute values may lead to misinterpretation of CBC data. Current Interpretive Data was last revised on 2017. Basophil pct 1.3 % [facility] Comment: Interpretive Data Percent cell count reference ranges are not reported, since discordance with absolute values may lead to misinterpretation of CBC data. Current Interpretive Data was last revised on 2017. Blood 08/18/2024 10:2 5 PM CDT 08/18/2024 10:49 PM CDT Arley Cheung MD LAB BLOOD ORDERABLES Final Result Performing Organization Address [facility] de Phone Number [facility] [employer] [place] [address] * (ABNORMAL) CBC with auto differential (08/18/2024 10:25 PM CDT) WBC 6.9 3.8 - 9.9 K/cumm Hgb 10.6(L) 13.0 - 17.5 g/dL [facility] Hct 32.5(L) 38.9 - 50.3 % [facility] Plt 700(H) 150 - 400 K/cumm [facility] MPV 8.7(L) 9.1 - 12.3 fL [facility] RBC 3.60(L) 4.30 - 5.80 M/cumm [facility] MCV 90.3 81.3 - 96.4 fL [facility] MCH 29.4 27.1 - 33.3 pg [facility] MCHC 32.6 32.3 - 35.7 g/dL [facility] RDW CV 17.6(H) 11.1 - 14.9 % [facility] RDW SD 57.7(H) 35.7 - 48.1 fL [facility] NRBC abs 0.00 0.00 - 0.01 K/cumm [facility] Blood 08/18/2024 10:2 5 PM CDT 08/18/2024 10:49 PM CDT Arley Cheung MD LAB BLOOD ORDERABLES Final Result Performing Organization Address [facility] Co de Phone Number [facility] [employer] [place] [address] * Phosphorus (08/18/2024 10:25 PM CDT) Pathologist [facility] Phosphorus, pl 3.3 2.3 - 4.5 mg/dL Blood 08/18/2024 10:2 5 PM CDT 08/18/2024 10:47 PM CDT Arley Cheung MD LAB BLOOD ORDERABLES Final Result Performing Organization Address City/[facility] Co de Phone Number [facility] Department [place] [address] * Magnesium (08/18/2024 10:25 PM CDT) [facility] Magnesium 1.9 1.4 - 2.5 mg/dL Blood 08/18/2024 10:2 5 PM CDT 08/18/2024 10:47 PM CDT Arley Cheung MD LAB BLOOD ORDERABLES Final Result Performing Organization Address [facility] de Phone Number [facility] [place] [address] * Hepatic function panel (08/18/2024 10:25 PM CDT) [facility] Bilirubin, total <0.2 0.1 - 1.2 mg/dL Bilirubin, direct <0.2 0.1 - 0.3 mg/dL [facility] Protein, pl 7.1 6.5 - 8.5 g/dL [facility] Albumin 3.5 3.5 - 5.0 g/dL [facility] Alk phos 98 40 - 130 Units/L [facility] ALT 12 7 - 55 Units/L [facility] AST 17 10 - 50 Units/L [facility] Blood 08/18/2024 10:2 5 PM CDT 08/18/2024 10:47 PM CDT Arley Cheung MD LAB BLOOD ORDERABLES Final Result [facility] Department [place] [address] * (ABNORMAL) Basic metabolic panel (08/18/2024 10:25 PM CDT) Pathologist [facility] Sodium 144 135 - 145 mmol/L Potassium, pl 4.3 3.3 - 4.9 mmol/L [facility] Chloride 105 97 - 110 mmol/L [facility] CO2 30 22 - 32 mmol/L [facility] Anion gap 9 2 - 15 mmol/L [facility] BUN 3(L) 6 - 25 mg/dL [facility] Creatinine 0.72(L) 0.80 - 1.30 mg/dL [facility] Glucose 109 70 - 199 mg/dL [facility] Comment: Interpretive Data Fasting glucose [...] 2022. Calcium 9.6 8.5 - 10.3 mg/dL [facility] Blood 08/18/2024 10:2 5 PM CDT 08/18/2024 10:47 PM CDT Arley Cheung MD LAB BLOOD ORDERABLES Final Result [facility] Department [place] [address] * eGFR (08/17/2024 8:00 PM CDT) [facility] eGFR >90 >=60 mL/min/1. 73 m2 [...] Cheung MD LAB BLOOD ORDERABLES Final Result [facility] Department [place] [address] * (ABNORMAL) Differential, auto (08/17/2024 8:00 PM CDT) Neutrophil abs 6.5 1.5 - 6.5 K/cumm Imm gran abs 0.0 0.0 - 0.1 K/cumm [facility] Lymphocyte abs 1.3 0.8 - 3.3 K/cumm [facility] Monocyte abs 0.9(H) 0.2 - 0.8 K/cumm [facility] Eosinophil abs 0.2 0.0 - 0.5 K/cumm [facility] Basophil abs 0.1 0.0 - 0.1 K/cumm [facility] Neutrophil pct 71.5 % [facility] Comment: Interpretive Data Percent cell count reference ranges are not reported, since discordance with absolute values may lead to misinterpretation of CBC data. Current Interpretive Data was last revised on 2017. Imm gran pct 0.3 % [facility] Comment: Interpretive Data Percent cell count reference ranges are not reported, since discordance with absolute values may lead to misinterpretation of CBC data. Current Interpretive Data was last revised on 2017. Lymphocyte pct 14.5 % [facility] Comment: Interpretive Data Percent cell count reference ranges are not reported, since discordance with absolute values may lead to misinterpretation of CBC data. Current Interpretive Data was last revised on 2017. Monocyte pct 10.2 % [facility] Comment: Interpretive Data Percent cell count reference ranges are not reported, since discordance with absolute values may lead to misinterpretation of CBC data. Current Interpretive Data was last revised on 2017. Eosinophil pct 2.6 % [facility] Comment: Interpretive Data Percent cell count reference ranges are not reported, since discordance with absolute values may lead to misinterpretation of CBC data. Current Interpretive Data was last revised on 2017. Basophil pct 0.9 % [facility] Comment: Interpretive Data Percent cell count reference ranges are not reported, since discordance with absolute values may lead to misinterpretation of CBC data. Current Interpretive Data was last revised on 2017. Blood 08/17/2024 8:00 PM CDT 08/17/2024 8:22 PM CDT Arley Cheung MD LAB BLOOD ORDERABLES Final Result [facility] Department [place] [address] * (ABNORMAL) CBC with auto differential (08/17/2024 8:00 PM CDT) WBC 9.1 3.8 - 9.9 K/cumm Hgb 9.8(L) 13.0 - 17.5 g/dL [facility] Hct 29.8(L) 38.9 - 50.3 % [facility] Plt 670(H) 150 - 400 K/cumm [facility] MPV 8.9(L) 9.1 - 12.3 fL [facility] RBC 3.32(L) 4.30 - 5.80 M/cumm [facility] MCV 89.8 81.3 - 96.4 fL [facility] MCH 29.5 27.1 - 33.3 pg [facility] MCHC 32.9 32.3 - 35.7 g/dL [facility] RDW CV 17.4(H) 11.1 - 14.9 % [facility] RDW SD 57.1(H) 35.7 - 48.1 fL [facility] NRBC abs 0.00 0.00 - 0.01 K/cumm [facility] Blood 08/17/2024 8:00 PM CDT 08/17/2024 8:22 PM CDT us Arley Cheung MD LAB BLOOD ORDERABLES Final Result Performing Organization Address [facility] Co de Phone Number [facility] Department [place] [address] * (ABNORMAL) Phosphorus (08/17/2024 8:00 PM CDT) Phosphorus, pl 2.2(L) 2.3 - 4.5 mg/dL Blood 08/17/2024 8:00 PM CDT 08/17/2024 8:22 PM CDT us Arley Cheung MD LAB BLOOD ORDERABLES Final Result Performing Organization Address [facility] Co de Phone Number [facility] Department [place] [address] * Magnesium (08/17/2024 8:00 PM CDT) Magnesium 1.8 1.4 - 2.5 mg/dL Blood 08/17/2024 8:00 PM CDT 08/17/2024 8:22 PM CDT us Arley Cheung MD LAB BLOOD ORDERABLES Final Result Performing Organization Address [facility]/ZIP Co de Phone Number [facility] Department [place] [address] * (ABNORMAL) Hepatic function panel (08/17/2024 8:00 PM CDT) [facility] Bilirubin, total <0.2 0.1 - 1.2 mg/dL Bilirubin, direct <0.2 0.1 - 0.3 mg/dL [facility] Protein, pl 6.7 6.5 - 8.5 g/dL [facility] Albumin 3.3(L) 3.5 - 5.0 g/dL [facility] Alk phos 106 40 - 130 Units/L [facility] ALT 13 7 - 55 Units/L [facility] AST 17 10 - 50 Units/L [facility] Blood 08/17/2024 8:00 PM CDT 08/17/2024 8:22 PM CDT Arley Cheung MD LAB BLOOD ORDERABLES Final Result [facility] Department [place] [address] * (ABNORMAL) Basic metabolic panel (08/17/2024 8:00 PM CDT) [facility] Sodium 142 135 - 145 mmol/L Potassium, pl 3.7 3.3 - 4.9 mmol/L [facility] Chloride 106 97 - 110 mmol/L [facility] CO2 25 22 - 32 mmol/L [facility] Anion gap 11 2 - 15 mmol/L [facility] BUN 6 6 - 25 mg/dL [facility] Creatinine 0.74(L) 0.80 - 1.30 mg/dL [facility] Glucose 143 70 - 199 mg/dL [facility] Comment: Interpretive Data Fasting glucose [...] 2022. Calcium 9.3 8.5 - 10.3 mg/dL [facility] Blood 08/17/2024 8:00 PM CDT 08/17/2024 8:22 PM CDT Arley Cheung MD LAB BLOOD ORDERABLES Final Result [facility] Department [place] [address] * Blood culture Blood (08/17/2024 12:12 PM CDT) Report Final Report: No growth Blood 08/17/2024 12:1 2 PM CDT 08/17/2024 12:29 PM CDT Narrative [facility] - 08/21/2024 4:00 PM CDT [...] performance characteristics have been verified by the [facility]. For questions about this culture, contact the Microbiology Laboratory at [phone]. Interpretive data was last revised on 24. Melecio Michelle MD LAB MICROBIOLOGY - GEN ERAL ORDERABLES Final Result Performing Organization Address City/[facility]/ZIP Co de Phone Number [facility] Department [place] [address] * Blood culture Blood (08/17/2024 12:12 PM CDT) Report Final Report: No growth Blood 08/17/2024 12:1 2 PM CDT 08/17/2024 12:29 PM CDT Narrative [facility] - 08/21/2024 4:00 PM CDT Collection->Peripheral 1. [...] performance characteristics have been verified by the [facility]. For questions about this culture, contact the Microbiology Laboratory at [phone]. Interpretive data was last revised on 24. Melecio Michelle MD LAB MICROBIOLOGY - GEN ERAL ORDERABLES Final Result Performing Organization Address City/[facility]/ZIP Co de Phone Number [facility] Department [place] [address] * C. difficile testing Stool (08/17/2024 10:50 AM CDT) [facility] Result Negative Negative Toxin Result Negative Negative [facility] C. diff result Negative, free toxin Negative, free toxin [facility] C. diff interp Negative for toxigenic Clostridioides (Clostridium) difficile. Analysis was performed using a glutamate dehydrogenase antigen detection assay combined with a C. difficile toxin detection assay. [facility] Stool 08/17/2024 10:5 0 AM CDT 08/17/2024 11:00 AM CDT Narrative [facility] - 08/17/2024 11:31 AM CDT Testing for C. difficile is not recommended within 4 days of a negative result, 10 days of a positive, or 24 hours after laxative administration. If this order is clinically indicated, contact the lab and enter the passcode to complete this order.->[id number] Arley Cheung MD LAB MICROBIOLOGY - GENERAL ORDERABLES Final Result [facility] Department [place] [address] * eGFR (08/16/2024 11:14 PM CDT) Pathologist [facility] eGFR >90 [...] Cheung MD LAB BLOOD ORDERABLES Final Result [facility] One [facility] Department [place] [address] * Differential, auto (08/16/2024 11:14 PM CDT) Neutrophil abs 2.8 1.5 - 6.5 K/cumm Imm gran abs 0.0 0.0 - 0.1 K[facility]cumm [facility] Lymphocyte abs 1.1 0.8 - 3.3 K/cumm [facility] Monocyte abs 0.8 0.2 - 0.8 K/cumm [facility] Eosinophil abs 0.3 0.0 - 0.5 K/cumm [facility] Basophil abs 0.1 0.0 - 0.1 K/cumm [facility] Neutrophil pct 53.8 % [facility] Comment: Interpretive Data Percent cell count reference ranges are not reported, since discordance with absolute values may lead to misinterpretation of CBC data. Current Interpretive Data was last revised on 2017. Imm gran pct 0.4 % [facility] Comment: Interpretive Data Percent cell count reference ranges are not reported, since discordance with absolute values may lead to misinterpretation of CBC data. Current Interpretive Data was last revised on 2017. Lymphocyte pct 22.2 % [facility] Comment: Interpretive Data Percent cell count reference ranges are not reported, since discordance with absolute values may lead to misinterpretation of CBC data. Current Interpretive Data was last revised on 2017. Monocyte pct 15.7 % [facility] Comment: Interpretive Data Percent cell count reference ranges are not reported, since discordance with absolute values may lead to misinterpretation of CBC data. Current Interpretive Data was last revised on 2017. Eosinophil pct 5.9 % [facility] Comment: Interpretive Data Percent cell count reference ranges are not reported, since discordance with absolute values may lead to misinterpretation of CBC data. Current Interpretive Data was last revised on 2017. Basophil pct 2.0 % [facility] Comment: Interpretive Data Percent cell count reference ranges are not reported, since discordance with absolute values may lead to misinterpretation of CBC data. Current Interpretive Data was last revised on 2017. Blood 08/16/2024 11:1 4 PM CDT 08/17/2024 1:03 AM CDT us Arley Cheung MD LAB BLOOD ORDERABLES Final Result [facility] One [facility] Department [place] [address] * (ABNORMAL) CBC with auto differential (08/16/2024 11:14 PM CDT) WBC 5.1 3.8 - 9.9 K/cumm Hgb 10.0(L) 13.0 - 17.5 g/dL [facility] Hct 30.6(L) 38.9 - 50.3 % [facility] Plt 702(H) 150 - 400 K/cumm [facility] MPV 9.0(L) 9.1 - 12.3 fL [facility] RBC 3.36(L) 4.30 - 5.80 M/cumm [facility] MCV 91.1 81.3 - 96.4 fL [facility] MCH 29.8 27.1 - 33.3 pg [facility] MCHC 32.7 32.3 - 35.7 g/dL [facility] RDW CV 17.5(H) 11.1 - 14.9 % [facility] RDW SD 58.3(H) 35.7 - 48.1 fL [facility] NRBC abs 0.00 0.00 - 0.01 K/cumm [facility] Blood 08/16/2024 11:1 4 PM CDT 08/17/2024 1:03 AM CDT Arley Cheung MD LAB BLOOD ORDERABLES Final Result Performing Organization Address City/[facility] Co de Phone Number [facility] [place] [address] * Phosphorus (08/16/2024 11:14 PM CDT) Pathologist [facility] Phosphorus, pl 2.5 2.3 - 4.5 mg/dL Blood 08/16/2024 11:1 4 PM CDT 08/17/2024 1:03 AM CDT Arley Cheung MD LAB BLOOD ORDERABLES Final Result Performing Organization Address [facility] Co de Phone Number [facility] [place] [address] * Magnesium (08/16/2024 11:14 PM CDT) [facility] Magnesium 2.0 1.4 - 2.5 mg/dL Blood 08/16/2024 11:1 4 PM CDT 08/17/2024 1:03 AM CDT Arley Cheung MD LAB BLOOD ORDERABLES Final Result Performing Organization Address [facility] Co de Phone Number [facility] [place] [address] * (ABNORMAL) Hepatic function panel (08/16/2024 11:14 PM CDT) Bilirubin, total <0.2 0.1 - 1.2 mg/dL Comment:Reviewed Bilirubin, direct <0.2 0.1 - 0.3 mg/dL [facility] Protein, pl 6.6 6.5 - 8.5 g/dL [facility] Albumin 3.2(L) 3.5 - 5.0 g/dL [facility] Alk phos 111 40 - 130 Units/L [facility] ALT 12 7 - 55 Units/L [facility] AST 28 10 - 50 Units/L [facility] Blood 08/16/2024 11:1 4 PM CDT 08/17/2024 1:03 AM CDT Arley Cheung MD LAB BLOOD ORDERABLES Final Result [facility] Department [place] [address] * Basic metabolic panel (08/16/2024 11:14 PM CDT) [facility] Sodium 140 135 - 145 mmol/L Potassium, pl 3.8 3.3 - 4.9 mmol/L [facility] Chloride 106 97 - 110 mmol/L [facility] CO2 23 22 - 32 mmol/L [facility] Anion gap 11 2 - 15 mmol/L [facility] BUN 6 6 - 25 mg/dL [facility] Creatinine 0.81 0.80 - 1.30 mg/dL [facility] Glucose 188 70 - 199 mg/dL [facility] Comment: Interpretive Data Fasting glucose [...] 2022. Calcium 8.9 8.5 - 10.3 mg/dL [facility] Blood 08/16/2024 11:1 4 PM CDT 08/17/2024 1:03 AM CDT Arley Cheung MD LAB BLOOD ORDERABLES Final Result Performing Organization Address City/[facility]/ZIP Co de Phone Number [facility] Department [place] [address] * XR Outside Reference (08/16/2024 7:30 PM CDT) Impressions [email or web address] - 08/16/2024 7:30 PM CDT These images are for Reference purposes only and have not been reviewed by [facility]. There will be no report generated by a [facility] Radiologist. Narrative [email or web address] - 08/16/2024 7:30 PM CDT EXAMINATION: Images For Reference Purposes Only us Melecio Michelle MD IMG XR PROCEDURES Maisha l Result [email or web address] * MR Body Outside Consult (08/16/2024 [...] images may or may not represent the pilot station source data set and thus may contain [...] IMAGING STUDY STUDY INITIALLY PERFORMED: 08/09/2024 at [facility]. TYPE OF STUDY: Multiple MRI/MRCP images of [...] IMAGING STUDY STUDY INITIALLY PERFORMED: 08/09/2024 at [facility]. TYPE OF STUDY: Multiple MRI/MRCP images of [...] images may or may not represent the pilot station source data set and thus may contain [...] and have not been reviewed by [facility]. There will be no report generated by a [facility] Radiologist. Narrative [email or web address] - 08/16/2024 6:01 PM CDT EXAMINATION: Images For Reference Purposes Only Melecio Michelle MD IMG XR PROCEDURES Maisha l Result Performing Organization Address [facility] Co de Phone Number [email or web address] * XR Outside Reference (08/16/2024 6:00 PM CDT) Impressions [email or web address] - 08/16/2024 6:00 PM CDT These images are for Reference purposes only and have not been reviewed by [facility]. There will be no report generated by a [facility] Radiologist. Narrative [email or web address] - 08/16/2024 6:00 PM CDT EXAMINATION: Images For Reference Purposes Only Melecio Michelle MD IMG XR PROCEDURES Maisha l Result Performing Organization Address [facility] Co de Phone Number [email or web address] [...] of this study generated by a [facility] Radiologist. Electronically signed by: Evelin Cho [...] of this study generated by a [facility] Radiologist. Electronically signed by: Evelin Cho M.D. Melecio Michelle MD IMG CT PROCEDURES Maisha l Result * Infection Prevention Lanny auris PCR, surveillance Axilla/Groin (08/16/2024 2:02 PM CDT) Lanny auris DNA Not Detected Not Detected [facility] Comment: Interpretive Data Testing performed by [facility] using the [employer] johnny [id number] Lanny auris assay. This assay detects DNA from Lanny auris using Real-Time PCR. This assay is laboratory developed and is not cleared by the [place] Food and Drug Administration. The performance characteristics have been verified by the [facility]. Axilla/Groin 08/16/2024 2:02 PM CDT 08/16/2024 2:36 PM CDT Michael Claudio MD LAB MICROBIOLOGY - GENERAL ORDER DELIO Final Result [facility] One [facility] Department [place] [address] [facility] * CT Chest Abdomen Pelvis W Contrast [...] by: Ever Alcala M.D. Arley Cheung MD [facility] CT PROCEDURES Final Res ult * C. difficile testing Stool (08/16/2024 10:31 AM CDT) Pathologist [facility] Result Negative Negative Toxin Result Negative Negative [facility] C. diff result Negative, free toxin Negative, free toxin [facility] C. diff interp Negative for toxigenic Clostridioides (Clostridium) difficile. Analysis was performed using a glutamate dehydrogenase antigen detection assay combined with a C. difficile toxin detection assay. [facility] Stool 08/16/2024 10:3 1 AM CDT 08/16/2024 12:41 PM CDT Arley Cheung MD LAB MICROBIOLOGY - GENERAL ORDERABLES Final Result Performing Organization Address City/[facility]/ZIP Co de Phone Number [facility] CAN Mack [facility] Department [place] [address] * Calprotectin, fecal (08/16/2024 10:31 AM CDT) [facility] Calprotectin, fecal <50.0 <50.0 (Normal) mcg/g [facility] Comment: Test Performed by: [place] [address] Agent: Rubio Michel Ph.D.; IA# [id number] Stool 08/16/2024 10:3 1 AM CDT 08/16/2024 1:01 PM CDT Arley Cheung MD LAB BODY FLUIDS AND STOOLS ORDERABLES Final Result Performing Organization Address City/[facility] Co de Phone Number S[place]O CAN Mack [facility] Department [place] [address] [facility] * Norovirus PCR Stool (08/16/2024 10:31 AM CDT) [facility] Norovirus GI RNA Not Detected Not Detected [facility] Norovirus GII RNA Not Detected Not [facility]ed [facility] Comment: Interpretive data: Testing performed at the [facility] using the Digital Karma Xpert Norovirus Assay. This assay uses nucleic [...] GENERAL ORDERABLES Final Result Performing Organization Address City/[facility] Co de Phone Number [facility] Department [place] [address] [facility] * Stool culture Stool Rectum (08/16/2024 10:31 AM CDT) Direct Specimen Exam Shiga Toxin Testing: Antigen detection assay for Shiga-toxin NEGATIVE for Shiga Toxin 1 and Shiga Toxin 2. Report Final Report: No growth of enteric bacterial pathogens [facility] Stool (Rectum) 08/16/2024 10 :31 AM CDT 08/16/2024 12:41 PM CDT Narrative [facility] - 08/20/2024 8:30 AM CDT Testing performed by [facility] ([phone]). Routine stool cultures include procedures to detect Salmonella, Shigella, Edwardsiella, Aeromonas, Pleisiomonas, Campylobacter, Yersinia, E. coli O157, and Shiga-like toxins. Vibrio is cultured only upon special request. If Vibrio is suspected, please call the laboratory at [phone]. Interpretive data was last updated October 03, 2016. Arley Cheung MD LAB MICROBIOLOGY - GENERAL ORDERABLES Final Result Performing Organization Address [facility] Co de Phone Number [facility] Department [place] [address] * Infection Prevention VRE Culture Stool (08/16/2024 10:27 AM CDT) Report Final Report: Negative Stool 08/16/2024 10:2 7 AM CDT 08/16/2024 2:55 PM CDT Narrative [facility] - 08/18/2024 6:13 PM CDT Surveillance culture for Infection Prevention purposes only; results indicate colonization, not infection requiring treatment. Testing performed by [facility] ([phone]). Arley Cheung MD LAB MICROBIOLOGY - GENERAL ORDERABLES Final Result [facility] One [facility] Department [place] [address] * Differential, auto (08/16/2024 5:16 AM CDT) Neutrophil abs 4.5 1.5 - 6.5 K/cumm Imm gran abs 0.0 0.0 - 0.1 K/cumm [facility] Lymphocyte abs 1.1 0.8 - 3.3 K/cumm [facility] Monocyte abs 0.7 0.2 - 0.8 K/cumm [facility] Eosinophil abs 0.1 0.0 - 0.5 K/cumm [facility] Basophil abs 0.1 0.0 - 0.1 K/cumm [facility] Neutrophil pct 68.8 % [facility] Comment: Interpretive Data Percent cell count reference ranges are not reported, since discordance with absolute values may lead to misinterpretation of CBC data. Current Interpretive Data was last revised on 2017. Imm gran pct 0.5 % [facility] Comment: Interpretive Data Percent cell count reference ranges are not reported, since discordance with absolute values may lead to misinterpretation of CBC data. Current Interpretive Data was last revised on 2017. Lymphocyte pct 16.7 % [facility] Comment: Interpretive Data Percent cell count reference ranges are not reported, since discordance with absolute values may lead to misinterpretation of CBC data. Current Interpretive Data was last revised on 2017. Monocyte pct 10.5 % [facility] Comment: Interpretive Data Percent cell count reference ranges are not reported, since discordance with absolute values may lead to misinterpretation of CBC data. Current Interpretive Data was last revised on 2017. Eosinophil pct 1.7 % [facility] Comment: Interpretive Data Percent cell count reference ranges are not reported, since discordance with absolute values may lead to misinterpretation of CBC data. Current Interpretive Data was last revised on 2017. Basophil pct 1.8 % [facility] Comment: Interpretive Data Percent cell count reference ranges are not reported, since discordance with absolute values may lead to misinterpretation of CBC data. Current Interpretive Data was last revised on 2017. Blood 08/16/2024 5:16 AM CDT 08/16/2024 5:50 AM CDT us John De Anda MD LAB BLOOD ORDERABLES Final Result Performing Organization Address City/[facility]/ZIP Co de Phone Number [facility] Department [place] [address] * (ABNORMAL) Iron profile w/ IBC (08/16/2024 5:16 AM CDT) Pathologist [facility] Iron 41(L) 50 - 150 mcg/dL TIBC 152(L) 250 - 400 mcg/dL [facility] Transferrin saturation 27 20 - 50 % [facility] Blood 08/16/2024 5:16 AM CDT 08/16/2024 5:50 AM CDT us Arley Cheung MD LAB BLOOD ORDERABLES Final Result [facility] Department [place] [address] * (ABNORMAL) CBC with auto differential (08/16/2024 5:16 AM CDT) WBC 6.6 3.8 - 9.9 K/cumm Hgb 10.1(L) 13.0 - 17.5 g/dL [facility] Hct 31.3(L) 38.9 - 50.3 % [facility] Plt 710(H) 150 - 400 K/cumm [facility] MPV 8.8(L) 9.1 - 12.3 fL [facility] RBC 3.44(L) 4.30 - 5.80 M/cumm [facility] MCV 91.0 81.3 - 96.4 fL [facility] MCH 29.4 27.1 - 33.3 pg [facility] MCHC 32.3 32.3 - 35.7 g/dL [facility] RDW CV 17.6(H) 11.1 - 14.9 % [facility] RDW SD 58.5(H) 35.7 - 48.1 fL [facility] NRBC abs 0.00 0.00 - 0.01 K/cumm [facility] Blood 08/16/2024 5:16 AM CDT 08/16/2024 5:50 AM CDT John De Anda MD LAB BLOOD ORDERABLES Final Result [facility] Department [place] [address] * Phosphorus (08/16/2024 5:16 AM CDT) Phosphorus, pl 3.0 2.3 - 4.5 mg/dL Blood 08/16/2024 5:16 AM CDT 08/16/2024 5:50 AM CDT John De Anda MD LAB BLOOD ORDERABLES Final Result [facility] Department [place] [address] * Magnesium (08/16/2024 5:16 AM CDT) Magnesium 2.1 1.4 - 2.5 mg/dL Blood 08/16/2024 5:16 AM CDT 08/16/2024 5:50 AM CDT John De Anda MD LAB BLOOD ORDERABLES Final Result [facility] [place] [address] * Folate (08/16/2024 5:16 AM CDT) Folic acid >20.0 >=5.0 ng/mL Blood 08/16/2024 5:16 AM CDT 08/16/2024 5:50 AM CDT Arley Cheung MD LAB BLOOD ORDERABLES Final Result Performing Organization Address [facility] [place] [address] * (ABNORMAL) Ferritin (08/16/2024 5:16 AM CDT) Pathologist [facility] Ferritin 527(H) 30 - 400 ng/mL Blood 08/16/2024 5:16 AM CDT 08/16/2024 5:50 AM CDT Arley Cheung MD LAB BLOOD ORDERABLES Final Result Performing Organization Address City/[facility] Co de Phone Number [facility] Department [place] [address] * Vitamin B12 (08/16/2024 5:16 AM CDT) Vitamin B12 810 230 - 1,250 pg/mL Blood 08/16/2024 5:16 AM CDT 08/16/2024 5:50 AM CDT Arley Cheung MD LAB BLOOD ORDERABLES Final Result Performing Organization Address City/[facility]/ZIP Co de Phone Number [facility] [place] [address] * (ABNORMAL) Hepatic function panel (08/16/2024 5:16 AM CDT) Pathologist [facility] Bilirubin, total 0.2 0.1 - 1.2 mg/dL Comment:Reviewed Bilirubin, direct <0.2 0.1 - 0.3 mg/dL [facility] Protein, pl 6.7 6.5 - 8.5 g/dL [facility] Albumin 3.4(L) 3.5 - 5.0 g/dL [facility] Alk phos 122 40 - 130 Units/L [facility] ALT 11 7 - 55 Units/L [facility] AST 20 10 - 50 Units/L [facility] Blood 08/16/2024 5:16 AM CDT 08/16/2024 5:50 AM CDT us Arley Cheung MD LAB BLOOD ORDERABLES Final Result Performing Organization Address City/State/[facility] Co de Phone Number [facility] One [facility] Department [place] [address] * ECG 12 lead (08/16/2024 1:04 AM CDT) Pathologist [facility] Ventricular Rate EKG/Min 104 BPM [facility] Atrial Rate 104 BPM [facility] MI-Interval (MSEC) 156 ms [facility] QRS-Interval (MSEC) 86 ms [facility] QT-Interval (MSEC) 352 ms [facility] QTc 462 ms [facility] P [place] 49 degrees [facility] R [place] -23 degrees [facility] T [place] 31 degrees [facility] Diagnosis Sinus tachycardia Otherwise normal ECG When compared with ECG of 24-SEP-2019 19:36, No significant change was found Confirmed by Dakotah Khan MD ([id number]) on 08/21/2024 2:38:38 PM [facility] 08/16/2024 1:04 AM CDT 08/21/2024 2:38 PM CDT us John De Anda MD ECG ORDERABLES Final Resul t Performing Organization Address City/[facility] Co de Phone Number [facility] * Urinalysis reflex to microscopic and culture Urine (08/16/2024 12:17 AM CDT) Pathologist [facility] Color, ur Yellow Yellow Clarity, ur Clear Clear [facility] Specific gravity, ur 1.018 1.003 - 1.030 [facility] pH, urine 7.0 [facility] Comment: Interpretive Data U rine pH is affected by diet, medications, systemic acid-base disturbances, and renal tubular function. pH may affect urinary stone formation. For example, urine pH below 6.0 may help reduce the tendency for calcium phosphate stones and pH greater than 6.0 may reduce the tendency for uric acid stone formation. Source: [facility] [employer] Current Interpretive Data was last revised on 2017 Protein, ur ql Negative Negative [facility] Glucose, ur ql Negative Negative [facility] Ketones, ur Negative Negative [facility] Bilirubin, ur Negative Negative [facility] Blood, ur Negative Negative [facility] Urobilinogen, ur <2.0 <2.0 mg/dL [facility] Nitrite, ur Negative Negative [facility] Leukocyte esterase, ur Negative Negative [facility] UA reflex comment Reflex conditions for microscopic UA and culture not met. [facility] Urine 08/16/2024 12:1 7 AM CDT 08/16/2024 1:21 AM CDT John De Anda MD LAB MICROBIOLOGY - GENERAL ORDERABLES Final Result Performing Organization Address [facility] Co de Phone Number [facility] One [facility] Department [place] [address] * Respiratory pathogen panel Nasopharyngeal (08/16/2024 12:17 AM CDT) [facility] Influenza A RNA Not Detected Not Detected Influenza B RNA Not Detected Not Detected [facility] RSV RNA Not Detected Not Detected [facility] COVID-19 RNA Not Detected Not Detected [facility] Coronavirus 229E RNA Not Detected Not Detected [facility] Coronavirus HKU1 RNA Not Detected Not Detected [facility] Coronavirus NL63 RNA Not Detected Not Detected [facility] Coronavirus OC43 RNA Not Detected Not Detected [facility] Adenovirus DNA Not Detected Not Detected [facility] Metapneumovirus RNA Not Detected Not Detected [facility] Rhinovirus/Enterov irus RNA Not Detected Not Detected [facility] Parainfluenza 1 RNA Not Detected Not Detected [facility] Parainfluenza 2 RNA Not Detected Not Detected [facility] Parainfluenza 3 RNA Not Detected Not Detected [facility] Parainfluenza 4 RNA Not Detected Not Detected [facility] B. pertussis DNA Not Detected Not Detected [facility] B. parapertussis DNA Not Detected Not Detected [facility] C. pneumoniae DNA Not Detected Not Detected [facility] M. pneumoniae DNA Not Detected Not Detected [facility] Nasopharyngeal 08/16/2024 12 :17 AM CDT 08/16/2024 1:27 AM CDT Narrative [facility] - 08/16/2024 2:22 AM CDT Is the Patient experiencing symptoms consistent with COVID?->No Surveillance testing for transplant patient?->No Interpretive Data The [employer] FilmArray Respiratory Panel (RP2.1) assay is a [...] assay has FDA clearance for testing of SENIOR AUDIT MANAGER swabs. The performance of additional specimen types has been assessed by the performing laboratory. The performance characteristics of this assay have been determined by [facility] Molecular Infectious Disease Laboratory. Current interpretive data was last revised on 22. Arley Cheung MD LAB MICROBIOLOGY - GENERAL ORDERABLES Final Result [facility] One [facility] Department [place] [address] * eGFR (08/15/2024 11:28 PM CDT) eGFR [...] Anda MD LAB BLOOD ORDERABLES Final Result [facility] One [facility] Department [place] [address] * (ABNORMAL) Differential, auto (08/15/2024 11:28 PM CDT) Neutrophil abs 7.9(H) 1.5 - 6.5 K/cumm Imm gran abs 0.1 0.0 - 0.1 K/cumm [facility] Lymphocyte abs 0.6(L) 0.8 - 3.3 K/cumm [facility] Monocyte abs 0.7 0.2 - 0.8 K/cumm [facility] Eosinophil abs 0.1 0.0 - 0.5 K/cumm [facility] Basophil abs 0.1 0.0 - 0.1 K/cumm [facility] Neutrophil pct 84.3 % [facility] Comment: Interpretive Data Percent cell count reference ranges are not reported, since discordance with absolute values may lead to misinterpretation of CBC data. Current Interpretive Data was last revised on 2017. Imm gran pct 0.7 % [facility] Comment: Interpretive Data Percent cell count reference ranges are not reported, since discordance with absolute values may lead to misinterpretation of CBC data. Current Interpretive Data was last revised on 2017. Lymphocyte pct 6.1 % [facility] Comment: Interpretive Data Percent cell count reference ranges are not reported, since discordance with absolute values may lead to misinterpretation of CBC data. Current Interpretive Data was last revised on 2017. Monocyte pct 7.1 % [facility] Comment: Interpretive Data Percent cell count reference ranges are not reported, since discordance with absolute values may lead to misinterpretation of CBC data. Current Interpretive Data was last revised on 2017. Eosinophil pct 0.7 % [facility] Comment: Interpretive Data Percent cell count reference ranges are not reported, since discordance with absolute values may lead to misinterpretation of CBC data. Current Interpretive Data was last revised on 2017. Basophil pct 1.1 % [facility] Comment: Interpretive Data Percent cell count reference ranges are not reported, since discordance with absolute values may lead to misinterpretation of CBC data. Current Interpretive Data was last revised on 2017. Blood 08/15/2024 11:2 8 PM CDT 08/15/2024 11:31 PM CDT John De Anda MD LAB BLOOD ORDERABLES Final Result Performing Organization Address City/[facility]/ZIP Co de Phone Number [facility] Department [place] [address] * Thyroid Function Willis (08/15/2024 11:28 PM CDT) TSH 0.72 0.30 - 4.20 mcIUnit/mL Blood 08/15/2024 11:2 8 PM CDT 08/15/2024 11:31 PM CDT John De Anda MD LAB BLOOD ORDERABLES Final Result Performing Organization Address City/[facility] Co de Phone Number [facility] Department [place] [address] * HIV 1/2 Antibody plus p24 Antigen Blood (08/15/2024 11:28 PM CDT) HIV 1/2 ab + p24 ag Nonreactive [...] GENERAL ORDERABLES Final Result Performing Organization Address City/[facility]/ZIP Co de Phone Number [facility] Department [place] [address] * (ABNORMAL) CBC with auto differential (08/15/2024 11:28 PM CDT) [facility] WBC 9.4 3.8 - 9.9 K/cumm Hgb 9.4(L) 13.0 - 17.5 g/dL [facility] Hct 28.3(L) 38.9 - 50.3 % [facility] Plt 654(H) 150 - 400 K/cumm [facility] MPV 8.8(L) 9.1 - 12.3 fL [facility] RBC 3.11(L) 4.30 - 5.80 M/cumm [facility] MCV 91.0 81.3 - 96.4 fL [facility] MCH 30.2 27.1 - 33.3 pg [facility] MCHC 33.2 32.3 - 35.7 g/dL [facility] RDW CV 17.7(H) 11.1 - 14.9 % [facility] RDW SD 59.1(H) 35.7 - 48.1 fL [facility] NRBC abs 0.00 0.00 - 0.01 K/cumm [facility] Blood 08/15/2024 11:2 8 PM CDT 08/15/2024 11:31 PM CDT us John De Anda MD LAB BLOOD ORDERABLES Final Result [facility] [employer] [place] [address] * Hepatitis C antibody Blood (08/15/2024 11:28 [...] GENERAL ORDERABLES Final Result Performing Organization Address [facility] Co de Phone Number [facility] [employer] [place] [address] * RPR Blood (08/15/2024 11:28 PM CDT) RPR Nonreactive Nonreactive Blood 08/15/2024 11:2 8 PM CDT 08/15/2024 11:31 PM CDT John De Anda MD LAB MICROBIOLOGY - GENERAL ORDERABLES Final Result Performing Organization Address [facility] de Phone Number [facility] [employer] [place] [address] * Hepatitis B Surface Antigen Blood (08/15/2024 11:28 PM CDT) Pathologist [facility] HepBsAg Nonreactive Nonreactive Blood 08/15/2024 11:2 8 PM CDT 08/15/2024 11:33 PM CDT John De Anda MD LAB MICROBIOLOGY - GENERAL ORDERABLES Final Result Performing Organization Address [facility] [place] [address] * aPTT (08/15/2024 11:28 PM CDT) Pathologist [facility] aPTT 35 28 - 38 sec Comment: Interpretive Data Heparin therapeutic range: 66.0 - 100.0 seconds. Range based on correlation with therapeutic heparin activity range of 0.3 - 0.7 Units/mL. Current interpretive data was last revised on 2023. Blood 08/15/2024 11:2 8 PM CDT 08/15/2024 11:35 PM CDT John De Anda MD LAB BLOOD ORDERABLES Final Result Performing Organization Address [facility] Co de Phone Number [facility] [place] [address] * Protime-INR (08/15/2024 11:28 PM CDT) PT 12.6 9.7 - 13.0 sec INR 1.16 0.90 - 1.20 [facility] Comment: Interpretive data Oral anticoagulant [...] BLOOD ORDERABLES Final Result Performing Organization Address [facility] Co de Phone Number [facility] [place] [address] * Type and screen (08/15/2024 11:28 PM CDT) ABO Rh O Positive Prince, indirect Negative [facility] Blood 08/15/2024 11:2 8 PM CDT 08/15/2024 11:36 PM CDT Narrative [facility] - 08/16/2024 12:23 AM CDT Has the patient had Daratumumab or Isatuximab in the past 6 months?->Unknown John De Anda MD LAB BLOOD BANK TEST ORDERAB LES Final Result Performing Organization Address City/[facility]/ZIP Co de Phone Number [facility] [place] [address] * (ABNORMAL) Phosphorus (08/15/2024 11:28 PM CDT) [facility] Phosphorus, pl 2.0(L) 2.3 - 4.5 mg/dL Blood 08/15/2024 11:2 8 PM CDT 08/15/2024 11:32 PM CDT John De Anda MD LAB BLOOD ORDERABLES Final Result Performing Organization Address City/[facility] [place] [address] * Magnesium (08/15/2024 11:28 PM CDT) [facility] Magnesium 1.8 1.4 - 2.5 mg/dL Blood 08/15/2024 11:2 8 PM CDT 08/15/2024 11:32 PM CDT John De Anda MD LAB BLOOD ORDERABLES Final Result Performing Organization Address City/[facility] Co de Phone Number [facility] [place] [address] * Lipase (08/15/2024 11:28 PM CDT) [facility] Lipase 24 10 - 99 Units/L Blood 08/15/2024 11:2 8 PM CDT 08/15/2024 11:31 PM CDT John De Anda MD LAB BLOOD ORDERABLES Final Result Performing Organization Address City/[facility] Co de Phone Number [facility] [place] [address] * Hemoglobin A1c (08/15/2024 11:28 PM CDT) [facility] Hgb A1C 5.2 4.0 - 5.6 % Estimated Average Glucose 103 mg/dL [facility] Comment: The ADA recommends reporting [...] Anda MD LAB BLOOD ORDERABLES Final Result [facility] One [facility] Department [place] [address] * (ABNORMAL) Lipid panel (08/15/2024 11:28 PM CDT) Pathologist [facility] Cholesterol 90 30 - 199 mg/dL Comment: [...] revised on 2018. Triglycerides 93 <=149 mg/dL [facility] Comment: Interpretive Data Ages < [...] revised on 2018. HDL 27(L) >=40 mg/dL [facility] Comment: Interpretive Data Ages < or = [...] 2018. LDL, calculated 45 <=129 mg/dL [facility] Comment: Interpretive Data Ages < or = [...] 3. Jani Wong et al. STANISLAV Cardiol. 2019September 26;5(5):540-548. doi: [email or web address] Current Interpretive Data was last revised on 2024. Non-HDL Cholesterol 63 mg/dL [facility] Comment: Interpretive Data Ages < or = [...] last revised on 2018. Chol/HDL ratio 3 [facility] Blood 08/15/2024 11:2 8 PM CDT 08/15/2024 11:32 PM CDT us John De Anda MD LAB BLOOD ORDERABLES Final Result [facility] One [facility] Department [place] [address] * (ABNORMAL) Comprehensive metabolic panel (08/15/2024 11:28 PM CDT) Sodium 132(L) 135 - 145 mmol/L Potassium, pl 3.8 3.3 - 4.9 mmol/L [facility] Chloride 99 97 - 110 mmol/L [facility] CO2 24 22 - 32 mmol/L [facility] Anion gap 9 2 - 15 mmol/L [facility] BUN 7 6 - 25 mg/dL [facility] Creatinine 1.01 0.80 - 1.30 mg/dL [facility] Glucose 122 70 - 199 mg/dL [facility] Comment: Interpretive Data Fasting glucose [...] 2022. Calcium 9.0 8.5 - 10.3 mg/dL [facility] Bilirubin, total <0.2 0.1 - 1.2 mg/dL [facility] Protein, pl 6.7 6.5 - 8.5 g/dL [facility] Albumin 3.2(L) 3.5 - 5.0 g/dL [facility] Alk phos 122 40 - 130 Units/L [facility] ALT 12 7 - 55 Units/L [facility] AST 19 10 - 50 Units/L [facility] Blood 08/15/2024 11:2 8 PM CDT 08/15/2024 11:32 PM CDT John De Anda MD LAB BLOOD ORDERABLES Final Result Performing Organization Address City/State/[facility] Co de Phone Number [facility] One [facility] Department [place] [address] from Last 3 Months Insurance [facility] MEDICARE ADVANTAGE [facility] Address: [address] [address] [place] [address] [facility]IG [facility] H[facility]PPO Address: [address] [place] [address] [facility] MEDICARE ADVANTAGE [facility] Address: [address] [address] [place] [address] Advance Directives For more information, please contact: [phone] * Full Code (Latest Code Status on [...] 4:45 AM 06/13/2023 8:44 PM Care Teams Personnel Associate Relationship Specialty Start Date End Date Ronnell Escobar NP [address] [place] [address] PCP - General Nurse Practitioner 08/16/24
[2024-11-03 21:58] VITALS: BP 134/89; PULSE 102; RESP 20; TEMP 37.1; O2SAT 100
--- NOTE | 2024-11-03 22:09 | ECG_ITS ---
Test Date: 2024-11-03 22:11:41 Measurements Intervals [place] Rate: 92 P: 70 FL: 156 QRS: -15 QRSD: 89 T: 53 QT: 353 QTc: 438 Interpretive Statements SINUS RHYTHM CANNOT R/O SEPTAL INFARCT, AGE INDETERMINATE PEAKED T WAVES- CONSIDER HYPERKALEMIA BASELINE ARTIFACT- I, II, III, AVR, AVL, AVF, V1-V6 ABNORMAL ECG Compared to ECG 08/05/2024 02:37:24 HEART RATE HAS DECREASED PEAKED T WAVES NOW PRESENT Electronically Signed On 11-04-2024 06:08:56 CDT by Dale Santiago D.O.
[2024-11-03 22:28] LABS: Basophils Absolute Auto 0.1 K/mm3 (0.0-0.1); Basophils Percent Auto 0.8 % (0.2-1.2); Eosinophils Percent Auto 0.1 % (0-4.4); Hematocrit 41.4 % (42.0-52.0); Hemoglobin 13.9 g/dL (14.0-18.0); Immature Granulocyte Absolute 0.03 K/mm3 (0.00-0.031); Immature Granulocyte Percent A 0.4 % (0-0.5); Lymphocytes Absolute Auto 1.89 K/mm3 (0.9-3.2); Lymphocytes Percent Auto 22.4 % (18.3-44.2); Mean Corpuscular HGB Conc 33.6 g/dl (32-36); Mean Corpuscular Hemoglobin 29.1 pg (26-34); Mean Corpuscular Volume 86.6 fl (80-100); Mean Platelet Volume 8.6 fl (7.4-10.4); Monocytes Absolute Auto 0.6 K/mm3 (0.1-0.6); Monocytes Percent Auto 6.9 % (2.6-8.5); Neutrophils Absolute Auto 5.9 K/mm3 (1.3-6.7); Neutrophils Percent Auto 69.4 % (45.5-73.1); Platelet Count Result 215 k/mm3 (150-375); Red Blood Count 4.78 M/mm3 (4.6-6.20); Red Cell Distribution Width 14.4 % (11.5-14.5); White Blood Count 8.5 K/mm3 (4.5-10.0)
[2024-11-03 22:29] LABS: Add Urine Microscopic? NO; Appearance Urine Clear (Clear); Bilirubin Urine Negative (Negative); Blood Urine Negative (Negative); Color Urine Yellow (Yellow); Glucose Urine UA Negative (Negative); Ketones Urine Negative (Negative); Leukocyte Esterase Ur Negative LEU/UL (Negative); Nitrate Urine Negative (Negative); Protein Urine Negative (Negative); Specific Grav Ur 1.006 (1.001-1.035); Urobilinogen Urine 0.2 mg/dL (<2.0)
[2024-11-03 22:37] LABS: Alanine Aminotransferase 51 U/L (6-50); Albumin Level 5.2 g/dL (3.5-5.1); Alkaline Phosphatase 87 U/L (38-126); Anion Gap 19 mmol/L (4-12); Aspartate Amino Transferase 74 U/L (17-59); Bilirubin,Total 0.5 mg/dL (0.2-1.3); Blood Urea Nitrogen 18 mg/dL (9-20); Calcium 9.2 mg/dL (8.4-10.2); Carbon Dioxide 17 mmol/L (22-30); Chloride 103 mmol/L (98-107); Estimated CRCL calculation 86 ml/min; Estimated Glomerular Filt Rate > 60; Glucose 92 mg/dL (65-110); Lipase 33 U/L (23-300); Potassium 3.8 mmol/L (3.4-5.0); Sodium 139 mmol/L (137-145); Total Protein 8.5 g/dL (6.3-8.2)
[2024-11-03 22:40] LABS: Prothrombin Time 13.2 Seconds (11.1-14.7)
[2024-11-03 22:41] LABS: Partial Thromboplastin Time 27.3 Seconds (22.3-36.8)
[2024-11-03 22:49] LABS: Troponin I < 0.012 ng/mL (0.000-0.034)
[2024-11-03 23:28] VITALS: PULSE 99; RESP 17; O2SAT 99
[2024-11-03 23:30] VITALS: PULSE 97; RESP 11; O2SAT 97
[2024-11-03 23:31] VITALS: BP 124/92; PULSE 104; RESP 18; O2SAT 98
[2024-11-03 23:45] VITALS: PULSE 105; RESP 13; O2SAT 97
[2024-11-04] VITALS (18 sets, daily range): BP systolic 125–142; BP diastolic 85–96; PULSE 95–110; RESP 11–21; O2SAT 94–100
--- OUTSIDE RECORDS SUMMARY | 2024-11-04 00:44 | XMS_ITS | Continuity of Care Document ---
Author Organization [facility] Address [address] [place] [address] [address] [place] [address] Phone Care Team Providers Care Council Member Name Role Phone Glenn Maciel Unavailable Unavailable [...] Therapeutic Exercise PT Re-evaluation Neuromuscular Re-Ed Therapeutic Activities Therapeutic Exercise Therapeutic [...] Providers Copied on Encounter [facility], [address] [address], [place], [place], [id number], [place] tel:[phone] [place] No Information Oct-0 9-202 0 Muehl Glenn. [address] [place] [address], [address], [place], [address], [place]. tel:[phone] [place], [place] [address], [place], [place], [address], [place] tel:[phone] [place] No Information Oct-0 8-202 0 Muehl Glenn. [address] [place] [address], [address], [place], [address], [place]. tel:[phone] [place], [place] [address], [place], [place], [address], [place] tel:[phone] [place] No Information Oct-0 6-202 0 Lehnen Velma. . [facility] [address] [place], [place] [address], [place], [place], [address], [place] tel:[phone] [place] No Information Oct-0 2-202 0 Lehnen Velma. . [facility] [address] [place], [place] [address], [place], [place], [address], [place] tel:[phone] [place] No Information Oct-0 1-202 0 Muehl Glenn. [address] [place] [address], [address], [place], [address], [place]. tel:[phone] [place], [place] [address], [place], [address], [place] tel:[phone] [place] No Information Sep-2 9-202 0 Muehl Glenn. [address] [place] [address], [address], [place], [address], [place]. tel:[phone] [place], [place] [address], [place], [place], [address], [place] tel:[phone] [place] No Information Sep-2 4-202 0 Muehl Glenn. [address] [place] [address], [address], [place], [address], [place]. tel:[phone] [place], [place] [address], [place], [address], [place] tel:[phone] [place] No Information Sep-2 2-202 0 Muehl Glenn. [address] [place] [address], [address], [place], [facility], [place]. tel:[phone] [place], [place] [address], [place], [address], tel:[phone] [place] No Information Sep-1 8-202 0 Muehl Glenn. [address] [place] [address], [address], [place], [facility], [place]. tel:[phone] [place] [address] [address], [place], [address], tel:[phone] [place] No Information Sep-1 5-202 0 Muehl Glenn. [address] [place] [address], [address], [place], [facility], [place]. tel:[phone] [place], [place] [address], [place], [place], [address], tel:[phone] [place] No Information Sep-1 1-202 0 Darío Cervantes. . [address], [place], [place], [address], tel:[phone] [place] No Information Sep-1 0-202 0 Muehl Glenn. [address] [place] [address], [facility], [place], [facility], [place]. tel:[phone] [place], [place] [address], [place], [address], [place] tel:[phone] [place] No Information Sep-0 8-202 0 Muehl Glenn. [address] [place] [address], [facility], [place], [facility], [place]. tel:[phone] [place], [place] [address], [place], [address], tel:[phone] [place] No Information Sep-0 4-202 0 Muehl Glenn. [address] [place] [address], [address], [place], [address], [place]. tel:[phone] [place], [place] [address], [place], [address], [place] tel:[phone] [place] No Information Sep-0 3-202 0 Muehl Glenn. [address] [place] [address], [address], [place], [address], [place]. tel:[phone] [place], [place] [address], [place], [address], [place] tel:[phone] [place] No Information Sep-0 1-202 0 Muehl Glenn. [address] [place] [address], [address], [place], [address], [place]. tel:[phone] [place] [address], [place], [place], [address], [place] tel:[phone] [place] No Information Aug-2 8-202 0 Threlkeld Shanell. . [address], [place], [place], [address], [place] tel:[phone] [place] No Information Aug-2 7-202 0 Muehl Glenn. [address] [place] [address], [address], [place], [address], [place]. tel:[phone] [place] [address], [place], [place], [address], [place] tel:[phone] [place] No Information Aug-2 5-202 0 Muehl Glenn. [address] [place] [address], [address], [place], [address], [place]. tel:[phone] [place], [place] [address], [place], [place], [address], [place] tel:[phone] [place] No Information Aug-2 1-202 0 Muehl Glenn. [address] [place] [address], [address], [place], [address], [place]. tel:[phone] [place] [address], [place], [place], [address], [place] tel:[phone] [place] No Information Aug-2 0-202 0 Muehl Glenn. [address] [place] [address], [address], [place], [address], [place]. tel:[phone] [place] [id number] [place] [address], [place], [address], [place] tel:[phone] [place] No Information Aug-1 8-202 0 Muehl Glenn. [address] [place] [address], [address], [place], [address], [place]. tel:[phone] [place] [address] [place] [address], [place], [place], [address], [place] tel:[phone] [place] No Information Dec-1 3- 0 Muehl Glenn. [address] [place] [address], [address], [place], [address], [place]. tel:[phone] [place] [address] [place] [address], [place], [address], [place] tel:[phone] [place] No Information Dec-1 1- 0 Muehl Glenn. [address] [place] [address], [address], [place], [address], [place]. tel:[phone] [place] [address] [place] [address], [place], [place], [address], [place] tel:[phone] [place] No Information Aug-0 7-202 0 Niederhoffer Helen. . [facility], [place], [place], [address], [place] tel:[phone] [place] No Information Aug-0 6-202 0 Niederhoffer Helen. . [facility], [place], [address], [place] tel:[phone] [place] No Information Aug-0 5-202 0 Jessa Carreon. . [facility], [place], [place], [address], [place] tel:[phone] [place] No Information Nov- 1-202 0 Muehl Glenn. [address] [place] [address], [address], [place], [address], [place]. tel:[phone] [place] [address] [address], [place], [place], [address], [place] tel:[phone] [place] No Information Nov-3 0-202 0 Muehl Glenn. [address] [place] [address], [address], [place], [address], [place]. tel:[phone] [place] [address] [address], [place], [place], [address], [place] tel:[phone] [place] No Information Nov- 8-202 0 Muehl Glenn. [address] [place] [address], [address], [place], [address], [place]. tel:[phone] [place] [address] [address], [place], [place], [address], [place] tel:[phone] [place] No Information 4-202 0 Muehl Glenn. [address] [place] [address], [address], [place], [address], [place]. tel:[phone] [place] [address] [address], [place], [place], [address], [place] tel:[phone] [place] No Information 3-202 0 Muehl Glenn. [address] [place] [address], [address], [place], [address], [place]. tel:[phone] [place] [address] [address], [place], [place], [address], [place] tel:[phone] [place] No Information 1-202 0 Muehl Glenn. [address] [place] [address], [address], [place], [address], [place]. tel:[phone] [place] [address] [address], [place], [place], [address], [place] tel:[phone] [place] No Information Nov-1 6-202 0 Muehl Glenn. [address] [place] [address], [address], [place], [address], [place]. tel:[phone] [place] [address] [address], [place], [place], [address], [place] tel:[phone] [place] No Information Nov-1 4-202 0 Muehl Glenn. [address] [place] [address], [address], [place], [address], [place]. tel:[phone] [place] [address] [address], [place], [place], [address], [place] tel:[phone] [place] No Information Nov-1 0-202 0 Muehl Glenn. [address] [place] [address], [address], [place], [address], [place]. tel:[phone] [place] [address] [address], [place], [place], [address], [place] tel:[phone] [place] No Information Nov-0 9-202 0 Muehl Glenn. [address] [place] [address], [address], [place], [address], [place]. tel:[phone] [place] [address] [address], [place], [place], [address], [place] tel:[phone] [place] No Information Nov-0 7-202 0 Muehl Glenn. [address] [place] [address], [address], [place], [address], [place]. tel:[phone] [place] [address] [address], [place], [place], [address], [place] tel:[phone] [place] No Information [place]-0 2-202 0 Muehl Glenn. [address] [place] [address], [address], [place], [address], [place]. tel:[phone] [place] [address] [address], [place], [place], [address], [place] tel:[phone] [place] No Information Robert-3 0-202 0 Muehl Glenn. [address] [place] [address], [address], [place], [place], [facility], [place]. tel:[phone] [place], [place] [address], [place], [place], [address], tel:[phone] [place] No Information Robert-2 9-202 0 Muehl Glenn. [address] [place] [address], [address], [place], [facility], [place]. tel:[phone] [place], [place] [address], [place], [place], [address], [place] tel:[phone] [place] No Information Robert-2 6-202 0 Muehl Glenn. [address] [place] [address], [address], [place], [facility], [place]. tel:[phone] [address] [place] [address] [address], [place], [place], [address], [place] tel:[phone] [place] No Information Robert-2 5-202 0 Lehnen Velma. . [address], [place], [place], [address], [place] tel:[phone] [place] No Information Robert-2 3-202 0 Muehl Glenn. [address] [place] [address], [address], [place], [facility], [place]. tel:[phone] [place] [address], [place], [address], [place] tel:[phone] [place] No Information Robert-1 9-202 0 Muehl Glenn. [address] [place] [address], [address], [place], [facility], [place]. tel:[phone] [place] [address], [place], [place], [address], [place] tel:[phone] [place] No Information Robert-1 8-202 0 Muehl Glenn. [address] [place] [address], [address], [place], [facility], [place]. tel:[phone] [place] [address], [place], [place], [address], tel:[phone] [place] No Information Oct-1 6-202 0 Muehl Glenn. [address] [place] [address], [address] [address], . tel:[phone] [place] [address], [address], tel:[phone] [place] No Information 2-202 0 Muehl Glenn. [address] [place] [address], [address], [address] [address], . tel:[phone] [place] [address], [place], [address], tel:[phone] [place] No Information 1-202 0 Muehl Glenn. [address] [place] [address], [facility] [address], [place], [facility], . tel:[phone] [address] [place] [address], [place], [address], tel:[phone] [place] No Information Robert-0 9-202 0 Muehl Glenn. [address] [place] [address], [address] [address], . tel:[phone] [address] [place] [address], [address], tel:[phone] [place] No Information Robert-0 5-202 0 Muehl Glenn. [address] [place] [address], [address] [address], . tel:[phone] Family History Family Member Type Diagnosis Age At Onset No Information Payers Payer name Insurance type Covered green party ID Authorboris valdivia(s) [facility] [id number] Social History Type Description Quantity Date Captured [...]
--- OUTSIDE RECORDS SUMMARY | 2024-11-04 00:44 | XMS_ITS | Encounter Summary ---
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 difficile suspected 08/16/2024 08/16/202408/16 2:48 PM [...] documented as of this encounter Care Teams Licensed Mortgage Loan Officer Relationship Specialty Start Date End Date Unknown, Notinfile PCP - General 10/01/19 04/26/20 Lamberto Barker MD [address] [place] [address] PCP - General Internal Medicine 04/27/20 12/27/21 Don Walton PA [address] [place] [address] PCP - General Physician Superintendent Container [employer] 12/28/21 08/15/24 Ronnell Escobar NP [address] [place] [address] PCP - General Nurse Practitioner 08/16/24 Savanah Galvez, RN [address] [facility] [address] [place] [address] SHOP Outpatient Parking Ramp Attendant 08/22/24 08/25/24 documented as of this encounter
--- OUTSIDE RECORDS SUMMARY | 2024-11-04 00:44 | XMS_ITS | Encounter Summary ---
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 difficile suspected 08/16/2024 08/16/202408/16 2:48 PM [...] documented as of this encounter Care Teams Jute Bag Sewer Relationship Specialty Start Date End Date Unknown, Notinfile PCP - General 10/01/19 04/26/20 Lamberto Barker MD [address] [place], [place] [id number] PCP - General Internal Medicine 04/27/20 12/27/21 Don Walton PA [address] [place], [place] [id number] PCP - General Physician Application Manager 12/28/21 08/15/24 Ronnell Escobar NP [address] [place] [address] PCP - General Nurse Practitioner 08/16/24 Savanah Galvez, RN [address] [facility] [address] [place] [address] SHOP Outpatient Line Production Cook 08/22/24 08/25/24 documented as of this encounter
--- OUTSIDE RECORDS SUMMARY | 2024-11-04 00:44 | XMS_ITS | Encounter Summary ---
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 difficile suspected 08/16/2024 08/16/202408/16 2:48 PM [...] documented as of this encounter Care Teams Package Drier Relationship Specialty Start Date End Date Unknown, Notinfile PCP - General 10/01/19 04/26/20 Lamberto Barker MD [address] [place] [address] PCP - General Internal Medicine 04/27/20 12/27/21 Don Walton PA [address] [place] [address] PCP - General Physician Quarter Backer 12/28/21 08/15/24 Ronnell Escobar NP [address] [place] [address] PCP - General Nurse Practitioner 08/16/24 Savanah Galvez, RN [address] [facility] [address] [place] [address] SHOP Outpatient Launchman 08/22/24 08/25/24 documented as of this encounter
--- OUTSIDE RECORDS SUMMARY | 2024-11-04 00:45 | XMS_ITS | Clinical Summary ---
Author Organization [facility] at the [facility] Office Center Address [address] [place] [address] Care Team Providers Care Public Relations Consultant Name Role Phone Ronnell Escobar NP Primary Care Provider + [phone] Allergies Active Allergy Reactions Criticality Noted Date Comments Ciprofloxacin Hives Medium 06/02/2023 Patient stated he has previously tolerated PO. 06/02/23 had redness and hives after IV dose. Penicillins Rash Medium 05/08/2019 Vvcwckaafjrx-Olztxjlsej-Uic trs Angioedema High 09/17/[address] [...] constipation 60 tablet 07/13/19 22 Active multivit cfkirvkf-khqa-QX-noe cium (THERA-M) 9 mg iron-400 mcg tablet [...] 06/10/2023 Assessment & Plan (06/12/2023 2:18 PM SEAMLESS TUBE DRAWER): Patient reports feeling constipated, gassy and bloated. [...] 06/08/2023 Assessment & Plan (06/09/2023 1:55 PM SEAMLESS TUBE DRAWER): Resolved. Acute pancreatitis, unspecif ied complication status, unspecified pancreatitis type 06/04/2023 Assessment & Plan (06/05/2023 12:45 PM SEAMLESS TUBE DRAWER): Longstanding bouts of pancreatitis originally from EtOH [...] 06/04/2023 Assessment & Plan (06/05/2023 12:48 PM SEAMLESS TUBE DRAWER): Likely from pancreatitis. Also tender to palpation initially so may be a musculoskeletal component from dry heaving. Trops negative. EKG no ischemic changes. He reports hx of MT in the past, unclear circumstances. He had an exercise stress test in spring at an outside facility that he says was normal. Cont ASA. Gram-negative bacteremia 04/11/2023 Assessment & Plan (04/13/2023 7:02 PM SEAMLESS TUBE DRAWER): - due to cholangitis - BCx + for E coli and K. Pneumoniae - repeat BCx drawn 04/11, ngtd - pansensitive organisms - d/c home today with flagyl/cipro Cholangitis 04/10/2023 Assessment & Plan (04/12/2023 6:21 PM SEAMLESS TUBE DRAWER): - Improving - 04/10 ERCP - removal of two migrates stents with biliary obstruction and replaced with 2 new stents in biliary stricture - PRN analgesics and antiemetics Assessment & Plan (04/10/2023 2:40 AM SEAMLESS TUBE DRAWER): -meets [place] criteria for acute cholangitis based [...] less likely MRCP------> GI consult ordered in [facility] -NPO x sips, ice chips -IVFs overnight -PRN analgesics and antiemetics -repeat CBC, BMP, HFP in AM 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 Encounter for removal of biliary stent 3 Acute recurrent pancreatitis 01/26/2022 Post-ERCP acute pancreatitis 01/04/2022 Assessment & Plan (06/13/2023 2:35 PM SEAMLESS TUBE DRAWER): Recently admitted from 06/04-06/05/23 after ERCP on [...] (01/05/2022): Added automatically from request for surgery [id number] Assessment & Plan (04/11/2023 3:57 PM SEAMLESS TUBE DRAWER): - improving -2/2 stent migration and resultant biliary obstruction Assessment & Plan (04/10/2023 2:27 AM SEAMLESS TUBE DRAWER): -2/2 stent migration and resultant biliary obstruction -mgmt as above -repeat HFP in AM 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 Overview (11/30/2021): Added automatically from request for surgery [id number] Encounter for replacement of biliary stent 11/30 Overview (11/30/2021): Added automatically from request for surgery [id number] 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 Pancreatic pseudocyst 07/26/2021 Severe sepsis 07/08/2021 Assessment & Plan (07/13/2021 9:43 AM SEAMLESS TUBE DRAWER): Pt elevated temp on 07/07 overnight 38.1 [...] infection Assessment & Plan (07/12/2021 9:40 AM SEAMLESS TUBE DRAWER): Pt elevated temp on 07/07 overnight 38.1 [...] infection Assessment & Plan (07/11/2021 10:55 AM SEAMLESS TUBE DRAWER): Pt elevated temp on 2 overnight 38.1 [...] bed Assessment & Plan (07/10/2021 9:10 AM SEAMLESS TUBE DRAWER): Pt elevated temp on 2 overnight 38.1 [...] daily Assessment & Plan (07/09/2021 2:23 PM SEAMLESS TUBE DRAWER): Pt elevated temp on 209 overnight 38.1 [...] daily Assessment & Plan (07/08/2021 1:53 PM SEAMLESS TUBE DRAWER): Pt elevated temp overnight 38.1 max, hypotensive [...] 07/07/2021 Assessment & Plan (07/13/2021 9:43 AM SEAMLESS TUBE DRAWER): Dobbhoff placed 07/08, tube feeding to initiated Osmolite 1.5 at 55mL/hr over 24h via NJ tube continuous via pump. Flush with 150mL water q4h. Now at goal of 55cc/hr. Can cycle at home as instructed. Will continue TF until follow up with GI as outpatient Assessment & Plan (07/12/2021 9:39 AM SEAMLESS TUBE DRAWER): Dobbhoff placed /10, tube feeding to initiated Osmolite 1.5 at 55mL/hr over 24h via NJ tube continuous via pump. Flush with 150mL water q4h. Now at goal of 55cc/hr. Can cycle at home as instructed. Will continue TF until follow up with GI as outpatient Assessment & Plan (07/11/2021 10:55 AM SEAMLESS TUBE DRAWER): Dobbhoff placed 07/08, tube feeding to initiated [...] Phos Assessment & Plan (07/10/2021 9:08 AM SEAMLESS TUBE DRAWER): Dobbhoff placed 07/08, tube feeding to initiated [...] Phos Assessment & Plan (07/09/2021 2:25 PM SEAMLESS TUBE DRAWER): Dobbhoff placed 07/08, tube feeding to initiated [...] prn Assessment & Plan (07/08/2021 1:11 PM SEAMLESS TUBE DRAWER): Dobbhoff placed 07/08, tube feeding to initiate TF recommendations: Goal: Osmolite 1.5 at 55mL/hr over 24h via NJ tube continuous via pump. Flush with 150mL water q4h. Initiate TF at 10mL/hr and increase by 10mL q4h until goal rate is reached Chronic pancreatitis, unspecified pancreatitis t ype 07/06/2021 Assessment & Plan (07/13/2021 9:42 AM SEAMLESS TUBE DRAWER): Ongoing acute episode of (developing) chronic pancreatitis. [...] home Assessment & Plan (07/12/2021 9:38 AM SEAMLESS TUBE DRAWER): Ongoing acute episode of (developing) chronic pancreatitis. [...] 07/13 Assessment & Plan (07/11/2021 10:53 AM SEAMLESS TUBE DRAWER): Ongoing acute episode of (developing) chronic pancreatitis. [...] discharge Assessment & Plan (07/10/2021 9:07 AM SEAMLESS TUBE DRAWER): Ongoing acute episode of developing chronic pancreatitis. [...] feedings Assessment & Plan (07/09/2021 2:30 PM SEAMLESS TUBE DRAWER): Ongoing acute episode of chronic pancreatitis. Just [...] CTM Assessment & Plan (07/08/2021 1:49 PM SEAMLESS TUBE DRAWER): Ongoing acute episode of chronic pancreatitis. Just [...] plan Assessment & Plan (07/07/2021 11:22 AM SEAMLESS TUBE DRAWER): Ongoing acute episode of chronic pancreatitis. Just [...] plan Assessment & Plan (07/06/2021 5:30 PM SEAMLESS TUBE DRAWER): Ongoing acute episode of chronic pancreatitis. Just [...] 07/06/2021 Assessment & Plan (07/13/2021 9:42 AM SEAMLESS TUBE DRAWER): Likely ATN related to hypotensive episode. Cr peaked at Cr at 2.31, now back to baseline after aggressive IVF and now tolerating TF. Assessment & Plan (07/12/2021 9:36 AM SEAMLESS TUBE DRAWER): Likely ATN related to hypotensive episode. Cr peaked at Cr at 2.31, now back to baseline after aggressive IVF and now tolerating TF. Assessment & Plan (07/11/2021 10:54 AM SEAMLESS TUBE DRAWER): Likely ATN related to hypotensive episode. Cr peaked at Cr at 2.31, now back to baseline after aggressive IVF, continue to monitor bmp, continue fluids Assessment & Plan (07/10/2021 9:08 AM SEAMLESS TUBE DRAWER): Likely ATN related to hypotensive episode. Cr peaked at Cr at 2.31, now back to baseline after aggressive IVF, continue to monitor bmp, continue fluids Assessment & Plan (07/09/2021 2:29 PM SEAMLESS TUBE DRAWER): Cr at baseline after aggressive IVF, continue to monitor bmp, continue fluids Assessment & Plan (07/08/2021 1:10 PM SEAMLESS TUBE DRAWER): Cr baseline 0.8 now up to 1.3 on arrival due to po intolerance Aggressive IVF will monitor urine output Today net fluid intake 191 Cr trended up to 2.31 continue aggressive fluids Daily bmp Continue IVF Assessment & Plan (07/07/2021 11:19 AM SEAMLESS TUBE DRAWER): Cr baseline 0.8 now up to 1.3 on arrival due to po intolerance Aggressive IVF will monitor urine output Today net fluid intake 191 Cr 1.05 improving with fluids Daily bmp Continue IVF Assessment & Plan (07/06/2021 5:39 PM SEAMLESS TUBE DRAWER): Cr baseline 0.8 now up to 1.3 on arrival due to po intolerance Aggressive IVF will monitor urine output Alcohol dependence 06/25/2021 Assessment & Plan (06/07/2023 5:01 AM SEAMLESS TUBE DRAWER): Last drink on Grisel and he reports [...] program Assessment & Plan (07/13/2021 9:42 AM SEAMLESS TUBE DRAWER): Has a long history of alcohol use [...] Group Assessment & Plan (07/12/2021 9:36 AM SEAMLESS TUBE DRAWER): Has a long history of alcohol use [...] Group Assessment & Plan (07/11/2021 10:54 AM SEAMLESS TUBE DRAWER): Has a long history of alcohol use [...] Group Assessment & Plan (07/10/2021 9:05 AM SEAMLESS TUBE DRAWER): Has a long history of alcohol use [...] Group Assessment & Plan (07/09/2021 2:33 PM SEAMLESS TUBE DRAWER): Has a long history of alcohol use [...] Group Assessment & Plan (07/08/2021 1:06 PM SEAMLESS TUBE DRAWER): Has a long history of alcohol use with dependence. He states he has not had a drink since before his ERCP 06/22/2021 and has been on Vivitrol injections. His ethanol level on arrival to the ED is negative Plan to continue EtOH cessation and support with outpatient naltrexone therapy. Assessment & Plan (07/07/2021 11:13 AM SEAMLESS TUBE DRAWER): Has a long history of alcohol use with dependence. He states he has not had a drink since before his ERCP 06/22/2021 and has been on Vivitrol injections. His ethanol level on arrival to the ED is negative Plan to continue EtOH cessation and support with outpatient naltrexone therapy. Assessment & Plan (07/06/2021 5:22 PM SEAMLESS TUBE DRAWER): Has a long history of alcohol use with dependence. He states he has not had a drink since before his ERCP 06/22/2021 and has been on Vivitrol injections. His ethanol level on arrival to the ED is negative Plan to continue EtOH cessation and support with outpatient naltrexone therapy Assessment & Plan (06/28/2021 11:39 AM SEAMLESS TUBE DRAWER): Long standing hx of alcohol dependence with [...] needed Assessment & Plan (06/27/2021 11:47 AM SEAMLESS TUBE DRAWER): Long standing hx of alcohol dependence with [...] needed Assessment & Plan (06/26/2021 11:59 AM SEAMLESS TUBE DRAWER): Long standing hx of alcohol dependence with hx of short term remission. Last drink was 06/17. States he usually drinks hard liquor shot. Denies hx of seizure or delirium. On vivitrol but did not receive this month's shot due to being on analgesic for post ERCP pain control. -thiamine -folate -MVI -ciwa protocol - Ativan Hypertension 06/25/2021 Assessment & Plan (06/07/2023 5:06 AM SEAMLESS TUBE DRAWER): Markedly hypertensive on ED arrival in the setting of pain -Continue home Amlodipine 10 mg qday and losartan 25 mg qday Assessment & Plan (06/05/2023 12:47 PM SEAMLESS TUBE DRAWER): Hypertensive initially from pain. Improved today. Cont home meds. Assessment & Plan (04/12/2023 6:21 PM SEAMLESS TUBE DRAWER): -continue norvasc Assessment & Plan (04/10/2023 2:31 AM SEAMLESS TUBE DRAWER): -resume norvasc in AM Assessment & Plan (01/11/2022 11:23 AM CDT): Continue norvasc Assessment & Plan (01/10/2022 11:40 AM CDT): Continue norvasc Assessment & Plan (07/13/2021 9:43 AM SEAMLESS TUBE DRAWER): Continue to hold home lisinopril on account of recent hypotension/JOSE. With low normotensive BP will discontinue lisinopril. Follow up with PCP in 2-4 weeks to re evaluate restarting if needed Assessment & Plan (07/12/2021 9:38 AM SEAMLESS TUBE DRAWER): Continue to hold home lisinopril on account of recent hypotension/JOSE. BP normal, may not require lisinopril on discharge. Assessment & Plan (07/11/2021 10:54 AM SEAMLESS TUBE DRAWER): Continue to hold home lisinopril on account of recent hypotension/JOSE. BP normal, may not require lisinopril on discharge. Assessment & Plan (07/10/2021 9:06 AM SEAMLESS TUBE DRAWER): Continue to hold home lisinopril on account of recent hypotension Assessment & Plan (07/09/2021 2:32 PM SEAMLESS TUBE DRAWER): Continue to hold home lisinopril until more stable BP Assessment & Plan (07/08/2021 1:06 PM SEAMLESS TUBE DRAWER): BP hypotensive overnight hold antihypertensives at this time. Assessment & Plan (07/07/2021 11:15 AM SEAMLESS TUBE DRAWER): BP on remain normotensive Continue lisinopril and pain control Assessment & Plan (07/06/2021 5:30 PM SEAMLESS TUBE DRAWER): BP on arrival normotensive Continue lisinopril and pain control Assessment & Plan (06/28/2021 11:39 AM SEAMLESS TUBE DRAWER): Continue home lisinopril 40 mg -Monitor BP -BP stable Assessment & Plan (06/27/2021 11:48 AM SEAMLESS TUBE DRAWER): Continue home lisinopril 40 mg -Monitor BP/Cr -BP stable Assessment & Plan (06/25/2021 4:55 PM SEAMLESS TUBE DRAWER): Continue home lisinopril 40 mg -Monitor BP/Cr -Daily BMP Tobacco abuse 06/25/2021 Major depressive disorder 06/25/2021 Assessment & Plan (06/07/2023 5:07 AM SEAMLESS TUBE DRAWER): Continue home duloxetine 30 mg BID and trazodone 50 mg qhs Assessment & Plan (06/04/2023 11:58 AM SEAMLESS TUBE DRAWER): Cont home meds Assessment & Plan (01/11/2022 11:23 AM CDT): Continue duloxetine scheduled and trazodone prn Assessment & Plan (01/10/2022 11:40 AM CDT): Continue duloxetine scheduled and trazodone prn Assessment & Plan (07/13/2021 9:43 AM SEAMLESS TUBE DRAWER): Most certainly contributing to his long standing alcohol use. Continue home meds duloxetine and trazodone Assessment & Plan (07/12/2021 9:38 AM SEAMLESS TUBE DRAWER): Most certainly contributing to his long standing alcohol use. Continue home meds duloxetine and trazodone Assessment & Plan (07/11/2021 10:54 AM SEAMLESS TUBE DRAWER): Most certainly contributing to his long standing alcohol use. Continue home meds duloxetine and trazodone Assessment & Plan (07/10/2021 9:06 AM SEAMLESS TUBE DRAWER): Most certainly contributing to his long standing alcohol use. Continue home meds duloxetine and trazodone Assessment & Plan (07/09/2021 2:30 PM SEAMLESS TUBE DRAWER): Most certainly contributing to his long standing alcohol use now with cessation Continue home meds duloxetine and trazodone Assessment & Plan (07/08/2021 1:09 PM SEAMLESS TUBE DRAWER): Most certainly contributing to his long standing alcohol use now with cessation Continue home meds duloxetine and trazodone Assessment & Plan (07/07/2021 11:16 AM SEAMLESS TUBE DRAWER): Most certainly contributing to his long standing alcohol use now with cessation Continue home meds duloxetine and trazodone Assessment & Plan (07/06/2021 5:32 PM SEAMLESS TUBE DRAWER): Most certainly contributing to his long standing alcohol use now with cessation Continue home meds duloxetine and trazodone Assessment & Plan (06/28/2021 11:39 AM SEAMLESS TUBE DRAWER): Continue home Trazodone 50 mg, Cymbalta 30 mg Resume Biofeedback at discharge Assessment & Plan (06/27/2021 11:48 AM SEAMLESS TUBE DRAWER): Continue home Trazodone 50 mg, Cymbalta 30 mg Resume Biofeedback at discharge Assessment & Plan (06/25/2021 4:57 PM SEAMLESS TUBE DRAWER): Continue home Trazodone 50 mg, Cymbalta 30 mg Resume Biofeedback at discharge Pancreatic duct obstruction 06/11/2021 Overview (06/11/2021): Added automatically from request for surgery [id number] Abdominal pain 06/11/2021 Overview (06/11/2021): Added automatically from request for surgery [id number] Necrotizing pancreatitis 10/21/2019 Therapeutic opioid induced constipation 10/21/19 Assessment & Plan (07/13/2021 9:44 AM SEAMLESS TUBE DRAWER): Continue bowel regimen Assessment & Plan (07/12/2021 9:41 AM SEAMLESS TUBE DRAWER): Bowel regimen ordered without BM. Will titrate bowel regimen Assessment & Plan (07/11/2021 10:58 AM SEAMLESS TUBE DRAWER): Bowel regimen ordered Assessment & Plan (06/28/2021 11:39 AM SEAMLESS TUBE DRAWER): Pt states no BM for the past week. Likely due to decrease intake and vomiting, possible contribution from opioids -daily bowel regimen, had BM Monday Assessment & Plan (06/27/2021 11:48 AM SEAMLESS TUBE DRAWER): Pt states no BM for the past week. Likely due to decrease intake and vomiting, possible contribution from opioids -daily bowel regimen Assessment & Plan (06/26/2021 12:00 PM SEAMLESS TUBE DRAWER): Pt states no BM for the past week. Likely due to decrease intake and vomiting, possibly contribution from opioids -daily bowel regimen -clear liquid diet Acute pancreatitis 05/08/2019 Assessment & Plan (06/28/2021 11:38 AM SEAMLESS TUBE DRAWER): Hx of chronic pancreatis starting 3 years [...] prioritized. Assessment & Plan (06/27/2021 11:46 AM SEAMLESS TUBE DRAWER): Hx of chronic pancreatis starting 3 years [...] prioritized. Assessment & Plan (06/26/2021 11:59 AM SEAMLESS TUBE DRAWER): Hx of chronic pancreatis starting 3 years [...] 04/11/2023 Assessment & Plan (04/10/2023 2:38 AM SEAMLESS TUBE DRAWER): -migrated stent likely etiology of presenting symptoms and lab, CT findings -will likely need ERCP for stent exchange on Monday Metabolic acidosis, increased anion gap (IAG) 06/25/19 22 07/09/2021 Assessment & Plan (07/09/2021 2:31 PM SEAMLESS TUBE DRAWER): Dobbhoff placed 07/08, to start tube feeding TF recommendations: Goal: Osmolite 1.5 at 55mL/hr over 24h via [place] tube continuous via pump. Flush with 150mL water q4h. Initiate TF at 10mL/hr and increase by 10mL q4h until goal rate is reached Assessment & Plan (07/08/2021 1:49 PM SEAMLESS TUBE DRAWER): Due to starvation in the setting of [...] reached Assessment & Plan (07/07/2021 11:16 AM SEAMLESS TUBE DRAWER): Due to starvation in the setting of intolerance to PO for the last 3-4 days. Will provide aggressive IVF Continue to discuss enteral feedings with the patient going forward, currently pt is refusing, GI will readdress with pt today with goal for placement today should pt agree. Change IVF to D5LR Assessment & Plan (07/06/2021 5:38 PM SEAMLESS TUBE DRAWER): Due to starvation in the setting of intolerance to PO for the last 3-4 days. Will provide aggressive IVF Continue to discuss enteral feedings with the patient going forward Assessment & Plan (06/28/2021 11:39 AM SEAMLESS TUBE DRAWER): Likely dehydration from pancreatitis, n/v and poor intake. Heme concentrated hgb 14.9 (baseline 8-9), wbc 14.4 no source of infection likely heme concentrated, anion gap 20, UA ketone +1. Resolved with IVF Assessment & Plan (06/27/2021 11:47 AM SEAMLESS TUBE DRAWER): Likely dehydration from pancreatitis, n/v and poor intake. Heme concentrated hgb 14.9 (baseline 8-9), wbc 14.4 no source of infection likely heme concentrated, anion gap 20, UA ketone +1. Resolved with IVF Assessment & Plan (06/26/2021 12:00 PM SEAMLESS TUBE DRAWER): Likely dehydration from pancreatitis, n/v and poor intake. Heme concentrated hgb 14.9 (baseline 8-9), wbc 14.4 no source of infection likely heme concentrated, anion gap 20, UA ketone +1 -IVF -Clear liquid diet -Daily bmp Encounters Date Type Department Care Team Description 10/31/2024 Documentation [facility] Case Management [address] [address] Izabella Pérez 10/15/2024 Telephone [facility] [address] [place] [address] [place] [address] Samson Esteban 09/30/2024 Telephone [facility]astro[facility] [address] [place] [address] [place] [address] Samson Esteban Scheduling Appointments 09/13/2024 2:28 PM CDT - 09/19/2024 12:27 PM CDT Hospital Encounter [address] [address] Melyssa Pastor MD Potluri, Sobhana Krishna, MD Alcohol withdrawal syndrome without complication (HCC) (Primary Dx); Acute on chronic pancreatitis (HCC) Discharge Disposition: Discharge to an Rehab facility 08/28/2024 Telephone [facility] [address] [place] [address] [place] [id number] Samson Esteban imaging due 08/28/2024 Orders Only [facility] [address] [place] [address] [place] [id number] Kenneth Loya MD Necrotizing pancreatitis (Primary Dx) 08/26/2024 SHOP/CHAP Initial Outreach MERGED WITH [facility]NAG[facility] [address] [place] [address] Savanah Galvez RN 08/23/2024 SHOP/CHAP Initial Outreach MERGED WITH [facility]NAG[facility] [address] [place] [address] Savanah Galvez RN 08/23/2024 Documentation [facility] [facility] [address] [place] [phone] Sadaf Yates RN GI f/u recs 08/22/2024 SHOP/CHAP Initial Outreach MERGED WITH [facility] [address] [place] [id number] Savanah Galvez RN 08/22/2024 SHOP/CHAP Initial Eligibility Review MERGED WITH [facility]NAG[facility] [address] [place] [address] Savanah Galvez RN 08/15/2024 9:03 PM CDT - 08/21/2024 4:12 PM CDT Hospital Encounter [facility] [address] [place] [address] John De Anda MD Thoelke, Mark S [...] drink = 0.6 oz pur e alcohol) [facility] Utilities Answer Date Recorded In the past 12 months has e [employer] gas, oil, or water [employer] threatened to shut off services in your [...] often do you attend chur ch or religion services? 1 to 4 times per year [...] housing, medical care, and heating? Hard 09/16/2024 [facility] - [facility] [...] slept in a residential (including now)? No 09/21/2023 Housing Stability Vital Sign Answer Dangelo e Recorded In the last 12 months, was t here a time when you were not able to pay the mortgage or rent on time? No 09/16/2024 In the past 12 months, how m any times have you moved where you were living? 1 09/16/2024 At any time in the past [address] [facility], were you homeless or living in a residential (including now)? Yes 09/16/2024 Personal Safety Answer Date Recorded Have you ever been in or are you currently in a harmful physical or emotional relationship or is someone making you feel afraid or unsafe? Denies 09/13/2024 Sex and Gender Information Value Date Recorded Sex Assigned at Not on file Legal Sex Male 1:58 AM SEAMLESS TUBE DRAWER Gender Identity Not on file Sexual Orientation [...] this topic Medical Devices Implanted Type Area Production Gear Cutter Device Identifier Shelf Expiration Date Model / Serial / Lot [employer] 8.5 Fr Nasal Biliary Catheter [id number] - [id number] Implanted:Qty: 1 on 01/26/2022 by Kenneth Loya MD at [facility] Catheter [employer] 06/22/2024 [id number] / / [id number] [employer] 10fr 5cm Biliary Double Pigtail Stent [id number] - [id number] Implanted:Qty: 1 on 09/21/2023 by Kenneth Loya MD at [facility] Stent N/A: Bile Duct [employer] 08/14/2025 [id number] / / [id number] [employer] 10fr 5cm Biliary Stent [id number] - [id number] Implanted:Qty: 1 on 09/21/2023 by Kenneth Loya MD at [facility] Stent N/A: Bile Duct [employer] 07/03/2025 [id number] / / [id number] [employer] 10fr 5cm Biliary Double Pigtail Stent [id number] - [id number] Implanted:Qty: 1 on 09/21/2023 by Kenneth Loya MD at [facility] Stent N/A: Bile Duct [employer] 08/23/2025 [id number] / / [id number] [employer] 10fr 5cm Biliary Double Pigtail Stent [id number] - [id number] Implanted:Qty: 1 on 09/21/2023 by Kenneth Loya MD at [facility] Stent N/A: Bile Duct [employer] 08/23/2025 [id number] / / [id number] [employer] 10fr 5cm Biliary Double Pigtail Stent [id number] - [id number] Implanted:Qty: 1 on 09/21/2023 by Kenneth Loya MD at [facility] Stent N/A: Bile Duct [employer] 08/14/2025 [id number] / / [id number] [employer] 10fr 7cm Biliary Stent [id number] - [id number] Implanted:Qty: 1 on 04/10/2023 by John De Anda MD at [facility] [employer] [id number] 12/13/2024 [id number] / / [id number] [employer] 10fr 7cm Biliary Stent [id number] - [id number] Implanted:Qty: 1 on 04/10/2023 by John De Anda MD at [facility] [employer] [id number] 02/07/2025 [id number] / / [id number] Explanted Type Area Production Gear Cutter Device Identifier Shelf Expiration Date Model / Serial / Lot [employer] [id number] Cotton-Young 10fr 7cm Taper Tip Guidewire Proximal Distal Flap - [id number] Implanted:Qty: 1 on 08/04/2021 by Kenneth Loya MD at [facility] Explanted:Qty: 1 on 08/30/2021 at [facility] Stent N/A: Bile Duct [employer] 01/28/2024 [id number] / / [id number] Axios 10 X 10 Stent Delivery System [id number] - [id number] Implanted:Qty: 1 on 08/04/2021 by Kenneth Loya MD at [facility] Explanted:Qty: 1 on 08/30/2021 at [facility] Stent N/A: Bile Duct [employer] Kemal 10/13/2022 [id number] / / [id number] [employer] Geenen 7fr 7cm Positioning Sleeve Push Catheter Guidewire [id number] - [id number] Implanted:Qty: 1 on 08/30/2021 at [facility] Explanted:Qty: 1 on 11/01/2021 by Kenneth Loya MD at [facility] Stent N/A: Pancreas [employer] 11/06/2023 [id number] / / [id number] [employer] Kemal 10fr 5cm Biliary Stent [id number] - [id number] Implanted:Qty: 1 on 01/26/2022 by Kenneth Loya MD at [facility] Explanted:Qty: 1 on 04/06/2022 by Kenneth Loya MD at [facility] Stent [employer] 11/16/2023 [id number] / / [id number] [employer] Advanix Naviflex 7fr 9cm Radiopaque [place] Endo Marker Color Coded [id number] - [id number] Implanted:Qty: 1 on 01/26/2022 by Kenneth Loya MD at [facility] Explanted:Qty: 1 on 04/06/2022 at [facility] Stent [employer] 04/16/2023 [id number] / / [id number] [employer] Advanix 8.5fr 7cm Rapid Exchange Temporary [place] Stent [id number] - [id number] Implanted:Qty: 1 on 04/06/2022 by Kenneth Loya MD at [facility] Explanted:Qty: 1 on 07/06/2022 by Kenneth Loya MD at [facility] Stent N/A: Pancreas [employer] 10/26/2023 [id number] / / [id number] [employer] Advanix 8.5fr 7cm Rapid Exchange Temporary [place] Stent [id number] - [id number] Implanted:Qty: 1 on 04/06/2022 by Kenneth Loya MD at [facility] Explanted:Qty: 1 on 07/06/2022 by Kennteh Loya MD at [facility] Stent N/A: Pancreas [employer] Kem[employer] 10/26/2023 [id number] / / [id number] [employer] 10fr 5cm Biliary Stent [id number] - [id number] Implanted:Qty: 1 on 09/08/2022 by Kenneth Loya MD at [facility] Explanted:Qty: 1 on 11/03/2022 by Kenneth Loya MD at [facility] Stent N/A: Bile Duct [employer] 08/07/2024 [id number] / / [id number] [employer] 10fr 5cm Biliary Stent [id number] - [id number] Implanted:Qty: 1 on 09/08/2022 by Kenneth Loya MD at [facility] Explanted:Qty: 1 on 11/03/2022 by Kenneth Loya MD at [facility] Stent N/A: Bile Duct [employer] 05/04/2024 [id number] / / [id number] [employer] Cartwright Flexi-Stent 7fr 7cm Small Pigtail Flexible .035in Stent 6574 - [id number] Implanted:Qty: 1 on 09/08/2022 by Kenneth Loya MD at [facility] Explanted:Qty: 1 on 11/03/2022 by Kenneth Loya MD at [facility] Stent N/A: Bile Duct [employer] 05/28/2027 [id number] / / [id number] [employer] Geenen 8.5fr 9cm Drain Obstructed Positioning Sleeve Pushing [id number] - [id number] Implanted:Qty: 1 on 04/06/2022 by Kenneth Loya MD at [facility] Explanted:Qty: 1 on 01/05/2023 by Kenneth Loya MD at [facility] Stent N/A: Pancreas [employer] 05/03/2024 [id number] / / [id number] [employer] [facility] Cartwright Flexi-Stent 7fr 7cm Small Pigtail Flexible .035in Stent 6574 - [id number] Implanted:Qty: 1 on 11/03/2022 by Kenneth Loya MD at [facility] Explanted:Qty: 1 on 01/05/2023 by Kenneth Loya MD at [facility] Stent N/A: Pancreas [employer] 05/28/2027 [id number] / / [id number] [employer] Kemal 10fr 5cm Biliary Stent [id number] - [id number] Implanted:Qty: 1 on 11/03/2022 by Kenneth Loya MD at [facility] Explanted:Qty: 1 on 01/05/2023 at [facility] Stent N/A: Bile Duct [employer] 08/15/2024 [id number] / / [id number] [employer] Cotton-Young 10fr 5cm Taper Tip Soft Proximal Distal Flap Gentle [id number] - [id number] Implanted:Qty: 1 on 11/03/2022 by Kenneth Loya MD at [facility] Explanted:Qty: 1 on 01/05/2023 by Kenneth Loya MD at [facility] Stent N/A: Bile Duct [employer] 08/10/2025 [id number] / / [id number] [employer] Cartwright Flexi-Stent 4fr 7cm Small Pigtail Flexible .025in Stent 6544 - [id number] Implanted:Qty: 1 on 01/05/2023 by Kenneth Loya MD at [facility] Explanted:Qty: 1 on 06/02/2023 at [facility] Stent N/A: Pancreas [employer] 07/27/2027 [id number] / / [id number] Description:Not present on t his procedure [employer] Kemal 10fr 7cm Biliary Stent [id number] - [id number] Implanted:Qty: 1 on 01/05/2023 by Kenneth Loya MD at [facility] Explanted:Qty: 1 on 06/02/2023 by Jero Soto MD at [facility] Stent N/A: Bile Duct [employer] 12/13/2024 [id number] / / [id number] [employer] 10fr 7cm Biliary Stent [id number] - [id number] Implanted:Qty: 1 on 01/05/2023 by Kenneth Loya MD at [facility] Explanted:Qty: 1 on 06/02/2023 by Jero Soto MD at [facility] Stent N/A: Bile Duct [employer] 12/13/2024 [id number] / / [id number] [employer] 10fr 5cm Biliary Double Pigtail Stent [id number] - [id number] Implanted:Qty: 1 on 06/02/2023 by Kenneth Loya MD at [facility] Explanted:Qty: 1 on 09/21/2023 by Kenneth Loya MD at [facility] Stent N/A: Bile Duct [employer] 04/30/2025 [id number] / / [id number] [employer] 10fr 5cm Biliary Double Pigtail Stent [id number] - [id number] Implanted:Qty: 1 on 06/02/2023 by Kenneth Loya MD at [facility] Explanted:Qty: 1 on 09/21/2023 by Kenneth Loya MD at [facility] Stent N/A: Bile Duct [employer] 04/30/2025 [id number] / / [id number] [employer] 10fr 5cm Biliary Stent [id number] - [id number] Implanted:Qty: 1 on 06/02/2023 by Kenneth Loya MD at [facility] Explanted:Qty: 1 on 09/21/2023 by Kenneth Loya MD at [facility] Stent N/A: Bile Duct [employer] 02/28/2025 [id number] / / [id number] [employer] 10fr 5cm Biliary Double Pigtail Stent [id number] - [id number] Implanted:Qty: 1 on 06/02/2023 by Kenneth Loya MD at [facility] Explanted:Qty: 1 on 09/21/2023 by Kenneth Loya MD at [facility] Stent N/A: Bile Duct [employer] 04/30/2025 [id number] / / [id number] [employer] [id number] Advanix 10fr 5cm Rapid Exchange Temporary [place] Stent - [id number] Implanted:Qty: 1 on 06/18/2021 by Kenneth Loya MD at [facility] Explanted:Qty: 1 on 08/30/2021 at [facility] [employer] 06/30/2022 [id number] / / [id number] Description:Removed prior [employer] Advanix Od10 Fr L7 Cm 1; Temporary Duodenal Bend Stent Biliary Pl [id number] - [id number] Implanted:Qty: 1 on 08/30/2021 at [facility] Explanted:Qty: 1 on 11/01/2021 by Kenneth Loya MD at [facility] N/A: Bile Duct [employer] 06/25/2022 [id number] / / [id number] [employer] Advanix Naviflex 10fr 9cm Lead Joana Radiopaque Flexible [id number] - [id number] Implanted:Qty: 1 on 11/01/2021 by Kenneth Loya MD at [facility] Explanted:Qty: 1 on 01/05/2022 by Contreras Girard MD at [facility] N/A: Pancreas [employer] 07/18/2022 [id number] / / [id number] 10fr 5cm Biliary Stent [id number] - [id number] Implanted:Qty: 1 on 11/01/2021 by Kenneth oLya MD at [facility] Explanted:Qty: 1 on 01/05/2022 at [facility] N/A: Bile Duct [employer] 08/12/2023 [id number] / / [id number] 10fr 7cm Biliary Stent [id number] - [id number] Implanted:Qty: 1 on 11/01/2021 by Kenneth Loya MD at [facility] Explanted:Qty: 1 on 01/05/2022 by Contreras Griard MD at [facility] N/A: Bile Duct [employer] 08/23/2023 [id number] / / [id number] [employer] Cotton-Young 10fr 5cm Taper Tip Soft Proximal Distal Flap Gentle [id number] - [id number] Implanted:Qty: 1 on 01/05/2022 by Contreras Girard MD at [facility] Explanted:Qty: 1 on 01/26/2022 at [facility] N/A: Bile Duct [employer] 05/07/2022 [id number] / / [id number] [employer] Advanix 7fr 7cm Lead Joana Radiopaque [place] Endo Marker Drainage [id number] - [id number] Implanted:Qty: 1 on 07/06/2022 by Kenneth Loya MD at [facility] Explanted:Qty: 1 on 09/08/2022 by Kenneth Loya MD at [facility] N/A: Pancreas [employer] 05/03/2023 [id number] / / [id number] [employer] 10fr 5cm Biliary Stent [id number] - [id number] Implanted:Qty: 1 on 07/06/2022 by Kenneth Loya MD at [facility] Explanted:Qty: 1 on 09/08/2022 by Kenneth Loya MD at [facility] N/A: Bile Duct [employer] 12/24/2022 [id number] / / [id number] [employer] 10fr 5cm Biliary Stent [id number] - [id number] Implanted:Qty: 1 on 07/06/2022 by Kenneth Loya MD at [facility] Explanted:Qty: 1 on 09/08/2022 by Kenneth Loya MD at [facility] N/A: Bile Duct [employer] 11/16/2023 [id number] / / [id number] [employer] 10fr 7cm Biliary Stent [id number] - [id number] Explanted:Qty: 1 on 04/10/2023 by John De Anda MD at [facility] [employer] [id number] 12/13/2024 [id number] / / [id number] Description:Unable to place despite multiple attempts Procedures [...] * eGFR (09/14/2024 7:03 AM CDT) Pathologist [facility] eGFR >90 >=60 mL/min/1. 73 m2 Comment: [...] MD LAB BLOOD ORDERABLES Final Result [facility] [address] [facility] Department [place] [address] * Differential, auto (09/14/2024 7:03 AM CDT) Pathologist [facility] Neutrophil abs 2.37 1.50 - 6.50 K/cumm Imm gran abs 0.01 0.00 - 0.10 K/cumm [facility] Lymphocyte abs 1.29 0.80 - 3.30 K/cumm [facility] Monocyte abs 0.44 0.20 - 0.80 K/cumm [facility] Eosinophil abs 0.23 0.00 - 0.50 K/cumm [facility] Basophil abs 0.03 0.00 - 0.10 K/cumm [facility] Neutrophil pct 54.2 % [facility] Comment: Interpretive Data Percent cell count reference ranges are not reported, since discordance with absolute values may lead to misinterpretation of CBC data. Current Interpretive Data was last revised on 2017. Imm gran pct 0.2 % [facility] Comment: Interpretive Data Percent cell count reference ranges are not reported, since discordance with absolute values may lead to misinterpretation of CBC data. Current Interpretive Data was last revised on 2017. Lymphocyte pct 29.5 % [facility] Comment: Interpretive Data Percent cell count reference ranges are not reported, since discordance with absolute values may lead to misinterpretation of CBC data. Current Interpretive Data was last revised on 2017. Monocyte pct 10.1 % [facility] Comment: Interpretive Data Percent cell count reference ranges are not reported, since discordance with absolute values may lead to misinterpretation of CBC data. Current Interpretive Data was last revised on 2017. Eosinophil pct 5.3 % [facility] Comment: Interpretive Data Percent cell count reference ranges are not reported, since discordance with absolute values may lead to misinterpretation of CBC data. Current Interpretive Data was last revised on 2017. Basophil pct 0.7 % [facility] Comment: Interpretive Data Percent cell count reference ranges are not reported, since discordance with absolute values may lead to misinterpretation of CBC data. Current Interpretive Data was last revised on 2017. Blood 09/14/2024 7:03 AM CDT 09/14/2024 7:07 AM CDT Melyssa Anderson MD LAB BLOOD ORDERABLES Final Result [facility] [address] [facility] Department [place] [address] * (ABNORMAL) CBC with auto differential (09/14/2024 7:03 AM CDT) WBC 4.37 3.80 - 9.90 K/cumm Hgb 10.8(L) 13.0 - 17.5 g/dL [facility] Hct 33.6(L) 38.9 - 50.3 % [facility] Plt 208 150 - 400 K/cumm [facility] MPV 8.9(L) 9.1 - 12.3 fL [facility] RBC 3.66(L) 4.30 - 5.80 M/cumm [facility] MCV 91.8 81.3 - 96.4 fL [facility] MCH 29.5 27.1 - 33.3 pg [facility] MCHC 32.1(L) 32.3 - 35.7 g/dL [facility] RDW CV 17.2(H) 11.1 - 14.9 % [facility] RDW SD 58.0(H) 35.7 - 48.1 fL [facility] NRBC abs 0.00 0.00 - 0.01 K/cumm [facility] Blood 09/14/2024 7:03 AM CDT 09/14/2024 7:07 AM CDT us Melyssa Anderson MD LAB BLOOD ORDERABLES Final Result Performing Organization Address City/State/[facility] Co de Phone Number [facility] [address] [facility] Department [place] [address] * (ABNORMAL) Comprehensive metabolic panel (09/14/2024 7:03 AM CDT) Sodium 138 135 - 145 mmol/L Potassium, pl 3.3 3.3 - 4.9 mmol/L [facility] Chloride 107 97 - 110 mmol/L [facility] CO2 21(L) 22 - 32 mmol/L [facility] Anion gap 10 2 - 15 mmol/L [facility] BUN 7 6 - 25 mg/dL [facility] Creatinine 0.64(L) 0.80 - 1.30 mg/dL [facility] Glucose 99 70 - 199 mg/dL [facility] Comment: Interpretive Data Fasting glucose >/= [...] Calcium 9.1 8.5 - 10.3 mg/dL [facility] Bilirubin, total 0.4 0.1 - 1.2 mg/dL [facility] Protein, pl 6.3(L) 6.5 - 8.5 g/dL [facility] Albumin 3.7 3.5 - 5.0 g/dL [facility] Alk phos 71 40 - 130 Units/L [facility] ALT 15 7 - 55 Units/L [facility] AST 18 10 - 50 Units/L [facility] Blood 09/14/2024 7:03 AM CDT 09/14/2024 7:07 AM CDT us Nilupa Jono Anderson MD LAB BLOOD ORDERABLES Final Result Performing Organization Address City/State/[facility] Co de Phone Number [facility] [address] [facility] Department [place] [address] * CT Abdomen Pelvis W Contrast (09/13/2024 [...] Ale Morocho M.D. TW T: Report ID: [id number] Reading Location: [id number] Procedure Note Ale Morocho MD - 09/13/2024 [...] Ale Morocho M.D. TW T: Report ID: [id number] Reading Location: [place] [address] PROCEDURES Maisha l [...] tendency for uric acid stone formation. Source: [facility] Current Interpretive Data was last revised on 2017 Protein, ur ql Negative Negative [facility] Glucose, ur ql Negative Negative [facility] Ketones, ur Trace Negative [facility] Bilirubin, ur Negative Negative [facility] Blood, ur Negative Negative [facility] Urobilinogen, ur 2.0(A) <2.0 mg/dL [facility] Nitrite, ur Negative Negative [facility] Leukocyte esterase, ur Negative Negative [facility] UA reflex comment Reflex conditions for microscopic UA and culture not met. [facility] Urine 09/13/2024 1:26 PM CDT 09/13/2024 1:30 PM CDT Melyssa jimenez MD LAB MICROBIOLOGY - GENERAL ORDERABLES Final Result [facility] [address] [facility] Department [place] [address] * (ABNORMAL) Drugs of Abuse Screen, Urine without Confirmation (09/13/2024 1:26 PM CDT) Pathologist [facility] Amphetamine, ur Not Detected CutOff 500ng/mL Comment: Interpretive Data - Amphetamines: Samples containing greater than 500 ng/mL d-methamphetamine or other cross-reacting amphetamine compounds are reported as positive. Amphetamine immunoassays are subject to significant false positive rates due to cross-reactivity of non-amphetamine drugs. Confirmatory testing required for definitive results. Current Interpretive Data was last reviewed 2022. Barbiturates, ur Not Detected CutOff 200ng/mL [facility] Comment: Interpretive Data - Barbiturates: Samples containing greater than 200 ng/mL secobarbital or other cross-reacting barbiturate compounds are reported as positive. False positive and false negative results are possible. Confirmatory testing required for definitive results. Current Interpretive Data was last reviewed 2022. Benzodiazepines, ur Screen Positive, presumptive (A) CutOff 100ng/mL [facility] Comment: Interpretive Data - Benzodiazepines: Samples containing greater than 100 ng/mL nordiazepam or other cross-reacting compounds are reported as positive. False positive and false negative results are possible. Confirmatory testing required for definitive results. Current Interpretive Data was last reviewed 2022. Cannabinoids, ur Screen Positive, presumptive (A) CutOff 50 ng/mL [facility] Comment: Interpretive Data - Cannabinoids: Samples containing greater than 50 ng/mL delta-9 THC -COOH or other cross- reacting compounds are reported as positive. False positive and false negative results are possible. Confirmatory testing required for definitive results. Current Interpretive Data was last reviewed 2022. Cocaine, ur Not Detected CutOff 150ng/mL [facility] Comment: Interpretive Data - Cocaine: Samples containing greater than 150 ng/mL benzoylecgonine or other cross- reacting compounds are reported as positive. False positive and false negative results are possible. Confirmatory testing required for definitive results. Current Interpretive Data was last reviewed 2022. Fentanyl, Ur Not Detected CutOff 5 ng/mL [facility] Comment: Interpretive Data - Fentanyl: Samples containing greater than 5 ng/mL norfentanyl, fentanyl, or other cross-reacting fentanyl compounds are reported as positive. False positive and false negative results are possible. Confirmatory testing required for definitive results. Current Interpretive Data was last reviewed 2023. Methadone, ur Not Detected CutOff 300ng/mL [facility] Comment: Interpretive Data - Methadone: Samples containing greater than 300 ng/mL d,l-methadone or other cross-reacting compounds are reported as positive. False positive and false negative results are possible. Confirmatory testing required for definitive results. Current Interpretive Data was last reviewed 2022. Opiates, ur Not Detected CutOff 300ng/mL [facility] Comment: Interpretive Data - Opiates: Samples containing greater than 300 ng/mL morphine or other cross-reacting compounds are reported as positive. False positive and false negative results are possible. Confirmatory testing required for definitive results. Current Interpretive Data was last reviewed 2022. Oxycodone, ur Not Detected CutOff 100ng/mL [facility] Comment: Interpretive Data - Oxycodone: Samples [...] MD LAB URINE ORDERABLES Final Result [facility] [address] [facility] Department [place] [address] * COVID-19 Coronavirus RNA Nasopharyngeal (09/13/2024 1:24 PM CDT) COVID-19 RNA Negative Negative Nasopharyngeal 09/13/2024 1: 24 PM CDT 09/13/2024 1:29 PM CDT Narrative [facility] - 09/13/2024 2:05 PM CDT Is the patient experiencing any symptoms consistent with COVID (eg. Fever, cough, shortness of breath)?->No What is the reason for testing?->Screening for semi-private room placement Interpretive data Testing performed by [facility]. This test is performed using the [employer] Xpert Xpress CoV-2 plus assay. This is a real-time RT-PCR test intended for the qualitative detection of nucleic acid from the SARS-CoV-2. This assay has been cleared by the [place] Food and Drug administration. The performance characteristics have been verified by the [facility]. Results must be considered in the clinical context, and a negative result does not rule out infection. Interpretive data last revised 2023. Interpretive data Testing performed by [facility]. This test is performed using the [employer] Xpert Xpress CoV-2 plus assay. This is a real-time RT-PCR test intended for the qualitative detection of nucleic acid from the SARS-CoV-2. This assay has been cleared by the [place] Food and Drug administration. The performance characteristics have been verified by the [facility]. Results must be considered in the clinical context, and a negative result does not rule out infection. Interpretive data last revised 2023. Melyssa jimenez MD LAB MICROBIOLOGY - GENERAL ORDERABLES Final Result [facility] [address] [facility] Department [place] [address] * eGFR (09/13/2024 1:24 PM CDT) eGFR [...] MD LAB BLOOD ORDERABLES Final Result [facility] [address] [facility] Department [place] [address] * Differential, auto (09/13/2024 1:24 PM CDT) Neutrophil abs 4.79 1.50 - 6.50 K/cumm Imm gran abs 0.01 0.00 - 0.10 K/cumm [facility] Lymphocyte abs 1.49 0.80 - 3.30 K/cumm [facility] Monocyte abs 0.69 0.20 - 0.80 K/cumm [facility] Eosinophil abs 0.12 0.00 - 0.50 K/cumm [facility] Basophil abs 0.06 0.00 - 0.10 K/cumm [facility] Neutrophil pct 67.0 % [facility] Comment: Interpretive Data Percent cell count reference ranges are not reported, since discordance with absolute values may lead to misinterpretation of CBC data. Current Interpretive Data was last revised on 2017. Imm gran pct 0.1 % [facility] Comment: Interpretive Data Percent cell count reference ranges are not reported, since discordance with absolute values may lead to misinterpretation of CBC data. Current Interpretive Data was last revised on 2017. Lymphocyte pct 20.8 % [facility] Comment: Interpretive Data Percent cell count reference ranges are not reported, since discordance with absolute values may lead to misinterpretation of CBC data. Current Interpretive Data was last revised on 2017. Monocyte pct 9.6 % [facility] Comment: Interpretive Data Percent cell count reference ranges are not reported, since discordance with absolute values may lead to misinterpretation of CBC data. Current Interpretive Data was last revised on 2017. Eosinophil pct 1.7 % [facility] Comment: Interpretive Data Percent cell count reference ranges are not reported, since discordance with absolute values may lead to misinterpretation of CBC data. Current Interpretive Data was last revised on 2017. Basophil pct 0.8 % [facility] Comment: Interpretive Data Percent cell count reference ranges are not reported, since discordance with absolute values may lead to misinterpretation of CBC data. Current Interpretive Data was last revised on 2017. Blood 09/13/2024 1:24 PM CDT 09/13/2024 1:29 PM CDT Melyssa Anderson MD LAB BLOOD ORDERABLES Final Result Performing Organization Address [facility] de Phone Number [address] [address] * Thyroid Function [place] (09/13/2024 1:24 PM CDT) [facility] TSH 1.33 0.30 - 4.20 mcIUnit/mL Blood 09/13/2024 1:24 PM CDT 09/13/2024 1:29 PM CDT Melyssa Anderson MD LAB BLOOD ORDERABLES Final Result Performing Organization Address [facility] de Phone Number [address] [address] * (ABNORMAL) CBC with auto differential (09/13/2024 1:24 PM CDT) [facility] WBC 7.16 3.80 - 9.90 K/cumm Hgb 10.9(L) 13.0 - 17.5 g/dL [facility] Hct 33.1(L) 38.9 - 50.3 % [facility] Plt 270 150 - 400 K/cumm [facility] MPV 9.4 9.1 - 12.3 fL [facility] RBC 3.65(L) 4.30 - 5.80 M/cumm [facility] MCV 90.7 81.3 - 96.4 fL [facility] MCH 29.9 27.1 - 33.3 pg [facility] MCHC 32.9 32.3 - 35.7 g/dL [facility] RDW CV 17.2(H) 11.1 - 14.9 % [facility] RDW SD 57.1(H) 35.7 - 48.1 fL [facility] NRBC abs 0.00 0.00 - 0.01 K/cumm [facility] Blood Venous blood specimen / Unknown 09/13/2024 1:24 PM CDT 09/13/2024 1:29 PM CDT Melyssa Anderson MD LAB BLOOD ORDERABLES Final Result Performing Organization Address City/[facility] Co de Phone Number [address] [place] [address] * Lipase (09/13/2024 1:24 PM CDT) Pathologist [facility] Lipase 16 10 - 99 Units/L Comment:Hemolyzed; result mi ght be falsely decreased Blood 09/13/2024 1:24 PM CDT 09/13/2024 1:29 PM CDT Yuridia ROCA LAB BLOOD ORDERABLES F inal Result Performing Organization Address [facility] de Phone Number [address] [address] * Ethanol (09/13/2024 1:24 PM CDT) Pathologist [facility] Ethanol <10 <=10 mg/dL Comment: Interpretive Data Legal limit of intoxication > or = 80 mg/dL Levels > or = 400 mg/dL are potentially TOXIC. Current interpretive data was last revised on 2018. Blood 09/13/2024 1:24 PM CDT 09/13/2024 1:29 PM CDT Melyssa Anderson MD LAB BLOOD ORDERABLES Final Result Performing Organization Address [facility] Co de Phone Number [address] [place] [address] * (ABNORMAL) Comprehensive metabolic panel (09/13/2024 1:24 PM CDT) Sodium 134(L) 135 - 145 mmol/L Potassium, pl 4.4 3.3 - 4.9 mmol/L [facility] Comment:Hemolyzed; Potassium value may be falsely elevated by as much as 1.0 mmol/L. Suggest redraw and reanalysis. Chloride 101 97 - 110 mmol/L [facility] CO2 19(L) 22 - 32 mmol/L [facility] Anion gap 14 2 - 15 mmol/L [facility] BUN 9 6 - 25 mg/dL [facility] Creatinine 0.68(L) 0.80 - 1.30 mg/dL [facility] Glucose 108 70 - 199 mg/dL [facility] Comment: Interpretive Data Fasting glucose >/= [...] Calcium 9.8 8.5 - 10.3 mg/dL [facility] Bilirubin, total 0.6 0.1 - 1.2 mg/dL [facility] Protein, pl 7.6 6.5 - 8.5 g/dL [facility] Albumin 4.3 3.5 - 5.0 g/dL [facility] Alk phos 83 40 - 130 Units/L [facility] ALT See Comment 7 - 55 [facility] Comment:Credited; Hemolyzed Specimen AST See Comment 10 - 50 [facility] Comment:Credited; Hemolyzed Specimen Blood 09/13/2024 1:24 PM CDT 09/13/2024 1:29 PM CDT us Melyssa Anderson MD LAB BLOOD ORDERABLES Final Result [facility] [address] [facility] Department [place] [address] * (ABNORMAL) POCT glucose (08/21/2024 7:30 AM CDT) Glucose, POC 206(H) 70 - 199 mg/dL Blood 08/21/2024 7:30 AM CDT 08/21/2024 7:30 AM CDT Arley Cheung MD LAB POCT ORDERABLES - DEVIC E Final Result [facility] [place] [address] * POCT glucose (08/21/2024 5:37 AM CDT) Pathologist [facility] Glucose, POC 113 70 - 199 mg/dL Blood 08/21/2024 5:37 AM CDT 08/21/2024 5:37 AM CDT Arley Cheung MD LAB POCT ORDERABLES - DEVIC E Final Result Performing Organization Address City/[facility]/ZIP Co [place] [address] * Infection Prevention Lanny auris PCR, surveillance Axilla/Groin (08/21/2024 5:26 AM CDT) [facility] Lanny auris DNA Not Detected Not Detected [facility] Comment: Interpretive Data Testing performed by [facility] using the [employer] [id number] [id number] Lanny auris assay. This assay detects DNA from Lanny auris using Real-Time PCR. This assay is laboratory developed and is not cleared by the [place] Food and Drug Administration. The performance characteristics have been verified by the [facility]. Axilla/Groin 08/21/2024 5:26 AM CDT 08/21/2024 6:32 AM CDT Michael Claudio MD LAB MICROBIOLOGY - GENERAL ORDER DELIO Final Result Performing Organization Address [facility] Co de Phone Number [facility] [place] [address] [facility] * CP-CRE culture, surveillance Rectal swab (08/21/2024 5:26 AM CDT) Report Final Report: Negative Rectal swab 08/21/2024 5:26 AM CDT 08/21/2024 6:39 AM CDT Narrative [facility] - 08/22/2024 11:59 AM CDT Interpretive Data The screening agar used for the detection of carbapenemase-producing Enterobacterales (CP-CRE) has not been approved by the Food and Drug Administration. The performance characteristics of this medium have been evaluated and verified by the [facility]. This media demonstrates highest sensitivity for KPC and NDM-1 producing isolates. This screening assay is exclusively intended for infection control and surveillance, not for patient diagnosis or treatment purposes. Current interpretive data was last revised on 2023. Michael Claudio MD LAB MICROBIOLOGY - GENERAL ORDER DELIO Final Result Performing Organization Address [facility] de Phone Number [facility] Department [place] [address] * eGFR (08/21/2024 4:48 AM CDT) eGFR [...] Cheung MD LAB BLOOD ORDERABLES Final Result [facility] [place] [address] * Differential, auto (08/21/2024 4:48 AM CDT) Neutrophil abs 6.0 1.5 - 6.5 K/cumm Imm gran abs 0.0 0.0 - 0.1 K/cumm [facility] Lymphocyte abs 1.6 0.8 - 3.3 K/cumm [facility] Monocyte abs 0.7 0.2 - 0.8 K/cumm [facility] Eosinophil abs 0.3 0.0 - 0.5 K/cumm [facility] Basophil abs 0.1 0.0 - 0.1 K/cumm [facility] Neutrophil pct 68.4 % [facility] Comment: Interpretive Data Percent cell count reference ranges are not reported, since discordance with absolute values may lead to misinterpretation of CBC data. Current Interpretive Data was last revised on 2017. Imm gran pct 0.3 % [facility] Comment: Interpretive Data Percent cell count reference ranges are not reported, since discordance with absolute values may lead to misinterpretation of CBC data. Current Interpretive Data was last revised on 2017. Lymphocyte pct 18.6 % [facility] Comment: Interpretive Data Percent cell count reference ranges are not reported, since discordance with absolute values may lead to misinterpretation of CBC data. Current Interpretive Data was last revised on 2017. Monocyte pct 8.2 % [facility] Comment: Interpretive Data Percent cell count reference ranges are not reported, since discordance with absolute values may lead to misinterpretation of CBC data. Current Interpretive Data was last revised on 2017. Eosinophil pct 3.2 % [facility] Comment: Interpretive Data Percent cell count reference ranges are not reported, since discordance with absolute values may lead to misinterpretation of CBC data. Current Interpretive Data was last revised on 2017. Basophil pct 1.3 % [facility] Comment: Interpretive Data Percent cell count reference ranges are not reported, since discordance with absolute values may lead to misinterpretation of CBC data. Current Interpretive Data was last revised on 2017. Blood 08/21/2024 4:48 AM CDT 08/21/2024 5:47 AM CDT us Arley Cheung MD LAB BLOOD ORDERABLES Final Result [facility] Department [place] [address] * (ABNORMAL) CBC with auto differential (08/21/2024 4:48 AM CDT) WBC 8.8 3.8 - 9.9 K/cumm Hgb 10.4(L) 13.0 - 17.5 g/dL [facility] Hct 31.8(L) 38.9 - 50.3 % [facility] Plt 609(H) 150 - 400 K/cumm [facility] MPV 9.3 9.1 - 12.3 fL [facility] RBC 3.53(L) 4.30 - 5.80 M/cumm [facility] MCV 90.1 81.3 - 96.4 fL [facility] MCH 29.5 27.1 - 33.3 pg [facility] MCHC 32.7 32.3 - 35.7 g/dL [facility] RDW CV 17.2(H) 11.1 - 14.9 % [facility] RDW SD 56.5(H) 35.7 - 48.1 fL [facility] NRBC abs 0.00 0.00 - 0.01 K/cumm [facility] Blood 08/21/2024 4:48 AM CDT 08/21/2024 5:47 AM CDT us Arley Cheung MD LAB BLOOD ORDERABLES Final Result Performing Organization Address [facility] Co de Phone Number [facility] [place] [address] * Phosphorus (08/21/2024 4:48 AM CDT) Phosphorus, pl 3.9 2.3 - 4.5 mg/dL Blood 08/21/2024 4:48 AM CDT 08/21/2024 5:47 AM CDT us Arley Cheung MD LAB BLOOD ORDERABLES Final Result Performing Organization Address [facility] Co de Phone Number [facility] [place] [address] * Magnesium (08/21/2024 4:48 AM CDT) Pathologist [facility] Magnesium 1.9 1.4 - 2.5 mg/dL Blood 08/21/2024 4:48 AM CDT 08/21/2024 5:47 AM CDT us Arley Cheung MD LAB BLOOD ORDERABLES Final Result Performing Organization Address City/[facility] Co de Phone Number [facility] [place] [address] * (ABNORMAL) Hepatic function panel (08/21/2024 4:48 AM CDT) Bilirubin, total <0.2 0.1 - 1.2 mg/dL Bilirubin, direct <0.2 0.1 - 0.3 mg/dL [facility] Protein, pl 6.2(L) 6.5 - 8.5 g/dL [facility] Albumin 3.1(L) 3.5 - 5.0 g/dL [facility] Alk phos 87 40 - 130 Units/L [facility] ALT 9 7 - 55 Units/L [facility] AST 18 10 - 50 Units/L [facility] Blood 08/21/2024 4:48 AM CDT 08/21/2024 5:47 AM CDT Arley Cheung MD LAB BLOOD ORDERABLES Final Result [facility] Department [place] [address] * (ABNORMAL) Basic metabolic panel (08/21/2024 4:48 AM CDT) Sodium 139 135 - 145 mmol/L Potassium, pl 4.7 3.3 - 4.9 mmol/L [facility] Chloride 107 97 - 110 mmol/L [facility] CO2 26 22 - 32 mmol/L [facility] Anion gap 6 2 - 15 mmol/L [facility] BUN 5(L) 6 - 25 mg/dL [facility] Creatinine 0.73(L) 0.80 - 1.30 mg/dL [facility] Glucose 115 70 - 199 mg/dL [facility] Comment: Interpretive Data Fasting glucose >/= [...] 2022. Calcium 9.3 8.5 - 10.3 mg/dL [facility] Blood 08/21/2024 4:48 AM CDT 08/21/2024 5:47 AM CDT us Arley Cheung MD LAB BLOOD ORDERABLES Final Result Performing Organization Address [facility] Co de Phone Number [facility] [place] [address] * POCT glucose (08/20/2024 8:23 PM CDT) Glucose, POC 134 70 - 199 mg/dL Blood 08/20/2024 8:23 PM CDT 08/20/2024 8:23 PM CDT us Arley Cheung MD LAB POCT ORDERABLES - DEVIC E Final Result Performing Organization Address [facility] de Phone Number [facility] [place] [address] * POCT glucose (08/20/2024 5:21 PM CDT) Glucose, POC 165 70 - 199 mg/dL Blood 08/20/2024 5:21 PM CDT 08/20/2024 5:21 PM CDT us Arley Cheung MD LAB POCT ORDERABLES - DEVIC E Final Result Performing Organization Address [facility] de Phone Number [facility] Department [place] [address] * POCT glucose (08/20/2024 12:20 PM CDT) Glucose, POC 74 70 - 199 mg/dL Blood 08/20/2024 12:2 0 PM CDT 08/20/2024 12:20 PM CDT us Arley Cheung MD LAB POCT ORDERABLES - DEVIC E Final Result Performing Organization Address [facility] Co de Phone Number [facility] [place] [address] * POCT glucose (08/20/2024 7:43 AM CDT) Pathologist [facility] Glucose, POC 97 70 - 199 mg/dL Blood 08/20/2024 7:43 AM CDT 08/20/2024 7:43 AM CDT us Arley Cheung MD LAB POCT ORDERABLES - DEVIC E Final Result Performing Organization Address City/[facility]/ZIP Co de Phone Number [facility] [place] [address] * eGFR (08/20/2024 5:13 AM CDT) [facility] eGFR >90 >=60 mL/min/1. 73 m2 Comment: [...] LAB BLOOD ORDERABLES Final Result [facility] Department [place] [address] * (ABNORMAL) Differential, auto (08/20/2024 5:13 AM [...] [facility] Neutrophil pct 42.6 % [facility] Comment: Interpretive Data Percent cell count reference ranges are not reported, since discordance with absolute values may lead to misinterpretation of CBC data. Current Interpretive Data was last revised on 2017. Imm gran pct 0.3 % [facility] Comment: Interpretive Data Percent cell count reference ranges are not reported, since discordance with absolute values may lead to misinterpretation of CBC data. Current Interpretive Data was last revised on 2017. Lymphocyte pct 39.7 % [facility] Comment: Interpretive Data Percent cell count reference ranges are not reported, since discordance with absolute values may lead to misinterpretation of CBC data. Current Interpretive Data was last revised on 2017. Monocyte pct 9.7 % [facility] Comment: Interpretive Data Percent cell count reference ranges are not reported, since discordance with absolute values may lead to misinterpretation of CBC data. Current Interpretive Data was last revised on 2017. Eosinophil pct 5.1 % [facility] Comment: Interpretive Data Percent cell count reference ranges are not reported, since discordance with absolute values may lead to misinterpretation of CBC data. Current Interpretive Data was last revised on 2017. Basophil pct 2.6 % [facility] Comment: Interpretive Data Percent cell count reference ranges are not reported, since discordance with absolute values may lead to misinterpretation of CBC data. Current Interpretive Data was last revised on 2017. Blood 08/20/2024 5:13 AM CDT 08/20/2024 5:40 AM CDT Arley Cheung MD LAB BLOOD ORDERABLES Final Result Performing Organization Address [facility] Co de Phone Number [facility] Department [place] [address] * (ABNORMAL) CBC with auto differential (08/20/2024 5:13 AM CDT) Pathologist [facility] WBC 5.9 3.8 - 9.9 K/cumm Hgb 10.8(L) 13.0 - 17.5 g/dL [facility] Hct 32.6(L) 38.9 - 50.3 % [facility] Plt 628(H) 150 - 400 K/cumm [facility] MPV 8.8(L) 9.1 - 12.3 fL [facility] RBC 3.62(L) 4.30 - 5.80 M/cumm [facility] MCV 90.1 81.3 - 96.4 fL [facility] MCH 29.8 27.1 - 33.3 pg [facility] MCHC 33.1 32.3 - 35.7 g/dL [facility] RDW CV 17.2(H) 11.1 - 14.9 % [facility] RDW SD 57.0(H) 35.7 - 48.1 fL [facility] NRBC abs 0.00 0.00 - 0.01 K/cumm [facility] Blood 08/20/2024 5:13 AM CDT 08/20/2024 5:40 AM CDT Arley Cheung MD LAB BLOOD ORDERABLES Final Result Performing Organization Address City/[facility]/ZIP Co de Phone Number [facility] [place] [address] * Phosphorus (08/20/2024 5:13 AM CDT) Pathologist [facility] Phosphorus, pl 3.3 2.3 - 4.5 mg/dL Blood 08/20/2024 5:13 AM CDT 08/20/2024 5:41 AM CDT us Arley Cheung MD LAB BLOOD ORDERABLES Final Result Performing Organization Address [facility] Co de Phone Number [facility] Department [place] [address] * Magnesium (08/20/2024 5:13 AM CDT) Pathologist [facility] Magnesium 2.0 1.4 - 2.5 mg/dL Blood 08/20/2024 5:13 AM CDT 08/20/2024 5:41 AM CDT us Arley Cheung MD LAB BLOOD ORDERABLES Final Result Performing Organization Address [facility] de Phone Number [facility] Department [place] [address] * (ABNORMAL) Hepatic function panel (08/20/2024 5:13 AM CDT) [facility] Bilirubin, total <0.2 0.1 - 1.2 mg/dL Bilirubin, direct <0.2 0.1 - 0.3 mg/dL [facility] Protein, pl 6.7 6.5 - 8.5 g/dL [facility] Albumin 3.4(L) 3.5 - 5.0 g/dL [facility] Alk phos 87 40 - 130 Units/L [facility] ALT 13 7 - 55 Units/L [facility] AST 17 10 - 50 Units/L [facility] Blood 08/20/2024 5:13 AM CDT 08/20/2024 5:41 AM CDT us Arley Cheung MD LAB BLOOD ORDERABLES Final Result Performing Organization Address [facility] Co de Phone Number [facility] [place] [address] * (ABNORMAL) Basic metabolic panel (08/20/2024 5:13 AM CDT) Pathologist [facility] Sodium 141 135 - 145 mmol/L Potassium, pl 4.4 3.3 - 4.9 mmol/L [facility] Chloride 105 97 - 110 mmol/L [facility] CO2 26 22 - 32 mmol/L [facility] Anion gap 10 2 - 15 mmol/L [facility] BUN 4(L) 6 - 25 mg/dL [facility] Creatinine 0.80 0.80 - 1.30 mg/dL [facility] Glucose 98 70 - 199 mg/dL [facility] Comment: Interpretive Data Fasting glucose >/= [...] 2022. Calcium 9.5 8.5 - 10.3 mg/dL [facility] Blood 08/20/2024 5:13 AM CDT 08/20/2024 5:41 AM CDT Arley Cheung MD LAB BLOOD ORDERABLES Final Result [facility] [place] [address] * POCT glucose (08/20/2024 3:12 AM CDT) Pathologist [facility] Glucose, POC 110 70 - 199 mg/dL Blood 08/20/2024 3:12 AM CDT 08/20/2024 3:12 AM CDT us Arley S W. Thoelke MD LAB POCT ORDERABLES - DEVIC E Final Result Performing Organization Address City/[facility] Co de Phone Number [facility] [place] [address] * POCT glucose (08/20/2024 1:38 AM CDT) Glucose, POC 166 70 - 199 mg/dL Blood 08/20/2024 1:38 AM CDT 08/20/2024 1:38 AM CDT us Arley Cheung MD LAB POCT ORDERABLES - DEVIC E Final Result Performing Organization Address [facility] de Phone Number [facility] [place] [address] * (ABNORMAL) POCT glucose (08/19/2024 11:45 PM CDT) Glucose, POC 210(H) 70 - 199 mg/dL Blood 08/19/2024 11:4 5 PM CDT 08/19/2024 11:45 PM CDT Result Rylan Cheung MD LAB POCT ORDERABLES - DEVIC E Final Result Performing Organization Address [facility] Co de Phone Number [facility] Department [place] [address] * POCT glucose (08/19/2024 10:24 PM CDT) Glucose, POC 112 70 - 199 mg/dL Blood 08/19/2024 10:2 4 PM CDT 08/19/2024 10:24 PM CDT us Arley Cheung MD LAB POCT ORDERABLES - DEVIC E Final Result Performing Organization Address City/[facility] Co de Phone Number [facility] [place] [address] * POCT glucose (08/19/2024 9:55 PM CDT) Glucose, POC 100 70 - 199 mg/dL Blood 08/19/2024 9:55 PM CDT 08/19/2024 9:55 PM CDT us Arley Cheung MD LAB POCT ORDERABLES - DEVIC E Final Result Performing Organization Address City/[facility] [place] [place] [address] * (ABNORMAL) POCT glucose (08/19/2024 8:07 PM CDT) Glucose, POC 376(H) 70 - 199 mg/dL Blood 08/19/2024 8:07 PM CDT 08/19/2024 8:07 PM CDT us Arley Cheung MD LAB POCT ORDERABLES - DEVIC E Final Result Performing Organization Address City/[facility] Co de Phone Number [facility] [place] [address] * (ABNORMAL) POCT glucose (08/19/2024 7:24 PM CDT) Glucose, POC 325(H) 70 - 199 mg/dL Blood 08/19/2024 7:24 PM CDT 08/19/2024 7:24 PM CDT us Arley Cheung MD LAB POCT ORDERABLES - DEVIC E Final Result Performing Organization Address City/[facility]/ZIP Co de Phone Number [facility] [place] [address] * eGFR (08/18/2024 10:25 PM CDT) [facility] eGFR >90 >=60 mL/min/1. 73 m2 Comment: [...] Cheung MD LAB BLOOD ORDERABLES Final Result [facility] Department [place] [address] * (ABNORMAL) Differential, auto (08/18/2024 10:25 PM CDT) [facility] Neutrophil abs 3.7 1.5 - 6.5 K/cumm Imm gran abs 0.0 0.0 - 0.1 K/cumm [facility] Lymphocyte abs 2.0 0.8 - 3.3 K/cumm [facility] Monocyte abs 0.9(H) 0.2 - 0.8 K/cumm [facility] Eosinophil abs 0.3 0.0 - 0.5 K/cumm [facility] Basophil abs 0.1 0.0 - 0.1 K/cumm [facility] Neutrophil pct 52.6 % [facility] Comment: Interpretive Data Percent cell count reference ranges are not reported, since discordance with absolute values may lead to misinterpretation of CBC data. Current Interpretive Data was last revised on 2017. Imm gran pct 0.3 % [facility] Comment: Interpretive Data Percent cell count reference ranges are not reported, since discordance with absolute values may lead to misinterpretation of CBC data. Current Interpretive Data was last revised on 2017. Lymphocyte pct 29.0 % [facility] Comment: Interpretive Data Percent cell count reference ranges are not reported, since discordance with absolute values may lead to misinterpretation of CBC data. Current Interpretive Data was last revised on 2017. Monocyte pct 12.8 % [facility] Comment: Interpretive Data Percent cell count reference ranges are not reported, since discordance with absolute values may lead to misinterpretation of CBC data. Current Interpretive Data was last revised on 2017. Eosinophil pct 4.0 % [facility] Comment: Interpretive Data Percent cell count reference ranges are not reported, since discordance with absolute values may lead to misinterpretation of CBC data. Current Interpretive Data was last revised on 2017. Basophil pct 1.3 % [facility] Comment: Interpretive Data Percent cell count reference ranges are not reported, since discordance with absolute values may lead to misinterpretation of CBC data. Current Interpretive Data was last revised on 2017. Blood 08/18/2024 10:2 5 PM CDT 08/18/2024 10:49 PM CDT us Arley Cheung MD LAB BLOOD ORDERABLES Final Result [facility] [place] [address] * (ABNORMAL) CBC with auto differential (08/18/2024 10:25 PM CDT) WBC 6.9 3.8 - 9.9 K/cumm Hgb 10.6(L) 13.0 - 17.5 g/dL [facility] Hct 32.5(L) 38.9 - 50.3 % [facility] Plt 700(H) 150 - 400 K/cumm [facility] MPV 8.7(L) 9.1 - 12.3 fL [facility] RBC 3.60(L) 4.30 - 5.80 M/cumm [facility] [facility] MCV 90.3 81.3 - 96.4 fL [facility] MCH 29.4 27.1 - 33.3 pg [facility] MCHC 32.6 32.3 - 35.7 g/dL [facility] RDW CV 17.6(H) 11.1 - 14.9 % [facility] RDW SD 57.7(H) 35.7 - 48.1 fL [facility] NRBC abs 0.00 0.00 - 0.01 K/cumm [facility] Blood 08/18/2024 10:2 5 PM CDT 08/18/2024 10:49 PM CDT Arley Cheung MD LAB BLOOD ORDERABLES Final Result [facility] [place] [address] * Phosphorus (08/18/2024 10:25 PM CDT) Pathologist [facility] Phosphorus, pl 3.3 2.3 - 4.5 mg/dL Blood 08/18/2024 10:2 5 PM CDT 08/18/2024 10:47 PM CDT Arley Cheung MD LAB BLOOD ORDERABLES Final Result [facility] [place] [address] * Magnesium (08/18/2024 10:25 PM CDT) Pathologist [facility] Magnesium 1.9 1.4 - 2.5 mg/dL Blood 08/18/2024 10:2 5 PM CDT 08/18/2024 10:47 PM CDT Arley Cheung MD LAB BLOOD ORDERABLES Final Result Performing Organization Address [facility] Co de Phone Number [facility] [place] [address] * Hepatic function panel (08/18/2024 10:25 PM CDT) [facility] Bilirubin, total <0.2 0.1 - 1.2 mg/dL Bilirubin, direct <0.2 0.1 - 0.3 mg/dL [facility] Protein, pl 7.1 6.5 - 8.5 g/dL [facility] Albumin 3.5 3.5 - 5.0 g/dL [facility] Alk phos 98 40 - 130 Units/L [facility] ALT 12 7 - 55 Units/L [facility] AST 17 10 - 50 Units/L [facility] Blood 08/18/2024 10:2 5 PM CDT 08/18/2024 10:47 PM CDT Arley Cheung MD LAB BLOOD ORDERABLES Final Result Performing Organization Address [facility] de Phone Number [facility] Department [place] [address] * (ABNORMAL) Basic metabolic panel (08/18/2024 10:25 PM CDT) [facility] Sodium 144 135 - 145 mmol/L Potassium, pl 4.3 3.3 - 4.9 mmol/L [facility] Chloride 105 97 - 110 mmol/L [facility] CO2 30 22 - 32 mmol/L [facility] Anion gap 9 2 - 15 mmol/L [facility] BUN 3(L) 6 - 25 mg/dL [facility] Creatinine 0.72(L) 0.80 - 1.30 mg/dL [facility] Glucose 109 70 - 199 mg/dL [facility] Comment: Interpretive Data Fasting glucose >/= [...] 2022. Calcium 9.6 8.5 - 10.3 mg/dL [facility] Blood 08/18/2024 10:2 5 PM CDT 08/18/2024 10:47 PM CDT us Arley Cheung MD LAB BLOOD ORDERABLES Final Result [facility] [place] [address] * eGFR (08/17/2024 8:00 PM CDT) eGFR [...] Cheung MD LAB BLOOD ORDERABLES Final Result [facility] [place] [address] * (ABNORMAL) Differential, auto (08/17/2024 8:00 PM CDT) Neutrophil abs 6.5 1.5 - 6.5 K/cumm Imm gran abs 0.0 0.0 - 0.1 K/cumm [facility] Lymphocyte abs 1.3 0.8 - 3.3 K/cumm [facility] Monocyte abs 0.9(H) 0.2 - 0.8 K/cumm [facility] Eosinophil abs 0.2 0.0 - 0.5 K/cumm [facility] Basophil abs 0.1 0.0 - 0.1 K/cumm [facility] Neutrophil pct 71.5 % [facility] Comment: Interpretive Data Percent cell count reference ranges are not reported, since discordance with absolute values may lead to misinterpretation of CBC data. Current Interpretive Data was last revised on 2017. Imm gran pct 0.3 % [facility] Comment: Interpretive Data Percent cell count reference ranges are not reported, since discordance with absolute values may lead to misinterpretation of CBC data. Current Interpretive Data was last revised on 2017. Lymphocyte pct 14.5 % [facility] Comment: Interpretive Data Percent cell count reference ranges are not reported, since discordance with absolute values may lead to misinterpretation of CBC data. Current Interpretive Data was last revised on 2017. Monocyte pct 10.2 % [facility] Comment: Interpretive Data Percent cell count reference ranges are not reported, since discordance with absolute values may lead to misinterpretation of CBC data. Current Interpretive Data was last revised on 2017. Eosinophil pct 2.6 % [facility] Comment: Interpretive Data Percent cell count reference ranges are not reported, since discordance with absolute values may lead to misinterpretation of CBC data. Current Interpretive Data was last revised on 2017. Basophil pct 0.9 % [facility] Comment: Interpretive Data Percent cell count reference ranges are not reported, since discordance with absolute values may lead to misinterpretation of CBC data. Current Interpretive Data was last revised on 2017. Blood 08/17/2024 8:00 PM CDT 08/17/2024 8:22 PM CDT Arley Cheung MD LAB BLOOD ORDERABLES Final Result Performing Organization Address [facility] Co de Phone Number [facility] Department [place] [address] * (ABNORMAL) CBC with auto differential (08/17/2024 8:00 PM CDT) WBC 9.1 3.8 - 9.9 K/cumm Hgb 9.8(L) 13.0 - 17.5 g/dL [facility] Hct 29.8(L) 38.9 - 50.3 % [facility] Plt 670(H) 150 - 400 K/cumm [facility] MPV 8.9(L) 9.1 - 12.3 fL [facility] RBC 3.32(L) 4.30 - 5.80 M/cumm [facility] MCV 89.8 81.3 - 96.4 fL [facility] MCH 29.5 27.1 - 33.3 pg [facility] MCHC 32.9 32.3 - 35.7 g/dL [facility] RDW CV 17.4(H) 11.1 - 14.9 % [facility] RDW SD 57.1(H) 35.7 - 48.1 fL [facility] NRBC abs 0.00 0.00 - 0.01 K/cumm [facility] Blood 08/17/2024 8:00 PM CDT 08/17/2024 8:22 PM CDT Arley Cheung MD LAB BLOOD ORDERABLES Final Result Performing Organization Address [facility]/ZIP Co de Phone Number [facility] [place] [address] * (ABNORMAL) Phosphorus (08/17/2024 8:00 PM CDT) [facility] Phosphorus, pl 2.2(L) 2.3 - 4.5 mg/dL Blood 08/17/2024 8:00 PM CDT 08/17/2024 8:22 PM CDT Arley Cheung MD LAB [place] [address] * Magnesium (08/17/2024 8:00 PM CDT) [facility] Magnesium 1.8 1.4 - 2.5 mg/dL Blood 08/17/2024 8:00 PM CDT 08/17/2024 8:22 PM CDT Arley Cheung MD LAB BLOOD ORDERABLES Final Result Performing Organization Address City/[facility] [place] [address] * (ABNORMAL) Hepatic function panel (08/17/2024 8:00 PM CDT) [facility] Bilirubin, total <0.2 0.1 - 1.2 mg/dL Bilirubin, direct <0.2 0.1 - 0.3 mg/dL [facility] Protein, pl 6.7 6.5 - 8.5 g/dL [facility] Albumin 3.3(L) 3.5 - 5.0 g/dL [facility] Alk phos 106 40 - 130 Units/L [facility] ALT 13 7 - 55 Units/L [facility] AST 17 10 - 50 Units/L [facility] Blood 08/17/2024 8:00 PM CDT 08/17/2024 8:22 PM CDT Arley Cheung MD LAB BLOOD ORDERABLES Final Result [facility] Department [place] [address] * (ABNORMAL) Basic metabolic panel (08/17/2024 8:00 PM CDT) [facility] Sodium 142 135 - 145 mmol/L Potassium, pl 3.7 3.3 - 4.9 mmol/L [facility] Chloride 106 97 - 110 mmol/L [facility] CO2 25 22 - 32 mmol/L [facility] Anion gap 11 2 - 15 mmol/L [facility] BUN 6 6 - 25 mg/dL [facility] Creatinine 0.74(L) 0.80 - 1.30 mg/dL [facility] Glucose 143 70 - 199 mg/dL [facility] Comment: Interpretive Data Fasting glucose >/= [...] 2022. Calcium 9.3 8.5 - 10.3 mg/dL [facility] Blood 08/17/2024 8:00 PM CDT 08/17/2024 8:22 PM CDT Arley Cheung MD LAB BLOOD ORDERABLES Final Result Performing Organization Address [facility]/ZIP Co de Phone Number [facility] Department [place] [address] * Blood culture Blood (08/17/2024 12:12 PM [...] performance characteristics have been verified by the [facility]. For questions about this culture, contact the Microbiology Laboratory at [phone]. Interpretive data was last revised on 24. Melecio Michelle MD LAB MICROBIOLOGY - GEN ERAL ORDERABLES Final Result [facility] [place] [address] * Blood culture Blood (08/17/2024 12:12 PM [...] be performed for organism identification using the johnyn ePlex blood culture identification panel for gram positive (BCID-GP) and gram negative (BCID-GN) organisms. This nucleic acid amplification test detects microbial DNA in positive blood culture broth. This assay has been cleared by the [place] Food and Drug Administration and its performance characteristics have been verified by the [facility]. For questions about this culture, contact the Microbiology Laboratory at [phone]. Interpretive data was last revised on 24. Melecio Michelle MD LAB MICROBIOLOGY - GEN ERAL ORDERABLES Final Result [facility] Department [place] [address] * C. difficile testing Stool (08/17/2024 10:50 AM CDT) [facility] Result Negative Negative Toxin Result Negative Negative [facility] C. diff result Negative, free toxin Negative, free toxin [facility] C. diff interp Negative for toxigenic Clostridioides (Clostridium) difficile. Analysis was performed using a glutamate dehydrogenase antigen detection assay combined with a C. difficile toxin detection assay. [facility] Stool 08/17/2024 10:5 0 AM CDT 08/17/2024 11:00 AM CDT Narrative [facility] - 08/17/2024 11:31 AM CDT Testing for C. difficile is not recommended within 4 days of a negative result, 10 days of a positive, or 24 hours after laxative administration. If this order is clinically indicated, contact the lab and enter the passcode to complete this order.->[id number] Arley Cheung MD LAB MICROBIOLOGY - GENERAL ORDERABLES Final Result Performing Organization Address [facility] Co de Phone Number [facility] Department [place] [address] * eGFR (08/16/2024 11:14 PM CDT) eGFR [...] BLOOD ORDERABLES Final Result Performing Organization Address City/[facility]/ZIP Co de Phone Number [facility] Department [place] [address] * Differential, auto (08/16/2024 11:14 PM CDT) Pathologist [facility] Neutrophil abs 2.8 1.5 - 6.5 K/cumm Imm gran abs 0.0 0.0 - 0.1 K/cumm [facility] Lymphocyte abs 1.1 0.8 - 3.3 K/cumm [facility] Monocyte abs 0.8 0.2 - 0.8 K/cumm [facility] Eosinophil abs 0.3 0.0 - 0.5 K/cumm [facility] Basophil abs 0.1 0.0 - 0.1 K/cumm [facility] Neutrophil pct 53.8 % [facility] Comment: Interpretive Data Percent cell count reference ranges are not reported, since discordance with absolute values may lead to misinterpretation of CBC data. Current Interpretive Data was last revised on 2017. Imm gran pct 0.4 % [facility] Comment: Interpretive Data Percent cell count reference ranges are not reported, since discordance with absolute values may lead to misinterpretation of CBC data. Current Interpretive Data was last revised on 2017. Lymphocyte pct 22.2 % [facility] Comment: Interpretive Data Percent cell count reference ranges are not reported, since discordance with absolute values may lead to misinterpretation of CBC data. Current Interpretive Data was last revised on 2017. Monocyte pct 15.7 % [facility] Comment: Interpretive Data Percent cell count reference ranges are not reported, since discordance with absolute values may lead to misinterpretation of CBC data. Current Interpretive Data was last revised on 2017. Eosinophil pct 5.9 % [facility] Comment: Interpretive Data Percent cell count reference ranges are not reported, since discordance with absolute values may lead to misinterpretation of CBC data. Current Interpretive Data was last revised on 2017. Basophil pct 2.0 % [facility] Comment: Interpretive Data Percent cell count reference ranges are not reported, since discordance with absolute values may lead to misinterpretation of CBC data. Current Interpretive Data was last revised on 2017. Blood 08/16/2024 11:1 4 PM CDT 08/17/2024 1:03 AM CDT us Arley Cheung MD LAB BLOOD ORDERABLES Final Result [facility] Department [place] [address] * (ABNORMAL) CBC with auto differential (08/16/2024 11:14 PM CDT) Pathologist [facility] WBC 5.1 3.8 - 9.9 K/cumm Hgb 10.0(L) 13.0 - 17.5 g/dL [facility] Hct 30.6(L) 38.9 - 50.3 % [facility] Plt 702(H) 150 - 400 K/cumm [facility] MPV 9.0(L) 9.1 - 12.3 fL [facility] RBC 3.36(L) 4.30 - 5.80 M/cumm [facility] MCV 91.1 81.3 - 96.4 fL [facility] MCH 29.8 27.1 - 33.3 pg [facility] MCHC 32.7 32.3 - 35.7 g/dL [facility] RDW CV 17.5(H) 11.1 - 14.9 % [facility] RDW SD 58.3(H) 35.7 - 48.1 fL [facility] NRBC abs 0.00 0.00 - 0.01 K/cumm [facility] Blood 08/16/2024 11:1 4 PM CDT 08/17/2024 1:03 AM CDT Arley Cheung MD LAB BLOOD ORDERABLES Final Result Performing Organization Address [facility] Co de Phone Number [facility] [place] [address] * Phosphorus (08/16/2024 11:14 PM CDT) Pathologist [facility] Phosphorus, pl 2.5 2.3 - 4.5 mg/dL Blood 08/16/2024 11:1 4 PM CDT 08/17/2024 1:03 AM CDT Arley Cheung MD LAB BLOOD ORDERABLES Final Result Performing Organization Address City/[facility]/ZIP Co de Phone Number [facility] Department [place] [address] * Magnesium (08/16/2024 11:14 PM CDT) [facility] Magnesium 2.0 1.4 - 2.5 mg/dL Blood 08/16/2024 11:1 4 PM CDT 08/17/2024 1:03 AM CDT Arley Cheung MD LAB BLOOD ORDERABLES Final Result [facility] [place] [address] * (ABNORMAL) Hepatic function panel (08/16/2024 11:14 PM CDT) [facility] Bilirubin, total <0.2 0.1 - 1.2 mg/dL Comment:Reviewed Bilirubin, direct <0.2 0.1 - 0.3 mg/dL [facility] Protein, pl 6.6 6.5 - 8.5 g/dL [facility] Albumin 3.2(L) 3.5 - 5.0 g/dL [facility] Alk phos 111 40 - 130 Units/L [facility] ALT 12 7 - 55 Units/L [facility] AST 28 10 - 50 Units/L [facility] Blood 08/16/2024 11:1 4 PM CDT 08/17/2024 1:03 AM CDT Arley Cheung MD LAB BLOOD ORDERABLES Final Result [facility] [place] [address] * Basic metabolic panel (08/16/2024 11:14 PM CDT) [facility] Sodium 140 135 - 145 mmol/L Potassium, pl 3.8 3.3 - 4.9 mmol/L [facility] Chloride 106 97 - 110 mmol/L [facility] CO2 23 22 - 32 mmol/L [facility] Anion gap 11 2 - 15 mmol/L [facility] BUN 6 6 - 25 mg/dL [facility] Creatinine 0.81 0.80 - 1.30 mg/dL [facility] Glucose 188 70 - 199 mg/dL [facility] Comment: Interpretive Data Fasting glucose >/= [...] 2022. Calcium 8.9 8.5 - 10.3 mg/dL [facility] Blood 08/16/2024 11:1 4 PM CDT 08/17/2024 1:03 AM CDT us Arley Cheung MD LAB BLOOD ORDERABLES Final Result Performing Organization Address [facility]/ZIP Co de Phone Number [facility] [place] [address] * XR Outside Reference (08/16/2024 7:30 PM CDT) Impressions [facility] - 08/16/2024 7:30 PM CDT These images are for Reference purposes only and have not been reviewed by [facility]. There will be no report generated by a [facility] Radiologist. Narrative [facility] - 08/16/2024 7:30 PM CDT EXAMINATION: Images For Reference Purposes Only us Melecio Michelle MD IMG XR PROCEDURES Maisha l Result Performing Organization Address City/[facility]/ZIP Co de Phone Number [facility] * [...] images may or may not represent the [place] source data set and thus may contain [...] STUDY INITIALLY PERFORMED: 08/09/2024 at [facility]. TYPE OF STUDY: Multiple MRI/MRCP images of [...] STUDY INITIALLY PERFORMED: 08/09/2024 at [facility]. TYPE OF STUDY: Multiple MRI/MRCP images of [...] images may or may not represent the [place] source data set and thus may contain changes that may lower the accuracy of this second-opinion interpretation. Dictated by: Garrison Jiang M.D. The radiology attending physician has personally reviewed this study, and had reviewed and/or edited this written report and agrees with it. Electronically signed by: Yumiko Wilson M.D. Melecio Michelle MD [facility] [place] PROCEDURES Fin al Result * XR Outside Reference (08/16/2024 6:01 PM CDT) Impressions [facility] - 08/16/2024 6:01 PM CDT These images are for Reference purposes only and have not been reviewed by [facility]. There will be no report generated by a [facility] Radiologist. Narrative [facility] - 08/16/2024 6:01 PM CDT EXAMINATION: Images For Reference Purposes Only Melecio Michelle MD IM XR PROCEDURES Maisha l Result [facility] * XR Outside Reference (08/16/2024 6:00 PM CDT) Impressions [facility] - 08/16/2024 6:00 PM CDT These images are for Reference purposes only and have not been reviewed by [facility]. There will be no report generated by a [facility] Radiologist. Narrative [facility] - 08/16/2024 6:00 PM [...] report of this study generated by a [facility] Radiologist. Electronically signed by: Evelin Cho M.D. [...] report of this study generated by a [facility] Radiologist. Electronically signed by: Evelin Cho M.D. us Melecio Michelle MD IMG CT PROCEDURES Maisha l Result * Infection Prevention Lanny auris PCR, surveillance Axilla/Groin (08/16/2024 2:02 PM CDT) Lanny auris DNA Not Detected Not Detected [facility] Comment: Interpretive Data Testing performed by [facility] using the [employer] johnny 6800 Lanny auris assay. This assay detects DNA from Lanny auris using Real-Time PCR. This assay is laboratory developed and is not cleared by the [place] Food and Drug Administration. The performance characteristics have been verified by the [facility]. Axilla/Groin 08/16/2024 2:02 PM CDT 08/16/2024 2:36 PM CDT us Michael Claudio MD LAB MICROBIOLOGY - GENERAL ORDER DELIO Final Result [facility] [place] [address] [facility] * CT Chest Abdomen Pelvis W [...] testing Stool (08/16/2024 10:31 AM CDT) Pathologist [facility] Result Negative Negative Toxin Result Negative Negative [facility] C. diff result Negative, free toxin Negative, free toxin [facility] C. diff interp Negative for toxigenic Clostridioides (Clostridium) difficile. Analysis was performed using a glutamate dehydrogenase antigen detection assay combined with a C. difficile toxin detection assay. [facility] Stool 08/16/2024 10:3 1 AM CDT 08/16/2024 12:41 PM CDT us Arley Cheung MD LAB MICROBIOLOGY - GENERAL ORDERABLES Final Result [facility] [place] [address] * Calprotectin, fecal (08/16/2024 10:31 AM CDT) Pathologist [facility] Calprotectin, fecal <50.0 <50.0 (Normal) mcg/g [facility] Comment: Test Performed by: [facility] [address] [place] [id number] Calender Machine Operator: Rubio Michel Ph.D.; CLIA# [id number] Stool 08/16/2024 10:3 1 AM CDT 08/16/2024 1:01 PM CDT Arley Cheung MD LAB BODY FLUIDS AND STOOLS ORDERABLES Final Result Performing Organization Address [facility] Co de Phone Number [facility] Department [place] [address] [facility] * Norovirus PCR Stool (08/16/2024 10:31 AM CDT) Pathologist [facility] Norovirus GI RNA Not Detected Not Detected [facility] Norovirus GII RNA Not Detected [facility]ed [facility] Comment: Interpretive data: Testing performed at the [facility] using the [employer] Xpert Norovirus Assay. This assay uses nucleic [...] - GENERAL ORDERABLES Final Result [facility] [place] [address] [facility] * Stool culture Stool Rectum (08/16/2024 10:31 AM CDT) Pathologist [facility] Direct Specimen Exam Shiga Toxin Testing: Antigen detection assay for Shiga-toxin NEGATIVE for Shiga Toxin 1 and Shiga Toxin 2. Report Final Report: No growth of enteric bacterial pathogens [facility] Stool (Rectum) 08/16/2024 10 :31 AM CDT 08/16/2024 12:41 PM CDT Narrative [facility] - 08/20/2024 8:30 AM CDT Testing performed by [facility] ([phone]). Routine stool cultures include procedures to detect Salmonella, Shigella, Edwardsiella, Aeromonas, Pleisiomonas, Campylobacter, Yersinia, E. coli O157, and Shiga-like toxins. Vibrio is cultured only upon special request. If Vibrio is suspected, please call the laboratory at [phone]. Interpretive data was last updated October 03, 2016. Arley Cheung MD LAB MICROBIOLOGY - GENERAL ORDERABLES Final Result Performing Organization Address City/[facility] Co de Phone Number [facility] [place] [address] * Infection Prevention VRE Culture Stool (08/16/2024 10:27 AM CDT) Report Final Report: Negative Stool 08/16/2024 10:2 7 AM CDT 08/16/2024 2:55 PM CDT Narrative [facility] - 08/18/2024 6:13 PM CDT Surveillance culture for Infection Prevention purposes only; results indicate colonization, not infection requiring treatment. Testing performed by [facility] ([phone]). Arley Cheung MD LAB MICROBIOLOGY - GENERAL ORDERABLES Final Result Performing Organization Address City/[facility]/ZIP Co de Phone Number [facility] [place] [address] * Differential, auto (08/16/2024 5:16 AM CDT) Neutrophil abs 4.5 1.5 - 6.5 K/cumm Imm gran abs 0.0 0.0 - 0.1 K/cumm [facility] Lymphocyte abs 1.1 0.8 - 3.3 K/cumm [facility] Monocyte abs 0.7 0.2 - 0.8 K/cumm [facility] Eosinophil abs 0.1 0.0 - 0.5 K/cumm [facility] Basophil abs 0.1 0.0 - 0.1 K/cumm [facility] Neutrophil pct 68.8 % [facility] Comment: Interpretive Data Percent cell count reference ranges are not reported, since discordance with absolute values may lead to misinterpretation of CBC data. Current Interpretive Data was last revised on 2017. Imm gran pct 0.5 % [facility] Comment: Interpretive Data Percent cell count reference ranges are not reported, since discordance with absolute values may lead to misinterpretation of CBC data. Current Interpretive Data was last revised on 2017. Lymphocyte pct 16.7 % [facility] Comment: Interpretive Data Percent cell count reference ranges are not reported, since discordance with absolute values may lead to misinterpretation of CBC data. Current Interpretive Data was last revised on 2017. Monocyte pct 10.5 % [facility] Comment: Interpretive Data Percent cell count reference ranges are not reported, since discordance with absolute values may lead to misinterpretation of CBC data. Current Interpretive Data was last revised on 2017. Eosinophil pct 1.7 % [facility] Comment: Interpretive Data Percent cell count reference ranges are not reported, since discordance with absolute values may lead to misinterpretation of CBC data. Current Interpretive Data was last revised on 2017. Basophil pct 1.8 % [facility] Comment: Interpretive Data Percent cell count reference ranges are not reported, since discordance with absolute values may lead to misinterpretation of CBC data. Current Interpretive Data was last revised on 2017. Blood 08/16/2024 5:16 AM CDT 08/16/2024 5:50 AM CDT us John De Anda MD LAB BLOOD ORDERABLES Final Result [facility] [place] [address] * (ABNORMAL) Iron profile w/ IBC (08/16/2024 5:16 AM CDT) [facility] Iron 41(L) 50 - 150 mcg/dL TIBC 152(L) 250 - 400 mcg/dL [facility] Transferrin saturation 27 20 - 50 % [facility] Blood 08/16/2024 5:16 AM CDT 08/16/2024 5:50 AM CDT Arley Cheung MD LAB BLOOD ORDERABLES Final Result [facility] [place] [address] * (ABNORMAL) CBC with auto differential (08/16/2024 5:16 AM CDT) [facility] WBC 6.6 3.8 - 9.9 K/cumm Hgb 10.1(L) 13.0 - 17.5 g/dL [facility] Hct 31.3(L) 38.9 - 50.3 % [facility] Plt 710(H) 150 - 400 K/cumm [facility] MPV 8.8(L) 9.1 - 12.3 fL [facility] RBC 3.44(L) 4.30 - 5.80 M/cumm [facility] MCV 91.0 81.3 - 96.4 fL [facility] MCH 29.4 27.1 - 33.3 pg [facility] MCHC 32.3 32.3 - 35.7 g/dL [facility] RDW CV 17.6(H) 11.1 - 14.9 % [facility] RDW SD 58.5(H) 35.7 - 48.1 fL [facility] NRBC abs 0.00 0.00 - 0.01 K/cumm [facility] Blood 08/16/2024 5:16 AM CDT 08/16/2024 5:50 AM CDT us John De Anda MD LAB BLOOD ORDERABLES Final Result [facility] [place] [address] * Phosphorus (08/16/2024 5:16 AM CDT) Phosphorus, pl 3.0 2.3 - 4.5 mg/dL Blood 08/16/2024 5:16 AM CDT 08/16/2024 5:50 AM CDT us John De Anda MD LAB BLOOD ORDERABLES Final Result Performing Organization Address [facility] [place] [place] [address] * Magnesium (08/16/2024 5:16 AM CDT) Magnesium 2.1 1.4 - 2.5 mg/dL Blood 08/16/2024 5:16 AM CDT 08/16/2024 5:50 AM CDT us John De Anda MD LAB BLOOD ORDERABLES Final Result Performing Organization Address City/[facility] Co de Phone Number [facility] [place] [address] * Folate (08/16/2024 5:16 AM CDT) Folic acid >20.0 >=5.0 ng/mL Blood 08/16/2024 5:16 AM CDT 08/16/2024 5:50 AM CDT us Arley Cheung MD LAB BLOOD ORDERABLES Final Result [facility] [place] [address] * (ABNORMAL) Ferritin (08/16/2024 5:16 AM CDT) Pathologist [facility] Ferritin 527(H) 30 - 400 ng/mL Blood 08/16/2024 5:16 AM CDT 08/16/2024 5:50 AM CDT Arley Cheung MD LAB BLOOD ORDERABLES Final Result Performing Organization Address City/[facility]/[place] [address] * Vitamin B12 (08/16/2024 5:16 AM CDT) [facility] Vitamin B12 810 230 - 1,250 pg/mL Blood 08/16/2024 5:16 AM CDT 08/16/2024 5:50 AM CDT Arley Cheung MD LAB BLOOD ORDERABLES Final Result Performing Organization Address [facility] [place] [place] [address] * (ABNORMAL) Hepatic function panel (08/16/2024 5:16 AM CDT) [facility] Bilirubin, total 0.2 0.1 - 1.2 mg/dL Comment:Reviewed Bilirubin, direct <0.2 0.1 - 0.3 mg/dL [facility] Protein, pl 6.7 6.5 - 8.5 g/dL [facility] Albumin 3.4(L) 3.5 - 5.0 g/dL [facility] Alk phos 122 40 - 130 Units/L [facility] ALT 11 7 - 55 Units/L [facility] AST 20 10 - 50 Units/L [facility] Blood 08/16/2024 5:16 AM CDT 08/16/2024 5:50 AM CDT us Arley Cheung MD LAB BLOOD ORDERABLES Final Result Performing Organization Address City/[facility]/ZIP Co de Phone Number [facility] Department [place] [address] * ECG 12 lead (08/16/2024 1:04 AM CDT) Ventricular Rate EKG/Min [address] [facility] Atrial Rate 104 BPM [facility] MN-Interval (MSEC) [address] [facility] QRS-Interval (MSEC) [address] [facility] QT-Interval (MSEC) 352 ms [facility] QTc 462 ms [facility] P [place] 49 degrees [facility] R [place] -23 degrees [facility] T [place] 31 degrees [facility] Diagnosis Sinus tachycardia Otherwise normal ECG When compared with ECG of 24-SEP-2019 19:36, No significant change was found Confirmed by Dakotah Khan MD ([id number]) on 08/21/2024 2:38:38 PM [facility] 08/16/2024 1:04 AM CDT 08/21/2024 2:38 PM CDT us John De Anda MD ECG ORDERABLES Final Resul t Performing Organization Address [facility] Co de Phone Number [facility] * Urinalysis reflex to microscopic and culture Urine (08/16/2024 12:17 AM CDT) Color, ur Yellow Yellow Clarity, ur Clear Clear [facility] Specific gravity, ur 1.018 1.003 - 1.030 [facility] pH, urine 7.0 [facility] Comment: Interpretive Data U rine pH is affected by diet, medications, systemic acid-base disturbances, and renal tubular function. pH may affect urinary stone formation. For example, urine pH below 6.0 may help reduce the tendency for calcium phosphate stones and pH greater than 6.0 may reduce the tendency for uric acid stone formation. Source: [employer] Current Interpretive Data was last revised on 2017 Protein, ur ql Negative Negative [facility] Glucose, ur ql Negative Negative [facility] Ketones, ur Negative Negative [facility] Bilirubin, ur Negative Negative [facility] Blood, ur Negative Negative [facility] Urobilinogen, ur <2.0 <2.0 mg/dL [facility] Nitrite, ur Negative Negative [facility] Leukocyte esterase, ur Negative Negative [facility] UA reflex comment Reflex conditions for microscopic UA and culture not met. [facility] Urine 08/16/2024 12:1 7 AM CDT 08/16/2024 1:21 AM CDT us John De Anda MD LAB MICROBIOLOGY - GENERAL ORDERABLES Final Result [facility] Department [place] [address] * Respiratory pathogen panel Nasopharyngeal (08/16/2024 12:17 AM CDT) Pathologist [facility] Influenza A RNA Not Detected Not Detected Influenza B RNA Not Detected Not Detected [facility] RSV RNA Not Detected Not Detected [facility] COVID-19 RNA Not Detected Not Detected [facility] Coronavirus 229E RNA Not Detected Not Detected [facility] Coronavirus HKU1 RNA Not Detected Not Detected [facility] Coronavirus NL63 RNA Not Detected Not Detected [facility] Coronavirus OC43 RNA Not Detected Not Detected [facility] Adenovirus DNA Not Detected Not Detected [facility] Metapneumovirus RNA Not Detected Not Detected [facility] Rhinovirus/Enterov irus RNA Not Detected Not Detected [facility] Parainfluenza 1 RNA Not Detected Not Detected [facility] Parainfluenza 2 RNA Not Detected Not Detected [facility] Parainfluenza 3 RNA Not Detected Not Detected [facility] Parainfluenza 4 RNA Not Detected Not Detected [facility] B. pertussis DNA Not Detected Not Detected [facility] B. parapertussis DNA Not Detected Not Detected [facility] C. pneumoniae DNA Not Detected Not Detected [facility] M. pneumoniae DNA Not Detected Not Detected [facility] Nasopharyngeal 08/16/2024 12 :17 AM CDT 08/16/2024 1:27 AM CDT [facility] - 08/16/2024 2:22 AM CDT Is the Patient experiencing symptoms consistent with COVID?->No Surveillance testing for transplant patient?->No Interpretive Data The food[employer]de FilmArray Respiratory Panel (RP2.1) assay is a [...] assay has FDA clearance for testing of COTTON BU[employer]ER swabs. The performance of additional specimen types has been assessed by the performing laboratory. The performance characteristics of this assay have been determined by [facility]. Current interpretive data was last revised on 22. us Arley Cheung MD LAB MICROBIOLOGY - GENERAL ORDERABLES Final Result Performing Organization Address [facility] Co de Phone Number [facility] Department [place] [address] * eGFR (08/15/2024 11:28 PM CDT) Pathologist [facility] eGFR 87 >=60 mL/min/1. 73 m2 Comment: [...] BLOOD ORDERABLES Final Result Performing Organization Address [facility]/ZIP Co de Phone Number [facility] Department [place] [address] * (ABNORMAL) Differential, auto (08/15/2024 11:28 PM CDT) [facility] Neutrophil abs 7.9(H) 1.5 - 6.5 K/cumm Imm gran abs 0.1 0.0 - 0.1 K/cumm [facility] Lymphocyte abs 0.6(L) 0.8 - 3.3 K/cumm [facility] Monocyte abs 0.7 0.2 - 0.8 K/cumm [facility] Eosinophil abs 0.1 0.0 - 0.5 K/cumm [facility] Basophil abs 0.1 0.0 - 0.1 K/cumm [facility] Neutrophil pct 84.3 % [facility] Comment: Interpretive Data Percent cell count reference ranges are not reported, since discordance with absolute values may lead to misinterpretation of CBC data. Current Interpretive Data was last revised on 2017. Imm gran pct 0.7 % [facility] Comment: Interpretive Data Percent cell count reference ranges are not reported, since discordance with absolute values may lead to misinterpretation of CBC data. Current Interpretive Data was last revised on 2017. Lymphocyte pct 6.1 % [facility] Comment: Interpretive Data Percent cell count reference ranges are not reported, since discordance with absolute values may lead to misinterpretation of CBC data. Current Interpretive Data was last revised on 2017. Monocyte pct 7.1 % [facility] Comment: Interpretive Data Percent cell count reference ranges are not reported, since discordance with absolute values may lead to misinterpretation of CBC data. Current Interpretive Data was last revised on 2017. Eosinophil pct 0.7 % [facility] Comment: Interpretive Data Percent cell count reference ranges are not reported, since discordance with absolute values may lead to misinterpretation of CBC data. Current Interpretive Data was last revised on 2017. Basophil pct 1.1 % [facility] Comment: Interpretive Data Percent cell count reference ranges are not reported, since discordance with absolute values may lead to misinterpretation of CBC data. Current Interpretive Data was last revised on 2017. Blood 08/15/2024 11:2 8 PM CDT 08/15/2024 11:31 PM CDT us John De Anda MD LAB BLOOD ORDERABLES Final Result [facility] [place] [address] * Thyroid Function [place] (08/15/2024 11:28 PM CDT) [facility] TSH 0.72 0.30 - 4.20 mcIUnit/mL Blood 08/15/2024 11:2 8 PM CDT 08/15/2024 11:31 PM CDT John De Anda MD LAB BLOOD ORDERABLES Final Result Performing Organization Address [facility] Co de Phone Number [facility] Department [place] [address] * HIV 1/2 Antibody plus p24 Antigen Blood (08/15/2024 11:28 PM CDT) [facility] HIV 1/2 ab + p24 ag Nonreactive [...] GENERAL ORDERABLES Final Result Performing Organization Address [facility] Co de Phone Number [facility] [place] [address] * (ABNORMAL) CBC with auto differential (08/15/2024 11:28 PM CDT) [facility] WBC 9.4 3.8 - 9.9 K/cumm Hgb 9.4(L) 13.0 - 17.5 g/dL [facility] Hct 28.3(L) 38.9 - 50.3 % [facility] Plt 654(H) 150 - 400 K/cumm [facility] MPV 8.8(L) 9.1 - 12.3 fL [facility] RBC 3.11(L) 4.30 - 5.80 M/cumm [facility] MCV 91.0 81.3 - 96.4 fL [facility] MCH 30.2 27.1 - 33.3 pg [facility] MCHC 33.2 32.3 - 35.7 g/dL [facility] RDW CV 17.7(H) 11.1 - 14.9 % [facility] RDW SD 59.1(H) 35.7 - 48.1 fL [facility] NRBC abs 0.00 0.00 - 0.01 K/cumm [facility] Blood 08/15/2024 11:2 8 PM CDT 08/15/2024 11:31 PM CDT John De Anda MD LAB BLOOD ORDERABLES Final Result Performing Organization Address [facility] Co de Phone Number [facility] [place] [address] * Hepatitis C antibody Blood (08/15/2024 11:28 PM CDT) Pathologist [facility] Hep C Ab Nonreactive Nonreactive Comment:Antibodies to HCV no t detected. Does NOT exclude the possibility of recent exposure to HCV. Current interpretive data was last revised on 22 Blood 08/15/2024 11:2 8 PM CDT 08/15/2024 11:33 PM CDT John De Anda MD LAB MICROBIOLOGY - GENERAL ORDERABLES Final Result [facility] [place] [address] * RPR Blood (08/15/2024 11:28 PM CDT) RPR Nonreactive Nonreactive Blood 08/15/2024 11:2 8 PM CDT 08/15/2024 11:31 PM CDT us John De Anda MD LAB MICROBIOLOGY - GENERAL ORDERABLES Final Result Performing Organization Address [facility] [place] [place] [address] * Hepatitis B Surface Antigen Blood (08/15/2024 11:28 PM CDT) HepBsAg Nonreactive Nonreactive Blood 08/15/2024 11:2 8 PM CDT 08/15/2024 11:33 PM CDT John De Anda MD LAB MICROBIOLOGY - GENERAL ORDERABLES Final Result Performing Organization Address [facility] [place] [address] * aPTT (08/15/2024 11:28 PM CDT) Pathologist [facility] aPTT 35 28 - 38 sec Comment: Interpretive Data Heparin therapeutic range: 66.0 - 100.0 seconds. Range based on correlation with therapeutic heparin activity range of 0.3 - 0.7 Units/mL. Current interpretive data was last revised on 2023. Blood 08/15/2024 11:2 8 PM CDT 08/15/2024 11:35 PM CDT John De Anda MD LAB BLOOD ORDERABLES Final Result Performing Organization Address [facility] de Phone Number [facility] [place] [address] * Protime-INR (08/15/2024 11:28 PM CDT) PT 12.6 9.7 - 13.0 sec INR 1.16 0.90 - 1.20 [facility] Comment: Interpretive data Oral anticoagulant therapeutic [...] BLOOD ORDERABLES Final Result Performing Organization Address City/[facility]/[place] [address] * Type and screen (08/15/2024 11:28 PM CDT) ABO Rh O Positive [place], indirect Negative [facility] Blood 08/15/2024 11:2 8 PM CDT 08/15/2024 11:36 PM CDT Narrative [facility] - 08/16/2024 12:23 AM CDT Has the patient had Daratumumab or Isatuximab in the past 6 months?->Unknown John De Anda MD LAB BLOOD BANK TEST ORDERAB LES Final Result Performing Organization Address [facility] [place] [address] * (ABNORMAL) Phosphorus (08/15/2024 11:28 PM CDT) Pathologist [facility] Phosphorus, pl 2.0(L) 2.3 - 4.5 mg/dL Blood 08/15/2024 11:2 8 PM CDT 08/15/2024 11:32 PM CDT John De Anda MD LAB BLOOD ORDERABLES Final Result Performing Organization Address [facility] [place] [place] [address] * Magnesium (08/15/2024 11:28 PM CDT) Pathologist [facility] Magnesium 1.8 1.4 - 2.5 mg/dL Blood 08/15/2024 11:2 8 PM CDT 08/15/2024 11:32 PM CDT Result [facility] John De Anda MD LAB BLOOD ORDERABLES Final Result Performing Organization Address [facility] de Phone Number [facility] [place] [address] * Lipase (08/15/2024 11:28 PM CDT) [facility] Lipase 24 10 - 99 Units/L Blood 08/15/2024 11:2 8 PM CDT 08/15/2024 11:31 PM CDT Result [facility] John De Anda MD LAB BLOOD ORDERABLES Final Result Performing Organization Address [facility] de Phone Number [facility] [place] [address] * Hemoglobin A1c (08/15/2024 11:28 PM CDT) [facility] Hgb A1C 5.2 4.0 - 5.6 % Estimated Average Glucose 103 mg/dL [facility] Comment: The ADA recommends reporting an [...] BLOOD ORDERABLES Final Result Performing Organization Address [facility] Co de Phone Number [facility] [place] [address] * (ABNORMAL) Lipid panel (08/15/2024 11:28 PM [...] revised on 2018. Triglycerides 93 <=149 mg/dL [facility] Comment: Interpretive Data Ages < or [...] revised on 2018. HDL 27(L) >=40 mg/dL [facility] Comment: Interpretive Data Ages < or [...] 2018. LDL, calculated 45 <=129 mg/dL [facility] Comment: Interpretive Data Ages < or [...] BLOOD ORDERABLES Final Result [facility] [place] [address] * (ABNORMAL) Comprehensive metabolic panel (08/15/2024 11:28 PM CDT) Sodium 132(L) 135 - 145 mmol/L Potassium, pl 3.8 3.3 - 4.9 mmol/L [facility] Chloride 99 97 - 110 mmol/L [facility] CO2 24 22 - 32 mmol/L [facility] Anion gap 9 2 - 15 mmol/L [facility] BUN 7 6 - 25 mg/dL [facility] Creatinine 1.01 0.80 - 1.30 mg/dL [facility] Glucose 122 70 - 199 mg/dL [facility] Comment: Interpretive Data Fasting glucose >/= [...] 2022. Calcium 9.0 8.5 - 10.3 mg/dL [facility] Bilirubin, total <0.2 0.1 - 1.2 mg/dL [facility] Protein, pl 6.7 6.5 - 8.5 g/dL [facility] Albumin 3.2(L) 3.5 - 5.0 g/dL [facility] Alk phos 122 40 - 130 Units/L [facility] ALT 12 7 - 55 Units/L [facility] AST 19 10 - 50 Units/L [facility] Blood 08/15/2024 11:2 8 PM CDT 08/15/2024 11:32 PM CDT us John De Anda MD LAB BLOOD ORDERABLES Final Result [facility] [place] [address] from Last 3 Months Insurance [facility] Address: [address] [address] [place] [address] [facility] MEDIC[facility] ADVANTAGE Advance Directives For more information, please contact: [phone] * Full Code (Latest Code Status on [...] 4:45 AM 06/13/2023 8:44 PM Care Teams Public Relations Consultant Relationship Specialty Start Date End Date Ronnell Escobar NP [address] [place] [id number] PCP - General Nurse Practitioner 08/16/24
--- OUTSIDE RECORDS SUMMARY | 2024-11-04 00:45 | XMS_ITS | Encounter Summary ---
Author Organization [facility] Healthcare Address [address] [place] [address] Care Team Providers Care Data Specialist Name Role Phone Don Walton PA Primary Care Provider Ronnell Escobar NP Primary Care Provider [phone] Savanah Galvez RN Unavailable [phone] Encounter Details Date Type Department Care Team (Late st Contact Info) Description 01/25/2022 Orders Only [facility] [address] [place] [address] Jordana Chambers MD [address] [place] [id number] Social History Tobacco Use Types Packs/Day Years [...] How often do you attend chur or religion services? 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 difficile suspected 08/16/2024 08/16/202408/16 2:48 PM [...] documented as of this encounter Care Teams Data Specialist Relationship Specialty Start Date End Date Don Walton PA [address] [place] [address] PCP - General Physician Photographer'S Assistant 12/28/21 08/15/24 Ronnell Escobar NP [address] [place] [address] PCP - General Nurse Practitioner 08/16/24 Savanah Galvez, RN [address] [facility] [address] [place] [address] SHOP Outpatient Machine Fastener 08/22/24 08/25/24 documented as of this encounter
--- OUTSIDE RECORDS SUMMARY | 2024-11-04 00:45 | XMS_ITS | Clinical Summary ---
Author Organization [facility] Address [address] [facility] [address] [place] [address] Phone Care Team Providers Care Glazier Artist Name Role Phone Lamberto Barker Nasra RUCKER Primary Care Provider [phone] Social History Tobacco Use Types Packs/Day Years Used Date Smoking Tobacco: Never Assessed Sex and Gender Information Value Date Recorded Sex Assigned at Not on file Legal Sex Male 8:46 AM CDT Gender Identity Not on file Sexual Orientation Not on file Plan of Treatment Not on file Insurance [facility] MEDICARE C [employer] Care Teams Glazier Artist Relationship Specialty Start Date End Date Lamberto Barker DO [address] [place] [address] PCP - General Internal Medicine 09/18/19
--- OUTSIDE RECORDS SUMMARY | 2024-11-04 00:45 | XMS_ITS | Referral Summary ---
Author Organization [facility] Address [address] [place] [address] Care Team Providers Care Slide Fasteners Inspector Name Role Phone Ronnell Escobar NP Primary Care Provider [phone] Encounters Date Type Department Care Team Description 10/31/2024 Documentation [facility] Case Management [address] [place] [id number] Izabella Pérez 10/15/2024 Telephone [facility] [address] [place] [address] Advanced Medicine [facility] [place] [address] [place] [phone] Samson Esteban 09/30/2024 Telephone [facility] Advanced Medicine [facility] [place] [address] [place] [address] Samson sEteban Scheduling Appointments 09/13/2024 2:28 PM CDT - 09/19/2024 12:27 PM CDT Hospital Encounter [address] [address] Melyssa Pastor MD Potluri, Sobhana Krishna, MD Alcohol withdrawal syndrome without complication (HCC) (Primary Dx); Acute on chronic pancreatitis (HCC) Discharge Disposition: Discharge to an Rehab facility 08/28/2024 Telephone [facility] Advanced Medicine 12th [place] [address] [place] [phone] Carlito, Samson imaging due 08/28/2024 Orders Only [facility] [address] [facility] 12th [place] [address] [place] [phone] Kenneth Loya MD Necrotizing pancreatitis (Primary Dx) 08/26/2024 SHOP/CHAP Initial Outreach [facility] [address] [place] [phone] Savanah Galvez, DALE 08/23/2024 SHOP/CHAP Initial Outreach [facility] [address] [place] [phone] Savanah Galvez RN 08/23/2024 Documentation [facility] [address] [facility] [address], [address] [place] [phone] Sadaf Yates RN GI f/u recs 08/22/2024 SHOP/CHAP Initial Outreach [facility] [address] [place] [phone] Savanah Galvez RN 08/22/2024 SHOP/CHAP Initial Eligibility Review [facility] [address] [place] [phone] Savanah Galvez RN 08/15/2024 9:03 PM CDT - 08/21/2024 4:12 PM CDT Hospital Encounter [address] [phone] John De Anda MD Thoelke, Mark S W., MD Discharge Disposition: Discharge to home or self care from Last 3 Months Allergies Active Allergy Reactions Criticality Noted Date Comments Ciprofloxacin Hives Medium 06/02/2023 Patient stated he has previously tolerated PO. 06/02/23 had redness and hives after IV dose. Penicillins Rash Medium 05/08/2019 Ibyobopqgxqo-Anmavvkmeg-Iqq trs Angioedema High 09/17/[address] [...] constipation 60 tablet 07/13/19 22 Active multivit mprrvrbi-tgex-SA-noe cium (THERA-M) 9 mg iron-400 mcg tablet [...] 06/10/2023 Assessment & Plan (06/12/2023 2:18 PM STAGECRAFT PROFESSOR): Patient reports feeling constipated, gassy and bloated. [...] 06/08/2023 Assessment & Plan (06/09/2023 1:55 PM STAGECRAFT PROFESSOR): Resolved. Acute pancreatitis, unspecif ied complication status, unspecified pancreatitis type 06/04/2023 Assessment & Plan (06/05/2023 12:45 PM STAGECRAFT PROFESSOR): Longstanding bouts of pancreatitis originally from EtOH [...] 06/04/2023 Assessment & Plan (06/05/2023 12:48 PM STAGECRAFT PROFESSOR): Likely from pancreatitis. Also tender to palpation initially so may be a musculoskeletal component from dry heaving. Trops negative. EKG no ischemic changes. He reports hx of FL in the past, unclear circumstances. He had an exercise stress test in spring at an outside facility that he says was normal. Cont ASA. Gram-negative bacteremia 04/11/2023 Assessment & Plan (04/13/2023 7:02 PM STAGECRAFT PROFESSOR): - due to cholangitis - BCx + for E coli and K. Pneumoniae - repeat BCx drawn 04/11, ngtd - pansensitive organisms - d/c home today with flagyl/cipro Cholangitis 04/10/2023 Assessment & Plan (04/12/2023 6:21 PM STAGECRAFT PROFESSOR): - Improving - 04/10 ERCP - removal of two migrates stents with biliary obstruction and replaced with 2 new stents in biliary stricture - PRN analgesics and antiemetics Assessment & Plan (04/10/2023 2:40 AM STAGECRAFT PROFESSOR): -meets [place] criteria for acute cholangitis based [...] 01/04/2022 Assessment & Plan (06/13/2023 2:35 PM STAGECRAFT PROFESSOR): Recently admitted from 06/04-06/05/23 after ERCP on [...] (01/05/2022): Added automatically from request for surgery [id number] Assessment & Plan (04/11/2023 3:57 PM STAGECRAFT PROFESSOR): - improving -2/2 stent migration and resultant biliary obstruction Assessment & Plan (04/10/2023 2:27 AM STAGECRAFT PROFESSOR): -2/2 stent migration and resultant biliary obstruction -mgmt as above -repeat HFP in AM 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 Overview (11/30/2021): Added automatically from request for surgery [id number] Encounter for replacement of biliary stent 11/30 Overview (11/30/2021): Added automatically from request for surgery [id number] 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 Pancreatic pseudocyst 07/26/2021 Severe sepsis 07/08/2021 Assessment & Plan (07/13/2021 9:43 AM STAGECRAFT PROFESSOR): Pt elevated temp on 07/07 overnight 38.1 [...] infection Assessment & Plan (07/12/2021 9:40 AM STAGECRAFT PROFESSOR): Pt elevated temp on 2 overnight 38.1 [...] infection Assessment & Plan (07/11/2021 10:55 AM STAGECRAFT PROFESSOR): Pt elevated temp on 2 overnight 38.1 [...] bed Assessment & Plan (07/10/2021 9:10 AM STAGECRAFT PROFESSOR): Pt elevated temp on 209 overnight 38.1 [...] daily Assessment & Plan (07/09/2021 2:23 PM STAGECRAFT PROFESSOR): Pt elevated temp on 07/07 overnight 38.1 [...] daily Assessment & Plan (07/08/2021 1:53 PM STAGECRAFT PROFESSOR): Pt elevated temp overnight 38.1 max, hypotensive [...] 07/07/2021 Assessment & Plan (07/13/2021 9:43 AM STAGECRAFT PROFESSOR): Dobbhoff placed 07/08, tube feeding to initiated Osmolite 1.5 at 55mL/hr over 24h via NJ tube continuous via pump. Flush with 150mL water q4h. Now at goal of 55cc/hr. Can cycle at home as instructed. Will continue TF until follow up with GI as outpatient Assessment & Plan (07/12/2021 9:39 AM STAGECRAFT PROFESSOR): Cherelle placed 07/08, tube feeding to initiated Osmolite 1.5 at 55mL/hr over 24h via NJ tube continuous via pump. Flush with 150mL water q4h. Now at goal of 55cc/hr. Can cycle at home as instructed. Will continue TF until follow up with GI as outpatient Assessment & Plan (07/11/2021 10:55 AM STAGECRAFT PROFESSOR): Cherelle placed 07/08, tube feeding to initiated [...] Phos Assessment & Plan (07/10/2021 9:08 AM STAGECRAFT PROFESSOR): Cherelle placed 07/08, tube feeding to initiated [...] Phos Assessment & Plan (07/09/2021 2:25 PM STAGECRAFT PROFESSOR): Cherelle placed 07/08, tube feeding to initiated [...] prn Assessment & Plan (07/08/2021 1:11 PM STAGECRAFT PROFESSOR): Cherelle placed 07/08, tube feeding to initiate TF recommendations: Goal: Osmolite 1.5 at 55mL/hr over 24h via NJ tube continuous via pump. Flush with 150mL water q4h. Initiate TF at 10mL/hr and increase by 10mL q4h until goal rate is reached Chronic pancreatitis, unspecified pancreatitis t ype 07/06/2021 Assessment & Plan (07/13/2021 9:42 AM STAGECRAFT PROFESSOR): Ongoing acute episode of (developing) chronic pancreatitis. [...] home Assessment & Plan (07/12/2021 9:38 AM STAGECRAFT PROFESSOR): Ongoing acute episode of (developing) chronic pancreatitis. [...] 07/13 Assessment & Plan (07/11/2021 10:53 AM STAGECRAFT PROFESSOR): Ongoing acute episode of (developing) chronic pancreatitis. [...] discharge Assessment & Plan (07/10/2021 9:07 AM STAGECRAFT PROFESSOR): Ongoing acute episode of developing chronic pancreatitis. [...] feedings Assessment & Plan (07/09/2021 2:30 PM STAGECRAFT PROFESSOR): Ongoing acute episode of chronic pancreatitis. Just [...] CTM Assessment & Plan (07/08/2021 1:49 PM STAGECRAFT PROFESSOR): Ongoing acute episode of chronic pancreatitis. Just [...] plan Assessment & Plan (07/07/2021 11:22 AM STAGECRAFT PROFESSOR): Ongoing acute episode of chronic pancreatitis. Just [...] plan Assessment & Plan (07/06/2021 5:30 PM STAGECRAFT PROFESSOR): Ongoing acute episode of chronic pancreatitis. Just [...] 07/06/2021 Assessment & Plan (07/13/2021 9:42 AM STAGECRAFT PROFESSOR): Likely ATN related to hypotensive episode. Cr peaked at Cr at 2.31, now back to baseline after aggressive IVF and now tolerating TF. Assessment & Plan (07/12/2021 9:36 AM STAGECRAFT PROFESSOR): Likely ATN related to hypotensive episode. Cr peaked at Cr at 2.31, now back to baseline after aggressive IVF and now tolerating TF. Assessment & Plan (07/11/2021 10:54 AM STAGECRAFT PROFESSOR): Likely ATN related to hypotensive episode. Cr peaked at Cr at 2.31, now back to baseline after aggressive IVF, continue to monitor bmp, continue fluids Assessment & Plan (07/10/2021 9:08 AM STAGECRAFT PROFESSOR): Likely ATN related to hypotensive episode. Cr peaked at Cr at 2.31, now back to baseline after aggressive IVF, continue to monitor bmp, continue fluids Assessment & Plan (07/09/2021 2:29 PM STAGECRAFT PROFESSOR): Cr at baseline after aggressive IVF, continue to monitor bmp, continue fluids Assessment & Plan (07/08/2021 1:10 PM STAGECRAFT PROFESSOR): Cr baseline 0.8 now up to 1.3 on arrival due to po intolerance Aggressive IVF will monitor urine output Today net fluid intake 191 Cr trended up to 2.31 continue aggressive fluids Daily bmp Continue IVF Assessment & Plan (07/07/2021 11:19 AM STAGECRAFT PROFESSOR): Cr baseline 0.8 now up to 1.3 on arrival due to po intolerance Aggressive IVF will monitor urine output Today net fluid intake 191 Cr 1.05 improving with fluids Daily bmp Continue IVF Assessment & Plan (07/06/2021 5:39 PM STAGECRAFT PROFESSOR): Cr baseline 0.8 now up to 1.3 on arrival due to po intolerance Aggressive IVF will monitor urine output Alcohol dependence 06/25/2021 Assessment & Plan (06/07/2023 5:01 AM STAGECRAFT PROFESSOR): Last drink on and he reports being [...] program Assessment & Plan (07/13/2021 9:42 AM STAGECRAFT PROFESSOR): Has a long history of alcohol use [...] Group Assessment & Plan (07/12/2021 9:36 AM STAGECRAFT PROFESSOR): Has a long history of alcohol use [...] Group Assessment & Plan (07/11/2021 10:54 AM STAGECRAFT PROFESSOR): Has a long history of alcohol use [...] Group Assessment & Plan (07/10/2021 9:05 AM STAGECRAFT PROFESSOR): Has a long history of alcohol use [...] Group Assessment & Plan (07/09/2021 2:33 PM STAGECRAFT PROFESSOR): Has a long history of alcohol use [...] Group Assessment & Plan (07/08/2021 1:06 PM STAGECRAFT PROFESSOR): Has a long history of alcohol use with dependence. He states he has not had a drink since before his ERCP 06/22/2021 and has been on Vivitrol injections. His ethanol level on arrival to the ED is negative Plan to continue EtOH cessation and support with outpatient naltrexone therapy. Assessment & Plan (07/07/2021 11:13 AM STAGECRAFT PROFESSOR): Has a long history of alcohol use with dependence. He states he has not had a drink since before his ERCP 06/22/2021 and has been on Vivitrol injections. His ethanol level on arrival to the ED is negative Plan to continue EtOH cessation and support with outpatient naltrexone therapy. Assessment & Plan (07/06/2021 5:22 PM STAGECRAFT PROFESSOR): Has a long history of alcohol use with dependence. He states he has not had a drink since before his ERCP 06/22/2021 and has been on Vivitrol injections. His ethanol level on arrival to the ED is negative Plan to continue EtOH cessation and support with outpatient naltrexone therapy Assessment & Plan (06/28/2021 11:39 AM STAGECRAFT PROFESSOR): Long standing hx of alcohol dependence with [...] needed Assessment & Plan (06/27/2021 11:47 AM STAGECRAFT PROFESSOR): Long standing hx of alcohol dependence with [...] needed Assessment & Plan (06/26/2021 11:59 AM STAGECRAFT PROFESSOR): Long standing hx of alcohol dependence with hx of short term remission. Last drink was 06/17. States he usually drinks hard liquor shot. Denies hx of seizure or delirium. On vivitrol but did not receive this month's shot due to being on analgesic for post ERCP pain control. -thiamine -folate -MVI -ciwa protocol - Ativan Hypertension 06/25/2021 Assessment & Plan (06/07/2023 5:06 AM STAGECRAFT PROFESSOR): Markedly hypertensive on ED arrival in the setting of pain -Continue home Amlodipine 10 mg qday and losartan 25 mg qday Assessment & Plan (06/05/2023 12:47 PM STAGECRAFT PROFESSOR): Hypertensive initially from pain. Improved today. Cont home meds. Assessment & Plan (04/12/2023 6:21 PM STAGECRAFT PROFESSOR): -continue norvasc Assessment & Plan (04/10/2023 2:31 AM STAGECRAFT PROFESSOR): -resume norvasc in AM Assessment & Plan (01/11/2022 11:23 AM CDT): Continue norvasc Assessment & Plan (01/10/2022 11:40 AM CDT): Continue norvasc Assessment & Plan (07/13/2021 9:43 AM STAGECRAFT PROFESSOR): Continue to hold home lisinopril on account of recent hypotension/JOSE. With low normotensive BP will discontinue lisinopril. Follow up with PCP in 2-4 weeks to re evaluate restarting if needed Assessment & Plan (07/12/2021 9:38 AM STAGECRAFT PROFESSOR): Continue to hold home lisinopril on account of recent hypotension/JOSE. BP normal, may not require lisinopril on discharge. Assessment & Plan (07/11/2021 10:54 AM STAGECRAFT PROFESSOR): Continue to hold home lisinopril on account of recent hypotension/JOSE. BP normal, may not require lisinopril on discharge. Assessment & Plan (07/10/2021 9:06 AM STAGECRAFT PROFESSOR): Continue to hold home lisinopril on account of recent hypotension Assessment & Plan (07/09/2021 2:32 PM STAGECRAFT PROFESSOR): Continue to hold home lisinopril until more stable BP Assessment & Plan (07/08/2021 1:06 PM STAGECRAFT PROFESSOR): BP hypotensive overnight hold antihypertensives at this time. Assessment & Plan (07/07/2021 11:15 AM STAGECRAFT PROFESSOR): BP on remain normotensive Continue lisinopril and pain control Assessment & Plan (07/06/2021 5:30 PM STAGECRAFT PROFESSOR): BP on arrival normotensive Continue lisinopril and pain control Assessment & Plan (06/28/2021 11:39 AM STAGECRAFT PROFESSOR): Continue home lisinopril 40 mg -Monitor BP -BP stable Assessment & Plan (06/27/2021 11:48 AM STAGECRAFT PROFESSOR): Continue home lisinopril 40 mg -Monitor BP/Cr -BP stable Assessment & Plan (06/25/2021 4:55 PM STAGECRAFT PROFESSOR): Continue home lisinopril 40 mg -Monitor BP/Cr -Daily BMP Tobacco abuse 06/25/2021 Major depressive disorder 06/25/2021 Assessment & Plan (06/07/2023 5:07 AM STAGECRAFT PROFESSOR): Continue home duloxetine 30 mg BID and trazodone 50 mg qhs Assessment & Plan (06/04/2023 11:58 AM STAGECRAFT PROFESSOR): Cont home meds Assessment & Plan (01/11/2022 11:23 AM CDT): Continue duloxetine scheduled and trazodone prn Assessment & Plan (01/10/2022 11:40 AM CDT): Continue duloxetine scheduled and trazodone prn Assessment & Plan (07/13/2021 9:43 AM STAGECRAFT PROFESSOR): Most certainly contributing to his long standing alcohol use. Continue home meds duloxetine and trazodone Assessment & Plan (07/12/2021 9:38 AM STAGECRAFT PROFESSOR): Most certainly contributing to his long standing alcohol use. Continue home meds duloxetine and trazodone Assessment & Plan (07/11/2021 10:54 AM STAGECRAFT PROFESSOR): Most certainly contributing to his long standing alcohol use. Continue home meds duloxetine and trazodone Assessment & Plan (07/10/2021 9:06 AM STAGECRAFT PROFESSOR): Most certainly contributing to his long standing alcohol use. Continue home meds duloxetine and trazodone Assessment & Plan (07/09/2021 2:30 PM STAGECRAFT PROFESSOR): Most certainly contributing to his long standing alcohol use now with cessation Continue home meds duloxetine and trazodone Assessment & Plan (07/08/2021 1:09 PM STAGECRAFT PROFESSOR): Most certainly contributing to his long standing alcohol use now with cessation Continue home meds duloxetine and trazodone Assessment & Plan (07/07/2021 11:16 AM STAGECRAFT PROFESSOR): Most certainly contributing to his long standing alcohol use now with cessation Continue home meds duloxetine and trazodone Assessment & Plan (07/06/2021 5:32 PM STAGECRAFT PROFESSOR): Most certainly contributing to his long standing alcohol use now with cessation Continue home meds duloxetine and trazodone Assessment & Plan (06/28/2021 11:39 AM STAGECRAFT PROFESSOR): Continue home Trazodone 50 mg, Cymbalta 30 mg Resume Biofeedback at discharge Assessment & Plan (06/27/2021 11:48 AM STAGECRAFT PROFESSOR): Continue home Trazodone 50 mg, Cymbalta 30 mg Resume Biofeedback at discharge Assessment & Plan (06/25/2021 4:57 PM STAGECRAFT PROFESSOR): Continue home Trazodone 50 mg, Cymbalta 30 mg Resume Biofeedback at discharge Pancreatic duct obstruction 06/11/2021 Overview (06/11/2021): Added automatically from request for surgery [id number] Abdominal pain 06/11/2021 Overview (06/11/2021): Added automatically from request for surgery [id number] Necrotizing pancreatitis 10/21/2019 Therapeutic opioid induced constipation 10/21/19 20 Assessment & Plan (07/13/2021 9:44 AM STAGECRAFT PROFESSOR): Continue bowel regimen Assessment & Plan (07/12/2021 9:41 AM STAGECRAFT PROFESSOR): Bowel regimen ordered without BM. Will titrate bowel regimen Assessment & Plan (07/11/2021 10:58 AM STAGECRAFT PROFESSOR): Bowel regimen ordered Assessment & Plan (06/28/2021 11:39 AM STAGECRAFT PROFESSOR): Pt states no BM for the past week. Likely due to decrease intake and vomiting, possible contribution from opioids -daily bowel regimen, had BM Monday Assessment & Plan (06/27/2021 11:48 AM STAGECRAFT PROFESSOR): Pt states no BM for the past week. Likely due to decrease intake and vomiting, possible contribution from opioids -daily bowel regimen Assessment & Plan (06/26/2021 12:00 PM STAGECRAFT PROFESSOR): Pt states no BM for the past week. Likely due to decrease intake and vomiting, possibly contribution from opioids -daily bowel regimen -clear liquid diet Acute pancreatitis 05/08/2019 Assessment & Plan (06/28/2021 11:38 AM STAGECRAFT PROFESSOR): Hx of chronic pancreatis starting 3 years [...] prioritized. Assessment & Plan (06/27/2021 11:46 AM STAGECRAFT PROFESSOR): Hx of chronic pancreatis starting 3 years [...] prioritized. Assessment & Plan (06/26/2021 11:59 AM STAGECRAFT PROFESSOR): Hx of chronic pancreatis starting 3 years [...] 04/11/2023 Assessment & Plan (04/10/2023 2:38 AM STAGECRAFT PROFESSOR): -migrated stent likely etiology of presenting symptoms and lab, CT findings -will likely need ERCP for stent exchange on Monday Metabolic acidosis, increased anion gap (IAG) 06/25/19 22 07/09/2021 Assessment & Plan (07/09/2021 2:31 PM STAGECRAFT PROFESSOR): Dobbhoff placed 07/08, to start tube feeding TF recommendations: Goal: Osmolite 1.5 at 55mL/hr over 24h via [place] tube continuous via pump. Flush with 150mL water q4h. Initiate TF at 10mL/hr and increase by 10mL q4h until goal rate is reached Assessment & Plan (07/08/2021 1:49 PM STAGECRAFT PROFESSOR): Due to starvation in the setting of [...] reached Assessment & Plan (07/07/2021 11:16 AM STAGECRAFT PROFESSOR): Due to starvation in the setting of intolerance to PO for the last 3-4 days. Will provide aggressive IVF Continue to discuss enteral feedings with the patient going forward, currently pt is refusing, GI will readdress with pt today with goal for placement today should pt agree. Change IVF to D5LR Assessment & Plan (07/06/2021 5:38 PM STAGECRAFT PROFESSOR): Due to starvation in the setting of intolerance to PO for the last 3-4 days. Will provide aggressive IVF Continue to discuss enteral feedings with the patient going forward Assessment & Plan (06/28/2021 11:39 AM STAGECRAFT PROFESSOR): Likely dehydration from pancreatitis, n/v and poor intake. Heme concentrated hgb 14.9 (baseline 8-9), wbc 14.4 no source of infection likely heme concentrated, anion gap 20, UA ketone +1. Resolved with IVF Assessment & Plan (06/27/2021 11:47 AM STAGECRAFT PROFESSOR): Likely dehydration from pancreatitis, n/v and poor intake. Heme concentrated hgb 14.9 (baseline 8-9), wbc 14.4 no source of infection likely heme concentrated, anion gap 20, UA ketone +1. Resolved with IVF Assessment & Plan (06/26/2021 12:00 PM STAGECRAFT PROFESSOR): Likely dehydration from pancreatitis, n/v and poor [...] drink = 0.6 oz pur e alcohol) [facility] Utilities Answer Date Recorded In the past 12 months has e [employer], gas, oil, or water [employer] threatened to shut off services in your [...] often do you attend chur ch or latter day services? 1 to 4 times per year [...] housing, medical care, and heating? Hard 09/16/2024 [facility] - Occupational Stress [...] in a senior living (including now)? No 09/21/2023 Housing Stability Vital Sign Answer Dangelo e Recorded In the last 12 months, was t here a time when you were not able to pay the mortgage or rent on time? No 09/16/2024 In the past 12 months, how m any times have you moved where you were living? 1 09/16/2024 At any time in the past 12 m [facility], were you homeless or living in a senior living (including now)? Yes 09/16/2024 Personal Safety Answer Date Recorded Have you ever been in or are you currently in a harmful physical or emotional relationship or is someone making you feel afraid or unsafe? Denies 09/13/2024 Sex and Gender Information Value Date Recorded Sex Assigned at Not on file Legal Sex Male 1:58 AM STAGECRAFT PROFESSOR Gender Identity Not on file Sexual Orientation [...] on file Medical Devices Implanted Type Area Distillery Laborer Device Identifier Shelf Expiration Date Model / Serial / Lot [employer] Kemal 8.5 Fr Nasal Biliary Catheter [id number] - [id number] Implanted:Qty: 1 on 01/26/2022 by Kenneth Loya MD at [facility] Catheter [employer] Kemal 06/22/2024 [id number] / / [id number] [employer] Kemal 10fr 5cm Biliary Double Pigtail Stent [id number] - [id number] Implanted:Qty: 1 on 09/21/2023 by Kenneth Loya MD at [facility] Stent N/A: Bile Duct [employer] Kemal 08/14/2025 [id number] / / [id number] [employer] Kem[employer] 10fr 5cm Biliary Stent [id number] - [id number] Implanted:Qty: 1 on 09/21/2023 by Kenneth Loya MD at [facility] Stent N/A: Bile Duct [employer] Kemal 07/03/2025 [id number] / / [id number] [employer] Kemal 10fr 5cm Biliary Double Pigtail Stent [id number] - [id number] Implanted:Qty: 1 on 09/21/2023 by Kenneth Loya MD at [facility] Stent N/A: Bile Duct [employer] Kemal 08/23/2025 [id number] / / [id number] [employer] Kemal 10fr 5cm Biliary Double Pigtail Stent [id number] - [id number] Implanted:Qty: 1 on 09/21/2023 by Kenneth Loya MD at [facility] Stent N/A: Bile Duct [employer] 08/23/2025 [id number] / / [id number] [employer] Kem[employer] 10fr 5cm Biliary Double Pigtail Stent [id number] - [id number] Implanted:Qty: 1 on 09/21/2023 by Kenneth Loya MD at [facility] Stent N/A: Bile Duct [employer] 08/14/2025 [id number] / / [id number] [employer] 10fr 7cm Biliary Stent [id number] - [id number] Implanted:Qty: 1 on 04/10/2023 by John De Anda MD at [facility] [employer] Kem[employer] [id number] 12/13/2024 [id number] / / [id number] [employer] Kemal 10fr 7cm Biliary Stent [id number] - [id number] Implanted:Qty: 1 on 04/10/2023 by John De Anda MD at [facility] [employer] Kemal [id number] 02/07/2025 [id number] / / [id number] Explanted Type Area Distillery Laborer Device Identifier Shelf Expiration Date Model / Serial / Lot [employer] [id number] Cotton-Young 10fr 7cm Taper Tip Guidewire Proximal Distal Flap - [id number] Implanted:Qty: 1 on 08/04/2021 by Kenneth Loya MD at [facility] Explanted:Qty: 1 on 08/30/2021 at [facility] Stent N/A: Bile Duct [employer] 01/28/2024 [id number] / / [id number] Axios 10 X 10 Stent Delivery System [id number] - [id number] Implanted:Qty: 1 on 08/04/2021 by Kenneth Loya MD at [facility] Explanted:Qty: 1 on 08/30/2021 at [facility] Stent N/A: Bile Duct [employer]al 10/13/2022 [id number] / / [id number] [employer] Geenen 7fr 7cm Positioning Sleeve Push Catheter Guidewire [id number] - [id number] Implanted:Qty: 1 on 08/30/2021 at [facility] Explanted:Qty: 1 on 11/01/2021 by Kenneth Loya MD at [facility] Stent N/A: Pancreas [employer] 11/06/2023 [id number] / / [id number] [employer] Kemal 10fr 5cm Biliary Stent [id number] - [id number] Implanted:Qty: 1 on 01/26/2022 by Kenneth Loya MD at [facility] Explanted:Qty: 1 on 04/06/2022 by Kenneth Loya MD at [facility] Stent [employer] 11/16/2023 [id number] / / [id number] [employer] Advanix Naviflex 7fr 9cm Radiopaque [place] Endo Marker Color Coded [id number] - [id number] Implanted:Qty: 1 on 01/26/2022 by Kenneth Loya MD at [facility] Explanted:Qty: 1 on 04/06/2022 at [facility] Stent [employer] 04/16/2023 [id number] / / [id number] [employer] Advanix 8.5fr 7cm Rapid Exchange Temporary [place] Stent [id number] - [id number] Implanted:Qty: 1 on 04/06/2022 by Kenneth Loya MD at [facility] Explanted:Qty: 1 on 07/06/2022 by Kenneth Loya MD at [facility] Stent N/A: Pancreas [employer] 10/26/2023 [id number] / / [id number] [employer] Advanix 8.5fr 7cm Rapid Exchange Temporary [place] Stent [id number] - [id number] Implanted:Qty: 1 on 04/06/2022 by Kenneth Loya MD at [facility] Explanted:Qty: 1 on 07/06/2022 by Kenneth Loya MD at [facility] Stent N/A: Pancreas [employer] 10/26/2023 [id number] / / [id number] [employer] 10fr 5cm Biliary Stent [id number] - [id number] Implanted:Qty: 1 on 09/08/2022 by Kenneth Loya MD at [facility] Explanted:Qty: 1 on 11/03/2022 by Kenneth Loya MD at [facility] Stent N/A: Bile Duct [employer] 08/07/2024 [id number] / / [id number] [employer] 10fr 5cm Biliary Stent [id number] - [id number] Implanted:Qty: 1 on 09/08/2022 by Kenneth Loya MD at [facility] Explanted:Qty: 1 on 11/03/2022 by Kenneth Loya MD at [facility] Stent N/A: Bile Duct [employer] 05/04/2024 [id number] / / [id number] [employer] Cartwright Flexi-Stent 7fr 7cm Small Pigtail Flexible .035in Stent 6574 - [id number] Implanted:Qty: 1 on 09/08/2022 by Kenneth Loya MD at [facility] Explanted:Qty: 1 on 11/03/2022 by Kenneth Loya MD at [facility] Stent N/A: Bile Duct [employer] 05/28/2027 [id number] / / [id number] [employer] Geenen 8.5fr 9cm Drain Obstructed Positioning Sleeve Pushing [id number] - [id number] Implanted:Qty: 1 on 04/06/2022 by Kenneth Loya MD at [facility] Explanted:Qty: 1 on 01/05/2023 by Kenneth Loya MD at [facility] Stent N/A: Pancreas [employer] 05/03/2024 [id number] / / [id number] [employer] Cartwright Flexi-Stent 7fr 7cm Small Pigtail Flexible .035in Stent 6574 - [id number] Implanted:Qty: 1 on 11/03/2022 by Kenneth Loya MD at [facility] Explanted:Qty: 1 on 01/05/2023 by Kenneth Loya MD at [facility] Stent N/A: Pancreas [employer] 05/28/2027 [id number] / / [id number] [employer] Kem[employer] 10fr 5cm Biliary Stent [id number] - [id number] Implanted:Qty: 1 on 11/03/2022 by Kenneth Loya MD at [facility] Explanted:Qty: 1 on 01/05/2023 at [facility] Stent N/A: Bile Duct [employer] 08/15/2024 [id number] / / [id number] [employer] Cotton-Young 10fr 5cm Taper Tip Soft Proximal Distal Flap Gentle [id number] - [id number] Implanted:Qty: 1 on 11/03/2022 by Kenneth Loya MD at [facility] Explanted:Qty: 1 on 01/05/2023 by Kenneth Loya MD at [facility] Stent N/A: Bile Duct [employer] 08/10/2025 [id number] / / [id number] [employer] Cartwright Flexi-Stent 4fr 7cm Small Pigtail Flexible .025in Stent 6544 - [id number] Implanted:Qty: 1 on 01/05/2023 by Kenneth Loya MD at [facility] Explanted:Qty: 1 on 06/02/2023 at [facility] Stent N/A: Pancreas [employer] 07/27/2027 [id number] / / [id number] Description:Not present on t his procedure [employer] 10fr 7cm Biliary Stent [id number] - [id number] Implanted:Qty: 1 on 01/05/2023 by Kenneth Loya MD at [facility] Explanted:Qty: 1 on 06/02/2023 by Jero Soto MD at [facility] Stent N/A: Bile Duct [employer] 12/13/2024 [id number] / / [id number] [employer] 10fr 7cm Biliary Stent [id number] - [id number] Implanted:Qty: 1 on 01/05/2023 by Kenneth Loya MD at [facility] Explanted:Qty: 1 on 06/02/2023 by Jero Soto MD at [facility] Stent N/A: Bile Duct [employer] 12/13/2024 [id number] / / [id number] [employer] 10fr 5cm Biliary Double Pigtail Stent [id number] - [id number] Implanted:Qty: 1 on 06/02/2023 by Kenneth Loya MD at [facility] Explanted:Qty: 1 on 09/21/2023 by Kenneth Loya MD at [facility] Stent N/A: Bile Duct [employer] 04/30/2025 [id number] / / [id number] [employer] 10fr 5cm Biliary Double Pigtail Stent [id number] - [id number] Implanted:Qty: 1 on 06/02/2023 by Kenneth Loya MD at [facility] Explanted:Qty: 1 on 09/21/2023 by Kenneth Loya MD at [facility] Stent N/A: Bile Duct [employer] 04/30/2025 [id number] / / [id number] [employer] 10fr 5cm Biliary Stent [id number] - [id number] Implanted:Qty: 1 on 06/02/2023 by Kenneth Loya MD at [facility] Explanted:Qty: 1 on 09/21/2023 by Kenneth Loya MD at [facility] Stent N/A: Bile Duct [employer] 02/28/2025 [id number] / / [id number] [employer] 10fr 5cm Biliary Double Pigtail Stent [id number] - [id number] Implanted:Qty: 1 on 06/02/2023 by Kenneth Loya MD at [facility] Explanted:Qty: 1 on 09/21/2023 by Kenneth Loya MD at [facility] Stent N/A: Bile Duct [employer] 04/30/2025 [id number] / / [id number] [employer] [id number] Advanix 10fr 5cm Rapid Exchange Temporary [place] Stent - [id number] Implanted:Qty: 1 on 06/18/2021 by Kenneth Loya MD at [facility] Explanted:Qty: 1 on 08/30/2021 at [facility] [employer] 06/30/2022 [id number] / / [id number] Description:Removed prior [employer] Advanix Od10 Fr L7 Cm 1; Temporary Duodenal Bend Stent Biliary Pl [id number] - [id number] Implanted:Qty: 1 on 08/30/2021 at [facility] Explanted:Qty: 1 on 11/01/2021 by Kenneth Loya MD at [facility] N/A: Bile Duct [employer] 06/25/2022 [id number] / / [id number] [employer] Advanix Naviflex 10fr 9cm Lead Joana Radiopaque Flexible [id number] - [id number] Implanted:Qty: 1 on 11/01/2021 by Kenneth Loya MD at [facility] Explanted:Qty: 1 on 01/05/2022 by Contreras Girard MD at [facility] N/A: Pancreas [employer] 07/18/2022 [id number] / / [id number] 10fr 5cm Biliary Stent [id number] - [id number] Implanted:Qty: 1 on 11/01/2021 by Kenneth Loya MD at [facility] Explanted:Qty: 1 on 01/05/2022 at [facility] N/A: Bile Duct [employer] 08/12/2023 [id number] / / [id number] 10fr 7cm Biliary Stent [id number] - [id number] Implanted:Qty: 1 on 11/01/2021 by Kenneth Loya MD at [facility] Explanted:Qty: 1 on 01/05/2022 by Contreras Girard MD at [facility] N/A: Bile Duct [employer] 08/23/2023 [id number] / / [id number] [employer] Cotton-Young 10fr 5cm Taper Tip Soft Proximal Distal Flap Gentle [id number] - [id number] Implanted:Qty: 1 on 01/05/2022 by Contreras Girard MD at [facility] Explanted:Qty: 1 on 01/26/2022 at [facility] N/A: Bile Duct [employer] 05/07/2022 [id number] / / [id number] [employer] Advanix 7fr 7cm Lead Joana Radiopaque [place] Endo Marker Drainage [id number] - [id number] Implanted:Qty: 1 on 07/06/2022 by Kenneth Loya MD at [facility] Explanted:Qty: 1 on 09/08/2022 by Kenneth Loya MD at [facility] N/A: Pancreas [employer] 05/03/2023 [id number] / / [id number] [employer] 10fr 5cm Biliary Stent [id number] - [id number] Implanted:Qty: 1 on 07/06/2022 by Kenneth Loya MD at [facility] Explanted:Qty: 1 on 09/08/2022 by Kenneth Loya MD at [facility] N/A: Bile Duct [employer] 12/24/2022 [id number] / / [id number] [employer] 10fr 5cm Biliary Stent [id number] - [id number] Implanted:Qty: 1 on 07/06/2022 by Kenneth Loya MD at [facility] Explanted:Qty: 1 on 09/08/2022 by Kenneth Loya MD at [facility] N/A: Bile Duct [employer] 11/16/2023 [id number] / / [id number] [employer] 10fr 7cm Biliary Stent [id number] - [id number] Explanted:Qty: 1 on 04/10/2023 by John De Anda MD at [facility] [employer] [id number] 12/13/2024 [id number] / / [id number] Description:Unable to place despite multiple attempts Procedures [...] MD LAB BLOOD ORDERABLES Final Result [facility] [address] [facility] Department [place] [address] * Differential, auto (09/14/2024 7:03 AM CDT) Neutrophil abs 2.37 1.50 - 6.50 K/cumm Imm gran abs 0.01 0.00 - 0.10 K/cumm [facility] Lymphocyte abs 1.29 0.80 - 3.30 K/cumm [facility] Monocyte abs 0.44 0.20 - 0.80 K/cumm [facility] Eosinophil abs 0.23 0.00 - 0.50 K/cumm [facility] Basophil abs 0.03 0.00 - 0.10 K/cumm [facility] Neutrophil pct 54.2 % [facility] Comment: Interpretive Data Percent cell count reference ranges are not reported, since discordance with absolute values may lead to misinterpretation of CBC data. Current Interpretive Data was last revised on 2017. Imm gran pct 0.2 % [facility] Comment: Interpretive Data Percent cell count reference ranges are not reported, since discordance with absolute values may lead to misinterpretation of CBC data. Current Interpretive Data was last revised on 2017. Lymphocyte pct 29.5 % [facility] Comment: Interpretive Data Percent cell count reference ranges are not reported, since discordance with absolute values may lead to misinterpretation of CBC data. Current Interpretive Data was last revised on 2017. Monocyte pct 10.1 % [facility] Comment: Interpretive Data Percent cell count reference ranges are not reported, since discordance with absolute values may lead to misinterpretation of CBC data. Current Interpretive Data was last revised on 2017. Eosinophil pct 5.3 % [facility] Comment: Interpretive Data Percent cell count reference ranges are not reported, since discordance with absolute values may lead to misinterpretation of CBC data. Current Interpretive Data was last revised on 2017. Basophil pct 0.7 % [facility] Comment: Interpretive Data Percent cell count reference ranges are not reported, since discordance with absolute values may lead to misinterpretation of CBC data. Current Interpretive Data was last revised on 2017. Blood 09/14/2024 7:03 AM CDT 09/14/2024 7:07 AM CDT Melyssa Anderson MD LAB BLOOD ORDERABLES Final Result Performing Organization Address City/[facility]/ZIP Co de Phone Number [facility] [address] [address] * (ABNORMAL) CBC with auto differential (09/14/2024 7:03 AM CDT) Pathologist [facility] WBC 4.37 3.80 - 9.90 K/cumm Hgb 10.8(L) 13.0 - 17.5 g/dL [facility] Hct 33.6(L) 38.9 - 50.3 % [facility] Plt 208 150 - 400 K/cumm [facility] MPV 8.9(L) 9.1 - 12.3 fL [facility] RBC 3.66(L) 4.30 - 5.80 M/cumm [facility] MCV 91.8 81.3 - 96.4 fL [facility] MCH 29.5 27.1 - 33.3 pg [facility] MCHC 32.1(L) 32.3 - 35.7 g/dL [facility] RDW CV 17.2(H) 11.1 - 14.9 % [facility] RDW SD 58.0(H) 35.7 - 48.1 fL [facility] NRBC abs 0.00 0.00 - 0.01 K/cumm [facility] Blood 09/14/2024 7:03 AM CDT 09/14/2024 7:07 AM CDT Melyssa Anderson MD LAB BLOOD ORDERABLES Final Result [facility] [address] [place] [address] * (ABNORMAL) Comprehensive metabolic panel (09/14/2024 7:03 AM CDT) Sodium 138 135 - 145 mmol/L Potassium, pl 3.3 3.3 - 4.9 mmol/L [facility] Chloride 107 97 - 110 mmol/L [facility] CO2 21(L) 22 - 32 mmol/L [facility] Anion gap 10 2 - 15 mmol/L [facility] BUN 7 6 - 25 mg/dL [facility] Creatinine 0.64(L) 0.80 - 1.30 mg/dL [facility] Glucose 99 70 - 199 mg/dL [facility] Comment: Interpretive Data Fasting glucose [...] 2022. Calcium 9.1 8.5 - 10.3 mg/dL [facility] Bilirubin, total 0.4 0.1 - 1.2 mg/dL [facility] Protein, pl 6.3(L) 6.5 - 8.5 g/dL [facility] Albumin 3.7 3.5 - 5.0 g/dL [facility] Alk phos 71 40 - 130 Units/L [facility] ALT 15 7 - 55 Units/L [facility] AST 18 10 - 50 Units/L [facility] Blood 09/14/2024 7:03 AM CDT 09/14/2024 7:07 AM CDT us Melyssa Anderson MD LAB BLOOD ORDERABLES Final Result [facility] [address] [facility] Department of Laboratories [place], [place] [id number] * CT Abdomen Pelvis W Contrast (09/13/2024 [...] Ale Morocho M.D. TW T: Report ID: [id number] Reading Location: [id number] Procedure Note Ale Morocho MD - 09/13/2024 [...] Ale Morocho M.D. TW T: Report ID: [id number] Reading Location: [id number] us Yuridia ROCA IMG CT PROCEDURES Maisha l Result * (ABNORMAL) Urinalysis reflex to microscopic and culture Urine (09/13/2024 1:26 PM CDT) Color, ur Yellow Yellow Clarity, ur Clear Clear [facility] Specific gravity, ur 1.025 1.003 - 1.030 [facility] pH, urine 6.5 [facility] Comment: Interpretive Data U rine pH is affected by diet, medications, systemic acid-base disturbances, and renal tubular function. pH may affect urinary stone formation. For example, urine pH below 6.0 may help reduce the tendency for calcium phosphate stones and pH greater than 6.0 may reduce the tendency for uric acid stone formation. Source: [facility] Current Interpretive Data was last revised on 2017 Protein, ur ql Negative Negative [facility] Glucose, ur ql Negative Negative [facility] Ketones, ur Trace Negative [facility] Bilirubin, ur Negative Negative [facility] Blood, ur Negative Negative [facility] Urobilinogen, ur 2.0(A) <2.0 mg/dL [facility] Nitrite, ur Negative Negative [facility] Leukocyte esterase, ur Negative Negative [facility] UA reflex comment Reflex conditions for microscopic UA and culture not met. [facility] Urine 09/13/2024 1:26 PM CDT 09/13/2024 1:30 PM CDT Melyssa jimenez MD LAB MICROBIOLOGY - GENERAL ORDERABLES Final Result [facility] [address] [facility] Department [place] [address] * (ABNORMAL) Drugs of Abuse [...] 2022. Barbiturates, ur Not Detected CutOff 200ng/mL [facility] Comment: Interpretive Data - Barbiturates: Samples containing greater than 200 ng/mL secobarbital or other cross-reacting barbiturate compounds are reported as positive. False positive and false negative results are possible. Confirmatory testing required for definitive results. Current Interpretive Data was last reviewed 2022. Benzodiazepines, ur Screen Positive, presumptive (A) CutOff 100ng/mL [facility] Comment: Interpretive Data - Benzodiazepines: Samples containing greater than 100 ng/mL nordiazepam or other cross-reacting compounds are reported as positive. False positive and false negative results are possible. Confirmatory testing required for definitive results. Current Interpretive Data was last reviewed 2022. Cannabinoids, ur Screen Positive, presumptive (A) CutOff 50 ng/mL [facility] Comment: Interpretive Data - Cannabinoids: Samples containing greater than 50 ng/mL delta-9 THC -COOH or other cross- reacting compounds are reported as positive. False positive and false negative results are possible. Confirmatory testing required for definitive results. Current Interpretive Data was last reviewed 2022. Cocaine, ur Not Detected CutOff 150ng/mL [facility] Comment: Interpretive Data - Cocaine: Samples containing greater than 150 ng/mL benzoylecgonine or other cross- reacting compounds are reported as positive. False positive and false negative results are possible. Confirmatory testing required for definitive results. Current Interpretive Data was last reviewed 2022. Fentanyl, Ur Not Detected CutOff 5 ng/mL [facility] Comment: Interpretive Data - Fentanyl: Samples containing greater than 5 ng/mL norfentanyl, fentanyl, or other cross-reacting fentanyl compounds are reported as positive. False positive and false negative results are possible. Confirmatory testing required for definitive results. Current Interpretive Data was last reviewed 2023. Methadone, ur Not Detected CutOff 300ng/mL [facility] Comment: Interpretive Data - Methadone: Samples containing greater than 300 ng/mL d,l-methadone or other cross-reacting compounds are reported as positive. False positive and false negative results are possible. Confirmatory testing required for definitive results. Current Interpretive Data was last reviewed 2022. Opiates, ur Not Detected CutOff 300ng/mL [facility] Comment: Interpretive Data - Opiates: Samples containing greater than 300 ng/mL morphine or other cross-reacting compounds are reported as positive. False positive and false negative results are possible. Confirmatory testing required for definitive results. Current Interpretive Data was last reviewed 2022. Oxycodone, ur Not Detected CutOff 100ng/mL [facility] Comment: Interpretive Data - Oxycodone: Samples containing greater than 100 ng/mL oxycodone or other cross-reacting compounds are reported as positive. False positive and false negative results are possible. Confirmatory testing required for definitive results. Current Interpretive Data was last reviewed 2022. Phencyclidine, ur Not Detected CutOff 25 ng/mL [facility] Comment: Interpretive Data - Phencyclidine: Samples containing greater than 25 ng/mL phencyclidine or other cross-reacting compounds are reported as positive. False positive and false negative results are possible. Confirmatory testing required for definitive results. Current Interpretive Data was last reviewed 2022. Urine Creatinine 286 mg/dL [facility] Comment: Interpretive Data Urine Creatinine: < 10 mg/dL is extremely dilute = or > 10 but < 20 mg/dL is dilute = or > 20 mg/dL is normal Current Interpretive Data was last revised on 2017. Urine 09/13/2024 1:26 PM CDT 09/13/2024 1:30 PM CDT Narrative [facility] - 09/13/2024 1:56 PM CDT Drug of Abuse screening is performed by immunoassay for medical purposes only. This is not to be used for Pain Management purposes. Melyssa Anderson MD LAB URINE ORDERABLES Final Result [facility] [address] [facility] Department [place] [address] * COVID-19 Coronavirus RNA Nasopharyngeal (09/13/2024 1:24 PM CDT) COVID-19 RNA Negative Negative Nasopharyngeal 09/13/2024 1: 24 PM CDT 09/13/2024 1:29 PM CDT Sherrell HENDERSON - 09/13/2024 2:05 PM CDT Is the patient experiencing any symptoms consistent with COVID (eg. Fever, cough, shortness of breath)?->No What is the reason for testing?->Screening for semi-private room placement Interpretive data Testing performed by [facility]. This test is performed using the [employer] Xpert Xpress CoV-2 plus assay. This is a real-time RT-PCR test intended for the qualitative detection of nucleic acid from the SARS-CoV-2. This assay has been cleared by the [place] Food and Drug administration. The performance characteristics have been verified by the [facility]. Results must be considered in the clinical context, and a negative result does not rule out infection. Interpretive data last revised 2023. Interpretive data Testing performed by [facility]. This test is performed using the [employer] Xpert Xpress CoV-2 plus assay. This is a real-time RT-PCR test intended for the qualitative detection of nucleic acid from the SARS-CoV-2. This assay has been cleared by the [place] Food and Drug administration. The performance characteristics have been verified by the [facility]. Results must be considered in the clinical context, and a negative result does not rule out infection. Interpretive data last revised 2023. Melyssa jimenez MD LAB MICROBIOLOGY - GENERAL ORDERABLES Final Result [facility] [address] [facility] Department [place] [address] * eGFR (09/13/2024 1:24 PM CDT) Pathologist [facility] eGFR >90 >=60 mL/min/1. 73 m2 [...] Anderson MD LAB BLOOD ORDERABLES Final Result [facility] [address] [facility] Department [place] [address] * Differential, auto (09/13/2024 1:24 PM CDT) Pathologist [facility] Neutrophil abs 4.79 1.50 - 6.50 K/cumm Imm gran abs 0.01 0.00 - 0.10 K/cumm [facility] Lymphocyte abs 1.49 0.80 - 3.30 K/cumm [facility] Monocyte abs 0.69 0.20 - 0.80 K/cumm [facility] Eosinophil abs 0.12 0.00 - 0.50 K/cumm [facility] Basophil abs 0.06 0.00 - 0.10 K/cumm [facility] Neutrophil pct 67.0 % [facility] Comment: Interpretive Data Percent cell count reference ranges are not reported, since discordance with absolute values may lead to misinterpretation of CBC data. Current Interpretive Data was last revised on 2017. Imm gran pct 0.1 % [facility] Comment: Interpretive Data Percent cell count reference ranges are not reported, since discordance with absolute values may lead to misinterpretation of CBC data. Current Interpretive Data was last revised on 2017. Lymphocyte pct 20.8 % [facility] Comment: Interpretive Data Percent cell count reference ranges are not reported, since discordance with absolute values may lead to misinterpretation of CBC data. Current Interpretive Data was last revised on 2017. Monocyte pct 9.6 % [facility] Comment: Interpretive Data Percent cell count reference ranges are not reported, since discordance with absolute values may lead to misinterpretation of CBC data. Current Interpretive Data was last revised on 2017. Eosinophil pct 1.7 % [facility] Comment: Interpretive Data Percent cell count reference ranges are not reported, since discordance with absolute values may lead to misinterpretation of CBC data. Current Interpretive Data was last revised on 2017. Basophil pct 0.8 % [facility] Comment: Interpretive Data Percent cell count reference ranges are not reported, since discordance with absolute values may lead to misinterpretation of CBC data. Current Interpretive Data was last revised on 2017. Blood 09/13/2024 1:24 PM CDT 09/13/2024 1:29 PM CDT Melyssa Anderson MD LAB BLOOD ORDERABLES Final Result Performing Organization Address [facility] Co de Phone Number [address] [place] [address] * Thyroid Function [place] (09/13/2024 1:24 PM CDT) TSH 1.33 0.30 - 4.20 mcIUnit/mL Blood 09/13/2024 1:24 PM CDT 09/13/2024 1:29 PM CDT Melyssa Anderson MD LAB BLOOD ORDERABLES Final Result Performing Organization Address City/[facility] Co de Phone Number [address] [place] [address] * (ABNORMAL) CBC with auto differential (09/13/2024 1:24 PM CDT) [facility] WBC 7.16 3.80 - 9.90 K/cumm Hgb 10.9(L) 13.0 - 17.5 g/dL [facility] Hct 33.1(L) 38.9 - 50.3 % [facility] Plt 270 150 - 400 K/cumm [facility] MPV 9.4 9.1 - 12.3 fL [facility] RBC 3.65(L) 4.30 - 5.80 M/cumm [facility] MCV 90.7 81.3 - 96.4 fL [facility] MCH 29.9 27.1 - 33.3 pg [facility] MCHC 32.9 32.3 - 35.7 g/dL [facility] RDW CV 17.2(H) 11.1 - 14.9 % [facility] RDW SD 57.1(H) 35.7 - 48.1 fL [facility] NRBC abs 0.00 0.00 - 0.01 K/cumm [facility] Blood Venous blood specimen / Unknown 09/13/2024 1:24 PM CDT 09/13/2024 1:29 PM CDT Melyssa Anderson MD LAB BLOOD ORDERABLES Final Result Performing Organization Address City/[facility]/ZIP Co de Phone Number [address] [place] [employer] [place] [address] * Lipase (09/13/2024 1:24 PM CDT) [facility] Lipase 16 10 - 99 Units/L Comment:Hemolyzed; result mi ght be falsely decreased Blood 09/13/2024 1:24 PM CDT 09/13/2024 1:29 PM CDT Yuridia ROCA LAB BLOOD ORDERABLES F inal Result [address] [place] [address] * Ethanol (09/13/2024 1:24 PM CDT) Ethanol <10 <=10 mg/dL Comment: Interpretive Data Legal limit of intoxication > or = 80 mg/dL Levels > or = 400 mg/dL are potentially TOXIC. Current interpretive data was last revised on 2018. Blood 09/13/2024 1:24 PM CDT 09/13/2024 1:29 PM CDT Melyssa Anderson MD LAB BLOOD ORDERABLES Final Result [facility] [address] [facility] Department [place] [address] * (ABNORMAL) Comprehensive metabolic panel (09/13/2024 1:24 PM CDT) Sodium 134(L) 135 - 145 mmol/L Potassium, pl 4.4 3.3 - 4.9 mmol/L [facility] Comment:Hemolyzed; Potassium value may be falsely elevated by as much as 1.0 mmol/L. Suggest redraw and reanalysis. Chloride 101 97 - 110 mmol/L [facility] CO2 19(L) 22 - 32 mmol/L [facility] Anion gap 14 2 - 15 mmol/L [facility] BUN 9 6 - 25 mg/dL [facility] Creatinine 0.68(L) 0.80 - 1.30 mg/dL [facility] Glucose 108 70 - 199 mg/dL [facility] Comment: Interpretive Data Fasting glucose [...] 2022. Calcium 9.8 8.5 - 10.3 mg/dL [facility] Bilirubin, total 0.6 0.1 - 1.2 mg/dL [facility] Protein, pl 7.6 6.5 - 8.5 g/dL [facility] Albumin 4.3 3.5 - 5.0 g/dL [facility] Alk phos 83 40 - 130 Units/L [facility] ALT See Comment [facility] Comment:Credited; Hemolyzed Specimen AST See Comment [facility] Comment:Credited; Hemolyzed Specimen Blood 09/13/2024 1:24 PM CDT 09/13/2024 1:29 PM CDT Melyssa Anderson MD LAB BLOOD ORDERABLES Final Result [place] [id number] [facility] Department [place] [address] * (ABNORMAL) POCT glucose (08/21/2024 7:30 AM CDT) Glucose, POC 206(H) 70 - 199 mg/dL Blood 08/21/2024 7:30 AM CDT 08/21/2024 7:30 AM CDT Arley Cheung MD LAB POCT ORDERABLES - DEVIC E Final Result Performing Organization Address City/[facility] Co de Phone Number [facility] Department [place] [address] * POCT glucose (08/21/2024 5:37 AM CDT) Glucose, POC 113 70 - 199 mg/dL Blood 08/21/2024 5:37 AM CDT 08/21/2024 5:37 AM CDT Arley Cheung MD LAB POCT ORDERABLES - DEVIC E Final Result Performing Organization Address City/[facility] Co de Phone Number [facility] [place] [address] * Infection Prevention Lanny auris PCR, surveillance Axilla/Groin (08/21/2024 5:26 AM CDT) Lanny auris DNA Not Detected Not Detected [facility] Comment: Interpretive Data Testing performed by [facility] using the [employer] johnny [id number] Lanny auris assay. This assay detects DNA from Lanny auris using Real-Time PCR. This assay is laboratory developed and is not cleared by the [facility] Food and Drug Administration. The performance characteristics have been verified by the [facility]. Axilla/Groin 08/21/2024 5:26 AM CDT 08/21/2024 6:32 AM CDT us Michael Claudio MD LAB MICROBIOLOGY - GENERAL ORDER DELIO Final Result Performing Organization Address City/State/[facility] Co de Phone Number SANTIAGO [facility] [place] [address] [facility] * CP-CRE culture, surveillance Rectal swab (08/21/2024 5:26 AM CDT) Report Final Report: Negative Rectal swab 08/21/2024 5:26 AM CDT 08/21/2024 6:39 AM CDT Narrative ELENASTAN [facility] - 08/22/2024 11:59 AM CDT Interpretive Data The screening agar used for the detection of carbapenemase-producing Enterobacterales (CP-CRE) has not been approved by the Food and Drug Administration. The performance characteristics of this medium have been evaluated and verified by the [facility]. This media demonstrates highest sensitivity for KPC and NDM-1 producing isolates. This screening assay is exclusively intended for infection control and surveillance, not for patient diagnosis or treatment purposes. Current interpretive data was last revised on 2023. us Michael Claudio MD LAB MICROBIOLOGY - GENERAL ORDER DELIO Final Result Performing Organization Address City/State/[facility] de Phone Number [facility] [place] [address] * eGFR (08/21/2024 4:48 AM CDT) Pathologist [facility] eGFR >90 >=60 mL/min/1. 73 m2 [...] ORDERABLES Final Result Performing Organization Address [facility] Co de Phone Number SANTIAGO [facility] [place] [address] * Differential, auto (08/21/2024 4:48 AM CDT) Pathologist [facility] Neutrophil abs 6.0 1.5 - 6.5 K/cumm Imm gran abs 0.0 0.0 - 0.1 K/cumm [facility] Lymphocyte abs 1.6 0.8 - 3.3 K/cumm [facility] Monocyte abs 0.7 0.2 - 0.8 K/cumm [facility] Eosinophil abs 0.3 0.0 - 0.5 K/cumm [facility] Basophil abs 0.1 0.0 - 0.1 K/cumm [facility] Neutrophil pct 68.4 % [facility] Comment: Interpretive Data Percent cell count reference ranges are not reported, since discordance with absolute values may lead to misinterpretation of CBC data. Current Interpretive Data was last revised on 2017. Imm gran pct 0.3 % [facility] Comment: Interpretive Data Percent cell count reference ranges are not reported, since discordance with absolute values may lead to misinterpretation of CBC data. Current Interpretive Data was last revised on 2017. Lymphocyte pct 18.6 % [facility] Comment: Interpretive Data Percent cell count reference ranges are not reported, since discordance with absolute values may lead to misinterpretation of CBC data. Current Interpretive Data was last revised on 2017. Monocyte pct 8.2 % [facility] Comment: Interpretive Data Percent cell count reference ranges are not reported, since discordance with absolute values may lead to misinterpretation of CBC data. Current Interpretive Data was last revised on 2017. Eosinophil pct 3.2 % [facility] Comment: Interpretive Data Percent cell count reference ranges are not reported, since discordance with absolute values may lead to misinterpretation of CBC data. Current Interpretive Data was last revised on 2017. Basophil pct 1.3 % [facility] Comment: Interpretive Data Percent cell count reference ranges are not reported, since discordance with absolute values may lead to misinterpretation of CBC data. Current Interpretive Data was last revised on 2017. Blood 08/21/2024 4:48 AM CDT 08/21/2024 5:47 AM CDT us Arley Cheung MD LAB BLOOD ORDERABLES Final Result [facility] Department [place] [address] * (ABNORMAL) CBC with auto differential (08/21/2024 4:48 AM CDT) WBC 8.8 3.8 - 9.9 K/cumm Hgb 10.4(L) 13.0 - 17.5 g/dL [facility] Hct 31.8(L) 38.9 - 50.3 % [facility] Plt 609(H) 150 - 400 K/cumm [facility] MPV 9.3 9.1 - 12.3 fL [facility] RBC 3.53(L) 4.30 - 5.80 M/cumm [facility] MCV 90.1 81.3 - 96.4 fL [facility] MCH 29.5 27.1 - 33.3 pg [facility] MCHC 32.7 32.3 - 35.7 g/dL [facility] RDW CV 17.2(H) 11.1 - 14.9 % [facility] RDW SD 56.5(H) 35.7 - 48.1 fL [facility] NRBC abs 0.00 0.00 - 0.01 K/cumm [facility] Blood 08/21/2024 4:48 AM CDT 08/21/2024 5:47 AM CDT Arley Cheung MD LAB BLOOD ORDERABLES Final Result Performing Organization Address City/[facility] Co de Phone Number [facility] Department [place] [address] * Phosphorus (08/21/2024 4:48 AM CDT) [facility] Phosphorus, pl 3.9 2.3 - 4.5 mg/dL Blood 08/21/2024 4:48 AM CDT 08/21/2024 5:47 AM CDT Arley Cheung MD LAB BLOOD ORDERABLES Final Result [facility] Department [place] [address] * Magnesium (08/21/2024 4:48 AM CDT) [facility] Magnesium 1.9 1.4 - 2.5 mg/dL Blood 08/21/2024 4:48 AM CDT 08/21/2024 5:47 AM CDT Arley Cheung MD LAB BLOOD ORDERABLES Final Result Performing Organization Address [facility] de Phone Number [facility] [place] [address] * (ABNORMAL) Hepatic function panel (08/21/2024 4:48 AM CDT) [facility] Bilirubin, total <0.2 0.1 - 1.2 mg/dL Bilirubin, direct <0.2 0.1 - 0.3 mg/dL [facility] Protein, pl 6.2(L) 6.5 - 8.5 g/dL [facility] Albumin 3.1(L) 3.5 - 5.0 g/dL [facility] Alk phos 87 40 - 130 Units/L [facility] ALT 9 7 - 55 Units/L [facility] AST 18 10 - 50 Units/L [facility] Blood 08/21/2024 4:48 AM CDT 08/21/2024 5:47 AM CDT Arley Cheung MD LAB BLOOD ORDERABLES Final Result Performing Organization Address [facility] de Phone Number [facility] [place] [address] * (ABNORMAL) Basic metabolic panel (08/21/2024 4:48 AM CDT) [facility] Sodium 139 135 - 145 mmol/L Potassium, pl 4.7 3.3 - 4.9 mmol/L [facility] Chloride 107 97 - 110 mmol/L [facility] CO2 26 22 - 32 mmol/L [facility] Anion gap 6 2 - 15 mmol/L [facility] BUN 5(L) 6 - 25 mg/dL [facility] Creatinine 0.73(L) 0.80 - 1.30 mg/dL [facility] Glucose 115 70 - 199 mg/dL [facility] Comment: Interpretive Data Fasting glucose >/= 126 [...] 2022. Calcium 9.3 8.5 - 10.3 mg/dL [facility] Blood 08/21/2024 4:48 AM CDT 08/21/2024 5:47 AM CDT Arley Cheung MD LAB BLOOD ORDERABLES Final Result Performing Organization Address City/[facility]/ZIP Co de Phone Number [facility] Department [place] [address] * POCT glucose (08/20/2024 8:23 PM CDT) Glucose, POC 134 70 - 199 mg/dL Blood 08/20/2024 8:23 PM CDT 08/20/2024 8:23 PM CDT Arley Cheung MD LAB POCT ORDERABLES - DEVIC E Final Result [facility] Department [place] [address] * POCT glucose (08/20/2024 5:21 PM CDT) Glucose, POC 165 70 - 199 mg/dL Blood 08/20/2024 5:21 PM CDT 08/20/2024 5:21 PM CDT us Arley Cheung MD LAB POCT ORDERABLES - DEVIC E Final Result Performing Organization Address City/[facility] Co de Phone Number [facility] [place] [address] * POCT glucose (08/20/2024 12:20 PM CDT) Glucose, POC 74 70 - 199 mg/dL Blood 08/20/2024 12:2 0 PM CDT 08/20/2024 12:20 PM CDT us Arley Cheung MD LAB POCT ORDERABLES - DEVIC E Final Result Performing Organization Address [facility] de Phone Number [facility] [place] [address] * POCT glucose (08/20/2024 7:43 AM CDT) Glucose, POC 97 70 - 199 mg/dL Blood 08/20/2024 7:43 AM CDT 08/20/2024 7:43 AM CDT us Arley Cheung MD LAB POCT ORDERABLES - DEVIC E Final Result Performing Organization Address [facility] Co de Phone Number [facility] [place] [address] * eGFR (08/20/2024 5:13 AM CDT) eGFR [...] Cheung MD LAB BLOOD ORDERABLES Final Result [facility] [place] [address] * (ABNORMAL) Differential, auto (08/20/2024 5:13 AM CDT) Neutrophil abs 2.5 1.5 - 6.5 K/cumm Imm gran abs 0.0 0.0 - 0.1 K/cumm [facility] Lymphocyte abs 2.3 0.8 - 3.3 K/cumm [facility] Monocyte abs 0.6 0.2 - 0.8 K/cumm [facility] Eosinophil abs 0.3 0.0 - 0.5 K/cumm [facility] Basophil abs 0.2(H) 0.0 - 0.1 K/cumm [facility] Neutrophil pct 42.6 % [facility] Comment: Interpretive Data Percent cell count reference ranges are not reported, since discordance with absolute values may lead to misinterpretation of CBC data. Current Interpretive Data was last revised on 2017. Imm gran pct 0.3 % [facility] Comment: Interpretive Data Percent cell count reference ranges are not reported, since discordance with absolute values may lead to misinterpretation of CBC data. Current Interpretive Data was last revised on 2017. Lymphocyte pct 39.7 % [facility] Comment: Interpretive Data Percent cell count reference ranges are not reported, since discordance with absolute values may lead to misinterpretation of CBC data. Current Interpretive Data was last revised on 2017. Monocyte pct 9.7 % [facility] Comment: Interpretive Data Percent cell count reference ranges are not reported, since discordance with absolute values may lead to misinterpretation of CBC data. Current Interpretive Data was last revised on 2017. Eosinophil pct 5.1 % [facility] Comment: Interpretive Data Percent cell count reference ranges are not reported, since discordance with absolute values may lead to misinterpretation of CBC data. Current Interpretive Data was last revised on 2017. Basophil pct 2.6 % [facility] Comment: Interpretive Data Percent cell count reference ranges are not reported, since discordance with absolute values may lead to misinterpretation of CBC data. Current Interpretive Data was last revised on 2017. Blood 08/20/2024 5:13 AM CDT 08/20/2024 5:40 AM CDT Arley Cheung MD LAB BLOOD ORDERABLES Final Result [facility] Department [place] [address] * (ABNORMAL) CBC with auto differential (08/20/2024 5:13 AM CDT) WBC 5.9 3.8 - 9.9 K/cumm Hgb 10.8(L) 13.0 - 17.5 g/dL [facility] Hct 32.6(L) 38.9 - 50.3 % [facility] Plt 628(H) 150 - 400 K/cumm [facility] MPV 8.8(L) 9.1 - 12.3 fL [facility] RBC 3.62(L) 4.30 - 5.80 M/cumm [facility] MCV 90.1 81.3 - 96.4 fL [facility] MCH 29.8 27.1 - 33.3 pg [facility] MCHC 33.1 32.3 - 35.7 g/dL [facility] RDW CV 17.2(H) 11.1 - 14.9 % [facility] RDW SD 57.0(H) 35.7 - 48.1 fL [facility] NRBC abs 0.00 0.00 - 0.01 K/cumm [facility] Blood 08/20/2024 5:13 AM CDT 08/20/2024 5:40 AM CDT Arley Cheung MD LAB BLOOD ORDERABLES Final Result Performing Organization Address City/[facility] Co de Phone Number [facility] [place] [address] * Phosphorus (08/20/2024 5:13 AM CDT) Phosphorus, pl 3.3 2.3 - 4.5 mg/dL Blood 08/20/2024 5:13 AM CDT 08/20/2024 5:41 AM CDT Arley Cheung MD LAB BLOOD ORDERABLES Final Result Performing Organization Address City/[facility] Co de Phone Number [facility] Department [place] [address] * Magnesium (08/20/2024 5:13 AM CDT) Pathologist [facility] Magnesium 2.0 1.4 - 2.5 mg/dL Blood 08/20/2024 5:13 AM CDT 08/20/2024 5:41 AM CDT us Arley Cheung MD LAB BLOOD ORDERABLES Final Result Performing Organization Address City/[facility] Co de Phone Number [facility] [place] [address] * (ABNORMAL) Hepatic function panel (08/20/2024 5:13 AM CDT) Bilirubin, total <0.2 0.1 - 1.2 mg/dL Bilirubin, direct <0.2 0.1 - 0.3 mg/dL [facility] Protein, pl 6.7 6.5 - 8.5 g/dL [facility] Albumin 3.4(L) 3.5 - 5.0 g/dL [facility] Alk phos 87 40 - 130 Units/L [facility] ALT 13 7 - 55 Units/L [facility] AST 17 10 - 50 Units/L [facility] Blood 08/20/2024 5:13 AM CDT 08/20/2024 5:41 AM CDT Arley Cheung MD LAB BLOOD ORDERABLES Final Result [facility] [place] [address] * (ABNORMAL) Basic metabolic panel (08/20/2024 5:13 AM CDT) [facility] Sodium 141 135 - 145 mmol/L Potassium, pl 4.4 3.3 - 4.9 mmol/L [facility] Chloride 105 97 - 110 mmol/L [facility] CO2 26 22 - 32 mmol/L [facility] Anion gap 10 2 - 15 mmol/L [facility] BUN 4(L) 6 - 25 mg/dL [facility] Creatinine 0.80 0.80 - 1.30 mg/dL [facility] Glucose 98 70 - 199 mg/dL [facility] Comment: Interpretive Data Fasting glucose >/= 126 [...] 2022. Calcium 9.5 8.5 - 10.3 mg/dL [facility] Blood 08/20/2024 5:13 AM CDT 08/20/2024 5:41 AM CDT us Arley Cheung MD LAB BLOOD ORDERABLES Final Result Performing Organization Address [facility] de Phone Number [facility] [place] [address] * POCT glucose (08/20/2024 3:12 AM CDT) Glucose, POC 110 70 - 199 mg/dL Blood 08/20/2024 3:12 AM CDT 08/20/2024 3:12 AM CDT us Arley Cheung MD LAB POCT ORDERABLES - DEVIC E Final Result Performing Organization Address [facility] de Phone Number [facility] [place] [address] * POCT glucose (08/20/2024 1:38 AM CDT) Glucose, POC 166 70 - 199 mg/dL Blood 08/20/2024 1:38 AM CDT 08/20/2024 1:38 AM CDT Result Rylan Cheung MD LAB POCT ORDERABLES - DEVIC E Final Result Performing Organization Address [facility] de Phone Number [facility] [place] [address] * (ABNORMAL) POCT glucose (08/19/2024 11:45 PM CDT) Glucose, POC 210(H) 70 - 199 mg/dL Blood 08/19/2024 11:4 5 PM CDT 08/19/2024 11:45 PM CDT us Arley Cheung MD LAB POCT ORDERABLES - DEVIC E Final Result Performing Organization Address [facility] de Phone Number [facility] [place] [address] * POCT glucose (08/19/2024 10:24 PM CDT) Glucose, POC 112 70 - 199 mg/dL Blood 08/19/2024 10:2 4 PM CDT 08/19/2024 10:24 PM CDT us Arley Cheung MD LAB POCT ORDERABLES - DEVIC E Final Result Performing Organization Address [facility] de Phone Number [facility] [place] [address] * POCT glucose (08/19/2024 9:55 PM CDT) Glucose, POC 100 70 - 199 mg/dL Blood 08/19/2024 9:55 PM CDT 08/19/2024 9:55 PM CDT us Arley Cheung MD LAB POCT ORDERABLES - DEVIC E Final Result Performing Organization Address [facility] de Phone Number [facility] [place] [address] * (ABNORMAL) POCT glucose (08/19/2024 8:07 PM CDT) Glucose, POC 376(H) 70 - 199 mg/dL Blood 08/19/2024 8:07 PM CDT 08/19/2024 8:07 PM CDT us Arley Cheung MD LAB POCT ORDERABLES - DEVIC E Final Result Performing Organization Address [facility]/ZIP Co de Phone Number [facility] [place] [address] * (ABNORMAL) POCT glucose (08/19/2024 7:24 PM CDT) Glucose, POC 325(H) 70 - 199 mg/dL Blood 08/19/2024 7:24 PM CDT 08/19/2024 7:24 PM CDT us Arley Cheung MD LAB POCT ORDERABLES - DEVIC E Final Result Performing Organization Address [facility] Co de Phone Number S[facility]O [facility] [place] [address] * eGFR (08/18/2024 10:25 PM CDT) [facility] eGFR >90 >=60 mL/min/1. 73 m2 [...] BLOOD ORDERABLES Final Result [facility] CAN [facility] [place] [address] * (ABNORMAL) Differential, auto (08/18/2024 10:25 PM CDT) Neutrophil abs 3.7 1.5 - 6.5 K/cumm Imm gran abs 0.0 0.0 - 0.1 K/cumm [facility] Lymphocyte abs 2.0 0.8 - 3.3 K/cumm [facility] Monocyte abs 0.9(H) 0.2 - 0.8 K/cumm [facility] Eosinophil abs 0.3 0.0 - 0.5 K/cumm [facility] Basophil abs 0.1 0.0 - 0.1 K/cumm [facility] Neutrophil pct 52.6 % [facility] Comment: Interpretive Data Percent cell count reference ranges are not reported, since discordance with absolute values may lead to misinterpretation of CBC data. Current Interpretive Data was last revised on 2017. Imm gran pct 0.3 % [facility] Comment: Interpretive Data Percent cell count reference ranges are not reported, since discordance with absolute values may lead to misinterpretation of CBC data. Current Interpretive Data was last revised on 2017. Lymphocyte pct 29.0 % [facility] Comment: Interpretive Data Percent cell count reference ranges are not reported, since discordance with absolute values may lead to misinterpretation of CBC data. Current Interpretive Data was last revised on 2017. Monocyte pct 12.8 % [facility] Comment: Interpretive Data Percent cell count reference ranges are not reported, since discordance with absolute values may lead to misinterpretation of CBC data. Current Interpretive Data was last revised on 2017. Eosinophil pct 4.0 % [facility] Comment: Interpretive Data Percent cell count reference ranges are not reported, since discordance with absolute values may lead to misinterpretation of CBC data. Current Interpretive Data was last revised on 2017. Basophil pct 1.3 % [facility] Comment: Interpretive Data Percent cell count reference ranges are not reported, since discordance with absolute values may lead to misinterpretation of CBC data. Current Interpretive Data was last revised on 2017. Blood 08/18/2024 10:2 5 PM CDT 08/18/2024 10:49 PM CDT Arley Cheung MD LAB BLOOD ORDERABLES Final Result Performing Organization Address [facility] de Phone Number [facility] [place] [address] * (ABNORMAL) CBC with auto differential (08/18/2024 10:25 PM CDT) WBC 6.9 3.8 - 9.9 K/cumm Hgb 10.6(L) 13.0 - 17.5 g/dL [facility] Hct 32.5(L) 38.9 - 50.3 % [facility] Plt 700(H) 150 - 400 K/cumm [facility] MPV 8.7(L) 9.1 - 12.3 fL [facility] RBC 3.60(L) 4.30 - 5.80 M/cumm [facility] MCV 90.3 81.3 - 96.4 fL [facility] MCH 29.4 27.1 - 33.3 pg [facility] MCHC 32.6 32.3 - 35.7 g/dL [facility] RDW CV 17.6(H) 11.1 - 14.9 % [facility] RDW SD 57.7(H) 35.7 - 48.1 fL [facility] NRBC abs 0.00 0.00 - 0.01 K/cumm [facility] Blood 08/18/2024 10:2 5 PM CDT 08/18/2024 10:49 PM CDT Arley Cheung MD LAB BLOOD ORDERABLES Final Result Performing Organization Address [facility] Co de Phone Number [facility] [place] [address] * Phosphorus (08/18/2024 10:25 PM CDT) Pathologist [facility] Phosphorus, pl 3.3 2.3 - 4.5 mg/dL Blood 08/18/2024 10:2 5 PM CDT 08/18/2024 10:47 PM CDT Arley Cheung MD LAB BLOOD ORDERABLES Final Result Performing Organization Address City/[facility] Co de Phone Number [facility] [place] [address] * Magnesium (08/18/2024 10:25 PM CDT) [facility] Magnesium 1.9 1.4 - 2.5 mg/dL Blood 08/18/2024 10:2 5 PM CDT 08/18/2024 10:47 PM CDT Arley Cheung MD LAB BLOOD ORDERABLES Final Result Performing Organization Address [facility] de Phone Number [facility] [place] [address] * Hepatic function panel (08/18/2024 10:25 PM CDT) [facility] Bilirubin, total <0.2 0.1 - 1.2 mg/dL Bilirubin, direct <0.2 0.1 - 0.3 mg/dL [facility] Protein, pl 7.1 6.5 - 8.5 g/dL [facility] Albumin 3.5 3.5 - 5.0 g/dL [facility] Alk phos 98 40 - 130 Units/L [facility] ALT 12 7 - 55 Units/L [facility] AST 17 10 - 50 Units/L [facility] Blood 08/18/2024 10:2 5 PM CDT 08/18/2024 10:47 PM CDT Arley Cheung MD LAB BLOOD ORDERABLES Final Result [facility] [place] [address] * (ABNORMAL) Basic metabolic panel (08/18/2024 10:25 PM CDT) Pathologist [facility] Sodium 144 135 - 145 mmol/L Potassium, pl 4.3 3.3 - 4.9 mmol/L [facility] Chloride 105 97 - 110 mmol/L [facility] CO2 30 22 - 32 mmol/L [facility] Anion gap 9 2 - 15 mmol/L [facility] BUN 3(L) 6 - 25 mg/dL [facility] Creatinine 0.72(L) 0.80 - 1.30 mg/dL [facility] Glucose 109 70 - 199 mg/dL [facility] Comment: Interpretive Data Fasting glucose >/= 126 [...] 2022. Calcium 9.6 8.5 - 10.3 mg/dL [facility] Blood 08/18/2024 10:2 5 PM CDT 08/18/2024 10:47 PM CDT Arley Cheung MD LAB BLOOD ORDERABLES Final Result [facility] [place] [address] * eGFR (08/17/2024 8:00 PM CDT) [facility] eGFR >90 >=60 mL/min/1. 73 m2 [...] Cheung MD LAB BLOOD ORDERABLES Final Result [facility] [place] [address] * (ABNORMAL) Differential, auto (08/17/2024 8:00 PM CDT) Neutrophil abs 6.5 1.5 - 6.5 K/cumm Imm gran abs 0.0 0.0 - 0.1 K/cumm [facility] Lymphocyte abs 1.3 0.8 - 3.3 K/cumm [facility] Monocyte abs 0.9(H) 0.2 - 0.8 K/cumm [facility] Eosinophil abs 0.2 0.0 - 0.5 K/cumm [facility] Basophil abs 0.1 0.0 - 0.1 K/cumm [facility] Neutrophil pct 71.5 % [facility] Comment: Interpretive Data Percent cell count reference ranges are not reported, since discordance with absolute values may lead to misinterpretation of CBC data. Current Interpretive Data was last revised on 2017. Imm gran pct 0.3 % [facility] Comment: Interpretive Data Percent cell count reference ranges are not reported, since discordance with absolute values may lead to misinterpretation of CBC data. Current Interpretive Data was last revised on 2017. Lymphocyte pct 14.5 % [facility] Comment: Interpretive Data Percent cell count reference ranges are not reported, since discordance with absolute values may lead to misinterpretation of CBC data. Current Interpretive Data was last revised on 2017. Monocyte pct 10.2 % [facility] Comment: Interpretive Data Percent cell count reference ranges are not reported, since discordance with absolute values may lead to misinterpretation of CBC data. Current Interpretive Data was last revised on 2017. Eosinophil pct 2.6 % [facility] Comment: Interpretive Data Percent cell count reference ranges are not reported, since discordance with absolute values may lead to misinterpretation of CBC data. Current Interpretive Data was last revised on 2017. Basophil pct 0.9 % [facility] Comment: Interpretive Data Percent cell count reference ranges are not reported, since discordance with absolute values may lead to misinterpretation of CBC data. Current Interpretive Data was last revised on 2017. Blood 08/17/2024 8:00 PM CDT 08/17/2024 8:22 PM CDT Arley Cheung MD LAB BLOOD ORDERABLES Final Result [facility] [place] [address] * (ABNORMAL) CBC with auto differential (08/17/2024 8:00 PM CDT) WBC 9.1 3.8 - 9.9 K/cumm Hgb 9.8(L) 13.0 - 17.5 g/dL [facility] Hct 29.8(L) 38.9 - 50.3 % [facility] Plt 670(H) 150 - 400 K/cumm [facility] MPV 8.9(L) 9.1 - 12.3 fL [facility] RBC 3.32(L) 4.30 - 5.80 M/cumm [facility] MCV 89.8 81.3 - 96.4 fL [facility] MCH 29.5 27.1 - 33.3 pg [facility] MCHC 32.9 32.3 - 35.7 g/dL [facility] RDW CV 17.4(H) 11.1 - 14.9 % [facility] RDW SD 57.1(H) 35.7 - 48.1 fL [facility] NRBC abs 0.00 0.00 - 0.01 K/cumm [facility] Blood 08/17/2024 8:00 PM CDT 08/17/2024 8:22 PM CDT us Arley Cheung MD LAB BLOOD ORDERABLES Final Result Performing Organization Address [facility] Co de Phone Number [facility] [place] [address] * (ABNORMAL) Phosphorus (08/17/2024 8:00 PM CDT) Phosphorus, pl 2.2(L) 2.3 - 4.5 mg/dL Blood 08/17/2024 8:00 PM CDT 08/17/2024 8:22 PM CDT us Arley Cheung MD LAB BLOOD ORDERABLES Final Result Performing Organization Address [facility] Co de Phone Number [facility] [place] [address] * Magnesium (08/17/2024 8:00 PM CDT) Magnesium 1.8 1.4 - 2.5 mg/dL Blood 08/17/2024 8:00 PM CDT 08/17/2024 8:22 PM CDT us Arley Cheung MD LAB BLOOD ORDERABLES Final Result Performing Organization Address [facility]/ZIP Co de Phone Number [facility] [place] [address] * (ABNORMAL) Hepatic function panel (08/17/2024 8:00 PM CDT) [facility] Bilirubin, total <0.2 0.1 - 1.2 mg/dL Bilirubin, direct <0.2 0.1 - 0.3 mg/dL [facility] Protein, pl 6.7 6.5 - 8.5 g/dL [facility] Albumin 3.3(L) 3.5 - 5.0 g/dL [facility] Alk phos 106 40 - 130 Units/L [facility] ALT 13 7 - 55 Units/L [facility] AST 17 10 - 50 Units/L [facility] Blood 08/17/2024 8:00 PM CDT 08/17/2024 8:22 PM CDT Arley Cheung MD LAB BLOOD ORDERABLES Final Result [facility] [place] [address] * (ABNORMAL) Basic metabolic panel (08/17/2024 8:00 PM CDT) [facility] Sodium 142 135 - 145 mmol/L Potassium, pl 3.7 3.3 - 4.9 mmol/L [facility] Chloride 106 97 - 110 mmol/L [facility] CO2 25 22 - 32 mmol/L [facility] Anion gap 11 2 - 15 mmol/L [facility] BUN 6 6 - 25 mg/dL [facility] Creatinine 0.74(L) 0.80 - 1.30 mg/dL [facility] Glucose 143 70 - 199 mg/dL [facility] Comment: Interpretive Data Fasting glucose >/= 126 [...] Calcium 9.3 8.5 - 10.3 mg/dL [facility] Blood 08/17/2024 8:00 PM CDT 08/17/2024 8:22 PM CDT Arley Cheung MD LAB BLOOD ORDERABLES Final Result [facility] [place] [address] * Blood culture Blood (08/17/2024 12:12 PM CDT) Report Final Report: No growth Blood 08/17/2024 12:1 2 PM CDT 08/17/2024 12:29 PM CDT Narrative [facility] - 08/21/2024 4:00 PM CDT From a [...] performance characteristics have been verified by the [facility]. For questions about this culture, contact the Microbiology Laboratory at [phone]. Interpretive data was last revised on 24. Melecio Michelle MD LAB MICROBIOLOGY - GEN ERAL ORDERABLES Final Result Performing Organization Address City/[facility]/ZIP Co de Phone Number [facility] [place] [address] * Blood culture Blood (08/17/2024 12:12 PM CDT) Report Final Report: No growth Blood 08/17/2024 12:1 2 PM CDT 08/17/2024 12:29 PM CDT Narrative [facility] - 08/21/2024 4:00 PM CDT Collection->Peripheral 1. [...] performance characteristics have been verified by the [facility]. For questions about this culture, contact the Microbiology Laboratory at [phone]. Interpretive data was last revised on 24. Melecio Michelle MD LAB MICROBIOLOGY - GEN ERAL ORDERABLES Final Result Performing Organization Address City/[facility]/ZIP Co de Phone Number [facility] [place] [address] * C. difficile testing Stool (08/17/2024 10:50 AM CDT) [facility] Result Negative Negative Toxin Result Negative Negative [facility] C. diff result Negative, free toxin Negative, free toxin [facility] C. diff interp Negative for toxigenic Clostridioides (Clostridium) difficile. Analysis was performed using a glutamate dehydrogenase antigen detection assay combined with a C. difficile toxin detection assay. [facility] Stool 08/17/2024 10:5 0 AM CDT 08/17/2024 11:00 AM CDT Narrative [facility] - 08/17/2024 11:31 AM CDT Testing for C. difficile is not recommended within 4 days of a negative result, 10 days of a positive, or 24 hours after laxative administration. If this order is clinically indicated, contact the lab and enter the passcode to complete this order.->[id number] Arley Cheung MD LAB MICROBIOLOGY - GENERAL ORDERABLES Final Result [facility] [place] [address] * eGFR (08/16/2024 11:14 PM CDT) Pathologist [facility] eGFR >90 >=60 mL/min/1. 73 m2 [...] Cheung MD LAB BLOOD ORDERABLES Final Result [facility] [place] [address] * Differential, auto (08/16/2024 11:14 PM CDT) Neutrophil abs 2.8 1.5 - 6.5 K/cumm Imm gran abs 0.0 0.0 - 0.1 K/cumm [facility] Lymphocyte abs 1.1 0.8 - 3.3 K/cumm [facility] Monocyte abs 0.8 0.2 - 0.8 K/cumm [facility] Eosinophil abs 0.3 0.0 - 0.5 K/cumm [facility] Basophil abs 0.1 0.0 - 0.1 K/cumm [facility] Neutrophil pct 53.8 % [facility] Comment: Interpretive Data Percent cell count reference ranges are not reported, since discordance with absolute values may lead to misinterpretation of CBC data. Current Interpretive Data was last revised on 2017. Imm gran pct 0.4 % [facility] Comment: Interpretive Data Percent cell count reference ranges are not reported, since discordance with absolute values may lead to misinterpretation of CBC data. Current Interpretive Data was last revised on 2017. Lymphocyte pct 22.2 % [facility] Comment: Interpretive Data Percent cell count reference ranges are not reported, since discordance with absolute values may lead to misinterpretation of CBC data. Current Interpretive Data was last revised on 2017. Monocyte pct 15.7 % [facility] Comment: Interpretive Data Percent cell count reference ranges are not reported, since discordance with absolute values may lead to misinterpretation of CBC data. Current Interpretive Data was last revised on 2017. Eosinophil pct 5.9 % [facility] Comment: Interpretive Data Percent cell count reference ranges are not reported, since discordance with absolute values may lead to misinterpretation of CBC data. Current Interpretive Data was last revised on 2017. Basophil pct 2.0 % [facility] Comment: Interpretive Data Percent cell count reference ranges are not reported, since discordance with absolute values may lead to misinterpretation of CBC data. Current Interpretive Data was last revised on 2017. Blood 08/16/2024 11:1 4 PM CDT 08/17/2024 1:03 AM CDT us Arley Cheung MD LAB BLOOD ORDERABLES Final Result [facility] [place] [address] * (ABNORMAL) CBC with auto differential (08/16/2024 11:14 PM CDT) WBC 5.1 3.8 - 9.9 K/cumm Hgb 10.0(L) 13.0 - 17.5 g/dL [facility] Hct 30.6(L) 38.9 - 50.3 % [facility] Plt 702(H) 150 - 400 K/cumm [facility] MPV 9.0(L) 9.1 - 12.3 fL [facility] RBC 3.36(L) 4.30 - 5.80 M/cumm [facility] MCV 91.1 81.3 - 96.4 fL [facility] MCH 29.8 27.1 - 33.3 pg [facility] MCHC 32.7 32.3 - 35.7 g/dL [facility] RDW CV 17.5(H) 11.1 - 14.9 % [facility] RDW SD 58.3(H) 35.7 - 48.1 fL [facility] NRBC abs 0.00 0.00 - 0.01 K/cumm [facility] Blood 08/16/2024 11:1 4 PM CDT 08/17/2024 1:03 AM CDT Arley Cheung MD LAB BLOOD ORDERABLES Final Result Performing Organization Address City/[facility] Co de Phone Number [facility] [place] [address] * Phosphorus (08/16/2024 11:14 PM CDT) Pathologist [facility] Phosphorus, pl 2.5 2.3 - 4.5 mg/dL Blood 08/16/2024 11:1 4 PM CDT 08/17/2024 1:03 AM CDT Arley Cheung MD LAB BLOOD ORDERABLES Final Result Performing Organization Address [facility] Co de Phone Number [facility] [place] [address] * Magnesium (08/16/2024 11:14 PM CDT) [facility] Magnesium 2.0 1.4 - 2.5 mg/dL Blood 08/16/2024 11:1 4 PM CDT 08/17/2024 1:03 AM CDT Arley Cheung MD LAB BLOOD ORDERABLES Final Result Performing Organization Address [facility] Co de Phone Number [facility] [place] [address] * (ABNORMAL) Hepatic function panel (08/16/2024 11:14 PM CDT) Bilirubin, total <0.2 0.1 - 1.2 mg/dL Comment:Reviewed Bilirubin, direct <0.2 0.1 - 0.3 mg/dL [facility] Protein, pl 6.6 6.5 - 8.5 g/dL [facility] Albumin 3.2(L) 3.5 - 5.0 g/dL [facility] Alk phos 111 40 - 130 Units/L [facility] ALT 12 7 - 55 Units/L [facility] AST 28 10 - 50 Units/L [facility] Blood 08/16/2024 11:1 4 PM CDT 08/17/2024 1:03 AM CDT Arley Cheung MD LAB BLOOD ORDERABLES Final Result [facility] [place] [address] * Basic metabolic panel (08/16/2024 11:14 PM CDT) [facility] Sodium 140 135 - 145 mmol/L Potassium, pl 3.8 3.3 - 4.9 mmol/L [facility] Chloride 106 97 - 110 mmol/L [facility] CO2 23 22 - 32 mmol/L [facility] Anion gap 11 2 - 15 mmol/L [facility] BUN 6 6 - 25 mg/dL [facility] Creatinine 0.81 0.80 - 1.30 mg/dL [facility] Glucose 188 70 - 199 mg/dL [facility] Comment: Interpretive Data Fasting glucose >/= 126 [...] 2022. Calcium 8.9 8.5 - 10.3 mg/dL [facility] Blood 08/16/2024 11:1 4 PM CDT 08/17/2024 1:03 AM CDT Arley Cheung MD LAB BLOOD ORDERABLES Final Result Performing Organization Address City/[facility]/ZIP Co de Phone Number [facility] [place] [address] * XR Outside Reference (08/16/2024 7:30 PM CDT) Impressions [email or web address] - 08/16/2024 7:30 PM CDT These images are for Reference purposes only and have not been reviewed by [facility]. There will be no report generated by a [facility] Radiologist. Narrative [email or web address] - 08/16/2024 7:30 PM [...] images may or may not represent the lummi source data set and thus may contain [...] IMAGING STUDY STUDY INITIALLY PERFORMED: 08/09/2024 at [facility]. TYPE OF STUDY: Multiple MRI/MRCP [...] IMAGING STUDY STUDY INITIALLY PERFORMED: 08/09/2024 at [facility]. TYPE OF STUDY: Multiple MRI/MRCP [...] images may or may not represent the lummi source data set and thus may contain [...] only and have not been reviewed by [facility]. There will be no report generated by a [facility] Radiologist. Narrative [email or web address] - 08/16/2024 6:01 PM CDT EXAMINATION: Images For Reference Purposes Only Melecio Michelle MD IMG XR PROCEDURES Maisha l Result Performing Organization Address [facility] Co de Phone Number [email or web address] * XR Outside Reference (08/16/2024 6:00 PM CDT) Impressions [email or web address] - 08/16/2024 6:00 PM CDT These images are for Reference purposes only and have not been reviewed by [facility]. There will be no report generated by a [facility] Radiologist. Narrative [email or web address] - 08/16/2024 6:00 PM CDT EXAMINATION: Images For Reference Purposes Only Melecio Michelle MD IMG XR PROCEDURES Maisha l Result Performing Organization Address [facility] Co de Phone Number [email or web address] * CT [...] report of this study generated by a [facility] Radiologist. Electronically signed by: Evelin Cho [...] report of this study generated by a [facility] Radiologist. Electronically signed by: Evelin Cho M.D. Melecio Michelle MD IMG CT PROCEDURES Maisha l Result * Infection Prevention Lanny auris PCR, surveillance Axilla/Groin (08/16/2024 2:02 PM CDT) Lanny auris DNA Not Detected Not Detected [facility] Comment: Interpretive Data Testing performed by [facility] using the [employer] [id number] [id number] Lanny auris assay. This assay detects DNA from Lanny auris using Real-Time PCR. This assay is laboratory developed and is not cleared by the [place] Food and Drug Administration. The performance characteristics have been verified by the [facility]. Axilla/Groin 08/16/2024 2:02 PM CDT 08/16/2024 2:36 PM CDT Michael Claudio MD LAB MICROBIOLOGY - GENERAL ORDER DELIO Final Result [facility] [place] [address] [facility] * CT Chest Abdomen Pelvis W Contrast [...] testing Stool (08/16/2024 10:31 AM CDT) Pathologist Count includes the [facility] Result Negative Negative Toxin Result Negative Negative [facility] C. diff result Negative, free toxin Negative, free toxin [facility] C. diff interp Negative for toxigenic Clostridioides (Clostridium) difficile. Analysis was performed using a glutamate dehydrogenase antigen detection assay combined with a C. difficile toxin detection assay. [facility] Stool 08/16/2024 10:3 1 AM CDT 08/16/2024 12:41 PM CDT Arley Cheung MD LAB MICROBIOLOGY - GENERAL ORDERABLES Final Result Performing Organization Address City/[facility]/ZIP Co de Phone Number [place] [place] [address] * Calprotectin, fecal (08/16/2024 10:31 AM CDT) [facility] Calprotectin, fecal <50.0 <50.0 (Normal) mcg/g [place] Comment: Test Performed by: [place] [address] Golf Player Assistant: Rubio Michel Ph.D.; IA# [id number] Stool 08/16/2024 10:3 1 AM CDT 08/16/2024 1:01 PM CDT Arley Cheung MD LAB BODY FLUIDS AND STOOLS ORDERABLES Final Result Performing Organization Address City/[facility] Co de Phone Number [place] [facility] [place] [address] [facility] * Norovirus PCR Stool (08/16/2024 10:31 AM CDT) [facility] Norovirus GI RNA Not Detected Not Detected [facility] Norovirus GII RNA Not Detected Not Detected [facility] Comment: Interpretive data: Testing performed at the [facility] using the [employer] Xpert Norovirus Assay. This assay uses nucleic [...] GENERAL ORDERABLES Final Result Performing Organization Address City/[facility] Co de Phone Number [facility] [place] [address] [facility] * Stool culture Stool Rectum (08/16/2024 10:31 AM CDT) Direct Specimen Exam Shiga Toxin Testing: Antigen detection assay for Shiga-toxin NEGATIVE for Shiga Toxin 1 and Shiga Toxin 2. Report Final Report: No growth of enteric bacterial pathogens [facility] Stool (Rectum) 08/16/2024 10 :31 AM CDT 08/16/2024 12:41 PM CDT Narrative [facility] - 08/20/2024 8:30 AM CDT Testing performed by [facility] ([phone]). Routine stool cultures include procedures to detect Salmonella, Shigella, Edwardsiella, Aeromonas, Pleisiomonas, Campylobacter, Yersinia, E. coli O157, and Shiga-like toxins. Vibrio is cultured only upon special request. If Vibrio is suspected, please call the laboratory at [phone]. Interpretive data was last updated October 03, 2016. Arley Cheung MD LAB MICROBIOLOGY - GENERAL ORDERABLES Final Result Performing Organization Address [facility] Co de Phone Number [facility] Department [place] [address] * Infection Prevention VRE Culture Stool (08/16/2024 10:27 AM CDT) Report Final Report: Negative Stool 08/16/2024 10:2 7 AM CDT 08/16/2024 2:55 PM CDT Narrative [facility] - 08/18/2024 6:13 PM CDT Surveillance culture for Infection Prevention purposes only; results indicate colonization, not infection requiring treatment. Testing performed by [facility] ([phone]). Arley Cheung MD LAB MICROBIOLOGY - GENERAL ORDERABLES Final Result [facility] [place] [address] * Differential, auto (08/16/2024 5:16 AM CDT) Neutrophil abs 4.5 1.5 - 6.5 K/cumm Imm gran abs 0.0 0.0 - 0.1 K/cumm [facility] Lymphocyte abs 1.1 0.8 - 3.3 K/cumm [facility] Monocyte abs 0.7 0.2 - 0.8 K/cumm [facility] Eosinophil abs 0.1 0.0 - 0.5 K/cumm [facility] Basophil abs 0.1 0.0 - 0.1 K/cumm [facility] Neutrophil pct 68.8 % [facility] Comment: Interpretive Data Percent cell count reference ranges are not reported, since discordance with absolute values may lead to misinterpretation of CBC data. Current Interpretive Data was last revised on 2017. Imm gran pct 0.5 % [facility] Comment: Interpretive Data Percent cell count reference ranges are not reported, since discordance with absolute values may lead to misinterpretation of CBC data. Current Interpretive Data was last revised on 2017. Lymphocyte pct 16.7 % [facility] Comment: Interpretive Data Percent cell count reference ranges are not reported, since discordance with absolute values may lead to misinterpretation of CBC data. Current Interpretive Data was last revised on 2017. Monocyte pct 10.5 % [facility] Comment: Interpretive Data Percent cell count reference ranges are not reported, since discordance with absolute values may lead to misinterpretation of CBC data. Current Interpretive Data was last revised on 2017. Eosinophil pct 1.7 % [facility] Comment: Interpretive Data Percent cell count reference ranges are not reported, since discordance with absolute values may lead to misinterpretation of CBC data. Current Interpretive Data was last revised on 2017. Basophil pct 1.8 % [facility] Comment: Interpretive Data Percent cell count reference ranges are not reported, since discordance with absolute values may lead to misinterpretation of CBC data. Current Interpretive Data was last revised on 2017. Blood 08/16/2024 5:16 AM CDT 08/16/2024 5:50 AM CDT us John De Anda MD LAB BLOOD ORDERABLES Final Result Performing Organization Address City/[facility]/ZIP Co de Phone Number [facility] Department [place] [address] * (ABNORMAL) Iron profile w/ IBC (08/16/2024 5:16 AM CDT) Pathologist [facility] Iron 41(L) 50 - 150 mcg/dL TIBC 152(L) 250 - 400 mcg/dL [facility] Transferrin saturation 27 20 - 50 % [facility] Blood 08/16/2024 5:16 AM CDT 08/16/2024 5:50 AM CDT us Arley Cheung MD LAB BLOOD ORDERABLES Final Result [facility] [place] [address] * (ABNORMAL) CBC with auto differential (08/16/2024 5:16 AM CDT) WBC 6.6 3.8 - 9.9 K/cumm Hgb 10.1(L) 13.0 - 17.5 g/dL [facility] Hct 31.3(L) 38.9 - 50.3 % [facility] Plt 710(H) 150 - 400 K/cumm [facility] MPV 8.8(L) 9.1 - 12.3 fL [facility] RBC 3.44(L) 4.30 - 5.80 M/cumm [facility] MCV 91.0 81.3 - 96.4 fL [facility] MCH 29.4 27.1 - 33.3 pg [facility] MCHC 32.3 32.3 - 35.7 g/dL [facility] RDW CV 17.6(H) 11.1 - 14.9 % [facility] RDW SD 58.5(H) 35.7 - 48.1 fL [facility] NRBC abs 0.00 0.00 - 0.01 K/cumm [facility] Blood 08/16/2024 5:16 AM CDT 08/16/2024 5:50 AM CDT John De Anda MD LAB BLOOD ORDERABLES Final Result [facility] [place] [address] * Phosphorus (08/16/2024 5:16 AM CDT) Phosphorus, pl 3.0 2.3 - 4.5 mg/dL Blood 08/16/2024 5:16 AM CDT 08/16/2024 5:50 AM CDT John De Anda MD LAB BLOOD ORDERABLES Final Result [facility] [place] [address] * Magnesium (08/16/2024 5:16 AM CDT) Magnesium 2.1 1.4 - 2.5 mg/dL Blood 08/16/2024 5:16 AM CDT 08/16/2024 5:50 AM CDT John De Anda MD LAB BLOOD ORDERABLES Final Result [facility] [place] [address] * Folate (08/16/2024 5:16 AM CDT) Folic acid >20.0 >=5.0 ng/mL Blood 08/16/2024 5:16 AM CDT 08/16/2024 5:50 AM CDT Arley Cheung MD LAB BLOOD ORDERABLES Final Result Performing Organization Address [facility] [place] [address] * (ABNORMAL) Ferritin (08/16/2024 5:16 AM CDT) Pathologist [facility] Ferritin 527(H) 30 - 400 ng/mL Blood 08/16/2024 5:16 AM CDT 08/16/2024 5:50 AM CDT Arley Cheung MD LAB BLOOD ORDERABLES Final Result Performing Organization Address City/[facility] Co de Phone Number [facility] [place] [address] * Vitamin B12 (08/16/2024 5:16 AM CDT) Vitamin B12 810 230 - 1,250 pg/mL Blood 08/16/2024 5:16 AM CDT 08/16/2024 5:50 AM CDT Arley Cheung MD LAB BLOOD ORDERABLES Final Result Performing Organization Address City/[facility]/ZIP Co de Phone Number [facility] [place] [address] * (ABNORMAL) Hepatic function panel (08/16/2024 5:16 AM CDT) Pathologist [facility] Bilirubin, total 0.2 0.1 - 1.2 mg/dL Comment:Reviewed Bilirubin, direct <0.2 0.1 - 0.3 mg/dL [facility] Protein, pl 6.7 6.5 - 8.5 g/dL [facility] Albumin 3.4(L) 3.5 - 5.0 g/dL [facility] Alk phos 122 40 - 130 Units/L [facility] ALT 11 7 - 55 Units/L [facility] AST 20 10 - 50 Units/L [facility] Blood 08/16/2024 5:16 AM CDT 08/16/2024 5:50 AM CDT us Arley Cheung MD LAB BLOOD ORDERABLES Final Result Performing Organization Address City/State/[facility] Co de Phone Number [facility] [place] [address] * ECG 12 lead (08/16/2024 1:04 AM CDT) Pathologist [facility] Ventricular Rate EKG/Min 104 BPM [facility] Atrial Rate 104 BPM [facility] MI-Interval (MSEC) 156 ms [facility] QRS-Interval (MSEC) 86 ms [facility] QT-Interval (MSEC) 352 ms [facility] QTc 462 ms [facility] P [place] 49 degrees [facility] R [place] -23 degrees [facility] T [place] 31 degrees [facility] Diagnosis Sinus tachycardia Otherwise normal ECG When compared with ECG of 24-SEP-2019 19:36, No significant change was found Confirmed by Dakotah Khan MD ([id number]) on 08/21/2024 2:38:38 PM [facility] 08/16/2024 1:04 AM CDT 08/21/2024 2:38 PM CDT us John De Anda MD ECG ORDERABLES Final Resul t Performing Organization Address City/[facility] Co de Phone Number [facility] * Urinalysis reflex to microscopic and culture Urine (08/16/2024 12:17 AM CDT) Pathologist [facility] Color, ur Yellow Yellow Clarity, ur Clear Clear [facility] Specific gravity, ur 1.018 1.003 - 1.030 [facility] pH, urine 7.0 [facility] Comment: Interpretive Data U rine pH is affected by diet, medications, systemic acid-base disturbances, and renal tubular function. pH may affect urinary stone formation. For example, urine pH below 6.0 may help reduce the tendency for calcium phosphate stones and pH greater than 6.0 may reduce the tendency for uric acid stone formation. Source: [facility] [employer] Current Interpretive Data was last revised on 2017 Protein, ur ql Negative Negative [facility] Glucose, ur ql Negative Negative [facility] Ketones, ur Negative Negative [facility] Bilirubin, ur Negative Negative [facility] Blood, ur Negative Negative [facility] Urobilinogen, ur <2.0 <2.0 mg/dL [facility] Nitrite, ur Negative Negative [facility] Leukocyte esterase, ur Negative Negative [facility] UA reflex comment Reflex conditions for microscopic UA and culture not met. [facility] Urine 08/16/2024 12:1 7 AM CDT 08/16/2024 1:21 AM CDT John De Anda MD LAB MICROBIOLOGY - GENERAL ORDERABLES Final Result Performing Organization Address [facility] Co de Phone Number [facility] Department [place] [address] * Respiratory pathogen panel Nasopharyngeal (08/16/2024 12:17 AM CDT) [facility] Influenza A RNA Not Detected Not Detected Influenza B RNA Not Detected Not Detected [facility] RSV RNA Not Detected Not Detected [facility] COVID-19 RNA Not Detected Not Detected [facility] Coronavirus 229E RNA Not Detected Not Detected [facility] Coronavirus HKU1 RNA Not Detected Not Detected [facility] Coronavirus NL63 RNA Not Detected Not Detected [facility] Coronavirus OC43 RNA Not Detected Not Detected [facility] Adenovirus DNA Not Detected Not Detected [facility] Metapneumovirus RNA Not Detected Not Detected [facility] Rhinovirus/Enterov irus RNA Not Detected Not Detected [facility] Parainfluenza 1 RNA Not Detected Not Detected [facility] Parainfluenza 2 RNA Not Detected Not Detected [facility] Parainfluenza 3 RNA Not Detected Not Detected [facility] Parainfluenza 4 RNA Not Detected Not Detected [facility] B. pertussis DNA Not Detected Not Detected [facility] B. parapertussis DNA Not Detected Not Detected [facility] C. pneumoniae DNA Not Detected Not Detected [facility] M. pneumoniae DNA Not Detected Not Detected [facility] Nasopharyngeal 08/16/2024 12 :17 AM CDT 08/16/2024 1:27 AM CDT Narrative [facility] - 08/16/2024 2:22 AM CDT Is the Patient experiencing symptoms consistent with COVID?->No Surveillance testing for transplant patient?->No Interpretive Data The [employer] Film[employer] Respiratory Panel (RP2.1) assay is a [...] assay has FDA clearance for testing of CHUTE GREASER swabs. The performance of additional specimen types has been assessed by the performing laboratory. The performance characteristics of this assay have been determined by [facility]. Current interpretive data was last revised on 22. Arley Cheung MD LAB MICROBIOLOGY - GENERAL ORDERABLES Final Result [facility] [place] [address] * eGFR (08/15/2024 11:28 PM CDT) eGFR [...] Anda MD LAB BLOOD ORDERABLES Final Result [facility] [place] [address] * (ABNORMAL) Differential, auto (08/15/2024 11:28 PM CDT) Neutrophil abs 7.9(H) 1.5 - 6.5 K/cumm Imm gran abs 0.1 0.0 - 0.1 K/cumm [facility] Lymphocyte abs 0.6(L) 0.8 - 3.3 K/cumm [facility] Monocyte abs 0.7 0.2 - 0.8 K/cumm [facility] Eosinophil abs 0.1 0.0 - 0.5 K/cumm [facility] Basophil abs 0.1 0.0 - 0.1 K/cumm [facility] Neutrophil pct 84.3 % [facility] Comment: Interpretive Data Percent cell count reference ranges are not reported, since discordance with absolute values may lead to misinterpretation of CBC data. Current Interpretive Data was last revised on 2017. Imm gran pct 0.7 % [facility] Comment: Interpretive Data Percent cell count reference ranges are not reported, since discordance with absolute values may lead to misinterpretation of CBC data. Current Interpretive Data was last revised on 2017. Lymphocyte pct 6.1 % [facility] Comment: Interpretive Data Percent cell count reference ranges are not reported, since discordance with absolute values may lead to misinterpretation of CBC data. Current Interpretive Data was last revised on 2017. Monocyte pct 7.1 % [facility] Comment: Interpretive Data Percent cell count reference ranges are not reported, since discordance with absolute values may lead to misinterpretation of CBC data. Current Interpretive Data was last revised on 2017. Eosinophil pct 0.7 % [facility] Comment: Interpretive Data Percent cell count reference ranges are not reported, since discordance with absolute values may lead to misinterpretation of CBC data. Current Interpretive Data was last revised on 2017. Basophil pct 1.1 % [facility] Comment: Interpretive Data Percent cell count reference ranges are not reported, since discordance with absolute values may lead to misinterpretation of CBC data. Current Interpretive Data was last revised on 2017. Blood 08/15/2024 11:2 8 PM CDT 08/15/2024 11:31 PM CDT John De Anda MD LAB BLOOD ORDERABLES Final Result Performing Organization Address City/[facility]/ZIP Co de Phone Number [facility] [place] [address] * Thyroid Function [place] (08/15/2024 11:28 PM CDT) TSH 0.72 0.30 - 4.20 mcIUnit/mL Blood 08/15/2024 11:2 8 PM CDT 08/15/2024 11:31 PM CDT John De Anda MD LAB BLOOD ORDERABLES Final Result Performing Organization Address City/[facility] Co de Phone Number [facility] [place] [address] * HIV 1/2 Antibody plus p24 Antigen [...] GENERAL ORDERABLES Final Result Performing Organization Address City/[facility]/ZIP Co de Phone Number [facility] [place] [address] * (ABNORMAL) CBC with auto differential (08/15/2024 11:28 PM CDT) [facility] WBC 9.4 3.8 - 9.9 K/cumm Hgb 9.4(L) 13.0 - 17.5 g/dL [facility] Hct 28.3(L) 38.9 - 50.3 % [facility] Plt 654(H) 150 - 400 K/cumm [facility] MPV 8.8(L) 9.1 - 12.3 fL [facility] RBC 3.11(L) 4.30 - 5.80 M/cumm [facility] MCV 91.0 81.3 - 96.4 fL [facility] MCH 30.2 27.1 - 33.3 pg [facility] MCHC 33.2 32.3 - 35.7 g/dL [facility] RDW CV 17.7(H) 11.1 - 14.9 % [facility] RDW SD 59.1(H) 35.7 - 48.1 fL [facility] NRBC abs 0.00 0.00 - 0.01 K/cumm [facility] Blood 08/15/2024 11:2 8 PM CDT 08/15/2024 11:31 PM CDT us John De Anda MD LAB BLOOD ORDERABLES Final Result [facility] [place] [address] * Hepatitis C antibody Blood (08/15/2024 11:28 PM CDT) Pathologist [facility] Hep C Ab Nonreactive Nonreactive Comment:Antibodies to HCV no t detected. Does NOT exclude the possibility of recent exposure to HCV. Current interpretive data was last revised on 22 Blood 08/15/2024 11:2 8 PM CDT 08/15/2024 11:33 PM CDT John De Anda MD LAB MICROBIOLOGY - GENERAL ORDERABLES Final Result Performing Organization Address [facility] Co de Phone Number [facility] [place] [address] * RPR Blood (08/15/2024 11:28 PM CDT) RPR Nonreactive Nonreactive Blood 08/15/2024 11:2 8 PM CDT 08/15/2024 11:31 PM CDT John De Anda MD LAB MICROBIOLOGY - GENERAL ORDERABLES Final Result Performing Organization Address [facility] de Phone Number [facility] [place] [address] * Hepatitis B Surface Antigen Blood (08/15/2024 11:28 PM CDT) Pathologist [facility] HepBsAg Nonreactive Nonreactive Blood 08/15/2024 11:2 8 PM CDT 08/15/2024 11:33 PM CDT John De Anda MD LAB MICROBIOLOGY - GENERAL ORDERABLES Final Result Performing Organization Address [facility] [place] [address] * aPTT (08/15/2024 11:28 PM CDT) Pathologist [facility] aPTT 35 28 - 38 sec Comment: Interpretive Data Heparin therapeutic range: 66.0 - 100.0 seconds. Range based on correlation with therapeutic heparin activity range of 0.3 - 0.7 Units/mL. Current interpretive data was last revised on 2023. Blood 08/15/2024 11:2 8 PM CDT 08/15/2024 11:35 PM CDT John De Anda MD LAB BLOOD ORDERABLES Final Result Performing Organization Address [facility] Co de Phone Number [facility] [place] [address] * Protime-INR (08/15/2024 11:28 PM CDT) PT 12.6 9.7 - 13.0 sec INR 1.16 0.90 - 1.20 [facility] Comment: Interpretive data Oral anticoagulant therapeutic ranges: [...] ORDERABLES Final Result Performing Organization Address [facility] Co de Phone Number [facility] [place] [address] * Type and screen (08/15/2024 11:28 PM CDT) ABO Rh O Positive [place], indirect Negative [facility] Blood 08/15/2024 11:2 8 PM CDT 08/15/2024 11:36 PM CDT Narrative [facility] - 08/16/2024 12:23 AM CDT Has the patient had Daratumumab or Isatuximab in the past 6 months?->Unknown John De Anda MD LAB BLOOD BANK TEST ORDERAB LES Final Result Performing Organization Address City/[facility]/ZIP Co de Phone Number [facility] [place] [address] * (ABNORMAL) Phosphorus (08/15/2024 11:28 PM CDT) [facility] Phosphorus, pl 2.0(L) 2.3 - 4.5 mg/dL Blood 08/15/2024 11:2 8 PM CDT 08/15/2024 11:32 PM CDT John De Anda MD LAB BLOOD ORDERABLES Final Result Performing Organization Address City/[facility] [place] [address] * Magnesium (08/15/2024 11:28 PM CDT) [facility] Magnesium 1.8 1.4 - 2.5 mg/dL Blood 08/15/2024 11:2 8 PM CDT 08/15/2024 11:32 PM CDT John De Anda MD LAB BLOOD ORDERABLES Final Result Performing Organization Address City/[facility] Co de Phone Number [facility] [place] [address] * Lipase (08/15/2024 11:28 PM CDT) [facility] Lipase 24 10 - 99 Units/L Blood 08/15/2024 11:2 8 PM CDT 08/15/2024 11:31 PM CDT John De Anda MD LAB BLOOD ORDERABLES Final Result Performing Organization Address City/[facility] Co de Phone Number [facility] [place] [address] * Hemoglobin A1c (08/15/2024 11:28 PM CDT) [facility] Hgb A1C 5.2 4.0 - 5.6 % Estimated Average Glucose 103 mg/dL [facility] Comment: The ADA recommends reporting an estimated [...] Anda MD LAB BLOOD ORDERABLES Final Result [facility] [place] [address] * (ABNORMAL) Lipid panel (08/15/2024 11:28 PM CDT) Pathologist [facility] Cholesterol 90 30 - 199 mg/dL [...] revised on 2018. Triglycerides 93 <=149 mg/dL [facility] Comment: Interpretive Data Ages < or = [...] on 2018. HDL 27(L) >=40 mg/dL [facility] [facility] Comment: Interpretive Data Ages < or = [...] 2018. LDL, calculated 45 <=129 mg/dL [facility] Comment: Interpretive Data Ages < or = [...] on 2024. Non-HDL Cholesterol 63 mg/dL [facility] Comment: Interpretive Data Ages < or = [...] last revised on 2018. Chol/HDL ratio 3 [facility] Blood 08/15/2024 11:2 8 PM CDT 08/15/2024 11:32 PM CDT us John De Anda MD LAB BLOOD ORDERABLES Final Result [facility] [place] [address] * (ABNORMAL) Comprehensive metabolic panel (08/15/2024 11:28 PM CDT) Sodium 132(L) 135 - 145 mmol/L Potassium, pl 3.8 3.3 - 4.9 mmol/L [facility] Chloride 99 97 - 110 mmol/L [facility] CO2 24 22 - 32 mmol/L [facility] Anion gap 9 2 - 15 mmol/L [facility] BUN 7 6 - 25 mg/dL [facility] Creatinine 1.01 0.80 - 1.30 mg/dL [facility] Glucose 122 70 - 199 mg/dL [facility] Comment: Interpretive Data Fasting glucose >/= 126 [...] 2022. Calcium 9.0 8.5 - 10.3 mg/dL [facility] Bilirubin, total <0.2 0.1 - 1.2 mg/dL [facility] Protein, pl 6.7 6.5 - 8.5 g/dL [facility] Albumin 3.2(L) 3.5 - 5.0 g/dL [facility] Alk phos 122 40 - 130 Units/L [facility] ALT 12 7 - 55 Units/L [facility] AST 19 10 - 50 Units/L [facility] Blood 08/15/2024 11:2 8 PM CDT 08/15/2024 11:32 PM CDT John De Anda MD LAB BLOOD ORDERABLES Final Result Performing Organization Address City/State/[facility] Co de Phone Number [facility] [place] [address] from Last 3 Months Insurance [facility] MEDICARE ADVANTAGE [facility] Address: [address] [address] [place] [address] CIG CIGNA [facility] MEDICARE ADVANTAGE [facility] Address: [address] [address] [place] [address] Advance Directives For more information, please contact: [phone] * Full Code (Latest Code Status on [...] 4:45 AM 06/13/2023 8:44 PM Care Teams Slide Fasteners Inspector Relationship Specialty Start Date End Date Ronnell Escobar NP [id number] [place] [address] PCP - General Nurse Practitioner 08/16/24
--- NOTE | 2024-11-04 00:52 | ED.ABDPAIN ---
HPI - Abdominal Pain General Chief Complaint: Abdominal Pain Stated Complaint: Epigastric pain/ETOH use Time Seen by Provider: 11/04/24 00:24 History of Present Illness HPI narrative: Patient is a 59-year-old male who presents emergency department this evening complaining of epigastric pain. Patient admits that he does have a history of alcohol abuse and got out of a 30 day rehab program on October 16. Patient admits that he has been drinking today and had at least 2 5th of alcohol since noon. Admits to history of chronic pancreatitis. Pain is mainly in the epigastric and left upper quadrant region. Has been vomiting and admits to nausea. Denies any additional symptoms or concerns. Related Data Home Medications ?Medication ?Instructions ?Recorded ?Confirmed ?Last Taken ?Type [id number]-stnx-epqvz acid 400 1 tablet PO DAILY 02/03/21 08/03/24 07/31/24 History mcg-lycopene 600 mcg-ginkgo 120 mg tablet potassium gluconate 595 mg (99 mg) 99 mg PO DAILY 04/25/23 08/03/24 07/31/24 History tablet losartan 25 mg tablet 25 mg PO DAILY 06/28/23 08/03/24 07/31/24 History ascorbic acid (vitamin C) 500 mg 500 mg PO DAILY 08/01/24 08/03/24 07/31/24 History chewable tablet (Acerola C) biotin 5 mg capsule 5 mg PO DAILY 08/01/24 08/03/24 07/31/24 History carbamazepine 200 mg tablet 200 mg PO Q12H 08/01/24 08/03/24 07/31/24 History duloxetine 30 mg capsule,delayed 30 mg PO BID 08/01/24 08/03/24 07/31/24 History release (Cymbalta) magnesium 250 mg tablet 500 mg PO DAILY 08/01/24 08/03/24 07/31/24 History tadalafil 20 mg tablet 5 mg PO DAILY 08/01/24 08/03/24 07/31/24 History trazodone 50 mg tablet 50 mg PO HS 08/03/24 08/03/24 Unknown History Allergies Allergy/AdvReac Type Severity Reaction Status Date / Time amoxicillin Allergy Intermediate rash Verified 09/08/24 22:54 Penicillins Allergy Intermediate Pruritic Verified 09/08/24 22:54 rash Review of Systems Review of Systems: All systems are reviewed and are negative unless stated otherwise in the HPI. FOR[facility]LY [facility], [facility] Past Medical History Medical History Peptic ulcer Gastroesophageal reflux disease Tobacco dependence Necrotizing pancreatitis Elevated PSA Memory loss Gastritis and duodenitis Essential hypertension Alcoholism Fracture of vertebra due to osteoporosis with routine healing Generalized osteoarthritis of multiple sites Inflammatory arthritis (08/2019) Angioedema (08/2019) Acute pulmonary embolism (08/2019) Pancreatitis Hypercholesteremia Surgical History Surgical History History of appendectomy Family History Family History Mother Hypertension Sibling Patient's brother is in good health Father Family history of pancreatic cancer Social History Social History Social History: Surrogate medical decision maker: Doris Norman, ex-. Code status: Full code. Smoking packs per day: 1 Smoking cigarettes per day: 20.0 Years smoked: 35 Smoking pack-years: 35.00 Smoking status: Current every day smoker Tobacco type: cigarettes Second hand tobacco smoke exposure: No Alcohol intake: current Drinks per week: 100 Alcohol use details: SHOT Substance use: current Substance use type: marijuana Other substance usage details: MEDICAL CARD-DAILY FOR BACK PAIN Last use: Monday Do You Feel Safe in your Home?: Yes Lack of Transportation: No Lack of Food: Never True Current Housing: I Do Not Have Housing Concerned About Future Housing: YES Difficulty Paying Gas/Electric Bills: No Difficulty Paying for Meds: No Currently Unemployed: No Education: High School Diploma/GED Difficulty w/ Childcare or Family Care: No Living arrangements: with family Occupation/Education: retired Spiritual care concerns: No Exam Narrative: General: Alert, awake, afebrile, in no acute distress. HEENT: PERRL, no rhinorrhea, no post nasal drip, oropharynx clear. Neck: Trachea midline, no JVD, no lymphadenopathy. Cardiovascular: Regular rate and rhythm, no murmurs, rubs or gallops, no peripheral edema. Respiratory: Clear to auscultation bilaterally, no tachypnea, no wheezing, no rhonchi, no rubs, no respiratory distress. Abdomen: Soft, nontender, nondistended, no rebound, no guarding, no peritoneal signs. Musculoskeletal: No joint swelling or deformity, normal muscle tone. Skin: No rashes or petechia, no signs of infection. Psychiatric: Alert and oriented, normal behavior and judgment for situation. Neurological: Alert and oriented to person, place, and time. Follows all commands. No focal deficits, speech is clear and fluent. Course Vital Signs Vital signs: Vital Signs Temperature 98.7 F 11/03/24 21:58 Pulse Rate 102 H 11/03/24 21:58 Respiratory Rate 20 11/03/24 21:58 Blood Pressure 134/89 11/03/24 21:58 Pulse Oximetry 100 11/03/24 21:58 Oxygen Delivery Room Air 11/03/24 21:58 Temperature 98.7 F 11/03/24 21:58 Pulse Rate 99 11/04/24 03:01 Respiratory Rate 18 11/04/24 03:01 Blood Pressure 130/87 11/04/24 03:01 Pulse Oximetry 95 11/04/24 03:01 Oxygen Delivery Room Air 11/03/24 21:58 MDM - Abdominal Pain MDM Narrative Medical decision making narrative: The patient was evaluated by myself in the emergency department. History is obtained from patient who is an independent historian and physical exam was performed. External medical records were reviewed at this time. IV was established and pertinent tests were ordered. Patient was administered 1 L IV fluid bolus with normal saline, 2 mg IV morphine for pain and 4 mg IV Zofran for nausea. EKG was obtained which revealed sinus rhythm rate of 92 beats per minute, no evidence of acute ischemia. EKG was independently interpreted by me and is currently pending official cardiology read. Laboratory results obtained revealing mild transaminitis with an AST of 74 an ALT of 51 otherwise no acute process. Lipase normal. Urinalysis unremarkable. Imaging studies obtained included CT abdomen pelvis with IV contrast which was independently interpreted by me revealing [finding], which is pending final radiology interpretation. Differential diagnosis considerations include acute pancreatitis, gastroenteritis, optic ulcer disease, biliary colic. Comorbidities impacting this visit include history of chronic pancreatitis and alcohol abuse. I have evaluated and discussed social determinants of health with the patient that could potentially impact subsequent diagnosis and treatment plans. On repeat assessment of the patient, reevaluation revealed that the patient is doing well and is in no acute distress. Patient symptoms have improved since he arrived to our emergency department. Repeat vital signs were all reviewed and noted to be stable. Differential diagnosis and treatment plan were discussed with the patient at bedside. Patient agrees with discussion and after shared medical decision making agrees with discharge. All questions were answered to the patient's satisfaction. Patient will follow up with his PCP in 3-5 days. He was placed on a Librium taper as he states that he wants to quit drinking and does not want to go into withdrawal. Patient was provided with strict return precautions and instructed to return to the emergency department if any new or worsening symptoms develop. The patient was discharged in stable condition. Lab Data 11/03/24 22:18 11/03/24 22:18 Labs: Lab Results 11/03/24 Range/Units 22:18 WBC 8.5 (4.5-10.0) K/mm3 RBC 4.78 (4.6-6.20) M/mm3 Hgb 13.9 L (14.0-18.0) g/dL Hct 41.4 L (42.0-52.0) % MCV 86.6 (80-100) fl MCH 29.1 (26-34) pg MCHC 33.6 (32-36) g/dl RDW 14.4 (11.5-14.5) % Plt Count 215 (150-375) k/mm3 MPV 8.6 (7.4-10.4) fl Immature Gran % (Auto) 0.4 (0-0.5) % Neut % (Auto) 69.4 (45.5-73.1) % Lymph % (Auto) 22.4 (18.3-44.2) % Porter % (Auto) 6.9 (2.6-8.5) % Eos % (Auto) 0.1 (0-4.4) % Baso % (Auto) 0.8 (0.2-1.2) % Lymph # (Auto) 1.89 (0.9-3.2) K/mm3 Porter # (Auto) 0.6 (0.1-0.6) K/mm3 Eos # (Auto) 0.0 (0-0.3) K/mm3 Baso # (Auto) 0.1 (0.0-0.1) K/mm3 Abs Immat Gran (auto) 0.03 (0.00-0.031) K/mm3 Absolute Neuts (auto) 5.9 (1.3-6.7) K/mm3 Absolute Nucleated RBC 0.000 (0.0-0.012) K/mm3 Nucleated RBC % 0.0 (0.0-0.2) % PT 13.2 (11.1-14.7) Seconds INR 1.0 APTT 27.3 (22.3-36.8) Seconds Sodium 139 (137-145) mmol/L Potassium 3.8 (3.4-5.0) mmol/L Chloride 103 (98-107) mmol/L Carbon Dioxide 17 L (22-30) mmol/L Anion Gap 19 H (4-12) mmol/L BUN 18 (9-20) mg/dL Creatinine 0.91 (0.7-1.3) mg/dL Estim Creat Clear Calc 86 ml/min Estimated GFR > 60 (59 - ) Glucose 92 (65-110) mg/dL Calcium 9.2 (8.4-10.2) mg/dL Total Bilirubin 0.5 (0.2-1.3) mg/dL AST 74 H (17-59) U/L ALT 51 H (6-50) U/L Alkaline Phosphatase 87 (38-126) U/L Troponin I < 0.012 (0.000-0.034) ng/mL Total Protein 8.5 H (6.3-8.2) g/dL Albumin 5.2 H (3.5-5.1) g/dL Lipase 33 (23-300) U/L Urine Color Yellow (Yellow) Urine Appearance Clear (Clear) Urine pH 6.0 (5.0-9.0) Ur Specific [place] 1.006 (1.001-1.035) Urine Protein Negative (Negative) mg/dL Urine Glucose (UA) Negative (Negative) mg/dL Urine Ketones Negative (Negative) mg/dL Ur Blood (Man) Negative (Negative) Urine Nitrate Negative (Negative) Urine Bilirubin Negative (Negative) Urine Urobilinogen 0.2 (<2.0) mg/dL Leukocyte Esterase Rfl Negative (Negative) KRISTOFER/UL Ethyl Alcohol 267 (<10) mg/dL Discharge Plan Discharge Clinical Impression: Alcohol intoxication, Nausea & vomiting, Abdominal pain Patient Disposition: Home Condition: Improved Instructions: Antibiotic Form, Abuse of Alcohol (ED), Acute Nausea and Vomiting (ED), Abdominal Pain (ED) Additional Instructions: Please follow-up with your family doctor within the next 3-5 days. Your instructed to stop drinking alcohol and you were placed on a Librium taper to prevent you from going into alcohol withdrawal. Return to the ED if any new or worsening symptoms develop. Patient Language: Colombian Prescriptions: New chlordiazepoxide HCl 25 mg capsule 25 mg PO Q6H Qty: 15 0RF Rx Instructions: Take 50 mg every 6 hours on the 1st day, 25 mg every 6 hours on the 2nd day, 25 mg every 12 hours on the 3rd day and 25 mg once on the 4th day No Action fenofibrate 160 mg tablet 160 mg PO DAILY Qty: 90 1RF pantoprazole 40 mg tablet,delayed release (DR/EC) See Rx Instructions .ROUTE .COMPLEX Qty: 90 1RF Dose Instruction: TAKE 1 TABLET BY MOUTH EVERY MORNING Rx Instructions: TAKE 1 TABLET BY MOUTH EVERY MORNING meloxicam 7.5 mg tablet 7.5 mg PO BID PRN (Reason: joint pain) Qty: 60 5RF potassium gluconate 595 mg (99 mg) tablet 99 mg PO DAILY losartan 25 mg tablet 25 mg PO DAILY carbamazepine 200 mg tablet 200 mg PO Q12H Patient Comments: for 5 days starting 07/30/24 biotin 5 mg capsule 5 mg PO DAILY magnesium 250 mg tablet 500 mg PO DAILY ascorbic acid (vitamin C) [Acerola C] 500 mg tablet,chewable 500 mg PO DAILY tadalafil 20 mg tablet 5 mg PO DAILY duloxetine [Cymbalta] 30 mg capsule,delayed release(DR/EC) 30 mg PO BID Patient Comments: 2 capsules in AM, 1 at HS trazodone 50 mg tablet 50 mg PO HS ondansetron 4 mg tablet,disintegrating 4 mg PO Q8H PRN (Reason: nausea and vomiting) Qty: 10 0RF rv-iizd-yevfw-lycopene-ginkgo 400-600-120 mcg-mcg-mg Tablet 1 tablet PO DAILY gabapentin 300 mg capsule 300 mg PO Q8H Qty: 270 1RF amlodipine 10 mg tablet 10 mg PO DAILY Qty: 90 1RF folic acid 1 mg tablet See Rx Instructions .ROUTE .COMPLEX Qty: 90 1RF Dose Instruction: TAKE 1 TABLET BY MOUTH DAILY Rx Instructions: TAKE 1 TABLET BY MOUTH DAILY Creon 12,000-38,000 -60,000 unit capsule,delayed release(DR/EC) See Rx Instructions .ROUTE .COMPLEX Qty: 100 5RF Dose Instruction: TAKE 1 CAPSULE BY MOUTH THREE TIMES DAILY WITH MEALS AND/OR SNACKS Rx Instructions: TAKE 1 CAPSULE BY MOUTH THREE TIMES DAILY WITH MEALS AND/OR SNACKS tizanidine 4 mg tablet See Rx Instructions .ROUTE .COMPLEX Qty: 60 0RF Dose Instruction: TAKE 1 TO 2 TABLETS BY MOUTH EVERY NIGHT AT BEDTIME NEEDED FOR MUSCLE SPASMS Rx Instructions: TAKE 1 TO 2 TABLETS BY MOUTH EVERY NIGHT AT BEDTIME NEEDED FOR MUSCLE SPASMS Follow-up/Referrals: Ronnell Escobar APRN [Primary Care Provider] - 3 Days Time of Disposition: 03:41
[2024-11-04] MEDS: SODIUM CHLORIDE 0.9% IV 1,000 ML 999 ML IV CONT (00:56)
--- NOTE | 2024-11-04 01:00 | PC.NURSE ---
Patient taken to CT at this time.
[2024-11-04 01:12] LABS: Ethanol 267 mg/dL (<10)
--- NOTE | 2024-11-04 01:15 | PC.NURSE ---
Patient c/o pain, ERP notified. Verbal orders received.
[2024-11-04] MEDS: ONDANSETRON INJ 4 MG/2 ML VIAL IV PUSH (01:20)
[2024-11-04] MEDS: MORPHINE SULFATE (*CRX) 2 MG/ML INJ IV PUSH (01:20)
[2024-11-04] MEDS: LORazepam INJ (*CRX) 2 MG/ML VIAL IV PUSH (03:34)
--- NOTE | 2024-11-04 03:39 | PC.NURSE ---
Patient requests ERP to look at my private area, I had sex and now it feels weird. ERP notified.
== END 2024-11-04 03:54 | disposition home or self-care (01) ==
PROVIDERS: Emergency Provider Emergency Medicine; PCP Nurse Practitioner
DX: F10.129 Alcohol abuse with intoxication, unspecified (principal); Y90.8 Blood alcohol level of 240 mg/100 ml or more; R11.2 Nausea with vomiting, unspecified; R10.13 Epigastric pain; F17.210 Nicotine dependence, cigarettes, uncomplicated; K21.9 Gastro-esophageal reflux disease without esophagitis; I10 Essential (primary) hypertension; M19.90 Unspecified osteoarthritis, unspecified site; Z86.711 Personal history of pulmonary embolism; E78.5 Hyperlipidemia, unspecified
CPT/HCPCS: 36415; 71045; 74177; 80053; 81003; 82077; 83690; 84484; 85025; 85610; 85730; 93005; 96361; 96374; 96375; 99284; J2060; J2270; J2405; J7030; Q9967

== ENCOUNTER 2025-01-06 17:23 | Emergency (ER) | payer MEDICARE, SELFPAY ==
[2025-01-06] VITALS (14 sets, daily range): BP systolic 110–127; BP diastolic 85–88; PULSE 71–116; RESP 12–18; TEMP 37.1; O2SAT 95–98
--- NOTE | ~2025-01-06 | XR_ITS ---
HISTORY: Abrasion status post fall COMPARISON: None TECHNIQUE: 2 limited views of the left elbow were performed FINDINGS: No acute displaced fracture is identified. No elevation of the anterior or posterior fat pads are identified to suggest a supracondylar fracture . Periarticular osteopenia suggesting osteoarthritis. IMPRESSION: Degenerative change without acute fracture Reviewed, dictated and finalized at location A.
--- NOTE | ~2025-01-06 | XR_ITS ---
HISTORY: Pain status post fall COMPARISON: None TECHNIQUE: 2 views of the bilateral hips were performed along with an AP view of the pelvis FINDINGS: No acute fracture or dislocation is identified. Superior lateral sclerosis of the bilateral femoral acetabular joint spaces is present consistent wit h osteoarthritis, left greater than right. Joint space narrowing detected within the pubic symphysis with sclerosis. Degenerative disease within the visualized portion of the lower lumbar spine. Age-appropriate bony mineralization. Findings consistent with prior bilateral hernia repair. IMPRESSION: Degenerative disease (left greater than right) without acute fracture or dislocation Reviewed, dictated and finalized at location A. IMPRESSION: Degenerative disease (left greater than right) without acute fracture or disloc ation
--- NOTE | ~2025-01-06 | CT_ITS ---
History: Head injury. Intoxication. PROCEDURE: CT head without contrast. COMPARISON: None TECHNIQUE: Axial imaging of the head performed from the skull base to the vertex without IV contrast. Sagittal a nd coronal reformations obtained. DLP: 681 mGy-cm FINDINGS: The ventricles are normal in size, shape and position. There is no mass, mass effect or midline shift. There is no abnormal extra-axial fluid collection or intracranial hemorrhage. Visualized paranasal sinuses are clear. The mastoid air cells are well aerated. No acute displaced fractures within the overlying cranium. Impression: No acute intracranial hemorrhage or suspicious mass effect. Reviewed, dictated and finalized at location A. Impression: No acute intracranial hemorrhage or suspicious mass effect.
--- NOTE | ~2025-01-06 | XR_ITS ---
HISTORY: pain s/p fall COMPARISON: None. Reference is made to a CT examination of the abdomen and pelvis dated 11/04/2024. TECHNIQUE: 3 view lumbar spine. FINDINGS: Lumbar vertebral bodies are normally aligned. There are 5 non-rib bearing lumbar vertebral bodies. Degenerative disease is redemonstrated with osteophyte formation, disc space narrowing, endplate carlin ges and facet arthropathy. This is most prominent at the levels of T12/L1 and L1/L2. Remaining disc spaces and vertebral body heights are otherwise well maintained. There are no lytic or sclerotic lesions. Paraspinal soft tissues are unremarkable IMPRESSION: Degenerative disease, without acute fracture. Reviewed, dictated and finalized at location A.
--- NOTE | ~2025-01-06 | CT_ITS ---
History: Head injury, intoxication PROCEDURE: CT cervical spine without intravenous contrast. COMPARISON: None. Reference is made to a MRI examination of the cervical spine performed most recentl y on 09/13/2022. TECHNIQUE: Multiple contiguous axial images of the cervical spine were performed without the administration of i ntravenous contrast. DLP: 410 mGy-cm FINDINGS: Straightening and slight reversal of the normal curvature of the cervical spine is identified, unchan ged from 2022 MRI examination. Significant degenerative disease is noted, with osteophyte formation, disc space narrowing, endplate changes and ankylosis. Significant facet arthropathy is also noted along with subchondral cyst formation. No acute fractures are present. The bilateral lung apices are unremarkable. No soft tissue abnormality is appreciated. The airway is patent. Impression: Severe degenerative disease, without acute fracture. Reviewed, dictated and finalized at location A. Impression: Severe degenerative disease, without acute fracture.
--- NOTE | ~2025-01-06 | CT_ITS ---
EXAMINATION: CT chest abdomen pelvis w con DATE: 01/07/2025 5:20 CDT INDICATION: Recent trauma with unexpected hypotension TECHNIQUE: Computed tomography (CT) of the chest, abdomen, and pelvis was performed with 100 cc Omnip aque 350 intravenous contrast. The dose-length product was 865.36 mGy-cm. Automated exposure control and iterative reconstruction technique were employed. COMPARISON: CT dated 11/04/2024 FINDINGS: CHEST CT: No significant pleural or pericardial effusion. No evidence for aortic aneurysm or dissection. Heart size normal. No thoracic lymphadenopathy. There is dependent consolidation in the lingula and lower l obes. No endobronchial lesions. No suspicious pulmonary nodules or masses. Mild wedge deformities of T11 and T12 appear chronic. Mild thoracic and lumbar spondylosis. ABDOMEN/PELVIS CT: Mildly distended gallbladder. No biliary dilatation. The liver, spleen, adrenal glands and kidneys ar e unremarkable. There calcifications of the pancreatic head, consistent with chronic pancreatitis. Mi ld prominence of the pancreatic duct. Nonobstructive bowel gas pattern. No significant vascular abnor mality. There are changes of bilateral inguinal hernia repair. No abnormal pelvic masses or fluid col lections. No free air or free fluid. IMPRESSION: 1. Dependent airspace disease of the lingula and lower lobes which may represent atelectasis or pneum onia. Clinically correlate. 2: Mildly distended gallbladder, nonspecific. If there is concern for cholecystitis, consider correla tion with ultrasound. 3: Chronic pancreatitis. Reviewed, dictated and finalized at location A. IMPRESSION: 1. Dependent airspace disease of the lingula and lower lobes which may represen t atelectasis or pneumonia. Clinically correlate. 2: Mildly distended gallbladder, nonspecific. If there is concern for cholecyst itis, consider correlation with ultrasound. 3: Chronic pancreatitis.
[2025-01-06] MEDS: SODIUM CHLORIDE 0.9% IV 1,000 ML 999 ML IV CONT ×3 (17:42→23:23)
[2025-01-06] MEDS: ONDANSETRON INJ 4 MG/2 ML VIAL IV PUSH (17:44)
--- NOTE | 2025-01-06 17:50 | ED_ITS ---
HPI - General Adult General Chief complaint: Alcohol <Mert Reynoso MD - Last Filed: 01/06/25 19:01> Stated complaint: etoh <Mert Reynoso MD - Last Filed: 01/06/25 19:01> Time Seen by Provider: 01/06/25 17:33 <Mert Reynoso MD - Last Filed: 01/06/25 19:01> History of Present Illness HPI narrative: Patient 59-year-old gentleman who presents emergency department chief complaint of alcohol intoxication. Patient has history of homelessness and reports that he fell and bruised his forehead abraded his right elbow patient states that he is unsure of how long he laid outside today reports that he has been nauseated <Mert Reynoso MD - Last Filed: 01/06/25 19:01> Related Data Home medications: Home Medications ?Medication ?Instructions ?Recorded ?Confirmed ?Last Taken ?Type wtbialvd-ixge-zqyyj acid 400 1 tablet PO DAILY 02/03/21 08/03/24 07/31/24 History mcg-lycopene 600 mcg-ginkgo 120 mg tablet potassium gluconate 595 mg (99 mg) 99 mg PO DAILY 04/25/23 08/03/24 07/31/24 History tablet ascorbic acid (vitamin C) 500 mg 500 mg PO DAILY 08/01/24 08/03/24 07/31/24 History chewable tablet (Acerola C) biotin 5 mg capsule 5 mg PO DAILY 08/01/24 08/03/24 07/31/24 History carbamazepine 200 mg tablet 200 mg PO Q12H 08/01/24 08/03/24 07/31/24 History magnesium 250 mg tablet 500 mg PO DAILY 08/01/24 08/03/24 07/31/24 History <Mert Reynoso MD - Last Filed: 01/06/25 19:01> Allergies/adverse reactions: Allergies Allergy/AdvReac Type Severity Reaction Status Date / Time amoxicillin Allergy Intermediate rash Verified 09/08/24 22:54 Penicillins Allergy Intermediate Pruritic Verified 09/08/24 22:54 rash <Mert Reynoso MD - Last Filed: 01/06/25 19:01> Review of Systems 2 Review of Systems: A 10 system review of systems was completed on the patient and is negative except for what is stated in the HPI. Nursing and ancillary documentation was reviewed. <Mert Reynoso MD - Last Filed: 01/06/25 19:01> [facility]LY [facility] Past Medical History Medical History: Medical History Peptic ulcer Gastroesophageal reflux disease Tobacco dependence Necrotizing pancreatitis Elevated PSA Memory loss Gastritis and duodenitis Essential hypertension Alcoholism Fracture of vertebra due to osteoporosis with routine healing Generalized osteoarthritis of multiple sites Inflammatory arthritis (08/2019) Angioedema (08/2019) Acute pulmonary embolism (08/2019) Pancreatitis Hypercholesteremia <Mert Reynoso MD - Last Filed: 01/06/25 19:01> Surgical History Surgical History: Surgical History History of appendectomy <Mert Reynoso MD - Last Filed: 01/06/25 19:01> Family History Family History: Family History Mother Hypertension Sibling Patient's brother is in good health Father Family history of pancreatic cancer <Mert Reynoso MD - Last Filed: 01/06/25 19:01> Social History Social History: Social History Social History: Surrogate medical decision maker: Doris Norman, ex-. Code status: Full code. Smoking packs per day: 1 Smoking cigarettes per day: 20.0 Years smoked: 35 Smoking pack-years: 35.00 Smoking status: Current every day smoker Tobacco type: cigarettes Second hand tobacco smoke exposure: No Alcohol intake: current Drinks per week: 100 Alcohol use details: SHOT Substance use: current Substance use type: marijuana Other substance usage details: MEDICAL CARD-DAILY FOR BACK PAIN Last use: Monday Do You Feel Safe in your Home?: Yes Lack of Transportation: No Lack of Food: Never True Current Housing: I Do Not Have Housing Concerned About Future Housing: YES Difficulty Paying Gas/Electric Bills: No Difficulty Paying for Meds: No Currently Unemployed: No Education: High School Diploma/GED Difficulty w/ Childcare or Family Care: No Living arrangements: with family Occupation/Education: retired Spiritual care concerns: No <Mert Reynoso MD - Last Filed: 01/06/25 19:01> Exam 2 Narrative: GENERAL: Well-appearing, well-nourished, and in no acute distress. HEAD: Normocephalic, small bruise present on the right forehead. EYES: PERRLA and EOMI. ENT: Nares clear, no rhinorrhea or epistaxis. Mucous membranes moist. NECK: Supple. CHEST: Clear to auscultation. No respiratory distress. HEART: Regular rate and rhythm. No murmur heard. Normal peripheral pulses. ABDOMEN: Soft, nontender, nondistended, normal active bowel sounds. EXTREMITIES: Normal range of motion. No edema. Small abrasion to the right elbow SKIN: Warm, dry, no rash. NEURO: No focal deficits. Alert and oriented x3. Appears to be acutely intoxicated PSYCH: Normal mood and affect. <Mert Reynoso MD - Last Filed: 01/06/25 19:01> Course Course Emergency Course: Patient care signed out by previous provider pending metabolic sobriety and discharged home. Patient CT scans initially were unrevealing including negative CT head and CT of the cervical spine. X-rays of the back were unrevealing. Patient was noted to be dehydrated asking for water frequently. He was outside for some time in the heat, workup was unremarkable. He was given multiple rounds of fluid boluses with good effect and he is urinating without difficulty. He was observed for several hours but noted to have some soft blood pressure readings into the 70s. This was initially attributed to cough being malposition but had repeated values so we expanded his workup to include CT of the chest abdomen pelvis with contrast further potential occult traumatic injuries. His CT scans were unrevealing as well. CT of the chest CT abdomen pelvis all with contrast showed no acute traumatic fractures or injuries to the visceral organs. No pulmonary contusions or pneumothorax. No acute findings. Patient's blood pressure improved with fluids. He was ambulatory and awake. Walks with a steady gait, no longer intoxicated and expressing desire to go home. He is safe for discharge home at this time given his metabolic and clinical sobriety without any acute workup concerns. <Deandre Matamoros MD - Last Filed: 01/07/25 04:04> Vital Signs Vital signs: Vital Signs Temperature 37.1 C 01/06/25 17:24 Pulse Rate 115 H 01/06/25 17:24 Respiratory Rate 18 01/06/25 17:24 Blood Pressure 127/86 01/06/25 17:24 Pulse Oximetry 97 01/06/25 17:24 Oxygen Delivery Room Air 01/06/25 17:24 Temperature 37.1 C 01/06/25 17:24 Pulse Rate 73 01/07/25 03:15 Respiratory Rate 15 01/07/25 03:15 Blood Pressure 100/75 01/07/25 03:01 Pulse Oximetry 100 01/07/25 03:15 Oxygen Delivery Room Air 01/06/25 17:24 <Mert Reynoso MD - Last Filed: 01/06/25 19:01> Vital Signs Temperature 37.1 C 01/06/25 17:24 Pulse Rate 115 H 01/06/25 17:24 Respiratory Rate 18 01/06/25 17:24 Blood Pressure 127/86 01/06/25 17:24 Pulse Oximetry 97 01/06/25 17:24 Oxygen Delivery Room Air 01/06/25 17:24 Temperature 37.1 C 01/06/25 17:24 Pulse Rate 73 01/07/25 03:15 Respiratory Rate 15 01/07/25 03:15 Blood Pressure 100/75 01/07/25 03:01 Pulse Oximetry 100 01/07/25 03:15 Oxygen Delivery Room Air 01/06/25 17:24 <Deandre Matamoros MD - Last Filed: 01/07/25 04:04> Medical Decision Making MDM Narrative Medical decision making narrative: Differential diagnosis includes head injury, cervical spine fracture, upper extremity fracture, alcohol intoxication, dehydration, rhabdomyolysis CT head showed no acute abnormalities CT C-spine showed no evidence of fracture <Mert Reynoso MD - Last Filed: 01/06/25 19:01> Vital Signs Vital Signs: Vital Signs Temperature 37.1 C 01/06/25 17:24 Pulse Rate 115 H 01/06/25 17:24 Respiratory Rate 18 01/06/25 17:24 Blood Pressure 127/86 01/06/25 17:24 Pulse Oximetry 97 01/06/25 17:24 Oxygen Delivery Room Air 01/06/25 17:24 Temperature 37.1 C 01/06/25 17:24 Pulse Rate 73 01/07/25 03:15 Respiratory Rate 15 01/07/25 03:15 Blood Pressure 100/75 01/07/25 03:01 Pulse Oximetry 100 01/07/25 03:15 Oxygen Delivery Room Air 01/06/25 17:24 <Mert Reynoso MD - Last Filed: 01/06/25 19:01> Vital Signs Temperature 37.1 C 01/06/25 17:24 Pulse Rate 115 H 01/06/25 17:24 Respiratory Rate 18 01/06/25 17:24 Blood Pressure 127/86 01/06/25 17:24 Pulse Oximetry 97 01/06/25 17:24 Oxygen Delivery Room Air 01/06/25 17:24 Temperature 37.1 C 01/06/25 17:24 Pulse Rate 73 01/07/25 03:15 Respiratory Rate 15 01/07/25 03:15 Blood Pressure 100/75 01/07/25 03:01 Pulse Oximetry 100 01/07/25 03:15 Oxygen Delivery Room Air 01/06/25 17:24 <Deandre Matamoros MD - Last Filed: 01/07/25 04:04> Lab Data Result diagrams: 01/06/25 18:14 01/06/25 18:14 <Mert Reynoso MD - Last Filed: 01/06/25 19:01> Labs: Lab Results 01/06/25 01/06/25 01/07/25 Range/Units 18:14 18:18 02:36 WBC 11.6 H (4.5-10.0) K/mm3 RBC 4.18 L (4.6-6.20) M/mm3 Hgb 12.0 L (14.0-18.0) g/dL Hct 36.8 L (42.0-52.0) % MCV 88.0 (80-100) fl MCH 28.7 (26-34) pg MCHC 32.6 (32-36) g/dl RDW 15.5 H (11.5-14.5) % Plt Count 473 H D (150-375) k/mm3 MPV 8.8 (7.4-10.4) fl Immature Gran % (Auto) 0.7 H (0-0.5) % Neut % (Auto) 58.0 (45.5-73.1) % Lymph % (Auto) 24.7 (18.3-44.2) % Wharton % (Auto) 12.9 H (2.6-8.5) % Eos % (Auto) 2.9 (0-4.4) % Baso % (Auto) 0.8 (0.2-1.2) % Lymph # (Auto) 2.85 (0.9-3.2) K/mm3 Wharton # (Auto) 1.5 H (0.1-0.6) K/mm3 Eos # (Auto) 0.3 (0-0.3) K/mm3 Baso # (Auto) 0.1 (0.0-0.1) K/mm3 Abs Immat Gran (auto) 0.08 H (0.00-0.031) K/mm3 Absolute Neuts (auto) 6.7 (1.3-6.7) K/mm3 Absolute Nucleated RBC 0.000 (0.0-0.012) K/mm3 Nucleated RBC % 0.0 (0.0-0.2) % Sodium 143 (137-145) mmol/L Potassium 3.9 (3.4-5.0) mmol/L Chloride 107 (98-107) mmol/L Carbon Dioxide 22 (22-30) mmol/L Anion Gap 14 H (4-12) mmol/L BUN 16 (9-20) mg/dL Creatinine 1.07 (0.7-1.3) mg/dL Estim Creat Clear Calc 74 ml/min Estimated GFR > 60 (59 - ) Glucose 154 H (65-110) mg/dL Calcium 9.2 (8.4-10.2) mg/dL Magnesium 1.8 (1.6-2.3) mg/dL Total Bilirubin 0.2 (0.2-1.3) mg/dL AST 27 (17-59) U/L ALT 13 (6-50) U/L Alkaline Phosphatase 60 (38-126) U/L Total Creatine Kinase 324 H (55-170) U/L Total Protein 7.2 (6.3-8.2) g/dL Albumin 4.4 (3.5-5.1) g/dL Urine Color Yellow (Yellow) Urine Appearance Clear (Clear) Urine pH 6.5 (5.0-9.0) Ur Specific [place] > 1.045 H (1.001-1.035) Urine Protein Trace (Negative) mg/dL Urine Glucose (UA) Negative (Negative) mg/dL Urine Ketones Negative (Negative) mg/dL Ur Blood (Man) Negative (Negative) Urine Nitrate Negative (Negative) Urine Bilirubin Negative (Negative) Urine Urobilinogen 1.0 (<2.0) mg/dL Leukocyte Esterase Rfl Negative (Negative) KRISTOFER/UL Urine RBC 0-2 (0-2) /hpf Urine WBC 0-5 (0-3) /hpf Ur Squamous Epith Cells None seen (Few) /hpf Urine Bacteria None seen /hpf Urine Casts 0-2 Ethyl Alcohol 321 H* (<10) mg/dL <Mert Reynoso MD - Last Filed: 01/06/25 19:01> Lab Results 01/06/25 01/06/25 01/07/25 Range/Units 18:14 18:18 02:36 WBC 11.6 H (4.5-10.0) K/mm3 RBC 4.18 L (4.6-6.20) M/mm3 Hgb 12.0 L (14.0-18.0) g/dL Hct 36.8 L (42.0-52.0) % MCV 88.0 (80-100) fl MCH 28.7 (26-34) pg MCHC 32.6 (32-36) g/dl RDW 15.5 H (11.5-14.5) % Plt Count 473 H D (150-375) k/mm3 MPV 8.8 (7.4-10.4) fl Immature Gran % (Auto) 0.7 H (0-0.5) % Neut % (Auto) 58.0 (45.5-73.1) % Lymph % (Auto) 24.7 (18.3-44.2) % Wharton % (Auto) 12.9 H (2.6-8.5) % Eos % (Auto) 2.9 (0-4.4) % Baso % (Auto) 0.8 (0.2-1.2) % Lymph # (Auto) 2.85 (0.9-3.2) K/mm3 Wharton # (Auto) 1.5 H (0.1-0.6) K/mm3 Eos # (Auto) 0.3 (0-0.3) K/mm3 Baso # (Auto) 0.1 (0.0-0.1) K/mm3 Abs Immat Gran (auto) 0.08 H (0.00-0.031) K/mm3 Absolute Neuts (auto) 6.7 (1.3-6.7) K/mm3 Absolute Nucleated RBC 0.000 (0.0-0.012) K/mm3 Nucleated RBC % 0.0 (0.0-0.2) % Sodium 143 (137-145) mmol/L Potassium 3.9 (3.4-5.0) mmol/L Chloride 107 (98-107) mmol/L Carbon Dioxide 22 (22-30) mmol/L Anion Gap 14 H (4-12) mmol/L BUN 16 (9-20) mg/dL Creatinine 1.07 (0.7-1.3) mg/dL Estim Creat Clear Calc 74 ml/min Estimated GFR > 60 (59 - ) Glucose 154 H (65-110) mg/dL Calcium 9.2 (8.4-10.2) mg/dL Magnesium 1.8 (1.6-2.3) mg/dL Total Bilirubin 0.2 (0.2-1.3) mg/dL AST 27 (17-59) U/L ALT 13 (6-50) U/L Alkaline Phosphatase 60 (38-126) U/L Total Creatine Kinase 324 H (55-170) U/L Total Protein 7.2 (6.3-8.2) g/dL Albumin 4.4 (3.5-5.1) g/dL Urine Color Yellow (Yellow) Urine Appearance Clear (Clear) Urine pH 6.5 (5.0-9.0) Ur Specific [place] > 1.045 H (1.001-1.035) Urine Protein Trace (Negative) mg/dL Urine Glucose (UA) Negative (Negative) mg/dL Urine Ketones Negative (Negative) mg/dL Ur Blood (Man) Negative (Negative) Urine Nitrate Negative (Negative) Urine Bilirubin Negative (Negative) Urine Urobilinogen 1.0 (<2.0) mg/dL Leukocyte Esterase Rfl Negative (Negative) KRISTOFER/UL Urine RBC 0-2 (0-2) /hpf Urine WBC 0-5 (0-3) /hpf Ur Squamous Epith Cells None seen (Few) /hpf Urine Bacteria None seen /hpf Urine Casts 0-2 Ethyl Alcohol 321 H* (<10) mg/dL <Deandre Matamoros MD - Last Filed: 01/07/25 04:04> Discharge Plan Discharge Clinical Impression: Acute alcohol intoxication, Ground-level fall, Head injury, Abrasion of elbow, right <Mert Reynoso MD - Last Filed: 01/06/25 19:01> Patient Disposition: Still a Patient <Mert Reynoso MD - Last Filed: 01/06/25 19:01> Condition: Stable <Mert Reynoso MD - Last Filed: 01/06/25 19:01> Patient Language: [place] <Mert Reynoso MD - Last Filed: 01/06/25 19:01> Prescriptions: No Action potassium gluconate 595 mg (99 mg) tablet 99 mg PO DAILY carbamazepine 200 mg tablet 200 mg PO Q12H Patient Comments: for 5 days starting 07/30/24 biotin 5 mg capsule 5 mg PO DAILY magnesium 250 mg tablet 500 mg PO DAILY ascorbic acid (vitamin C) [Acerola C] 500 mg tablet,chewable 500 mg PO DAILY ui-osto-hbxia-lycopene-ginkgo 400-600-120 mcg-mcg-mg Tablet 1 tablet PO DAILY chlordiazepoxide HCl 25 mg capsule 25 mg PO Q6H Qty: 15 0RF Rx Instructions: Take 50 mg every 6 hours on the 1st day, 25 mg every 6 hours on the 2nd day, 25 mg every 12 hours on the 3rd day and 25 mg once on the 4th day pantoprazole 40 mg tablet,delayed release (DR/EC) See Rx Instructions .ROUTE .COMPLEX Qty: 90 1RF Dose Instruction: TAKE 1 TABLET BY MOUTH EVERY MORNING Rx Instructions: TAKE 1 TABLET BY MOUTH EVERY MORNING tizanidine 4 mg tablet See Rx Instructions .ROUTE .COMPLEX Qty: 60 0RF Dose Instruction: TAKE 1 TO 2 TABLETS BY MOUTH EVERY NIGHT AT BEDTIME NEEDED FOR MUSCLE SPASMS Rx Instructions: TAKE 1 TO 2 TABLETS BY MOUTH EVERY NIGHT AT BEDTIME NEEDED FOR MUSCLE SPASMS amlodipine 10 mg tablet 10 mg PO DAILY Qty: 90 1RF duloxetine [Cymbalta] 30 mg capsule,delayed release(DR/EC) 30 mg PO BID Qty: 180 1RF fenofibrate 160 mg tablet 160 mg PO DAILY Qty: 90 1RF folic acid 1 mg tablet See Rx Instructions .ROUTE .COMPLEX Qty: 90 1RF Dose Instruction: TAKE 1 TABLET BY MOUTH DAILY Rx Instructions: TAKE 1 TABLET BY MOUTH DAILY gabapentin 300 mg capsule 300 mg PO Q8H Qty: 270 1RF Creon 12,000-38,000 -60,000 unit capsule,delayed release(DR/EC) See Rx Instructions .ROUTE .COMPLEX Qty: 100 5RF Dose Instruction: TAKE 1 CAPSULE BY MOUTH THREE TIMES DAILY WITH MEALS AND/OR SNACKS Rx Instructions: TAKE 1 CAPSULE BY MOUTH THREE TIMES DAILY WITH MEALS AND/OR SNACKS losartan 25 mg tablet 25 mg PO DAILY Qty: 90 1RF meloxicam 7.5 mg tablet 7.5 mg PO BID PRN (Reason: joint pain) Qty: 60 5RF ondansetron 4 mg tablet,disintegrating 4 mg PO Q8H PRN (Reason: nausea and vomiting) Qty: 30 2RF tadalafil 20 mg tablet 5 mg PO DAILY Qty: 90 1RF trazodone 50 mg tablet 50 mg PO HS Qty: 90 1RF naltrexone 50 mg tablet 50 mg PO DAILY Qty: 30 2RF thiamine HCl (vitamin B1) 100 mg tablet 100 mg PO DAILY Qty: 90 1RF <Mert Reynoso MD - Last Filed: 01/06/25 19:01> Follow-up/Referrals: Ronnell Escobar, COUNSELOR AID [Primary Care Provider] - <Mert Reynoso MD - Last Filed: 01/06/25 19:01> Time of Disposition: 04:03 <Mert Reynoso MD - Last Filed: 01/06/25 19:01> 04:03 <Deandre Matamoros MD - Last Filed: 01/07/25 04:04>
--- OUTSIDE RECORDS SUMMARY | 2025-01-06 17:55 | XMS_ITS | Encounter Summary ---
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 difficile suspected 08/16/2024 08/16/202408/16 /2025 2:48 PM CDT Norovirus suspected 08/16/2024 08/16/2024 [...] documented as of this encounter Care Teams Tradeshow Worker Relationship Specialty Start Date End Date Unknown, Notinfile PCP - General 10/01/19 04/26/20 Lamberto Barker MD [address] [place] [address] PCP - General Internal Medicine 04/27/20 12/27/21 Don Walton PA [address] [place] [address] PCP - General Physician Manager Sourcing 12/28/21 08/15/24 oRnnell Escobar NP [address] [facility] [address] [place] [address] PCP - General Nurse Practitioner 08/16/24 Savanah Galvez, [place] [address] [facility] [address] [place] [address] SHOP Outpatient Field Crop I Farmworker 08/22/24 08/25/24 documented as of this encounter
--- OUTSIDE RECORDS SUMMARY | 2025-01-06 17:55 | XMS_ITS | Encounter Summary ---
Author Organization [facility] Address [address] [place] [address] Care Team Providers Care Product Steward Name Role Phone Lamberto Barker MD Primary Care Provider [phone] Ronnell Escobar NP Primary Care Provider [phone] Encounter Details Date Type Department Care Team (Late st Contact Info) Description 01/05/2021 Hospital Follow-up Call [facility] [place] [address] Heather Adames RN Social History Tobacco Use [...] any clubs o r organizations such as religion groups, unions, fraternal or athletic groups, or [...] move on to questions 3-9 2 12/25/2020 [facility] - [...] place to sleep or slept in a skilled nursing (including now)? No 12/25/2020 Sex and Gender [...] documented as of this encounter Care Teams Product Steward Relationship Specialty Start Date End Date Lamberto Barker MD [address] [place] [address] PCP - General INTERNAL MEDICINE 05/08/19 08/28/24 Ronnell Escobar NP [address] [facility] [address] [place] [address] PCP - General NURSE PRACTITIONER 08/29/24 documented as of this encounter
--- OUTSIDE RECORDS SUMMARY | 2025-01-06 17:55 | XMS_ITS | Encounter Summary ---
Author Organization [facility] Address [address] [place] [address] Care Team Providers Care Quality Rn Name Role Phone Lamberto Barker MD Primary Care Provider [phone] Ronnell Escobar NP Primary Care Provider [phone] Encounter Details Date Type Department Care Team (Late st Contact Info) Description 10/21/2022 mgMEDIA Message Enc [facility] [address] [address] [place], [facility] Provider Stress test Social History Tobacco [...] often do you attend chur ch or lutheran services? 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 Answer Date of Assessment Author Status No 06/20/2021 1:29 AM METAL BENCH PATTERNMAKER Activ e * Do you have serious [...] Assessment Author Status No 06/20/2021 1:29 AM eKri Whaley RN Active documented as of this [...] documented as of this encounter Care Teams Quality Rn Relationship Specialty Start Date End Date Lamberto Barker MD [address] [place] [address] PCP - General INTERNAL MEDICINE 05/08/19 08/28/24 Ronnell Escobar NP [address] [facility] [address] [place] [address] PCP - General NURSE PRACTITIONER 08/29/24 documented as of this encounter
--- OUTSIDE RECORDS SUMMARY | 2025-01-06 17:55 | XMS_ITS | Encounter Summary ---
Author Organization [facility] Address [address] [place] [address] Care Team Providers Care Home Health Nurse Licensed Practical Name Role Phone Lamberto Barker MD Primary Care Provider [phone] Ronnell Escobar NP Primary Care Provider [phone] Encounter Details Date Type Department Care Team (Late st Contact Info) Description 11/07/2022 Internet Broadcasting Message Enc [facility] [address] [address] [place], [facility] Provider Echocardiogram Social History Tobacco Use [...] How often do you attend chur or gnosticism services? 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 Answer Date of Assessment Author Status No 06/20/2021 1:29 AM ACCELERATOR TECHNICIAN Activ e * Do you have serious [...] documented as of this encounter Care Teams Home Health Nurse Licensed Practical Relationship Specialty Start Date End Date Lamberto Barker MD [address] [place] [address] PCP - General INTERNAL MEDICINE 05/08/19 08/28/24 Ronnell Escobar NP [address] [place] [address] PCP - General NURSE PRACTITIONER 08/29/24 documented as of this encounter
--- OUTSIDE RECORDS SUMMARY | 2025-01-06 17:55 | XMS_ITS | Encounter Summary ---
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 difficile suspected 08/16/2024 08/16/202408/16 /2025 2:48 [...] documented as of this encounter Care Teams Broomcorn Grader Relationship Specialty Start Date End Date Unknown, Notinfile PCP - General 10/01/19 04/26/20 Lamberto Barker MD [address] [place] [address] PCP - General Internal Medicine 04/27/20 12/27/21 Don Walton PA [address] [place] [address] PCP - General Physician Welder Fitter 12/28/21 08/15/24 Ronnell Escobar NP [address] [facility] [address] [place] [address] PCP - General Nurse Practitioner 08/16/24 Savanah Galvez, DALE [address] [facility] [address] [place] [address] SHOP Outpatient Welfare Director 08/22/24 08/25/24 documented as of this encounter
--- OUTSIDE RECORDS SUMMARY | 2025-01-06 17:55 | XMS_ITS | Encounter Summary ---
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 difficile suspected 08/16/2024 08/16/202408/16 2:48 PM [...] documented as of this encounter Care Teams Captain Waiter Relationship Specialty Start Date End Date Unknown, Notinfile PCP - General 10/01/19 04/26/20 Lamberto Barker MD [address] [place] [address] PCP - General Internal Medicine 04/27/20 12/27/21 Don Walton PA [address] [place] [address] PCP - General Physician Bus Girl 12/28/21 08/15/24 Ronnell Escobar NP [address] [place] [address] PCP - General Nurse Practitioner 08/16/24 Savanah Galvez, DALE [address] [facility] [address] [place] [address] [employer]OP Outpatient Paper Sealer 08/22/24 08/25/24 documented as of this encounter
--- OUTSIDE RECORDS SUMMARY | 2025-01-06 17:55 | XMS_ITS | Clinical Summary ---
Author Organization [facility] Address [address] [place] [address] Care Team Providers Care District Sales Coordinator Name Role Phone Ronnell Escobar NP Primary Care Provider [phone] Allergies Active Allergy Reactions Criticality Noted Date Comments Amoxicillin Unknown High 04/18/2020 Ciprofloxacin Hives Medium 06/02/2023 Patient stated he had reaction to oral cipro. 06/02/23 had redness and hives after IV dose. Penicillins Rash,Angioedema High 05/08/2019 Piperacillin Sod-Tazobactam So Angioedema High 09/17/2019 Medications DULoxetine 30 MG capsule Take 1 capsule (30 mg total) by mouth 2 (two) times daily. 04/09/20 Active folic acid 1 MG tablet Take 1 tablet (1 mg total) by mouth daily. Active tiZANidine 4 MG tablet Take 1 [...] (six) hours as needed for Pain. Active amLODIPine (NORVASC) 10 MG tablet Take 1 tablet (10 mg total) by mouth daily. 01/13/20 Active gabapentin (NEURONTIN) 300 MG capsule Take 1 capsule (300 mg total) by mouth 3 (three) times daily. 03/21/20 Active melatonin 10 MG tablet Take 1 [...] by mouth daily. 10/18/19 23 Active CREON 30638-64904 units CAPSULE ENTERIC COATED PARTICLES Take 1 [...] available 1 each 08/30/19 25 026 Active thiamine 100 MG Tab Take 1 tablet (100 mg total) by mouth daily. 30 tablet 09/11/19 25 Active ondansetron (ZOFRAN-ODT) 4 MG disintegrating tabletIndications: Alcohol dependence with unspecified alcohol-induced disorder (CMS/HCC HHS/HCC) Take 1 tablet (4 mg total) by mouth every 8 (eight) hours as needed for Nausea. 20 tablet 09/11/19 25 Active multi vitamin/minerals (THERA-M ENHANCED) tablet Take 1 tablet by mouth daily. 30 tablet 09/11/19 25 Active Active Problems Problem Noted Date Diagnosed Date Chest pain 06/04/2023 Overview (06/16/2023): Last Assessment & Plan: Likely from pancreatitis. Also tender to palpation initially so may be a musculoskeletal component from dry heaving. Trops negative. EKG no ischemic changes. He reports hx of ID in the past, unclear circumstances. He had an exercise stress test in spring at an outside facility that he says was normal. Cont ASA. Pancreatic pseudocyst ([facility]) 07/26/2021 Severe sepsis ([facility]) 07/08/2021 Overview (11/04/2022): Last Assessment [...] Alcohol dependence with unsp ecified alcohol-induced disorder ([facility]) 06/25/2021 Overview (11/04/2022): Last Assessment & Plan: [...] Date Diagnosed Date Resolved Date Acute pancreatitis ([facility]) 12/28/2020 06/01/2021 Hypokalemia 06/20/2020 12/25/2020 Acute pancreatitis ([facility]) 06/19/2020 12/25/2020 Necrotizing pancreatitis (HHS/HCC) 10/21/2019 12/25/2020 Other constipation 10/21/2019 Immunizations Immunization Administration Dates Next Due Flucelvax [...] any clubs o r organizations such as faith groups, unions, fraternal or athletic groups, or [...] [facility] - [...] slept in a prison (including now)? No 12/25/2020 Sex and Gender Information Value Date Recorded Sex Assigned at Male 12/25/2020 2:35 AM CDT Legal Sex Male 7:50 PM CDT Gender Identity Male 12/25/2020 2:35 AM CDT Sexual Orientation Straight 12/25/2020 2: 35 AM CDT Last Filed Vital Signs Vital Sign Reading Time Taken Comments Blood Pressure 111/78 09/10/2024 1:30 AM CDT Pulse 90 09/10/2024 1:30 AM CDT Temperature 36.4 C (97.5 F) 09/09/2024 10:24 PM CDT Respiratory Rate 24 09/10/2024 1:30 AM CDT Oxygen Saturation 97% 09/10/2024 1:30 AM CDT Inhaled Oxygen Concentration - - Weight 167.7 kg (369 lb 11.4 oz) 2024 10:24 PM CDT Height 182.9 cm (6') 09/09/2024 10:24 PM CDT Body Mass Index 50.14 09/09/2024 10:24 PM CDT Plan of Treatment Health Maintenance Due Date Last Done Comments Colorectal Cancer Screening Colonoscopy (10 Years) 1967 Annual Physical 10/16/1970 Hepatitis B Vaccines (1 of 3 - 19+ 3-dose series) 10/16/1986 Pneumococcal Vaccine: 50+ Years (1 of 2 - PCV) 10/16/1986 DTaP, Tdap and Td Vaccines ( 1 - Tdap) 07/02/1998 07/01/1998 Zoster Vaccines (1 of 2) 10/16/2017 COVID-19 Vaccine (2023-2 5 season) 2024 08/18/2020, 07/28/2020 PHQ-2 (Physician [place]) 05/29/2024 Colorectal Cancer Screening FIT/FOBT (1 Year) [...] Reduce alcohol intake 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 Procedure Name Priority Date/Time Associated Diagnosis Comments OCCULT BLOOD, FECES Routine 09/15/2019 4 :49 PM CDT from Last 3 Months or Most Recently Relevant to Health Maintenance Results * OCCULT BLOOD, FECES (09/15/2019 4:49 PM CDT) OCCULT BLOOD FECAL NEGATIVE 09/15/2019 5:56 PM CDT [facility] STOOL SPECIMEN / Unknown 09/15/2019 4:49 PM CDT us González Morataya PA-C BODY FLUIDS AND STOOLS ORDERAB LES Final Result [facility] [address] [place] [address], [place] [phone] from Last 3 Months or Most Recently [...] 11:31 PM 12/26/2020 7:51 PM Care Teams District Sales Coordinator Relationship Specialty Start Date End Date Ronnell Escobar NP [address] [facility] [address] PCP - General NURSE PRACTITIONER 08/29/24
--- OUTSIDE RECORDS SUMMARY | 2025-01-06 17:56 | XMS_ITS | Encounter Summary ---
Author Organization [facility] Address [address] [place] [address] Care Team Providers Care Curriculum Supervisor Name Role Phone Ronnell Escobar NP Primary Care Provider [phone] Encounter Details Date Type Department Care Team (Late st Contact Info) Description 01/06/2025 Documentation [facility] Case Management [address] [place] [address] Izabella Pérez Social History Tobacco Use Types Packs/Day Years Used Date Smoking Tobacco: Former Cigarettes Smokeless Tobacco: Never Alcohol Use Standard Drinks/Week Comments Yes 0 (1 standard drink = 0.6 oz pur e alcohol) [facility] Utilities Answer Date Recorded In the past 12 months has [employer] electric, gas, oil, or water company threatened to shut off services in your home? No 12/30/2024 Social Connection and Isolation Panel Answer Date Recorded In a typical week, how many times do you talk on the phone with family, friends, or neighbors? Twice a week 12/30/2024 How often do you get together with friends or re latives? Twice a week 12/30/2024 How often do you attend moravian or zoroastrianism serv ices? Never 12/30/2024 Do you belong to any clubs o r organizations such as moravian groups, unions, fraternal or athletic groups, or school groups? No 12/30/2024 How often do you attend meet ings of the clubs or organizations you belong to? Never 12/30/2024 Are you , , di vorced, , never , or living with a partner? 12/30/2024 AUDIT-C Answer Date Recorded Q1: How often do you have a drink containing alcohol? 4 or more times a week 11/29/2024 Q2: How many drinks containi ng alcohol do you have on a typical day when you are drinking? 10 or more Q3: How often do you have si x or more drinks on one occasion? Daily or almost daily 11/29/2024 Overall Financial Resource Strain (CARDIA) Answe r Date Recorded How hard is it for you to pa y for the very basics like food, housing, medical care, and heating? Very hard 12/30/2024 PHQ-2 Answer Date Recorded PHQ-2 Total Score 7 12/12/2024 [facility] - Occupational Stress Questionnaire Answer Date [...] have money to get more. Sometimes true 08/2024 PRAPARE - Transportation Answer Date Re corded In the past 12 months, has l ack of transportation kept you from medical appointments or from getting medications? No 08/2024 In the past 12 months, has l ack of transportation kept you from meetings, work, or from getting things needed for daily living? No 12/30/2024 Housing Stability Vital Sign Answer Dangelo e [...] in a long-term (including now)? No 09/21/2023 PHQ-9 Answer Date Recorded PHQ-9 Total Score 7 12/12/2024 Housing Stability Vital Sign Answer Dangelo e Recorded In the last 12 months, was t here a time when you were not able to pay the mortgage or rent on time? Yes 12/30/2024 In the past 12 months, how m any times have you moved where you were living? 1 12/30/2024 At any time in the past 12 m [facility], were you homeless or living in a long-term (including now)? Yes 12/30/2024 Personal Safety Answer Date Recorded Have you ever been in or are you currently in a harmful physical or emotional relationship or is someone making you feel afraid or unsafe? 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 Contact was MSUCallAttempt: Unsuccessful. [facility] did not contact pt as he was a recent admission 12/29/24 - 01/03/25. Izabella Pérez 12:25 PM 01/06/25 documented in this encounter Plan of Treatment Not on file documented as of this encounter Visit Diagnoses Not on filedocumented in this encounter Care Teams Curriculum Supervisor Relationship Specialty Start Date End Date Ronnell Escobar NP [address] [place] [address] PCP - General Nurse Practitioner 08/16/24 documented as of this encounter
--- OUTSIDE RECORDS SUMMARY | 2025-01-06 17:56 | XMS_ITS | Clinical Summary ---
Author Organization [facility] Address [address] [place] [address] Care Team Providers Care Dot Net Developer Name Role Phone Ronnell Escobar NP Primary Care Provider Allergies Active Allergy Reactions Criticality Noted Date Comments Ciprofloxacin Hives Medium 06/02/2023 Patient stated he has previously tolerated PO. 06/02/23 had redness and hives after IV dose. Penicillins Rash Medium 05/08/2019 Dzbilfxvsbof-Sjoxakjrnt-Nxb trs Angioedema High 09/17/2019 Patient has tolerated cefepime Medications DULoxetine DR (CYMBALTA) 30 mg capsule Take 2 capsules (60 mg total) by mouth every morning Takes 60 mg in the morning and 30 mg at night for total daily dose of 90 mg 020 Active melatonin 10 mg tablet Take 1 tablet (10 mg total) by mouth nightly as needed 1st line Active multivit bebqdvlm-rkmf-JL-c alcium (THERA-M) 9 mg iron-400 mcg tablet Take [...] needed for nausea or vomiting 20 tablet 024 Active pancrelipase (Creon) 12,000 units of lipase capsule Take 1 capsule (12,000 units of lipase total) by mouth 3 (three) times a day with meals 90 capsule 2 Active fenofibrate nanocrystallized (TRICOR) 145 mg tablet Take 1 tablet (145 mg total) by mouth daily 30 tablet 11 025 2025 Active gabapentin (NEURONTIN) 600 mg tablet Take 1 tablet (600 mg total) by mouth 3 (three) times a day 270 tablet 3 025 2025 Active loperamide (IMODIUM) 2 mg capsule Take 1 capsule (2 mg total) by mouth 3 (three) times a day as needed for diarrhea 30 capsule Active tiZANidine (ZANAFLEX) 4 mg tablet Take 1 tablet (4 mg total) by mouth nightly as needed for muscle spasms 30 tablet Active tadalafiL (CIALIS) 5 mg tablet Take 1 tablet (5 mg total) by mouth daily Active vitamin B-1 100 mg tablet Take 1 tablet (100 mg total) by mouth daily Active polyethylene glycol (MIRALAX) 17 gram packet Take 1 packet (17 g total) by mouth 2 (two) times a day as needed for constipation Active losartan (COZAAR) 25 mg tablet Take 1 tablet (25 mg total) by mouth daily Active amLODIPine (NORVASC) 10 mg tablet Take 1 tablet (10 mg total) by mouth daily Active traZODone (DESYREL) 50 mg tablet Take 1 tablet (50 mg total) by mouth nightly Active folic acid (FOLVITE) 1 mg tablet Take 1 tablet (1,000 mcg total) by mouth daily 30 tablet 1 025 2024 Active ascorbic acid 500 mg tablet,chewable Take 1 tablet/chew tab (500 mg total) by mouth daily Active hydrOXYzine (ATARAX) 50 mg tablet Take one-half to one tablet up to 4 times daily PRN anxiety Active naltrexone (DEPADE) 50 mg tablet Take 1 tablet (50 mg total) by mouth daily Active biotin 5 mg capsule Take 1 capsule (1 tablet total) by mouth daily Active potassium gluconate 500 mg (83 mg) tablet Activ e acetaminophen 500 mg capsule Take 2 capsules (1,000 mg total) by mouth every 6 (six) hours as needed for mild pain (pain scale 1-4) Active DULoxetine DR MCCALLTA) 30 mg capsule Take 1 capsule (30 mg total) by mouth nightly Takes 60 mg in the morning and 30 mg at night for total daily dose of 90 mg Active chlordiazePOXIDE (LIBRIUM) 25 mg capsule Take 1 capsule (25 mg total) by mouth 3 (three) times a day as needed for anxiety or withdrawal symptoms [address] (PROTONIX) 40 mg EC tablet Take 1 tablet (40 mg total) by mouth 2 (two) times a day 60 tablet Active traMADoL (ULTRAM) 50 mg tablet Take 1 tablet (50 mg total) by mouth every 8 (eight) hours as needed for pain [address] (PROTONIX) 40 mg EC tablet Take 1 tablet (40 mg total) by mouth daily 020 2024 Discontinued senna-docusate (PERICOLACE) 8.6-50 mg Take 2 tablets by mouth 2 (two) times a day as needed for constipation 60 tablet 022 2024 Discontinued(A lternate therapy) acetaminophen (TYLENOL) 325 mg tablet Take 2 tablets (650 mg total) by mouth every 4 (four) hours as needed for pain 024 2024 Discontinued(A lternate therapy) meloxicam (MOBIC) 7.5 mg tablet Take 1 tablet (7.5 mg total) by mouth 2 (two) times a day as needed for pain 025 2024 Discontinued(S top Taking at Discharge) ascorbic acid (ascorbic acid with ganesh hips) 500 mg tablet,chewable Take 1 tablet/chew tab (500 mg total) by mouth daily 2024 Discontinued(T herapy completed) HYDROcodone-acetam inophen (NORCO) 5-325 mg per tabletIndications: Pain Take 1 tablet by mouth every 6 (six) hours as needed for pain for up to 5 days 20 tablet 025 2024 Discontinued(T herapy completed) UNABLE TO FIND Med Name: [facility] Men Testosterone Booster 2024 Discontinued(E rror) HYDROcodone-acetam inophen (NORCO) 10-325 mg per tabletIndications: Pain Take 1 tablet by mouth every 6 (six) hours as needed for pain for up to 7 days 28 tablet 025 2024 Active Problems Problem Noted Date Diagnosed Date Dehydration 12/31/2024 Alcohol withdrawal syndrome without complication 09/13/2024 Moderate protein-calorie malnutrition 08/16/2024 Acute on chronic pancreatitis 08/15/2024 Thrombocytosis 09/30/2023 Acute pancreatitis without n ecrosis or infection, unspecified 09/20/2023 Constipation 06/10/2023 Assessment & Plan (06/12/2023 2:18 PM UNDERWEAR CUTTER): Patient reports feeling constipated, gassy and bloated. [...] 06/08/2023 Assessment & Plan (06/09/2023 1:55 PM UNDERWEAR CUTTER): Resolved. Acute pancreatitis, unspecif ied complication status, unspecified pancreatitis type 06/04/2023 Assessment & Plan (06/05/2023 12:45 PM UNDERWEAR CUTTER): Longstanding bouts of pancreatitis originally from EtOH [...] 06/04/2023 Assessment & Plan (06/05/2023 12:48 PM UNDERWEAR CUTTER): Likely from pancreatitis. Also tender to palpation initially so may be a musculoskeletal component from dry heaving. Trops negative. EKG no ischemic changes. He reports hx of NM in the past, unclear circumstances. He had an exercise stress test in spring at an outside facility that he says was normal. Cont ASA. Gram-negative bacteremia 04/11/2023 Assessment & Plan (04/13/2023 7:02 PM UNDERWEAR CUTTER): - due to cholangitis - BCx + for E coli and K. Pneumoniae - repeat BCx drawn 04/11, ngtd - pansensitive organisms - d/c home today with flagyl/cipro Cholangitis 04/10/2023 Assessment & Plan (04/12/2023 6:21 PM UNDERWEAR CUTTER): - Improving - 04/10 ERCP - removal of two migrates stents with biliary obstruction and replaced with 2 new stents in biliary stricture - PRN analgesics and antiemetics Assessment & Plan (04/10/2023 2:40 AM UNDERWEAR CUTTER): -meets [place] criteria for acute cholangitis based [...] MRCP------> GI consult ordered in [facility] -NPO x sips, ice chips -IVFs overnight -PRN analgesics and antiemetics -repeat CBC, BMP, HFP in AM 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 Encounter for removal of biliary stent 3 Acute recurrent pancreatitis 01/26/2022 Post-ERCP acute pancreatitis 01/04/2022 Assessment & Plan (06/13/2023 2:35 PM UNDERWEAR CUTTER): Recently admitted from 06/04-06/05/23 after ERCP on [...] (01/05/2022): Added automatically from request for surgery [id number] Assessment & Plan (04/11/2023 3:57 PM UNDERWEAR CUTTER): - improving -2/2 stent migration and resultant biliary obstruction Assessment & Plan (04/10/2023 2:27 AM UNDERWEAR CUTTER): -2/2 stent migration and resultant biliary obstruction -mgmt as above -repeat HFP in AM 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 Overview (11/30/2021): Added automatically from request for surgery [id number] Encounter for replacement of biliary stent 11/30 Overview (11/30/2021): Added automatically from request for surgery [id number] 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 Pancreatic pseudocyst 07/26/2021 Severe sepsis 07/08/2021 Assessment & Plan (07/13/2021 9:43 AM UNDERWEAR CUTTER): Pt elevated temp on 07/07 overnight 38.1 [...] infection Assessment & Plan (07/12/2021 9:40 AM UNDERWEAR CUTTER): Pt elevated temp on 2 overnight 38.1 [...] infection Assessment & Plan (07/11/2021 10:55 AM UNDERWEAR CUTTER): Pt elevated temp on 2 overnight 38.1 [...] bed Assessment & Plan (07/10/2021 9:10 AM UNDERWEAR CUTTER): Pt elevated temp on 07/07 overnight 38.1 [...] daily Assessment & Plan (07/09/2021 2:23 PM UNDERWEAR CUTTER): Pt elevated temp on 07/07 overnight 38.1 [...] daily Assessment & Plan (07/08/2021 1:53 PM UNDERWEAR CUTTER): Pt elevated temp overnight 38.1 max, hypotensive [...] 07/07/2021 Assessment & Plan (07/13/2021 9:43 AM UNDERWEAR CUTTER): Dobbhoff placed 07/08, tube feeding to initiated Osmolite 1.5 at 55mL/hr over 24h via [place] tube continuous via pump. Flush with 150mL water q4h. Now at goal of 55cc/hr. Can cycle at home as instructed. Will continue TF until follow up with GI as outpatient Assessment & Plan (07/12/2021 9:39 AM UNDERWEAR CUTTER): Dobbhoff placed 2/10, tube feeding to initiated Osmolite 1.5 at 55mL/hr over 24h via [place] tube continuous via pump. Flush with 150mL water q4h. Now at goal of 55cc/hr. Can cycle at home as instructed. Will continue TF until follow up with GI as outpatient Assessment & Plan (07/11/2021 10:55 AM UNDERWEAR CUTTER): Cherelle placed 07/08, tube feeding to initiated [...] Phos Assessment & Plan (07/10/2021 9:08 AM UNDERWEAR CUTTER): Cherelle placed 07/08, tube feeding to initiated [...] Phos Assessment & Plan (07/09/2021 2:25 PM UNDERWEAR CUTTER): Cherelle placed 07/08, tube feeding to initiated [...] prn Assessment & Plan (07/08/2021 1:11 PM UNDERWEAR CUTTER): Cherelle placed 07/08, tube feeding to initiate TF recommendations: Goal: Osmolite 1.5 at 55mL/hr over 24h via [place] tube continuous via pump. Flush with 150mL water q4h. Initiate TF at 10mL/hr and increase by 10mL q4h until goal rate is reached Chronic pancreatitis, unspecified pancreatitis t ype 07/06/2021 Assessment & Plan (07/13/2021 9:42 AM UNDERWEAR CUTTER): Ongoing acute episode of (developing) chronic pancreatitis. [...] home Assessment & Plan (07/12/2021 9:38 AM UNDERWEAR CUTTER): Ongoing acute episode of (developing) chronic pancreatitis. [...] 07/13 Assessment & Plan (07/11/2021 10:53 AM UNDERWEAR CUTTER): Ongoing acute episode of (developing) chronic pancreatitis. [...] discharge Assessment & Plan (07/10/2021 9:07 AM UNDERWEAR CUTTER): Ongoing acute episode of developing chronic pancreatitis. [...] enteral feedings. GI consult pt dobbhoff placed /10 for pancreatic rest. Continue conservative treatment (IVF, analgesic, antiemetics) RD c/s tube feeding plan initiated and now at goal feeding and tolerating well Goal to decrease narcotic pain med use Scheduled acetaminophen and Ketorolac CTM Likely home Monday with home tube feedings Assessment & Plan (07/09/2021 2:30 PM UNDERWEAR CUTTER): Ongoing acute episode of chronic pancreatitis. Just [...] CTM Assessment & Plan (07/08/2021 1:49 PM UNDERWEAR CUTTER): Ongoing acute episode of chronic pancreatitis. Just [...] plan Assessment & Plan (07/07/2021 11:22 AM UNDERWEAR CUTTER): Ongoing acute episode of chronic pancreatitis. Just [...] plan Assessment & Plan (07/06/2021 5:30 PM UNDERWEAR CUTTER): Ongoing acute episode of chronic pancreatitis. Just [...] 07/06/2021 Assessment & Plan (07/13/2021 9:42 AM UNDERWEAR CUTTER): Likely ATN related to hypotensive episode. Cr peaked at Cr at 2.31, now back to baseline after aggressive IVF and now tolerating TF. Assessment & Plan (07/12/2021 9:36 AM UNDERWEAR CUTTER): Likely ATN related to hypotensive episode. Cr peaked at Cr at 2.31, now back to baseline after aggressive IVF and now tolerating TF. Assessment & Plan (07/11/2021 10:54 AM UNDERWEAR CUTTER): Likely ATN related to hypotensive episode. Cr peaked at Cr at 2.31, now back to baseline after aggressive IVF, continue to monitor bmp, continue fluids Assessment & Plan (07/10/2021 9:08 AM UNDERWEAR CUTTER): Likely ATN related to hypotensive episode. Cr peaked at Cr at 2.31, now back to baseline after aggressive IVF, continue to monitor bmp, continue fluids Assessment & Plan (07/09/2021 2:29 PM UNDERWEAR CUTTER): Cr at baseline after aggressive IVF, continue to monitor bmp, continue fluids Assessment & Plan (07/08/2021 1:10 PM UNDERWEAR CUTTER): Cr baseline 0.8 now up to 1.3 on arrival due to po intolerance Aggressive IVF will monitor urine output Today net fluid intake 191 Cr trended up to 2.31 continue aggressive fluids Daily bmp Continue IVF Assessment & Plan (07/07/2021 11:19 AM UNDERWEAR CUTTER): Cr baseline 0.8 now up to 1.3 on arrival due to po intolerance Aggressive IVF will monitor urine output Today net fluid intake 191 Cr 1.05 improving with fluids Daily bmp Continue IVF Assessment & Plan (07/06/2021 5:39 PM UNDERWEAR CUTTER): Cr baseline 0.8 now up to 1.3 on arrival due to po intolerance Aggressive IVF will monitor urine output Alcohol dependence 06/25/2021 Assessment & Plan (06/07/2023 5:01 AM UNDERWEAR CUTTER): Last drink on and he reports being [...] program Assessment & Plan (07/13/2021 9:42 AM UNDERWEAR CUTTER): Has a long history of alcohol use [...] Group Assessment & Plan (07/12/2021 9:36 AM UNDERWEAR CUTTER): Has a long history of alcohol use [...] Group Assessment & Plan (07/11/2021 10:54 AM UNDERWEAR CUTTER): Has a long history of alcohol use [...] Group Assessment & Plan (07/10/2021 9:05 AM UNDERWEAR CUTTER): Has a long history of alcohol use [...] Group Assessment & Plan (07/09/2021 2:33 PM UNDERWEAR CUTTER): Has a long history of alcohol use [...] Group Assessment & Plan (07/08/2021 1:06 PM UNDERWEAR CUTTER): Has a long history of alcohol use with dependence. He states he has not had a drink since before his ERCP 06/22/2021 and has been on Vivitrol injections. His ethanol level on arrival to the ED is negative Plan to continue EtOH cessation and support with outpatient naltrexone therapy. Assessment & Plan (07/07/2021 11:13 AM UNDERWEAR CUTTER): Has a long history of alcohol use with dependence. He states he has not had a drink since before his ERCP 06/22/2021 and has been on Vivitrol injections. His ethanol level on arrival to the ED is negative Plan to continue EtOH cessation and support with outpatient naltrexone therapy. Assessment & Plan (07/06/2021 5:22 PM UNDERWEAR CUTTER): Has a long history of alcohol use with dependence. He states he has not had a drink since before his ERCP 06/22/2021 and has been on Vivitrol injections. His ethanol level on arrival to the ED is negative Plan to continue EtOH cessation and support with outpatient naltrexone therapy Assessment & Plan (06/28/2021 11:39 AM UNDERWEAR CUTTER): Long standing hx of alcohol dependence with [...] needed Assessment & Plan (06/27/2021 11:47 AM UNDERWEAR CUTTER): Long standing hx of alcohol dependence with [...] needed Assessment & Plan (06/26/2021 11:59 AM UNDERWEAR CUTTER): Long standing hx of alcohol dependence with hx of short term remission. Last drink was 06/17. States he usually drinks hard liquor shot. Denies hx of seizure or delirium. On vivitrol but did not receive this month's shot due to being on analgesic for post ERCP pain control. -thiamine -folate -MVI -ciwa protocol - Ativan Hypertension 06/25/2021 Assessment & Plan (06/07/2023 5:06 AM UNDERWEAR CUTTER): Markedly hypertensive on ED arrival in the setting of pain -Continue home Amlodipine 10 mg qday and losartan 25 mg qday Assessment & Plan (06/05/2023 12:47 PM UNDERWEAR CUTTER): Hypertensive initially from pain. Improved today. Cont home meds. Assessment & Plan (04/12/2023 6:21 PM UNDERWEAR CUTTER): -continue norvasc Assessment & Plan (04/10/2023 2:31 AM UNDERWEAR CUTTER): -resume norvasc in AM Assessment & Plan (01/11/2022 11:23 AM CDT): Continue norvasc Assessment & Plan (01/10/2022 11:40 AM CDT): Continue norvasc Assessment & Plan (07/13/2021 9:43 AM UNDERWEAR CUTTER): Continue to hold home lisinopril on account of recent hypotension/JOSE. With low normotensive BP will discontinue lisinopril. Follow up with PCP in 2-4 weeks to re evaluate restarting if needed Assessment & Plan (07/12/2021 9:38 AM UNDERWEAR CUTTER): Continue to hold home lisinopril on account of recent hypotension/JOES. BP normal, may not require lisinopril on discharge. Assessment & Plan (07/11/2021 10:54 AM UNDERWEAR CUTTER): Continue to hold home lisinopril on account of recent hypotension/JOSE. BP normal, may not require lisinopril on discharge. Assessment & Plan (07/10/2021 9:06 AM UNDERWEAR CUTTER): Continue to hold home lisinopril on account of recent hypotension Assessment & Plan (07/09/2021 2:32 PM UNDERWEAR CUTTER): Continue to hold home lisinopril until more stable BP Assessment & Plan (07/08/2021 1:06 PM UNDERWEAR CUTTER): BP hypotensive overnight hold antihypertensives at this time. Assessment & Plan (07/07/2021 11:15 AM UNDERWEAR CUTTER): BP on remain normotensive Continue lisinopril and pain control Assessment & Plan (07/06/2021 5:30 PM UNDERWEAR CUTTER): BP on arrival normotensive Continue lisinopril and pain control Assessment & Plan (06/28/2021 11:39 AM UNDERWEAR CUTTER): Continue home lisinopril 40 mg -Monitor BP -BP stable Assessment & Plan (06/27/2021 11:48 AM UNDERWEAR CUTTER): Continue home lisinopril 40 mg -Monitor BP/Cr -BP stable Assessment & Plan (06/25/2021 4:55 PM UNDERWEAR CUTTER): Continue home lisinopril 40 mg -Monitor BP/Cr -Daily BMP Tobacco abuse 06/25/2021 Major depressive disorder 06/25/2021 Assessment & Plan (06/07/2023 5:07 AM UNDERWEAR CUTTER): Continue home duloxetine 30 mg BID and trazodone 50 mg qhs Assessment & Plan (06/04/2023 11:58 AM UNDERWEAR CUTTER): Cont home meds Assessment & Plan (01/11/2022 11:23 AM CDT): Continue duloxetine scheduled and trazodone prn Assessment & Plan (01/10/2022 11:40 AM CDT): Continue duloxetine scheduled and trazodone prn Assessment & Plan (07/13/2021 9:43 AM UNDERWEAR CUTTER): Most certainly contributing to his long standing alcohol use. Continue home meds duloxetine and trazodone Assessment & Plan (07/12/2021 9:38 AM UNDERWEAR CUTTER): Most certainly contributing to his long standing alcohol use. Continue home meds duloxetine and trazodone Assessment & Plan (07/11/2021 10:54 AM UNDERWEAR CUTTER): Most certainly contributing to his long standing alcohol use. Continue home meds duloxetine and trazodone Assessment & Plan (07/10/2021 9:06 AM UNDERWEAR CUTTER): Most certainly contributing to his long standing alcohol use. Continue home meds duloxetine and trazodone Assessment & Plan (07/09/2021 2:30 PM UNDERWEAR CUTTER): Most certainly contributing to his long standing alcohol use now with cessation Continue home meds duloxetine and trazodone Assessment & Plan (07/08/2021 1:09 PM UNDERWEAR CUTTER): Most certainly contributing to his long standing alcohol use now with cessation Continue home meds duloxetine and trazodone Assessment & Plan (07/07/2021 11:16 AM UNDERWEAR CUTTER): Most certainly contributing to his long standing alcohol use now with cessation Continue home meds duloxetine and trazodone Assessment & Plan (07/06/2021 5:32 PM UNDERWEAR CUTTER): Most certainly contributing to his long standing alcohol use now with cessation Continue home meds duloxetine and trazodone Assessment & Plan (06/28/2021 11:39 AM UNDERWEAR CUTTER): Continue home Trazodone 50 mg, Cymbalta 30 mg Resume Biofeedback at discharge Assessment & Plan (06/27/2021 11:48 AM UNDERWEAR CUTTER): Continue home Trazodone 50 mg, Cymbalta 30 mg Resume Biofeedback at discharge Assessment & Plan (06/25/2021 4:57 PM UNDERWEAR CUTTER): Continue home Trazodone 50 mg, Cymbalta 30 mg Resume Biofeedback at discharge Pancreatic duct obstruction 06/11/2021 Overview (06/11/2021): Added automatically from request for surgery [id number] Abdominal pain 06/11/2021 Overview (06/11/2021): Added automatically from request for surgery [id number] Necrotizing pancreatitis 10/21/2019 Therapeutic opioid induced constipation 10/21/19 20 Assessment & Plan (07/13/2021 9:44 AM UNDERWEAR CUTTER): Continue bowel regimen Assessment & Plan (07/12/2021 9:41 AM UNDERWEAR CUTTER): Bowel regimen ordered without BM. Will titrate bowel regimen Assessment & Plan (07/11/2021 10:58 AM UNDERWEAR CUTTER): Bowel regimen ordered Assessment & Plan (06/28/2021 11:39 AM UNDERWEAR CUTTER): Pt states no BM for the past week. Likely due to decrease intake and vomiting, possible contribution from opioids -daily bowel regimen, had BM Monday Assessment & Plan (06/27/2021 11:48 AM UNDERWEAR CUTTER): Pt states no BM for the past week. Likely due to decrease intake and vomiting, possible contribution from opioids -daily bowel regimen Assessment & Plan (06/26/2021 12:00 PM UNDERWEAR CUTTER): Pt states no BM for the past week. Likely due to decrease intake and vomiting, possibly contribution from opioids -daily bowel regimen -clear liquid diet Acute pancreatitis 05/08/2019 Assessment & Plan (06/28/2021 11:38 AM UNDERWEAR CUTTER): Hx of chronic pancreatis starting 3 years [...] prioritized. Assessment & Plan (06/27/2021 11:46 AM UNDERWEAR CUTTER): Hx of chronic pancreatis starting 3 years [...] prioritized. Assessment & Plan (06/26/2021 11:59 AM UNDERWEAR CUTTER): Hx of chronic pancreatis starting 3 years [...] 04/11/2023 Assessment & Plan (04/10/2023 2:38 AM UNDERWEAR CUTTER): -migrated stent likely etiology of presenting symptoms and lab, CT findings -will likely need ERCP for stent exchange on Monday Metabolic acidosis, increased anion gap (IAG) 06/25/19 22 07/09/2021 Assessment & Plan (07/09/2021 2:31 PM UNDERWEAR CUTTER): Dobbhoff placed 07/08, to start tube feeding TF recommendations: Goal: Osmolite 1.5 at 55mL/hr over 24h via [place] tube continuous via pump. Flush with 150mL water q4h. Initiate TF at 10mL/hr and increase by 10mL q4h until goal rate is reached Assessment & Plan (07/08/2021 1:49 PM UNDERWEAR CUTTER): Due to starvation in the setting of [...] reached Assessment & Plan (07/07/2021 11:16 AM UNDERWEAR CUTTER): Due to starvation in the setting of intolerance to PO for the last 3-4 days. Will provide aggressive IVF Continue to discuss enteral feedings with the patient going forward, currently pt is refusing, GI will readdress with pt today with goal for placement today should pt agree. Change IVF to D5LR Assessment & Plan (07/06/2021 5:38 PM UNDERWEAR CUTTER): Due to starvation in the setting of intolerance to PO for the last 3-4 days. Will provide aggressive IVF Continue to discuss enteral feedings with the patient going forward Assessment & Plan (06/28/2021 11:39 AM UNDERWEAR CUTTER): Likely dehydration from pancreatitis, n/v and poor intake. Heme concentrated hgb 14.9 (baseline 8-9), wbc 14.4 no source of infection likely heme concentrated, anion gap 20, UA ketone +1. Resolved with IVF Assessment & Plan (06/27/2021 11:47 AM UNDERWEAR CUTTER): Likely dehydration from pancreatitis, n/v and poor intake. Heme concentrated hgb 14.9 (baseline 8-9), wbc 14.4 no source of infection likely heme concentrated, anion gap 20, UA ketone +1. Resolved with IVF Assessment & Plan (06/26/2021 12:00 PM UNDERWEAR CUTTER): Likely dehydration from pancreatitis, n/v and poor intake. Heme concentrated hgb 14.9 (baseline 8-9), wbc 14.4 no source of infection likely heme concentrated, anion gap 20, UA ketone +1 -IVF -Clear liquid diet -Daily bmp Encounters Date Type Department Care Team Description 01/06/[address] [facility] [address] [place] [id number] Izabella Pérez 12/29/2024 3:00 AM CDT - 01/03/2025 7:00 PM CDT Hospital Encounter [address] [id number] Kennedy Amaro MD Pham, Kevin, DO Uzodi, MD Arvind Reyes, Kaylynn Orozco MD Alcohol withdrawal syndrome without complication (HCC) (Primary Dx); Dehydration Discharge Disposition: Discharge to home or self care 12/13/[address] [facility] [address] [place] [id number] Izabella Pérez 12/10/2024 8:47 AM CDT - 12/18/2024 2:37 PM CDT Hospital Encounter [facility] [address] [address] Alexandra Tomlin, MD Jaffe, MD Pat Reyes, MD Nathanael Naqvi Mathew S., Terry Esposito DO Acute on chronic pancreatitis (HCC) (Primary Dx) Discharge Disposition: Discharge to home or self care 11/28/2024 6:46 PM CDT - 12/04/2024 12:41 PM CDT Hospital Encounter [address] [id number] Victor Manuel Izquierdo MD Sada, Kahmalia-Kalee Conceptia, MD Bezuneh, MD Frankie Frank, Tim Mcclain MD Acute pancreatitis, unspecified complication status, unspecified pancreatitis type (Primary Dx); Alcohol withdrawal syndrome with complication (HCC) Discharge Disposition: Discharge to home or self care 10/31/[address] 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 No 12/30/2024 Social Connection and Isolation Panel Answer Date Recorded In a typical week, how many times do you talk on the phone with family, friends, or neighbors? Twice a week 12/30/2024 How often do you get together with friends or re latives? Twice a week 12/30/2024 How often do you attend alevism or buddhist serv ices? Never 12/30/2024 Do you belong [...] [facility] - Occupational Stress Questionnaire Answer Date Recorded [...] in a custodial (including now)? No 09/21/2023 PHQ-9 Answer Date [...] time in the past 12 [address] [facility], were you homeless or living in a custodial (including now)? Yes 12/30/2024 Personal Safety Answer Date Recorded Have you ever been in or are you currently in a harmful physical or emotional relationship or is someone making you feel afraid or unsafe? Denies 12/29/2024 Sex and Gender Information Value Date Recorded Sex Assigned at Not on file Legal Sex Male 1:58 AM [employer] Gender Identity Not on file Sexual Orientation Not on file Occupation Industry Job Start Date Job End Date disability Not on file Not on file Not on file Obstetrics History Last Filed Vital Signs Vital Sign Reading Time Taken Comments Blood Pressure 130/84 01/03/2025 3:14 PM CDT Pulse 89 01/03/2025 3:14 PM CDT Temperature 36.6 C (97.9 F) 01/03/2025 3:14 PM CDT Respiratory Rate 18 01/03/2025 3:14 PM CDT Oxygen Saturation 97% 01/03/2025 3:14 PM CDT Inhaled Oxygen Concentration - - Weight 80.8 kg (178 lb 2.1 oz) 12/29/2024 6:21 A M CDT Height 182.9 cm (6') 12/29/2024 6:21 AM CDT Body Mass Index 24.16 12/29/2024 6:21 AM CDT Plan of Treatment Health Maintenance Due Date Last Done Comments Colon Cancer Screening-Colonoscopy 1967 Prostate Cancer Screening-PSA 1967 Hepatitis B Screening 10/16/1985 Regular Well Visit/Exam 18-64 10/16/1985 DTaP/Tdap/Td Vaccine (1 - Tdap) 07/02/1998 07/01/1998 Zoster Vaccine (1 of 2) 10/16/2017 Covid-19 Vaccine (3 - season) 2024 08/18/2020, 07/28/2020 Influenza Vaccine (#1) 2025 , 03/08/2021, 03/03/2019, Additional history exists Depression Screening 12/10/2025 12/10/2024, 12/11/19 Hepatitis C Screening Completed 08/15/2024 Pneumococcal vaccine <65 Aged Out No longer eligible based on patient's age to complete this topic Medical Devices Implanted Type Area [employer] Repairer Device Identifier Shelf Expiration Date Model / Serial / Lot [employer] Kemal 8.5 Fr Nasal Biliary Catheter [id number] - [id number] Implanted:Qty: 1 on 01/26/2022 by Kenneth Loya MD at [facility] Catheter [employer] Kem[employer] 06/22/2024 [id number] / / [id number] [employer] Kemal 10fr 5cm Biliary Double Pigtail Stent [id number] - [id number] Implanted:Qty: 1 on 09/21/2023 by Kenneth Loya MD at [facility] Stent N/A: Bile Duct [employer] Kemal 08/14/2025 [id number] / / [id number] [employer] Kemal 10fr 5cm Biliary Stent [id number] - [id number] Implanted:Qty: 1 on 09/21/2023 by Kenneth Loya MD at [facility] Stent N/A: Bile Duct [employer] Kemal 07/03/2025 [id number] / / [id number] [employer] Kemal 10fr 5cm Biliary Double Pigtail Stent [id number] - [id number] Implanted:Qty: 1 on 09/21/2023 by eKnneth Loya MD at [facility] Stent N/A: Bile Duct [employer] Kemal 08/23/2025 [id number] / / [id number] [employer] Kemal 10fr 5cm Biliary Double Pigtail Stent [id number] - [id number] Implanted:Qty: 1 on 09/21/2023 by Kenneth Loya MD at [facility] Stent N/A: Bile Duct [employer] Kemal 08/23/2025 [id number] / / [id number] [employer] Kemal 10fr 5cm Biliary Double Pigtail Stent [id number] - [id number] Implanted:Qty: 1 on 09/21/2023 by Kenneth Loya MD at [facility] Stent N/A: Bile Duct [employer] Kemal 08/14/2025 [id number] / / [id number] [employer] Kemal 10fr 7cm Biliary Stent [id number] - [id number] Implanted:Qty: 1 on 04/10/2023 by John De Anda MD at [facility] [employer] Kem[employer] [id number] 12/13/2024 [id number] / / [id number] [employer] Kemal 10fr 7cm Biliary Stent [id number] - [id number] Implanted:Qty: 1 on 04/10/2023 by John De Anda MD at [facility] [employer] Kemal [id number] 02/07/2025 [id number] / / [id number] Explanted 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 Area 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[employer] 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 Repairer Device Identifier Shelf Expiration Date Model / Serial / Lot [employer] [id number] Cotton-Young 10fr 7cm Taper Tip Guidewire Proximal Distal Flap - [id number] Implanted:Qty: 1 on 08/04/2021 by Kenneth Loya MD at [facility] Explanted:Qty: 1 on 08/30/2021 at [facility] Stent N/A: Bile Duct [employer] 01/28/2024 [id number] / / [id number] Axios 10 X 10 Stent Delivery System [id number] - [id number] Implanted:Qty: 1 on 08/04/2021 by Kenneth Loya MD at [facility] Explanted:Qty: 1 on 08/30/2021 at [facility] Stent N/A: Bile Duct [employer] Kemal 10/13/2022 [id number] / / [id number] [employer] Geenen 7fr 7cm Positioning Sleeve Push Catheter Guidewire [id number] - [id number] Implanted:Qty: 1 on 08/30/2021 at [facility] Explanted:Qty: 1 on 11/01/2021 by Kenneth Loya MD at [facility] Stent N/A: Pancreas [employer] 11/06/2023 [id number] / / [id number] [employer] Kemal 10fr 5cm Biliary Stent [id number] - [id number] Implanted:Qty: 1 on 01/26/2022 by Kenneth Loya MD at [facility] Explanted:Qty: 1 on 04/06/2022 by Kenneth Loya MD at [facility] Stent [employer] Kem[employer] 11/16/2023 [id number] / / [id number] [employer] Advanix Naviflex 7fr 9cm Radiopaque [place] Endo Marker Color Coded [id number] - [id number] Implanted:Qty: 1 on 01/26/2022 by Kenneth Loya MD at [facility] Explanted:Qty: 1 on 04/06/2022 at [facility] Stent [employer] Kemal 04/16/2023 [id number] / / [id number] [employer] Advanix 8.5fr 7cm Rapid Exchange Temporary [place] Stent [id number] - [id number] Implanted:Qty: 1 on 04/06/2022 by Kenneth Loya MD at [facility] Explanted:Qty: 1 on 07/06/2022 by Kenneth Loya MD at [facility] Stent N/A: Pancreas [employer] Kemal 10/26/2023 [id number] / / [id number] [employer] Advanix 8.5fr 7cm Rapid Exchange Temporary [place] Stent [id number] - [id number] Implanted:Qty: 1 on 04/06/2022 by Kenneth Loya MD at [facility] Explanted:Qty: 1 on 07/06/2022 by Kenneth Loya MD at [facility] Stent N/A: Pancreas [employer] Kem[employer] 10/26/2023 [id number] / / [id number] [employer] Kemal 10fr 5cm Biliary Stent [id number] - [id number] Implanted:Qty: 1 on 09/08/2022 by Kenneth Loya MD at [facility] Explanted:Qty: 1 on 11/03/2022 by Kenneth Loya MD at [facility] Stent N/A: Bile Duct [employer] 08/07/2024 [id number] / / [id number] [employer] Kemal 10fr 5cm Biliary Stent [id number] - [id number] Implanted:Qty: 1 on 09/08/2022 by Kenneth Loya MD at [facility] Explanted:Qty: 1 on 11/03/2022 by Kenneth Loya MD at [facility] Stent N/A: Bile Duct [employer]al 05/04/2024 [id number] / / [id number] [employer] [place]wright Flexi-Stent 7fr 7cm Small Pigtail Flexible .035in Stent 6574 - [id number] Implanted:Qty: 1 on 09/08/2022 by Kenneth Loya MD at [facility] Explanted:Qty: 1 on 11/03/2022 by Kenneth Loya MD at [facility] Stent N/A: Bile Duct [employer] 05/28/2027 [id number] / / [id number] Win [employer] Geenen 8.5fr 9cm Drain Obstructed Positioning Sleeve Pushing [id number] - [id number] Implanted:Qty: 1 on 04/06/2022 by Kenneth Loya MD at [facility] Explanted:Qty: 1 on 01/05/2023 by Kenneth Loya MD at [facility] Stent N/A: Pancreas [employer] 05/03/2024 [id number] / / [id number] [employer] [facility] Cartwright Flexi-Stent 7fr 7cm Small Pigtail Flexible .035in Stent 6574 - [id number] Implanted:Qty: 1 on 11/03/2022 by Kenneth Loya MD at [facility] Explanted:Qty: 1 on 01/05/2023 by Kenneth Loya MD at [facility] Stent N/A: Pancreas [employer] 05/28/2027 [id number] / / [id number] [employer] Kemal 10fr 5cm Biliary Stent [id number] - [id number] Implanted:Qty: 1 on 11/03/2022 by Kenneth Loya MD at [facility] Explanted:Qty: 1 on 01/05/2023 at [facility] Stent N/A: Bile Duct [employer]al 08/15/2024 [id number] / / [id number] [employer] Cotton-Young 10fr 5cm Taper Tip Soft Proximal Distal Flap Gentle [id number] - [id number] Implanted:Qty: 1 on 11/03/2022 by Kenneth Loya MD at [facility] Explanted:Qty: 1 on 01/05/2023 by Kenneth Loya MD at [facility] Stent N/A: Bile Duct [employer] 08/10/2025 [id number] / / [id number] [employer] Cartwright Flexi-Stent 4fr 7cm Small Pigtail Flexible .025in Stent 6544 - [id number] Implanted:Qty: 1 on 01/05/2023 by Kenneth Loya MD at [facility] Explanted:Qty: 1 on 06/02/2023 at [facility] Stent N/A: Pancreas [employer] 07/27/2027 [id number] / / [id number] Description:Not present on t his procedure [employer] Kem[employer] 10fr 7cm Biliary Stent [id number] - [id number] Implanted:Qty: 1 on 01/05/2023 by Kenneth Loya MD at [facility] Explanted:Qty: 1 on 06/02/2023 by Jero Soto MD at [facility] Stent N/A: Bile Duct [employer] 12/13/2024 [id number] / / [id number] [employer] 10fr 7cm Biliary Stent [id number] - [id number] Implanted:Qty: 1 on 01/05/2023 by Kenneth Loya MD at [facility] Explanted:Qty: 1 on 06/02/2023 by Jero Soto MD at [facility] Stent N/A: Bile Duct [employer] 12/13/2024 [id number] / / [id number] [employer] 10fr 5cm Biliary Double Pigtail Stent [id number] - [id number] Implanted:Qty: 1 on 06/02/2023 by Kenneth Loya MD at [facility] Explanted:Qty: 1 on 09/21/2023 by Kenneth Loya MD at [facility] Stent N/A: Bile Duct [employer] 04/30/2025 [id number] / / [id number] [employer] 10fr 5cm Biliary Double Pigtail Stent [id number] - [id number] Implanted:Qty: 1 on 06/02/2023 by Kenneth Loya MD at [facility] Explanted:Qty: 1 on 09/21/2023 by Kenneth Loya MD at [facility] Stent N/A: Bile Duct [employer] 04/30/2025 [id number] / / [id number] [employer] 10fr 5cm Biliary Stent [id number] - [id number] Implanted:Qty: 1 on 06/02/2023 by Kenneth Loya MD at [facility] Explanted:Qty: 1 on 09/21/2023 by Kenneth Loya MD at [facility] Stent N/A: Bile Duct [employer] 02/28/2025 [id number] / / [id number] [employer] 10fr 5cm Biliary Double Pigtail Stent [id number] - [id number] Implanted:Qty: 1 on 06/02/2023 by Kenneth Loya MD at [facility] Explanted:Qty: 1 on 09/21/2023 by Kenneth Loya MD at [facility] Stent N/A: Bile Duct [employer] 04/30/2025 [id number] / / [id number] [employer] [id number] Advanix 10fr 5cm Rapid Exchange Temporary [place] Stent - [id number] Implanted:Qty: 1 on 06/18/2021 by Kenneth Loya MD at [facility] Explanted:Qty: 1 on 08/30/2021 at [facility] [employer] 06/30/2022 [id number] / / [id number] Description:Removed prior [employer] Advanix Od10 Fr L7 Cm 1; Temporary Duodenal Bend Stent Biliary Pl [id number] - [id number] Implanted:Qty: 1 on 08/30/2021 at [facility] Explanted:Qty: 1 on 11/01/2021 by Kenneth Loya MD at [facility] N/A: Bile Duct [employer] 06/25/2022 [id number] / / [id number] [employer] Advanix Naviflex 10fr 9cm Lead Joana Radiopaque Flexible [id number] - [id number] Implanted:Qty: 1 on 11/01/2021 by Kenneth Loya MD at [facility] Explanted:Qty: 1 on 01/05/2022 by Contreras Girard MD at [facility] N/A: Pancreas [employer] 07/18/2022 [id number] / / [id number] 10fr 5cm Biliary Stent [id number] - [id number] Implanted:Qty: 1 on 11/01/2021 by Kenneth Loya MD at [facility] Explanted:Qty: 1 on 01/05/2022 at [facility] N/A: Bile Duct [employer] 08/12/2023 [id number] / / [id number] 10fr 7cm Biliary Stent [id number] - [id number] Implanted:Qty: 1 on 11/01/2021 by Kenneth Loya MD at [facility] Explanted:Qty: 1 on 01/05/2022 by Contreras Girard MD at [facility] N/A: Bile Duct [employer] 08/23/2023 [id number] / / [id number] [employer] Cotton-Young 10fr 5cm Taper Tip Soft Proximal Distal Flap Gentle [id number] - [id number] Implanted:Qty: 1 on 01/05/2022 by Contreras Girard MD at [facility] Explanted:Qty: 1 on 01/26/2022 at [facility] N/A: Bile Duct [employer] 05/07/2022 [id number] / / [id number] [employer] Advanix 7fr 7cm Lead Joana Radiopaque [place] Endo Marker Drainage [id number] - [id number] Implanted:Qty: 1 on 07/06/2022 by Kenneth Loya MD at [facility] Explanted:Qty: 1 on 09/08/2022 by Kenneth Loya MD at [facility] N/A: Pancreas [employer] 05/03/2023 [id number] / / [id number] [employer] Kem[employer] 10fr 5cm Biliary Stent [id number] - [id number] Implanted:Qty: 1 on 07/06/2022 by Kenneth Loya MD at [facility] Explanted:Qty: 1 on 09/08/2022 by Kenneth Loya MD at [facility] N/A: Bile Duct [employer] 12/24/2022 [id number] / / [id number] [employer] 10fr 5cm Biliary Stent [id number] - [id number] Implanted:Qty: 1 on 07/06/2022 by Kenneth Loya MD at [facility] Explanted:Qty: 1 on 09/08/2022 by Kenneth Loya MD at [facility] N/A: Bile Duct [employer] 11/16/2023 [id number] / / [id number] [employer] 10fr 7cm Biliary Stent [id number] - [id number] Explanted:Qty: 1 on 04/10/2023 by John De Anda MD at [facility] [employer] [id number] 12/13/2024 [id number] / / [id number] Description:Unable to place despite multiple attempts Procedures Procedure Name Priority Date/Time Associated Diagnosis Comments EGFR Routine 01/03/2025 6:09 AM CDT DIFFERENTIAL AUTO Routine 01/03/2025 6:0 9 AM CDT BASIC METABOLIC PANEL Routine 01/03/2025 6:09 AM CDT CBC WITH AUTO DIFFERENTIAL Routine 01/03/2025 6:09 AM CDT EGFR Routine 01/02/2025 5:06 AM CDT DIFFERENTIAL AUTO Routine 01/02/2025 5:0 6 AM CDT BASIC METABOLIC PANEL Routine 01/02/2025 5:06 AM CDT CBC WITH AUTO DIFFERENTIAL Routine 01/02/2025 5:06 AM CDT TROPONIN T HIGH-SENSITIVITY 6-HOUR Timed 01/01/2025 4:37 PM CDT TROPONIN T HIGH-SENSITIVITY 4-HR Timed 01/01/2025 2:53 PM CDT TROPONIN T HIGH-SENSITIVITY 2-HOUR Timed 01/01/2025 12:[address] CHEST W CONTRAST IP Routine 01/01/2025 1 2:14 PM CDT ECG 12-LEAD Routine 01/01/2025 10:55 AM CDT TROPONIN T HIGH-SENSITIVITY SERIES (BASELINE, 2HR, 4HR, 6HR) Routine 01/01/2025 10:44 AM CDT EGFR Routine 01/01/2025 4:04 AM CDT DIFFERENTIAL AUTO Routine 01/01/2025 4:0 4 AM CDT BASIC METABOLIC PANEL Routine 01/01/2025 4:04 AM CDT CBC WITH AUTO DIFFERENTIAL Routine 01/01/2025 4:04 AM CDT LIPASE Routine 12/31/2024 11:02 AM CDT MAGNESIUM Routine 12/31/2024 4:27 AM CDT PHOSPHORUS Routine 12/31/2024 4:27 AM CDT EGFR Routine 12/31/2024 4:27 AM CDT DIFFERENTIAL AUTO Routine 12/31/2024 4:2 7 AM CDT BASIC METABOLIC PANEL Routine 12/31/2024 4:27 AM CDT CBC WITH AUTO DIFFERENTIAL Routine 12/31/2024 4:[address] ABDOMEN PELVIS W CONTRAST IP Routine 12/31/2024 12:36 AM CDT POCT GLUCOSE DEVICE Routine 12/30/2024 8 :02 PM CDT DIFFERENTIAL AUTO Routine 12/30/2024 7:0 0 PM CDT CBC WITH AUTO DIFFERENTIAL Routine 12/30/2024 7:00 PM CDT EGFR Routine 12/30/2024 3:11 PM CDT BASIC METABOLIC PANEL Routine 12/30/2024 3:11 PM CDT MAGNESIUM STAT 12/29/2024 12:46 AM CDT PHOSPHORUS STAT 12/29/2024 12:46 AM CDT LIPASE STAT 12/29/2024 12:46 AM CDT EGFR STAT 12/29/2024 12:46 AM CDT URINALYSIS, MICROSCOPIC ONLY STAT 12/29/2024 12:46 AM CDT DIFFERENTIAL AUTO STAT 12/29/2024 12: 46 AM CDT DRUGS OF ABUSE SCREEN, URINE WITH REFLEX CONFIRMATION STAT 12/29/2024 12:46 AM CDT ETHANOL STAT 12/29/2024 12:46 AM CDT COMPREHENSIVE METABOLIC PANEL STAT 12/29/2024 12:46 AM CDT CBC WITH AUTO DIFFERENTIAL STAT 12/29/2024 12:46 AM CDT URINALYSIS AND REFLEX TO MICROSCOPIC AND CULTURE STAT 12/29/2024 12:46 AM CDT EGFR Routine 12/17/2024 6:32 AM CDT DIFFERENTIAL AUTO Routine 12/17/2024 6:3 2 AM CDT MAGNESIUM Routine 12/17/2024 6:32 AM CDT COMPREHENSIVE METABOLIC PANEL Routine 12/17/2024 6:32 AM CDT CBC WITH AUTO DIFFERENTIAL Routine 12/17/2024 6:32 AM CDT EGFR Routine 12/16/2024 4:56 AM CDT DIFFERENTIAL AUTO Routine 12/16/2024 4:5 6 AM CDT MAGNESIUM Routine 12/16/2024 4:56 AM CDT COMPREHENSIVE METABOLIC PANEL Routine 12/16/2024 4:56 AM CDT CBC WITH AUTO DIFFERENTIAL Routine 12/16/2024 4:56 AM CDT EGFR Routine 12/15/2024 4:26 AM CDT DIFFERENTIAL AUTO Routine 12/15/2024 4:2 6 AM CDT MAGNESIUM Routine 12/15/2024 4:26 AM CDT COMPREHENSIVE METABOLIC PANEL Routine 12/15/2024 4:26 AM CDT CBC WITH AUTO DIFFERENTIAL Routine 12/15/2024 4:26 AM CDT EGFR Routine 12/14/2024 5:06 AM CDT DIFFERENTIAL AUTO Routine 12/14/2024 5:0 6 AM CDT LIPASE Routine 12/14/2024 5:06 AM CDT MAGNESIUM Routine 12/14/2024 5:06 AM CDT COMPREHENSIVE METABOLIC PANEL Routine 12/14/2024 5:06 AM CDT CBC WITH AUTO DIFFERENTIAL Routine 12/14/2024 5:06 AM CDT EGFR Routine 12/13/2024 6:05 AM CDT DIFFERENTIAL AUTO Routine 12/13/2024 6:0 5 AM CDT MAGNESIUM Routine 12/13/2024 6:05 AM CDT COMPREHENSIVE METABOLIC PANEL Routine 12/13/2024 6:05 AM CDT CBC WITH AUTO DIFFERENTIAL Routine 12/13/2024 6:05 AM CDT DRUGS OF ABUSE SCREEN, URINE WITHOUT CONFIRMATION STAT 12/12/2024 9:35 AM CDT EGFR Routine 12/12/2024 4:37 AM CDT DIFFERENTIAL AUTO Routine 12/12/2024 4:3 7 AM CDT MAGNESIUM Routine 12/12/2024 4:37 AM CDT COMPREHENSIVE METABOLIC PANEL Routine 12/12/2024 4:37 AM CDT CBC WITH AUTO DIFFERENTIAL Routine 12/12/2024 4:37 AM CDT LIPID PANEL Routine 12/11/2024 5:24 AM CDT EGFR Routine 12/11/2024 5:24 AM CDT DIFFERENTIAL AUTO Routine 12/11/2024 5:2 4 AM CDT CBC WITH AUTO DIFFERENTIAL Routine 12/11/2024 5:24 AM CDT BASIC METABOLIC PANEL Routine 12/11/2024 5:24 AM CDT SEPSIS LACTATE WITH REFLEX Timed 12/10/2024 2:17 PM CDT BLOOD CULTURE STAT 12/10/2024 11:22 AM CDT BLOOD CULTURE STAT 12/10/2024 11:01 AM CDT XR KNEE LEFT 1 OR 2 VIEWS ED 12/10/2024 10:43 AM CDT XR KNEE RIGHT 1 OR 2 VIEWS ED 12/10/2024 10:43 AM CDT SEPSIS LACTATE WITH REFLEX STAT 12/10/2024 10:[address] ABDOMEN PELVIS W CONTRAST ED 12/10/2024 8:35 AM CDT URINALYSIS AND REFLEX TO MICROSCOPIC AND CULTURE STAT 12/10/2024 7:28 AM CDT ETHANOL STAT 12/10/2024 7:22 AM CDT EGFR STAT 12/10/2024 7:22 AM CDT DIFFERENTIAL AUTO STAT 12/10/2024 7:2 2 AM CDT LIPASE STAT 12/10/2024 7:22 AM CDT COMPREHENSIVE METABOLIC PANEL STAT 12/10/2024 7:22 AM CDT CBC WITH AUTO DIFFERENTIAL STAT 12/10/2024 7:22 AM CDT LIPASE Routine 11/29/2024 8:13 AM CDT EGFR Routine 11/29/2024 8:13 AM CDT ETHANOL Routine 11/29/2024 8:13 AM CDT CBC WITHOUT DIFFERENTIAL Routine 11/29/2024 8:13 AM CDT COMPREHENSIVE METABOLIC PANEL Routine 11/29/2024 8:13 AM CDT TROPONIN T HIGH-SENSITIVITY 6-HOUR Timed 11/29/2024 8:13 AM CDT OPIATES CONFIRMATION MS, URINE Routine 11/29/2024 5:22 AM CDT DRUGS OF ABUSE SCREEN, URINE WITH REFLEX CONFIRMATION Routine 11/29/2024 5:22 AM CDT TROPONIN T HIGH-SENSITIVITY 4-HR Timed 11/28/2024 10:27 PM CDT SEPSIS LACTATE WITH REFLEX Timed 11/28/2024 10:20 PM CDT LACTATE DEHYDROGENASE Timed 11/28/2024 9:02 PM CDT TROPONIN T HIGH-SENSITIVITY 2-HOUR Timed 11/28/2024 9:[address] ABDOMEN PELVIS W CONTRAST ED 11/28/2024 8:25 PM CDT SEPSIS LACTATE WITH REFLEX STAT 11/28/2024 7:00 PM CDT EGFR STAT 11/28/2024 6:56 PM CDT LIPASE STAT 11/28/2024 6:56 PM CDT DIFFERENTIAL AUTO STAT 11/28/2024 6:5 6 PM CDT TROPONIN T HIGH-SENSITIVITY SERIES (BASELINE, 2HR, 4HR, 6HR) STAT 11/28/2024 6:56 PM CDT COMPREHENSIVE METABOLIC PANEL STAT 11/28/2024 6:56 PM CDT CBC WITH AUTO DIFFERENTIAL STAT 11/28/2024 6:56 PM CDT XR CHEST 1 VIEW ED 11/28/2024 6:55 PM CDT ECG 12-LEAD STAT 11/28/2024 6:14 PM CDT HEPATITIS C ANTIBODY Timed 08/15/2024 11:28 PM CDT from Last 3 Months or Most Recently Relevant to Health Maintenance Results * eGFR (01/03/2025 6:09 AM CDT) eGFR >90 >=60 mL/min/1. 73 [...] interpretive data was last reviewed 2021. Blood 01/03/2025 6:09 AM CDT 01/03/2025 6:14 AM CDT us Barb Liz Jaffe MD LAB BLOOD ORDERABLES [facility] Result [facility] [address] [facility] [place] [address] * Differential, auto (01/03/2025 6:09 AM CDT) Neutrophil abs 5.02 1.50 - 6.50 K/cumm Imm gran abs 0.04 0.00 - 0.10 K/cumm [facility] Lymphocyte abs 1.89 0.80 - 3.30 K/cumm [facility] Monocyte abs 0.63 0.20 - 0.80 K/cumm [facility] Eosinophil abs 0.14 0.00 - 0.50 K/cumm [facility] Basophil abs 0.02 0.00 - 0.10 K/cumm [facility] Neutrophil pct 64.9 % [facility] Comment: Interpretive Data Percent cell count reference ranges are not reported, since discordance with absolute values may lead to misinterpretation of CBC data. Current Interpretive Data was last revised on 2017. Imm gran pct 0.5 % [facility] Comment: Interpretive Data Percent cell count reference ranges are not reported, since discordance with absolute values may lead to misinterpretation of CBC data. Current Interpretive Data was last revised on 2017. Lymphocyte pct 24.4 % [facility] Comment: Interpretive Data Percent cell count reference ranges are not reported, since discordance with absolute values may lead to misinterpretation of CBC data. Current Interpretive Data was last revised on 2017. Monocyte pct 8.1 % [facility] Comment: Interpretive Data Percent cell count reference ranges are not reported, since discordance with absolute values may lead to misinterpretation of CBC data. Current Interpretive Data was last revised on 2017. Eosinophil pct 1.8 % [facility] Comment: Interpretive Data Percent cell count reference ranges are not reported, since discordance with absolute values may lead to misinterpretation of CBC data. Current Interpretive Data was last revised on 2017. Basophil pct 0.3 % [facility] Comment: Interpretive Data Percent cell count reference ranges are not reported, since discordance with absolute values may lead to misinterpretation of CBC data. Current Interpretive Data was last revised on 2017. Blood 01/03/2025 6:09 AM CDT 01/03/2025 6:14 AM CDT Barb Jaffe MD LAB BLOOD ORDERABLES [facility]isha st Result Performing Organization Address City/[facility] Co de Phone Number [facility] [id number] [place] [address] * (ABNORMAL) CBC with auto differential (01/03/2025 6:09 AM CDT) [facility] WBC 7.74 3.80 - 9.90 K/cumm Hgb 10.7(L) 13.0 - 17.5 g/dL [facility] Hct 31.9(L) 38.9 - 50.3 % [facility] Plt 226 150 - 400 K/cumm [facility] MPV 9.7 9.1 - 12.3 fL [facility] RBC 3.65(L) 4.30 - 5.80 M/cumm [facility] MCV 87.4 81.3 - 96.4 fL [facility] MCH 29.3 27.1 - 33.3 pg [facility] MCHC 33.5 32.3 - 35.7 g/dL [facility] RDW CV 14.8 11.1 - 14.9 % [facility] RDW SD 47.7 35.7 - 48.1 fL [facility] NRBC abs 0.00 0.00 - 0.01 K/cumm [facility] Blood 01/03/2025 6:09 AM CDT 01/03/2025 6:14 AM CDT Barb Jaffe MD LAB BLOOD ORDERABLES Maisha st Result Performing Organization Address City/[facility] Co de Phone Number SANT[facility]O [address] [place] [address] * Basic metabolic panel (01/03/2025 6:09 AM CDT) [facility] Sodium 137 135 - 145 mmol/L Potassium, pl 4.0 3.3 - 4.9 mmol/L [facility] Chloride 103 97 - 110 mmol/L [facility] CO2 26 22 - 32 mmol/L [facility] Anion gap 8 2 - 15 mmol/L [facility] BUN 11 6 - 25 mg/dL [facility] Creatinine 0.90 0.80 - 1.30 mg/dL [facility] Glucose 116 70 - 199 mg/dL [facility] Comment: Interpretive Data Fasting glucose >/= [...] 2022. Calcium 9.5 8.5 - 10.3 mg/dL [facility] Blood 01/03/2025 6:09 AM CDT 01/03/2025 6:14 AM CDT [facility] Liz Jaffe MD LAB BLOOD ORDERABLES Maisha st Result [facility] [address] [facility] [place] [address] * eGFR (01/02/2025 5:06 AM CDT) [facility] eGFR 84 >=60 mL/min/1. 73 m2 Comment: Interpretive Data [...] interpretive data was last reviewed 2021. Blood 01/02/2025 5:06 AM CDT 01/02/2025 5:48 AM CDT us Barb Liz Jaffe MD LAB BLOOD ORDERABLES Maisha st Result [facility] [address] [facility] [place] [address] * Differential, auto (01/02/2025 5:06 AM CDT) Pathologist [facility] Neutrophil abs 2.76 1.50 - 6.50 K/cumm Imm gran abs 0.02 0.00 - 0.10 K/cumm [facility] Lymphocyte abs 1.96 0.80 - 3.30 K/cumm [facility] Monocyte abs 0.47 0.20 - 0.80 K/cumm [facility] Eosinophil abs 0.29 0.00 - 0.50 K/cumm [facility] Basophil abs 0.04 0.00 - 0.10 K/cumm [facility] Neutrophil pct 49.8 % [facility] Comment: Interpretive Data Percent cell count reference ranges are not reported, since discordance with absolute values may lead to misinterpretation of CBC data. Current Interpretive Data was last revised on 2017. Imm gran pct 0.4 % [facility] Comment: Interpretive Data Percent cell count reference ranges are not reported, since discordance with absolute values may lead to misinterpretation of CBC data. Current Interpretive Data was last revised on 2017. Lymphocyte pct 35.4 % [facility] Comment: Interpretive Data Percent cell count reference ranges are not reported, since discordance with absolute values may lead to misinterpretation of CBC data. Current Interpretive Data was last revised on 2017. Monocyte pct 8.5 % [facility] Comment: Interpretive Data Percent cell count reference ranges are not reported, since discordance with absolute values may lead to misinterpretation of CBC data. Current Interpretive Data was last revised on 2017. Eosinophil pct 5.2 % [facility] Comment: Interpretive Data Percent cell count reference ranges are not reported, since discordance with absolute values may lead to misinterpretation of CBC data. Current Interpretive Data was last revised on 2017. Basophil pct 0.7 % [facility] Comment: Interpretive Data Percent cell count reference ranges are not reported, since discordance with absolute values may lead to misinterpretation of CBC data. Current Interpretive Data was last revised on 2017. Blood 01/02/2025 5:06 AM CDT 01/02/2025 5:46 AM CDT us Barb Liz Jaffe MD LAB BLOOD ORDERABLES Maisha st Result [place] [id number] [facility] [place] [address] * (ABNORMAL) CBC with auto differential (01/02/2025 5:06 AM CDT) WBC 5.54 3.80 - 9.90 K/cumm Hgb 10.3(L) 13.0 - 17.5 g/dL [facility] Hct 30.9(L) 38.9 - 50.3 % [facility] Plt 181 150 - 400 K/cumm [facility] MPV 10.1 9.1 - 12.3 fL [facility] RBC 3.55(L) 4.30 - 5.80 M/cumm [facility] MCV 87.0 81.3 - 96.4 fL [facility] MCH 29.0 27.1 - 33.3 pg [facility] MCHC 33.3 32.3 - 35.7 g/dL [facility] RDW CV 14.6 11.1 - 14.9 % [facility] RDW SD 46.3 35.7 - 48.1 fL [facility] NRBC abs 0.00 0.00 - 0.01 K/cumm [facility] Blood 01/02/2025 5:06 AM CDT 01/02/2025 5:46 AM CDT Barb Jaffe MD LAB BLOOD ORDERABLES Maisha st Result Performing Organization Address City/[facility]/ZIP Co de Phone Number S[facility]O [address] [facility] [place] [address] * Basic metabolic panel (01/02/2025 5:06 AM CDT) [facility] Sodium 136 135 - 145 mmol/L Potassium, pl 4.0 3.3 - 4.9 mmol/L [facility] Chloride 101 97 - 110 mmol/L [facility] CO2 23 22 - 32 mmol/L [facility] Anion gap 12 2 - 15 mmol/L [facility] BUN 8 6 - 25 mg/dL [facility] Creatinine 1.04 0.80 - 1.30 mg/dL [facility] Glucose 116 70 - 199 mg/dL [facility] Comment: Interpretive Data Fasting glucose >/= [...] interpretive data was last revised 2022. Calcium 9.2 8.5 - 10.3 mg/dL [facility] Blood 01/02/2025 5:06 AM CDT 01/02/2025 5:48 AM CDT Barb Jaffe MD LAB BLOOD ORDERABLES Maisha st Result [facility] [address] [place] [address] * Troponin T high-sensitivity 6-hour (01/01/2025 4:37 PM CDT) Trop T hs <6 <=22 ng/L Comment: Interpretive Data For further hscTnT resources including the diagnostic algorithm and an aid in interpretation, copy and paste this link: [email or web address]/show/[email or web address] Current Interpretive Data last revised 2020. Trop T hs delta 0 ng/L [facility] Trop T hs interp Insignificant [facility] Blood 01/01/2025 4:37 PM CDT 01/01/2025 5:15 PM CDT Kaylynn Samuels MD LAB BLOOD ORDERABLE S Final Result Performing Organization Address [facility] Co de Phone Number [address] [place] [address] * Troponin T high-sensitivity 4-hour (01/01/2025 2:53 PM CDT) Pathologist [facility] Trop T hs <6 <=22 ng/L Comment: Interpretive Data For further hscTnT resources including the diagnostic algorithm and an aid in interpretation, copy and paste this link: [email or web address]/show/[email or web address] Current Interpretive Data last revised 2020. Trop T hs delta 0 ng/L [facility] Trop T hs interp Insignificant [facility] Blood 01/01/2025 2:53 PM CDT 01/01/2025 2:58 PM CDT us Kaylynn Samuels MD LAB BLOOD ORDERABLE S Final Result Performing Organization Address [facility] Co de Phone Number [address] [employer] [place], [place] [id number] * Troponin T high-sensitivity 2-hour (01/01/2025 12:29 PM CDT) Trop T hs <6 <=22 ng/L Comment: Interpretive Data For further hscTnT resources including the diagnostic algorithm and an aid in interpretation, copy and paste this link: [email or web address]/show/[email or web address] Current Interpretive Data last revised 2020. Trop T hs delta 0 ng/L [facility] WILL Trop T hs interp Insignificant [facility] Blood 01/01/2025 12:2 9 PM CDT 01/01/2025 12:56 PM CDT Kaylynn Samuels MD LAB BLOOD ORDERABLE S Final Result [facility] [address] [facility] [place] [address] * CT Chest W Contrast (01/01/2025 12:14 PM CDT) Anatomical Region Laterality Modality Body N/A Computed Tomogra phy 01/01/2025 6:29 PM CDT Narrative 01/01/2025 6:35 PM CDT EXAM DESCRIPTION: CT CHEST W CONTRAST REASON FOR STUDY: Chest pain Chest pain TECHNIQUE: CT scan of the chest performed with intravenous contrast using helical scanning technique with dynamic intravenous contrast injection. Reconstructed coronal and sagittal MPR images reviewed. All images stored on PACS. Automated exposure control was used as a dose optimization technique for this examination. CONTRAST TYPE/DOSE: 100mL of IOVERSOL 350 MG IODINE/ML INTRAVENOUS SYRINGE injected via intravenous COMPARISON: CT chest 08/16/2024 FINDINGS: LUNGS: Central airways are clear. No evidence of pneumonia. Stable scarring within the left lower lobe. No suspicious pulmonary nodules. PLEURA: No effusion. No pneumothorax. MEDIASTINUM/TAVO: No identified masses or abnormal nodes. HEART: Heart size is normal with no pericardial effusion. VASCULATURE: No thoracic aortic aneurysm. No evidence of dissection. AXILLA: No adenopathy. CHEST WALL: No masses. No subcutaneous air. HARDWARE/LINES/TUBES: None. UPPER ABDOMEN: Upper abdominal inflammatory changes are better characterized on CT abdomen and pelvis 12/31/2024. MUSCULOSKELETAL: No significant abnormality. OTHER: No other significant abnormality. IMPRESSION: No acute findings of the chest. THIS IS AN ELECTRONICALLY VERIFIED FINAL REPORT 01/01/2025 6:35 PM - Electronically signed by Michael Plummer M.D. KR T: Report ID: [id number] Reading Location: [place] [address] Procedure Note Michael Plummer MD - 01/01/2025 EXAM DESCRIPTION: CT CHEST W CONTRAST REASON FOR STUDY: Chest pain Chest pain TECHNIQUE: CT scan of the chest performed with intravenous contrast using helical scanning technique with dynamic intravenous contrast injection. Reconstructed coronal and sagittal MPR images reviewed. All images storedon PACS. Automated exposure control was used as a dose optimizationtechnique for this examination. CONTRAST TYPE/DOSE: 100mL of IOVERSOL 350 MG IODINE/ML INTRAVENOUS SYRINGE injected via intravenous COMPARISON: CT chest 08/16/2024 FINDINGS: LUNGS: Central airways are clear. No evidence of pneumonia. Stable scarring within the left lower lobe. No suspicious pulmonarynodules. PLEURA: No effusion. No pneumothorax. MEDIASTINUM/TAVO: No identified masses or abnormal nodes. HEART: Heart size is normal with no pericardial effusion. VASCULATURE: No thoracic aortic aneurysm. No evidence of dissection. AXILLA: No adenopathy. CHEST WALL: No masses. No subcutaneous air. HARDWARE/LINES/TUBES: None. UPPER ABDOMEN: Upper abdominal inflammatory changes are bettercharacterized on CT abdomen and pelvis 12/31/2024. MUSCULOSKELETAL: No significant abnormality. OTHER: No other significant abnormality. IMPRESSION: No acute findings of the chest. THIS IS AN ELECTRONICALLY VERIFIED FINAL REPORT 01/01/2025 6:35 PM - Electronically signed by Michael CRAWLEY T: Report ID: [id number] Reading Location: [place] [address] Kaylynn Samuels MD IMG CT PROCEDURES F inal Result * ECG 12 lead (01/01/2025 10:55 AM CDT) Ventricular Rate EKG/Min 74 BPM [facility] Atrial Rate 74 BPM [facility] MA-Interval (MSEC) 152 ms [facility] QRS-Interval (MSEC) 86 ms [facility] QT-Interval (MSEC) 402 ms [facility] QTc 446 ms [facility] P [place] 37 degrees [facility] R [place] -19 degrees [facility] T [place] 7 degrees [facility] Diagnosis Normal sinus rhythm Minimal voltage criteria for LVH, may be normal variant ( R in aVL ) Septal infarct , age undetermined Confirmed by SHRUTHI PONCE M.D. ([id number]) on 01/01/2025 5:48:35 PM [facility] 01/01/2025 10:5 5 AM CDT 01/01/2025 5:48 PM CDT Kaylynn Samuels MD ECG ORDERABLES Fin al Result Performing Organization Address City/[facility]/ZIP Co de Phone Number [facility] * Troponin T high-sensitivity series (baseline, 2hr, 4hr, 6hr) (01/01/2025 10:44 AM CDT) Trop T hs <6 <=22 ng/L Comment: Interpretive Data For further hscTnT resources including the diagnostic algorithm and an aid in interpretation, copy and paste this link: https://nrl.testcatalog.org/show/[email or web address] Current Interpretive Data last revised 2020. Blood 01/01/2025 10:4 4 AM CDT 01/01/2025 11:13 AM CDT us Kaylynn Samuels MD LAB BLOOD ORDERABLE S Final Result Performing Organization Address City/[facility]/ZIP Co de Phone Number SANTIAGO [address] [facility] [place] [address] * eGFR (01/01/2025 4:04 AM CDT) eGFR 83 >=60 mL/min/1. 73 m2 Comment: Interpretive Data [...] interpretive data was last reviewed 2021. Blood 01/01/2025 4:04 AM CDT 01/01/2025 4:21 AM CDT us Barb Liz Jaffe MD LAB BLOOD ORDERABLES Maisha st Result [facility] [address] [facility] [place] [address] * Differential, auto (01/01/2025 4:04 AM CDT) Neutrophil abs 3.21 1.50 - 6.50 K/cumm Imm gran abs 0.02 0.00 - 0.10 K/cumm [facility] Lymphocyte abs 2.03 0.80 - 3.30 K/cumm [facility] Monocyte abs 0.55 0.20 - 0.80 K/cumm [facility] Eosinophil abs 0.26 0.00 - 0.50 K/cumm [facility] Basophil abs 0.04 0.00 - 0.10 K/cumm [facility] Neutrophil pct 52.5 % [facility] Comment: Interpretive Data Percent cell count reference ranges are not reported, since discordance with absolute values may lead to misinterpretation of CBC data. Current Interpretive Data was last revised on 2017. Imm gran pct 0.3 % [facility] Comment: Interpretive Data Percent cell count reference ranges are not reported, since discordance with absolute values may lead to misinterpretation of CBC data. Current Interpretive Data was last revised on 2017. Lymphocyte pct 33.2 % [facility] Comment: Interpretive Data Percent cell count reference ranges are not reported, since discordance with absolute values may lead to misinterpretation of CBC data. Current Interpretive Data was last revised on 2017. Monocyte pct 9.0 % [facility] Comment: Interpretive Data Percent cell count reference ranges are not reported, since discordance with absolute values may lead to misinterpretation of CBC data. Current Interpretive Data was last revised on 2017. Eosinophil pct 4.3 % [facility] Comment: Interpretive Data Percent cell count reference ranges are not reported, since discordance with absolute values may lead to misinterpretation of CBC data. Current Interpretive Data was last revised on 2017. Basophil pct 0.7 % [facility] Comment: Interpretive Data Percent cell count reference ranges are not reported, since discordance with absolute values may lead to misinterpretation of CBC data. Current Interpretive Data was last revised on 2017. Blood 01/01/2025 4:04 AM CDT 01/01/2025 4:20 AM CDT Barb Liz Jaffe MD LAB BLOOD ORDERABLES Maisha st Result [place] [address] [facility] [place] [address] * (ABNORMAL) CBC with auto differential (01/01/2025 4:04 AM CDT) WBC 6.11 3.80 - 9.90 K/cumm Hgb 9.9(L) 13.0 - 17.5 g/dL [facility] Hct 29.8(L) 38.9 - 50.3 % [facility] Plt 173 150 - 400 K/cumm [facility] MPV 9.7 9.1 - 12.3 fL [facility] RBC 3.44(L) 4.30 - 5.80 M/cumm [facility] MCV 86.6 81.3 - 96.4 fL [facility] MCH 28.8 27.1 - 33.3 pg [facility] MCHC 33.2 32.3 - 35.7 g/dL [facility] RDW CV 14.5 11.1 - 14.9 % [facility] RDW SD 46.3 35.7 - 48.1 fL [facility] NRBC abs 0.00 0.00 - 0.01 K/cumm [facility] Blood 01/01/2025 4:04 AM CDT 01/01/2025 4:20 AM CDT Barb Jaffe MD LAB BLOOD ORDERABLES Maisha l Result Performing Organization Address [facility] Co de Phone Number [address] [place] [address] * Basic metabolic panel (01/01/2025 4:04 AM CDT) Pathologist [facility] Sodium 136 135 - 145 mmol/L Potassium, pl 3.7 3.3 - 4.9 mmol/L [facility] Chloride 102 97 - 110 mmol/L [facility] CO2 23 22 - 32 mmol/L [facility] Anion gap 11 2 - 15 mmol/L [facility] BUN 6 6 - 25 mg/dL [facility] Creatinine 1.05 0.80 - 1.30 mg/dL [facility] Glucose 128 70 - 199 mg/dL [facility] Comment: Interpretive Data Fasting glucose >/= [...] interpretive data was last revised 2022. Calcium 8.5 8.5 - 10.3 mg/dL [facility] Blood 01/01/2025 4:04 AM CDT 01/01/2025 4:21 AM CDT Barb Jaffe MD LAB BLOOD ORDERABLES Maisha l Result Performing Organization Address City/[facility]/ZIP Co de Phone Number [address] [place] [address] * Lipase (12/31/2024 11:02 AM CDT) [facility] Lipase 11 10 - 99 Units/L Blood 12/31/2024 11:0 2 AM CDT 12/31/2024 11:17 AM CDT Kaylynn Samuels MD LAB BLOOD ORDERABLE S Final Result Performing Organization Address City/[facility]/ZIP Co de Phone Number ELE[address] [place] [address] * eGFR (12/31/2024 4:27 AM CDT) [facility] eGFR >90 >=60 mL/min/1. 73 m2 [...] interpretive data was last reviewed 2021. Blood 12/31/2024 4:27 AM CDT 12/31/2024 4:42 AM CDT us Barb Jaffe MD LAB BLOOD ORDERABLES Maisha l Result Performing Organization Address City/[facility]/ZIP Co de Phone Number [address] [place] [address] * Differential, auto (12/31/2024 4:27 AM CDT) Neutrophil abs 3.76 1.50 - 6.50 K/cumm Imm gran abs 0.02 0.00 - 0.10 K/cumm [facility] Lymphocyte abs 1.93 0.80 - 3.30 K/cumm [facility] Monocyte abs 0.58 0.20 - 0.80 K/cumm [facility] Eosinophil abs 0.24 0.00 - 0.50 K/cumm [facility] Basophil abs 0.05 0.00 - 0.10 K/cumm [facility] Neutrophil pct 57.2 % [facility] Comment: Interpretive Data Percent cell count reference ranges are not reported, since discordance with absolute values may lead to misinterpretation of CBC data. Current Interpretive Data was last revised on 2017. Imm gran pct 0.3 % [facility] Comment: Interpretive Data Percent cell count reference ranges are not reported, since discordance with absolute values may lead to misinterpretation of CBC data. Current Interpretive Data was last revised on 2017. Lymphocyte pct 29.3 % [facility] Comment: Interpretive Data Percent cell count reference ranges are not reported, since discordance with absolute values may lead to misinterpretation of CBC data. Current Interpretive Data was last revised on 2017. Monocyte pct 8.8 % [facility] Comment: Interpretive Data Percent cell count reference ranges are not reported, since discordance with absolute values may lead to misinterpretation of CBC data. Current Interpretive Data was last revised on 2017. Eosinophil pct 3.6 % [facility] Comment: Interpretive Data Percent cell count reference ranges are not reported, since discordance with absolute values may lead to misinterpretation of CBC data. Current Interpretive Data was last revised on 2017. Basophil pct 0.8 % [facility] Comment: Interpretive Data Percent cell count reference ranges are not reported, since discordance with absolute values may lead to misinterpretation of CBC data. Current Interpretive Data was last revised on 2017. Blood 12/31/2024 4:27 AM CDT 12/31/2024 4:42 AM CDT us Barb Liz Jaffe MD LAB BLOOD ORDERABLES Maisha st Result [address] [address] * (ABNORMAL) CBC with auto differential (12/31/2024 4:27 AM CDT) [facility] WBC 6.58 3.80 - 9.90 K/cumm Hgb 11.3(L) 13.0 - 17.5 g/dL [facility] Hct 32.8(L) 38.9 - 50.3 % [facility] Plt 193 150 - 400 K/cumm [facility] MPV 9.3 9.1 - 12.3 fL [facility] RBC 3.86(L) 4.30 - 5.80 M/cumm [facility] MCV 85.0 81.3 - 96.4 fL [facility] MCH 29.3 27.1 - 33.3 pg [facility] MCHC 34.5 32.3 - 35.7 g/dL [facility] RDW CV 14.5 11.1 - 14.9 % [facility] RDW SD 44.9 35.7 - 48.1 fL [facility] NRBC abs 0.00 0.00 - 0.01 K/cumm [facility] Blood 12/31/2024 4:27 AM CDT 12/31/2024 4:42 AM CDT us Barb Jaffe MD LAB BLOOD ORDERABLES Maisha l Result Performing Organization Address [facility] Co de Phone Number [address] [address] * Phosphorus (12/31/2024 4:27 AM CDT) [facility] Phosphorus, pl 3.2 2.3 - 4.5 mg/dL Blood 12/31/2024 4:27 AM CDT 12/31/2024 4:42 AM CDT us Kaylynn Samuels MD LAB BLOOD ORDERABLE S Final Result Performing Organization Address City/[facility]/ZIP Co de Phone Number [address] [address] * Magnesium (12/31/2024 4:27 AM CDT) [facility] Magnesium 1.5 1.4 - 2.5 mg/dL Blood 12/31/2024 4:27 AM CDT 12/31/2024 4:42 AM CDT Kaylynn Samuels MD LAB BLOOD ORDERABLE S Final Result [facility] [address] [place] [address] * (ABNORMAL) Basic metabolic panel (12/31/2024 4:27 AM CDT) [facility] Sodium 134(L) 135 - 145 mmol/L Potassium, pl 3.3 3.3 - 4.9 mmol/L [facility] Chloride 101 97 - 110 mmol/L [facility] CO2 21(L) 22 - 32 mmol/L [facility] Anion gap 12 2 - 15 mmol/L [facility] BUN 4(L) 6 - 25 mg/dL [facility] Creatinine 0.79(L) 0.80 - 1.30 mg/dL [facility] Glucose 114 70 - 199 mg/dL [facility] Comment: Interpretive Data Fasting glucose >/= [...] 2022. Calcium 9.0 8.5 - 10.3 mg/dL [facility] Blood 12/31/2024 4:27 AM CDT 12/31/2024 4:42 AM CDT Barb Koodi MD LAB BLOOD ORDERABLES Maisha st Result [facility] [address] [facility] [place] [address] * CT Abdomen Pelvis W Contrast (12/31/2024 12:36 AM CDT) Anatomical Region Laterality Modality Body N/A Computed Tomogra phy 12/31/2024 9:11 AM CDT Narrative 12/31/2024 9:26 AM CDT EXAM DESCRIPTION: CT ABDOMEN PELVIS W CONTRAST REASON FOR STUDY: alcoholic with chronic pancreatitis, now complains of moderately severe epigastric pain radiating to his back Pt presenting to the ED yesterday c/o alcohol abuse with the last 40 years. Patient states he is wanting to be admitted to the detox program. Patient complains of generalized body aches. Pt having abd pain on the upper right posterior side the worst but endorses pain all over abd TECHNIQUE: CT scan of the abdomen and pelvis performed with intravenous and without oral contrast using helical scanning technique with dynamic intravenous contrast injection. Reconstructed coronal and sagittal MPR images reviewed. All images stored on PACS. Automated exposure control was used as a dose optimization technique for this examination. CONTRAST TYPE/DOSE: 100mL of IOVERSOL 350 MG IODINE/ML INTRAVENOUS SYRINGE injected via intravenous COMPARISON: 12/10/2024 FINDINGS: LOWER CHEST: Band like densities both bases greatest on the left new from previous may represent bands of atelectasis with subtle infiltrative difficult to exclude. Heart size moderately enlarged. LIVER: Normal size. No identified cystic or solid masses. GALLBLADDER: Normally distended. Subtle wall thickening adjacent to numerous varicosities. BILE DUCTS: No intrahepatic or extrahepatic ductal dilatation. SPLEEN: Normal size. No focal lesions. PANCREAS: Pancreatic body and tail are relatively unremarkable. Slight prominence pancreatic duct measuring 0.7 cm, similar to previous. Pancreas head region is somewhat ill-defined with surrounding induration and central calcification. This is more pronounced than previous. Induration extends to the adjacent descending duodenum with a suggestion of duodenal wall thickening. Findings may be related to primary pancreatitis or the pancreas may be secondarily involved related to duodenitis. No focal air or fluid collection to suggest nicole perforation of bowel or pseudocyst formation. Numerous adjacent moderate-sized lymph nodes are present and increased from previous. These changes are noted and also surround the confluence of the splenic and portal veins. No pseudo aneurysmal formation identified. ADRENALS: Normal. KIDNEYS/URINARY TRACT: No identified significant cystic or solid masses. No visualized stones. No hydronephrosis or hydroureter. Symmetric enhancement. Urinary bladder is unremarkable. GI: The stomach has a normal caliber and is largely decompressed. The remainder of small bowel demonstrates no marked dilatation. The appendix is not well visualized. The colon demonstrates moderate stool burden. PERITONEUM: Small volume free pelvic fluid. No loculated collections or free air. RETROPERITONEUM: Moderate adenopathy as described above near the pancreatic head and small bowel mesentery. REPRODUCTIVE: No significant abnormality. VASCULATURE: No abdominal aortic aneurysm. Portal vein is poorly visualized in the aileen hepatis suggesting severe narrowing or focal occlusion. Extensive cavernous transformation changes are redemonstrated. Evidence of portal venous hypertension through the remainder of the abdomen. MUSCULOSKELETAL: No significant abnormality. OTHER: No other abnormality. IMPRESSION: 1. Increasing induration surrounding the pancreatic head with adjacent duodenal wall thickening and surrounding adenopathy. Findings may be related to primary pancreatitis or secondary involvement of the pancreas related to duodenitis. 2. No evidence of nicole bowel perforation or pseudocyst formation. 3. 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 4. Small volume free pelvic fluid. 5. Band like densities both lung bases greatest on the left may represent bands of atelectasis with subtle infiltrative difficult to exclude. THIS IS AN ELECTRONICALLY VERIFIED FINAL REPORT 12/31/2024 9:26 AM - Electronically signed by Mitul FERNANDEZ T: Report ID: [id number] Reading Location: [id number] Procedure Note Mitul Burt MD - 12/31/2024 EXAM DESCRIPTION: CT ABDOMEN PELVIS W CONTRAST REASON FOR STUDY: alcoholic with chronic pancreatitis, now complains of moderately severe epigastric pain radiating to his back Pt presenting to the ED yesterday c/o alcohol abuse with the last 40years. Patient states he is wanting to be admitted to the detox program.Patient complains of generalized body aches. Pt having abd pain on the upperright posterior side the worst but endorses pain all over abd TECHNIQUE: CT scan of the abdomen and pelvis performed with intravenousand without oral contrast using helical scanning technique with dynamic intravenous contrast injection. Reconstructed coronal and sagittal MPRimages reviewed. All images stored on PACS. Automated exposure control was usedas a dose optimization technique for this examination. CONTRAST TYPE/DOSE: 100mL of IOVERSOL 350 MG IODINE/ML INTRAVENOUSSYRINGE injected via intravenous COMPARISON: 12/10/2024 FINDINGS: LOWER CHEST: Band like densities both bases greatest on theleft new from previous may represent bands of atelectasis with subtleinfiltrative difficult to exclude. Heart size moderately enlarged. LIVER: Normal size. No identified cystic or solid masses. GALLBLADDER: Normally distended. Subtle wall thickening adjacent to numerous varicosities. BILE DUCTS: No intrahepatic or extrahepatic ductal dilatation. SPLEEN: Normal size. No focal lesions. PANCREAS: Pancreatic body and tail are relatively unremarkable. Slight prominence pancreatic duct measuring 0.7 cm, similar to previous. Pancreas head region is somewhat ill-defined with surrounding indurationand central calcification. This is more pronounced than previous. Induration extends to the adjacent descending duodenum with a suggestion of duodenalwall thickening. Findings may be related to primary pancreatitis or thepancreas may be secondarily involved related to duodenitis. No focal air or fluid collection to suggest nicole perforation of bowel or pseudocyst formation. Numerous adjacent moderate-sized lymph nodes are present and increasedfrom previous. These changes are noted and also surround the confluence of the splenicand portal veins. No pseudo aneurysmal formation identified. ADRENALS: Normal. KIDNEYS/URINARY TRACT: No identified significant cystic or solid masses.No visualized stones. No hydronephrosis or hydroureter. Symmetricenhancement. Urinary bladder is unremarkable. GI: The stomach has a normal caliber and is largely decompressed. The remainder of small bowel demonstrates no marked dilatation. The appendixis not well visualized. The colon demonstrates moderate stool burden. PERITONEUM: Small volume free pelvic fluid. No loculated collections or free air. RETROPERITONEUM: Moderate adenopathy as described above near thepancreatic head and small bowel mesentery. REPRODUCTIVE: No significant abnormality. VASCULATURE: No abdominal aortic aneurysm. Portal vein is poorly visualized in the aileen hepatis suggesting severe narrowing or focal occlusion. Extensive cavernous transformation changesare redemonstrated. Evidence of portal venous hypertension through theremainder of the abdomen. MUSCULOSKELETAL: No significant abnormality. OTHER: No other abnormality. IMPRESSION: 1. Increasing induration surrounding the pancreatic head with adjacent duodenal wall thickening and surrounding adenopathy. Findings may berelated to primary pancreatitis or secondary involvement of the pancreas relatedto duodenitis. 2. No evidence of nicole bowel perforation or pseudocyst formation. 3. 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 4. Small volume free pelvic fluid. 5. Band like densities both lung bases greatest on the left mayrepresent bands of atelectasis with subtle infiltrative difficult to exclude. THIS IS AN ELECTRONICALLY VERIFIED FINAL REPORT 12/31/2024 9:26 AM - Electronically signed by Mitul Burt M.D. RB T: Report ID: [id number] Reading Location: [place] [address] Barb Jaffe MD IMG CT PROCEDURES Final R esult * POCT glucose (12/30/2024 8:02 PM CDT) [facility] Glucose, POC 124 70 - 199 mg/dL Blood 12/30/2024 8:02 PM CDT 12/30/2024 8:02 PM CDT Barb Jaffe MD LAB POCT ORDERABLES - DEV ICE Final Result [facility] [address] [facility] [place] [address] * Differential, auto (12/30/2024 7:00 PM CDT) [facility] Neutrophil abs 4.64 1.50 - 6.50 K/cumm Imm gran abs 0.02 0.00 - 0.10 K/cumm [facility] Lymphocyte abs 1.67 0.80 - 3.30 K/cumm [facility] Monocyte abs 0.67 0.20 - 0.80 K/cumm [facility] Eosinophil abs 0.17 0.00 - 0.50 K/cumm [facility] Basophil abs 0.06 0.00 - 0.10 K/cumm [facility] Neutrophil pct 64.1 % [facility] Comment: Interpretive Data Percent cell count reference ranges are not reported, since discordance with absolute values may lead to misinterpretation of CBC data. Current Interpretive Data was last revised on 2017. Imm gran pct 0.3 % [facility] Comment: Interpretive Data Percent cell count reference ranges are not reported, since discordance with absolute values may lead to misinterpretation of CBC data. Current Interpretive Data was last revised on 2017. Lymphocyte pct 23.1 % [facility] Comment: Interpretive Data Percent cell count reference ranges are not reported, since discordance with absolute values may lead to misinterpretation of CBC data. Current Interpretive Data was last revised on 2017. Monocyte pct 9.3 % [facility] Comment: Interpretive Data Percent cell count reference ranges are not reported, since discordance with absolute values may lead to misinterpretation of CBC data. Current Interpretive Data was last revised on 2017. Eosinophil pct 2.4 % [facility] Comment: Interpretive Data Percent cell count reference ranges are not reported, since discordance with absolute values may lead to misinterpretation of CBC data. Current Interpretive Data was last revised on 2017. Basophil pct 0.8 % [facility] Comment: Interpretive Data Percent cell count reference ranges are not reported, since discordance with absolute values may lead to misinterpretation of CBC data. Current Interpretive Data was last revised on 2017. Blood 12/30/2024 7:00 PM CDT 12/30/2024 7:05 PM CDT us Barb Liz Jaffe MD LAB BLOOD ORDERABLES [facility]isha st Result [facility] [address] [facility] [place] [address] * (ABNORMAL) CBC with auto differential (12/30/2024 7:00 PM CDT) WBC 7.23 3.80 - 9.90 K/cumm Hgb 11.7(L) 13.0 - 17.5 g/dL [facility] Hct 34.2(L) 38.9 - 50.3 % [facility] Plt 189 150 - 400 K/cumm [facility] MPV 8.8(L) 9.1 - 12.3 fL [facility] RBC 4.03(L) 4.30 - 5.80 M/cumm [facility] MCV 84.9 81.3 - 96.4 fL [facility] MCH 29.0 27.1 - 33.3 pg [facility] MCHC 34.2 32.3 - 35.7 g/dL [facility] RDW CV 14.4 11.1 - 14.9 % [facility] RDW SD 44.5 35.7 - 48.1 fL [facility] NRBC abs 0.00 0.00 - 0.01 K/cumm [facility] Blood 12/30/2024 7:00 PM CDT 12/30/2024 7:05 PM CDT Barb Liz Jaffe MD LAB BLOOD ORDERABLES Maisha st Result [facility] [address] Department of [facility] [place], [place] [id number] * eGFR (12/30/2024 3:11 PM CDT) eGFR >90 >=60 mL/min/1. 73 [...] interpretive data was last reviewed 2021. Blood 12/30/2024 3:11 PM CDT 12/30/2024 3:25 PM CDT Barb Jaffe MD LAB BLOOD ORDERABLES Maisha l Result Performing Organization Address [facility] Co de Phone Number [facility] [address] [place] [address] * (ABNORMAL) Basic metabolic panel (12/30/2024 3:11 PM CDT) [facility] Sodium 136 135 - 145 mmol/L Potassium, pl 3.5 3.3 - 4.9 mmol/L [facility] Chloride 102 97 - 110 mmol/L [facility] CO2 19(L) 22 - 32 mmol/L [facility] Anion gap 15 2 - 15 mmol/L [facility] BUN 6 6 - 25 mg/dL [facility] Creatinine 0.80 0.80 - 1.30 mg/dL [facility] Glucose 103 70 - 199 mg/dL [facility] Comment: Interpretive Data Fasting glucose >/= [...] interpretive data was last revised 2022. Calcium 8.6 8.5 - 10.3 mg/dL [facility] Blood 12/30/2024 3:11 PM CDT 12/30/2024 3:25 PM CDT Barb Jaffe MD LAB BLOOD ORDERABLES Maisha l Result Performing Organization Address City/[facility] Co de Phone Number [facility] [address] [facility] [place] [address] * (ABNORMAL) Drugs of Abuse Screen, Urine with Reflex Confirmation (12/29/2024 12:46 AM CDT) [facility] Amphetamine, ur Not Detected CutOff 500ng/mL Comment: Interpretive Data - Amphetamines: Samples containing greater than 500 ng/mL d-methamphetamine or other cross-reacting amphetamine compounds are reported as positive. Amphetamine immunoassays are subject to significant false positive rates due to cross-reactivity of non-amphetamine drugs. Confirmatory testing required for definitive results. Current Interpretive Data was last reviewed 2022. Barbiturates, ur Not Detected CutOff 200ng/mL [facility] Comment: Interpretive Data - Barbiturates: Samples containing greater than 200 ng/mL secobarbital or other cross-reacting barbiturate compounds are reported as positive. False positive and false negative results are possible. Confirmatory testing required for definitive results. Current Interpretive Data was last reviewed 2022. Benzodiazepines, ur Screen Positive, presumptive (A) CutOff 100ng/mL [facility] Comment: Interpretive Data - Benzodiazepines: Samples containing greater than 100 ng/mL nordiazepam or other cross-reacting compounds are reported as positive. False positive and false negative results are possible. Confirmatory testing required for definitive results. Current Interpretive Data was last reviewed 2022. Cannabinoids, ur Not Detected CutOff 50 ng/mL [facility] Comment: Interpretive Data - Cannabinoids: Samples containing greater than 50 ng/mL delta-9 THC -COOH or other cross- reacting compounds are reported as positive. False positive and false negative results are possible. Confirmatory testing required for definitive results. Current Interpretive Data was last reviewed 2022. Cocaine, ur Not Detected CutOff 150ng/mL [facility] Comment: Interpretive Data - Cocaine: Samples containing greater than 150 ng/mL benzoylecgonine or other cross- reacting compounds are reported as positive. False positive and false negative results are possible. Confirmatory testing required for definitive results. Current Interpretive Data was last reviewed 2022. Fentanyl, Ur Not Detected CutOff 5 ng/mL [facility] Comment: Interpretive Data - Fentanyl: Samples containing greater than 5 ng/mL norfentanyl, fentanyl, or other cross-reacting fentanyl compounds are reported as positive. False positive and false negative results are possible. Confirmatory testing required for definitive results. Current Interpretive Data was last reviewed 2023. Methadone, ur Not Detected CutOff 300ng/mL [facility] Comment: Interpretive Data - Methadone: Samples containing greater than 300 ng/mL d,l-methadone or other cross-reacting compounds are reported as positive. False positive and false negative results are possible. Confirmatory testing required for definitive results. Current Interpretive Data was last reviewed 2022. Opiates, ur Not Detected CutOff 300ng/mL [facility] Comment: Interpretive Data - Opiates: Samples containing greater than 300 ng/mL morphine or other cross-reacting compounds are reported as positive. False positive and false negative results are possible. Confirmatory testing required for definitive results. Current Interpretive Data was last reviewed 2022. Oxycodone, ur Not Detected CutOff 100ng/mL [facility] Comment: Interpretive Data - Oxycodone: Samples containing [...] Data was last reviewed 2022. Urine Creatinine 332 mg/dL [facility] Comment: Interpretive Data Urine Creatinine: < 10 mg/dL is extremely dilute = or > 10 but < 20 mg/dL is dilute = or > 20 mg/dL is normal Current Interpretive Data was last revised on 2017. Urine 12/29/2024 12:4 6 AM CDT 12/29/2024 12:50 AM CDT Narrative [facility] - 12/29/2024 1:14 AM CDT Drug of Abuse screening is performed by immunoassay for medical purposes only. This is not to be used for Pain Management purposes. If Detected, confirmation testing will be performed for Amphetamines, Cocaine, Fentanyl, Methadone, Opiates, Oxycodone or Phencyclidine. Kennedy Amaro MD LAB URINE ORDERABLES Final Result Performing Organization Address [facility] de Phone Number [facility] [address] [place] [address] * eGFR (12/29/2024 12:46 AM CDT) Pathologist [facility] eGFR 90 >=60 mL/min/1. 73 m2 Comment: Interpretive Data [...] interpretive data was last reviewed 2021. Blood 12/29/2024 12:4 6 AM CDT 12/29/2024 12:50 AM CDT Kennedy Amaro MD LAB BLOOD ORDERABLES Final Result Performing Organization Address [facility] Co de Phone Number [facility] [address] Department [place] [address] * (ABNORMAL) Differential, auto (12/29/2024 12:46 AM CDT) [facility] Neutrophil abs 7.44(H) 1.50 - 6.50 K/cumm Imm gran abs 0.03 0.00 - 0.10 K/cumm [facility] Lymphocyte abs 2.59 0.80 - 3.30 K/cumm [facility] Monocyte abs 0.45 0.20 - 0.80 K/cumm [facility] Eosinophil abs 0.04 0.00 - 0.50 K/cumm [facility] Basophil abs 0.11(H) 0.00 - 0.10 K/cumm [facility] Neutrophil pct 69.8 % [facility] Comment: Interpretive Data Percent cell count reference ranges are not reported, since discordance with absolute values may lead to misinterpretation of CBC data. Current Interpretive Data was last revised on 2017. Imm gran pct 0.3 % [facility] Comment: Interpretive Data Percent cell count reference ranges are not reported, since discordance with absolute values may lead to misinterpretation of CBC data. Current Interpretive Data was last revised on 2017. Lymphocyte pct 24.3 % [facility] Comment: Interpretive Data Percent cell count reference ranges are not reported, since discordance with absolute values may lead to misinterpretation of CBC data. Current Interpretive Data was last revised on 2017. Monocyte pct 4.2 % [facility] Comment: Interpretive Data Percent cell count reference ranges are not reported, since discordance with absolute values may lead to misinterpretation of CBC data. Current Interpretive Data was last revised on 2017. Eosinophil pct 0.4 % [facility] Comment: Interpretive Data Percent cell count reference ranges are not reported, since discordance with absolute values may lead to misinterpretation of CBC data. Current Interpretive Data was last revised on 2017. Basophil pct 1.0 % [facility] Comment: Interpretive Data Percent cell count reference ranges are not reported, since discordance with absolute values may lead to misinterpretation of CBC data. Current Interpretive Data was last revised on 2017. Blood 12/29/2024 12:4 6 AM CDT 12/29/2024 12:50 AM CDT Kennedy Amaro MD LAB BLOOD ORDERABLES Final Result [facility] [address] [facility] [place] [address] * (ABNORMAL) Urinalysis reflex to microscopic and culture Urine (12/29/2024 12:46 AM CDT) Color, ur Yellow Yellow Clarity, ur Cloudy(A) Clear [facility] Specific gravity, ur 1.026 1.003 - 1.030 [facility] pH, urine 5.5 [facility] Comment: Interpretive Data U rine pH is affected by diet, medications, systemic acid-base disturbances, and renal tubular function. pH may affect urinary stone formation. For example, urine pH below 6.0 may help reduce the tendency for calcium phosphate stones and pH greater than 6.0 may reduce the tendency for uric acid stone formation. Source: [facility] Current Interpretive Data was last revised on 2017 Protein, ur ql 1+(A) Negative [facility] Glucose, ur ql Negative Negative [facility] Ketones, ur Trace Negative [facility] Bilirubin, ur Negative Negative [facility] Blood, ur Negative Negative [facility] Urobilinogen, ur <2.0 <2.0 mg/dL [facility] Nitrite, ur Negative Negative [facility] Leukocyte esterase, ur Negative Negative [facility] UA reflex comment Reflex to microscopic UA will be performed. [facility] Urine 12/29/2024 12:4 6 AM CDT 12/29/2024 12:50 AM CDT Kennedy Amaro MD LAB MICROBIOLOGY - [facility] ORDERABLES Final Result [place] [id number] [facility] [place] [address] * (ABNORMAL) CBC with auto differential (12/29/2024 12:46 AM CDT) WBC 10.66(H) 3.80 - 9.90 K/cumm Hgb 13.8 13.0 - 17.5 g/dL [facility] Hct 41.1 38.9 - 50.3 % [facility] Plt 374 150 - 400 K/cumm [facility] MPV 8.9(L) 9.1 - 12.3 fL [facility] RBC 4.82 4.30 - 5.80 M/cumm [facility] MCV 85.3 81.3 - 96.4 fL [facility] MCH 28.6 27.1 - 33.3 pg [facility] MCHC 33.6 32.3 - 35.7 g/dL [facility] RDW CV 14.8 11.1 - 14.9 % [facility] RDW SD 46.0 35.7 - 48.1 fL [facility] NRBC abs 0.00 0.00 - 0.01 K/cumm [facility] Blood 12/29/2024 12:4 6 AM CDT 12/29/2024 12:50 AM CDT Kennedy Amaro MD LAB BLOOD ORDERABLES Final Result Performing Organization Address [facility] Co de Phone Number [address] [place] [address] * (ABNORMAL) Urinalysis, microscopic only (12/29/2024 12:46 AM CDT) WBC, ur 0-5 0 - 5 /HPF RBC, ur 0-2 0 - 2 /HPF [facility] Epithelial cells, squamous, ur 1-5 0 - 5 /HPF [facility] Bacteria, ur Trace(A) [facility] Mucous, ur Present(A) [facility] Hyaline casts, ur 21-50(A) 0 - 10 /LPF [facility] Culture Reflex Comment Reflex conditions for urine culture (WBC >10) not met. [facility] Urine 12/29/2024 12:4 6 AM CDT 12/29/2024 12:50 AM CDT Kennedy Amaro MD LAB URINE ORDERABLES Final Result Performing Organization Address [facility] Co de Phone Number [address] [place], [place] [id number] * Phosphorus (12/29/2024 12:46 AM CDT) Phosphorus, pl 4.1 2.3 - 4.5 mg/dL Blood 12/29/2024 12:4 6 AM CDT 12/29/2024 12:50 AM CDT Barb Jaffe MD LAB BLOOD ORDERABLES Maisha l Result Performing Organization Address [facility] Co de Phone Number [address] [place] [address] * Magnesium (12/29/2024 12:46 AM CDT) Magnesium 1.8 1.4 - 2.5 mg/dL Blood 12/29/2024 12:4 6 AM CDT 12/29/2024 12:50 AM CDT Barb Jaffe MD LAB BLOOD ORDERABLES Maisha l Result Performing Organization Address [facility] Co de Phone Number [address] [address] * Lipase (12/29/2024 12:46 AM CDT) Lipase 11 10 - 99 Units/L Blood 12/29/2024 12:4 6 AM CDT 12/29/2024 12:50 AM CDT Result [facility] Barb Jaffe MD LAB BLOOD ORDERABLES Maisha l Result Performing Organization Address [facility] de Phone Number [address] [place] [address] * (ABNORMAL) Ethanol (12/29/2024 12:46 AM CDT) Ethanol 303(H) <=10 mg/dL Comment: Interpretive Data Legal limit of intoxication > or = 80 mg/dL Levels > or = 400 mg/dL are potentially TOXIC. Current interpretive data was last revised on 2018. Blood 12/29/2024 12:4 6 AM CDT 12/29/2024 12:50 AM CDT Kennedy Amaro MD LAB BLOOD ORDERABLES Final Result [facility] [address] [place] [address] * (ABNORMAL) Comprehensive metabolic panel (12/29/2024 12:46 AM CDT) Sodium 141 135 - 145 mmol/L Potassium, pl 3.9 3.3 - 4.9 mmol/L [facility] Chloride 102 97 - 110 mmol/L [facility] CO2 21(L) 22 - 32 mmol/L [facility] Anion gap 18(H) 2 - 15 mmol/L [facility] BUN 20 6 - 25 mg/dL [facility] Creatinine 0.98 0.80 - 1.30 mg/dL [facility] Glucose 146 70 - 199 mg/dL [facility] Comment: Interpretive Data Fasting glucose >/= [...] 2022. Calcium 9.1 8.5 - 10.3 mg/dL [facility] Bilirubin, total 0.2 0.1 - 1.2 mg/dL [facility] Protein, pl 7.7 6.5 - 8.5 g/dL [facility] Albumin 4.8 3.5 - 5.0 g/dL [facility] Alk phos 103 40 - 130 Units/L [facility] ALT 12 7 - 55 Units/L [facility] AST 23 10 - 50 Units/L [facility] Blood 12/29/2024 12:4 6 AM CDT 12/29/2024 12:50 AM CDT Kennedy Amaro MD LAB BLOOD ORDERABLES Final Result [facility] [address] [place] [address] * eGFR (12/17/2024 6:32 AM CDT) [facility] eGFR 73 >=60 mL/min/1. 73 m2 Comment: Interpretive Data [...] interpretive data was last reviewed 2021. Blood 12/17/2024 6:32 AM CDT 12/17/2024 6:42 AM CDT Herb Huffman DO LAB BLOOD ORDERABLES Fi nal Result [facility] [address] [place] [address] * Differential, auto (12/17/2024 6:32 AM CDT) [facility] Neutrophil abs 4.06 1.50 - 6.50 K/cumm Imm gran abs 0.02 0.00 - 0.10 K/cumm CR[facility] [facility] Lymphocyte abs 1.58 0.80 - 3.30 K/cumm [facility] Monocyte abs 0.63 0.20 - 0.80 K/cumm [facility] Eosinophil abs 0.20 0.00 - 0.50 K/cumm [facility] Basophil abs 0.05 0.00 - 0.10 K/cumm [facility] Neutrophil pct 62.0 % [facility] Comment: Interpretive Data Percent cell count reference ranges are not reported, since discordance with absolute values may lead to misinterpretation of CBC data. Current Interpretive Data was last revised on 2017. Imm gran pct 0.3 % [facility] Comment: Interpretive Data Percent cell count reference ranges are not reported, since discordance with absolute values may lead to misinterpretation of CBC data. Current Interpretive Data was last revised on 2017. Lymphocyte pct 24.2 % [facility] Comment: Interpretive Data Percent cell count reference ranges are not reported, since discordance with absolute values may lead to misinterpretation of CBC data. Current Interpretive Data was last revised on 2017. Monocyte pct 9.6 % [facility] Comment: Interpretive Data Percent cell count reference ranges are not reported, since discordance with absolute values may lead to misinterpretation of CBC data. Current Interpretive Data was last revised on 2017. Eosinophil pct 3.1 % [facility] Comment: Interpretive Data Percent cell count reference ranges are not reported, since discordance with absolute values may lead to misinterpretation of CBC data. Current Interpretive Data was last revised on 2017. Basophil pct 0.8 % [facility] Comment: Interpretive Data Percent cell count reference ranges are not reported, since discordance with absolute values may lead to misinterpretation of CBC data. Current Interpretive Data was last revised on 2017. Blood 12/17/2024 6:32 AM CDT 12/17/2024 6:42 AM CDT Herb Huffman DO LAB BLOOD ORDERABLES Fi nal Result [facility] [address] [facility] [place] [address] * (ABNORMAL) CBC with auto differential (12/17/2024 6:32 AM CDT) WBC 6.54 3.80 - 9.90 K/cumm Hgb 10.8(L) 13.0 - 17.5 g/dL [facility] Hct 33.5(L) 38.9 - 50.3 % [facility] Plt 258 150 - 400 K/cumm [facility] MPV 9.4 9.1 - 12.3 fL [facility] RBC 3.66(L) 4.30 - 5.80 M/cumm [facility] MCV 91.5 81.3 - 96.4 fL [facility] MCH 29.5 27.1 - 33.3 pg [facility] MCHC 32.2(L) 32.3 - 35.7 g/dL [facility] RDW CV 15.3(H) 11.1 - 14.9 % [facility] RDW SD 51.2(H) 35.7 - 48.1 fL [facility] NRBC abs 0.00 0.00 - 0.01 K/cumm [facility] Blood 12/17/2024 6:32 AM CDT 12/17/2024 6:42 AM CDT Herb Huffman LAB BLOOD ORDERABLES Fi nal Result Performing Organization Address [facility] de Phone Number [address] [place] [address] * Magnesium (12/17/2024 6:32 AM CDT) [facility] Magnesium 2.0 1.4 - 2.5 mg/dL Blood 12/17/2024 6:32 AM CDT 12/17/2024 6:42 AM CDT Herb Aba [employer] LAB BLOOD ORDERABLES Fi nal Result Performing Organization Address [facility] de Phone Number [address] [place] [address] * (ABNORMAL) Comprehensive metabolic panel (12/17/2024 6:32 AM CDT) [facility] Sodium 139 135 - 145 mmol/L Potassium, pl 4.6 3.3 - 4.9 mmol/L [facility] Chloride 106 97 - 110 mmol/L [facility] CO2 23 22 - 32 mmol/L [facility] Anion gap 10 2 - 15 mmol/L [facility] BUN 10 6 - 25 mg/dL [facility] Creatinine 1.16 0.80 - 1.30 mg/dL [facility] Glucose 101 70 - 199 mg/dL [facility] Comment: Interpretive Data Fasting glucose >/= [...] 2022. Calcium 9.3 8.5 - 10.3 mg/dL [facility] Bilirubin, total 0.2 0.1 - 1.2 mg/dL [facility] Protein, pl 5.9(L) 6.5 - 8.5 g/dL [facility] Albumin 3.7 3.5 - 5.0 g/dL [facility] Alk phos 72 40 - 130 Units/L [facility] ALT 9 7 - 55 Units/L [facility] AST 18 10 - 50 Units/L [facility] Blood 12/17/2024 6:32 AM CDT 12/17/2024 6:42 AM CDT Herb Huffman DO LAB BLOOD ORDERABLES Fi nal Result [facility] [address] [facility] of [facility] [place], [place] [id number] * eGFR (12/16/2024 4:56 AM CDT) eGFR 89 >=60 mL/min/1. 73 m2 Comment: Interpretive Data [...] interpretive data was last reviewed 2021. Blood 12/16/2024 4:56 AM CDT 12/16/2024 5:26 AM CDT Herb Huffman DO LAB BLOOD ORDERABLES Fi nal Result [place] [id number] [facility] [place] [address] * Differential, auto (12/16/2024 4:56 AM CDT) Pathologist [facility] Neutrophil abs 2.62 1.50 - 6.50 K/cumm Imm gran abs 0.02 0.00 - 0.10 K/cumm [facility] Lymphocyte abs 1.69 0.80 - 3.30 K/cumm [facility] Monocyte abs 0.57 0.20 - 0.80 K/cumm [facility] Eosinophil abs 0.21 0.00 - 0.50 K/cumm [facility] Basophil abs 0.07 0.00 - 0.10 K/cumm [facility] Neutrophil pct 50.5 % [facility] Comment: Interpretive Data Percent cell count reference ranges are not reported, since discordance with absolute values may lead to misinterpretation of CBC data. Current Interpretive Data was last revised on 2017. Imm gran pct 0.4 % [facility] Comment: Interpretive Data Percent cell count reference ranges are not reported, since discordance with absolute values may lead to misinterpretation of CBC data. Current Interpretive Data was last revised on 2017. Lymphocyte pct 32.6 % [facility] Comment: Interpretive Data Percent cell count reference ranges are not reported, since discordance with absolute values may lead to misinterpretation of CBC data. Current Interpretive Data was last revised on 2017. Monocyte pct 11.0 % [facility] Comment: Interpretive Data Percent cell count reference ranges are not reported, since discordance with absolute values may lead to misinterpretation of CBC data. Current Interpretive Data was last revised on 2017. Eosinophil pct 4.1 % [facility] Comment: Interpretive Data Percent cell count reference ranges are not reported, since discordance with absolute values may lead to misinterpretation of CBC data. Current Interpretive Data was last revised on 2017. Basophil pct 1.4 % [facility] Comment: Interpretive Data Percent cell count reference ranges are not reported, since discordance with absolute values may lead to misinterpretation of CBC data. Current Interpretive Data was last revised on 2017. Blood 12/16/2024 4:56 AM CDT 12/16/2024 5:26 AM CDT Herb Huffman DO LAB BLOOD ORDERABLES Fi nal Result [facility] [address] [facility] [place] [address] * (ABNORMAL) CBC with auto differential (12/16/2024 4:56 AM CDT) WBC 5.18 3.80 - 9.90 K/cumm Hgb 10.8(L) 13.0 - 17.5 g/dL [facility] Hct 33.8(L) 38.9 - 50.3 % [facility] Plt 288 150 - 400 K/cumm [facility] MPV 9.4 9.1 - 12.3 fL [facility] RBC 3.65(L) 4.30 - 5.80 M/cumm [facility] MCV 92.6 81.3 - 96.4 fL [facility] MCH 29.6 27.1 - 33.3 pg [facility] MCHC 32.0(L) 32.3 - 35.7 g/dL [facility] RDW CV 15.3(H) 11.1 - 14.9 % [facility] RDW SD 51.8(H) 35.7 - 48.1 fL [facility] NRBC abs 0.00 0.00 - 0.01 K/cumm [facility] Blood 12/16/2024 4:56 AM CDT 12/16/2024 5:26 AM CDT Herb Aba Huffman DO LAB BLOOD ORDERABLES Fi nal Result Performing Organization Address [facility] de Phone Number [address] [place] [address] * Magnesium (12/16/2024 4:56 AM CDT) [facility] Magnesium 1.9 1.4 - 2.5 mg/dL Blood 12/16/2024 4:56 AM CDT 12/16/2024 5:26 AM CDT Herb Aba Huffman DO LAB BLOOD ORDERABLES Fi nal Result Performing Organization Address [facility] de Phone Number [address] [address] * (ABNORMAL) Comprehensive metabolic panel (12/16/2024 4:56 AM CDT) Pathologist [facility] Sodium 138 135 - 145 mmol/L Potassium, pl 4.2 3.3 - 4.9 mmol/L [facility] Chloride 105 97 - 110 mmol/L [facility] CO2 23 22 - 32 mmol/L [facility] Anion gap 10 2 - 15 mmol/L [facility] BUN 8 6 - 25 mg/dL [facility] Creatinine 0.99 0.80 - 1.30 mg/dL [facility] Glucose 123 70 - 199 mg/dL [facility] Comment: Interpretive Data Fasting glucose >/= [...] interpretive data was last revised 2022. Calcium 9.2 8.5 - 10.3 mg/dL [facility] Bilirubin, total 0.2 0.1 - 1.2 mg/dL [facility] Protein, pl 5.8(L) 6.5 - 8.5 g/dL [facility] Albumin 3.6 3.5 - 5.0 g/dL [facility] Alk phos 69 40 - 130 Units/L [facility] ALT 9 7 - 55 Units/L [facility] AST 18 10 - 50 Units/L [facility] Blood 12/16/2024 4:56 AM CDT 12/16/2024 5:26 AM CDT Herb Huffman DO LAB BLOOD ORDERABLES Fi nal Result [facility] [address] [facility] [place] [address] * eGFR (12/15/2024 4:26 AM CDT) eGFR >90 >=60 mL/min/1. 73 [...] interpretive data was last reviewed 2021. Blood 12/15/2024 4:26 AM CDT 12/15/2024 4:48 AM CDT us Herb Huffman DO LAB BLOOD ORDERABLES Fi nal Result [facility] [address] [facility] [place] [address] * Differential, auto (12/15/2024 4:26 AM CDT) Pathologist [facility] Neutrophil abs 2.44 1.50 - 6.50 K/cumm Imm gran abs 0.03 0.00 - 0.10 K/cumm [facility] Lymphocyte abs 1.99 0.80 - 3.30 K/cumm [facility] Monocyte abs 0.48 0.20 - 0.80 K/cumm [facility] Eosinophil abs 0.19 0.00 - 0.50 K/cumm [facility] Basophil abs 0.07 0.00 - 0.10 K/cumm [facility] Neutrophil pct 46.9 % [facility] Comment: Interpretive Data Percent cell count reference ranges are not reported, since discordance with absolute values may lead to misinterpretation of CBC data. Current Interpretive Data was last revised on 2017. Imm gran pct 0.6 % [facility] Comment: Interpretive Data Percent cell count reference ranges are not reported, since discordance with absolute values may lead to misinterpretation of CBC data. Current Interpretive Data was last revised on 2017. Lymphocyte pct 38.3 % [facility] Comment: Interpretive Data Percent cell count reference ranges are not reported, since discordance with absolute values may lead to misinterpretation of CBC data. Current Interpretive Data was last revised on 2017. Monocyte pct 9.2 % [facility] Comment: Interpretive Data Percent cell count reference ranges are not reported, since discordance with absolute values may lead to misinterpretation of CBC data. Current Interpretive Data was last revised on 2017. Eosinophil pct 3.7 % [facility] Comment: Interpretive Data Percent cell count reference ranges are not reported, since discordance with absolute values may lead to misinterpretation of CBC data. Current Interpretive Data was last revised on 2017. Basophil pct 1.3 % [facility] Comment: Interpretive Data Percent cell count reference ranges are not reported, since discordance with absolute values may lead to misinterpretation of CBC data. Current Interpretive Data was last revised on 2017. Blood 12/15/2024 4:26 AM CDT 12/15/2024 4:48 AM CDT Herb Huffman DO LAB BLOOD ORDERABLES Fi nal Result Performing Organization Address [facility] Co de Phone Number [facility] [address] [place] [address] * (ABNORMAL) CBC with auto differential (12/15/2024 4:26 AM CDT) Pathologist [facility] WBC 5.20 3.80 - 9.90 K/cumm Hgb 10.5(L) 13.0 - 17.5 g/dL [facility] Hct 32.9(L) 38.9 - 50.3 % [facility] Plt 338 150 - 400 K/cumm [facility] MPV 9.2 9.1 - 12.3 fL [facility] RBC 3.58(L) 4.30 - 5.80 M/cumm [facility] MCV 91.9 81.3 - 96.4 fL [facility] MCH 29.3 27.1 - 33.3 pg [facility] MCHC 31.9(L) 32.3 - 35.7 g/dL [facility] RDW CV 15.2(H) 11.1 - 14.9 % [facility] RDW SD 51.6(H) 35.7 - 48.1 fL [facility] NRBC abs 0.00 0.00 - 0.01 K/cumm [facility] Blood 12/15/2024 4:26 AM CDT 12/15/2024 4:48 AM CDT Herb Huffman DO LAB BLOOD ORDERABLES Fi nal Result Performing Organization Address [facility]/ZIP Co de Phone Number [address] [place] [address] * Magnesium (12/15/2024 4:26 AM CDT) Pathologist [facility] Magnesium 2.1 1.4 - 2.5 mg/dL Blood 12/15/2024 4:26 AM CDT 12/15/2024 4:48 AM CDT Herb Huffman DO LAB BLOOD ORDERABLES Fi nal Result [facility] [address] [facility] [place] [address] * (ABNORMAL) Comprehensive metabolic panel (12/15/2024 4:26 AM CDT) [facility] Sodium 136 135 - 145 mmol/L Potassium, pl 4.5 3.3 - 4.9 mmol/L [facility] Chloride 104 97 - 110 mmol/L [facility] CO2 25 22 - 32 mmol/L [facility] Anion gap 7 2 - 15 mmol/L [facility] BUN 6 6 - 25 mg/dL [facility] Creatinine 0.88 0.80 - 1.30 mg/dL [facility] Glucose 99 70 - 199 mg/dL [facility] Comment: Interpretive Data Fasting glucose >/= [...] 2022. Calcium 9.0 8.5 - 10.3 mg/dL [facility] Bilirubin, total 0.2 0.1 - 1.2 mg/dL [facility] Protein, pl 5.8(L) 6.5 - 8.5 g/dL [facility] Albumin 3.8 3.5 - 5.0 g/dL [facility] Alk phos 79 40 - 130 Units/L [facility] ALT 9 7 - 55 Units/L [facility] AST 16 10 - 50 Units/L [facility] Blood 12/15/2024 4:26 AM CDT 12/15/2024 4:48 AM CDT Herb Aba Mendesapurayil DO LAB BLOOD ORDERABLES Fi nal Result Performing Organization Address City/[facility]/ZIP Co de Phone Number [address] [address] * eGFR (12/14/2024 5:06 AM CDT) eGFR >90 >=60 mL/min/1. 73 [...] interpretive data was last reviewed 2021. Blood 12/14/2024 5:06 AM CDT 12/14/2024 5:37 AM CDT Herb Grossmanurayil DO LAB BLOOD ORDERABLES Fi nal Result Performing Organization Address City/[facility]/ZIP Co de Phone Number [address] [place] [address] * Differential, auto (12/14/2024 5:06 AM CDT) Pathologist [facility] Neutrophil abs 3.55 1.50 - 6.50 K/cumm Imm gran abs 0.02 0.00 - 0.10 K/cumm [facility] Lymphocyte abs 1.92 0.80 - 3.30 K/cumm [facility] Monocyte abs 0.69 0.20 - 0.80 K/cumm [facility] Eosinophil abs 0.16 0.00 - 0.50 K/cumm [facility] Basophil abs 0.10 0.00 - 0.10 K/cumm [facility] Neutrophil pct 55.1 % [facility] Comment: Interpretive Data Percent cell count reference ranges are not reported, since discordance with absolute values may lead to misinterpretation of CBC data. Current Interpretive Data was last revised on 2017. Imm gran pct 0.3 % [facility] Comment: Interpretive Data Percent cell count reference ranges are not reported, since discordance with absolute values may lead to misinterpretation of CBC data. Current Interpretive Data was last revised on 2017. Lymphocyte pct 29.8 % [facility] Comment: Interpretive Data Percent cell count reference ranges are not reported, since discordance with absolute values may lead to misinterpretation of CBC data. Current Interpretive Data was last revised on 2017. Monocyte pct 10.7 % [facility] Comment: Interpretive Data Percent cell count reference ranges are not reported, since discordance with absolute values may lead to misinterpretation of CBC data. Current Interpretive Data was last revised on 2017. Eosinophil pct 2.5 % [facility] Comment: Interpretive Data Percent cell count reference ranges are not reported, since discordance with absolute values may lead to misinterpretation of CBC data. Current Interpretive Data was last revised on 2017. Basophil pct 1.6 % [facility] Comment: Interpretive Data Percent cell count reference ranges are not reported, since discordance with absolute values may lead to misinterpretation of CBC data. Current Interpretive Data was last revised on 2017. Blood 12/14/2024 5:06 AM CDT 12/14/2024 5:37 AM CDT us Herb Huffman DO LAB BLOOD ORDERABLES Fi nal Result [facility] [address] [place] [id number] * (ABNORMAL) CBC with auto differential (12/14/2024 5:06 AM CDT) [facility] WBC 6.44 3.80 - 9.90 K/cumm Hgb 11.2(L) 13.0 - 17.5 g/dL [facility] Hct 35.2(L) 38.9 - 50.3 % [facility] Plt 415(H) 150 - 400 K/cumm [facility] MPV 8.9(L) 9.1 - 12.3 fL [facility] RBC 3.87(L) 4.30 - 5.80 M/cumm [facility] MCV 91.0 81.3 - 96.4 fL [facility] MCH 28.9 27.1 - 33.3 pg [facility] MCHC 31.8(L) 32.3 - 35.7 g/dL [facility] RDW CV 15.4(H) 11.1 - 14.9 % [facility] RDW SD 50.5(H) 35.7 - 48.1 fL [facility] NRBC abs 0.00 0.00 - 0.01 K/cumm [facility] Blood 12/14/2024 5:06 AM CDT 12/14/2024 5:37 AM CDT us Herb Huffman DO LAB BLOOD ORDERABLES Fi nal Result Performing Organization Address [facility] Co de Phone Number [address] [address] * Magnesium (12/14/2024 5:06 AM CDT) [facility] Magnesium 1.9 1.4 - 2.5 mg/dL Blood 12/14/2024 5:06 AM CDT 12/14/2024 5:37 AM CDT Herb Huffman DO LAB BLOOD ORDERABLES Fi nal Result Performing Organization Address City/[facility] Co de Phone Number [address] [place] [address] * (ABNORMAL) Lipase (12/14/2024 5:06 AM CDT) [facility] Lipase 9(L) 10 - 99 Units/L Blood 12/14/2024 5:06 AM CDT 12/14/2024 5:37 AM CDT Herb Huffman DO LAB BLOOD ORDERABLES nal Result [address] [address] * (ABNORMAL) Comprehensive metabolic panel (12/14/2024 5:06 AM CDT) [facility] Sodium 138 135 - 145 mmol/L Potassium, pl 4.1 3.3 - 4.9 mmol/L [facility] Chloride 104 97 - 110 mmol/L [facility] CO2 24 22 - 32 mmol/L [facility] Anion gap 10 2 - 15 mmol/L [facility] BUN 5(L) 6 - 25 mg/dL [facility] Creatinine 0.92 0.80 - 1.30 mg/dL [facility] Glucose 103 70 - 199 mg/dL [facility] Comment: Interpretive Data Fasting glucose >/= [...] 2022. Calcium 9.1 8.5 - 10.3 mg/dL [facility] Bilirubin, total 0.2 0.1 - 1.2 mg/dL [facility] Protein, pl 6.1(L) 6.5 - 8.5 g/dL [facility] Albumin 3.7 3.5 - 5.0 g/dL [facility] Alk phos 84 40 - 130 Units/L [facility] ALT 8 7 - 55 Units/L [facility] AST 14 10 - 50 Units/L [facility] Blood 12/14/2024 5:06 AM CDT 12/14/2024 5:37 AM CDT Herb Aba Mendesapurayil DO LAB BLOOD ORDERABLES Fi nal Result Performing Organization Address City/[facility] Co de Phone Number [facility] [address] [place] [address] * eGFR (12/13/2024 6:05 AM CDT) eGFR >90 >=60 mL/min/1. 73 [...] interpretive data was last reviewed 2021. Blood 12/13/2024 6:05 AM CDT 12/13/2024 6:32 AM CDT Herb Aba Mendesapurayil DO LAB BLOOD ORDERABLES Fi nal Result Performing Organization Address City/[facility] Co de Phone Number [facility] [place] [address] * Differential, auto (12/13/2024 6:05 AM CDT) Pathologist [facility] Neutrophil abs 2.44 1.50 - 6.50 K/cumm Imm gran abs 0.01 0.00 - 0.10 K/cumm [facility] Lymphocyte abs 1.75 0.80 - 3.30 K/cumm [facility] Monocyte abs 0.54 0.20 - 0.80 K/cumm [facility] Eosinophil abs 0.15 0.00 - 0.50 K/cumm [facility] Basophil abs 0.08 0.00 - 0.10 K/cumm [facility] Neutrophil pct 49.1 % [facility] Comment: Interpretive Data Percent cell count reference ranges are not reported, since discordance with absolute values may lead to misinterpretation of CBC data. Current Interpretive Data was last revised on 2017. Imm gran pct 0.2 % [facility] Comment: Interpretive Data Percent cell count reference ranges are not reported, since discordance with absolute values may lead to misinterpretation of CBC data. Current Interpretive Data was last revised on 2017. Lymphocyte pct 35.2 % [facility] Comment: Interpretive Data Percent cell count reference ranges are not reported, since discordance with absolute values may lead to misinterpretation of CBC data. Current Interpretive Data was last revised on 2017. Monocyte pct 10.9 % [facility] Comment: Interpretive Data Percent cell count reference ranges are not reported, since discordance with absolute values may lead to misinterpretation of CBC data. Current Interpretive Data was last revised on 2017. Eosinophil pct 3.0 % [facility] Comment: Interpretive Data Percent cell count reference ranges are not reported, since discordance with absolute values may lead to misinterpretation of CBC data. Current Interpretive Data was last revised on 2017. Basophil pct 1.6 % [facility] Comment: Interpretive Data Percent cell count reference ranges are not reported, since discordance with absolute values may lead to misinterpretation of CBC data. Current Interpretive Data was last revised on 2017. Blood 12/13/2024 6:05 AM CDT 12/13/2024 6:32 AM CDT Jada Sosa NP LAB BLOOD ORDERABLES Final Result [address] [place] [address] * (ABNORMAL) CBC with auto differential (12/13/2024 6:05 AM CDT) Pathologist [facility] WBC 4.97 3.80 - 9.90 K/cumm Hgb 11.3(L) 13.0 - 17.5 g/dL [facility] Hct 35.3(L) 38.9 - 50.3 % [facility] Plt 434(H) 150 - 400 K/cumm [facility] MPV 8.8(L) 9.1 - 12.3 fL [facility] RBC 3.87(L) 4.30 - 5.80 M/cumm [facility] MCV 91.2 81.3 - 96.4 fL [facility] MCH 29.2 27.1 - 33.3 pg [facility] MCHC 32.0(L) 32.3 - 35.7 g/dL [facility] RDW CV 15.3(H) 11.1 - 14.9 % [facility] RDW SD 50.6(H) 35.7 - 48.1 fL [facility] NRBC abs 0.00 0.00 - 0.01 K/cumm [facility] Blood 12/13/2024 6:05 AM CDT 12/13/2024 6:32 AM CDT Jada Sosa FIELD OPERATOR LAB BLOOD ORDERABLES Final Result Performing Organization Address [facility] Co de Phone Number [address] [place] [address] * Magnesium (12/13/2024 6:05 AM CDT) [facility] Magnesium 2.0 1.4 - 2.5 mg/dL Blood 12/13/2024 6:05 AM CDT 12/13/2024 6:32 AM CDT Herb Huffman DO LAB BLOOD ORDERABLES Fi nal Result Performing Organization Address [facility]/State/ZIP Co de Phone Number [facility] [place] [address] * (ABNORMAL) Comprehensive metabolic panel (12/13/2024 6:05 AM CDT) Sodium 139 135 - 145 mmol/L Potassium, pl 4.2 3.3 - 4.9 mmol/L [facility] Chloride 107 97 - 110 mmol/L [facility] CO2 24 22 - 32 mmol/L [facility] Anion gap 8 2 - 15 mmol/L [facility] BUN 5(L) 6 - 25 mg/dL [facility] Creatinine 0.91 0.80 - 1.30 mg/dL [facility] Glucose 102 70 - 199 mg/dL [facility] Comment: Interpretive Data Fasting glucose >/= [...] 2022. Calcium 8.9 8.5 - 10.3 mg/dL [facility] Bilirubin, total 0.2 0.1 - 1.2 mg/dL [facility] Protein, pl 5.8(L) 6.5 - 8.5 g/dL [facility] Albumin 3.5 3.5 - 5.0 g/dL [facility] Alk phos 86 40 - 130 Units/L [facility] ALT 8 7 - 55 Units/L [facility] AST 15 10 - 50 Units/L [facility] Blood 12/13/2024 6:05 AM CDT 12/13/2024 6:32 AM CDT Herb Huffman DO LAB BLOOD ORDERABLES Fi nal Result [facility] [place] [address] * (ABNORMAL) Drugs of Abuse Screen, Urine without Confirmation (12/12/2024 9:35 AM CDT) [facility] Amphetamine, ur Not Detected CutOff 500ng/mL Comment: Interpretive Data - Amphetamines: Samples containing greater than 500 ng/mL d-methamphetamine or other cross-reacting amphetamine compounds are reported as positive. Amphetamine immunoassays are subject to significant false positive rates due to cross-reactivity of non-amphetamine drugs. Confirmatory testing required for definitive results. Current Interpretive Data was last reviewed 2022. Barbiturates, ur Not Detected CutOff 200ng/mL [facility] Comment: Interpretive Data - Barbiturates: Samples containing greater than 200 ng/mL secobarbital or other cross-reacting barbiturate compounds are reported as positive. False positive and false negative results are possible. Confirmatory testing required for definitive results. Current Interpretive Data was last reviewed 2022. Benzodiazepines, ur Screen Positive, presumptive (A) CutOff 100ng/mL [facility] Comment: Interpretive Data - Benzodiazepines: Samples containing greater than 100 ng/mL nordiazepam or other cross-reacting compounds are reported as positive. False positive and false negative results are possible. Confirmatory testing required for definitive results. Current Interpretive Data was last reviewed 2022. Cannabinoids, ur Screen Positive, presumptive (A) CutOff 50 ng/mL [facility] Comment: Interpretive Data - Cannabinoids: Samples containing greater than 50 ng/mL delta-9 THC -COOH or other cross- reacting compounds are reported as positive. False positive and false negative results are possible. Confirmatory testing required for definitive results. Current Interpretive Data was last reviewed 2022. Cocaine, ur Not Detected CutOff 150ng/mL [facility] Comment: Interpretive Data - Cocaine: Samples containing greater than 150 ng/mL benzoylecgonine or other cross- reacting compounds are reported as positive. False positive and false negative results are possible. Confirmatory testing required for definitive results. Current Interpretive Data was last reviewed 2022. Fentanyl, Ur Not Detected CutOff 5 ng/mL [facility] Comment: Interpretive Data - Fentanyl: Samples containing greater than 5 ng/mL norfentanyl, fentanyl, or other cross-reacting fentanyl compounds are reported as positive. False positive and false negative results are possible. Confirmatory testing required for definitive results. Current Interpretive Data was last reviewed 2023. Methadone, ur Not Detected CutOff 300ng/mL [facility] Comment: Interpretive Data - Methadone: Samples containing greater than 300 ng/mL d,l-methadone or other cross-reacting compounds are reported as positive. False positive and false negative results are possible. Confirmatory testing required for definitive results. Current Interpretive Data was last reviewed 2022. Opiates, ur Screen Positive, presumptive (A) CutOff 300ng/mL [facility] Comment: Interpretive Data - Opiates: Samples containing greater than 300 ng/mL morphine or other cross-reacting compounds are reported as positive. False positive and false negative results are possible. Confirmatory testing required for definitive results. Current Interpretive Data was last reviewed 2022. Oxycodone, ur Not Detected CutOff 100ng/mL [facility] Comment: Interpretive Data - Oxycodone: Samples containing [...] Data was last reviewed 2022. Urine Creatinine 25 mg/dL [facility] Comment: Interpretive Data Urine Creatinine: < 10 mg/dL is extremely dilute = or > 10 but < 20 mg/dL is dilute = or > 20 mg/dL is normal Current Interpretive Data was last revised on 2017. Urine 12/12/2024 9:35 AM CDT 12/12/2024 9:38 AM CDT Narrative [facility] - 12/12/2024 10:39 AM CDT Drug of Abuse screening is performed by immunoassay for medical purposes only. This is not to be used for Pain Management purposes. Jada Sosa NP LAB URINE ORDERABLES Final Result [facility] [address] [place] [address] * eGFR (12/12/2024 4:37 AM CDT) [facility] eGFR >90 >=60 mL/min/1. 73 m2 [...] interpretive data was last reviewed 2021. Blood 12/12/2024 4:37 AM CDT 12/12/2024 5:24 AM CDT Herb Huffman DO LAB BLOOD ORDERABLES Fi nal Result Performing Organization Address City/[facility]/ZIP Co de Phone Number [facility] [address] [place] [address] * Differential, auto (12/12/2024 4:37 AM CDT) [facility] Neutrophil abs 2.24 1.50 - 6.50 K/cumm Imm gran abs 0.02 0.00 - 0.10 K/cumm [facility] Lymphocyte abs 1.65 0.80 - 3.30 K/cumm [facility] Monocyte abs 0.55 0.20 - 0.80 K/cumm [facility] Eosinophil abs 0.13 0.00 - 0.50 K/cumm [facility] Basophil abs 0.07 0.00 - 0.10 K/cumm [facility] Neutrophil pct 48.1 % [facility] Comment: Interpretive Data Percent cell count reference ranges are not reported, since discordance with absolute values may lead to misinterpretation of CBC data. Current Interpretive Data was last revised on 2017. Imm gran pct 0.4 % [facility] Comment: Interpretive Data Percent cell count reference ranges are not reported, since discordance with absolute values may lead to misinterpretation of CBC data. Current Interpretive Data was last revised on 2017. Lymphocyte pct 35.4 % [facility] Comment: Interpretive Data Percent cell count reference ranges are not reported, since discordance with absolute values may lead to misinterpretation of CBC data. Current Interpretive Data was last revised on 2017. Monocyte pct 11.8 % [facility] Comment: Interpretive Data Percent cell count reference ranges are not reported, since discordance with absolute values may lead to misinterpretation of CBC data. Current Interpretive Data was last revised on 2017. Eosinophil pct 2.8 % [facility] Comment: Interpretive Data Percent cell count reference ranges are not reported, since discordance with absolute values may lead to misinterpretation of CBC data. Current Interpretive Data was last revised on 2017. Basophil pct 1.5 % [facility] Comment: Interpretive Data Percent cell count reference ranges are not reported, since discordance with absolute values may lead to misinterpretation of CBC data. Current Interpretive Data was last revised on 2017. Blood 12/12/2024 4:37 AM CDT 12/12/2024 5:24 AM CDT Jada Sosa NP LAB BLOOD ORDERABLES Final Result [facility] [address] [facility] Department [place] [address] * (ABNORMAL) CBC with auto differential (12/12/2024 4:37 AM CDT) WBC 4.66 3.80 - 9.90 K/cumm Hgb 10.4(L) 13.0 - 17.5 g/dL [facility] Hct 32.5(L) 38.9 - 50.3 % [facility] Plt 481(H) 150 - 400 K/cumm [facility] MPV 8.7(L) 9.1 - 12.3 fL [facility] RBC 3.56(L) 4.30 - 5.80 M/cumm [facility] MCV 91.3 81.3 - 96.4 fL [facility] MCH 29.2 27.1 - 33.3 pg [facility] MCHC 32.0(L) 32.3 - 35.7 g/dL [facility] RDW CV 15.5(H) 11.1 - 14.9 % [facility] RDW SD 51.7(H) 35.7 - 48.1 fL [facility] NRBC abs 0.00 0.00 - 0.01 K/cumm [facility] Blood 12/12/2024 4:3 7 AM CDT 12/12/2024 5:24 AM CDT Jada Sosa FIELD OPERATOR LAB BLOOD ORDERABLES Final Result Performing Organization Address [facility] Co de Phone Number [address] [place], [place] [id number] * Magnesium (12/12/2024 4:37 AM CDT) [facility] Magnesium 1.9 1.4 - 2.5 mg/dL Blood 12/12/2024 4:37 AM CDT 12/12/2024 5:24 AM CDT Herb Huffman DO LAB BLOOD ORDERABLES Fi nal Result Performing Organization Address City/[facility]/ZIP Co de Phone Number [address] [facility] [place], [place] [id number] * (ABNORMAL) Comprehensive metabolic panel (12/12/2024 4:37 AM CDT) [facility] Sodium 139 135 - 145 mmol/L Potassium, pl 3.9 3.3 - 4.9 mmol/L [facility] Chloride 109 97 - 110 mmol/L [facility] CO2 23 22 - 32 mmol/L [facility] Anion gap 7 2 - 15 mmol/L [facility] BUN 5(L) 6 - 25 mg/dL [facility] Creatinine 0.88 0.80 - 1.30 mg/dL [facility] Glucose 107 70 - 199 mg/dL [facility] Comment: Interpretive Data Fasting glucose >/= [...] interpretive data was last revised 2022. Calcium 8.6 8.5 - 10.3 mg/dL [facility] Bilirubin, total 0.2 0.1 - 1.2 mg/dL [facility] Protein, pl 5.4(L) 6.5 - 8.5 g/dL [facility] Albumin 3.3(L) 3.5 - 5.0 g/dL [facility] Alk phos 76 40 - 130 Units/L [facility] ALT 8 7 - 55 Units/L [facility] AST 15 10 - 50 Units/L [facility] Blood 12/12/2024 4:37 AM CDT 12/12/2024 5:24 AM CDT Herb Huffman DO LAB BLOOD ORDERABLES Fi nal Result [facility] [address] [facility] Department [place] [address] * eGFR (12/11/2024 5:24 AM CDT) eGFR >90 >=60 mL/min/1. 73 [...] interpretive data was last reviewed 2021. Blood 12/11/2024 5:24 AM CDT 12/11/2024 6:02 AM CDT Jada Sosa NP LAB BLOOD ORDERABLES Final Result [facility] [address] [facility] Department [place] [address] * Differential, auto (12/11/2024 5:24 AM CDT) Pathologist [facility] Neutrophil abs 1.95 1.50 - 6.50 K/cumm Imm gran abs 0.03 0.00 - 0.10 K/cumm [facility] Lymphocyte abs 1.88 0.80 - 3.30 K/cumm [facility] Monocyte abs 0.47 0.20 - 0.80 K/cumm [facility] Eosinophil abs 0.16 0.00 - 0.50 K/cumm [facility] Basophil abs 0.08 0.00 - 0.10 K/cumm [facility] Neutrophil pct 42.6 % [facility] Comment: Interpretive Data Percent cell count reference ranges are not reported, since discordance with absolute values may lead to misinterpretation of CBC data. Current Interpretive Data was last revised on 2017. Imm gran pct 0.7 % [facility] Comment: Interpretive Data Percent cell count reference ranges are not reported, since discordance with absolute values may lead to misinterpretation of CBC data. Current Interpretive Data was last revised on 2017. Lymphocyte pct 41.1 % [facility] Comment: Interpretive Data Percent cell count reference ranges are not reported, since discordance with absolute values may lead to misinterpretation of CBC data. Current Interpretive Data was last revised on 2017. Monocyte pct 10.3 % [facility] Comment: Interpretive Data Percent cell count reference ranges are not reported, since discordance with absolute values may lead to misinterpretation of CBC data. Current Interpretive Data was last revised on 2017. Eosinophil pct 3.5 % [facility] Comment: Interpretive Data Percent cell count reference ranges are not reported, since discordance with absolute values may lead to misinterpretation of CBC data. Current Interpretive Data was last revised on 2017. Basophil pct 1.8 % [facility] Comment: Interpretive Data Percent cell count reference ranges are not reported, since discordance with absolute values may lead to misinterpretation of CBC data. Current Interpretive Data was last revised on 2017. Blood 12/11/2024 5:24 AM CDT 12/11/2024 6:02 AM CDT Jada Sosa FIELD OPERATOR LAB BLOOD ORDERABLES Final Result [facility] [address] [facility] Department [place] [address] * (ABNORMAL) CBC with auto differential (12/11/2024 5:24 AM CDT) WBC 4.57 3.80 - 9.90 K/cumm Hgb 11.1(L) 13.0 - 17.5 g/dL [facility] Hct 34.9(L) 38.9 - 50.3 % [facility] Plt 520(H) 150 - 400 K/cumm [facility] MPV 8.5(L) 9.1 - 12.3 fL [facility] RBC 3.82(L) 4.30 - 5.80 M/cumm [facility] MCV 91.4 81.3 - 96.4 fL [facility] MCH 29.1 27.1 - 33.3 pg [facility] MCHC 31.8(L) 32.3 - 35.7 g/dL [facility] RDW CV 15.9(H) 11.1 - 14.9 % [facility] RDW SD 52.4(H) 35.7 - 48.1 fL [facility] NRBC abs 0.00 0.00 - 0.01 K/cumm [facility] Blood 12/11/2024 5:24 AM CDT 12/11/2024 6:02 AM CDT us Jada Sosa FIELD OPERATOR LAB BLOOD ORDERABLES Final Result [facility] [address] [facility] Department [place] [address] * Lipid panel (12/11/2024 5:24 AM CDT) Cholesterol 146 30 - 199 mg/dL Comment: Interpretive Data [...] Data was last revised on 2018. Triglycerides 134 <=149 mg/dL [facility] Comment: Interpretive Data Ages < or = [...] Data was last revised on 2018. HDL 49 >=40 mg/dL [facility] Comment: Interpretive Data Ages < or = [...] was last revised on 2018. LDL, calculated 73 <=129 mg/dL [facility] Comment: Interpretive Data Ages < or = [...] was last revised on 2024. Non-HDL Cholesterol 97 mg/dL [facility] Comment: Interpretive Data Ages < or = [...] revised on 2018. Chol/HDL ratio 3 [facility] Blood 12/11/2024 5:24 AM CDT 12/11/2024 6:02 AM CDT us Melyssa Anderson MD LAB BLOOD ORDERABLES Final Result [facility] [address] [place] [address] [place] [address] * (ABNORMAL) Basic metabolic panel (12/11/2024 5:24 AM CDT) [facility] Sodium 140 135 - 145 mmol/L Potassium, pl 3.6 3.3 - 4.9 mmol/L [facility] Chloride 109 97 - 110 mmol/L [facility] CO2 20(L) 22 - 32 mmol/L [facility] Anion gap 11 2 - 15 mmol/L [facility] BUN 11 6 - 25 mg/dL [facility] Creatinine 0.95 0.80 - 1.30 mg/dL [facility] Glucose 79 70 - 199 mg/dL [facility] Comment: Interpretive Data Fasting glucose >/= [...] interpretive data was last revised 2022. Calcium 8.8 8.5 - 10.3 mg/dL [facility] Blood 12/11/2024 5:24 AM CDT 12/11/2024 6:02 AM CDT us Jada Sosa NP LAB BLOOD ORDERABLES Final Result [facility] [address] [place] [address] Department [place] [address] * (ABNORMAL) Sepsis Lactate w/ Reflex (12/10/2024 2:17 PM CDT) [facility] Sepsis Lactate 0.6(L) 0.7 - 2.0 mmol/L Blood 12/10/2024 2:17 PM CDT 12/10/2024 2:23 PM CDT Thania ROCA LAB BLOOD ORDERABLES Final Resul t [facility] [address] [facility] [place] [address] * Blood culture Blood Peripheral (12/10/2024 11:22 AM CDT) Report Final Report: No growth Comment:Testing performed by : [facility], [address] [place]., [address] Blood (Peripheral) 12/10/2024 11:22 AM CDT 12/10/2024 1:40 PM CDT Narrative [facility] - 12/14/2024 4:00 PM CDT From a different site than #1. Draw Blood cultures before administration of Antibiotics Collection->Peripheral Received only aerobic blood culture bottle 1. Blood cultures are incubated for 4 [...] performance characteristics have been verified by the [facility] Microbiology Laboratory. For questions about this culture, contact the Microbiology Laboratory at [phone]. Interpretive data was last revised on 24. Thania Fifi ROCA LAB MICROBIOLOGY - GENERAL ORDER DELIO Final Result Performing Organization Address [facility]/ZIP Co de Phone Number [facility] [address] [place] [address] * Blood culture Blood Peripheral (12/10/2024 11:01 AM CDT) Report Final Report: No growth Comment:Testing performed by : [facility], [address] [place]., [address] Blood (Peripheral) 12/10/2024 11:01 AM CDT 12/10/2024 1:40 PM CDT Narrative [facility] - 12/14/2024 4:00 PM CDT Draw Blood cultures before administration of Antibiotics Collection->Peripheral 1. Blood cultures are incubated for [...] performance characteristics have been verified by the [facility] Microbiology Laboratory. For questions about this culture, contact the Microbiology Laboratory at [phone]. Interpretive data was last revised on 24. Thania Fifi [facility] LAB MICROBIOLOGY - GENERAL ORDER DELIO Final Result Performing Organization Address City/[facility]/ZIP Co de Phone Number [facility] [place] [address] * XR Knee Right 1 or 2 Views (12/10/2024 10:43 AM CDT) Anatomical Region Laterality Modality Lower Extremities, Knee Right Computed Radiography 12/10/2024 10:4 8 AM CDT Narrative 12/10/2024 10:49 AM CDT EXAM DESCRIPTION: XR KNEE LEFT 1 OR 2 VIEWS; XR KNEE RIGHT 1 OR 2 VIEWS REASON FOR STUDY: accidental fall ETOH use, fall, abrasions to right knee. TECHNIQUE: Frontal and lateral radiographic view(s) of the bilateral knees . COMPARISON: None FINDINGS: There is no definite evidence of acute displaced fracture or dislocation involving the left knee. There are degenerative changes left knee with joint space narrowing and mild spurring. There is no significant joint effusion. There is prepatellar soft tissue swelling, which is likely posttraumatic. There is no definite evidence of acute displaced fracture or dislocation involving the right knee. There are degenerative changes of the left knee with joint space narrowing, mild spurring, and minimal sclerosis. There is no significant joint effusion. There is mild prepatellar soft tissue swelling, which is likely posttraumatic. IMPRESSION: 1. Degenerative changes of the bilateral knees without definite evidence of acute displaced fracture or dislocation. 2. Bilateral prepatellar soft tissue swelling, which is likely posttraumatic. THIS IS AN ELECTRONICALLY VERIFIED FINAL REPORT 12/10/2024 10:49 AM - Electronically signed by Servando Rachel D.O. PS T: Report ID: [id number] Reading Location: [id number] Procedure Note Servando Rachel, - 12/10/2024 EXAM DESCRIPTION: XR KNEE LEFT 1 OR 2 VIEWS; XR KNEE RIGHT 1 OR 2 VIEWS REASON FOR STUDY: accidental fall ETOH use, fall, abrasions to right knee. TECHNIQUE: Frontal and lateral radiographic view(s) of the bilateralknees . COMPARISON: None FINDINGS: There is no definite evidence of acute displaced fracture or dislocation involving the left knee. There are degenerative changes leftknee with joint space narrowing and mild spurring. There is no significantjoint effusion. There is prepatellar soft tissue swelling, which is likely posttraumatic. There is no definite evidence of acute displaced fracture or dislocation involving the right knee. There are degenerative changes of the left knee with joint space narrowing, mild spurring, and minimal sclerosis. Thereis no significant joint effusion. There is mild prepatellar soft tissueswelling, which is likely posttraumatic. IMPRESSION: 1. Degenerative changes of the bilateral knees without definite evidenceof acute displaced fracture or dislocation. 2. Bilateral prepatellar soft tissue swelling, which is likelyposttraumatic. THIS IS AN ELECTRONICALLY VERIFIED FINAL REPORT 12/10/2024 10:49 AM - Electronically signed by Servando ALBRIGHT T: Report ID: [id number] Reading Location: [id number] Thania ROCA IMG XR PROCEDURES Final Result * XR Knee Left 1 or 2 Views (12/10/2024 10:43 AM CDT) Anatomical Region Laterality Modality Lower Extremities, Knee Left Computed Radiography 12/10/2024 10:4 8 AM CDT Narrative 12/10/2024 10:49 AM CDT EXAM DESCRIPTION: XR KNEE LEFT 1 OR 2 VIEWS; XR KNEE RIGHT 1 OR 2 VIEWS REASON FOR STUDY: accidental fall ETOH use, fall, abrasions to right knee. TECHNIQUE: Frontal and lateral radiographic view(s) of the bilateral knees . COMPARISON: None FINDINGS: There is no definite evidence of acute displaced fracture or dislocation involving the left knee. There are degenerative changes left knee with joint space narrowing and mild spurring. There is no significant joint effusion. There is prepatellar soft tissue swelling, which is likely posttraumatic. There is no definite evidence of acute displaced fracture or dislocation involving the right knee. There are degenerative changes of the left knee with joint space narrowing, mild spurring, and minimal sclerosis. There is no significant joint effusion. There is mild prepatellar soft tissue swelling, which is likely posttraumatic. IMPRESSION: 1. Degenerative changes of the bilateral knees without definite evidence of acute displaced fracture or dislocation. 2. Bilateral prepatellar soft tissue swelling, which is likely posttraumatic. THIS IS AN ELECTRONICALLY VERIFIED FINAL REPORT 12/10/2024 10:49 AM - Electronically signed by Servando Rachel D.O. PS T: Report ID: [id number] Reading Location: [id number] Procedure Note Virginie Servando Reynolds, DO - 12/10/2024 EXAM DESCRIPTION: XR KNEE LEFT 1 OR 2 VIEWS; XR KNEE RIGHT 1 OR 2 VIEWS REASON FOR STUDY: accidental fall ETOH use, fall, abrasions to right knee. TECHNIQUE: Frontal and lateral radiographic view(s) of the bilateralknees . COMPARISON: None FINDINGS: There is no definite evidence of acute displaced fracture or dislocation involving the left knee. There are degenerative changes leftknee with joint space narrowing and mild spurring. There is no significantjoint effusion. There is prepatellar soft tissue swelling, which is likely posttraumatic. There is no definite evidence of acute displaced fracture or dislocation involving the right knee. There are degenerative changes of the left knee with joint space narrowing, mild spurring, and minimal sclerosis. Thereis no significant joint effusion. There is mild prepatellar soft tissueswelling, which is likely posttraumatic. IMPRESSION: 1. Degenerative changes of the bilateral knees without definite evidenceof acute displaced fracture or dislocation. 2. Bilateral prepatellar soft tissue swelling, which is likelyposttraumatic. THIS IS AN ELECTRONICALLY VERIFIED FINAL REPORT 12/10/2024 10:49 AM - Electronically signed by Servando Rachel D.O. PS T: Report ID: [id number] Reading Location: [id number] Thania ROCA IMG XR PROCEDURES Final Result * (ABNORMAL) Sepsis Lactate w/ Reflex (12/10/2024 10:11 AM CDT) Sepsis Lactate 2.4(H) 0.7 - 2.0 mmol/L Blood 12/10/2024 10:1 1 AM CDT 12/10/2024 10:17 AM CDT us Thania ROCA LAB BLOOD ORDERABLES Final Resul t [facility] [address] [place] [address] Department [place] [address] * CT Abdomen Pelvis W Contrast (12/10/2024 8:35 AM CDT) Anatomical Region Laterality Modality Body N/A Computed Tomogra phy 12/10/2024 8:42 AM CDT Narrative 12/10/2024 9:10 AM CDT EXAM DESCRIPTION: CT ABDOMEN PELVIS W CONTRAST REASON FOR STUDY: Abdominal pain, acute, nonlocalized abd pain. Hx pancreatitis. Pt states to upper abd pain with diarrhea that started 3 days ago. States it feels like pancreatitis. Hx: HLD, HTN, Pancreatitis Surg Hx: Hernia Repair, Appendectomy TECHNIQUE: CT scan of the abdomen and pelvis performed with intravenous and without oral contrast using helical scanning technique with dynamic intravenous contrast injection. Reconstructed coronal and sagittal MPR images reviewed. All images stored on PACS. Automated exposure control was used as a dose optimization technique for this examination. CONTRAST TYPE/DOSE: 100mL of IOVERSOL 350 MG IODINE/ML INTRAVENOUS SYRINGE injected via intravenous COMPARISON: CT abdomen and pelvis dated 11/28/2024 and 09/13/2024. FINDINGS: LOWER CHEST: No significant abnormality. LIVER: No surface nodularity is identified. The liver enhances homogeneously. No focal lesion is identified. Portal vein findings described below. GALLBLADDER: No cholelithiasis identified. The gallbladder is nondistended. No evidence of acute cholecystitis. Markedly prominent collateral vessels surrounding the gallbladder. BILE DUCTS: Mild intrahepatic biliary dilation is more pronounced in the left lobe, grossly similar to prior exams. Underlying etiology may be due to narrowing of the hepatic duct from chronic pancreatitis. SPLEEN: Normal size. No focal lesion. Splenic vein findings described below. PANCREAS: The pancreatic tail is absent. The pancreatic body is mildly edematous but decreased relative to 11/28/2024. Mild peripancreatic fat stranding along the pancreatic body appears decreased. There is again dilation of the main pancreatic duct within the neck/proximal body region measuring up to 8 mm in maximum diameter (series 2, image 44). The duct severely tapers within the pancreatic head near the ampulla and this is likely sequela of chronic pancreatitis. No discrete peripancreatic collection is identified. Redemonstrated pancreatic calcifications within the uncinate process from sequela of chronic pancreatitis. Vascular findings as sequela of chronic pancreatitis are described below. ADRENALS: Mild nodular thickening of the left adrenal. KIDNEYS/URINARY TRACT: The kidneys are symmetric in size. No suspicious cystic or solid mass within either kidney. No hydronephrosis or hydroureter. Mild diffuse wall thickening of the urinary bladder is most likely due to underdistention.. No renal calculi identified. GI: No significant hiatal hernia is identified. Stomach is mildly distended with ingested contents. The appearance of mild gastric wall thickening may be artifactual due to incomplete distention or represent gastritis in the appropriate clinical setting. This is more pronounced in the fundus and body. Mild wall thickening of the pylorus and proximal duodenum is similar to decreased from prior exam and likely sequela of chronic pancreatitis. No evidence of small-bowel obstruction. Appendix is surgically absent. There is a normal colonic stool burden. No significant colonic diverticulosis is identified. PERITONEUM: There is no free intraperitoneal air. No free fluid. Scattered mesenteric nodes are mildly prominent, slightly improved from prior examination. RETROPERITONEUM: No lymphadenopathy by CT criteria. REPRODUCTIVE: The prostate gland is grossly unremarkable. VASCULATURE: The abdominal aorta is normal in caliber. 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 There are extensive portal vein collateral vessels. There is severe narrowing of the portal, SMV and splenic vein at the confluence (series 4, image 36). Extensive perigastric collateral vessels. Extensive mesenteric collateral vessels are noted. Evaluation of the SMA branches (to exclude pseudoaneurysm) is significantly limited on a non-angiographic exam. MUSCULOSKELETAL: No acute osseous abnormality. Chronic right pars interarticularis defect at L5. Severe L5-S1 facet arthropathy. OTHER: Status post bilateral inguinal hernia repair. Minimal fat containing right inguinal hernia. IMPRESSION: 1. Redemonstrated findings of chronic pancreatitis with superimposed recent pancreatitis as described above. There is decreased peripancreatic inflammatory changes compared to 11/28/2024. No CT evidence of worsening pancreatitis. 2. Mild gastric wall thickening may be artifactual due to incomplete distention or represent mild gastritis in the appropriate clinical setting. 3. Grossly unchanged narrowing of the portal confluence, splenic vein and superior mesenteric vein. There is unchanged ddwsfhao-av-ospazo stenosis of the portal vein at the aileen hepatis. Extensive collateral vessels are noted. 4. Grossly unchanged dilation of the pancreatic duct within the neck and proximal body with decompression distally. Grossly unchanged mild intrahepatic biliary dilation. These findings are likely due to biliary strictures from chronic pancreatitis. THIS IS AN ELECTRONICALLY VERIFIED FINAL REPORT 12/10/2024 9:10 AM - Electronically signed by Ravinder Harris M.D. MM T: Report ID: [id number] Reading Location: [place] [address] Procedure Note Ravinder Harris MD - 12/10/2024 EXAM DESCRIPTION: CT ABDOMEN PELVIS W CONTRAST REASON FOR STUDY: Abdominal pain, acute, nonlocalized abd pain. Hx pancreatitis. Pt states to upper abd pain with diarrhea that started 3 days ago. States it feels like pancreatitis. Hx: HLD, HTN, Pancreatitis Surg Hx: Hernia Repair, Appendectomy TECHNIQUE: CT scan of the abdomen and pelvis performed with intravenousand without oral contrast using helical scanning technique with dynamic intravenous contrast injection. Reconstructed coronal and sagittal MPRimages reviewed. All images stored on PACS. Automated exposure control was usedas a dose optimization technique for this examination. CONTRAST TYPE/DOSE: 100mL of IOVERSOL 350 MG IODINE/ML INTRAVENOUSSYRINGE injected via intravenous COMPARISON: CT abdomen and pelvis dated 11/28/2024 and 09/13/2024. FINDINGS: LOWER CHEST: No significant abnormality. LIVER: No surface nodularity is identified. The liver enhanceshomogeneously. No focal lesion is identified. Portal vein findings described below. GALLBLADDER: No cholelithiasis identified. The gallbladder isnondistended. No evidence of acute cholecystitis. Markedly prominent collateral vessels surrounding the gallbladder. BILE DUCTS: Mild intrahepatic biliary dilation is more pronounced in theleft lobe, grossly similar to prior exams. Underlying etiology may be due to narrowing of the hepatic duct from chronic pancreatitis. SPLEEN: Normal size. No focal lesion. Splenic vein findings describedbelow. PANCREAS: The pancreatic tail is absent. The pancreatic body is mildly edematous but decreased relative to 11/28/2024. Mild peripancreatic fat stranding along the pancreatic body appears decreased. There is again dilation of the main pancreatic duct within the neck/proximal body region measuring up to 8 mm in maximum diameter (series 2, image 44). The duct severely tapers within the pancreatic head near the ampulla and this islikely sequela of chronic pancreatitis. No discrete peripancreatic collection is identified. Redemonstrated pancreatic calcifications within the uncinate process from sequela of chronic pancreatitis. Vascular findings assequela of chronic pancreatitis are described below. ADRENALS: Mild nodular thickening of the left adrenal. KIDNEYS/URINARY TRACT: The kidneys are symmetric in size. No suspicious cystic or solid mass within either kidney. No hydronephrosis orhydroureter. Mild diffuse wall thickening of the urinary bladder is most likely due to underdistention.. No renal calculi identified. GI: No significant hiatal hernia is identified. Stomach is mildlydistended with ingested contents. The appearance of mild gastric wall thickeningmay be artifactual due to incomplete distention or represent gastritis in the appropriate clinical setting. This is more pronounced in the fundus andbody. Mild wall thickening of the pylorus and proximal duodenum is similar to decreased from prior exam and likely sequela of chronic pancreatitis. No evidence of small-bowel obstruction. Appendix is surgically absent.There is a normal colonic stool burden. No significant colonic diverticulosis is identified. PERITONEUM: There is no free intraperitoneal air. No free fluid.Scattered mesenteric nodes are mildly prominent, slightly improved from prior examination. RETROPERITONEUM: No lymphadenopathy by CT criteria. REPRODUCTIVE: The prostate gland is grossly unremarkable. VASCULATURE: The abdominal aorta is normal in caliber. 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 There are extensive portal vein collateral vessels. There is severe narrowing of the portal,SMV and splenic vein at the confluence (series 4, image 36). Extensive perigastric collateral vessels. Extensive mesenteric collateral vesselsare noted. Evaluation of the SMA branches (to exclude pseudoaneurysm) is significantly limited on a non-angiographic exam. MUSCULOSKELETAL: No acute osseous abnormality. Chronic right pars interarticularis defect at L5. Severe L5-S1 facet arthropathy. OTHER: Status post bilateral inguinal hernia repair. Minimal fatcontaining right inguinal hernia. IMPRESSION: 1. Redemonstrated findings of chronic pancreatitis with superimposedrecent pancreatitis as described above. There is decreased peripancreatic inflammatory changes compared to 11/28/2024. No CT evidence of worsening pancreatitis. 2. Mild gastric wall thickening may be artifactual due to incomplete distention or represent mild gastritis in the appropriate clinicalsetting. 3. Grossly unchanged narrowing of the portal confluence, splenic veinand superior mesenteric vein. There is unchanged [id number]-nb-ilhmgy stenosisof the portal vein at the aileen hepatis. Extensive collateral vessels arenoted. 4. Grossly unchanged dilation of the pancreatic duct within the neck and proximal body with decompression distally. Grossly unchanged mild intrahepatic biliary dilation. These findings are likely due to biliary strictures from chronic pancreatitis. THIS IS AN ELECTRONICALLY VERIFIED FINAL REPORT 12/10/2024 9:10 AM - Electronically signed by Ravinder Harris M.D. MM T: Report ID: [id number] Reading Location: [place] [address] PROCEDURES Final Result * Urinalysis reflex to microscopic and culture Urine (12/10/2024 7:28 AM CDT) Color, ur Straw Yellow Clarity, ur Clear Clear [facility] Specific gravity, ur 1.006 1.003 - 1.030 [facility] pH, urine 6.0 [facility] Comment: Interpretive Data U rine pH is affected by diet, medications, systemic acid-base disturbances, and renal tubular function. pH may affect urinary stone formation. For example, urine pH below 6.0 may help reduce the tendency for calcium phosphate stones and pH greater than 6.0 may reduce the tendency for uric acid stone formation. Source: [facility] Current Interpretive Data was last revised on 2017 Protein, ur ql Negative Negative [facility] Glucose, ur ql Negative Negative [facility] Ketones, ur Negative Negative [facility] Bilirubin, ur Negative Negative [facility] Blood, ur Negative Negative [facility] Urobilinogen, ur <2.0 <2.0 mg/dL [facility] Nitrite, ur Negative Negative [facility] Leukocyte esterase, ur Negative Negative [facility] UA reflex comment Reflex conditions for microscopic UA and culture not met. [facility] Urine 12/10/2024 7:28 AM CDT 12/10/2024 7:37 AM CDT Alexandra Tomlin MD LAB MICROBIOLOGY - GENERAL DEMARCO HWANG Final Result [facility] [address] [place] [address] * eGFR (12/10/2024 7:22 AM CDT) [facility] eGFR >90 >=60 mL/min/1. 73 m2 [...] interpretive data was last reviewed 2021. Blood 12/10/2024 7:22 AM CDT 12/10/2024 7:28 AM CDT [facility] LAB BLOOD ORDERABLES Final Resu lt Performing Organization Address [facility] Co de Phone Number [facility] [address] Department [place] [address] * (ABNORMAL) Differential, auto (12/10/2024 7:22 AM CDT) [facility] Neutrophil abs 9.80(H) 1.50 - 6.50 K/cumm Imm gran abs 0.15(H) 0.00 - 0.10 K/cumm [facility] Lymphocyte abs 2.71 0.80 - 3.30 K/cumm [facility] Monocyte abs 1.29(H) 0.20 - 0.80 K/cumm [facility] Eosinophil abs 0.13 0.00 - 0.50 K/cumm [facility] Basophil abs 0.12(H) 0.00 - 0.10 K/cumm [facility] Neutrophil pct 69.0 % [facility] Comment: Interpretive Data Percent cell count reference ranges are not reported, since discordance with absolute values may lead to misinterpretation of CBC data. Current Interpretive Data was last revised on 2017. Imm gran pct 1.1 % [facility] Comment: Interpretive Data Percent cell count reference ranges are not reported, since discordance with absolute values may lead to misinterpretation of CBC data. Current Interpretive Data was last revised on 2017. Lymphocyte pct 19.1 % [facility] Comment: Interpretive Data Percent cell count reference ranges are not reported, since discordance with absolute values may lead to misinterpretation of CBC data. Current Interpretive Data was last revised on 2017. Monocyte pct 9.1 % [facility] Comment: Interpretive Data Percent cell count reference ranges are not reported, since discordance with absolute values may lead to misinterpretation of CBC data. Current Interpretive Data was last revised on 2017. Eosinophil pct 0.9 % [facility] Comment: Interpretive Data Percent cell count reference ranges are not reported, since discordance with absolute values may lead to misinterpretation of CBC data. Current Interpretive Data was last revised on 2017. Basophil pct 0.8 % [facility] Comment: Interpretive Data Percent cell count reference ranges are not reported, since discordance with absolute values may lead to misinterpretation of CBC data. Current Interpretive Data was last revised on 2017. Blood 12/10/2024 7:22 AM CDT 12/10/2024 7:28 AM CDT [facility] LAB BLOOD ORDERABLES Final Resu lt [facility] [address] [place] [address] * (ABNORMAL) CBC with auto differential (12/10/2024 7:22 AM CDT) WBC 14.20(H) 3.80 - 9.90 K/cumm Hgb 12.6(L) 13.0 - 17.5 g/dL [facility] Hct 38.4(L) 38.9 - 50.3 % [facility] Plt 758(H) 150 - 400 K/cumm [facility] MPV 8.1(L) 9.1 - 12.3 fL [facility] RBC 4.29(L) 4.30 - 5.80 M/cumm [facility] MCV 89.5 81.3 - 96.4 fL [facility] MCH 29.4 27.1 - 33.3 pg [facility] MCHC 32.8 32.3 - 35.7 g/dL [facility] RDW CV 15.8(H) 11.1 - 14.9 % [facility] RDW SD 51.3(H) 35.7 - 48.1 fL [facility] NRBC abs 0.00 0.00 - 0.01 K/cumm [facility] Blood Venous blood specimen / Unknown 12/10/2024 7:22 AM CDT 12/10/2024 7:28 AM CDT [facility] LAB BLOOD ORDERABLES Final Resu lt Performing Organization Address [facility] Co de Phone Number [address] [place] [address] * Lipase (12/10/2024 7:22 AM CDT) Lipase 10 10 - 99 Units/L Blood Venous blood specimen / Unknown 12/10/2024 7:22 AM CDT 12/10/2024 7:28 AM CDT [facility]LOOD ORDERAB[facility] Final Resu lt Performing Organization Address [facility] Co de Phone Number [address] [place] [address] * (ABNORMAL) Ethanol (12/10/2024 7:22 AM CDT) Ethanol 147(H) <=10 mg/dL Comment: Interpretive Data Legal limit of intoxication > or = 80 mg/dL Levels > or = 400 mg/dL are potentially TOXIC. Current interpretive data was last revised on 2018. Blood 12/10/2024 7:22 AM CDT 12/10/2024 7:28 AM CDT us Thania ROCA LAB BLOOD ORDERABLES Final Resul t [facility] [address] [place] [address] * (ABNORMAL) Comprehensive metabolic panel (12/10/2024 7:22 AM CDT) Sodium 140 135 - 145 mmol/L Potassium, pl 3.7 3.3 - 4.9 mmol/L [facility] Comment:Hemolyzed; Potassium value may be falsely elevated by as much as 1.0 mmol/L. Suggest redraw and reanalysis. Chloride 107 97 - 110 mmol/L [facility] CO2 18(L) 22 - 32 mmol/L [facility] Anion gap 15 2 - 15 mmol/L [facility] BUN 11 6 - 25 mg/dL [facility] Creatinine 0.86 0.80 - 1.30 mg/dL [facility] Glucose 83 70 - 199 mg/dL [facility] Comment: Interpretive Data Fasting glucose >/= [...] interpretive data was last revised 2022. Calcium 8.8 8.5 - 10.3 mg/dL [facility] Bilirubin, total 0.2 0.1 - 1.2 mg/dL [facility] Protein, pl 6.5 6.5 - 8.5 g/dL [facility] Albumin 3.9 3.5 - 5.0 g/dL [facility] Alk phos 89 40 - 130 Units/L [facility] ALT 10 7 - 55 Units/L [facility] AST 27 10 - 50 Units/L [facility] Comment:Hemolyzed; result ma y be falsely elevated Blood 12/10/2024 7:22 AM CDT 12/10/2024 7:28 AM CDT Alexandra Tomlin MD LAB BLOOD ORDERABLES Final Resu lt Performing Organization Address [facility] Co de Phone Number [facility] [address] [place] [address] * Troponin T high-sensitivity 6-hour (11/29/2024 8:13 AM CDT) [facility] Trop T hs 11 <=22 ng/L Comment: Interpretive Data For further hscTnT resources including the diagnostic algorithm and an aid in interpretation, copy and paste this link: https://nrl.testcatalog.org/show/hsTrop Current Interpretive Data last revised 2020. Trop T hs delta See Comment ng/L [facility] Comment:Inappropriate collec tion time to report a delta. Trop T hs pct delta See Comment % [facility] Comment:Inappropriate collec tion time to report a delta. Trop T hs interp See Comment [facility] Comment:Inappropriate collec tion time to report a delta. Blood 11/29/2024 8:13 AM CDT 11/29/2024 8:26 AM CDT Victor Manuel Izquierdo MD LAB BLOOD ORDERABLE S Final Result Performing Organization Address [facility] Co de Phone Number ELE[address] [place] [address] * eGFR (11/29/2024 8:13 AM CDT) [facility] eGFR >90 >=60 mL/min/1. 73 m2 [...] interpretive data was last reviewed 2021. Blood 11/29/2024 8:13 AM CDT 11/29/2024 8:26 AM CDT Cheryl Snowden MD LAB BLOOD ORDER DELIO Final Result [facility] [address] [place] [address] * (ABNORMAL) CBC without differential (11/29/2024 8:13 AM CDT) WBC 8.04 3.80 - 9.90 K/cumm Hgb 11.3(L) 13.0 - 17.5 g/dL [facility] Hct 34.2(L) 38.9 - 50.3 % [facility] Plt 142(L) 150 - 400 K/cumm [facility] MPV 9.4 9.1 - 12.3 fL [facility] RBC 3.91(L) 4.30 - 5.80 M/cumm [facility] MCV 87.5 81.3 - 96.4 fL [facility] MCH 28.9 27.1 - 33.3 pg [facility] MCHC 33.0 32.3 - 35.7 g/dL [facility] RDW CV 14.1 11.1 - 14.9 % [facility] RDW SD 45.1 35.7 - 48.1 fL [facility] NRBC abs 0.00 0.00 - 0.01 K/cumm [facility] Blood 11/29/2024 8:13 AM CDT 11/29/2024 8:26 AM CDT Cehryl Snowden MD LAB BLOOD ORDER DELIO Final Result Performing Organization Address [facility] Co de Phone Number ELENA[address] [place] [address] * Lipase (11/29/2024 8:13 AM CDT) Pathologist [facility] Lipase 66 10 - 99 Units/L Blood 11/29/2024 8:13 AM CDT 11/29/2024 8:26 AM CDT Manuelito Mccann MD LAB BLOOD ORDERABLES F inal Result Performing Organization Address [facility] de Phone Number [address] [address] * Ethanol (11/29/2024 8:13 AM CDT) Pathologist [facility] Ethanol <10 <=10 mg/dL Comment: Interpretive Data Legal limit of intoxication > or = 80 mg/dL Levels > or = 400 mg/dL are potentially TOXIC. Current interpretive data was last revised on 2018. Blood 11/29/2024 8:13 AM CDT 11/29/2024 8:26 AM CDT Cheryl Snowden MD LAB BLOOD ORDER DELIO Final Result Performing Organization Address [facility] Co de Phone Number [address] [place] [address] * (ABNORMAL) Comprehensive metabolic panel (11/29/2024 8:13 AM CDT) Pathologist [facility] Sodium 137 135 - 145 mmol/L Potassium, pl 3.3 3.3 - 4.9 mmol/L [facility] Chloride 102 97 - 110 mmol/L [facility] CO2 22 22 - 32 mmol/L [facility] Anion gap 13 2 - 15 mmol/L [facility] BUN 12 6 - 25 mg/dL [facility] Creatinine 0.71(L) 0.80 - 1.30 mg/dL [facility] Glucose 116 70 - 199 mg/dL [facility] Comment: Interpretive Data Fasting glucose >/= [...] 2022. Calcium 9.3 8.5 - 10.3 mg/dL [facility] Bilirubin, total 0.4 0.1 - 1.2 mg/dL [facility] Protein, pl 6.8 6.5 - 8.5 g/dL [facility] Albumin 3.5 3.5 - 5.0 g/dL [facility] Alk phos 130 40 - 130 Units/L [facility] ALT 11 7 - 55 Units/L [facility] AST 19 10 - 50 Units/L [facility] Blood 11/29/2024 8:13 AM CDT 11/29/2024 8:26 AM CDT Cheryl Snowden MD LAB BLOOD ORDER DELIO Final Result [facility] [address] [place] [address] * (ABNORMAL) Drugs of Abuse Screen, Urine with Reflex Confirmation (11/29/2024 5:22 AM CDT) [facility] Amphetamine, ur Not Detected CutOff 500ng/mL Comment: Interpretive Data - Amphetamines: Samples containing greater than 500 ng/mL d-methamphetamine or other cross-reacting amphetamine compounds are reported as positive. Amphetamine immunoassays are subject to significant false positive rates due to cross-reactivity of non-amphetamine drugs. Confirmatory testing required for definitive results. Current Interpretive Data was last reviewed 2022. Barbiturates, ur Not Detected CutOff 200ng/mL [facility] Comment: Interpretive Data - Barbiturates: Samples containing greater than 200 ng/mL secobarbital or other cross-reacting barbiturate compounds are reported as positive. False positive and false negative results are possible. Confirmatory testing required for definitive results. Current Interpretive Data was last reviewed 2022. Benzodiazepines, ur Screen Positive, presumptive (A) CutOff 100ng/mL [facility] Comment: Interpretive Data - Benzodiazepines: Samples containing greater than 100 ng/mL nordiazepam or other cross-reacting compounds are reported as positive. False positive and false negative results are possible. Confirmatory testing required for definitive results. Current Interpretive Data was last reviewed 2022. Cannabinoids, ur Screen Positive, presumptive (A) CutOff 50 ng/mL [facility] Comment: Interpretive Data - Cannabinoids: Samples containing greater than 50 ng/mL delta-9 THC -COOH or other cross- reacting compounds are reported as positive. False positive and false negative results are possible. Confirmatory testing required for definitive results. Current Interpretive Data was last reviewed 2022. Cocaine, ur Not Detected CutOff 150ng/mL [facility] Comment: Interpretive Data - Cocaine: Samples containing greater than 150 ng/mL benzoylecgonine or other cross- reacting compounds are reported as positive. False positive and false negative results are possible. Confirmatory testing required for definitive results. Current Interpretive Data was last reviewed 2022. Fentanyl, Ur Not Detected CutOff 5 ng/mL [facility] Comment: Interpretive Data - Fentanyl: Samples containing greater than 5 ng/mL norfentanyl, fentanyl, or other cross-reacting fentanyl compounds are reported as positive. False positive and false negative results are possible. Confirmatory testing required for definitive results. Current Interpretive Data was last reviewed 2023. Methadone, ur Not Detected CutOff 300ng/mL [facility] Comment: Interpretive Data - Methadone: Samples containing greater than 300 ng/mL d,l-methadone or other cross-reacting compounds are reported as positive. False positive and false negative results are possible. Confirmatory testing required for definitive results. Current Interpretive Data was last reviewed 2022. Opiates, ur Screen Positive, presumptive (A) CutOff 300ng/mL [facility] Comment: Interpretive Data - Opiates: Samples containing greater than 300 ng/mL morphine or other cross-reacting compounds are reported as positive. False positive and false negative results are possible. Confirmatory testing required for definitive results. Current Interpretive Data was last reviewed 2022. Oxycodone, ur Not Detected CutOff 100ng/mL [facility] Comment: Interpretive Data - Oxycodone: Samples containing greater than 100 ng/mL oxycodone or other cross-reacting compounds are reported as positive. False positive and false negative results are possible. Confirmatory testing required for definitive results. Current Interpretive Data was last reviewed 2022. Phencyclidine, ur Not Detected CutOff 25 ng/mL [facility] Comment: Interpretive Data - Phencyclidine: Samples containing greater than 25 ng/mL phencyclidine or other cross-reacting compounds are reported as positive. False positive and false negative results are possible. Confirmatory testing required for definitive results. Current Interpretive Data was last reviewed 2022. Urine Creatinine 323 mg/dL [facility] Comment: Interpretive Data Urine Creatinine: < 10 mg/dL is extremely dilute = or > 10 but < 20 mg/dL is dilute = or > 20 mg/dL is normal Current Interpretive Data was last revised on 2017. Urine 11/29/2024 5:22 AM CDT 11/29/2024 5:34 AM CDT Narrative [facility] - 11/29/2024 6:07 AM CDT Drug of Abuse screening is performed by immunoassay for medical purposes only. This is not to be used for Pain Management purposes. If Detected, confirmation testing will be performed for Amphetamines, Cocaine, Fentanyl, Methadone, Opiates, Oxycodone or Phencyclidine. Cheryl Snowden MD LAB URINE ORDER DELIO Final Result [facility] [address] [place] [address] * (ABNORMAL) Opiates Confirmation, Urine (11/29/2024 5:22 AM CDT) Codeine Conf, Ur Does Not Confirm CutOff 50 ng/mL Comment:Testing performed by : [facility], [address] [place]., [address] 6- Acetylmorphine Conf, Ur Does Not Confirm CutOff 10 ng/mL [facility] Comment:Testing performed by : [facility], [address] [place]., [address] Hydrocodone Conf, Ur Does Not Confirm CutOff 50 ng/mL [facility] Comment:Testing performed by : [facility], [address] [place]., [address] Morphine Conf, Ur Does Not Confirm CutOff 50 ng/mL [facility] Comment:Testing performed by : [facility], [address] [place]., [address] Hydromorphone Conf, Ur Confirmed Positive(A) CutOff 50 ng/mL [facility] Comment: Interpretive Data This test detects the presence or absence of drug compounds using LC Tandem mass spectrometry and is not intended to assess compliance with prescribed medications. While this test is highly specific, false positive and false negative results may occur in very rare circumstances. Contact the laboratory for consultation, if needed. Performance characteristics were determined by the [facility] in a manner consistent with CLIA requirement and has not been cleared or approved by the U.S. Food and Drug Administration. Current interpretive data was last revised 2020. Testing performed by: [facility], [address] [place]., [address] Urine 11/29/2024 5:22 AM CDT 11/29/2024 8:48 AM CDT us Cheryl Snowden MD LAB URINE ORDER DELIO Final Result [facility] [address] Department [place] [address] * Troponin T high-sensitivity 4-hour (11/28/2024 10:27 PM CDT) Trop T hs 8 <=22 ng/L Comment: Interpretive Data For further hscTnT resources including the diagnostic algorithm and an aid in interpretation, copy and paste this link: https://nrl.testcatGiggem.org/show/hsTrop Current Interpretive Data last revised 2020. Trop T hs delta -2 ng/L [facility] Trop T hs interp Insignificant [facility] Blood 11/28/2024 10:2 7 PM CDT 11/28/2024 10:30 PM CDT Victor Manuel Izquierdo MD LAB BLOOD ORDERABLE S Final Result Performing Organization Address City/[facility] Co de Phone Number [address] [address] * (ABNORMAL) Sepsis Lactate w/ Reflex (11/28/2024 10:20 PM CDT) Sepsis Lactate 0.5(L) 0.7 - 2.0 mmol/L Blood 11/28/2024 10:2 0 PM CDT 11/28/2024 10:23 PM CDT Result [facility] Victor Manuel Izquierdo MD LAB BLOOD ORDERABLE S Final Result Performing Organization Address [facility] Co de Phone Number [address] [address] * Troponin T high-sensitivity 2-hour (11/28/2024 9:02 PM CDT) Trop T hs 8 <=22 ng/L Comment: Interpretive Data For further hscTnT resources including the diagnostic algorithm and an aid in interpretation, copy and paste this link: https://nrl.testcatGiggem.org/show/hsTrop Current Interpretive Data last revised 2020. Trop T hs delta -2 ng/L [facility] Trop T hs interp Insignificant [facility] Blood 11/28/2024 9:02 PM CDT 11/28/2024 9:32 PM CDT Victor Manuel Izquierdo MD LAB BLOOD ORDERABLE S Final Result Performing Organization Address City/[facility]/ZIP Co de Phone Number [facility] [address] [place] [address] * Lactate dehydrogenase (LD) (11/28/2024 9:02 PM CDT) Lactate dehydrogenase (LDH) 149 100 - 250 Units/L Blood 11/28/2024 9:02 PM CDT 11/28/2024 9:32 PM CDT Victor Manuel Izquierdo MD LAB BLOOD ORDERABLE S Final Result Performing Organization Address [facility] de Phone Number [facility] [place] [address] * CT Abdomen Pelvis W Contrast (11/28/2024 8:25 PM CDT) Anatomical Region Laterality Modality Body N/A Computed Tomogra phy 11/28/2024 8:32 PM CDT Narrative 11/28/2024 8:41 PM CDT EXAM DESCRIPTION: CT ABDOMEN PELVIS W CONTRAST REASON FOR STUDY: pancreatitis Hx including chronic pancreatitis, HTN, alcohol abuse, HLD, GERD, and other PMHx as below presenting to the ED w/ c/o abdominal pain. Upon evaluation, pt states he feels as though he's withdrawing from alcohol. Pt endorses diaphoresis and shakiness. Pt denies a Hx of alcohol induced seizures. Pt states his last drink was Monday morning, 2 days ago. Pt is also c/o epigastric pain that onset a couple of days ago. TECHNIQUE: CT scan of the abdomen and pelvis performed with intravenous and without oral contrast using helical scanning technique with dynamic intravenous contrast injection. Reconstructed coronal and sagittal MPR images reviewed. All images stored on PACS. Automated exposure control was used as a dose optimization technique for this examination. CONTRAST TYPE/DOSE: 100mL of IOVERSOL 350 MG IODINE/ML INTRAVENOUS SYRINGE injected via intravenous COMPARISON: 09/13/2024 FINDINGS: LOWER CHEST: Mild bibasilar atelectasis. Heart size normal. No effusion. LIVER/BILIARY: Moderate hepatic steatosis. Biliary tree normal in caliber. GALLBLADDER: Well distended. No wall thickening or pericholecystic inflammation is seen. SPLEEN: Normal. PANCREAS: Moderate inflammation around the pancreas with pancreatic ductal dilation similar to the August prior. ADRENAL GLANDS: Normal. KIDNEYS/URINARY TRACT: Unremarkable. GI: Stomach and small bowel appear normal. Colon unremarkable. Appendix not seen. OTHER ABDOMINAL/PELVIS: Major vascular structures are grossly patent and normal in caliber. Small amount of free fluid. No suspiciously enlarged lymph node. MSK: Krtq-dn-mjjbdqic disc disease and facet arthropathy. Mild hip and SI joint arthrosis. BODY WALL: Bilateral inguinal hernia repairs. IMPRESSION: Moderate peripancreatic inflammation and ductal dilation appear similar to the 09/13/2024 prior. No abscess or other complication is seen. THIS IS AN ELECTRONICALLY VERIFIED FINAL REPORT 11/28/2024 8:41 PM - Electronically signed by Davi Kurtz M.D. AR T: Report ID: [id number] Reading Location: [id number] Procedure Note Davi Kurtz MD - 11/28/2024 EXAM DESCRIPTION: CT ABDOMEN PELVIS W CONTRAST REASON FOR STUDY: pancreatitis Hx including chronic pancreatitis, HTN, alcohol abuse, HLD, GERD, andother PMHx as below presenting to the ED w/ c/o abdominal pain. Upon evaluation,pt states he feels as though he's withdrawing from alcohol. Pt endorses diaphoresis and shakiness. Pt denies a Hx of alcohol induced seizures.Pt states his last drink was Monday morning, 2 days ago. Pt is also c/o epigastric pain that onset a couple of days ago. TECHNIQUE: CT scan of the abdomen and pelvis performed with intravenousand without oral contrast using helical scanning technique with dynamic intravenous contrast injection. Reconstructed coronal and sagittal MPRimages reviewed. All images stored on PACS. Automated exposure control was usedas a dose optimization technique for this examination. CONTRAST TYPE/DOSE: 100mL of IOVERSOL 350 MG IODINE/ML INTRAVENOUSSYRINGE injected via intravenous COMPARISON: 09/13/2024 FINDINGS: LOWER CHEST: Mild bibasilar atelectasis. Heart size normal. Noeffusion. LIVER/BILIARY: Moderate hepatic steatosis. Biliary tree normal incaliber. GALLBLADDER: Well distended. No wall thickening or pericholecystic inflammation is seen. SPLEEN: Normal. PANCREAS: Moderate inflammation around the pancreas with pancreaticductal dilation similar to the August prior. ADRENAL GLANDS: Normal. KIDNEYS/URINARY TRACT: Unremarkable. GI: Stomach and small bowel appear normal. Colon unremarkable. Appendixnot seen. OTHER ABDOMINAL/PELVIS: Major vascular structures are grossly patent and normal in caliber. Small amount of free fluid. No suspiciously enlarged lymph node. MSK: Cxsj-kz-vasavvtx disc disease and facet arthropathy. Mild hip andSI joint arthrosis. BODY WALL: Bilateral inguinal hernia repairs. IMPRESSION: Moderate peripancreatic inflammation and ductal dilationappear similar to the 09/13/2024 prior. No abscess or other complication isseen. THIS IS AN ELECTRONICALLY VERIFIED FINAL REPORT 11/28/2024 8:41 PM - Electronically signed by Davi Kurtz M.D. AR T: Report ID: [id number] Reading Location: [place] [address] Victor Manuel Izquierdo MD IMG CT PROCEDURES F inal Result * (ABNORMAL) Sepsis Lactate w/ Reflex (11/28/2024 7:00 PM CDT) [facility] Sepsis Lactate 2.4(H) 0.7 - 2.0 mmol/L Blood 11/28/2024 7:00 PM CDT 11/28/2024 7:03 PM CDT Victor Manuel Izquierdo MD LAB BLOOD ORDERABLE S Final Result [facility] [address] Department [place] [address] * Troponin T high-sensitivity series (baseline, 2hr, 4hr, 6hr) (11/28/2024 6:56 PM CDT) [facility] Trop T hs 10 <=22 ng/L Comment: Interpretive Data For further hscTnT resources including the diagnostic algorithm and an aid in interpretation, copy and paste this link: https://nrl.testcatalog.org/show/hsTrop Current Interpretive Data last revised 2020. Blood 11/28/2024 6:56 PM CDT 11/28/2024 7:03 PM CDT Victor Manuel Izquierdo MD LAB BLOOD ORDERABLE S Final Result Performing Organization Address City/[facility]/ZIP Co de Phone Number [facility] [address] [place] [address] * eGFR (11/28/2024 6:56 PM CDT) Pathologist [facility] eGFR >90 >=60 mL/min/1. 73 m2 Comment: [...] interpretive data was last reviewed 2021. Blood 11/28/2024 6:56 PM CDT 11/28/2024 7:03 PM CDT Victor Manuel Izquierdo MD LAB BLOOD ORDERABLE S Final Result Performing Organization Address City/[facility]/ZIP Co de Phone Number [facility] [address] Department [place] [address] * (ABNORMAL) Differential, auto (11/28/2024 6:56 PM CDT) Pathologist [facility] Neutrophil abs 9.91(H) 1.50 - 6.50 K/cumm Imm gran abs 0.05 0.00 - 0.10 K/cumm [facility] Lymphocyte abs 0.63(L) 0.80 - 3.30 K/cumm [facility] Monocyte abs 1.19(H) 0.20 - 0.80 K/cumm [facility] Eosinophil abs 0.01 0.00 - 0.50 K/cumm [facility] Basophil abs 0.04 0.00 - 0.10 K/cumm [facility] Neutrophil pct 83.8 % [facility] Comment: Interpretive Data Percent cell count reference ranges are not reported, since discordance with absolute values may lead to misinterpretation of CBC data. Current Interpretive Data was last revised on 2017. Imm gran pct 0.4 % [facility] Comment: Interpretive Data Percent cell count reference ranges are not reported, since discordance with absolute values may lead to misinterpretation of CBC data. Current Interpretive Data was last revised on 2017. Lymphocyte pct 5.3 % [facility] Comment: Interpretive Data Percent cell count reference ranges are not reported, since discordance with absolute values may lead to misinterpretation of CBC data. Current Interpretive Data was last revised on 2017. Monocyte pct 10.1 % [facility] Comment: Interpretive Data Percent cell count reference ranges are not reported, since discordance with absolute values may lead to misinterpretation of CBC data. Current Interpretive Data was last revised on 2017. Eosinophil pct 0.1 % [facility] Comment: Interpretive Data Percent cell count reference ranges are not reported, since discordance with absolute values may lead to misinterpretation of CBC data. Current Interpretive Data was last revised on 2017. Basophil pct 0.3 % [facility] Comment: Interpretive Data Percent cell count reference ranges are not reported, since discordance with absolute values may lead to misinterpretation of CBC data. Current Interpretive Data was last revised on 2017. Blood 11/28/2024 6:56 PM CDT 11/28/2024 7:03 PM CDT Victor Manuel Izquierdo MD LAB BLOOD ORDERABLE S Final Result Performing Organization Address [facility] de Phone Number [address] [address] * (ABNORMAL) CBC with auto differential (11/28/2024 6:56 PM CDT) WBC 11.83(H) 3.80 - 9.90 K/cumm Hgb 12.9(L) 13.0 - 17.5 g/dL [facility] Hct 37.9(L) 38.9 - 50.3 % [facility] Plt 174 150 - 400 K/cumm [facility] MPV 9.8 9.1 - 12.3 fL [facility] RBC 4.38 4.30 - 5.80 M/cumm [facility] MCV 86.5 81.3 - 96.4 fL [facility] MCH 29.5 27.1 - 33.3 pg [facility] MCHC 34.0 32.3 - 35.7 g/dL [facility] RDW CV 14.1 11.1 - 14.9 % [facility] RDW SD 45.1 35.7 - 48.1 fL [facility] NRBC abs 0.00 0.00 - 0.01 K/cumm [facility] Blood Venous blood specimen / Unknown 11/28/2024 6:56 PM CDT 11/28/2024 7:03 PM CDT Victor Manuel Izquierdo MD LAB BLOOD ORDERABLE S Final Result Performing Organization Address [facility] de Phone Number [address] [address] * (ABNORMAL) Lipase (11/28/2024 6:56 PM CDT) Pathologist [facility] Lipase 163(H) 10 - 99 Units/L Blood 11/28/2024 6:56 PM CDT 11/28/2024 7:03 PM CDT Victor Manuel Izquierdo MD LAB BLOOD ORDERABLE S Final Result Performing Organization Address [facility] Co de Phone Number [facility] [address] Department [place] [address] * (ABNORMAL) Comprehensive metabolic panel (11/28/2024 6:56 PM CDT) Sodium 137 135 - 145 mmol/L Potassium, pl 3.5 3.3 - 4.9 mmol/L [facility] Chloride 98 97 - 110 mmol/L [facility] CO2 21(L) 22 - 32 mmol/L [facility] Anion gap 18(H) 2 - 15 mmol/L [facility] BUN 12 6 - 25 mg/dL [facility] Creatinine 0.76(L) 0.80 - 1.30 mg/dL [facility] Glucose 127 70 - 199 mg/dL [facility] Comment: Interpretive Data Fasting glucose >/= [...] interpretive data was last revised 2022. Calcium 9.9 8.5 - 10.3 mg/dL [facility] Bilirubin, total 0.5 0.1 - 1.2 mg/dL [facility] Protein, pl 8.1 6.5 - 8.5 g/dL [facility] Albumin 4.0 3.5 - 5.0 g/dL [facility] Alk phos 171(H) 40 - 130 Units/L [facility] ALT 16 7 - 55 Units/L [facility] AST 20 10 - 50 Units/L [facility] Blood 11/28/2024 6:56 PM CDT 11/28/2024 7:03 PM CDT us Victor Manuel Izquierdo MD LAB BLOOD ORDERABLE S Final Result Performing Organization Address City/[facility]/ZIP Co de Phone Number [facility] [address] [place] [address] * XR Chest 1 Vw Portable (If patient hemodynamically UNstable or UNable to ambulate) (11/28/2024 6:55PM CDT) Anatomical Region Laterality Modality Body, Chest N/A Computed Radiogr aphy 11/28/2024 7:15 PM CDT Narrative 11/28/2024 7:15 PM CDT EXAM DESCRIPTION: XR CHEST 1 VIEW REASON FOR STUDY: chest pain Pt bibems for complaint of chest pain, back pain, and abdominal pain. 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 Notes chest pain to lower chest area. Endorses history of Pancreatitis Attacks that felt similar. 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 States normally drinks A couple of fifths a day. Ax4. Noted tremors during triage with elevated BP and pulse. TECHNIQUE: Single radiographic view(s) of the chest. COMPARISON: 06/06/2023 FINDINGS: LUNGS: Minor chronic lung changes are noted. No consolidation, effusion or other acute process is seen. HEART/MEDIASTINUM: Cardiac silhouette normal in size. Mediastinal and hilar contours appear normal. LINES/TUBES: None. BONES: No acute osseous abnormality. IMPRESSION: No acute cardiopulmonary abnormality. THIS IS AN ELECTRONICALLY VERIFIED FINAL REPORT 11/28/2024 7:15 PM - Electronically signed by Michael Smith M.D. KH T: Report ID: [id number] Reading Location: [id number] Procedure Note Michael Smith MD - 11/28/2024 EXAM DESCRIPTION: XR CHEST 1 VIEW REASON FOR STUDY: chest pain Pt bibems for complaint of chest pain, back pain, and abdominal pain. 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 Notes chest pain to lower chest area. Endorses history of Pancreatitis Attacks that felt similar. 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 States normally drinks Acouple of fifths a day. Ax4. Noted tremors during triage with elevated BP and pulse. TECHNIQUE: Single radiographic view(s) of the chest. COMPARISON: 06/06/2023 FINDINGS: LUNGS: Minor chronic lung changes are noted. No consolidation, effusion or other acute process is seen. HEART/MEDIASTINUM: Cardiac silhouette normal in size. Mediastinal andhilar contours appear normal. LINES/TUBES: None. BONES: No acute osseous abnormality. IMPRESSION: No acute cardiopulmonary abnormality. THIS IS AN ELECTRONICALLY VERIFIED FINAL REPORT 11/28/2024 7:15 PM - Electronically signed by Michael Smith M.D. KH T: Report ID: [id number] Reading Location: [id number] Victor Manuel Izquierdo MD IMG XR PROCEDURES F inal Result * ECG 12 lead (11/28/2024 6:14 PM CDT) Ventricular Rate EKG/Min 124 BPM [facility] Atrial Rate 124 BPM [facility] MA-Interval (MSEC) 126 ms [facility] QRS-Interval (MSEC) 72 ms [facility] QT-Interval (MSEC) 322 ms [facility] QTc 462 ms [facility] P [place] 61 degrees [facility] R [place] 1 degrees [facility] T [place] 58 degrees [facility] Diagnosis Sinus tachycardia Possible Left atrial enlargement Borderline ECG When compared with ECG of 16-AUG-2024 01:04, No significant change was found Confirmed by SHRUTHI PONCE M.D. ([id number]) on 12/03/2024 6:06:17 PM [facility] 11/28/2024 6:14 PM CDT 12/03/2024 6:06 PM CDT Victor Manuel Izquierdo MD ECG ORDERABLES Fin al Result [facility] * Hepatitis C antibody Blood (08/15/2024 11:28 PM CDT) Hep C Ab Nonreactive Nonreactive Comment:Antibodies to HCV no t detected. Does NOT exclude the possibility of recent exposure to HCV. Current interpretive data was last revised on 22 Blood 08/15/2024 11:2 8 PM CDT 08/15/2024 11:33 PM CDT John De Anda MD LAB MICROBIOLOGY - GENERAL ORDERABLES Final Result [facility] [address] [facility] [place] [address] from Last 3 Months or Most Recently Relevant to Health Maintenance Insurance [facility] MEDICARE ADVANTAGE CIGNA CIGNA [facility] MEDICARE ADVANTAGE Advance Directives For more information, please contact: [phone] * Full Code (Latest Code Status on File) Date Activated Date Inactivated Comments 12/31/2024 6:18 AM 01/03/2025 11:45 PM * Full Code Date Activated Date Inactivated Comments 12/10/2024 3:31 PM 12/18/2024 6:37 PM * Full Code Date Activated Date Inactivated Comments 11/29/2024 12:19 AM 12/04/2024 4:47 PM * Full Code Date Activated Date Inactivated Comments 09/13/2024 5:18 PM 09/19/2024 4:27 PM * Full Code Date Activated Date Inactivated Comments 08/15/2024 9:08 PM 08/21/2024 8:18 PM Care Teams Dot Net Developer Relationship Specialty Start Date End Date Ronnell Escobar NP [address] [place] [address] PCP - General Nurse Practitioner 08/16/24
--- OUTSIDE RECORDS SUMMARY | 2025-01-06 17:56 | XMS_ITS | Patient Health Record ---
Author Organization [facility] As Tunepresto Address [address] [facility] [address] [place] [address] Care Team Providers Care Head Correction Officer Name Role Phone Hipolito Arevalo Unavailable [phone] Reason For Referral No Information Medications Medication SIG (Take, Route, Frequency, Duration) Notes Start Date End Date Status metroNIDAZOLE 500 MG Oral Active Pantoprazole Sodium 40 MG Oral Active Nicotine 14 MG/24HR Transdermal Active Fenofibrate 160 MG Oral A ctive chlordiazePOXIDE HCl 25 MG Oral Active Clindamycin HCl 150 MG Oral Active Lisinopril 40 MG Oral Act sarah Disulfiram 500 mg Oral Ac tive HYDROcodone-Acetaminophen 5-325 MG Oral Active Mirtazapine 15 MG Oral Ac tive Naltrexone HCl 50 MG Oral Active Plan Of Treatment No Information Insurance Providers Payer Name Payer Address Payer Phone Subscriber Number Group Number Insured Name Patient Relationship to Insured Coverage Start Date Coverage End Date [facility] [address] [place] [address] [id number] MINGO VALDES Self - patient is the insured
--- OUTSIDE RECORDS SUMMARY | 2025-01-06 17:56 | XMS_ITS | Clinical Summary ---
Author Organization [facility] Address [address] [facility] [address] [place] [address] Phone Care Team Providers Care Director Of Construction Name Role Phone Lamberto Barker Nasra RUCKER Primary Care Provider [phone] Social History Tobacco Use Types Packs/Day Years Used Date Smoking Tobacco: Never Assessed Sex and Gender Information Value Date Recorded Sex Assigned at Not on file Legal Sex Male 8:46 AM CDT Gender Identity Not on file Sexual Orientation Not on file Plan of Treatment Not on file Insurance [facility] MEDICARE C [employer] Care Teams Director Of Construction Relationship Specialty Start Date End Date Lamberto Barker DO [address] [place] [address] PCP - General Internal Medicine 09/18/19
--- OUTSIDE RECORDS SUMMARY | 2025-01-06 17:56 | XMS_ITS | Encounter Summary ---
Author Organization [facility] Healthcare Address [address] [place] [address] Care Team Providers Care Terrazzo Worker Apprentice Name Role Phone Don Walton Primary Care Provider Ronnell Escobar NP Primary Care Provider [phone] Savanah Galvez RN Unavailable [phone] Encounter Details Date Type Department Care Team (Late st Contact Info) Description 01/25/2022 Orders Only [facility] [address] [place] [id number] Jordana Chambers MD [address] [place] [id number] Social History Tobacco Use Types Packs/Day Years Used Date Smoking Tobacco: Every Day Cigarettes Smokeless Tobacco: Never Alcohol Use Standard Drinks/Week Comments Yes 0 (1 standard drink = 0.6 oz pur e alcohol) Social Connection and Isolation Panel Answer Date Recorded In a typical week, how many times do you talk on the phone with family, friends, or neighbors? More than three times a week 01/27/2022 How often do you get togethe r with friends or relatives? More than three times a week 01/27/2022 How often do you attend chur ch or latter-day services? 1 to 4 times per year 01/27/2022 Do you belong to any clubs o r organizations such as druze groups, unions, fraternal or athletic groups, or [...] place to sleep or slept in a [place] [facility] [place] (including now)? 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 difficile suspected 08/16/2024 08/16/202408/16 2:48 PM [...] documented as of this encounter Care Teams Terrazzo Worker Apprentice Relationship Specialty Start Date End Date Don Walton PA [address] [place], [place] [id number] PCP - General Physician Beater Room Helper 12/28/21 08/15/24 Ronnell Escobar NP [address] [place] [address] PCP - General Nurse Practitioner 08/16/24 Savanah Galvez, RN [address] [address] [facility] Outpatient Space Officer 08/22/24 08/25/24 documented as of this encounter
[2025-01-06 18:28] LABS: Hematocrit 36.8 % (42.0-52.0); Hemoglobin 12.0 g/dL (14.0-18.0); Immature Granulocyte Percent A 0.7 % (0-0.5); Lymphocytes Absolute Auto 2.85 K/mm3 (0.9-3.2); Mean Corpuscular HGB Conc 32.6 g/dl (32-36); Mean Corpuscular Hemoglobin 28.7 pg (26-34); Mean Corpuscular Volume 88.0 fl (80-100); Nucleated Red Blood Cells Absolute Auto 0.000 K/mm3 (0.0-0.012); Nucleated Red Blood Cells Perc 0.0 % (0.0-0.2); Platelet Count Result 473 k/mm3 (150-375); Red Blood Count 4.18 M/mm3 (4.6-6.20); White Blood Count 11.6 K/mm3 (4.5-10.0)
[2025-01-06 19:31] LABS: Alanine Aminotransferase 13 U/L (6-50); Albumin Level 4.4 g/dL (3.5-5.1); Alkaline Phosphatase 60 U/L (38-126); Anion Gap 14 mmol/L (4-12); Aspartate Amino Transferase 27 U/L (17-59); Bilirubin,Total 0.2 mg/dL (0.2-1.3); Blood Urea Nitrogen 16 mg/dL (9-20); Calcium 9.2 mg/dL (8.4-10.2); Carbon Dioxide 22 mmol/L (22-30); Chloride 107 mmol/L (98-107); Creatine Kinase 324 U/L (55-170); Estimated CRCL calculation 74 ml/min; Estimated Glomerular Filt Rate > 60; Glucose 154 mg/dL (65-110); Magnesium 1.8 mg/dL (1.6-2.3); Potassium 3.9 mmol/L (3.4-5.0); Sodium 143 mmol/L (137-145); Total Protein 7.2 g/dL (6.3-8.2)
[2025-01-07] VITALS (17 sets, daily range): BP systolic 100; BP diastolic 75; PULSE 62–76; RESP 13–30; O2SAT 97–100
[2025-01-07 02:48] LABS: Add Urine Microscopic? YES; Appearance Urine Clear (Clear); Glucose Urine UA Negative (Negative); Leukocyte Esterase Ur Negative LEU/UL (Negative); Nitrate Urine Negative (Negative); Non Pathogenic Casts 0-2; Specific Grav Ur > 1.045 (1.001-1.035)
[2025-01-07] MEDS: LACTATED RINGERS 2,000 ML 999 ML IV CONT (02:52)
--- NOTE | 2025-01-07 03:36 | PC.NURSE ---
Communicated with patient about process of discharge of a patient under the influence of ETOH and attempted to educate on alcohol blood levels and when he could be discharged. Pt then stated he was just going to leave himself. He was then educated on the process of the needs for security involvement and use of chemical restraints. Md made aware of the situation and states he did not feel a need to go communicate with the patient.
== END 2025-01-07 04:00 | disposition home or self-care (01) ==
PROVIDERS: Emergency Provider Emergency Medicine; PCP Nurse Practitioner
DX: F10.129 Alcohol abuse with intoxication, unspecified (principal); Y90.8 Blood alcohol level of 240 mg/100 ml or more; S00.83XA Contusion of other part of head, initial encounter; S50.311A Abrasion of right elbow, initial encounter; Z59.00 Homelessness unspecified; I10 Essential (primary) hypertension; K21.9 Gastro-esophageal reflux disease without esophagitis; M19.90 Unspecified osteoarthritis, unspecified site; E78.00 Pure hypercholesterolemia, unspecified; F17.210 Nicotine dependence, cigarettes, uncomplicated; Z86.711 Personal history of pulmonary embolism; Z87.11 Personal history of peptic ulcer disease; Z79.899 Other long term (current) drug therapy; W19.XXXA Unspecified fall, initial encounter
CPT/HCPCS: 36415; 70450; 71260; 72100; 72125; 73070; 73521; 74177; 80053; 81001; 82077; 82550; 83735; 85025; 96361; 96374; 99284; J2405; J7030; J7120; Q9967

== ENCOUNTER 2025-01-14 11:42 | Emergency (ER) | payer MEDICARE, SELFPAY ==
[2025-01-14] VITALS (28 sets, daily range): BP systolic 98–135; BP diastolic 62–89; PULSE 85–105; RESP 14–23; TEMP 36.8; O2SAT 93–98
--- NOTE | ~2025-01-14 | CT_ITS ---
EXAMINATION: CT brain wo con DATE: 01/14/2025 12:35 INDICATION: Altered mental status. Syncope TECHNIQUE: Computed tomography (CT) of the head was performed without intravenous contrast. The dose-length product was 605.33 mGy-cm. COMPARISON: 01/06/2025 FINDINGS: No acute intracranial hemorrhage. No mass effect. No midline shift. No hydrocephalus. No skull fracture. Visualized paranasal sinuses and mastoid air cells are clear. IMPRESSION: 1. No acute intracranial hemorrhage. No mass effect. Reviewed, dictated and finalized at location A.
--- NOTE | ~2025-01-14 | XR_ITS ---
EXAMINATION: XR chest 2V 01/14/2025 12:43 INDICATION: Altered mental status COMPARISON: 11/03/2024 FINDINGS: The lungs are clear. The cardiomediastinal silhouette is within normal limits. There are no pleural effusions. There is no pneumothorax suspected. IMPRESSION: 1: NO ACUTE CARDIOPULMONARY DISEASE. Reviewed, dictated and finalized at location A.
--- NOTE | 2025-01-14 12:21 | ECG_ITS ---
Test Date: 2025-01-14 11:48:46 Measurements Intervals [place] Rate: 98 P: 47 ME: 157 QRS: -28 QRSD: 97 T: 32 QT: 336 QTc: 429 Interpretive Statements SINUS RHYTHM BASELINE ARTIFACT- I, III, AVR, AVL, AVF NORMAL ECG Compared to ECG 11/03/2024 22:11:41 PEAKED T WAVES NO LONGER PRESENT Electronically Signed On 01-14-2025 12:45:04 CDT by Dale Santiago D.O.
--- NOTE | 2025-01-14 12:22 | ED.SYNCOPE ---
HPI - Syncope General Chief Complaint: Syncope Stated Complaint: syncope, etoh Time Seen by Provider: 01/14/25 12:00 History of Present Illness HPI narrative: This is a 59-year-old male with history of hypertension, pancreatitis, peptic ulcer disease presents to ED for possible syncope. Patient does not participate in history at this time. Per EMS report, he was found on the ground at [place] [facility]. Patient has no particular complaints at this time. Related Data Home Medications ?Medication ?Instructions ?Recorded ?Confirmed ?Last Taken ?Type jkhhpoee-xeoj-qzfow acid 400 1 tablet PO DAILY 02/03/21 08/03/24 07/31/24 History mcg-lycopene 600 mcg-ginkgo 120 mg tablet potassium gluconate 595 mg (99 mg) 99 mg PO DAILY 04/25/23 08/03/24 07/31/24 History tablet ascorbic acid (vitamin C) 500 mg 500 mg PO DAILY 08/01/24 08/03/24 07/31/24 History chewable tablet (Acerola C) biotin 5 mg capsule 5 mg PO DAILY 08/01/24 08/03/24 07/31/24 History carbamazepine 200 mg tablet 200 mg PO Q12H 08/01/24 08/03/24 07/31/24 History magnesium 250 mg tablet 500 mg PO DAILY 08/01/24 08/03/24 07/31/24 History Allergies Allergy/AdvReac Type Severity Reaction Status Date / Time amoxicillin Allergy Intermediate rash Verified 01/14/25 11:47 Penicillins Allergy Intermediate Pruritic Verified 01/14/25 11:47 rash Review of Systems Review of Systems: ROS unobtainable: Yes unobtainable due to mental status PMFSH Past Medical History Medical History Peptic ulcer Gastroesophageal reflux disease Tobacco dependence Necrotizing pancreatitis Elevated PSA Memory loss Gastritis and duodenitis Essential hypertension Alcoholism Fracture of vertebra due to osteoporosis with routine healing Generalized osteoarthritis of multiple sites Inflammatory arthritis (08/2019) Angioedema (08/2019) Acute pulmonary embolism (08/2019) Pancreatitis Hypercholesteremia Surgical History Surgical History History of appendectomy Family History Family History Mother Hypertension Sibling Patient's brother is in good health Father Family history of pancreatic cancer Social History Social History Social History: Surrogate medical decision maker: Doris Norman, ex-. Code status: Full code. Smoking packs per day: 1 Smoking cigarettes per day: 20.0 Years smoked: 35 Smoking pack-years: 35.00 Smoking status: Current every day smoker Tobacco type: cigarettes Second hand tobacco smoke exposure: No Alcohol intake: current Drinks per week: 100 Alcohol use details: SHOT Substance use: current Substance use type: marijuana Other substance usage details: MEDICAL CARD-DAILY FOR BACK PAIN Last use: Monday Do You Feel Safe in your Home?: Yes Lack of Transportation: No Lack of Food: Never True Current Housing: I Do Not Have Housing Concerned About Future Housing: YES Difficulty Paying Gas/Electric Bills: No Difficulty Paying for Meds: No Currently Unemployed: No Education: High School Diploma/GED Difficulty w/ Childcare or Family Care: No Living arrangements: with family Occupation/Education: retired Spiritual care concerns: No Exam Narrative: APPEARANCE: No acute distress, nontoxic, resting in bed EYES: EOMI HEENT: Normocephalic, atraumatic, OMM RESPIRATORY: No respiratory distress Clear to auscultation bilaterally with no rhonchi wheezing or rales. CARDIOVASCULAR: Regular rate and rhythm without murmurs rubs or gallops. ABDOMINAL: Soft, nontender, nondistended, no rebound or guarding MUSCULOSKELETAl: Moves all extremities. No clubbing, cyanosis or edema. NEURO: Awake and alert. Slurring speech. AAO x1. SKIN:: Warm, dry. No rashes lesions or abrasions PSYCHIATRIC: Normal affect/mood, Course Vital Signs Vital signs: Vital Signs Temperature 98.3 F 01/14/25 11:37 Pulse Rate 97 01/14/25 11:37 Respiratory Rate 20 01/14/25 11:37 Blood Pressure 117/82 01/14/25 11:37 Pulse Oximetry 94 01/14/25 11:37 Oxygen Delivery Room Air 01/14/25 11:37 Temperature 98.3 F 01/14/25 11:37 Pulse Rate 96 01/14/25 14:15 Respiratory Rate 16 01/14/25 14:15 Blood Pressure 116/82 01/14/25 14:15 Pulse Oximetry 95 01/14/25 14:15 Oxygen Delivery Room Air 01/14/25 11:37 MDM - Syncope MDM Narrative Medical decision making narrative: 59-year-old male presenting to the ED for altered mental status. Patient with a known history of alcohol abuse and well known to this department. Patient is clinically intoxicated at this time. He does not participate in history. No focal deficits exam. Workup reassuring. CT head negative. Did attempt to walk the patient through his ED course, but he was requiring significant assistance. Patient signed out to oncoming provider pending reevaluation. Differential Diagnosis Differential diagnosis: Likely vasovagal syncope, dehydration and other (Alcohol intoxication, drug overdose, cardiogenic syncope) Lab Data 01/14/25 12:32 01/14/25 12:32 Labs: Lab Results 01/14/25 01/14/25 Range/Units 12:32 12:32 WBC 6.6 (4.5-10.0) K/mm3 RBC 4.28 L (4.6-6.20) M/mm3 Hgb 12.4 L (14.0-18.0) g/dL Hct 38.2 L (42.0-52.0) % MCV 89.3 (80-100) fl MCH 29.0 (26-34) pg MCHC 32.5 (32-36) g/dl RDW 16.4 H (11.5-14.5) % Plt Count 435 H (150-375) k/mm3 MPV 9.0 (7.4-10.4) fl Immature Gran % (Auto) 0.8 H (0-0.5) % Neut % (Auto) 48.6 (45.5-73.1) % Lymph % (Auto) 37.7 (18.3-44.2) % Seneca % (Auto) 8.5 (2.6-8.5) % Eos % (Auto) 3.3 (0-4.4) % Baso % (Auto) 1.1 (0.2-1.2) % Lymph # (Auto) 2.48 (0.9-3.2) K/mm3 Seneca # (Auto) 0.6 (0.1-0.6) K/mm3 Eos # (Auto) 0.2 (0-0.3) K/mm3 Baso # (Auto) 0.1 (0.0-0.1) K/mm3 Abs Immat Gran (auto) 0.05 H (0.00-0.031) K/mm3 Absolute Neuts (auto) 3.2 (1.3-6.7) K/mm3 Absolute Nucleated RBC 0.000 (0.0-0.012) K/mm3 Nucleated RBC % 0.0 (0.0-0.2) % Sodium 142 (137-145) mmol/L Potassium 4.4 (3.4-5.0) mmol/L Chloride 107 (98-107) mmol/L Carbon Dioxide 22 (22-30) mmol/L Anion Gap 13 H (4-12) mmol/L BUN 13 (9-20) mg/dL Creatinine 1.05 (0.7-1.3) mg/dL Estim Creat Clear Calc 78 ml/min Estimated GFR > 60 (59 - ) Glucose 84 (65-110) mg/dL Lactic Acid 1.7 (0.7-2.0) mmol/L Calcium 9.0 (8.4-10.2) mg/dL Total Bilirubin 0.2 (0.2-1.3) mg/dL AST 24 (17-59) U/L ALT 12 (6-50) U/L Alkaline Phosphatase 66 (38-126) U/L Troponin I < 0.012 (0.000-0.034) ng/mL NT-Pro-B Natriuret Pep 60 (19.9-100) pg/mL Total Protein 7.4 (6.3-8.2) g/dL Albumin 4.5 (3.5-5.1) g/dL Lipase 312 H Cancelled (23-300) U/L ECG Data EKG #1: Attestation: I personally reviewed and interpreted this ECG as follows: ECG completion date: 01/14/25 ECG completion time: 11:48 Interpretation: Normal sinus rhythm rate of 98, left axis deviation, normal intervals, no acute ST or T-wave changes Discharge Plan Discharge Clinical Impression: Alcohol intoxication Qualifiers: Complication of substance-induced condition: uncomplicated Qualified Code(s): F10.920 - Alcohol use, unspecified with intoxication, uncomplicated Patient Disposition: Still a Patient Condition: Stable Patient Language: Greenlandic Prescriptions: No Action potassium gluconate 595 mg (99 mg) tablet 99 mg PO DAILY carbamazepine 200 mg tablet 200 mg PO Q12H Patient Comments: for 5 days starting 07/30/24 biotin 5 mg capsule 5 mg PO DAILY magnesium 250 mg tablet 500 mg PO DAILY ascorbic acid (vitamin C) [Acerola C] 500 mg tablet,chewable 500 mg PO DAILY lz-htcv-ziaid-lycopene-ginkgo 400-600-120 mcg-mcg-mg Tablet 1 tablet PO DAILY chlordiazepoxide HCl 25 mg capsule 25 mg PO Q6H Qty: 15 0RF Rx Instructions: Take 50 mg every 6 hours on the 1st day, 25 mg every 6 hours on the 2nd day, 25 mg every 12 hours on the 3rd day and 25 mg once on the 4th day pantoprazole 40 mg tablet,delayed release (DR/EC) See Rx Instructions .ROUTE .COMPLEX Qty: 90 1RF Dose Instruction: TAKE 1 TABLET BY MOUTH EVERY MORNING Rx Instructions: TAKE 1 TABLET BY MOUTH EVERY MORNING tizanidine 4 mg tablet See Rx Instructions .ROUTE .COMPLEX Qty: 60 0RF Dose Instruction: TAKE 1 TO 2 TABLETS BY MOUTH EVERY NIGHT AT BEDTIME NEEDED FOR MUSCLE SPASMS Rx Instructions: TAKE 1 TO 2 TABLETS BY MOUTH EVERY NIGHT AT BEDTIME NEEDED FOR MUSCLE SPASMS amlodipine 10 mg tablet 10 mg PO DAILY Qty: 90 1RF duloxetine [Cymbalta] 30 mg capsule,delayed release(DR/EC) 30 mg PO BID Qty: 180 1RF fenofibrate 160 mg tablet 160 mg PO DAILY Qty: 90 1RF folic acid 1 mg tablet See Rx Instructions .ROUTE .COMPLEX Qty: 90 1RF Dose Instruction: TAKE 1 TABLET BY MOUTH DAILY Rx Instructions: TAKE 1 TABLET BY MOUTH DAILY gabapentin 300 mg capsule 300 mg PO Q8H Qty: 270 1RF Creon 12,000-38,000 -60,000 unit capsule,delayed release(DR/EC) See Rx Instructions .ROUTE .COMPLEX Qty: 100 5RF Dose Instruction: TAKE 1 CAPSULE BY MOUTH THREE TIMES DAILY WITH MEALS AND/OR SNACKS Rx Instructions: TAKE 1 CAPSULE BY MOUTH THREE TIMES DAILY WITH MEALS AND/OR SNACKS losartan 25 mg tablet 25 mg PO DAILY Qty: 90 1RF meloxicam 7.5 mg tablet 7.5 mg PO BID PRN (Reason: joint pain) Qty: 60 5RF ondansetron 4 mg tablet,disintegrating 4 mg PO Q8H PRN (Reason: nausea and vomiting) Qty: 30 2RF tadalafil 20 mg tablet 5 mg PO DAILY Qty: 90 1RF trazodone 50 mg tablet 50 mg PO HS Qty: 90 1RF naltrexone 50 mg tablet 50 mg PO DAILY Qty: 30 2RF thiamine HCl (vitamin B1) 100 mg tablet 100 mg PO DAILY Qty: 90 1RF Follow-up/Referrals: Ronnell Escobar APRN [Primary Care Provider, Internal Medicine]
[2025-01-14 12:44] LABS: Hematocrit 38.2 % (42.0-52.0); Hemoglobin 12.4 g/dL (14.0-18.0); Immature Granulocyte Percent A 0.8 % (0-0.5); Lymphocytes Absolute Auto 2.48 K/mm3 (0.9-3.2); Mean Corpuscular HGB Conc 32.5 g/dl (32-36); Mean Corpuscular Hemoglobin 29.0 pg (26-34); Mean Corpuscular Volume 89.3 fl (80-100); Nucleated Red Blood Cells Absolute Auto 0.000 K/mm3 (0.0-0.012); Nucleated Red Blood Cells Perc 0.0 % (0.0-0.2); Platelet Count Result 435 k/mm3 (150-375); Red Blood Count 4.28 M/mm3 (4.6-6.20); White Blood Count 6.6 K/mm3 (4.5-10.0)
[2025-01-14 12:54] LABS: Alanine Aminotransferase 12 U/L (6-50); Albumin Level 4.5 g/dL (3.5-5.1); Alkaline Phosphatase 66 U/L (38-126); Anion Gap 13 mmol/L (4-12); Aspartate Amino Transferase 24 U/L (17-59); Bilirubin,Total 0.2 mg/dL (0.2-1.3); Blood Urea Nitrogen 13 mg/dL (9-20); Calcium 9.0 mg/dL (8.4-10.2); Carbon Dioxide 22 mmol/L (22-30); Chloride 107 mmol/L (98-107); Estimated CRCL calculation 78 ml/min; Estimated Glomerular Filt Rate > 60; Glucose 84 mg/dL (65-110); Lipase 312 U/L (23-300); Potassium 4.4 mmol/L (3.4-5.0); Sodium 142 mmol/L (137-145); Total Protein 7.4 g/dL (6.3-8.2)
[2025-01-14 13:06] LABS: NT Pro B Type Natriuretic Pept 60 pg/mL (19.9-100); Troponin I < 0.012 ng/mL (0.000-0.034)
[2025-01-14] MEDS: SODIUM CHLORIDE 0.9% IV 1,000 ML 999 ML IV CONT ×2 (13:37→20:10)
--- NOTE | 2025-01-14 13:41 | PC.NURSE ---
Patient growling and moaning loudly. Patient given call light and educated on using it if he needs something. Patient states you're mean and continues to take all of his cardiac leads, pulse ox, and BP cuff. Patient has been informed that it is important for him to keep them on so we can monitor him. Patient continues to remove it all again. Provider aware
--- OUTSIDE RECORDS SUMMARY | 2025-01-14 14:02 | XMS_ITS | Encounter Summary ---
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 difficile suspected 08/16/2024 08/16/202408/16 /2025 2:48 [...] difficile suspected 08/17/2024 08/17/202408/17 11:31 AM CDT COVID: Suspected 01/07/2025 01/07/2025 01/07/2025 11:31 AM CDT documented as of this encounter Care Teams Flower Buncher Or Picker Relationship Specialty Start Date End Date Unknown, Notinfile PCP - General 10/01/19 04/26/20 Lamberto Barker MD [address] [place] [address] PCP - General Internal Medicine 04/27/20 12/27/21 Don Walton PA [address] [place] [address] PCP - General Physician Boring Mill Operator For Metal 12/28/21 08/15/24 Ronnell Escobar NP [address] [place] [address] PCP - General Nurse Practitioner 08/16/24 Savanah Galvez, RN [address] [facility] [address] [place] [address] [facility] Outpatient Optometrist 08/22/24 08/25/24 documented as of this encounter
--- OUTSIDE RECORDS SUMMARY | 2025-01-14 14:03 | XMS_ITS | Encounter Summary ---
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 difficile suspected 08/16/2024 08/16/202408/16 /2025 2:48 [...] as of this encounter Care Teams Director Athletic Relationship Specialty Start Date End Date Unknown, Notinfile PCP - General 10/01/19 04/26/20 Lamberto Barker MD [address] [place] [address] PCP - General Internal Medicine 04/27/20 12/27/21 Don Walton PA [address] [place] [address] PCP - General Physician Improvement Spec 12/28/21 08/15/24 Ronnell Escobar NP [address] [place] [address] PCP - General Nurse Practitioner 08/16/24 Savanah Galvez, RN [address] [facility] [address] [place] [address] [facility] Outpatient Service Station Equipment Mechanic 08/22/24 08/25/24 documented as of this encounter
--- OUTSIDE RECORDS SUMMARY | 2025-01-14 14:03 | XMS_ITS | Encounter Summary ---
Author Organization [facility] Address [address] [place] [address] Care Team Providers Care Ballistics Teacher Name Role Phone Lamberto Barker MD Primary Care Provider [phone] Ronnell Escobar NP Primary Care Provider Encounter Details Date Type Department Care Team (Late st Contact Info) Description 10/21/2022 [employer] Message Enc [facility] [address] [address] [place], [facility] Provider Stress test Social History Tobacco [...] often do you attend chur ch or restoration services? 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 Answer Date of Assessment Author Status No 06/20/2021 1:29 AM FIELD CONSULTANT Activ e * Do you have [...] documented as of this encounter Care Teams Ballistics Teacher Relationship Specialty Start Date End Date Lamberto Barker MD [address] [place] [address] PCP - General INTERNAL MEDICINE 05/08/19 08/28/24 Ronnell Escobar NP [address] [facility] [address] [place] [address] PCP - General NURSE PRACTITIONER 08/29/24 documented as of this encounter
--- OUTSIDE RECORDS SUMMARY | 2025-01-14 14:03 | XMS_ITS | Encounter Summary ---
Author Organization [facility] Address [address] [place] [address] Care Team Providers Care Health Program Analyst Name Role Phone Lamberto Barker MD Primary Care Provider [phone] Ronnell Escobar NP Primary Care Provider [phone] Encounter Details Date Type Department Care Team (Late st Contact Info) Description 01/05/2021 Hospital Follow-up Call [facility] [place] [address] Heather Adames RN Social History Tobacco Use [...] any clubs o r organizations such as mormon groups, unions, fraternal or athletic groups, or [...] move on to questions 3-9 2 12/25/2020 [facility] of Occupat ional Health - Occupational Stress [...] as of this encounter Care Teams Health Program Analyst Relationship Specialty Start Date End Date Lamberto Barker MD [address] [place] [address] PCP - General INTERNAL MEDICINE 05/08/19 08/28/24 Ronnell Escobar NP [address] [facility] [address] [place] [address] PCP - General NURSE PRACTITIONER 08/29/24 documented as of this encounter
--- OUTSIDE RECORDS SUMMARY | 2025-01-14 14:03 | XMS_ITS | Encounter Summary ---
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 difficile suspected 08/16/2024 08/16/202408/16 2:48 PM [...] documented as of this encounter Care Teams American Board Certified Orthotist Relationship Specialty Start Date End Date Unknown, Notinfile PCP - General 10/01/19 04/26/20 Lamberto Barker MD [address] [place], [place] [id number] PCP - General Internal Medicine 04/27/20 12/27/21 Don Walton PA [address] [place], [place] [id number] PCP - General Physician An/Ssn 2 4 Operator 12/28/21 08/15/24 Ronnell Escobar NP [address] [place], [place] [id number] PCP - General Nurse Practitioner 08/16/24 Savanah Galvez, DALE [address] [facility] [address] [place] [address] SHOP Outpatient Machine Marker 08/22/24 08/25/24 documented as of this encounter
--- OUTSIDE RECORDS SUMMARY | 2025-01-14 14:03 | XMS_ITS | Encounter Summary ---
Author Organization [facility] Address [address] [place] [address] Care Team Providers Care Custom Furrier Name Role Phone Lamberto Barker MD Primary Care Provider [phone] Ronnell Escobar NP Primary Care Provider [phone] Encounter Details Date Type Department Care Team (Late st Contact Info) Description 11/07/2022 [employer] Message [facility] on [address] [address] [place], [facility] Provider Echocardiogram Social History Tobacco [...] How often do you attend chur or cheondoism services? Never 12/25/2020 Do you belong to any clubs o r organizations such as jew groups, unions, fraternal or athletic groups, or [...] on to questions 3-9 2 12/25/2020 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 Answer Date of Assessment Author Status No 06/20/2021 1:29 AM METAL HANGING HELPER Activ e * Do you have serious [...] documented as of this encounter Care Teams Custom Furrier Relationship Specialty Start Date End Date Lamberto Barker MD [address] [place] [address] PCP - General INTERNAL MEDICINE 05/08/19 08/28/24 Ronnell Escobar NP [address] [place] [address] PCP - General NURSE PRACTITIONER 08/29/24 documented as of this encounter
--- OUTSIDE RECORDS SUMMARY | 2025-01-14 14:03 | XMS_ITS | Clinical Summary ---
Author Organization [facility] Address [address] [place] [address] Care Team Providers Care Clinic Supervisor Name Role Phone Ronnell Escobar NP [...] by mouth daily. 10/18/19 23 Active CREON 55274-12773 units CAPSULE ENTERIC COATED PARTICLES Take 1 [...] no ischemic changes. He reports hx of [place] in the past, unclear circumstances. He had an exercise stress test in spring at an outside facility that he says was normal. Cont ASA. Pancreatic pseudocyst ([facility]) 07/26/2021 Severe sepsis ([facility]) 07/08/2021 Overview (11/04/2022): Last Assessment [...] Alcohol dependence with unsp ecified alcohol-induced disorder ([facility]) 06/25/2021 Overview (11/04/2022): Last Assessment [...] has AA resources for discharge. Acute pancreatitis ([facility]) 06/20/2021 Pancreatitis ([facility]) 05/08/2019 Hypertension Tobacco abuse Resolved Problems Problem Noted Date Diagnosed Date Resolved Date Acute pancreatitis ([facility]) 12/28/2020 06/01/2021 Hypokalemia 06/20/2020 12/25/2020 Acute pancreatitis ([facility]) 06/19/2020 12/25/2020 Necrotizing pancreatitis ([facility]) 10/21/2019 12/25/2020 [...] often do you attend chur ch or catholic services? Never 12/25/2020 Do you belong [...] 2 12/25/2020 [facility] of Occupat ional Health - Occupational Stress [...] 5 season) 2024 08/18/2020, 07/28/2020 PHQ-2 (Physician [place]) 05/29/2024 Colorectal Cancer Screening FIT/FOBT (1 Year) [...] Reduce alcohol intake Lifestyle No Nancy Matthews family life educator Procedure Name Priority Date/Time Associated Diagnosis Comments OCCULT BLOOD, FECES Routine 09/15/2019 4 :49 PM CDT from Last 3 Months or Most Recently Relevant to Health Maintenance Results * OCCULT BLOOD, FECES (09/15/2019 4:49 PM CDT) OCCULT BLOOD FECAL NEGATIVE 09/15/2019 5:[address] [facility] STOOL SPECIMEN / Unknown 09/15/2019 4:49 PM CDT us González Morataya PA-C BODY FLUIDS AND STOOLS ORDERAB LES Final Result [facility] [address] [place] [address], [place] [phone] from Last 3 Months or Most Recently [...] 11:31 PM 12/26/2020 7:51 PM Care Teams Clinic Supervisor Relationship Specialty Start Date End Date Ronnell Escobar NP [address] [facility] [address] [address] PCP - General NURSE PRACTITIONER 08/29/24
--- OUTSIDE RECORDS SUMMARY | 2025-01-14 14:04 | XMS_ITS ---
(MSEC) 156 ms [facility] QRS-Interval (MSEC) 84 ms [facility] QT-Interval (MSEC) 410 ms [facility] QTc 461 ms [facility] P [place] 41 degrees [facility] R [place] -9 degrees [facility] [place] 11 degrees [facility] Diagnosis Normal sinus rhythm Normal ECG When compared with ECG of 01-JAN-2025 10:55, Criteria for Septal infarct are no longer Present Confirmed by SULTAN DIAZ M.D. ([id number]) on 01/07/2025 9:38:56 PM [facility] 01/07/2025 9:17 AM CDT 01/07/2025 9:38 PM CDT us Lisa Carver MD ECG ORDERABLES Final Re sult [facility] * eGFR (01/03/2025 6:09 AM CDT) eGFR [...] CDT 01/03/2025 6:14 AM CDT us Barb Jaffe MD LAB BLOOD ORDERABLES Masiha alma rosa Result [facility] [address] [facility] Department [place] [address] * Differential, auto (01/03/2025 6:09 AM CDT) Neutrophil abs 5.02 1.50 - 6.50 K/cumm Imm gran abs 0.04 0.00 - 0.10 K/cumm [facility] Lymphocyte abs 1.89 0.80 - 3.30 K/cumm [facility] Monocyte abs 0.63 0.20 - 0.80 K/cumm [facility] Eosinophil abs 0.14 0.00 - 0.50 K/cumm [facility] Basophil abs 0.02 0.00 - 0.10 K/cumm [facility] Neutrophil pct 64.9 % [facility] Comment: Interpretive Data Percent cell count reference ranges are not reported, since discordance with absolute values may lead to misinterpretation of CBC data. Current Interpretive Data was last revised on 2017. Imm gran pct 0.5 % [facility] Comment: Interpretive Data Percent cell count reference ranges are not reported, since discordance with absolute values may lead to misinterpretation of CBC data. Current Interpretive Data was last revised on 2017. Lymphocyte pct 24.4 % [facility] Comment: Interpretive Data Percent cell count reference ranges are not reported, since discordance with absolute values may lead to misinterpretation of CBC data. Current Interpretive Data was last revised on 2017. Monocyte pct 8.1 % [facility] Comment: Interpretive Data Percent cell count reference ranges are not reported, since discordance with absolute values may lead to misinterpretation of CBC data. Current Interpretive Data was last revised on 2017. Eosinophil pct 1.8 % [facility] Comment: Interpretive Data Percent cell count reference ranges are not reported, since discordance with absolute values may lead to misinterpretation of CBC data. Current Interpretive Data was last revised on 2017. Basophil pct 0.3 % [facility] Comment: Interpretive Data Percent cell count reference ranges are not reported, since discordance with absolute values may lead to misinterpretation of CBC data. Current Interpretive Data was last revised on 2017. Blood 01/03/2025 6:09 AM CDT 01/03/2025 6:14 AM CDT Barb Jaffe MD LAB BLOOD ORDERABLES Maisha l Result Performing Organization Address [facility] Co de Phone Number [facility] [address] [place] [address] * (ABNORMAL) CBC with auto differential (01/03/2025 6:09 AM CDT) Pathologist [facility] WBC 7.74 3.80 - 9.90 K/cumm Hgb 10.7(L) 13.0 - 17.5 g/dL [facility] Hct 31.9(L) 38.9 - 50.3 % [facility] Plt 226 150 - 400 K/cumm [facility] MPV 9.7 9.1 - 12.3 fL [facility] RBC 3.65(L) 4.30 - 5.80 M/cumm [facility] MCV 87.4 81.3 - 96.4 fL [facility] MCH 29.3 27.1 - 33.3 pg [facility] MCHC 33.5 32.3 - 35.7 g/dL [facility] RDW CV 14.8 11.1 - 14.9 % [facility] RDW SD 47.7 35.7 - 48.1 fL [facility] NRBC abs 0.00 0.00 - 0.01 K/cumm [facility] Blood 01/03/2025 6:09 AM CDT 01/03/2025 6:14 AM CDT Barb Jaffe MD LAB BLOOD ORDERABLES Maisha l Result Performing Organization Address City/[facility]/ZIP Co de Phone Number [address] [place] [address] * Basic metabolic panel (01/03/2025 6:09 AM CDT) Pathologist [facility] Sodium 137 135 - 145 mmol/L Potassium, pl 4.0 3.3 - 4.9 mmol/L [facility] Chloride 103 97 - 110 mmol/L [facility] CO2 26 22 - 32 mmol/L [facility] Anion gap 8 2 - 15 mmol/L [facility] BUN 11 6 - 25 mg/dL [facility] Creatinine 0.90 0.80 - 1.30 mg/dL [facility] Glucose 116 70 - 199 mg/dL [facility] Comment: Interpretive Data Fasting glucose >/= [...] 2022. Calcium 9.5 8.5 - 10.3 mg/dL [facility] Blood 01/03/2025 6:09 AM CDT 01/03/2025 6:14 AM CDT Barb Liz Jaffe MD LAB BLOOD ORDERABLES Maisha st Result [facility] [address] [facility] Department [place] [address] * eGFR (01/02/2025 5:06 AM CDT) eGFR 84 >=60 mL/min/1. 73 m2 Comment: [...] MD LAB BLOOD ORDERABLES Maisha st Result [facility] [address] [facility] Department [place] [address] * Differential, auto (01/02/2025 5:06 AM CDT) Neutrophil abs 2.76 1.50 - 6.50 K/cumm Imm gran abs 0.02 0.00 - 0.10 K/cumm [facility] Lymphocyte abs 1.96 0.80 - 3.30 K/cumm [facility] Monocyte abs 0.47 0.20 - 0.80 K/cumm [facility] Eosinophil abs 0.29 0.00 - 0.50 K/cumm [facility] Basophil abs 0.04 0.00 - 0.10 K/cumm [facility] Neutrophil pct 49.8 % [facility] Comment: Interpretive Data Percent cell count reference ranges are not reported, since discordance with absolute values may lead to misinterpretation of CBC data. Current Interpretive Data was last revised on 2017. Imm gran pct 0.4 % [facility] Comment: Interpretive Data Percent cell count reference ranges are not reported, since discordance with absolute values may lead to misinterpretation of CBC data. Current Interpretive Data was last revised on 2017. Lymphocyte pct 35.4 % [facility] Comment: Interpretive Data Percent cell count reference ranges are not reported, since discordance with absolute values may lead to misinterpretation of CBC data. Current Interpretive Data was last revised on 2017. Monocyte pct 8.5 % [facility] Comment: Interpretive Data Percent cell count reference ranges are not reported, since discordance with absolute values may lead to misinterpretation of CBC data. Current Interpretive Data was last revised on 2017. Eosinophil pct 5.2 % [facility] Comment: Interpretive Data Percent cell count reference ranges are not reported, since discordance with absolute values may lead to misinterpretation of CBC data. Current Interpretive Data was last revised on 2017. Basophil pct 0.7 % [facility] Comment: Interpretive Data Percent cell count reference ranges are not reported, since discordance with absolute values may lead to misinterpretation of CBC data. Current Interpretive Data was last revised on 2017. Blood 01/02/2025 5:06 AM CDT 01/02/2025 5:46 AM CDT Barb Jaffe MD LAB BLOOD ORDERABLES Maisha st Result [facility] [address] [facility] Department [place] [address] * (ABNORMAL) CBC with auto differential (01/02/2025 5:06 AM CDT) WBC 5.54 3.80 - 9.90 K/cumm Hgb 10.3(L) 13.0 - 17.5 g/dL [facility] Hct 30.9(L) 38.9 - 50.3 % [facility] Plt 181 150 - 400 K/cumm [facility] MPV 10.1 9.1 - 12.3 fL [facility] RBC 3.55(L) 4.30 - 5.80 M/cumm [facility] MCV 87.0 81.3 - 96.4 fL [facility] MCH 29.0 27.1 - 33.3 pg [facility] MCHC 33.3 32.3 - 35.7 g/dL [facility] RDW CV 14.6 11.1 - 14.9 % [facility] RDW SD 46.3 35.7 - 48.1 fL [facility] NRBC abs 0.00 0.00 - 0.01 K/cumm [facility] Blood 01/02/2025 5:06 AM CDT 01/02/2025 5:46 AM CDT us Barb Liz Jaffe MD LAB BLOOD ORDERABLES Maisha l Result Performing Organization Address [facility]/ZIP Co de Phone Number [facility] [address] [address] * Basic metabolic panel (01/02/2025 5:06 AM CDT) Pathologist [facility] Sodium 136 135 - 145 mmol/L Potassium, pl 4.0 3.3 - 4.9 mmol/L [facility] Chloride 101 97 - 110 mmol/L [facility] CO2 23 22 - 32 mmol/L [facility] Anion gap 12 2 - 15 mmol/L [facility] BUN 8 6 - 25 mg/dL [facility] Creatinine 1.04 0.80 - 1.30 mg/dL [facility] Glucose 116 70 - 199 mg/dL [facility] Comment: Interpretive Data Fasting glucose >/= [...] 2022. Calcium 9.2 8.5 - 10.3 mg/dL [facility] Blood 01/02/2025 5:06 AM CDT 01/02/2025 5:48 AM CDT Barb Jaffe MD LAB BLOOD ORDERABLES Maisha l Result [facility] [address] [place] [address] [place] [address] * Troponin T high-sensitivity 6-hour (01/01/2025 4:37 PM CDT) [facility] Trop T hs <6 <=22 ng/L Comment: Interpretive Data For further hscTnT resources including the diagnostic algorithm and an aid in interpretation, copy and paste this link: [email or web address]/[email or web address] Current Interpretive Data last revised 2020. Trop T hs delta 0 ng/L [facility] Trop T hs interp Insignificant [facility] Blood 01/01/2025 4:37 PM CDT 01/01/2025 5:15 PM CDT Kaylynn Samuels MD LAB BLOOD ORDERABLE S Final Result Performing Organization Address [facility] Co de Phone Number [facility] [address] [place] [address] * Troponin T high-sensitivity 4-hour (01/01/2025 2:53 PM CDT) Trop T hs <6 <=22 ng/L Comment: Interpretive Data For further hscTnT resources including the diagnostic algorithm and an aid in interpretation, copy and paste this link: [email or web address]/show/[email or web address] Current Interpretive Data last revised 2020. Trop T hs delta 0 ng/L [facility] Trop T hs interp Insignificant [facility] Blood 01/01/2025 2:53 PM CDT 01/01/2025 2:58 PM CDT Kaylynn Samuels MD LAB BLOOD ORDERABLE S Final Result Performing Organization Address City/[facility] Co de Phone Number [address] [address] * Troponin T high-sensitivity 2-hour (01/01/2025 12:29 PM CDT) Trop T hs <6 <=22 ng/L Comment: Interpretive Data For further hscTnT resources including the diagnostic algorithm and an aid in interpretation, copy and paste this link: [email or web address]/[email or web address] Current Interpretive Data last revised 2020. Trop T hs delta 0 ng/L [facility] Trop T hs interp Insignificant [facility] Blood 01/01/2025 12:2 9 PM CDT 01/01/2025 12:56 PM CDT Kaylynn Samuels MD LAB BLOOD ORDERABLE S Final Result [facility] [address] [facility] [place] [address] * CT Chest W Contrast (01/01/2025 12:14 [...] Michael Plummer M.D. KR T: Report ID: [id number] Reading Location: [id number] Procedure Note Michael Plummer MD - 01/01/2025 [...] Michael Plummer M.D. KR T: Report ID: [id number] Reading Location: [place] [address] Kaylynn Samuels MD IMG CT PROCEDURES F inal Result * ECG 12 lead (01/01/2025 10:55 AM CDT) Pathologist [facility] Ventricular Rate EKG/Min 74 BPM [facility] Atrial Rate 74 BPM [facility] NE-Interval (MSEC) 152 ms [facility] QRS-Interval (MSEC) 86 ms [facility] QT-Interval (MSEC) 402 ms [facility] QTc 446 ms [facility] P [place] 37 degrees [facility] R [place] -19 degrees [facility] T [place] 7 degrees [facility] Diagnosis Normal sinus rhythm Minimal voltage criteria for LVH, may be normal variant ( R in aVL ) Septal infarct , age undetermined Confirmed by SHRUTHI PONCE M.D. ([id number]) on 01/01/2025 5:48:35 PM [facility] appiris 01/01/2025 10:5 5 AM CDT 01/01/2025 5:48 PM CDT Kaylynn Samuels MD ECG ORDERABLES Fin al Result Performing Organization Address City/[facility]/ZIP Co de Phone Number [facility] appiris [facility] * Troponin T high-sensitivity series (baseline, 2hr, 4hr, 6hr) (01/01/2025 10:44 AM CDT) Trop T hs <6 <=22 ng/L Comment: Interpretive Data For further hscTnT resources including the diagnostic algorithm and an aid in interpretation, copy and paste this link: [email or web address]/[email or web address] Current Interpretive Data last revised 2020. Blood 01/01/2025 10:4 4 AM CDT 01/01/2025 11:13 AM CDT Kaylynn Samuels MD LAB BLOOD ORDERABLE S Final Result Performing Organization Address City/[facility] Co de Phone Number [place] [id number] [facility] Department [place] [address] * eGFR (01/01/2025 4:04 AM CDT) eGFR [...] MD LAB BLOOD ORDERABLES Maisha st Result [facility] [address] [facility] [place] [address] * Differential, auto (01/01/2025 4:04 AM CDT) Pathologist [facility] Neutrophil abs 3.21 1.50 - 6.50 K/cumm Imm gran abs 0.02 0.00 - 0.10 K/cumm [facility] Lymphocyte abs 2.03 0.80 - 3.30 K/cumm [facility] Monocyte abs 0.55 0.20 - 0.80 K/cumm [facility] Eosinophil abs 0.26 0.00 - 0.50 K/cumm [facility] Basophil abs 0.04 0.00 - 0.10 K/cumm [facility] Neutrophil pct 52.5 % [facility] Comment: Interpretive Data Percent cell count reference ranges are not reported, since discordance with absolute values may lead to misinterpretation of CBC data. Current Interpretive Data was last revised on 2017. Imm gran pct 0.3 % [facility] Comment: Interpretive Data Percent cell count reference ranges are not reported, since discordance with absolute values may lead to misinterpretation of CBC data. Current Interpretive Data was last revised on 2017. Lymphocyte pct 33.2 % [facility] Comment: Interpretive Data Percent cell count reference ranges are not reported, since discordance with absolute values may lead to misinterpretation of CBC data. Current Interpretive Data was last revised on 2017. Monocyte pct 9.0 % [facility] Comment: Interpretive Data Percent cell count reference ranges are not reported, since discordance with absolute values may lead to misinterpretation of CBC data. Current Interpretive Data was last revised on 2017. Eosinophil pct 4.3 % [facility] Comment: Interpretive Data Percent cell count reference ranges are not reported, since discordance with absolute values may lead to misinterpretation of CBC data. Current Interpretive Data was last revised on 2017. Basophil pct 0.7 % [facility] Comment: Interpretive Data Percent cell count reference ranges are not reported, since discordance with absolute values may lead to misinterpretation of CBC data. Current Interpretive Data was last revised on 2017. Blood 01/01/2025 4:04 AM CDT 01/01/2025 4:20 AM CDT us Barb Liz Jaffe MD LAB BLOOD ORDERABLES Maisha st Result [place] [address] [facility] Department of Laboratories [place], [place] [id number] * (ABNORMAL) CBC with auto differential (01/01/2025 4:04 AM CDT) WBC 6.11 3.80 - 9.90 K/cumm Hgb 9.9(L) 13.0 - 17.5 g/dL [facility] Hct 29.8(L) 38.9 - 50.3 % [facility] Plt 173 150 - 400 K/cumm [facility] MPV 9.7 9.1 - 12.3 fL [facility] RBC 3.44(L) 4.30 - 5.80 M/cumm [facility] MCV 86.6 81.3 - 96.4 fL [facility] MCH 28.8 27.1 - 33.3 pg [facility] MCHC 33.2 32.3 - 35.7 g/dL [facility] RDW CV 14.5 11.1 - 14.9 % [facility] RDW SD 46.3 35.7 - 48.1 fL [facility] NRBC abs 0.00 0.00 - 0.01 K/cumm [facility] Blood 01/01/2025 4:04 AM CDT 01/01/2025 4:20 AM CDT Barb Jaffe MD LAB BLOOD ORDERABLES Maisha l Result [facility] [address] [facility] [place] [place] [address] * Basic metabolic panel (01/01/2025 4:04 AM CDT) [facility] Sodium 136 135 - 145 mmol/L Potassium, pl 3.7 3.3 - 4.9 mmol/L [facility] Chloride 102 97 - 110 mmol/L [facility] CO2 23 22 - 32 mmol/L [facility] Anion gap 11 2 - 15 mmol/L [facility] BUN 6 6 - 25 mg/dL [facility] Creatinine 1.05 0.80 - 1.30 mg/dL [facility] Glucose 128 70 - 199 mg/dL [facility] Comment: Interpretive Data Fasting glucose >/= [...] 2022. Calcium 8.5 8.5 - 10.3 mg/dL [facility] Blood 01/01/2025 4:04 AM CDT 01/01/2025 4:21 AM CDT Barb Jaffe MD LAB BLOOD ORDERABLES Maisha l Result [address] Department [place] [address] * Lipase (12/31/2024 11:02 AM CDT) [facility] Lipase 11 10 - 99 Units/L Blood 12/31/2024 11:0 2 AM CDT 12/31/2024 11:17 AM CDT Kaylynn Samuels MD LAB BLOOD ORDERABLE S Final Result Performing Organization Address [facility] Co de Phone Number [place] [address] [address] * eGFR (12/31/2024 4:27 AM CDT) eGFR >90 >=60 mL/min/1. 73 [...] ORDERABLES Maisha l Result Performing Organization Address City/[facility]/ZIP Co de Phone Number [address] [place] [address] * Differential, auto (12/31/2024 4:27 AM CDT) Neutrophil abs 3.76 1.50 - 6.50 K/cumm Imm gran abs 0.02 0.00 - 0.10 K/cumm [facility] Lymphocyte abs 1.93 0.80 - 3.30 K/cumm [facility] Monocyte abs 0.58 0.20 - 0.80 K/cumm [facility] Eosinophil abs 0.24 0.00 - 0.50 K/cumm [facility] Basophil abs 0.05 0.00 - 0.10 K/cumm [facility] Neutrophil pct 57.2 % [facility] Comment: Interpretive Data Percent cell count reference ranges are not reported, since discordance with absolute values may lead to misinterpretation of CBC data. Current Interpretive Data was last revised on 2017. Imm gran pct 0.3 % [facility] Comment: Interpretive Data Percent cell count reference ranges are not reported, since discordance with absolute values may lead to misinterpretation of CBC data. Current Interpretive Data was last revised on 2017. Lymphocyte pct 29.3 % [facility] Comment: Interpretive Data Percent cell count reference ranges are not reported, since discordance with absolute values may lead to misinterpretation of CBC data. Current Interpretive Data was last revised on 2017. Monocyte pct 8.8 % [facility] Comment: Interpretive Data Percent cell count reference ranges are not reported, since discordance with absolute values may lead to misinterpretation of CBC data. Current Interpretive Data was last revised on 2017. Eosinophil pct 3.6 % [facility] Comment: Interpretive Data Percent cell count reference ranges are not reported, since discordance with absolute values may lead to misinterpretation of CBC data. Current Interpretive Data was last revised on 2017. Basophil pct 0.8 % [facility] Comment: Interpretive Data Percent cell count reference ranges are not reported, since discordance with absolute values may lead to misinterpretation of CBC data. Current Interpretive Data was last revised on 2017. Blood 12/31/2024 4:27 AM CDT 12/31/2024 4:42 AM CDT us Barb Liz Jaffe MD LAB BLOOD ORDERABLES Maisha st Result [facility] [address] [facility] Department [place] [address] * (ABNORMAL) CBC with auto differential (12/31/2024 4:27 AM CDT) [facility] WBC 6.58 3.80 - 9.90 K/cumm Hgb 11.3(L) 13.0 - 17.5 g/dL [facility] Hct 32.8(L) 38.9 - 50.3 % [facility] Plt 193 150 - 400 K/cumm [facility] MPV 9.3 9.1 - 12.3 fL [facility] RBC 3.86(L) 4.30 - 5.80 M/cumm [facility] MCV 85.0 81.3 - 96.4 fL [facility] MCH 29.3 27.1 - 33.3 pg [facility] MCHC 34.5 32.3 - 35.7 g/dL [facility] RDW CV 14.5 11.1 - 14.9 % [facility] RDW SD 44.9 35.7 - 48.1 fL [facility] NRBC abs 0.00 0.00 - 0.01 K/cumm [facility] Blood 12/31/2024 4:27 AM CDT 12/31/2024 4:42 AM CDT Barb Jaffe MD LAB BLOOD ORDERABLES Maisha l Result Performing Organization Address City/[facility] Co de Phone Number [address] [place] [address] * Phosphorus (12/31/2024 4:27 AM CDT) [facility] Phosphorus, pl 3.2 2.3 - 4.5 mg/dL Blood 12/31/2024 4:27 AM CDT 12/31/2024 4:42 AM CDT us Kaylynn Samuels MD LAB BLOOD ORDERABLE S Final Result Performing Organization Address City/[facility] Co de Phone Number [address] [place] [address] * Magnesium (12/31/2024 4:27 AM CDT) Pathologist [facility] Magnesium 1.5 1.4 - 2.5 mg/dL Blood 12/31/2024 4:27 AM CDT 12/31/2024 4:42 AM CDT Kaylynn Samuels MD LAB BLOOD ORDERABLE S Final Result Performing Organization Address City/[facility]/ZIP Co de Phone Number [facility] [address] [facility] Department [place] [address] * (ABNORMAL) Basic metabolic panel (12/31/2024 4:27 AM CDT) [facility] Sodium 134(L) 135 - 145 mmol/L Potassium, pl 3.3 3.3 - 4.9 mmol/L [facility] Chloride 101 97 - 110 mmol/L [facility] CO2 21(L) 22 - 32 mmol/L [facility] Anion gap 12 2 - 15 mmol/L [facility] BUN 4(L) 6 - 25 mg/dL [facility] Creatinine 0.79(L) 0.80 - 1.30 mg/dL [facility] Glucose 114 70 - 199 mg/dL [facility] Comment: Interpretive Data Fasting glucose >/= [...] 2022. Calcium 9.0 8.5 - 10.3 mg/dL [facility] Blood 12/31/2024 4:27 AM CDT 12/31/2024 4:42 AM CDT Barb Jaffe MD LAB BLOOD ORDERABLES Maisha l Result Performing Organization Address City/State/[facility] Co de Phone Number [facility] [address] [facility] [place] [address] * CT Abdomen Pelvis W Contrast (12/31/2024 [...] - Electronically signed by Mitul Burt M.D. T: Report ID: [id number] Reading Location: [id number] Procedure Note Mitul Burt MD - 12/31/2024 [...] Mitul Burt M.D. RB T: Report ID: [id number] Reading Location: [place] [address] [facility] Liz Jaffe MD IMG CT PROCEDURES Final R esult * POCT glucose (12/30/2024 8:02 PM CDT) [facility] Glucose, POC 124 70 - 199 mg/dL Blood 12/30/2024 8:02 PM CDT 12/30/2024 8:02 PM CDT [facility] LAB POCT ORDERABLES - DEV ICE Final Result [facility] [address] [facility] [place] [address] * Differential, auto (12/30/2024 7:00 PM CDT) [facility] Neutrophil abs 4.64 1.50 - 6.50 K/cumm Imm gran abs 0.02 0.00 - 0.10 K/cumm [facility] Lymphocyte abs 1.67 0.80 - 3.30 K/cumm [facility] Monocyte abs 0.67 0.20 - 0.80 K/cumm [facility] Eosinophil abs 0.17 0.00 - 0.50 K/cumm [facility] Basophil abs 0.06 0.00 - 0.10 K/cumm [facility] Neutrophil pct 64.1 % [facility] Comment: Interpretive Data Percent cell count reference ranges are not reported, since discordance with absolute values may lead to misinterpretation of CBC data. Current Interpretive Data was last revised on 2017. Imm gran pct 0.3 % [facility] Comment: Interpretive Data Percent cell count reference ranges are not reported, since discordance with absolute values may lead to misinterpretation of CBC data. Current Interpretive Data was last revised on 2017. Lymphocyte pct 23.1 % [facility] Comment: Interpretive Data Percent cell count reference ranges are not reported, since discordance with absolute values may lead to misinterpretation of CBC data. Current Interpretive Data was last revised on 2017. Monocyte pct 9.3 % [facility] Comment: Interpretive Data Percent cell count reference ranges are not reported, since discordance with absolute values may lead to misinterpretation of CBC data. Current Interpretive Data was last revised on 2017. Eosinophil pct 2.4 % [facility] Comment: Interpretive Data Percent cell count reference ranges are not reported, since discordance with absolute values may lead to misinterpretation of CBC data. Current Interpretive Data was last revised on 2017. Basophil pct 0.8 % [facility] Comment: Interpretive Data Percent cell count reference ranges are not reported, since discordance with absolute values may lead to misinterpretation of CBC data. Current Interpretive Data was last revised on 2017. Blood 12/30/2024 7:00 PM CDT 12/30/2024 7:05 PM CDT us Barb Liz Jaffe MD LAB BLOOD ORDERABLES Maisha st Result [facility] [address] [facility] Department [place] [address] * (ABNORMAL) CBC with auto differential (12/30/2024 7:00 PM CDT) Pathologist [facility] [place] WBC 7.23 3.80 - 9.90 K/cumm Hgb 11.7(L) 13.0 - 17.5 g/dL [facility] Hct 34.2(L) 38.9 - 50.3 % [facility] Plt 189 150 - 400 K/cumm [facility] MPV 8.8(L) 9.1 - 12.3 fL [facility] RBC 4.03(L) 4.30 - 5.80 M/cumm [facility] MCV 84.9 81.3 - 96.4 fL [facility] MCH 29.0 27.1 - 33.3 pg [facility] MCHC 34.2 32.3 - 35.7 g/dL [facility] RDW CV 14.4 11.1 - 14.9 % [facility] RDW SD 44.5 35.7 - 48.1 fL [facility] NRBC abs 0.00 0.00 - 0.01 K/cumm [facility] Blood 12/30/2024 7:00 PM CDT 12/30/2024 7:05 PM CDT us Barb Liz Jaffe MD LAB BLOOD ORDERABLES Maisha st Result [facility] [address] [facility] Department [place] [address] * eGFR (12/30/2024 3:11 PM CDT) eGFR [...] ORDERABLES Maisha l Result Performing Organization Address [facility] Co de Phone Number [address] [place] [address] * (ABNORMAL) Basic metabolic panel (12/30/2024 3:11 PM CDT) [facility] Sodium 136 135 - 145 mmol/L Potassium, pl 3.5 3.3 - 4.9 mmol/L [facility] Chloride 102 97 - 110 mmol/L [facility] CO2 19(L) 22 - 32 mmol/L [facility] Anion gap 15 2 - 15 mmol/L [facility] BUN 6 6 - 25 mg/dL [facility] Creatinine 0.80 0.80 - 1.30 mg/dL [facility] Glucose 103 70 - 199 mg/dL [facility] Comment: Interpretive Data Fasting glucose >/= [...] 2022. Calcium 8.6 8.5 - 10.3 mg/dL [facility] Blood 12/30/2024 3:11 PM CDT 12/30/2024 3:25 PM CDT Barb Jaffe MD LAB BLOOD ORDERABLES Maisha l Result Performing Organization Address City/[facility]/ZIP Co de Phone Number [address] [place] [address] * (ABNORMAL) Drugs of Abuse Screen, Urine with Reflex Confirmation (12/29/2024 12:46 AM CDT) Amphetamine, ur Not Detected CutOff 500ng/mL Comment: Interpretive Data - Amphetamines: Samples containing greater than 500 ng/mL d-methamphetamine or other cross-reacting amphetamine compounds are reported as positive. Amphetamine immunoassays are subject to significant false positive rates due to cross-reactivity of non-amphetamine drugs. Confirmatory testing required for definitive results. Current Interpretive Data was last reviewed 2022. Barbiturates, ur Not Detected CutOff 200ng/mL [facility] Comment: Interpretive Data - Barbiturates: Samples containing greater than 200 ng/mL secobarbital or other cross-reacting barbiturate compounds are reported as positive. False positive and false negative results are possible. Confirmatory testing required for definitive results. Current Interpretive Data was last reviewed 2022. Benzodiazepines, ur Screen Positive, presumptive (A) CutOff 100ng/mL [facility] Comment: Interpretive Data - Benzodiazepines: Samples containing greater than 100 ng/mL nordiazepam or other cross-reacting compounds are reported as positive. False positive and false negative results are possible. Confirmatory testing required for definitive results. Current Interpretive Data was last reviewed 2022. Cannabinoids, ur Not Detected CutOff 50 ng/mL [facility] Comment: Interpretive Data - Cannabinoids: Samples containing greater than 50 ng/mL delta-9 THC -COOH or other cross- reacting compounds are reported as positive. False positive and false negative results are possible. Confirmatory testing required for definitive results. Current Interpretive Data was last reviewed 2022. Cocaine, ur Not Detected CutOff 150ng/mL [facility] Comment: Interpretive Data - Cocaine: Samples containing greater than 150 ng/mL benzoylecgonine or other cross- reacting compounds are reported as positive. False positive and false negative results are possible. Confirmatory testing required for definitive results. Current Interpretive Data was last reviewed 2022. Fentanyl, Ur Not Detected CutOff 5 ng/mL [facility] Comment: Interpretive Data - Fentanyl: Samples [...] AM CDT 12/29/2024 12:50 AM CDT Narrative [facility] - 12/29/2024 1:14 AM CDT Drug of Abuse screening is performed by immunoassay for medical purposes only. This is not to be used for Pain Management purposes. If Detected, confirmation testing will be performed for Amphetamines, Cocaine, Fentanyl, Methadone, Opiates, Oxycodone or Phencyclidine. Kennedy Amaro MD LAB URINE ORDERABLES Final Result Performing Organization Address [facility] Co de Phone Number [facility] [address] [place] [address] * eGFR (12/29/2024 12:46 AM CDT) Pathologist [facility] [place] eGFR 90 >=60 mL/min/1. 73 m2 Comment: [...] BLOOD ORDERABLES Final Result Performing Organization Address [facility] Co de Phone Number [facility] [address] [place] [address] * (ABNORMAL) Differential, auto (12/29/2024 12:46 AM CDT) Pathologist [facility] [place] Neutrophil abs 7.44(H) 1.50 - 6.50 K/cumm Imm gran abs 0.03 0.00 - 0.10 K/cumm [facility] Lymphocyte abs 2.59 0.80 - 3.30 K/cumm [facility] Monocyte abs 0.45 0.20 - 0.80 K/cumm [facility] Eosinophil abs 0.04 0.00 - 0.50 K/cumm [facility] Basophil abs 0.11(H) 0.00 - 0.10 K/cumm [facility] Neutrophil pct 69.8 % [facility] Comment: Interpretive Data Percent cell count reference ranges are not reported, since discordance with absolute values may lead to misinterpretation of CBC data. Current Interpretive Data was last revised on 2017. Imm gran pct 0.3 % [facility] Comment: Interpretive Data Percent cell count reference ranges are not reported, since discordance with absolute values may lead to misinterpretation of CBC data. Current Interpretive Data was last revised on 2017. Lymphocyte pct 24.3 % [facility] Comment: Interpretive Data Percent cell count reference ranges are not reported, since discordance with absolute values may lead to misinterpretation of CBC data. Current Interpretive Data was last revised on 2017. Monocyte pct 4.2 % [facility] Comment: Interpretive Data Percent cell count reference ranges are not reported, since discordance with absolute values may lead to misinterpretation of CBC data. Current Interpretive Data was last revised on 2017. Eosinophil pct 0.4 % [facility] Comment: Interpretive Data Percent cell count reference ranges are not reported, since discordance with absolute values may lead to misinterpretation of CBC data. Current Interpretive Data was last revised on 2017. Basophil pct 1.0 % [facility] Comment: Interpretive Data Percent cell count reference ranges are not reported, since discordance with absolute values may lead to misinterpretation of CBC data. Current Interpretive Data was last revised on 2017. Blood 12/29/2024 12:4 6 AM CDT 12/29/2024 12:50 AM CDT Kennedy Amaro MD LAB BLOOD ORDERABLES Final Result [facility] [address] [facility] Department [place] [address] * (ABNORMAL) Urinalysis reflex to microscopic and culture Urine (12/29/2024 12:46 AM CDT) Color, ur Yellow Yellow Clarity, ur Cloudy(A) Clear [facility] Specific gravity, ur 1.026 1.003 - 1.030 [facility] pH, urine 5.5 [facility] Comment: Interpretive Data U rine pH is affected by diet, medications, systemic acid-base disturbances, and renal tubular function. pH may affect urinary stone formation. For example, urine pH below 6.0 may help reduce the tendency for calcium phosphate stones and pH greater than 6.0 may reduce the tendency for uric acid stone formation. Source: [facility] Current Interpretive Data was last revised on 2017 Protein, ur ql 1+(A) Negative [facility] Glucose, ur ql Negative Negative [facility] Ketones, ur Trace Negative [facility] Bilirubin, ur Negative Negative [facility] Blood, ur Negative Negative [facility] Urobilinogen, ur <2.0 <2.0 mg/dL [facility] Nitrite, ur Negative Negative [facility] Leukocyte esterase, ur Negative Negative [facility] UA reflex comment Reflex to microscopic UA will be performed. [facility] Urine 12/29/2024 12:4 6 AM CDT 12/29/2024 12:50 AM CDT Kennedy Amaro MD LAB MICROBIOLOGY - [facility] ORDERABLES Final Result [facility] [address] [facility] [place] [address] * (ABNORMAL) CBC with auto differential (12/29/2024 12:46 AM CDT) WBC 10.66(H) 3.80 - 9.90 K/cumm Hgb 13.8 13.0 - 17.5 g/dL [facility] Hct 41.1 38.9 - 50.3 % [facility] Plt 374 150 - 400 K/cumm [facility] MPV 8.9(L) 9.1 - 12.3 fL [facility] RBC 4.82 4.30 - 5.80 M/cumm [facility] MCV 85.3 81.3 - 96.4 fL [facility] MCH 28.6 27.1 - 33.3 pg [facility] MCHC 33.6 32.3 - 35.7 g/dL [facility] RDW CV 14.8 11.1 - 14.9 % [facility] RDW SD 46.0 35.7 - 48.1 fL [facility] NRBC abs 0.00 0.00 - 0.01 K/cumm [facility] Blood 12/29/2024 12:4 6 AM CDT 12/29/2024 12:50 AM CDT Kennedy Amaro MD LAB BLOOD ORDERABLES Final Result Performing Organization Address [facility] de Phone Number [address] [place] [address] * (ABNORMAL) Urinalysis, microscopic only (12/29/2024 12:46 AM CDT) WBC, ur 0-5 0 - 5 /HPF RBC, ur 0-2 0 - 2 /HPF [facility] Epithelial cells, squamous, ur 1-5 0 - 5 /HPF [facility] Bacteria, ur Trace(A) [facility] Mucous, ur Present(A) [facility] Hyaline casts, ur 21-50(A) 0 - 10 /LPF [facility] Culture Reflex Comment Reflex conditions for urine culture (WBC >10) not met. [facility] Urine 12/29/2024 12:4 6 AM CDT 12/29/2024 12:50 AM CDT Kennedy Amaro MD LAB URINE ORDERABLES Final Result Performing Organization Address [facility] de Phone Number [address] [place] [address] * Phosphorus (12/29/2024 12:46 AM CDT) Phosphorus, pl 4.1 2.3 - 4.5 mg/dL Blood 12/29/2024 12:4 6 AM CDT 12/29/2024 12:50 AM CDT Barb Jaffe MD LAB BLOOD ORDERABLES Maisha l Result Performing Organization Address [facility] Co de Phone Number [address] [place] [address] * Magnesium (12/29/2024 12:46 AM CDT) Magnesium 1.8 1.4 - 2.5 mg/dL Blood 12/29/2024 12:4 6 AM CDT 12/29/2024 12:50 AM CDT Barb Jaffe MD LAB BLOOD ORDERABLES Maisha l Result Performing Organization Address [facility] de Phone Number [address] [place] [address] * Lipase (12/29/2024 12:46 AM CDT) Pathologist [facility] [place] Lipase 11 10 - 99 Units/L Blood 12/29/2024 12:4 6 AM CDT 12/29/2024 12:50 AM CDT Barb Jaffe MD LAB BLOOD ORDERABLES Maisha l Result Performing Organization Address [facility] de Phone Number [address] [place] [address] * (ABNORMAL) Ethanol (12/29/2024 12:46 AM CDT) Pathologist [facility] [place] Ethanol 303(H) <=10 mg/dL Comment: Interpretive Data Legal limit of intoxication > or = 80 mg/dL Levels > or = 400 mg/dL are potentially TOXIC. Current interpretive data was last revised on 2018. Blood 12/29/2024 12:4 6 AM CDT 12/29/2024 12:50 AM CDT Kennedy Amaro MD LAB BLOOD ORDERABLES Final Result Performing Organization Address [facility] Co de Phone Number [address] [place] [address] * (ABNORMAL) Comprehensive metabolic panel (12/29/2024 12:46 AM CDT) Sodium 141 135 - 145 mmol/L Potassium, pl 3.9 3.3 - 4.9 mmol/L [facility] Chloride 102 97 - 110 mmol/L [facility] CO2 21(L) 22 - 32 mmol/L [facility] Anion gap 18(H) 2 - 15 mmol/L [facility] BUN 20 6 - 25 mg/dL [facility] Creatinine 0.98 0.80 - 1.30 mg/dL [facility] Glucose 146 70 - 199 mg/dL [facility] Comment: Interpretive Data Fasting glucose >/= [...] Calcium 9.1 8.5 - 10.3 mg/dL [facility] Bilirubin, total 0.2 0.1 - 1.2 mg/dL [facility] Protein, pl 7.7 6.5 - 8.5 g/dL [facility] Albumin 4.8 3.5 - 5.0 g/dL [facility] Alk phos 103 40 - 130 Units/L [facility] ALT 12 7 - 55 Units/L [facility] AST 23 10 - 50 Units/L [facility] Blood 12/29/2024 12:4 6 AM CDT 12/29/2024 12:50 AM CDT us Kennedy Amaro MD LAB BLOOD ORDERABLES Final Result [facility] [address] [place] [address] * eGFR (12/17/2024 6:32 AM CDT) Pathologist [facility] [place] eGFR 73 >=60 mL/min/1. 73 m2 Comment: [...] 6:32 AM CDT 12/17/2024 6:42 AM CDT us Herb Huffman DO LAB BLOOD ORDERABLES nal Result [facility] [address] [facility] [place] [address] * Differential, auto (12/17/2024 6:32 AM CDT) [facility] Neutrophil abs 4.06 1.50 - 6.50 K/cumm Imm gran abs 0.02 0.00 - 0.10 K/cumm [facility] Lymphocyte abs 1.58 0.80 - 3.30 K/cumm [facility] Monocyte abs 0.63 0.20 - 0.80 K/cumm [facility] Eosinophil abs 0.20 0.00 - 0.50 K/cumm [facility] Basophil abs 0.05 0.00 - 0.10 K/cumm [facility] Neutrophil pct 62.0 % [facility] Comment: Interpretive Data Percent cell count reference ranges are not reported, since discordance with absolute values may lead to misinterpretation of CBC data. Current Interpretive Data was last revised on 2017. Imm gran pct 0.3 % [facility] Comment: Interpretive Data Percent cell count reference ranges are not reported, since discordance with absolute values may lead to misinterpretation of CBC data. Current Interpretive Data was last revised on 2017. Lymphocyte pct 24.2 % [facility] Comment: Interpretive Data Percent cell count reference ranges are not reported, since discordance with absolute values may lead to misinterpretation of CBC data. Current Interpretive Data was last revised on 2017. Monocyte pct 9.6 % [facility] Comment: Interpretive Data Percent cell count reference ranges are not reported, since discordance with absolute values may lead to misinterpretation of CBC data. Current Interpretive Data was last revised on 2017. Eosinophil pct 3.1 % [facility] Comment: Interpretive Data Percent cell count reference ranges are not reported, since discordance with absolute values may lead to misinterpretation of CBC data. Current Interpretive Data was last revised on 2017. Basophil pct 0.8 % [facility] Comment: Interpretive Data Percent cell count reference ranges are not reported, since discordance with absolute values may lead to misinterpretation of CBC data. Current Interpretive Data was last revised on 2017. Blood 12/17/2024 6:32 AM CDT 12/17/2024 6:42 AM CDT Herb Huffman DO LAB BLOOD ORDERABLES Fi nal Result [facility] [address] [facility] Department [place] [address] * (ABNORMAL) CBC with auto differential (12/17/2024 6:32 AM CDT) WBC 6.54 3.80 - 9.90 K/cumm Hgb 10.8(L) 13.0 - 17.5 g/dL [facility] Hct 33.5(L) 38.9 - 50.3 % [facility] Plt 258 150 - 400 K/cumm [facility] MPV 9.4 9.1 - 12.3 fL [facility] RBC 3.66(L) 4.30 - 5.80 M/cumm [facility] MCV 91.5 81.3 - 96.4 fL [facility] MCH 29.5 27.1 - 33.3 pg [facility] MCHC 32.2(L) 32.3 - 35.7 g/dL [facility] RDW CV 15.3(H) 11.1 - 14.9 % [facility] RDW SD 51.2(H) 35.7 - 48.1 fL [facility] NRBC abs 0.00 0.00 - 0.01 K/cumm [facility] Blood 12/17/2024 6:32 AM CDT 12/17/2024 6:42 AM CDT Herb Huffman DO LAB BLOOD ORDERABLES Fi nal Result Performing Organization Address [facility] Co de Phone Number [address] [place] [address] * Magnesium (12/17/2024 6:32 AM CDT) [facility] Magnesium 2.0 1.4 - 2.5 mg/dL Blood 12/17/2024 6:32 AM CDT 12/17/2024 6:42 AM CDT Herb Huffman DO LAB BLOOD ORDERABLES Fi nal Result Performing Organization Address City/[facility] Co de Phone Number [address] [place] [address] * (ABNORMAL) Comprehensive metabolic panel (12/17/2024 6:32 AM CDT) Pathologist [facility] [place] Sodium 139 135 - 145 mmol/L Potassium, pl 4.6 3.3 - 4.9 mmol/L [facility] Chloride 106 97 - 110 mmol/L [facility] CO2 23 22 - 32 mmol/L [facility] Anion gap 10 2 - 15 mmol/L [facility] BUN 10 6 - 25 mg/dL [facility] Creatinine 1.16 0.80 - 1.30 mg/dL [facility] Glucose 101 70 - 199 mg/dL [facility] Comment: Interpretive Data Fasting glucose >/= [...] 2022. Calcium 9.3 8.5 - 10.3 mg/dL [facility] Bilirubin, total 0.2 0.1 - 1.2 mg/dL [facility] Protein, pl 5.9(L) 6.5 - 8.5 g/dL [facility] Albumin 3.7 3.5 - 5.0 g/dL [facility] Alk phos 72 40 - 130 Units/L [facility] ALT 9 7 - 55 Units/L [facility] AST 18 10 - 50 Units/L [facility] Blood 12/17/2024 6:32 AM CDT 12/17/2024 6:42 AM CDT Herb Huffman DO LAB BLOOD ORDERABLES Fi nal Result [facility] [address] [facility] [place] [address] * eGFR (12/16/2024 4:56 AM CDT) eGFR [...] 4:56 AM CDT 12/16/2024 5:26 AM CDT us Herb Huffman DO LAB BLOOD ORDERABLES Fi nal Result [facility] [address] [facility] [place] [address] * Differential, auto (12/16/2024 4:56 AM CDT) Neutrophil abs 2.62 1.50 - 6.50 K/cumm Imm gran abs 0.02 0.00 - 0.10 K/cumm [facility] Lymphocyte abs 1.69 0.80 - 3.30 K/cumm [facility] Monocyte abs 0.57 0.20 - 0.80 K/cumm [facility] Eosinophil abs 0.21 0.00 - 0.50 K/cumm [facility] Basophil abs 0.07 0.00 - 0.10 K/cumm [facility] Neutrophil pct 50.5 % [facility] Comment: Interpretive Data Percent cell count reference ranges are not reported, since discordance with absolute values may lead to misinterpretation of CBC data. Current Interpretive Data was last revised on 2017. Imm gran pct 0.4 % [facility] Comment: Interpretive Data Percent cell count reference ranges are not reported, since discordance with absolute values may lead to misinterpretation of CBC data. Current Interpretive Data was last revised on 2017. Lymphocyte pct 32.6 % [facility] Comment: Interpretive Data Percent cell count reference ranges are not reported, since discordance with absolute values may lead to misinterpretation of CBC data. Current Interpretive Data was last revised on 2017. Monocyte pct 11.0 % [facility] Comment: Interpretive Data Percent cell count reference ranges are not reported, since discordance with absolute values may lead to misinterpretation of CBC data. Current Interpretive Data was last revised on 2017. Eosinophil pct 4.1 % [facility] Comment: Interpretive Data Percent cell count reference ranges are not reported, since discordance with absolute values may lead to misinterpretation of CBC data. Current Interpretive Data was last revised on 2017. Basophil pct 1.4 % [facility] Comment: Interpretive Data Percent cell count reference ranges are not reported, since discordance with absolute values may lead to misinterpretation of CBC data. Current Interpretive Data was last revised on 2017. Blood 12/16/2024 4:56 AM CDT 12/16/2024 5:26 AM CDT eHrb Huffman DO LAB BLOOD ORDERABLES Fi nal Result [place] [id number] [facility] [place] [address] * (ABNORMAL) CBC with auto differential (12/16/2024 4:56 AM CDT) WBC 5.18 3.80 - 9.90 K/cumm Hgb 10.8(L) 13.0 - 17.5 g/dL [facility] Hct 33.8(L) 38.9 - 50.3 % [facility] Plt 288 150 - 400 K/cumm [facility] MPV 9.4 9.1 - 12.3 fL [facility] RBC 3.65(L) 4.30 - 5.80 M/cumm [facility] MCV 92.6 81.3 - 96.4 fL [facility] MCH 29.6 27.1 - 33.3 pg [facility] MCHC 32.0(L) 32.3 - 35.7 g/dL [facility] RDW CV 15.3(H) 11.1 - 14.9 % [facility] RDW SD 51.8(H) 35.7 - 48.1 fL [facility] NRBC abs 0.00 0.00 - 0.01 K/cumm [facility] Blood 12/16/2024 4:56 AM CDT 12/16/2024 5:26 AM CDT [facility]coso [facility] LAB BLOOD ORDERABLES Fi nal Result Performing Organization Address [facility] de Phone Number [address] [address] * Magnesium (12/16/2024 4:56 AM CDT) [facility] Magnesium 1.9 1.4 - 2.5 mg/dL Blood 12/16/2024 4:56 AM CDT 12/16/2024 5:26 AM CDT Herb S. [facility] LAB BLOOD ORDERABLES Fi nal Result Performing Organization Address [facility] Phone Number [address] [address] * (ABNORMAL) Comprehensive metabolic panel (12/16/2024 4:56 AM CDT) [facility] Sodium 138 135 - 145 mmol/L Potassium, pl 4.2 3.3 - 4.9 mmol/L [facility] Chloride 105 97 - 110 mmol/L [facility] CO2 23 22 - 32 mmol/L [facility] Anion gap 10 2 - 15 mmol/L [facility] BUN 8 6 - 25 mg/dL [facility] Creatinine 0.99 0.80 - 1.30 mg/dL [facility] Glucose 123 70 - 199 mg/dL [facility] Comment: Interpretive Data Fasting glucose >/= [...] 2022. Calcium 9.2 8.5 - 10.3 mg/dL [facility] Bilirubin, total 0.2 0.1 - 1.2 mg/dL [facility] Protein, pl 5.8(L) 6.5 - 8.5 g/dL [facility] Albumin 3.6 3.5 - 5.0 g/dL [facility] Alk phos 69 40 - 130 Units/L [facility] ALT 9 7 - 55 Units/L [facility] AST 18 10 - 50 Units/L [facility] Blood 12/16/2024 4:56 AM CDT 12/16/2024 5:26 AM CDT Herb Huffman DO LAB BLOOD ORDERABLES Fi nal Result [facility] [address] [facility] Department [place] [address] * eGFR (12/15/2024 4:26 AM CDT) eGFR [...] CDT 12/15/2024 4:48 AM CDT us Herb Troncoso Waylonalma rosa DO LAB BLOOD ORDERABLES Fi nal Result [place] [address] [facility] Department [place] [address] * Differential, auto (12/15/2024 4:26 AM CDT) Neutrophil abs 2.44 1.50 - 6.50 K/cumm Imm gran abs 0.03 0.00 - 0.10 K/cumm [facility] Lymphocyte abs 1.99 0.80 - 3.30 K/cumm [facility] Monocyte abs 0.48 0.20 - 0.80 K/cumm [facility] Eosinophil abs 0.19 0.00 - 0.50 K/cumm [facility] Basophil abs 0.07 0.00 - 0.10 K/cumm [facility] Neutrophil pct 46.9 % [facility] Comment: Interpretive Data Percent cell count reference ranges are not reported, since discordance with absolute values may lead to misinterpretation of CBC data. Current Interpretive Data was last revised on 2017. Imm gran pct 0.6 % [facility] Comment: Interpretive Data Percent cell count reference ranges are not reported, since discordance with absolute values may lead to misinterpretation of CBC data. Current Interpretive Data was last revised on 2017. Lymphocyte pct 38.3 % [facility] Comment: Interpretive Data Percent cell count reference ranges are not reported, since discordance with absolute values may lead to misinterpretation of CBC data. Current Interpretive Data was last revised on 2017. Monocyte pct 9.2 % [facility] Comment: Interpretive Data Percent cell count reference ranges are not reported, since discordance with absolute values may lead to misinterpretation of CBC data. Current Interpretive Data was last revised on 2017. Eosinophil pct 3.7 % [facility] Comment: Interpretive Data Percent cell count reference ranges are not reported, since discordance with absolute values may lead to misinterpretation of CBC data. Current Interpretive Data was last revised on 2017. Basophil pct 1.3 % [facility] Comment: Interpretive Data Percent cell count reference ranges are not reported, since discordance with absolute values may lead to misinterpretation of CBC data. Current Interpretive Data was last revised on 2017. Blood 12/15/2024 4:26 AM CDT 12/15/2024 4:48 AM CDT Herb Huffman DO LAB BLOOD ORDERABLES Fi nal Result Performing Organization Address City/[facility]/ZIP Co de Phone Number [address] [place] [address] * (ABNORMAL) CBC with auto differential (12/15/2024 4:26 AM CDT) Pathologist [facility] [place] WBC 5.20 3.80 - 9.90 K/cumm Hgb 10.5(L) 13.0 - 17.5 g/dL [facility] Hct 32.9(L) 38.9 - 50.3 % [facility] Plt 338 150 - 400 K/cumm [facility] MPV 9.2 9.1 - 12.3 fL [facility] RBC 3.58(L) 4.30 - 5.80 M/cumm [facility] MCV 91.9 81.3 - 96.4 fL [facility] MCH 29.3 27.1 - 33.3 pg [facility] MCHC 31.9(L) 32.3 - 35.7 g/dL [facility] RDW CV 15.2(H) 11.1 - 14.9 % [facility] RDW SD 51.6(H) 35.7 - 48.1 fL [facility] NRBC abs 0.00 0.00 - 0.01 K/cumm [facility] Blood 12/15/2024 4:26 AM CDT 12/15/2024 4:48 AM CDT Herb Huffman DO LAB BLOOD ORDERABLES Fi nal Result Performing Organization Address City/[facility]/ZIP Co de Phone Number [address] [place] [address] * Magnesium (12/15/2024 4:26 AM CDT) Pathologist [facility] [place] Magnesium 2.1 1.4 - 2.5 mg/dL Blood 12/15/2024 4:26 AM CDT 12/15/2024 4:48 AM CDT us Herb EscobedoYumiko Huffman DO LAB BLOOD ORDERABLES Fi nal Result [facility] [address] [facility] Department [place] [address] * (ABNORMAL) Comprehensive metabolic panel (12/15/2024 4:26 AM CDT) [facility] Sodium 136 135 - 145 mmol/L Potassium, pl 4.5 3.3 - 4.9 mmol/L [facility] Chloride 104 97 - 110 mmol/L [facility] CO2 25 22 - 32 mmol/L [facility] Anion gap 7 2 - 15 mmol/L [facility] BUN 6 6 - 25 mg/dL [facility] Creatinine 0.88 0.80 - 1.30 mg/dL [facility] Glucose 99 70 - 199 mg/dL [facility] Comment: Interpretive Data Fasting glucose >/= [...] 2022. Calcium 9.0 8.5 - 10.3 mg/dL [facility] Bilirubin, total 0.2 0.1 - 1.2 mg/dL [facility] Protein, pl 5.8(L) 6.5 - 8.5 g/dL [facility] Albumin 3.8 3.5 - 5.0 g/dL [facility] Alk phos 79 40 - 130 Units/L [facility] ALT 9 7 - 55 Units/L [facility] AST 16 10 - 50 Units/L [facility] Blood 12/15/2024 4:26 AM CDT 12/15/2024 4:48 AM CDT Herb S. Kalapurayil DO LAB BLOOD ORDERABLES Fi nal Result Performing Organization Address [facility] Co de Phone Number [place] [address] [address] * eGFR (12/14/2024 5:06 AM CDT) Pathologist [facility] [place] eGFR >90 >=60 mL/min/1. 73 m2 Comment: [...] AM CDT 12/14/2024 5:37 AM CDT Herb SYumiko Mendesapurayil DO LAB BLOOD ORDERABLES Fi nal Result Performing Organization Address City/[facility]/ZIP Co de Phone Number [address] [address] * Differential, auto (12/14/2024 5:06 AM CDT) [facility] Neutrophil abs 3.55 1.50 - 6.50 K/cumm Imm gran abs 0.02 0.00 - 0.10 K/cumm [facility] Lymphocyte abs 1.92 0.80 - 3.30 K/cumm [facility] Monocyte abs 0.69 0.20 - 0.80 K/cumm [facility] Eosinophil abs 0.16 0.00 - 0.50 K/cumm [facility] Basophil abs 0.10 0.00 - 0.10 K/cumm [facility] Neutrophil pct 55.1 % [facility] Comment: Interpretive Data Percent cell count reference ranges are not reported, since discordance with absolute values may lead to misinterpretation of CBC data. Current Interpretive Data was last revised on 2017. Imm gran pct 0.3 % [facility] Comment: Interpretive Data Percent cell count reference ranges are not reported, since discordance with absolute values may lead to misinterpretation of CBC data. Current Interpretive Data was last revised on 2017. Lymphocyte pct 29.8 % [facility] Comment: Interpretive Data Percent cell count reference ranges are not reported, since discordance with absolute values may lead to misinterpretation of CBC data. Current Interpretive Data was last revised on 2017. Monocyte pct 10.7 % [facility] Comment: Interpretive Data Percent cell count reference ranges are not reported, since discordance with absolute values may lead to misinterpretation of CBC data. Current Interpretive Data was last revised on 2017. Eosinophil pct 2.5 % [facility] Comment: Interpretive Data Percent cell count reference ranges are not reported, since discordance with absolute values may lead to misinterpretation of CBC data. Current Interpretive Data was last revised on 2017. Basophil pct 1.6 % [facility] Comment: Interpretive Data Percent cell count reference ranges are not reported, since discordance with absolute values may lead to misinterpretation of CBC data. Current Interpretive Data was last revised on 2017. Blood 12/14/2024 5:06 AM CDT 12/14/2024 5:37 AM CDT Herb Huffman DO LAB BLOOD ORDERABLES Fi nal Result [facility] [address] [facility] Department [place] [address] * (ABNORMAL) CBC with auto differential (12/14/2024 5:06 AM CDT) [facility] WBC 6.44 3.80 - 9.90 K/cumm Hgb 11.2(L) 13.0 - 17.5 g/dL [facility] Hct 35.2(L) 38.9 - 50.3 % [facility] Plt 415(H) 150 - 400 K/cumm [facility] MPV 8.9(L) 9.1 - 12.3 fL [facility] RBC 3.87(L) 4.30 - 5.80 M/cumm [facility] MCV 91.0 81.3 - 96.4 fL [facility] MCH 28.9 27.1 - 33.3 pg [facility] MCHC 31.8(L) 32.3 - 35.7 g/dL [facility] RDW CV 15.4(H) 11.1 - 14.9 % [facility] RDW SD 50.5(H) 35.7 - 48.1 fL [facility] NRBC abs 0.00 0.00 - 0.01 K/cumm [facility] Blood 12/14/2024 5:06 AM CDT 12/14/2024 5:37 AM CDT Herb Huffman DO LAB BLOOD ORDERABLES Fi nal Result Performing Organization Address [facility] de Phone Number [address] [place] [employer] [address] * Magnesium (12/14/2024 5:06 AM CDT) [facility] Magnesium 1.9 1.4 - 2.5 mg/dL Blood 12/14/2024 5:06 AM CDT 12/14/2024 5:37 AM CDT Herb Huffman DO LAB BLOOD ORDERABLES Fi nal Result Performing Organization Address [facility] Co de Phone Number [address] [place] [address] * (ABNORMAL) Lipase (12/14/2024 5:06 AM CDT) Lipase 9(L) 10 - 99 Units/L Blood 12/14/2024 5:06 AM CDT 12/14/2024 5:37 AM CDT Herb Huffman DO LAB BLOOD ORDERABLES Fi nal Result [facility] [address] [facility] Department [place] [address] * (ABNORMAL) Comprehensive metabolic panel (12/14/2024 5:06 AM CDT) Pathologist [facility] [place] Sodium 138 135 - 145 mmol/L Potassium, pl 4.1 3.3 - 4.9 mmol/L [facility] Chloride 104 97 - 110 mmol/L [facility] CO2 24 22 - 32 mmol/L [facility] Anion gap 10 2 - 15 mmol/L [facility] BUN 5(L) 6 - 25 mg/dL [facility] Creatinine 0.92 0.80 - 1.30 mg/dL [facility] Glucose 103 70 - 199 mg/dL [facility] Comment: Interpretive Data Fasting glucose >/= [...] Calcium 9.1 8.5 - 10.3 mg/dL [facility] Bilirubin, total 0.2 0.1 - 1.2 mg/dL [facility] Protein, pl 6.1(L) 6.5 - 8.5 g/dL [facility] Albumin 3.7 3.5 - 5.0 g/dL [facility] Alk phos 84 40 - 130 Units/L [facility] ALT 8 7 - 55 Units/L [facility] AST 14 10 - 50 Units/L [facility] Blood 12/14/2024 5:06 AM CDT 12/14/2024 5:37 AM CDT Herb Mendesapurayil DO LAB BLOOD ORDERABLES Fi nal Result Performing Organization Address [facility] Co de Phone Number [address] [address] * eGFR (12/13/2024 6:05 AM CDT) eGFR [...] AM CDT 12/13/2024 6:32 AM CDT Herb Grossmanurayil DO LAB BLOOD ORDERABLES Fi nal Result Performing Organization Address City/[facility]/ZIP Co de Phone Number [address] [place] [address] * Differential, auto (12/13/2024 6:05 AM CDT) Neutrophil abs 2.44 1.50 - 6.50 K/cumm Imm gran abs 0.01 0.00 - 0.10 K/cumm [facility] Lymphocyte abs 1.75 0.80 - 3.30 K/cumm [facility] Monocyte abs 0.54 0.20 - 0.80 K/cumm [facility] Eosinophil abs 0.15 0.00 - 0.50 K/cumm [facility] Basophil abs 0.08 0.00 - 0.10 K/cumm [facility] Neutrophil pct 49.1 % [facility] Comment: Interpretive Data Percent cell count reference ranges are not reported, since discordance with absolute values may lead to misinterpretation of CBC data. Current Interpretive Data was last revised on 2017. Imm gran pct 0.2 % [facility] Comment: Interpretive Data Percent cell count reference ranges are not reported, since discordance with absolute values may lead to misinterpretation of CBC data. Current Interpretive Data was last revised on 2017. Lymphocyte pct 35.2 % [facility] Comment: Interpretive Data Percent cell count reference ranges are not reported, since discordance with absolute values may lead to misinterpretation of CBC data. Current Interpretive Data was last revised on 2017. Monocyte pct 10.9 % [facility] Comment: Interpretive Data Percent cell count reference ranges are not reported, since discordance with absolute values may lead to misinterpretation of CBC data. Current Interpretive Data was last revised on 2017. Eosinophil pct 3.0 % [facility] Comment: Interpretive Data Percent cell count reference ranges are not reported, since discordance with absolute values may lead to misinterpretation of CBC data. Current Interpretive Data was last revised on 2017. Basophil pct 1.6 % [facility] Comment: Interpretive Data Percent cell count reference ranges are not reported, since discordance with absolute values may lead to misinterpretation of CBC data. Current Interpretive Data was last revised on 2017. Blood 12/13/2024 6:05 AM CDT 12/13/2024 6:32 AM CDT us Jada Sosa CLINICAL WRITER LAB BLOOD ORDERABLES Final Result [place] [address] [facility] Department [place] [address] * (ABNORMAL) CBC with auto differential (12/13/2024 6:05 AM CDT) [facility] WBC 4.97 3.80 - 9.90 K/cumm Hgb 11.3(L) 13.0 - 17.5 g/dL [facility] Hct 35.3(L) 38.9 - 50.3 % [facility] Plt 434(H) 150 - 400 K/cumm [facility] MPV 8.8(L) 9.1 - 12.3 fL [facility] RBC 3.87(L) 4.30 - 5.80 M/cumm [facility] MCV 91.2 81.3 - 96.4 fL [facility] MCH 29.2 27.1 - 33.3 pg [facility] MCHC 32.0(L) 32.3 - 35.7 g/dL [facility] RDW CV 15.3(H) 11.1 - 14.9 % [facility] RDW SD 50.6(H) 35.7 - 48.1 fL [facility] NRBC abs 0.00 0.00 - 0.01 K/cumm [facility] Blood 12/13/2024 6:05 AM CDT 12/13/2024 6:32 AM CDT Jada Sosa CLINICAL WRITER LAB BLOOD ORDERABLES Final Result Performing Organization Address City/[facility] Co de Phone Number [address] [place] [address] * Magnesium (12/13/2024 6:05 AM CDT) [facility] Magnesium 2.0 1.4 - 2.5 mg/dL Blood 12/13/2024 6:05 AM CDT 12/13/2024 6:32 AM CDT Herb Huffman DO LAB BLOOD ORDERABLES Fi nal Result Performing Organization Address City/[facility]/ZIP Co de Phone Number [address] [address] * (ABNORMAL) Comprehensive metabolic panel (12/13/2024 6:05 AM CDT) [facility] Sodium 139 135 - 145 mmol/L Potassium, pl 4.2 3.3 - 4.9 mmol/L [facility] Chloride 107 97 - 110 mmol/L [facility] CO2 24 22 - 32 mmol/L [facility] Anion gap 8 2 - 15 mmol/L [facility] BUN 5(L) 6 - 25 mg/dL [facility] Creatinine 0.91 0.80 - 1.30 mg/dL [facility] Glucose 102 70 - 199 mg/dL [facility] Comment: Interpretive Data Fasting glucose >/= [...] 2022. Calcium 8.9 8.5 - 10.3 mg/dL [facility] Bilirubin, total 0.2 0.1 - 1.2 mg/dL [facility] Protein, pl 5.8(L) 6.5 - 8.5 g/dL [facility] Albumin 3.5 3.5 - 5.0 g/dL [facility] Alk phos 86 40 - 130 Units/L [facility] ALT 8 7 - 55 Units/L [facility] AST 15 10 - 50 Units/L [facility] Blood 12/13/2024 6:05 AM CDT 12/13/2024 6:32 AM CDT us Herb Huffman DO LAB BLOOD ORDERABLES Fi nal Result [place] [address] [facility] [place] [address] * (ABNORMAL) Drugs of Abuse Screen, Urine without Confirmation (12/12/2024 9:35 AM CDT) [facility] Amphetamine, ur Not Detected CutOff [...] Barbiturates, ur Not Detected CutOff 200ng/mL [facility] Comment: Interpretive Data - Barbiturates: Samples containing greater than 200 ng/mL secobarbital or other cross-reacting barbiturate compounds are reported as positive. False positive and false negative results are possible. Confirmatory testing required for definitive results. Current Interpretive Data was last reviewed 2022. Benzodiazepines, ur Screen Positive, presumptive (A) CutOff 100ng/mL [facility] Comment: Interpretive Data - Benzodiazepines: Samples containing greater than 100 ng/mL nordiazepam or other cross-reacting compounds are reported as positive. False positive and false negative results are possible. Confirmatory testing required for definitive results. Current Interpretive Data was last reviewed 2022. Cannabinoids, ur Screen Positive, presumptive (A) CutOff 50 ng/mL [facility] Comment: Interpretive Data - Cannabinoids: Samples containing greater than 50 ng/mL delta-9 THC -COOH or other cross- reacting compounds are reported as positive. False positive and false negative results are possible. Confirmatory testing required for definitive results. Current Interpretive Data was last reviewed 2022. Cocaine, ur Not Detected CutOff 150ng/mL [facility] Comment: Interpretive Data - Cocaine: Samples containing greater than 150 ng/mL benzoylecgonine or other cross- reacting compounds are reported as positive. False positive and false negative results are possible. Confirmatory testing required for definitive results. Current Interpretive Data was last reviewed 2022. Fentanyl, Ur Not Detected CutOff 5 ng/mL [facility] Comment: Interpretive Data - Fentanyl: Samples [...] AM CDT 12/12/2024 9:38 AM CDT Narrative [facility] - 12/12/2024 10:39 AM CDT Drug of Abuse screening is performed by immunoassay for medical purposes only. This is not to be used for Pain Management purposes. us Jada Sosa NP LAB URINE ORDERABLES Final Result [place] [address] [facility] [place] [address] * eGFR (12/12/2024 4:37 AM CDT) [facility] eGFR >90 >=60 mL/min/1. 73 [...] DO LAB BLOOD ORDERABLES Fi nal Result [facility] [address] [facility] Department [place] [address] * Differential, auto (12/12/2024 4:37 AM CDT) [facility] Neutrophil abs 2.24 1.50 - 6.50 K/cumm Imm gran abs 0.02 0.00 - 0.10 K/cumm [facility] Lymphocyte abs 1.65 0.80 - 3.30 K/cumm [facility] Monocyte abs 0.55 0.20 - 0.80 K/cumm [facility] Eosinophil abs 0.13 0.00 - 0.50 K/cumm [facility] Basophil abs 0.07 0.00 - 0.10 K/cumm [facility] Neutrophil pct 48.1 % [facility] Comment: Interpretive Data Percent cell count reference ranges are not reported, since discordance with absolute values may lead to misinterpretation of CBC data. Current Interpretive Data was last revised on 2017. Imm gran pct 0.4 % [facility] Comment: Interpretive Data Percent cell count reference ranges are not reported, since discordance with absolute values may lead to misinterpretation of CBC data. Current Interpretive Data was last revised on 2017. Lymphocyte pct 35.4 % [facility] Comment: Interpretive Data Percent cell count reference ranges are not reported, since discordance with absolute values may lead to misinterpretation of CBC data. Current Interpretive Data was last revised on 2017. Monocyte pct 11.8 % [facility] Comment: Interpretive Data Percent cell count reference ranges are not reported, since discordance with absolute values may lead to misinterpretation of CBC data. Current Interpretive Data was last revised on 2017. Eosinophil pct 2.8 % [facility] Comment: Interpretive Data Percent cell count reference ranges are not reported, since discordance with absolute values may lead to misinterpretation of CBC data. Current Interpretive Data was last revised on 2017. Basophil pct 1.5 % [facility] Comment: Interpretive Data Percent cell count reference ranges are not reported, since discordance with absolute values may lead to misinterpretation of CBC data. Current Interpretive Data was last revised on 2017. Blood 12/12/2024 4:37 AM CDT 12/12/2024 5:24 AM CDT Jada Sosa NP LAB BLOOD ORDERABLES Final Result [facility] [address] [facility] Department of Laboratories [place], [place] [id number] * (ABNORMAL) CBC with auto differential (12/12/2024 4:37 AM CDT) WBC 4.66 3.80 - 9.90 K/cumm Hgb 10.4(L) 13.0 - 17.5 g/dL [facility] Hct 32.5(L) 38.9 - 50.3 % [facility] Plt 481(H) 150 - 400 K/cumm [facility] MPV 8.7(L) 9.1 - 12.3 fL [facility] RBC 3.56(L) 4.30 - 5.80 M/cumm [facility] MCV 91.3 81.3 - 96.4 fL [facility] MCH 29.2 27.1 - 33.3 pg [facility] MCHC 32.0(L) 32.3 - 35.7 g/dL [facility] RDW CV 15.5(H) 11.1 - 14.9 % [facility] RDW SD 51.7(H) 35.7 - 48.1 fL [facility] NRBC abs 0.00 0.00 - 0.01 K/cumm [facility] Blood 12/12/2024 4:37 AM CDT 12/12/2024 5:24 AM CDT Jada Sosa CLINICAL WRITER LAB BLOOD ORDERABLES Final Result Performing Organization Address [facility] Co de Phone Number [address] [place] [employer] [address] * Magnesium (12/12/2024 4:37 AM CDT) [facility] Magnesium 1.9 1.4 - 2.5 mg/dL Blood 12/12/2024 4:37 AM CDT 12/12/2024 5:24 AM CDT Herb Huffman DO LAB BLOOD ORDERABLES Fi nal Result Performing Organization Address [facility] de Phone Number [address] [place] [address] * (ABNORMAL) Comprehensive metabolic panel (12/12/2024 4:37 AM CDT) Pathologist [facility] Sodium 139 135 - 145 mmol/L Potassium, pl 3.9 3.3 - 4.9 mmol/L [facility] Chloride 109 97 - 110 mmol/L [facility] CO2 23 22 - 32 mmol/L [facility] Anion gap 7 2 - 15 mmol/L [facility] BUN 5(L) 6 - 25 mg/dL [facility] Creatinine 0.88 0.80 - 1.30 mg/dL [facility] Glucose 107 70 - 199 mg/dL [facility] Comment: Interpretive Data Fasting glucose >/= [...] 2022. Calcium 8.6 8.5 - 10.3 mg/dL [facility] Bilirubin, total 0.2 0.1 - 1.2 mg/dL [facility] Protein, pl 5.4(L) 6.5 - 8.5 g/dL [facility] Albumin 3.3(L) 3.5 - 5.0 g/dL [facility] Alk phos 76 40 - 130 Units/L [facility] ALT 8 7 - 55 Units/L [facility] AST 15 10 - 50 Units/L [facility] Blood 12/12/2024 4:37 AM CDT 12/12/2024 5:24 AM CDT Herb Huffman DO LAB BLOOD ORDERABLES Fi nal Result [facility] [address] [facility] Department of Laboratories [place], [place] [id number] * eGFR (12/11/2024 5:24 AM CDT) eGFR [...] Sosa NP LAB BLOOD ORDERABLES Final Result [facility] [address] [facility] Department [place] [address] * Differential, auto (12/11/2024 5:24 AM CDT) Neutrophil abs 1.95 1.50 - 6.50 K/cumm Imm gran abs 0.03 0.00 - 0.10 K/cumm [facility] Lymphocyte abs 1.88 0.80 - 3.30 K/cumm [facility] Monocyte abs 0.47 0.20 - 0.80 K/cumm [facility] Eosinophil abs 0.16 0.00 - 0.50 K/cumm [facility] Basophil abs 0.08 0.00 - 0.10 K/cumm [facility] Neutrophil pct 42.6 % [facility] Comment: Interpretive Data Percent cell count reference ranges are not reported, since discordance with absolute values may lead to misinterpretation of CBC data. Current Interpretive Data was last revised on 2017. Imm gran pct 0.7 % [facility] Comment: Interpretive Data Percent cell count reference ranges are not reported, since discordance with absolute values may lead to misinterpretation of CBC data. Current Interpretive Data was last revised on 2017. Lymphocyte pct 41.1 % [facility] Comment: Interpretive Data Percent cell count reference ranges are not reported, since discordance with absolute values may lead to misinterpretation of CBC data. Current Interpretive Data was last revised on 2017. Monocyte pct 10.3 % [facility] Comment: Interpretive Data Percent cell count reference ranges are not reported, since discordance with absolute values may lead to misinterpretation of CBC data. Current Interpretive Data was last revised on 2017. Eosinophil pct 3.5 % [facility] Comment: Interpretive Data Percent cell count reference ranges are not reported, since discordance with absolute values may lead to misinterpretation of CBC data. Current Interpretive Data was last revised on 2017. Basophil pct 1.8 % [facility] Comment: Interpretive Data Percent cell count reference ranges are not reported, since discordance with absolute values may lead to misinterpretation of CBC data. Current Interpretive Data was last revised on 2017. Blood 12/11/2024 5:24 AM CDT 12/11/2024 6:02 AM CDT us Jada Sosa CLINICAL WRITER LAB BLOOD ORDERABLES Final Result [facility] [address] [facility] Department [place] [address] * (ABNORMAL) CBC with auto differential (12/11/2024 5:24 AM CDT) WBC 4.57 3.80 - 9.90 K/cumm Hgb 11.1(L) 13.0 - 17.5 g/dL [facility] Hct 34.9(L) 38.9 - 50.3 % [facility] Plt 520(H) 150 - 400 K/cumm [facility] MPV 8.5(L) 9.1 - 12.3 fL [facility] RBC 3.82(L) 4.30 - 5.80 M/cumm [facility] MCV 91.4 81.3 - 96.4 fL [facility] MCH 29.1 27.1 - 33.3 pg [facility] MCHC 31.8(L) 32.3 - 35.7 g/dL [facility] RDW CV 15.9(H) 11.1 - 14.9 % [facility] RDW SD 52.4(H) 35.7 - 48.1 fL [facility] NRBC abs 0.00 0.00 - 0.01 K/cumm [facility] Blood 12/11/2024 5:24 AM CDT 12/11/2024 6:02 AM CDT us Jada Sosa NP LAB BLOOD ORDERABLES Final Result [facility] [address] [facility] Department [place] [address] * Lipid panel (12/11/2024 5:24 AM CDT) [...] on 2018. Triglycerides 134 <=149 mg/dL [facility] Comment: Interpretive Data Ages [...] on 2018. HDL 49 >=40 mg/dL [facility] Comment: Interpretive Data Ages [...] 5:24 AM CDT 12/11/2024 6:02 AM CDT Melyssa Anderson MD LAB BLOOD ORDERABLES Final Result [place] [id number] [facility] [place] [address] * (ABNORMAL) Basic metabolic panel (12/11/2024 5:24 AM CDT) [facility] Sodium 140 135 - 145 mmol/L Potassium, pl 3.6 3.3 - 4.9 mmol/L [facility] Chloride 109 97 - 110 mmol/L [facility] CO2 20(L) 22 - 32 mmol/L [facility] Anion gap 11 2 - 15 mmol/L [facility] BUN 11 6 - 25 mg/dL [facility] Creatinine 0.95 0.80 - 1.30 mg/dL [facility] Glucose 79 70 - 199 mg/dL [facility] Comment: Interpretive Data Fasting glucose >/= [...] 2022. Calcium 8.8 8.5 - 10.3 mg/dL [facility] Blood 12/11/2024 5:24 AM CDT 12/11/2024 6:02 AM CDT Jada Sosa NP LAB BLOOD ORDERABLES Final Result [facility] [address] [facility] Department [place] [address] * (ABNORMAL) Sepsis Lactate w/ Reflex (12/10/2024 2:17 PM CDT) [facility] Sepsis Lactate 0.6(L) 0.7 - 2.0 mmol/L Blood 12/10/2024 2:17 PM CDT 12/10/2024 2:23 PM CDT Thania ROCA LAB BLOOD ORDERABLES Final Resul t Performing Organization Address City/[facility]/ZIP Co de Phone Number [facility] [address] [facility] Department [place] [address] * Blood culture Blood Peripheral (12/10/2024 11:22 AM CDT) Report Final Report: No growth Comment:Testing performed by : [facility], [address] [place] [address] Blood (Peripheral) 12/10/2024 11:22 AM CDT 12/10/2024 [...] performance characteristics have been verified by the [facility] Microbiology Laboratory. For questions about this culture, contact the Microbiology Laboratory at [phone]. Interpretive data was last revised on 24. Thania ROCA LAB MICROBIOLOGY - GENERAL ORDER DELIO Final Result Performing Organization Address City/[facility] Co de Phone Number [facility] [address] [facility] Department [place] [address] * Blood culture Blood Peripheral (12/10/2024 11:01 AM CDT) Report Final Report: No growth Comment:Testing performed by : [facility], [address] [place] [address] Blood (Peripheral) 12/10/2024 11:01 AM CDT 12/10/2024 [...] performance characteristics have been verified by the [facility] Microbiology Laboratory. For questions about this culture, contact the Microbiology Laboratory at [phone]. Interpretive data was last revised on 24. us Thania ROCA LAB MICROBIOLOGY - GENERAL ORDER DELIO Final Result [facility] [address] [facility] Department [place] [address] * XR Knee Right 1 or 2 [...] Servando Rachel D.O. PS T: Report ID: [id number] Reading Location: [place] [address] Procedure Note Servando Rachel, - 12/10/2024 EXAM [...] Servando Rachel D.O. PS T: Report ID: [id number] Reading Location: [id number] us Thania ROCA IMG XR PROCEDURES Final Result [...] 12/10/2024 10:49 AM - Electronically signed by Seravndo Rachel D.O. PS T: Report ID: [id number] Reading Location: [id number] Procedure Note Servando Rachel, - 12/10/2024 EXAM [...] Servando Rachel D.O. PS T: Report ID: [id number] Reading Location: [id number] us Thania ROCA IMG XR PROCEDURES Final Result * (ABNORMAL) Sepsis Lactate w/ Reflex (12/10/2024 10:11 AM CDT) Sepsis Lactate 2.4(H) 0.7 - 2.0 mmol/L Blood 12/10/2024 10:1 1 AM CDT 12/10/2024 10:17 AM CDT us Thania ROCA LAB BLOOD ORDERABLES Final Resul t [facility] [address] [facility] Department [place] [address] * CT Abdomen Pelvis W Contrast (12/10/2024 [...] and superior mesenteric vein. There is unchanged [id number] stenosis of the portal vein at the [...] Ravinder Harris M.D. MM T: Report ID: [id number] Reading Location: [id number] Procedure Note Ravinder Harris MD - 12/10/2024 [...] veinand superior mesenteric vein. There is unchanged [id number] stenosisof the portal vein at the aileen [...] Ravinder Harris M.D. MM T: Report ID: [id number] Reading Location: [place] [address] PROCEDURES Final Result * Urinalysis reflex to microscopic and culture Urine (12/10/2024 7:28 AM CDT) Color, ur Straw Yellow Clarity, ur Clear Clear [facility] Specific gravity, ur 1.006 1.003 - 1.030 [facility] pH, urine 6.0 [facility] Comment: Interpretive Data U rine pH is affected by diet, medications, systemic acid-base disturbances, and renal tubular function. pH may affect urinary stone formation. For example, urine pH below 6.0 may help reduce the tendency for calcium phosphate stones and pH greater than 6.0 may reduce the tendency for uric acid stone formation. Source: [facility] Current Interpretive Data was last revised on 2017 Protein, ur ql Negative Negative [facility] Glucose, ur ql Negative Negative [facility] Ketones, ur Negative Negative [facility] Bilirubin, ur Negative Negative [facility] Blood, ur Negative Negative [facility] Urobilinogen, ur <2.0 <2.0 mg/dL [facility] Nitrite, ur Negative Negative [facility] Leukocyte esterase, ur Negative Negative [facility] UA reflex comment Reflex conditions for microscopic UA and culture not met. [facility] Urine 12/10/2024 7:28 AM CDT 12/10/2024 7:37 AM CDT Juliaab Nabor ANAND LAB MICROBIOLOGY - GENERAL DEMARCO HWANG Final Result [facility] [address] [facility] Department [place] [address] * eGFR (12/10/2024 7:22 AM CDT) [facility] eGFR >90 >=60 mL/min/1. 73 [...] ANAND LAB BLOOD ORDERABLES Final Resu lt [facility] [address] [facility] Department [place] [address] * (ABNORMAL) Differential, auto (12/10/2024 7:22 AM CDT) Pathologist [facility] Neutrophil abs 9.80(H) 1.50 - 6.50 K/cumm Imm gran abs 0.15(H) 0.00 - 0.10 K/cumm [facility] Lymphocyte abs 2.71 0.80 - 3.30 K/cumm [facility] Monocyte abs 1.29(H) 0.20 - 0.80 K/cumm [facility] Eosinophil abs 0.13 0.00 - 0.50 K/cumm [facility] Basophil abs 0.12(H) 0.00 - 0.10 K/cumm [facility] Neutrophil pct 69.0 % [facility] Comment: Interpretive Data Percent cell count reference ranges are not reported, since discordance with absolute values may lead to misinterpretation of CBC data. Current Interpretive Data was last revised on 2017. Imm gran pct 1.1 % [facility] Comment: Interpretive Data Percent cell count reference ranges are not reported, since discordance with absolute values may lead to misinterpretation of CBC data. Current Interpretive Data was last revised on 2017. Lymphocyte pct 19.1 % [facility] Comment: Interpretive Data Percent cell count reference ranges are not reported, since discordance with absolute values may lead to misinterpretation of CBC data. Current Interpretive Data was last revised on 2017. Monocyte pct 9.1 % [facility] Comment: Interpretive Data Percent cell count reference ranges are not reported, since discordance with absolute values may lead to misinterpretation of CBC data. Current Interpretive Data was last revised on 2017. Eosinophil pct 0.9 % [facility] Comment: Interpretive Data Percent cell count reference ranges are not reported, since discordance with absolute values may lead to misinterpretation of CBC data. Current Interpretive Data was last revised on 2017. Basophil pct 0.8 % [facility] Comment: Interpretive Data Percent cell count reference ranges are not reported, since discordance with absolute values may lead to misinterpretation of CBC data. Current Interpretive Data was last revised on 2017. Blood 12/10/2024 7:22 AM CDT 12/10/2024 7:28 AM CDT us Rehab Nabor ANAND LAB BLOOD ORDERABLES Final Resu lt [facility] [address] [facility] Department [place] [address] * (ABNORMAL) CBC with auto differential (12/10/2024 7:22 AM CDT) WBC 14.20(H) 3.80 - 9.90 K/cumm Hgb 12.6(L) 13.0 - 17.5 g/dL [facility] Hct 38.4(L) 38.9 - 50.3 % [facility] Plt 758(H) 150 - 400 K/cumm [facility] MPV 8.1(L) 9.1 - 12.3 fL [facility] RBC 4.29(L) 4.30 - 5.80 M/cumm [facility] MCV 89.5 81.3 - 96.4 fL [facility] MCH 29.4 27.1 - 33.3 pg [facility] MCHC 32.8 32.3 - 35.7 g/dL [facility] RDW CV 15.8(H) 11.1 - 14.9 % [facility] RDW SD 51.3(H) 35.7 - 48.1 fL [facility] NRBC abs 0.00 0.00 - 0.01 K/cumm [facility] Blood Venous blood specimen / Unknown 12/10/2024 7:22 AM CDT 12/10/2024 7:28 AM CDT [facility] ANAND LAB BLOOD ORDERABLES Final Resu lt Performing Organization Address [facility] de Phone Number [address] [place] [address] * Lipase (12/10/2024 7:22 AM CDT) Pathologist [facility] Lipase 10 10 - 99 Units/L Blood Venous blood specimen / Unknown 12/10/2024 7:22 AM CDT 12/10/2024 7:28 AM CDT [facility] Nabor ANAND LAB BLOOD ORDERABLES Final Resu lt Performing Organization Address [facility] de Phone Number [address] [place] [address] * (ABNORMAL) Ethanol (12/10/2024 7:22 AM CDT) Pathologist [facility] Ethanol 147(H) <=10 mg/dL Comment: Interpretive Data Legal limit of intoxication > or = 80 mg/dL Levels > or = 400 mg/dL are potentially TOXIC. Current interpretive data was last revised on 2018. Blood 12/10/2024 7:22 AM CDT 12/10/2024 7:28 AM CDT us Thania ROCA LAB BLOOD ORDERABLES Final Resul t [facility] [address] [facility] Department [place] [address] * (ABNORMAL) Comprehensive metabolic panel (12/10/2024 7:22 AM CDT) Sodium 140 135 - 145 mmol/L Potassium, pl 3.7 3.3 - 4.9 mmol/L [facility] Comment:Hemolyzed; Potassium value may be falsely elevated by as much as 1.0 mmol/L. Suggest redraw and reanalysis. Chloride 107 97 - 110 mmol/L [facility] CO2 18(L) 22 - 32 mmol/L [facility] Anion gap 15 2 - 15 mmol/L [facility] BUN 11 6 - 25 mg/dL [facility] Creatinine 0.86 0.80 - 1.30 mg/dL [facility] Glucose 83 70 - 199 mg/dL [facility] Comment: Interpretive Data Fasting glucose >/= [...] 2022. Calcium 8.8 8.5 - 10.3 mg/dL [facility] Bilirubin, total 0.2 0.1 - 1.2 mg/dL [facility] Protein, pl 6.5 6.5 - 8.5 g/dL [facility] Albumin 3.9 3.5 - 5.0 g/dL [facility] Alk phos 89 40 - 130 Units/L [facility] ALT 10 7 - 55 Units/L [facility] AST 27 10 - 50 Units/L [facility] Comment:Hemolyzed; result ma y be falsely elevated Blood 12/10/2024 7:22 AM CDT 12/10/2024 7:28 AM CDT Alexandra Tomlin MD LAB BLOOD ORDERABLES Final Resu lt Performing Organization Address [facility] Co de Phone Number [facility] [address] [address] * Troponin T high-sensitivity 6-hour (11/29/2024 8:13 AM CDT) Pathologist [facility] Trop T hs 11 <=22 ng/L Comment: [...] delta. Trop T hs interp See Comment [facility] Comment:Inappropriate collec tion time to report a delta. Blood 11/29/2024 8:13 AM CDT 11/29/2024 8:26 AM CDT Victor Manuel Izquierdo MD LAB BLOOD ORDERABLE S Final Result Performing Organization Address [facility] Co de Phone Number [facility] [address] [place] [address] * eGFR (11/29/2024 8:13 AM CDT) [facility] eGFR >90 >=60 mL/min/1. 73 [...] MD LAB BLOOD ORDER DELIO Final Result [facility] [address] [facility] Department [place] [address] * (ABNORMAL) CBC without differential (11/29/2024 8:13 AM CDT) [facility] Signature WBC 8.04 3.80 - 9.90 K/cumm Hgb 11.3(L) 13.0 - 17.5 g/dL [facility] Hct 34.2(L) 38.9 - 50.3 % [facility] Plt 142(L) 150 - 400 K/cumm [facility] MPV 9.4 9.1 - 12.3 fL [facility] RBC 3.91(L) 4.30 - 5.80 M/cumm [facility] MCV 87.5 81.3 - 96.4 fL [facility] MCH 28.9 27.1 - 33.3 pg [facility] MCHC 33.0 32.3 - 35.7 g/dL [facility] RDW CV 14.1 11.1 - 14.9 % [facility] RDW SD 45.1 35.7 - 48.1 fL [facility] NRBC abs 0.00 0.00 - 0.01 K/cumm [facility] Blood 11/29/2024 8:13 AM CDT 11/29/2024 8:26 AM CDT Cheryl Snowden MD LAB BLOOD ORDER DELIO Final Result Performing Organization Address [facility] Co de Phone Number ELENA[address] [place] [address] * Lipase (11/29/2024 8:13 AM CDT) [facility] Lipase 66 10 - 99 Units/L Blood 11/29/2024 8:13 AM CDT 11/29/2024 8:26 AM CDT Manuelito Mccann MD LAB BLOOD ORDERABLES F inal Result Performing Organization Address [facility] de Phone Number [address] [address] * Ethanol (11/29/2024 8:13 AM CDT) [facility] Ethanol <10 <=10 mg/dL Comment: Interpretive Data Legal limit of intoxication > or = 80 mg/dL Levels > or = 400 mg/dL are potentially TOXIC. Current interpretive data was last revised on 2018. Blood 11/29/2024 8:13 AM CDT 11/29/2024 8:26 AM CDT Cheryl Snowden MD LAB BLOOD ORDER DELIO Final Result Performing Organization Address [facility] de Phone Number ELENA[address] [place] [address] * (ABNORMAL) Comprehensive metabolic panel (11/29/2024 8:13 AM CDT) [facility] Sodium 137 135 - 145 mmol/L Potassium, pl 3.3 3.3 - 4.9 mmol/L [facility] Chloride 102 97 - 110 mmol/L [facility] CO2 22 22 - 32 mmol/L [facility] Anion gap 13 2 - 15 mmol/L [facility] BUN 12 6 - 25 mg/dL [facility] Creatinine 0.71(L) 0.80 - 1.30 mg/dL [facility] Glucose 116 70 - 199 mg/dL [facility] Comment: Interpretive Data Fasting glucose >/= [...] 2022. Calcium 9.3 8.5 - 10.3 mg/dL [facility] Bilirubin, total 0.4 0.1 - 1.2 mg/dL [facility] Protein, pl 6.8 6.5 - 8.5 g/dL [facility] Albumin 3.5 3.5 - 5.0 g/dL [facility] Alk phos 130 40 - 130 Units/L [facility] ALT 11 7 - 55 Units/L [facility] AST 19 10 - 50 Units/L [facility] Blood 11/29/2024 8:13 AM CDT 11/29/2024 8:26 AM CDT Cheryl Snowden MD LAB BLOOD ORDER DELIO Final Result [facility] [address] [facility] [place] [address] * (ABNORMAL) Drugs of Abuse Screen, Urine with Reflex Confirmation (11/29/2024 5:22 AM CDT) Pathologist [facility] Amphetamine, ur Not Detected CutOff 500ng/mL Comment: Interpretive Data - Amphetamines: Samples containing greater than 500 ng/mL d-methamphetamine or other cross-reacting amphetamine compounds are reported as positive. Amphetamine immunoassays are subject to significant false positive rates due to cross-reactivity of non-amphetamine drugs. Confirmatory testing required for definitive results. Current Interpretive Data was last reviewed 2022. Barbiturates, ur Not Detected CutOff 200ng/mL [facility] Comment: Interpretive Data - Barbiturates: Samples containing greater than 200 ng/mL secobarbital or other cross-reacting barbiturate compounds are reported as positive. False positive and false negative results are possible. Confirmatory testing required for definitive results. Current Interpretive Data was last reviewed 2022. Benzodiazepines, ur Screen Positive, presumptive (A) CutOff 100ng/mL [facility] Comment: Interpretive Data - Benzodiazepines: Samples containing greater than 100 ng/mL nordiazepam or other cross-reacting compounds are reported as positive. False positive and false negative results are possible. Confirmatory testing required for definitive results. Current Interpretive Data was last reviewed 2022. Cannabinoids, ur Screen Positive, presumptive (A) CutOff 50 ng/mL [facility] Comment: Interpretive Data - Cannabinoids: Samples containing greater than 50 ng/mL delta-9 THC -COOH or other cross- reacting compounds are reported as positive. False positive and false negative results are possible. Confirmatory testing required for definitive results. Current Interpretive Data was last reviewed 2022. Cocaine, ur Not Detected CutOff 150ng/mL [facility] Comment: Interpretive Data - Cocaine: Samples containing greater than 150 ng/mL benzoylecgonine or other cross- reacting compounds are reported as positive. False positive and false negative results are possible. Confirmatory testing required for definitive results. Current Interpretive Data was last reviewed 2022. Fentanyl, Ur Not Detected CutOff 5 ng/mL [facility] Comment: Interpretive Data - Fentanyl: Samples containing greater than 5 ng/mL norfentanyl, fentanyl, or other cross-reacting fentanyl compounds are reported as positive. False positive and false negative results are possible. Confirmatory testing required for definitive results. Current Interpretive Data was last reviewed 2023. Methadone, ur Not Detected CutOff 300ng/mL [facility] Comment: Interpretive Data - Methadone: Samples containing greater than 300 ng/mL d,l-methadone or other cross-reacting compounds are reported as positive. False positive and false negative results are possible. Confirmatory testing required for definitive results. Current Interpretive Data was last reviewed 2022. Opiates, ur Screen Positive, presumptive (A) CutOff 300ng/mL [facility] Comment: Interpretive Data - Opiates: Samples [...] last reviewed 2022. Urine Creatinine 323 mg/dL [facility] Comment: Interpretive Data Urine Creatinine: < 10 mg/dL is extremely dilute = or > 10 but < 20 mg/dL is dilute = or > 20 mg/dL is normal Current Interpretive Data was last revised on 2017. Urine 11/29/2024 5:22 AM CDT 11/29/2024 5:34 AM CDT Narrative [facility] - 11/29/2024 6:07 AM CDT Drug of Abuse screening is performed by immunoassay for medical purposes only. This is not to be used for Pain Management purposes. If Detected, confirmation testing will be performed for Amphetamines, Cocaine, Fentanyl, Methadone, Opiates, Oxycodone or Phencyclidine. Cheryl Snowden MD LAB URINE ORDER DELIO Final Result [facility] [address] [facility] Department [place] [address] * (ABNORMAL) Opiates Confirmation, Urine (11/29/2024 5:22 AM CDT) Codeine Conf, Ur Does Not Confirm CutOff 50 ng/mL Comment:Testing performed by : [facility], [address] [place]., [address] 6- Acetylmorphine Conf, Ur Does Not Confirm CutOff 10 ng/mL [facility] Comment:Testing performed by : [facility], [address] [place]., [address] Hydrocodone Conf, Ur Does Not Confirm CutOff 50 ng/mL [facility] Comment:Testing performed by : [facility], [address] [place] [address] Morphine Conf, Ur Does Not Confirm CutOff 50 ng/mL [facility] Comment:Testing performed by : [facility], [address] [place] [address] Hydromorphone Conf, Ur Confirmed Positive(A) CutOff 50 [...] needed. Performance characteristics were determined by the [facility] in a manner consistent with CLIA requirement and has not been cleared or approved by the U.S. Food and Drug Administration. Current interpretive data was last revised 2020. Testing performed by: [facility], [address] [place]., [address] Urine 11/29/2024 5:22 AM CDT 11/29/2024 8:48 AM CDT Cheryl Snowden MD LAB URINE ORDER DELIO Final Result [facility] [address] [facility] Department [place] [address] * Troponin T high-sensitivity 4-hour (11/28/2024 10:27 PM CDT) Trop T hs 8 <=22 ng/L Comment: Interpretive Data For further hscTnT resources including the diagnostic algorithm and an aid in interpretation, copy and paste this link: https://nrl.testcatalog.org/show/hsTrop Current Interpretive Data last revised 2020. Trop T hs delta -2 ng/L [facility] Trop T hs interp Insignificant [facility] Blood 11/28/2024 10:2 7 PM CDT 11/28/2024 10:30 PM CDT Victor Manuel Izquierdo MD LAB BLOOD ORDERABLE S Final Result Performing Organization Address [facility] Co de Phone Number [facility] [address] [place] [address] * (ABNORMAL) Sepsis Lactate w/ Reflex (11/28/2024 10:20 PM CDT) Sepsis Lactate 0.5(L) 0.7 - 2.0 mmol/L Blood 11/28/2024 10:2 0 PM CDT 11/28/2024 10:23 PM CDT Victor Manuel Izquierdo MD LAB BLOOD ORDERABLE S Final Result Performing Organization Address [facility] de Phone Number [address] [address] * Troponin T high-sensitivity 2-hour (11/28/2024 9:02 PM CDT) Pathologist [facility] [place] Trop T hs 8 <=22 ng/L Comment: Interpretive Data For further hscTnT resources including the diagnostic algorithm and an aid in interpretation, copy and paste this link: https://nrl.testcatTaplister.org/show/hsTrop Current Interpretive Data last revised 2020. Trop T hs delta -2 ng/L [facility] Trop T hs interp Insignificant [facility] Blood 11/28/2024 9:02 PM CDT 11/28/2024 9:32 PM CDT Victor Manuel Izquierdo MD LAB BLOOD ORDERABLE S Final Result [facility] [address] [facility] Department [place] [address] * Lactate dehydrogenase (LD) (11/28/2024 9:02 PM CDT) Lactate dehydrogenase (LDH) 149 100 - 250 Units/L Blood 11/28/2024 9:02 PM CDT 11/28/2024 9:32 PM CDT us Victor Manuel Izquierdo MD LAB BLOOD ORDERABLE S Final Result Performing Organization Address City/State/[facility] Co de Phone Number [facility] [address] [facility] Department [place] [address] * CT Abdomen Pelvis W Contrast (11/28/2024 [...] fluid. No suspiciously enlarged lymph node. MSK: Fofc-ru-slbvmhui disc disease and facet arthropathy. Mild hip and SI joint arthrosis. BODY WALL: Bilateral inguinal hernia repairs. IMPRESSION: Moderate peripancreatic inflammation and ductal dilation appear similar to the 09/13/2024 prior. No abscess or other complication is seen. THIS IS AN ELECTRONICALLY VERIFIED FINAL REPORT 11/28/2024 8:41 PM - Electronically signed by Davi BRADLEY T: Report ID: [id number] Reading Location: [id number] Procedure Note Davi Kurtz MD - 11/28/2024 [...] fluid. No suspiciously enlarged lymph node. MSK: Umgd-ss-vmhrozjd disc disease and facet arthropathy. Mild hip andSI joint arthrosis. BODY WALL: Bilateral inguinal hernia repairs. IMPRESSION: Moderate peripancreatic inflammation and ductal dilationappear similar to the 09/13/2024 prior. No abscess or other complication isseen. THIS IS AN ELECTRONICALLY VERIFIED FINAL REPORT 11/28/2024 8:41 PM - Electronically signed by Davi Kurtz M.D. AR T: Report ID: [id number] Reading Location: [place] [address] Victor Manuel Izquierdo MD IMG CT PROCEDURES F inal Result * (ABNORMAL) Sepsis Lactate w/ Reflex (11/28/2024 7:00 PM CDT) [facility] Sepsis Lactate 2.4(H) 0.7 - 2.0 mmol/L Blood 11/28/2024 7:00 PM CDT 11/28/2024 7:03 PM CDT Victor Manuel Izquierdo MD LAB BLOOD ORDERABLE S Final Result [facility] [address] [facility] Department [place] [address] * Troponin T high-sensitivity series (baseline, 2hr, 4hr, 6hr) (11/28/2024 6:56 PM CDT) Pathologist [facility] [place] Trop T hs 10 <=22 ng/L Comment: Interpretive Data For further hscTnT resources including the diagnostic algorithm and an aid in interpretation, copy and paste this link: https://nrl.testcatalog.org/show/hsTrop Current Interpretive Data last revised 2020. Blood 11/28/2024 6:56 PM CDT 11/28/2024 7:03 PM CDT Victor Manuel Izquierdo MD LAB BLOOD ORDERABLE S Final Result Performing Organization Address [facility] Co de Phone Number [facility] [address] [place] [address] * eGFR (11/28/2024 6:56 PM CDT) eGFR >90 >=60 mL/min/1. 73 [...] ORDERABLE S Final Result Performing Organization Address City/[facility]/ZIP Co de Phone Number [facility] [address] [place] [address] * (ABNORMAL) Differential, auto (11/28/2024 6:56 PM CDT) Neutrophil abs 9.91(H) 1.50 - 6.50 K/cumm Imm gran abs 0.05 0.00 - 0.10 K/cumm [facility] Lymphocyte abs 0.63(L) 0.80 - 3.30 K/cumm [facility] Monocyte abs 1.19(H) 0.20 - 0.80 K/cumm [facility] Eosinophil abs 0.01 0.00 - 0.50 K/cumm [facility] Basophil abs 0.04 0.00 - 0.10 K/cumm [facility] Neutrophil pct 83.8 % [facility] Comment: Interpretive Data Percent cell count reference ranges are not reported, since discordance with absolute values may lead to misinterpretation of CBC data. Current Interpretive Data was last revised on 2017. Imm gran pct 0.4 % [facility] Comment: Interpretive Data Percent cell count reference ranges are not reported, since discordance with absolute values may lead to misinterpretation of CBC data. Current Interpretive Data was last revised on 2017. Lymphocyte pct 5.3 % [facility] Comment: Interpretive Data Percent cell count reference ranges are not reported, since discordance with absolute values may lead to misinterpretation of CBC data. Current Interpretive Data was last revised on 2017. Monocyte pct 10.1 % [facility] Comment: Interpretive Data Percent cell count reference ranges are not reported, since discordance with absolute values may lead to misinterpretation of CBC data. Current Interpretive Data was last revised on 2017. Eosinophil pct 0.1 % [facility] Comment: Interpretive Data Percent cell count reference ranges are not reported, since discordance with absolute values may lead to misinterpretation of CBC data. Current Interpretive Data was last revised on 2017. Basophil pct 0.3 % [facility] Comment: Interpretive Data Percent cell count reference ranges are not reported, since discordance with absolute values may lead to misinterpretation of CBC data. Current Interpretive Data was last revised on 2017. Blood 11/28/2024 6:56 PM CDT 11/28/2024 7:03 PM CDT us Victor Manuel Izquierdo MD LAB BLOOD ORDERABLE S Final Result [facility] [address] [place] [address] * (ABNORMAL) CBC with auto differential (11/28/2024 6:56 PM CDT) [facility] WBC 11.83(H) 3.80 - 9.90 K/cumm Hgb 12.9(L) 13.0 - 17.5 g/dL [facility] Hct 37.9(L) 38.9 - 50.3 % [facility] Plt 174 150 - 400 K/cumm [facility] MPV 9.8 9.1 - 12.3 fL [facility] RBC 4.38 4.30 - 5.80 M/cumm [facility] MCV 86.5 81.3 - 96.4 fL [facility] MCH 29.5 27.1 - 33.3 pg [facility] MCHC 34.0 32.3 - 35.7 g/dL [facility] RDW CV 14.1 11.1 - 14.9 % [facility] RDW SD 45.1 35.7 - 48.1 fL [facility] NRBC abs 0.00 0.00 - 0.01 K/cumm [facility] Blood Venous blood specimen / Unknown 11/28/2024 6:56 PM CDT 11/28/2024 7:03 PM CDT us Victor Manuel Izquierdo MD LAB BLOOD ORDERABLE S Final Result Performing Organization Address City/[facility]/ZIP Co de Phone Number [address] [address] * (ABNORMAL) Lipase (11/28/2024 6:56 PM CDT) [facility] Lipase 163(H) 10 - 99 Units/L Blood 11/28/2024 6:56 PM CDT 11/28/2024 7:03 PM CDT Victor Manuel Izquierdo MD LAB BLOOD ORDERABLE S Final Result [address] [address] * (ABNORMAL) Comprehensive metabolic panel (11/28/2024 6:56 PM CDT) Sodium 137 135 - 145 mmol/L Potassium, pl 3.5 3.3 - 4.9 mmol/L [facility] Chloride 98 97 - 110 mmol/L [facility] CO2 21(L) 22 - 32 mmol/L [facility] Anion gap 18(H) 2 - 15 mmol/L [facility] BUN 12 6 - 25 mg/dL [facility] Creatinine 0.76(L) 0.80 - 1.30 mg/dL [facility] Glucose 127 70 - 199 mg/dL [facility] Comment: Interpretive Data Fasting glucose >/= [...] 2022. Calcium 9.9 8.5 - 10.3 mg/dL [facility] Bilirubin, total 0.5 0.1 - 1.2 mg/dL [facility] Protein, pl 8.1 6.5 - 8.5 g/dL [facility] Albumin 4.0 3.5 - 5.0 g/dL [facility] Alk phos 171(H) 40 - 130 Units/L [facility] ALT 16 7 - 55 Units/L [facility] AST 20 10 - 50 Units/L [facility] Blood 11/28/2024 6:56 PM CDT 11/28/2024 7:03 PM CDT us Victor Manuel Izquierdo MD LAB BLOOD ORDERABLE S Final Result [facility] [address] [facility] [place] [address] * XR Chest 1 Vw Portable (If [...] 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 Notes chest pain to lower chest area. Endorses history of Pancreatitis Attacks that felt similar. 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 States normally drinks A couple of [...] Michael Smith M.D. KH T: Report ID: [id number] Reading Location: [id number] Procedure Note Michael Smith MD - 11/28/2024 EXAM DESCRIPTION: XR CHEST 1 VIEW REASON FOR STUDY: chest pain Pt bibems for complaint of chest pain, back pain, and abdominal pain. 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 Notes chest pain to lower chest area. Endorses history of Pancreatitis Attacks that felt similar. 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 States normally drinks Acouple of fifths [...] 11/28/2024 7:15 PM - Electronically signed by Mihcael Smith M.D. KH T: Report ID: [id number] Reading Location: [id number] Victor Manuel Izquierdo MD IMG XR PROCEDURES F inal Result * ECG 12 lead (11/28/2024 6:14 PM CDT) Ventricular Rate EKG/Min 124 BPM [facility] Atrial Rate 124 BPM [facility] NE-Interval (MSEC) 126 ms [facility] QRS-Interval (MSEC) 72 ms [facility] QT-Interval (MSEC) 322 ms [facility] QTc 462 ms [facility] P [place] 61 degrees [facility] R [place] 1 degrees [facility] T [place] 58 degrees [facility] Diagnosis Sinus tachycardia Possible Left atrial enlargement Borderline ECG When compared with ECG of 16-AUG-2024 01:04, No significant change was found Confirmed by SHRUTHI PONCE M.D. ([id number]) on 12/03/2024 6:06:17 PM [facility] 11/28/2024 6:14 PM CDT 12/03/2024 6:06 PM CDT Victor Manuel Izquierdo MD ECG ORDERABLES Fin al Result [facility] * Hepatitis C antibody Blood (08/15/2024 11:28 PM CDT) Hep C Ab Nonreactive Nonreactive Comment:Antibodies to HCV no t detected. Does NOT exclude the possibility of recent exposure to HCV. Current interpretive data was last revised on 22 Blood 08/15/2024 11:2 8 PM CDT 08/15/2024 11:33 PM CDT us John De Anda MD LAB MICROBIOLOGY - GENERAL ORDERABLES Final Result [facility] Department [place] [address] from Last 3 Months or Most Recently Relevant to Health Maintenance Insurance [facility] MEDICARE [facility]ANT[facility] MEDIC[facility] Address: [address] [address] [place] [address] [facility] CIGNA [facility] MEDICARE ADVANTAGE [facility] MEDIC[facility] Address: [address] [address] [place] [address] Advance Directives For more information, please contact: [phone] * Full Code (Latest Code Status on File) Date Activated Date Inactivated Comments 01/07/2025 6:20 PM 01/10/2025 6:32 PM * Full Code Date Activated Date Inactivated Comments 12/31/2024 6:18 AM 01/03/2025 11:45 PM * Full Code Date Activated Date Inactivated Comments 12/10/2024 3:31 PM 12/18/2024 6:37 PM * Full Code Date Activated Date Inactivated Comments 11/29/2024 12:19 AM 12/04/2024 4:47 PM * Full Code Date Activated Date Inactivated Comments 09/13/2024 5:18 PM 09/19/2024 4:27 PM Care Teams Dry Pan Charger Relationship Specialty Start Date End Date Ronnell Escobar NP [address] [address] PCP - General Nurse Practitioner 08/16/24
--- OUTSIDE RECORDS SUMMARY | 2025-01-14 14:04 | XMS_ITS | Clinical Summary ---
Author Organization [facility] Address [address], [facility] [address] [place] [address] Phone Care Team Providers Care Lithographic Photographer Apprentice Name Role Phone Lamberto Barker Nasra RUCKER Primary Care Provider [phone] Social History Tobacco Use Types Packs/Day Years Used Date Smoking Tobacco: Never Assessed Sex and Gender Information Value Date Recorded Sex Assigned at Not on file Legal Sex Male 8:46 AM CDT Gender Identity Not on file Sexual Orientation Not on file Plan of Treatment Not on file Insurance [facility] MEDICARE C [employer] Care Teams Lithographic Photographer Apprentice Relationship Specialty Start Date End Date Lamberto Barker DO [address] [place] [address] PCP - General Internal Medicine 09/18/19
--- OUTSIDE RECORDS SUMMARY | 2025-01-14 14:04 | XMS_ITS | Encounter Summary ---
Author Organization [facility] Healthcare Address [address] [place] [address] Care Team Providers Care Supervisor Of Guidance And Testing Name Role Phone Don Walton Primary Care Provider Ronnell Escobar NP Primary Care Provider [phone] Savanah Galvez RN Unavailable [phone] Encounter Details Date Type Department Care Team (Late st Contact Info) Description 01/25/2022 Orders Only [facility] [address] [place] [phone] Jordana Chambers MD [address] [place] [id number] Social History Tobacco Use Types Packs/Day [...] often do you attend chur ch or gnosticist services? 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 difficile suspected 08/16/2024 08/16/202408/16 2:48 [...] as of this encounter Care Teams Supervisor Of Guidance And Testing Relationship Specialty Start Date End Date Don Walton PA [address] [place], [place] [id number] PCP - General Physician Services Executive 12/28/21 08/15/24 Ronnell Escobar NP [address] [place] [address] PCP - General Nurse Practitioner 08/16/24 Savanah Galvez, RN [address] [facility] [address] [place] [address] SHOP Outpatient Lodge Attendant 08/22/24 08/25/24 documented as of this encounter
--- OUTSIDE RECORDS SUMMARY | 2025-01-14 14:04 | XMS_ITS | Patient Health Record ---
Author Organization [facility] As Future[employer]visor [facility] Address [address] [facility] [address] [facility] [address] [place] [address] Care Team Providers Care Mooner Name Role Phone Hipolito Arevalo Unavailable [phone] Reason For Referral No Information Medications Medication SIG (Take, Route, Frequency, Duration) Notes Start Date End Date Status metroNIDAZOLE 500 MG Tablet Oral Active Pantoprazole Sodium 40 MG Tablet Delayed Release Oral Activ e Nicotine 14 MG/24HR Patch 24 Hour Transdermal Active Fenofibrate 160 MG Tablet Oral Active chlordiazePOXIDE HCl 25 MG Capsule Oral Active Clindamycin HCl 150 MG Capsule Oral Active Lisinopril 40 MG Tablet Oral Active Disulfiram 500 mg Tablet Oral Active HYDROcodone-Acetaminophen 5-325 MG Tablet Oral Active Mirtazapine 15 MG Tablet Oral Active Naltrexone HCl 50 MG Tablet Oral Active Plan Of Treatment No Information Insurance Providers Payer Name Payer Address Payer Phone Subscriber Number Group Number Insured Name Patient Relationship to Insured Coverage Start Date Coverage End Date [facility] [address] [place] [address] [id number] M[place]O VALDES Self - patient is the insured
--- NOTE | 2025-01-14 15:46 | PC.NURSE ---
Patient continues to remove ECG leads, pulse ox and BP cuff. Provider aware. patient refuses to let this RN put them back on.
--- NOTE | 2025-01-14 18:09 | PC.NURSE ---
Patient ambulating per verbal order from Dr Stevens. Patient unable to ambulate without assistance.
[2025-01-14] MEDS: ONDANSETRON INJ 4 MG/2 ML VIAL IV PUSH (20:12)
[2025-01-14] MEDS: ACETAMINOPHEN 500 MG TABLET 1000 MG PO (20:13)
[2025-01-15] VITALS (21 sets, daily range): PULSE 78–94; RESP 12–23
== END 2025-01-15 05:22 | disposition home or self-care (01) ==
PROVIDERS: Emergency Provider Student in an Organized Health Care Education/Training Program; PCP Nurse Practitioner
DX: F10.220 Alcohol dependence with intoxication, uncomplicated (principal); Y90.9 Presence of alcohol in blood, level not specified; I10 Essential (primary) hypertension; E78.00 Pure hypercholesterolemia, unspecified; K21.9 Gastro-esophageal reflux disease without esophagitis; M81.0 Age-related osteoporosis without current pathological fracture; M19.90 Unspecified osteoarthritis, unspecified site; F17.200 Nicotine dependence, unspecified, uncomplicated; Z86.711 Personal history of pulmonary embolism; Z87.11 Personal history of peptic ulcer disease; Z79.899 Other long term (current) drug therapy
CPT/HCPCS: 36415; 70450; 71046; 80053; 83605; 83690; 83880; 84484; 85025; 93005; 96361; 96374; 99284; A9270; J2405; J7030